=== PATIENT | male | born 1955 | race Caucasian/White ===

== ENCOUNTER 2021-05-10 23:14 | Inpatient (IN) | payer BC ==
--- OUTSIDE RECORDS SUMMARY | 2021-05-10 23:34 | XMS REPORT | Continuity of Care Document ---
:1955 Author Organization [facility] t Address [address] [place] [address] Care Team Providers Name Role Phone DOV Ty DR Primary Care Physician FANY SANTAMARIA Attending Clinician Unavailable Fany Santamaria MD Attending Clinician Petros Peck DO Attending Clinician Danette Bingham Attending Clinician Roger BELLO Attending Clinician Thomas Fajardo MD Attending Clinician Michael BELLO Attending Clinician Yenifer BELLO Attending Clinician Maura BELLO Attending Clinician Sidra Fowler CRNA Attending Clinician Singer SHEPHERD Attending Clinician Doctor Unassigned, Name Attending Clinician Unavailable Herminio BELLO Attending Clinician [facility] Attending Clinician Unavailable Juli Scott MD Attending Clinician Skylar BELLO Attending Clinician Kamaljit SCHERER M Attending Clinician Marco MD, S Attending Clinician Ramiro Lu CRNA Attending Clinician DR DOV Attending Clinician Unavailable LOLY Attending Clinician Unavailable DR DOV Attending Clinician Unavailable MICHAEL Admitting Clinician Unavailable Michael BELLO Admitting Clinician DR DOV Admitting Clinician Unavailable LOLY Admitting Clinician Unavailable Payers Payer Name Policy Type Policy Number Effective Date Expiration Date S shan IZQUIERDO BCBS BLUE [id number] 2020 ADVANTAGE O 00:00:00 Problems Condition Condition Condition Status Onset Resolution Last Treating Co mments Source Name Details Category Date Date Treatment Clinician Date Stroke Stroke Disease Active 2020-04 Univers determined determined 2-15 it y of by by 00:00: [place] clinical clinical 00 Medica l assessment assessment Br anch Right leg Right leg Disease Active 2020-04 Uni vers weakness weakness 2-11 ity of 00:00: [place] 00 Medical Branch E44.0 E44.0 Disease Active 2020-04 Univers Moderate Moderate 2-06 ity of protein protein 00:00: [place] calorie calorie 00 Medical malnutriti malnutriti Br anch on on Coffee Coffee Disease Active 2020-04 Overview: [facility] s ground ground 2-05 Formattin ity of emesis emesis 00:00: g of this [place] 00 note Medical might be Branch different from the original. 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 00:00: [place] advice advice 00 l (LUF/LI V/SA) Allergies, Adverse Reactions, Alerts Allergy Allergy Status Severity Reaction(s) Onset Inactive Treating Comm ents Source Name Type Date Date Clinician NO KNOWN Drug Active Univers ALLERGIE Class ity of S [facility] Family History Family Member Diagnosis Comments Start Date Stop Date Source Natural father Cancer [facility] Natural father High cholesterol Univ ersity [facility] [place] Natural father Hypertension Universi ty of [facility] Natural mother Cancer [facility] Natural mother Stroke [facility] Social History Social Habit Start Date Stop Date Quantity Comments Source History of tobacco Cigarette Smoker University use [facility] Exposure to Unable to assess Univers ity of SARS-CoV-2 (event) [facility] History [facility] o f Alcohol Frequency [facility] History [facility] o f Alcohol Std Drinks [facility] History [facility] o f Alcohol Binge [facility] Alcohol intake 2021-03-31 2021-03-31 Ex-drinker University 00:00:00 00:00:00 (finding) [facility] Education 2021-03-15 2021-03-15 21 University 00:00:00 00:00:00 [facility] Alcohol Comment 2021-03-02 2021-03-02 Socially Universit y of 00:00:00 00:00:00 [facility] Cigarettes smoked 2021-02-09 2021-02-09 Univers ity of current (pack per 00:00:00 00:00:00 [facility] ) - Reported Branch Cigarette 2021-02-09 2021-02-09 University of pack-years 00:00:00 00:00:00 [facility] Tobacco use and 2021-02-09 2021-02-09 Former user Universi ty of exposure 00:00:00 00:00:00 [facility] Sex [birth year] Universit y of 00:00:00 00:00:00 [facility] Smoking Status Start Date Stop Date Source Never smoker [facility] (LUF/SOUTH/SA) Former smoker 2021-02-09 00:00:00 2021-02-09 00:00:00 Universi ty of [place] [facility] Medications Ordered Filled Start Stop Current Ordering Indication Dosage Frequency Signature Comments Components Source Medication Medication Date Date Medication? Clinician (SIG) Name Name ascorbic 2020-04 Yes 500mg Take 500 Univ ers acid, 2-28 mg by ity of vitamin C, 17:17: mouth. [place] 500 mg 40 Medical tablet Branch cholecalcif 2020-04 Yes 5000U Take 5,000 Univers boy, 2-28 Units by ity of vitamin D3, 17:17: [place]. [place] 25 mcg 40 Medical (1,000 Branch unit) tablet ascorbic 2020-04 Yes 500mg Take 500 Univ ers acid, 2-28 mg by ity of vitamin C, 17:17: mouth. [place] 500 mg 40 Medical tablet Branch cholecalcif 2020-04 Yes 5000U Take 5,000 Univers boy, 2-28 Units by ity of vitamin D3, 17:17: mouth. [place] 25 mcg 40 Medical (1,000 Branch unit) tablet ascorbic 2020-04 Yes 500mg Take 500 Univ ers acid, 2-28 mg by ity of vitamin C, 17:17: mouth. [place] 500 mg 40 Medical tablet Branch cholecalcif 2020-04 Yes 5000U Take 5,000 Univers boy, 2-28 Units by ity of vitamin D3, 17:17: mouth. [place] 25 mcg 40 Medical (1,000 Branch unit) tablet ascorbic 2020-04 Yes 500mg Take 500 Univ ers acid, 2-28 mg by ity of vitamin C, 17:17: mouth. [place] 500 mg 40 Medical tablet Branch cholecalcif 2020-04 Yes 5000U Take 5,000 Univers boy, 2-28 Units by ity of vitamin D3, 17:17: mouth. [place] 25 mcg 40 Medical (1,000 Branch unit) tablet pantoprazol 2020-04 Yes [id number] 40mg Take 20 mL Univers e 2 mg/mL 2-28 through ity of oral 00:00: enteral [place] suspension 00 tube 2 Medical (two) Branch times daily. pantoprazol 2020-04 Yes [id number] 40mg Take 20 mL Univers e 2 mg/mL 2-28 through ity of oral 00:00: enteral [place] suspension 00 tube 2 Medical (two) Branch times daily. pantoprazol 2020-04 Yes [id number] 40mg Take 20 mL Univers e 2 mg/mL 2-28 through ity of oral 00:00: enteral [place] suspension 00 tube 2 Medical (two) Branch times daily. amLODIPine 2020-04- Yes [id number] 10mg Take 1 Univers 10 mg 2-28 12-24 tablet ity of tablet 00:00: 05:59 through [place] 00 :00 enteral Medical tube daily Branch for 360 days. polyethylen 2020-04- Yes [id number] 17g Take 1 Univers e glycol 2-28 12-24 Packet ity of 3350 17 00:00: 05:59 through [place] gram powder 00 :00 enteral Medic al tube daily Branch for 360 days. modafiniL 2020-04- Yes [id number] 100mg Take 1 Univers 100 mg 2-28 12-24 tablet ity of tablet 00:00: 05:59 through [place] 00 :00 enteral Medical tube daily Branch for 360 days. FLUoxetine 2020-04- Yes [id number] 10mg Take 2.5 Univers 20 mg/5 mL 2-28 12-24 mL through it y of (4 mg/mL) 00:00: 05:59 enteral [place] solution 00 :00 tube daily Medic al for 360 Branch days. docusate 50 2020-04- Yes [id number] 100mg Take 10 mL Univers mg/5 mL 2-28 12-24 through ity of solution 00:00: 05:59 enteral [place] 00 :00 tube daily Medical for 360 Branch days. amLODIPine 2020-04- Yes [id number] 10mg Take 1 Univers 10 mg 2-28 12-24 tablet ity of tablet 00:00: 05:59 through [place] 00 :00 enteral Medical tube daily Branch for 360 days. polyethylen 2020-04- Yes [id number] 17g Take 1 Univers e glycol 2-28 12-24 Packet ity of 3350 17 00:00: 05:59 through [place] gram powder 00 :00 enteral Medic al tube daily Branch for 360 days. modafiniL 2020-04- Yes [id number] 100mg Take 1 Univers 100 mg 2-28 12-24 tablet ity of tablet 00:00: 05:59 through [place] 00 :00 enteral Medical tube daily Branch for 360 days. FLUoxetine 2020-04- Yes [id number] 10mg Take 2.5 Univers 20 mg/5 mL 2- 12-24 mL through it y of (4 mg/mL) 00:00: 05:59 enteral [place] solution 00 :00 tube daily Medic al for 360 Branch days. docusate 50 2020-04- Yes [id number] 100mg Take 10 mL Univers mg/5 mL - 12-24 through ity of solution 00:00: 05:59 enteral [place] 00 :00 tube daily Medical for 360 Branch days. amLODIPine 2020-04- Yes [id number] 10mg Take 1 Univers 10 mg - 12-24 tablet ity of tablet 00:00: 05:59 through [place] 00 :00 enteral Medical tube daily Branch for 360 days. polyethylen 2020-04- Yes [id number] 17g Take 1 Univers e glycol 06-08-24 Packet ity of 3350 17 00:00: 05:59 through [place] gram powder 00 :00 enteral Medic al tube daily Branch for 360 days. modafiniL 2020-04- Yes [id number] 100mg Take 1 Univers 100 mg - 12-24 tablet ity of tablet 00:00: 05:59 through [place] 00 :00 enteral Medical tube daily Branch for 360 days. FLUoxetine 2020-04- Yes [id number] 10mg Take 2.5 Univers 20 mg/5 mL - 12-24 mL through it y of (4 mg/mL) 00:00: 05:59 enteral [place] solution 00 :00 tube daily Medic al for 360 Branch days. docusate 50 2020-04- Yes [id number] 100mg Take 10 mL Univers mg/5 mL - 12-24 through ity of solution 00:00: 05:59 enteral [place] 00 :00 tube daily Medical for 360 Branch days. pantoprazol 2020-04- No [id number] 40mg Take 20 mL Univers e 2 mg/mL 06-08-28 through ity of oral 00:00: 00:00 enteral [place] suspension 00 :00 tube 2 Medical (two) Branch times daily. amLODIPine 2020-04- No 10mg Take 10 mg Univers 10 mg 06-07-27 by mouth. ity of tablet 13:44: 00:00 [place] 38 :00 Medical Branch chlorthalid 2020-04- No 25mg Take 25 mg Univers one 25 mg 06-07- by mouth. ity of tablet 13:44: 00:00 [place] 38 :00 [facility] Branch metformin 2020-04- No 750mg Take 750 Un dariela ER 750 mg - 12-27 mg by ity of 24 hr 13:44: 00:00 mouth. [place] tablet 38 :00 Medical Branch clopidogreL 2020-04- No 75mg Take 75 mg Univers 75 mg 06-07- by mouth. ity of tablet 13:44: 00:00 [place] 38 :00 [facility] Branch carvediloL 2020-04- No 25mg Take 25 mg Univers (COREG) 25 06-07 by mouth 2 it y of mg tablet 13:44: 00:00 (two) [place] 37 :00 times Medical daily with [place] meals. atorvastati 2020-04- Yes [id number] 40mg Take 1 Univers n 40 mg 06-07 tablet ity of tablet 00:00: 05:59 through [place] 00 :00 enteral Medical tube at [place] bedtime for 360 days. carvedilol 2020-04- Yes [id number] 25mg Take 20 mL Univers 1.25 mg/mL 06-07 through ity o f oral 00:00: 05:59 enteral [place] suspension 00 :00 tube 2 Medical (two) Branch times daily with meals for 360 days. ticagrelor 2020-04- Yes [id number] 90mg Take 1 Univers 90 mg 06-07 tablet ity of tablet 00:00: 05:59 through [place] 00 :00 enteral Medical tube 2 Branch (two) times daily for 360 days. tamsulosin 2020-04- Yes [id number] .4mg Take 1 Univers 0.4 mg 24 06-07- capsule by ity of hr capsule 00:00: 05:59 mouth 2 [place] 00 :00 (two) Medical times Branch daily for 360 days. KCL 20 2020-04- Yes [id number] 20meq Take 15 mL Univers mEq/15 mL 06-07 through ity of solution 00:00: 05:59 enteral [place] 00 :00 tube 2 Medical (two) Branch times daily for 360 days. atorvastati 2020-04- Yes [id number] 40mg Take 1 Univers n 40 mg -06 04-23 tablet ity of tablet 00:00: 05:59 through [place] 00 :00 enteral Medical tube at Branch bedtime for 360 days. carvedilol 2020-04- Yes [id number] 25mg Take 20 mL Univers 1.25 mg/mL 06-07- through ity o f oral 00:00: 05:59 enteral [place] suspension 00 :00 tube 2 Medical (two) Branch times daily with meals for 360 days. ticagrelor 2020-04- Yes [id number] 90mg Take 1 Univers 90 mg - 12- tablet ity of tablet 00:00: 05:59 through [place] 00 :00 enteral Medical tube 2 Branch (two) times daily for 360 days. tamsulosin 2020-04- Yes [id number] .4mg Take 1 Univers 0.4 mg 24 06-07 capsule by ity of hr capsule 00:00: 05:59 mouth 2 [place] 00 :00 (two) Medical times Branch daily for 360 days. KCL 20 2020-04- Yes [id number] 20meq Take 15 mL Univers mEq/15 mL 06-07 through ity of solution 00:00: 05:59 enteral [place] 00 :00 tube 2 Medical (two) Branch times daily for 360 days. atorvastati 2020-04- Yes [id number] 40mg Take 1 Univers n 40 mg -06 04- tablet ity of tablet 00:00: 05:59 through [place] 00 :00 enteral Medical tube at Branch bedtime for 360 days. carvedilol 2020-04- Yes [id number] 25mg Take 20 mL Univers 1.25 mg/mL 06-07-23 through ity o f oral 00:00: 05:59 enteral [place] suspension 00 :00 tube 2 Medical (two) Branch times daily with meals for 360 days. ticagrelor 2020-04- Yes [id number] 90mg Take 1 Univers 90 mg - 12-23 tablet ity of tablet 00:00: 05:59 through [place] 00 :00 enteral Medical tube 2 Branch (two) times daily for 360 days. tamsulosin 2020-04- Yes [id number] .4mg Take 1 Univers 0.4 mg 24 06-07 capsule by ity of hr capsule 00:00: 05:59 mouth 2 [place] 00 :00 (two) Medical times Branch daily for 360 days. KCL 20 2020-04- Yes [id number] 20meq Take 15 mL Univers mEq/15 mL 06-07 through ity of solution 00:00: 05:59 enteral [place] 00 :00 tube 2 Medical (two) Branch times daily for 360 days. pantoprazol 2020-04- No [id number] 40mg Take 20 mL Univers e 2 mg/mL 06-07 through ity of oral 00:00: 00:00 enteral [place] suspension 00 :00 tube 2 Medical (two) Branch times daily for 360 days. pantoprazol 2020-04 Yes 40mg 40 mg, Univ ers e 06-06 Enteral, ity of (PROTONIX) 02:00: BID, First [place] 2 mg/mL 00 dose on Medical oral Sat Branch suspension 04/04/21 40 mg at 2000, Until Discontinu ed, Routine ticagrelor 2020-04 Yes 90mg 90 mg, Unive rs (BRILINTA) 06-04 Oral, BID, ity of tablet 90 02:00: First dose [place] mg 00 on Evi Medical 04/02/21 Branch at 2000, Until Discontinu ed, Routine clopidogreL 2020-04 Yes 75mg 75 mg, Univ ers (PLAVIX) 06-01 Enteral, ity of tablet 75 23:00: DAILY AT [place] mg 00 1700, Medical First dose Branch on Tue03/31/21 at 1700, Until Discontinu ed, Routine clopidogreL 2020-04- No 75mg 75 mg, Uni vers (PLAVIX) 06-01 Enteral, ity of tablet 75 23:00: 21:08 DAILY AT [place] mg 00 :26 1700, Medical First dose Branch on Tue03/31/21 at 1700, Until Discontinu ed, Routine modafiniL 2020-04 Yes 100mg 100 mg, Univ ers (PROVIGIL) 06-01 Enteral, ity o f tablet 100 15:00: DAILY, [place] mg 00 First dose Medical (after Branch last modificati on) on Tue03/31/21 at 0900, Until Discontinu ed, Routine
film crew member approving Non-formul hank medication : JIA SANTAMARIA RA
R dwight for non-formul hank use: SPECIFIC INDICATION FOR NONFORMULA RY PRODUCT modafiniL 2020-04 Yes 100mg 100 mg, Univ ers (PROVIGIL) 2- Enteral, ity o f tablet 100 15:00: DAILY, [place] mg 00 First dose Medical (after Branch last modificati on) on Tue03/31/21 at 0900, Until Discontinu ed, Routine
film crew member approving Non-formul hank medication : JIA SANTAMARIA RA
R dwight for non-formul hank use: SPECIFIC INDICATION FOR NONFORMULA RY PRODUCT magnesium 2020-04 2g 2 g, IV Univ ers sulfate in 05-31 Piggyback, it y of water 2 14:00: 13:35 ONCE, 1 [place] gram/50 mL 00 :00 dose, On Medic al (4 %) Mon Branch infusion 2 03/30/21 g at 0800, Routine carvediloL 2020-04 Yes 25mg Take 25 mg U nivers (COREG) 25 2-20 by mouth 2 ity of mg tablet 13:14: (two) [place] 23 times Medical daily with Branch meals. NaCl 0.9% 2020-04 Yes IV Univers (NS) 1000 - Infusion, ity o f mL + KCL 20 15:45: at 100 [place] mEq 00 mL/hr, Medical CONTINUOUS Branch , Starting on Tue03/29/21 at 0945, Until Discontinu ed, Routine NaCl 0.9% 2020-04 Yes IV Univers (NS) 1000 2- Infusion, ity o f mL + KCL 20 15:45: at 100 [place] mEq 00 mL/hr, Medical CONTINUOUS Branch , Starting on Tue03/29/21 at 0945, Until Discontinu ed, Routine iron 2020-04 No 1000mg 1,000 mg, Unive rs dextran -29 03- IV ity of (INFED) 14:45: 19:30 Infusion, [place] 1,000 mg in 00 :00 ONCE, 1 Medic al NaCl 0.9% dose, On Branch (NS) 500 mL Sun IV infusion 03/29/21 at 0845, Administer over 1.5 Hours, 500 mL pantoprazol 2020-04 Yes 8mg/h 8 mg/hr Un dariela e 18 (50 ity of (PROTONIX) 05:00: mL/hr), IV [place] 80 mg in 00 Infusion, Medica l NaCl 0.9% CONTINUOUS Bran ch (NS) 500 mL , Starting infusion on Tue03/27/21 at 2300 pantoprazol 2020-04- No 8mg/h 8 mg/hr U nivers e 05-29 (50 ity of (PROTONIX) 05:00: 16:19 mL/hr), IV [place] 80 mg in 00 :21 Infusion, Medica l NaCl 0.9% CONTINUOUS Bran ch (NS) 500 mL , Starting infusion on Tue03/27/21 at 2300 NaCl 0.9% 2020-04 No 500mL at 999 Univ ers (NS) bolus 05-29 mL/hr, 500 it y of infusion 04:00: 03:31 mL, IV [place] 500 mL 00 :00 Piggyback, Medical ONCE, 1 Branch dose, On Tue03/27/21 at 2200, STAT pantoprazol 2020-04 No 40mg 40 mg, Uni vers e 05-29 Slow IV ity of (PROTONIX) 03:00: 03:47 Push, [place] injection 00 :01 Q12H, Medical 40 mg First dose Branch on Tue03/27/21 at 2100, Until Discontinu ed iopamidol 2020-04- No [id number] 90mL 90 mL, Univers (ISOVUE 05-28 Intravenou ity o f 300-500 mL) 22:00: 20:07 s, ONCE, 1 [place] injection 00 :00 dose, On Medica l 90 mL Fri Branch 03/27/21 at 1600, Routine famotidine 2020-04- No 40mg 40 mg, IV U nivers (PEPCID) 40 05-27 Piggyback, i ty of mg in NaCl 20:30: 16:03 Q24H, [place] 0.9% (NS) 00 :11 First dose Medi jaspal infusion on [facility] Branch 03/26/21 at 1430, Until Discontinu ed, Administer over 30 Minutes, 100 mL glycerin/mi 2020-04 225mL 225 mL, U nivers neral oil -26 03- Rectal, ity of (AGLO 20:30: 21:32 ONCE, 1 [place] ENEMA) 00 :00 dose, On Medical ([facility]OUNDED [facility] ) Enem 225 03/26/21 mL at 1430, Routine FLUoxetine 2020-04 Yes 10mg 10 mg, Unive rs (PROZAC) 20 2-16 Enteral, ity of mg/5 mL (4 15:00: DAILY, [place] mg/mL) 00 First dose Medical solution 10 (after Branch mg last modificati on) on [facility] 03/26/21 at 0900, Until Discontinu ed, Routine FLUoxetine 2020-04 Yes 10mg 10 mg, Unive rs (PROZAC) 20 2-16 Enteral, ity of mg/5 mL (4 15:00: DAILY, [place] mg/mL) 00 First dose Medical solution 10 (after Branch mg last modificati on) on [facility] 03/26/21 at 0900, Until Discontinu ed, Routine clopidogreL 2020-04 75mg 75 mg, Uni vers (PLAVIX) 2-16 -16 Enteral, ity of tablet 75 15:00: 20:56 DAILY, [place] mg 00 :58 First dose Medical (after Branch last modificati on) on [facility] 03/26/21 at 0900, Until Discontinu ed, Routine tamsulosin 2020-04 Yes .4mg 0.4 mg, Univ ers (FLOMAX) 2-16 Oral, BID, ity o f capsule 0.4 02:00: First dose [place] mg 00 (after Medical last Branch modificati on) on Tue03/25/21 at 2000, Until Discontinu ed, Routine KCL 20 2020-04 Yes 20meq 20 mEq, Univers mEq/15 mL 2-16 Enteral, ity of solution 20 02:00: BID, First [place] mEq 00 dose Medical (after Branch last modificati on) on Tue03/25/21 at 2000, Until Discontinu ed, Routine tamsulosin 2020-04 Yes .4mg 0.4 mg, Univ ers (FLOMAX) 2-16 Oral, BID, ity o f capsule 0.4 02:00: First dose [place] mg 00 (after Medical last Branch modificati on) on Tue03/25/21 at 1999, Until Discontinu ed, Routine KCL 20 2020-04 Yes 20meq 20 mEq, Univers mEq/15 mL 2-16 Enteral, ity of solution 20 02:00: BID, First [place] mEq 00 dose Medical (after Branch last modificati on) on Tue03/25/21 at 1999, Until Discontinu ed, Routine gadoteridol 2020-04- No [id number] .2mL/kg 14.5 mL Univers (PROHANCE-1 2-15 12-15 (0.2 mL/kg i ty of 5 mL) 02:00: 02:00 ?72.5 kg), [place] injection 00 :00 Intravenou Medi jaspal 14.5 mL s, ONCE, 1 Branch dose, On Tue03/24/21 at 1999, Routine docusate 2020-04 Yes 100mg 100 mg, Unive rs (COLACE) 50 2-14 Enteral, ity of mg/5 mL 15:00: DAILY, [place] solution 00 First dose Medic al 100 mg on Tue03/24/21 at 0900, Until Discontinu ed, Routine polyethylen 2020-04 Yes 17g 17 g, Unive rs e glycol 2-14 Enteral, ity of 3350 powder 15:00: DAILY, [place] 17 g 00 First dose Medical (after Branch last modificati on) on Tue03/24/21 at 0900, Until Discontinu ed, Routine aspirin 2020-04 Yes 81mg 81 mg, Univers chewable 2-14 Enteral, ity of tablet 81 15:00: DAILY, [place] mg 00 First dose Medical (after Branch last modificati on) on Tue03/24/21 at 0900, Until Discontinu ed, Routine amLODIPine 2020-04 Yes 10mg 10 mg, Unive rs (NORVASC) 2-14 Enteral, ity of tablet 10 15:00: DAILY, [place] mg 00 First dose Medical (after Branch last modificati on) on Tue03/24/21 at 0900, Until Discontinu ed, Routine docusate 2020-04 Yes 100mg 100 mg, Unive rs (COLACE) 50 2-14 Enteral, ity of mg/5 mL 15:00: DAILY, [place] solution 00 First dose Medic al 100 mg on Tue03/24/21 at 0900, Until Discontinu ed, Routine polyethylen 2020-04 Yes 17g 17 g, Unive rs e glycol 2-14 Enteral, ity of 3350 powder 15:00: DAILY, [place] 17 g 00 First dose Medical (after Branch last modificati on) on Tue03/24/21 at 0900, Until Discontinu ed, Routine amLODIPine 2020-04 Yes 10mg 10 mg, Unive rs (NORVASC) 2-14 Enteral, ity of tablet 10 15:00: DAILY, [place] mg 00 First dose Medical (after Branch last modificati on) on Tue03/24/21 at 0900, Until Discontinu ed, Routine aspirin 2020-04- No 81mg 81 mg, Univers chewable 05-25- Enteral, ity of tablet 81 15:00: 21:08 DAILY, [place] mg 00 :26 First dose Medical (after Branch last modificati on) on Tue03/24/21 at 0900, Until Discontinu ed, Routine atorvastati 2020-04 Yes 40mg 40 mg, Univ ers n (LIPITOR) 2-14 Enteral, ity of tablet 40 03:00: QHS, First [place] mg 00 dose Medical (after Branch last modificati on) on Tue03/23/21 at 2100, Until Discontinu ed, Routine atorvastati 2020-04 Yes 40mg 40 mg, Univ ers n (LIPITOR) 2-14 Enteral, ity of tablet 40 03:00: QHS, First [place] mg 00 dose Medical (after Branch last modificati on) on Tue03/23/21 at 2100, Until Discontinu ed, Routine KCL 20 2020-04- No 20meq 20 mEq, Univer s mEq/15 mL 05-25- Oral, BID, ity of solution 20 02:00: 21:57 First dose [place] mEq 00 :56 on [facility] 03/23/21 Branch at 2000, Until Discontinu ed, Routine carvedilol 2020-04 Yes 25mg 25 mg, Unive rs (COREG) 2-13 Enteral, ity of 1.25 mg/mL 23:00: BID MEALS, [place] oral 00 First dose Medical suspension on [facility] Branch 25 mg 03/23/21 at 1700, Until Discontinu ed, Routine carvedilol 2020-04 Yes 25mg 25 mg, Unive rs (COREG) 2-13 Enteral, ity of 1.25 mg/mL 23:00: BID MEALS, [place] oral 00 First dose Medical suspension on Tue [place] 25 mg 03/23/21 at 1700, Until Discontinu ed, Routine acetaminoph 2020-04 Yes 650mg 650 mg, Un dariela en -13 Enteral, ity of (TYLENOL) 21:10: Q6HPRN, [place] tablet 650 48 Starting Medic al mg on Tue [place] 03/23/21 at 1510, Until Discontinu ed, Routine, Pain (scale 1-3) acetaminoph 2020-04 Yes 650mg 650 mg, Un dariela en 05-24 Enteral, ity of (TYLENOL) 21:10: Q6HPRN, [place] tablet 650 48 Starting Medic al mg on Tue Branch 03/23/21 at 1510, Until Discontinu ed, Routine, Pain (scale 1-3) sulfur 2020-04- No [id number] 5mL 5 mL, Univ ers hexafluorid 05-24 Intravenou i ty of e microsphr 18:00: 16:38 s, ONCE, 1 [place] (LUMASON) 00 :00 dose, On Medica l injection 5 Tue Branch mL 03/23/21 at 1200, Routine
film crew member approving Restricted medication : EARL CORBIN Saline 2020-04- No [id number] 6mL 6 mL, Univ ers Bubble 05-24 Injection, ity of Study 17:57: 22:00 SEE-INSTRU [place] 36 :25 CTIONS, Medical Starting Branch on Tue03/23/21 at 1157, Until Tue03/30/21 at 1600, Routine carvediloL 2020-04 Yes 25mg Take 25 mg U nivers (COREG) 25 2-12 by mouth 2 ity of mg tablet 21:38: (two) [place] 37 times Medical daily with Branch meals. iopamidol 2020-04- No [id number] 80mL 80 mL, Univers (ISOVUE 05-23 [id number] Intravenou ity of 370-500 mL) 17:30: 17:30 s, ONCE, 1 [place] injection 00 :00 dose, On Medica l 80 mL Sun [place] 03/22/21 at 1130, Routine magnesium 2020-04- No 400mg 400 mg, Uni vers oxide 05-20 Oral, BID, ity of (MAG-OX 02:00: 21:11 First dose [place] 400) tablet 00 :05 (after Medica l 400 mg last Branch modificati on) on Tue03/18/21 at 2000, Until Discontinu ed, Routine KCL 2020-04- No 40meq 40 mEq, Univers (KLOR-CON 05-18 Oral, BID, ity of M20) tablet 02:00: 21:11 First dose [place] 40 mEq 00 :05 (after Medical last Branch modificati on) on Tue03/16/21 at 2000, Until Discontinu ed, Routine Sliding 2020-04 Yes [facility] ers Scale 2-06 us, TIDAC, ity of Insulin-Reg 22:30: First dose [place] ular + Fsbg 00 on [facility] Medica l Testing 03/16/21 at Branch 1630, Until Discontinu ed, Routine Sliding 2020-04 Yes [facility] ers Scale 2-06 us, TIDAC, ity of Insulin-Reg 22:30: First dose [place] ular + Fsbg 00 on [facility] Medica l Testing 03/16/21 at Branch 1630, Until Discontinu ed, Routine amLODIPine 2020-04- No 10mg 10 mg, Univ ers (NORVASC) 05-17 Oral, ity of tablet 10 21:30: 21:11 DAILY, [place] mg 00 :06 First dose Medical on [facility] 03/16/21 at 1530, Until Discontinu ed, Routine KCL 2020-04- No 40meq 40 mEq, Univers (KLOR-CON 05-17- Oral, ity of M20) tablet 21:15: 21:41 [place]CE[place] 1 [place] 40 [place]Eq 00 :00 dose, On Medical [facility] 03/16/21 at 1515, Routine polyethylen 2020-04- No 17g 17 g, Univ ers e glycol 05-17 Oral, ity of 3350 powder 18:00: 21:11 DAILY, [place] 17 g 00 :06 First dose Medical on [facility] 03/16/21 at 1200, Until Discontinu ed, Routine glucagon 2020-04 Yes 1mg 1 mg, Univers (GLUCAGEN 05-17 Intramuscu ity of DIAGNOSTIC 17:50: lar, PRN, [place] KIT) 18 Starting Medical injection 1 on [facility] 03/16/21 at 1150, Until Discontinu ed, RODRIGO, Blood Glucose < or = 70 mg/dL and patient is unable to swallow or has mental changes. dextrose 50 2020-04 Yes 25mL 25 mL, Univ ers % in water 05-17 Slow IV ity of (D50W) 17:50: Push, PRN, [place] injection 18 Starting Medica l 25 mL on [facility] 03/16/21 at 1150, Until Discontinu ed, RODRIGO, Blood Glucose < or = 70 mg/dL and patient is unable to swallow or has mental status changes. glucagon 2020-04 Yes 1mg 1 mg, Univers (GLUCAGEN 05-17 Intramuscu ity of DIAGNOSTIC 17:50: [place], PRN, [place] KIT) 18 Starting Medical injection 1 on [facility] 03/16/21 at 1150, Until Discontinu ed, RODRIGO, Blood Glucose < or = 70 mg/dL and patient is unable to swallow or has mental changes. dextrose 50 2020-04 Yes 25mL 25 mL, Univ ers % in water -06 Slow IV ity of (D50W) 17:50: Push, PRN, [place] injection 18 Starting Medica l 25 mL on [facility] 03/16/21 at 1150, Until Discontinu ed, RODRIGO, Blood Glucose < or = 70 mg/dL and patient is unable to swallow or has mental status changes. potassium 2020-04 No 10meq 10 mEq, IV Univers chloride in 05-17 Piggyback, i ty of water 10 16:00: 21:00 Q1H, 4 [place] mEq/100 mL 00 :00 doses, Medical RTU 10 mEq First dose Bra nch on Tue03/16/21 at 1000, Last dose on Tue03/16/21 at 1300, Administer over 60 Minutes, 100 mL ondansetron 2020-04 Yes 4mg 4 mg, Slow Univers (ZOFRAN 2-06 IV Push, ity of (PF)) 15:26: Q6HPRN, [place] injection 4 25 Starting Medi jaspal mg on [facility] 03/16/21 at 0926, Until Discontinu ed, Routine, Nausea and Vomiting (N/V) ondansetron 2020-04 Yes 4mg 4 mg, Slow Univers (ZOFRAN 2-06 IV Push, ity of (PF)) 15:26: Q6HPRN, [place] injection 4 25 Starting Medi jaspal mg on [facility] 03/16/21 at 0926, Until Discontinu ed, Routine, Nausea and Vomiting (N/V) clopidogreL 2020-04 No 75mg 75 mg, Uni vers (PLAVIX) 05-1715 Oral, ity of tablet 75 15:00: 21:57 DAILY, [place] mg 00 :56 First dose Medical on [facility] 03/16/21 at 0900, Until Discontinu ed, Routine aspirin 2020-04 No 81mg 81 mg, Univers chewable 05-1713 Oral, ity of tablet 81 15:00: 21:11 DAILY, [place] mg 00 :06 First dose Medical on [facility] 03/16/21 at 0900, Until Discontinu ed, Routine magnesium 2020-04 No 400mg 400 mg, Uni vers oxide 05-17-08 Oral, ity of (MAG-OX 15:00: 14:45 DAILY, [place] 400) tablet 00 :27 First dose Me dical 400 mg on [facility] 03/16/21 at 0900, Until Discontinu ed, Routine docusate 2020-04 No 100mg 100 mg, Univ ers (COLACE) 05-17-14 Oral, BID, ity of capsule 100 14:00: 04:23 First dose [place] mg 00 :18 on [facility] 03/16/21 at Branch 0800, Until Discontinu ed, Routine polyethylen 2020-04 No 17g 17 g, Univ ers e glycol 05-17 Oral, ity of 3350 powder 10:30: 11:12 ONCE, 1 [place] 17 g 00 :00 dose, On Medical [facility] Branch 03/16/21 at 0445, Routine cefTRIAXone 2020-04- No 1000mg 1,000 mg, Univers (ROCEPHIN) 05-17 IV ity of 1,000 mg in 07:30: 19:34 Piggyback, [place] NaCl 0.9% 00 :09 Q24H ABX, Medic al (NS) 50 mL First dose Bra [facility] MINI-BAG on [facility] 03/16/21 at 0130, Until Discontinu ed, Administer over 30 Minutes, 50 mL
Reas on for Anti-Infec tive: Empiric Therapy for Suspected Infection< br>Empiric Therapy Site: Blood
D uration of therapy: 7 days NaCl 0.9% 2020-04 IV Univers (NS) 1000 05-17 Infusion, ity of mL + KCL 20 06:15: 15:32 [place] 50 [place] mEq 00 :30 mL/hr, [facility] Branch , Starting on [facility] 03/16/21 at 0015, Until [place] 03/29/21 at 0932, Routine iohexol 2020-04- No [id number] 120mL 120 mL, Univers (OMNIPAQUE 05-17 Intravenou it y of 350 04:45: 04:19 s, ONCE, 1 [place] BULK-100 00 :00 dose, On [facility]) [facility] injection 03/15/21 at 120 mL 2245, Routine atorvastati 2020-04- No 40mg 40 mg, Uni vers n (LIPITOR) 05-1713 Oral, QHS, i ty of tablet 40 03:00: 21:11 First dose [place] mg 00 :06 on [facility] 03/15/21 at Branch 2100, Until Discontinu ed, Routine tamsulosin 2020-04- No .4mg 0.4 mg, Uni vers (FLOMAX) 05-17-15 Oral, BID, ity of capsule 0.4 02:45: 21:57 First dose [place] mg 00 :56 on [facility] 03/15/21 at Branch 2045, Until Discontinu ed, Routine enoxaparin 2020-04- No 30mg 30 mg, Univ ers (LOVENOX) 05-16 Subcutaneo ity of injection 23:00: 22:00 us, DAILY, [place] 30 mg 00 :14 First dose Medical on [place] Branch 03/15/21 at 1700, Until Discontinu ed, Routine carvediloL 2020-04 No 25mg 25 mg, Univ ers (COREG) 05-16 Oral, BID ity of tablet 25 23:00: 21:11 MEALS, [place] mg 00 :05 First dose Medical on [place] Branch 03/15/21 at 1700, Until Discontinu ed, Routine NaCl 0.9% 2020-04 No IV Univers (NS) 1000 05-16 Infusion, ity of mL + KCL 20 22:00: 06:13 at 80 [place] mEq 00 :49 mL/hr, Medical CONTINUOUS Branch , Starting on 03/15/21 at 1600, Until 03/16/21 at 0013, Routine Potassium 2020-04 No 40meq 40 mEq, Uni vers Bicarb-Citr 05-16 Oral, ity of ic Acid 20:45: 19:42 ONCE, 1 [place] (EFFER-K) 00 :00 dose, On Medica l effervescen [place] Branch t tablet 40 03/15/21 at mEq 1445, Routine magnesium 2020-04- No 2g 2 g, IV Univ ers sulfate in 05-16 Piggyback, it y of water 2 20:00: 19:13 ONCE, 1 [place] gram/50 mL 00 :00 dose, On Medic al (4 %) [place] Branch infusion 2 03/15/21 at g 1400, Routine amLODIPine 2020-04 Yes 10mg Take 10 mg U nivers 10 mg 2-05 by mouth. ity of tablet 16:26: [place] 38 Medical Branch ascorbic 2020-04 Yes 500mg Take 500 Univ ers acid, 2-05 mg by ity of vitamin C, 16:26: mouth. [place] 500 mg 38 Medical tablet Branch cholecalcif 2020-04 Yes 5000U Take 5,000 Univers boy, 2-05 Units by ity of vitamin D3, 16:26: mouth. [place] 25 mcg 38 Medical (1,000 Branch unit) tablet chlorthalid 2020-04 Yes 25mg Take 25 mg Univers one 25 mg 2-05 by mouth. ity o f tablet 16:26: [address] metformin 2020-04 Yes 750mg Take 750 Uni vers ER 750 mg 2-05 mg by ity of 24 hr 16:26: mouth. [address] Branch clopidogreL 2020-04 Yes 75mg Take 75 mg Univers 75 mg 2-05 by mouth. ity of tablet 16:26: [address] amLODIPine 2020-04 Yes 10mg Take 10 mg U nivers 10 mg 2-05 by mouth. ity of tablet 16:26: [address] ascorbic 2020-04 Yes 500mg Take 500 Univ ers acid, 2-05 mg by ity of vitamin C, 16:26: mouth. [place] [address] [place] [address] Branch cholecalcif 2020-04 Yes 5000U Take 5,000 Univers boy, 2-05 Units by ity of vitamin D3, 16:26: [place]. [place] 25 mcg Medical (1,000 Branch unit) tablet chlorthalid 2020-04 Yes 25mg Take 25 mg Univers one 25 mg 2-05 by mouth. ity o f tablet 16:26: [address] metformin 2020-04 Yes 750mg Take 750 Uni vers ER 750 mg 2-05 mg by ity of 24 hr 16:26: mouth. [address] clopidogreL 2020-04 Yes 75mg Take 75 mg Univers 75 mg 2-05 by mouth. ity of tablet 16:26: [address] aspirin-dip 2020-04- No [id number] 1{capsu Take 1 Univers yridamole 05-02 [id number] le} capsule by i ty of 25-200 mg 00:00: 00:00 mouth 2 [place] per 12 hr 00 :00 (two) Medical capsule times [place] daily for 30 days. aspirin-dip 2020-04- Yes [id number] 1{capsu Take 1 Univers yridamole 05-02 [id number] le} capsule by i ty of 25-200 mg 00:00: 05:59 mouth 2 [place] per 12 hr 00 :00 (two) Medical capsule times [place] daily for 30 days. aspirin-dip 2020-04- Yes [id number] 1{capsu Take 1 Univers yridamole 05-02 [id number] le} capsule by i ty of 25-200 mg 00:00: 05:59 mouth 2 [place] per 12 hr 00 :00 (two) Medical capsule times Branch daily for 30 days. atorvastati 2020-04 Yes [id number] 40mg Take 1 Univers n 40 mg 04-12 tablet by ity of tablet 00:00: mouth at [place] [address] bedtime. Medical Branch atorvastati 2020-04 Yes [id number] 40mg Take 1 Univers n 40 mg 02 tablet by ity of tablet 00:00: mouth at [place] 00 bedtime. Medical Branch atorvastati 2020-04- No [id number] 40mg Take 1 Univers n 40 mg 04-12 tablet by ity of tablet 00:00: 00:00 mouth at [place] 00 :00 bedtime. [facility] Vital Signs Vital Name Observation Time Observation Value Comments Source Systolic blood 2021-04-07 20:55:00 143 mm[Hg] Univer sity of [facility] Diastolic blood 2021-04-07 20:55:00 71 mm[Hg] Unive rsity [facility] Heart rate 2021-04-07 20:55:00 83 /min [facility] Body temperature 2021-04-07 20:55:00 36 Marlee [facility] Respiratory rate 2021-04-07 20:55:00 18 /min [facility] Oxygen saturation in 2021-04-07 20:55:00 98 /[facility] Arterial blood by [facility] [place] [facility] Pulse oximetry [place] Body height 2021-03-30 14:05:00 177.8 cm [facility] Body weight 2021-03-30 14:05:00 72.122 kg [facility] BMI 2021-03-30 14:05:00 22.81 kg/m2 [facility] Systolic blood 2021-03-30 14:05:00 114 mm[Hg] Univer sity of [facility] Diastolic blood 2021-03-30 14:05:00 78 mm[Hg] Unive rsity [facility] Heart rate 2021-03-30 14:05:00 84 /min [facility] Body temperature 2021-03-30 14:05:00 36.22 Marlee Univ ersity of [place] [facility] Respiratory rate 2021-03-30 14:05:00 12 /min Univ ersity of [place] [facility] Body height 2021-03-30 14:05:00 177.8 cm Universi ty of [place] [facility] Body weight 2021-03-30 14:05:00 72.122 kg Universi ty of [place] [facility] [place] BMI 2021-03-30 14:05:00 22.81 kg/m2 Universi ty of [place] [facility] Oxygen saturation in 2021-03-30 14:05:00 100 /min University of Arterial blood by [facility] [place] [facility] Pulse oximetry Branch Height 2021-01-07 12:08:00 177.8 CM Weight 2021-01-07 12:08:00 80.8 KG Systolic blood 2021-03-29 17:57:00 119 mm[Hg] Univer sity of pressure [place] [facility] [place] Diastolic blood 2021-03-29 17:57:00 57 mm[Hg] Unive rsity of pressure [place] [facility] [place] Heart rate 2021-03-29 17:57:00 87 /min Universi ty of [place] [facility] Body temperature 2021-03-29 17:57:00 36.67 Marlee [facility] ersity of [place] [facility] Respiratory rate 2021-03-29 17:57:00 16 /min [facility] ersity of [place] [facility] [place] Oxygen saturation in 2021-03-29 17:57:00 96 /min University of Arterial blood by [facility] [place] [facility] Pulse oximetry Branch Body weight 2021-03-20 09:51:00 72.485 kg Universi ty of [place] [facility] [place] BMI 2021-03-20 09:51:00 22.93 kg/m2 Universi ty [facility] [place] [facility] Body height 2021-03-15 21:31:00 177.8 cm Universi ty of [place] [facility] Pulse Rate 2021-01-07 12:08:00 78 /min [facility] (LUF/[facility]) Respiratory Rate 2021-01-07 12:08:00 18 /min [facility] (LUF/[facility]) O2% BldC Oximetry 2021-01-07 12:08:00 96 % [facility] (LUF/SOUTH/SA) BP Systolic 2021-01-07 12:08:00 151 mm[Hg] [facility] (LUF/SOUTH/SA) BP Diastolic 2021-01-07 12:08:00 84 mm[Hg] [facility] (LUF/SOUTH/SA) Height 2021-01-07 12:08:00 70 [in_i] [facility] (F/SOUTH/SA) Weight 2021-01-07 12:08:00 80.8 kg [facility] (LUF/SOUTH/SA) BMI (Body Mass 2021-01-07 12:08:00 25.7 kg/m2 [facility] (F/SOUTH/SA) Body Temperature 2021-01-07 12:08:00 97.4 [degF] [facility] (F/SOUTH/SA) Procedures Procedure Date / Time Performing Source Performed Clinician POCT GLUCOSE (AUTOMATED) 2021-04-07 Andres Concepcionun Univers ity of 17:17:00 [facility] COVID-19 (ID NOW RAPID TESTING) 2021-04-07 Anisa Caruso [place] of 17:11:00 [facility] LAB ONLY COVID INTERPRETATION 2021-04-07 Anisa Caruso iversity of 17:11:00 [facility] POCT GLUCOSE (AUTOMATED) 2021-04-07 Andres Concepcionun Univers ity of 13:14:00 [facility] POCT GLUCOSE (AUTOMATED) 2021-04-06 Andres Concepcionun Univers ity of 22:47:00 [facility] POCT GLUCOSE (AUTOMATED) 2021-04-06 Michael Marcel Univers ity of 16:55:00 [facility] POCT GLUCOSE (AUTOMATED) 2021-04-06 Andres Concepcionun Univers ity of 14:05:00 [facility] BASIC METABOLIC PANEL (NA, K, CL, 2021-04-06 Rob Bates [facility] of CO2, GLUCOSE, BUN, CREATININE, 10:54:[facility] CBC WITH DIFF 2021-04-06 Edwin Bates [facility]:53[facility] 2021-04-05 Michael, Marcel Univers ity of 21:39:00 [facility] POCT GLUCOSE (AUTOMATED) 2021-04-05 Michael, Marcel Univers ity of 18:09:00 [facility] POCT GLUCOSE (AUTOMATED) 2021-04-05 Michael, Marcel Univers ity of 14:03:00 [facility] POCT GLUCOSE (AUTOMATED) 2021-04-04 Michael, Marcel Univers ity of 21:40:00 [facility] POCT GLUCOSE (AUTOMATED) 2021-04-04 Michael, Marcel Univers ity of 18:07:00 [facility] POCT GLUCOSE (AUTOMATED) 2021-04-04 Michael, Marcel Univers ity of 14:07:00 [facility] POCT GLUCOSE (AUTOMATED) 2021-04-04 Michael, Marcel Univers ity of 01:40:00 [facility] POCT GLUCOSE (AUTOMATED) 2021-04-03 Michael, Marcel Univers ity of 22:51:00 [facility] CBC WITH DIFF 2021-04-03 [facility], [facility] of 21:10:00 [facility] POCT GLUCOSE (AUTOMATED) 2021-04-03 Michael, Marcel Univers ity of 18:46:00 [facility] POCT GLUCOSE (AUTOMATED) 2021-04-03 Michael, Marcel Univers ity of 13:31:00 [facility] POCT GLUCOSE (AUTOMATED) 2021-04-02 Michael, Marcel Univers ity of 23:29:00 [facility] BASIC METABOLIC PANEL (NA, K, CL, 2021-04-02 Beba, Pank [facility] of CO2, GLUCOSE, BUN, CREATININE, 23:10:00 T [facility]) Branch CBC WITH DIFF 2021-04-02 Beba, [facility] of 23:10:00 [facility] POCT GLUCOSE (AUTOMATED) 2021-04-02 Michael, Marcel Univers ity of 19:11:00 [facility] DUPLEX VENOUS LEGS BILATERAL - BY 2021-04-02 Carlos Yoder [facility] of VASCULAR LAB 15:31:56 [facility] POCT GLUCOSE (AUTOMATED) 2021-04-02 Andres Concepcionun Univers ity of 13:39:00 [facility] POCT GLUCOSE (AUTOMATED) 2021-04-01 MichaelAndres rubioun Univers ity of 21:27:00 [facility] POCT GLUCOSE (AUTOMATED) 2021-04-01 Michael, Marcel Univers ity of 17:04:00 [facility] POCT GLUCOSE (AUTOMATED) 2021-04-01 MichaelAndresun Univers ity of 13:35:00 [facility] MAGNESIUM 2021-04-01 [facility] of 10:40:00 [facility] BASIC METABOLIC PANEL (NA, K, CL, 2021-04-01 [facility] of CO2, GLUCOSE, BUN, CREATININE, 10:40:00 T [facility]) Branch CBC WITH DIFF 2021-[facility] 10:40:00 [facility] POCT GLUCOSE (AUTOMATED) 2021-03-31 Michael, Marcel Univers ity of 21:12:00 [facility] POCT GLUCOSE (AUTOMATED) 2021-03-31 MichaelAndresun Univers ity of 17:06:00 [facility] POCT GLUCOSE (AUTOMATED) 2021-03-31 MichaelAndresun Univers ity of 17:06:00 [facility] IR SPINAL LUMBAR PUNCTURE 2021-03-31 Fortino Yoder Uni versity of DIAGNOSTIC 16:50:00 [facility] IR SPINAL LUMBAR PUNCTURE 2021-03-31 Fortino Yoder Uni versity of DIAGNOSTIC 16:50:00 [facility] MISCELLANEOUS SEND OUT TEST 2021-03-31 Fortino Yoder U niversity of 16:38:00 [facility] CYTO SPINAL FLUID 2021-03-31 [facility] of 16:33:00 [facility] CEREBROSPINAL FLUID PROTEIN 2021-03-31 Fortino Yoder U niversity of 16:31:00 [facility] CEREBROSPINAL FLUID GLUCOSE 2021-03-31 Fortino Yoder U niversity of 16:31:00 [facility] LACTIC ACID CSF 2021-03-31 Beba, [facility] of 16:31:00 [facility] LDH CSF 2021-03-31 Beba, [facility] of 16:31:00 [facility] BODY FLUID DIRECT COUNT 2021-03-31 [facility] of 16:31:00 [facility] EXTRA TUBE CSF 2021-03-31 [facility] of 16:31:00 [facility] CSF CULTURE 2021-03-31 [facility] of 16:31:00 [facility] MENINGITIS/ENCEPHALITIS PANEL BY 2021-03-31 Beba, [facility] of PCR 16:31:00 [facility] CEREBROSPINAL FLUID PROTEIN 2021-03-31 Fortino Yoder U niversity of 16:31:00 [facility] CEREBROSPINAL FLUID GLUCOSE 2021-03-31 [facility], [facility] n[facility] of 16:31:00 [facility] LACTIC ACID CSF 2021-03-31 [facility] of 16:31:00 [facility] LDH CSF 2021-03-31 [facility] of 16:31:00 [facility] BODY FLUID DIRECT COUNT 2021-03-31 [facility] rs[facility] of 16:31:00 [facility] AFB CULTURE 2021-03-31 [facility] of 16:31:00 [facility] CSF/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 SHUNT CULTURE 2021-03-31 [facility] of 16:31:00 [facility] MISCELLANEOUS SEND OUT TEST 2021-03-31 Marcel Concepcion [facility] ersity of 16:31:00 [facility] ANGIOTENSIN CONVERT ENZ, CSF 2021-03-31 [facility] of 16:31:00 [facility] WEST NILE VIRUS AB PANEL 2021-03-31 [facility]eba, [facility] of 16:31:00 [facility] B-ULEVEP-V-ASPARTATE RECEPTOR AB, 2021-03-31 [facility] [place] of CSF 16:31:00 [facility] EXTRA TUBE CSF 2021-03-31 [facility] of 16:31:00 [facility] CSF CULTURE 2021-03-31 Beba [facility] of 16:31:00 [facility] MENINGITIS/ENCEPHALITIS PANEL BY 2021-03-31 Sunny Yoder [facility] of PCR 16:31:00 [facility] POCT GLUCOSE (AUTOMATED) 2021-03-31 Michael [facility] ity of 13:29:00 [facility] POCT GLUCOSE (AUTOMATED) 2021-03-31 [facility] ity of 13:29:00 [facility] MAGNESIUM 2021-03-31 Beba, [facility] of 10:00:00 [facility] BASIC METABOLIC PANEL (NA, K, CL, 2021-03-31 [facility], [facility] CO2, GLUCOSE, BUN, CREATININE, 10:00:00 T [facility]) Branch CBC WITH DIFF 2021-03-31 Beba, [facility] of 10:00:00 [facility] MAGNESIUM 2021-03-31 Beba [facility] of 10:00:00 [facility] BASIC METABOLIC PANEL (NA, K, CL, 2021-03-31 [facility] of CO2, GLUCOSE, BUN, CREATININE, 10:00:00 T [facility]) Branch CBC WITH DIFF 2021-03-31 Beba, [facility] of 10:00:00 [facility] MISCELLANEOUS SEND OUT TEST 2021-03-31 Fortino Yoder U niversity of 10:00:00 [facility] POCT GLUCOSE (AUTOMATED) 2021-03-30 Michael [facility] ity of 22:17:00 [facility] POCT GLUCOSE (AUTOMATED) 2021-03-30 [facility] ity of 22:17:00 [facility] EGD (ENDO) 2021-03-30 [facility] of 16:35:27 [facility] EGD (ENDO) 2021-03-30 [facility] of 16:35:27 [facility] ESOPHAGOGASTRODUODENOSCOPY 2021-03-[address] Uni versity of 16:30:00 [facility] PERCUTANEOUS ENDOSCOPIC GASTRIC 2021-03-30 NithyaGifty granadosfl[place] [facility] of TUBE PLACEMENT 16:30:00 [facility] ESOPHAGOGASTRODUODENOSCOPY 2021-03-30 NithyaGifty granadoseram [facility] versity of 16:30:00 [facility] PERCUTANEOUS ENDOSCOPIC GASTRIC 2021-03-30 NithyaMasood granados [facility] of TUBE PLACEMENT 16:30:00 [facility] POCT GLUCOSE (AUTOMATED) 2021-03-30 Michael, Marcel Univers ity of 13:53:00 [facility] POCT GLUCOSE (AUTOMATED) 2021-03-30 Michael, Marcel Univers ity of 13:53:00 [facility] MAGNESIUM 2021-03-30 [facility] of 10:47:00 [facility] BASIC METABOLIC PANEL (NA, K, CL, 2021-03-30 [facility] [facility] of CO2, GLUCOSE, BUN, CREATININE, 10:47:00 T [facility]) Branch CBC WITH DIFF 2021-03-30 [facility] of 10:47:00 [facility] MAGNESIUM 2021-03-30 [facility] of 10:47:00 [facility] BASIC METABOLIC PANEL (NA, K, CL, 2021-03-30 [facility]ly [facility] of CO2, GLUCOSE, BUN, CREATININE, 10:47:00 T [facility]) Branch CBC WITH DIFF 2021-03-30 [facility] of 10:47:00 [facility] POCT GLUCOSE (AUTOMATED) 2021-03-29 MichaelMarcel rubio [facility] ity of 22:19:00 [facility] POCT GLUCOSE (AUTOMATED) 2021-03-29 [facility] ity of 22:19:00 [facility] COVID-19 (ID NOW RAPID TESTING) 2021-03-29 Russ Titus [place] of 22:03:00 [facility] LAB ONLY COVID INTERPRETATION 2021-03-29 Russ Titus iversity of 22:03:00 [facility] COVID-19 (ID NOW RAPID TESTING) 2021-03-29 Russ Titus [place] of 22:03:00 [facility] LAB ONLY COVID INTERPRETATION 2021-03-29 ArielaRuss Un iversity of 22:03:00 [facility] HEPARIN ANTI-XA, LOW MOLECULAR 2021-03-29 [facility] of WEIGHT HEPARIN 19:01:00 [facility] HEPARIN ANTI-XA, LOW MOLECULAR 2021-03-29 [facility] of WEIGHT HEPARIN 19:01:00 [facility] CBC WITHOUT DIFF 2021-03-29 [facility] o f 18:31:00 [facility] CBC WITHOUT DIFF 2021-03-29 [facility] o f 18:31:00 [facility] POCT GLUCOSE (AUTOMATED) 2021-03-29 Andres Concepcionun Univers ity of 18:07:00 [facility] POCT GLUCOSE (AUTOMATED) 2021-03-29 Andres Concepcionun Univers ity of 18:07:00 [facility] TRANSFUSE PACKED [facility] 16:01:00 [facility] TRANSFUSE PACKED RBC 2021-03-29 [facility] ty of 16:01:00 [facility] TRANSFUSE PACKED RBC 2021-03-29 [facility] ty of 16:01:00 [facility] PREPARE PACKED RBC 2021-03-29 [facility] of 15:56:11 [facility] PREPARE PACKED RBC 2021-03-29 [facility] of 15:56:11 [facility] PREPARE PACKED RBC 2021-03-29 [facility] of 15:56:11 [facility] POCT GLUCOSE (AUTOMATED) 2021-03-29 MichaelAndres rubioun Univers ity of 13:23:00 [facility] POCT GLUCOSE (AUTOMATED) 2021-03-29 Andres Concepcionun Univers ity of 13:23:00 [facility] POCT GLUCOSE (AUTOMATED) 2021-03-29 Andres Concepcionun Univers ity of 13:23:00 [facility] MAGNESIUM 2021-03-29 [facility] of 11:50:00 [facility] BASIC METABOLIC PANEL (NA, K, CL, 2021-03-29 [facility] of CO2, GLUCOSE, BUN, CREATININE, 11:50:00 [facility] CBC WITH DIFF 2021-03-29 [facility] of 11:50:00 [facility] MAGNESIUM 2021-03-29 [facility] of 11:50:00 [facility] BASIC METABOLIC PANEL (NA, K, CL, 2021-03-29 [facility] of CO2, GLUCOSE, BUN, CREATININE, 11:50:00 [facility] CBC WITH DIFF 2021-03-29 [facility] of 11:50:00 [facility] CBC WITH DIFF 2021-03-29 [facility] of 11:50:00 [facility] BASIC METABOLIC PANEL (NA, K, CL, 2021-03-29 [facility] of CO2, GLUCOSE, BUN, CREATININE, 11:50:00 T [facility]) Branch MAGNESIUM 2021-03-29 [facility] of 11:50:00 [facility] CBC WITHOUT DIFF 2021-03-28 [facility] o f 23:01:00 [facility] CBC WITHOUT DIFF 2021-03-28 [facility] o f 23:01:00 [facility] MISCELLANEOUS SEND OUT TEST 2021-03-28 Fortino Yoder U niversity of 23:01:00 [facility] CBC WITHOUT DIFF 2021-03-28 [facility] o f 23:01:00 [facility] POCT GLUCOSE (AUTOMATED) 2021-03-28 Marcel Concepcion Univers ity of 22:16:00 [facility] POCT GLUCOSE (AUTOMATED) 2021-03-28 Marcel Concepcion Univers ity of 22:16:00 [facility] POCT GLUCOSE (AUTOMATED) 2021-03-28 Marcel Concepcion Univers ity of 22:16:00 [facility] MISCELLANEOUS SEND OUT TEST 2021-03-28 Davey Yoderkhnida U niversity of 17:51:00 [facility] POCT GLUCOSE (AUTOMATED) 2021-03-28 Michael, Marcel Univers ity of 17:06:00 [facility] POCT GLUCOSE (AUTOMATED) 2021-03-28 Michael, Marcel Univers ity of 17:06:00 [facility] POCT GLUCOSE (AUTOMATED) 2021-03-28 Michael, Marcel Univers ity of 17:06:00 [facility] POCT GLUCOSE (AUTOMATED) 2021-03-28 Michael, Marcel Univers ity of 13:11:00 [facility] POCT GLUCOSE (AUTOMATED) 2021-03-28 Michael, Marcel Univers ity of 13:11:00 [facility] POCT GLUCOSE (AUTOMATED) 2021-03-28 Michael, Marcel Univers ity of 13:11:00 [facility] BASIC METABOLIC PANEL (NA, K, CL, 2021-03-28 [facility]2, GLUCOSE, BUN, CREATININE, 10:56:00 [facility] BASIC METABOLIC PANEL (NA, K, CL, 2021-03-28 [facility] of CO2, GLUCOSE, BUN, CREATININE, 10:56:00 [facility] BASIC METABOLIC PANEL (NA, K, CL, 2021-03-28 [facility] of CO2, GLUCOSE, BUN, CREATININE, 10:56:00 [facility] CBC WITHOUT DIFF 2021-03-28 [facility] of 10:46:00 [facility] PROTHROMBIN TIME / INR 2021-03-28 [facility] of 10:46:00 [facility] ACTIVATED PARTIAL THRMPLAS LASHONDA 2021-03-28 Orlando Mitchell [facility] of 10:46:00 [facility] CBC WITHOUT DIFF 2021-03-28 [facility] of 10:46:00 [facility] PROTHROMBIN TIME / INR 2021-03-28 [facility] of 10:46:00 [facility] ACTIVATED PARTIAL THRMPLAS LASHONDA 2021-03-28 [facility] of 10:46:00 [facility] CBC WITHOUT DIFF 2021-03-28 [facility] of 10:46:00 [facility] PROTHROMBIN TIME / INR 2021-03-28 Mitchell Yana [facility] rsity of 10:46:00 [facility] ACTIVATED PARTIAL THRMPLAS LASHONDA 2021-03-28 [facility] of 10:46:00 [facility] PREPARE PACKED RBC 2021-03-28 Mitchell [facility] y of 04:56:39 [facility] PREPARE PACKED RBC 2021-03-28 [facility] of 04:56:39 [facility] PREPARE PACKED RBC 2021-03-28 [facility] of 04:56:39 [facility] CBC WITHOUT DIFF 2021-03-28 [facility] of 03:36:00 [facility] CBC WITHOUT DIFF 2021-03-28 [facility] of 03:36:00 [facility] CBC WITHOUT DIFF 2021-03-28 [facility] 03:36:00 [facility] XR CHEST 1 VW 2021-03-28 [facility] f 03:25:41 [facility] XR CHEST 1 VW 2021-03-28 [facility] o f 03:25:41 [facility] XR CHEST 1 VW 2021-03-28 [facility] o f 03:25:41 [facility] BLOOD CULTURE SCREEN 2021-03-27 Beba Pankhuri Universi ty of 22:41:00 [facility] BLOOD CULTURE SCREEN 2021-03-27 Beba, Pankhuri Universi ty of 22:41:00 [facility] BLOOD CULTURE SCREEN 2021-03-27 Beba, Pankhuri Universi ty of 22:41:00 [facility] BLOOD CULTURE SCREEN 2021-03-27 Beba Pankhuri Universi ty of 22:29:00 [facility] BLOOD CULTURE SCREEN 2021-03-27 Beba Pankhuri Universi ty of 22:29:00 [facility] BLOOD CULTURE SCREEN 2021-03-27 Beba Pankhuri Universi ty of 22:29:00 [facility] URINALYSIS 2021-03-27 [facility] of 22:11:00 [facility] URINE CULTURE 2021-03-27 [facility] of 22:11:00 [facility] URINALYSIS 2021-03-27 [facility] of 22:11:00 [facility] URINE CULTURE 2021-03-27 [facility] of 22:11:00 [facility] URINALYSIS 2021-03-27 [facility] of 22:11:00 [facility] URINE CULTURE 2021-03-27 [facility] of 22:11:00 [facility] POCT GLUCOSE (AUTOMATED) 2021-03-27 Michael, [facility] ity of 22:10:00 [facility] POCT GLUCOSE (AUTOMATED) 2021-03-27 [facility] ity of 22:10:00 [facility] POCT GLUCOSE (AUTOMATED) 2021-03-27 [facility] ity of 22:10:00 [facility] CBC WITHOUT DIFF 2021-03-27 [facility] 21:20:00 [facility] CBC WITHOUT DIFF 2021-03-27 [facility] 21:20:00 [facility] CBC WITHOUT DIFF 2021-03-[facility] 21:20[facility]00 [facility] INTUBATION 2021-03-27 Martina Fowler [place] of 18:51:00 [facility] ABORH CONFIRMATION (LAB ONLY) 2021-03-27 Kimberly Tidwellhyrob Driver [facility] of 16:15:00 [facility] ABORH CONFIRMATION (LAB ONLY) 2021-03-27 aYw [facility] of 16:15:00 [facility] ABORH CONFIRMATION (LAB ONLY) 2021-03-27 Yaw [facility] of 16:15:00 [facility] HB ABO GROUPING 2021-03-27 [facility] o f 16:00:00 [facility] HB ABO GROUPING 2021-03-27 [facility] o f 16:00:00 [facility] HB ABO GROUPING 2021-03-27 Yaw [facility] o f 16:00:00 [facility] XR CHEST 1 VW 2021-03-27 [facility] of 14:20:00 [facility] XR CHEST 1 VW 2021-03-27 [facility] of 14:20:00 [facility] XR CHEST 1 VW 2021-03-27 Beba, [facility] of 14:20:00 [facility] POCT GLUCOSE (AUTOMATED) 2021-03-27 Michael, Marcel Univers ity of 14:03:00 [facility] POCT GLUCOSE (AUTOMATED) 2021-03-27 Michael, Marcel Univers ity of 14:03:00 [facility] POCT GLUCOSE (AUTOMATED) 2021-03-27 Michael, [facility] ity of 14:03:00 [facility] DIFF CONSULT INTERPRETATION 2021-03-27 Fortino Yoder U niversity of 10:18:00 [facility] CBC WITH DIFF 2021-03-27 Beba, [facility] of 10:18:00 [facility] DIFF CONSULT INTERPRETATION 2021-03-27 Fortino Yoder U niversity of 10:18:00 [facility] CBC WITH DIFF 2021-03-27 [facility] of 10:18:00 [facility] CBC WITH DIFF 2021-03-27 Davey Yodernida [place] of 10:18:00 [facility] DIFF CONSULT INTERPRETATION 2021-03-27 Fortino Yoder U niversity of 10:18:00 [facility] PROTHROMBIN TIME / INR 2021-03-27 Fortino Yoder Univer sity of 09:47:00 [facility] PROTHROMBIN TIME / INR 2021-03-27 Fortino Yoder Univer sity of 09:47:00 [facility] PROTHROMBIN TIME / INR 2021-03-27 Fortino Yoder Univer sity of 09:47:00 [facility] ANTI-SSA(RO) 2021-03-26 [facility] of 23:24:00 [facility] GALV ONLY - SYPHILIS IGG/IGM 2021-03-26 [facility] of 23:24:00 [facility] ANTI-SSA(RO) 2021-03-26 [facility] of 23:24:00 [facility] GALV ONLY - SYPHILIS IGG/IGM 2021-03-26 [facility] of 23:24:00 [facility] GALV ONLY - SYPHILIS IGG/IGM 2021-03-26 [facility] of 23:24:00 [facility] HAPTOGLOBIN, SERUM 2021-03-26 [facility] of 23:23:00 [facility] ANTI-NUCLEAR ANTIBODY SCREEN 2021-03-26 [facility] of 23:23:00 [facility] HAPTOGLOBIN, SERUM 2021-03-26 [facility] of 23:23:00 [facility] ANTI-NUCLEAR ANTIBODY SCREEN 2021-03-26 [facility] of 23:23:00 [facility] ANTI-NUCLEAR ANTIBODY-PATHOLOGIST 2021-03-26 [facility] of INTERPRETATION 23:23:00 [facility] ANTI-NUCLEAR ANTIBODY SCREEN 2021-03-26 [facility] of 23:23:00 [facility] HAPTOGLOBIN, SERUM 2021-03-26 [facility] of 23:23:00 [facility] POCT GLUCOSE (AUTOMATED) 2021-03-26 Andres Concepcionun Univers ity of 22:33:00 [facility] POCT GLUCOSE (AUTOMATED) 2021-03-26 Michael, Marcel Univers ity of 22:33:00 [facility] POCT GLUCOSE (AUTOMATED) 2021-03-26 Michael, Marcel Univers ity of 22:33:00 [facility] FECAL IMMUNOCHEMICAL TEST 2021-03-26 Fortino Yoder Uni versity of 21:47:00 [facility] FECAL IMMUNOCHEMICAL TEST 2021-03-26 Fortino Yoder Uni versity of 21:47:00 [facility] FECAL IMMUNOCHEMICAL TEST 2021-03-26 Fortino Yoder Uni versity of 21:47:00 [facility] LACTATE DEHYDROGENASE 2021-03-26 Beba [facility] Univers ity of 20:00:00 [facility] HEPATIC FUNCTION PANEL (49239) 2021-03-26 [facility] (ALB,T.PRO,BILI 20:00:00 [place] [facility] T,BU/BC,ALT,AST,ALK PHOS) Branch LACTATE DEHYDROGENASE 2021-03-26 [facility] Univers ity of 20:00:00 [facility] HEPATIC FUNCTION PANEL ([id number]) 2021-03-26 [facility] of (ALB,T.PRO,BILI 20:00:00 [place] [facility] T,BU/BC,ALT,AST,ALK PHOS) Branch LACTATE DEHYDROGENASE 2021-03-26 [facility] Univers ity of 20:00:00 [facility] HEPATIC FUNCTION PANEL ([id number]) 2021-03-26 [facility] of (ALB,T.PRO,BILI 20:00:00 [place] [facility] T,BU/BC,ALT,AST,ALK PHOS) Branch POCT GLUCOSE (AUTOMATED) 2021-03-26 Michael, Marcel Univers ity of 18:16:00 [facility] POCT GLUCOSE (AUTOMATED) 2021-03-26 Michael, Marcel Univers ity of 18:16:00 [facility] POCT GLUCOSE (AUTOMATED) 2021-03-26 Michael, Marcel Univers ity of 18:16:00 [facility] POCT GLUCOSE (AUTOMATED) 2021-03-26 Michael, Marcel Univers ity of 14:51:00 [facility] POCT GLUCOSE (AUTOMATED) 2021-03-26 Michael, Marcel Univers ity of 14:51:00 [facility] POCT GLUCOSE (AUTOMATED) 2021-03-26 Michael, Marcel Univers ity of 14:51:00 [facility] METHYLMALONIC ACID, SERUM 2021-03-26 Fortino Yoder Uni versity of 12:02:00 [facility] CBC WITHOUT DIFF 2021-03-26 [facility] o f 12:02:00 [facility] RETICULOCYTES AUTOMATED 2021-03-26 [facility] 12:02:00 [facility] METHYLMALONIC ACID, SERUM 2021-03-26 [facility] vers[facility] of 12:02:00 [facility] CBC WITHOUT DIFF 2021-03-26 [facility] o f 12:02:00 [facility] RETICULOCYTES AUTOMATED 2021-03-26 Beba, [facility] rsity of 12:02:00 [facility] CBC WITHOUT DIFF 2021-03-26 [facility] o f 12:02:00 [facility] RETICULOCYTES AUTOMATED 2021-03-26 Beba [facility] rsity of 12:02:00 [facility] POCT GLUCOSE (AUTOMATED) 2021-03-25 Michael, Marcel Univers ity of 22:48:00 [facility] POCT GLUCOSE (AUTOMATED) 2021-03-25 Michael, Marcel Univers ity of 22:48:00 [facility] POCT GLUCOSE (AUTOMATED) 2021-03-25 Michael, Marcel Univers ity of 22:48:00 [facility] CBC WITH DIFF 2021-03-25 [facility] of 18:24:00 [facility] D-DIMER 2021-03-25 Elnae, [facility] of 18:24:00 [facility] CBC WITH DIFF 2021-03-25 [facility], [facility] of 18:24:00 [facility] D-DIMER 2021-03-25 Elnae, [facility] of 18:24:00 [facility] D-DIMER 2021-03-25 Elnae, [facility] of 18:24:00 [facility] CBC WITH DIFF 2021-03-25 nae, [facility] of 18:24:00 [facility] POCT GLUCOSE (AUTOMATED) 2021-03-25 Michael, Marcel Univers ity of 18:05:00 [facility] POCT GLUCOSE (AUTOMATED) 2021-03-25 Michael, Marcel Univers ity of 18:05:00 [facility] POCT GLUCOSE (AUTOMATED) 2021-03-25 Michael, Marcel Univers ity of 18:05:00 [facility] POCT GLUCOSE (AUTOMATED) 2021-03-25 Maritza Fajardo Univers ity of 14:36:00 [facility] POCT GLUCOSE (AUTOMATED) 2021-03-25 Maritza Fajardo Univers ity of 14:36:00 [facility] POCT GLUCOSE (AUTOMATED) 2021-03-25 Maritza Fajardo Univers ity of 14:36:00 [facility] AMMONIA, PLASMA 2021-03-25 [facility] of 02:55:00 [facility] AMMONIA, PLASMA 2021-03-25 [facility] of 02:55:00 [facility] AMMONIA, PLASMA 2021-03-25 [facility] of 02:55:00 [facility] MR BRAIN W WO CONTRAST 2021-03-25 [facility], [facility] Univer sity of 01:57:57 [facility] MR BRAIN W WO CONTRAST 2021-03-25 Beba, [facility] Univer sity of 01:57:57 [facility] MR BRAIN W WO CONTRAST 2021-03-25 Beba, [facility] Univer sity of 01:57:57 [facility] POCT GLUCOSE (AUTOMATED) 2021-03-24 Maritza Fajardo Univers ity of 21:53:00 [facility] POCT GLUCOSE (AUTOMATED) 2021-03-24 Maritza Fajardo Univers ity of 21:53:00 [facility] POCT GLUCOSE (AUTOMATED) 2021-03-24 Maritza Fajardo Univers ity of 21:53:00 [facility] POCT GLUCOSE (AUTOMATED) 2021-03-24 Maritza Fajardo Univers ity of 17:34:00 [facility] POCT GLUCOSE (AUTOMATED) 2021-03-24 Maritza Fajardo Univers ity of 17:34:00 [facility] POCT GLUCOSE (AUTOMATED) 2021-03-24 Maritza Fajardo Univers ity of 17:34:00 [facility] POCT GLUCOSE (AUTOMATED) 2021-03-24 Maritza Fajardo Univers ity of 13:45:00 [facility] [facility] POCT GLUCOSE (AUTOMATED) 2021-03-24 Maritza Fajardo [facility] ity of 13:45:00 [facility] POCT GLUCOSE (AUTOMATED) 2021-03-24 Maritza Fajardo [facility] ity of 13:45:00 [facility] FERRITIN SERUM 2021-03-24 [facility] of 10:11:00 [facility] C-REACTIVE PROTEIN 2021-03-24 [facility] of 10:11:00 [facility] THYROID STIMULATING HORMONE 2021-03-24 Fortino Yoder [facility] of 10:11:00 [facility] BASIC METABOLIC PANEL (NA, K, CL, 2021-03-24 Jonathan Tom [place] of CO2, GLUCOSE, BUN, CREATININE, 10:11:00 [facility] IRON PANEL 2021-03-24 [facility] of 10:11:00 [facility] SEDIMENTATION RATE 2021-03-24 B[facility] of 10:11:00 [facility] CBC WITH DIFF 2021-03-[address] [facility] of 10:11:00 [facility] HIV 1/2 AG-AB WITH REFLEX 2021-03-24 Fortino Yoder Uni versity of 10:11:00 [facility] FERRITIN SERUM 2021-03-24 [facility] of 10:11:00 [facility] C-REACTIVE PROTEIN 2021-03-24 [facility] of 10:11:00 [facility] THYROID STIMULATING HORMONE 2021-03-24 Fortino Yoder [facility] of 10:11:00 [facility] BASIC METABOLIC PANEL (NA, K, CL, 2021-03-24 Jonathan Tom [place] of CO2, GLUCOSE, BUN, CREATININE, 10:11:00 [facility] IRON PANEL 2021-03-24 [facility] of 10:11:00 [facility] SEDIMENTATION RATE 2021-03-24 Fortino Yoder University of 10:11:00 [facility] CBC WITH DIFF 2021-03-24 [facility] of 10:11:00 [facility] HIV 1/2 AG-AB WITH REFLEX 2021-03-24 Fortino Yoder Uni versity of 10:11:00 [facility] CBC WITH DIFF 2021-03-24 [facility] of 10:11:00 [facility] BASIC METABOLIC PANEL (NA, K, CL, 2021-03-[address] [facility] of CO2, GLUCOSE, BUN, CREATININE, 10:11:00 [facility] [place] SEDIMENTATION RATE 2021-03-24 [facility] of 10:11:00 [facility] C-REACTIVE PROTEIN 2021-03-24 B[facility] of 10:11:00 [facility] THYROID STIMULATING HORMONE 2021-03-24 Fortino Yoder [facility] of 10:11:00 [facility] IRON PANEL 2021-03-24 Beba [facility] of 10:11:00 [facility] FERRITIN SERUM 2021-03-24 Beba, [facility] of 10:11:00 [facility] HIV 1/2 AG-AB WITH REFLEX 2021-03-24 Fortino Yoder Uni versity of 10:11:00 [facility] POCT GLUCOSE (AUTOMATED) 2021-03-24 Maritza Fajardo Univers ity of 02:23:00 [facility] POCT GLUCOSE (AUTOMATED) 2021-03-24 Maritza Fajardo Univers ity of 02:23:00 [facility] POCT GLUCOSE (AUTOMATED) 2021-03-24 Maritza Fajardo Univers ity of 02:23:00 [facility] XR ABDOMEN 1 VW 2021-03-23 Jonathan Tom [place] of 23:05:26 [facility] XR ABDOMEN 1 VW 2021-03-23 Jonathan Tom [place] of 23:05:26 [facility] XR ABDOMEN 1 VW 2021-03-23 Vaishali [facility] of 23:05:26 [facility] POCT GLUCOSE (AUTOMATED) 2021-03-23 Maritza Fajardo Univers ity of 23:00:00 [facility] POCT GLUCOSE (AUTOMATED) 2021-03-23 Janel Fajardod Univers ity of 23:00:00 [facility] POCT GLUCOSE (AUTOMATED) 2021-03-23 Janel Fajardod Univers ity of 23:00:00 [facility] POCT GLUCOSE (AUTOMATED) 2021-03-23 Janel Fajardod Univers ity of 17:38:00 [facility] POCT GLUCOSE (AUTOMATED) 2021-03-23 Janel Fajardod Univers ity of 17:38:00 [facility] POCT GLUCOSE (AUTOMATED) 2021-03-23 Maritza Fajardo Univers ity of 17:38:00 [facility] TRANSTHORACIC ECHO (TTE) COMPLETE 2021-03-[address] [facility] of W/ CONTRAST 16:40:00 [facility] TRANSTHORACIC ECHO (TTE) COMPLETE 2021-03-23 [facility] W/ CONTRAST 16:40:00 [facility] TRANSTHORACIC ECHO (TTE) COMPLETE 2021-03-23 [facility] W/ CONTRAST 16:40:00 [facility] POCT GLUCOSE (AUTOMATED) 2021-03-23 Maritza Fajardo Univers ity of 14:16:00 [facility] POCT GLUCOSE (AUTOMATED) 2021-03-23 Maritza Fajardo Univers ity of 14:16:00 [facility] POCT GLUCOSE (AUTOMATED) 2021-03-23 Maritza Fajardo Univers ity of 14:16:00 [facility] POCT GLUCOSE (AUTOMATED) 2021-03-23 Maritza Fajardo Univers ity of 02:07:00 [facility] POCT GLUCOSE (AUTOMATED) 2021-03-23 Maritza Fajardo Univers ity of 02:07:00 [facility] POCT GLUCOSE (AUTOMATED) 2021-03-23 Maritza Fajardo Univers ity of 02:07:00 [facility] ELECTROENCEPHALOGRAM 2021-03-23 Zuly [facility] of 00:00:00 [facility] ELECTROENCEPHALOGRAM 2021-03-23 ZulyCount Includes [facility] of 00:00:00 [facility] ELECTROENCEPHALOGRAM 2021-03-23 Zuly [facility] of 00:00:00 [facility] POCT GLUCOSE (AUTOMATED) 2021-03-22 Janel Fajardod Univers ity of 22:19:00 [facility] POCT GLUCOSE (AUTOMATED) 2021-03-22 Tana Fajardomad Univers ity of 22:19:00 [facility] POCT GLUCOSE (AUTOMATED) 2021-03-22 Abundio Fajardohammad Univers ity of 22:19:00 [facility] POCT GLUCOSE (AUTOMATED) 2021-03-22 Tana Fajardomad Univers ity of 17:11:00 [facility] POCT GLUCOSE (AUTOMATED) 2021-03-22 Janel Fajardod Univers ity of 17:11:00 [facility] POCT GLUCOSE (AUTOMATED) 2021-03-22 Janel Fajardod Univers ity of 17:11:00 [facility] CT ANGIOGRAM HEAD 2021-03-22 [facility] o f 16:28:00 [facility] CT ANGIOGRAM NECK 2021-03-22 [facility] o f 16:28:00 [facility] CT ANGIOGRAM HEAD 2021-03-22 [facility] o f 16:28:00 [facility] CT ANGIOGRAM NECK 2021-03-22 [facility] o f 16:28:00 [facility] CT ANGIOGRAM HEAD 2021-03-22 [facility] o f 16:28:00 [facility] CT ANGIOGRAM NECK 2021-03-22 [facility] o f 16:28:00 [facility] POCT GLUCOSE (AUTOMATED) 2021-03-22 Maritza Fajardo Univers ity of 13:32:00 [facility] POCT GLUCOSE (AUTOMATED) 2021-03-22 Janel Fajardod Univers ity of 13:32:00 [facility] POCT GLUCOSE (AUTOMATED) 2021-03-22 Maritza Fajardo Univers ity of 13:32:00 [facility] BASIC METABOLIC PANEL (NA, K, CL, 2021-03-22 [facility] of CO2, GLUCOSE, BUN, CREATININE, 09:38:00 [facility] VERIFYNOW ASPIRIN TEST 2021-03-22 [facility] ity of 09:38:00 [facility] BASIC METABOLIC PANEL (NA, K, CL, 2021-03-22 [facility] of CO2, GLUCOSE, BUN, CREATININE, 09:38:00 [facility] VERIFYNOW ASPIRIN TEST 2021-03-22 [facility], [facility] Univers ity of 09:38:00 [facility] VERIFYNOW ASPIRIN TEST 2021-03-22 [facility], [facility] Univers ity of 09:38:00 [facility] BASIC METABOLIC PANEL (NA, K, CL, 2021-03-22 [facility] of CO2, GLUCOSE, BUN, CREATININE, 09:38:00 [facility] POCT GLUCOSE (AUTOMATED) 2021-03-22 Maritza Fajardo Univers ity of 02:17:00 [facility] POCT GLUCOSE (AUTOMATED) 2021-03-22 Maritza Fajardo Univers ity of 02:17:00 [facility] POCT GLUCOSE (AUTOMATED) 2021-03-22 Maritza Fajardo Univers ity of 02:17:00 [facility] POCT GLUCOSE (AUTOMATED) 2021-03-21 Maritza Fajardo Univers ity of 22:40:00 [facility] POCT GLUCOSE (AUTOMATED) 2021-03-21 Maritza Fajardo Univers ity of 22:40:00 [facility] POCT GLUCOSE (AUTOMATED) 2021-03-21 Maritza Fajardo Univers ity of 22:40:00 [facility] POCT GLUCOSE (AUTOMATED) 2021-03-21 Maritza Fajardo Univers ity of 17:26:00 [facility] POCT GLUCOSE (AUTOMATED) 2021-03-21 Abundio Fajardohammad Univers ity of 17:26:00 [facility] POCT GLUCOSE (AUTOMATED) 2021-03-21 TanaTanaSalas Univers ity of 17:26:00 [facility] POCT GLUCOSE (AUTOMATED) 2021-03-21 Tana Salas Univers ity of 13:30:00 [facility] POCT GLUCOSE (AUTOMATED) 2021-03-21 Tana Fajardomad Univers ity of 13:30:00 [facility] POCT GLUCOSE (AUTOMATED) 2021-03-21 Tana Salas Univers ity of 13:30:00 [facility] BASIC METABOLIC PANEL (NA, K, CL, 2021-03-21 [facility] of CO2, GLUCOSE, BUN, CREATININE, 10:41:00 T [facility]) Branch CBC WITH DIFF 2021-03-21 [facility] o f 10:41:00 [facility] BASIC METABOLIC PANEL (NA, K, CL, 2021-03-21 [facility] of CO2, GLUCOSE, BUN, CREATININE, 10:41:00 T [facility]) Branch CBC WITH DIFF 2021-03-21 [facility] o f 10:41:00 [facility] BASIC METABOLIC PANEL (NA, K, CL, 2021-03-21 [facility] of CO2, GLUCOSE, BUN, CREATININE, 10:41:00 [facility]) Branch CBC WITH DIFF 2021-03-21 [facility] o f 10:41:00 [facility] POCT GLUCOSE (AUTOMATED) 2021-03-21 Maritza Fajardo Univers ity of 02:03:00 [facility] POCT GLUCOSE (AUTOMATED) 2021-03-21 Janel Fajardod Univers ity of 02:03:00 [facility] POCT GLUCOSE (AUTOMATED) 2021-03-21 Maritza Fajardo Univers ity of 02:03:00 [facility] BLOOD CULTURE SCREEN 2021-03-21 Yana Mitchell Univers ity of 01:44:00 [facility] Branch BLOOD CULTURE SCREEN 2021-03-21 Yana Mitchell Univers ity of 01:44:00 [facility] BLOOD CULTURE SCREEN 2021-03-21 Yana Mitchell Univers ity of 01:44:00 [facility] BLOOD CULTURE SCREEN 2021-03-21 Yana Mitchell Univers ity of 00:38:00 [facility] BLOOD CULTURE SCREEN 2021-03-21 Katty Mitchella Univers ity of 00:38:00 [facility] BLOOD CULTURE SCREEN 2021-03-21 Katty Mitchella Univers ity of 00:38:00 [facility] XR CHEST 1 VW 2021-03-21 [facility] f 00:17:00 [facility] XR CHEST 1 VW 2021-03-21 Mitchell [facility] o f 00:17:00 [facility] XR CHEST 1 VW 2021-03-21 Mitchell [facility] o f 00:17:00 [facility] URINALYSIS 2021-03-21 Mitchell [facility] o f 00:16:00 [facility] URINALYSIS 2021-03-21 Mitchell [facility] o f 00:16:00 [facility] URINALYSIS 2021-03-21 Mitchell [facility] o f 00:16:00 [facility] POCT GLUCOSE (AUTOMATED) 2021-03-20 Maritza Fajardo Univers ity of 22:04:00 [facility] POCT GLUCOSE (AUTOMATED) 2021-03-20 Maritza Fajardo Univers ity of 22:04:00 [facility] POCT GLUCOSE (AUTOMATED) 2021-03-20 Maritza Fajardo Univers ity of 22:04:00 [facility] POCT GLUCOSE (AUTOMATED) 2021-03-20 Lamine Duran Univers ity of 17:46:00 [facility] POCT GLUCOSE (AUTOMATED) 2021-03-20 Lamine Duran Univers ity of 17:46:00 [facility] POCT GLUCOSE (AUTOMATED) 2021-03-20 Lamine Duran Univers ity of 17:46:00 [facility] POCT GLUCOSE (AUTOMATED) 2021-03-20 Lamine Duran Univers ity of 13:40:00 [facility] POCT GLUCOSE (AUTOMATED) 2021-03-20 Lamine Duran Univers ity of 13:40:00 [facility] POCT GLUCOSE (AUTOMATED) 2021-03-20 Lamine Duran Univers ity of 13:40:00 [facility] BASIC METABOLIC PANEL (NA, K, CL, 2021-03-20 Eduard, [facility] of CO2, GLUCOSE, BUN, CREATININE, 10:52:00 [facility] CBC WITH DIFF 2021-03-20 Eduard, [facility] of 10:52:00 [facility] BASIC METABOLIC PANEL (NA, K, CL, 2021-03-20 Eduard, [facility] CO2, GLUCOSE, BUN, CREATININE, 10:52:00 [facility] CBC WITH DIFF 2021-03-20 Eduard, [facility] of 10:52:00 [facility] CBC WITH DIFF 2021-03-20 Eduard, [facility] of 10:52:00 [facility] BASIC METABOLIC PANEL (NA, K, CL, 2021-03-20 Eduard, [facility] of CO2, GLUCOSE, BUN, CREATININE, 10:52:00 [facility] POCT GLUCOSE (AUTOMATED) 2021-03-19 Lamine Duran Univers ity of 23:19:00 [facility] POCT GLUCOSE (AUTOMATED) 2021-03-19 Lamine Duran Univers ity of 23:19:00 [facility] POCT GLUCOSE (AUTOMATED) 2021-03-19 Lamine Duran Univers ity of 23:19:00 [facility] POCT GLUCOSE (AUTOMATED) 2021-03-19 Lamine Duran Univers ity of 17:30:00 [facility] POCT GLUCOSE (AUTOMATED) 2021-03-19 Lamine Duran Univers ity of 17:30:00 [facility] POCT GLUCOSE (AUTOMATED) 2021-03-19 Lamine Duran Univers ity of 17:30:00 [facility] POCT GLUCOSE (AUTOMATED) 2021-03-19 Lamine Duran Univers ity of 13:46:00 [facility] POCT GLUCOSE (AUTOMATED) 2021-03-19 Lamine Duran Univers ity of 13:46:00 [facility] POCT GLUCOSE (AUTOMATED) 2021-03-19 Lamine Duran Univers ity of 13:46:00 [facility] BASIC METABOLIC PANEL (NA, K, CL, 2021-03-19 Autumn [facility] CO2, GLUCOSE, BUN, CREATININE, 09:16:00 [facility] BASIC METABOLIC PANEL (NA, K, CL, 2021-03-19 [facility]ardAutumn tirado [facility] CO2, GLUCOSE, BUN, CREATININE, 09:16:00 [facility] BASIC METABOLIC PANEL (NA, K, CL, 2021-03-19 Autumn [facility] CO2, GLUCOSE, BUN, CREATININE, 09:16:00 [facility] POCT GLUCOSE (AUTOMATED) 2021-03-18 Lamine Duran Univers ity of 23:19:00 [facility] POCT GLUCOSE (AUTOMATED) 2021-03-18 Lamine Duran Univers ity of 23:19:00 [facility] POCT GLUCOSE (AUTOMATED) 2021-03-18 Lamine Duran Univers ity of 23:19:00 [facility] POCT GLUCOSE (AUTOMATED) 2021-03-18 Lamine Durna Univers ity of 17:40:00 [facility] POCT GLUCOSE (AUTOMATED) 2021-03-18 Lamine Duran Univers ity of 17:40:00 [facility] POCT GLUCOSE (AUTOMATED) 2021-03-18 Lamine Duran Univers ity of 17:40:00 [facility] POCT GLUCOSE (AUTOMATED) 2021-03-18 Lamine Duran Univers ity of 13:50:00 [facility] POCT GLUCOSE (AUTOMATED) 2021-03-18 Lamine Duran Univers ity of 13:50:00 [facility] POCT GLUCOSE (AUTOMATED) 2021-03-18 Lamine Duarn Univers ity of 13:50:00 [facility] MAGNESIUM 2021-03-18 Carline Chapa [place] of 09:50:00 [facility] BASIC METABOLIC PANEL (NA, K, CL, 2021-03-18 Autumn Chapa [place] of CO2, GLUCOSE, BUN, CREATININE, 09:50:00 [facility]) [facility] CBC WITH DIFF 2021-03-18 Carline Chapa [place] of 09:50:00 [facility] MAGNESIUM 2021-03-18 [facility] of 09:50:00 [facility] BASIC METABOLIC PANEL (NA, K, CL, 2021-03-18 Eduard, Autumn pawel [place] of CO2, GLUCOSE, BUN, CREATININE, 09:50:00 [facility] CBC WITH DIFF 2021-03-18 Eduard, Carline [place] of 09:50:00 [facility] CBC WITH DIFF 2021-03-18 Eduard, [facility] of 09:50:00 [facility] BASIC METABOLIC PANEL (NA, K, CL, 2021-03-18 [facility]ardMarcie [facility] of CO2, GLUCOSE, BUN, CREATININE, 09:50:00 [facility] MAGNESIUM 2021-03-18 EduardCarline tirado [place] of 09:50:00 [facility] POCT GLUCOSE (AUTOMATED) 2021-03-17 Lamine Duran Univers ity of 22:42:00 [facility] POCT GLUCOSE (AUTOMATED) 2021-03-17 Lamine Duran Univers ity of 22:42:00 [facility] POCT GLUCOSE (AUTOMATED) 2021-03-17 Lamine Duran Univers ity of 22:42:00 [facility] POCT GLUCOSE (AUTOMATED) 2021-03-17 Lamine Duran Univers ity of 17:52:00 [facility] POCT GLUCOSE (AUTOMATED) 2021-03-17 Lamine Duran Univers ity of 17:52:00 [facility] POCT GLUCOSE (AUTOMATED) 2021-03-17 Lamine Duran Univers ity of 17:52:00 [facility] POCT GLUCOSE (AUTOMATED) 2021-03-17 Lamine Duran Univers ity of 13:41:00 [facility] POCT GLUCOSE (AUTOMATED) 2021-03-17 Lamine Duran Univers ity of 13:41:00 [facility] POCT GLUCOSE (AUTOMATED) 2021-03-17 Lamine Duran [facility] ity of 13:41:00 [facility] PHOSPHORUS 2021-03-17 Lamine Duran [place] of 10:23:00 [facility] MAGNESIUM 2021-03-17 Lamine Duran [place] of 10:23:00 [facility] BASIC METABOLIC PANEL (NA, K, CL, 2021-03-17 Barak Duran [place] of CO2, GLUCOSE, BUN, CREATININE, 10:23:00 [facility] LIPID PANEL ([id number])(TOTAL 2021-03-17 [facility] ersity of CHOLESTEROL, TRIGLYCERIDES, HDL) 10:23:00 [facility] CBC WITH DIFF 2021-03-17 Lamine Duran [place] of 10:23:00 [facility] PHOSPHORUS 2021-03-17 Lamine Duran [place] of 10:23:00 [facility] MAGNESIUM 2021-03-17 Lamine Duran [place] of 10:23:00 [facility] BASIC METABOLIC PANEL (NA, K, CL, 2021-03-17 Barak Duran [place] of CO2, GLUCOSE, BUN, CREATININE, 10:23:00 [facility] LIPID PANEL (64482)(TOTAL 2021-03-17 marMike mixonCritical access hospital ersity of CHOLESTEROL, TRIGLYCERIDES, HDL) 10:23:00 [facility] CBC WITH DIFF 2021-03-17 Lamine Duran [place] of 10:23:00 [facility] LIPID PANEL ([id number])(TOTAL 2021-03-17 [facility] hospital ersity of CHOLESTEROL, TRIGLYCERIDES, HDL) 10:23:00 [facility] BASIC METABOLIC PANEL (NA, K, CL, 2021-03-17 Barak Duran [place] of CO2, GLUCOSE, BUN, CREATININE, 10:23:00 [facility] CBC WITH DIFF 2021-03-17 Lamine Duran [place] of 10:23:00 [facility] MAGNESIUM 2021-03-17 Lamine Duran [place] of 10:23:00 [facility] PHOSPHORUS 2021-03-17 Lamine Duran [facility] of 10:23:00 [facility] POCT GLUCOSE (AUTOMATED) 2021-03-16 Lamine Duran [facility] ity of 22:46:00 [facility] POCT GLUCOSE (AUTOMATED) 2021-03-16 Lamine Duran [facility] ity of 22:46:00 [facility] POCT GLUCOSE (AUTOMATED) 2021-03-16 Lamine Duran Univers ity of 22:46:00 [facility] POCT GLUCOSE (AUTOMATED) 2021-03-16 Lamine Duran Univers ity of 18:05:00 [facility] POCT GLUCOSE (AUTOMATED) 2021-03-16 Lamine Duran Univers ity of 18:05:00 [facility] POCT GLUCOSE (AUTOMATED) 2021-03-16 Lamine Duran ity of 18:05:00 [facility] BLOOD CULTURE SCREEN 2021-03-16 Saqib Hoffman [place] of 17:10:00 [facility] BLOOD CULTURE SCREEN 2021-03-16 Saqib Hoffman [place] of 17:10:00 [facility] BLOOD CULTURE SCREEN 2021-03-16 Saqib Hoffman [place] of 17:10:00 [facility] BLOOD CULTURE SCREEN 2021-03-16 Saqib Hoffman [place] of 17:04:00 [facility] BASIC METABOLIC PANEL (NA, K, CL, 2021-03-16 Barak Duran [facility] of CO2, GLUCOSE, BUN, CREATININE, 17:04:00 [facility] BLOOD CULTURE SCREEN 2021-03-16 Saqib Hoffman [place] of 17:04:00 [facility] BASIC METABOLIC PANEL (NA, K, CL, 2021-03-16 Barak Duran [facility] of CO2, GLUCOSE, BUN, CREATININE, 17:04:00 [facility] BLOOD CULTURE SCREEN 2021-03-16 Saqib Hoffman [place] of 17:04:00 [facility] BASIC METABOLIC PANEL (NA, K, CL, 2021-03-16 Barak Duran University of CO2, GLUCOSE, BUN, CREATININE, 17:04:00 [facility] POCT GLUCOSE (AUTOMATED) 2021-03-16 Lamine Duran ity of 13:40:00 [facility] POCT GLUCOSE (AUTOMATED) 2021-03-16 Lamine Duran [facility] ity of 13:40:00 [facility] POCT GLUCOSE (AUTOMATED) 2021-03-16 Lamine Duran [facility] ity of 13:40:00 [facility] MAGNESIUM 2021-03-16 Saqib Hoffman [place] of 11:11:00 [facility] HEPATIC FUNCTION PANEL ([id number]) 2021-03-16 Lamine Duran U niversity of (ALB,T.PRO,BILI 11:11:00 [place] [facility] T,BU/BC,ALT,AST,ALK PHOS) Branch BASIC METABOLIC PANEL (NA, K, CL, 2021-03-16 Barak Duran [place] of CO2, GLUCOSE, BUN, CREATININE, 11:11:00 [facility] Medical CA) Branch CBC WITH DIFF 2021-03-16 Lamine Duran [place] of 11:11:00 [facility] GLYCOSYLATED HEMOGLOBIN (A1C) 2021-03-16 Lamine Duran Un iversity of 11:11:00 [facility] PROCALCITONIN 2021-03-16 Saqib Hoffman [place] of 11:11:00 [facility] MAGNESIUM 2021-03-16 Saqib Hoffman [place] of 11:11:00 [facility] HEPATIC FUNCTION PANEL (00231) 2021-03-16 Lamine Duran niversity of (ALB,T.PRO,BILI 11:11:00 [place] [facility] T,BU/BC,ALT,AST,ALK PHOS) Branch BASIC METABOLIC PANEL (NA, K, CL, 2021-03-16 Barak Duran [place] of CO2, GLUCOSE, BUN, CREATININE, 11:11:00 [place] [facility] [place]) Branch CBC WITH DIFF 2021-03-16 Lamine Duran [place] of 11:11:00 [facility] GLYCOSYLATED HEMOGLOBIN (A1C) 2021-03-16 Lamine Duran Un iversity of 11:11:00 [facility] PROCALCITONIN 2021-03-16 Saqib Hoffman [place] of 11:11:00 [facility] CBC WITH DIFF 2021-03-16 Lamine Duran [place] of 11:11:00 [facility] BASIC METABOLIC PANEL (NA, K, CL, 2021-03-16 Barak Duran [facility] of CO2, GLUCOSE, BUN, CREATININE, 11:11:00 [facility] CA) Branch HEPATIC FUNCTION PANEL ([id number]) 2021-03-16 Lamine Duran niversity of (ALB,T.PRO,BILI 11:11:00 [facility],BU/BC,ALT,AST,ALK PHOS) [place] PROCALCITONIN 2021-03-16 Yasmin [facility] of 11:11:00 [facility] MAGNESIUM 2021-03-16 [facility] of 11:11:00 [facility] GLYCOSYLATED HEMOGLOBIN (A1C) 2021-03-16 Lamine Duran iversity of 11:11:00 [facility] CT ABDOMEN PELVIS W WO CONTRAST 2021-03-16 [facility] [place] of 04:30:06 [facility] CT THORAX W WO CONTRAST 2021-03-16 [facility] of 04:30:06 [facility] CT ABDOMEN PELVIS W WO CONTRAST 2021-03-16 [facility] Hospital[facility]ou[facility]acar [facility] of 04:30:06 [facility] CT THORAX W WO CONTRAST 2021-03-16 [facility] sity of 04:30:06 [facility] CT THORAX W WO CONTRAST 2021-03-16 [facility] sity of 04:30:06 [facility] CT ABDOMEN PELVIS W WO CONTRAST 2021-03-16 [facility] [place] of 04:30:06 [facility] POCT GLUCOSE (AUTOMATED) 2021-03-15 Lamine Duran [facility] ity of 21:34:00 [facility] POCT GLUCOSE (AUTOMATED) 2021-03-15 Lamine Duran [facility] ity of 21:34:00 [facility] POCT GLUCOSE (AUTOMATED) 2021-03-15 Lamine Duran [facility] ity of 21:34:00 [facility] URINALYSIS 2021-03-15 Cy Larsen [place] of 18:28:00 [facility] URINALYSIS 2021-03-15 Cy Larsen [place] of 18:28:00 [facility] URINALYSIS 2021-03-15 Cy Larsen [place] of 18:28:00 [facility] CT HEAD WO CONTRAST 2021-03-15 Cy Larsen [place] o f 18:15:42 [facility] CT HEAD WO CONTRAST 2021-03-15 Cy Larsen [place] o f 18:15:42 [facility] CT HEAD WO CONTRAST 2021-03-15 Cy Larsen o f 18:15:42 [facility] XR CHEST 1 VW 2021-03-15 Cy Larsen [place] of 18:15:12 [facility] XR CHEST 1 VW 2021-03-15 Cy Larsen [place] of 18:15:12 [facility] XR CHEST 1 VW 2021-03-15 Cy Larsen [place] of 18:15:12 [facility] CONSENT/REFUSAL FOR DIAGNOSIS AND 2021-03-15 Doctor Tenzin cardona [facility] 17:58:44 Albin [facility] CONSENT/REFUSAL FOR DIAGNOSIS AND 2021-03-15 Doctor Tenzin cardona [facility] 17:58:44 Albin [facility] CONSENT/REFUSAL FOR DIAGNOSIS AND 2021-03-15 [facility] 17:58:44 Albin [facility] COVID-19 (ID NOW RAPID TESTING) 2021-03-15 Cy Larsen [place] of 17:58:00 [facility] LAB ONLY COVID INTERPRETATION 2021-03-15 Cy Larsen Un iversity of 17:58:00 [facility] COVID-19 (ID NOW RAPID TESTING) 2021-03-15 Cy Larsen [place] of 17:58:00 [facility] LAB ONLY COVID INTERPRETATION 2021-03-15 Cy Larsen Un iversity of 17:58:00 [facility] COVID-19 (ID NOW RAPID TESTING) 2021-03-15 Cy Larsen [place] of 17:58:00 [facility] LAB ONLY COVID INTERPRETATION 2021-03-15 Cy Larsen Un iversity of 17:58:00 [facility] BLOOD CULTURE SCREEN 2021-03-15 Cy Larsen [place] of 17:57:00 [facility] BLOOD CULTURE WORKUP 2021-03-15 Cy Larsen of 17:57:00 [facility] GRAM POSITIVE BLOOD PATHOGENS DNA 2021-03-15 Cy Larsen [facility] of PROBE-AEROBIC 17:57:00 [facility] BLOOD CULTURE SCREEN 2021-03-15 Cy Larsen of 17:57:00 [facility] BLOOD CULTURE WORKUP 2021-03-15 Cy Larsen of 17:57:00 [facility] GRAM POSITIVE BLOOD PATHOGENS DNA 2021-03-15 Cy Larsen [facility] of PROBE-AEROBIC 17:57:00 [facility] BLOOD CULTURE SCREEN 2021-03-15 Cy Larsen of 17:57:00 [facility] BLOOD CULTURE WORKUP 2021-03-15 Cy Larsen [place] of 17:57:00 [facility] GRAM POSITIVE BLOOD PATHOGENS DNA 2021-03-15 Cy Larsen [facility] of PROBE-AEROBIC 17:57:00 [facility] PHOSPHORUS 2021-03-15 Lamine Duran [place] of 17:56:00 [facility] MAGNESIUM 2021-03-15 Cy Larsen [place] of 17:56:00 [facility] TROPONIN I 2021-03-15 Cy Larsen [place] of 17:56:00 [facility] COMP. METABOLIC PANEL ([id number]) 2021-03-15 Cy Larsen iversity of 17:56:00 [facility] DIFF CONSULT INTERPRETATION 2021-03-15 Saqib Hoffman [facility] ersity of 17:56:00 [facility] CBC WITH DIFF 2021-03-15 Cy Larsen of 17:56:00 [facility] N-TERMINAL PRO-BNP 2021-03-15 Cy Larsen of 17:56:00 [facility] AC PANEL 21 + LACTIC ACID 2021-03-15 [facility] of 17:56:00 [facility] PHOSPHORUS 2021-03-15 Lamine Duran [place] of 17:56:00 [facility] MAGNESIUM 2021-03-15 Cy Larsen [place] of 17:56:00 [facility] TROPONIN I 2021-03-15 Cy Larsen of 17:56:00 [facility] COMP. METABOLIC PANEL ([id number]) 2021-03-15 Cy Larsen Un iversity of 17:56:00 [facility] DIFF CONSULT INTERPRETATION 2021-03-15 Saqib Hoffman [facility] ersity of 17:56:00 [facility] CBC WITH DIFF 2021-03-15 Cy Larsen of 17:56:00 [facility] N-TERMINAL PRO-BNP 2021-03-15 Cy Larsen [place] of 17:56:00 [facility] AC PANEL 21 + LACTIC ACID 2021-03-15 [facility] of 17:56:00 [facility] N-TERMINAL PRO-BNP 2021-03-15 Cy Larsen [place] of 17:56:00 [facility] CBC WITH DIFF 2021-03-15 Cy Larsen [place] of 17:56:00 [facility] COMP. METABOLIC PANEL ([id number]) 2021-03-15 Cy Larsen Un iversity of 17:56:00 [facility] MAGNESIUM 2021-03-15 Cy Larsen [place] of 17:56:00 [facility] TROPONIN I 2021-03-15 Cy Larsen of 17:56:00 [facility] AC PANEL 21 + LACTIC ACID 2021-03-15 Cy Larsen Univer sity of 17:56:00 [facility] PHOSPHORUS 2021-03-15 Lamine Duran [place] of 17:56:00 [facility] DIFF CONSULT INTERPRETATION 2021-03-15 Saqib Hoffman [facility] ersity of 17:56:00 [facility] HB ECG ROUTINE & RHYTHM STRIP 2021-03-15 Cy Larsen Un iversity of 17:50:45 [facility] HB ECG ROUTINE & RHYTHM STRIP 2021-03-15 Cy Larsen Un iversity of 17:50:45 [facility] HB ECG ROUTINE & RHYTHM STRIP 2021-03-15 Cy Larsen Un iversity of 17:50:45 [facility] HOSPITAL ADMISSION 2021-03-15 [facility] 06:[facility]00 Albin [facility] EMERGENCY DEPARTMENT DOCUMENTS 2021-03-15 [facility] 06:01:00 Albin [facility] HOSPITAL ADMISSION 2021-03-15 [facility] 06:01:00 Albin [facility] HOSPITAL ADMISSION 2021-03-15 [facility] 06:01:00 Albin [facility] URINALYSIS 2021-03-12 Keenan, [facility] of 21:28:00 [facility] XR CHEST 1 VW 2021-03-12 Keenan, [facility] of 19:27:04 [facility] CT HEAD WO CONTRAST 2021-03-12 Rio [facility] o f 19:09:59 [facility] CBC WITH DIFF 2021-03-12 Keenan, [facility] of 18:55:00 [facility] COMP. METABOLIC PANEL ([id number]) 2021-03-12 Antonio Keenan iversity of 18:55:00 [facility] N-TERMINAL PRO-BNP 2021-03-12 [facility] of 18:55:00 [facility] TROPONIN I 2021-03-12 Keenan, [facility] of 18:55:00 [facility] COVID-19 (ID NOW RAPID TESTING) 2021-03-12 [facility] of 18:55:00 [facility] LAB ONLY COVID INTERPRETATION 2021-03-12 Antonio Keenan iversity of 18:55:00 [facility] HB ECG ROUTINE & RHYTHM STRIP 2021-03-12 Antonio Keenan iversity of 18:44:43 [facility] NOTICE OF PRIVACY PRACTICES 2021-03-12 Doctor Unassigned, U niversity of 18:40:43 Albin [facility] CONSENT/REFUSAL FOR DIAGNOSIS AND 2021-03-12 Doctor Cadyssgénesis cardona [facility] 18:38:09 Albin [facility] INSURANCE CORRESPONDENCE 2021-03-10 Doctor Unassigned, Univ ersity of 06:01:00 Albin [facility] INSURANCE CORRESPONDENCE 2021-03-09 Doctor Unassigned, Univ ersity of 06:01:00 Albin [facility] HYPERCOAGULABLE EVALUATION-LT 2021-03-03 Jia Santamaria Un iversity of BLUE 16:12:00 Vilaschandra [facility] HYPERCOAGULABLE EVALUATION - SST 2021-03-03 Jia Santamaria [place] of 16:12:00 [facility] HYPERCOAGULABLE EVALUATION-LAV 2021-03-03 Jia Santamaria U niversity of 16:12:00 [facility] BASIC METABOLIC PANEL (NA, K, CL, 2021-03-03 Jia Santamaria [place] of CO2, GLUCOSE, BUN, CREATININE, 16:12:00 [facility] VITAMIN B1 (THIAMINE), WHOLE 2021-03-03 Jia Santamaria Uni versity of BLOOD 16:12:00 [facility] HEMATOCRIT 2021-03-03 [facility]io [facility] 16:12:00 [facility] RPR (QUANTITATIVE) 2021-03-03 Rosalio [facility] 16:12:00 [facility] VITAMIN B12, LEVEL 2021-03-03 Jia Santamaria [place] of 16:12:00 [facility] HYPERCOAGULABLE TESTS AND 2021-03-[address] [facility] sity of EVALUATION 16:12:00 [facility] SEDIMENTATION RATE 2021-03-03 Rosalio Jia [place] of 16:12:00 [facility] C-REACTIVE PROTEIN 2021-03-03 Rosalio Jia [place] of 16:12:00 [facility] FOLATE 2021-03-03 Rosalio Jia [place] of 16:12:00 [facility] WB FOLATE 2021-03-03 Jia Santamaria [place] of 16:12:00 [facility] FACTOR 5 LEIDEN 2021-03-03 Rosalio Jia [place] of 16:12:00 [facility] FACTOR 2 [id number] MUTATION 2021-03-[address] [facility] sity of 16:12:00 [facility] ANTICARDIOLIPIN ANTIBODIES 2021-03-03 [facility] of 16:12:00 [facility] ANTI-B2 GLYCOPROTEIN I AB 2021-03-[address] [facility] sity of 16:12:00 [facility] PROTEIN C ACTIVITY 2021-03-03 Jia Santamaria [place] of 16:12:00 [facility] FREE PROTEIN S 2021-03-03 Jia Santamaria [place] of 16:12:00 [facility] ANTITHROMBIN ACTIVITY 2021-03-03 Jia Santamaria [place] of 16:12:00 [facility] FIBRINOGEN 2021-03-03 Rosalio Jia [place] of 16:12:00 [facility] MISCELLANEOUS SEND OUT TEST 2021-03-03 Jia Santamaria [facility] ersity of 16:12:00 [facility] DIAGNOSTIC MANAGEMENT TEAM; 2021-03-03 Jia [facility] SPECIAL COAGULATION EVALUATION 16:12:00 [facility] CARDIAC DEVICE CHECK - NURSE - 2021-02-26 Syklar [facility] INTERROGATION LOOP RECORDER 17:43:00 [facility] PATIENT FINANCIAL POLICY 2021-02-26 Doctor [facility] 06:01:00 Albin [facility] CONSENT/REFUSAL FOR DIAGNOSIS AND 2021-02-26 Doctor Tenzin [facility] TREATMENT 06:01:00 Albin [facility] NO SHOW OR MISSED APPOINTMENT 2021-02-26 Doctor [facility] POLICY ACKNOWLEDGEMENT 06:01:00 Albin [facility] NOTICE OF BILLING PRACTICES FOR 2021-02-26 Doctor Kathleen barrientos [place] of MEDICARE PATIENTS 06:01:00 Albin [facility] POWER OF OPERATING MANAGER 2021-02-26 Doctor [facility]oma [facility] 06:01:00 Albin [facility] ASSIGNMENT OF BENEFITS 2021-02-[address] [facility] sity of 06:01:00 Albin [facility] POCT GLUCOSE (AUTOMATED) 2021-02-11 Marcel Concepcion ity of 01:22:00 [facility] POCT GLUCOSE (AUTOMATED) 2021-02-10 Marcel Concepcion [facility] ity of 21:24:00 [facility] POCT GLUCOSE (AUTOMATED) 2021-02-10 Marcel Concepcion [facility] ity of 16:57:00 [facility] POCT GLUCOSE (AUTOMATED) 2021-02-10 Michael, Marcel [facility] ity of 12:40:00 [facility] POCT GLUCOSE (AUTOMATED) 2021-02-10 Michael, Marcel [facility] ity of 01:02:00 [facility] POCT GLUCOSE (AUTOMATED) 2021-02-09 Michael, Marcel [facility] ity of 23:01:00 [facility] TRANSESOPHAGEAL ECHO (JESSICA) 2021-02-[address] [facility] rsity of COMPLETE W/ DOPPLER AND COLOR 20:55:00 [facility]) 2021-02-09 Michael, Marcel Univers ity of 16:49:00 [facility] POCT GLUCOSE (AUTOMATED) 2021-02-09 Michael, Macrel Univers ity of 12:33:00 [facility] PROTHROMBIN TIME / INR 2021-02-09 Zuly [facility] y of 08:56:00 [facility] BASIC METABOLIC PANEL (NA, K, CL, 2021-02-09 Zuly [facility] of CO2, GLUCOSE, BUN, CREATININE, 08:56:00 [place] [facility] [place] Branch MAGNESIUM 2021-02-09 Zuly, [facility] of 08:56:00 [facility] DISCLOSURE AND CONSENT, MEDICAL 2021-02-09 Doctor Kathleen barrientos [place] of AND SURGICAL PROCEDURES 05:01:00 Albin [facility] POCT GLUCOSE (AUTOMATED) 2021-02-09 Marcel Concepcion Univers ity of 01:30:00 [facility] POCT GLUCOSE (AUTOMATED) 2021-02-08 Andres Concepcionun Univers ity of 22:08:00 [facility] MR BRAIN W WO CONTRAST 2021-02-08 [facility] 19:08:00 [facility] POCT GLUCOSE (AUTOMATED) 2021-02-08 Michael, Marcel [facility] ity of 16:53:00 [facility] CBC WITH DIFF 2021-02-08 Zuly [facility] of 14:49:00 [facility] BASIC METABOLIC PANEL (NA, K, CL, 2021-02-08 Zuly [facility] of CO2, GLUCOSE, BUN, CREATININE, 14:49:00 [place] [facility] [place]) Branch MAGNESIUM 2021-02-08 Zuly [facility] of 14:49:00 [facility] POCT GLUCOSE (AUTOMATED) 2021-02-08 Michael, [facility] ity of 14:20:00 [facility] POCT GLUCOSE (AUTOMATED) 2021-02-08 Michael, Marcel [facility] ity of 00:50:00 [facility] POCT GLUCOSE (AUTOMATED) 2021-02-07 Michael, Marcel Univers ity of 22:07:00 [facility] POCT GLUCOSE (AUTOMATED) 2021-02-07 Michael, [facility] ity of 17:37:00 [facility] POCT GLUCOSE (AUTOMATED) 2021-02-07 Michael, [facility] ity of 14:30:00 [facility] LIPID PANEL ([id number])(TOTAL 2021-02-[facility] Univer sity of CHOLESTEROL, TRIGLYCERIDES, HDL) 09:04:00 [facility] URIC ACID 2021-02-07 Zuly [facility] of 09:04:00 [facility] THYROID STIMULATING HORMONE 2021-02-07 Zuly [facility] ersity of 09:04:00 [facility] POCT GLUCOSE (AUTOMATED) 2021-02-07 Michael, [facility] ity of 01:12:00 [facility] CT THORAX W CONTRAST 2021-02-06 [facility] 23:35:22 [facility] EXTRA TUBE SST 2021-02-06 [facility] of 23:08:00 [facility] LIPID PANEL ([id number])(TOTAL 2021-02-[facility] Univer sity of CHOLESTEROL, TRIGLYCERIDES, HDL) 23:08:00 [facility] GLYCOSYLATED HEMOGLOBIN (A1C) 2021-02-06, Un iversity of 23:08:00 [facility] VERIFYNOW PRUTEST (P2Y12) 2021-02-[facility], Univer sity of 23:08:00 [facility] OSMOLALITY, SERUM OR PLASMA 2021-02-[facility], Univ ersity of 23:08:00 [facility] XR CHEST 2 VW 2021-02-06 Shine Oliva [place] of 17:09:00 [facility] URINALYSIS 2021-02-06 Shine Oliva [place] of 16:05:00 [facility] URINE DRUG (IMMUNOASSAY) - 2021-02-06 Shine Oliva Un iversity of COMPREHENSIVE DRUG SCREEN W/O 16:05:00 [place] [facility] SODIUM, URINE RANDOM 2021-02-06 [facility] 16:05:00 [facility] OSMOLALITY URINE 2021-02-06 [facility] 16:05:00 [facility] CT HEAD WO CONTRAST 2021-02-06 [facility] 15:48:02 [facility] CT STROKE ANGIOGRAM HEAD 2021-02-06 Shine Oliva [facility] ersity of 15:48:02 [facility] CT STROKE ANGIOGRAM NECK 2021-02-06 Shine Oliva [facility] ersity of 15:48:02 [facility] CBC WITH DIFF 2021-02-06 Shine Oliva [place] of 15:23:00 [facility] COMP. METABOLIC PANEL ([id number]) 2021-02-06 Shine Oliva [place] of 15:23:00 [facility] TROPONIN I 2021-02-06 Shine Oliva [place] of 15:23:00 [facility] N-TERMINAL PRO-BNP 2021-02-06 Shine Oliva [place] of 15:23:00 [facility] COVID-19 (ID NOW RAPID TESTING) 2021-02-06 Todd Oliva [place] of 15:23:00 [facility] LAB ONLY COVID INTERPRETATION 2021-02-06 Shine Oliva [place] of 15:23:00 [facility] GLYCOSYLATED HEMOGLOBIN (A1C) 2021-[facility] iversity of 15:23:00 [facility] VITAMIN B12, LEVEL 2021-02-06 [facility] of 15:23:00 [facility] HB ECG ROUTINE & RHYTHM STRIP 2021-02-06 Shine Oliva [place] of 14:59:04 [facility] CONSENT/REFUSAL FOR DIAGNOSIS AND 2021-02-06 Doctor Tenzin cardona [facility] 14:35:03 Albin [facility] HOSPITAL ADMISSION 2021-02-06 Doctor [facility] 05:01:00 Albin [facility] Encounters Start End Encounter Admission Attending Care Care Encounter Source Date/Time Date/Time Type Type Clinicians Facility Department ID 2021-05-05 2021-05-05 Outpatient R [facility] [id number] Univers 12:00:00 12:00:00 JIA [id number] ity of [facility] 2021-05-05 2021-05-05 [facility] [id number] Univers 12:00:00 12:00[facility]00 [facility] 2021-05-04 2021-05-04 Letter [facility] [id number] Univers 00:00:00 00:00:00 (Out) Jia HEALTH [id number] it y of Vilaschandr CLEAR [id number] [facility] REYES [phone] [address] OFFICE BUILDING 2021-04-16 2021-04-16 Telephone [facility] [id number] Univers 00:00:00 00:00:00 Jia HEALTH [id number] it y of Vilaschandr CLEAR [id number] [place] a REYES [id number] [address] OFFICE BUILDING 2021-03-15 2021-04-07 Inpatient [facility] [id number] Univers 11:49:00 17:17:00 JIA ity of [facility] 2021-03-15 2021-04-07 Hospital Laura Peck [id number] Univers 11:49:00 17:17:00 Encounter Cy Larsen [id number] ity of [facility] [id number] [place] Maritza Fajardo [facility] [id number] Medical Michael, Marcel [address] Jia Santamaria 2021-03-30 2021-03-30 Surgery [facility] [id number] Univers 09:03:00 10:22:00 Clyde ICAL [id number] it y of SCIENCES [id number] [place] as BLDG [id number] [facility] 020 Branch 2021-03-27 2021-03-27 Anesthesia Jim Lorenzo [id number] Univers 12:34:00 15:06:00 Event Martina Fowler [id number] ity of [id number] Medica l .8 Branch 2021-03-20 2021-03-20 Travel [id number] Univers 00:00:00 00:00:00 89236.1.1 350.1.13.10 ity of 3.104.2.7 [place].3.698 [place] .3.593937 084.8 Medica l .8 Branch 2021-03-18 2021-03-18 Patient Santamaria, 1.2.840.6 [id number] [facility] Univers 00:00:00 00:00:00 Secure Msg Jia 00633.1.1 i [facility] [place] .3.977017 Medica l .8 Branch 2021-03-15 2021-03-15 Travel 1.2.840.1 1.2.285.880 3036 [id number] Univers 00:00:00 00:00:00 74573.1.1 350.1.13.10 ity of 3.104.2.7 4.[place]7.3.698 [place] .3.813702 084.8 Medica l .8 Branch 2021-03-12 2021-03-12 Emergency Keenan, 1.2.840.5 [id number] Univers 12:41:00 16:45:00 [place] 15035.1.1 ity of 3.104.2.7 [place] .3.557659 Medica l .8 Branch 2021-03-12 2021-03-12 Travel 1.2.840.1 1.2.097.093 [id number] Univers 00:00:00 00:00:00 38703.1.1 350.1.13.10 ity of 3.104.2.7 4.[place].7.3.698 [place] .3.229105 084.8 Medica l .8 [place] 2021-03-10 2021-03-10 Orders Doctor ARMEN 1.2.840.114 [id number] Univers 00:00:00 00:00:00 Only Unassigned, FREDDY 350.1.13.10 ity of [place] [facility] 4.2.7.2.686 [place] as [id number] [facility] 009 [place] 2021-03-10 2021-03-10 Case Herminio, 1.2.840.1 [id number] Univers 00:00:00 00:00:00 Management Salik 88430.1.1 i ty of 3.104.2.7 [place] .3.107916 Medica l .8 [place] 2021-03-10 2021-03-10 Patient Doctor 1.2.840.0 [id number] Univers 00:00:00 00:00:00 Secure Msg Unassigned, 53772.1.1 ity of [place] 3.104.2.7 [place] .3.671819 Medica l .8 [place] 2021-03-04 2021-03-04 Telephone Rosalio 1.2.840.3 [id number] Univers 00:00:00 00:00:00 Jia 36343.1.1 ity of [place].2.7 [place] .3.917800 Medica l .8 Branch 2021-03-03 2021-03-03 Physical Therapist Assistant Jia Santamariaaschand 1 .2.840.8 [id number] Univers 10:00:00 10:05:36 Visit [facility] 00840.1.1 ity of 3.104.2.7 [place] .3.693453 Medica l .8 Branch 2021-03-03 2021-03-03 Office Adonis [facility] 1.2.840.1 1 [id number] Univers 09:30:00 10:00:00 Visit Herminio Blancacy 81610.1.1 ity of 3.104.2.7 [place] .3.613776 Medica l .8 Branch 2021-03-03 2021-03-03 Telephone Santamaria, 1.2.840.5 [id number] Univers 00:00:00 00:00:00 Jia 46005.1.1 ity of [place].2.7 [place] .3.022360 Medica l .8 Branch 2021-03-02 2021-03-02 Office Santamaria, 1.2.840.0 [id number] Univers 11:00:00 12:00:00 Visit Jia 48399.1.1 ity of [place].2.7 [place] .3.568437 Medica l .8 Branch 2021-02-26 2021-02-26 [facility], 1.2.840.9 [id number] Univers 11:00:00 23:59:00 Encounter Chad 26514.1.1 ity of 3.104.2.7 [place] .3.202880 Medica l .8 Branch 2021-02-26 2021-02-26 Travel 1.2.840.1 1.2.553.063 [id number] [id number] Univers 00:00:00 00:00:00 77881.1.1 350.1.13.10 ity of 3.104.2.7 4[place]7.3.698 [place] .3.986110 084.8 Medica l .8 Branch 2021-02-11 2021-02-11 [facility], 1.2.840.2 [id number] Univers 00:00:00 00:00:00 of Care Shira Rubio 37076.1.1 ity of 3.104.2.7 [place] .3.302470 Medica l .8 Branch 2021-02-06 2021-02-10 Hospital Esther Lara 1.2.840.1 [id number] Univers 09:34:00 21:22:00 Encounter Marcel Concepcion 80667.1.1 ity of 3.104.2.7 [place] .3.750359 Medica l .8 Branch 2021-02-10 2021-02-10 Anesthesia Lay, 1.2.840.2 [id number] Univers 15:59:40 15:59:40 Event Chloe Rubio 75451.1.1 ity of 3.104.2.7 [place] .3.867162 Medica l .8 Branch 2021-02-06 2021-02-06 Travel 1.2.840.1 1.2.102.774 [id number] [id number] Univers 00:00:00 00:00:00 71659.1.1 350.1.13.10 ity of 3.104.2.7 4[place]7.3.698 [place] .3.640436 084.8 Medica l .8 Branch 2021-01-07 2021-01-07 Inpatient 3 LAUR[place]A, [facility] [id number] 10:57:00 23:59:00 NITHYA Spears ukes - N, [address] BYPASS, (LUF/[place] [address] 2021-01-07 2021-01-07 Inpatient E CAROL SALCIDO [facility] [id number] 12:00:00 15:15:00 ANTONIA Spears ukes - N, [address] BYPASS, (LUF/[place] [address] 2021-01-07 2021-01-07 Inpatient [facility] [id number] -[id number] [facility] 00:00:00 00:00:00 ANTONIA NAM [id number], [id number] l BYPASS, (LUF/[place] [address] 2021-01-07 2021-01-07 Inpatient [facility] [id number] -[id number] [facility] 00:00:00 00:00:00 ANTONIA NAM [phone] [facility], [phone] [id number] l BYPASS, (LUF/[place] [address] 2018 2018 ESSENTIAL O LAURORA, [facility] [id number] 10:42:00 23:59:00 PRIMARY NITHYA NAM L ukes - HYPERTENSI N, [address] l BYPASS, (LUF/[place] [address] Results Test Description Test Time Test Comments Results Result Comments Source POCT GLUCOSE (AUTOMATED) 2021-04-07 17:19:06 Test Item Value Reference Range Interpretation Comme nts POCT GLU (test code = 4529302509) 91 mg/dL 70-110 Lab Interpretation (test code = 17912-4) Normal [facility]. Sendout- anca vasculitis [id number] 2021-04-07 14:16:32 Test Item Value Reference Range Interpretation Comments Miscellaneous Test (test See scanned report code = 7737553192) Performing Lab (test code ARUP = 3731191331) [facility] GLUCOSE (AUTOMATED)2021-04-07 13:15:52 Test Item Value Reference Range Interpretation Comments POCT GLU (test code = 4851782411) 99 mg/dL 70-110 Lab Interpretation (test code = Normal 82653-3) [facility] GLUCOSE (AUTOMATED)2021-04-06 22:48:34 Test Item Value Reference Range Interpretation Comments POCT GLU (test code = 8486526256) 118 mg/dL 70-110 H Lab Interpretation (test code = Abnormal 15523-8) [facility] GLUCOSE (AUTOMATED)2021-04-06 16:57:15 Test Item Value Reference Range Interpretation Comments POCT GLU (test code = 5452765605) 140 mg/dL 70-110 H Lab Interpretation (test code = Abnormal 73124-2) [facility] Sendout- [id number] : [id number] 15:11:18 Test Item Value Reference Range Interpretation Comments Miscellaneous Test (test See scanned report code = 1854336053) Performing Lab (test code ARUP = 4531694682) [facility]. Sendout- [id number] : HSV by [id number] 14:58:33 Test Item Value Reference Range Interpretation Comments Miscellaneous Test (test See scanned report code = 9490303124) Performing Lab (test code ARUP = 4762272539) [facility]. Sendout- anca vasculitis [id number] 2021-04-06 14:56:02 Test Item Value Reference Range Interpretation Comments Miscellaneous Test (test See scanned report code = 7595946815) Performing Lab (test code ARUP = 3125290021) [facility] GLUCOSE (AUTOMATED)2021-04-06 14:06:38 Test Item Value Reference Range Interpretation Comments POCT GLU (test code = 4531892154) 132 mg/dL 70-110 H Lab Interpretation (test code = Abnormal 27970-4) [facility] [place] [facility] METABOLIC PANEL (NA, K, CL, CO2, GLUCOSE, BUN, CREATININE, CA)2021-04-06 11:32:12 Test Item Value Reference Range Interpretation Comments NA (test code = 129 mmol/L 135-145 L 5210200037) K (test code = 4.2 mmol/L 3.5-5.0 7921549536) CL (test code = 101 mmol/L 98-108 7896789505) CO2 TOTAL (test code = 24 mmol/L 23-31 2634892386) AGAP (test code = 2-16 8183193459) BUN (test code = 13 mg/dL 7-23 0576489102) GLUCOSE (test code = 132 mg/dL 70-110 H 9289399048) CREATININE (test code = 0.54 mg/dL 0.60-1.25 L 0510619664) CALCIUM (test code = 8.8 mg/dL 8.6-10.6 6928868282) eGFR (test code = mL/min/1.73m2 1675837470) POP (test code = POP) Association of Glomerular Filtration Rate (GFR) and Staging of Kidney Disease* + --+ --+ ------+| GFR (mL/min/1.73 m2) ?| With Kidney Damage ?| ?Without Kidney Damage+ --------+ --------+ +| ?>90 ?| ?Stage one ?| ? Normal ?+ ---+ ---+ -------+| ?60-89 ?| ?Stage two ?| ? Decreased GFR ? + --+ --+ ------+| ?30-59 ?| ?Stage three ?| ? Stage three ? + --+ --+ ------+| ?15-29 ?| ?Stage four ? | ? Stage four ?+ ---+ ---+ -------+| ?<15 (or dialysis) ? ?| ?Stage five ? | ? Stage five ?+ ---+ ---+ -------+ *Each stage assumes the associated GFR level has been in effect for at least three months. ?Stages 1 to 5, with or without kidney disease, indicate chronic kidney disease. Notes: Determination of stages one and two (with eGFR >59mL/min/1.73 m2) requires estimation of kidney damage for at least three months as defined by structural or functional abnormalities of the kidney, manifested by either:Pathological abnormalities or Markers of kidney damage (including abnormalities in the composition of the blood or urine or abnormalities in imaging tests). Lab Interpretation Abnormal (test code = 52743-7) [facility] WITH [id number] 11:05:49 Test Item Value Reference Range Interpretation Comments WBC (test code = See_Comment [Automated 2390-2) message] The sy stem which generated this result transmitted reference range : 4.20 - 10.70 10*3/?L. The reference range was not used to interpret this result as normal/abnormal . RBC (test code = See_Comment L [Automated 849-8) message] The sy stem which generated this result transmitted reference range : 4.26 - 5.52 10*6/?L. The reference range was not used to interpret this result as normal/abnormal . HGB (test code = 9.4 g/dL 12.2-16.4 L 718-7) HCT (test code = 29.1 % 38.4-49.3 L 4544-3) MCV (test code = 96.0 fL 81.7-95.6 H 787-2) MCH (test code = 31.0 pg 26.1-32.7 785-6) MCHC (test code = 32.3 g/dL 31.2-35.0 786-4) RDW-SD (test code = 55.3 fL 38.5-51.6 H 71113-2) RDW-CV (test code = 15.7 % 12.1-15.4 H 788-0) PLT (test code = See_Comment H [Automated 777-3) message] The sy stem which generated this result transmitted reference range : 150 - 328 10*3/ ?L. The reference r jalen was not used to interpret this result as normal/abnormal . MPV (test code = 9.1 fL 9.8-13.0 L 98881-0) NRBC/100 WBC (test See_Comment [Automat ed code = 3695201254) message] The system which generated this result transmitted reference range : 0.0 - 10.0 /100 WBCs. The refer ence range was not u sed to interpret th is result as normal/abnormal . NRBC x10^3 (test code <0.01 See_Comment [Auto mated = 3180315135) message] The s ystem which generated this result transmitted reference range : 10*3/?L. The reference range was not used to interpret this result as normal/abnormal . GRAN MAT (NEUT) % 76.7 % (test code = 770-8) IMM GRAN % (test code 0.40 % = 7357063980) LYMPH % (test code = 13.1 % 736-9) MONO % (test code = 6.8 % 5905-5) EOS % (test code = 2.5 % 713-8) BASO % (test code = 0.5 % 706-2) GRAN MAT x10^3(ANC) 7.87 10*3/uL 1.99-6.95 H (test code = 8340705664) IMM GRAN x10^3 (test 0.04 10*3/uL 0.00-0.06 code = 4669353637) LYMPH x10^3 (test code 1.34 10*3/uL 1.09-3.23 = 731-0) MONO x10^3 (test code 0.70 10*3/uL 0.36-1.02 = 742-7) EOS x10^3 (test code = 0.26 10*3/uL 0.06-0.53 711-2) BASO x10^3 (test code 0.05 10*3/uL 0.01-0.09 = 704-7) Lab Interpretation Abnormal (test code = 19037-4) [facility] [id number] 01:10:10ANA - Pathologist InterpretationANA HEp-2 IIFA Pathologist Interpretation Report Patient Name: Joe Duran ? ?Antinuclear Antibody (JIM) Test (Anti-Cell Antibodies Test) Indirect Immunofluorescence Assay on HEp-2 Cells Screening titer: 1:80 (adults, > 18 years old), 1:40 (pediatrics, <= 18 years old)?Result: The antinuclear antibody (JIM) screen is negative on interpretation. Remarks:This patient has a negative antinuclear antibody (JIM) screening test. This suggests that the patient likely does not have a systemic autoimmune rheumatic disease that is strongly associated with a positive JIM, such as systemic lupus erythematosus (JIM positive in ~95-100%), systemic sclerosis (JIM positive in ~60-80%), or the following disorders in which JIM positivity is part of the diagnostic criteria: drug-induced lupus, autoimmune hepatitis, or mixed connective tissue disease. However, the JIM may be negative in rare cases of systemic lupus erythematosus and systemic sclerosis.The JIM may also be negative in ~20% of patients presenting with autoimmune hepatitis. Additionally,JIM positivity is less sensitive in the diagnosis of Sjogren's syndrome (~40-70%) and dermatomyositis /polymyositis (~30-80%). JIM is not useful for the diagnosis of rheumatoid arthritis, multiple sclerosis, idiopathic thrombocytopenic purpura, thyroid disease, discoid lupus, and fibromyalgia. (https:// pubmed.ncbi.nlm.nih.gov/78736463/, https://pubmed.ncbi.nlm.nih.gov/37605748/) ? ? Therefore, a diagnosis cannot be based exclusively on JIM detection and/or pattern and thus should be made via the integration of patient history, physical exam findings, and other diagnostic tests as clinically indicated. Lillie Goldberg MD ?04/05/2021 ?7:09 [facility]2021-04-05 21:40:00 Test Item Value Reference Range Interpretation Comments POCT GLU (test code = 3524730257) 132 mg/dL 70-110 H Lab Interpretation (test code = Abnormal 90157-6) [facility] GLUCOSE (AUTOMATED)2021-04-05 18:10:53 Test Item Value Reference Range Interpretation Comments POCT GLU (test code = 5069513571) 138 mg/dL 70-110 H Lab Interpretation (test code = Abnormal 77755-3) [facility] GLUCOSE (AUTOMATED)2021-04-05 14:04:11 Test Item Value Reference Range Interpretation Comments POCT GLU (test code = 6488008282) 116 mg/dL 70-110 H Lab Interpretation (test code = Abnormal 92566-9) [facility] GLUCOSE (AUTOMATED)2021-04-04 21:41:22 Test Item Value Reference Range Interpretation Comments POCT GLU (test code = 7435435847) 137 mg/dL 70-110 H Lab Interpretation (test code = Abnormal 02487-9) [facility] GLUCOSE (AUTOMATED)2021-04-04 18:08:49 Test Item Value Reference Range Interpretation Comments POCT GLU (test code = 0128878584) 152 mg/dL 70-110 H Lab Interpretation (test code = Abnormal 99534-7) [facility] GLUCOSE (AUTOMATED)2021-04-04 14:08:44 Test Item Value Reference Range Interpretation Comments POCT GLU (test code = 8339757284) 133 mg/dL 70-110 H Lab Interpretation (test code = Abnormal 57416-9) [facility] GLUCOSE (AUTOMATED)2021-04-04 01:42:09 Test Item Value Reference Range Interpretation Comments POCT GLU (test code = 7589706544) 150 mg/dL 70-110 H Lab Interpretation (test code = Abnormal 69398-0) [facility] GLUCOSE (AUTOMATED)2021-04-03 22:52:45 Test Item Value Reference Range Interpretation Comments POCT GLU (test code = 8941690285) 139 mg/dL 70-110 H Lab Interpretation (test code = Abnormal 12895-3) [facility] WITH [id number] 21:30:06 Test Item Value Reference Range Interpretation Comments WBC (test code = See_Comment H [Automated 6690-2) message] The sy stem which generated this result transmitted reference range : 4.20 - 10.70 10*3/?L. The reference range was not used to interpret this result as normal/abnormal . RBC (test code = See_Comment L [Automated 789-8) message] The sy stem which generated this result transmitted reference range : 4.26 - 5.52 10*6/?L. The reference range was not used to interpret this result as normal/abnormal . HGB (test code = 9.0 g/dL 12.2-16.4 L 718-7) HCT (test code = 27.7 % 38.4-49.3 L 4544-3) MCV (test code = 97.9 fL 81.7-95.6 H 787-2) MCH (test code = 31.8 pg 26.1-32.7 785-6) MCHC (test code = 32.5 g/dL 31.2-35.0 786-4) RDW-SD (test code = 58.4 fL 38.5-51.6 H 64664-3) RDW-CV (test code = 16.6 % 12.1-15.4 H 788-0) PLT (test code = See_Comment H [Automated 777-3) message] The sy stem which generated this result transmitted reference range : 150 - 328 10*3/ ?L. The reference r jalen was not used to interpret this result as normal/abnormal . MPV (test code = 9.2 fL 9.8-13.0 L 34530-4) NRBC/100 WBC (test See_Comment [Automat ed code = 3671175340) message] The system which generated this result transmitted reference range : 0.0 - 10.0 /100 WBCs. The refer ence range was not u sed to interpret th is result as normal/abnormal . NRBC x10^3 (test code <0.01 See_Comment [Auto mated = 1989051329) message] The s ystem which generated this result transmitted reference range : 10*3/?L. The reference range was not used to interpret this result as normal/abnormal . GRAN MAT (NEUT) % 78.6 % (test code = 770-8) IMM GRAN % (test code 0.40 % = 0583506867) LYMPH % (test code = 11.9 % 736-9) MONO % (test code = 6.2 % 5905-5) EOS % (test code = 2.5 % 713-8) BASO % (test code = 0.4 % 706-2) GRAN MAT x10^3(ANC) 8.91 10*3/uL 1.99-6.95 H (test code = 7354522859) IMM GRAN x10^3 (test 0.05 10*3/uL 0.00-0.06 code = 4166840709) LYMPH x10^3 (test code 1.35 10*3/uL 1.09-3.23 = 731-0) MONO x10^3 (test code 0.70 10*3/uL 0.36-1.02 = 742-7) EOS x10^3 (test code = 0.28 10*3/uL 0.06-0.53 711-2) BASO x10^3 (test code 0.04 10*3/uL 0.01-0.09 = 704-7) Lab Interpretation Abnormal (test code = 00261-2) [facility] GLUCOSE (AUTOMATED)2021-04-03 18:48:37 Test Item Value Reference Range Interpretation Comments POCT GLU (test code = 1919085421) 111 mg/dL 70-110 H Lab Interpretation (test code = Abnormal 21866-9) [facility] GLUCOSE (AUTOMATED)2021-04-03 13:33:21 Test Item Value Reference Range Interpretation Comments POCT GLU (test code = 0492892383) 105 mg/dL 70-110 Lab Interpretation (test code = Normal 99310-9) [facility] [place] [facility] METABOLIC PANEL (NA, K, CL, CO2, GLUCOSE, BUN, CREATININE, CA)2021-04-03 00:52:56 Test Item Value Reference Range Interpretation Comments NA (test code = 132 mmol/L 135-145 L 7448097486) K (test code = 4.3 mmol/L 3.5-5.0 7979225847) CL (test code = 103 mmol/L 98-108 0044427738) CO2 TOTAL (test code = 22 mmol/L 23-31 L 4597320575) AGAP (test code = 2-16 7513842345) BUN (test code = 11 mg/dL 7-23 2146958007) GLUCOSE (test code = 157 mg/dL 70-110 H 9936570415) CREATININE (test code = 0.67 mg/dL 0.60-1.25 7818396275) CALCIUM (test code = 8.6 mg/dL 8.6-10.6 7578066521) eGFR (test code = mL/min/1.73m2 3489664477) POP (test code = POP) Association of Glomerular Filtration Rate (GFR) and Staging of Kidney Disease* + --+ --+ ------+| GFR (mL/min/1.73 m2) ?| With Kidney Damage ?| ?Without Kidney Damage+ --------+ --------+ +| ?>90 ?| ?Stage one ?| ? Normal ?+ ---+ ---+ -------+| ?60-89 ?| ?Stage two ?| ? Decreased GFR ? + --+ --+ ------+| ?30-59 ?| ?Stage three ?| ? Stage three ? + --+ --+ ------+| ?15-29 ?| ?Stage four ? | ? Stage four ?+ ---+ ---+ -------+| ?<15 (or dialysis) ? ?| ?Stage five ? | ? Stage five ?+ ---+ ---+ -------+ *Each stage assumes the associated GFR level has been in effect for at least three months. ?Stages 1 to 5, with or without kidney disease, indicate chronic kidney disease. Notes: Determination of stages one and two (with eGFR >59mL/min/1.73 m2) requires estimation of kidney damage for at least three months as defined by structural or functional abnormalities of the kidney, manifested by either:Pathological abnormalities or Markers of kidney damage (including abnormalities in the composition of the blood or urine or abnormalities in imaging tests). Lab Interpretation Abnormal (test code = 23986-9) [facility] GLUCOSE (AUTOMATED)2021-04-02 23:31:51 Test Item Value Reference Range Interpretation Comments POCT GLU (test code = 1922324331) 148 mg/dL 70-110 H Lab Interpretation (test code = Abnormal 89392-8) [facility] WITH [id number] 23:25:07 Test Item Value Reference Range Interpretation Comments WBC (test code = See_Comment [Automated 6690-2) message] The sy stem which generated this result transmitted reference range : 4.20 - 10.70 10*3/?L. The reference range was not used to interpret this result as normal/abnormal . RBC (test code = See_Comment L [Automated 789-8) message] The sy stem which generated this result transmitted reference range : 4.26 - 5.52 10*6/?L. The reference range was not used to interpret this result as normal/abnormal . HGB (test code = 8.6 g/dL 12.2-16.4 L 718-7) HCT (test code = 27.5 % 38.4-49.3 L 4544-3) MCV (test code = 99.3 fL 81.7-95.6 H 787-2) MCH (test code = 31.0 pg 26.1-32.7 785-6) MCHC (test code = 31.3 g/dL 31.2-35.0 786-4) RDW-SD (test code = 61.1 fL 38.5-51.6 H 38705-8) RDW-CV (test code = 17.0 % 12.1-15.4 H 788-0) PLT (test code = See_Comment H [Automated 777-3) message] The sy stem which generated this result transmitted reference range : 150 - 328 10*3/ ?L. The reference r jalen was not used to interpret this result as normal/abnormal . MPV (test code = 9.1 fL 9.8-13.0 L 67981-3) NRBC/100 WBC (test See_Comment [Automat ed code = 7599570763) message] The system which generated this result transmitted reference range : 0.0 - 10.0 /100 WBCs. The refer ence range was not u sed to interpret th is result as normal/abnormal . NRBC x10^3 (test code <0.01 See_Comment [Auto mated = 3040638007) message] The s ystem which generated this result transmitted reference range : 10*3/?L. The reference range was not used to interpret this result as normal/abnormal . GRAN MAT (NEUT) % 79.7 % (test code = 770-8) IMM GRAN % (test code 0.40 % = 2269133560) LYMPH % (test code = 10.7 % 736-9) MONO % (test code = 7.0 % 5905-5) EOS % (test code = 1.8 % 713-8) BASO % (test code = 0.4 % 706-2) GRAN MAT x10^3(ANC) 8.26 10*3/uL 1.99-6.95 H (test code = 9358434280) IMM GRAN x10^3 (test 0.04 10*3/uL 0.00-0.06 code = 2216165523) LYMPH x10^3 (test code 1.11 10*3/uL 1.09-3.23 = 731-0) MONO x10^3 (test code 0.73 10*3/uL 0.36-1.02 = 742-7) EOS x10^3 (test code = 0.19 10*3/uL 0.06-0.53 711-2) BASO x10^3 (test code 0.04 10*3/uL 0.01-0.09 = 704-7) Lab Interpretation Abnormal (test code = 04342-6) [facility] GLUCOSE (AUTOMATED)2021-04-02 19:12:44 Test Item Value Reference Range Interpretation Comments POCT GLU (test code = 7698952913) 137 mg/dL 70-110 H Lab Interpretation (test code = Abnormal 94273-5) [facility] GLUCOSE (AUTOMATED)2021-04-02 13:41:59 Test Item Value Reference Range Interpretation Comments POCT GLU (test code = 1822963354) 146 mg/dL 70-110 H Lab Interpretation (test code = Abnormal 36170-3) [facility] [id number] 01:02:17 Test Item Value Reference Range Interpretation Comments Blood Culture-Aerobic No organisms No growth Previo us (test code = 90259-8) isolated prelim inary verified result was Culture In Progress on 03/27/2021 at 2201 CSTPreviou s preliminary verified result was No growth a t 24 hours on 03/28/2021 at 1901 CSTPreviou s preliminary verified result was No growth a t 48 hours on 03/29/2021 at 1901 CSTPreviou s preliminary verified result was No growth a t 72 hours on 03/30/2021 at 1901 [employer] [employer] Blood No organisms No growth Previous Culture-Anaerobic isolated preliminar y (test code = 23637-7) verifi ed result was Culture In Progress on 03/27/2021 at 2201 CSTPreviou s preliminary verified result was No growth a t 24 hours on 03/28/2021 at 1901 CSTPreviou s preliminary verified result was No growth a t 48 hours on 03/29/2021 at 1901 CSTPreviou s preliminary verified result was No growth a t 72 hours on 03/30/2021 at 1901 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 Normal (test code = 43447-8) [facility] CULTURE [id number] 01:02:17 Test Item Value Reference Range Interpretation Comments Blood Culture-Aerobic No organisms No growth Previo us (test code = 01247-2) isolated prelim inary verified result was Culture In Progress on 03/27/2021 at 2201 CSTPreviou s preliminary verified result was No growth a t 24 hours on 03/28/2021 at 1901 CSTPreviou s preliminary verified result was No growth a t 48 hours on 03/29/2021 at 1901 CSTPreviou s preliminary verified result was No growth a t 72 hours on 03/30/2021 at 1901 [employer] Blood No organisms No growth Previous Culture-Anaerobic isolated preliminar y (test code = 26856-9) verifi ed result was Culture In Progress on 03/27/2021 at 2201 CSTPreviou s preliminary verified result was No growth a t 24 hours on 03/28/2021 at 1901 CSTPreviou s preliminary verified result was No growth a t 48 hours on 03/29/2021 at 1901 CSTPreviou s preliminary verified result was No growth a t 72 hours on 03/30/2021 at 1901 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 Normal (test code = 15491-1) [facility] 21:29:38 Test Item Value Reference Range Interpretation Comments POCT GLU (test code = 2074300126) 136 mg/dL 70-110 H Lab Interpretation (test code = Abnormal 42477-7) [facility] GLUCOSE (AUTOMATED)2021-04-01 17:07:36 Test Item Value Reference Range Interpretation Comments POCT GLU (test code = 6892100697) 132 mg/dL 70-110 H Lab Interpretation (test code = Abnormal 66028-0) [facility] GLUCOSE (AUTOMATED)2021-04-01 13:36:26 Test Item Value Reference Range Interpretation Comments POCT GLU (test code = 8362964127) 116 mg/dL 70-110 H Lab Interpretation (test code = Abnormal 09514-1) [facility] WITH [id number] 11:45:58 Test Item Value Reference Range Interpretation Comments WBC (test code = See_Comment H [Automated 6690-2) message] The sy stem which generated this result transmitted reference range : 4.20 - 10.70 10*3/?L. The reference range was not used to interpret this result as normal/abnormal . RBC (test code = See_Comment L [Automated 789-8) message] The sy stem which generated this result transmitted reference range : 4.26 - 5.52 10*6/?L. The reference range was not used to interpret this result as normal/abnormal . HGB (test code = 8.5 g/dL 12.2-16.4 L 718-7) HCT (test code = 25.7 % 38.4-49.3 L 4544-3) MCV (test code = 96.3 fL 81.7-95.6 H 787-2) MCH (test code = 31.8 pg 26.1-32.7 785-6) MCHC (test code = 33.1 g/dL 31.2-35.0 786-4) RDW-SD (test code = 60.1 fL 38.5-51.6 H 87983-6) RDW-CV (test code = 18.2 % 12.1-15.4 H 788-0) PLT (test code = See_Comment H [Automated 777-3) message] The sy stem which generated this result transmitted reference range : 150 - 328 10*3/ ?L. The reference r jalen was not used to interpret this result as normal/abnormal . MPV (test code = 9.2 fL 9.8-13.0 L 12148-6) NRBC/100 WBC (test See_Comment [Automat ed code = 9889916277) message] The system which generated this result transmitted reference range : 0.0 - 10.0 /100 WBCs. The refer ence range was not u sed to interpret th is result as normal/abnormal . NRBC x10^3 (test code <0.01 See_Comment [Auto mated = 7257642694) message] The s ystem which generated this result transmitted reference range : 10*3/?L. The reference range was not used to interpret this result as normal/abnormal . GRAN MAT (NEUT) % 81.4 % (test code = 770-8) IMM GRAN % (test code 0.50 % = 8145722457) LYMPH % (test code = 11.5 % 736-9) MONO % (test code = 5.4 % 5905-5) EOS % (test code = 1.0 % 713-8) BASO % (test code = 0.2 % 706-2) GRAN MAT x10^3(ANC) 9.56 10*3/uL 1.99-6.95 H (test code = 9892725433) IMM GRAN x10^3 (test 0.06 10*3/uL 0.00-0.06 code = 8680737790) LYMPH x10^3 (test code 1.35 10*3/uL 1.09-3.23 = 731-0) MONO x10^3 (test code 0.64 10*3/uL 0.36-1.02 = 742-7) EOS x10^3 (test code = 0.12 10*3/uL 0.06-0.53 711-2) BASO x10^3 (test code <0.03 0.01-0.09 = 704-7) Lab Interpretation Abnormal (test code = 02993-8) [facility] METABOLIC PANEL (NA, K, CL, CO2, GLUCOSE, BUN, CREATININE, CA)2021-04-01 11:35:36 Test Item Value Reference Range Interpretation Comments NA (test code = 130 mmol/L 135-145 L 8744774722) K (test code = 3.9 mmol/L 3.5-5.0 1509579909) CL (test code = 102 mmol/L 98-108 6030495600) CO2 TOTAL (test code = 22 mmol/L 23-31 L 7043133139) AGAP (test code = 2-16 1129183516) BUN (test code = 11 mg/dL 7-23 6480971429) GLUCOSE (test code = 114 mg/dL 70-110 H 8683258108) CREATININE (test code = 0.78 mg/dL 0.60-1.25 0691858614) CALCIUM (test code = 8.5 mg/dL 8.6-10.6 L 6757789913) eGFR (test code = mL/min/1.73m2 7359739835) POP (test code = POP) Association of Glomerular Filtration Rate (GFR) and Staging of Kidney Disease* + --+ --+ ------+| GFR (mL/min/1.73 m2) ?| With Kidney Damage ?| ?Without Kidney Damage+ --------+ --------+ +| ?>90 ?| ?Stage one ?| ? Normal ?+ ---+ ---+ -------+| ?60-89 ?| ?Stage two ?| ? Decreased GFR ? + --+ --+ ------+| ?30-59 ?| ?Stage three ?| ? Stage three ? + --+ --+ ------+| ?15-29 ?| ?Stage four ? | ? Stage four ?+ ---+ ---+ -------+| ?<15 (or dialysis) ? ?| ?Stage five ? | ? Stage five ?+ ---+ ---+ -------+ *Each stage assumes the associated GFR level has been in effect for at least three months. ?Stages 1 to 5, with or without kidney disease, indicate chronic kidney disease. Notes: Determination of stages one and two (with eGFR >59mL/min/1.73 m2) requires estimation of kidney damage for at least three months as defined by structural or functional abnormalities of the kidney, manifested by either:Pathological abnormalities or Markers of kidney damage (including abnormalities in the composition of the blood or urine or abnormalities in imaging tests). Lab Interpretation Abnormal (test code = 27035-0) [facility] Test Item Value Reference Range Interpretation Comments MAGNESIUM (test code = 1066204609) 1.7 mg/dL 1.7-2.4 Lab Interpretation (test code = Normal 99257-0) [facility] GLUCOSE (AUTOMATED)2021-03-31 21:14:18 Test Item Value Reference Range Interpretation Comments POCT GLU (test code = 7222636766) 97 mg/dL 70-110 Lab Interpretation (test code = Normal 55587-4) [facility] 18:15:23 Test Item Value Reference Range Interpretation Comments ANTI-SSA(RO) (test code = Negative Negative 5139989089) POP (test code = POP) Positive - Antibody detected.Negative - No antibody detected. Lab Interpretation (test Normal code = 68212-5) [facility] 18:15:23 Test Item Value Reference Range Interpretation Comments Anti-SSB(LA) (test code = Negative Negative 4322168078) POP (test code = POP) Positive - Antibody detected.Negative - No antibody detected. Lab Interpretation (test Normal code = 95001-1) [facility] 18:15:23 Test Item Value Reference Range Interpretation Comments ANTI-SSA(RO) (test code = Negative Negative 8371113440) POP (test code = POP) Positive - Antibody detected.Negative - No antibody detected. Lab Interpretation (test Normal code = 27175-6) [facility] 18:15:23 Test Item Value Reference Range Interpretation Comments Anti-SSB(LA) (test code = Negative Negative 2680259906) POP (test code = POP) Positive - Antibody detected.Negative - No antibody detected. Lab Interpretation (test Normal code = 80318-7) [facility] GLUCOSE (AUTOMATED)2021-03-31 17:14:06 Test Item Value Reference Range Interpretation Comments POCT GLU (test code = 7422154530) 111 mg/dL 70-110 H Lab Interpretation (test code = Abnormal 03035-8) [facility] GLUCOSE (AUTOMATED)2021-03-31 17:14:06 Test Item Value Reference Range Interpretation Comments POCT GLU (test code = 2775028739) 111 mg/dL 70-110 H Lab Interpretation (test code = Abnormal 88445-8) [facility] GLUCOSE (AUTOMATED)2021-03-31 13:31:44 Test Item Value Reference Range Interpretation Comments POCT GLU (test code = 7865995409) 90 mg/dL 70-110 Lab Interpretation (test code = Normal 93253-0) [facility] GLUCOSE (AUTOMATED)2021-03-31 13:31:44 Test Item Value Reference Range Interpretation Comments POCT GLU (test code = 8511567980) 90 mg/dL 70-110 Lab Interpretation (test code = Normal 09832-7) [facility] METABOLIC PANEL (NA, K, CL, CO2, GLUCOSE, BUN, CREATININE, CA)2021-03-31 11:14:28 Test Item Value Reference Range Interpretation Comments NA (test code = 130 mmol/L 135-145 L 5347701236) K (test code = 4.2 mmol/L 3.5-5.0 2454540075) CL (test code = 103 mmol/L 98-108 9961904740) CO2 TOTAL (test code = 22 mmol/L 23-31 L 0356504677) AGAP (test code = 2-16 3121937008) BUN (test code = 11 mg/dL 7-23 7761161654) GLUCOSE (test code = 83 mg/dL 70-110 6586569915) CREATININE (test code = 0.71 mg/dL 0.60-1.25 9382653185) CALCIUM (test code = 8.6 mg/dL 8.6-10.6 6493475213) eGFR (test code = mL/min/1.73m2 2218888445) POP (test code = POP) Association of Glomerular Filtration Rate (GFR) and Staging of Kidney Disease* + --+ --+ ------+| GFR (mL/min/1.73 m2) ?| With Kidney Damage ?| ?Without Kidney Damage+ --------+ --------+ +| ?>90 ?| ?Stage one ?| ? Normal ?+ ---+ ---+ -------+| ?60-89 ?| ?Stage two ?| ? Decreased GFR ? + --+ --+ ------+| ?30-59 ?| ?Stage three ?| ? Stage three ? + --+ --+ ------+| ?15-29 ?| ?Stage four ? | ? Stage four ?+ ---+ ---+ -------+| ?<15 (or dialysis) ? ?| ?Stage five ? | ? Stage five ?+ ---+ ---+ -------+ *Each stage assumes the associated GFR level has been in effect for at least three months. ?Stages 1 to 5, with or without kidney disease, indicate chronic kidney disease. Notes: Determination of stages one and two (with eGFR >59mL/min/1.73 m2) requires estimation of kidney damage for at least three months as defined by structural or functional abnormalities of the kidney, manifested by either:Pathological abnormalities or Markers of kidney damage (including abnormalities in the composition of the blood or urine or abnormalities in imaging tests). Lab Interpretation Abnormal (test code = 87788-9) [facility] 11[facility]14:28 Test Item Value Reference Range Interpretation Comments MAGNESIUM (test code = 1073554122) 1.8 mg/dL 1.7-2.4 Lab Interpretation (test code = Normal 50012-9) [facility] (NA, K, CL, CO2, GLUCOSE, BUN, CREATININE, CA)2021-03-31 11:14:28 Test Item Value Reference Range Interpretation Comments NA (test code = 130 mmol/L 135-145 L 2862767633) K (test code = 4.2 mmol/L 3.5-5.0 9797125230) CL (test code = 103 mmol/L 98-108 5058072375) CO2 TOTAL (test code = 22 mmol/L 23-31 L 3009319685) AGAP (test code = 2-16 2012144769) BUN (test code = 11 mg/dL 7-23 8496876940) GLUCOSE (test code = 83 mg/dL 70-110 5262274297) CREATININE (test code = 0.71 mg/dL 0.60-1.25 5801440529) CALCIUM (test code = 8.6 mg/dL 8.6-10.6 0597431760) eGFR (test code = mL/min/1.73m2 4076960987) POP (test code = POP) Association of Glomerular Filtration Rate (GFR) and Staging of Kidney Disease* + --+ --+ ------+| GFR (mL/min/1.73 m2) ?| With Kidney Damage ?| ?Without Kidney Damage+ --------+ --------+ +| ?>90 ?| ?Stage one ?| ? Normal ?+ ---+ ---+ -------+| ?60-89 ?| ?Stage two ?| ? Decreased GFR ? + --+ --+ ------+| ?30-59 ?| ?Stage three ?| ? Stage three ? + --+ --+ ------+| ?15-29 ?| ?Stage four ? | ? Stage four ?+ ---+ ---+ -------+| ?<15 (or dialysis) ? ?| ?Stage five ? | ? Stage five ?+ ---+ ---+ -------+ *Each stage assumes the associated GFR level has been in effect for at least three months. ?Stages 1 to 5, with or without kidney disease, indicate chronic kidney disease. Notes: Determination of stages one and two (with eGFR >59mL/min/1.73 m2) requires estimation of kidney damage for at least three months as defined by structural or functional abnormalities of the kidney, manifested by either:Pathological abnormalities or Markers of kidney damage (including abnormalities in the composition of the blood or urine or abnormalities in imaging tests). Lab Interpretation Abnormal (test code = 62279-8) [facility] 11:14:28 Test Item Value Reference Range Interpretation Comments MAGNESIUM (test code = 9987892000) 1.8 mg/dL 1.7-2.4 Lab Interpretation (test code = Normal 83962-8) [facility] WITH [id number] 10:20:23 Test Item Value Reference Range Interpretation Comments WBC (test code = See_Comment H [Automated 8490-2) message] The system which generated this result transmit qing reference range : 4.20 - 10.70 10*3/?L. The reference range was not used to interpret this result as normal/abnormal . RBC (test code = See_Comment L [Automated 789-8) message] The system which generated this result transmit qing reference range : 4.26 - 5.52 10*6/?L. The reference range was not used to interpret this result as normal/abnormal . HGB (test code = 8.8 g/dL 12.2-16.4 L 718-7) HCT (test code = 27.6 % 38.4-49.3 L 4544-3) MCV (test code = 98.2 fL 81.7-95.6 H 787-2) MCH (test code = 31.3 pg 26.1-32.7 785-6) MCHC (test code = 31.9 g/dL 31.2-35.0 786-4) RDW-SD (test code = 57.5 fL 38.5-51.6 H 90944-2) RDW-CV (test code = 17.6 % 12.1-15.4 H 788-0) PLT (test code = See_Comment H [Automated 777-3) message] The system which generated this result transmit qing reference range : 150 - 328 10*3/ ?L. The reference range was not u sed to interpret th is result as normal/abnormal . MPV (test code = 9.2 fL 9.8-13.0 L 98735-7) NRBC/100 WBC (test See_Comment [Automat ed code = 2873409877) message] The system which generated this result transmit qing reference range : 0.0 - 10.0 /100 WBCs. The reference range was not used to interpret this result as normal/abnormal . NRBC x10^3 (test code <0.01 See_Comment [Auto mated = 6776392360) message] The system which generated this result transmit qing reference range : 10*3/?L. The reference range was not used to interpret this result as normal/abnormal . GRAN MAT (NEUT) % 83.6 % (test code = 770-8) IMM GRAN % (test code 0.60 % = 6578578558) LYMPH % (test code = 9.6 % 736-9) MONO % (test code = 4.8 % 5905-5) EOS % (test code = 1.1 % 713-8) BASO % (test code = 0.3 % 706-2) GRAN MAT x10^3(ANC) 11.90 10*3/uL 1.99-6.95 H (test code = 6565525362) IMM GRAN x10^3 (test 0.09 10*3/uL 0.00-0.06 H code = 0720436008) LYMPH x10^3 (test code 1.37 10*3/uL 1.09-3.23 = 731-0) MONO x10^3 (test code 0.68 10*3/uL 0.36-1.02 = 742-7) EOS x10^3 (test code = 0.15 10*3/uL 0.06-0.53 711-2) BASO x10^3 (test code 0.04 10*3/uL 0.01-0.09 = 704-7) Lab Interpretation Abnormal (test code = 65733-3) [facility] WITH [id number] 10:20:23 Test Item Value Reference Range Interpretation Comments WBC (test code = See_Comment H [Automated 6690-2) message] The system which generated this result transmit qing reference range : 4.20 - 10.70 10*3/?L. The reference range was not used to interpret this result as normal/abnormal . RBC (test code = See_Comment L [Automated 789-8) message] The system which generated this result transmit qing reference range : 4.26 - 5.52 10*6/?L. The reference range was not used to interpret this result as normal/abnormal . HGB (test code = 8.8 g/dL 12.2-16.4 L 718-7) HCT (test code = 27.6 % 38.4-49.3 L 4544-3) MCV (test code = 98.2 fL 81.7-95.6 H 787-2) MCH (test code = 31.3 pg 26.1-32.7 785-6) MCHC (test code = 31.9 g/dL 31.2-35.0 786-4) RDW-SD (test code = 57.5 fL 38.5-51.6 H 57361-6) RDW-CV (test code = 17.6 % 12.1-15.4 H 788-0) PLT (test code = See_Comment H [Automated 777-3) message] The system which generated this result transmit qing reference range : 150 - 328 10*3/ ?L. The reference range was not u sed to interpret th is result as normal/abnormal . MPV (test code = 9.2 fL 9.8-13.0 L 57241-8) NRBC/100 WBC (test See_Comment [Automat ed code = 3180205952) message] The system which generated this result transmit qing reference range : 0.0 - 10.0 /100 WBCs. The reference range was not used to interpret this result as normal/abnormal . NRBC x10^3 (test code <0.01 See_Comment [Auto mated = 0089216585) message] The system which generated this result transmit qing reference range : 10*3/?L. The reference range was not used to interpret this result as normal/abnormal . GRAN MAT (NEUT) % 83.6 % (test code = 770-8) IMM GRAN % (test code 0.60 % = 5536214326) LYMPH % (test code = 9.6 % 736-9) MONO % (test code = 4.8 % 5905-5) EOS % (test code = 1.1 % 713-8) BASO % (test code = 0.3 % 706-2) GRAN MAT x10^3(ANC) 11.90 10*3/uL 1.99-6.95 H (test code = 6949079841) IMM GRAN x10^3 (test 0.09 10*3/uL 0.00-0.06 H code = 1977243549) LYMPH x10^3 (test code 1.37 10*3/uL 1.09-3.23 = 731-0) MONO x10^3 (test code 0.68 10*3/uL 0.36-1.02 = 742-7) EOS x10^3 (test code = 0.15 10*3/uL 0.06-0.53 711-2) BASO x10^3 (test code 0.04 10*3/uL 0.01-0.09 = 704-7) Lab Interpretation Abnormal (test code = 76907-3) [facility] GLUCOSE (AUTOMATED)2021-03-30 22:19:35 Test Item Value Reference Range Interpretation Comments POCT GLU (test code = 6586415338) 96 mg/dL 70-110 Lab Interpretation (test code = Normal 87443-6) [facility] GLUCOSE (AUTOMATED)2021-03-30 22:19:35 Test Item Value Reference Range Interpretation Comments POCT GLU (test code = 3139660289) 96 mg/dL 70-110 Lab Interpretation (test code = Normal 65707-0) [facility] GLUCOSE (AUTOMATED)2021-03-30 14:02:48 Test Item Value Reference Range Interpretation Comments POCT GLU (test code = 5941827987) 105 mg/dL 70-110 Lab Interpretation (test code = Normal 30482-1) [facility] GLUCOSE (AUTOMATED)2021-03-30 14:02:48 Test Item Value Reference Range Interpretation Comments POCT GLU (test code = 1623881968) 105 mg/dL 70-110 Lab Interpretation (test code = Normal 35487-9) [facility] [id number] 13:43:42 Test Item Value Reference Range Interpretation Comments MMA Serum/Plasma, 0.14 umol/L 0.00-0.40 INTERPRETI VE INFORMATION: Vitamin B12 MMA Serum/Plasm a, ? ? ? Status (test code ? = 85358-2) ?Vitamin B12 St atus This test was develo ped and its performance characteristics determined by [facility]. I t has not been cleared or approved by the [place] Food and Drug Administration. This test was performed i n a CLIA certified labor atory and is intended for clinical purposes.Perfor med By: [facility] [address] [place] [address] [id number] aboratory Director: Elena Mansfield MD [facility], [id number] 13:43:42 Test Item Value Reference Range Interpretation Comments MMA Serum/Plasma, 0.14 umol/L 0.00-0.40 INTERPRETI VE INFORMATION: Vitamin B12 MMA Serum/Plasm a, ? ? ? Status (test code ? = 03822-0) ?Vitamin B12 St atus This test was develo ped and its performance characteristics determined by [facility]. I t has not been cleared or approved by the [place] Food and Drug Administration. This test was performed i n a CLIA certified labor atory and is intended for clinical purposes.Perfor med By: [facility] [address] [place], [place] [address]H aboratory Director: Elena Mansfield MD [facility] METABOLIC PANEL (NA, K, CL, CO2, GLUCOSE, BUN, CREATININE, CA)2021-03-30 11:17:07 Test Item Value Reference Range Interpretation Comments NA (test code = 132 mmol/L 135-145 L 8302566066) K (test code = 4.1 mmol/L 3.5-5.0 2695388503) CL (test code = 105 mmol/L 98-108 6227525364) CO2 TOTAL (test code = 24 mmol/L 23-31 8263687242) AGAP (test code = 2-16 9358902988) BUN (test code = 12 mg/dL 7-23 8505543658) GLUCOSE (test code = 95 mg/dL 70-110 3409524663) CREATININE (test code = 0.67 mg/dL 0.60-1.25 5132354483) CALCIUM (test code = 8.4 mg/dL 8.6-10.6 L 2399402664) eGFR (test code = mL/min/1.73m2 4653357943) POP (test code = POP) Association of Glomerular Filtration Rate (GFR) and Staging of Kidney Disease* + --+ --+ ------+| GFR (mL/min/1.73 m2) ?| With Kidney Damage ?| ?Without Kidney Damage+ --------+ --------+ +| ?>90 ?| ?Stage one ?| ? Normal ?+ ---+ ---+ -------+| ?60-89 ?| ?Stage two ?| ? Decreased GFR ? + --+ --+ ------+| ?30-59 ?| ?Stage three ?| ? Stage three ? + --+ --+ ------+| ?15-29 ?| ?Stage four ? | ? Stage four ?+ ---+ ---+ -------+| ?<15 (or dialysis) ? ?| ?Stage five ? | ? Stage five ?+ ---+ ---+ -------+ *Each stage assumes the associated GFR level has been in effect for at least three months. ?Stages 1 to 5, with or without kidney disease, indicate chronic kidney disease. Notes: Determination of stages one and two (with eGFR >59mL/min/1.73 m2) requires estimation of kidney damage for at least three months as defined by structural or functional abnormalities of the kidney, manifested by either:Pathological abnormalities or Markers of kidney damage (including abnormalities in the composition of the blood or urine or abnormalities in imaging tests). Lab Interpretation Abnormal (test code = 38287-8) [facility] 11:17:07 Test Item Value Reference Range Interpretation Comments MAGNESIUM (test code = 5831269264) 1.6 mg/dL 1.7-2.4 L Lab Interpretation (test code = Abnormal 64524-9) [facility] (NA, K, CL, CO2, GLUCOSE, BUN, CREATININE, CA)2021-03-30 11:17:07 Test Item Value Reference Range Interpretation Comments NA (test code = 132 mmol/L 135-145 L 5987052866) K (test code = 4.1 mmol/L 3.5-5.0 2419607927) CL (test code = 105 mmol/L 98-108 2548746983) CO2 TOTAL (test code = 24 mmol/L 23-31 3471418362) AGAP (test code = 2-16 4709174744) BUN (test code = 12 mg/dL 7-23 6157881666) GLUCOSE (test code = 95 mg/dL 70-110 1951796556) CREATININE (test code = 0.67 mg/dL 0.60-1.25 8965298583) CALCIUM (test code = 8.4 mg/dL 8.6-10.6 L 1677831633) eGFR (test code = mL/min/1.73m2 8019544511) POP (test code = POP) Association of Glomerular Filtration Rate (GFR) and Staging of Kidney Disease* + --+ --+ ------+| GFR (mL/min/1.73 m2) ?| With Kidney Damage ?| ?Without Kidney Damage+ --------+ --------+ +| ?>90 ?| ?Stage one ?| ? Normal ?+ ---+ ---+ -------+| ?60-89 ?| ?Stage two ?| ? Decreased GFR ? + --+ --+ ------+| ?30-59 ?| ?Stage three ?| ? Stage three ? + --+ --+ ------+| ?15-29 ?| ?Stage four ? | ? Stage four ?+ ---+ ---+ -------+| ?<15 (or dialysis) ? ?| ?Stage five ? | ? Stage five ?+ ---+ ---+ -------+ *Each stage assumes the associated GFR level has been in effect for at least three months. ?Stages 1 to 5, with or without kidney disease, indicate chronic kidney disease. Notes: Determination of stages one and two (with eGFR >59mL/min/1.73 m2) requires estimation of kidney damage for at least three months as defined by structural or functional abnormalities of the kidney, manifested by either:Pathological abnormalities or Markers of kidney damage (including abnormalities in the composition of the blood or urine or abnormalities in imaging tests). Lab Interpretation Abnormal (test code = 47331-1) [facility] 11:17:07 Test Item Value Reference Range Interpretation Comments MAGNESIUM (test code = 7427986542) 1.6 mg/dL 1.7-2.4 L Lab Interpretation (test code = Abnormal 42264-8) [facility] WITH [id number] 11:03:06 Test Item Value Reference Range Interpretation Comments WBC (test code = See_Comment H [Automated 9312-2) message] The sy stem which generated this result transmitted reference range : 4.20 - 10.70 10*3/?L. The reference range was not used to interpret this result as normal/abnormal . RBC (test code = See_Comment L [Automated 023-8) message] The sy stem which generated this result transmitted reference range : 4.26 - 5.52 10*6/?L. The reference range was not used to interpret this result as normal/abnormal . HGB (test code = 8.8 g/dL 12.2-16.4 L 718-7) HCT (test code = 26.4 % 38.4-49.3 L 4544-3) MCV (test code = 94.3 fL 81.7-95.6 787-2) MCH (test code = 31.4 pg 26.1-32.7 785-6) MCHC (test code = 33.3 g/dL 31.2-35.0 786-4) RDW-SD (test code = 56.0 fL 38.5-51.6 H 52663-5) RDW-CV (test code = 17.9 % 12.1-15.4 H 788-0) PLT (test code = See_Comment H [Automated 777-3) message] The sy stem which generated this result transmitted reference range : 150 - 328 10*3/ ?L. The reference r jalen was not used to interpret this result as normal/abnormal . MPV (test code = 9.2 fL 9.8-13.0 L 51758-7) NRBC/100 WBC (test See_Comment [Automat ed code = 0550936040) message] The system which generated this result transmitted reference range : 0.0 - 10.0 /100 WBCs. The refer ence range was not u sed to interpret th is result as normal/abnormal . NRBC x10^3 (test code See_Comment [Auto mated = 4595681566) message] The s ystem which generated this result transmitted reference range : 10*3/?L. The reference range was not used to interpret this result as normal/abnormal . GRAN MAT (NEUT) % 75.7 % (test code = 770-8) IMM GRAN % (test code 1.00 % = 6220692302) LYMPH % (test code = 15.5 % 736-9) MONO % (test code = 5.3 % 5905-5) EOS % (test code = 2.0 % 713-8) BASO % (test code = 0.5 % 706-2) GRAN MAT x10^3(ANC) 9.81 10*3/uL 1.99-6.95 H (test code = 7931275279) IMM GRAN x10^3 (test 0.13 10*3/uL 0.00-0.06 H code = [id number]) LYMPH x10^3 (test code 2.01 10*3/uL 1.09-3.23 = 731-0) MONO x10^3 (test code 0.69 10*3/uL 0.36-1.02 = 742-7) EOS x10^3 (test code = 0.26 10*3/uL 0.06-0.53 711-2) BASO x10^3 (test code 0.06 10*3/uL 0.01-0.09 = 704-7) Lab Interpretation Abnormal (test code = 03648-1) [facility] WITH [id number] 11:03:06 Test Item Value Reference Range Interpretation Comments WBC (test code = See_Comment H [Automated 6690-2) message] The sy stem which generated this result transmitted reference range : 4.20 - 10.70 10*3/?L. The reference range was not used to interpret this result as normal/abnormal . RBC (test code = See_Comment L [Automated 789-8) message] The sy stem which generated this result transmitted reference range : 4.26 - 5.52 10*6/?L. The reference range was not used to interpret this result as normal/abnormal . HGB (test code = 8.8 g/dL 12.2-16.4 L 718-7) HCT (test code = 26.4 % 38.4-49.3 L 4544-3) MCV (test code = 94.3 fL 81.7-95.6 787-2) MCH (test code = 31.4 pg 26.1-32.7 785-6) MCHC (test code = 33.3 g/dL 31.2-35.0 786-4) RDW-SD (test code = 56.0 fL 38.5-51.6 H 15407-6) RDW-CV (test code = 17.9 % 12.1-15.4 H 788-0) PLT (test code = See_Comment H [Automated 777-3) message] The sy stem which generated this result transmitted reference range : 150 - 328 10*3/ ?L. The reference r jalen was not used to interpret this result as normal/abnormal . MPV (test code = 9.2 fL 9.8-13.0 L 23803-7) NRBC/100 WBC (test See_Comment [Automat ed code = 5131092026) message] The system which generated this result transmitted reference range : 0.0 - 10.0 /100 WBCs. The refer ence range was not u sed to interpret th is result as normal/abnormal . NRBC x10^3 (test code See_Comment [Auto mated = 0931613833) message] The s ystem which generated this result transmitted reference range : 10*3/?L. The reference range was not used to interpret this result as normal/abnormal . GRAN MAT (NEUT) % 75.7 % (test code = 770-8) IMM GRAN % (test code 1.00 % = 3782589485) LYMPH % (test code = 15.5 % 736-9) MONO % (test code = 5.3 % 5905-5) EOS % (test code = 2.0 % 713-8) BASO % (test code = 0.5 % 706-2) GRAN MAT x10^3(ANC) 9.81 10*3/uL 1.99-6.95 H (test code = 9674239994) IMM GRAN x10^3 (test 0.13 10*3/uL 0.00-0.06 H code = 7187484866) LYMPH x10^3 (test code 2.01 10*3/uL 1.09-3.23 = 731-0) MONO x10^3 (test code 0.69 10*3/uL 0.36-1.02 = 742-7) EOS x10^3 (test code = 0.26 10*3/uL 0.06-0.53 711-2) BASO x10^3 (test code 0.06 10*3/uL 0.01-0.09 = 704-7) Lab Interpretation Abnormal (test code = 11366-1) [facility] GLUCOSE (AUTOMATED)2021-03-29 22:21:18 Test Item Value Reference Range Interpretation Comments POCT GLU (test code = 8751710299) 130 mg/dL 70-110 H Lab Interpretation (test code = Abnormal 48379-2) [facility] GLUCOSE (AUTOMATED)2021-03-29 22:21:18 Test Item Value Reference Range Interpretation Comments POCT GLU (test code = 0810057778) 130 mg/dL 70-110 H Lab Interpretation (test code = Abnormal 35735-5) [facility]PARIN 2021-03-29 19:35:25 Test Item Value Reference Range Interpretation Comments Anti-Xa LMWH (test See_Comment L [Automat ed code = 3271-4) message] The system which generated this result transmitted reference range : 0.60 - 1.00 IU/mL. The reference range was not used to interpret this result as normal/abnormal . POP (test code = POP) Therapeutic Range for twice daily administration. Lab Interpretation Abnormal (test code = 82599-0) [facility] LOW MOLECULAR WEIGHT HEPARIN 2021-03-29 19:35:25 Test Item Value Reference Range Interpretation Comments Anti-Xa LMWH (test See_Comment L [Automat ed code = 3271-4) message] The system which generated this result transmitted reference range : 0.60 - 1.00 IU/mL. The reference range was not used to interpret this result as normal/abnormal . POP (test code = POP) Therapeutic Range for twice daily administration. Lab Interpretation Abnormal (test code = 69756-3) [facility] [id number] 18:48:40 Test Item Value Reference Range Interpretation Comments WBC (test code = 6690-2) See_Comment H [A utomated message] The system [employer] generated this result transmit qing reference range : 4.20 - 10.70 10*3/?L. The reference range was not used to interpret this result as normal/abnormal . RBC (test code = 789-8) See_Comment L [Au tomated message] The system [employer] generated this result transmit qing reference range : 4.26 - 5.52 10* 6/?L. The reference r jalen was not used to interpret this result as normal/abnormal . HGB (test code = 718-7) 8.5 g/dL 12.2-16.4 L HCT (test code = 4544-3) 26.0 % 38.4-49.3 L MCH (test code = 785-6) 31.6 pg 26.1-32.7 MCV (test code = 787-2) 96.7 fL 81.7-95.6 H MCHC (test code = 786-4) 32.7 g/dL 31.2-35.0 PLT (test code = 777-3) See_Comment H [Au tomated message] The system [facility] generated this result transmit qing reference range : 150 - 328 10*3/?L. The reference range was not used to interpret this result as normal/abnormal . MPV (test code = 9.4 fL 9.8-13.0 L 94732-4) RDW-CV (test code = 17.2 % 12.1-15.4 H 788-0) RDW-SD (test code = 53.2 fL 38.5-51.6 H 55601-9) NRBC x10^3 (test code = <0.01 See_Comment [Au tomated message] 0930535393) The system [employer] generated this result transmit qing reference range : 10*3/?L. The reference range was not used to interpret this result as normal/abnormal . NRBC/100 WBC (test code See_Comment [Au tomated message] = 4904888815) The system [facility] generated this result transmit qing reference range : 0.0 - 10.0 /100 WBC s. The reference r jalen was not used to interpret this result as normal/abnormal . IPF % (test code = 9492810678) Lab Interpretation (test Abnormal code = 37558-6) [facility] WITHOUT [id number] 18:48:40 Test Item Value Reference Range Interpretation Comments WBC (test code = 6690-2) See_Comment H [A utomated message] The system [facility] generated this result transmit qing reference range : 4.20 - 10.70 10*3/?L. The reference range was not used to interpret this result as normal/abnormal . RBC (test code = 789-8) See_Comment L [Au tomated message] The system [facility] generated this result transmit qing reference range : 4.26 - 5.52 10* 6/?L. The reference r jalen was not used to interpret this result as normal/abnormal . HGB (test code = 718-7) 8.5 g/dL 12.2-16.4 L HCT (test code = 4544-3) 26.0 % 38.4-49.3 L MCH (test code = 785-6) 31.6 pg 26.1-32.7 MCV (test code = 787-2) 96.7 fL 81.7-95.6 H MCHC (test code = 786-4) 32.7 g/dL 31.2-35.0 PLT (test code = 777-3) See_Comment H [Au tomated message] The system [facility] [employer] generated this result transmit qing reference range : 150 - 328 10*3/?L. The reference range was not used to interpret this result as normal/abnormal . MPV (test code = 9.4 fL 9.8-13.0 L 62944-0) RDW-CV (test code = 17.2 % 12.1-15.4 H 788-0) RDW-SD (test code = 53.2 fL 38.5-51.6 H 34016-4) NRBC x10^3 (test code = <0.01 See_Comment [Au tomated message] 8410496315) The system [facility] generated this result transmit qing reference range : 10*3/?L. The reference range was not used to interpret this result as normal/abnormal . NRBC/100 WBC (test code See_Comment [Au tomated message] = 7699659328) The system [facility] generated this result transmit qing reference range : 0.0 - 10.0 /100 WBC s. The reference r jalen was not used to interpret this result as normal/abnormal . IPF % (test code = 4497379165) Lab Interpretation (test Abnormal code = 51239-1) [facility] GLUCOSE (AUTOMATED)2021-03-29 18:08:42 Test Item Value Reference Range Interpretation Comments POCT GLU (test code = 3498975268) 135 mg/dL 70-110 H Lab Interpretation (test code = Abnormal 30898-7) [facility] GLUCOSE (AUTOMATED)2021-03-29 18:08:42 Test Item Value Reference Range Interpretation Comments POCT GLU (test code = 4009774774) 135 mg/dL 70-110 H Lab Interpretation (test code = Abnormal 71848-8) [facility] 1 Units 2021-03-29 15:56:11 Test Item Value Reference Range Interpretation Comments Cross Match Result Compatible (test code = 4409) ISBT Blood Type Code (test code = 752056) Unit Blood Type (test A Pos code = 4410) Unit Number (test [id number] code = 4411) Blood Expiration Date & Time (test code = 969692) Status Information Issued (test code = 4412) Product Red Blood Cells Identification (test code = 4413) Product Code (test C2475I28 Performed at [facility] code = 4414) Laboratory Services [facility] Blood [address] [address]Ztlp Free: [phone] A No. [id number] [facility] Packed RBC (in units), 1 Units 2021-03-29 15:56:11 Test Item Value Reference Range Interpretation Comments Cross Match Result Compatible (test code = 4409) ISBT Blood Type Code (test code = 343517) Unit Blood Type (test A Pos code = 4410) Unit Number (test [id number] code = 4411) Blood Expiration Date & Time (test code = 745568) Status Information Issued (test code = 4412) Product Red Blood Cells Identification (test code = 4413) Product Code (test E1149N76 Performed at [facility] code = 4414) Laboratory Services [address] [address]Zxrp Free: [phone] A No. [id number] [facility] Packed RBC (in units), 1 Units 2021-03-29 15:56:11 Test Item Value Reference Range Interpretation Comments Cross Match Result Compatible (test code = 4409) ISBT Blood Type Code (test code = 819608) Unit Blood Type (test A Pos code = 4410) Unit Number (test [id number] code = 4411) Blood Expiration Date & Time (test code = 285366) Status Information Issued (test code = 4412) Product Red Blood Cells Identification (test code = 4413) Product Code (test F5251K93 Performed at [facility] code = 4414) Laboratory Services [facility] Blood [address] [address]Jkyo Free: [phone] A No. [id number] [facility] GLUCOSE (AUTOMATED)2021-03-29 13:25:05 Test Item Value Reference Range Interpretation Comments POCT GLU (test code = 1795490226) 115 mg/dL 70-110 H Lab Interpretation (test code = Abnormal 91730-4) [facility] GLUCOSE (AUTOMATED)2021-03-29 13:25:05 Test Item Value Reference Range Interpretation Comments POCT GLU (test code = 0055639662) 115 mg/dL 70-110 H Lab Interpretation (test code = Abnormal 89371-4) [facility] GLUCOSE (AUTOMATED)2021-03-29 13:25:05 Test Item Value Reference Range Interpretation Comments POCT GLU (test code = 2732253977) 115 mg/dL 70-110 H Lab Interpretation (test code = Abnormal 16846-9) [facility]09 Test Item Value Reference Range Interpretation Comments MAGNESIUM (test code = 1243237602) 1.7 mg/dL 1.7-2.4 Lab Interpretation (test code = Normal 84180-0) [facility] 13:08:09 Test Item Value Reference Range Interpretation Comments MAGNESIUM (test code = 5428079639) 1.7 mg/dL 1.7-2.4 Lab Interpretation (test code = Normal 06640-1) [facility] 13:08:09 Test Item Value Reference Range Interpretation Comments MAGNESIUM (test code = 3750647855) 1.7 mg/dL 1.7-2.4 Lab Interpretation (test code = Normal 11604-3) [facility] (NA, K, CL, CO2, GLUCOSE, BUN, CREATININE, CA)2021-03-29 12:34:45 Test Item Value Reference Range Interpretation Comments NA (test code = 133 mmol/L 135-145 L 7532865583) K (test code = 4.1 mmol/L 3.5-5.0 7420865540) CL (test code = 106 mmol/L 98-108 1549194891) CO2 TOTAL (test code = 23 mmol/L 23-31 1287505655) AGAP (test code = 2-16 4368495399) BUN (test code = 17 mg/dL 7-23 4205126449) GLUCOSE (test code = 106 mg/dL 70-110 5491941444) CREATININE (test code = 0.73 mg/dL 0.60-1.25 4543743379) CALCIUM (test code = 8.2 mg/dL 8.6-10.6 L 1501874951) eGFR (test code = mL/min/1.73m2 7834538136) POP (test code = POP) Association of Glomerular Filtration Rate (GFR) and Staging of Kidney Disease* + --+ --+ ------+| GFR (mL/min/1.73 m2) ?| With Kidney Damage ?| ?Without Kidney Damage+ --------+ --------+ +| ?>90 ?| ?Stage one ?| ? Normal ?+ ---+ ---+ -------+| ?60-89 ?| ?Stage two ?| ? Decreased GFR ? + --+ --+ ------+| ?30-59 ?| ?Stage three ?| ? Stage three ? + --+ --+ ------+| ?15-29 ?| ?Stage four ? | ? Stage four ?+ ---+ ---+ -------+| ?<15 (or dialysis) ? ?| ?Stage five ? | ? Stage five ?+ ---+ ---+ -------+ *Each stage assumes the associated GFR level has been in effect for at least three months. ?Stages 1 to 5, with or without kidney disease, indicate chronic kidney disease. Notes: Determination of stages one and two (with eGFR >59mL/min/1.73 m2) requires estimation of kidney damage for at least three months as defined by structural or functional abnormalities of the kidney, manifested by either:Pathological abnormalities or Markers of kidney damage (including abnormalities in the composition of the blood or urine or abnormalities in imaging tests). Lab Interpretation Abnormal (test code = 79460-5) [facility] METABOLIC PANEL (NA, K, CL, CO2, GLUCOSE, BUN, CREATININE, CA)2021-03-29 12:34:45 Test Item Value Reference Range Interpretation Comments NA (test code = 133 mmol/L 135-145 L 4538858797) K (test code = 4.1 mmol/L 3.5-5.0 3582591373) CL (test code = 106 mmol/L 98-108 8930949035) CO2 TOTAL (test code = 23 mmol/L 23-31 3148607696) AGAP (test code = 2-16 2626079520) BUN (test code = 17 mg/dL 7-23 9822130511) GLUCOSE (test code = 106 mg/dL 70-110 8691748933) CREATININE (test code = 0.73 mg/dL 0.60-1.25 0114010838) CALCIUM (test code = 8.2 mg/dL 8.6-10.6 L 7730036182) eGFR (test code = mL/min/1.73m2 7344914143) POP (test code = POP) Association of Glomerular Filtration Rate (GFR) and Staging of Kidney Disease* + --+ --+ ------+| GFR (mL/min/1.73 m2) ?| With Kidney Damage ?| ?Without Kidney Damage+ --------+ --------+ +| ?>90 ?| ?Stage one ?| ? Normal ?+ ---+ ---+ -------+| ?60-89 ?| ?Stage two ?| ? Decreased GFR ? + --+ --+ ------+| ?30-59 ?| ?Stage three ?| ? Stage three ? + --+ --+ ------+| ?15-29 ?| ?Stage four ? | ? Stage four ?+ ---+ ---+ -------+| ?<15 (or dialysis) ? ?| ?Stage five ? | ? Stage five ?+ ---+ ---+ -------+ *Each stage assumes the associated GFR level has been in effect for at least three months. ?Stages 1 to 5, with or without kidney disease, indicate chronic kidney disease. Notes: Determination of stages one and two (with eGFR >59mL/min/1.73 m2) requires estimation of kidney damage for at least three months as defined by structural or functional abnormalities of the kidney, manifested by either:Pathological abnormalities or Markers of kidney damage (including abnormalities in the composition of the blood or urine or abnormalities in imaging tests). Lab Interpretation Abnormal (test code = 34127-8) [facility] (NA, K, CL, CO2, GLUCOSE, BUN, CREATININE, CA)2021-03-29 12:34:45 Test Item Value Reference Range Interpretation Comments NA (test code = 133 mmol/L 135-145 L 4090381505) K (test code = 4.1 mmol/L 3.5-5.0 0364940501) CL (test code = 106 mmol/L 98-108 1573614344) CO2 TOTAL (test code = 23 mmol/L 23-31 3050324770) AGAP (test code = 2-16 6875184635) BUN (test code = 17 mg/dL 7-23 7389396531) GLUCOSE (test code = 106 mg/dL 70-110 3662337007) CREATININE (test code = 0.73 mg/dL 0.60-1.25 7696149462) CALCIUM (test code = 8.2 mg/dL 8.6-10.6 L 8700684641) eGFR (test code = mL/min/1.73m2 0845200136) POP (test code = POP) Association of Glomerular Filtration Rate (GFR) and Staging of Kidney Disease* + --+ --+ ------+| GFR (mL/min/1.73 m2) ?| With Kidney Damage ?| ?Without Kidney Damage+ --------+ --------+ +| ?>90 ?| ?Stage one ?| ? Normal ?+ ---+ ---+ -------+| ?60-89 ?| ?Stage two ?| ? Decreased GFR ? + --+ --+ ------+| ?30-59 ?| ?Stage three ?| ? Stage three ? + --+ --+ ------+| ?15-29 ?| ?Stage four ? | ? Stage four ?+ ---+ ---+ -------+| ?<15 (or dialysis) ? ?| ?Stage five ? | ? Stage five ?+ ---+ ---+ -------+ *Each stage assumes the associated GFR level has been in effect for at least three months. ?Stages 1 to 5, with or without kidney disease, indicate chronic kidney disease. Notes: Determination of stages one and two (with eGFR >59mL/min/1.73 m2) requires estimation of kidney damage for at least three months as defined by structural or functional abnormalities of the kidney, manifested by either:Pathological abnormalities or Markers of kidney damage (including abnormalities in the composition of the blood or urine or abnormalities in imaging tests). Lab Interpretation Abnormal (test code = 16721-6) [facility] WITH [id number] 12:03:02 Test Item Value Reference Range Interpretation Comments WBC (test code = See_Comment H [Automated 6690-2) message] The system which generated this result transmit qing reference range : 4.20 - 10.70 10*3/?L. The reference range was not used to interpret this result as normal/abnormal . RBC (test code = See_Comment L [Automated 789-8) message] The system which generated this result transmit qing reference range : 4.26 - 5.52 10*6/?L. The reference range was not used to interpret this result as normal/abnormal . HGB (test code = 7.0 g/dL 12.2-16.4 L 718-7) HCT (test code = 22.1 % 38.4-49.3 L 4544-3) MCV (test code = 100.0 fL 81.7-95.6 H 787-2) MCH (test code = 31.7 pg 26.1-32.7 785-6) MCHC (test code = 31.7 g/dL 31.2-35.0 786-4) RDW-SD (test code = 54.0 fL 38.5-51.6 H 20764-9) RDW-CV (test code = 16.9 % 12.1-15.4 H 788-0) PLT (test code = See_Comment H [Automated 777-3) message] The system which generated this result transmit qing reference range : 150 - 328 10*3/ ?L. The reference range was not u sed to interpret th is result as normal/abnormal . MPV (test code = 9.1 fL 9.8-13.0 L 42562-7) NRBC/100 WBC (test See_Comment [Automat ed code = 2978708622) message] The system which generated this result transmit qing reference range : 0.0 - 10.0 /100 WBCs. The reference range was not used to interpret this result as normal/abnormal . NRBC x10^3 (test code See_Comment [Auto mated = 5744823150) message] The system which generated this result transmit qing reference range : 10*3/?L. The reference range was not used to interpret this result as normal/abnormal . GRAN MAT (NEUT) % 78.0 % (test code = 770-8) IMM GRAN % (test code 0.60 % = 8615381771) LYMPH % (test code = 14.3 % 736-9) MONO % (test code = 5.5 % 5905-5) EOS % (test code = 1.2 % 713-8) BASO % (test code = 0.4 % 706-2) GRAN MAT x10^3(ANC) 11.69 10*3/uL 1.99-6.95 H (test code = 5929897551) IMM GRAN x10^3 (test 0.09 10*3/uL 0.00-0.06 H code = 2214205896) LYMPH x10^3 (test code 2.14 10*3/uL 1.09-3.23 = 731-0) MONO x10^3 (test code 0.82 10*3/uL 0.36-1.02 = 742-7) EOS x10^3 (test code = 0.18 10*3/uL 0.06-0.53 711-2) BASO x10^3 (test code 0.06 10*3/uL 0.01-0.09 = 704-7) Lab Interpretation Abnormal (test code = 28967-2) [facility] WITH [id number] 12:03:02 Test Item Value Reference Range Interpretation Comments WBC (test code = See_Comment H [Automated 4390-2) message] The system which generated this result transmit qing reference range : 4.20 - 10.70 10*3/?L. The reference range was not used to interpret this result as normal/abnormal . RBC (test code = See_Comment L [Automated 039-8) message] The system which generated this result transmit qing reference range : 4.26 - 5.52 10*6/?L. The reference range was not used to interpret this result as normal/abnormal . HGB (test code = 7.0 g/dL 12.2-16.4 L 718-7) HCT (test code = 22.1 % 38.4-49.3 L 4544-3) MCV (test code = 100.0 fL 81.7-95.6 H 787-2) MCH (test code = 31.7 pg 26.1-32.7 785-6) MCHC (test code = 31.7 g/dL 31.2-35.0 786-4) RDW-SD (test code = 54.0 fL 38.5-51.6 H 13459-8) RDW-CV (test code = 16.9 % 12.1-15.4 H 788-0) PLT (test code = See_Comment H [Automated 777-3) message] The system which generated this result transmit qing reference range : 150 - 328 10*3/ ?L. The reference range was not u sed to interpret th is result as normal/abnormal . MPV (test code = 9.1 fL 9.8-13.0 L 25619-6) NRBC/100 WBC (test See_Comment [Automat ed code = 9663713091) message] The system which generated this result transmit qing reference range : 0.0 - 10.0 /100 WBCs. The reference range was not used to interpret this result as normal/abnormal . NRBC x10^3 (test code See_Comment [Auto mated = 4087731316) message] The system which generated this result transmit qing reference range : 10*3/?L. The reference range was not used to interpret this result as normal/abnormal . GRAN MAT (NEUT) % 78.0 % (test code = 770-8) IMM GRAN % (test code 0.60 % = 9800164959) LYMPH % (test code = 14.3 % 736-9) MONO % (test code = 5.5 % 5905-5) EOS % (test code = 1.2 % 713-8) BASO % (test code = 0.4 % 706-2) GRAN MAT x10^3(ANC) 11.69 10*3/uL 1.99-6.95 H (test code = 3257218478) IMM GRAN x10^3 (test 0.09 10*3/uL 0.00-0.06 H code = 4089830509) LYMPH x10^3 (test code 2.14 10*3/uL 1.09-3.23 = 731-0) MONO x10^3 (test code 0.82 10*3/uL 0.36-1.02 = 742-7) EOS x10^3 (test code = 0.18 10*3/uL 0.06-0.53 711-2) BASO x10^3 (test code 0.06 10*3/uL 0.01-0.09 = 704-7) Lab Interpretation Abnormal (test code = 31576-1) [facility] WITH [id number] 12:03:02 Test Item Value Reference Range Interpretation Comments WBC (test code = See_Comment H [Automated 6690-2) message] The system which generated this result transmit qing reference range : 4.20 - 10.70 10*3/?L. The reference range was not used to interpret this result as normal/abnormal . RBC (test code = See_Comment L [Automated 789-8) message] The system which generated this result transmit qing reference range : 4.26 - 5.52 10*6/?L. The reference range was not used to interpret this result as normal/abnormal . HGB (test code = 7.0 g/dL 12.2-16.4 L 718-7) HCT (test code = 22.1 % 38.4-49.3 L 4544-3) MCV (test code = 100.0 fL 81.7-95.6 H 787-2) MCH (test code = 31.7 pg 26.1-32.7 785-6) MCHC (test code = 31.7 g/dL 31.2-35.0 786-4) RDW-SD (test code = 54.0 fL 38.5-51.6 H 54156-7) RDW-CV (test code = 16.9 % 12.1-15.4 H 788-0) PLT (test code = See_Comment H [Automated 777-3) message] The system which generated this result transmit qing reference range : 150 - 328 10*3/ ?L. The reference range was not u sed to interpret th is result as normal/abnormal . MPV (test code = 9.1 fL 9.8-13.0 L 42212-6) NRBC/100 WBC (test See_Comment [Automat ed code = 8893881175) message] The system which generated this result transmit qing reference range : 0.0 - 10.0 /100 WBCs. The reference range was not used to interpret this result as normal/abnormal . NRBC x10^3 (test code See_Comment [Auto mated = 2873831337) message] The system which generated this result transmit qing reference range : 10*3/?L. The reference range was not used to interpret this result as normal/abnormal . GRAN MAT (NEUT) % 78.0 % (test code = 770-8) IMM GRAN % (test code 0.60 % = 8876443466) LYMPH % (test code = 14.3 % 736-9) MONO % (test code = 5.5 % 5905-5) EOS % (test code = 1.2 % 713-8) BASO % (test code = 0.4 % 706-2) GRAN MAT x10^3(ANC) 11.69 10*3/uL 1.99-6.95 H (test code = 8496414547) IMM GRAN x10^3 (test 0.09 10*3/uL 0.00-0.06 H code = 9367655414) LYMPH x10^3 (test code 2.14 10*3/uL 1.09-3.23 = 731-0) MONO x10^3 (test code 0.82 10*3/uL 0.36-1.02 = 742-7) EOS x10^3 (test code = 0.18 10*3/uL 0.06-0.53 711-2) BASO x10^3 (test code 0.06 10*3/uL 0.01-0.09 = 704-7) Lab Interpretation Abnormal (test code = 24510-4) [facility] WITHOUT [id number] 23:07:41 Test Item Value Reference Range Interpretation Comments WBC (test code = 6690-2) See_Comment H [A utomated message] The system [facility] generated this result transmit qing reference range : 4.20 - 10.70 10*3/?L. The reference range was not used to interpret this result as normal/abnormal . RBC (test code = 789-8) See_Comment L [Au tomated message] The system [employer] generated this result transmit qing reference range : 4.26 - 5.52 10* 6/?L. The reference r jalen was not used to interpret this result as normal/abnormal . HGB (test code = 718-7) 7.2 g/dL 12.2-16.4 L HCT (test code = 4544-3) 21.8 % 38.4-49.3 L MCH (test code = 785-6) 32.1 pg 26.1-32.7 MCV (test code = 787-2) 97.3 fL 81.7-95.6 H MCHC (test code = 786-4) 33.0 g/dL 31.2-35.0 PLT (test code = 777-3) See_Comment H [Au tomated message] The system [employer] generated this result transmit qing reference range : 150 - 328 10*3/?L. The reference range was not used to interpret this result as normal/abnormal . MPV (test code = 9.2 fL 9.8-13.0 L 65215-5) RDW-CV (test code = 16.3 % 12.1-15.4 H 788-0) RDW-SD (test code = 50.1 fL 38.5-51.6 50486-4) NRBC x10^3 (test code = <0.01 See_Comment [Au tomated message] [id number]) The system [employer] generated this result transmit qing reference range : 10*3/?L. The reference range was not used to interpret this result as normal/abnormal . NRBC/100 WBC (test code See_Comment [Au tomated message] = 1023804434) The system [facility] generated this result transmit qing reference range : 0.0 - 10.0 /100 WBC s. The reference r jalen was not used to interpret this result as normal/abnormal . IPF % (test code = 3775477344) Lab Interpretation (test Abnormal code = 21688-2) [facility] WITHOUT [id number] 23:07:41 Test Item Value Reference Range Interpretation Comments WBC (test code = 6690-2) See_Comment H [A utomated message] The system [facility] generated this result transmit qing reference range : 4.20 - 10.70 10*3/?L. The reference range was not used to interpret this result as normal/abnormal . RBC (test code = 789-8) See_Comment L [Au tomated message] The system [facility] generated this result transmit qing reference range : 4.26 - 5.52 10* 6/?L. The reference r jalen was not used to interpret this result as normal/abnormal . HGB (test code = 718-7) 7.2 g/dL 12.2-16.4 L HCT (test code = 4544-3) 21.8 % 38.4-49.3 L MCH (test code = 785-6) 32.1 pg 26.1-32.7 MCV (test code = 787-2) 97.3 fL 81.7-95.6 H MCHC (test code = 786-4) 33.0 g/dL 31.2-35.0 PLT (test code = 777-3) See_Comment H [Au tomated message] The system [facility] generated this result transmit qing reference range : 150 - 328 10*3/?L. The reference range was not used to interpret this result as normal/abnormal . MPV (test code = 9.2 fL 9.8-13.0 L 45698-8) RDW-CV (test code = 16.3 % 12.1-15.4 H 788-0) RDW-SD (test code = 50.1 fL 38.5-51.6 86277-7) NRBC x10^3 (test code = <0.01 See_Comment [Au tomated message] [id number]) The system [facility] generated this result transmit qing reference range : 10*3/?L. The reference range was not used to interpret this result as normal/abnormal . NRBC/100 WBC (test code See_Comment [Au tomated message] = 0924890522) The system [facility] generated this result transmit qing reference range : 0.0 - 10.0 /100 WBC s. The reference r jalen was not used to interpret this result as normal/abnormal . IPF % (test code = 3589410442) Lab Interpretation (test Abnormal code = 84506-0) [facility] WITHOUT [id number] 23:07:41 Test Item Value Reference Range Interpretation Comments WBC (test code = 6690-2) See_Comment H [A utomated message] The system [employer] generated this result transmit qing reference range : 4.20 - 10.70 10*3/?L. The reference range was not used to interpret this result as normal/abnormal . RBC (test code = 789-8) See_Comment L [Au tomated message] The system [employer] generated this result transmit qing reference range : 4.26 - 5.52 10* 6/?L. The reference r jalen was not used to interpret this result as normal/abnormal . HGB (test code = 718-7) 7.2 g/dL 12.2-16.4 L HCT (test code = 4544-3) 21.8 % 38.4-49.3 L MCH (test code = 785-6) 32.1 pg 26.1-32.7 MCV (test code = 787-2) 97.3 fL 81.7-95.6 H MCHC (test code = 786-4) 33.0 g/dL 31.2-35.0 PLT (test code = 777-3) See_Comment H [Au tomated message] The system [employer] generated this result transmit qing reference range : 150 - 328 10*3/?L. The reference range was not used to interpret this result as normal/abnormal . MPV (test code = 9.2 fL 9.8-13.0 L 61732-6) RDW-CV (test code = 16.3 % 12.1-15.4 H 788-0) RDW-SD (test code = 50.1 fL 38.5-51.6 51606-5) NRBC x10^3 (test code = <0.01 See_Comment [Au tomated message] [id number]) The system [employer] generated this result transmit qing reference range : 10*3/?L. The reference range was not used to interpret this result as normal/abnormal . NRBC/100 WBC (test code See_Comment [Au tomated message] = 8557616162) The system [facility] generated this result transmit qing reference range : 0.0 - 10.0 /100 WBC s. The reference r jalen was not used to interpret this result as normal/abnormal . IPF % (test code = 4377518852) Lab Interpretation (test Abnormal code = 83046-6) [facility] GLUCOSE (AUTOMATED)2021-03-28 22:17:56 Test Item Value Reference Range Interpretation Comments POCT GLU (test code = 0416620718) 111 mg/dL 70-110 H Lab Interpretation (test code = Abnormal 61514-7) [facility] GLUCOSE (AUTOMATED)2021-03-28 22:17:56 Test Item Value Reference Range Interpretation Comments POCT GLU (test code = 0810802904) 111 mg/dL 70-110 H Lab Interpretation (test code = Abnormal 46976-7) [facility] GLUCOSE (AUTOMATED)2021-03-28 17:09:55 Test Item Value Reference Range Interpretation Comments POCT GLU (test code = 8359725166) 112 mg/dL 70-110 H Lab Interpretation (test code = Abnormal 04104-6) [facility] GLUCOSE (AUTOMATED)2021-03-28 17:09:55 Test Item Value Reference Range Interpretation Comments POCT GLU (test code = 3950873335) 112 mg/dL 70-110 H Lab Interpretation (test code = Abnormal 86265-7) [facility] GLUCOSE (AUTOMATED)2021-03-28 13:13:42 Test Item Value Reference Range Interpretation Comments POCT GLU (test code = 4868626846) 90 mg/dL 70-110 Lab Interpretation (test code = Normal 62385-8) [facility] GLUCOSE (AUTOMATED)2021-03-28 13:13:42 Test Item Value Reference Range Interpretation Comments POCT GLU (test code = 7594959103) 90 mg/dL 70-110 Lab Interpretation (test code = Normal 44105-6) [facility] METABOLIC PANEL (NA, K, CL, CO2, GLUCOSE, BUN, CREATININE, CA)2021-03-28 11:25:09 Test Item Value Reference Range Interpretation Comments NA (test code = 135 mmol/L 135-145 8337260581) K (test code = 4.0 mmol/L 3.5-5.0 4040228346) CL (test code = 107 mmol/L 98-108 1270370525) CO2 TOTAL (test code = 23 mmol/L 23-31 4105107053) AGAP (test code = 2-16 2279832894) BUN (test code = 20 mg/dL 7-23 1397862331) GLUCOSE (test code = 82 mg/dL 70-110 0999261927) CREATININE (test code = 0.76 mg/dL 0.60-1.25 8754015463) CALCIUM (test code = 8.3 mg/dL 8.6-10.6 L 1187106888) eGFR (test code = mL/min/1.73m2 2181646717) POP (test code = POP) Association of Glomerular Filtration Rate (GFR) and Staging of Kidney Disease* + --+ --+ ------+| GFR (mL/min/1.73 m2) ?| With Kidney Damage ?| ?Without Kidney Damage+ --------+ --------+ +| ?>90 ?| ?Stage one ?| ? Normal ?+ ---+ ---+ -------+| ?60-89 ?| ?Stage two ?| ? Decreased GFR ? + --+ --+ ------+| ?30-59 ?| ?Stage three ?| ? Stage three ? + --+ --+ ------+| ?15-29 ?| ?Stage four ? | ? Stage four ?+ ---+ ---+ -------+| ?<15 (or dialysis) ? ?| ?Stage five ? | ? Stage five ?+ ---+ ---+ -------+ *Each stage assumes the associated GFR level has been in effect for at least three months. ?Stages 1 to 5, with or without kidney disease, indicate chronic kidney disease. Notes: Determination of stages one and two (with eGFR >59mL/min/1.73 m2) requires estimation of kidney damage for at least three months as defined by structural or functional abnormalities of the kidney, manifested by either:Pathological abnormalities or Markers of kidney damage (including abnormalities in the composition of the blood or urine or abnormalities in imaging tests). Lab Interpretation Abnormal (test code = 24462-7) [facility] METABOLIC PANEL (NA, K, CL, CO2, GLUCOSE, BUN, CREATININE, CA)2021-03-28 11:25:09 Test Item Value Reference Range Interpretation Comments NA (test code = 135 mmol/L 135-145 3493676879) K (test code = 4.0 mmol/L 3.5-5.0 2354075996) CL (test code = 107 mmol/L 98-108 0464868325) CO2 TOTAL (test code = 23 mmol/L 23-31 6808284560) AGAP (test code = 2-16 2333865753) BUN (test code = 20 mg/dL 7-23 3968966201) GLUCOSE (test code = 82 mg/dL 70-110 3651251203) CREATININE (test code = 0.76 mg/dL 0.60-1.25 7450474325) CALCIUM (test code = 8.3 mg/dL 8.6-10.6 L 9182683193) eGFR (test code = mL/min/1.73m2 0369355838) POP (test code = POP) Association of Glomerular Filtration Rate (GFR) and Staging of Kidney Disease* + --+ --+ ------+| GFR (mL/min/1.73 m2) ?| With Kidney Damage ?| ?Without Kidney Damage+ --------+ --------+ +| ?>90 ?| ?Stage one ?| ? Normal ?+ ---+ ---+ -------+| ?60-89 ?| ?Stage two ?| ? Decreased GFR ? + --+ --+ ------+| ?30-59 ?| ?Stage three ?| ? Stage three ? + --+ --+ ------+| ?15-29 ?| ?Stage four ? | ? Stage four ?+ ---+ ---+ -------+| ?<15 (or dialysis) ? ?| ?Stage five ? | ? Stage five ?+ ---+ ---+ -------+ *Each stage assumes the associated GFR level has been in effect for at least three months. ?Stages 1 to 5, with or without kidney disease, indicate chronic kidney disease. Notes: Determination of stages one and two (with eGFR >59mL/min/1.73 m2) requires estimation of kidney damage for at least three months as defined by structural or functional abnormalities of the kidney, manifested by either:Pathological abnormalities or Markers of kidney damage (including abnormalities in the composition of the blood or urine or abnormalities in imaging tests). Lab Interpretation Abnormal (test code = 68748-6) [facility] [id number] 11:10:29 Test Item Value Reference Range Interpretation Comments APTT Patient (test code = See_Comment [ Automated message] 3173-2) The system [employer] generated this result transmitted ref erence range: 26 - 36 Seconds. The re ference range was not u sed to interpret this result as normal/abnor mal. Lab Interpretation (test Normal code = 28329-9) [facility] [id number] 11:10:29 Test Item Value Reference Range Interpretation Comments APTT Patient (test code = See_Comment [ Automated message] 3173-2) The system [employer] generated this result transmitted ref erence range: 26 - 36 Seconds. The re ference range was not u sed to interpret this result as normal/abnor mal. Lab Interpretation (test Normal code = 70259-1) [facility] [id number] 11:10:29 Test Item Value Reference Range Interpretation Comments APTT Patient (test code = See_Comment [ Automated message] 3173-2) The system [employer] generated this result transmitted ref erence range: 26 - 36 Seconds. The re ference range was not u sed to interpret this result as normal/abnor mal. Lab Interpretation (test Normal code = 26418-2) [facility] / [id number] 11:10:28 Test Item Value Reference Range Interpretation Comments PROTIME PATIENT (test See_Comment H [Auto mated message] code = 5964-2) The system [employer] generated this result transmitted ref erence range: 10.1 - 1 2.6 Seconds. The reference range was not used to int erpret this result as normal/abnormal . INR (test code = 6301-6) Nor mal INR <1.1; Warfarin Therap eutic range 2.0 to 3. 0 or 2.5 to 3.5, dep ending upon the indica tions. Lab Interpretation (test Abnormal code = 07001-0) [facility] [id number] 11:10:28 Test Item Value Reference Range Interpretation Comments PROTIME PATIENT (test See_Comment H [Auto mated message] code = 5964-2) The system [employer] generated this result transmitted ref erence range: 10.1 - 1 2.6 Seconds. The reference range was not used to int erpret this result as normal/abnormal . INR (test code = 6301-6) Nor mal INR <1.1; Warfarin Therap eutic range 2.0 to 3. 0 or 2.5 to 3.5, dep ending upon the indica tions. Lab Interpretation (test Abnormal code = 29585-4) [facility] [id number] 11:10:28 Test Item Value Reference Range Interpretation Comments PROTIME PATIENT (test See_Comment H [Auto mated message] code = 5964-2) The system [employer] generated this result transmitted ref erence range: 10.1 - 1 2.6 Seconds. The reference range was not used to int erpret this result as normal/abnormal . INR (test code = 6301-6) Nor mal INR <1.1; Warfarin Therap eutic range 2.0 to 3. 0 or 2.5 to 3.5, dep ending upon the indica tions. Lab Interpretation (test Abnormal code = 00431-5) [facility] [id number] 11:00:28 Test Item Value Reference Range Interpretation Comments WBC (test code = 6690-2) See_Comment H [A utomated message] The system [employer] generated this result transmit qing reference range : 4.20 - 10.70 10*3/?L. The reference range was not used to interpret this result as normal/abnormal . RBC (test code = 789-8) See_Comment L [Au tomated message] The system [employer] generated this result transmit qing reference range : 4.26 - 5.52 10* 6/?L. The reference r jalen was not used to interpret this result as normal/abnormal . HGB (test code = 718-7) 7.7 g/dL 12.2-16.4 L HCT (test code = 4544-3) 23.7 % 38.4-49.3 L MCH (test code = 785-6) 31.4 pg 26.1-32.7 MCV (test code = 787-2) 96.7 fL 81.7-95.6 H MCHC (test code = 786-4) 32.5 g/dL 31.2-35.0 PLT (test code = 777-3) See_Comment H [Au tomated message] The system [facility] generated this result transmit qing reference range : 150 - 328 10*3/?L. The reference range was not used to interpret this result as normal/abnormal . MPV (test code = 9.1 fL 9.8-13.0 L 16930-5) RDW-CV (test code = 15.4 % 12.1-15.4 788-0) RDW-SD (test code = 49.9 fL 38.5-51.6 04910-7) NRBC x10^3 (test code = See_Comment [Au tomated message] 2049549223) The system [facility] generated this result transmit qing reference range : 10*3/?L. The reference range was not used to interpret this result as normal/abnormal . NRBC/100 WBC (test code See_Comment [Au tomated message] = 7193397796) The system [facility] generated this result transmit qing reference range : 0.0 - 10.0 /100 WBC s. The reference r jalen was not used to interpret this result as normal/abnormal . IPF % (test code = 0143196314) Lab Interpretation (test Abnormal code = 60761-3) [facility] WITHOUT [id number] 11:00:28 Test Item Value Reference Range Interpretation Comments WBC (test code = 6690-2) See_Comment H [A utomated message] The system [facility] generated this result transmit qing reference range : 4.20 - 10.70 10*3/?L. The reference range was not used to interpret this result as normal/abnormal . RBC (test code = 789-8) See_Comment L [Au tomated message] The system [facility] generated this result transmit qing reference range : 4.26 - 5.52 10* 6/?L. The reference r jalen was not used to interpret this result as normal/abnormal . HGB (test code = 718-7) 7.7 g/dL 12.2-16.4 L HCT (test code = 4544-3) 23.7 % 38.4-49.3 L MCH (test code = 785-6) 31.4 pg 26.1-32.7 MCV (test code = 787-2) 96.7 fL 81.7-95.6 H MCHC (test code = 786-4) 32.5 g/dL 31.2-35.0 PLT (test code = 777-3) See_Comment H [Au tomated message] The system [facility] generated this result transmit qing reference range : 150 - 328 10*3/?L. The reference range was not used to interpret this result as normal/abnormal . MPV (test code = 9.1 fL 9.8-13.0 L 58060-5) RDW-CV (test code = 15.4 % 12.1-15.4 788-0) RDW-SD (test code = 49.9 fL 38.5-51.6 27821-3) NRBC x10^3 (test code = See_Comment [Au tomated message] 6280684491) The system [facility] generated this result transmit qing reference range : 10*3/?L. The reference range was not used to interpret this result as normal/abnormal . NRBC/100 WBC (test code See_Comment [Au tomated message] = 4919654646) The system [facility] generated this result transmit qing reference range : 0.0 - 10.0 /100 WBC s. The reference r jalen was not used to interpret this result as normal/abnormal . IPF % (test code = 8693794383) Lab Interpretation (test Abnormal code = 23575-4) [facility] 1 Units 2021-03-28 04:56:39 Test Item Value Reference Range Interpretation Comments Cross Match Result Compatible (test code = 4409) ISBT Blood Type Code (test code = 810444) Unit Blood Type (test A Pos code = 4410) Unit Number (test [id number] code = 4411) Blood Expiration Date & Time (test code = 091446) Status Information Issued (test code = 4412) Product Red Blood Cells Identification (test code = 4413) Product Code (test [id number] Performed at [facility] code = 4414) Laboratory Services - [facility] Blood [address] s [address]Nbtn Free: [phone] A No. [id number] [facility] RBC (in units), 1 Units 2021-03-28 04:56:39 Test Item Value Reference Range Interpretation Comments Cross Match Result Compatible (test code = 4409) ISBT Blood Type Code (test code = 071021) Unit Blood Type (test A Pos code = 4410) Unit Number (test [id number] code = 4411) Blood Expiration Date & Time (test code = 184787) Status Information Issued (test code = 4412) Product Red Blood Cells Identification (test code = 4413) Product Code (test [id number] Performed at [facility] code = 4414) Laboratory Services - [facility] Blood [address] [place] [address]Sluc Free: [phone] A No. [id number] [facility] [id number] 03:47:19 Test Item Value Reference Range Interpretation Comments WBC (test code = 6690-2) See_Comment H [A utomated message] The system [employer] generated this result transmit qing reference range : 4.20 - 10.70 10*3/?L. The reference range was not used to interpret this result as normal/abnormal . RBC (test code = 789-8) See_Comment L [Au tomated message] The system [employer] generated this result transmit qing reference range : 4.26 - 5.52 10* 6/?L. The reference r jalen was not used to interpret this result as normal/abnormal . HGB (test code = 718-7) 7.0 g/dL 12.2-16.4 L HCT (test code = 4544-3) 21.9 % 38.4-49.3 L MCH (test code = 785-6) 31.3 pg 26.1-32.7 MCV (test code = 787-2) 97.8 fL 81.7-95.6 H MCHC (test code = 786-4) 32.0 g/dL 31.2-35.0 PLT (test code = 777-3) See_Comment H [Au tomated message] The system [facility] generated this result transmit qing reference range : 150 - 328 10*3/?L. The reference range was not used to interpret this result as normal/abnormal . MPV (test code = 9.0 fL 9.8-13.0 L 54618-0) RDW-CV (test code = 15.5 % 12.1-15.4 H 788-0) RDW-SD (test code = 51.8 fL 38.5-51.6 H 93203-6) NRBC x10^3 (test code = See_Comment [Au tomated message] 3256433050) The system [facility] generated this result transmit qing reference range : 10*3/?L. The reference range was not used to interpret this result as normal/abnormal . NRBC/100 WBC (test code See_Comment [Au tomated message] = 9721177031) The system [facility] generated this result transmit qing reference range : 0.0 - 10.0 /100 WBC s. The reference r jalen was not used to interpret this result as normal/abnormal . IPF % (test code = 2515540602) Lab Interpretation (test Abnormal code = 52847-4) [facility] WITHOUT [id number] 03:47:19 Test Item Value Reference Range Interpretation Comments WBC (test code = 6690-2) See_Comment H [A utomated message] The system [facility] generated this result transmit qing reference range : 4.20 - 10.70 10*3/?L. The reference range was not used to interpret this result as normal/abnormal . RBC (test code = 789-8) See_Comment L [Au tomated message] The system [facility] generated this result transmit qing reference range : 4.26 - 5.52 10* 6/?L. The reference r jalen was not used to interpret this result as normal/abnormal . HGB (test code = 718-7) 7.0 g/dL 12.2-16.4 L HCT (test code = 4544-3) 21.9 % 38.4-49.3 L MCH (test code = 785-6) 31.3 pg 26.1-32.7 MCV (test code = 787-2) 97.8 fL 81.7-95.6 H MCHC (test code = 786-4) 32.0 g/dL 31.2-35.0 PLT (test code = 777-3) See_Comment H [Au tomated message] The system [employer] generated this result transmit qing reference range : 150 - 328 10*3/?L. The reference range was not used to interpret this result as normal/abnormal . MPV (test code = 9.0 fL 9.8-13.0 L 14857-8) RDW-CV (test code = 15.5 % 12.1-15.4 H 788-0) RDW-SD (test code = 51.8 fL 38.5-51.6 H 28864-0) NRBC x10^3 (test code = See_Comment [Au tomated message] 4665274748) The system [employer] generated this result transmit qing reference range : 10*3/?L. The reference range was not used to interpret this result as normal/abnormal . NRBC/100 WBC (test code See_Comment [Au tomated message] = 2554051119) The system [employer] [facility] generated this result transmit qing reference range : 0.0 - 10.0 /100 WBC s. The reference r jalen was not used to interpret this result as normal/abnormal . IPF % (test code = 9990554950) Lab Interpretation (test Abnormal code = 65325-1) [facility] CONSULT [id number] 00:38:08 LEUKOCYTOSIS WITH ABSOLUTE NEUTROPHILIA. NORMOCYTIC NORMOCHROMIC ANEMIA. THROMBOCYTOSIS.[facility] CONSULT INTERPRETATION 2021-03-28 00:38:08LEUKOCYTOSIS WITH ABSOLUTE NEUTROPHILIA. NORMOCYTIC NORMOCHROMIC ANEMIA. THROMBOCYTOSIS.[facility] CONSULT [id number] 00:38:08LEUKOCYTOSIS WITH ABSOLUTE NEUTROPHILIA. NORMOCYTIC NORMOCHROMIC ANEMIA. THROMBOCYTOSIS.[facility] WITHOUT [id number] 22:31:43 Test Item Value Reference Range Interpretation Comments WBC (test code = 6690-2) See_Comment H [A utomated message] The system [employer] generated this result transmit qing reference range : 4.20 - 10.70 10*3/?L. The reference range was not used to interpret this result as normal/abnormal . RBC (test code = 789-8) See_Comment L [Au tomated message] The system [employer] generated this result transmit qing reference range : 4.26 - 5.52 10* 6/?L. The reference r jalen was not used to interpret this result as normal/abnormal . HGB (test code = 718-7) 7.2 g/dL 12.2-16.4 L HCT (test code = 4544-3) 22.5 % 38.4-49.3 L MCH (test code = 785-6) 31.0 pg 26.1-32.7 MCV (test code = 787-2) 97.0 fL 81.7-95.6 H MCHC (test code = 786-4) 32.0 g/dL 31.2-35.0 PLT (test code = 777-3) See_Comment H [Au tomated message] The system [facility] generated this result transmit qing reference range : 150 - 328 10*3/?L. The reference range was not used to interpret this result as normal/abnormal . MPV (test code = 9.4 fL 9.8-13.0 L 71007-0) RDW-CV (test code = 15.4 % 12.1-15.4 788-0) RDW-SD (test code = 52.7 fL 38.5-51.6 H 32472-3) NRBC x10^3 (test code = See_Comment [Au tomated message] 3558241376) The system [employer] generated this result transmit qing reference range : 10*3/?L. The reference range was not used to interpret this result as normal/abnormal . NRBC/100 WBC (test code See_Comment [Au tomated message] = 8706377738) The system [facility] generated this result transmit qing reference range : 0.0 - 10.0 /100 WBC s. The reference r jalen was not used to interpret this result as normal/abnormal . IPF % (test code = 9188062311) Lab Interpretation (test Abnormal code = 82445-4) [facility] WITHOUT [id number] 22:31:43 Test Item Value Reference Range Interpretation Comments WBC (test code = 6690-2) See_Comment H [A utomated message] The system [employer] generated this result transmit qing reference range : 4.20 - 10.70 10*3/?L. The reference range was not used to interpret this result as normal/abnormal . RBC (test code = 789-8) See_Comment L [Au tomated message] The system [facility] generated this result transmit qing reference range : 4.26 - 5.52 10* 6/?L. The reference r jalen was not used to interpret this result as normal/abnormal . HGB (test code = 718-7) 7.2 g/dL 12.2-16.4 L HCT (test code = 4544-3) 22.5 % 38.4-49.3 L MCH (test code = 785-6) 31.0 pg 26.1-32.7 MCV (test code = 787-2) 97.0 fL 81.7-95.6 H MCHC (test code = 786-4) 32.0 g/dL 31.2-35.0 PLT (test code = 777-3) See_Comment H [Au tomated message] The system [facility] generated this result transmit qing reference range : 150 - 328 10*3/?L. The reference range was not used to interpret this result as normal/abnormal . MPV (test code = 9.4 fL 9.8-13.0 L 12862-5) RDW-CV (test code = 15.4 % 12.1-15.4 788-0) RDW-SD (test code = 52.7 fL 38.5-51.6 H 26382-0) NRBC x10^3 (test code = See_Comment [Au tomated message] 7300978088) The system [employer] generated this result transmit qing reference range : 10*3/?L. The reference range was not used to interpret this result as normal/abnormal . NRBC/100 WBC (test code See_Comment [Au tomated message] = 5225980449) The system [facility] generated this result transmit iqng reference range : 0.0 - 10.0 /100 WBC s. The reference r jalen was not used to interpret this result as normal/abnormal . IPF % (test code = 1503749855) Lab Interpretation (test Abnormal code = 91210-6) [facility] GLUCOSE (AUTOMATED)2021-03-27 22:21:31 Test Item Value Reference Range Interpretation Comments POCT GLU (test code = 2861241846) 133 mg/dL 70-110 H Lab Interpretation (test code = Abnormal 05082-5) [facility] GLUCOSE (AUTOMATED)2021-03-27 22:21:31 Test Item Value Reference Range Interpretation Comments POCT GLU (test code = 1919873652) 133 mg/dL 70-110 H Lab Interpretation (test code = Abnormal 47210-6) [facility] [id number] 21:30:09 Test Item Value Reference Range Interpretation Comments JIM (test code = Negative Negative 0685042041) POP (test code = POP) Negative - No Anti-Nuclear Antibodies detected by IFA.Positive - JIM IFA screen performed with a 1:80 dilution in adults and a 1:40 dilution in pediatrics. Any JIM "Positive" will have titer performed and reported separately.Negative - No Anti-Nuclear Antibodies detected by IFA.Positive - JIM IFA screen performed with a 1:80 dilution in adults and a 1:40 dilution in pediatrics. Any JIM "Positive" will have titer performed and reported separately. Lab Interpretation (test Normal code = 86195-5) [facility] [id number] 21:30:09 Test Item Value Reference Range Interpretation Comments JIM (test code = Negative Negative 3910581787) POP (test code = POP) Negative - No Anti-Nuclear Antibodies detected by IFA.Positive - JIM IFA screen performed with a 1:80 dilution in adults and a 1:40 dilution in pediatrics. Any JIM "Positive" will have titer performed and reported separately.Negative - No Anti-Nuclear Antibodies detected by IFA.Positive - JIM IFA screen performed with a 1:80 dilution in adults and a 1:40 dilution in pediatrics. Any JIM "Positive" will have titer performed and reported separately. Lab Interpretation (test Normal code = 46182-3) [facility] [id number] 21:30:09 Test Item Value Reference Range Interpretation Comments JIM (test code = Negative Negative 3717827758) POP (test code = POP) Negative - No Anti-Nuclear Antibodies detected by IFA.Positive - JIM IFA screen performed with a 1:80 dilution in adults and a 1:40 dilution in pediatrics. Any JIM "Positive" will have titer performed and reported separately.Negative - No Anti-Nuclear Antibodies detected by IFA.Positive - JIM IFA screen performed with a 1:80 dilution in adults and a 1:40 dilution in pediatrics. Any JIM "Positive" will have titer performed and reported separately. Lab Interpretation (test Normal code = 45516-8) [facility] ONLY - SYPHILIS [id number] 18:20:12 Test Item Value Reference Range Interpretation Comments Syphilis IgG/IgM (test Non-reactive Non-reactive code = 19591-1) POP (test code = POP) Non-reactive - No serologic evidence of T. pallidum infection. Cannot exclude incubating or early syphilis. Submit a second specimen in 2-4 weeks if syphilis is clinically suspected. Equivocal - Further testing to follow. Reactive - Further testing to follow. Lab Interpretation (test Normal code = 52961-0) [facility] ONLY - SYPHILIS [id number] 18:20:12 Test Item Value Reference Range Interpretation Comments Syphilis IgG/IgM (test Non-reactive Non-reactive code = 24277-8) POP (test code = POP) Non-reactive - No serologic evidence of T. pallidum infection. Cannot exclude incubating or early syphilis. Submit a second specimen in 2-4 weeks if syphilis is clinically suspected. Equivocal - Further testing to follow. Reactive - Further testing to follow. Lab Interpretation (test Normal code = 29510-7) [facility] ONLY - SYPHILIS [id number] 18:20:12 Test Item Value Reference Range Interpretation Comments Syphilis IgG/IgM (test Non-reactive Non-reactive code = 59356-2) POP (test code = POP) Non-reactive - No serologic evidence of T. pallidum infection. Cannot exclude incubating or early syphilis. Submit a second specimen in 2-4 weeks if syphilis is clinically suspected. Equivocal - Further testing to follow. Reactive - Further testing to follow. Lab Interpretation (test Normal code = 60991-0) [facility] [id number] 16:53:08 Test Item Value Reference Range Interpretation Comments ABO & RH (test code A POSITIVE Performe d at [facility] = 20) Laboratory Serv [facility] Blood [facility] [place] [address] s [id number] Free: [phone] A No. [id number] IAT (test code = Negative Performed a t [facility] 1185) Laboratory [facility] Blood [facility] [address] [place] [address] s [id number] Free: [phone] A No. [id number] [facility] - [facility]CE [id number] 16:53:08 Test Item Value Reference Range Interpretation Comments ABO & RH (test code A POSITIVE Performe d at [facility] = 20) Laboratory [facility] Blood [address] s [id number] Free: [phone] A No. [id number] IAT (test code = Negative Performed a t [facility] 1185) Laboratory [facility] Blood [address] s [address]Yhxf Free: [phone] A No. [id number] [facility] [id number] 16:53:08 Test Item Value Reference Range Interpretation Comments ABO & RH (test code A POSITIVE Performe d at [facility] = 20) Laboratory [facility] Blood [address] s [id number] Free: [phone] A No. [id number] IAT (test code = Negative Performed a t [facility] 1185) Laboratory [facility] Blood [address] s [id number] Free: [phone] A No. [id number] [facility] (Lab Only)2021-03-27 16:31:51 Test Item Value Reference Range Interpretation Comments ABO & RH (test code A Positive Performe d at [facility] = 20) Laboratory [facility] Blood [address] [place] [address] s [address]Mmxp Free: [phone] A No. [id number] [facility] (Lab Only)2021-03-27 16:31:51 Test Item Value Reference Range Interpretation Comments ABO & RH (test code A Positive Performe d at [facility] = 20) Laboratory Serv [facility] Blood [facility]3 [address] [facility] s [address]Igzu Free: [phone] A No. [id number] [facility] Confirmation (Lab Only)2021-03-27 16:31:51 Test Item Value Reference Range Interpretation Comments ABO & RH (test code A Positive Performe d at [facility] = 20) Laboratory [facility] Blood [facility]3 [address] [facility] s [address]Finj Free: [phone] A No. [id number] [facility] [id number] 16:00:28 Test Item Value Reference Range Interpretation Comments HAPTOGLOB (test code = 2254073840) 377 mg/dL 16-200 H Lab Interpretation (test code = Abnormal 91955-9) [facility] [id number] 16:00:28 Test Item Value Reference Range Interpretation Comments HAPTOGLOB (test code = 8687835021) 377 mg/dL 16-200 H Lab Interpretation (test code = Abnormal 32901-9) [facility] [id number] 16:00:28 Test Item Value Reference Range Interpretation Comments HAPTOGLOB (test code = 5127671833) 377 mg/dL 16-200 H Lab Interpretation (test code = Abnormal 92676-3) [facility] GLUCOSE (AUTOMATED)2021-03-27 14:14:57 Test Item Value Reference Range Interpretation Comments POCT GLU (test code = 5328393882) 104 mg/dL 70-110 Lab Interpretation (test code = Normal 97300-9) [facility] GLUCOSE (AUTOMATED)2021-03-27 14:14:57 Test Item Value Reference Range Interpretation Comments POCT GLU (test code = 7839639459) 104 mg/dL 70-110 Lab Interpretation (test code = Normal 31796-0) [facility] WITH [id number] 11:09:24 Test Item Value Reference Range Interpretation Comments WBC (test code = See_Comment H [Automated 6690-2) message] The system which generated this result transmit qing reference range : 4.20 - 10.70 10*3/?L. The reference range was not used to interpret this result as normal/abnormal . RBC (test code = See_Comment L [Automated 789-8) message] The system which generated this result transmit qing reference range : 4.26 - 5.52 10*6/?L. The reference range was not used to interpret this result as normal/abnormal . HGB (test code = 7.2 g/dL 12.2-16.4 L 718-7) HCT (test code = 22.5 % 38.4-49.3 L 4544-3) MCV (test code = 96.2 fL 81.7-95.6 H 787-2) MCH (test code = 30.8 pg 26.1-32.7 785-6) MCHC (test code = 32.0 g/dL 31.2-35.0 786-4) RDW-SD (test code = 51.7 fL 38.5-51.6 H 45297-9) RDW-CV (test code = 15.1 % 12.1-15.4 788-0) PLT (test code = See_Comment H [Automated 777-3) message] The system which generated this result transmit qing reference range : 150 - 328 10*3/ ?L. The reference range was not u sed to interpret th is result as normal/abnormal . MPV (test code = 9.1 fL 9.8-13.0 L 97996-8) NRBC/100 WBC (test See_Comment [Automat ed code = 9354777491) message] The system which generated this result transmit qing reference range : 0.0 - 10.0 /100 WBCs. The reference range was not used to interpret this result as normal/abnormal . NRBC x10^3 (test code See_Comment [Auto mated = 3236492332) message] The system which generated this result transmit qing reference range : 10*3/?L. The reference range was not used to interpret this result as normal/abnormal . GRAN MAT (NEUT) % 77.2 % (test code = 770-8) IMM GRAN % (test code 1.90 % = 4703453422) LYMPH % (test code = 14.7 % 736-9) MONO % (test code = 4.6 % 5905-5) EOS % (test code = 1.3 % 713-8) BASO % (test code = 0.3 % 706-2) GRAN MAT x10^3(ANC) 15.48 10*3/uL 1.99-6.95 H (test code = 7141085994) IMM GRAN x10^3 (test 0.38 10*3/uL 0.00-0.06 H code = 5441930918) LYMPH x10^3 (test code 2.96 10*3/uL 1.09-3.23 = 731-0) MONO x10^3 (test code 0.92 10*3/uL 0.36-1.02 = 742-7) EOS x10^3 (test code = 0.27 10*3/uL 0.06-0.53 711-2) BASO x10^3 (test code 0.06 10*3/uL 0.01-0.09 = 704-7) POLYCHROMASIA (test 2+ See_Comment [Automa qing code = 33956-5) message] The system which generated this result transmit qing reference range : 2+. The referen ce range was not u sed to interpret th is result as normal/abnormal . Lab Interpretation Abnormal (test code = 55149-5) [facility] WITH [id number] 11:09:24 Test Item Value Reference Range Interpretation Comments WBC (test code = See_Comment H [Automated 8190-2) message] The system which generated this result transmit qing reference range : 4.20 - 10.70 10*3/?L. The reference range was not used to interpret this result as normal/abnormal . RBC (test code = See_Comment L [Automated 449-8) message] The system which generated this result transmit qing reference range : 4.26 - 5.52 10*6/?L. The reference range was not used to interpret this result as normal/abnormal . HGB (test code = 7.2 g/dL 12.2-16.4 L 718-7) HCT (test code = 22.5 % 38.4-49.3 L 4544-3) MCV (test code = 96.2 fL 81.7-95.6 H 787-2) MCH (test code = 30.8 pg 26.1-32.7 785-6) MCHC (test code = 32.0 g/dL 31.2-35.0 786-4) RDW-SD (test code = 51.7 fL 38.5-51.6 H 56727-1) RDW-CV (test code = 15.1 % 12.1-15.4 788-0) PLT (test code = See_Comment H [Automated 777-3) message] The system which generated this result transmit qing reference range : 150 - 328 10*3/ ?L. The reference range was not u sed to interpret th is result as normal/abnormal . MPV (test code = 9.1 fL 9.8-13.0 L 11204-2) NRBC/100 WBC (test See_Comment [Automat ed code = 8952219975) message] The system which generated this result transmit qing reference range : 0.0 - 10.0 /100 WBCs. The reference range was not used to interpret this result as normal/abnormal . NRBC x10^3 (test code See_Comment [Auto mated = 5268926404) message] The system which generated this result transmit qing reference range : 10*3/?L. The reference range was not used to interpret this result as normal/abnormal . GRAN MAT (NEUT) % 77.2 % (test code = 770-8) IMM GRAN % (test code 1.90 % = 4241537484) LYMPH % (test code = 14.7 % 736-9) MONO % (test code = 4.6 % 5905-5) EOS % (test code = 1.3 % 713-8) BASO % (test code = 0.3 % 706-2) GRAN MAT x10^3(ANC) 15.48 10*3/uL 1.99-6.95 H (test code = 6523502049) IMM GRAN x10^3 (test 0.38 10*3/uL 0.00-0.06 H code = 7842473931) LYMPH x10^3 (test code 2.96 10*3/uL 1.09-3.23 = 731-0) MONO x10^3 (test code 0.92 10*3/uL 0.36-1.02 = 742-7) EOS x10^3 (test code = 0.27 10*3/uL 0.06-0.53 711-2) BASO x10^3 (test code 0.06 10*3/uL 0.01-0.09 = 704-7) POLYCHROMASIA (test 2+ See_Comment [Automa qing code = 80125-0) message] The system which generated this result transmit qing reference range : 2+. The referen ce range was not u sed to interpret th is result as normal/abnormal . Lab Interpretation Abnormal (test code = 10265-3) [facility] / [id number] 10:05:30 Test Item Value Reference Range Interpretation Comments PROTIME PATIENT (test See_Comment H [Auto mated message] code = 5964-2) The system [employer] generated this result transmitted ref erence range: 10.1 - 1 2.6 Seconds. The reference range was not used to int erpret this result as normal/abnormal . INR (test code = 6301-6) Nor mal INR <1.1; Warfarin Therap eutic range 2.0 to 3. 0 or 2.5 to 3.5, dep ending upon the indica tions. Lab Interpretation (test Abnormal code = 61745-7) [facility] / [id number] 10:05:30 Test Item Value Reference Range Interpretation Comments PROTIME PATIENT (test See_Comment H [Auto mated message] code = 5964-2) The system [employer] generated this result transmitted ref erence range: 10.1 - 1 2.6 Seconds. The reference range was not used to int erpret this result as normal/abnormal . INR (test code = 6301-6) Nor mal INR <1.1; Warfarin Therap eutic range 2.0 to 3. 0 or 2.5 to 3.5, dep ending upon the indica tions. Lab Interpretation (test Abnormal code = 26182-2) [facility] 22:44:42 Test Item Value Reference Range Interpretation Comments POCT GLU (test code = 7028747786) 145 mg/dL 70-110 H Lab Interpretation (test code = Abnormal 18908-0) [facility]21-[facility]-26 22:44:42 Test Item Value Reference Range Interpretation Comments POCT GLU (test code = 6474666117) 145 mg/dL 70-110 H Lab Interpretation (test code = Abnormal 14169-9) [facility] [id number] 20:57:41 Test Item Value Reference Range Interpretation Comments RETIC Count Automated 5.85 % 0.59-2.24 H (test code = 9895298844) RETIC Absolute Count See_Comment H [Autom ated message] (test code = 1424376358) The system which generated this result transmitted ref erence range: 0.0260 - 0.1170 10*6/?L. The reference range was not used to int erpret this result as normal/abnormal . IRF % (test code = 38.60 % 2.00-19.10 H 6092150705) RETIC-HE (test code = 24.8 pg 27.3-36.4 L 8133371337) Lab Interpretation (test Abnormal code = 14197-1) [facility] [id number] 20:57:41 Test Item Value Reference Range Interpretation Comments RETIC Count Automated 5.85 % 0.59-2.24 H (test code = 1626958550) RETIC Absolute Count See_Comment H [Autom ated message] (test code = 1627793752) The system which generated this result transmitted ref erence range: 0.0260 - 0.1170 10*6/?L. The reference range was not used to int erpret this result as normal/abnormal . IRF % (test code = 38.60 % 2.00-19.10 H 5766592176) RETIC-HE (test code = 24.8 pg 27.3-36.4 L 5206575962) Lab Interpretation (test Abnormal code = 21761-2) [facility] [id number] 20:57:41 Test Item Value Reference Range Interpretation Comments RETIC Count Automated 5.85 % 0.59-2.24 H (test code = 8762118880) RETIC Absolute Count See_Comment H [Autom ated message] (test code = 5690499743) The system which generated this result transmitted ref erence range: 0.0260 - 0.1170 10*6/?L. The reference range was not used to int erpret this result as normal/abnormal . IRF % (test code = 38.60 % 2.00-19.10 H 0789392874) RETIC-HE (test code = 24.8 pg 27.3-36.4 L 0733881365) Lab Interpretation (test Abnormal code = 81824-7) [facility] [id number] 20:48:58 Test Item Value Reference Range Interpretation Comments LDH (test code = 5028652708) 411 U/L 300-600 Lab Interpretation (test code = Normal 90360-3) [facility] [id number] 20:48:58 Test Item Value Reference Range Interpretation Comments LDH (test code = 3568907677) 411 U/L 300-600 Lab Interpretation (test code = Normal 52635-6) [facility] [id number] 20:48:58 Test Item Value Reference Range Interpretation Comments LDH (test code = 4864749194) 411 U/L 300-600 Lab Interpretation (test code = Normal 18738-2) [facility] (77381[facility] (ALB,T.PRO,BILI T,BU/BC,ALT,AST,ALK PHOS)2021-03-26 20:36:03 Test Item Value Reference Range Interpretation Comments TOTAL BILI (test code = 3777918432) 0.8 mg/dL 0.1-1.1 BILI UNCON (test code = 4656801105) 0.3 mg/dL 0.1-1.1 BILI CONJ (test code = 7218950341) 0.0 mg/dL 0.0-0.3 T PROTEIN (test code = 9599889212) 6.4 g/dL 6.3-8.2 ALBUMIN (test code = 4130853243) 3.2 g/dL 3.5-5.0 L ALK PHOS (test code = 2639560012) 90 U/L 34-122 ALTv (test code = 1742-6) 40 U/L 5-50 AST(SGOT) (test code = 7360374004) 68 U/L 13-40 H Lab Interpretation (test code = Abnormal 64345-3) [facility] (12497[facility] (ALB,T.PRO,BILI T,BU/BC,ALT,AST,ALK PHOS)2021-03-26 20:36:03 Test Item Value Reference Range Interpretation Comments TOTAL BILI (test code = 6849004465) 0.8 mg/dL 0.1-1.1 BILI UNCON (test code = 8053543976) 0.3 mg/dL 0.1-1.1 BILI CONJ (test code = 3648593210) 0.0 mg/dL 0.0-0.3 T PROTEIN (test code = 0859111854) 6.4 g/dL 6.3-8.2 ALBUMIN (test code = 1201099386) 3.2 g/dL 3.5-5.0 L ALK PHOS (test code = 8749223446) 90 U/L 34-122 ALTv (test code = 1742-6) 40 U/L 5-50 AST(SGOT) (test code = 6916232619) 68 U/L 13-40 H Lab Interpretation (test code = Abnormal 93555-4) [facility] (49130[facility] (ALB,T.PRO,BILI T,BU/BC,ALT,AST,ALK PHOS)2021-03-26 20:36:03 Test Item Value Reference Range Interpretation Comments TOTAL BILI (test code = 4125882494) 0.8 mg/dL 0.1-1.1 BILI UNCON (test code = 8776219248) 0.3 mg/dL 0.1-1.1 BILI CONJ (test code = 8389160750) 0.0 mg/dL 0.0-0.3 T PROTEIN (test code = 4144494528) 6.4 g/dL 6.3-8.2 ALBUMIN (test code = 2768732818) 3.2 g/dL 3.5-5.0 L ALK PHOS (test code = 4525903252) 90 U/L 34-122 ALTv (test code = 1742-6) 40 U/L 5-50 AST(SGOT) (test code = 6815299153) 68 U/L 13-40 H Lab Interpretation (test code = Abnormal 12285-1) General acute hospital 1/2 AG-AB WITH [id number] 19:26:57 Test Item Value Reference Range Interpretation Comments HIV Negative Negative Semi-quantitative (test code = 34652-4) POP (test code = Non-reactive for HIV-1 POP) antigen and HIV-1/HIV-2 antibodies. ?No laboratory evidence of HIV infection. ?Repeat in 2-4 weeks if acute HIV infection is suspected. General acute hospital 1/2 AG-AB WITH [id number] 19:26:57 Test Item Value Reference Range Interpretation Comments HIV Negative Negative Semi-quantitative (test code = 33667-9) POP (test code = Non-reactive for HIV-1 POP) antigen and HIV-1/HIV-2 antibodies. ?No laboratory evidence of HIV infection. ?Repeat in 2-4 weeks if acute HIV infection is suspected. General acute hospital 1/2 AG-AB WITH [id number] 19:26:57 Test Item Value Reference Range Interpretation Comments HIV Negative Negative Semi-quantitative (test code = 90702-9) POP (test code = Non-reactive for HIV-1 POP) antigen and HIV-1/HIV-2 antibodies. ?No laboratory evidence of HIV infection. ?Repeat in 2-4 weeks if acute HIV infection is suspected. [facility] GLUCOSE (AUTOMATED)2021-03-26 18:22:48 Test Item Value Reference Range Interpretation Comments POCT GLU (test code = 1729605044) 127 mg/dL 70-110 H Lab Interpretation (test code = Abnormal 08613-7) [facility] GLUCOSE (AUTOMATED)2021-03-26 18:22:48 Test Item Value Reference Range Interpretation Comments POCT GLU (test code = 1853823596) 127 mg/dL 70-110 H Lab Interpretation (test code = Abnormal 02354-4) [facility] GLUCOSE (AUTOMATED)2021-03-26 14:52:39 Test Item Value Reference Range Interpretation Comments POCT GLU (test code = 1115229090) 144 mg/dL 70-110 H Lab Interpretation (test code = Abnormal 91941-2) [facility] GLUCOSE (AUTOMATED)2021-03-26 14:52:39 Test Item Value Reference Range Interpretation Comments POCT GLU (test code = 7363634880) 144 mg/dL 70-110 H Lab Interpretation (test code = Abnormal 74017-3) [facility] WITHOUT [id number] 12:12:23 Test Item Value Reference Range Interpretation Comments WBC (test code = 6690-2) See_Comment H [A utomated message] The system [employer] generated this result transmit qing reference range : 4.20 - 10.70 10*3/?L. The reference range was not used to interpret this result as normal/abnormal . RBC (test code = 789-8) See_Comment L [Au tomated message] The system [employer] generated this result transmit qing reference range : 4.26 - 5.52 10* 6/?L. The reference r jalen was not used to interpret this result as normal/abnormal . HGB (test code = 718-7) 7.5 g/dL 12.2-16.4 L HCT (test code = 4544-3) 23.2 % 38.4-49.3 L MCH (test code = 785-6) 30.6 pg 26.1-32.7 MCV (test code = 787-2) 94.7 fL 81.7-95.6 MCHC (test code = 786-4) 32.3 g/dL 31.2-35.0 PLT (test code = 777-3) See_Comment H [Au tomated message] The system [employer] generated this result transmit qing reference range : 150 - 328 10*3/?L. The reference range was not used to interpret this result as normal/abnormal . MPV (test code = 9.0 fL 9.8-13.0 L 89080-7) RDW-CV (test code = 14.7 % 12.1-15.4 788-0) RDW-SD (test code = 50.3 fL 38.5-51.6 95529-6) NRBC x10^3 (test code = See_Comment [Au tomated message] 5862863149) The system [employer] generated this result transmit qing reference range : 10*3/?L. The reference range was not used to interpret this result as normal/abnormal . NRBC/100 WBC (test code See_Comment [Au tomated message] = 8216626174) The system [facility] generated this result transmit qing reference range : 0.0 - 10.0 /100 WBC s. The reference r jalen was not used to interpret this result as normal/abnormal . IPF % (test code = 0671649819) Lab Interpretation (test Abnormal code = 60874-4) [facility] WITHOUT [id number] 12:12:23 Test Item Value Reference Range Interpretation Comments WBC (test code = 6690-2) See_Comment H [A utomated message] The system [employer] generated this result transmit qing reference range : 4.20 - 10.70 10*3/?L. The reference range was not used to interpret this result as normal/abnormal . RBC (test code = 789-8) See_Comment L [Au tomated message] The system [employer] generated this result transmit qing reference range : 4.26 - 5.52 10* 6/?L. The reference r jalen was not used to interpret this result as normal/abnormal . HGB (test code = 718-7) 7.5 g/dL 12.2-16.4 L HCT (test code = 4544-3) 23.2 % 38.4-49.3 L MCH (test code = 785-6) 30.6 pg 26.1-32.7 MCV (test code = 787-2) 94.7 fL 81.7-95.6 MCHC (test code = 786-4) 32.3 g/dL 31.2-35.0 PLT (test code = 777-3) See_Comment H [Au tomated message] The system [employer] generated this result transmit qing reference range : 150 - 328 10*3/?L. The reference range was not used to interpret this result as normal/abnormal . MPV (test code = 9.0 fL 9.8-13.0 L 55318-4) RDW-CV (test code = 14.7 % 12.1-15.4 788-0) RDW-SD (test code = 50.3 fL 38.5-51.6 01971-2) NRBC x10^3 (test code = See_Comment [Au tomated message] [id number]) The system [employer] generated this result transmit qing reference range : 10*3/?L. The reference range was not used to interpret this result as normal/abnormal . NRBC/100 WBC (test code See_Comment [Au tomated message] = 8099892296) The system [employer] generated this result transmit qing reference range : 0.0 - 10.0 /100 WBC s. The reference r jalen was not used to interpret this result as normal/abnormal . IPF % (test code = 0731693819) Lab Interpretation (test Abnormal code = 72366-7) [facility] CULTURE [id number] 03:01:28 Test Item Value Reference Range Interpretation Comments Blood Culture-Aerobic No organisms No growth Previo us (test code = 52281-6) isolated prelim inary verified result was Culture In Progress on 03/21/2021 at 0001 CSTPreviou s preliminary verified result was No growth a t 24 hours on 03/21/2021 at 2101 CSTPreviou s preliminary verified result was No growth a t 48 hours on 03/22/2021 at 2101 CSTPreviou s preliminary verified result was No growth a t 72 hours on 03/23/2021 at 2101 [employer] Blood No organisms No growth Previous Culture-Anaerobic isolated preliminar y (test code = 31282-9) verifi ed result was Culture In Progress on 03/21/2021 at 0001 CSTPreviou s preliminary verified result was No growth a t 24 hours on 03/21/2021 at 2101 CSTPreviou s preliminary verified result was No growth a t 48 hours on 03/22/2021 at 2101 CSTPreviou s preliminary verified result was No growth a t 72 hours on 03/23/2021 at 2101 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 Normal (test code = 76792-7) [facility] CULTURE [id number] 03:01:28 Test Item Value Reference Range Interpretation Comments Blood Culture-Aerobic No organisms No growth Previo us (test code = 46619-2) isolated prelim inary verified result was Culture In Progress on 03/21/2021 at 0001 CSTPreviou s preliminary verified result was No growth a t 24 hours on 03/21/2021 at 2101 CSTPreviou s preliminary verified result was No growth a t 48 hours on 03/22/2021 at 2101 CSTPreviou s preliminary verified result was No growth a t 72 hours on 03/23/2021 at 2101 [employer] Blood No organisms No growth Previous Culture-Anaerobic isolated preliminar y (test code = 29929-4) verifi ed result was Culture In Progress on 03/21/2021 at 0001 CSTPreviou s preliminary verified result was No growth a t 24 hours on 03/21/2021 at 2101 CSTPreviou s preliminary verified result was No growth a t 48 hours on 03/22/2021 at 210 CSTPreviou s preliminary verified result was No growth a t 72 hours on 03/23/2021 at 2101 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 Normal (test code = 42867-9) [facility] CULTURE [id number] 03:01:28 Test Item Value Reference Range Interpretation Comments Blood Culture-Aerobic No organisms No growth Previo us (test code = 00592-8) isolated prelim inary verified result was Culture In Progress on 03/21/2021 at 0001 CSTPreviou s preliminary verified result was No growth a t 24 hours on 03/21/2021 at 2101 CSTPreviou s preliminary verified result was No growth a t 48 hours on 03/22/2021 at 210 CSTPreviou s preliminary verified result was No growth a t 72 hours on 03/23/2021 at 2101 [employer] Blood No organisms No growth Previous Culture-Anaerobic isolated preliminar y (test code = 44702-8) verifi ed result was Culture In Progress on 03/21/2021 at 0001 CSTPreviou s preliminary verified result was No growth a t 24 hours on 03/21/2021 at 210 CSTPreviou s preliminary verified result was No growth a t 48 hours on 03/22/2021 at 210 CSTPreviou s preliminary verified result was No growth a t 72 hours on 03/23/2021 at 2101 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 Normal (test code = 83846-3) [facility] CULTURE [id number] 02:01:31 Test Item Value Reference Range Interpretation Comments Blood Culture-Aerobic No organisms No growth Previo us (test code = 81502-3) isolated prelim inary verified result was Culture In Progress on 03/20/2021 at 2302 CSTPreviou s preliminary verified result was No growth a t 24 hours on 03/21/2021 at 2000 CSTPreviou s preliminary verified result was No growth a t 48 hours on 03/22/2021 at 2000 CSTPreviou s preliminary verified result was No growth a t 72 hours on 03/23/2021 at 2000 [employer] Blood No organisms No growth Previous Culture-Anaerobic isolated preliminar y (test code = 58150-3) verifi ed result was Culture In Progress on 03/20/2021 at 2302 CSTPreviou s preliminary verified result was No growth a t 24 hours on 03/21/2021 at 2000 CSTPreviou s preliminary verified result was No growth a t 48 hours on 03/22/2021 at 2000 CSTPreviou s preliminary verified result was No growth a t 72 hours on 03/23/2021 at 2000 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 Normal (test code = 59908-1) [facility] [id number] 02:01:31 Test Item Value Reference Range Interpretation Comments Blood Culture-Aerobic No organisms No growth Previo us (test code = 88815-1) isolated prelim inary verified result was Culture In Progress on 03/20/2021 at 2302 CSTPreviou s preliminary verified result was No growth a t 24 hours on 03/21/2021 at 2000 CSTPreviou s preliminary verified result was No growth a t 48 hours on 03/22/2021 at 2000 CSTPreviou s preliminary verified result was No growth a t 72 hours on 03/23/2021 at 2000 [employer] Blood No organisms No growth Previous Culture-Anaerobic isolated preliminar y (test code = 40291-4) verifi ed result was Culture In Progress on 03/20/2021 at 2302 CSTPreviou s preliminary verified result was No growth a t 24 hours on 03/21/2021 at 2000 CSTPreviou s preliminary verified result was No growth a t 48 hours on 03/22/2021 at 2000 CSTPreviou s preliminary verified result was No growth a t 72 hours on 03/23/2021 at 2000 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 Normal (test code = 30433-4) [facility]:50:12 Test Item Value Reference Range Interpretation Comments POCT GLU (test code = 5996624929) 129 mg/dL 70-110 H Lab Interpretation (test code = Abnormal 52427-6) [facility] 22:50:12 Test Item Value Reference Range Interpretation Comments POCT GLU (test code = 0281287514) 129 mg/dL 70-110 H Lab Interpretation (test code = Abnormal 44647-8) [facility]-[id number] 21:20:20 Test Item Value Reference Interpretation Comments Range D-DIMER (test code = See_Comment H [Autom ated 9962430239) message] The system which generated this result transmitted reference range : <0.50 ?g/mL (FEU). The reference range was not used to interpret this result as normal/abnormal . POP (test code = This test may be POP) used in conjunction with a clinical pretest probability (PTP) assessment model to exclude venous thromboembolism (VTE) in patients suspected of deep venous thrombosis (DVT) and pulmonary embolism (PE) A D-Dimer value less than 0.50 ?g/ml (FEU) has a negative predicative value of 96 to 100% (95% CI)and 97 to 100% (95% CI) as an aid in the diagnosis of deep vein thrombosis (DVT) and pulmonary embolism when there is low or moderate pretest probability of PE or DVT. D-Dimer values are expressed in initial fibrinogen equivalent units (FEU)" The assay results should be used with other information, including the clinical context, in forming a diagnosis. Lab Interpretation Abnormal (test code = 37383-8) [facility]-[id number] 21:20:20 Test Item Value Reference Interpretation Comments Range D-DIMER (test code = See_Comment H [Autom ated 1831758032) message] The system which generated this result transmitted reference range : <0.50 ?g/mL (FEU). The reference range was not used to interpret this result as normal/abnormal . POP (test code = This test may be POP) used in conjunction with a clinical pretest probability (PTP) assessment model to exclude venous thromboembolism (VTE) in patients suspected of deep venous thrombosis (DVT) and pulmonary embolism (PE) A D-Dimer value less than 0.50 ?g/ml (FEU) has a negative predicative value of 96 to 100% (95% CI)and 97 to 100% (95% CI) as an aid in the diagnosis of deep vein thrombosis (DVT) and pulmonary embolism when there is low or moderate pretest probability of PE or DVT. D-Dimer values are expressed in initial fibrinogen equivalent units (FEU)" The assay results should be used with other information, including the clinical context, in forming a diagnosis. Lab Interpretation Abnormal (test code = 09860-3) [id number] 21:20:20 Test Item Value Reference Interpretation Comments Range D-DIMER (test code = See_Comment H [Autom ated 1742129858) message] The system which generated this result transmitted reference range : <0.50 ?g/mL (FEU). The reference range was not used to interpret this result as normal/abnormal . POP (test code = This test may be POP) used in conjunction with a clinical pretest probability (PTP) assessment model to exclude venous thromboembolism (VTE) in patients suspected of deep venous thrombosis (DVT) and pulmonary embolism (PE) A D-Dimer value less than 0.50 ?g/ml (FEU) has a negative predicative value of 96 to 100% (95% CI)and 97 to 100% (95% CI) as an aid in the diagnosis of deep vein thrombosis (DVT) and pulmonary embolism when there is low or moderate pretest probability of PE or DVT. D-Dimer values are expressed in initial fibrinogen equivalent units (FEU)" The assay results should be used with other information, including the clinical context, in forming a diagnosis. Lab Interpretation Abnormal (test code = 60042-8) [facility] WITH [id number] 21:10:21 Test Item Value Reference Range Interpretation Comments WBC (test code = See_Comment H [Automated 8890-2) message] The sy stem which generated this result transmitted reference range : 4.20 - 10.70 10*3/?L. The reference range was not used to interpret this result as normal/abnormal . RBC (test code = See_Comment L [Automated 9898) message] The sy stem which generated this result transmitted reference range : 4.26 - 5.52 10*6/?L. The reference range was not used to interpret this result as normal/abnormal . HGB (test code = 7.3 g/dL 12.2-16.4 L 718-7) HCT (test code = 22.6 % 38.4-49.3 L 4544-3) MCV (test code = 96.6 fL 81.7-95.6 H 787-2) MCH (test code = 31.2 pg 26.1-32.7 785-6) MCHC (test code = 32.3 g/dL 31.2-35.0 786-4) RDW-SD (test code = 51.2 fL 38.5-51.6 19507-9) RDW-CV (test code = 14.7 % 12.1-15.4 788-0) PLT (test code = See_Comment H [Automated 777-3) message] The sy stem which generated this result transmitted reference range : 150 - 328 10*3/ ?L. The reference r jalen was not used to interpret this result as normal/abnormal . MPV (test code = 9.2 fL 9.8-13.0 L 07488-8) NRBC/100 WBC (test See_Comment [Automat ed code = 3515243496) message] The system which generated this result transmitted reference range : 0.0 - 10.0 /100 WBCs. The refer ence range was not u sed to interpret th is result as normal/abnormal . NRBC x10^3 (test code See_Comment [Auto mated = 3469538682) message] The s ystem which generated this result transmitted reference range : 10*3/?L. The reference range was not used to interpret this result as normal/abnormal . GRAN MAT (NEUT) % 77.4 % (test code = 770-8) IMM GRAN % (test code 0.50 % = 1800457382) LYMPH % (test code = 14.1 % 736-9) MONO % (test code = 6.3 % 5905-5) EOS % (test code = 1.2 % 713-8) BASO % (test code = 0.5 % 706-2) GRAN MAT x10^3(ANC) 9.19 10*3/uL 1.99-6.95 H (test code = 1405535832) IMM GRAN x10^3 (test 0.06 10*3/uL 0.00-0.06 code = 9554450156) LYMPH x10^3 (test code 1.67 10*3/uL 1.09-3.23 = 731-0) MONO x10^3 (test code 0.75 10*3/uL 0.36-1.02 = 742-7) EOS x10^3 (test code = 0.14 10*3/uL 0.06-0.53 711-2) BASO x10^3 (test code 0.06 10*3/uL 0.01-0.09 = 704-7) Lab Interpretation Abnormal (test code = 63303-3) [facility] WITH [id number] 21:10:21 Test Item Value Reference Range Interpretation Comments WBC (test code = See_Comment H [Automated 6690-2) message] The sy stem which generated this result transmitted reference range : 4.20 - 10.70 10*3/?L. The reference range was not used to interpret this result as normal/abnormal . RBC (test code = See_Comment L [Automated 789-8) message] The sy stem which generated this result transmitted reference range : 4.26 - 5.52 10*6/?L. The reference range was not used to interpret this result as normal/abnormal . HGB (test code = 7.3 g/dL 12.2-16.4 L 718-7) HCT (test code = 22.6 % 38.4-49.3 L 4544-3) MCV (test code = 96.6 fL 81.7-95.6 H 787-2) MCH (test code = 31.2 pg 26.1-32.7 785-6) MCHC (test code = 32.3 g/dL 31.2-35.0 786-4) RDW-SD (test code = 51.2 fL 38.5-51.6 24261-4) RDW-CV (test code = 14.7 % 12.1-15.4 788-0) PLT (test code = See_Comment H [Automated 777-3) message] The sy stem which generated this result transmitted reference range : 150 - 328 10*3/ ?L. The reference r jalen was not used to interpret this result as normal/abnormal . MPV (test code = 9.2 fL 9.8-13.0 L 50470-2) NRBC/100 WBC (test See_Comment [Automat ed code = 3734291718) message] The system which generated this result transmitted reference range : 0.0 - 10.0 /100 WBCs. The refer ence range was not u sed to interpret th is result as normal/abnormal . NRBC x10^3 (test code See_Comment [Auto mated = 8458169596) message] The s ystem which generated this result transmitted reference range : 10*3/?L. The reference range was not used to interpret this result as normal/abnormal . GRAN MAT (NEUT) % 77.4 % (test code = 770-8) IMM GRAN % (test code 0.50 % = 4300310833) LYMPH % (test code = 14.1 % 736-9) MONO % (test code = 6.3 % 5905-5) EOS % (test code = 1.2 % 713-8) BASO % (test code = 0.5 % 706-2) GRAN MAT x10^3(ANC) 9.19 10*3/uL 1.99-6.95 H (test code = 6661759528) IMM GRAN x10^3 (test 0.06 10*3/uL 0.00-0.06 code = 0027294905) LYMPH x10^3 (test code 1.67 10*3/uL 1.09-3.23 = 731-0) MONO x10^3 (test code 0.75 10*3/uL 0.36-1.02 = 742-7) EOS x10^3 (test code = 0.14 10*3/uL 0.06-0.53 711-2) BASO x10^3 (test code 0.06 10*3/uL 0.01-0.09 = 704-7) Lab Interpretation Abnormal (test code = 60194-3) [facility]-REACTIVE [id number] 18:25:43 Test Item Value Reference Range Interpretation Comments CRP (test code = 3198587332) 1.6 mg/dL <0.8 H Lab Interpretation (test code = Abnormal 34485-2) [facility]-REACTIVE [id number] 18:25:43 Test Item Value Reference Range Interpretation Comments CRP (test code = 7261633630) 1.6 mg/dL <0.8 H Lab Interpretation (test code = Abnormal 43629-6) [facility] [id number] 18:25:43 Test Item Value Reference Range Interpretation Comments CRP (test code = 3366666393) 1.6 mg/dL <0.8 H Lab Interpretation (test code = Abnormal 64337-8) [facility] GLUCOSE (AUTOMATED)2021-03-25 18:08:08 Test Item Value Reference Range Interpretation Comments POCT GLU (test code = 0208814606) 136 mg/dL 70-110 H Lab Interpretation (test code = Abnormal 82629-2) [facility] GLUCOSE (AUTOMATED)2021-03-25 18:08:08 Test Item Value Reference Range Interpretation Comments POCT GLU (test code = 0438280637) 136 mg/dL 70-110 H Lab Interpretation (test code = Abnormal 23031-9) [facility] GLUCOSE (AUTOMATED)2021-03-25 14:38:25 Test Item Value Reference Range Interpretation Comments POCT GLU (test code = 8389259977) 133 mg/dL 70-110 H Lab Interpretation (test code = Abnormal 49109-5) [facility] GLUCOSE (AUTOMATED)2021-03-25 14:38:25 Test Item Value Reference Range Interpretation Comments POCT GLU (test code = 4361525514) 133 mg/dL 70-110 H Lab Interpretation (test code = Abnormal 85753-1) [facility], [id number] 03:28:13 Test Item Value Reference Range Interpretation Comments AMMONIA (test code = 7291087506) <9 9-33 L Lab Interpretation (test code = Abnormal 21741-2) [facility] [id number] 03:28:13 Test Item Value Reference Range Interpretation Comments AMMONIA (test code = 2151554010) <9 9-33 L Lab Interpretation (test code = Abnormal 20664-5) [facility] [id number] 03:28:13 Test Item Value Reference Range Interpretation Comments AMMONIA (test code = 7625930587) <9 9-33 L Lab Interpretation (test code = Abnormal 74059-1) [facility] [id number] 23:35:12 Test Item Value Reference Range Interpretation Comments FERRITIN (test code = 14.1 ng/mL 18.0-464.0 L 0052314688) POP (test code = POP) Biotin has been reported to cause a negative bias, interpret results relative to patient's use of biotin. Lab Interpretation (test Abnormal code = 85745-7) [facility] [id number] 23:35:12 Test Item Value Reference Range Interpretation Comments FERRITIN (test code = 14.1 ng/mL 18.0-464.0 L 6377286653) POP (test code = POP) Biotin has been reported to cause a negative bias, interpret results relative to patient's use of biotin. Lab Interpretation (test Abnormal code = 84196-0) [facility] [id number] 23:35:12 Test Item Value Reference Range Interpretation Comments FERRITIN (test code = 14.1 ng/mL 18.0-464.0 L 3072723391) POP (test code = POP) Biotin has been reported to cause a negative bias, interpret results relative to patient's use of biotin. Lab Interpretation (test Abnormal code = 41116-6) [facility] [id number] 23:31:09 Test Item Value Reference Range Interpretation Comments TSH (test code = See_Comment [Automated message] 5924020775) The system [employer] generated this result transmitted ref erence range: 0.45 - 4 .70 mIU/L. The refe rence range was not u sed to interpret this result as normal/abnor mal. Lab Interpretation (test Normal code = 78204-6) [facility] [id number] 23:31:09 Test Item Value Reference Range Interpretation Comments TSH (test code = See_Comment [Automated message] 2492344100) The system [employer] generated this result transmitted ref erence range: 0.45 - 4 .70 mIU/L. The refe rence range was not u sed to interpret this result as normal/abnor mal. Lab Interpretation (test Normal code = 32577-2) [facility] [id number] 23:31:09 Test Item Value Reference Range Interpretation Comments TSH (test code = See_Comment [Automated message] 6021899538) The system [employer] generated this result transmitted ref erence range: 0.45 - 4 .70 mIU/L. The refe rence range was not u sed to interpret this result as normal/abnor mal. Lab Interpretation (test Normal code = 27164-5) [facility] [id number] 23:17:01 Test Item Value Reference Range Interpretation Comments IRON (test code = 4080850938) 26 ug/dL 50-160 L TIBC (test code = 3496937659) 298 ug/dL 250-410 % FE SAT (test code = 2954204354) 9 % 20-50 L Lab Interpretation (test code = Abnormal 49399-0) [facility] [id number] 23:17:01 Test Item Value Reference Range Interpretation Comments IRON (test code = 9374699712) 26 ug/dL 50-160 L TIBC (test code = 5849030260) 298 ug/dL 250-410 % FE SAT (test code = 6095973883) 9 % 20-50 L Lab Interpretation (test code = Abnormal 84275-3) [facility] [id number] 23:17:01 Test Item Value Reference Range Interpretation Comments IRON (test code = 0699724610) 26 ug/dL 50-160 L TIBC (test code = 4215819138) 298 ug/dL 250-410 % FE SAT (test code = 0783376083) 9 % 20-50 L Lab Interpretation (test code = Abnormal 06869-7) [facility] [id number] 22:59:28 Test Item Value Reference Range Interpretation Comments ESR (test code = See_Comment H [Automated message] 8283512360) The system [employer] generated this result transmitted ref erence range: 0 - 10 m m/HR. The reference r jalen was not used to interpret this result as normal/abnor mal. Lab Interpretation (test Abnormal code = 78522-4) [facility] [id number] 22:59:28 Test Item Value Reference Range Interpretation Comments ESR (test code = See_Comment H [Automated message] 0518503109) The system [employer] generated this result transmitted ref erence range: 0 - 10 m m/HR. The reference r jalen was not used to interpret this result as normal/abnor mal. Lab Interpretation (test Abnormal code = 94901-3) [facility] [id number] 22:59:28 Test Item Value Reference Range Interpretation Comments ESR (test code = See_Comment H [Automated message] 7701805572) The system [employer] generated this result transmitted ref erence range: 0 - 10 m m/HR. The reference r jalen was not used to interpret this result as normal/abnor mal. Lab Interpretation (test Abnormal code = 28241-9) [facility] GLUCOSE (AUTOMATED)2021-03-24 21:54:52 Test Item Value Reference Range Interpretation Comments POCT GLU (test code = 9206771792) 95 mg/dL 70-110 Lab Interpretation (test code = Normal 24662-0) [facility] GLUCOSE (AUTOMATED)2021-03-24 21:54:52 Test Item Value Reference Range Interpretation Comments POCT GLU (test code = 9140100312) 95 mg/dL 70-110 Lab Interpretation (test code = Normal 86235-2) [facility] GLUCOSE (AUTOMATED)2021-03-24 17:37:33 Test Item Value Reference Range Interpretation Comments POCT GLU (test code = 8669357159) 97 mg/dL 70-110 Lab Interpretation (test code = Normal 25317-8) [facility] GLUCOSE (AUTOMATED)2021-03-24 17:37:33 Test Item Value Reference Range Interpretation Comments POCT GLU (test code = 3515368220) 97 mg/dL 70-110 Lab Interpretation (test code = Normal 88349-5) [facility] GLUCOSE (AUTOMATED)2021-03-24 13:48:11 Test Item Value Reference Range Interpretation Comments POCT GLU (test code = 9894886582) 96 mg/dL 70-110 Lab Interpretation (test code = Normal 34276-1) [facility] GLUCOSE (AUTOMATED)2021-03-24 13:48:11 Test Item Value Reference Range Interpretation Comments POCT GLU (test code = 5980569055) 96 mg/dL 70-110 Lab Interpretation (test code = Normal 01447-9) [facility] METABOLIC PANEL (NA, K, CL, CO2, GLUCOSE, BUN, CREATININE, CA)2021-03-24 10:53:08 Test Item Value Reference Range Interpretation Comments NA (test code = 136 mmol/L 135-145 0916156434) K (test code = 3.8 mmol/L 3.5-5.0 0665758045) CL (test code = 106 mmol/L 98-108 4717039936) CO2 TOTAL (test code = 22 mmol/L 23-31 L 9237956611) AGAP (test code = 2-16 2658084708) BUN (test code = 15 mg/dL 7-23 3132898640) GLUCOSE (test code = 71 mg/dL 70-110 0773585343) CREATININE (test code = 0.76 mg/dL 0.60-1.25 0091092618) CALCIUM (test code = 8.2 mg/dL 8.6-10.6 L 5649188649) eGFR (test code = mL/min/1.73m2 4144181346) POP (test code = POP) [employer] Glomerular Filtration Rate (GFR) and Staging of Kidney Disease* + --+ --+ ------+| GFR (mL/min/1.73 m2) ?| With Kidney Damage ?| ?Without Kidney Damage+ --------+ --------+ +| ?>90 ?| ?Stage one ?| ? Normal ?+ ---+ ---+ -------+| ?60-89 ?| ?Stage two ?| ? Decreased GFR ? + --+ --+ ------+| ?30-59 ?| ?Stage three ?| ? Stage three ? + --+ --+ ------+| ?15-29 ?| ?Stage four ? | ? Stage four ?+ ---+ ---+ -------+| ?<15 (or dialysis) ? ?| ?Stage five ? | ? Stage five ?+ ---+ ---+ -------+ *Each stage assumes the associated GFR level has been in effect for at least three months. ?Stages 1 to 5, with or without kidney disease, indicate chronic kidney disease. Notes: Determination of stages one and two (with eGFR >59mL/min/1.73 m2) requires estimation of kidney damage for at least three months as defined by structural or functional abnormalities of the kidney, manifested by either:Pathological abnormalities or Markers of kidney damage (including abnormalities in the composition of the blood or urine or abnormalities in imaging tests). Lab Interpretation Abnormal (test code = 28180-1) [facility] METABOLIC PANEL (NA, K, CL, CO2, GLUCOSE, BUN, CREATININE, CA)2021-03-24 10:53:08 Test Item Value Reference Range Interpretation Comments NA (test code = 136 mmol/L 135-145 0932227016) K (test code = 3.8 mmol/L 3.5-5.0 1209262705) CL (test code = 106 mmol/L 98-108 8473658180) CO2 TOTAL (test code = 22 mmol/L 23-31 L 8930013081) AGAP (test code = 2-16 7016690648) BUN (test code = 15 mg/dL 7-23 9023202398) GLUCOSE (test code = 71 mg/dL 70-110 1287658470) CREATININE (test code = 0.76 mg/dL 0.60-1.25 9574327578) CALCIUM (test code = 8.2 mg/dL 8.6-10.6 L 7562361222) eGFR (test code = mL/min/1.73m2 3987815264) POP (test code = POP) Association of Glomerular Filtration Rate (GFR) and Staging of Kidney Disease* + --+ --+ ------+| GFR (mL/min/1.73 m2) ?| With Kidney Damage ?| ?Without Kidney Damage+ --------+ --------+ +| ?>90 ?| ?Stage one ?| ? Normal ?+ ---+ ---+ -------+| ?60-89 ?| ?Stage two ?| ? Decreased GFR ? + --+ --+ ------+| ?30-59 ?| ?Stage three ?| ? Stage three ? + --+ --+ ------+| ?15-29 ?| ?Stage four ? | ? Stage four ?+ ---+ ---+ -------+| ?<15 (or dialysis) ? ?| ?Stage five ? | ? Stage five ?+ ---+ ---+ -------+ *Each stage assumes the associated GFR level has been in effect for at least three months. ?Stages 1 to 5, with or without kidney disease, indicate chronic kidney disease. Notes: Determination of stages one and two (with eGFR >59mL/min/1.73 m2) requires estimation of kidney damage for at least three months as defined by structural or functional abnormalities of the kidney, manifested by either:Pathological abnormalities or Markers of kidney damage (including abnormalities in the composition of the blood or urine or abnormalities in imaging tests). Lab Interpretation Abnormal (test code = 85078-9) [facility] WITH [id number] 10:27:28 Test Item Value Reference Range Interpretation Comments WBC (test code = See_Comment [Automated 6690-2) message] The sy stem which generated this result transmitted reference range : 4.20 - 10.70 10*3/?L. The reference range was not used to interpret this result as normal/abnormal . RBC (test code = See_Comment L [Automated 789-8) message] The sy stem which generated this result transmitted reference range : 4.26 - 5.52 10*6/?L. The reference range was not used to interpret this result as normal/abnormal . HGB (test code = 7.3 g/dL 12.2-16.4 L 718-7) HCT (test code = 21.4 % 38.4-49.3 L 4544-3) MCV (test code = 92.2 fL 81.7-95.6 787-2) MCH (test code = 31.5 pg 26.1-32.7 785-6) MCHC (test code = 34.1 g/dL 31.2-35.0 786-4) RDW-SD (test code = 46.9 fL 38.5-51.6 68126-1) RDW-CV (test code = 14.5 % 12.1-15.4 788-0) PLT (test code = See_Comment H [Automated 777-3) message] The sy stem which generated this result transmitted reference range : 150 - 328 10*3/ ?L. The reference r jalen was not used to interpret this result as normal/abnormal . MPV (test code = 9.2 fL 9.8-13.0 L 65733-9) NRBC/100 WBC (test See_Comment [Automat ed code = 2763395013) message] The system which generated this result transmitted reference range : 0.0 - 10.0 /100 WBCs. The refer ence range was not u sed to interpret th is result as normal/abnormal . NRBC x10^3 (test code See_Comment [Auto mated = 9082266268) message] The s ystem which generated this result transmitted reference range : 10*3/?L. The reference range was not used to interpret this result as normal/abnormal . GRAN MAT (NEUT) % 72.2 % (test code = 770-8) IMM GRAN % (test code 0.60 % = 4021712867) LYMPH % (test code = 19.2 % 736-9) MONO % (test code = 6.3 % 5905-5) EOS % (test code = 1.3 % 713-8) BASO % (test code = 0.4 % 706-2) GRAN MAT x10^3(ANC) 7.70 10*3/uL 1.99-6.95 H (test code = 9233539953) IMM GRAN x10^3 (test 0.06 10*3/uL 0.00-0.06 code = 4851217244) LYMPH x10^3 (test code 2.04 10*3/uL 1.09-3.23 = 731-0) MONO x10^3 (test code 0.67 10*3/uL 0.36-1.02 = 742-7) EOS x10^3 (test code = 0.14 10*3/uL 0.06-0.53 711-2) BASO x10^3 (test code 0.04 10*3/uL 0.01-0.09 = 704-7) Lab Interpretation Abnormal (test code = 27726-3) [facility] WITH [id number] 10:27:28 Test Item Value Reference Range Interpretation Comments WBC (test code = See_Comment [Automated 9390-2) message] The sy stem which generated this result transmitted reference range : 4.20 - 10.70 10*3/?L. The reference range was not used to interpret this result as normal/abnormal . RBC (test code = See_Comment L [Automated 789-8) message] The sy stem which generated this result transmitted reference range : 4.26 - 5.52 10*6/?L. The reference range was not used to interpret this result as normal/abnormal . HGB (test code = 7.3 g/dL 12.2-16.4 L 718-7) HCT (test code = 21.4 % 38.4-49.3 L 4544-3) MCV (test code = 92.2 fL 81.7-95.6 787-2) MCH (test code = 31.5 pg 26.1-32.7 785-6) MCHC (test code = 34.1 g/dL 31.2-35.0 786-4) RDW-SD (test code = 46.9 fL 38.5-51.6 56580-2) RDW-CV (test code = 14.5 % 12.1-15.4 788-0) PLT (test code = See_Comment H [Automated 777-3) message] The sy stem which generated this result transmitted reference range : 150 - 328 10*3/ ?L. The reference r jalen was not used to interpret this result as normal/abnormal . MPV (test code = 9.2 fL 9.8-13.0 L 37544-0) NRBC/100 WBC (test See_Comment [Automat ed code = 5433368476) message] The system which generated this result transmitted reference range : 0.0 - 10.0 /100 WBCs. The refer ence range was not u sed to interpret th is result as normal/abnormal . NRBC x10^3 (test code See_Comment [Auto mated = 2119133462) message] The s ystem which generated this result transmitted reference range : 10*3/?L. The reference range was not used to interpret this result as normal/abnormal . GRAN MAT (NEUT) % 72.2 % (test code = 770-8) IMM GRAN % (test code 0.60 % = 4029481873) LYMPH % (test code = 19.2 % 736-9) MONO % (test code = 6.3 % 5905-5) EOS % (test code = 1.3 % 713-8) BASO % (test code = 0.4 % 706-2) GRAN MAT x10^3(ANC) 7.70 10*3/uL 1.99-6.95 H (test code = 7757797318) IMM GRAN x10^3 (test 0.06 10*3/uL 0.00-0.06 code = 1929878830) LYMPH x10^3 (test code 2.04 10*3/uL 1.09-3.23 = 731-0) MONO x10^3 (test code 0.67 10*3/uL 0.36-1.02 = 742-7) EOS x10^3 (test code = 0.14 10*3/uL 0.06-0.53 711-2) BASO x10^3 (test code 0.04 10*3/uL 0.01-0.09 = 704-7) Lab Interpretation Abnormal (test code = 70082-5) [facility] GLUCOSE (AUTOMATED)2021-03-24 02:24:46 Test Item Value Reference Range Interpretation Comments POCT GLU (test code = 1145207137) 90 mg/dL 70-110 Lab Interpretation (test code = Normal 97197-6) [facility] GLUCOSE (AUTOMATED)2021-03-24 02:24:46 Test Item Value Reference Range Interpretation Comments POCT GLU (test code = 5074082666) 90 mg/dL 70-110 Lab Interpretation (test code = Normal 36243-5) [facility] GLUCOSE (AUTOMATED)2021-03-23 23:02:24 Test Item Value Reference Range Interpretation Comments POCT GLU (test code = 2771936143) 101 mg/dL 70-110 Lab Interpretation (test code = Normal 36494-9) [facility] GLUCOSE (AUTOMATED)2021-03-23 23:02:24 Test Item Value Reference Range Interpretation Comments POCT GLU (test code = 8628914475) 101 mg/dL 70-110 Lab Interpretation (test code = Normal 12768-9) [facility] GLUCOSE (AUTOMATED)2021-03-23 17:40:20 Test Item Value Reference Range Interpretation Comments POCT GLU (test code = 8041088432) 99 mg/dL 70-110 Lab Interpretation (test code = Normal 28996-0) [facility] GLUCOSE (AUTOMATED)2021-03-23 17:40:20 Test Item Value Reference Range Interpretation Comments POCT GLU (test code = 4465998448) 99 mg/dL 70-110 [facility] Interpret[facility] (test code = [facility] 59096-1[facility] 14:18:19 Test Item Value Reference Range Interpretation Comments POCT GLU (test code = 7129577166) 100 mg/dL 70-110 Lab Interpretation (test code = Normal 63690-5) [facility] GLUCOSE (AUTOMATED)2021-03-23 14:18:19 Test Item Value Reference Range Interpretation Comments POCT GLU (test code = 7430507822) 100 mg/dL 70-110 Lab Interpretation (test code = Normal 62313-2) [facility] GLUCOSE (AUTOMATED)2021-03-23 02:11:27 Test Item Value Reference Range Interpretation Comments POCT GLU (test code = 5220389095) 129 mg/dL 70-110 H Lab Interpretation (test code = Abnormal 42642-5) [facility] GLUCOSE (AUTOMATED)2021-03-23 02:11:27 Test Item Value Reference Range Interpretation Comments POCT GLU (test code = 7511335680) 129 mg/dL 70-110 H Lab Interpretation (test code = Abnormal 53814-0) [facility] GLUCOSE (AUTOMATED)2021-03-22 22:25:04 Test Item Value Reference Range Interpretation Comments POCT GLU (test code = 8201759648) 135 mg/dL 70-110 H Lab Interpretation (test code = Abnormal 93506-3) [facility] GLUCOSE (AUTOMATED)2021-03-22 22:25:04 Test Item Value Reference Range Interpretation Comments POCT GLU (test code = 6886671329) 135 mg/dL 70-110 H Lab Interpretation (test code = Abnormal 57703-4) [facility] GLUCOSE (AUTOMATED)2021-03-22 17:16:14 Test Item Value Reference Range Interpretation Comments POCT GLU (test code = 0161011094) 134 mg/dL 70-110 H Lab Interpretation (test code = Abnormal 69973-5) [facility] GLUCOSE (AUTOMATED)2021-03-22 17:16:14 Test Item Value Reference Range Interpretation Comments POCT GLU (test code = 2439096236) 134 mg/dL 70-110 H Lab Interpretation (test code = Abnormal 04658-9) [facility] GLUCOSE (AUTOMATED)2021-03-22 13:33:42 Test Item Value Reference Range Interpretation Comments POCT GLU (test code = 1858155848) 129 mg/dL 70-110 H Lab Interpretation (test code = Abnormal 21782-2) [facility] GLUCOSE (AUTOMATED)2021-03-22 13:33:42 Test Item Value Reference Range Interpretation Comments POCT GLU (test code = 8965784455) 129 mg/dL 70-110 H Lab Interpretation (test code = Abnormal 46470-5) [facility] ASPIRIN [id number] 10:35:06 Test Item Value Reference Range Interpretation Comments [employer] Aspirin See Comment ARU Test (test code = 1808086904) POP (test code = < 550 ARU - Evidence of POP) platelet dysfunction due to aspirin>= 550 ARU - No evidence of aspirin-induced platelet dysfunction The performance of [employer] Aspirin test on patients with acquired non-drug induced platelet abnormalities is not known. Patients who have been treated with Glycoprotein IIb/IIIa inhibitor drugs should not be tested until platelet function has recovered. The recovery period after drug administration is discontinued is approximately 14 days for abciximab (ReoPro) and up to 48 hours for eptifibatide (Integrilin) and tirofiban (Aggrastat). The time to recovery of platelet functions varies among individuals and is longer for patients with renal dysfunction. Patient with low platelet counts may not give consistent results. Results should be interpreted in conjunction with other laboratory and clinical data available to the clinician. [facility] [id number] 10:35:06 Test Item Value Reference Range Interpretation Comments [employer] Aspirin See Comment ARU Test (test code = 4598127552) PPO (test code = < 550 ARU - Evidence of POP) platelet dysfunction due to aspirin>= 550 ARU - No evidence of aspirin-induced platelet dysfunction The performance of [employer] Aspirin test on patients with acquired non-drug induced platelet abnormalities is not known. Patients who have been treated with Glycoprotein IIb/IIIa inhibitor drugs should not be tested until platelet function has recovered. The recovery period after drug administration is discontinued is approximately 14 days for abciximab (ReoPro) and up to 48 hours for eptifibatide (Integrilin) and tirofiban (Aggrastat). The time to recovery of platelet functions varies among individuals and is longer for patients with renal dysfunction. Patient with low platelet counts may not give consistent results. Results should be interpreted in conjunction with other laboratory and clinical data available to the clinician. [facility] ASPIRIN [id number] 10:35:06 Test Item Value Reference Range Interpretation Comments [employer] Aspirin See Comment ARU Test (test code = 9501848746) POP (test code = < 550 ARU - Evidence of POP) platelet dysfunction due to aspirin>= 550 ARU - No evidence of aspirin-induced platelet dysfunction The performance of [employer] Aspirin test on patients with acquired non-drug induced platelet abnormalities is not known. Patients who have been treated with Glycoprotein IIb/IIIa inhibitor drugs should not be tested until platelet function has recovered. The recovery period after drug administration is discontinued is approximately 14 days for abciximab (ReoPro) and up to 48 hours for eptifibatide (Integrilin) and tirofiban (Aggrastat). The time to recovery of platelet functions varies among individuals and is longer for patients with renal dysfunction. Patient with low platelet counts may not give consistent results. Results should be interpreted in conjunction with other laboratory and clinical data available to the clinician. [facility] PRUTEST (P2Y12)2021-03-22 10:28:35 Test Item Value Reference Range Interpretation Comments [employer] PRUTest See_Comment L [Automate d (P2Y12) (test code message] The = 7030030293) system which generated this result transmitted reference range : 182 - 335 PRU. The reference range was not used to interpret this result as normal/abnormal . POP (test code = Off-drug PRU POP) reference range is 180 - 376. Values less than 180 PRU suggest evidence of a P2Y12 inhibitor effect, which may be explained by P2Y12 receptor medications. ? ? P2Y12 Reaction Units (PRU) indicates the amount of ADP-mediated aggregation specific to the platelet P2Y12 receptor; a LOW PRU indicates a higher response to anti-platelet medication while a HIGH PRU indicates lower platelet inhibitive effect. Patients who have been treated with Glycoprotein IIb/IIIa inhibitor drugs should not be tested with the PRUtest until platelet function has recovered. The recovery period after drug administration is discontinued is approximately 14 days to abciximab (ReoPro) and up to 48 hours for eptifibatide (Integrilin) and tirofiban (Aggrastat). The time to recovery of platelet functions varies among individuals and is not affected by renal dysfunction. Patient with low platelet counts may not give consistent results. Results should be interpreted in conjunction with other laboratory and clinical data available to the clinician. Lab Interpretation Abnormal (test code = 59049-7) [facility] 10:28:35 Test Item Value Reference Range Interpretation Comments [employer] PRUTest See_Comment L [Automate d (P2Y12) (test code message] The = [id number]) system which generated this result transmitted reference range : 182 - 335 PRU. The reference range was not used to interpret this result as normal/abnormal . POP (test code = Off-drug PRU POP) reference range is 180 - 376. Values less than 180 PRU suggest evidence of a P2Y12 inhibitor effect, which may be explained by P2Y12 receptor medications. ? ? P2Y12 Reaction Units (PRU) indicates the amount of ADP-mediated aggregation specific to the platelet P2Y12 receptor; a LOW PRU indicates a higher response to anti-platelet medication while a HIGH PRU indicates lower platelet inhibitive effect. Patients who have been treated with Glycoprotein IIb/IIIa inhibitor drugs should not be tested with the PRUtest until platelet function has recovered. The recovery period after drug administration is discontinued is approximately 14 days to abciximab (ReoPro) and up to 48 hours for eptifibatide (Integrilin) and tirofiban (Aggrastat). The time to recovery of platelet functions varies among individuals and is not affected by renal dysfunction. Patient with low platelet counts may not give consistent results. Results should be interpreted in conjunction with other laboratory and clinical data available to the clinician. Lab Interpretation Abnormal (test code = 72702-1) [facility] 10:28:35 Test Item Value Reference Range Interpretation Comments [facility] PRUTest See_Comment L [Automate d (P2Y12) (test code message] The = [id number]) system which generated this result transmitted reference range : 182 - 335 PRU. The reference range was not used to interpret this result as normal/abnormal . POP (test code = Off-drug PRU POP) reference range is 180 - 376. Values less than 180 PRU suggest evidence of a P2Y12 inhibitor effect, which may be explained by P2Y12 receptor medications. ? ? P2Y12 Reaction Units (PRU) indicates the amount of ADP-mediated aggregation specific to the platelet P2Y12 receptor; a LOW PRU indicates a higher response to anti-platelet medication while a HIGH PRU indicates lower platelet inhibitive effect. Patients who have been treated with Glycoprotein IIb/IIIa inhibitor drugs should not be tested with the PRUtest until platelet function has recovered. The recovery period after drug administration is discontinued is approximately 14 days to abciximab (ReoPro) and up to 48 hours for eptifibatide (Integrilin) and tirofiban (Aggrastat). The time to recovery of platelet functions varies among individuals and is not affected by renal dysfunction. Patient with low platelet counts may not give consistent results. Results should be interpreted in conjunction with other laboratory and clinical data available to the clinician. Lab Interpretation Abnormal (test code = 87795-2) [facility]NA, K, CL, CO2, GLUCOSE, BUN, CREATININE, CA)2021-03-22 10:08:19 Test Item Value Reference Range Interpretation Comments NA (test code = 132 mmol/L 135-145 L 7973005333) K (test code = 4.6 mmol/L 3.5-5.0 2177367585) CL (test code = 104 mmol/L 98-108 4408234758) CO2 TOTAL (test code = 22 mmol/L 23-31 L 9971073001) AGAP (test code = 2-16 0874441495) BUN (test code = 19 mg/dL 7-23 3320393512) GLUCOSE (test code = 107 mg/dL 70-110 4841845613) CREATININE (test code = 0.84 mg/dL 0.60-1.25 6640736431) CALCIUM (test code = 8.9 mg/dL 8.6-10.6 8572715819) eGFR (test code = mL/min/1.73m2 7051404111) POP (test code = POP) Association of Glomerular Filtration Rate (GFR) and Staging of Kidney Disease* + --+ --+ ------+| GFR (mL/min/1.73 m2) ?| With Kidney Damage ?| ?Without Kidney Damage+ --------+ --------+ +| ?>90 ?| ?Stage one ?| ? Normal ?+ ---+ ---+ -------+| ?60-89 ?| ?Stage two ?| ? Decreased GFR ? + --+ --+ ------+| ?30-59 ?| ?Stage three ?| ? Stage three ? + --+ --+ ------+| ?15-29 ?| ?Stage four ? | ? Stage four ?+ ---+ ---+ -------+| ?<15 (or dialysis) ? ?| ?Stage five ? | ? Stage five ?+ ---+ ---+ -------+ *Each stage assumes the associated GFR level has been in effect for at least three months. ?Stages 1 to 5, with or without kidney disease, indicate chronic kidney disease. Notes: Determination of stages one and two (with eGFR >59mL/min/1.73 m2) requires estimation of kidney damage for at least three months as defined by structural or functional abnormalities of the kidney, manifested by either:Pathological abnormalities or Markers of kidney damage (including abnormalities in the composition of the blood or urine or abnormalities in imaging tests). Lab Interpretation Abnormal (test code = 57792-9) [facility] METABOLIC PANEL (NA, K, CL, CO2, GLUCOSE, BUN, CREATININE, CA)2021-03-22 10:08:19 Test Item Value Reference Range Interpretation Comments NA (test code = 132 mmol/L 135-145 L 5542742293) K (test code = 4.6 mmol/L 3.5-5.0 5842492649) CL (test code = 104 mmol/L 98-108 3213529727) CO2 TOTAL (test code = 22 mmol/L 23-31 L 8967199728) AGAP (test code = 2-16 2263753683) BUN (test code = 19 mg/dL 7-23 9746280697) GLUCOSE (test code = 107 mg/dL 70-110 0079556677) CREATININE (test code = 0.84 mg/dL 0.60-1.25 8661178595) CALCIUM (test code = 8.9 mg/dL 8.6-10.6 8234984524) eGFR (test code = mL/min/1.73m2 9591203581) POP (test code = POP) Association of Glomerular Filtration Rate (GFR) and Staging of Kidney Disease* + --+ --+ ------+| GFR (mL/min/1.73 m2) ?| With Kidney Damage ?| ?Without Kidney Damage+ --------+ --------+ +| ?>90 ?| ?Stage one ?| ? Normal ?+ ---+ ---+ -------+| ?60-89 ?| ?Stage two ?| ? Decreased GFR ? + --+ --+ ------+| ?30-59 ?| ?Stage three ?| ? Stage three ? + --+ --+ ------+| ?15-29 ?| ?Stage four ? | ? Stage four ?+ ---+ ---+ -------+| ?<15 (or dialysis) ? ?| ?Stage five ? | ? Stage five ?+ ---+ ---+ -------+ *Each stage assumes the associated GFR level has been in effect for at least three months. ?Stages 1 to 5, with or without kidney disease, indicate chronic kidney disease. Notes: Determination of stages one and two (with eGFR >59mL/min/1.73 m2) requires estimation of kidney damage for at least three months as defined by structural or functional abnormalities of the kidney, manifested by either:Pathological abnormalities or Markers of kidney damage (including abnormalities in the composition of the blood or urine or abnormalities in imaging tests). Lab Interpretation Abnormal (test code = 79713-8) [facility] GLUCOSE (AUTOMATED)2021-03-22 02:18:47 Test Item Value Reference Range Interpretation Comments POCT GLU (test code = 3694115847) 221 mg/dL 70-110 H Lab Interpretation (test code = Abnormal 75450-2) [facility] GLUCOSE (AUTOMATED)2021-03-22 02:18:47 Test Item Value Reference Range Interpretation Comments POCT GLU (test code = 1680134784) 221 mg/dL 70-110 H Lab Interpretation (test code = Abnormal 52660-3) [facility] GLUCOSE (AUTOMATED)2021-03-21 22:41:30 Test Item Value Reference Range Interpretation Comments POCT GLU (test code = 9393165922) 92 mg/dL 70-110 Lab Interpretation (test code = Normal 45212-6) [facility] 22:41:30 Test Item Value Reference Range Interpretation Comments POCT GLU (test code = 2926069064) 92 mg/dL 70-110 Lab Interpretation (test code = Normal 45655-4) [facility] CULTURE [id number] 18:01:28 Test Item Value Reference Range Interpretation Comments Blood Culture-Aerobic No organisms No growth Previo us (test code = 67470-4) isolated prelim inary verified result was Culture In Progress on 03/16/2021 at 15 01 CSTPrevious preliminary verified result was No growth a t 24 hours on 03/17/2021 at 12 01 CSTPrevious preliminary verified result was No growth a t 48 hours on 03/18/2021 at 12 02 CSTPrevious preliminary verified result was No growth a t 72 hours on 03/19/2021 at 12 01 [employer] Blood No organisms No growth Previous Culture-Anaerobic isolated preliminar y (test code = 67075-1) verifi ed result was Culture In Progress on 03/16/2021 at 15 01 CSTPrevious preliminary verified result was No growth a t 24 hours on 03/17/2021 at 12 01 CSTPrevious preliminary verified result was No growth a t 48 hours on 03/18/2021 at 12 02 CSTPrevious preliminary verified result was No growth a t 72 hours on 03/19/2021 at 12 01 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 Normal (test code = 46904-4) [facility] CULTURE [id number] 18:01:28 Test Item Value Reference Range Interpretation Comments Blood Culture-Aerobic No organisms No growth Previo us (test code = 45543-0) isolated prelim inary verified result was Culture In Progress on 03/16/2021 at 15 01 CSTPrevious preliminary verified result was No growth a t 24 hours on 03/17/2021 at 12 01 CSTPrevious preliminary verified result was No growth a t 48 hours on 03/18/2021 at 12 02 CSTPrevious preliminary verified result was No growth a t 72 hours on 03/19/2021 at 12 01 [employer] Blood No organisms No growth Previous Culture-Anaerobic isolated preliminar y (test code = 46400-0) verifi ed result was Culture In Progress on 03/16/2021 at 15 01 CSTPrevious preliminary verified result was No growth a t 24 hours on 03/17/2021 at 12 01 CSTPrevious preliminary verified result was No growth a t 48 hours on 03/18/2021 at 12 02 CSTPrevious preliminary verified result was No growth a t 72 hours on 03/19/2021 at 12 01 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 Normal (test code = 13772-8) [facility] CULTURE [id number] 18:01:28 Test Item Value Reference Range Interpretation Comments Blood Culture-Aerobic No organisms No growth Previo us (test code = 23422-7) isolated prelim inary verified result was Culture In Progress on 03/16/2021 at 15 01 CSTPrevious preliminary verified result was No growth a t 24 hours on 03/17/2021 at 12 01 CSTPrevious preliminary verified result was No growth a t 48 hours on 03/18/2021 at 12 02 CSTPrevious preliminary verified result was No growth a t 72 hours on 03/19/2021 at 12 01 [employer] Blood No organisms No growth Previous Culture-Anaerobic isolated preliminar y (test code = 95291-2) verifi ed result was Culture In Progress on 03/16/2021 at 15 01 CSTPrevious preliminary verified result was No growth a t 24 hours on 03/17/2021 at 12 01 CSTPrevious preliminary verified result was No growth a t 48 hours on 03/18/2021 at 12 02 CSTPrevious preliminary verified result was No growth a t 72 hours on 03/19/2021 at 12 01 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 Normal (test code = 78638-5) [facility] CULTURE [id number] 18:01:28 Test Item Value Reference Range Interpretation Comments Blood Culture-Aerobic No organisms No growth Previo us (test code = 35512-7) isolated prelim inary verified result was Culture In Progress on 03/16/2021 at 15 01 CSTPrevious preliminary verified result was No growth a t 24 hours on 03/17/2021 at 12 01 CSTPrevious preliminary verified result was No growth a t 48 hours on 03/18/2021 at 12 02 CSTPrevious preliminary verified result was No growth a t 72 hours on 03/19/2021 at 12 01 [employer] Blood No organisms No growth Previous Culture-Anaerobic isolated preliminar y (test code = 17642-6) verifi ed result was Culture In Progress on 03/16/2021 at 15 01 CSTPrevious preliminary verified result was No growth a t 24 hours on 03/17/2021 at 12 01 CSTPrevious preliminary verified result was No growth a t 48 hours on 03/18/2021 at 12 02 CSTPrevious preliminary verified result was No growth a t 72 hours on 03/19/2021 at 12 01 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 Normal (test code = 77337-2) [facility] GLUCOSE (AUTOMATED)2021-03-21 17:27:07 Test Item Value Reference Range Interpretation Comments POCT GLU (test code = 6474584995) 280 mg/dL 70-110 H Lab Interpretation (test code = Abnormal 76462-4) [facility] GLUCOSE (AUTOMATED)2021-03-21 17:27:07 Test Item Value Reference Range Interpretation Comments POCT GLU (test code = 0989633822) 280 mg/dL 70-110 H Lab Interpretation (test code = Abnormal 66621-5) [facility] GLUCOSE (AUTOMATED)2021-03-21 13:31:44 Test Item Value Reference Range Interpretation Comments POCT GLU (test code = 1395436324) 135 mg/dL 70-110 H Lab Interpretation (test code = Abnormal 74793-0) [facility] GLUCOSE (AUTOMATED)2021-03-21 13:31:44 Test Item Value Reference Range Interpretation Comments POCT GLU (test code = 7030124054) 135 mg/dL 70-110 H Lab Interpretation (test code = Abnormal 59084-7) [facility] METABOLIC PANEL (NA, K, CL, CO2, GLUCOSE, BUN, CREATININE, CA)2021-03-21 11:24:38 Test Item Value Reference Range Interpretation Comments NA (test code = 133 mmol/L 135-145 L 1766993594) K (test code = 4.7 mmol/L 3.5-5.0 0111414415) CL (test code = 105 mmol/L 98-108 6539122401) CO2 TOTAL (test code = 22 mmol/L 23-31 L 5099740727) AGAP (test code = 2-16 7163360982) BUN (test code = 28 mg/dL 7-23 H 7954554447) GLUCOSE (test code = 137 mg/dL 70-110 H 6421666301) CREATININE (test code = 0.76 mg/dL 0.60-1.25 4707086410) CALCIUM (test code = 8.5 mg/dL 8.6-10.6 L 9121974719) eGFR (test code = mL/min/1.73m2 4706455008) POP (test code = POP) Association of Glomerular Filtration Rate (GFR) and Staging of Kidney Disease* + --+ --+ ------+| GFR (mL/min/1.73 m2) ?| With Kidney Damage ?| ?Without Kidney Damage+ --------+ --------+ +| ?>90 ?| ?Stage one ?| ? Normal ?+ ---+ ---+ -------+| ?60-89 ?| ?Stage two ?| ? Decreased GFR ? + --+ --+ ------+| ?30-59 ?| ?Stage three ?| ? Stage three ? + --+ --+ ------+| ?15-29 ?| ?Stage four ? | ? Stage four ?+ ---+ ---+ -------+| ?<15 (or dialysis) ? ?| ?Stage five ? | ? Stage five ?+ ---+ ---+ -------+ *Each stage assumes the associated GFR level has been in effect for at least three months. ?Stages 1 to 5, with or without kidney disease, indicate chronic kidney disease. Notes: Determination of stages one and two (with eGFR >59mL/min/1.73 m2) requires estimation of kidney damage for at least three months as defined by structural or functional abnormalities of the kidney, manifested by either:Pathological abnormalities or Markers of kidney damage (including abnormalities in the composition of the blood or urine or abnormalities in imaging tests). Lab Interpretation Abnormal (test code = 11336-3) [facility] METABOLIC PANEL (NA, K, CL, CO2, GLUCOSE, BUN, CREATININE, CA)2021-03-21 11:24:38 Test Item Value Reference Range Interpretation Comments NA (test code = 133 mmol/L 135-145 L 8897798032) K (test code = 4.7 mmol/L 3.5-5.0 8883444069) CL (test code = 105 mmol/L 98-108 3736853716) CO2 TOTAL (test code = 22 mmol/L 23-31 L 6973444348) AGAP (test code = 2-16 3688755306) BUN (test code = 28 mg/dL 7-23 H 9980063636) GLUCOSE (test code = 137 mg/dL 70-110 H 4364188878) CREATININE (test code = 0.76 mg/dL 0.60-1.25 6266102034) CALCIUM (test code = 8.5 mg/dL 8.6-10.6 L 1403823584) eGFR (test code = mL/min/1.73m2 1159089366) POP (test code = POP) Association of Glomerular Filtration Rate (GFR) and Staging of Kidney Disease* + --+ --+ ------+| GFR (mL/min/1.73 m2) ?| With Kidney Damage ?| ?Without Kidney Damage+ --------+ --------+ +| ?>90 ?| ?Stage one ?| ? Normal ?+ ---+ ---+ -------+| ?60-89 ?| ?Stage two ?| ? Decreased GFR ? + --+ --+ ------+| ?30-59 ?| ?Stage three ?| ? Stage three ? + --+ --+ ------+| ?15-29 ?| ?Stage four ? | ? Stage four ?+ ---+ ---+ -------+| ?<15 (or dialysis) ? ?| ?Stage five ? | ? Stage five ?+ ---+ ---+ -------+ *Each stage assumes the associated GFR level has been in effect for at least three months. ?Stages 1 to 5, with or without kidney disease, indicate chronic kidney disease. Notes: Determination of stages one and two (with eGFR >59mL/min/1.73 m2) requires estimation of kidney damage for at least three months as defined by structural or functional abnormalities of the kidney, manifested by either:Pathological abnormalities or Markers of kidney damage (including abnormalities in the composition of the blood or urine or abnormalities in imaging tests). Lab Interpretation Abnormal (test code = 14342-9) [facility] WITH [id number] 11:01:33 Test Item Value Reference Range Interpretation Comments WBC (test code = See_Comment H [Automated 6690-2) message] The system which generated this result transmit qing reference range : 4.20 - 10.70 10*3/?L. The reference range was not used to interpret this result as normal/abnormal . RBC (test code = See_Comment L [Automated 789-8) message] The system which generated this result transmit qing reference range : 4.26 - 5.52 10*6/?L. The reference range was not used to interpret this result as normal/abnormal . HGB (test code = 8.4 g/dL 12.2-16.4 L 718-7) HCT (test code = 25.1 % 38.4-49.3 L 4544-3) MCV (test code = 91.9 fL 81.7-95.6 787-2) MCH (test code = 30.8 pg 26.1-32.7 785-6) MCHC (test code = 33.5 g/dL 31.2-35.0 786-4) RDW-SD (test code = 45.6 fL 38.5-51.6 06449-6) RDW-CV (test code = 13.6 % 12.1-15.4 788-0) PLT (test code = See_Comment H [Automated 777-3) message] The system which generated this result transmit qing reference range : 150 - 328 10*3/ ?L. The reference range was not u sed to interpret th is result as normal/abnormal . MPV (test code = 9.0 fL 9.8-13.0 L 36940-9) NRBC/100 WBC (test See_Comment [Automat ed code = 8074528060) message] The system which generated this result transmit qing reference range : 0.0 - 10.0 /100 WBCs. The reference range was not used to interpret this result as normal/abnormal . NRBC x10^3 (test code <0.01 See_Comment [Auto mated = 3108834408) message] The system which generated this result transmit qing reference range : 10*3/?L. The reference range was not used to interpret this result as normal/abnormal . GRAN MAT (NEUT) % 80.4 % (test code = 770-8) IMM GRAN % (test code 0.60 % = 6599071308) LYMPH % (test code = 11.4 % 736-9) MONO % (test code = 6.1 % 5905-5) EOS % (test code = 1.1 % 713-8) BASO % (test code = 0.4 % 706-2) GRAN MAT x10^3(ANC) 13.72 10*3/uL 1.99-6.95 H (test code = 3333287781) IMM GRAN x10^3 (test 0.11 10*3/uL 0.00-0.06 H code = 0925739788) LYMPH x10^3 (test code 1.94 10*3/uL 1.09-3.23 = 731-0) MONO x10^3 (test code 1.04 10*3/uL 0.36-1.02 H = 742-7) EOS x10^3 (test code = 0.19 10*3/uL 0.06-0.53 711-2) BASO x10^3 (test code 0.06 10*3/uL 0.01-0.09 = 704-7) Lab Interpretation Abnormal (test code = 06162-6) [facility] WITH [id number] 11:01:33 Test Item Value Reference Range Interpretation Comments WBC (test code = See_Comment H [Automated 6690-2) message] The system which generated this result transmit qing reference range : 4.20 - 10.70 10*3/?L. The reference range was not used to interpret this result as normal/abnormal . RBC (test code = See_Comment L [Automated 789-8) message] The system which generated this result transmit qing reference range : 4.26 - 5.52 10*6/?L. The reference range was not used to interpret this result as normal/abnormal . HGB (test code = 8.4 g/dL 12.2-16.4 L 718-7) HCT (test code = 25.1 % 38.4-49.3 L 4544-3) MCV (test code = 91.9 fL 81.7-95.6 787-2) MCH (test code = 30.8 pg 26.1-32.7 785-6) MCHC (test code = 33.5 g/dL 31.2-35.0 786-4) RDW-SD (test code = 45.6 fL 38.5-51.6 60547-0) RDW-CV (test code = 13.6 % 12.1-15.4 788-0) PLT (test code = See_Comment H [Automated 777-3) message] The system which generated this result transmit qing reference range : 150 - 328 10*3/ ?L. The reference range was not u sed to interpret th is result as normal/abnormal . MPV (test code = 9.0 fL 9.8-13.0 L 57735-9) NRBC/100 WBC (test See_Comment [Automat ed code = 7233098178) message] The system which generated this result transmit qing reference range : 0.0 - 10.0 /100 WBCs. The reference range was not used to interpret this result as normal/abnormal . NRBC x10^3 (test code <0.01 See_Comment [Auto mated = 1553249637) message] The system which generated this result transmit qing reference range : 10*3/?L. The reference range was not used to interpret this result as normal/abnormal . GRAN MAT (NEUT) % 80.4 % (test code = 770-8) IMM GRAN % (test code 0.60 % = 6127911515) LYMPH % (test code = 11.4 % 736-9) MONO % (test code = 6.1 % 5905-5) EOS % (test code = 1.1 % 713-8) BASO % (test code = 0.4 % 706-2) GRAN MAT x10^3(ANC) 13.72 10*3/uL 1.99-6.95 H (test code = 4433447852) IMM GRAN x10^3 (test 0.11 10*3/uL 0.00-0.06 H code = 8595676356) LYMPH x10^3 (test code 1.94 10*3/uL 1.09-3.23 = 731-0) MONO x10^3 (test code 1.04 10*3/uL 0.36-1.02 H = 742-7) EOS x10^3 (test code = 0.19 10*3/uL 0.06-0.53 711-2) BASO x10^3 (test code 0.06 10*3/uL 0.01-0.09 = 704-7) Lab Interpretation Abnormal (test code = 29101-9) [facility] GLUCOSE (AUTOMATED)2021-03-21 02:05:00 Test Item Value Reference Range Interpretation Comments POCT GLU (test code = 127 mg/dL 70-110 H Notifi ed Provider [id number]) Lab Interpretation (test Abnormal code = 08494-4) [facility] GLUCOSE (AUTOMATED)2021-03-21 02:05:00 Test Item Value Reference Range Interpretation Comments POCT GLU (test code = 127 mg/dL 70-110 H Notifi ed Provider 8348939863) Lab Interpretation (test Abnormal code = 40623-0) [facility] GLUCOSE (AUTOMATED)2021-03-20 22:05:19 Test Item Value Reference Range Interpretation Comments POCT GLU (test code = 6512557728) 130 mg/dL 70-110 H Lab Interpretation (test code = Abnormal 67112-6) [facility] GLUCOSE (AUTOMATED)2021-03-20 22:05:19 Test Item Value Reference Range Interpretation Comments POCT GLU (test code = 2625522981) 130 mg/dL 70-110 H Lab Interpretation (test code = Abnormal 15281-1[id number]:01:22 Test Item Value Reference Range Interpretation Comments Blood Culture-Aerobic No organisms No growth Previo us (test code = 50500-1) isolated prelim inary verified result was Culture In 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/2021 at 16 01 CSTPrevious preliminary verified result was No growth a t 24 hours on 03/16/2021 at 13 01 CSTPrevious preliminary verified result was No growth a t 48 hours on 03/17/2021 at 13 01 CSTPrevious preliminary verified result was No growth a t 72 hours on 03/18/2021 at 13 01 [employer] Blood No organisms No growth Previous Culture-Anaerobic isolated preliminar y (test code = 47109-5) verifi ed result was Culture In 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/2021 at 16 01 CSTPrevious preliminary verified result was No growth a t 24 hours on 03/16/2021 at 13 01 CSTPrevious preliminary verified result was No growth a t 48 hours on 03/17/2021 at 13 01 CSTPrevious preliminary verified result was No growth a t 72 hours on 03/18/2021 at 13 01 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 Normal (test code = 45929-7) [facility] [id number] 19:01:22 Test Item Value Reference Range Interpretation Comments Blood Culture-Aerobic No organisms No growth Previo us (test code = 47381-4) isolated prelim inary verified result was Culture In 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/2021 at 16 01 CSTPrevious preliminary verified result was No growth a t 24 hours on 03/16/2021 at 13 01 CSTPrevious preliminary verified result was No growth a t 48 hours on 03/17/2021 at 13 01 CSTPrevious preliminary verified result was No growth a t 72 hours on 03/18/2021 at 13 01 [employer] Blood No organisms No growth Previous Culture-Anaerobic isolated preliminar y (test code = 26682-1) verifi ed result was Culture In 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/2021 at 16 01 CSTPrevious preliminary verified result was No growth a t 24 hours on 03/16/2021 at 13 01 CSTPrevious preliminary verified result was No growth a t 48 hours on 03/17/2021 at 13 01 CSTPrevious preliminary verified result was No growth a t 72 hours on 03/18/2021 at 13 01 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 Normal (test code = 42316-8) [facility] GLUCOSE (AUTOMATED)2021-03-20 18:18:30 Test Item Value Reference Range Interpretation Comments POCT GLU (test code = 7344149757) 127 mg/dL 70-110 H Lab Interpretation (test code = Abnormal 40325-7) [facility] GLUCOSE (AUTOMATED)2021-03-20 18:18:30 Test Item Value Reference Range Interpretation Comments POCT GLU (test code = 5257654007) 127 mg/dL 70-110 H Lab Interpretation (test code = Abnormal 34406-8) [facility] GLUCOSE (AUTOMATED)2021-03-20 16:31:11 Test Item Value Reference Range Interpretation Comments POCT GLU (test code = 9544207270) 118 mg/dL 70-110 H Lab Interpretation (test code = Abnormal 93095-9) [facility] 16:31:11 Test Item Value Reference Range Interpretation Comments POCT GLU (test code = 2316380690) 118 mg/dL 70-110 H Lab Interpretation (test code = Abnormal 35151-3) [facility] METABOLIC PANEL (NA, K, CL, CO2, GLUCOSE, BUN, CREATININE, CA)2021-03-20 13:08:50 Test Item Value Reference Range Interpretation Comments NA (test code = 129 mmol/L 135-145 L 1024817099) K (test code = 5.1 mmol/L 3.5-5.0 H 9165861830) CL (test code = 100 mmol/L 98-108 6768461815) CO2 TOTAL (test code = 21 mmol/L 23-31 L 9783376277) AGAP (test code = 2-16 9369839068) BUN (test code = 39 mg/dL 7-23 H 0684872350) GLUCOSE (test code = 120 mg/dL 70-110 H 2655590898) CREATININE (test code = 0.70 mg/dL 0.60-1.25 1292086401) CALCIUM (test code = 8.7 mg/dL 8.6-10.6 2837542070) eGFR (test code = mL/min/1.73m2 6490545182) POP (test code = POP) Association of Glomerular Filtration Rate (GFR) and Staging of Kidney Disease* + --+ --+ ------+| GFR (mL/min/1.73 m2) ?| With Kidney Damage ?| ?Without Kidney Damage+ --------+ --------+ +| ?>90 ?| ?Stage one ?| ? Normal ?+ ---+ ---+ -------+| ?60-89 ?| ?Stage two ?| ? Decreased GFR ? + --+ --+ ------+| ?30-59 ?| ?Stage three ?| ? Stage three ? + --+ --+ ------+| ?15-29 ?| ?Stage four ? | ? Stage four ?+ ---+ ---+ -------+| ?<15 (or dialysis) ? ?| ?Stage five ? | ? Stage five ?+ ---+ ---+ -------+ *Each stage assumes the associated GFR level has been in effect for at least three months. ?Stages 1 to 5, with or without kidney disease, indicate chronic kidney disease. Notes: Determination of stages one and two (with eGFR >59mL/min/1.73 m2) requires estimation of kidney damage for at least three months as defined by structural or functional abnormalities of the kidney, manifested by either:Pathological abnormalities or Markers of kidney damage (including abnormalities in the composition of the blood or urine or abnormalities in imaging tests). Lab Interpretation Abnormal (test code = 87625-9) [facility] METABOLIC PANEL (NA, K, CL, CO2, GLUCOSE, BUN, CREATININE, CA)2021-03-20 13:08:50 Test Item Value Reference Range Interpretation Comments NA (test code = 129 mmol/L 135-145 L 9907213320) K (test code = 5.1 mmol/L 3.5-5.0 H 6974998569) CL (test code = 100 mmol/L 98-108 4511868288) CO2 TOTAL (test code = 21 mmol/L 23-31 L 3004054751) AGAP (test code = 2-16 5955745716) BUN (test code = 39 mg/dL 7-23 H 8285669869) GLUCOSE (test code = 120 mg/dL 70-110 H 0584260426) CREATININE (test code = 0.70 mg/dL 0.60-1.25 6211315881) CALCIUM (test code = 8.7 mg/dL 8.6-10.6 0334320712) eGFR (test code = mL/min/1.73m2 1875243992) POP (test code = POP) Association of Glomerular Filtration Rate (GFR) and Staging of Kidney Disease* + --+ --+ ------+| GFR (mL/min/1.73 m2) ?| With Kidney Damage ?| ?Without Kidney Damage+ --------+ --------+ +| ?>90 ?| ?Stage one ?| ? Normal ?+ ---+ ---+ -------+| ?60-89 ?| ?Stage two ?| ? Decreased GFR ? + --+ --+ ------+| ?30-59 ?| ?Stage three ?| ? Stage three ? + --+ --+ ------+| ?15-29 ?| ?Stage four ? | ? Stage four ?+ ---+ ---+ -------+| ?<15 (or dialysis) ? ?| ?Stage five ? | ? Stage five ?+ ---+ ---+ -------+ *Each stage assumes the associated GFR level has been in effect for at least three months. ?Stages 1 to 5, with or without kidney disease, indicate chronic kidney disease. Notes: Determination of stages one and two (with eGFR >59mL/min/1.73 m2) requires estimation of kidney damage for at least three months as defined by structural or functional abnormalities of the kidney, manifested by either:Pathological abnormalities or Markers of kidney damage (including abnormalities in the composition of the blood or urine or abnormalities in imaging tests). Lab Interpretation Abnormal (test code = 20900-1) [facility] WITH [id number] 12:44:04 Test Item Value Reference Range Interpretation Comments WBC (test code = See_Comment H [Automated 6690-2) message] The system which generated this result transmit qing reference range : 4.20 - 10.70 10*3/?L. The reference range was not used to interpret this result as normal/abnormal . RBC (test code = See_Comment L [Automated 789-8) message] The system which generated this result transmit qing reference range : 4.26 - 5.52 10*6/?L. The reference range was not used to interpret this result as normal/abnormal . HGB (test code = 9.8 g/dL 12.2-16.4 L 718-7) HCT (test code = 29.8 % 38.4-49.3 L 4544-3) MCV (test code = 93.1 fL 81.7-95.6 787-2) MCH (test code = 30.6 pg 26.1-32.7 785-6) MCHC (test code = 32.9 g/dL 31.2-35.0 786-4) RDW-SD (test code = 44.3 fL 38.5-51.6 12834-0) RDW-CV (test code = 13.0 % 12.1-15.4 788-0) PLT (test code = See_Comment H [Automated 777-3) message] The system which generated this result transmit qing reference range : 150 - 328 10*3/ ?L. The reference range was not u sed to interpret th is result as normal/abnormal . MPV (test code = 9.5 fL 9.8-13.0 L 51984-4) NRBC/100 WBC (test See_Comment [Automat ed code = 6028902758) message] The system which generated this result transmit qing reference range : 0.0 - 10.0 /100 WBCs. The reference range was not used to interpret this result as normal/abnormal . NRBC x10^3 (test code <0.01 See_Comment [Auto mated = 5611774084) message] The system which generated this result transmit qing reference range : 10*3/?L. The reference range was not used to interpret this result as normal/abnormal . GRAN MAT (NEUT) % 79.5 % (test code = 770-8) IMM GRAN % (test code 0.70 % = 5492932428) LYMPH % (test code = 12.6 % 736-9) MONO % (test code = 5.2 % 5905-5) EOS % (test code = 1.7 % 713-8) BASO % (test code = 0.3 % 706-2) GRAN MAT x10^3(ANC) 11.98 10*3/uL 1.99-6.95 H (test code = 6886485079) IMM GRAN x10^3 (test 0.10 10*3/uL 0.00-0.06 H code = 5225947833) LYMPH x10^3 (test code 1.90 10*3/uL 1.09-3.23 = 731-0) MONO x10^3 (test code 0.79 10*3/uL 0.36-1.02 = 742-7) EOS x10^3 (test code = 0.26 10*3/uL 0.06-0.53 711-2) BASO x10^3 (test code 0.05 10*3/uL 0.01-0.09 = 704-7) Lab Interpretation Abnormal (test code = 62834-2) [facility] WITH [id number] 12:44:04 Test Item Value Reference Range Interpretation Comments WBC (test code = See_Comment H [Automated 6690-2) message] The system which generated this result transmit qing reference range : 4.20 - 10.70 10*3/?L. The reference range was not used to interpret this result as normal/abnormal . RBC (test code = See_Comment L [Automated 789-8) message] The system which generated this result transmit qing reference range : 4.26 - 5.52 10*6/?L. The reference range was not used to interpret this result as normal/abnormal . HGB (test code = 9.8 g/dL 12.2-16.4 L 718-7) HCT (test code = 29.8 % 38.4-49.3 L 4544-3) MCV (test code = 93.1 fL 81.7-95.6 787-2) MCH (test code = 30.6 pg 26.1-32.7 785-6) MCHC (test code = 32.9 g/dL 31.2-35.0 786-4) RDW-SD (test code = 44.3 fL 38.5-51.6 01431-9) RDW-CV (test code = 13.0 % 12.1-15.4 788-0) PLT (test code = See_Comment H [Automated 777-3) message] The system which generated this result transmit qing reference range : 150 - 328 10*3/ ?L. The reference range was not u sed to interpret th is result as normal/abnormal . MPV (test code = 9.5 fL 9.8-13.0 L 53018-6) NRBC/100 WBC (test See_Comment [Automat ed code = 4458472933) message] The system which generated this result transmit qing reference range : 0.0 - 10.0 /100 WBCs. The reference range was not used to interpret this result as normal/abnormal . NRBC x10^3 (test code <0.01 See_Comment [Auto mated = 6370200049) message] The system which generated this result transmit qing reference range : 10*3/?L. The reference range was not used to interpret this result as normal/abnormal . GRAN MAT (NEUT) % 79.5 % (test code = 770-8) IMM GRAN % (test code 0.70 % = 9626236529) LYMPH % (test code = 12.6 % 736-9) MONO % (test code = 5.2 % 5905-5) EOS % (test code = 1.7 % 713-8) BASO % (test code = 0.3 % 706-2) GRAN MAT x10^3(ANC) 11.98 10*3/uL 1.99-6.95 H (test code = 5507523487) IMM GRAN x10^3 (test 0.10 10*3/uL 0.00-0.06 H code = 6156930059) LYMPH x10^3 (test code 1.90 10*3/uL 1.09-3.23 = 731-0) MONO x10^3 (test code 0.79 10*3/uL 0.36-1.02 = 742-7) EOS x10^3 (test code = 0.26 10*3/uL 0.06-0.53 711-2) BASO x10^3 (test code 0.05 10*3/uL 0.01-0.09 = 704-7) Lab Interpretation Abnormal (test code = 89174-6) [facility] GLUCOSE (AUTOMATED)2021-03-19 23:48:28 Test Item Value Reference Range Interpretation Comments POCT GLU (test code = 8845963005) 131 mg/dL 70-110 H Lab Interpretation (test code = Abnormal 06704-5) [facility] GLUCOSE (AUTOMATED)2021-03-19 23:48:28 Test Item Value Reference Range Interpretation Comments POCT GLU (test code = 1772525394) 131 mg/dL 70-110 H Lab Interpretation (test code = Abnormal 14561-2) [facility] GLUCOSE (AUTOMATED)2021-03-19 17:56:46 Test Item Value Reference Range Interpretation Comments POCT GLU (test code = 3738351233) 128 mg/dL 70-110 H Lab Interpretation (test code = Abnormal 66387-1) [facility] GLUCOSE (AUTOMATED)2021-03-19 17:56:46 Test Item Value Reference Range Interpretation Comments POCT GLU (test code = 9315127007) 128 mg/dL 70-110 H Lab Interpretation (test code = Abnormal 67986-4) [facility] GLUCOSE (AUTOMATED)2021-03-19 14:18:18 Test Item Value Reference Range Interpretation Comments POCT GLU (test code = 0008701039) 100 mg/dL 70-110 Lab Interpretation (test code = Normal 24839-2) [facility] GLUCOSE (AUTOMATED)2021-03-19 14:18:18 Test Item Value Reference Range Interpretation Comments POCT GLU (test code = 8909952192) 100 mg/dL 70-110 Lab Interpretation (test code = Normal 19228-7) [facility] METABOLIC PANEL (NA, K, CL, CO2, GLUCOSE, BUN, CREATININE, CA)2021-03-19 11:17:21 Test Item Value Reference Range Interpretation Comments NA (test code = 130 mmol/L 135-145 L 3945675654) K (test code = 5.1 mmol/L 3.5-5.0 H 5597988781) CL (test code = 101 mmol/L 98-108 7598934520) CO2 TOTAL (test code = 22 mmol/L 23-31 L 6204830449) AGAP (test code = 2-16 9623383447) BUN (test code = 19 mg/dL 7-23 3502014853) GLUCOSE (test code = 95 mg/dL 70-110 2194298707) CREATININE (test code = 0.75 mg/dL 0.60-1.25 7033844378) CALCIUM (test code = 9.0 mg/dL 8.6-10.6 7789474114) eGFR (test code = mL/min/1.73m2 3064158189) POP (test code = POP) Association of Glomerular Filtration Rate (GFR) and Staging of Kidney Disease* + --+ --+ ------+| GFR (mL/min/1.73 m2) ?| With Kidney Damage ?| ?Without Kidney Damage+ --------+ --------+ +| ?>90 ?| ?Stage one ?| ? Normal ?+ ---+ ---+ -------+| ?60-89 ?| ?Stage two ?| ? Decreased GFR ? + --+ --+ ------+| ?30-59 ?| ?Stage three ?| ? Stage three ? + --+ --+ ------+| ?15-29 ?| ?Stage four ? | ? Stage four ?+ ---+ ---+ -------+| ?<15 (or dialysis) ? ?| ?Stage five ? | ? Stage five ?+ ---+ ---+ -------+ *Each stage assumes the associated GFR level has been in effect for at least three months. ?Stages 1 to 5, with or without kidney disease, indicate chronic kidney disease. Notes: Determination of stages one and two (with eGFR >59mL/min/1.73 m2) requires estimation of kidney damage for at least three months as defined by structural or functional abnormalities of the kidney, manifested by either:Pathological abnormalities or Markers of kidney damage (including abnormalities in the composition of the blood or urine or abnormalities in imaging tests). Lab Interpretation Abnormal (test code = 90265-9) [facility] METABOLIC PANEL (NA, K, CL, CO2, GLUCOSE, BUN, CREATININE, CA)2021-03-19 11:17:21 Test Item Value Reference Range Interpretation Comments NA (test code = 130 mmol/L 135-145 L 1400683694) K (test code = 5.1 mmol/L 3.5-5.0 H 5734929560) CL (test code = 101 mmol/L 98-108 8270284333) CO2 TOTAL (test code = 22 mmol/L 23-31 L 0959281897) AGAP (test code = 2-16 1462612147) BUN (test code = 19 mg/dL 7-23 2483058262) GLUCOSE (test code = 95 mg/dL 70-110 6575990737) CREATININE (test code = 0.75 mg/dL 0.60-1.25 7067955039) CALCIUM (test code = 9.0 mg/dL 8.6-10.6 1103845731) eGFR (test code = mL/min/1.73m2 4107575454) POP (test code = POP) Association of Glomerular Filtration Rate (GFR) and Staging of Kidney Disease* + --+ --+ ------+| GFR (mL/min/1.73 m2) ?| With Kidney Damage ?| ?Without Kidney Damage+ --------+ --------+ +| ?>90 ?| ?Stage one ?| ? Normal ?+ ---+ ---+ -------+| ?60-89 ?| ?Stage two ?| ? Decreased GFR ? + --+ --+ ------+| ?30-59 ?| ?Stage three ?| ? Stage three ? + --+ --+ ------+| ?15-29 ?| ?Stage four ? | ? Stage four ?+ ---+ ---+ -------+| ?<15 (or dialysis) ? ?| ?Stage five ? | ? Stage five ?+ ---+ ---+ -------+ *Each stage assumes the associated GFR level has been in effect for at least three months. ?Stages 1 to 5, with or without kidney disease, indicate chronic kidney disease. Notes: Determination of stages one and two (with eGFR >59mL/min/1.73 m2) requires estimation of kidney damage for at least three months as defined by structural or functional abnormalities of the kidney, manifested by either:Pathological abnormalities or Markers of kidney damage (including abnormalities in the composition of the blood or urine or abnormalities in imaging tests). Lab Interpretation Abnormal (test code = 33437-1) [facility] GLUCOSE (AUTOMATED)2021-03-18 23:30:38 Test Item Value Reference Range Interpretation Comments POCT GLU (test code = 4338735245) 126 mg/dL 70-110 H Lab Interpretation (test code = Abnormal 04632-3) [facility] GLUCOSE (AUTOMATED)2021-03-18 23:30:38 Test Item Value Reference Range Interpretation Comments POCT GLU (test code = 4079203008) 126 mg/dL 70-110 H Lab Interpretation (test code = Abnormal 05359-4) [facility] GLUCOSE (AUTOMATED)2021-03-18 18:01:48 Test Item Value Reference Range Interpretation Comments POCT GLU (test code = 1309854354) 122 mg/dL 70-110 H Lab Interpretation (test code = Abnormal 03151-4) [facility] GLUCOSE (AUTOMATED)2021-03-18 18:01:48 Test Item Value Reference Range Interpretation Comments POCT GLU (test code = 6079069881) 122 mg/dL 70-110 H Lab Interpretation (test code = Abnormal 49077-5) [facility] CULTURE [id number] 14:30:49 Test Item Value Reference Range Interpretation Comments Blood Culture-Aerobic Culture positive. No growth AA P revious (test code = 65163-1) See Blood prelim inary Culture Workup verified resu lt for additional was Culture I n information. 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 Abnormal (test code = 70003-2) [facility] CULTURE [id number] 14:30:49 Test Item Value Reference Range Interpretation Comments Blood Culture-Aerobic Culture positive. No growth AA P revious (test code = 84087-3) See Blood prelim inary Culture Workup verified resu lt for additional was Culture I n information. 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 Abnormal (test code = 03180-6) [facility] GLUCOSE (AUTOMATED)2021-03-18 14:13:04 Test Item Value Reference Range Interpretation Comments POCT GLU (test code = 0206396163) 85 mg/dL 70-110 Lab Interpretation (test code = Normal 11866-9) [facility] GLUCOSE (AUTOMATED)2021-03-18 14:13:04 Test Item Value Reference Range Interpretation Comments POCT GLU (test code = 3674647301) 85 mg/dL 70-110 Lab Interpretation (test code = Normal 98265-8) [facility] Test Item Value Reference Range Interpretation Comments MAGNESIUM (test code = 0997625032) 1.6 mg/dL 1.7-2.4 L Lab Interpretation (test code = Abnormal 37861-1) [facility]2021-12-08 12:24:26 Test Item Value Reference Range Interpretation Comments MAGNESIUM (test code = 1267774768) 1.6 mg/dL 1.7-2.4 L Lab Interpretation (test code = Abnormal 17303-4) [facility] METABOLIC PANEL (NA, K, CL, CO2, GLUCOSE, BUN, CREATININE, CA)2021-03-18 12:24:06 Test Item Value Reference Range Interpretation Comments NA (test code = 131 mmol/L 135-145 L 8444568643) K (test code = 4.5 mmol/L 3.5-5.0 1449562661) CL (test code = 100 mmol/L 98-108 0638491697) CO2 TOTAL (test code = 25 mmol/L 23-31 2097651790) AGAP (test code = 2-16 1215745805) BUN (test code = 19 mg/dL 7-23 5104754120) GLUCOSE (test code = 87 mg/dL 70-110 5056317725) CREATININE (test code = 0.78 mg/dL 0.60-1.25 4498146862) CALCIUM (test code = 8.8 mg/dL 8.6-10.6 9866381154) eGFR (test code = mL/min/1.73m2 2974176958) POP (test code = POP) Association of Glomerular Filtration Rate (GFR) and Staging of Kidney Disease* + --+ --+ ------+| GFR (mL/min/1.73 m2) ?| With Kidney Damage ?| ?Without Kidney Damage+ --------+ --------+ +| ?>90 ?| ?Stage one ?| ? Normal ?+ ---+ ---+ -------+| ?60-89 ?| ?Stage two ?| ? Decreased GFR ? + --+ --+ ------+| ?30-59 ?| ?Stage three ?| ? Stage three ? + --+ --+ ------+| ?15-29 ?| ?Stage four ? | ? Stage four ?+ ---+ ---+ -------+| ?<15 (or dialysis) ? ?| ?Stage five ? | ? Stage five ?+ ---+ ---+ -------+ *Each stage assumes the associated GFR level has been in effect for at least three months. ?Stages 1 to 5, with or without kidney disease, indicate chronic kidney disease. Notes: Determination of stages one and two (with eGFR >59mL/min/1.73 m2) requires estimation of kidney damage for at least three months as defined by structural or functional abnormalities of the kidney, manifested by either:Pathological abnormalities or Markers of kidney damage (including abnormalities in the composition of the blood or urine or abnormalities in imaging tests). Lab Interpretation Abnormal (test code = 13362-9) [facility] METABOLIC PANEL (NA, K, CL, CO2, GLUCOSE, BUN, CREATININE, CA)2021-03-18 12:24:06 Test Item Value Reference Range Interpretation Comments NA (test code = 131 mmol/L 135-145 L 3226179041) K (test code = 4.5 mmol/L 3.5-5.0 1150376099) CL (test code = 100 mmol/L 98-108 6119069606) CO2 TOTAL (test code = 25 mmol/L 23-31 5605035909) AGAP (test code = 2-16 3620203131) BUN (test code = 19 mg/dL 7-23 5916136404) GLUCOSE (test code = 87 mg/dL 70-110 0961176545) CREATININE (test code = 0.78 mg/dL 0.60-1.25 8075590277) CALCIUM (test code = 8.8 mg/dL 8.6-10.6 5348966614) eGFR (test code = mL/min/1.73m2 9821953446) POP (test code = POP) Association of Glomerular Filtration Rate (GFR) and Staging of Kidney Disease* + --+ --+ ------+| GFR (mL/min/1.73 m2) ?| With Kidney Damage ?| ?Without Kidney Damage+ --------+ --------+ +| ?>90 ?| ?Stage one ?| ? Normal ?+ ---+ ---+ -------+| ?60-89 ?| ?Stage two ?| ? Decreased GFR ? + --+ --+ ------+| ?30-59 ?| ?Stage three ?| ? Stage three ? + --+ --+ ------+| ?15-29 ?| ?Stage four ? | ? Stage four ?+ ---+ ---+ -------+| ?<15 (or dialysis) ? ?| ?Stage five ? | ? Stage five ?+ ---+ ---+ -------+ *Each stage assumes the associated GFR level has been in effect for at least three months. ?Stages 1 to 5, with or without kidney disease, indicate chronic kidney disease. Notes: Determination of stages one and two (with eGFR >59mL/min/1.73 m2) requires estimation of kidney damage for at least three months as defined by structural or functional abnormalities of the kidney, manifested by either:Pathological abnormalities or Markers of kidney damage (including abnormalities in the composition of the blood or urine or abnormalities in imaging tests). Lab Interpretation Abnormal (test code = 76978-2) [facility] WITH [id number] 11:18:58 Test Item Value Reference Range Interpretation Comments WBC (test code = See_Comment H [Automated 6690-2) message] The sy stem which generated this result transmitted reference range : 4.20 - 10.70 10*3/?L. The reference range was not used to interpret this result as normal/abnormal . RBC (test code = See_Comment L [Automated 789-8) message] The sy stem which generated this result transmitted reference range : 4.26 - 5.52 10*6/?L. The reference range was not used to interpret this result as normal/abnormal . HGB (test code = 10.9 g/dL 12.2-16.4 L 718-7) HCT (test code = 33.7 % 38.4-49.3 L 4544-3) MCV (test code = 93.9 fL 81.7-95.6 787-2) MCH (test code = 30.4 pg 26.1-32.7 785-6) MCHC (test code = 32.3 g/dL 31.2-35.0 786-4) RDW-SD (test code = 45.3 fL 38.5-51.6 42681-6) RDW-CV (test code = 13.1 % 12.1-15.4 788-0) PLT (test code = See_Comment H [Automated 777-3) message] The sy stem which generated this result transmitted reference range : 150 - 328 10*3/ ?L. The reference r jalen was not used to interpret this result as normal/abnormal . MPV (test code = 9.3 fL 9.8-13.0 L 52279-1) NRBC/100 WBC (test See_Comment [Automat ed code = 0441744850) message] The system which generated this result transmitted reference range : 0.0 - 10.0 /100 WBCs. The refer ence range was not u sed to interpret th is result as normal/abnormal . NRBC x10^3 (test code <0.01 See_Comment [Auto mated = 0443924825) message] The s ystem which generated this result transmitted reference range : 10*3/?L. The reference range was not used to interpret this result as normal/abnormal . GRAN MAT (NEUT) % 69.4 % (test code = 770-8) IMM GRAN % (test code 0.50 % = 8249049442) LYMPH % (test code = 18.2 % 736-9) MONO % (test code = 7.4 % 5905-5) EOS % (test code = 4.0 % 713-8) BASO % (test code = 0.5 % 706-2) GRAN MAT x10^3(ANC) 7.58 10*3/uL 1.99-6.95 H (test code = 6894636230) IMM GRAN x10^3 (test 0.06 10*3/uL 0.00-0.06 code = 1043782635) LYMPH x10^3 (test code 1.99 10*3/uL 1.09-3.23 = 731-0) MONO x10^3 (test code 0.81 10*3/uL 0.36-1.02 = 742-7) EOS x10^3 (test code = 0.44 10*3/uL 0.06-0.53 711-2) BASO x10^3 (test code 0.06 10*3/uL 0.01-0.09 = 704-7) Lab Interpretation Abnormal (test code = 41848-0) [facility] WITH [id number] 11:18:58 Test Item Value Reference Range Interpretation Comments WBC (test code = See_Comment H [Automated 6690-2) message] The sy stem which generated this result transmitted reference range : 4.20 - 10.70 10*3/?L. The reference range was not used to interpret this result as normal/abnormal . RBC (test code = See_Comment L [Automated 019-8) message] The sy stem which generated this result transmitted reference range : 4.26 - 5.52 10*6/?L. The reference range was not used to interpret this result as normal/abnormal . HGB (test code = 10.9 g/dL 12.2-16.4 L 718-7) HCT (test code = 33.7 % 38.4-49.3 L 4544-3) MCV (test code = 93.9 fL 81.7-95.6 787-2) MCH (test code = 30.4 pg 26.1-32.7 785-6) MCHC (test code = 32.3 g/dL 31.2-35.0 786-4) RDW-SD (test code = 45.3 fL 38.5-51.6 65960-0) RDW-CV (test code = 13.1 % 12.1-15.4 788-0) PLT (test code = See_Comment H [Automated 777-3) message] The sy stem which generated this result transmitted reference range : 150 - 328 10*3/ ?L. The reference r jalen was not used to interpret this result as normal/abnormal . MPV (test code = 9.3 fL 9.8-13.0 L 11769-1) NRBC/100 WBC (test See_Comment [Automat ed code = 8328635509) message] The system which generated this result transmitted reference range : 0.0 - 10.0 /100 WBCs. The refer ence range was not u sed to interpret th is result as normal/abnormal . NRBC x10^3 (test code <0.01 See_Comment [Auto mated = 7290128646) message] The s ystem which generated this result transmitted reference range : 10*3/?L. The reference range was not used to interpret this result as normal/abnormal . GRAN MAT (NEUT) % 69.4 % (test code = 770-8) IMM GRAN % (test code 0.50 % = 6580350144) LYMPH % (test code = 18.2 % 736-9) MONO % (test code = 7.4 % 5905-5) EOS % (test code = 4.0 % 713-8) BASO % (test code = 0.5 % 706-2) GRAN MAT x10^3(ANC) 7.58 10*3/uL 1.99-6.95 H (test code = 3965959074) IMM GRAN x10^3 (test 0.06 10*3/uL 0.00-0.06 code = 1946101252) LYMPH x10^3 (test code 1.99 10*3/uL 1.09-3.23 = 731-0) MONO x10^3 (test code 0.81 10*3/uL 0.36-1.02 = 742-7) EOS x10^3 (test code = 0.44 10*3/uL 0.06-0.53 711-2) BASO x10^3 (test code 0.06 10*3/uL 0.01-0.09 = 704-7) Lab Interpretation Abnormal (test code = 16350-5) [facility] GLUCOSE (AUTOMATED)2021-03-17 22:53:20 Test Item Value Reference Range Interpretation Comments POCT GLU (test code = 1019870919) 121 mg/dL 70-110 H Lab Interpretation (test code = Abnormal 62165-1) [facility] GLUCOSE (AUTOMATED)2021-03-17 22:53:20 Test Item Value Reference Range Interpretation Comments POCT GLU (test code = 9386526915) 121 mg/dL 70-110 H Lab Interpretation (test code = Abnormal 41042-4) [facility] GLUCOSE (AUTOMATED)2021-03-17 18:13:55 Test Item Value Reference Range Interpretation Comments POCT GLU (test code = 8301492243) 115 mg/dL 70-110 H Lab Interpretation (test code = Abnormal 14687-4) [facility] GLUCOSE (AUTOMATED)2021-03-17 18:13:55 Test Item Value Reference Range Interpretation Comments POCT GLU (test code = 9890217869) 115 mg/dL 70-110 H Lab Interpretation (test code = Abnormal 92501-6) [id number] 16:28:08 MILD LEUKOCYTOSIS WITH ABSOLUTE NEUTROPHILIA. NO BLASTS IDENTIFIED. ERYTHROCYTES ARE UNREMARKABLE.THROMBOCYTOSIS.[facility] DIFF CONSULT [id number] 16:28:08MILD LEUKOCYTOSIS WITH ABSOLUTE NEUTROPHILIA. NO BLASTS IDENTIFIED. ERYTHROCYTES ARE UNREMARKABLE. THROMBOCYTOSIS.[facility] GLUCOSE (AUTOMATED) 2021-03-17 13:49:48 Test Item Value Reference Range Interpretation Comments POCT GLU (test code = 1991480731) 96 mg/dL 70-110 Lab Interpretation (test code = Normal 81190-0) [facility] GLUCOSE (AUTOMATED)2021-03-17 13:49:48 Test Item Value Reference Range Interpretation Comments POCT GLU (test code = 2576520953) 96 mg/dL 70-110 Lab Interpretation (test code = Normal 60652-5) [facility] METABOLIC PANEL (NA, K, CL, CO2, GLUCOSE, BUN, CREATININE, CA)2021-03-17 13:21:15 Test Item Value Reference Range Interpretation Comments NA (test code = 131 mmol/L 135-145 L 3937577135) K (test code = 4.3 mmol/L 3.5-5.0 4491212972) CL (test code = 100 mmol/L 98-108 4981022039) CO2 TOTAL (test code = 25 mmol/L 23-31 6752062344) AGAP (test code = 2-16 3374846507) BUN (test code = 16 mg/dL 7-23 9741562137) GLUCOSE (test code = 104 mg/dL 70-110 0435289438) CREATININE (test code = 0.73 mg/dL 0.60-1.25 5827470133) CALCIUM (test code = 8.7 mg/dL 8.6-10.6 1786905577) eGFR (test code = mL/min/1.73m2 9988075131) POP (test code = POP) Association of Glomerular Filtration Rate (GFR) and Staging of Kidney Disease* + --+ --+ ------+| GFR (mL/min/1.73 m2) ?| With Kidney Damage ?| ?Without Kidney Damage+ --------+ --------+ +| ?>90 ?| ?Stage one ?| ? Normal ?+ ---+ ---+ -------+| ?60-89 ?| ?Stage two ?| ? Decreased GFR ? + --+ --+ ------+| ?30-59 ?| ?Stage three ?| ? Stage three ? + --+ --+ ------+| ?15-29 ?| ?Stage four ? | ? Stage four ?+ ---+ ---+ -------+| ?<15 (or dialysis) ? ?| ?Stage five ? | ? Stage five ?+ ---+ ---+ -------+ *Each stage assumes the associated GFR level has been in effect for at least three months. ?Stages 1 to 5, with or without kidney disease, indicate chronic kidney disease. Notes: Determination of stages one and two (with eGFR >59mL/min/1.73 m2) requires estimation of kidney damage for at least three months as defined by structural or functional abnormalities of the kidney, manifested by either:Pathological abnormalities or Markers of kidney damage (including abnormalities in the composition of the blood or urine or abnormalities in imaging tests). Lab Interpretation Abnormal (test code = 60790-6) [facility] METABOLIC PANEL (NA, K, CL, CO2, GLUCOSE, BUN, CREATININE, CA)2021-03-17 13:21:15 Test Item Value Reference Range Interpretation Comments NA (test code = 131 mmol/L 135-145 L 0140691717) K (test code = 4.3 mmol/L 3.5-5.0 2921368553) CL (test code = 100 mmol/L 98-108 1215789030) CO2 TOTAL (test code = 25 mmol/L 23-31 0037984937) AGAP (test code = 2-16 4949134076) BUN (test code = 16 mg/dL 7-23 0983544270) GLUCOSE (test code = 104 mg/dL 70-110 7482773945) CREATININE (test code = 0.73 mg/dL 0.60-1.25 2671474442) CALCIUM (test code = 8.7 mg/dL 8.6-10.6 6564328273) eGFR (test code = mL/min/1.73m2 5782788845) POP (test code = POP) Association of Glomerular Filtration Rate (GFR) and Staging of Kidney Disease* + --+ --+ ------+| GFR (mL/min/1.73 m2) ?| With Kidney Damage ?| ?Without Kidney Damage+ --------+ --------+ +| ?>90 ?| ?Stage one ?| ? Normal ?+ ---+ ---+ -------+| ?60-89 ?| ?Stage two ?| ? Decreased GFR ? + --+ --+ ------+| ?30-59 ?| ?Stage three ?| ? Stage three ? + --+ --+ ------+| ?15-29 ?| ?Stage four ? | ? Stage four ?+ ---+ ---+ -------+| ?<15 (or dialysis) ? ?| ?Stage five ? | ? Stage five ?+ ---+ ---+ -------+ *Each stage assumes the associated GFR level has been in effect for at least three months. ?Stages 1 to 5, with or without kidney disease, indicate chronic kidney disease. Notes: Determination of stages one and two (with eGFR >59mL/min/1.73 m2) requires estimation of kidney damage for at least three months as defined by structural or functional abnormalities of the kidney, manifested by either:Pathological abnormalities or Markers of kidney damage (including abnormalities in the composition of the blood or urine or abnormalities in imaging tests). Lab Interpretation Abnormal (test code = 59644-5) [facility], [facility]lycerides, HDL[facility] - [id number] 12:55:53 Test Item Value Reference Range Interpretation Comments CHOL (test code = 82 mg/dL 120-200 L 2628595177) HDL (test code = 28 mg/dL >40 L 2486009048) HDLC RATIO (test code = See_Comment [Au tomated message] 1165122852) The system [employer] generated this result transmitted ref erence range: <=5.0. T he reference range was not used to int erpret this result as normal/abnormal . TRIG (test code = 88 mg/dL 30-170 2719826593) LDL CHOL (test code = 36 mg/dL See_Comment [Auto mated message] 60739-4) The system [employer] generated this result transmitted ref erence range: <=160. T he reference range was not used to int erpret this result as normal/abnormal . VLDL (test code = 18 mg/dL 5-60 8791051714) Lab Interpretation (test Abnormal code = 03967-0) [facility] Ch[facility], Triglycerides, HDL) - [id number] 12:55:53 Test Item Value Reference Range Interpretation Comments CHOL (test code = 82 mg/dL 120-200 L 4796847308) HDL (test code = 28 mg/dL >40 L 9144733199) HDLC RATIO (test code = See_Comment [Au tomated message] 5377663324) The system [employer] generated this result transmitted ref erence range: <=5.0. T he reference range was not used to int erpret this result as normal/abnormal . TRIG (test code = 88 mg/dL 30-170 7986126872) LDL CHOL (test code = 36 mg/dL See_Comment [Auto mated message] 78373-0) The system [employer] generated this result transmitted ref erence range: <=160. T he reference range was not used to int erpret this result as normal/abnormal . VLDL (test code = 18 mg/dL 5-60 7222217460) Lab Interpretation (test Abnormal code = 35591-1) [facility], [facility]iglycerides, HDL[facility] - [id number] 12:55:53 Test Item Value Reference Range Interpretation Comments CHOL (test code = 82 mg/dL 120-200 L 0437179327) HDL (test code = 28 mg/dL >40 L 4178137714) HDLC RATIO (test code = See_Comment [Au tomated message] 9578056850) The system [employer] generated this result transmitted ref erence range: <=5.0. T he reference range was not used to int erpret this result as normal/abnormal . TRIG (test code = 88 mg/dL 30-170 8871402777) LDL CHOL (test code = 36 mg/dL See_Comment [Auto mated message] 15335-3) The system [employer] generated this result transmitted ref erence range: <=160. T he reference range was not used to int erpret this result as normal/abnormal . VLDL (test code = 18 mg/dL 5-60 8496123695) Lab Interpretation (test Abnormal code = 73195-1) [facility] 12:55:32 Test Item Value Reference Range Interpretation Comments MAGNESIUM (test code = 7622828498) 1.6 mg/dL 1.7-2.4 L Lab Interpretation (test code = Abnormal 08052-6) [facility]32 Test Item Value Reference Range Interpretation Comments MAGNESIUM (test code = 0335071058) 1.6 mg/dL 1.7-2.4 L Lab Interpretation (test code = Abnormal 06428-5) [facility]12 Test Item Value Reference Range Interpretation Comments PHOSPHORUS (test code = 6155751901) 2.5 mg/dL 2.5-5.0 Lab Interpretation (test code = Normal 79554-9) [facility] 12[facility]:12 Test Item Value Reference Range Interpretation Comments PHOSPHORUS (test code = 0451050185) 2.5 mg/dL 2.5-5.0 Lab Interpretation (test code = Normal 77962-1) [facility] 12:[facility]:12 Test Item Value Reference Range Interpretation Comments PHOSPHORUS (test code = 7683261168) 2.5 mg/dL 2.5-5.0 Lab Interpretation (test code = Normal 90644-6) [facility] WITH [id number] 12:17:31 Test Item Value Reference Range Interpretation Comments WBC (test code = See_Comment H [Automated 6690-2) message] The sy stem which generated this result transmitted reference range : 4.20 - 10.70 10*3/?L. The reference range was not used to interpret this result as normal/abnormal . RBC (test code = See_Comment L [Automated 789-8) message] The sy stem which generated this result transmitted reference range : 4.26 - 5.52 10*6/?L. The reference range was not used to interpret this result as normal/abnormal . HGB (test code = 11.6 g/dL 12.2-16.4 L 718-7) HCT (test code = 34.7 % 38.4-49.3 L 4544-3) MCV (test code = 93.0 fL 81.7-95.6 787-2) MCH (test code = 31.1 pg 26.1-32.7 785-6) MCHC (test code = 33.4 g/dL 31.2-35.0 786-4) RDW-SD (test code = 45.4 fL 38.5-51.6 83773-8) RDW-CV (test code = 13.2 % 12.1-15.4 788-0) PLT (test code = See_Comment H [Automated 777-3) message] The sy stem which generated this result transmitted reference range : 150 - 328 10*3/ ?L. The reference r jalen was not used to interpret this result as normal/abnormal . MPV (test code = 9.3 fL 9.8-13.0 L 04862-5) NRBC/100 WBC (test See_Comment [Automat ed code = 0734900662) message] The system which generated this result transmitted reference range : 0.0 - 10.0 /100 WBCs. The refer ence range was not u sed to interpret th is result as normal/abnormal . NRBC x10^3 (test code <0.01 See_Comment [Auto mated = 1612833479) message] The s ystem which generated this result transmitted reference range : 10*3/?L. The reference range was not used to interpret this result as normal/abnormal . GRAN MAT (NEUT) % 80.8 % (test code = 770-8) IMM GRAN % (test code 0.40 % = 2282764644) LYMPH % (test code = 11.0 % 736-9) MONO % (test code = 5.4 % 5905-5) EOS % (test code = 1.9 % 713-8) BASO % (test code = 0.5 % 706-2) GRAN MAT x10^3(ANC) 9.07 10*3/uL 1.99-6.95 H (test code = 0019011920) IMM GRAN x10^3 (test 0.05 10*3/uL 0.00-0.06 code = 1634131546) LYMPH x10^3 (test code 1.24 10*3/uL 1.09-3.23 = 731-0) MONO x10^3 (test code 0.61 10*3/uL 0.36-1.02 = 742-7) EOS x10^3 (test code = 0.21 10*3/uL 0.06-0.53 711-2) BASO x10^3 (test code 0.06 10*3/uL 0.01-0.09 = 704-7) Lab Interpretation Abnormal (test code = 56628-4) [facility] WITH [id number] 12:17:31 Test Item Value Reference Range Interpretation Comments WBC (test code = See_Comment H [Automated 6690-2) message] The sy stem which generated this result transmitted reference range : 4.20 - 10.70 10*3/?L. The reference range was not used to interpret this result as normal/abnormal . RBC (test code = See_Comment L [Automated 789-8) message] The sy stem which generated this result transmitted reference range : 4.26 - 5.52 10*6/?L. The reference range was not used to interpret this result as normal/abnormal . HGB (test code = 11.6 g/dL 12.2-16.4 L 718-7) HCT (test code = 34.7 % 38.4-49.3 L 4544-3) MCV (test code = 93.0 fL 81.7-95.6 787-2) MCH (test code = 31.1 pg 26.1-32.7 785-6) MCHC (test code = 33.4 g/dL 31.2-35.0 786-4) RDW-SD (test code = 45.4 fL 38.5-51.6 11025-2) RDW-CV (test code = 13.2 % 12.1-15.4 788-0) PLT (test code = See_Comment H [Automated 777-3) message] The sy stem which generated this result transmitted reference range : 150 - 328 10*3/ ?L. The reference r jalen was not used to interpret this result as normal/abnormal . MPV (test code = 9.3 fL 9.8-13.0 L 47020-3) NRBC/100 WBC (test See_Comment [Automat ed code = 5465690469) message] The system which generated this result transmitted reference range : 0.0 - 10.0 /100 WBCs. The refer ence range was not u sed to interpret th is result as normal/abnormal . NRBC x10^3 (test code <0.01 See_Comment [Auto mated = 8858411822) message] The s ystem which generated this result transmitted reference range : 10*3/?L. The reference range was not used to interpret this result as normal/abnormal . GRAN MAT (NEUT) % 80.8 % (test code = 770-8) IMM GRAN % (test code 0.40 % = 0072513821) LYMPH % (test code = 11.0 % 736-9) MONO % (test code = 5.4 % 5905-5) EOS % (test code = 1.9 % 713-8) BASO % (test code = 0.5 % 706-2) GRAN MAT x10^3(ANC) 9.07 10*3/uL 1.99-6.95 H (test code = 8376879820) IMM GRAN x10^3 (test 0.05 10*3/uL 0.00-0.06 code = 2237683082) LYMPH x10^3 (test code 1.24 10*3/uL 1.09-3.23 = 731-0) MONO x10^3 (test code 0.61 10*3/uL 0.36-1.02 = 742-7) EOS x10^3 (test code = 0.21 10*3/uL 0.06-0.53 711-2) BASO x10^3 (test code 0.06 10*3/uL 0.01-0.09 = 704-7) Lab Interpretation Abnormal (test code = 92210-8) [facility] 01:47:27 Test Item Value Reference Range Interpretation Comments HGB A1C (test code = 5.9 % 4.0-5.7 H 4548-4) POP (test code = POP) Reference RangesNormal: <5.7%Prediabetes: 5.7 - 6.4%Diabetes: > 6.5% Lab Interpretation (test Abnormal code = 69000-5) [facility] 01:47:27 Test Item Value Reference Range Interpretation Comments HGB A1C (test code = 5.9 % 4.0-5.7 H 4548-4) POP (test code = POP) Reference RangesNormal: <5.7%Prediabetes: 5.7 - 6.4%Diabetes: > 6.5% Lab Interpretation (test Abnormal code = 67854-4) [facility] 01:47:27 Test Item Value Reference Range Interpretation Comments HGB A1C (test code = 5.9 % 4.0-5.7 H 4548-4) POP (test code = POP) Reference RangesNormal: <5.7%Prediabetes: 5.7 - 6.4%Diabetes: > 6.5% Lab Interpretation (test Abnormal code = 11245-5) [facility] GLUCOSE (AUTOMATED)2021-03-16 23:09:50 Test Item Value Reference Range Interpretation Comments POCT GLU (test code = 5615630696) 134 mg/dL 70-110 H Lab Interpretation (test code = Abnormal 95308-8) [facility] GLUCOSE (AUTOMATED)2021-03-16 23:09:50 Test Item Value Reference Range Interpretation Comments POCT GLU (test code = 0939049291) 134 mg/dL 70-110 H Lab Interpretation (test code = Abnormal 47516-0) [facility] POSITIVE BLOOD PATHOGENS DNA [id number] 20:26:17 Test Item Value Reference Range Interpretation Comments Gram Positive Blood No organisms included in Pathogens DNA the Blood DNA Probe test Probe-Aerobic (test panel were detected. code = 40962-1) Further identification workup to be performed by culture testing methods. POP (test code = See blood culture result POP) for additional information. Testing included eleven identification and three resistancemarker targets. [facility] POSITIVE BLOOD PATHOGENS DNA [id number] 20:26:17 Test Item Value Reference Range Interpretation Comments Gram Positive Blood No organisms included in Pathogens DNA the Blood DNA Probe test Probe-Aerobic (test panel were detected. code = 82548-2) Further identification workup to be performed by culture testing methods. POP (test code = See blood culture result POP) for additional information. Testing included eleven identification and three resistancemarker targets. [facility] POSITIVE BLOOD PATHOGENS DNA [id number] 20:26:17 Test Item Value Reference Range Interpretation Comments Gram Positive Blood No organisms included in Pathogens DNA the Blood DNA Probe test Probe-Aerobic (test panel were detected. code = 11419-7) Further identification workup to be performed by culture testing methods. POP (test code = See blood culture result POP) for additional information. Testing included eleven identification and three resistancemarker targets. [facility] GLUCOSE (AUTOMATED)2021-03-16 18:07:59 Test Item Value Reference Range Interpretation Comments POCT GLU (test code = 8367846926) 125 mg/dL 70-110 H Lab Interpretation (test code = Abnormal 58580-8) [facility] GLUCOSE (AUTOMATED)2021-03-16 18:07:59 Test Item Value Reference Range Interpretation Comments POCT GLU (test code = 5225326371) 125 mg/dL 70-110 H Lab Interpretation (test code = Abnormal 49168-9) [facility] METABOLIC PANEL (NA, K, CL, CO2, GLUCOSE, BUN, CREATININE, CA)2021-03-16 17:53:54 Test Item Value Reference Range Interpretation Comments NA (test code = 132 mmol/L 135-145 L 0377991734) K (test code = 3.0 mmol/L 3.5-5.0 L 4144733559) CL (test code = 95 mmol/L 98-108 L 5278583282) CO2 TOTAL (test code = 29 mmol/L 23-31 5494265316) AGAP (test code = 2-16 0030134355) BUN (test code = 14 mg/dL 7-23 6044125617) GLUCOSE (test code = 136 mg/dL 70-110 H 5731506096) CREATININE (test code = 0.79 mg/dL 0.60-1.25 0109352694) CALCIUM (test code = 9.6 mg/dL 8.6-10.6 1208942052) eGFR (test code = mL/min/1.73m2 3512851958) POP (test code = POP) Association of Glomerular Filtration Rate (GFR) and Staging of Kidney Disease* + --+ --+ ------+| GFR (mL/min/1.73 m2) ?| With Kidney Damage ?| ?Without Kidney Damage+ --------+ --------+ +| ?>90 ?| ?Stage one ?| ? Normal ?+ ---+ ---+ -------+| ?60-89 ?| ?Stage two ?| ? Decreased GFR ? + --+ --+ ------+| ?30-59 ?| ?Stage three ?| ? Stage three ? + --+ --+ ------+| ?15-29 ?| ?Stage four ? | ? Stage four ?+ ---+ ---+ -------+| ?<15 (or dialysis) ? ?| ?Stage five ? | ? Stage five ?+ ---+ ---+ -------+ *Each stage assumes the associated GFR level has been in effect for at least three months. ?Stages 1 to 5, with or without kidney disease, indicate chronic kidney disease. Notes: Determination of stages one and two (with eGFR >59mL/min/1.73 m2) requires estimation of kidney damage for at least three months as defined by structural or functional abnormalities of the kidney, manifested by either:Pathological abnormalities or Markers of kidney damage (including abnormalities in the composition of the blood or urine or abnormalities in imaging tests). Lab Interpretation Abnormal (test code = 73107-4) [facility] METABOLIC PANEL (NA, K, CL, CO2, GLUCOSE, BUN, CREATININE, CA)2021-03-16 17:53:54 Test Item Value Reference Range Interpretation Comments NA (test code = 132 mmol/L 135-145 L 5956839238) K (test code = 3.0 mmol/L 3.5-5.0 L 3364386387) CL (test code = 95 mmol/L 98-108 L 9902642044) CO2 TOTAL (test code = 29 mmol/L 23-31 0877681684) AGAP (test code = 2-16 0912672759) BUN (test code = 14 mg/dL 7-23 2029610886) GLUCOSE (test code = 136 mg/dL 70-110 H 3077895270) CREATININE (test code = 0.79 mg/dL 0.60-1.25 8820352377) CALCIUM (test code = 9.6 mg/dL 8.6-10.6 0098232220) eGFR (test code = mL/min/1.73m2 6957313608) POP (test code = POP) Association of Glomerular Filtration Rate (GFR) and Staging of Kidney Disease* + --+ --+ ------+| GFR (mL/min/1.73 m2) ?| With Kidney Damage ?| ?Without Kidney Damage+ --------+ --------+ +| ?>90 ?| ?Stage one ?| ? Normal ?+ ---+ ---+ -------+| ?60-89 ?| ?Stage two ?| ? Decreased GFR ? + --+ --+ ------+| ?30-59 ?| ?Stage three ?| ? Stage three ? + --+ --+ ------+| ?15-29 ?| ?Stage four ? | ? Stage four ?+ ---+ ---+ -------+| ?<15 (or dialysis) ? ?| ?Stage five ? | ? Stage five ?+ ---+ ---+ -------+ *Each stage assumes the associated GFR level has been in effect for at least three months. ?Stages 1 to 5, with or without kidney disease, indicate chronic kidney disease. Notes: Determination of stages one and two (with eGFR >59mL/min/1.73 m2) requires estimation of kidney damage for at least three months as defined by structural or functional abnormalities of the kidney, manifested by either:Pathological abnormalities or Markers of kidney damage (including abnormalities in the composition of the blood or urine or abnormalities in imaging tests). Lab Interpretation Abnormal (test code = 37420-6) [facility]:33:30 Test Item Value Reference Range Interpretation Comments Procalcitonin (test 0.05 ng/mL <0.07 code = 8650116212) POP (test code = POP) INTERPRETATION OF PROCALCITONIN RESULTS IN ADULTS >= 18 YEARS OF AGE Initiation and discontinuation of antibiotics on patients with suspected or confirmed Lower Respiratory Tract Infection in Adults >= 18 years of age. + +-------- --------+ + -----+|Procalcitonin |Interpretation ?|Antibiotic ? ? |Considerations ? |ng/mL ? | ?|recommendation | ? + +-------- --------+ + -----+| <0.1 ? | Bacterial ? ? ?| Strongly ? ? ?| ? | ?| infection very | discouraged ? | Overruling: ? | ?| unlikely ? ? ? | ? | ? Clinically unstable ? ? ? + +-------- --------+ + ? High risk for adverse ? ? | <0.25 ?| Bacterial ? ? ?| Discouraged ? | ? outcome ? | ?| infection ? ? ?| ? | ? SEE IMPORTANT NOTE ?| ?| unlikely ? ? ? | ? | ? + +-------- --------+ + -----+| >=0.25 ? ? ? | Bacterial ? ? ?| Encouraged ? ?| ? | ?| infection ? ? ?| ? | ? | ?| likely ? | ? | Consider treatment failure ?+ +------- ---------+ -+ if levels does not decrease | >0.5 ? | Bacterial ? ? ?| Strongly ? ? ?| appropriately ? | ?| infection very | encouraged ? ?| ? | ?| likely ? | ? | ? + +-------- --------+ + -----+ Discontinuation of antibiotics in high-acuity patients with suspected or confirmed sepsis in Adults >= 18 years of age. + +-------- --------+ + -----+|Procalcitonin |Interpretation ?|Antibiotic ? ? |Considerations ? |ng/mL ? | ?|recommendation | ? + +-------- --------+ + -----+| <0.25 ?| Bacterial ? ? ?| Strongly ? ? ?| ? | ?| infection very | discouraged ? | Overruling: ? | ?| unlikely ? ? ? | ? | ? Clinically unstable ? ? ? + +-------- --------+ + ? High risk for adverse ? ? | <0.5 or drop | Bacterial ? ? ?| Discouraged ? | ? outcome ? | >80% from ? ?| infection ? ? ?| ? | ? SEE IMPORTANT NOTE ?| highest PCT ?| unlikely ? ? ? | ? | ? | level ?| ?| ? | ? + +-------- --------+ + -----+| >=0.5 ?| Bacterial ? ? ?| Encouraged ? ?| ? | ?| infection ? ? ?| ? | ? | ?| likely ? | ? | Consider treatment failure ?+ +------- ---------+ -+ if levels does not decrease | >1.0 ? | Bacterial ? ? ?| Strongly ? ? ?| appropriately ? | ?| infection very | encouraged ? ?| ? | ?| likely ? | ? | ? + +-------- --------+ + -----+ Percentage of drop of Procalcitonin calculation for Discontinuation of antibiotics in high-acuity patients with suspected or confirmed sepsis in Adults >= 18 years of age. ? Procalcitonin highest{}-Procalcitonin current{}Delta Procalcitonin = x100% ? Procalcitonin current {} IMPORTANT NOTE: Procalcitonin may be elevated without bacterial infection by physiologic stress related to trauma, brunson, chronic dialysis, metastatic cancer, surgery in the past seven days, malaria, some fungal infections, and some forms of vasculitis. The interpretation algorithm may not apply to patients with immunosuppression (equivalent of >10 mg of prednisone daily), HIV with CD4 cell count < 350 cells/mm3, active malignancy on systemic chemotherapy, solid organ transplant or hematopoietic stem cell transplantation, or hospital acquired pneumonia. Additionally, some clinical trials of procalcitonin have excluded patients with shock requiring vasopressor use, acute respiratory failure requiring mechanical ventilation, or those with known lung abscess/empyema. For further information please refer to:[email or web address] Lab Interpretation Normal (test code = 99090-2) [facility]:33:30 Test Item Value Reference Range Interpretation Comments Procalcitonin (test 0.05 ng/mL <0.07 code = 6987512577) POP (test code = POP) INTERPRETATION OF PROCALCITONIN RESULTS IN ADULTS >= 18 YEARS OF AGE Initiation and discontinuation of antibiotics on patients with suspected or confirmed Lower Respiratory Tract Infection in Adults >= 18 years of age. + +-------- --------+ + -----+|Procalcitonin |Interpretation ?|Antibiotic ? ? |Considerations ? |ng/mL ? | ?|recommendation | ? + +-------- --------+ + -----+| <0.1 ? | Bacterial ? ? ?| Strongly ? ? ?| ? | ?| infection very | discouraged ? | Overruling: ? | ?| unlikely ? ? ? | ? | ? Clinically unstable ? ? ? + +-------- --------+ + ? High risk for adverse ? ? | <0.25 ?| Bacterial ? ? ?| Discouraged ? | ? outcome ? | ?| infection ? ? ?| ? | ? SEE IMPORTANT NOTE ?| ?| unlikely ? ? ? | ? | ? + +-------- --------+ + -----+| >=0.25 ? ? ? | Bacterial ? ? ?| Encouraged ? ?| ? | ?| infection ? ? ?| ? | ? | ?| likely ? | ? | Consider treatment failure ?+ +------- ---------+ -+ if levels does not decrease | >0.5 ? | Bacterial ? ? ?| Strongly ? ? ?| appropriately ? | ?| infection very | encouraged ? ?| ? | ?| likely ? | ? | ? + +-------- --------+ + -----+ Discontinuation of antibiotics in high-acuity patients with suspected or confirmed sepsis in Adults >= 18 years of age. + +-------- --------+ + -----+|Procalcitonin |Interpretation ?|Antibiotic ? ? |Considerations ? |ng/mL ? | ?|recommendation | ? + +-------- --------+ + -----+| <0.25 ?| Bacterial ? ? ?| Strongly ? ? ?| ? | ?| infection very | discouraged ? | Overruling: ? | ?| unlikely ? ? ? | ? | ? Clinically unstable ? ? ? + +-------- --------+ + ? High risk for adverse ? ? | <0.5 or drop | Bacterial ? ? ?| Discouraged ? | ? outcome ? | >80% from ? ?| infection ? ? ?| ? | ? SEE IMPORTANT NOTE ?| highest PCT ?| unlikely ? ? ? | ? | ? | level ?| ?| ? | ? + +-------- --------+ + -----+| >=0.5 ?| Bacterial ? ? ?| Encouraged ? ?| ? | ?| infection ? ? ?| ? | ? | ?| likely ? | ? | Consider treatment failure ?+ +------- ---------+ -+ if levels does not decrease | >1.0 ? | Bacterial ? ? ?| Strongly ? ? ?| appropriately ? | ?| infection very | encouraged ? ?| ? | ?| likely ? | ? | ? + +-------- --------+ + -----+ Percentage of drop of Procalcitonin calculation for Discontinuation of antibiotics in high-acuity patients with suspected or confirmed sepsis in Adults >= 18 years of age. ? Procalcitonin highest{}-Procalcitonin current{}Delta Procalcitonin = x100% ? Procalcitonin current {} IMPORTANT NOTE: Procalcitonin may be elevated without bacterial infection by physiologic stress related to trauma, brunson, chronic dialysis, metastatic cancer, surgery in the past seven days, malaria, some fungal infections, and some forms of vasculitis. The interpretation algorithm may not apply to patients with immunosuppression (equivalent of >10 mg of prednisone daily), HIV with CD4 cell count < 350 cells/mm3, active malignancy on systemic chemotherapy, solid organ transplant or hematopoietic stem cell transplantation, or hospital acquired pneumonia. Additionally, some clinical trials of procalcitonin have excluded patients with shock requiring vasopressor use, acute respiratory failure requiring mechanical ventilation, or those with known lung abscess/empyema. For further information please refer to:[email or web address] Lab Interpretation Normal (test code = 24170-6) [facility]:33:30 Test Item Value Reference Range Interpretation Comments Procalcitonin (test 0.05 ng/mL <0.07 code = 7148147630) POP (test code = POP) INTERPRETATION OF PROCALCITONIN RESULTS IN ADULTS >= 18 YEARS OF AGE Initiation and discontinuation of antibiotics on patients with suspected or confirmed Lower Respiratory Tract Infection in Adults >= 18 years of age. + +-------- --------+ + -----+|Procalcitonin |Interpretation ?|Antibiotic ? ? |Considerations ? |ng/mL ? | ?|recommendation | ? + +-------- --------+ + -----+| <0.1 ? | Bacterial ? ? ?| Strongly ? ? ?| ? | ?| infection very | discouraged ? | Overruling: ? | ?| unlikely ? ? ? | ? | ? Clinically unstable ? ? ? + +-------- --------+ + ? High risk for adverse ? ? | <0.25 ?| Bacterial ? ? ?| Discouraged ? | ? outcome ? | ?| infection ? ? ?| ? | ? SEE IMPORTANT NOTE ?| ?| unlikely ? ? ? | ? | ? + +-------- --------+ + -----+| >=0.25 ? ? ? | Bacterial ? ? ?| Encouraged ? ?| ? | ?| infection ? ? ?| ? | ? | ?| likely ? | ? | Consider treatment failure ?+ +------- ---------+ -+ if levels does not decrease | >0.5 ? | Bacterial ? ? ?| Strongly ? ? ?| appropriately ? | ?| infection very | encouraged ? ?| ? | ?| likely ? | ? | ? + +-------- --------+ + -----+ Discontinuation of antibiotics in high-acuity patients with suspected or confirmed sepsis in Adults >= 18 years of age. + +-------- --------+ + -----+|Procalcitonin |Interpretation ?|Antibiotic ? ? |Considerations ? |ng/mL ? | ?|recommendation | ? + +-------- --------+ + -----+| <0.25 ?| Bacterial ? ? ?| Strongly ? ? ?| ? | ?| infection very | discouraged ? | Overruling: ? | ?| unlikely ? ? ? | ? | ? Clinically unstable ? ? ? + +-------- --------+ + ? High risk for adverse ? ? | <0.5 or drop | Bacterial ? ? ?| Discouraged ? | ? outcome ? | >80% from ? ?| infection ? ? ?| ? | ? SEE IMPORTANT NOTE ?| highest PCT ?| unlikely ? ? ? | ? | ? | level ?| ?| ? | ? + +-------- --------+ + -----+| >=0.5 ?| Bacterial ? ? ?| Encouraged ? ?| ? | ?| infection ? ? ?| ? | ? | ?| likely ? | ? | Consider treatment failure ?+ +------- ---------+ -+ if levels does not decrease | >1.0 ? | Bacterial ? ? ?| Strongly ? ? ?| appropriately ? | ?| infection very | encouraged ? ?| ? | ?| likely ? | ? | ? + +-------- --------+ + -----+ Percentage of drop of Procalcitonin calculation for Discontinuation of antibiotics in high-acuity patients with suspected or confirmed sepsis in Adults >= 18 years of age. ? Procalcitonin highest{}-Procalcitonin current{}Delta Procalcitonin = x100% ? Procalcitonin current {} IMPORTANT NOTE: Procalcitonin may be elevated without bacterial infection by physiologic stress related to trauma, brunson, chronic dialysis, metastatic cancer, surgery in the past seven days, malaria, some fungal infections, and some forms of vasculitis. The interpretation algorithm may not apply to patients with immunosuppression (equivalent of >10 mg of prednisone daily), HIV with CD4 cell count < 350 cells/mm3, active malignancy on systemic chemotherapy, solid organ transplant or hematopoietic stem cell transplantation, or hospital acquired pneumonia. Additionally, some clinical trials of procalcitonin have excluded patients with shock requiring vasopressor use, acute respiratory failure requiring mechanical ventilation, or those with known lung abscess/empyema. For further information please refer to:[email or web address] Lab Interpretation Normal (test code = 29262-3) [facility]2021-12-06 14:05:27 Test Item Value Reference Range Interpretation Comments MAGNESIUM (test code = 2748605745) 1.7 mg/dL 1.7-2.4 Lab Interpretation (test code = Normal 68627-2) [facility]2021-12-06 14:05:27 Test Item Value Reference Range Interpretation Comments MAGNESIUM (test code = 2749248377) 1.7 mg/dL 1.7-2.4 Lab Interpretation (test code = Normal 11846-8) [facility] GLUCOSE (AUTOMATED)2021-03-16 13:56:02 Test Item Value Reference Range Interpretation Comments POCT GLU (test code = 2358016533) 126 mg/dL 70-110 H Lab Interpretation (test code = Abnormal 59602-0) [facility] GLUCOSE (AUTOMATED)2021-03-16 13:56:02 Test Item Value Reference Range Interpretation Comments POCT GLU (test code = 1227133423) 126 mg/dL 70-110 H Lab Interpretation (test code = Abnormal 32156-5) [facility] with Khamhblkytwz2806-04-25 12:25:24 Test Item Value Reference Range Interpretation Comments WBC (test code = See_Comment H [Automated 6690-2) message] The system which generated this result transmit qing reference range : 4.20 - 10.70 10*3/?L. The reference range was not used to interpret this result as normal/abnormal . RBC (test code = See_Comment L [Automated 789-8) message] The system which generated this result transmit qing reference range : 4.26 - 5.52 10*6/?L. The reference range was not used to interpret this result as normal/abnormal . HGB (test code = 12.8 g/dL 12.2-16.4 718-7) HCT (test code = 38.0 % 38.4-49.3 L 4544-3) MCV (test code = 90.9 fL 81.7-95.6 787-2) MCH (test code = 30.6 pg 26.1-32.7 785-6) MCHC (test code = 33.7 g/dL 31.2-35.0 786-4) RDW-SD (test code = 43.7 fL 38.5-51.6 55891-2) RDW-CV (test code = 13.2 % 12.1-15.4 788-0) PLT (test code = See_Comment H [Automated 777-3) message] The system which generated this result transmit qing reference range : 150 - 328 10*3/ ?L. The reference range was not u sed to interpret th is result as normal/abnormal . MPV (test code = 9.2 fL 9.8-13.0 L 08110-0) NRBC/100 WBC (test See_Comment [Automat ed code = 7970340645) message] The system which generated this result transmit qing reference range : 0.0 - 10.0 /100 WBCs. The reference range was not used to interpret this result as normal/abnormal . NRBC x10^3 (test code <0.01 See_Comment [Auto mated = [id number]) message] The system which generated this result transmit qing reference range : 10*3/?L. The reference range was not used to interpret this result as normal/abnormal . GRAN MAT (NEUT) % 85.4 % (test code = 770-8) IMM GRAN % (test code 0.70 % = 6890049394) LYMPH % (test code = 8.2 % 736-9) MONO % (test code = 4.5 % 5905-5) EOS % (test code = 0.8 % 713-8) BASO % (test code = 0.4 % 706-2) GRAN MAT x10^3(ANC) 13.38 10*3/uL 1.99-6.95 H (test code = 0427792909) IMM GRAN x10^3 (test 0.11 10*3/uL 0.00-0.06 H code = 6410780573) LYMPH x10^3 (test code 1.29 10*3/uL 1.09-3.23 = 731-0) MONO x10^3 (test code 0.70 10*3/uL 0.36-1.02 = 742-7) EOS x10^3 (test code = 0.13 10*3/uL 0.06-0.53 711-2) BASO x10^3 (test code 0.06 10*3/uL 0.01-0.09 = 704-7) Lab Interpretation Abnormal (test code = 34744-9) [facility] with [id number] 12:25:24 Test Item Value Reference Range Interpretation Comments WBC (test code = See_Comment H [Automated 6690-2) message] The system which generated this result transmit qing reference range : 4.20 - 10.70 10*3/?L. The reference range was not used to interpret this result as normal/abnormal . RBC (test code = See_Comment L [Automated 789-8) message] The system which generated this result transmit qing reference range : 4.26 - 5.52 10*6/?L. The reference range was not used to interpret this result as normal/abnormal . HGB (test code = 12.8 g/dL 12.2-16.4 718-7) HCT (test code = 38.0 % 38.4-49.3 L 4544-3) MCV (test code = 90.9 fL 81.7-95.6 787-2) MCH (test code = 30.6 pg 26.1-32.7 785-6) MCHC (test code = 33.7 g/dL 31.2-35.0 786-4) RDW-SD (test code = 43.7 fL 38.5-51.6 43978-2) RDW-CV (test code = 13.2 % 12.1-15.4 788-0) PLT (test code = See_Comment H [Automated 777-3) message] The system which generated this result transmit qing reference range : 150 - 328 10*3/ ?L. The reference range was not u sed to interpret th is result as normal/abnormal . MPV (test code = 9.2 fL 9.8-13.0 L 94233-8) NRBC/100 WBC (test See_Comment [Automat ed code = 4960185676) message] The system which generated this result transmit qing reference range : 0.0 - 10.0 /100 WBCs. The reference range was not used to interpret this result as normal/abnormal . NRBC x10^3 (test code <0.01 See_Comment [Auto mated = 4340563737) message] The system which generated this result transmit qing reference range : 10*3/?L. The reference range was not used to interpret this result as normal/abnormal . GRAN MAT (NEUT) % 85.4 % (test code = 770-8) IMM GRAN % (test code 0.70 % = 4496312025) LYMPH % (test code = 8.2 % 736-9) MONO % (test code = 4.5 % 5905-5) EOS % (test code = 0.8 % 713-8) BASO % (test code = 0.4 % 706-2) GRAN MAT x10^3(ANC) 13.38 10*3/uL 1.99-6.95 H (test code = 2196594793) IMM GRAN x10^3 (test 0.11 10*3/uL 0.00-0.06 H code = 0204126959) LYMPH x10^3 (test code 1.29 10*3/uL 1.09-3.23 = 731-0) MONO x10^3 (test code 0.70 10*3/uL 0.36-1.02 = 742-7) EOS x10^3 (test code = 0.13 10*3/uL 0.06-0.53 711-2) BASO x10^3 (test code 0.06 10*3/uL 0.01-0.09 = 704-7) Lab Interpretation Abnormal (test code = 11932-9) [facility] Metabolic Panel (NA, K, CL, CO2, GLUCOSE, BUN, CREATININE, CA)2021-03-16 12:09:56 Test Item Value Reference Range Interpretation Comments NA (test code = 133 mmol/L 135-145 L 1160950662) K (test code = 2.8 mmol/L 3.5-5.0 LL 8198978380) CL (test code = 96 mmol/L 98-108 L 6220917103) CO2 TOTAL (test code = 28 mmol/L 23-31 9041197041) AGAP (test code = 2-16 3819335115) BUN (test code = 14 mg/dL 7-23 8453861183) GLUCOSE (test code = 137 mg/dL 70-110 H 5532265182) CREATININE (test code = 0.76 mg/dL 0.60-1.25 2129943928) CALCIUM (test code = 9.4 mg/dL 8.6-10.6 5952653574) eGFR (test code = mL/min/1.73m2 9749630275) POP (test code = POP) Association of Glomerular Filtration Rate (GFR) and Staging of Kidney Disease* + --+ --+ ------+| GFR (mL/min/1.73 m2) ?| With Kidney Damage ?| ?Without Kidney Damage+ --------+ --------+ +| ?>90 ?| ?Stage one ?| ? Normal ?+ ---+ ---+ -------+| ?60-89 ?| ?Stage two ?| ? Decreased GFR ? + --+ --+ ------+| ?30-59 ?| ?Stage three ?| ? Stage three ? + --+ --+ ------+| ?15-29 ?| ?Stage four ? | ? Stage four ?+ ---+ ---+ -------+| ?<15 (or dialysis) ? ?| ?Stage five ? | ? Stage five ?+ ---+ ---+ -------+ *Each stage assumes the associated GFR level has been in effect for at least three months. ?Stages 1 to 5, with or without kidney disease, indicate chronic kidney disease. Notes: Determination of stages one and two (with eGFR >59mL/min/1.73 m2) requires estimation of kidney damage for at least three months as defined by structural or functional abnormalities of the kidney, manifested by either:Pathological abnormalities or Markers of kidney damage (including abnormalities in the composition of the blood or urine or abnormalities in imaging tests). Lab Interpretation Abnormal (test code = 76573-4) [facility] Metabolic Panel (NA, K, CL, CO2, GLUCOSE, BUN, CREATININE, CA)2021-03-16 12:09:56 Test Item Value Reference Range Interpretation Comments NA (test code = 133 mmol/L 135-145 L 4558363122) K (test code = 2.8 mmol/L 3.5-5.0 LL 7157832439) CL (test code = 96 mmol/L 98-108 L 7766176497) CO2 TOTAL (test code = 28 mmol/L 23-31 2964359231) AGAP (test code = 2-16 5546522817) BUN (test code = 14 mg/dL 7-23 5380787545) GLUCOSE (test code = 137 mg/dL 70-110 H 3570580984) CREATININE (test code = 0.76 mg/dL 0.60-1.25 1088850226) CALCIUM (test code = 9.4 mg/dL 8.6-10.6 9403165656) eGFR (test code = mL/min/1.73m2 2344836598) POP (test code = POP) Association of Glomerular Filtration Rate (GFR) and Staging of Kidney Disease* + --+ --+ ------+| GFR (mL/min/1.73 m2) ?| With Kidney Damage ?| ?Without Kidney Damage+ --------+ --------+ +| ?>90 ?| ?Stage one ?| ? Normal ?+ ---+ ---+ -------+| ?60-89 ?| ?Stage two ?| ? Decreased GFR ? + --+ --+ ------+| ?30-59 ?| ?Stage three ?| ? Stage three ? + --+ --+ ------+| ?15-29 ?| ?Stage four ? | ? Stage four ?+ ---+ ---+ -------+| ?<15 (or dialysis) ? ?| ?Stage five ? | ? Stage five ?+ ---+ ---+ -------+ *Each stage assumes the associated GFR level has been in effect for at least three months. ?Stages 1 to 5, with or without kidney disease, indicate chronic kidney disease. Notes: Determination of stages one and two (with eGFR >59mL/min/1.73 m2) requires estimation of kidney damage for at least three months as defined by structural or functional abnormalities of the kidney, manifested by either:Pathological abnormalities or Markers of kidney damage (including abnormalities in the composition of the blood or urine or abnormalities in imaging tests). Lab Interpretation Abnormal (test code = 43596-1) [id number]ALB,T.PRO,BILI T,BU/BC,ALT,AST,ALK PHOS)2021-03-16 12:06:58 Test Item Value Reference Range Interpretation Comments TOTAL BILI (test code = 1863963797) 0.7 mg/dL 0.1-1.1 BILI UNCON (test code = 3569215056) 0.4 mg/dL 0.1-1.1 BILI CONJ (test code = 8040698196) 0.0 mg/dL 0.0-0.3 T PROTEIN (test code = 7458987036) 7.6 g/dL 6.3-8.2 ALBUMIN (test code = 7274064754) 4.0 g/dL 3.5-5.0 ALK PHOS (test code = 6560120678) 113 U/L 34-122 ALTv (test code = 1742-6) 23 U/L 5-50 AST(SGOT) (test code = 5774226254) 34 U/L 13-40 Lab Interpretation (test code = Normal 02357-4) [facility] (ALB,T.PRO,BILI T,BU/BC,ALT,AST,ALK PHOS)2021-03-16 12:06:58 Test Item Value Reference Range Interpretation Comments TOTAL BILI (test code = 5087664888) 0.7 mg/dL 0.1-1.1 BILI UNCON (test code = 3189912819) 0.4 mg/dL 0.1-1.1 BILI CONJ (test code = 3476131402) 0.0 mg/dL 0.0-0.3 T PROTEIN (test code = 8891118052) 7.6 g/dL 6.3-8.2 ALBUMIN (test code = 5883779063) 4.0 g/dL 3.5-5.0 ALK PHOS (test code = 0289498017) 113 U/L 34-122 ALTv (test code = 1742-6) 23 U/L 5-50 AST(SGOT) (test code = 1855277812) 34 U/L 13-40 Lab Interpretation (test code = Normal 98739-7) [facility] GLUCOSE (AUTOMATED)2021-03-15 22:30:07 Test Item Value Reference Range Interpretation Comments POCT GLU (test code = 9922662930) 115 mg/dL 70-110 H Lab Interpretation (test code = Abnormal 93787-9) [facility] GLUCOSE (AUTOMATED)2021-03-15 22:30:07 Test Item Value Reference Range Interpretation Comments POCT GLU (test code = 0292755462) 115 mg/dL 70-110 H Lab Interpretation (test code = Abnormal 80965-8) [facility]31 Test Item Value Reference Range Interpretation Comments PHOSPHORUS (test code = 2447367944) 4.0 mg/dL 2.5-5.0 Lab Interpretation (test code = Normal 88353-6) [facility]:08[facility]31 Test Item Value Reference Range Interpretation Comments PHOSPHORUS (test code = 4815904565) 4.0 mg/dL 2.5-5.0 Lab Interpretation (test code = Normal 51012-0) [facility] [id number]06 Test Item Value Reference Interpretation Comments Range TROPONIN I (test 0.011 ng/mL See_Comment [Automated code = 7373294145) message] The system which generated this result transmitted reference range : <=0.034. The reference range was not used to interpret this result as normal/abnormal . POP (test code = Reference (Normal) POP) Range (defined by the 99th percentile reference limit): <= 0.034 ng/mL Note: Cardiac troponin begins to rise 3-4 hours after the onset of ischemia. Repeat in 4-6 hours if the sample was drawn within 3-4 hours of the onset of the symptom and found normal. Diagnosis of myocardial injury is made with acute changes in cTn concentrations with at least one serial sample above the 99th percentile upper reference limit (URL), taken together with the patient's clinical presentation. Biotin has been reported to cause a negative bias, interpret results relative to patient's use of biotin. Lab Interpretation Normal (test code = 71879-0) [facility] [id number] 18:41:06 Test Item Value Reference Interpretation Comments Range TROPONIN I (test 0.011 ng/mL See_Comment [Automated code = 2474696433) message] The system which generated this result transmitted reference range : <=0.034. The reference range was not used to interpret this result as normal/abnormal . POP (test code = Reference (Normal) POP) Range (defined by the 99th percentile reference limit): <= 0.034 ng/mL Note: Cardiac troponin begins to rise 3-4 hours after the onset of ischemia. Repeat in 4-6 hours if the sample was drawn within 3-4 hours of the onset of the symptom and found normal. Diagnosis of myocardial injury is made with acute changes in cTn concentrations with at least one serial sample above the 99th percentile upper reference limit (URL), taken together with the patient's clinical presentation. Biotin has been reported to cause a negative bias, interpret results relative to patient's use of biotin. Lab Interpretation Normal (test code = 99644-8) [facility] [id number] 18:41:06 Test Item Value Reference Interpretation Comments Range TROPONIN I (test 0.011 ng/mL See_Comment [Automated code = 5141105178) message] The system which generated this result transmitted reference range : <=0.034. The reference range was not used to interpret this result as normal/abnormal . POP (test code = Reference (Normal) POP) Range (defined by the 99th percentile reference limit): <= 0.034 ng/mL Note: Cardiac troponin begins to rise 3-4 hours after the onset of ischemia. Repeat in 4-6 hours if the sample was drawn within 3-4 hours of the onset of the symptom and found normal. Diagnosis of myocardial injury is made with acute changes in cTn concentrations with at least one serial sample above the 99th percentile upper reference limit (URL), taken together with the patient's clinical presentation. Biotin has been reported to cause a negative bias, interpret results relative to patient's use of biotin. Lab Interpretation Normal (test code = 88228-8) [id number] 18:38:05 Test Item Value Reference Range Interpretation Comments NT-proBNP (test code 77 pg/mL See_Comment [Autom ated = 0965333778) message] The system which generated this result transmitted reference range : <=125. The reference range was not used to interpret this result as normal/abnormal . POP (test code = POP) Biotin has been reported to cause a negative bias, interpret results relative to patient's use of biotin. Lab Interpretation Normal (test code = 48145-5) [id number] 18:38:05 Test Item Value Reference Range Interpretation Comments NT-proBNP (test code 77 pg/mL See_Comment [Autom ated = 8471128885) message] The system which generated this result transmitted reference range : <=125. The reference range was not used to interpret this result as normal/abnormal . POP (test code = POP) Biotin has been reported to cause a negative bias, interpret results relative to patient's use of biotin. Lab Interpretation Normal (test code = 62679-9) [id number] 18:38:05 Test Item Value Reference Range Interpretation Comments NT-proBNP (test code 77 pg/mL See_Comment [Autom ated = 6441893945) message] The system which generated this result transmitted reference range : <=125. The reference range was not used to interpret this result as normal/abnormal . POP (test code = POP) Biotin has been reported to cause a negative bias, interpret results relative to patient's use of biotin. Lab Interpretation Normal (test code = 67447-0) [facility]2021-12-05 18:29:46 Test Item Value Reference Range Interpretation Comments MAGNESIUM (test code = 2110034785) 1.4 mg/dL 1.7-2.4 L Lab Interpretation (test code = Abnormal 31835-3) [facility] Test Item Value Reference Range Interpretation Comments MAGNESIUM (test code = 0275170645) 1.4 mg/dL 1.7-2.4 L Lab Interpretation (test code = Abnormal 42521-4) [facility] (60555[facility]2021-[facility]-15 18:29:26 Test Item Value Reference Range Interpretation Comments NA (test code = 134 mmol/L 135-145 L 6684141125) K (test code = 3.1 mmol/L 3.5-5.0 L 8576971756) CL (test code = 94 mmol/L 98-108 L 5217372225) CO2 TOTAL (test code = 29 mmol/L 23-31 8102986322) AGAP (test code = 2-16 7426514607) BUN (test code = 13 mg/dL 7-23 0888504696) GLUCOSE (test code = 126 mg/dL 70-110 H 0356109248) CREATININE (test code = 0.79 mg/dL 0.60-1.25 7768408497) TOTAL BILI (test code = 0.7 mg/dL 0.1-1.6 2035722345) CALCIUM (test code = 9.7 mg/dL 8.6-10.6 4167051413) T PROTEIN (test code = 7.5 g/dL 6.3-8.2 6901263210) ALBUMIN (test code = 4.1 g/dL 3.5-5.0 4688525204) ALK PHOS (test code = 110 U/L 34-122 2542863658) ALTv (test code = 22 U/L 5-50 1742-6) AST(SGOT) (test code = 25 U/L 13-40 7904921282) eGFR (test code = mL/min/1.73m2 5224486123) POP (test code = POP) Association of Glomerular Filtration Rate (GFR) and Staging of Kidney Disease* + --+ --+ ------+| GFR (mL/min/1.73 m2) ?| With Kidney Damage ?| ?Without Kidney Damage+ --------+ --------+ +| ?>90 ?| ?Stage one ?| ? Normal ?+ ---+ ---+ -------+| ?60-89 ?| ?Stage two ?| ? Decreased GFR ? + --+ --+ ------+| ?30-59 ?| ?Stage three ?| ? Stage three ? + --+ --+ ------+| ?15-29 ?| ?Stage four ? | ? Stage four ?+ ---+ ---+ -------+| ?<15 (or dialysis) ? ?| ?Stage five ? | ? Stage five ?+ ---+ ---+ -------+ *Each stage assumes the associated GFR level has been in effect for at least three months. ?Stages 1 to 5, with or without kidney disease, indicate chronic kidney disease. Notes: Determination of stages one and two (with eGFR >59mL/min/1.73 m2) requires estimation of kidney damage for at least three months as defined by structural or functional abnormalities of the kidney, manifested by either:Pathological abnormalities or Markers of kidney damage (including abnormalities in the composition of the blood or urine or abnormalities in imaging tests). Lab Interpretation Abnormal (test code = 09869-4) [facility]. METABOLIC PANEL (31860)2021-03-15 18:29:26 Test Item Value Reference Range Interpretation Comments NA (test code = 134 mmol/L 135-145 L 5489699687) K (test code = 3.1 mmol/L 3.5-5.0 L 6051120465) CL (test code = 94 mmol/L 98-108 L 3233966234) CO2 TOTAL (test code = 29 mmol/L 23-31 0379354745) AGAP (test code = 2-16 2061228008) BUN (test code = 13 mg/dL 7-23 4849111537) GLUCOSE (test code = 126 mg/dL 70-110 H 3526012339) CREATININE (test code = 0.79 mg/dL 0.60-1.25 1712151059) TOTAL BILI (test code = 0.7 mg/dL 0.1-1.6 0445789397) CALCIUM (test code = 9.7 mg/dL 8.6-10.6 3060801993) T PROTEIN (test code = 7.5 g/dL 6.3-8.2 1308067372) ALBUMIN (test code = 4.1 g/dL 3.5-5.0 8188835196) ALK PHOS (test code = 110 U/L 34-122 8236120392) ALTv (test code = 22 U/L 5-50 1742-6) AST(SGOT) (test code = 25 U/L 13-40 2122289672) eGFR (test code = mL/min/1.73m2 1673473805) POP (test code = POP) Association of Glomerular Filtration Rate (GFR) and Staging of Kidney Disease* + --+ --+ ------+| GFR (mL/min/1.73 m2) ?| With Kidney Damage ?| ?Without Kidney Damage+ --------+ --------+ +| ?>90 ?| ?Stage one ?| ? Normal ?+ ---+ ---+ -------+| ?60-89 ?| ?Stage two ?| ? Decreased GFR ? + --+ --+ ------+| ?30-59 ?| ?Stage three ?| ? Stage three ? + --+ --+ ------+| ?15-29 ?| ?Stage four ? | ? Stage four ?+ ---+ ---+ -------+| ?<15 (or dialysis) ? ?| ?Stage five ? | ? Stage five ?+ ---+ ---+ -------+ *Each stage assumes the associated GFR level has been in effect for at least three months. ?Stages 1 to 5, with or without kidney disease, indicate chronic kidney disease. Notes: Determination of stages one and two (with eGFR >59mL/min/1.73 m2) requires estimation of kidney damage for at least three months as defined by structural or functional abnormalities of the kidney, manifested by either:Pathological abnormalities or Markers of kidney damage (including abnormalities in the composition of the blood or urine or abnormalities in imaging tests). Lab Interpretation Abnormal (test code = 66789-3) [facility]. METABOLIC PANEL ([id number])2021-03-15 18:29:26 Test Item Value Reference Range Interpretation Comments NA (test code = 134 mmol/L 135-145 L 4863554282) K (test code = 3.1 mmol/L 3.5-5.0 L 0623581254) CL (test code = 94 mmol/L 98-108 L 0674839137) CO2 TOTAL (test code = 29 mmol/L 23-31 1006730295) AGAP (test code = 2-16 2081933290) BUN (test code = 13 mg/dL 7-23 5337846780) GLUCOSE (test code = 126 mg/dL 70-110 H 6081934163) CREATININE (test code = 0.79 mg/dL 0.60-1.25 9763659862) TOTAL BILI (test code = 0.7 mg/dL 0.1-1.6 2445272561) CALCIUM (test code = 9.7 mg/dL 8.6-10.6 3922083915) T PROTEIN (test code = 7.5 g/dL 6.3-8.2 3064143730) ALBUMIN (test code = 4.1 g/dL 3.5-5.0 1624268316) ALK PHOS (test code = 110 U/L 34-122 7249421973) ALTv (test code = 22 U/L 5-50 1742-6) AST(SGOT) (test code = 25 U/L 13-40 5037301085) eGFR (test code = mL/min/1.73m2 6565307680) POP (test code = POP) Association of Glomerular Filtration Rate (GFR) and Staging of Kidney Disease* + --+ --+ ------+| GFR (mL/min/1.73 m2) ?| With Kidney Damage ?| ?Without Kidney Damage+ --------+ --------+ +| ?>90 ?| ?Stage one ?| ? Normal ?+ ---+ ---+ -------+| ?60-89 ?| ?Stage two ?| ? Decreased GFR ? + --+ --+ ------+| ?30-59 ?| ?Stage three ?| ? Stage three ? + --+ --+ ------+| ?15-29 ?| ?Stage four ? | ? Stage four ?+ ---+ ---+ -------+| ?<15 (or dialysis) ? ?| ?Stage five ? | ? Stage five ?+ ---+ ---+ -------+ *Each stage assumes the associated GFR level has been in effect for at least three months. ?Stages 1 to 5, with or without kidney disease, indicate chronic kidney disease. Notes: Determination of stages one and two (with eGFR >59mL/min/1.73 m2) requires estimation of kidney damage for at least three months as defined by structural or functional abnormalities of the kidney, manifested by either:Pathological abnormalities or Markers of kidney damage (including abnormalities in the composition of the blood or urine or abnormalities in imaging tests). Lab Interpretation Abnormal (test code = 42848-1) [facility] WITH [id number] 18:16:23 Test Item Value Reference Range Interpretation Comments WBC (test code = See_Comment H [Automated 5790-2) message] The sy stem which generated this result transmitted reference range : 4.20 - 10.70 10*3/?L. The reference range was not used to interpret this result as normal/abnormal . RBC (test code = See_Comment [Automated 699-8) message] The sy stem which generated this result transmitted reference range : 4.26 - 5.52 10*6/?L. The reference range was not used to interpret this result as normal/abnormal . HGB (test code = 13.1 g/dL 12.2-16.4 718-7) HCT (test code = 39.2 % 38.4-49.3 4544-3) MCV (test code = 91.6 fL 81.7-95.6 787-2) MCH (test code = 30.6 pg 26.1-32.7 785-6) MCHC (test code = 33.4 g/dL 31.2-35.0 786-4) RDW-SD (test code = 44.5 fL 38.5-51.6 31577-6) RDW-CV (test code = 13.2 % 12.1-15.4 788-0) PLT (test code = See_Comment H [Automated 777-3) message] The sy stem which generated this result transmitted reference range : 150 - 328 10*3/ ?L. The reference r jalen was not used to interpret this result as normal/abnormal . MPV (test code = 9.0 fL 9.8-13.0 L 49494-2) NRBC/100 WBC (test See_Comment [Automat ed code = 4073867352) message] The system which generated this result transmitted reference range : 0.0 - 10.0 /100 WBCs. The refer ence range was not u sed to interpret th is result as normal/abnormal . NRBC x10^3 (test code <0.01 See_Comment [Auto mated = 2175605625) message] The s ystem which generated this result transmitted reference range : 10*3/?L. The reference range was not used to interpret this result as normal/abnormal . GRAN MAT (NEUT) % 72.0 % (test code = 770-8) IMM GRAN % (test code 0.60 % = 5375110986) LYMPH % (test code = 19.3 % 736-9) MONO % (test code = 4.8 % 5905-5) EOS % (test code = 2.5 % 713-8) BASO % (test code = 0.8 % 706-2) GRAN MAT x10^3(ANC) 7.83 10*3/uL 1.99-6.95 H (test code = 7601944265) IMM GRAN x10^3 (test 0.07 10*3/uL 0.00-0.06 H code = 2207312110) LYMPH x10^3 (test code 2.10 10*3/uL 1.09-3.23 = 731-0) MONO x10^3 (test code 0.52 10*3/uL 0.36-1.02 = 742-7) EOS x10^3 (test code = 0.27 10*3/uL 0.06-0.53 711-2) BASO x10^3 (test code 0.09 10*3/uL 0.01-0.09 = 704-7) Lab Interpretation Abnormal (test code = 14955-4) [facility] WITH [id number] 18:16:23 Test Item Value Reference Range Interpretation Comments WBC (test code = See_Comment H [Automated 6690-2) message] The sy stem which generated this result transmitted reference range : 4.20 - 10.70 10*3/?L. The reference range was not used to interpret this result as normal/abnormal . RBC (test code = See_Comment [Automated 789-8) message] The sy stem which generated this result transmitted reference range : 4.26 - 5.52 10*6/?L. The reference range was not used to interpret this result as normal/abnormal . HGB (test code = 13.1 g/dL 12.2-16.4 718-7) HCT (test code = 39.2 % 38.4-49.3 4544-3) MCV (test code = 91.6 fL 81.7-95.6 787-2) MCH (test code = 30.6 pg 26.1-32.7 785-6) MCHC (test code = 33.4 g/dL 31.2-35.0 786-4) RDW-SD (test code = 44.5 fL 38.5-51.6 33178-2) RDW-CV (test code = 13.2 % 12.1-15.4 788-0) PLT (test code = See_Comment H [Automated 777-3) message] The sy stem which generated this result transmitted reference range : 150 - 328 10*3/ ?L. The reference r jalen was not used to interpret this result as normal/abnormal . MPV (test code = 9.0 fL 9.8-13.0 L 67329-3) NRBC/100 WBC (test See_Comment [Automat ed code = 2284301274) message] The system which generated this result transmitted reference range : 0.0 - 10.0 /100 WBCs. The refer ence range was not u sed to interpret th is result as normal/abnormal . NRBC x10^3 (test code <0.01 See_Comment [Auto mated = 9098931823) message] The s ystem which generated this result transmitted reference range : 10*3/?L. The reference range was not used to interpret this result as normal/abnormal . GRAN MAT (NEUT) % 72.0 % (test code = 770-8) IMM GRAN % (test code 0.60 % = 2127241050) LYMPH % (test code = 19.3 % 736-9) MONO % (test code = 4.8 % 5905-5) EOS % (test code = 2.5 % 713-8) BASO % (test code = 0.8 % 706-2) GRAN MAT x10^3(ANC) 7.83 10*3/uL 1.99-6.95 H (test code = 8808359606) IMM GRAN x10^3 (test 0.07 10*3/uL 0.00-0.06 H code = 7218691924) LYMPH x10^3 (test code 2.10 10*3/uL 1.09-3.23 = 731-0) MONO x10^3 (test code 0.52 10*3/uL 0.36-1.02 = 742-7) EOS x10^3 (test code = 0.27 10*3/uL 0.06-0.53 711-2) BASO x10^3 (test code 0.09 10*3/uL 0.01-0.09 = 704-7) Lab Interpretation Abnormal (test code = 33935-0) [facility]; SPECIAL COAGULATION [id number] 02:27:27Related Clinical HistoryChesOrtiz is 65YO male with type 2 diabetes, hypertension, and hyperlipidemia presenting for follow-up after stroke on 02/03. Approximately one month prior to stroke, patient went to ER for left sided numbness and plavix 75mg was added to patient's antiplatelet therapy of aspirin 81mg, after which patient left AMA before stroke work-up. 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 ? BMI: 25.31 Medications: Clopidogrel 75mg, aspirin dipyridamole 25-200mg Family History: No known family history of coagulation disorder [facility] LABORATORY SERVICESPertinent Lab Results ? Ref. Range ? 03/03/21 ? 02/09/21 ? ? PT ? 10.1 - 12.6 Sec.? ? ?X ? 12.7 INR ?X ?1.1 ? ? ? aPTT ? 26 - 36 Sec. ?X ? Fibrinogen ? 167 - 453 mg/dL ? ? ?504 ?X ? Antithrombin Activity ? ?83 - 128% ?117 ? Protein C Activity ? ? ? 70 - 140% ?133 ? Free Protein S ? 55 - 146% ? 90 ? ? Lupus Anticoagulant (DRVVT) ? Negative Lupus Anticoagulant (PTT-LA) ?Negative ? Antiphospholipid Antibodies: ? Anti-Beta 2 Glycoprotein 1 ? IgG ?0.0 - 20.0 SGU ? ? ? 2.4 IgM?0.0 - 20.0 SMU ? ? ? 1.5 ? IgA ?0.0 - 20.0 RANI ? ? ?11.4 ?? Anticardiolipin ? IgG ?<10.0 GPL ?3.8 ? IgM ?<10.0 MPL ?0.7 ? IgA ?<15.0 APL ?5.0 ? ? ? Genetic Mutation Testing: ? Factor V Leiden ?Normal Prothrombin ?Normal ? Ref. Range ? 02/06/2021 VerifyNow Aspirin?<550 ? 384 ? VerifyNow P2Y12 ?<194 ? 171 [facility] LABORATORY SERVICESCoag DMT interpretation1) There is no identifiable hypercoagulable state. However, patient's risk factors for thrombosis are significant and include occupation, type 2 diabetes, hyperlipidemia, hypertension, history of tobacco use, and previous thrombotic events. ? 2) Research has identified multiple mechanisms by which aspirin may have decreased efficacy in diabetic patients. Care team may consider alternative antiplatelet therapies. ? EMILIO Law., DARY Leon., MS Ani. et al. Evaluationof low-dose aspirin for primary prevention of ischemic stroke among patients with diabetes: a retrospective cohort study. Diabetol Metab Syndr 7, 8 (2015). https://doi.org/10.1186/[email or web address]-g ? Juan R Case, Kasey A, Juan R P, Janak C, Juan R S, Pepe M, Daniel K, Annabella Y, Russell Morrell. Aspirin for primary prevention of cardiovascular events in patients with diabetes: A meta-analysis. Diabetes Res Clin Pract. 2010 May;87(2):211-8. doi: 10.1016/j.diabres.2009.09.029. Epub 2008Jan 31. PMID: 26252558. ? Meseret Hall., Frank, A.A., Danielle, W.A. et al. Aspirin effect on the incidence of major adverse cardiovascular events in patients with diabetes mellitus: a systematic review and meta-analysis. Cardiovasc Diabetol 10, 25 (20 11). https://doi.org/10.1186/[email or web address] ? Samy SH, Kimberly BRADLEY. Coagulation and fibrinolysis in diabetes. Diab Vasc Dis Res. 2010 Jan;7(4):260- 73. doi: 10.1177/9415743835980844. Epub 2009Dec 25. PMID: 63572597.[facility] LABORATORY SERVICESRecommendations1) No further coagulation testing is recommend ed at this time. ? 2) Independent of the normal test results this patient has an extremely positive history of thrombosis. Therefore, life-long anticoagulant therapy is consistent with guidelines. ?[facility] LABORATORY SERVICESUnBaylor Scott & White [facility] Center – PflugervilleMisc. Sendout- LUPUS ANTICOAGULANT REFLEXIVE PANEL ARUP [id number] 17:38:08 Test Item Value Reference Range Interpretation Comments Miscellaneous Test (test See scanned report code = 0551446071) Performing Lab (test code ARUP = 2974315293) [facility] CenterWB [id number] 21:10:01FOLATE RBCComment: Unable to calculate RBC-Folate due to high Folate concentration.[facility] LAB[facility]ATORY SERVICESUnBaylor Scott & White Medical Center – PflugervilleVITAMIN B1 (THIAMINE), WHOLE BLOOD 2021-03-07 15:44:45 Test Item Value Reference Range Interpretation Comments Vitamin B1, Whole 147 nmol/L 70-180 INTERPRETI VE INFORMATION: Blood (test code = Vitamin B 1, Whole Blood 53582-3) This assay zara ures the concentration o f thiamine diphosphate (TD P), the primary active form of vitamin B1. Dontrell roximately 90 percent of v itamin B1 present in whol e blood is TDP. Thiamine a nd thiamine monoph osphate, which comprise the remaining 10 pe rcent, are not measured. T his test was developed a nd its performance characteristics determined by [facility]. I t has not been cleared or approved by the US Food and Drug Administration. This test was performed i n a CLIA certified labor atory and is intended for clinical purposes.Perfor med By: [facility]i es[address] [place] [id number] aboratory Director: Elena Mansfield MD [facility] CenterANTICARDIOLIPIN [id number] 17:52:49 Test Item Value Reference Interpretation Comments Range Anticardiolipin See_Comment [Automated Antibody IgG (test message] The code = 8708208566) system [facility] generated this result transmitted reference range: 0.0 - 10.0 GPL. The reference range was not used to interpret this result as normal/abnormal . Anticardiolipin See_Comment [Automated Antibody IgM (test message] The code = 6626204540) system [facility] generated this result transmitted reference range: 0.0 - 10.0 MPL. The reference range was not used to interpret this result as normal/abnormal . Anticardiolipin See_Comment [Automated Antibody IgA (test message] The code = 6095404020) system [facility] generated this result transmitted reference range: 0.0 - 15.0 APL. The reference range was not used to interpret this result as normal/abnormal . POP (test code = Interpretation: ? POP) ? IgG ?IgM ?IgANegative Values: ? <10.0 ?<10.0 ? <15.0Indeterminate ("Esteban" zone) Values: ? ?10.0-19.0 ? ?10.0-25.0 ? ? 15.0-27.0Medium Values: ? 20.0-80.0 ? ?26.0-80.0 ? ? 28.0-80.0High Positive Values: ? >80.0 ?>80.0 ? >80.0 Note:Medium-high levels of anticardiolipin antibodies (mainly of the IgG isotype)have been associated with thrombosis, recurrent losses andthrombocytopenia in patients with Antiphospholipid Syndrome and SLE relateddisorders.It is recommended to repeat the test that give values in theIndeterminate "Esteban" zone range at a later date (i.e. 4-6 weeks) to confirmpositivity. ?Fede Weaver et al. ?J Thromb Haemost 2006; 4: 2210-4 Lab Interpretation Normal (test code = 23270-1) [facility] CenterANTI-B2 GLYCOPROTEIN I [id number] 17:52:49 Test Item Value Reference Interpretation Comments Range Anti-B2 See_Comment [Automated Glycoprotein 1 IgG message] The (test code = system which 7795609833) generated this result transmitted reference range : 0.0 - 20.0 SGU. The reference range was not used to interpret this result as normal/abnormal . Anti-B2 See_Comment [Automated Glycoprotein 1 IgM message] The (test code = system which 0692144347) generated this result transmitted reference range : 0.0 - 20.0 SMU. The reference range was not used to interpret this result as normal/abnormal . Anti-B2 See_Comment [Automated Glycoprotein 1 IgA message] The (test code = system which 7769653079) generated this result transmitted reference range : 0.0 - 20.0 RANI. The reference range was not used to interpret this result as normal/abnormal . POP (test code = INTERPRETATION:Values POP) over 20 SGU, SMU, or RANI units are considered positive. NOTE:A positive test for anti-B2 Glycoprotein I antibodies may indicate the presence of Antiphospholipid Syndrome. ?Anti-B2 Glycoprotein I antibodies have been associated with thrombosis, recurrent losses and/or thrombocytopenia. TEST PERFORMED AT:[facility]. [id number] [facility], [address] [facility] [place] [address] Lab Interpretation Normal (test code = 14071-9) [facility] CenterRPR (QUANTITATIVE)2021-03-04 23:01:53 Test Item Value Reference Range Interpretation Comments RPR (Quantitative) (test code = Nonreactive Nonreactive 50419-3) Lab Interpretation (test code = Normal 79533-3) [facility] CenterANTITHROMBIN [id number] 17:54:51 Test Item Value Reference Range Interpretation Comments ANTITHROMBIN ACTIVITY (test code = 117 % 83-128 7575433222) Lab Interpretation (test code = Normal 21173-6) [facility] CenterFREE PROTEIN [id number] 17:54:46 Test Item Value Reference Range Interpretation Comments FREE PROTEIN S (test code 90 % 55-146 = 7651308929) POP (test code = POP) Age and hormonal status may affect the normal range for females (particularly during ). Lab Interpretation (test Normal code = 80559-1) [facility] CenterPROTEIN C [id number] 17:54:36 Test Item Value Reference Range Interpretation Comments PROTEIN C ACTIVITY (test 133 % 70-140 code = 8167302453) POP (test code = POP) Test should not be ordered in patients on Coumadin as it can decrease Protein C and S levels. Protein C activity is low in neonates and infants and increases to adult levels during adolescence. Additional studies should be conducted to determine the source of unexpected abnormal results. 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 Incidence: Between 3 and 8 percent of people with ancestry are heterozygous and about 1 in 5000 individuals are homozygous with two copies of the mutation. The mutation is less common in other population.Inheritance: Autosomal dominant. Penetrance: Lifetime risk of thrombosis is 10 percent for heterozygotes and 80 percent for homozygotes. Mutation Tested: Missense F5 gene mutation R506Q (1691G>A). Note: Standardized nomenclature for the Factor 5 Leiden mutation is c.1601G>A (p.Oip702Uwg). Methodology: Polymerase chain reaction and fluorescence monitoring. Limitations: Rare Factor V mutations (F7300Y, E5831I, and N8026D) and any additional SNPs in the probe binding region may interfere with the target detection and yield an INVALID result. The performance of this assay has not been evaluated with samples from pediatric patients. Counseling and informed consent are recommended for genetic testing. References: OMIM: 118020 https://ghr.nlm.nih.gov/co ndition/ocbfqk-n-nfkjub-th rombophilia [facility] CenterFACTOR 2 Y54922T [id number] 15:51:49 Test Item Value Reference Range Interpretation Comments Factor 2 C82425V Normal Normal Mutation (test code = 7457240640) POP (test code = Phenotype POP) Characteristics: Thrombophilia due to production of too much coagulation factor 2 (F2, also called prothrombin). Incidence: Approximately 2-5 percent of Caucasians and 0.3 percent of Americans are heterozygous; about 1 in 10,000 individuals are homozygous with two copies of the mutation.Inheritance: Autosomal dominant. Penetrance: The risk of thrombosis is increased 2-4 fold for heterozygotes and further increased for homozygotes. Mutation Tested: F2 c.88046D>A (I08038F). Clinical Sensitivity for Venous Thrombosis: Approximately 10%. Methodology: Polymerase chain reaction and fluorescence monitoring Limitations: The performance of this assay has not been evaluated with samples from pediatric patients. Counseling and informed consent are recommended for genetic testing. References: OMIM: 203413 https://ghr.nlm.nih.gov/c ondition/prothrombin-thro mbophilia [facility] CenterVITAMIN B12, [id number] 21:15:03 Test Item Value Reference Range Interpretation Comments VIT B12 (test code = >1000 240-930 H 5163789938) POP (test code = POP) Biotin has been reported to cause a positive bias, interpret results relative to patient's use of biotin. Lab Interpretation (test Abnormal code = 23079-0) [facility] CenterFOLATE2021-11-23 19:23:39 Test Item Value Reference Range Interpretation Comments FOLATE SER (test code = 0811798493) >20.0 3.0-20.0 H Lab Interpretation (test code = Abnormal 17321-5) [facility] CenterHEMATOCRIT2021-11-23 17:33:40 Test Item Value Reference Range Interpretation Comments HCT (test code = 4544-3) 40.1 % 38.4-49.3 Lab Interpretation (test code = Normal 26728-7) [facility] CenterURIC [id number] 14:46:27 Test Item Value Reference Range Interpretation Comments URIC ACID (test code = 1585586130) 5.0 mg/dL 3.6-8.0 Lab Interpretation (test code = Normal 33668-4) [facility] CenterOSMOLALITY, SERUM OR [id number] 01:04:26 Test Item Value Reference Range Interpretation Comments OSMOLALITY (test code = See_Comment L [Au tomated message] 0248415122) The system [employer] generated this result transmitted ref erence range: 278 - 30 5 mOsm/kg. The reference range was not used to int erpret this result as normal/abnormal . Lab Interpretation (test Abnormal code = 30792-5) [facility] CenterBMP2021-09-29 13:37:00 Test Item Value Reference Range Interpretation Comments Glucose (test code 125 mg/dl 75-110 H = GLU) BUN (test code = 19.0 mg/dl 6.0-17.0 H BUN) Creatinine (test 1.3 mg/dl 0.4-1.2 H code = CREA) Sodium (test code = 138 mmol/l 137-145 NA) Potassium (test 3.6 mmol/l 3.5-5.0 code = K) Chloride (test code 99 mmol/l 98-107 = CL) CO2 (test code = 33 mmol/l 22-30 H CO2) Calcium (test code 9.9 mg/dl 8.4-10.2 = CALC) EGFR if >60 Bhutanese (test code mL/min/1.73m\\ = EGFRAA) S\\2 EGFR if Non- 59 Estimate d Glomerular Bhutanese (test code mL/min/1.73m\\ Filtrat ion Rate (eGFR) = EGFRNA) S\\2 Reference Inter vals Decision Points for 18 years and older and average body ma ss: >= 60 Does not exc lude kidney disease. 30 - 59 Suggests modera te chronic kidney disease and indicat es the need for furthe r investigation including asses sment of proteinuria and cardiovascular factors. < 30 Usually in dicates a need for refe rral for assessment and management of c hronic kidney failure. CBC WITH AUTO [id number] 13:36:00 Test Item Value Reference Range Interpretation Comments WBC (test code = 13.21 4.80-10.80 H WBC) 10\\S\\3/ul RBC (test code = 4.48 10\\S\\6/ul 4.70-6.10 L RBC) Hemoglobin (test 14.0 gm/dl 14.0-18.0 code = HGB) Hematocrit (test 41.3 % 42.0-50.0 L code = HCT) MCV (test code = 92.2 fL 80.0-94.0 MCV) MCH (test code = 31.3 pg 27.0-31.0 H MCH) MCHC (test code = 33.9 gm/dl 33.0-37.0 MCHC) RDW (test code = 12.5 % 11.5-14.5 RDWVC) Platelet (test code 330 10\\S\\3/ul 130-400 = PLT) MPV (test code = 9.5 fL 7.4-10.4 A "NOT MEASUR ED" MPV) RESULTS ARE DIS PLAYED WHEN THE INSTRU MENT HAS A SUPPRESSE D OR UNREPORTABLE RE SULT. THIS WILL MOST OFTEN HAPPEN WITH THE MPV WHEN THERE IS A N ABNORMAL PLATEL ET DISTRIBUTION DU E TO A CRITICAL LOW VA LUE OR PLATELET CLUMPI NG. THE RDW MAY BE SUPPRESSED IF T HERE ARE MULTIPLE PE AKS PRESENT ON THE RBC HISTOGRAM. IN THIS CASE, A MANUAL REVIEW OF THE SLIDE WI LL BE PERFORMED, AND RBC MORPHOLOGY WILL BE NOTED ON THE RE PORT. NE% (test code = 70.3 % 42.0-75.0 NE) LY% (test code = 18.8 % 13.0-42.0 LY) MO% (test code = 6.7 % 4.0-14.0 MO) EO% (test code = 3.3 % 1.0-5.0 EO) BA% (test code = 0.5 % 0.0-3.0 BA) IG% (test code = 0.4 % 0.0-0.4 IG%) MRI BRAIN W/O [id number] 12:07:29 [facility])Name: JOE DURAN : 1955 Sex: MMRI of the brain without contrast:History: Left-sided numbness and tinglingMultiplanar whole brain magnetic resonance imaging was performed withoutcontrast.There is restricted diffusion noted involving the left caudate nucleus. Asmaller focus of diffusion restriction is present in the posterolateral rightthalamus as well as a small rounded focus of similar signal in the left centrumsemiovale. The findings are compatible with acute evolving infarcts.There are no findings to indicate intracranial hemorrhage. No midline shift orsignificant mass effect is identified. The ventricular system is normal in sizeand configuration. The basal cisterns are patent.On the FLAIR and T2-weightedimages there are additional scattered smalldiscrete foci of hyperintensity in the subcortical and per iventricular whitematter. They are nonspecific but may well represent changes of chronicmicrovascular disease.The sella and parasellar structures appear within normal limits. There arenormal flow voidsin the visualized major intracranial vasculature. Thecerebellar tonsils are in normal position.Impression:1. 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 No findings to indicate hemorrhage.2. Multiple foci of T2/FLAIR hyperintensity in the whitematter as noted,nonspecific.3. The findings were discussed by telephone with Dr. Kwong at 11:54 Ashely thedate of exam.This final report was electronically signed by Dr Sylvester Lim MD 112:02 PMDictated By: SYLVESTER LIMDate: 01/07/2021 12:02CORONARY [id number] 12:53:00 Test Item Value Reference Range Interpretation Comments Triglycerides (test 139 mg/dl 0-149 Trig. In terpretation code = TRIG) Guide: Nor mal: < 150 mg/dl Borderline High : 150 - 199 mg/dl High: 200 - 499 mg/dl Very High: >= 5 00 mg/dl Cholesterol (test code 155 mg/dl 0-198 = CHOL) HDL (test code = HDL) 40 mg/dl 35-86 dLDL (test code = 93 mg/dl 0-99 Direct LDL DILDL) Intrepretations : Optimal: <100 mg/dl Suspect: 100 - 129 mg/dl Border line: 130 - 159 mg/dl High: 160 - 189 mg/dl Very High: >1 90 mg/dl Risk Factor (test code 3.9 0.0-5.0 Risk Factor = RFACT) Men Women R isk Factor 3.4 3.3 1/ 2 Average 5.0 4.4 Average 9.6 7.1 2X Average 24.0 11.0 3X Average vLDL (test code = 28 mg/dl 20-50 VLDL) GLYCOSALATED [id number] 12:52:00 Test Item Value Reference Range Interpretation Comments Hemoglobin A1C (test 7.3 % 4.2-6.[address] RESULTS FOR code = GLYCO) A1C EXCEED 14. 0, THE LINEAR LIMIT OF THE INSTRUMENT, THE CALCULATED RESU LT FOR THE MEAN GLUCOS E IS NOT RELIABLE. Mean Plasma Glucose 183 mg/dl 90-180 H WHEN MERRITT T RESULTS FOR (test code = MPG) A1C EXCEED 14.0, THE LINEAR LIMIT OF THE INSTRUMENT, THE CALCULATED RESU LT FOR THE MEAN GLUCOS E IS NOT RELIABLE. [id number] 12:43:00 Test Item Value Reference Range Interpretation Comments Glucose (test code 97 mg/dl 75-110 = GLU) BUN (test code = 16.0 mg/dl 6.0-17.0 BUN) Creatinine (test 1.4 mg/dl 0.4-1.2 H code = CREA) Sodium (test code = 141 mmol/l 137-145 NA) Potassium (test 4.8 mmol/l 3.5-5.0 code = K) Chloride (test code 106 mmol/l 98-107 = CL) CO2 (test code = 31 mmol/l 22-30 H CO2) Calcium (test code 9.1 mg/dl 8.4-10.2 = CALC) T Protein (test 7.4 gm/dl 5.1-8.7 code = TP) Albumin (test code 3.4 gm/dl 3.5-4.6 L = ALB) A/G Ratio (test 0.9 % 1.1-2.2 L code = AGRAT) AST (SGOT) (test 56 U/L 11-36 H code = AST) ALT (SGPT) (test 61 U/L 11-40 H code = ALT) Alkaline Phos (test 119 U/L 47-114 H code = ALKP) Total Bilirubin 0.5 mg/dl 0.2-1.2 (test code = TBIL) Globulin (test code 4.0 gm/dl 2.3-3.5 H = GLOBU) Calcium, Corrected 9.6 mg/dl 8.4-10.2 Various f ormulas exist (test code = for corrected s heaven CALCCORR) calcium results , each yielding differ ent values. This corrected resul t was based on the fo rmula: Corrected Calci um = SerumCalcium + [0.8 * ( 4 - SerumAlbu min)] EGFR if >60 Bhutanese (test code mL/min/1.73m\\ = EGFRAA) S\\2 EGFR if Non- 55 Estimate d Glomerular Bhutanese (test code mL/min/1.73m\\ Filtrat ion Rate (eGFR) = EGFRNA) S\\2 Reference Inter vals Decision Points for 18 years and older and average body ma ss: >= 60 Does not exc lude kidney disease. 30 - 59 Suggests modera te chronic kidney disease and indicat es the need for furthe r investigation including asses sment of proteinuria and cardiovascular factors. < 30 Usually in dicates a need for refe rral for assessment and management of c hronic kidney failure. URIC [id number] 12:40:00 Test Item Value Reference Range Interpretation Comments Uric Acid (test code = URICA) 5.0 mg/dl 2.4-7.2 CORONARY [id number] 13:13:00 Test Item Value Reference Range Interpretation Comments Triglycerides (test 107 mg/dl 0-149 Trig. In terpretation code = TRIG) Guide: Nor mal: < 150 mg/dl Borderline High : 150 - 199 mg/dl High: 200 - 499 mg/dl Very High: >= 5 00 mg/dl Cholesterol (test code 143 mg/dl 0-198 = CHOL) HDL (test code = HDL) 38 mg/dl 35-86 dLDL (test code = 91 mg/dl 0-99 Direct LDL DILDL) Intrepretations : Optimal: <100 mg/dl Suspect: 100 - 129 mg/dl Border line: 130 - 159 mg/dl High: 160 - 189 mg/dl Very High: >1 90 mg/dl Risk Factor (test code 3.8 0.0-5.0 Risk Factor = RFACT) Men Women R isk Factor 3.4 3.3 1/ 2 Average 5.0 4.4 Average 9.6 7.1 2X Average 24.0 11.0 3X Average vLDL (test code = 21 mg/dl 20-50 VLDL) [id number] 12:02:00 Test Item Value Reference Range Interpretation Comments Glucose (test code 105 mg/dl 75-110 = GLU) BUN (test code = 22.0 mg/dl 6.0-17.0 H BUN) Creatinine (test 1.3 mg/dl 0.4-1.2 H code = CREA) Sodium (test code = 141 mmol/l 137-145 NA) Potassium (test 4.8 mmol/l 3.5-5.0 code = K) Chloride (test code 108 mmol/l 98-107 H = CL) CO2 (test code = 28 mmol/l 22-30 CO2) Calcium (test code 8.8 mg/dl 8.4-10.2 = CALC) T Protein (test 7.5 gm/dl 5.1-8.7 code = TP) Albumin (test code 3.7 gm/dl 3.5-4.6 = ALB) A/G Ratio (test 1.0 % 1.1-2.2 L code = AGRAT) AST (SGOT) (test 42 U/L 11-36 H code = AST) ALT (SGPT) (test 78 U/L 11-40 H code = ALT) Alkaline Phos (test 119 U/L 47-114 H code = ALKP) Total Bilirubin 0.6 mg/dl 0.2-1.2 (test code = TBIL) Globulin (test code 3.8 gm/dl 2.3-3.5 H = GLOBU) Calcium, Corrected 9.0 mg/dl 8.4-10.2 Various f ormulas exist (test code = for corrected s heaven CALCCORR) calcium results , each yielding differ ent values. This corrected resul t was based on the fo rmula: Corrected Calci um = SerumCalcium + [0.8 * ( 4 - SerumAlbu min)] EGFR if >60 Bhutanese (test code mL/min/1.73m\\ = EGFRAA) S\\2 EGFR if Non- 59 Estimate d Glomerular Bhutanese (test code mL/min/1.73m\\ Filtrat ion Rate (eGFR) = EGFRNA) S\\2 Reference Inter vals Decision Points for 18 years and older and average body ma ss: >= 60 Does not exc lude kidney disease. 30 - 59 Suggests modera te chronic kidney disease and indicat es the need for furthe r investigation including asses sment of proteinuria and cardiovascular factors. < 30 Usually in dicates a need for refe rral for assessment and management of c hronic kidney failure. CBC WITH AUTO [id number] 11:22:00 Test Item Value Reference Range Interpretation Comments WBC (test code = WBC) 8.61 10\\S\\3/ul 4.80-10.80 RBC (test code = RBC) 4.11 10\\S\\6/ul 4.70-6.10 L Hemoglobin (test code = HGB) 13.2 gm/dl 14.0-18.0 L Hematocrit (test code = HCT) 40.9 % 42.0-50.0 L MCV (test code = MCV) 99.5 fL 80.0-94.0 H MCH (test code = MCH) 32.1 pg 27.0-31.0 H MCHC (test code = MCHC) 32.3 gm/dl 33.0-37.0 L RDW (test code = RDWVC) 13.5 % 11.5-14.5 Platelet (test code = PLT) 257 10\\S\\3/ul 130-400 MPV (test code = MPV) 9.2 fL 7.4-10.4 A NE% (test code = NE) 59.9 % 42.0-75.0 LY% (test code = LY) 26.4 % 13.0-42.0 MO% (test code = MO) 7.2 % 4.0-14.0 EO% (test code = EO) 5.5 % 1.0-5.0 H BA% (test code = BA) 0.7 % 0.0-3.0 IG% (test code = IG%) 0.3 % 0.0-0.4
[2021-05-10 23:44] LABS: Arterial Blood Carboxyhemoglob 1.5 % (0-1.5); Blood Gas Oxyhemoglobin 90.8 % (94-97)
[2021-05-10] MEDS ORDERED: ALBUTEROL 2.5 MG/3 ML NEB SOL ONE (23:51)
[2021-05-10] MEDS ORDERED: IPRATROPIUM BROM 0.5MG/2.5ML ONE (23:51)
[2021-05-11] MEDS ORDERED: CEFEPIME 1 GM/VIAL ONE (00:16)
[2021-05-11] MEDS ORDERED: NA CHLORIDE 0.9% 100 ML ONE ×2 (00:16→06:44)
[2021-05-11] MEDS ORDERED: NA CHLORIDE 0.9% 1,000 ML ONE ×4 (00:16→19:43)
[2021-05-11 00:32] LABS: Protime INR 1.4
[2021-05-11 00:34] LABS: Absolute Lymphocytes (CBC) 0.5 K/uL (0.7-4.9); Hematocrit 33.2 % (39.6-49.0); Lymphocytes % 2.5 % (15.3-44.8); MPV 7.4 fL (7.6-11.3); RBC Red Blood Cell Count 3.61 M/uL (4.33-5.43)
[2021-05-11 00:52] LABS: Barbiturates NEGATIVE (NEGATIVE); Benzodiazepines NEGATIVE (NEGATIVE); Cocaine NEGATIVE (NEGATIVE); METHAMPHETAM NEGATIVE (NEGATIVE); Methadone NEGATIVE (NEGATIVE); Opiates NEGATIVE (NEGATIVE); Phencyclidine NEGATIVE (NEGATIVE); THC Cannibis NEGATIVE (NEGATIVE)
[2021-05-11 01:00] LABS: Urine Bacteria <20 /HPF (NONE SEEN); Urine RBC <5 /HPF (NONE SEEN)
[2021-05-11 01:02] LABS: ALT/SGPT 35 U/L (12-78); Albumin 1.4 g/dL (3.4-5.0); Alkaline Phosphatase 160 U/L (45-117); BUN Blood Urea Nitrogen 66 mg/dL (7-18); Bicarbonate 20 mmol/L (21-32); Bilirubin Direct 0.3 mg/dL (0-0.2); Bilirubin Total 0.5 mg/dL (0.2-1.0); Glucose Level 159 mg/dL (74-106); NT PRO-BNP 595 pg/mL (<125); Protein, Total 7.4 g/dL (6.4-8.2); Sodium Level 128 mmol/L (136-145)
[2021-05-11 01:03] LABS: AST/SGOT 32 U/L (15-37); Magnesium 2.8 mg/dL (1.8-2.4); Potassium 6.8 mmol/L (3.5-5.1)
[2021-05-11] MEDS ORDERED: VANCOMYCIN 1 GM/VIAL ONE ×2 (01:19→06:44)
[2021-05-11] MEDS ORDERED: INSULIN -REGULAR HUMAN 50 UNIT/0.5 ML ML ONE (01:20)
[2021-05-11] MEDS ORDERED: SOD POLYSTYREN SUL 15 GM/60 ML UCUP ONE (01:20)
[2021-05-11] MEDS ORDERED: D50W 25 GM/50 ML SYRINGE IV ONE (01:21)
[2021-05-11] MEDS ORDERED: SODIUM BICARB 50 MEQ/50ML VIAL ONE (01:21)
[2021-05-11] MEDS ORDERED: Caclcium Chloride 10% INJ SYR IV ONE (01:21)
[2021-05-11] MEDS ORDERED: NA CHLORIDE 0.9% 250 ML ONE (01:21)
[2021-05-11 01:54] LABS: SARS-COV-2 RT PCR POSITIVE (NEGATIVE)
--- NOTE | 2021-05-11 02:51 | ER ---
Nurse's Notes [facility] Name: Harsh Dalton Age: 65 yrs Sex: Male : 1955 Arrival Date: 05/10/2021 Time: 23:14 Bed 28 Private MD: Diagnosis: Sepsis, unspecified organism;UTI/ Urinary tract infection, site not specified;Hyperkalemia;Coronavirus infection, unspecified;Ileus, unspecified Presentation: 05/10 23:15 Chief complaint: EMS states: called out for unresponsiveness. Coronavirus screen: At as6 this time, unable to obtain information related to travel outside the [place] Ebola Screen: Unable to complete the Ebola screening because: Patient is unresponsive. Initial Sepsis Screen: Does the patient meet any 2 criteria? RR > 20 per min. Altered Mental Status. HR > 90 bpm. Yes Does the patient have a suspected source of infection? Yes: Dysuria/Frequency/Urgency/UTI. Risk Assessment: Do you want to hurt yourself or someone else? Unable to obtain. Onset of symptoms is unknown. 23:15 Method Of Arrival: EMS: [facility] as6 23:15 Acuity: ROHITH 2 as6 Historical: - Home Meds: 05/11 00:59 Unable to obtain [Active]; as6 - PMHx: 00:59 Unable to Obtain; as6 - PSHx: 00:59 Unable to Obtain; as6 - Immunization history:: Adult Immunizations unknown. - Social history:: Smoking status: unknown. Screenin:30 Abuse screen: Denies threats or abuse. Denies injuries from another. Nutritional as6 screening: No deficits noted. Tuberculosis screening: No symptoms or risk factors identified. Fall Risk Secondary diagnosis (15 points) dementia, impaired mobility, CVA, IV access (20 points). Ambulatory Aid- None/Bed Rest/Nurse Assist (0 pts). Total Bee Fall Scale indicates Low Risk Score (25-44 pts). Fall prevention measures have been instituted. Side Rails Up X 2 As available Patient and Family Educated on Fall Prevention Program and strategies. Assessment: 05/10 23:15 General: Appears distressed, Behavior is responsive to painful stimuli . Pain: as6 Complains of pain in chest Noted to be grimacing, guarding. Neuro: Level of Consciousness is responsive to painful stimuli . Oriented to none. Respiratory: Respiratory effort is labored, Breath sounds are clear bilaterally. GI: Abdomen is distended, PEG tube. : Fragoso in place. 05/11 01:08 General:. : Urine is latte colored Penile discharge is green. as6 Vital Signs: 05/10 23:15 BP 113 / 68; Pulse 111; Resp 41 S; Temp 98.7(A); Pulse Ox 96% on 4 lpm NC; Weight 68.04 as6 kg; 05/11 00:31 BP 106 / 66; Pulse 115; Resp 27; Temp 100.6(C); Pulse Ox 97% ; sm5 01:30 BP 97 / 62; Pulse 107; Resp 25; Temp 100; Pulse Ox 97% ; sm5 02:00 BP 117 / 77; Pulse 112; Resp 24 S; Temp 99.8(C); Pulse Ox 98% on R/A; as6 03:00 BP 97 / 60; Pulse 117; Resp 30 S; Temp 99.7(C); Pulse Ox 95% on R/A; as6 04:00 BP 96 / 72; Pulse 113; Resp 28 S; Temp 99.7(C); Pulse Ox 94% on R/A; as6 ED Course: 05/10 23:14 Patient arrived in ED. bb 23:15 Nils Jaquez, GILMER is Primary Nurse. as6 23:15 Fragoso cath inserted, using sterile technique, 16 Fr., by ks, balloon inflated, to as6 gravity drainage, urine specimen collected. Maintain EMS IV. Dressing intact. Site clean \T\ dry. Gauge \T\ site: 18g L wrist 16g R wrist. 23:22 Fco Gaines MD is Attending Physician. 7 23:25 Triage completed. as6 23:40 XRAY Chest (1 view) In Process Unspecified. EDMS 05/11 00:30 CT Head Brain wo Cont In Process Unspecified. EDMS 00:30 CT Abd/Pelvis - Without Contrast In Process Unspecified. EDMS 01:31 Arm band placed on right wrist. as6 01:31 Placed in gown. Bed in low position. Call light in reach. Side rails up X2. Cardiac as6 monitor on. Pulse ox on. NIBP on. 02:33 NGT: inserted 16 Fr. via left nare. Patient tolerated well. as6 02:49 Nasim De Los Santos MD is Hospitalizing Provider. mh7 04:10 NGT: Removed intact. sm5 04:12 NGT: inserted 12 Fr. via right nare. verified placement of air over stomach, Placement sm5 verified by X-ray, Patient tolerated well. 06:26 No provider procedures requiring assistance completed. Patient admitted, IV remains in as6 place. 05/12 02:51 Notified the Hospitalist of a critical lab result(s), Aerobic cultures positive. tw5 Administered Medications: 05/11 00:14 Drug: Albuterol 2.5 mg Route: Inhalation; as6 03:57 Follow up: Response: No adverse reaction as6 00:14 Drug: AtroVENT (ipratropium) Aerosol 0.5 mg Route: Inhalation; as6 03:57 Follow up: Response: No adverse reaction as6 00:20 Drug: Cefepime 1 grams Route: IVPB; Rate: 200 ml/hr; Infused Over: 30 mins; Site: left as6 hand; 03:56 Follow up: Response: No adverse reaction; IV Status: Completed infusion; IV Intake: as6 100ml 06:28 Follow up: Response: No adverse reaction; IV Status: Completed infusion; IV Intake: as6 100ml 00:20 Drug: NS 0.9% 1000 ml Route: IV; Rate: 1000 ml; Site: left hand; as6 03:56 Follow up: Response: No adverse reaction; IV Status: Completed infusion; IV Intake: as6 1000ml 01:47 Drug: Calcium Chloride 1 grams Route: IVP; Site: left hand; as6 03:58 Follow up: Response: No adverse reaction as6 01:51 Drug: Sodium Bicarbonate 1 amp Route: IVP; Site: left hand; as6 03:58 Follow up: Response: No adverse reaction as6 01:52 Drug: D50W 50 ml Route: IVP; Site: left hand; as6 03:58 Follow up: Response: No adverse reaction as6 01:54 Drug: Insulin Regular Human 5 units {Co-Signature: sm5 (May Velazco RN).} Route: IVP; as6 Site: left hand; 03:58 Follow up: Response: No adverse reaction as6 01:59 Drug: vancoMYCIN 1 grams Route: IVPB; Infused Over: 2 hrs; Site: left hand; as6 03:58 Follow up: IV Status: Completed infusion; IV Intake: 250ml as6 02:30 Drug: Kayexalate (polystyrene) 15 grams Route: PO; as6 03:59 Follow up: Response: No adverse reaction as6 Intake: 03:56 IV: 100ml; Total: 100ml. as6 03:56 IV: 1000ml; Total: 1100ml. as6 03:58 IV: 250ml; Total: 1350ml. as6 06:28 IV: 100ml; Total: 1450ml. as6 Output: 02:12 Urine: 1850ml (Fragoso); Total: 1850ml. as6 Outcome: 02:51 Decision to Hospitalize by Provider. 06:26 Admitted to ER Hold. Please see [facility] for further documentation. as6 06:26 Condition: stable 02 00:13 Patient left the ED. sf1 Signatures: Dispatcher [employer] EDMS Fior Suresh RN RN bb Holmes, Maurice, MD MD 7 Liya Mccormick 5 Nils Jaquez RN RN as6 May Velazco RN RN sm5 Yana Thomas RN RN sf1 Mya Velazco RN sm5
--- NOTE | 2021-05-11 02:52 | EDPHYS ---
Physician Documentation [facility] Name: Harsh Dalton Age: 65 yrs Sex: Male : 1955 Arrival Date: 05/10/2021 Time: 23:14 Bed 28 Private MD: ED Physician Fco Gaines HPI: 05/11 00:07 This 65 yrs old Unknown Male presents to ER via EMS with complaints of Unresponsive. mh7 00:00 Patient's baseline: Ambulation: unable to walk, is bedridden, Speech: Aphasia, The mh7 patient has a previous history of CVA. 00:00 According to EMS, they were called to nursing facility due to patient being mh7 unresponsive. They did not receive much information from nursing facility staff. Information form from nursing facility reports that patient has a history of stroke with bilateral hemiplegia, aphasia.. 00:07 The patient presents with decreased responsiveness. Onset: The symptoms/episode mh7 began/occurred at an unknown time. Possible causes: unknown. Associated signs and symptoms: The patient has no apparent associated signs or symptoms. Current symptoms: In the emergency department the patient's symptoms are unchanged from the initial presentation. Unable to obtain HPI due to altered mental status. Historical: - Home Meds: 00:59 Unable to obtain [Active]; as6 - PMHx: 00:59 Unable to Obtain; as6 - PSHx: 00:59 Unable to Obtain; as6 - Immunization history:: Adult Immunizations unknown. - Social history:: Smoking status: unknown. ROS: 00:00 Unable to obtain ROS due to altered mental status. mh7 Exam: 00:00 Head/Face: Normocephalic, atraumatic. Neck: Trachea midline, no thyromegaly or masses mh7 palpated, and no cervical lymphadenopathy. Supple, full range of motion without nuchal rigidity, or vertebral point tenderness. No Meningismus. Chest/axilla: Normal chest wall appearance and motion. Nontender with no deformity. No lesions are appreciated. 00:00 Back: No spinal tenderness. No costovertebral tenderness. Full range of motion. Skin: Warm, dry with normal turgor. Normal color with no rashes, no lesions, and no evidence of cellulitis. 00:00 Constitutional: The patient appears obviously ill, Somnolent 00:00 Cardiovascular: Rate: tachycardic, Rhythm: regular, Pulses: no pulse deficits are appreciated, Heart sounds: normal, normal S1and S2, Edema: is not appreciated, JVD: is not appreciated. 00:00 Respiratory: moderate respiratory distress is noted, Respirations: tachypnea, that is moderate, Breath sounds: rhonchi, that are mild, are scattered, Respiratory rate: 36 00:00 Abdomen/GI: Inspection: distension, that is moderate, Bowel sounds: high pitched, all quadrants. Palpation: moderate abdominal tenderness, in all quadrants, mass, is not appreciated, rebound tenderness, is not appreciated, voluntary guarding, is not appreciated, involuntary guarding, is not appreciated, no appreciated organomegaly, Indicators: McBurney's point is not tender, Wagoner's sign is negative, Rovsing's sign is negative, Obturator sign is negative, Psoas sign is negative, Liver: no appreciated palpable abnormalities, Hernia: not appreciated. 00:00 Neuro: Orientation: unable to test, AMS, Mentation: unable to test, AMS, Memory: unable to test, AMS, Cranial nerves: unable to test, AMS, Cerebellar function: unable to test, AMS, Motor: unable to test, AMS, Sensation: unable to test, AMS, Gait: not tested. seizure activity, is not displayed by the patient, Abnormal movements: there are no abnormal movements. Vital Signs: 05/10 23:15 BP 113 / 68; Pulse 111; Resp 41 S; Temp 98.7(A); Pulse Ox 96% on 4 lpm NC; Weight 68.04 as6 kg; 05/11 00:31 BP 106 / 66; Pulse 115; Resp 27; Temp 100.6(C); Pulse Ox 97% ; sm5 01:30 BP 97 / 62; Pulse 107; Resp 25; Temp 100; Pulse Ox 97% ; sm5 02:00 BP 117 / 77; Pulse 112; Resp 24 S; Temp 99.8(C); Pulse Ox 98% on R/A; as6 03:00 BP 97 / 60; Pulse 117; Resp 30 S; Temp 99.7(C); Pulse Ox 95% on R/A; as6 04:00 BP 96 / 72; Pulse 113; Resp 28 S; Temp 99.7(C); Pulse Ox 94% on R/A; as6 MDM: 02:48 Differential Diagnosis: CVA, electrolyte abnormality, hypoglycemia, intracranial bleed, mh7 pneumonia, sepsis, TIA, UTI, volume depletion. Data reviewed: vital signs, nurses notes, EMS record, lab test result(s), cardiac enzymes, CBC, electrolytes, urinalysis, EKG, radiologic studies, CT scan, plain films. Data interpreted: Pulse oximetry: on 2L(s) per nasal canula, is 98 %. Interpretation: normal. Counseling: I had a detailed discussion with the patient and/or guardian regarding: the historical points, exam findings, and any diagnostic results supporting the discharge/admit diagnosis, lab results, radiology results, the need for further work-up and treatment in the hospital. Response to treatment: the patient's symptoms have mildly improved after treatment. 02:[address] [facility] 05/10 23:27 Order name: Basic Metabolic Panel [facility] 05/10 23:27 Order name: CBC with Diff [facility] 05/10 23:27 Order name: LFT's [facility] 05/10 23:27 Order name: Magnesium [facility] 05/10 23:27 Order name: NT PRO-BNP; Complete Time: 01:04 [facility] 05/10 23:27 Order name: PT-INR; Complete Time: 01:00 [facility] 05/10 23:27 Order name: Troponin HS; Complete Time: 01:04 [facility] 05/10 23:27 Order name: Urine Culture [facility] 05/10 23:27 Order name: Blood Culture Adult (2) [facility] 05/10 23:27 Order name: UDS; Complete Time: 01:00 [facility] 05/10 23:27 Order name: Acetaminophen; Complete Time: 01:04 [facility] 05/10 23:27 Order name: Salicylate; Complete Time: 01:32 [facility] 05/10 23:27 Order name: Arterial Blood Gas; Complete Time: 00:17 [facility] 05/10 23:27 Order name: AMMONIA; Complete Time: 01:00 [facility] 05/10 23:27 Order name: Basic Metabolic Panel; Complete Time: 01:04 [facility] 05/10 23:28 Order name: CBC with Automated Diff [facility] 05/10 23:28 Order name: Liver (Hepatic) Function; Complete Time: 01:04 [facility] 05/10 23:28 Order name: Magnesium; Complete Time: 01:04 EDMS 05/10 23:28 Order name: Lactate; Complete Time: 01:00 [facility] 05/10 23:28 Order name: Procalcitonin; Complete Time: 01:32 [facility] 05/10 23:28 Order name: COVID-19/FLU A+B/RSV (Document "Date of Onset" if Symptomatic); Complete [facility] Time: 02:08 05/11 00:29 Order name: Urine Microscopic Only; Complete Time: 01:04 [facility] 05/11 00:36 Order name: Manual Differential EDMS 05/11 03:33 Order name: Lactate Sepsis 2 HR Follow-up EDMS 05/11 06:13 Order name: Basic Metabolic Panel EDMS 05/11 06:13 Order name: Uric Acid EDMS 05/11 06:13 Order name: Creatine Phosphokinase EDMS 05/11 06:13 Order name: T4 Free EDMS 05/11 06:13 Order name: Thyroid Stimulating Hormone EDMS 05/11 06:53 Order name: Glucose, Ancillary Testing [facility] 05/10 23:27 Order name: XRAY Chest (1 view) [facility] 05/10 23:27 Order name: CT Head Brain wo Cont 7 05/10 23:27 Order name: CT Abd/Pelvis - Without Contrast [facility] 05/11 02:30 Order name: Chest Single View XRAY [facility] 05/11 09:31 Order name: US [facility] 05/11 09:45 Order name: RAD MS 05/11 10:05 Order name: Basic Metabolic Panel [facility] 05/11 10:05 Order name: Lactate EDMS 05/11 14:01 Order name: Glucose, Ancillary Testing EDMS 05/11 14:29 Order name: Basic Metabolic Panel [facility] 05/11 14:30 Order name: RAD EDMS 05/11 20:01 Order name: Glucose, Ancillary Testing EDMS 05/11 20:02 Order name: Glucose, Ancillary Testing EDMS 05/12 01:15 Order name: Glucose, Ancillary Testing EDMS 05/12 03:17 Order name: CBC with Automated Diff EDMS 05/12 03:40 Order name: Comprehensive Metabolic Panel EDMS 05/12 03:40 Order name: Phosphorus EDMS 05/12 03:40 Order name: Lipid Profile EDMS 05/12 04:29 Order name: Manual Differential EDMS 05/12 06:10 Order name: Glucose, Ancillary Testing [facility] 05/12 07:36 Order name: Gram Stain--Aerobic Bottle [facility] 05/12 07:37 Order name: Gram Stain--Aerobic Bottle [facility] 05/12 12:14 Order name: Glucose, Ancillary Testing [facility] 05/12 13:16 Order name: Magnesium [facility] 05/12 18:09 Order name: Glucose, Ancillary Testing [facility] 05/12 18:22 Order name: Glucose, Ancillary Testing [facility] 05/12 20:24 Order name: Basic Metabolic Panel [facility] 05/12 22:37 Order name: Glucose, Ancillary Testing [facility] 05/10 23:27 Order name: EKG; Complete Time: 23:28 05/10 23:27 Order name: Cardiac monitoring; Complete Time: 00:14 05/10 23:27 Order name: EKG - Nurse/Tech; Complete Time: 00:42 05/10 23:27 Order name: IV Saline Lock; Complete Time: 00:14 05/10 23:27 Order name: Labs collected and sent; Complete Time: 00:20 05/10 23:27 Order name: O2 Per Protocol; Complete Time: 00:14 05/10 23:27 Order name: O2 Sat Monitoring; Complete Time: 00:14 05/10 23:27 Order name: Urine Dipstick-Ancillary (obtain specimen); Complete Time: 00:42 05/11 01:32 Order name: NG Tube; Complete Time: 02:30 05/11 03:16 Order name: CONS Physician Consult [facility] Administered Medications: 00:14 Drug: Albuterol 2.5 mg Route: Inhalation; as6 03:57 Follow up: Response: No adverse reaction as6 00:14 Drug: AtroVENT (ipratropium) Aerosol 0.5 mg Route: Inhalation; as6 03:57 Follow up: Response: No adverse reaction as6 00:20 Drug: Cefepime 1 grams Route: IVPB; Rate: 200 ml/hr; Infused Over: 30 mins; Site: left as6 hand; 03:56 Follow up: Response: No adverse reaction; IV Status: Completed infusion; IV Intake: as6 100ml 06:28 Follow up: Response: No adverse reaction; IV Status: Completed infusion; IV Intake: as6 100ml 00:20 Drug: NS 0.9% 1000 ml Route: IV; Rate: 1000 ml; Site: left hand; as6 03:56 Follow up: Response: No adverse reaction; IV Status: Completed infusion; IV Intake: as6 1000ml 01:47 Drug: Calcium Chloride 1 grams Route: IVP; Site: left hand; as6 03:58 Follow up: Response: No adverse reaction as6 01:51 Drug: Sodium Bicarbonate 1 amp Route: IVP; Site: left hand; as6 03:58 Follow up: Response: No adverse reaction as6 01:52 Drug: D50W 50 ml Route: IVP; Site: left hand; as6 03:58 Follow up: Response: No adverse reaction as6 01:54 Drug: Insulin Regular Human 5 units {Co-Signature: sm5 (May Velazco RN).} Route: IVP; as6 Site: left hand; 03:58 Follow up: Response: No adverse reaction as6 01:59 Drug: vancoMYCIN 1 grams Route: IVPB; Infused Over: 2 hrs; Site: left hand; as6 03:58 Follow up: IV Status: Completed infusion; IV Intake: 250ml as6 02:30 Drug: Kayexalate (polystyrene) 15 grams Route: PO; as6 03:59 Follow up: Response: No adverse reaction as6 Disposition Summary: 05/11/21 02:51 Hospitalization Ordered Hospitalization Status: Inpatient Admission mh7 Provider: Nasim De Los Santos Condition: [facility] Problem: [facility] Symptoms: have improved [facility] Bed/Room Type: Standard [facility] Location: Telemetry/MedSurg (Inpatient)(05/12/21 23:12) Room Assignment: [facility](05/12/21 23:12) Diagnosis - Sepsis, unspecified organism mh7 - UTI/ Urinary tract infection, site not specified mh7 - Hyperkalemia mh7 - Coronavirus infection, unspecified 7 - Ileus, unspecified [facility] Forms: - Medication Reconciliation Form mh7 - SBAR form [facility] Signatures: Dispatcher [employer] Pippa Dalton RN RN mw Holmes, Maurice, MD MD mh7 Slawson, Ashby, RN RN as6 May Velazco RN sm5 Corrections: (The following items were deleted from the chart) 03:12 02:51 Telemetry/MedSurg (Inpatient) mh7 03:12 02:51 [facility] 05/12 23:12 05/11 03:12 [facility] 05/12 23:12 05/11 03:12 [facility]
[2021-05-11 03:02] LABS: Blood Morphology Comment NOT SEEN (NOT SEEN); Platelet Estimate ADEQ
--- NOTE | 2021-05-11 04:11 | P.HP ---
Certification for Inpatient Patient admitted to: Inpatient With expected LOS: >2 Midnights Patient will require the following post-hospital care: None Practitioner: I am a practitioner with admitting privileges, knowledge of patient current condition, hospital course, and medical plan of care. Services: Services provided to patient in accordance with Admission requirements found in Title 42 Section 412.3 of the Code of Federal Regulations Patient History Date of Service: 05/11/21 Primary Care Provider: Matthew Reason for admission: UTI, ARF, sepsis History of Present Illness: Mr. Dalton is a 65 yo M with history of CVA with hemiplegia, aphasia, dysphagia s/p G tube, HTN, T2DM, HLD, BPH, and GERD who is brought in from intermediate for unresponsiveness. EMS did not receive much information from [facility]. He had a amato catheter upon arrival. Nurse changed the amato and noticed purulent drainage from penis and dark brown urine and sediment in catheter. He received IV vancomycin and cefepime, IV fluids, and potassium lowering treatment in the ED. G tube was challenged and is patent. NG tube was placed. At bedside, he tracks his eyes around the room does not move. At baseline, patient is bedridden, unable to walk, aphasic. CTAP showed findings suggest a small bowel ileus/developing obstruction, bladder wall thickening with surrounding inflammation suggesting cystitis. WBC 21 Hemoglobin 10.8 NA 128 K 6.8 HCO3 20 BUN 66 Cr 3.75 GFR 16 Glu 159 Lactate 2.4 Dbili 0.3 alk phos 160 - Past Medical/Surgical History Diabetic: Yes -: CVA -: HTN -: T2DM -: HLD -: FTT -: GERD -: BPH -: hemiplegia, dysphagia, weakness, aphasia -: Gastrostomy tube - Social History Smoking Status: Unknown if ever smoked Place of Residence: [place] Review of Systems is unable to be obtained Physical Examination - Physical Exam General: Cachectic, Unresponsive HEENT: Atraumatic, PERRLA, Sclerae nonicteric Neck: 2+ carotid pulse no bruit, No LAD, Without JVD or thyroid abnormality Respiratory: Clear to auscultation bilaterally, Normal air movement Cardiovascular: No edema, Normal pulses, Regular rate/rhythm (tachycardic), Normal S1 S2 Gastrointestinal: Normal bowel sounds, No ascites, No tenderness, No masses, No rebound, No guarding, Distended Musculoskeletal: No tenderness Integumentary: No rashes Neurological: Abnormal affect Lymphatics: No axilla or inguinal lymphadenopathy Urinary: Amato catheter - Studies Laboratory Data (last 24 hrs) 05/11/21 00:00: PT 16.2 H, INR 1.40 05/11/21 00:00: WBC 21.00 H*, Hgb 10.8 L, Hct 33.2 L, Plt Count 425 H 05/11/21 00:00: Sodium 128 L, Potassium 6.8 H*, BUN 66 H, Creatinine 3.75 H, Glucose 159 H, Magnesium 2.8 H, Total Bilirubin 0.5, AST 32, ALT 35, Alkaline Phosphatase 160 H Assessment and Plan - Problems (Diagnosis) (1) CVA (cerebral vascular accident) Current Visit: Yes Status: Chronic Qualifiers: CVA mechanism: unspecified Qualified Code(s): I63.9 - Cerebral infarction, unspecified (2) HTN (hypertension) Current Visit: Yes Status: Chronic Qualifiers: Hypertension type: primary hypertension Qualified Code(s): I10 - Essential (primary) hypertension (3) T2DM (type 2 diabetes mellitus) Current Visit: Yes Status: Chronic Qualifiers: Diabetes mellitus keno terminal operator insulin use: unspecified keno terminal operator insulin use status Diabetes mellitus complication status: without complication Qualified Code(s): E11.9 - Type 2 diabetes mellitus without complications (4) HLD (hyperlipidemia) Current Visit: Yes Status: Chronic Qualifiers: Hyperlipidemia type: unspecified Qualified Code(s): E78.5 - Hyperlipidemia, unspecified (5) BPH (benign prostatic hyperplasia) Current Visit: Yes Status: Chronic Qualifiers: Lower urinary tract symptom presence: unspecified whether lower urinary tract symptoms present Qualified Code(s): N40.0 - Benign prostatic hyperplasia without lower urinary tract symptoms (6) GERD (gastroesophageal reflux disease) Current Visit: Yes Status: Chronic Qualifiers: Esophagitis presence: without esophagitis Qualified Code(s): K21.9 - Gastro-esophageal reflux disease without esophagitis (7) Gastrostomy tube dependent Current Visit: Yes Status: Chronic (8) UTI (urinary tract infection) Current Visit: Yes Status: Acute Qualifiers: Urinary tract infection type: acute cystitis Hematuria presence: without hematuria Qualified Code(s): N30.00 - Acute cystitis without hematuria (9) Acute renal failure Current Visit: Yes Status: Acute Qualifiers: Acute renal failure type: unspecified Qualified Code(s): N17.9 - Acute kidney failure, unspecified (10) Hyperkalemia Current Visit: Yes Status: Acute (11) COVID Current Visit: Yes Status: Acute (12) Ileus Current Visit: Yes Status: Acute (13) Sepsis Current Visit: Yes Status: Acute Qualifiers: Sepsis type: sepsis due to unspecified organism Sepsis acute organ dysfunction status: with acute organ dysfunction Severe sepsis acute organ dysfunction type: acute renal failure Acute renal failure type: unspecified Severe sepsis shock status: without septic shock Qualified Code(s): A41.9 - Sepsis, unspecified organism; R65.20 - Severe sepsis without septic shock; N17.9 - Acute kidney failure, unspecified - Plan continue IV vancomycin and cefepime continue IV fluids nephrology consulted potassium lowering treatment, check BMP 4 hours renal Ultrasound pending surgery consulted NG tube placed dietitian consulted reconcile and continue home medications DVT ppx Discharge Plan: Half-Way Plan to discharge in: Greater than 2 days - Advance Directives Does patient have a Living Will: No Does patient have a Durable POA for Healthcare: No - Code Status/Comfort Care Code Status Assessed: Yes (full code ) Critical Care: Yes Time Spent Managing Pts Care (In Minutes): 70
[2021-05-11] MEDS ORDERED: ONDANSETRON 4 MG/2 ML VIAL IV PRN (05:02)
[2021-05-11] MEDS ORDERED: NA CHLORIDE 0.9% 1,000 ML IV SCH (05:02)
[2021-05-11] MEDS ORDERED: ACETAMINOPHEN 650MG/RECT SUPP PR PRN (05:02)
[2021-05-11] MEDS ORDERED: VANCOMYCIN 250 MG in NA CHLORIDE 0.9% 100 ML IVPB ONE (05:30)
[2021-05-11 05:53] VITALS: BMI 22.1
[2021-05-11] MEDS: INSULIN -REGULAR HUMAN 50 UNIT/0.5 ML ML SQ SCH ×3 (06:00→18:00)
[2021-05-11 06:12] LABS: Potassium 4.6 mmol/L (3.5-5.1); Thyroid Stimulating Hormone 0.993 uIU/mL (0.360-3.740); Uric Acid 6.9 mg/dL (3.5-7.2)
[2021-05-11] MEDS: HEPARIN 5000 UNIT/ML 1 ML VIAL SQ SCH ×2 (09:00→17:00)
--- NOTE | 2021-05-11 09:01 | RAD REPORT ---
EXAM DESCRIPTION: RAD - Chest Single View - 05/10/2021 11:40 pm CLINICAL HISTORY: AMS Chest pain. COMPARISON: No comparisons FINDINGS: Portable technique limits examination quality. The lungs are grossly clear. The heart is normal in size. No displaced fractures. IMPRESSION: No acute intrathoracic process suspected.
[2021-05-11] MEDS ORDERED: HEPARIN 5000 UNIT/ML 1 ML VIAL ONE ×2 (09:14→17:17)
--- NOTE | 2021-05-11 09:31 | RAD REPORT ---
EXAM DESCRIPTION: US - Renal Ultrasound-Complete - 05/11/2021 5:47 am CLINICAL HISTORY: GORGE COMPARISON: Head Brain Wo Cont dated 05/11/2021; Abdomen Pelvis Wo Contrast dated 05/11/2021 FINDINGS: Both kidneys are normal in size, shape and echotexture. The right kidney measures 9.0 x 4.9 x 3.9 cm. No hydronephrosis, focal mass or perinephric fluid. The left kidney measures 8.2 x 5.6 x 4.9 cm. No hydronephrosis, focal mass or perinephric fluid. The urinary bladder is incompletely distended without gross abnormality seen. IMPRESSION: Unremarkable renal sonogram.
--- NOTE | 2021-05-11 09:44 | RAD REPORT ---
EXAM DESCRIPTION: RAD - Abdomen 1 View (KUB) - 05/11/2021 6:13 am CLINICAL HISTORY: serial abd exams Pain COMPARISON: Abdomen Pelvis Wo Contrast dated 05/11/2021 FINDINGS: Diffuse bowel gas distention is present unorganized pattern. Enteric tube tip is in the st omach. No free air is seen. No significant bony findings. No pathologic calcifications. IMPRESSION: Non organized bowel distention predominately of small intestine seen suggesting adynamic ileus. Given that developing obstruction can have a similar appearance, suggest follow-up plain radi ograph 24-48 hours.
[2021-05-11 10:04] LABS: Potassium 4.4 mmol/L (3.5-5.1)
--- NOTE | 2021-05-11 11:28 | CON ---
Date of Consultation: 05/11/2021 Brief History Of Present Illness: The patient is a 65-year-old male with a history of CVA with hemip legia, aphasia, dysphagia, hypertension, diabetes, hyperlipidemia, BPH, GERD, who was brought to the hospital unresponsive with altered mental status. He had an indwelling Fragoso catheter placed prior t o admission as well as a PEG tube placed prior to admission. He was awake, but lethargic during my e xamination, but nonverbal. As such, information was obtained primarily from the chart. Past Medical History: Hypertension, diabetes, hyperlipidemia, GERD, BPH, CVA, hemiplegia, dysphagia, weakness, aphasia. Past Surgical History: Includes gastrostomy tube placement. Social History: Smoking, alcohol, recreational drug use unable to obtain. Review of Systems: A 10-point review of systems unable to obtain. Physical Examination: Vital Signs: At the time of my examination; his BMI is 22.2. His blood pressure 99/53, pulse of 111 , respiratory rate 30, temperature 99.9, O2 sats were 91% on room air. General: He was lethargic, sleeping, but arousable, nonverbal, noncommunicative. He moved purposefu lly to noxious stimuli. HEENT: His head was atraumatic. His eyes were closed. Upon opening, they moved to noxious stimuli. Unable to get a proper eye examination. His oropharynx was clear with dry membranes. He has some possible thrush in the hard palate and soft palate area. Neck: Supple without JVD. Chest: Normal expansion and excursion. Cardiovascular: Regular rhythm, irregular rate with tachycardia. Pulmonary: Clear to auscultation bilaterally. Abdomen: Soft, nontender with minimal distention. No rebound. No guarding. No focal peritonitis. He did not react to deep palpation. As such, I do not find the patient had any tenderness on physic al examination. He does have a PEG tube in place on the left upper side and an indwelling Fragoso cath eter in place. He also had an NG tube in place. Extremities: No clubbing, cyanosis, or edema. Skin: Warm and dry. Laboratory Data: Reveals a white count 21, hemoglobin 10.8, hematocrit 33.2, platelet count was 425. Neutrophils were 90%. His bands were 23%. His PT 16.2, INR 1.4. Lactic acid was 2.8. His electr olytes show sodium 132, potassium 4.6, chloride 99, carbon dioxide 21, BUN 60, creatinine is 2.95, gl ucose is 199. His pH was 7.46, pCO2 29, pO2 was 72, bicarb was 20.5. Methemoglobin 0.9, carboxyhemo globin 1.5. O2 saturation was 93% measured, inspired O2 of 21%. His urinalysis showed too many whit e blood cells to count. COVID, he was positive. Influenza and RSV negative. He had imaging perform ed, which included a CT of the abdomen and pelvis, officially read as findings suggestive small bowel ileus/developing obstruction, bladder wall thickening with surrounding inflammation, findings may be secondary to incomplete distention and cystitis within the differential. He had a head CT as well, officially read as age-related atrophy and chronic white matter ischemic changes with no evidence of an acute intracranial abnormality. Abdominal ultrasound pending and chest x-ray officially read as a n NG tube within the tip just below the diaphragm, consider advancing 10 cm. Heart is not enlarged. Lungs; no consolidation, pneumothorax or pleural effusion. Upper abdomen, no additional findings. Assessment And Plan: This is a 65-year-old male, who comes in with signs and symptoms of acute urina ry tract infection, likely causing his septic reaction and altered mental status. I do not find the patient has signs and symptoms of significant ileus/bowel obstruction. On imaging, there is some romeo dence of a possible early ileus, but likely related to his overall clinical picture. I do not see an obstructive process obviously based on imaging at this time; however, we will continue serial exams and follow along with you. 1.Continue medical management, IV fluids. 2.Remove NG tube and use PEG tube as decompression low intermittent suction recommended. 3.Continue IV fluid hydration. 4.I will follow along with you. Thank you for this interesting consult. JENNIFER/CAROL Voice ID: [id number] Report ID: [id number]
--- NOTE | 2021-05-11 12:30 | RAD REPORT ---
EXAM DESCRIPTION: CT Head Without Intravenous Contrast CLINICAL HISTORY: The patient is 65 years old and is Male; AMS TECHNIQUE: Axial computed tomography images of the head/brain without intravenous contrast. Sagitt al and coronal reformatted images were created and reviewed. This CT exam was performed using one o r more of the following dose reduction techniques: automated exposure control, adjustment of the mA and/or kV according to patient size, and/or use of iterative reconstruction technique. COMPARISON: No relevant prior studies available. FINDINGS: BRAIN: Encephalomalacia within the left frontal lobe is present. There is diffuse cerebr al atrophy present, consistent with this patient's age. There is patchy hypoattenuation of the deep white matter which is non-specific, but most likely owing to chronic small vessel ischemic change in a patient of this age group. No intracranial hemorrhage, mass effect, midline shift is seen. There are no extra-axial fluid collections. VENTRICLES: Unremarkable. No ventriculomegaly. BONES/JOINTS: No acute fracture. SOFT TISSUES: Unremarkable. SINUSES: Unremarkable as visualized. No acute sinusitis. MASTOID AIR CELLS: Unremarkable as visualized. No mastoid effusion. ORBITS: Unremarkable as visualized. IMPRESSION: Age-related atrophy and chronic white matter ischemic changes, with no evidence of an ac [place] intracranial abnormality. Electronically signed by: Yara Art MD 05/11/2021 12:42 AM MANUAL MACHINIST Due to temporary technical issues with the PACS/Fluency reporting system, reports are being signed by the in house radiologists without review as a courtesy to insure prompt reporting. The interpreting radiologist is fully responsible for the content of the report.
--- NOTE | 2021-05-11 12:34 | RAD REPORT ---
EXAM DESCRIPTION: CT Abdomen and Pelvis Without Intravenous Contrast CLINICAL HISTORY: The patient is 65 years old and is Male; ABDOMINAL DISTENTION TECHNIQUE: Axial computed tomography images of the abdomen and pelvis without intravenous contrast. Sagittal and coronal reformatted images were created and reviewed. This CT exam was performed usi ng one or more of the following dose reduction techniques: automated exposure control, adjustment o f the mA and/or kV according to patient size, and/or use of iterative reconstruction technique. COMPARISON: No relevant prior studies available. FINDINGS: LUNG BASES: Unremarkable. No mass. No consolidation. ABDOMEN: LIVER: Homogeneous without focal mass. GALLBLADDER AND BILE DUCTS: Gallbladder is contracted. PANCREAS: Unremarkable. No ductal dilation. SPLEEN: Unremarkable. ADRENALS: Unremarkable. No mass. KIDNEYS AND URETERS: No obstructing stones. No hydronephrosis. No perinephric fluid. STOMACH AND BOWEL: The stomach is distended with fluid and air. The proximal small bowel is fluid -filled and demonstrate several air-fluid levels. The remainder the small bowel is normal in caliber. A moderate amount stool is present throughout colon. Scattered colonic diverticula are noted without surrounding inflammation. PELVIS: APPENDIX: The appendix is normal in caliber without surrounding inflammation. BLADDER: A Fragoso catheter is present within the bladder which is decompressed. Air is present wit hin the bladder which is likely secondary to Fragoso catheter placement. Mild diffuse bladder wall th ickening with surrounding inflammation is noted. No stones. REPRODUCTIVE: Unremarkable as visualized. ABDOMEN and PELVIS: INTRAPERITONEAL SPACE: Unremarkable. No free air. No significant fluid collection. BONES/JOINTS: No acute fracture. SOFT TISSUES: The soft tissues are normal. VASCULATURE: Unremarkable. No abdominal aortic aneurysm. LYMPH NODES: Unremarkable. No enlarged lymph nodes. TUBES, LINES AND DEVICES: A gastrostomy tube is present within the stomach. IMPRESSION: 1. Findings suggest a small bowel ileus/developing obstruction. 2. Bladder wall thickening with surrounding inflammation. While findings may be secondary to incomp lete distention, cystitis is within the differential. Electronically signed by: Yara Art MD 05/11/2021 12:45 AM MANAGER CLIENT Due to temporary technical issues with the PACS/Fluency reporting system, reports are being signed by the in house radiologists without review as a courtesy to insure prompt reporting. The interpreting radiologist is fully responsible for the content of the report.
[2021-05-11] MEDS ORDERED: NA CHLORIDE 0.9% 1,000 ML IV ONE (13:39)
--- NOTE | 2021-05-11 13:39 | P.CNS ---
Date of Consult: 05/11/21 Reason for Consult: elevated creatinine Primary Care Provider: Matthew Chief Complaint: UTI, ARF, sepsis History of Present Illness: 65 yr ol male with HTN/DM/CVA with marked dysphasia, residential resident/peg tube /chronic indwelling amato admitted for decrased responsiveness, noed with GORGE with cr to 2.92 ,Purulent amato discharge , CT showing cystitis with thickened bladder and SBO renal consulted for azotemia and hyperkalemia k 6.8 with low sodium at 128 on IVF , still persistent low BP with systolic in the 80s now Allergies No Known Allergies Allergy (Unverified 05/11/21 09:07) - Past Medical/Surgical History Diabetic: Yes -: CVA -: HTN -: T2DM -: HLD -: FTT -: GERD -: BPH -: hemiplegia, dysphagia, weakness, aphasia -: Gastrostomy tube - Social History Smoking Status: Unknown if ever smoked Counseled patient to stop smoking for: less than [address] of Residence: [facility]irement Review of Systems is unable to be obtained (dysphasia) Physical Examination Temp Pulse Resp BP Pulse Ox 99.4 F 102 H 19 113/67 96 05/11/21 09:54 05/11/21 09:54 05/11/21 09:54 05/11/21 09:54 05/11/21 09:54 General: Alert, Cooperative HEENT: Atraumatic, Mucous membr. moist/pink Neck: Supple, 2+ carotid pulse no bruit Respiratory: Clear to auscultation bilaterally, Normal air movement Cardiovascular: No edema, Regular rate/rhythm, Normal S1 S2 Gastrointestinal: Normal bowel sounds, Soft and benign, Non-distended, No ascites, No tenderness Musculoskeletal: No swelling Neurological: Other (dysphasic, ) Urinary: Bladder distention, Amato catheter Laboratory Data (last 24 hrs) 05/11/21 03:00: Sodium 132 L, Potassium 4.6, BUN 60 H, Creatinine 2.95 H, Glucose 199 H, Uric Acid 6.9 05/11/21 00:00: PT 16.2 H, INR 1.40 05/11/21 00:00: WBC 21.00 H*, Hgb 10.8 L, Hct 33.2 L, Plt Count 425 H 05/11/21 00:00: Sodium 128 L, Potassium 6.8 H*, BUN 66 H, Creatinine 3.75 H, Glucose 159 H, Magnesium 2.8 H, Total Bilirubin 0.5, AST 32, ALT 35, Alkaline Phosphatase 160 H Physician Review Additional Text: General - thin built , awake , on RA , elderly male Heent -elenita,eomi Neck -no JVD, no bruit Resp - clear lung , diminshed bases CV -sis2, rrr GI- full, soft abd , BS + peg - amato + , lev urine , RERE- no pedal edema b/l Neuro - dysphasia, +paraplegia A/P Presumed SBO GORGE Hyperkalemia -resolved Hyponatremia Septic shock UTI Neurogenic bladder Presumed cystitis with possible amato dysfunction Hx of CVA DM PLAN - cr improving to 2.2 -continue IVF -bolus NS 1 L now since still hypotension -k improving , avoid k loading fluids -increase IVF to 100cc/hr -follow bmp daily sdoium improving -c/w abx and strict glycemic control -cystitis likley due to clogged amato since associated thickened bladder -may need suprapubic cath as outpt , no hydro on renal imaging
[2021-05-11] MEDS: NA CHLORIDE 0.9% 1,000 ML IV SCH ×2 (13:42→20:22)
--- NOTE | 2021-05-11 14:27 | RAD REPORT ---
EXAM DESCRIPTION: Chest Single View CLINICAL HISTORY: Post NGT COMPARISON: None. FINDINGS: Single frontal view of the chest. Tubes and lines: NG tube with tip just below the diaphragm. Leads overlie the chest. Cardiomediastinal silhouette: Heart is not enlarged. Lungs: No consolidation, pneumothorax, or pleural effusion. Bones: No acute abnormalities identified. Upper abdomen: No additional findings. IMPRESSION: 1. NG tube with tip just below the diaphragm. Consider advancing 10 cm. Electronically signed by: Ángel Luna 05/11/2021 4:58 AM VISUAL SUPERVISOR Due to temporary technical issues with the PACS/Fluency reporting system, reports are being signed by the in house radiologists without review as a courtesy to insure prompt reporting. The interpreting radiologist is fully responsible for the content of the report.
[2021-05-11 14:28] LABS: Potassium 3.8 mmol/L (3.5-5.1)
[2021-05-12] MEDS: CEFEPIME 1 GM in NA CHLORIDE 0.9% 100 ML IV SCH ×2
[2021-05-12] MEDS ORDERED: CEFEPIME 1 GM/VIAL ONE (00:36)
[2021-05-12] MEDS ORDERED: NA CHLORIDE 0.9% 100 ML ONE (00:37)
[2021-05-12] MEDS ORDERED: HEPARIN 5000 UNIT/ML 1 ML VIAL ONE ×3 (00:37→17:04)
[2021-05-12] MEDS: HEPARIN 5000 UNIT/ML 1 ML VIAL SQ SCH ×3 (00:40→17:00)
[2021-05-12] MEDS ORDERED: TETANUS & DIPHTHERIA TOX,ADULT 0.5 ML VIAL ONE (02:26)
[2021-05-12 03:15] LABS: Absolute Lymphocytes (CBC) 0.9 K/uL (0.7-4.9); Hematocrit 26.6 % (39.6-49.0); Lymphocytes % 4.8 % (15.3-44.8); RBC Red Blood Cell Count 2.88 M/uL (4.33-5.43)
[2021-05-12 03:37] LABS: Albumin 1.3 g/dL (3.4-5.0); Bilirubin Total 0.3 mg/dL (0.2-1.0); Protein, Total 6.6 g/dL (6.4-8.2)
[2021-05-12 03:39] LABS: Potassium 2.9 mmol/L (3.5-5.1)
[2021-05-12] MEDS ORDERED: KCL 20 MEQ/100 mL IVPB 100 ML IV ONE (04:15)
[2021-05-12 04:28] LABS: Blood Morphology Comment NOT SEEN (NOT SEEN); Platelet Estimate ADEQ
[2021-05-12] MEDS: NA CHLORIDE 0.9% 1,000 ML IV SCH (05:00)
[2021-05-12] MEDS ORDERED: NA CHLORIDE 0.9% 1,000 ML ONE (05:28)
[2021-05-12] MEDS: INSULIN -REGULAR HUMAN 50 UNIT/0.5 ML ML SQ SCH ×4 (06:00→18:00)
[2021-05-12] MEDS: D50W 25 GM/50 ML SYRINGE IV PRN ×3 (06:06→22:33)
[2021-05-12] MEDS ORDERED: D50W 25 GM/50 ML SYRINGE IV ONE ×3 (06:07→22:32)
[2021-05-12] MEDS ORDERED: KCL 20 MEQ/100 mL IVPB 20 MEQ/100 ML BAG IV SCH ×2 (07:00→13:00)
[2021-05-12] MEDS ORDERED: POTASSIUM 25 MEQ EFFERV TAB PO ONE (07:17)
[2021-05-12] MEDS: POTASSIUM CL 40 MEQ in NA CHLORIDE 0.9% 500 ML IV SCH ×2 (08:00→12:00)
[2021-05-12] MEDS ORDERED: POTASSIUM 25 MEQ EFFERV TAB ONE (09:43)
[2021-05-12] MEDS ORDERED: VANCOMYCIN 1.25 GM in NA CHLORIDE 0.9% 250 ML IVPB SCH (10:00)
[2021-05-12] MEDS: Ringers Lactate 1,000 ML IV SCH ×2 (12:57→22:39)
[2021-05-12] MEDS ORDERED: Ringers Lactate 1,000 ML IV ONE ×2 (12:58→22:37)
[2021-05-12 12:59] LABS: Magnesium 1.7
--- NOTE | 2021-05-12 13:09 | P.PN ---
Subjective Date of Service: 05/12/21 Primary Care Provider: Matthew Chief Complaint: UTI, ARF, sepsis Subjective: No new changes Physical Examination - Vital Signs Temperature: 96.9 F Blood Pressure: 120/63 Pulse: 103 Respirations: 20 Pulse Ox (%): 94 - Studies Microbiology Data (last 24 hrs): 05/11/21 00:00 Blood - Blood Blood Culture Gram Stain - Final 05/11/21 03:00 Blood - Blood Anaerobic Blood Culture - Final Assessment And Plan - Current Problems (Diagnosis) (1) Acute renal failure Current Visit: Yes Status: Acute Qualifiers: Acute renal failure type: unspecified Qualified Code(s): N17.9 - Acute kidney failure, unspecified (2) Hyperkalemia Current Visit: Yes Status: Acute (3) Ileus Current Visit: Yes Status: Acute (4) Sepsis Current Visit: Yes Status: Acute Qualifiers: Sepsis type: sepsis due to unspecified organism Sepsis acute organ dysfunction status: with acute organ dysfunction Severe sepsis acute organ dysfunction type: acute renal failure Acute renal failure type: unspecified Severe sepsis shock status: without septic shock Qualified Code(s): A41.9 - Sepsis, unspecified organism; R65.20 - Severe sepsis without septic shock; N17.9 - Acute kidney failure, unspecified (5) UTI (urinary tract infection) Current Visit: Yes Status: Acute Qualifiers: Urinary tract infection type: acute cystitis Hematuria presence: without hematuria Qualified Code(s): N30.00 - Acute cystitis without hematuria (6) BPH (benign prostatic hyperplasia) Current Visit: Yes Status: Chronic Qualifiers: Lower urinary tract symptom presence: unspecified whether lower urinary tract symptoms present Qualified Code(s): N40.0 - Benign prostatic hyperplasia without lower urinary tract symptoms (7) CVA (cerebral vascular accident) Current Visit: Yes Status: Chronic Qualifiers: CVA mechanism: unspecified Qualified Code(s): I63.9 - Cerebral infarction, unspecified Physician Review: Patient Assessed, Agree with Above Assessment and Plan Physician Review Additional Text: General - Thin built , awake , on RA , elderly male Heent -elenita,eomi Neck -no JVD, no bruit Resp - clear lung , diminshed bases CV -sis2, rrr GI- full, soft abd , BS + peg tube in situ - amato + , lev urine , RERE- no pedal edema b/l Neuro -relatively aphasic, +paraplegia A/P Presumed SBO-possibly due to ileus GORGE Hyperkalemia -resolved Hyponatremia Septic shock UTI Neurogenic bladder Presumed cystitis with possible amato dysfunction Hx of CVA DM PLAN - cr improving -Markedly low potassium, replete with 100 mEq IV today Switch IVF from normal saline to lactated Ringer's General surgery discussed with, continue PEG tube at low social Follow-up plan for resolution of sepsis before initiating PEG tube feeding Hypotension resolved, continue gentle IV fluid -c/w abx and strict glycemic control -cystitis/UTI likley due to clogged amato since associated thickened bladder -may need suprapubic cath as outpt , no hydro on renal imaging
--- NOTE | 2021-05-12 15:41 | P.PN ---
Subjective Date of Service: 05/12/21 Primary Care Provider: Matthew Chief Complaint: UTI, ARF, sepsis Subjective: No new changes (Unable to obtain ROS.) Physical Examination - Vital Signs Temperature: 96.9 F Blood Pressure: 120/63 Pulse: 103 Respirations: 20 Pulse Ox (%): 94 - Physical Exam General: In no apparent distress, Other (aphasic) HEENT: Atraumatic, Normocephalic Respiratory: Normal air movement, Diminished Cardiovascular: Normal pulses, Regular rate/rhythm, Normal S1 S2 Gastrointestinal: Soft and benign, Non-distended, Other (PEG tube, wall suction) - Studies Microbiology Data (last 24 hrs): 05/11/21 00:00 Blood - Blood Blood Culture Gram Stain - Final 05/11/21 03:00 Blood - Blood Anaerobic Blood Culture - Final Assessment & Plan Physician Review: Patient Assessed, Agree with Above Assessment and Plan Physician Review Additional Text: Assessment Patient is a 65-year-old male with a past medical history of CVA with right-sided hemiplegia, status post PEG for dysphagia. He is currently aphasic. He is brought in from the alf where he was found unresponsive. Is coming from [facility]. On arrival he was found to have a purulent drainage from his Amato catheter which was exchanged in the ER. Was empirically started on antibiotics. His CT abdomen and pelvis was suggestive of small bowel obstruction versus ileus. Is currently getting intermittent wall suctioning via PEG by surgery. Presumed SBO-possibly due to ileus GORGE Hypokalemia Hyponatremia Septic shock UTI Neurogenic bladder Presumed cystitis with possible amato dysfunction Hx of CVA DM PLAN Continue intermittent wall suctioning Serial abdominal x-rays. I appreciate assistance from surgery Continue broad-spectrum antibiotics with vancomycin and cefepime Monitor CBC daily Replaced potassium today. Repeat BMP pending GORGE is nearly resolved. Appreciate assistance from nephrology Provide remaining of supportive care with Amato and bowel regimen
[2021-05-12 20:03] LABS: BUN Blood Urea Nitrogen 24 mg/dL (7-18); Bicarbonate 26 mmol/L (21-32); Glucose Level 89 mg/dL (74-106); Potassium 3.5 mmol/L (3.5-5.1); Sodium Level 142 mmol/L (136-145)
[2021-05-13] MEDS: HEPARIN 5000 UNIT/ML 1 ML VIAL SQ SCH ×3 (01:10→17:28)
[2021-05-13] MEDS: CEFEPIME 1 GM in NA CHLORIDE 0.9% 100 ML IV SCH ×2 (01:10→23:22)
[2021-05-13] MEDS: D50W 25 GM/50 ML SYRINGE IV PRN (01:44)
[2021-05-13] MEDS: D5W 1,000 ML IV SCH ×3 (01:55→23:27)
[2021-05-13] MEDS ORDERED: D5W 1,000 ML IV ONE (01:56)
[2021-05-13] MEDS ORDERED: VANCOMYCIN 1.25 GM in NA CHLORIDE 0.9% 250 ML IVPB SCH (02:00)
[2021-05-13 03:54] LABS: Absolute Lymphocytes (CBC) 1.6 K/uL (0.7-4.9); Hematocrit 25.7 % (39.6-49.0); Lymphocytes % 10.7 % (15.3-44.8); MPV 6.9 fL (7.6-11.3); RBC Red Blood Cell Count 2.83 M/uL (4.33-5.43)
[2021-05-13 04:08] LABS: ALT/SGPT 46 U/L (12-78); AST/SGOT 54 U/L (15-37); Albumin 1.3 g/dL (3.4-5.0); Alkaline Phosphatase 146 U/L (45-117); BUN Blood Urea Nitrogen 19 mg/dL (7-18); Bicarbonate 27 mmol/L (21-32); Bilirubin Total 0.3 mg/dL (0.2-1.0); Glucose Level 119 mg/dL (74-106); Protein, Total 6.6 g/dL (6.4-8.2); Sodium Level 140 mmol/L (136-145)
[2021-05-13 04:09] LABS: Potassium 2.9 mmol/L (3.5-5.1)
[2021-05-13] MEDS ORDERED: KCL 20 MEQ/100 mL IVPB 20 MEQ/100 ML BAG IV SCH ×3 (05:00→09:00)
[2021-05-13] MEDS: INSULIN -REGULAR HUMAN 50 UNIT/0.5 ML ML SQ SCH ×4 (06:00→18:00)
--- NOTE | 2021-05-13 08:57 | RAD REPORT ---
EXAM DESCRIPTION: RAD - Abdomen 1 View (KUB) - 05/13/2021 8:45 am CLINICAL HISTORY: ileus COMPARISON: Abdomen 1 View (KUB) dated 05/11/2021 FINDINGS: Nonobstructive bowel gas pattern. No acute osseous abnormality.Visualized lungs are unrema rkable.No abnormal calcifications. Gastrostomy tube. IMPRESSION: Nonobstructive bowel gas pattern. Small bowel dilatation has resolved.
[2021-05-13 09:08] LABS: BUN Blood Urea Nitrogen 17 mg/dL (7-18); Bicarbonate 27 mmol/L (21-32); Glucose Level 102 mg/dL (74-106); Sodium Level 137 mmol/L (136-145)
[2021-05-13] MEDS: KCL 20 MEQ/100 mL IVPB 20 MEQ/100 ML BAG IV SCH ×2 (11:31→14:34)
--- NOTE | 2021-05-13 12:42 | P.PN ---
Subjective Date of Service: 05/12/21 Primary Care Provider: Matthew Chief Complaint: UTI, ARF, sepsis Subjective: Improving (Patient remains pain free, no bowel function, minimal tenderness, PEG not on suction as instructed.) Physical Examination - Vital Signs Temperature: 98.7 F Blood Pressure: 139/69 Pulse: 94 Respirations: 20 Pulse Ox (%): 94 - Physical Exam General: Alert, In no apparent distress, Cooperative, Confused Gastrointestinal: Soft and benign, Non-distended, No ascites, No tenderness, No masses, No rebound, No guarding, Other (PEG in place) - Studies Microbiology Data (last 24 hrs): 05/11/21 00:08 Catheterized Urine [place] Count - Final >100,000 CFU/ML. 05/11/21 00:08 Catheterized Urine - Final Staph Aureus Pseudomonas Aeruginosa Gram Neg Brian 05/11/21 03:00 Blood - Blood Anaerobic Blood Culture - Final 05/11/21 00:00 Blood - Blood Blood Culture Gram Stain - Final Assessment And Plan - Current Problems (Diagnosis) (1) Ileus Current Visit: Yes Status: Acute Plan: - continue NPO until electrolyte correction improved - will restart PEG feedings soon - serial exams - continue medical management Physician Review: Patient Assessed, Agree with Above Assessment and Plan Physician Review Additional Text: Assessment Patient is a 65-year-old male with a past medical history of CVA with right-sided hemiplegia, status post PEG for dysphagia. He is currently aphasic. He is brought in from the intermediate where he was found unresponsive. Is coming from [facility]. On arrival he was found to have a purulent drainage from his Amato catheter which was exchanged in the ER. Was empirically started on antibiotics. His CT abdomen and pelvis was suggestive of small bowel obstruction versus ileus. Is currently getting intermittent wall suctioning via PEG by surgery. Presumed SBO-possibly due to ileus GORGE Hypokalemia Hyponatremia Septic shock UTI Neurogenic bladder Presumed cystitis with possible amato dysfunction Hx of CVA DM PLAN Continue intermittent wall suctioning Serial abdominal x-rays. I appreciate assistance from surgery Continue broad-spectrum antibiotics with vancomycin and cefepime Monitor CBC daily Replaced potassium today. Repeat BMP pending GORGE is nearly resolved. Appreciate assistance from nephrology Provide remaining of supportive care with Amato and bowel regimen
--- NOTE | 2021-05-13 12:44 | P.PN ---
Subjective Date of Service: 05/13/21 Primary Care Provider: Matthew Chief Complaint: UTI, ARF, sepsis Subjective: No new changes Physical Examination - Vital Signs Temperature: 98.7 F Blood Pressure: 139/69 Pulse: 94 Respirations: 20 Pulse Ox (%): 94 - Physical Exam General: Alert, In no apparent distress, Confused Gastrointestinal: Normal bowel sounds, Soft and benign, No ascites, No masses, No rebound, No guarding, Other (minimal tenderness on deep palpation) - Studies Microbiology Data (last 24 hrs): 05/11/21 00:08 Catheterized Urine [place] Count - Final >100,000 CFU/ML. 05/11/21 00:08 Catheterized Urine - Final Staph Aureus Pseudomonas Aeruginosa Gram Neg Brian 05/11/21 03:00 Blood - Blood Anaerobic Blood Culture - Final 05/11/21 00:00 Blood - Blood Blood Culture Gram Stain - Final Assessment And Plan - Current Problems (Diagnosis) (1) Ileus Current Visit: Yes Status: Acute Plan: - continue NPO until electrolyte correction improved - will restart PEG feedings soon - serial exams - continue medical management - KUB reviewed - improved, will start feeds in AM if continued improvement Physician Review: Patient Assessed, Agree with Above Assessment and Plan Physician Review Additional Text: Assessment Patient is a 65-year-old male with a past medical history of CVA with right-sided hemiplegia, status post PEG for dysphagia. He is currently aphasic. He is brought in from the group home where he was found unresponsive. Is coming from [facility]. On arrival he was found to have a purulent drainage from his Amato catheter which was exchanged in the ER. Was empirically started on antibiotics. His CT abdomen and pelvis was suggestive of small bowel obstruction versus ileus. Is currently getting intermittent wall suctioning via PEG by surgery. Presumed SBO-possibly due to ileus GORGE Hypokalemia Hyponatremia Septic shock UTI Neurogenic bladder Presumed cystitis with possible amato dysfunction Hx of CVA DM PLAN Continue intermittent wall suctioning Serial abdominal x-rays. I appreciate assistance from surgery Continue broad-spectrum antibiotics with vancomycin and cefepime Monitor CBC daily Replaced potassium today. Repeat BMP pending GORGE is nearly resolved. Appreciate assistance from nephrology Provide remaining of supportive care with Amato and bowel regimen
--- NOTE | 2021-05-13 13:48 | P.PN ---
Subjective Date of Service: 05/13/21 Primary Care Provider: Matthew Chief Complaint: UTI, ARF, sepsis Subjective: Improving (Appears more alert and awake) Physical Examination - Vital Signs Temperature: 98.7 F Blood Pressure: 139/69 Pulse: 94 Respirations: 20 Pulse Ox (%): 94 - Physical Exam General: Alert, In no apparent distress, Other (aphasic) HEENT: Atraumatic, Normocephalic Respiratory: Other (unlaboured breathing) Cardiovascular: No edema Gastrointestinal: Soft and benign, Non-distended, Other (PEG tube) Musculoskeletal: No clubbing, No swelling Neurological: Other (aphasic. R sided hemiplegia) - Studies Microbiology Data (last 24 hrs): 05/11/21 00:08 Catheterized Urine [place] Count - Final >100,000 CFU/ML. 05/11/21 00:08 Catheterized Urine - Final Staph Aureus Pseudomonas Aeruginosa Gram Neg Brian 05/11/21 03:00 Blood - Blood Anaerobic Blood Culture - Final 05/11/21 00:00 Blood - Blood Blood Culture Gram Stain - Final Assessment And Plan - Current Problems (Diagnosis) (1) Acute renal failure Current Visit: Yes Status: Acute Qualifiers: Acute renal failure type: unspecified Qualified Code(s): N17.9 - Acute kidney failure, unspecified (2) COVID Current Visit: Yes Status: Acute (3) Hyperkalemia Current Visit: Yes Status: Acute (4) Ileus Current Visit: Yes Status: Acute (5) Sepsis Current Visit: Yes Status: Acute Qualifiers: Sepsis type: sepsis due to unspecified organism Sepsis acute organ dysfunction status: with acute organ dysfunction Severe sepsis acute organ dysfunction type: acute renal failure Acute renal failure type: unspecified Severe sepsis shock status: without septic shock Qualified Code(s): A41.9 - Sepsis, unspecified organism; R65.20 - Severe sepsis without septic shock; N17.9 - Acute kidney failure, unspecified (6) UTI (urinary tract infection) Current Visit: Yes Status: Acute Qualifiers: Urinary tract infection type: acute cystitis Hematuria presence: without hematuria Qualified Code(s): N30.00 - Acute cystitis without hematuria (7) BPH (benign prostatic hyperplasia) Current Visit: Yes Status: Chronic Qualifiers: Lower urinary tract symptom presence: unspecified whether lower urinary tract symptoms present Qualified Code(s): N40.0 - Benign prostatic hyperplasia without lower urinary tract symptoms (8) CVA (cerebral vascular accident) Current Visit: Yes Status: Chronic Qualifiers: CVA mechanism: unspecified Qualified Code(s): I63.9 - Cerebral infarction, unspecified (9) GERD (gastroesophageal reflux disease) Current Visit: Yes Status: Chronic Qualifiers: Esophagitis presence: without esophagitis Qualified Code(s): K21.9 - Gastro-esophageal reflux disease without esophagitis (10) Gastrostomy tube dependent Current Visit: Yes Status: Chronic (11) HLD (hyperlipidemia) Current Visit: Yes Status: Chronic Qualifiers: Hyperlipidemia type: unspecified Qualified Code(s): E78.5 - Hyperlipidemia, unspecified (12) HTN (hypertension) Current Visit: Yes Status: Chronic Qualifiers: Hypertension type: primary hypertension Qualified Code(s): I10 - Essential (primary) hypertension (13) T2DM (type 2 diabetes mellitus) Current Visit: Yes Status: Chronic Qualifiers: Diabetes mellitus computer terminal operator insulin use: unspecified computer terminal operator insulin use status Diabetes mellitus complication status: without complication Qualified Code(s): E11.9 - Type 2 diabetes mellitus without complications Physician Review: Patient Assessed, Agree with Above Assessment and Plan Physician Review Additional Text: Assessment Patient is a 65-year-old male with a past medical history of CVA with right-sided hemiplegia, status post PEG for dysphagia. He is currently aphasic. [facility]. Is coming from [facility]. On arrival he was found to have a purulent drainage from his Amato catheter which was exchanged in the ER. Was empirically started on antibiotics. His CT abdomen and pelvis was suggestive of small bowel obstruction versus ileus. He is currently getting intermittent wall suctioning via PEG by surgery. Presumed SBO-possibly due to ileus GORGE Hypokalemia Hyponatremia Septic shock UTI Neurogenic bladder Presumed cystitis with possible amato dysfunction Hx of CVA DM PLAN NPO Serial abd x rays as per Surgery Resume tube feeds if cleared by Surgery Cultures reviewed. Continue cefepime and DC vancomycin Monitor CBC daily Patient can be discharged after he's resumed on tube feeds Provide remaining of supportive care with Amato and bowel regimen
--- NOTE | 2021-05-13 19:05 | P.PN ---
Subjective Date of Service: 05/13/21 Primary Care Provider: Matthew Chief Complaint: UTI, ARF, sepsis Subjective: No new changes, No C/O voiced Physical Examination - Vital Signs Temperature: 97.7 F Blood Pressure: 154/89 Pulse: 100 Respirations: 20 Pulse Ox (%): 94 - Studies Microbiology Data (last 24 hrs): 05/11/21 00:08 Catheterized Urine [place] Count - Final >100,000 CFU/ML. 05/11/21 00:08 Catheterized Urine - Final Staph Aureus Pseudomonas Aeruginosa Gram Neg Brian 05/11/21 03:00 Blood - Blood Anaerobic Blood Culture - Final 05/11/21 00:00 Blood - Blood Blood Culture Gram Stain - Final Assessment And Plan - Current Problems (Diagnosis) (1) Acute renal failure Current Visit: Yes Status: Acute Qualifiers: Acute renal failure type: unspecified Qualified Code(s): N17.9 - Acute kidney failure, unspecified (2) Hyperkalemia Current Visit: Yes Status: Acute (3) Ileus Current Visit: Yes Status: Acute (4) Sepsis Current Visit: Yes Status: Acute Qualifiers: Sepsis type: sepsis due to unspecified organism Sepsis acute organ dysfunction status: with acute organ dysfunction Severe sepsis acute organ dysfunction type: acute renal failure Acute renal failure type: unspecified Severe sepsis shock status: without septic shock Qualified Code(s): A41.9 - Sepsis, unspecified organism; R65.20 - Severe sepsis without septic shock; N17.9 - Acute kidney failure, unspecified (5) UTI (urinary tract infection) Current Visit: Yes Status: Acute Qualifiers: Urinary tract infection type: acute cystitis Hematuria presence: without hematuria Qualified Code(s): N30.00 - Acute cystitis without hematuria (6) BPH (benign prostatic hyperplasia) Current Visit: Yes Status: Chronic Qualifiers: Lower urinary tract symptom presence: unspecified whether lower urinary tract symptoms present Qualified Code(s): N40.0 - Benign prostatic hyperplasia without lower urinary tract symptoms (7) CVA (cerebral vascular accident) Current Visit: Yes Status: Chronic Qualifiers: CVA mechanism: unspecified Qualified Code(s): I63.9 - Cerebral infarction, unspecified Physician Review: Patient Assessed, Agree with Above Assessment and Plan Physician Review Additional Text: PLAN General - Thin built , awake , on RA , elderly male Heent -elenita,eomi Neck -no JVD, no bruit Resp - clear lung , diminshed bases CV -sis2, rrr GI- full, soft abd , BS + peg tube in situ - amato + , lev urine , RERE- no pedal edema b/l Neuro -relatively aphasic, +paraplegia A/P Presumed SBO-possibly due to ileus GORGE Hyperkalemia -resolved Hyponatremia Septic shock UTI Neurogenic bladder Presumed cystitis with possible amato dysfunction Hx of CVA DM PLAN - cr improving to 1.3 -c/w to replete k -c/w LR -c/w PEG tube feeding Hypotension resolved, continue gentle IV fluid -c/w abx and strict glycemic control -cystitis/UTI likely due to clogged amato since associated thickened bladder -may need suprapubic cath as outpt , no hydro on renal imaging
[2021-05-14] MEDS ORDERED: KCL 20 MEQ/100 mL IVPB 200 ML IV ONE (00:48)
[2021-05-14] MEDS: HEPARIN 5000 UNIT/ML 1 ML VIAL SQ SCH ×3 (00:52→17:19)
[2021-05-14] MEDS: INSULIN -REGULAR HUMAN 50 UNIT/0.5 ML ML SQ SCH ×4 (06:00→17:21)
[2021-05-14 07:55] LABS: Absolute Lymphocytes (CBC) 1.5 K/uL (0.7-4.9); Hematocrit 27.9 % (39.6-49.0); Lymphocytes % 11.6 % (15.3-44.8); MPV 6.4 fL (7.6-11.3); RBC Red Blood Cell Count 3.09 M/uL (4.33-5.43)
[2021-05-14 08:10] LABS: ALT/SGPT 46 U/L (12-78); AST/SGOT 47 U/L (15-37); Albumin 1.4 g/dL (3.4-5.0); Alkaline Phosphatase 139 U/L (45-117); BUN Blood Urea Nitrogen 13 mg/dL (7-18); Bicarbonate 26 mmol/L (21-32); Bilirubin Total 0.3 mg/dL (0.2-1.0); Glucose Level 104 mg/dL (74-106); Potassium 3.8 mmol/L (3.5-5.1); Sodium Level 131 mmol/L (136-145)
[2021-05-14] MEDS: D5W 1,000 ML IV SCH (09:58)
--- NOTE | 2021-05-14 12:09 | P.PN ---
Subjective Date of Service: 05/14/21 Primary Care Provider: Matthew Chief Complaint: UTI, ARF, sepsis Subjective: No new changes (MSSA bacteremia. No significant change in clinical status. He is aphasic) Physical Examination - Vital Signs Temperature: 98.4 F Blood Pressure: 140/77 Pulse: 97 Respirations: 20 Pulse Ox (%): 93 - Physical Exam General: In no apparent distress HEENT: Atraumatic, Normocephalic Respiratory: Other (unlaboured breathing) Gastrointestinal: Soft and benign (PEG tube), Non-distended Musculoskeletal: No clubbing, No swelling, No contractures Neurological: Other (R sided hemiplegia, aphasic) - Studies Microbiology Data (last 24 hrs): 05/11/21 03:00 Blood - Blood Aerobic Blood Culture - Final Staph Aureus 05/11/21 03:00 Blood - Blood Blood Culture Gram Stain - Final 05/11/21 03:00 Blood - Blood Anaerobic Blood Culture - Final 05/11/21 00:00 Blood - Blood Aerobic Blood Culture - Final Staph Aureus 05/11/21 00:00 Blood - Blood Blood Culture Gram Stain - Final 05/11/21 00:08 Catheterized Urine [place] Count - Final >100,000 CFU/ML. 05/11/21 00:08 Catheterized Urine - Final Staph Aureus Pseudomonas Aeruginosa Gram Neg Brian Assessment And Plan - Current Problems (Diagnosis) (1) Acute renal failure Current Visit: Yes Status: Acute Qualifiers: Acute renal failure type: unspecified Qualified Code(s): N17.9 - Acute kidney failure, unspecified (2) COVID Current Visit: Yes Status: Acute (3) Hyperkalemia Current Visit: Yes Status: Acute (4) Ileus Current Visit: Yes Status: Acute (5) Sepsis Current Visit: Yes Status: Acute Qualifiers: Sepsis type: sepsis due to unspecified organism Sepsis acute organ dysfunction status: with acute organ dysfunction Severe sepsis acute organ dysfunction type: acute renal failure Acute renal failure type: unspecified Severe sepsis shock status: without septic shock Qualified Code(s): A41.9 - Sepsis, unspecified organism; R65.20 - Severe sepsis without septic shock; N17.9 - Acute kidney failure, unspecified (6) UTI (urinary tract infection) Current Visit: Yes Status: Acute Qualifiers: Urinary tract infection type: acute cystitis Hematuria presence: without hematuria Qualified Code(s): N30.00 - Acute cystitis without hematuria (7) BPH (benign prostatic hyperplasia) Current Visit: Yes Status: Chronic Qualifiers: Lower urinary tract symptom presence: unspecified whether lower urinary tract symptoms present Qualified Code(s): N40.0 - Benign prostatic hyperplasia without lower urinary tract symptoms (8) CVA (cerebral vascular accident) Current Visit: Yes Status: Chronic Qualifiers: CVA mechanism: unspecified Qualified Code(s): I63.9 - Cerebral infarction, unspecified (9) GERD (gastroesophageal reflux disease) Current Visit: Yes Status: Chronic Qualifiers: Esophagitis presence: without esophagitis Qualified Code(s): K21.9 - Gastro-esophageal reflux disease without esophagitis (10) Gastrostomy tube dependent Current Visit: Yes Status: Chronic (11) HLD (hyperlipidemia) Current Visit: Yes Status: Chronic Qualifiers: Hyperlipidemia type: unspecified Qualified Code(s): E78.5 - Hyperlipidemia, unspecified (12) HTN (hypertension) Current Visit: Yes Status: Chronic Qualifiers: Hypertension type: primary hypertension Qualified Code(s): I10 - Essential (primary) hypertension (13) T2DM (type 2 diabetes mellitus) Current Visit: Yes Status: Chronic Qualifiers: Diabetes mellitus care home insulin use: unspecified exterminator insulin use status Diabetes mellitus complication status: without complication Qualified Code(s): E11.9 - Type 2 diabetes mellitus without complications Physician Review: Patient Assessed, Agree with Above Assessment and Plan Physician Review Additional Text: Assessment Patient is a 65-year-old male with a past medical history of CVA with right-sided hemiplegia, status post PEG for dysphagia. He is currently aphasic. [facility] where [facility]. He is coming from [facility]. On arrival he was found to have a purulent drainage from his Amato catheter which was exchanged in the ER. He was empirically started on antibiotics. His CT abdomen and pelvis was suggestive of small bowel obstruction versus ileus. He is currently getting intermittent wall suctioning via PEG by surgery. Found to have MSSA bacteremia Septic shock UTI MSSA bacteremia Presumed SBO-possibly due to ileus GORGE Hypokalemia Hyponatremia Neurogenic bladder Presumed cystitis with possible amato dysfunction Hx of CVA DM-2 PLAN Continue cefepime Repeat blood cx TTE to assess for infective endocarditis Will consult infectious disease NPO until cleared by surgery. Provide remaining of supportive care with Amato and bowel regimen
--- NOTE | 2021-05-14 14:05 | P.PN ---
Subjective Date of Service: 05/14/21 Primary Care Provider: Matthew Chief Complaint: UTI, ARF, sepsis Subjective: Improving Physical Examination - Vital Signs Temperature: 98.4 F Blood Pressure: 140/77 Pulse: 97 Respirations: 20 Pulse Ox (%): 93 - Physical Exam General: Alert, In no apparent distress, Cooperative Respiratory: Clear to auscultation bilaterally, Normal air movement Gastrointestinal: Soft and benign, Non-distended, No ascites, No tenderness, No masses, No rebound, No guarding, Other (PEG in place, serous fluid only) - Studies Microbiology Data (last 24 hrs): 05/11/21 03:00 Blood - Blood Aerobic Blood Culture - Final Staph Aureus 05/11/21 03:00 Blood - Blood Blood Culture Gram Stain - Final 05/11/21 03:00 Blood - Blood Anaerobic Blood Culture - Final 05/11/21 00:00 Blood - Blood Aerobic Blood Culture - Final Staph Aureus 05/11/21 00:00 Blood - Blood Blood Culture Gram Stain - Final Assessment And Plan - Current Problems (Diagnosis) (1) Ileus Current Visit: Yes Status: Acute Plan: - DC suction from PEG - will restart PEG feedings today - serial exams - continue medical management - KUB reviewed - improved, will start feeds in AM if continued improvement Physician Review: Patient Assessed, Agree with Above Assessment and Plan Physician Review Additional Text: Assessment Patient is a 65-year-old male with a past medical history of CVA with right-sided hemiplegia, status post PEG for dysphagia. He is currently aphasic. [facility] He is coming from [facility]. On arrival he was found to have a purulent drainage from his Amato catheter which was exchanged in the ER. He was empirically started on antibiotics. His CT abdomen and pelvis was suggestive of small bowel obstruction versus ileus. He is currently getting intermittent wall suctioning via PEG by surgery. Found to have MSSA bacteremia Septic shock UTI MSSA bacteremia Presumed SBO-possibly due to ileus GORGE Hypokalemia Hyponatremia Neurogenic bladder Presumed cystitis with possible amato dysfunction Hx of CVA DM-2 PLAN Continue cefepime Repeat blood cx TTE to assess for infective endocarditis Will consult infectious disease NPO until cleared by surgery. Provide remaining of supportive care with Amato and bowel regimen
--- NOTE | 2021-05-14 15:31 | P.PN ---
Subjective Date of Service: 05/14/21 Primary Care Provider: Matthew Chief Complaint: UTI, ARF, sepsis Subjective: No new changes Physical Examination - Vital Signs Temperature: 98.4 F Blood Pressure: 140/77 Pulse: 97 Respirations: 20 Pulse Ox (%): 93 - Studies Microbiology Data (last 24 hrs): 05/11/21 03:00 Blood - Blood Aerobic Blood Culture - Final Staph Aureus 05/11/21 03:00 Blood - Blood Blood Culture Gram Stain - Final 05/11/21 03:00 Blood - Blood Anaerobic Blood Culture - Final 05/11/21 00:00 Blood - Blood Aerobic Blood Culture - Final Staph Aureus 05/11/21 00:00 Blood - Blood Blood Culture Gram Stain - Final Assessment And Plan - Current Problems (Diagnosis) (1) Acute renal failure Current Visit: Yes Status: Acute Qualifiers: Acute renal failure type: unspecified Qualified Code(s): N17.9 - Acute kid kassandra failure, unspecified (2) Hyperkalemia Current Visit: Yes Status: Acute (3) Ileus Current Visit: Yes Status: Acute (4) Sepsis Current Visit: Yes Status: Acute Qualifiers: Sepsis type: sepsis due to unspecified organism Sepsis acute organ dysfunction status: with acute organ dysfunction Severe sepsis acute organ dys function type: acute renal failure Acute renal failure type: unspecified Severe sepsis shock status: without septic shock Qualified Code(s): A41.9 - Sepsis, unspecified organism; R65.20 - Severe sepsis without septic shock; N17.9 - Acute kidney failure, unspecified (5) UTI (urinary tract infection) Current Visit: Yes Status: Acute Qualifiers: Urinary tract infection type: acute cystitis Hematuria presence: without hematuria Qualified Code(s): N30.00 - Acute cystitis without hematuria (6) BPH (benign prostatic hyperplasia) Current Visit: Yes Status: Chronic Qualifiers: Lower urinary tract symptom presence: unspecified whether lower urinary tract symptoms present Qualified Code(s): N40.0 - Benign prostatic hyperplasia without lower urinary tract symptoms (7) CVA (cerebral vascular accident) Current Visit: Yes Status: Chronic Qualifiers: CVA mechanism: unspecified Qualified Code(s): I63.9 - Cerebral infarction, unspecified Physician Review: Patient Assessed, Agree with Above Assessment and Plan Physician Review Additional Text: Physical Exam General - Thin built , awake , on RA , elderly male Heent -elenita,eomi Neck -no JVD, no bruit Resp - clear lung , diminshed bases CV -sis2, rrr GI- full, soft abd , BS + peg tube in situ - amato + , lev urine , RERE- no pedal edema b/l Neuro -relatively aphasic, +paraplegia A/P Presumed SBO-possibly due to ileus GORGE Hyperkalemia -resolved Hyponatremia Septic shock UTI Neurogenic bladder Presumed cystitis with possible amato dysfunction Hx of CVA DM MSSA bacteremia PLAN - cr improving to 0.7 -serum sdoium trending donw -chnage IVF from D5W to D5NS with kcl -follow plan for resume peg tube feeding per Surgery Hypotension -resolved, continue gentle IV fluid Bacteremia -follow Echo for r/o vegetatons c/w abx DM -strict glycemic control cystitis/UTI likely due to clogged amato since associated thickened bladder -may need suprapubic cath as outpt , no hydro on renal imaging
[2021-05-14] MEDS: D5NS KCL 20MEQ 20 MEQ/1,000 ML BAG IV SCH (17:39)
[2021-05-14] MEDS: CEFEPIME 1 GM in NA CHLORIDE 0.9% 100 ML IV SCH (23:03)
[2021-05-14] MEDS: JEVITY 1.5 CAL LIQUID 1,000 ML BOT FT SCH (23:04)
[2021-05-15] MEDS: HEPARIN 5000 UNIT/ML 1 ML VIAL SQ SCH ×4 (01:00→23:58)
[2021-05-15 03:42] LABS: Absolute Lymphocytes (CBC) 1.2 K/uL (0.7-4.9); Hematocrit 28.6 % (39.6-49.0); Lymphocytes % 11.4 % (15.3-44.8); MPV 6.8 fL (7.6-11.3); RBC Red Blood Cell Count 3.18 M/uL (4.33-5.43)
[2021-05-15 04:21] LABS: ALT/SGPT 54 U/L (12-78); AST/SGOT 57 U/L (15-37); Albumin 1.3 g/dL (3.4-5.0); Alkaline Phosphatase 121 U/L (45-117); BUN Blood Urea Nitrogen 12 mg/dL (7-18); Bicarbonate 25 mmol/L (21-32); Bilirubin Total 0.3 mg/dL (0.2-1.0); Glucose Level 147 mg/dL (74-106); Potassium 3.5 mmol/L (3.5-5.1); Protein, Total 6.5 g/dL (6.4-8.2); Sodium Level 128 mmol/L (136-145)
[2021-05-15] MEDS: D5NS KCL 20MEQ 20 MEQ/1,000 ML BAG IV SCH ×2 (05:20→18:40)
[2021-05-15] MEDS ORDERED: POTASSIUM 25 MEQ EFFERV TAB PO ONE (05:56)
[2021-05-15] MEDS: INSULIN -REGULAR HUMAN 50 UNIT/0.5 ML ML SQ SCH ×4 (06:00→18:00)
[2021-05-15] MEDS ORDERED: POTASSIUM CL SA 10 MEQ TAB PO ONE (06:00)
--- NOTE | 2021-05-15 07:04 | ECHO ---
HEIGHT: 5 ft 9 in WEIGHT: 150 lb 0.04 oz DATE OF STUDY: 05/14/[address]: Prince Rob Goldman MD 2-DIMENSIONAL: YES M.MODE: YES DOPPLER: YES COLOR FLOW: YES TDS: NO PORTABLE: NO DEFINITY: NO BUBBLE STUDY: NO DIAGNOSIS: EVALUATE FOR ENDOCARDITIS CARDIAC HISTORY: CATHERIZATION: SURGERY: PROSTHETIC VALVE: PACEMAKER: MEASUREMENTS (cm) DIASTOLIC (NORMALS) SYSTOLIC (NORMALS) IVSd 0.9 (0.6-1.2) LA Diam (1.9-4.0) LVEF 55-60% LVIDd 3.3 (3.5-5.7) LVIDs 2.6 (2.0-3.5) %FS % LVPWd 1.1 (0.6-1.2) Ao Diam 2.8 (2.0-3.7) 2 DIMENSIONAL ASSESSMENT: RIGHT ATRIUM: NORMAL LEFT ATRIUM: NORMAL RIGHT VENTRICLE: NORMAL LEFT VENTRICLE: NORMAL TRICUSPID VALVE: NORMAL MITRAL VALVE: NORMAL PULMONIC VALVE: NORMAL AORTIC VALVE: NORMAL PERICARDIAL EFFUSION: NONE AORTIC ROOT: NORMAL LEFT VENTRICULAR WALL MOTION: NORMAL DOPPLER/COLOR FLOW: MILD TRICUSPID REGURGITATION. COMMENTS: NORMAL LEFT VENTRICULAR EJECTION FRACTION 55-60%. MILD TRICUSPID REGURGITATION. NO CLEAR VEGETATION IS SEEN ON THE EXAM. JESSICA CAN BE MORE HELPFUL FOR THAT. POOR WINDOWS. TECHNOLOGIST: Belia BUCHANAN
--- NOTE | 2021-05-15 08:03 | P.PN ---
Subjective Date of Service: 05/15/21 Primary Care Provider: Matthew Chief Complaint: UTI, ARF, sepsis Subjective: Improving Physical Examination - Vital Signs Temperature: 98.2 F Blood Pressure: 137/73 Pulse: 84 Respirations: 16 Pulse Ox (%): 94 - Physical Exam General: Alert, In no apparent distress, Confused Gastrointestinal: Soft and benign, Non-distended, No ascites, No tenderness, No masses, No rebound, No guarding, Other (PEG in place) - Studies Microbiology Data (last 24 hrs): 05/11/21 03:00 Blood - Blood Aerobic Blood Culture - Final Staph Aureus 05/11/21 03:00 Blood - Blood Blood Culture Gram Stain - Final 05/11/21 03:00 Blood - Blood Anaerobic Blood Culture - Final 05/11/21 00:00 Blood - Blood Aerobic Blood Culture - Final Staph Aureus 05/11/21 00:00 Blood - Blood Blood Culture Gram Stain - Final Assessment And Plan - Current Problems (Diagnosis) (1) Ileus Current Visit: Yes Status: Acute Plan: - continue PEG feedings today - serial exams - continue medical management - will sign off for now Physician Review: Patient Assessed, Agree with Above Assessment and Plan Physician Review Additional Text: Physical Exam General - Thin built , awake , on RA , elderly male Heent -elenita,eomi Neck -no JVD, no bruit Resp - clear lung , diminshed bases CV -sis2, rrr GI- full, soft abd , BS + peg tube in situ - amato + , lev urine , RERE- no pedal edema b/l Neuro -relatively aphasic, +paraplegia A/P Presumed SBO-possibly due to ileus GORGE Hyperkalemia -resolved Hyponatremia Septic shock UTI Neurogenic bladder Presumed cystitis with possible amato dysfunction Hx of CVA DM MSSA bacteremia PLAN - cr improving to 0.7 -serum sdoium trending donw -chnage IVF from D5W to D5NS with kcl -follow plan for resume peg tube feeding per Surgery Hypotension -resolved, continue gentle IV fluid Bacteremia -follow Echo for r/o vegetatons c/w abx DM -strict glycemic control cystitis/UTI likely due to clogged amato since associated thickened bladder -may need suprapubic cath as outpt , no hydro on renal imaging
[2021-05-15] MEDS: MEDIHONEY 44 ML TOPICAL TUBE TOP SCH (08:16)
[2021-05-15] MEDS: JEVITY 1.5 CAL LIQUID 1,000 ML BOT FT SCH ×3 (09:34→21:00)
[2021-05-15] MEDS ORDERED: CEFEPIME 2 GM in NA CHLORIDE 0.9% 100 ML IV SCH ×2 (10:00→17:00)
[2021-05-15] MEDS ORDERED: NA CHLORIDE 0.9% 0 ML ONE (10:40)
[2021-05-15] MEDS: CEFEPIME 2 GM in NA CHLORIDE 0.9% 100 ML IV SCH ×3 (11:16→23:57)
--- NOTE | 2021-05-15 12:51 | P.PN ---
Subjective Date of Service: 05/15/21 Primary Care Provider: Matthew Chief Complaint: UTI, ARF, sepsis Subjective: Improving Physical Examination - Vital Signs Temperature: 98.2 F Blood Pressure: 137/73 Pulse: 84 Respirations: 16 Pulse Ox (%): 94 - Physical Exam General: Alert, In no apparent distress, Other (Aphasic) HEENT: Atraumatic, Normocephalic Gastrointestinal: Soft and benign, Non-distended, Other (PEG tube in place) - Studies Microbiology Data (last 24 hrs): 05/11/21 03:00 Blood - Blood Aerobic Blood Culture - Final Staph Aureus 05/11/21 03:00 Blood - Blood Blood Culture Gram Stain - Final 05/11/21 03:00 Blood - Blood Anaerobic Blood Culture - Final 05/11/21 00:00 Blood - Blood Aerobic Blood Culture - Final Staph Aureus 05/11/21 00:00 Blood - Blood Blood Culture Gram Stain - Final Assessment And Plan - Current Problems (Diagnosis) (1) Acute renal failure Current Visit: Yes Status: Acute Qualifiers: Acute renal failure type: unspecified Qualified Code(s): N17.9 - Acute kidney failure, unspecified (2) COVID Current Visit: Yes Status: Acute (3) Hyperkalemia Current Visit: Yes Status: Acute (4) Ileus Current Visit: Yes Status: Acute (5) Sepsis Current Visit: Yes Status: Acute Qualifiers: Sepsis type: sepsis due to unspecified organism Sepsis acute organ dysfunction status: with acute organ dysfunction Severe sepsis acute organ dysfunction type: acute renal failure Acute renal failure type: unspecified Severe sepsis shock status: without septic shock Qualified Code(s): A41.9 - Sepsis, unspecified organism; R65.20 - Severe sepsis without septic shock; N17.9 - Acute kidney failure, unspecified (6) UTI (urinary tract infection) Current Visit: Yes Status: Acute Qualifiers: Urinary tract infection type: acute cystitis Hematuria presence: without hematuria Qualified Code(s): N30.00 - Acute cystitis without hematuria (7) BPH (benign prostatic hyperplasia) Current Visit: Yes Status: Chronic Qualifiers: Lower urinary tract symptom presence: unspecified whether lower urinary tract symptoms present Qualified Code(s): N40.0 - Benign prostatic hyperplasia without lower urinary tract symptoms (8) CVA (cerebral vascular accident) Current Visit: Yes Status: Chronic Qualifiers: CVA mechanism: unspecified Qualified Code(s): I63.9 - Cerebral infarction, unspecified (9) GERD (gastroesophageal reflux disease) Current Visit: Yes Status: Chronic Qualifiers: Esophagitis presence: without esophagitis Qualified Code(s): K21.9 - Gastro-esophageal reflux disease without esophagitis (10) Gastrostomy tube dependent Current Visit: Yes Status: Chronic (11) HLD (hyperlipidemia) Current Visit: Yes Status: Chronic Qualifiers: Hyperlipidemia type: unspecified Qualified Code(s): E78.5 - Hyperlipidemia, unspecified (12) HTN (hypertension) Current Visit: Yes Status: Chronic Qualifiers: Hypertension type: primary hypertension Qualified Code(s): I10 - Essential (primary) hypertension (13) T2DM (type 2 diabetes mellitus) Current Visit: Yes Status: Chronic Qualifiers: Diabetes mellitus care home insulin use: unspecified longitudinal float operator insulin use status Diabetes mellitus complication status: without complication Qualified Code(s): E11.9 - Type 2 diabetes mellitus without complications Physician Review: Patient Assessed, Agree with Above Assessment and Plan Physician Review Additional Text: Assessment Patient is a 65-year-old male with a past medical history of CVA with right-sided hemiplegia, status post PEG for dysphagia. He is currently aphasic. [facility] He is coming from [facility]. On arrival he was found to have a purulent drainage from his Amato catheter which was exchanged in the ER. He was empirically started on antibiotics. His CT abdomen and pelvis was suggestive of small bowel obstruction versus ileus. Found to have MSSA bacteremia. Septic shock UTI MSSA bacteremia Presumed SBO-possibly due to ileus GORGE Hypokalemia Hyponatremia Neurogenic bladder Presumed cystitis with possible amato dysfunction Hx of CVA DM-2 PLAN Repeat blood cx TTE without signs of infective endocarditis Infectious disease has been consulted. Patient can be discharged if cleared by ID He has been cleared by surgery for tube feeds via PEG Continue providing supportive care
--- NOTE | 2021-05-15 13:26 | P.CNS ---
Primary Care Provider: Matthew Chief Complaint: UTI, ARF, sepsis History of Present Illness: The patient is a 65-year-old male with a past medical history of CVA with hemiplegia, aphasia, dysphagia, status post G-tube, hypertension, type 2 diabetes, hyperlipidemia, BPH, and GERD who [facility]. Patient poor historian/has aphasia as such majority of information obtained via chart review. Per chart review EMS did not receive much information from his [facility]. He had a Fragoso catheter upon arrival which had purulent drainage and dark brown urine and sediment. Fragoso catheter was exchanged in the emergency room. Infectious dis ease has been consulted as the patient was found to have methicillin susceptible Staphylococcus aureus bacteremia. Source of infection likely infected Fragoso catheter/UTI versus infected sacral/right buttocks wound.. Urine culture growing MSSA and Pseudomonas. Patient initially started on IV cefepime on 05/12. Urine culture susceptibilities showed cefepime had an KIMBERLEY of 8 for Pseudomonas, as such dose was increased on 05/15. Patient started receiving therapeutic dose of cefepime on 05/15. Patient currently denies nausea/vomiting/diarrhea. Patient has bilateral heel deep tissue injuries as well as a new unstageable right buttocks/sacral wound. Wound culture of the right buttocks pending, wound care team handling these wounds. Allergies No Known Allergies Allergy (Unverified 05/11/21 09:07) - Past Medical/Surgical History Diabetic: Yes -: CVA -: HTN -: T2DM -: HLD -: FTT -: GERD -: BPH -: hemiplegia, dysphagia, weakness, aphasia -: Gastrostomy tube - Social History Smoking Status: Unknown if ever smoked Place of Residence[facility] Review of Systems is unable to be obtained Physical Examination Temp Pulse Resp BP Pulse Ox 98.2 F 84 16 137/73 94 05/15/21 12:53 05/15/21 12:53 05/15/21 12:53 05/15/21 12:53 05/15/21 12:53 General: Cachectic HEENT: Atraumatic, Normocephalic Neck: Supple, 2+ carotid pulse no bruit Respiratory: Clear to auscultation bilaterally, Normal air movement Capillary refill: <2 Seconds Gastrointestinal: Normal bowel sounds, Soft and benign Integumentary: Other (Right buttock/sacral unstageable decubitus wound. Bilateral heel deep tissue injuries.) Neurological: Other Conclusions/Impression: Antibiotics: Cefepime: 2/4current Assessment/plan Bacteremia Blood cultures obtained on 05/11 growing methicillin susceptible Staph aureus in both aerobic bottles. Repeat cultures pending. Source of infection infected Fragoso catheter/UTI versus infected right buttock/sacral unstageable decubitus pressure wound. Patient will need IV antibiotics for 2 weeks following a negative blood culture report. UTI Urine culture growing MSSA and Pseudomonas. Continue IV cefepime. Bilateral heel deep tissue injury/right buttocks/sacral unstageable decubitus wound Wound culture from right buttocks pending. Continue wound care per wound care team. -Plan of care discussed with Dr. Manuel Thank you for consultation.
--- NOTE | 2021-05-15 14:36 | P.PN ---
Subjective Date of Service: 05/15/21 Primary Care Provider: Matthew Chief Complaint: UTI, ARF, sepsis Subjective: No new changes Physical Examination - Vital Signs Temperature: 98.2 F Blood Pressure: 137/73 Pulse: 84 Respirations: 16 Pulse Ox (%): 94 Assessment And Plan - Current Problems (Diagnosis) (1) Acute renal failure Current Visit: Yes Status: Acute Qualifiers: Acute renal failure type: unspecified Qualified Code(s): N17.9 - Acute kidney failure, unspecified (2) Hyperkalemia Current Visit: Yes Status: Acute (3) Ileus Current Visit: Yes Status: Acute (4) Sepsis Current Visit: Yes Status: Acute Qualifiers: Sepsis type: sepsis due to unspecified organism Sepsis acute organ d ysfunction status: with acute organ dysfunction Severe sepsis acute organ dysfunction type: acute renal failure Acute renal failure type: unspecified Severe sepsis shock status: without septic shock Qualified Code(s): A41.9 - Sepsis, unspecified organism; R65.20 - Severe sepsis without septic shock; N17.9 - Acute kidney failure, unspecified (5) UTI (urinary tract infection) Current Visit: Yes Status: Acute Qualifiers: Urinary tract infection type: acute cystitis Hematuria presence: without hematuria Qualified Code(s): N30.00 - Acute cystitis without hematuria (6) BPH (benign prostatic hyperplasia) Current Visit: Yes Status: Chronic Qualifiers: Lower urinary tract symptom presence: unspecified whether lower urinary tract symptoms present Qualified Code(s): N40.0 - Benign prostatic hyperplasia without lower urinary tract symptoms (7) CVA (cerebral vascular accident) Current Visit: Yes Status: Chronic Qualifiers: CVA mechanism: unspecified Qualified Code(s): I63.9 - Cerebral infarction, unspecified Physician Review: Patient Assessed, Agree with Above Assessment and Plan Physician Review Additional Text: P/ Exam General - Thin built , awake , on RA , elderly male Heent -elenita,eomi Neck -no JVD, no bruit Resp - clear lung , diminshed bases CV -sis2, rrr GI- full, soft abd , BS + peg tube in situ - amato + , lev urine , RERE- no pedal edema b/l Neuro -relatively aphasic, +paraplegia A/P Presumed SBO-possibly due to ileus GORGE Hyperkalemia -resolved Hyponatremia Septic shock UTI Neurogenic bladder Presumed cystitis with possible amato dysfunction Hx of CVA DM MSSA bacteremia PLAN - cr improving -serum sodium again trending down -corrected serum bicarb -c/w isotonic fluid loading with D5NS and kcl -may need add salta tabs to peg tube -follow plan for resume peg tube feeding per Surgery Hypotension -resolved, continue gentle IV fluid Bacteremia -Eco neg for vegetatons c/w abx DM -strict glycemic control cystitis/UTI likely due to clogged amato since associated thickened bladder -may need suprapubic cath as outpt , no hydro on renal imaging
[2021-05-15] MEDS: SODIUM CHLORIDE 1 GM TAB FT SCH (16:32)
[2021-05-15] MEDS ORDERED: NA CHLORIDE 0.9% 100 ML ONE (21:06)
[2021-05-16 05:59] LABS: Absolute Lymphocytes (CBC) 1.6 K/uL (0.7-4.9); Lymphocytes % 15.3 % (15.3-44.8); MPV 6.9 fL (7.6-11.3); RBC Red Blood Cell Count 3.28 M/uL (4.33-5.43)
[2021-05-16 06:16] LABS: ALT/SGPT 87 U/L (12-78); AST/SGOT 68 U/L (15-37); Albumin 1.5 g/dL (3.4-5.0); Alkaline Phosphatase 124 U/L (45-117); BUN Blood Urea Nitrogen 9 mg/dL (7-18); Bicarbonate 23 mmol/L (21-32); Bilirubin Total 0.3 mg/dL (0.2-1.0); Glucose Level 98 mg/dL (74-106); Potassium 3.5 mmol/L (3.5-5.1); Protein, Total 6.9 g/dL (6.4-8.2); Sodium Level 131 mmol/L (136-145)
[2021-05-16] MEDS: D5NS KCL 20MEQ 20 MEQ/1,000 ML BAG IV SCH ×3 (08:00→21:20)
[2021-05-16] MEDS: HEPARIN 5000 UNIT/ML 1 ML VIAL SQ SCH ×2 (08:04→16:17)
[2021-05-16] MEDS: SODIUM CHLORIDE 1 GM TAB FT SCH ×2 (08:07→16:19)
[2021-05-16] MEDS: INSULIN -REGULAR HUMAN 50 UNIT/0.5 ML ML SQ SCH ×4 (08:08→18:00)
[2021-05-16] MEDS: MEDIHONEY 44 ML TOPICAL TUBE TOP SCH (08:09)
[2021-05-16] MEDS: JEVITY 1.5 CAL LIQUID 1,000 ML BOT FT SCH ×3 (08:09→21:00)
[2021-05-16] MEDS ORDERED: POTASSIUM 25 MEQ EFFERV TAB PO ONE (09:00)
[2021-05-16] MEDS: CEFEPIME 2 GM in NA CHLORIDE 0.9% 100 ML IV SCH ×2 (10:17→16:18)
--- NOTE | 2021-05-16 11:08 | P.PN ---
Subjective Date of Service: 05/16/21 Primary Care Provider: Matthew Chief Complaint: UTI, ARF, sepsis Subjective: Improving (Patient appears comfortable) Physical Examination - Vital Signs Temperature: 97.8 F Blood Pressure: 155/76 Pulse: 96 Respirations: 18 Pulse Ox (%): 96 - Physical Exam General: In no apparent distress, Cooperative, Other (aphasic) HEENT: Atraumatic, Normocephalic, EOMI Respiratory: Other (unlaboured breathing) Gastrointestinal: Soft and benign, Non-distended, Other (PEG tube) Musculoskeletal: No clubbing, No swelling, No contractures Neurological: Other (hemiplegia) - Studies Microbiology Data (last 24 hrs): 05/11/21 00:00 Blood - Blood Aerobic Blood Culture - Final Staph Aureus 05/11/21 00:00 Blood - Blood Blood Culture Gram Stain - Final 05/11/21 00:00 Blood - Blood Anaerobic Blood Culture - Final No growth in 5 days. Assessment And Plan - Current Problems (Diagnosis) (1) Acute renal failure Current Visit: Yes Status: Acute Qualifiers: Acute renal failure type: unspecified Qualified Code(s): N17.9 - Acute kidney failure, unspecified (2) COVID Current Visit: Yes Status: Acute (3) Hyperkalemia Current Visit: Yes Status: Acute (4) Ileus Current Visit: Yes Status: Acute (5) Sepsis Current Visit: Yes Status: Acute Qualifiers: Sepsis type: sepsis due to unspecified organism Sepsis acute organ dysfunct ion status: with acute organ dysfunction Severe sepsis acute organ dysfunction type: acute renal failure Acute renal failure type: unspecified Severe sepsis shock status: without septic shock Qualified Code(s): A41.9 - Sepsis, unspecified organism; R65.20 - Severe sepsis without septic shock; N17.9 - Acute kidney failure, unspecified (6) UTI (urinary tract infection) Current Visit: Yes Status: Acute Qualifiers: Urinary tract infection type: acute cystitis Hematuria presence: without hematuria Qualified Code(s): N30.00 - Acute cystitis without hematuria (7) BPH (benign prostatic hyperplasia) Current Visit: Yes Status: Chronic Qualifiers: Lower urinary tract symptom presence: unspecified whether lower urinary tract symptoms present Qualified Code(s): N40.0 - Benign prostatic hyperplasia w ithout lower urinary tract symptoms (8) CVA (cerebral vascular accident) Current Visit: Yes Status: Chronic Qualifiers: CVA mechanism: unspecified Qualified Code(s): I63.9 - Cerebral infarction, unspecified (9) GERD (gastroesophageal reflux disease) Current Visit: Yes Status: Chronic Qualifiers: Esophagitis presence: without esophagitis Qualified Code(s): K21.9 - Gastro-esophageal reflux disease without esophagitis (10) Gastrostomy tube dependent Current Visit: Yes Status: Chronic (11) HLD (hyperlipidemia) Current Visit: Yes Status: Chronic Qualifiers: Hyperlipidemia type: unspecified Qualified Code(s): E78.5 - Hyperlipidemia, unspecified (12) HTN (hypertension) Current Visit: Yes Status: Chronic Qualifiers: Hypertension type: primary hypertension Qualified Code(s): I10 - Essential (primary) hypertension (13) T2DM (type 2 diabetes mellitus) Current Visit: Yes Status: Chronic Qualifiers: 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 He is currently aphasic. He is brought in from the assisted where he was found unresponsive. He is coming from [facility]. On arrival he was found to have a purulent drainage from his Amato catheter which was exchanged in the ER. He was empirically started on antibiotics. His CT abdomen and pelvis was suggestive of small bowel obstruction versus ileus. Found to have MSSA bacteremia. Septic shock UTI MSSA bacteremia Presumed SBO-possibly due to ileus GORGE Hypokalemia Hyponatremia Neurogenic bladder Presumed cystitis with possible amato dysfunction Hx of CVA DM-2 PLAN: Continue cefepime for MSSA bacteremia, and possible infected buttocks wounds Repeat blood cx pending ID has been consulted TTE without signs of infective endocarditis He may need a PICC line for outpatient IV abx He has been cleared by surgery for tube feeds via PEG Continue providing supportive care
--- NOTE | 2021-05-16 15:23 | P.PN ---
Subjective Date of Service: 05/16/21 Primary Care Provider: Matthew Chief Complaint: UTI, ARF, sepsis. Subjective: No new changes, Improving Physical Examination - Vital Signs Temperature: 98.1 F Blood Pressure: 145/80 Pulse: 105 Respirations: 20 Pulse Ox (%): 96 - Physical Exam General: Alert, Oriented x3 HEENT: Atraumatic, Normocephalic Respiratory: Normal air movement Cardiovascular: Regular rate/rhythm, Normal S1 S2 Gastrointestinal: Soft and benign Neurological: Normal speech, Normal strength at 5/5 x4 extr - Studies Microbiology Data (last 24 hrs): 05/11/21 00:00 Blood - Blood Aerobic Blood Culture - Final Staph Aureus 05/11/21 00:00 Blood - Blood Blood Culture Gram Stain - Final 05/11/21 00:00 Blood - Blood Anaerobic Blood Culture - Final No growth in 5 days. Assessment And Plan - Plan eptic shock-resolved. UTI MSSA bacteremia Presumed SBO-possibly due to ileus GORGE Hypokalemia Hyponatremia Neurogenic bladder Presumed cystitis with possible amato dysfunction Hx of CVA DM-2 Plan: His serum sodium is better at 131 today. His Cr is stable at 0.48. His serum potassium is stable. we will his serum electrolyte is stable. we will follow his electrolytes closely. Physician Review: Patient Assessed, Agree with Above Assessment and Plan Physician Review Additional Text: Assessment Patient is a 65-year-old male with a past medical history of CVA with right-sided hemiplegia, status post PEG for dysphagia. He is currently aphasic. He is brought in from the longterm where he was found unresponsive. He is coming from [facility]. On arrival he was found to have a purulent drainage from his Amato catheter which was exchanged in the ER. He was empirically started on antibiotics. His CT abdomen and pelvis was suggestive of small bowel obstruction versus ileus. Found to have MSSA bacteremia. Septic shock UTI MSSA bacteremia Presumed SBO-possibly due to ileus GORGE Hypokalemia Hyponatremia Neurogenic bladder Presumed cystitis with possible amato dysfunction Hx of CVA DM-2 PLAN: Continue cefepime for MSSA bacteremia, and possible infected buttocks wounds Repeat blood cx pending ID has been consulted TTE without signs of infective endocarditis He may need a PICC line for outpatient IV abx He has been cleared by surgery for tube feeds via PEG Continue providing supportive care
[2021-05-17] MEDS: CEFEPIME 2 GM in NA CHLORIDE 0.9% 100 ML IV SCH ×2 (02:14→07:33)
[2021-05-17] MEDS: HEPARIN 5000 UNIT/ML 1 ML VIAL SQ SCH ×3 (02:14→16:14)
[2021-05-17 04:01] LABS: BUN Blood Urea Nitrogen 10 mg/dL (7-18); Bicarbonate 25 mmol/L (21-32); Glucose Level 105 mg/dL (74-106); Sodium Level 131 mmol/L (136-145)
[2021-05-17] MEDS: INSULIN -REGULAR HUMAN 50 UNIT/0.5 ML ML SQ SCH ×4 (06:00→18:00)
[2021-05-17] MEDS: JEVITY 1.5 CAL LIQUID 1,000 ML BOT FT SCH ×3 (07:39→21:00)
[2021-05-17] MEDS: SODIUM CHLORIDE 1 GM TAB FT SCH ×2 (07:39→16:15)
[2021-05-17] MEDS: D5NS KCL 20MEQ 20 MEQ/1,000 ML BAG IV SCH ×2 (07:45→10:40)
[2021-05-17] MEDS: MEDIHONEY 44 ML TOPICAL TUBE TOP SCH (08:05)
[2021-05-17] MEDS ORDERED: CEFEPIME 2 GM in NA CHLORIDE 0.9% 100 ML IV SCH (09:00)
--- NOTE | 2021-05-17 10:53 | P.PN ---
Subjective Date of Service: 05/17/21 Primary Care Provider: Matthew Chief Complaint: UTI, ARF, sepsis. Subjective: Improving Physical Examination - Vital Signs Temperature: 97.5 F Blood Pressure: 164/80 Pulse: 94 Respirations: 16 Pulse Ox (%): 96 - Physical Exam General: In no apparent distress, Other (aphasic) HEENT: Atraumatic, Normocephalic Respiratory: Other (on room air, not dyspneic) Cardiovascular: No edema Gastrointestinal: Soft and benign, Non-distended, Other (PEG tube in place) Musculoskeletal: No clubbing, No swelling, No contractures Neurological: Normal affect, Other (R sided hemiplegia) Assessment And Plan - Current Problems (Diagnosis) (1) Acute renal failure Current Visit: Yes Status: Acute Qualifiers: Acute renal failure type: unspecified Qualified Code(s): N17.9 - Acute kidney failure, unspecified (2) COVID Current Visit: Yes Status: Acute (3) Hyperkalemia Current Visit: Yes Status: Acute (4) Ileus Current Visit: Yes Status: Acute (5) Sepsis Current Visit: Yes Status: Acute Qualifiers: Sepsis type: sepsis due to unspecified organism Sepsis acute organ dysfunction status: with acute organ dysfunction Severe sepsis acute organ dysfunction type: acute renal failure Acute renal failure type: unspecified Severe sepsis shock status: without septic shock Qualified Code(s): A41.9 - Sepsis, unspecified organism; R65.20 - Severe sepsis without septic shock; N17.9 - Acute kidney failure, unspecified (6) UTI (urinary tract infection) Current Visit: Yes Status: Acute Qualifiers: Urinary tract infection type: acute cystitis Hematuria presence: without hematuria Qualified Code(s): N30.00 - Acute cystitis without hematuria (7) BPH (benign prostatic hyperplasia) Current Visit: Yes Status: Chronic Qualifiers: Lower urinary tract symptom presence: unspecified whether lower urinary tract symptoms present Qualified Code(s): N40.0 - Benign prostatic hyperplasia without lower urinary tract symptoms (8) CVA (cerebral vascular accident) Current Visit: Yes Status: Chronic Qualifiers: CVA mechanism: unspecified Qualified Code(s): I63.9 - Cerebral infarction, unspecified (9) GERD (gastroesophageal reflux disease) Current Visit: Yes Status: Chronic Qualifiers: Esophagitis presence: without esophagitis Qualified Code(s): K21.9 - Gastro-esophageal reflux disease without esophagitis (10) Gastrostomy tube dependent Current Visit: Yes Status: Chronic (11) HLD (hyperlipidemia) Current Visit: Yes Status: Chronic Qualifiers: Hyperlipidemia type: unspecified Qualified Code(s): E78.5 - Hyperlipidemia, unspecified (12) HTN (hypertension) Current Visit: Yes Status: Chronic Qualifiers: Hypertension type: primary hypertension Qualified Code(s): I10 - Essential (primary) hypertension (13) T2DM (type 2 diabetes mellitus) Current Visit: Yes Status: Chronic Qualifiers: Diabetes mellitus meterman insulin use: unspecified meterman insulin use status Diabetes mellitus complication status: without complication Qualified Code(s): E11.9 - Type 2 diabetes mellitus without complications Physician Review: Patient Assessed, Agree with Above Assessment and Plan Physician Review Additional Text: Assessment Patient is a 65-year-old male with a past medical history of CVA with right-sided hemiplegia, status post PEG for dysphagia. He is currently aphasic. He is brought in from the skilled nursing where he was found unresponsive. He is coming from [facility]. On arrival he was found to have a purulent drainage from his Amato catheter which was exchanged in the ER. He was empirically started on antibiotics. His CT abdomen and pelvis was suggestive of small bowel obstruction versus ileus. Patient currently has infected wound buttocks, UTI and bacteremia Septic shock UTI MSSA found in the urine and in the blood Multidrug-resistant Pseudomonas found in the urine and in the wound buttocks Presumed SBO-possibly due to ileus -RESOLVED GORGE Hypokalemia Hyponatremia Neurogenic bladder Presumed cystitis with possible amato dysfunction Hx of CVA DM-2 PLAN: I discussed with ID. Antibiotics changed to meropenem and levofloxacin Repeat blood cx pending TTE without signs of infective endocarditis He may need a PICC line for outpatient IV abx He has been cleared by surgery for tube feeds via PEG Continue providing supportive care
[2021-05-17] MEDS: Meropenem 1,000 MG in NA CHLORIDE 0.9% 100 ML IV SCH ×2 (11:16→16:14)
[2021-05-17] MEDS: Levofloxacin 750mg IV 750 MG/150 ML BAG IV SCH (11:48)
--- NOTE | 2021-05-17 15:47 | P.PN ---
Subjective Date of Service: 05/17/21 Primary Care Provider: Matthew Chief Complaint: UTI, ARF, sepsis. Subjective: No new changes Physical Examination - Vital Signs Temperature: 97.9 F Blood Pressure: 163/97 Pulse: 99 Respirations: 18 Pulse Ox (%): 99 - Physical Exam General: Alert, Oriented x3 HEENT: Atraumatic, Normocephalic Neck: Supple Respiratory: Clear to auscultation bilaterally Cardiovascular: Regular rate/rhythm, Normal S1 S2 Gastrointestinal: Soft and benign Musculoskeletal: No swelling Neurological: Normal speech, Normal strength at 5/5 x4 extr, Normal tone Assessment And Plan - Plan eptic shock-resolved. UTI MSSA bacteremia Presumed SBO-possibly due to ileus GORGE Hypokalemia Hyponatremia Neurogenic bladder Presumed cystitis with possible amato dysfunction Hx of CVA DM-2 Plan: His serum sodium is better at 131. His Cr is stable at 0.48. His serum potassium is stable. we will his serum electrolyte is stable. we will follow his electrolytes closely. Physician Review: Patient Assessed, Agree with Above Assessment and Plan Physician Review Additional Text: Assessment Patient is a 65-year-old male with a past medical history of CVA with right-sided hemiplegia, status post PEG for dysphagia. He is currently aphasic. He is brought in from the residential where he was found unresponsive. He is coming from [facility]. On arrival he was found to have a purulent drainage from his Amato catheter which was exchanged in the ER. He was empirically started on antibiotics. His CT abdomen and pelvis was suggestive of small bowel obstruction versus ileus. Patient currently has infected wound buttocks, UTI and bacteremia Septic shock UTI MSSA found in the urine and in the blood Multidrug-resistant Pseudomonas found in the urine and in the wound buttocks Presumed SBO-possibly due to ileus -RESOLVED GORGE Hypokalemia Hyponatremia Neurogenic bladder Presumed cystitis with possible amato dysfunction Hx of CVA DM-2 PLAN: I discussed with ID. Antibiotics changed to meropenem and levofloxacin Repeat blood cx pending TTE without signs of infective endocarditis He may need a PICC line for outpatient IV abx He has been cleared by surgery for tube feeds via PEG Continue providing supportive care
[2021-05-18] MEDS: Meropenem 1,000 MG in NA CHLORIDE 0.9% 100 ML IV SCH ×3 (00:43→18:48)
[2021-05-18] MEDS: HEPARIN 5000 UNIT/ML 1 ML VIAL SQ SCH ×3 (00:43→18:46)
[2021-05-18] MEDS: INSULIN -REGULAR HUMAN 50 UNIT/0.5 ML ML SQ SCH ×4 (06:00→18:00)
--- NOTE | 2021-05-18 06:01 | P.PN ---
Subjective Date of Service: 05/18/21 Primary Care Provider: Matthew Chief Complaint: UTI, ARF, sepsis. Subjective: No new changes, Improving Physical Examination - Vital Signs Temperature: 97.9 F Blood Pressure: 163/87 Pulse: 99 Respirations: 19 Pulse Ox (%): 99 - Physical Exam General: Alert, Oriented x3 Neck: Supple Respiratory: Normal air movement Cardiovascular: Regular rate/rhythm, Normal S1 S2 Gastrointestinal: Soft and benign Neurological: Normal strength at 5/5 x4 extr, Sensation intact, Cranial nerves 3-12 intact Assessment And Plan - Plan Septic shock-resolved. UTI MSSA bacteremia Presumed SBO-possibly due to ileus GORGE Hypokalemia-replete Hyponatremia-improved. Neurogenic bladder Presumed cystitis with possible amato dysfunction Hx of CVA DM-2 Plan: His serum sodium continues to be stable at 131. His Cr is stable at 0.48. His serum potassium is stable. we will follow his electrolytes closely. Physician Review: Patient Assessed, Agree with Above Assessment and Plan Physician Review Additional Text: Assessment Patient is a 65-year-old male with a past medical history of CVA with right-sided hemiplegia, status post PEG for dysphagia. He is currently aphasic. He is brought in from the assisted where he was found unresponsive. He is coming from [facility]. On arrival he was found to have a purulent drainage from his Amato catheter which was exchanged in the ER. He was empirically started on antibiotics. His CT abdomen and pelvis was suggestive of small bowel obstruction versus ileus. Patient currently has infected wound buttocks, UTI and bacteremia Septic shock UTI MSSA found in the urine and in the blood Multidrug-resistant Pseudomonas found in the urine and in the wound buttocks Presumed SBO-possibly due to ileus -RESOLVED GORGE Hypokalemia Hyponatremia Neurogenic bladder Presumed cystitis with possible amato dysfunction Hx of CVA DM-2 PLAN: I discussed with ID. Antibiotics changed to meropenem and levofloxacin Repeat blood cx pending TTE without signs of infective endocarditis He may need a PICC line for outpatient IV abx He has been cleared by surgery for tube feeds via PEG Continue providing supportive care
[2021-05-18] MEDS: SODIUM CHLORIDE 1 GM TAB FT SCH ×2 (08:28→17:00)
[2021-05-18] MEDS: JEVITY 1.5 CAL LIQUID 1,000 ML BOT FT SCH ×3 (08:29→19:20)
[2021-05-18] MEDS: MEDIHONEY 44 ML TOPICAL TUBE TOP SCH (08:30)
[2021-05-18] MEDS: Levofloxacin 750mg IV 750 MG/150 ML BAG IV SCH (10:14)
[2021-05-18] MEDS: D5NS KCL 20MEQ 20 MEQ/1,000 ML BAG IV SCH ×2 (13:20)
--- NOTE | 2021-05-18 16:53 | P.PN ---
Subjective Date of Service: 05/18/21 Primary Care Provider: Matthew Chief Complaint: UTI, ARF, sepsis. Patient seen and examined at bedside, resting comfortably. Review of Systems 10-point ROS is otherwise unremarkable Physical Examination - Vital Signs Temperature: 98.1 F Blood Pressure: 154/78 Pulse: 117 Respirations: 20 Pulse Ox (%): 98 - Studies Laboratory Last Values WBC 21.00 K/uL (4.3-10.9) H* 05/11/21 00:00 RBC 3.61 M/uL (4.33-5.43) L 05/11/21 00:00 Hgb 10.8 g/dL (13.6-17.9) L 05/11/21 00:00 Hct 33.2 % (39.6-49.0) L 05/11/21 00:00 MCV 91.8 fL (80-100) 05/11/21 00:00 MCH 29.9 pg (27.0-35.0) 05/11/21 00:00 MCHC 32.6 g/dL (32.0-36.0) 05/11/21 00:00 RDW 16.3 % (12.1-15.2) H 05/11/21 00:00 Plt Count 425 K/uL (152-406) H 05/11/21 00:00 MPV 7.4 fL (7.6-11.3) L 05/11/21 00:00 Neutrophils % 90.2 % (41.7-73.7) H 05/11/21 00:00 Lymphocytes % 2.5 % (15.3-44.8) L 05/11/21 00:00 Monocytes % 7.0 % (3.3-12.3) 05/11/21 00:00 Eosinophils % 0.0 % (0-4.4) 05/11/21 00:00 Basophils % 0.3 % (0-1.3) 05/11/21 00:00 Absolute Neutrophils 18.9 K/uL (1.8-8.0) H 05/11/21 00:00 Segmented Neutrophils 64 % (40-80) 05/11/21 00:00 Band Neutrophils 23 % (0-1) H* 05/11/21 00:00 Absolute Lymphocytes 0.5 K/uL (0.7-4.9) L 05/11/21 00:00 Lymphocytes 4 % (15-42) L 05/11/21 00:00 Monocytes 8 % (0-10) 05/11/21 00:00 Absolute Monocytes 1.5 K/uL (0.1-1.3) H 05/11/21 00:00 Absolute Eosinophils 0.0 K/uL (0-0.5) 05/11/21 00:00 Absolute Basophils 0.1 K/uL (0-0.5) 05/11/21 00:00 Reactive Lymphocytes 1 % 05/11/21 00:00 Platelet Estimate Adeq 05/11/21 00:00 Morphology Comment Not seen (NOT SEEN) 05/11/21 00:00 PT 16.2 SECONDS (9.5-12.5) H 05/11/21 00:00 INR 1.40 05/11/21 00:00 pH 7.46 (7.35-7.45) H 05/10/21 23: pCO2 29.1 mmHG (35-45) L 05/10/21 23: pO2 72.9 mmHG (75-100) L 05/10/21 23: HCO3 20.5 mmol/L (22-28) L 05/10/21 23: Base Excess -2.8 mmol/L 05/10/21 23: Oxyhemoglobin 90.8 % (94-97) L 05/10/21 23: ABG O2 Sat (Measured) 93.0 % (92-98.5) 05/10/21: ABG Carboxyhemoglobin 1.5 % (0-1.5) 05/10/21: ABG Methemoglobin 0.9 % (0-1.5) 05/10/21 23: Other Total Hgb 10.5 g/dl (12-18) L 05/10/21 23: Inspired O2 21.0 % 05/10/21 23: Sodium 132 mmol/L (136-145) L 05/11/21 03:00 Potassium 4.6 mmol/L (3.5-5.1) 05/11/21 03:00 Chloride 99 mmol/L (98-107) 05/11/21 03:00 Carbon Dioxide 21 mmol/L (21-32) 05/11/21 03:00 BUN 60 mg/dL (7-18) H 05/11/21 03:00 Creatinine 2.95 mg/dL (0.55-1.3) H 05/11/21 03:00 Estimated GFR 22 mL/min (=/>90) L 05/11/21 03:00 Glucose 199 mg/dL (74-106) H 05/11/21 03:00 Lactic Acid 2.8 mmol/L (0.4-2.0) H 05/11/21 03:00 Uric Acid 6.9 mg/dL (3.5-7.2) 05/11/21 03:00 Calcium 10.3 mg/dL (8.5-10.1) H 05/11/21 03:00 Magnesium 2.8 mg/dL (1.8-2.4) H 05/11/21 00:00 Total Bilirubin 0.5 mg/dL (0.2-1.0) 05/11/21 00:00 Direct Bilirubin 0.3 mg/dL (0-0.2) H 05/11/21 00:00 AST 32 U/L (15-37) 05/11/21 00:00 ALT 35 U/L (12-78) 05/11/21 00:00 Alkaline Phosphatase 160 U/L (45-117) H 05/11/21 00:00 Ammonia 18 umol/L (19-54) L 05/11/21 00:00 Creatine Kinase 19 U/L (39-308) L 05/11/21 03:00 Troponin I High Sens 5.40 pg/mL (<58.9) 05/11/21 00:00 NT-Pro-B Natriuret Pep 595 pg/mL (<125) H 05/11/21 00:00 Serum Total Protein 7.4 g/dL (6.4-8.2) 05/11/21 00:00 Albumin 1.4 g/dL (3.4-5.0) L 05/11/21 00:00 Globulin 6.0 g/dL (2.3-3.5) H 05/11/21 00:00 Albumin/Globulin Ratio 0.2 (1.1-1.8) L 05/11/21 00:00 Procalcitonin 2.32 ng/mL (<0.050) H 05/11/21 00:00 TSH 0.993 uIU/mL (0.360-3.740) 05/11/21 03:00 Free T4 1.71 ng/dL (0.76-1.46) H 05/11/21 03:00 Urine RBC <5 /HPF (NONE SEEN) 05/11/21 00:18 Urine WBC Tntc /HPF (<5) H 05/11/21 00:18 Ur Squamous Epith Cells PROJECT MANAGEMENT PROFESSIONAL 05/11/21 00:18 Urine Bacteria <20 /HPF (NONE SEEN) 05/11/21 00:18 Urine Culture Reflexed Not needed 05/11/21 00:18 Salicylates < 1.7 mg/dL (2.8-20) L 05/11/21 00:00 Opiates Screen Negative (NEGATIVE) 05/11/21 00:08 Methadone Screen Negative (NEGATIVE) 05/11/21 00:08 Acetaminophen < 2.0 ug/mL (10.0-30.0) L 05/11/21 00:00 Ur Barbiturates Screen Negative (NEGATIVE) 05/11/21 00:08 Ur Phencyclidine Scrn Negative (NEGATIVE) 05/11/21 00:08 Amphetamines Screen Negative (NEGATIVE) 05/11/21 00:08 Benzodiazepines Screen Negative (NEGATIVE) 05/11/21 00:08 Cocaine Screen Negative (NEGATIVE) 05/11/21 00:08 Ur THC Screen Negative (NEGATIVE) 05/11/21 00:08 Influenza Type A RNA Negative (NEGATIVE) 05/11/21 00:00 RSV RNA (INAAT) Negative (NEGATIVE) 05/11/21 00:00 Influenza Type B RNA Negative (NEGATIVE) 05/11/21 00:00 SARS-CoV-2 RNA (RT-PCR) Positive (NEGATIVE) A 05/11/21 00:00 Assessment And Plan - Plan Physical Exam: General: Cachectic HEENT: Atraumatic, Normocephalic Neck: Supple, 2+ carotid pulse no bruit Respiratory: Clear to auscultation bilaterally, Normal air movement Capillary refill: <2 Seconds Gastrointestinal: Normal bowel sounds, Soft and benign Integumentary: Other (Right buttock/sacral unstageable decubitus wound. Bilateral heel deep tissue injuries.) Neurological: Other Conclusions/Impression: Antibiotics: Cefepime: 2/4current Assessment/plan Bacteremia Blood cultures obtained on 05/11 growing methicillin susceptible Staph aureus in both aerobic bottles. Repeat cultures show no growth @48hr. Source of infection infected Fragoso catheter/UTI versus infected right buttock/sacral unstageable decubitus pressure wound. Patient will need IV antibiotics for 2 weeks following a negative blood culture report~tentative end date of 05/29. After 7 days can de escalate to IV rocephin as treatment for UTI will be complete. UTI Urine culture growing MSSA and Pseudomonas. Continue IV cefepime. Bilateral heel deep tissue injury/right buttocks/sacral unstageable decubitus wound Wound culture from right buttocks pending. Continue wound care per wound care team. -Plan of care discussed with Dr. Manuel Thank you for consultation. Physician Review: Patient Assessed, Agree with Above Assessment and Plan
[2021-05-19] MEDS: HEPARIN 5000 UNIT/ML 1 ML VIAL SQ SCH ×3 (00:20→16:31)
[2021-05-19] MEDS: Meropenem 1,000 MG in NA CHLORIDE 0.9% 100 ML IV SCH ×3 (00:26→16:32)
[2021-05-19] MEDS: D5NS KCL 20MEQ 20 MEQ/1,000 ML BAG IV SCH ×2 (02:40→16:31)
[2021-05-19] MEDS: INSULIN -REGULAR HUMAN 50 UNIT/0.5 ML ML SQ SCH ×5 (05:38→23:54)
[2021-05-19] MEDS: SODIUM CHLORIDE 1 GM TAB FT SCH ×2 (08:00→16:32)
[2021-05-19] MEDS: MEDIHONEY 44 ML TOPICAL TUBE TOP SCH (09:00)
[2021-05-19] MEDS: JEVITY 1.5 CAL LIQUID 1,000 ML BOT FT SCH (09:00)
[2021-05-19] MEDS ORDERED: GLUCERNA 1.2 CAL 1,000 ML BOT RTH SCH (11:00)
[2021-05-19] MEDS: Levofloxacin 750mg IV 750 MG/150 ML BAG IV SCH (11:09)
--- NOTE | 2021-05-19 11:10 | P.PN ---
Subjective Date of Service: 05/18/21 Subjective: No new changes, No C/O voiced, Improving Review of Systems 10-point ROS is otherwise unremarkable Physical Examination - Vital Signs Temperature: 97.7 F Blood Pressure: 157/91 Pulse: 110 Respirations: 18 Pulse Ox (%): 97 - Physical Exam General: Alert, In no apparent distress, Oriented x3 Respiratory: Clear to auscultation bilaterally, Normal air movement Cardiovascular: Regular rate/rhythm, Normal S1 S2, No murmurs Gastrointestinal: Normal bowel sounds, Soft and benign, Non-distended, No tenderness Musculoskeletal: No clubbing, No swelling, No tenderness Neurological: Sensation intact, Cranial nerves 3-12 intact - Studies Medications List Reviewed: Yes Assessment & Plan - Problems (Diagnosis) (1) Acute renal failure Current Visit: Yes Status: Acute Qualifiers: Acute renal failure type: unspecified Qualified Code(s): N17.9 - Acute kidney failure, unspecified (2) COVID Current Visit: Yes Status: Acute (3) CVA (cerebral vascular accident) Current Visit: Yes Status: Chronic Qualifiers: CVA mechanism: unspecified Qualified Code(s): I63.9 - Cerebral infarction, unspecified (4) GERD (gastroesophageal reflux disease) Current Visit: Yes Status: Chronic Qualifiers: Esophagitis presence: without esophagitis Qualified Code(s): K21.9 - Gastro-esophageal reflux disease without esophagitis (5) Gastrostomy tube dependent Current Visit: Yes Status: Chronic (6) HLD (hyperlipidemia) Current Visit: Yes Status: Chronic Qualifiers: Hyperlipidemia type: unspecified Qualified Code(s): E78.5 - Hyperlipidemia, unspecified (7) HTN (hypertension) Current Visit: Yes Status: Chronic Qualifiers: Hypertension type: primary hypertension Qualified Code(s): I10 - Essential (primary) hypertension (8) T2DM (type 2 diabetes mellitus) Current Visit: Yes Status: Chronic Qualifiers: Diabetes mellitus senior living insulin use: unspecified long term care social worker insulin use status Diabetes mellitus complication status: without complication Qualified Code(s): E11.9 - Type 2 diabetes mellitus without complications (9) MRSA bacteremia Current Visit: Yes Status: Acute (10) Pseudomonas urinary tract infection Current Visit: Yes Status: Acute - Plan Plan: 1. Continue with broad-spectrum antibiotic coverage 2. PICC line placement 3. Monitor renal function 4. Gentle hydration 5. Continue with tube feeds per recommendations of dietary 6. Transfer to [facility] once approved 7. GI DVT prophylaxis Discharge Plan: Custodial Plan to discharge in: Greater than 2 days - Advance Directives Does patient have a Living Will: No Does patient have a Durable POA for Healthcare: No - Code Status/Comfort Care Code Status Assessed: Yes Code Status: Full Code Physician Review: Patient Assessed, Agree with Above Assessment and Plan Critical Care: No Time Spent Managing PTS Care (In Minutes): 35
--- NOTE | 2021-05-19 11:11 | P.PN ---
Date of Service: 05/19/21 Subjective Review of Systems 10-point ROS is otherwise unremarkable Physical Examination - Vital Signs Reviewed - Physical Exam General: Altered mentation; dementia Respiratory: Clear to auscultation bilaterally, Normal air movement Cardiovascular: Regular rate/rhythm, Normal S1 S2, No murmurs Gastrointestinal: Normal bowel sounds, Soft and benign, Non-distended, No tenderness Musculoskeletal: No clubbing, No swelling, No tenderness Neurological: Patient is bedbound and does not really interact appropriately - Studies Medications List Reviewed: Yes Assessment & Plan - Problems (Diagnosis) (1) Acute renal failure Current Visit: Yes Status: Acute Qualifiers: Acute renal failure type: unspecified Qualified Code(s): N17.9 - Acute kidney failure, unspecified (2) COVID Current Visit: Yes Status: Acute (3) CVA (cerebral vascular accident) Current Visit: Yes Status: Chronic Qualifiers: CVA mechanism: unspecified Qualified Code(s): I63.9 - Cerebral infarction, unspecified (4) GERD (gastroesophageal reflux disease) Current Visit: Yes Status: Chronic Qualifiers: Esophagitis presence: without esophagitis Qualified Code(s): K21.9 - Gastro-esophageal reflux disease without esophagitis (5) Gastrostomy tube dependent Current Visit: Yes Status: Chronic (6) HLD (hyperlipidemia) Current Visit: Yes Status: Chronic Qualifiers: Hyperlipidemia type: unspecified Qualified Code(s): E78.5 - Hyperlipidemia, unspecified (7) HTN (hypertension) Current Visit: Yes Status: Chronic Qualifiers: Hypertension type: primary hypertension Qualified Code(s): I10 - Essential (primary) hypertension (8) T2DM (type 2 diabetes mellitus) Current Visit: Yes Status: Chronic Qualifiers: Diabetes mellitus group home insulin use: unspecified group home insulin use status Diabetes mellitus complication status: without complication Qualified Code(s): E11.9 - Type 2 diabetes mellitus without complications (9) MRSA bacteremia Current Visit: Yes Status: Acute (10) Pseudomonas urinary tract infection Current Visit: Yes Status: Acute - Plan Continue plan of care as mentioned below: 1. Continue with broad-spectrum antibiotic coverage 2. PICC line placement 3. Monitor renal function 4. Gentle hydration 5. Continue with tube feeds per recommendations of dietary 6. Transfer to [facility] once approved 7. GI DVT prophylaxis Discharge Plan: [facility] Plan to discharge in: Greater than 2 days - Advance Directives Does patient have a Living Will: No Does patient have a Durable POA for Healthcare: No - Code Status/Comfort Care Code Status Assessed: Yes Code Status: Full Code Physician Review: Patient Assessed, Agree with Above Assessment and Plan Critical Care: No Time Spent Managing PTS Care (In Minutes): 35
[2021-05-19 14:31] LABS: Absolute Lymphocytes (CBC) 1.5 K/uL (0.7-4.9); Lymphocytes % 10.9 % (15.3-44.8); MPV 6.9 fL (7.6-11.3); RBC Red Blood Cell Count 3.39 M/uL (4.33-5.43)
[2021-05-19 14:43] LABS: BUN Blood Urea Nitrogen 11 mg/dL (7-18); Bicarbonate 22 mmol/L (21-32); Glucose Level 106 mg/dL (74-106); Potassium 4.3 mmol/L (3.5-5.1); Sodium Level 127 mmol/L (136-145)
--- NOTE | 2021-05-19 16:45 | P.PN ---
Subjective Date of Service: 05/19/21 Primary Care Provider: Matthew Chief Complaint: UTI, ARF, sepsis. Patient seen and examined at bedside, resting comfortably. Review of Systems 10-point ROS is otherwise unremarkable Physical Examination - Vital Signs Temperature: 99.0 F Blood Pressure: 152/82 Pulse: 122 Respirations: 18 Pulse Ox (%): 97 - Studies Laboratory Last Values WBC 21.00 K/uL (4.3-10.9) H* 05/11/21 00:00 RBC 3.61 M/uL (4.33-5.43) L 05/11/21 00:00 Hgb 10.8 g/dL (13.6-17.9) L 05/11/21 00:00 Hct 33.2 % (39.6-49.0) L 05/11/21 00:00 MCV 91.8 fL (80-100) 05/11/21 00:00 MCH 29.9 pg (27.0-35.0) 05/11/21 00:00 MCHC 32.6 g/dL (32.0-36.0) 05/11/21 00:00 RDW 16.3 % (12.1-15.2) H 05/11/21 00:00 Plt Count 425 K/uL (152-406) H 05/11/21 00:00 MPV 7.4 fL (7.6-11.3) L 05/11/21 00:00 Neutrophils % 90.2 % (41.7-73.7) H 05/11/21 00:00 Lymphocytes % 2.5 % (15.3-44.8) L 05/11/21 00:00 Monocytes % 7.0 % (3.3-12.3) 05/11/21 00:00 Eosinophils % 0.0 % (0-4.4) 05/11/21 00:00 Basophils % 0.3 % (0-1.3) 05/11/21 00:00 Absolute Neutrophils 18.9 K/uL (1.8-8.0) H 05/11/21 00:00 Segmented Neutrophils 64 % (40-80) 05/11/21 00:00 Band Neutrophils 23 % (0-1) H* 05/11/21 00:00 Absolute Lymphocytes 0.5 K/uL (0.7-4.9) L 05/11/21 00:00 Lymphocytes 4 % (15-42) L 05/11/21 00:00 Monocytes 8 % (0-10) 05/11/21 00:00 Absolute Monocytes 1.5 K/uL (0.1-1.3) H 05/11/21 00:00 Absolute Eosinophils 0.0 K/uL (0-0.5) 05/11/21 00:00 Absolute Basophils 0.1 K/uL (0-0.5) 05/11/21 00:00 Reactive Lymphocytes 1 % 05/11/21 00:00 Platelet Estimate Adeq 05/11/21 00:00 Morphology Comment Not seen (NOT SEEN) 05/11/21 00:00 PT 16.2 SECONDS (9.5-12.5) H 05/11/21 00:00 INR 1.40 05/11/21 00:00 pH 7.46 (7.35-7.45) H 05/10/21 23: pCO2 29.1 mmHG (35-45) L 05/10/21 23: pO2 72.9 mmHG (75-100) L 05/10/21 23: HCO3 20.5 mmol/L (22-28) L 05/10/21 23: Base Excess -2.8 mmol/L 05/10/21 23: Oxyhemoglobin 90.8 % (94-97) L 05/10/21 23: ABG O2 Sat (Measured) 93.0 % (92-98.5) 05/10/21: ABG Carboxyhemoglobin 1.5 % (0-1.5) 05/10/21: ABG Methemoglobin 0.9 % (0-1.5) 05/10/21 23: Other Total Hgb 10.5 g/dl (12-18) L 05/10/21 23: Inspired O2 21.0 % 05/10/21 23: Sodium 132 mmol/L (136-145) L 05/11/21 03:00 Potassium 4.6 mmol/L (3.5-5.1) 05/11/21 03:00 Chloride 99 mmol/L (98-107) 05/11/21 03:00 Carbon Dioxide 21 mmol/L (21-32) 05/11/21 03:00 BUN 60 mg/dL (7-18) H 05/11/21 03:00 Creatinine 2.95 mg/dL (0.55-1.3) H 05/11/21 03:00 Estimated GFR 22 mL/min (=/>90) L 05/11/21 03:00 Glucose 199 mg/dL (74-106) H 05/11/21 03:00 Lactic Acid 2.8 mmol/L (0.4-2.0) H 05/11/21 03:00 Uric Acid 6.9 mg/dL (3.5-7.2) 05/11/21 03:00 Calcium 10.3 mg/dL (8.5-10.1) H 05/11/21 03:00 Magnesium 2.8 mg/dL (1.8-2.4) H 05/11/21 00:00 Total Bilirubin 0.5 mg/dL (0.2-1.0) 05/11/21 00:00 Direct Bilirubin 0.3 mg/dL (0-0.2) H 05/11/21 00:00 AST 32 U/L (15-37) 05/11/21 00:00 ALT 35 U/L (12-78) 05/11/21 00:00 Alkaline Phosphatase 160 U/L (45-117) H 05/11/21 00:00 Ammonia 18 umol/L (19-54) L 05/11/21 00:00 Creatine Kinase 19 U/L (39-308) L 05/11/21 03:00 Troponin I High Sens 5.40 pg/mL (<58.9) 05/11/21 00:00 NT-Pro-B Natriuret Pep 595 pg/mL (<125) H 05/11/21 00:00 Serum Total Protein 7.4 g/dL (6.4-8.2) 05/11/21 00:00 Albumin 1.4 g/dL (3.4-5.0) L 05/11/21 00:00 Globulin 6.0 g/dL (2.3-3.5) H 05/11/21 00:00 Albumin/Globulin Ratio 0.2 (1.1-1.8) L 05/11/21 00:00 Procalcitonin 2.32 ng/mL (<0.050) H 05/11/21 00:00 TSH 0.993 uIU/mL (0.360-3.740) 05/11/21 03:00 Free T4 1.71 ng/dL (0.76-1.46) H 05/11/21 03:00 Urine RBC <5 /HPF (NONE SEEN) 05/11/21 00:18 Urine WBC Tntc /HPF (<5) H 05/11/21 00:18 Ur Squamous Epith Cells CEMENT SPRAYER HELPER 05/11/21 00:18 Urine Bacteria <20 /HPF (NONE SEEN) 05/11/21 00:18 Urine Culture Reflexed Not needed 05/11/21 00:18 Salicylates < 1.7 mg/dL (2.8-20) L 05/11/21 00:00 Opiates Screen Negative (NEGATIVE) 05/11/21 00:08 Methadone Screen Negative (NEGATIVE) 05/11/21 00:08 Acetaminophen < 2.0 ug/mL (10.0-30.0) L 05/11/21 00:00 Ur Barbiturates Screen Negative (NEGATIVE) 05/11/21 00:08 Ur Phencyclidine Scrn Negative (NEGATIVE) 05/11/21 00:08 Amphetamines Screen Negative (NEGATIVE) 05/11/21 00:08 Benzodiazepines Screen Negative (NEGATIVE) 05/11/21 00:08 Cocaine Screen Negative (NEGATIVE) 05/11/21 00:08 Ur THC Screen Negative (NEGATIVE) 05/11/21 00:08 Influenza Type A RNA Negative (NEGATIVE) 05/11/21 00:00 RSV RNA (INAAT) Negative (NEGATIVE) 05/11/21 00:00 Influenza Type B RNA Negative (NEGATIVE) 05/11/21 00:00 SARS-CoV-2 RNA (RT-PCR) Positive (NEGATIVE) A 05/11/21 00:00 Medications List Reviewed: Yes Assessment And Plan - Plan Physical Exam: General: Cachectic HEENT: Atraumatic, Normocephalic Neck: Supple, 2+ carotid pulse no bruit Respiratory: Clear to auscultation bilaterally, Normal air movement Capillary refill: <2 Seconds Gastrointestinal: Normal bowel sounds, Soft and benign Integumentary: Other (Right buttock/sacral unstageable decubitus wound. Bilateral heel deep tissue injuries.) Neurological: Other Conclusions/Impression: Antibiotics: Cefepime: 2/4current Assessment/plan Bacteremia Blood cultures obtained on 05/11 growing methicillin susceptible Staph aureus in both aerobic bottles. Repeat cultures on 05/15 show no growth @48hr. Source of infection infected Fragoso catheter/UTI versus infected right buttock/sacral unstageable decubitus pressure wound.Fragoso exchanged in ED. Patient will need IV antibiotics for 2 weeks following a negative blood culture report~tentative end date of 05/29. After 7 days can de escalate to IV rocephin as treatment for UTI will be complete. TTE negative for acute vegetation. UTI Urine culture growing MSSA and Pseudomonas. Continue IV cefepime. Bilateral heel deep tissue injury/right buttocks/sacral unstageable decubitus wound Wound culture from right buttocks showed no growth. Continue wound care per wound care team. -Plan of care discussed with Dr. Manuel Thank you for consultation. Physician Review: Patient Assessed, Agree with Above Assessment and Plan
[2021-05-20] MEDS: Meropenem 1,000 MG in NA CHLORIDE 0.9% 100 ML IV SCH ×3 (01:00→17:14)
[2021-05-20] MEDS: HEPARIN 5000 UNIT/ML 1 ML VIAL SQ SCH ×3 (01:46→17:15)
[2021-05-20] MEDS: INSULIN -REGULAR HUMAN 50 UNIT/0.5 ML ML SQ SCH ×3 (06:00→17:15)
[2021-05-20 06:34] LABS: Absolute Lymphocytes (CBC) 1.9 K/uL (0.7-4.9); Hematocrit 32.2 % (39.6-49.0); Lymphocytes % 12.4 % (15.3-44.8); MPV 6.9 fL (7.6-11.3); RBC Red Blood Cell Count 3.57 M/uL (4.33-5.43)
[2021-05-20] MEDS: D5NS KCL 20MEQ 20 MEQ/1,000 ML BAG IV SCH ×2 (06:38→18:15)
[2021-05-20 07:07] LABS: BUN Blood Urea Nitrogen 12 mg/dL (7-18); Bicarbonate 22 mmol/L (21-32); Glucose Level 118 mg/dL (74-106); Potassium 3.9 mmol/L (3.5-5.1); Sodium Level 128 mmol/L (136-145)
[2021-05-20] MEDS: MEDIHONEY 44 ML TOPICAL TUBE TOP SCH (09:00)
[2021-05-20] MEDS: SODIUM CHLORIDE 1 GM TAB FT SCH ×2 (09:18→17:00)
[2021-05-20] MEDS: Levofloxacin 750mg IV 750 MG/150 ML BAG IV SCH (12:47)
--- NOTE | 2021-05-20 15:18 | P.PN ---
Subjective Date of Service: 05/20/21 Primary Care Provider: Matthew Chief Complaint: UTI, ARF, sepsis. Patient seen and examined at bedside, WBC uptrending. Review of Systems 10-point ROS is otherwise unremarkable Physical Examination - Vital Signs Temperature: 98.2 F Blood Pressure: 150/83 Pulse: 115 Respirations: 20 Pulse Ox (%): 97 - Studies Laboratory Last Values WBC 21.00 K/uL (4.3-10.9) H* 05/11/21 00:00 RBC 3.61 M/uL (4.33-5.43) L 05/11/21 00:00 Hgb 10.8 g/dL (13.6-17.9) L 05/11/21 00:00 Hct 33.2 % (39.6-49.0) L 05/11/21 00:00 MCV 91.8 fL (80-100) 05/11/21 00:00 MCH 29.9 pg (27.0-35.0) 05/11/21 00:00 MCHC 32.6 g/dL (32.0-36.0) 05/11/21 00:00 RDW 16.3 % (12.1-15.2) H 05/11/21 00:00 Plt Count 425 K/uL (152-406) H 05/11/21 00:00 MPV 7.4 fL (7.6-11.3) L 05/11/21 00:00 Neutrophils % 90.2 % (41.7-73.7) H 05/11/21 00:00 Lymphocytes % 2.5 % (15.3-44.8) L 05/11/21 00:00 Monocytes % 7.0 % (3.3-12.3) 05/11/21 00:00 Eosinophils % 0.0 % (0-4.4) 05/11/21 00:00 Basophils % 0.3 % (0-1.3) 05/11/21 00:00 Absolute Neutrophils 18.9 K/uL (1.8-8.0) H 05/11/21 00:00 Segmented Neutrophils 64 % (40-80) 05/11/21 00:00 Band Neutrophils 23 % (0-1) H* 05/11/21 00:00 Absolute Lymphocytes 0.5 K/uL (0.7-4.9) L 05/11/21 00:00 Lymphocytes 4 % (15-42) L 05/11/21 00:00 Monocytes 8 % (0-10) 05/11/21 00:00 Absolute Monocytes 1.5 K/uL (0.1-1.3) H 05/11/21 00:00 Absolute Eosinophils 0.0 K/uL (0-0.5) 05/11/21 00:00 Absolute Basophils 0.1 K/uL (0-0.5) 05/11/21 00:00 Reactive Lymphocytes 1 % 05/11/21 00:00 Platelet Estimate Adeq 05/11/21 00:00 Morphology Comment Not seen (NOT SEEN) 05/11/21 00:00 PT 16.2 SECONDS (9.5-12.5) H 05/11/21 00:00 INR 1.40 05/11/21 00:00 pH 7.46 (7.35-7.45) H 05/10/21 23: pCO2 29.1 mmHG (35-45) L 05/10/21 23: pO2 72.9 mmHG (75-100) L 05/10/21 23: HCO3 20.5 mmol/L (22-28) L 05/10/21 23: Base Excess -2.8 mmol/L 05/10/21: Oxyhemoglobin 90.8 % (94-97) L 05/10/21 23: ABG O2 Sat (Measured) 93.0 % (92-98.5) 05/10/21: ABG Carboxyhemoglobin 1.5 % (0-1.5) 05/10/21: ABG Methemoglobin 0.9 % (0-1.5) 05/10/21 23: Other Total Hgb 10.5 g/dl (12-18) L 05/10/21 23: Inspired O2 21.0 % 05/10/21 23: Sodium 132 mmol/L (136-145) L 05/11/21 03:00 Potassium 4.6 mmol/L (3.5-5.1) 05/11/21 03:00 Chloride 99 mmol/L (98-107) 05/11/21 03:00 Carbon Dioxide 21 mmol/L (21-32) 05/11/21 03:00 BUN 60 mg/dL (7-18) H 05/11/21 03:00 Creatinine 2.95 mg/dL (0.55-1.3) H 05/11/21 03:00 Estimated GFR 22 mL/min (=/>90) L 05/11/21 03:00 Glucose 199 mg/dL (74-106) H 05/11/21 03:00 Lactic Acid 2.8 mmol/L (0.4-2.0) H 05/11/21 03:00 Uric Acid 6.9 mg/dL (3.5-7.2) 05/11/21 03:00 Calcium 10.3 mg/dL (8.5-10.1) H 05/11/21 03:00 Magnesium 2.8 mg/dL (1.8-2.4) H 05/11/21 00:00 Total Bilirubin 0.5 mg/dL (0.2-1.0) 05/11/21 00:00 Direct Bilirubin 0.3 mg/dL (0-0.2) H 05/11/21 00:00 AST 32 U/L (15-37) 05/11/21 00:00 ALT 35 U/L (12-78) 05/11/21 00:00 Alkaline Phosphatase 160 U/L (45-117) H 05/11/21 00:00 Ammonia 18 umol/L (19-54) L 05/11/21 00:00 Creatine Kinase 19 U/L (39-308) L 05/11/21 03:00 Troponin I High Sens 5.40 pg/mL (<58.9) 05/11/21 00:00 NT-Pro-B Natriuret Pep 595 pg/mL (<125) H 05/11/21 00:00 Serum Total Protein 7.4 g/dL (6.4-8.2) 05/11/21 00:00 Albumin 1.4 g/dL (3.4-5.0) L 05/11/21 00:00 Globulin 6.0 g/dL (2.3-3.5) H 05/11/21 00:00 Albumin/Globulin Ratio 0.2 (1.1-1.8) L 05/11/21 00:00 Procalcitonin 2.32 ng/mL (<0.050) H 05/11/21 00:00 TSH 0.993 uIU/mL (0.360-3.740) 05/11/21 03:00 Free T4 1.71 ng/dL (0.76-1.46) H 05/11/21 03:00 Urine RBC <5 /HPF (NONE SEEN) 05/11/21 00:18 Urine WBC Tntc /HPF (<5) H 05/11/21 00:18 Ur Squamous Epith Cells THEATRICAL DRESSER 05/11/21 00:18 Urine Bacteria <20 /HPF (NONE SEEN) 05/11/21 00:18 Urine Culture Reflexed Not needed 05/11/21 00:18 Salicylates < 1.7 mg/dL (2.8-20) L 05/11/21 00:00 Opiates Screen Negative (NEGATIVE) 05/11/21 00:08 Methadone Screen Negative (NEGATIVE) 05/11/21 00:08 Acetaminophen < 2.0 ug/mL (10.0-30.0) L 05/11/21 00:00 Ur Barbiturates Screen Negative (NEGATIVE) 05/11/21 00:08 Ur Phencyclidine Scrn Negative (NEGATIVE) 05/11/21 00:08 Amphetamines Screen Negative (NEGATIVE) 05/11/21 00:08 Benzodiazepines Screen Negative (NEGATIVE) 05/11/21 00:08 Cocaine Screen Negative (NEGATIVE) 05/11/21 00:08 Ur THC Screen Negative (NEGATIVE) 05/11/21 00:08 Influenza Type A RNA Negative (NEGATIVE) 05/11/21 00:00 RSV RNA (INAAT) Negative (NEGATIVE) 05/11/21 00:00 Influenza Type B RNA Negative (NEGATIVE) 05/11/21 00:00 SARS-CoV-2 RNA (RT-PCR) Positive (NEGATIVE) A 05/11/21 00:00 Medications List Reviewed: Yes Assessment And Plan - Plan Physical Exam: General: Cachectic HEENT: Atraumatic, Normocephalic Neck: Supple, 2+ carotid pulse no bruit Respiratory: Clear to auscultation bilaterally, Normal air movement Capillary refill: <2 Seconds Gastrointestinal: Normal bowel sounds, Soft and benign Integumentary: Other (Right buttock/sacral unstageable decubitus wound. Bilateral heel deep tissue injuries.) Neurological: Other Conclusions/Impression: Antibiotics: merum: 2/6-current cefazolin: 05/20-current levaquin 05/17-05/20 Cefepime: 05/15-05/17 Assessment/plan Bacteremia Blood cultures obtained on 05/11 growing methicillin susceptible Staph aureus in both aerobic bottles. Repeat cultures on 05/15 show no growth @48hr. Source of infection infected Fragoso catheter/UTI versus infected right buttock/sacral unstageable decubitus pressure wound. Fragoso exchanged in ED. Patient will need IV antibiotics for 2 weeks following a negative blood culture report~tentative end date of 05/29. Patient initially on cefepime, antibiotics switched on 05/17 to merum and levaquin,. Levaquin DC on 05/20 and cefazolin started for better coverage against staph. TTE negative for acute vegetation. UTI Urine culture growing MSSA and Pseudomonas. Continue merum. Bilateral heel deep tissue injury/right buttocks/sacral unstageable decubitus wound Wound culture from right buttocks grew pseudomonas and proteus both sensitive to merum. Continue wound care per wound care team. Bilateral heel DTI wound care team following Float heels and avoid direct pressure. -Plan of care discussed with Dr. Manuel Thank you for consultation. Physician Review: Patient Assessed, Agree with Above Assessment and Plan
[2021-05-20] MEDS: CEFAZOLIN/SWI 2gm 2 GM/20 ML SYR IV SCH (17:15)
[2021-05-20] MEDS ORDERED: POLYETHYL GLY 3350 17 GM/DOSE FT PRN (17:30)
--- NOTE | 2021-05-20 17:30 | P.PN ---
Date of Service: 05/20/21 Subjective PICC line is being placed today. Anticipate discharge to assisted over the next 24 to 48 hours. Review of Systems 10-point ROS is otherwise unremarkable Physical Examination - Vital Signs Reviewed - Physical Exam General: Altered mentation; dementia Respiratory: Clear to auscultation bilaterally, Normal air movement Cardiovascular: Regular rate/rhythm, Normal S1 S2, No murmurs Gastrointestinal: Normal bowel sounds, Soft and benign, Non-distended, No tenderness Musculoskeletal: No clubbing, No swelling, No tenderness Neurological: Patient is bedbound and does not really interact appropriately - Studies Medications List Reviewed: Yes Assessment & Plan - Problems (Diagnosis) (1) Acute renal failure Current Visit: Yes Status: Acute Qualifiers: Acute renal failure type: unspecified Qualified Code(s): N17.9 - Acute kid kassandra failure, unspecified (2) COVID Current Visit: Yes Status: Acute (3) CVA (cerebral vascular accident) Current Visit: Yes Status: Chronic Qualifiers: CVA mechanism: unspecified Qualified Code(s): I63.9 - Cerebral infarction, unspecified (4) GERD (gastroesophageal reflux disease) Current Visit: Yes Status: Chronic Qualifiers: Esophagitis presence: without esophagitis Qualified Code(s): K21.9 - Gastro-esophageal reflux disease without esophagitis (5) Gastrostomy tube dependent Current Visit: Yes Status: Chronic (6) HLD (hyperlipidemia) Current Visit: Yes Status: Chronic Qualifiers: Hyperlipidemia type: unspecified Qualified Code(s): E78.5 - Hyperlipidemia, unspecified (7) HTN (hypertension) Current Visit: Yes Status: Chronic Qualifiers: Hypertension type: primary hypertension Qualified Code(s): I10 - Essential (primary) hypertension (8) T2DM (type 2 diabetes mellitus) Current Visit: Yes Status: Chronic Qualifiers: Diabetes mellitus fci insulin use: unspecified freight 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 Continue with broad-spectrum antibiotic coverage; 2. PICC line placement to be done today 3. Monitor renal function 4. Gentle hydration 5. Continue with tube feeds per recommendations of dietary 6. Transfer to [facility] once approved 7. GI DVT prophylaxis
--- NOTE | 2021-05-20 17:35 | RAD REPORT ---
EXAM DESCRIPTION: RAD - Chest Single View - 05/20/2021 5:14 pm CLINICAL HISTORY: PICC line placement COMPARISON: Abdomen 1 View (KUB) dated 05/13/2021; Abdomen 1 View (KUB) dated 05/11/2021; Chest Single View dated 05/11/2021; Chest Single View dated 05/10/2021 FINDINGS: Lines: Left subclavian approach PICC with tip overlying the SVC. Lungs: No evidence of edema or pneumonia. Pleural: No significant pleural effusions or pneumothorax. Cardiac: The heart size is within normal limits. Bones: No acute fractures. Other: IMPRESSION: No acute cardiopulmonary disease. PICC tip overlies the SVC.
[2021-05-20] MEDS: carvediloL 25 MG TAB FT SCH (20:21)
[2021-05-20] MEDS: Pantoprazole (granules) 40 MG/BLIST PACKET PO SCH (20:22)
[2021-05-20] MEDS: TAMSULOSIN 0.4 MG SR CAP FT SCH (20:25)
[2021-05-20] MEDS: POTASSIUM CHLORIDE 20 MEQ/15 ML FT SCH (20:26)
[2021-05-20] MEDS ORDERED: ATORVASTATIN 40 MG TAB FT SCH (21:00)
[2021-05-21] MEDS: CEFAZOLIN/SWI 2gm 2 GM/20 ML SYR IV SCH ×2 (00:02→09:00)
[2021-05-21] MEDS: Meropenem 1,000 MG in NA CHLORIDE 0.9% 100 ML IV SCH ×2 (00:03→08:53)
[2021-05-21] MEDS: HEPARIN 5000 UNIT/ML 1 ML VIAL SQ SCH ×2 (00:06→08:52)
[2021-05-21 04:16] VITALS: O2SAT 96
[2021-05-21] MEDS: INSULIN -REGULAR HUMAN 50 UNIT/0.5 ML ML SQ SCH ×3 (05:10→12:00)
[2021-05-21 05:54] LABS: Absolute Lymphocytes (CBC) 1.9 K/uL (0.7-4.9); Hematocrit 30.7 % (39.6-49.0); Lymphocytes % 14.4 % (15.3-44.8); MPV 6.8 fL (7.6-11.3)
[2021-05-21 06:20] LABS: ALT/SGPT 85 U/L (12-78); AST/SGOT 40 U/L (15-37); Albumin 1.7 g/dL (3.4-5.0); Alkaline Phosphatase 140 U/L (45-117); BUN Blood Urea Nitrogen 15 mg/dL (7-18); Bicarbonate 25 mmol/L (21-32); Bilirubin Total 0.2 mg/dL (0.2-1.0); Glucose Level 118 mg/dL (74-106); NT PRO-BNP 183 pg/mL (<125); Phosphorus 2.6 mg/dL (2.5-4.9); Protein, Total 6.9 g/dL (6.4-8.2); Sodium Level 129 mmol/L (136-145)
[2021-05-21] MEDS: D5NS KCL 20MEQ 20 MEQ/1,000 ML BAG IV SCH ×2 (06:24→08:00)
[2021-05-21] MEDS: SODIUM CHLORIDE 1 GM TAB FT SCH (08:00)
[2021-05-21] MEDS: carvediloL 25 MG TAB FT SCH (08:49)
[2021-05-21] MEDS: TAMSULOSIN 0.4 MG SR CAP FT SCH (08:49)
[2021-05-21] MEDS: Pantoprazole (granules) 40 MG/BLIST PACKET PO SCH (08:51)
[2021-05-21] MEDS: POTASSIUM CHLORIDE 20 MEQ/15 ML FT SCH (08:52)
[2021-05-21] MEDS: MEDIHONEY 44 ML TOPICAL TUBE TOP SCH (08:53)
[2021-05-21] MEDS ORDERED: VITAMIN D 1000 UNIT TAB FT SCH (09:00)
[2021-05-21] MEDS ORDERED: FLUOXETINE HCL 10 MG FT SCH (09:00)
[2021-05-21] MEDS ORDERED: DOXAZOSIN 1 MG TAB FT SCH (09:00)
[2021-05-21] MEDS ORDERED: ASCORBIC ACID 500 MG TABLET FT SCH (09:00)
[2021-05-21] MEDS ORDERED: modafiniL 100 MG TAB PO SCH (09:00)
[2021-05-21] MEDS ORDERED: DOCUSATE SODIUM 50 MG/5 ML FT SCH (09:00)
[2021-05-21] MEDS ORDERED: AMLODIPINE 10 MG TAB FT SCH (09:00)
[2021-05-21] MEDS ORDERED: DOXAZOSIN 2 MG TAB FT SCH (09:00)
[2021-05-21] MEDS ORDERED: HOME MED 1 EA UNK (Zinc [Zinc] 50 MG Tablet) FT SCH (09:00)
[2021-05-21] MEDS ORDERED: DOXAZOSIN 1 MG TAB PO SCH (09:00)
[2021-05-21] MEDS ORDERED: HOME MED 1 EA UNK (Ascorbate Calcium [Vitamin C] 500 MG Tablet) FT SCH (09:00)
[2021-05-21] MEDS ORDERED: FAMOTIDINE 20 MG TAB FT SCH (09:00)
[2021-05-21] MEDS ORDERED: ZINC SULFATE 220 MG CAP FT SCH (09:00)
--- NOTE | 2021-05-21 11:12 | P.PN ---
Subjective Date of Service: 05/21/21 Primary Care Provider: Matthew Chief Complaint: UTI, ARF, sepsis. Patient seen and examined at bedside, left arm PICC line placed. Review of Systems 10-point ROS is otherwise unremarkable Physical Examination - Vital Signs Temperature: 97.8 F Blood Pressure: 133/65 Pulse: 101 Respirations: 20 Pulse Ox (%): 99 - Studies Laboratory Last Values WBC 21.00 K/uL (4.3-10.9) H* 05/11/21 00:00 RBC 3.61 M/uL (4.33-5.43) L 05/11/21 00:00 Hgb 10.8 g/dL (13.6-17.9) L 05/11/21 00:00 Hct 33.2 % (39.6-49.0) L 05/11/21 00:00 MCV 91.8 fL (80-100) 05/11/21 00:00 MCH 29.9 pg (27.0-35.0) 05/11/21 00:00 MCHC 32.6 g/dL (32.0-36.0) 05/11/21 00:00 RDW 16.3 % (12.1-15.2) H 05/11/21 00:00 Plt Count 425 K/uL (152-406) H 05/11/21 00:00 MPV 7.4 fL (7.6-11.3) L 05/11/21 00:00 Neutrophils % 90.2 % (41.7-73.7) H 05/11/21 00:00 Lymphocytes % 2.5 % (15.3-44.8) L 05/11/21 00:00 Monocytes % 7.0 % (3.3-12.3) 05/11/21 00:00 Eosinophils % 0.0 % (0-4.4) 05/11/21 00:00 Basophils % 0.3 % (0-1.3) 05/11/21 00:00 Absolute Neutrophils 18.9 K/uL (1.8-8.0) H 05/11/21 00:00 Segmented Neutrophils 64 % (40-80) 05/11/21 00:00 Band Neutrophils 23 % (0-1) H* 05/11/21 00:00 Absolute Lymphocytes 0.5 K/uL (0.7-4.9) L 05/11/21 00:00 Lymphocytes 4 % (15-42) L 05/11/21 00:00 Monocytes 8 % (0-10) 05/11/21 00:00 Absolute Monocytes 1.5 K/uL (0.1-1.3) H 05/11/21 00:00 Absolute Eosinophils 0.0 K/uL (0-0.5) 05/11/21 00:00 Absolute Basophils 0.1 K/uL (0-0.5) 05/11/21 00:00 Reactive Lymphocytes 1 % 05/11/21 00:00 Platelet Estimate Adeq 05/11/21 00:00 Morphology Comment Not seen (NOT SEEN) 05/11/21 00:00 PT 16.2 SECONDS (9.5-12.5) H 05/11/21 00:00 INR 1.40 05/11/21 00:00 pH 7.46 (7.35-7.45) H 05/10/21 23: pCO2 29.1 mmHG (35-45) L 05/10/21 23: pO2 72.9 mmHG (75-100) L 05/10/21 23: HCO3 20.5 mmol/L (22-28) L 05/10/21 23: Base Excess -2.8 mmol/L 05/10/21 23: Oxyhemoglobin 90.8 % (94-97) L 05/10/21 23: ABG O2 Sat (Measured) 93.0 % (92-98.5) 05/10/21 23: ABG Carboxyhemoglobin 1.5 % (0-1.5) 05/10/21 23: ABG Methemoglobin 0.9 % (0-1.5) 05/10/21 23: Other Total Hgb 10.5 g/dl (12-18) L 05/10/21 23: Inspired O2 21.0 % 05/10/21 23: Sodium 132 mmol/L (136-145) L 05/11/21 03:00 Potassium 4.6 mmol/L (3.5-5.1) 05/11/21 03:00 Chloride 99 mmol/L (98-107) 05/11/21 03:00 Carbon Dioxide 21 mmol/L (21-32) 05/11/21 03:00 BUN 60 mg/dL (7-18) H 05/11/21 03:00 Creatinine 2.95 mg/dL (0.55-1.3) H 05/11/21 03:00 Estimated GFR 22 mL/min (=/>90) L 05/11/21 03:00 Glucose 199 mg/dL (74-106) H 05/11/21 03:00 Lactic Acid 2.8 mmol/L (0.4-2.0) H 05/11/21 03:00 Uric Acid 6.9 mg/dL (3.5-7.2) 05/11/21 03:00 Calcium 10.3 mg/dL (8.5-10.1) H 05/11/21 03:00 Magnesium 2.8 mg/dL (1.8-2.4) H 05/11/21 00:00 Total Bilirubin 0.5 mg/dL (0.2-1.0) 05/11/21 00:00 Direct Bilirubin 0.3 mg/dL (0-0.2) H 05/11/21 00:00 AST 32 U/L (15-37) 05/11/21 00:00 ALT 35 U/L (12-78) 05/11/21 00:00 Alkaline Phosphatase 160 U/L (45-117) H 05/11/21 00:00 Ammonia 18 umol/L (19-54) L 05/11/21 00:00 Creatine Kinase 19 U/L (39-308) L 05/11/21 03:00 Troponin I High Sens 5.40 pg/mL (<58.9) 05/11/21 00:00 NT-Pro-B Natriuret Pep 595 pg/mL (<125) H 05/11/21 00:00 Serum Total Protein 7.4 g/dL (6.4-8.2) 05/11/21 00:00 Albumin 1.4 g/dL (3.4-5.0) L 05/11/21 00:00 Globulin 6.0 g/dL (2.3-3.5) H 05/11/21 00:00 Albumin/Globulin Ratio 0.2 (1.1-1.8) L 05/11/21 00:00 Procalcitonin 2.32 ng/mL (<0.050) H 05/11/21 00:00 TSH 0.993 uIU/mL (0.360-3.740) 05/11/21 03:00 Free T4 1.71 ng/dL (0.76-1.46) H 05/11/21 03:00 Urine RBC <5 /HPF (NONE SEEN) 05/11/21 00:18 Urine WBC Tntc /HPF (<5) H 05/11/21 00:18 Ur Squamous Epith Cells OPEN 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 05/11/21 00:18 Urine Bacteria <20 /HPF (NONE SEEN) 05/11/21 00:18 Urine Culture Reflexed Not needed 05/11/21 00:18 Salicylates < 1.7 mg/dL (2.8-20) L 05/11/21 00:00 Opiates Screen Negative (NEGATIVE) 05/11/21 00:08 Methadone Screen Negative (NEGATIVE) 05/11/21 00:08 Acetaminophen < 2.0 ug/mL (10.0-30.0) L 05/11/21 00:00 Ur Barbiturates Screen Negative (NEGATIVE) 05/11/21 00:08 Ur Phencyclidine Scrn Negative (NEGATIVE) 05/11/21 00:08 Amphetamines Screen Negative (NEGATIVE) 05/11/21 00:08 Benzodiazepines Screen Negative (NEGATIVE) 05/11/21 00:08 Cocaine Screen Negative (NEGATIVE) 05/11/21 00:08 Ur THC Screen Negative (NEGATIVE) 05/11/21 00:08 Influenza Type A RNA Negative (NEGATIVE) 05/11/21 00:00 RSV RNA (INAAT) Negative (NEGATIVE) 05/11/21 00:00 Influenza Type B RNA Negative (NEGATIVE) 05/11/21 00:00 SARS-CoV-2 RNA (RT-PCR) Positive (NEGATIVE) A 05/11/21 00:00 Medications List Reviewed: Yes Assessment And Plan - Plan Physical Exam: General: Cachectic HEENT: Atraumatic, Normocephalic Neck: Supple, 2+ carotid pulse no bruit Respiratory: Clear to auscultation bilaterally, Normal air movement Capillary refill: <2 Seconds Gastrointestinal: Normal bowel sounds, Soft and benign Integumentary: Other (Right buttock/sacral unstageable decubitus wound. Bilateral heel deep tissue injuries.) Neurological: Other Conclusions/Impression: Antibiotics: merum: 2/6-current cefazolin: 05/20-current levaquin 05/17-05/20 Cefepime: 05/15-05/17 Assessment/plan Bacteremia Blood cultures obtained on 05/11 growing methicillin susceptible Staph aureus in both aerobic bottles. Repeat cultures on 05/15 show no growth @48hr. Source of infection infected Fragoso catheter/UTI versus infected right buttock/sacral unstageable decubitus pressure wound. Fragoso exchanged in ED. Patient will need IV antibiotics for 2 weeks following a negative blood culture report~tentative end date of 05/29 for cefazolin. Tentative end date for meropenem of 05/23 for wound infection and UTI. Patient initially on cefepime, antibiotics switched on 05/17 to merum and levaquin. Levaquin DC on 05/20 and cefazolin started for better coverage against staph. TTE negative for acute vegetation. UTI Urine culture growing MSSA and Pseudomonas. Continue merum. Bilateral heel deep tissue injury/right buttocks/sacral unstageable decubitus wound Wound culture from right buttocks grew pseudomonas and proteus both sensitive to merum. Continue wound care per wound care team. Bilateral heel DTI wound care team following Float heels and avoid direct pressure. -Plan of care discussed with Dr. Manuel Thank you for consultation. Physician Review: Patient Assessed, Agree with Above Assessment and Plan
[2021-05-21 13:03] VITALS: BP 100/55; TEMP 97.4
[2021-05-21 18:46] LABS: Magnesium 1.8
== END 2021-05-21 12:45 | DRG 698 ==
LOC: ER 23:14 → ERHOLD 05-11 03:43 → 4TH 05-12 23:36
PROVIDERS: ADMIT Internal Medicine; ATTEND Hospitalist
PROC: 02HV33Z Insertion of Infusion Device into Superior Vena Cava, Percutaneous Approach (ICD-10-PCS; principal; 2021-05-20)
DX: T83.518A Infection and inflammatory reaction due to other urinary catheter, initial encounter (principal); A41.01 Sepsis due to Methicillin susceptible Staphylococcus aureus; U07.1 COVID-19; R65.21 Severe sepsis with septic shock; N30.00 Acute cystitis without hematuria; I69.354 Hemiplegia and hemiparesis following cerebral infarction affecting left non-dominant side; I69.351 Hemiplegia and hemiparesis following cerebral infarction affecting right dominant side; R64 Cachexia; N17.9 Acute kidney failure, unspecified; E87.1 Hypo-osmolality and hyponatremia; K56.7 Ileus, unspecified; Z16.24 Resistance to multiple antibiotics; E87.5 Hyperkalemia; I10 Essential (primary) hypertension; E87.6 Hypokalemia; Z93.1 Gastrostomy status; B96.5 Pseudomonas (aeruginosa) (mallei) (pseudomallei) as the cause of diseases classified elsewhere; E11.9 Type 2 diabetes mellitus without complications; N31.9 Neuromuscular dysfunction of bladder, unspecified; N40.0 Benign prostatic hyperplasia without lower urinary tract symptoms; K21.9 Gastro-esophageal reflux disease without esophagitis; E78.5 Hyperlipidemia, unspecified; L89.316 Pressure-induced deep tissue damage of right buttock; L89.626 Pressure-induced deep tissue damage of left heel; L89.616 Pressure-induced deep tissue damage of right heel; I69.320 Aphasia following cerebral infarction; R13.10 Dysphagia, unspecified; I69.391 Dysphagia following cerebral infarction; Z74.01 Bed confinement status; Z68.22 Body mass index [BMI] 22.0-22.9, adult; F03.90 Unspecified dementia, unspecified severity, without behavioral disturbance, psychotic disturbance, mood disturbance, and anxiety
CPT/HCPCS: 0241U; 36415; 36569; 51702; 70450; 71045; 74018; 74176; 76770; 80048; 80053; 80061; 80076; 80202; 80307; 80329; 81015; 82140; 82550; 82805; 82947; 83605; 83735; 83880; 84100; 84132; 84145; 84439; 84443; 84484; 84550; 85025; 85610; 86140; 87040; 87070; 87075; 87077; 87086; 87088; 87186; 87205; 90714; 92610; 93005; 93306; 94640; 94760; 96365; 96366; 96375; 99251; 99285; J0690; J0692; J1644; J2185; J3370; J3480; J7030; J7040; J7050; J7120

== ENCOUNTER 2021-05-22 11:49 | Inpatient (IN) | payer BC ==
--- OUTSIDE RECORDS SUMMARY | 2021-05-22 12:08 | XMS REPORT | Continuity of Care Document ---
:1955 Author Organization [facility] t Address [address] [place] [address] Care Team Providers Name Role Phone DOV [...] Attending Clinician Unavailable Herminio BELLO Attending Clinician [facility] Attending Clinician Unavailable Juli Scott MD Attending [...] Expiration Date S shan IZQUIERDO [employer] BLUE [id number] 2020 ADVANTAGE O 00:00:00 Problems Condition Condition Condition Status Onset Resolution Last Treating Co mments Source Name Details Category Date Date Treatment Clinician Date Stroke Stroke Disease Active 2020-04 Univers determined determined 2-15 it y of by by 00:00: [place] clinical clinical 00 Medica l assessment assessment Br anch Right leg Right leg Disease Active 2020-04 Uni vers weakness weakness 2-11 ity of 00:00: [place] 00 Medical Branch E44.0 E44.0 Disease Active 2020-04 Univers Moderate Moderate 2-06 ity of protein protein 00:00: [place] calorie calorie 00 Medical malnutriti malnutriti Br anch on on Coffee Coffee Disease Active 2020-04 Overview: [facility] s ground ground 2-05 Formattin ity of emesis emesis 00:00: g of this [place] 00 note Medical might be Branch different from the original. 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 Confusion Confusion Disease Active 2020-04 Uni vers 0-29 ity of 00:00: [place] 00 Medical Branch Cerebrovas Cerebrovas Diagnosis Active [...] Active Univers ALLERGIE Class ity of S [facility] Family History Family Member Diagnosis Comments Start Date Stop Date Source Natural father Cancer [facility] Natural father High cholesterol Univ ersity [facility] Natural father Hypertension Universi ty of [facility] Natural mother Cancer [facility] Natural mother Stroke [facility] Social History Social Habit Start Date Stop Date Quantity Comments Source History of tobacco Cigarette Smoker University use [facility] Exposure to Unable to assess Univers ity of SARS-CoV-2 (event) [facility] History [facility] o f Alcohol Frequency [facility] History [facility] o f Alcohol Std Drinks [facility] History [facility] o f Alcohol Binge [facility] Alcohol intake 2021-03-31 2021-03-31 Ex-drinker University 00:00:00 00:00:00 (finding) [facility] Education 2021-03-15 2021-03-15 21 University 00:00:00 00:00:00 [facility] Alcohol Comment 2021-03-02 2021-03-02 Socially Universit y of 00:00:00 00:00:00 [facility] Cigarettes smoked 2021-02-09 2021-02-09 Univers ity of current (pack per 00:00:00 00:00:00 [facility] ) - Reported Branch Cigarette 2021-02-09 2021-02-09 University of pack-years 00:00:00 00:00:00 [facility] Tobacco use and 2021-02-09 2021-02-09 Former user Universi ty of exposure 00:00:00 00:00:00 [facility] Sex [birth year] Universit y of 00:00:00 00:00:00 [facility] Smoking Status Start Date Stop Date Source Never smoker [facility] Former smoker 2021-02-09 00:00:00 2021-02-09 00:00:00 Universi ty of [place] [facility] Medications Ordered Filled Start Stop Current Ordering Indication Dosage Frequency Signature Comments Components Source Medication Medication Date Date Medication? Clinician (SIG) Name Name ascorbic 2020-04 Yes 500mg Take 500 Univ ers acid, 2-28 mg by ity of vitamin C, 17:17: mouth. [place] 500 mg 40 Medical tablet Branch cholecalcif 2020-04 Yes 5000U Take 5,000 Univers boy, 2-28 Units by ity of vitamin D3, 17:17: [place]. [place] 25 mcg 40 Medical (1,000 Branch unit) tablet ascorbic 2020-04 Yes 500mg Take 500 Univ ers acid, 2-28 mg by ity of vitamin C, 17:17: mouth. [place] 500 mg 40 Medical tablet Branch cholecalcif 2020-04 Yes 5000U Take 5,000 Univers boy, 2-28 Units by ity of vitamin D3, 17:17: mouth. [place] 25 mcg 40 Medical (1,000 Branch unit) tablet ascorbic 2020-04 Yes 500mg Take 500 Univ ers acid, 2-28 mg by ity of vitamin C, 17:17: mouth. [place] 500 mg 40 Medical tablet Branch cholecalcif 2020-04 Yes 5000U Take 5,000 Univers boy, 2-28 Units by ity of vitamin D3, 17:17: mouth. [place] 25 mcg 40 Medical (1,000 Branch unit) tablet ascorbic 2020-04 Yes 500mg Take 500 Univ ers acid, 2-28 mg by ity of vitamin C, 17:17: mouth. [place] 500 mg 40 Medical tablet Branch cholecalcif 2020-04 Yes 5000U Take 5,000 Univers boy, 2-28 Units by ity of vitamin D3, 17:17: mouth. [place] 25 mcg 40 Medical (1,000 Branch unit) tablet pantoprazol 2020-04 Yes [id number] 40mg Take 20 mL Univers e 2 mg/mL 2-28 through ity of oral 00:00: enteral [place] suspension 00 tube 2 Medical (two) Branch times daily. pantoprazol 2020-04 Yes [id number] 40mg Take 20 mL Univers e 2 mg/mL 2-28 through ity of oral 00:00: enteral [place] suspension 00 tube 2 Medical (two) Branch times daily. pantoprazol 2020-04 Yes [id number] 40mg Take 20 mL Univers e 2 mg/mL 2-28 through ity of oral 00:00: enteral [place] suspension 00 tube 2 Medical (two) Branch times daily. amLODIPine 2020-04- Yes [id number] 10mg Take 1 Univers 10 mg 2-28 12-24 tablet ity of tablet 00:00: 05:59 through [place] 00 :00 enteral Medical tube daily Branch for 360 days. polyethylen 2020-04- Yes [id number] 17g Take 1 Univers e glycol 2-28 12-24 Packet ity of 3350 17 00:00: 05:59 through [place] gram powder 00 :00 enteral Medic al tube daily Branch for 360 days. modafiniL 2020-04- Yes [id number] 100mg Take 1 Univers 100 mg 2-28 12-24 tablet ity of tablet 00:00: 05:59 through [place] 00 :00 enteral Medical tube daily Branch for 360 days. FLUoxetine 2020-04- Yes [id number] 10mg Take 2.5 Univers 20 mg/5 mL 2-28 12-24 mL through it y of (4 mg/mL) 00:00: 05:59 [place]eral [place] solution 00 :00 tube daily Medic al for 360 Branch days. docusate 50 2020-04- Yes [id number] 100mg Take 10 mL Univers mg/5 mL 2-28 12-24 through ity of solution 00:00: 05:59 enteral [place] 00 :00 tube daily Medical for 360 Branch days. amLODIPine 2020-04- Yes [id number] 10mg Take 1 Univers 10 mg 2-28 12-24 tablet ity of tablet 00:00: 05:59 through [place] 00 :00 enteral Medical tube daily Branch for 360 days. polyethylen 2020-04- Yes [id number] 17g Take 1 Univers e glycol 2-28 12-24 Packet ity of 3350 17 00:00: 05:59 through [place] gram powder 00 :00 enteral Medic al tube daily Branch for 360 days. modafiniL 2020-04- Yes [id number] 100mg Take 1 Univers 100 mg 2-28 12-24 tablet ity of tablet 00:00: 05:59 through [place] 00 :00 enteral Medical tube daily Branch for 360 days. FLUoxetine 2020-04- Yes [id number] 10mg Take 2.5 Univers 20 mg/5 mL 2- 12-24 mL through it y of (4 mg/mL) 00:00: 05:59 [place]eral [place] solution 00 :00 tube daily Medic al for 360 Branch days. docusate 50 2020-04- Yes [id number] 100mg Take 10 mL Univers mg/5 mL - 12-24 through ity of solution 00:00: 05:59 enteral [place] 00 :00 tube daily Medical for 360 Branch days. amLODIPine 2020-04- Yes [id number] 10mg Take 1 Univers 10 mg - 12-24 tablet ity of tablet 00:00: 05:59 through [place] 00 :00 enteral Medical tube daily Branch for 360 days. polyethylen 2020-04- Yes [id number] 17g Take 1 Univers e glycol 06-08-24 Packet ity of 3350 17 00:00: 05:59 through [place] gram powder 00 :00 enteral Medic al tube daily Branch for 360 days. modafiniL 2020-04- Yes [id number] 100mg Take 1 Univers 100 mg - 12-24 tablet ity of tablet 00:00: 05:59 through [place] 00 :00 enteral Medical tube daily Branch for 360 days. FLUoxetine 2020-04- Yes [id number] 10mg Take 2.5 Univers 20 mg/5 mL - 12-24 mL through it y of (4 mg/mL) 00:00: 05:59 enteral [place] solution 00 :00 tube daily Medic al for 360 Branch days. docusate 50 2020-04- Yes [id number] 100mg Take 10 mL Univers mg/5 mL - 12-24 through ity of solution 00:00: 05:59 enteral [place] 00 :00 tube daily Medical for 360 Branch days. pantoprazol 2020-04- No [id number] 40mg Take 20 mL Univers e 2 [...] of tablet 13:44: 00:00 [place] 38 :00 [facility] Branch metformin 2020-04- No 750mg Take 750 Un dariela ER 750 mg - 12-27 mg by ity of 24 hr 13:44: 00:00 mouth. [place] tablet 38 :00 Medical Branch clopidogreL 2020-04- No 75mg Take 75 mg Univers 75 mg 06-07- by mouth. ity of tablet 13:44: 00:00 [place] 38 :00 [facility] Branch carvediloL 2020-04- No 25mg Take 25 mg Univers (COREG) 25 06-07 by mouth 2 it y of mg tablet 13:44: 00:00 (two) [place] 37 :00 times Medical daily with [place] meals. atorvastati 2020-04- Yes [id number] 40mg Take 1 Univers n 40 mg 06-07 tablet ity of tablet 00:00: 05:59 through [place] 00 :00 enteral Medical tube at [place] bedtime for 360 days. carvedilol 2020-04- Yes [id number] 25mg Take 20 mL Univers 1.25 mg/mL 06-07 through ity o f oral 00:00: 05:59 enteral [place] suspension 00 :00 tube 2 Medical (two) Branch times daily with meals for 360 days. ticagrelor 2020-04- Yes [id number] 90mg Take 1 Univers 90 mg 06-07 tablet ity of tablet 00:00: 05:59 through [place] 00 :00 enteral Medical tube 2 Branch (two) times daily for 360 days. tamsulosin 2020-04- Yes [id number] .4mg Take 1 Univers 0.4 mg 24 06-07- capsule by ity of hr capsule 00:00: 05:59 mouth 2 [place] 00 :00 (two) Medical times Branch daily for 360 days. KCL 20 2020-04- Yes [id number] 20meq Take 15 mL Univers mEq/15 mL 06-07 through ity of solution 00:00: 05:59 enteral [place] 00 :00 tube 2 Medical (two) Branch times daily for 360 days. atorvastati 2020-04- Yes [id number] 40mg Take 1 Univers n 40 mg -06 04-23 tablet ity of tablet 00:00: 05:59 through [place] 00 :00 enteral Medical tube at Branch bedtime for 360 days. carvedilol 2020-04- Yes [id number] 25mg Take 20 mL Univers 1.25 mg/mL 06-07- through ity o f oral 00:00: 05:59 enteral [place] suspension 00 :00 tube 2 Medical (two) Branch times daily with meals for 360 days. ticagrelor 2020-04- Yes [id number] 90mg Take 1 Univers 90 mg - 12- tablet ity of tablet 00:00: 05:59 through [place] 00 :00 enteral Medical tube 2 Branch (two) times daily for 360 days. tamsulosin 2020-04- Yes [id number] .4mg Take 1 Univers 0.4 mg 24 06-07 capsule by ity of hr capsule 00:00: 05:59 mouth 2 [place] 00 :00 (two) Medical times Branch daily for 360 days. KCL 20 2020-04- Yes [id number] 20meq Take 15 mL Univers mEq/15 mL 06-07 through ity of solution 00:00: 05:59 enteral [place] 00 :00 tube 2 Medical (two) Branch times daily for 360 days. atorvastati 2020-04- Yes [id number] 40mg Take 1 Univers n 40 mg -06 04- tablet ity of tablet 00:00: 05:59 through [place] 00 :00 enteral Medical tube at Branch bedtime for 360 days. carvedilol 2020-04- Yes [id number] 25mg Take 20 mL Univers 1.25 mg/mL 06-07-23 through ity o f oral 00:00: 05:59 enteral [place] suspension 00 :00 tube 2 Medical (two) Branch times daily with meals for 360 days. ticagrelor 2020-04- Yes [id number] 90mg Take 1 Univers 90 mg - 12-23 tablet ity of tablet 00:00: 05:59 through [place] 00 :00 enteral Medical tube 2 Branch (two) times daily for 360 days. tamsulosin 2020-04- Yes [id number] .4mg Take 1 Univers 0.4 mg 24 06-07 capsule by ity of hr capsule 00:00: 05:59 mouth 2 [place] 00 :00 (two) Medical times Branch daily for 360 days. KCL 20 2020-04- Yes [id number] 20meq Take 15 mL Univers mEq/15 mL 06-07 through ity of solution 00:00: 05:59 enteral [place] 00 :00 tube 2 Medical (two) Branch times daily for 360 days. pantoprazol 2020-04- No [id number] 40mg Take 20 mL Univers e 2 [...] Tue03/31/21 at 0900, Until Discontinu ed, Routine
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
R dwight for non-formul hank use: SPECIFIC INDICATION FOR NONFORMULA RY PRODUCT modafiniL 2020-04 Yes 100mg 100 mg, Univ ers (PROVIGIL) 2- Enteral, ity o f tablet 100 15:00: DAILY, [place] mg 00 First dose Medical (after Branch last modificati on) on Tue03/31/21 at 0900, Until Discontinu ed, Routine
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 Non-formul hank medication : JIA SANTAMARIA [...] 2100, Until Discontinu ed iopamidol 2020-04- No [id number] 90mL 90 mL, Univers (ISOVUE 05-28 Intravenou [...] :11 First dose Medi jaspal infusion on [facility] Branch 03/26/21 at 1430, Until Discontinu ed, Administer over 30 Minutes, 100 mL glycerin/mi 2020-04 225mL 225 mL, U nivers neral oil -26 03- Rectal, ity of (AGLO 20:30: 21:32 ONCE, 1 [place] ENEMA) 00 :00 dose, On Medical (COMPOUNDED [facility] ) Enem 225 03/26/21 mL at 1430, Routine FLUoxetine 2020-04 Yes 10mg 10 mg, Unive rs (PROZAC) 20 2-16 Enteral, ity of mg/5 mL (4 15:00: DAILY, [place] mg/mL) 00 First dose Medical solution 10 (after Branch mg last modificati on) on [facility] 03/26/21 at 0900, Until Discontinu ed, Routine FLUoxetine 2020-04 Yes 10mg 10 mg, Unive rs (PROZAC) 20 2-16 Enteral, ity of mg/5 mL (4 15:00: DAILY, [place] mg/mL) 00 First dose Medical solution 10 (after Branch mg last modificati on) on [facility] 03/26/21 at 0900, Until Discontinu ed, Routine clopidogreL 2020-04 75mg 75 mg, Uni vers (PLAVIX) 2-16 -16 Enteral, ity of tablet 75 15:00: 20:56 DAILY, [place] mg 00 :58 First dose Medical (after Branch last modificati on) on [facility] 03/26/21 at 0900, Until Discontinu ed, Routine [...] Until Discontinu ed, Routine gadoteridol 2020-04- No [id number] .2mL/kg 14.5 mL Univers (PROHANCE-1 2-15 12-15 [...] First dose [place] mEq 00 :56 on [facility] 03/23/21 Branch at 2000, Until Discontinu ed, Routine carvedilol 2020-04 Yes 25mg 25 mg, Unive rs (COREG) 2-13 Enteral, ity of 1.25 mg/mL 23:00: BID MEALS, [place] oral 00 First dose Medical suspension on [facility] Branch 25 mg 03/23/21 at 1700, Until Discontinu ed, Routine carvedilol 2020-04 Yes 25mg 25 mg, Unive rs (COREG) 2-13 Enteral, ity of 1.25 mg/mL 23:00: BID MEALS, [place] oral 00 First dose Medical suspension on Tue [place] 25 mg 03/23/21 at 1700, Until Discontinu ed, Routine acetaminoph 2020-04 Yes 650mg 650 mg, Un dariela en -13 Enteral, ity of (TYLENOL) 21:10: Q6HPRN, [place] tablet 650 48 Starting Medic al mg on Tue [place] 03/23/21 at 1510, Until Discontinu ed, Routine, Pain (scale 1-3) acetaminoph 2020-04 Yes 650mg 650 mg, Un dariela en 05-24 Enteral, ity of (TYLENOL) 21:10: Q6HPRN, [place] tablet 650 48 Starting Medic al mg on Tue Branch 03/23/21 at 1510, Until Discontinu ed, Routine, Pain (scale 1-3) sulfur 2020-04- No [id number] 5mL 5 mL, Univ ers hexafluorid 05-24 Intravenou i ty of e microsphr 18:00: 16:38 s, ONCE, 1 [place] (LUMASON) 00 :00 dose, On Medica l injection 5 Tue Branch mL 03/23/21 at 1200, Routine
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 iopamidol 2020-04- No [id number] 80mL 80 mL, Univers (ISOVUE 05-23 004279 Intravenou ity of 370-500 mL) 17:30: 17:30 s, ONCE, 1 [place] injection 00 :00 dose, On Medica l 80 mL Sun [place] 03/22/21 at 1130, Routine magnesium 2020-04- No [...] Discontinu ed, Routine Sliding 2020-04 Yes Subcutaneo [facility] [place] [facility] ers Scale 2-06 us, TIDAC, ity of Insulin-Reg 22:30: First dose [place] ular + Fsbg 00 on [facility] Medica l Testing 03/16/21 at Branch 1630, Until Discontinu ed, Routine Sliding 2020-04 Yes Subcutaneo [facility] [place] [facility] ers Scale 2-06 us, TIDAC, ity of Insulin-Reg 22:30: First dose [place] ular + Fsbg 00 on [facility] Medica l Testing 03/16/21 at Branch 1630, Until Discontinu ed, Routine amLODIPine 2020-04- No 10mg 10 mg, Univ ers (NORVASC) 05-17 Oral, ity of tablet 10 21:30: 21:11 DAILY, [place] mg 00 :06 First dose Medical on [facility] 03/16/21 at 1530, Until Discontinu ed, Routine KCL 2020-04- No 40meq 40 mEq, Univers (KLOR-CON 05-17- Oral, ity of M20) tablet 21:15: 21:41 ONCE, 1 [place] 40 mEq 00 :00 dose, On Medical [facility] 03/16/21 at 1515, Routine polyethylen 2020-04- No 17g 17 g, Univ ers e glycol 05-17 Oral, ity of 3350 powder 18:00: 21:11 DAILY, [place] 17 g 00 :06 First dose Medical on [facility] 03/16/21 at 1200, Until Discontinu ed, Routine glucagon 2020-04 Yes 1mg 1 mg, Univers (GLUCAGEN 05-17 Intramuscu ity of DIAGNOSTIC 17:50: lar, PRN, [place] KIT) 18 Starting Medical injection 1 on [facility] 03/16/21 at 1150, Until Discontinu ed, RODRIGO, Blood Glucose < or = 70 mg/dL and patient is unable to swallow or has mental changes. dextrose 50 2020-04 Yes 25mL 25 mL, Univ ers % in water 05-17 Slow IV ity of (D50W) 17:50: Push, PRN, [place] injection 18 Starting Medica l 25 mL on [facility] 03/16/21 at 1150, Until Discontinu ed, RODRIGO, Blood Glucose < or = 70 mg/dL and patient is unable to swallow or has mental status changes. glucagon 2020-04 Yes 1mg 1 mg, Univers (GLUCAGEN 05-17 Intramuscu ity of DIAGNOSTIC 17:50: lar, PRN, [place] KIT) 18 Starting Medical injection 1 on [facility] 03/16/21 at 1150, Until Discontinu ed, RODRIGO, Blood Glucose < or = 70 mg/dL and patient is unable to swallow or has mental changes. dextrose 50 2020-04 Yes 25mL 25 mL, Univ ers % in water -06 Slow IV ity of (D50W) 17:50: Push, PRN, [place] injection 18 Starting Medica l 25 mL on [facility] 03/16/21 at 1150, Until Discontinu ed, RODRIGO, [...] 4 25 Starting Medi jaspal mg on [facility] 03/16/21 at 0926, Until Discontinu ed, Routine, Nausea and Vomiting (N/V) ondansetron 2020-04 Yes 4mg 4 mg, Slow Univers (ZOFRAN 2-06 IV Push, ity of (PF)) 15:26: Q6HPRN, [place] injection 4 25 Starting Medi jaspal mg on [facility] 03/16/21 at 0926, Until Discontinu ed, Routine, Nausea and Vomiting (N/V) clopidogreL 2020-04 No 75mg 75 mg, Uni vers (PLAVIX) 05-1715 Oral, ity of tablet 75 15:00: 21:57 DAILY, [place] mg 00 :56 First dose Medical on [facility] 03/16/21 at 0900, Until Discontinu ed, Routine aspirin 2020-04 No 81mg 81 mg, Univers chewable 05-1713 Oral, ity of tablet 81 15:00: 21:11 DAILY, [place] mg 00 :06 First dose Medical on [facility] 03/16/21 at 0900, Until Discontinu ed, Routine magnesium 2020-04 No 400mg 400 mg, Uni vers oxide 05-17-08 Oral, ity of (MAG-OX 15:00: 14:45 DAILY, [place] 400) tablet 00 :27 First dose Me dical 400 mg on [facility] 03/16/21 at 0900, Until Discontinu ed, Routine docusate 2020-04 No 100mg 100 mg, Univ ers (COLACE) 05-17-14 Oral, BID, ity of capsule 100 14:00: 04:23 First dose [place] mg 00 :18 on [facility] 03/16/21 at Branch 0800, Until Discontinu ed, Routine polyethylen 2020-04 No 17g 17 g, Univ ers e glycol 05-17 Oral, ity of 3350 powder 10:30: 11:12 ONCE, 1 [place] 17 g 00 :00 dose, On Medical [facility] Branch 03/16/21 at 0445, Routine cefTRIAXone 2020-04- No 1000mg 1,000 mg, Univers (ROCEPHIN) 05-17 IV ity of 1,000 mg in 07:30: 19:34 Piggyback, [place] NaCl 0.9% 00 :09 Q24H ABX, Medic al (NS) 50 mL First dose [place] pending sale to [facility] MINI-BAG on [facility] 03/16/21 at 0130, Until Discontinu ed, Administer over 30 Minutes, 50 mL
Reas on for Anti-Infec tive: Empiric Therapy for Suspected Infection< br>Empiric Therapy Site: Blood
D uration of therapy: 7 days NaCl 0.9% 2020-04 IV Univers (NS) 1000 05-17 Infusion, ity of mL + KCL 20 06:15: 15:32 at 50 [place] mEq 00 :30 mL/hr, [facility] Branch , Starting on [facility] 03/16/21 at 0015, Until [place] 03/29/21 at 0932, Routine iohexol 2020-04- No [id number] 120mL 120 mL, Univers (OMNIPAQUE 05-17 Intravenou it y of 350 04:45: 04:19 s, ONCE, 1 [place] BULK-100 00 :00 dose, On [facility]) [facility] injection 03/15/21 at 120 mL 2245, Routine atorvastati 2020-04- No 40mg 40 mg, Uni vers n (LIPITOR) 05-1713 Oral, QHS, i ty of tablet 40 03:00: 21:11 First dose [place] mg 00 :06 on [facility] 03/15/21 at Branch 2100, Until Discontinu ed, Routine tamsulosin 2020-04- No .4mg 0.4 mg, Uni vers (FLOMAX) 05-17-15 Oral, BID, ity of capsule 0.4 02:45: 21:57 First dose [place] mg 00 :56 on [facility] 03/15/21 at Branch 2045, Until Discontinu ed, Routine enoxaparin 2020-04- No 30mg 30 mg, Univ ers (LOVENOX) 05-16 Subcutaneo ity of injection 23:00: 22:00 us, DAILY, [place] 30 mg 00 :14 First dose Medical on [place] Branch 03/15/21 at 1700, Until Discontinu ed, Routine carvediloL 2020-04 No 25mg 25 mg, Univ ers (COREG) 05-16 Oral, BID ity of tablet 25 23:00: 21:11 MEALS, [place] mg 00 :05 First dose Medical on [place] Branch 03/15/21 at 1700, Until Discontinu ed, [...] 00 :00 dose, On Medica l effervescen [place] Branch t tablet 40 03/15/21 at mEq 1445, Routine magnesium 2020-04- No 2g 2 g, IV Univ ers sulfate in 05-16 Piggyback, it y of water 2 20:00: 19:13 ONCE, 1 [place] gram/50 mL 00 :00 dose, On Medic al (4 %) [place] Branch infusion 2 03/15/21 at g 1400, [...] mouth. ity o f tablet 16:26: [address] metformin 2020-04 Yes 750mg Take 750 Uni vers ER 750 mg 2-05 mg by ity of 24 hr 16:26: mouth. [address] Branch clopidogreL 2020-04 Yes 75mg Take 75 mg Univers 75 mg 2-05 by mouth. ity of tablet 16:26: [address] amLODIPine 2020-04 Yes 10mg Take 10 mg U nivers 10 mg 2-05 by mouth. ity of tablet 16:26: [address] ascorbic 2020-04 Yes 500mg Take 500 Univ ers acid, 2-05 mg by ity of vitamin C, 16:26: mouth. [place] [address] [place] [address] Branch cholecalcif 2020-04 Yes 5000U Take 5,000 Univers boy, 2-05 Units by ity of vitamin D3, 16:26: mouth. [place] 25 mcg Medical (1,000 Branch unit) tablet chlorthalid 2020-04 Yes 25mg Take 25 mg Univers one 25 mg 2-05 by mouth. ity o f tablet 16:26: [address] metformin 2020-04 Yes 750mg Take 750 Uni vers ER 750 mg 2-05 mg by ity of 24 hr 16:26: mouth. [address] clopidogreL 2020-04 Yes 75mg Take 75 mg Univers 75 mg 2-05 by mouth. ity of tablet 16:26: [address] aspirin-dip 2020-04- No [id number] 1{capsu Take 1 Univers yridamole 05-02 [id number] le} capsule by i ty of 25-200 mg 00:00: 00:00 mouth 2 [place] per 12 hr 00 :00 (two) Medical capsule times [place] daily for 30 days. aspirin-dip 2020-04- Yes [id number] 1{capsu Take 1 Univers yridamole 05-02 [id number] le} capsule by i ty of 25-200 mg 00:00: 05:59 mouth 2 [place] per 12 hr 00 :00 (two) Medical capsule times [place] daily for 30 days. aspirin-dip 2020-04- Yes [id number] 1{capsu Take 1 Univers yridamole 05-02 [id number] le} capsule by i ty of 25-200 mg 00:00: 05:59 mouth 2 [place] per 12 hr 00 :00 (two) Medical capsule times Branch daily for 30 days. atorvastati 2020-04 Yes [id number] 40mg Take 1 Univers n 40 mg 04-12 tablet by ity of tablet 00:00: mouth at [place] [id number] bedtime. Medical Branch atorvastati 2020-04 Yes [id number] 40mg Take 1 Univers n 40 mg 02 tablet by ity of tablet 00:00: mouth at [place] 00 bedtime. Medical Branch atorvastati 2020-04- No [id number] 40mg Take 1 Univers n 40 mg 04-12 tablet by ity of tablet 00:00: 00:00 mouth at [place] 00 :00 bedtime. [facility] Vital Signs Vital Name Observation Time Observation Value Comments Source Systolic blood 2021-04-07 20:55:00 143 mm[Hg] [facility] Diastolic blood 2021-04-07 20:55:00 71 mm[Hg] Unive rsity [facility] Heart rate 2021-04-07 20:55:00 83 /min [facility] Body temperature 2021-04-07 20:55:00 36 Marlee [facility] Respiratory rate 2021-04-07 20:55:00 18 /min [facility] Oxygen saturation in 2021-04-07 20:55:00 98 /min [facility] Arterial blood by [facility] Pulse oximetry [place] Body height 2021-03-30 14:05:00 177.8 cm [facility] Body weight 2021-03-30 14:05:00 72.122 kg [facility] BMI 2021-03-30 14:05:00 22.81 kg/m2 [facility] Systolic blood 2021-03-30 14:05:00 114 mm[Hg] [facility] Diastolic blood 2021-03-30 14:05:00 78 mm[Hg] Unive rsity [facility] Heart rate 2021-03-30 14:05:00 84 /min [facility] Body temperature 2021-03-30 14:05:00 36.22 Marlee [facility] Respiratory rate 2021-03-30 14:05:00 12 /min [facility] Body height 2021-03-30 14:05:00 177.8 cm [facility] Body weight 2021-03-30 14:05:00 72.122 kg [facility] BMI 2021-03-30 14:05:00 22.81 kg/m2 [facility] Oxygen saturation in 2021-03-30 14:05:00 100 /min University of Arterial blood by [facility] Pulse oximetry Branch Height 2021-01-07 12:08:00 177.8 CM Weight 2021-01-07 12:08:00 80.8 KG Systolic blood 2021-03-29 17:57:00 119 mm[Hg] Univer sity of pressure [facility] Diastolic blood 2021-03-29 17:57:00 57 mm[Hg] Unive rsity of pressure [facility] Heart rate 2021-03-29 17:57:00 87 /min [facility] Body temperature 2021-03-29 17:57:00 36.67 Marlee [facility] Respiratory rate 2021-03-29 17:57:00 16 /min [facility] [place] Oxygen saturation in 2021-03-29 17:57:00 96 /min University of Arterial blood by [facility] Pulse oximetry Branch Body weight 2021-03-20 09:51:00 72.485 kg [facility] BMI 2021-03-20 09:51:00 22.93 kg/m2 [facility] Body height 2021-03-15 21:31:00 177.8 cm [facility] Pulse Rate 2021-01-07 12:08:00 78 /min [facility] (LUF/SOUTH/SA) Respiratory Rate 2021-01-07 12:08:00 18 /min [facility] ([facility]) O2% BldC Oximetry 2021-01-07 12:08:00 96 % [facility] (LUF/SOUTH/SA) BP Systolic 2021-01-07 12:08:00 151 mm[Hg] [facility] (LUF/SOUTH/SA) BP Diastolic 2021-01-07 12:08:00 84 mm[Hg] [facility] (LUF/SOUTH/SA) Height 2021-01-07 12:08:00 70 [in_i] [facility] (F/SOUTH/SA) Weight 2021-01-07 12:08:[address] [facility] (LUF/SOUTH/SA) BMI (Body Mass 2021-01-07 12:08:00 25.7 kg/m2 [facility] (F/SOUTH/SA) Body Temperature 2021-01-07 12:08:00 97.4 [degF] [facility] (F/SOUTH/SA) Procedures Procedure Date / Time Performing Source Performed Clinician POCT GLUCOSE (AUTOMATED) 2021-04-07 Andres Concepcionun Univers ity of 17:17:00 [facility] COVID-19 (ID NOW RAPID TESTING) 2021-04-07 Anisa Caruso [place] of 17:11:00 [facility] LAB ONLY COVID INTERPRETATION 2021-04-07 Anisa Caruso iversity of 17:11:00 [facility] POCT GLUCOSE (AUTOMATED) 2021-04-07 Andres Concepcionun Univers ity of 13:14:00 [facility] POCT GLUCOSE (AUTOMATED) 2021-04-06 Andres Concepcionun Univers ity of 22:47:00 [facility] POCT GLUCOSE (AUTOMATED) 2021-04-06 Michael Marcel Univers ity of 16:55:00 [facility] POCT GLUCOSE (AUTOMATED) 2021-04-06 Andres Concepcionun Univers ity of 14:05:00 [facility] BASIC METABOLIC PANEL (NA, K, CL, 2021-04-06 Rob Bates [facility] of CO2, GLUCOSE, BUN, CREATININE, 10:54:00 [facility] CBC WITH DIFF 2021-04-06 Edwin Bates [facility]ATED) 2021-04-05 Michael, Marcel Univers ity of 21:39:00 [facility] POCT GLUCOSE (AUTOMATED) 2021-04-05 Michael, Marcel Univers ity of 18:09:00 [facility] POCT GLUCOSE (AUTOMATED) 2021-04-05 Michael, Marcel Univers ity of 14:03:00 [facility] POCT GLUCOSE (AUTOMATED) 2021-04-04 Michael, Marcel Univers ity of 21:40:00 [facility] POCT GLUCOSE (AUTOMATED) 2021-04-04 Michael, Marcel Univers ity of 18:07:00 [facility] POCT GLUCOSE (AUTOMATED) 2021-04-04 Michael, Marcel Univers ity of 14:07:00 [facility] POCT GLUCOSE (AUTOMATED) 2021-04-04 Michael, Marcel Univers ity of 01:40:00 [facility] POCT GLUCOSE (AUTOMATED) 2021-04-03 Michael, Marcel Univers ity of 22:51:00 [facility] CBC WITH DIFF 2021-04-03 [facility] 21:10:00 [facility] POCT GLUCOSE (AUTOMATED) 2021-04-03 Michael, Marcel Univers ity of 18:46:00 [facility] POCT GLUCOSE (AUTOMATED) 2021-04-03 Michael, Marcel Univers ity of 13:31:00 [facility] POCT GLUCOSE (AUTOMATED) 2021-04-02 Michael, Marcel Univers ity of 23:29:00 [facility] BASIC METABOLIC PANEL (NA, K, CL, 2021-04-02 Beba, [facility] of CO2, GLUCOSE, BUN, CREATININE, 23:10:00 [facility]) Branch CBC WITH DIFF 2021-04-02 Beba, [facility] of 23:10:00 [facility] POCT GLUCOSE (AUTOMATED) 2021-04-02 Michael, Marcel Univers ity of 19:11:00 [facility] DUPLEX VENOUS LEGS BILATERAL - BY 2021-04-02 Carlos Yoder [facility] of VASCULAR LAB 15:31:56 [facility] POCT GLUCOSE (AUTOMATED) 2021-04-02 Andres Concepcionun Univers ity of 13:39:00 [facility] POCT GLUCOSE (AUTOMATED) 2021-04-01 MichaelAndres rubioun Univers ity of 21:27:00 [facility] POCT GLUCOSE (AUTOMATED) 2021-04-01 Michael, Marcel Univers ity of 17:04:00 [facility] POCT GLUCOSE (AUTOMATED) 2021-04-01 MichaelAndresun Univers ity of 13:35:00 [facility] MAGNESIUM 2021-04-01 [facility] of 10:40:00 [facility] BASIC METABOLIC PANEL (NA, K, CL, 2021-04-01 [facility] of CO2, GLUCOSE, BUN, CREATININE, 10:40:00 [facility]) Branch CBC WITH DIFF 2021-04-01 [facility] 10:40:00 [facility] POCT GLUCOSE (AUTOMATED) 2021-03-31 Michael, Marcel Univers ity of 21:12:00 [facility] POCT GLUCOSE (AUTOMATED) 2021-03-31 MichaelAndresun Univers ity of 17:06:00 [facility] POCT GLUCOSE (AUTOMATED) 2021-03-31 MichaelAndresun Univers ity of 17:06:00 [facility] IR SPINAL LUMBAR PUNCTURE 2021-03-31 Fortino Yoder Uni versity of DIAGNOSTIC 16:50:00 [facility] IR SPINAL LUMBAR PUNCTURE 2021-03-31 Fortino Yoder Uni versity of DIAGNOSTIC 16:50:00 [facility] MISCELLANEOUS SEND OUT TEST 2021-03-31 Fortino Yoder U niversity of 16:38:00 [facility] CYTO SPINAL FLUID 2021-03-31 [facility] 16:33:00 [facility] CEREBROSPINAL FLUID PROTEIN 2021-03-31 Fortino Yoder U niversity of 16:31:00 [facility] CEREBROSPINAL FLUID GLUCOSE 2021-03-31 Fortino Yoder U niversity of 16:31:00 [facility] LACTIC ACID CSF 2021-03-31 Beba, [facility] of 16:31:00 [facility] LDH CSF 2021-03-31 Beba, [facility] of 16:31:00 [facility] BODY FLUID DIRECT COUNT 2021-03-31 [facility] of 16:31:00 [facility] EXTRA TUBE CSF 2021-03-31 [facility] of 16:31:00 [facility] CSF CULTURE 2021-03-31 [facility] of 16:31:00 [facility] MENINGITIS/ENCEPHALITIS PANEL BY 2021-03-31 Beba, [facility] of PCR 16:31:00 [facility] CEREBROSPINAL FLUID PROTEIN 2021-03-31 Fortino Yoder U niversity of 16:31:00 [facility] CEREBROSPINAL FLUID GLUCOSE 2021-03-31 [facility] 16:31:00 [facility] LACTIC ACID CSF 2021-03-31 [facility] of 16:31:00 [facility] LDH CSF 2021-03-31 [facility] of 16:31:00 [facility] BODY FLUID DIRECT COUNT 2021-03-31 [facility] of 16:31:00 [facility] AFB CULTURE 2021-03-31 [facility] of 16:31:00 [facility] CSF/RESERVOIR CARETAKER SHUNT CULTURE 2021-03-31 [facility] of 16:31:00 [facility] MISCELLANEOUS SEND OUT TEST 2021-03-31 Marcel Concepcion [facility] ersity of 16:31:00 [facility] ANGIOTENSIN CONVERT ENZ, CSF 2021-03-31 [facility] of 16:31:00 [facility] WEST NILE VIRUS AB PANEL 2021-03-31 [facility]eba, [facility] of 16:31:00 [facility] O-OPLWPL-V-ASPARTATE RECEPTOR AB, 2021-03-31 [facility] [place] of CSF 16:31:00 [facility] EXTRA TUBE CSF 2021-03-31 [facility] of 16:31:00 [facility] CSF CULTURE 2021-03-31 Beba [facility] of 16:31:00 [facility] MENINGITIS/ENCEPHALITIS PANEL BY 2021-03-31 [facility] of PCR 16:31:00 [facility] POCT GLUCOSE (AUTOMATED) 2021-03-[address] [facility] ity of 13:29:00 [facility] POCT GLUCOSE (AUTOMATED) 2021-03-31 [facility] ity of 13:29:00 [facility] MAGNESIUM 2021-03-31 Beba, [facility] of 10:00:00 [facility] BASIC METABOLIC PANEL (NA, K, CL, 2021-03-31 [facility], [facility] CO2, GLUCOSE, BUN, CREATININE, 10:00:00 [facility]) Branch CBC WITH DIFF 2021-03-31 [facility], [facility] 10:00:00 [facility] MAGNESIUM 2021-03-31 Beba [facility] of 10:00:00 [facility] BASIC METABOLIC PANEL (NA, K, CL, 2021-03-31 [facility] of CO2, GLUCOSE, BUN, CREATININE, 10:00:00 [facility]) Branch CBC WITH DIFF 2021-03-31 Beba, [facility] of 10:00:00 [facility] MISCELLANEOUS SEND OUT TEST 2021-03-31 Fortino Yoder U niversity of 10:00:00 [facility] POCT GLUCOSE (AUTOMATED) 2021-03-[address] [facility] ity of 22:17:00 [facility] POCT GLUCOSE (AUTOMATED) 2021-03-30 [facility] ity of 22:17:00 [facility] EGD (ENDO) 2021-03-30 [facility] of 16:35:27 [facility] EGD (ENDO) 2021-03-30 [facility] of 16:35:27 [facility] ESOPHAGOGASTRODUODENOSCOPY 2021-03-[address] Uni versity of 16:30:00 [facility] PERCUTANEOUS ENDOSCOPIC GASTRIC 2021-03-30 NithyaGifty granadosflor[place] [facility] of TUBE PLACEMENT 16:30:00 [facility] ESOPHAGOGASTRODUODENOSCOPY 2021-03-30 NithyaGifty granadoseram [facility] versity of 16:30:00 [facility] PERCUTANEOUS ENDOSCOPIC GASTRIC 2021-03-30 NithyaMasood granados [facility] of TUBE PLACEMENT 16:30:00 [facility] POCT GLUCOSE (AUTOMATED) 2021-03-30 Michael, Marcel Univers ity of 13:53:00 [facility] POCT GLUCOSE (AUTOMATED) 2021-03-30 Michael, Marcel Univers ity of 13:53:00 [facility] MAGNESIUM 2021-03-30 [facility] of 10:47:00 [facility] BASIC METABOLIC PANEL (NA, K, CL, 2021-03-30 [facility] of CO2, GLUCOSE, BUN, CREATININE, 10:47:00 [facility]) Branch CBC WITH DIFF 2021-03-30 [facility] of 10:47:00 [facility] MAGNESIUM 2021-03-30 [facility] of 10:47:00 [facility] BASIC METABOLIC PANEL (NA, K, CL, 2021-03-30 [facility] of CO2, GLUCOSE, BUN, CREATININE, 10:47:00 [facility]) Branch CBC WITH DIFF 2021-03-30 [facility] of 10:47:00 [facility] POCT GLUCOSE (AUTOMATED) 2021-03-29 MichaelMarcel rubio [facility] ity of 22:19:00 [facility] POCT GLUCOSE (AUTOMATED) 2021-03-29 [facility] ity of 22:19:00 [facility] COVID-19 (ID NOW RAPID TESTING) 2021-03-29 Russ Titus [place] of 22:03:00 [facility] LAB ONLY COVID INTERPRETATION 2021-03-29 Russ Titus iversity of 22:03:00 [facility] COVID-19 (ID NOW RAPID TESTING) 2021-03-29 Russ Titus [place] of 22:03:00 [facility] LAB ONLY COVID INTERPRETATION 2021-03-29 ArielaRuss Un iversity of 22:03:00 [facility] HEPARIN ANTI-XA, LOW MOLECULAR 2021-03-29 [facility] University of WEIGHT HEPARIN 19:01:00 [facility] HEPARIN ANTI-XA, LOW MOLECULAR 2021-03-29 [facility] University of WEIGHT HEPARIN 19:01:00 [facility] CBC WITHOUT DIFF 2021-03-29 [facility] f 18:31:00 [facility] CBC WITHOUT DIFF 2021-03-29 [facility] f 18:31:00 [facility] POCT GLUCOSE (AUTOMATED) 2021-03-29 Andres Concepcionun Univers ity of 18:07:00 [facility] POCT GLUCOSE (AUTOMATED) 2021-03-29 Andres Concepcionun Univers ity of 18:07:00 [facility] TRANSFUSE PACKED RBC 2021-03-29 [facility] 16:01:00 [facility] TRANSFUSE PACKED RBC 2021-03-29 [facility] ty of 16:01:00 [facility] TRANSFUSE PACKED RBC 2021-03-29 [facility] ty of 16:01:00 [facility] PREPARE PACKED RBC 2021-03-29 [facility] of 15:56:11 [facility] PREPARE PACKED RBC 2021-03-29 [facility] of 15:56:11 [facility] PREPARE PACKED RBC 2021-03-29 [facility] of 15:56:11 [facility] POCT GLUCOSE (AUTOMATED) 2021-03-29 MichaelAndres rubioun Univers ity of 13:23:00 [facility] POCT GLUCOSE (AUTOMATED) 2021-03-29 Andres Concepcionun Univers ity of 13:23:00 [facility] POCT GLUCOSE (AUTOMATED) 2021-03-29 Andres Concepcionun Univers ity of 13:23:00 [facility] MAGNESIUM 2021-03-29 [facility] of 11:50:00 [facility] BASIC METABOLIC PANEL (NA, K, CL, 2021-03-29 [facility] of CO2, GLUCOSE, BUN, CREATININE, 11:50:00 [facility]) Branch CBC WITH DIFF 2021-03-29 [facility] 11:50:00 [facility] MAGNESIUM 2021-03-29 [facility] of 11:50:00 [facility] BASIC METABOLIC PANEL (NA, K, CL, 2021-03-29 [facility] of CO2, GLUCOSE, BUN, CREATININE, 11:50:00 T [facility]) Branch CBC WITH DIFF 2021-03-29 [facility] of 11:50:00 [facility] CBC WITH DIFF 2021-03-29 [facility] of 11:50:00 [facility] BASIC METABOLIC PANEL (NA, K, CL, 2021-03-29 [facility] of CO2, GLUCOSE, BUN, CREATININE, 11:50:00 [facility]) Branch MAGNESIUM 2021-03-29 [facility] of 11:50:00 [facility] CBC WITHOUT DIFF 2021-03-28 [facility] f 23:01:00 [facility] CBC WITHOUT DIFF 2021-03-28 [facility] f 23:01:00 [facility] MISCELLANEOUS SEND OUT TEST 2021-03-28 Fortino Yoder U niversity of 23:01:00 [facility] CBC WITHOUT DIFF 2021-03-28 [facility] f 23:01:00 [facility] POCT GLUCOSE (AUTOMATED) 2021-03-28 Marcel Concepcion Univers ity of 22:16:00 [facility] POCT GLUCOSE (AUTOMATED) 2021-03-28 Marcel Concepcion Univers ity of 22:16:00 [facility] POCT GLUCOSE (AUTOMATED) 2021-03-28 Marcel Concepcion Univers ity of 22:16:00 [facility] MISCELLANEOUS SEND OUT TEST 2021-03-28 Davey Yoderkhnida U niversity of 17:51:00 [facility] POCT GLUCOSE (AUTOMATED) 2021-03-28 Michael, Marcel Univers ity of 17:06:00 [facility] POCT GLUCOSE (AUTOMATED) 2021-03-28 Michael, Marcel Univers ity of 17:06:00 [facility] POCT GLUCOSE (AUTOMATED) 2021-03-28 Michael, Marcel Univers ity of 17:06:00 [facility] POCT GLUCOSE (AUTOMATED) 2021-03-28 Michael, Marcel Univers ity of 13:11:00 [facility] POCT GLUCOSE (AUTOMATED) 2021-03-28 Michael, Marcel Univers ity of 13:11:00 [facility] POCT GLUCOSE (AUTOMATED) 2021-03-28 Michael, Marcel Univers ity of 13:11:00 [facility] BASIC METABOLIC PANEL (NA, K, CL, 2021-03-28 [facility], GLUCOSE, BUN, CREATININE, 10:56:00 [facility] [place]) Branch BASIC METABOLIC PANEL (NA, K, CL, 2021-03-28 [facility] CO2, GLUCOSE, BUN, CREATININE, 10:56:00 [facility] [place]) Branch BASIC METABOLIC PANEL (NA, K, CL, 2021-03-28 [facility] CO2, GLUCOSE, BUN, CREATININE, 10:56:00 [facility] [place]) Branch CBC WITHOUT DIFF 2021-03-28 [facility] of 10:46:00 [facility] PROTHROMBIN TIME / INR 2021-03-28 Mitchell [facility]ana [facility] of 10:46:00 [facility] ACTIVATED PARTIAL THRMPLAS LASHONDA 2021-03-28 Orlando Mitchell [facility] of 10:46:00 [facility] CBC WITHOUT DIFF 2021-03-28 [facility] of 10:46:00 [facility] PROTHROMBIN TIME / INR 2021-03-28 Mitchell [facility]ana [facility] of 10:46:00 [facility] ACTIVATED PARTIAL THRMPLAS LASHONDA 2021-03-28 [facility] of 10:46:00 [facility] CBC WITHOUT DIFF 2021-03-28 [facility] of 10:46:00 [facility] PROTHROMBIN TIME / INR 2021-03-28 Mitchell Yana [facility] rsity of 10:46:00 [facility] ACTIVATED PARTIAL THRMPLAS LASHONDA 2021-03-28 [facility] 10:46:00 [facility] PREPARE PACKED RBC 2021-03-28 Mitchell [facility] y of 04:56:39 [facility] PREPARE PACKED RBC 2021-03-28 var[facility] of 04:56:39 [facility] PREPARE PACKED RBC 2021-03-28 [facility] of 04:56:39 [facility] CBC WITHOUT DIFF 2021-03-28 [facility] 03:36:00 [facility] CBC WITHOUT DIFF 2021-03-28 [facility] of 03:36:00 [facility] CBC WITHOUT DIFF 2021-03-28 [facility] 03:36:00 [facility] XR CHEST 1 VW 2021-03-28 [facility] o f 03:25:41 [facility] XR CHEST 1 VW 2021-03-28 [facility] o f 03:25:41 [facility] XR CHEST 1 VW 2021-03-28 [facility] o f 03:25:41 [facility] BLOOD CULTURE SCREEN 2021-03-27 Beba Pankhuri Universi ty of 22:41:00 [facility] BLOOD CULTURE SCREEN 2021-03-27 Beba, Pankhuri Universi ty of 22:41:00 [facility] BLOOD CULTURE SCREEN 2021-03-27 Beba, Pankhuri Universi ty of 22:41:00 [facility] BLOOD CULTURE SCREEN 2021-03-27 Beba Pankhuri Universi ty of 22:29:00 [facility] BLOOD CULTURE SCREEN 2021-03-27 Beba Pankhuri Universi ty of 22:29:00 [facility] BLOOD CULTURE SCREEN 2021-03-27 Beba Pankhuri Universi ty of 22:29:00 [facility] URINALYSIS 2021-03-27 [facility] of 22:11:00 [facility] URINE CULTURE 2021-03-27 [facility] of 22:11:00 [facility] URINALYSIS 2021-03-27 [facility] of 22:11:00 [facility] URINE CULTURE 2021-03-27 [facility] of 22:11:00 [facility] URINALYSIS 2021-03-27 [facility] of 22:11:00 [facility] URINE CULTURE 2021-03-27 [facility] of 22:11:00 [facility] POCT GLUCOSE (AUTOMATED) 2021-03-27 Michael, [place] [facility] ity of 22:10:00 [facility] POCT GLUCOSE (AUTOMATED) 2021-03-[address] [facility] ity of 22:10:00 [facility] POCT GLUCOSE (AUTOMATED) 2021-03-[address] [facility] ity of 22:10:00 [facility] CBC WITHOUT DIFF 2021-03-27 [facility], [facility] 21:20:00 [facility] CBC WITHOUT DIFF 2021-03-27 [facility], [facility] 21:20:00 [facility] CBC WITHOUT DIFF 2021-03-[facility] 21:20:00 [facility] INTUBATION 2021-03-27 Martina Fowler [place] of 18:51:00 [facility] ABORH CONFIRMATION (LAB ONLY) 2021-03-27 Kimberly Tidwellhyrob Driver [facility] of 16:15:00 [facility] ABORH CONFIRMATION (LAB ONLY) 2021-03-27 Yaw [facility] of 16:15:00 [facility] ABORH CONFIRMATION (LAB ONLY) 2021-03-27 Yaw [facility] of 16:15:00 [facility] HB ABO GROUPING 2021-03-27 [facility] o f 16:00:00 [facility] HB ABO GROUPING 2021-03-27 [facility] o f 16:00:00 [facility] HB ABO GROUPING 2021-03-27 Yaw [facility] o f 16:00:00 [facility] XR CHEST 1 VW 2021-03-27 [facility] of 14:20:00 [facility] XR CHEST 1 VW 2021-03-27 [facility] of 14:20:00 [facility] XR CHEST 1 VW 2021-03-27 [facility] 14:20[facility]00 [facility] POCT GLUCOSE (AUTOMATED) 2021-03-27 Michael, Marcel [facility] of 14:03:00 [facility] POCT GLUCOSE (AUTOMATED) 2021-03-27 Michael, Marcel [facility] of 14:03:00 [facility] POCT GLUCOSE (AUTOMATED) 2021-03-27 Michael, [place] [facility] ity of 14:03:00 [facility] DIFF CONSULT INTERPRETATION 2021-03-27 Fortino Yoder [facility] of 10:18:00 [facility] CBC WITH DIFF 2021-03-27 [facility]eba[facility] 10:18:00 [facility] DIFF CONSULT INTERPRETATION 2021-03-27 Fortino Yoder [facility] of 10:18:00 [facility] CBC WITH DIFF 2021-03-27 [facility] 10:18:00 [facility] CBC WITH DIFF 2021-03-27 Davey Yodernida [place] of 10:18:00 [facility] DIFF CONSULT INTERPRETATION 2021-03-27 Fortino Yoder U [facility]iversity of 10:18:00 [facility] PROTHROMBIN TIME / INR 2021-03-27 Fortino Yoder Univer sity of 09:47:00 [facility] PROTHROMBIN TIME / INR 2021-03-27 Fortino Yoder Univer sity of 09:47:00 [facility] PROTHROMBIN TIME / INR 2021-03-27 Fortino Yoder Univer sity of 09:47:00 [facility] ANTI-SSA(RO) 2021-03-26 [facility] 23:24:00 [facility] GALV ONLY - SYPHILIS IGG/IGM 2021-03-26 [facility] 23:24:00 [facility] ANTI-SSA(RO) 2021-03-26 [facility] of 23:24:00 [facility] GALV ONLY - SYPHILIS IGG/IGM 2021-03-26 [facility] of 23:24:00 [facility] GALV ONLY - SYPHILIS IGG/IGM 2021-03-26 [facility] of 23:24:00 [facility] HAPTOGLOBIN, SERUM 2021-03-26 [facility] of 23:23:00 [facility] ANTI-NUCLEAR ANTIBODY SCREEN 2021-03-26 [facility] of 23:23:00 [facility] HAPTOGLOBIN, SERUM 2021-03-26 [facility] of 23:23:00 [facility] ANTI-NUCLEAR ANTIBODY SCREEN 2021-03-26 [facility] of 23:23:00 [facility] ANTI-NUCLEAR ANTIBODY-PATHOLOGIST 2021-03-26 [facility] of INTERPRETATION 23:23:00 [facility] ANTI-NUCLEAR ANTIBODY SCREEN 2021-03-26 [facility] of 23:23:00 [facility] HAPTOGLOBIN, SERUM 2021-03-26 [facility] of 23:23:00 [facility] POCT GLUCOSE (AUTOMATED) 2021-03-26 Andres Concepcionun Univers ity of 22:33:00 [facility] POCT GLUCOSE (AUTOMATED) 2021-03-26 Michael, Marcel [facility] ity of 22:33:00 [facility] POCT GLUCOSE (AUTOMATED) 2021-03-26 Michael, Marcel [facility] ity of 22:33:00 [facility] FECAL IMMUNOCHEMICAL TEST 2021-03-26 Fortino Yoder Uni versity of 21:47:00 [facility] FECAL IMMUNOCHEMICAL TEST 2021-03-26 Fortino Yoder Uni versity of 21:47:00 [facility] FECAL IMMUNOCHEMICAL TEST 2021-03-26 Fortino Yoder Uni versity of 21:47:00 [facility] LACTATE DEHYDROGENASE 2021-03-26 Beba [facility] Univers ity of 20:00:00 [facility] HEPATIC FUNCTION PANEL (86444) 2021-03-26 [facility] (ALB,T.PRO,BILI 20:00:00 [facility] T,BU/BC,ALT,AST,ALK PHOS) Branch LACTATE DEHYDROGENASE 2021-03-26 [facility] Univers ity of 20:00:00 [facility] HEPATIC FUNCTION PANEL ([id number]) 2021-03-26 [facility] of (ALB,T.PRO,BILI 20:00:00 [facility] T,BU/BC,ALT,AST,ALK PHOS) Branch LACTATE DEHYDROGENASE 2021-03-26 [facility] Univers ity of 20:00:00 [facility] HEPATIC FUNCTION PANEL ([id number]) 2021-03-26 [facility] of (ALB,T.PRO,BILI 20:00:00 [facility] T,BU/BC,ALT,AST,ALK PHOS) Branch POCT GLUCOSE (AUTOMATED) 2021-03-26 Michael, Marcel [facility] ity of 18:16:00 [facility] POCT GLUCOSE (AUTOMATED) 2021-03-26 Michael, Marcel [facility] ity of 18:16:00 [facility] POCT GLUCOSE (AUTOMATED) 2021-03-26 Michael, Marcel Univers ity of 18:16:00 [facility] POCT GLUCOSE (AUTOMATED) 2021-03-26 Michael, Marcel [facility] ity of 14:51:00 [facility] POCT GLUCOSE (AUTOMATED) 2021-03-26 Michael, Marcel [facility] ity of 14:51:00 [facility] POCT GLUCOSE (AUTOMATED) 2021-03-26 Michael, Marcel Univers ity of 14:51:00 [facility] METHYLMALONIC ACID, SERUM 2021-03-26 Fortino Yoder Uni versity of 12:02:00 [facility] CBC WITHOUT DIFF 2021-03-26 [facility] f 12:02:00 [facility] RETICULOCYTES AUTOMATED 2021-03-26 [facility] 12:02:00 [facility] METHYLMALONIC ACID, SERUM 2021-03-26 [facility] 12:02:00 [facility] CBC WITHOUT DIFF 2021-03-26 [facility] f 12:02:00 [facility] RETICULOCYTES AUTOMATED 2021-03-26 Beba, [facility] rsity of 12:02:00 [facility] CBC WITHOUT DIFF 2021-03-26 [facility] f 12:02:00 [facility] RETICULOCYTES AUTOMATED 2021-03-26 Beba [facility] rsity of 12:02:00 [facility] POCT GLUCOSE (AUTOMATED) 2021-03-25 Michael, Marcel [facility] ity of 22:48:00 [facility] POCT GLUCOSE (AUTOMATED) 2021-03-25 Michael, Marcel [facility] ity of 22:48:00 [facility] POCT GLUCOSE (AUTOMATED) 2021-03-25 Michael, Marcel [facility] ity of 22:48:00 [facility] CBC WITH DIFF 2021-03-25 [facility] of 18:24:00 [facility] D-DIMER 2021-03-25 Elnae, [facility] of 18:24:00 [facility] CBC WITH DIFF 2021-03-25 [facility], [facility] of 18:24:00 [facility] D-DIMER 2021-03-25 Elnae, [facility] of 18:24:00 [facility] D-DIMER 2021-03-25 Elnae, [facility] of 18:24:00 [facility] CBC WITH DIFF 2021-03-25 nae, [facility] of 18:24:00 [facility] POCT GLUCOSE (AUTOMATED) 2021-03-25 Michael, Marcel Univers ity of 18:05:00 [facility] POCT GLUCOSE (AUTOMATED) 2021-03-25 Michael, Marcel Univers ity of 18:05:[address] [facility] Branch POCT GLUCOSE (AUTOMATED) 2021-03-25 Michael, Marcel Univers ity of 18:05:00 [facility] POCT GLUCOSE (AUTOMATED) 2021-03-25 Maritza Fajardo Univers ity of 14:36:00 [facility] POCT GLUCOSE (AUTOMATED) 2021-03-25 Maritza Fajardo Univers ity of 14:36:00 [facility] POCT GLUCOSE (AUTOMATED) 2021-03-25 Maritza Fajardo Univers ity of 14:36:00 [facility] AMMONIA, PLASMA 2021-03-25 [facility] 02:55:00 [facility] AMMONIA, PLASMA 2021-03-25 [facility] of 02:55:00 [facility] AMMONIA, PLASMA 2021-03-25 [facility] of 02:55:00 [facility] MR BRAIN W WO CONTRAST 2021-03-25 [facility] Univer sity of 01:57:57 [facility] MR BRAIN W WO CONTRAST 2021-03-25 Beba, [facility] Univer sity of 01:57:57 [facility] MR BRAIN W WO CONTRAST 2021-03-25 Beba, [facility] Univer sity of 01:57:57 [facility] POCT GLUCOSE (AUTOMATED) 2021-03-24 Maritza Fajardo Univers ity of 21:53:00 [facility] POCT GLUCOSE (AUTOMATED) 2021-03-24 Maritza Fajardo Univers ity of 21:53:00 [facility] POCT GLUCOSE (AUTOMATED) 2021-03-24 Maritza Fajardo Univers ity of 21:53:00 [facility] POCT GLUCOSE (AUTOMATED) 2021-03-24 Maritza Fajardo Univers ity of 17:34:00 [facility] POCT GLUCOSE (AUTOMATED) 2021-03-24 Maritza Fajardo Univers ity of 17:34:00 [facility] POCT GLUCOSE (AUTOMATED) 2021-03-24 Maritza Fajardo Univers ity of 17:34:00 [facility] POCT GLUCOSE (AUTOMATED) 2021-03-24 Maritza Fajardo Univers ity of 13:45:00 [facility] POCT GLUCOSE (AUTOMATED) 2021-03-24 Maritza Fajardo [facility] ity of 13:45:00 [facility] POCT GLUCOSE (AUTOMATED) 2021-03-24 Maritza Fajardo [facility] ity of 13:45:00 [facility] FERRITIN SERUM 2021-03-24 [facility] 10:11:00 [facility] C-REACTIVE PROTEIN 2021-03-24 [facility] 10:11:00 [facility] THYROID STIMULATING HORMONE 2021-03-24 Fortino Yoder [facility] of 10:11:00 [facility] BASIC METABOLIC PANEL (NA, K, CL, 2021-03-24 Jonathan Tom [place] of CO2, GLUCOSE, BUN, CREATININE, 10:11:00 [facility] Branch IRON PANEL 2021-03-24 [facility] 10:11:00 [facility] SEDIMENTATION RATE 2021-03-24 Beba [facility] of 10:11:00 [facility] CBC WITH DIFF 2021-03-24 [facility] 10:11:00 [facility] HIV 1/2 AG-AB WITH REFLEX 2021-03-24 Fortino Yoder Uni versity of 10:11:00 [facility] FERRITIN SERUM 2021-03-24 [facility] 10:11:00 [facility] C-REACTIVE PROTEIN 2021-03-24 [facility] 10:11:00 [facility] THYROID STIMULATING HORMONE 2021-03-24 Fortino Yoder [facility]iversity of 10:11:00 [facility] BASIC METABOLIC PANEL (NA, K, CL, 2021-03-24 Jonathan oTm [place] of CO2, GLUCOSE, BUN, CREATININE, 10:11:00 [facility] IRON PANEL 2021-03-24 [facility] 10:11:00 [facility] SEDIMENTATION RATE 2021-03-24 Fortino Yoder University of 10:11:00 [facility] CBC WITH DIFF 2021-03-24 [facility] 10:11:00 [facility] HIV 1/2 AG-AB WITH REFLEX 2021-03-24 Fortino Yoder Uni versity of 10:11:00 [facility] CBC WITH DIFF 2021-03-24 [facility] 10:11:00 [facility] BASIC METABOLIC PANEL (NA, K, CL, 2021-03-24 [facility] of CO2, GLUCOSE, BUN, CREATININE, 10:11:00 [facility] [place] SEDIMENTATION RATE 2021-03-24 Beba [facility] of 10:11:00 [facility] C-REACTIVE PROTEIN 2021-03-24 Beba [facility] of 10:11:00 [facility] THYROID STIMULATING HORMONE 2021-03-24 Fortino Yoder [facility] niversity of 10:11:00 [facility] IRON PANEL 2021-03-24 Beba [facility] of 10:11:00 [facility] FERRITIN SERUM 2021-03-24 Beba, [facility] of 10:11:00 [facility] HIV 1/2 AG-AB WITH REFLEX 2021-03-24 Fortino Yoder Uni versity of 10:11:00 [facility] POCT GLUCOSE (AUTOMATED) 2021-03-24 Maritza Fajardo Univers ity of 02:23:00 [facility] POCT GLUCOSE (AUTOMATED) 2021-03-24 Maritza Fajardo Univers ity of 02:23:00 [facility] POCT GLUCOSE (AUTOMATED) 2021-03-24 Maritza Fajardo Univers ity of 02:23:00 [facility] XR ABDOMEN 1 VW 2021-03-23 Jonathan Tom [place] of 23:05:26 [facility] XR ABDOMEN 1 VW 2021-03-23 Jonathan Tom [place] of 23:05:26 [facility] XR ABDOMEN 1 VW 2021-03-23 [facility] of 23:05:26 [facility] POCT GLUCOSE (AUTOMATED) 2021-03-23 Maritza Fajardo Univers ity of 23:00:00 [facility] POCT GLUCOSE (AUTOMATED) 2021-03-23 Janel Fajardod Univers ity of 23:00:00 [facility] POCT GLUCOSE (AUTOMATED) 2021-03-23 Janel Fajardod Univers ity of 23:00:00 [facility] POCT GLUCOSE (AUTOMATED) 2021-03-23 Janel Fajardod Univers ity of 17:38:00 [facility] POCT GLUCOSE (AUTOMATED) 2021-03-23 Janel Fajardod Univers ity of 17:38:00 [facility] POCT GLUCOSE (AUTOMATED) 2021-03-23 Maritza Fajardo Univers ity of 17:38:00 [facility] TRANSTHORACIC ECHO (TTE) COMPLETE 2021-03-23 varsha [facility] of W/ CONTRAST 16:40:00 [facility] TRANSTHORACIC ECHO (TTE) COMPLETE 2021-03-23 [facility] W/ CONTRAST 16:40:00 [facility] TRANSTHORACIC ECHO (TTE) COMPLETE 2021-03-23 [facility] of W/ CONTRAST 16:40:00 [facility] POCT GLUCOSE (AUTOMATED) 2021-03-23 Maritza Fajardo Univers ity of 14:16:00 [facility] POCT GLUCOSE (AUTOMATED) 2021-03-23 Maritza Fajardo Univers ity of 14:16:00 [facility] POCT GLUCOSE (AUTOMATED) 2021-03-23 Maritza Fajardo Univers ity of 14:16:00 [facility] POCT GLUCOSE (AUTOMATED) 2021-03-23 Maritza Fajardo Univers ity of 02:07:00 [facility] POCT GLUCOSE (AUTOMATED) 2021-03-23 Maritza Fajardo Univers ity of 02:07:00 [facility] POCT GLUCOSE (AUTOMATED) 2021-03-23 Maritza Fajardo Univers ity of 02:07:00 [facility] ELECTROENCEPHALOGRAM 2021-03-23 Zuly [facility] of 00:00:00 [facility] ELECTROENCEPHALOGRAM 2021-03-23 [facility] 00:[facility]00 [facility] ELECTROENCEPHALOGRAM 2021-03-23 Zuly [facility] of 00:00:00 [facility] POCT GLUCOSE (AUTOMATED) 2021-03-22 Janel Fajardod Univers ity of 22:19:00 [facility] POCT GLUCOSE (AUTOMATED) 2021-03-22 Tana Fajardomad Univers ity of 22:19:00 [facility] POCT GLUCOSE (AUTOMATED) 2021-03-22 Abundio Fajardohammad Univers ity of 22:19:00 [facility] POCT GLUCOSE (AUTOMATED) 2021-03-22 Tana Fajardomad Univers ity of 17:11:00 [facility] POCT GLUCOSE (AUTOMATED) 2021-03-22 Janel Fajardod Univers ity of 17:11:00 [facility] POCT GLUCOSE (AUTOMATED) 2021-03-22 Janel Fajardod Univers ity of 17:11:00 [facility] CT ANGIOGRAM HEAD 2021-03-22 Replaced By [facility] o f 16:28:00 [facility] CT ANGIOGRAM NECK 2021-03-22 Replaced By [facility] o f 16:28:00 [facility] CT ANGIOGRAM HEAD 2021-03-22 Replaced By [facility] o f 16:28:00 [facility] CT ANGIOGRAM NECK 2021-03-22 Replaced By [facility] o f 16:28:00 [facility] CT ANGIOGRAM HEAD 2021-03-22 Replaced By [facility] o f 16:28:00 [facility] CT ANGIOGRAM NECK 2021-03-22 Replaced By [facility] o f 16:28:00 [facility] POCT GLUCOSE (AUTOMATED) 2021-03-22 Maritza Fajardo Univers ity of 13:32:00 [facility] POCT GLUCOSE (AUTOMATED) 2021-03-22 Janel Fajardod Univers ity of 13:32:00 [facility] POCT GLUCOSE (AUTOMATED) 2021-03-22 Maritza Fajardo Univers ity of 13:32:00 [facility] BASIC METABOLIC PANEL (NA, K, CL, 2021-03-22 [facility] of CO2, GLUCOSE, BUN, CREATININE, 09:38:00 [facility] VERIFYNOW ASPIRIN TEST 2021-03-22 [facility] ity of 09:38:00 [facility] BASIC METABOLIC PANEL (NA, K, CL, 2021-03-22 [facility] of CO2, GLUCOSE, BUN, CREATININE, 09:38:00 [facility] VERIFYNOW ASPIRIN TEST 2021-03-22 [facility], [facility] Univers ity of 09:38:00 [facility] VERIFYNOW ASPIRIN TEST 2021-03-22 [facility], [facility], [facility] Univers ity of 09:38:00 [facility] BASIC METABOLIC PANEL (NA, K, CL, 2021-03-22 [facility] of CO2, GLUCOSE, BUN, CREATININE, 09:38:00 [facility] POCT GLUCOSE (AUTOMATED) 2021-03-22 Maritza Fajardo Univers ity of 02:17:00 [facility] POCT GLUCOSE (AUTOMATED) 2021-03-22 Maritza Fajardo Univers ity of 02:17:00 [facility] POCT GLUCOSE (AUTOMATED) 2021-03-22 Maritza Fajardo Univers ity of 02:17:00 [facility] POCT GLUCOSE (AUTOMATED) 2021-03-21 Maritza Fajardo Univers ity of 22:40:00 [facility] POCT GLUCOSE (AUTOMATED) 2021-03-21 Maritza Fajardo Univers ity of 22:40:00 [facility] POCT GLUCOSE (AUTOMATED) 2021-03-21 Maritza Fajardo Univers ity of 22:40:00 [facility] POCT GLUCOSE (AUTOMATED) 2021-03-21 Maritza Fajardo Univers ity of 17:26:00 [facility] POCT GLUCOSE (AUTOMATED) 2021-03-21 Abundio Fajardohammad Univers ity of 17:26:00 [facility] POCT GLUCOSE (AUTOMATED) 2021-03-21 TanaTanaSalas Univers ity of 17:26:00 [facility] POCT GLUCOSE (AUTOMATED) 2021-03-21 Tana Saals Univers ity of 13:30:00 [facility] POCT GLUCOSE (AUTOMATED) 2021-03-21 Tana Fajardomad Univers ity of 13:30:00 [facility] POCT GLUCOSE (AUTOMATED) 2021-03-21 Tana Salas Univers ity of 13:30:00 [facility] BASIC METABOLIC PANEL (NA, K, CL, 2021-03-21 [facility] of CO2, GLUCOSE, BUN, CREATININE, 10:41:00 [facility]) Branch CBC WITH DIFF 2021-03-21 [facility] o f 10:41:00 [facility] BASIC METABOLIC PANEL (NA, K, CL, 2021-03-21 [facility] of CO2, GLUCOSE, BUN, CREATININE, 10:41:00 [facility]) Branch CBC WITH DIFF 2021-03-21 [facility] o f 10:41:00 [facility] BASIC METABOLIC PANEL (NA, K, CL, 2021-03-21 [facility] of CO2, GLUCOSE, BUN, CREATININE, 10:41:00 [facility]) Branch CBC WITH DIFF 2021-03-21 [facility] o f 10:41:00 [facility] POCT GLUCOSE (AUTOMATED) 2021-03-21 Maritza Fajardo Univers ity of 02:03:00 [facility] POCT GLUCOSE (AUTOMATED) 2021-03-21 Janel Fajardod Univers ity of 02:03:00 [facility] POCT GLUCOSE (AUTOMATED) 2021-03-21 Maritza Fajardo Univers ity of 02:03:00 [facility] BLOOD CULTURE SCREEN 2021-03-21 Yana Mitchell Univers ity of 01:44:00 [facility] BLOOD CULTURE SCREEN 2021-03-21 Yana Mitchell Univers ity of 01:44:00 [facility] BLOOD CULTURE SCREEN 2021-03-21 Yana Mitchell Univers ity of 01:44:00 [facility] BLOOD CULTURE SCREEN 2021-03-21 Yana Mitchell Univers ity of 00:38:00 [facility] BLOOD CULTURE SCREEN 2021-03-21 Katty Mitchella Univers ity of 00:38:00 [facility] BLOOD CULTURE SCREEN 2021-03-21 Katty Mitchella Univers ity of 00:38:00 [facility] XR CHEST 1 VW 2021-03-21 [facility] 00:17:00 [facility] XR CHEST 1 VW 2021-03-21 [facility] o f 00:17:00 [facility] XR CHEST 1 VW 2021-03-21 [facility] o f 00:17:00 [facility] URINALYSIS 2021-03-21 [facility] o f 00:16:00 [facility] URINALYSIS 2021-03-21 [facility] o f 00:16:00 [facility] URINALYSIS 2021-03-21 [facility] o f 00:16:00 [facility] POCT GLUCOSE (AUTOMATED) 2021-03-20 Maritza Fajardo Univers ity of 22:04:00 [facility] POCT GLUCOSE (AUTOMATED) 2021-03-20 Maritza Fajardo Univers ity of 22:04:00 [facility] POCT GLUCOSE (AUTOMATED) 2021-03-20 Maritza Fajardo Univers ity of 22:04:00 [facility] POCT GLUCOSE (AUTOMATED) 2021-03-20 Lamine Duran Univers ity of 17:46:00 [facility] POCT GLUCOSE (AUTOMATED) 2021-03-20 Lamine Duran Univers ity of 17:46:00 [facility] POCT GLUCOSE (AUTOMATED) 2021-03-20 Lamine Duran Univers ity of 17:46:00 [facility] POCT GLUCOSE (AUTOMATED) 2021-03-20 Lamine Duran Univers ity of 13:40:00 [facility] POCT GLUCOSE (AUTOMATED) 2021-03-20 Lamine Duran Univers ity of 13:40:00 [facility] POCT GLUCOSE (AUTOMATED) 2021-03-20 Lamine Duran Univers ity of 13:40:00 [facility] BASIC METABOLIC PANEL (NA, K, CL, 2021-03-20 Eduard, [facility] CO2, GLUCOSE, BUN, CREATININE, 10:52:00 [facility] CBC WITH DIFF 2021-03-20 Eduard, Pending [facility] To [facility] of 10:52:00 [facility] BASIC METABOLIC PANEL (NA, K, CL, 2021-03-20 Eduard, [facility] CO2, GLUCOSE, BUN, CREATININE, 10:52:00 [facility] CBC WITH DIFF 2021-03-20 Eduard, Pending [facility] of 10:52:00 [facility] CBC WITH DIFF 2021-03-20 Eduard, Pending [facility] of 10:52:00 [facility] BASIC METABOLIC PANEL (NA, K, CL, 2021-03-20 Eduard, [facility] of CO2, GLUCOSE, BUN, CREATININE, 10:52:00 [facility] POCT GLUCOSE (AUTOMATED) 2021-03-19 Lamine Duran Univers ity of 23:19:00 [facility] POCT GLUCOSE (AUTOMATED) 2021-03-19 Lamine Duran Univers ity of 23:19:00 [facility] POCT GLUCOSE (AUTOMATED) 2021-03-19 Lamine Duran Univers ity of 23:19:00 [facility] POCT GLUCOSE (AUTOMATED) 2021-03-19 Lamine Duran Univers ity of 17:30:00 [facility] POCT GLUCOSE (AUTOMATED) 2021-03-19 Lamine Duran Univers ity of 17:30:00 [facility] POCT GLUCOSE (AUTOMATED) 2021-03-19 Lamine Duran Univers ity of 17:30:00 [facility] POCT GLUCOSE (AUTOMATED) 2021-03-19 Lamine Duran Univers ity of 13:46:00 [facility] POCT GLUCOSE (AUTOMATED) 2021-03-19 Lamine Duran Univers ity of 13:46:00 [facility] POCT GLUCOSE (AUTOMATED) 2021-03-19 Lamine Duran Univers ity of 13:46:00 [facility] BASIC METABOLIC PANEL (NA, K, CL, 2021-03-19 Autumn Chapa [facility] CO2, GLUCOSE, BUN, CREATININE, 09:16:00 [facility] Branch BASIC METABOLIC PANEL (NA, K, CL, 2021-03-19 EduardAutumn tirado [facility] CO2, GLUCOSE, BUN, CREATININE, 09:16:00 [facility] Branch BASIC METABOLIC PANEL (NA, K, CL, 2021-03-19 Autumn Chapa [facility] CO2, GLUCOSE, BUN, CREATININE, 09:16:00 [facility] Branch POCT GLUCOSE (AUTOMATED) 2021-03-18 Lamine Duran Univers ity of 23:19:00 [facility] POCT GLUCOSE (AUTOMATED) 2021-03-18 Lamine Duran Univers ity of 23:19:00 [facility] POCT GLUCOSE (AUTOMATED) 2021-03-18 Lamine Duran Univers ity of 23:19:00 [facility] POCT GLUCOSE (AUTOMATED) 2021-03-18 Lamine Duran Univers ity of 17:40:00 [facility] POCT GLUCOSE (AUTOMATED) 2021-03-18 Lamine Duran Univers ity of 17:40:00 [facility] POCT GLUCOSE (AUTOMATED) 2021-03-18 Lamine Duran Univers ity of 17:40:00 [facility] POCT GLUCOSE (AUTOMATED) 2021-03-18 Lamine Duran [facility] ity of 13:50:00 [facility] POCT GLUCOSE (AUTOMATED) 2021-03-18 Lamine Duran Univers ity of 13:50:00 [facility] POCT GLUCOSE (AUTOMATED) 2021-03-18 Lamine Duran Univers ity of 13:50:00 [facility] MAGNESIUM 2021-03-18 Carline Chapa [place] 09:50:00 [facility] BASIC METABOLIC PANEL (NA, K, CL, 2021-03-18 Autumn Chapa [place] CO2, GLUCOSE, BUN, CREATININE, 09:50:00 [facility] CBC WITH DIFF 2021-03-18 Carline Chapa [place] of 09:50:00 [facility] MAGNESIUM 2021-03-18 [facility] 09:50:00 [facility] BASIC METABOLIC PANEL (NA, K, CL, 2021-03-18 Eduard, Autumn pawel [place] CO2, GLUCOSE, BUN, CREATININE, 09:50:00 [facility] CBC WITH DIFF 2021-03-18 Eduard, Carline [place] of 09:50:00 [facility] CBC WITH DIFF 2021-03-18 Eduard, [facility] of 09:50:00 [facility] BASIC METABOLIC PANEL (NA, K, CL, 2021-03-18 [facility]Marcie [facility] of CO2, GLUCOSE, BUN, CREATININE, 09:50:00 [facility] MAGNESIUM 2021-03-18 EduardCarline tirado [place] of 09:50:00 [facility] POCT GLUCOSE (AUTOMATED) 2021-03-17 Lamine Duran Univers ity of 22:42:00 [facility] POCT GLUCOSE (AUTOMATED) 2021-03-17 Lamine Duran Univers ity of 22:42:00 [facility] POCT GLUCOSE (AUTOMATED) 2021-03-17 Lamine Duran [facility] ity of 22:42:00 [facility] POCT GLUCOSE (AUTOMATED) 2021-03-17 Lamine Duran Univers ity of 17:52:00 [facility] POCT GLUCOSE (AUTOMATED) 2021-03-17 Lamine Duran Univers ity of 17:52:00 [facility] POCT GLUCOSE (AUTOMATED) 2021-03-17 Lamine Duran [facility] ity of 17:52:00 [facility] POCT GLUCOSE (AUTOMATED) 2021-03-17 Lamine Duran Univers ity of 13:41:00 [facility] POCT GLUCOSE (AUTOMATED) 2021-03-17 Lamine Duran [facility] ity of 13:41:00 [facility] POCT GLUCOSE (AUTOMATED) 2021-03-17 Lamine Duran [facility] ity of 13:41:00 [facility] PHOSPHORUS 2021-03-17 Lamine Duran [place] 10:23:00 [facility] MAGNESIUM 2021-03-17 Lamine Duran [place] 10:23:00 [facility] BASIC METABOLIC PANEL (NA, K, CL, 2021-03-17 Barak Duran [place] CO2, GLUCOSE, BUN, CREATININE, 10:23:00 [facility] LIPID PANEL (87688)(TOTAL 2021-03-17 [facility] ersity of CHOLESTEROL, TRIGLYCERIDES, HDL) 10:23:00 [facility] CBC WITH DIFF 2021-03-17 Lamine Duran [place] 10:23:00 [facility] PHOSPHORUS 2021-03-17 Lamine Duran [place] 10:23:00 [facility] MAGNESIUM 2021-03-17 Lamine Duran [place] 10:23:00 [facility] BASIC METABOLIC PANEL (NA, K, CL, 2021-03-17 Barak Duran [place] CO2, GLUCOSE, BUN, CREATININE, 10:23:00 [facility] LIPID PANEL (81080)(TOTAL 2021-03-17 marMike [facility]Nov[facility] ersity of CHOLESTEROL, TRIGLYCERIDES, HDL) 10:23:00 [facility] CBC WITH DIFF 2021-03-17 Lamine Duran [place] 10:23:00 [facility] LIPID PANEL ([id number])(TOTAL 2021-03-17 [facility] ersity of CHOLESTEROL, TRIGLYCERIDES, HDL) 10:23:00 [facility] BASIC METABOLIC PANEL (NA, K, CL, 2021-03-17 Barak Duran [place] CO2, GLUCOSE, BUN, CREATININE, 10:23:00 [facility] CBC WITH DIFF 2021-03-17 Lamine Duran [place] of 10:23:00 [facility] MAGNESIUM 2021-03-17 Lamine Duran [place] of 10:23:00 [facility] PHOSPHORUS 2021-03-17 Lamine Duran University of 10:23:00 [facility] POCT GLUCOSE (AUTOMATED) 2021-03-16 Lamine Duran Univers ity of 22:46:00 [facility] POCT GLUCOSE (AUTOMATED) 2021-03-16 Lamine Duran Univers ity of 22:46:00 [facility] POCT GLUCOSE (AUTOMATED) 2021-03-16 Lamine Duran Univers ity of 22:46:00 [facility] POCT GLUCOSE (AUTOMATED) 2021-03-16 Lamine Duran Univers ity of 18:05:00 [facility] POCT GLUCOSE (AUTOMATED) 2021-03-16 Lamine Duran Univers ity of 18:05:00 [facility] POCT GLUCOSE (AUTOMATED) 2021-03-16 Lamine Duran ity of 18:05:00 [facility] BLOOD CULTURE SCREEN 2021-03-16 Saqib Hoffman [place] 17:10:00 [facility] BLOOD CULTURE SCREEN 2021-03-16 Saqib Hoffman [place] of 17:10:00 [facility] BLOOD CULTURE SCREEN 2021-03-16 Saqib Hoffman [place] of 17:10:00 [facility] BLOOD CULTURE SCREEN 2021-03-16 Saqib Hoffman [place] 17:04:00 [facility] BASIC METABOLIC PANEL (NA, K, CL, 2021-03-16 Barak Duran University of CO2, GLUCOSE, BUN, CREATININE, 17:04:00 [facility] BLOOD CULTURE SCREEN 2021-03-16 Saqib Hoffman [place] of 17:04:00 [facility] BASIC METABOLIC PANEL (NA, K, CL, 2021-03-16 Barak Duran University of CO2, GLUCOSE, BUN, CREATININE, 17:04:00 [facility] BLOOD CULTURE SCREEN 2021-03-16 Saqib Hoffman [place] of 17:04:00 [facility] BASIC METABOLIC PANEL (NA, K, CL, 2021-03-16 Barak Duran University of CO2, GLUCOSE, BUN, CREATININE, 17:04:00 [facility] POCT GLUCOSE (AUTOMATED) 2021-03-16 Lamine Duran ity of 13:40:00 [facility] POCT GLUCOSE (AUTOMATED) 2021-03-16 Lamine Duran [facility] ity of 13:40:00 [facility] POCT GLUCOSE (AUTOMATED) 2021-03-16 Lamine Duran [facility] ity of 13:40:00 [facility] MAGNESIUM 2021-03-16 Saqib Hoffman [place] 11:11:00 [facility] HEPATIC FUNCTION PANEL ([id number]) 2021-03-16 Lamine Duran U niversity of (ALB,T.PRO,BILI 11:11:00 [place] [facility] T,BU/BC,ALT,AST,ALK PHOS) Branch BASIC METABOLIC PANEL (NA, K, CL, 2021-03-16 Barak Duran [place] CO2, GLUCOSE, BUN, CREATININE, 11:11:00 [facility] CBC WITH DIFF 2021-03-16 Lamine Duran [place] 11:11:00 [facility] GLYCOSYLATED HEMOGLOBIN (A1C) 2021-03-16 Lamine Duran Un iversity of 11:11:00 [facility] PROCALCITONIN 2021-03-16 Saqib Hoffman [place] 11:11:00 [facility] MAGNESIUM 2021-03-16 Saqib Hoffman [place] 11:11:00 [facility] HEPATIC FUNCTION PANEL ([id number]) 2021-03-16 Lamine Duran niversity of (ALB,T.PRO,BILI 11:11:00 [facility] T,BU/BC,ALT,AST,ALK PHOS) Branch BASIC METABOLIC PANEL (NA, K, CL, 2021-03-16 Barak Duran [place] CO2, GLUCOSE, BUN, CREATININE, 11:11:00 [facility] CBC WITH DIFF 2021-03-16 Lamine Duran [place] 11:11:00 [facility] GLYCOSYLATED HEMOGLOBIN (A1C) 2021-03-16 Lamine Duran Un iversity of 11:11:00 [facility] PROCALCITONIN 2021-03-16 Saqib Hoffman [place] 11:11:00 [facility] CBC WITH DIFF 2021-03-16 Lamine Duran [place] 11:11:00 [facility] BASIC METABOLIC PANEL (NA, K, CL, 2021-03-16 Barak Duran University of CO2, GLUCOSE, BUN, CREATININE, 11:11:00 [facility] HEPATIC FUNCTION PANEL ([id number]) 2021-03-16 Lamine Duran niversity of (ALB,T.PRO,BILI 11:11:00 [facility],BU/BC,ALT,AST,ALK PHOS) [place] PROCALCITONIN 2021-03-16 [facility] of 11:11:00 [facility] MAGNESIUM 2021-03-16 [facility] of 11:11:00 [facility] GLYCOSYLATED HEMOGLOBIN (A1C) 2021-03-16 Lamine Duran iversity of 11:11:[address] [facility] [address] ABDOMEN PELVIS W WO CONTRAST 2021-03-16 [facility] [place] of 04:30:06 [facility] CT THORAX W WO CONTRAST 2021-03-16 [facility] of 04:30:06 [facility] CT ABDOMEN PELVIS W WO CONTRAST 2021-03-16 [facility] of 04:30:06 [facility] CT THORAX W WO CONTRAST 2021-03-16 [facility] sity of 04:30:06 [facility] CT THORAX W WO CONTRAST 2021-03-16 [facility] sity of 04:30:06 [facility] CT ABDOMEN PELVIS W WO CONTRAST 2021-03-16 [facility] mixon [place] of 04:30:06 [facility] POCT GLUCOSE (AUTOMATED) 2021-03-15 Lamine Duran [facility] ity of 21:34:00 [facility] POCT GLUCOSE (AUTOMATED) 2021-03-15 Lamine Duran [facility] ity of 21:34:00 [facility] POCT GLUCOSE (AUTOMATED) 2021-03-15 Lamine Duran [facility] ity of 21:34:00 [facility] URINALYSIS 2021-03-15 Cy Larsen [place] of 18:28:00 [facility] URINALYSIS 2021-03-15 Cy Larsen [place] of 18:28:00 [facility] URINALYSIS 2021-03-15 Cy Larsen [place] 18:28:[address] [facility] [address] HEAD WO CONTRAST 2021-03-15 Cy Larsen [place] f 18:15:42 [facility] CT HEAD WO CONTRAST 2021-03-15 Cy Larsen [place] f 18:15:[address] [facility] [address] HEAD WO CONTRAST 2021-03-15 Cy Larsen o f 18:15:42 [facility] XR CHEST 1 VW 2021-03-15 Cy Larsen [place] 18:15:12 [facility] XR CHEST 1 VW 2021-03-15 Cy Larsen [place] of 18:15:12 [facility] XR CHEST 1 VW 2021-03-15 Cy Larsen [place] of 18:15:12 [facility] CONSENT/REFUSAL FOR DIAGNOSIS AND 2021-03-15 Doctor Tenzin cardona [facility] 17:58:44 [place] [facility] CONSENT/REFUSAL FOR DIAGNOSIS AND 2021-03-15 Doctor Tenzin cardona [facility] 17:58:44 [place] [facility] CONSENT/REFUSAL FOR DIAGNOSIS AND 2021-03-15 [facility] 17:58:44 [place] [facility] COVID-19 (ID NOW RAPID TESTING) 2021-03-15 Cy Larsen [place] of 17:58:00 [facility] LAB ONLY COVID INTERPRETATION 2021-03-15 Cy Larsen Un iversity of 17:58:00 [facility] COVID-19 (ID NOW RAPID TESTING) 2021-03-15 Cy Larsen [place] 17:58:00 [facility] LAB ONLY COVID INTERPRETATION 2021-03-15 Cy Larsen Un iversity of 17:58:00 [facility] COVID-19 (ID NOW RAPID TESTING) 2021-03-15 Cy Larsen [place] 17:58:00 [facility] LAB ONLY COVID INTERPRETATION 2021-03-15 Cy Larsen Un iversity of 17:58:00 [facility] BLOOD CULTURE SCREEN 2021-03-15 Cy Larsen [place] of 17:57:00 [facility] BLOOD CULTURE WORKUP 2021-03-15 Cy Larsen of 17:57:00 [facility] GRAM POSITIVE BLOOD PATHOGENS DNA 2021-03-15 Cy Larsen University of PROBE-AEROBIC 17:57:00 [facility] BLOOD CULTURE SCREEN 2021-03-15 Cy Larsen of 17:57:00 [facility] BLOOD CULTURE WORKUP 2021-03-15 Cy Larsen of 17:57:00 [facility] GRAM POSITIVE BLOOD PATHOGENS DNA 2021-03-15 Cy Larsen University of PROBE-AEROBIC 17:57:00 [facility] BLOOD CULTURE SCREEN 2021-03-15 Cy Larsen of 17:57:00 [facility] BLOOD CULTURE WORKUP 2021-03-15 Cy Larsen [place] of 17:57:00 [facility] GRAM POSITIVE BLOOD PATHOGENS DNA 2021-03-15 Cy Larsen University of PROBE-AEROBIC 17:57:00 [facility] PHOSPHORUS 2021-03-15 Lamine Duran [place] 17:56:00 [facility] MAGNESIUM 2021-03-15 Cy Larsen [place] of 17:56:00 [facility] TROPONIN I 2021-03-15 Cy Larsen [place] of 17:56:00 [facility] COMP. METABOLIC PANEL ([id number]) 2021-03-15 Cy Larsen iversity of 17:56:00 [facility] DIFF CONSULT INTERPRETATION 2021-03-15 Saqib Hoffman [facility] ersity of 17:56:00 [facility] CBC WITH DIFF 2021-03-15 Cy Larsen of 17:56:00 [facility] N-TERMINAL PRO-BNP 2021-03-15 Cy Larsen of 17:56:00 [facility] AC PANEL 21 + LACTIC ACID 2021-03-15 [facility] 17:56:00 [facility] PHOSPHORUS 2021-03-15 Lamine Duran [place] 17:56:00 [facility] MAGNESIUM 2021-03-15 Cy Larsen [place] of 17:56:00 [facility] TROPONIN I 2021-03-15 Cy Larsen of 17:56:00 [facility] COMP. METABOLIC PANEL ([id number]) 2021-03-15 Cy Larsen Un iversity of 17:56:00 [facility] DIFF CONSULT INTERPRETATION 2021-03-15 Saqib Hoffman [facility] ersity of 17:56:00 [facility] CBC WITH DIFF 2021-03-15 Cy Larsen of 17:56:00 [facility] N-TERMINAL PRO-BNP 2021-03-15 Cy Larsen [place] of 17:56:00 [facility] AC PANEL 21 + LACTIC ACID 2021-03-15 [facility] 17:56:00 [facility] N-TERMINAL PRO-BNP 2021-03-15 Cy Larsen [place] of 17:56:00 [facility] CBC WITH DIFF 2021-03-15 Cy Larsen [place] 17:56:00 [facility] COMP. METABOLIC PANEL ([id number]) 2021-03-15 Cy Larsen Un iversity of 17:56:00 [facility] MAGNESIUM 2021-03-15 Cy Larsen [place] of 17:56:00 [facility] TROPONIN I 2021-03-15 Cy Larsen of 17:56:00 [facility] AC PANEL 21 + LACTIC ACID 2021-03-15 Cy Larsen Univer sity of 17:56:00 [facility] PHOSPHORUS 2021-03-15 Lamine Duran [place] 17:56:00 [facility] DIFF CONSULT INTERPRETATION 2021-03-15 Saqib Hoffman [facility] ersity of 17:56:00 [facility] HB ECG ROUTINE & RHYTHM STRIP 2021-03-15 Cy Larsen Un iversity of 17:50:45 [facility] HB ECG ROUTINE & RHYTHM STRIP 2021-03-15 Cy Larsen Un iversity of 17:50:45 [facility] HB ECG ROUTINE & RHYTHM STRIP 2021-03-15 Cy Larsen Un iversity of 17:50:45 [facility] HOSPITAL ADMISSION 2021-03-15 Doctor Unassigned, [facility] 06:01:00 [place] [facility] EMERGENCY DEPARTMENT DOCUMENTS 2021-03-15 Doctor Unassigned , [facility] 06:01:00 [place] [facility] HOSPITAL ADMISSION 2021-03-15 Doctor Unassigned, [facility] 06:01:00 [place] [facility] HOSPITAL ADMISSION 2021-03-15 Doctor Unassigned, [facility] 06:01:00 [place] [facility] URINALYSIS 2021-03-12 Keenan, [facility] of 21:28:00 [facility] XR CHEST 1 VW 2021-03-12 Keenan, [facility] of 19:27:[address] [facility] [address] HEAD WO CONTRAST 2021-03-12 Nora [facility] o f 19:09:59 [facility] CBC WITH DIFF 2021-03-12 Keenan, [facility] of 18:55:00 [facility] COMP. METABOLIC PANEL ([id number]) 2021-03-12 Antonio Keenan iversity of 18:55:00 [facility] N-TERMINAL PRO-BNP 2021-03-12 Nora [facility] of 18:55:00 [facility] TROPONIN I 2021-03-12 Keenan, [facility] of 18:55:00 [facility] COVID-19 (ID NOW RAPID TESTING) 2021-03-12 Nora [facility] of 18:55:00 [facility] LAB ONLY COVID INTERPRETATION 2021-03-12 Antonio Keenan iversity of 18:55:00 [facility] HB ECG ROUTINE & RHYTHM STRIP 2021-03-12 Antonio Keenan iversity of 18:44:43 [facility] NOTICE OF PRIVACY PRACTICES 2021-03-12 Doctor Unassigned, U niversity of 18:40:43 [place] [facility] CONSENT/REFUSAL FOR DIAGNOSIS AND 2021-03-12 Doctor Cadyssgénesis cardona [facility] 18:38:09 [place] [facility] INSURANCE CORRESPONDENCE 2021-03-10 Doctor Unassigned, Univ ersity of 06:01:00 [place] [facility] INSURANCE CORRESPONDENCE 2021-03-09 Doctor Unassigned, Univ ersity of 06:01:00 [place] [facility] HYPERCOAGULABLE EVALUATION-LT 2021-03-03 Jia Santamaria Un iversity of BLUE 16:12:00 Vilaschandra [facility] HYPERCOAGULABLE EVALUATION - SST 2021-03-03 Jia Santamaria [place] of 16:12:00 [facility] HYPERCOAGULABLE EVALUATION-LAV 2021-03-03 Jia Santamaria U niversity of 16:12:00 [facility] BASIC METABOLIC PANEL (NA, K, CL, 2021-03-03 Jia Santamaria [place] CO2, GLUCOSE, BUN, CREATININE, 16:12:00 [facility] VITAMIN B1 (THIAMINE), WHOLE 2021-03-03 Jia Santamaria Uni versity of BLOOD 16:12:00 [facility] HEMATOCRIT 2021-03-03 Rosalio Jia [facility] 16:12:00 [facility] RPR (QUANTITATIVE) 2021-03-03 Rosalio Jia [facility] 16:12:00 [facility] VITAMIN B12, LEVEL 2021-03-03 Jia Santamaria [place] 16:12:00 [facility] HYPERCOAGULABLE TESTS AND 2021-03-03 Jia Santamraia [facility] sity of EVALUATION 16:12:00 [facility] SEDIMENTATION RATE 2021-03-03 Rosalio Jia [place] 16:12:00 [facility] C-REACTIVE PROTEIN 2021-03-03 Rosalio Jia [place] 16:12:00 [facility] FOLATE 2021-03-03 Rosalio Jia [place] of 16:12:00 [facility] WB FOLATE 2021-03-03 Jia Santamaria [place] of 16:12:00 [facility] FACTOR 5 LEIDEN 2021-03-03 Rosalio Jia [place] of 16:12:00 [facility] FACTOR 2 [id number] MUTATION 2021-03-03 Jia Santamaria [facility] sity of 16:12:00 [facility] ANTICARDIOLIPIN ANTIBODIES 2021-03-03 [facility] of 16:12:00 [facility] ANTI-B2 GLYCOPROTEIN I AB 2021-03-03 Jia Santamaria [facility] sity of 16:12:00 [facility] PROTEIN C ACTIVITY 2021-03-03 Jia Santamaria [place] of 16:12:00 [facility] FREE PROTEIN S 2021-03-03 Jia Santamaria [place] of 16:12:00 [facility] ANTITHROMBIN ACTIVITY 2021-03-03 Jia Santamaria [place] of 16:12:00 [facility] FIBRINOGEN 2021-03-03 Rosalio Jia [place] of 16:12:00 [facility] MISCELLANEOUS SEND OUT TEST 2021-03-03 Jia Santamaria [facility] ersity of 16:12:00 [facility] DIAGNOSTIC MANAGEMENT TEAM; 2021-03-03 Jia Santamaria [facility] SPECIAL COAGULATION EVALUATION 16:12:00 [facility] CARDIAC DEVICE CHECK - NURSE - 2021-02-26 [facility] INTERROGATION LOOP RECORDER 17:43:00 [facility] PATIENT FINANCIAL POLICY 2021-02-26 Doctor Franci [facility] 06:01:00 [place] [facility] CONSENT/REFUSAL FOR DIAGNOSIS AND 2021-02-26 Doctor Tenzin cardona [facility] TREATMENT 06:01:00 [place] [facility] NO SHOW OR MISSED APPOINTMENT 2021-02-26 Doctor Franci [facility] POLICY ACKNOWLEDGEMENT 06:01:[address] [place] [facility] NOTICE OF BILLING PRACTICES FOR 2021-02-26 Doctor Kathleen barrientos [place] MEDICARE PATIENTS 06:01:00 [place] [facility] POWER OF SURGICAL NURSE 2021-02-26 Doctor Koroma [facility] 06:01:00 [place] [facility] ASSIGNMENT OF BENEFITS 2021-02-26 Doctor Franci [facility] sity of 06:01:00 [place] [facility] POCT GLUCOSE (AUTOMATED) 2021-02-11 Marcel Concepcion ity of 01:22:00 [facility] POCT GLUCOSE (AUTOMATED) 2021-02-10 Marcel Concepcion Univers ity of 21:24:00 [facility] POCT GLUCOSE (AUTOMATED) 2021-02-10 Marcel Concepcion Univers ity of 16:57:00 [facility] POCT GLUCOSE (AUTOMATED) 2021-02-10 Michael, Marcel [facility] ity of 12:40:00 [facility] POCT GLUCOSE (AUTOMATED) 2021-02-10 Michael, Marcel Univers ity of 01:02:00 [facility] POCT GLUCOSE (AUTOMATED) 2021-02-09 Michael, Marcel Univers ity of 23:01:00 [facility] TRANSESOPHAGEAL ECHO (JESSICA) 2021-02-[address] [facility] rsity of COMPLETE W/ DOPPLER AND COLOR 20:55:[facility]) 2021-02-09 Michael, Marcel Univers ity of 16:49:00 [facility] POCT GLUCOSE (AUTOMATED) 2021-02-09 Michael, Marcel Univers ity of 12:33:00 [facility] PROTHROMBIN TIME / INR 2021-02-09 Zuly [facility] y of 08:56:00 [facility] BASIC METABOLIC PANEL (NA, K, CL, 2021-02-09 Zuly [facility] of CO2, GLUCOSE, BUN, CREATININE, 08:56:00 [facility] MAGNESIUM 2021-02-09 Zuly, [facility] of 08:56:00 [facility] DISCLOSURE AND CONSENT, MEDICAL 2021-02-09 Doctor Kathleen barrientos [place] AND SURGICAL PROCEDURES 05:01:00 [place] [facility] POCT GLUCOSE (AUTOMATED) 2021-02-09 Marcel Concepcion Univers ity of 01:30:00 [facility] POCT GLUCOSE (AUTOMATED) 2021-02-08 Andres Concepcionun Univers ity of 22:08:00 [facility] MR BRAIN W WO CONTRAST 2021-02-08 [facility] 19:08:00 [facility] POCT GLUCOSE (AUTOMATED) 2021-02-08 Michael, Marcel Univers ity of 16:53:00 [facility] CBC WITH DIFF 2021-02-08 Zuly [facility] of 14:49:00 [facility] BASIC METABOLIC PANEL (NA, K, CL, 2021-02-08 Zuly [facility] of CO2, GLUCOSE, BUN, CREATININE, 14:49:00 [facility] MAGNESIUM 2021-02-08 Zuly [facility] of 14:49:00 [facility] POCT GLUCOSE (AUTOMATED) 2021-02-08 Michael, [place] [facility] ity of 14:20:00 [facility] POCT GLUCOSE (AUTOMATED) 2021-02-08 Michael, Marcel [facility] ity of 00:50:00 [facility] POCT GLUCOSE (AUTOMATED) 2021-02-07 Michael, Marcel Univers ity of 22:07:00 [facility] POCT GLUCOSE (AUTOMATED) 2021-02-07 Michael, [place] [facility] ity of 17:37:00 [facility] POCT GLUCOSE (AUTOMATED) 2021-02-07 Michael, [place] [facility] ity of 14:30:00 [facility] LIPID PANEL ([id number])(TOTAL [facility] Univer sity of CHOLESTEROL, TRIGLYCERIDES, HDL) 09:04:00 [facility] URIC ACID 2021-02-07 Zuly [facility] of 09:04:00 [facility] THYROID STIMULATING HORMONE 2021-02-07 Zuly [facility] ersity of 09:04:00 [facility] POCT GLUCOSE (AUTOMATED) 2021-02-07 Michael, [place] [facility] ity of 01:12:00 [facility] CT THORAX W CONTRAST 2021-02-06 [facility] [place] 23:35:22 [facility] EXTRA TUBE SST 2021-02-06 [facility] of 23:08:00 [facility] [facility] LIPID PANEL (05358)(T[facility] s[facility] of CHOLESTEROL, TRIGLYCERIDES, HDL) 23:08:00 [facility] GLYCOSYLATED HEMOGLOBIN (A1C) 2021-02-06, Un iversity of 23:08:00 [facility] VERIFYNOW PRUTEST (P2Y12) 2021-02-06[facility], Univer sity of 23:08:00 [facility] OSMOLALITY, SERUM OR PLASMA 2021-02-[facility] Univ ersity of 23:08:00 [facility] XR CHEST 2 VW 2021-02-06 Shine Oliva [place] of 17:09:00 [facility] URINALYSIS 2021-02-06 Shine Oliva [place] of 16:05:00 [facility] URINE DRUG (IMMUNOASSAY) - 2021-02-06 Shine Oliva Un iversity of COMPREHENSIVE DRUG SCREEN W/O [place] [facility] SODIUM, URINE RANDOM 2021-02-06 [facility] [place] 16:05:00 [facility] OSMOLALITY URINE 2021-02-06 [facility] [place] 16:05:[address] [facility] [address] HEAD WO CONTRAST 2021-02-06 [facility]02 [facility] [address] STROKE ANGIOGRAM HEAD 2021-02-06 Shine Oliva [facility] ersity of 15:48:[address] [facility] [address] STROKE ANGIOGRAM NECK 2021-02-06 Shine Oliva [facility] ersity of 15:48:02 [facility] CBC WITH DIFF 2021-02-06 Shine Oliva [place] of 15:23:00 [facility] COMP. METABOLIC PANEL (36891) 2021-02-06 Shine Oliva [place] of 15:23:00 [facility] TROPONIN I 2021-02-06 Shine Oliva [place] of 15:23:00 [facility] N-TERMINAL PRO-BNP 2021-02-06 Shine Oliva [place] of 15:23:00 [facility] COVID-19 (ID NOW RAPID TESTING) 2021-02-06 Todd Oliva [place] of 15:23:00 [facility] LAB ONLY COVID INTERPRETATION 2021-02-06 Shine Oliva [place] of 15:23:00 [facility] GLYCOSYLATED HEMOGLOBIN (A1C) [facility]-02-[facility] iversity of 15:23:00 [facility] VITAMIN B12, LEVEL 2021-02-06 [facility] of 15:23:00 [facility] HB ECG ROUTINE & RHYTHM STRIP 2021-02-06 Shine Oliva [place] of 14:59:04 [facility] CONSENT/REFUSAL FOR DIAGNOSIS AND 2021-02-06 Doctor Tenzin cardona [facility] 14:35:03 [place] [facility] HOSPITAL ADMISSION 2021-02-06 Doctor Franci [facility] 05:01:00 [place] [facility] Encounters Start End Encounter Admission Attending Care Care Encounter Source Date/Time Date/Time Type Type Clinicians Facility Department ID 2021-05-05 2021-05-05 Outpatient R [facility]ANTAMARIA [facility] [id number] -[id number] Univers 12:00:00 12:00:00 JIA [id number] ity of [facility] 2021-05-05 2021-05-05 [facility] [id number] Univers 12:00:00 12:00[facility]00 [facility] [place] 2021-05-04 2021-05-04 Letter [facility] 1.2.840.114 [id number] Univers 00:00:00 00:00:00 (Out) Jia HEALTH 350.1.13.10 it y of [place]AR 4.2.7.2.686 [facility] REYES [phone] [address] OFFICE BUILDING 2021-04-16 2021-04-16 Telephone [facility] 1.2.628.812 [id number] Univers 00:00:00 00:00:00 Jia HEALTH 350.1.13.10 it y of [place] 4.2.7.2.686 [place] a REYES [id number] [address] OFFICE BUILDING 2021-03-15 2021-04-07 Inpatient U [facility] [id number] Univers 11:49:00 17:17:00 JIA ity of [facility] 2021-03-15 2021-04-07 Hospital Laura Peck 1.2.84 0.114 [id number] Univers 11:49:00 17:17:00 Encounter Cy Larsen 350.1.13.10 ity of [facility] 4.2.7.2.686 [place] Maritza Fajardo [facility] [id number] Medical Michael, Marcel 098 Br anch Jia Santamaria 2021-03-30 2021-03-30 [facility] 1.2.840.114 [id number] Univers 09:03:00 10:22:00 Clyde ICAL 350.1.13.10 it y of SCIENCES 4.2.7.2.686 [place] as BLDG [id number] [facility] 020 Branch 2021-03-27 2021-03-27 Anesthesia Jim Lorenzo 1.2.840 .1 [id number] Univers 12:34:00 15:06:00 Event Martina Fowler 85718.1.1 ity of 3.104.2.7 [place] .3.732783 Medica l .8 Branch 2021-03-20 2021-03-20 Travel 1.2.840.1 1.2.210.741 [id number] Univers 00:00:00 00:00:00 81536.1.1 350.1.13.10 ity of 3.104.2.7 4.[place]7.3.698 [place] .3.954263 084.8 Medica l .8 Branch 2021-03-18 2021-03-18 Patient Santamaria, 1.2.840.5 [id number] [facility] Univers 00:00:00 00:00:00 Secure Msg Jia 04941.1.1 [facility] [place] .3.597724 Medica l .8 Branch 2021-03-15 2021-03-15 Travel 1.2.840.1 1.2.713.811 [id number] Univers 00:00:00 00:00:00 77861.1.1 350.1.13.10 ity of 3.104.2.7 4.2.7.3.698 [place] .3.500167 084.8 Medica l .8 Branch 2021-03-12 2021-03-12 Emergency Keenan, 1.2.840.2 [id number] Univers 12:41:00 16:45:00 [place] 28640.1.1 ity of 3.104.2.7 [place] .3.814731 Medica l .8 Branch 2021-03-12 2021-03-12 Travel 1.2.840.1 1.2.401.695 [id number] Univers 00:00:00 00:00:00 37149.1.1 350.1.13.10 ity of 3.104.2.7 4.[place].7.3.698 [place] .3.545481 084.8 Medica l .8 [place] 2021-03-10 2021-03-10 Orders Doctor ARMEN 1.2.840.114 [id number] Univers 00:00:00 00:00:00 Only Unassigned, FREDDY 350.1.13.10 ity of [place] [facility]PITAL 4.2.7.2.686 [place] as [phone] [facility] 009 [place] 2021-03-10 2021-03-10 Case Herminio, 1.2.840.6 [id number] Univers 00:00:00 00:00:00 Management Salik 39434.1.1 i ty of 3.104.2.7 [place] .3.567827 Medica l .8 [place] 2021-03-10 2021-03-10 Patient Doctor 1.2.840.2 [id number] Univers 00:00:00 00:00:00 Secure Msg Unassigned, 79407.1.1 ity of [place] 3.104.2.7 [place] .3.827093 Medica l .8 [place] 2021-03-04 2021-03-04 Telephone Rosalio 1.2.840.8 [id number] Univers 00:00:00 00:00:00 Jia 22947.1.1 ity of [place].2.7 [place] .3.458853 Medica l .8 Branch 2021-03-03 2021-03-03 Ice Sculptor Jia Santamariaaschand 1 .2.840.9 [id number] Univers 10:00:00 10:05:36 Visit [facility] 32254.1.1 ity of 3.104.2.7 [place] .3.062358 Medica l .8 Branch 2021-03-03 2021-03-03 Office Adonis Scott [facility] 1.2.840.1 1 [id number] Univers 09:30:00 10:00:00 Visit Herminio Blancacy 24874.1.1 ity of 3.104.2.7 [place] .3.659888 Medica l .8 Branch 2021-03-03 2021-03-03 Telephone Santamaria, 1.2.840.4 [id number] Univers 00:00:00 00:00:00 Jia 68109.1.1 ity of [place].2.[place] .3.186479 Medica l .8 Branch 2021-03-02 2021-03-02 Office Santamaria, 1.2.840.4 [id number] Univers 11:00:00 12:00:00 Visit Jia 57986.1.1 ity of [place].2.7 [place] .3.339430 Medica l .8 Branch 2021-02-26 2021-02-26 [facility], 1.2.840.0 [id number] Univers 11:00:00 23:59:00 Encounter Chad 87612.1.1 ity of 3.104.2.7 [place] .3.599456 Medica l .8 Branch 2021-02-26 2021-02-26 Travel 1.2.840.1 1.2.890.761 [id number] Univers 00:00:00 00:00:00 59274.1.1 350.1.13.10 ity of 3.104.2.7 4.[place].7.3.698 [place] .3.331614 084.8 Medica l .8 Branch 2021-02-11 2021-02-11 [facility], 1.2.840.0 [id number] Univers 00:00:00 00:00:00 of Care Shira Rubio 11752.1.1 ity of 3.104.2.7 [place] .3.317171 Medica l .8 Branch 2021-02-06 2021-02-10 Hospital Esther Lara 1.2.840.1 [id number] Univers 09:34:00 21:22:00 Encounter Marcel Concepcion 66871.1.1 ity of 3.104.2.7 [place] .3.217996 Medica l .8 Branch 2021-02-10 2021-02-10 Anesthesia Aly, 1.2.840.5 [id number] Univers 15:59:40 15:59:40 Event Chloe Rubio 28395.1.1 ity of 3.104.2.7 [place] .3.387698 Medica l .8 Branch 2021-02-06 2021-02-06 Travel 1.2.840.1 1.2.630.295 [id number] Univers 00:00:00 00:00:00 24951.1.1 350.1.13.10 ity of 3.104.2.7 4[place]7.3.698 [place] .3.527194 084.8 Medica l .8 Branch 2021-01-07 2021-01-07 Inpatient 3 LAUR[place]A, [facility] [id number] 10:57:00 23:59:00 NITHYA Spears ukes - N, [address] BYPASS, (LUF[place] [address] 2021-01-07 2021-01-07 Inpatient E CAROL SALCIDO [facility] [id number] 12:00:00 15:15:00 ANTONIA Spears ukes - N, [address] l BYPASS, (LUF/[place] [address] 2021-01-07 2021-01-07 Inpatient [facility] [id number] [facility] 00:00:00 00:00:00 ANTONIA NAM [id number], [phone] l BYPASS, (LUF/[place] [address] 2021-01-07 2021-01-07 Inpatient [facility] [id number] 00:00:00 00:00:00 ANTONIA NAM [id number] [facility], [phone] 75k851 l BYPASS, (LUF/[place] [address] 2018 2018 ESSENTIAL O LAURORA, [facility] [id number] 10:42:00 23:59:00 PRIMARY NITHYA NAM L ukes - HYPERTENSI N, [address] BYPASS, (LUF/[place] [address] Results Test Description Test Time Test Comments Results Result Comments Source POCT GLUCOSE (AUTOMATED) 2021-04-07 17:19:06 Test Item Value Reference Range Interpretation Comme nts POCT GLU (test code = 2158971748) 91 mg/dL 70-110 Lab Interpretation (test code = 07230-0) Normal [facility]. Sendout- anca vasculitis [id number] 2021-04-07 14:16:32 Test Item Value Reference Range Interpretation Comments Miscellaneous Test (test See scanned report code = 3744832098) Performing Lab (test code ARUP = 9887190593) [facility] GLUCOSE (AUTOMATED)2021-04-07 13:15:52 Test Item Value Reference Range Interpretation Comments POCT GLU (test code = 1223443160) 99 mg/dL 70-110 Lab Interpretation (test code = Normal 26933-1) [facility] GLUCOSE (AUTOMATED)2021-04-06 22:48:34 Test Item Value Reference Range Interpretation Comments POCT GLU (test code = 2968795490) 118 mg/dL 70-110 H Lab Interpretation (test code = Abnormal 58104-6) [facility] GLUCOSE (AUTOMATED)2021-04-06 16:57:15 Test Item Value Reference Range Interpretation Comments POCT GLU (test code = 4174525682) 140 mg/dL 70-110 H Lab Interpretation (test code = Abnormal 05217-2) [facility] Sendout- [id number] : [id number] 15:11:18 Test Item Value Reference Range Interpretation Comments Miscellaneous Test (test See scanned report code = 7560611819) Performing Lab (test code ARUP = 1622364484) [facility]. Sendout- [id number] : HSV by [id number] 14:58:33 Test Item Value Reference Range Interpretation Comments Miscellaneous Test (test See scanned report code = 4196270673) Performing Lab (test code ARUP = 6001442618) [facility]. Sendout- anca vasculitis [id number] 2021-04-06 14:56:02 Test Item Value Reference Range Interpretation Comments Miscellaneous Test (test See scanned report code = 0837507153) Performing Lab (test code ARUP = 6499632313) [facility] GLUCOSE (AUTOMATED)2021-04-06 14:06:38 Test Item Value Reference Range Interpretation Comments POCT GLU (test code = 9097276984) 132 mg/dL 70-110 H Lab Interpretation (test code = Abnormal 74902-3) [facility] METABOLIC PANEL (NA, K, CL, CO2, GLUCOSE, BUN, CREATININE, CA)2021-04-06 11:32:12 Test Item Value Reference Range Interpretation Comments NA (test code = 129 mmol/L 135-145 L 4560030340) K (test code = 4.2 mmol/L 3.5-5.0 2285131953) CL (test code = 101 mmol/L 98-108 2797591278) CO2 TOTAL (test code = 24 mmol/L 23-31 7329526429) AGAP (test code = 2-16 5154316030) BUN (test code = 13 mg/dL 7-23 8693283279) GLUCOSE (test code = 132 mg/dL 70-110 H 7030547824) CREATININE (test code = 0.54 mg/dL 0.60-1.25 L 9581205343) CALCIUM (test code = 8.8 mg/dL 8.6-10.6 8240539458) eGFR (test code = mL/min/1.73m2 2088777798) POP (test code = POP) Association of [...] tests). Lab Interpretation Abnormal (test code = 69290-6) [facility] WITH [id number] 11:05:49 Test Item Value Reference Range Interpretation Comments WBC (test code = See_Comment [Automated 3990-2) message] The sy stem which generated this result transmitted reference range : 4.20 - 10.70 10*3/?L. The reference range was not used to interpret this result as normal/abnormal . RBC (test code = See_Comment L [Automated 269-8) message] The sy stem which generated this [...] (test code = 55.3 fL 38.5-51.6 H 35184-8) RDW-CV (test code = 15.7 % 12.1-15.4 H 788-0) PLT (test code = See_Comment H [Automated 777-3) message] The sy stem which generated this result transmitted reference range : 150 - 328 10*3/ ?L. The reference r jalen was not used to interpret this result as normal/abnormal . MPV (test code = 9.1 fL 9.8-13.0 L 29496-5) NRBC/100 WBC (test See_Comment [Automat ed code = 9562667605) message] The system which generated this result transmitted reference range : 0.0 - 10.0 /100 WBCs. The refer ence range was not u sed to interpret th is result as normal/abnormal . NRBC x10^3 (test code <0.01 See_Comment [Auto mated = 3034367889) message] The s ystem which generated this result transmitted reference range : 10*3/?L. The reference range was not used to interpret this result as normal/abnormal . GRAN MAT (NEUT) % 76.7 % (test code = 770-8) IMM GRAN % (test code 0.40 % = 6706708724) LYMPH % (test code = 13.1 % 736-9) MONO % (test code = 6.8 % 5905-5) EOS % (test code = 2.5 % 713-8) BASO % (test code = 0.5 % 706-2) GRAN MAT x10^3(ANC) 7.87 10*3/uL 1.99-6.95 H (test code = 5692368305) IMM GRAN x10^3 (test 0.04 10*3/uL 0.00-0.06 code = 9497715178) LYMPH x10^3 (test code 1.34 10*3/uL 1.09-3.23 = 731-0) MONO x10^3 (test code 0.70 10*3/uL 0.36-1.02 = 742-7) EOS x10^3 (test code = 0.26 10*3/uL 0.06-0.53 711-2) BASO x10^3 (test code 0.05 10*3/uL 0.01-0.09 = 704-7) Lab Interpretation Abnormal (test code = 17166-8) [facility]PATHOLOG[facility] [id number] 01:10:10ANA - Pathologist InterpretationANA HEp-2 IIFA Pathologist [...] thyroid disease, discoid lupus, and fibromyalgia. (https:// pubmed.ncbi.nlm.nih.gov/52217875/, https://pubmed.ncbi.nlm.nih.gov/03394725/) ? ? Therefore, a diagnosis cannot be based exclusively on JIM detection and/or pattern and thus should be made via the integration of patient history, physical exam findings, and other diagnostic tests as clinically indicated. Lillie Goldberg MD ?04/05/2021 ?7:09 [facility])2021-04-05 21:40:00 Test Item Value Reference Range Interpretation Comments POCT GLU (test code = 5752217551) 132 mg/dL 70-110 H Lab Interpretation (test code = Abnormal 68986-5) [facility] GLUCOSE (AUTOMATED)2021-04-05 18:10:53 Test Item Value Reference Range Interpretation Comments POCT GLU (test code = 0956882066) 138 mg/dL 70-110 H Lab Interpretation (test code = Abnormal 70317-2) [facility] GLUCOSE (AUTOMATED)2021-04-05 14:04:11 Test Item Value Reference Range Interpretation Comments POCT GLU (test code = 0101423564) 116 mg/dL 70-110 H Lab Interpretation (test code = Abnormal 63341-8) [facility] GLUCOSE (AUTOMATED)2021-04-04 21:41:22 Test Item Value Reference Range Interpretation Comments POCT GLU (test code = 7625763293) 137 mg/dL 70-110 H Lab Interpretation (test code = Abnormal 16242-4) [facility] GLUCOSE (AUTOMATED)2021-04-04 18:08:49 Test Item Value Reference Range Interpretation Comments POCT GLU (test code = 4192955463) 152 mg/dL 70-110 H Lab Interpretation (test code = Abnormal 65927-1) [facility] GLUCOSE (AUTOMATED)2021-04-04 14:08:44 Test Item Value Reference Range Interpretation Comments POCT GLU (test code = 3993929515) 133 mg/dL 70-110 H Lab Interpretation (test code = Abnormal 15057-8) [facility] GLUCOSE (AUTOMATED)2021-04-04 01:42:09 Test Item Value Reference Range Interpretation Comments POCT GLU (test code = 9432269071) 150 mg/dL 70-110 H Lab Interpretation (test code = Abnormal 74030-3) [facility] GLUCOSE (AUTOMATED)2021-04-03 22:52:45 Test Item Value Reference Range Interpretation Comments POCT GLU (test code = 3744023112) 139 mg/dL 70-110 H Lab Interpretation (test code = Abnormal 60708-7) [facility] WITH [id number] 21:30:06 Test Item Value Reference Range Interpretation [...] (test code = 58.4 fL 38.5-51.6 H 72997-6) RDW-CV (test code = 16.6 % 12.1-15.4 H 788-0) PLT (test code = See_Comment H [Automated 777-3) message] The sy stem which generated this result transmitted reference range : 150 - 328 10*3/ ?L. The reference r jalen was not used to interpret this result as normal/abnormal . MPV (test code = 9.2 fL 9.8-13.0 L 02550-7) NRBC/100 WBC (test See_Comment [Automat ed code = 1568163960) message] The system which generated this result transmitted reference range : 0.0 - 10.0 /100 WBCs. The refer ence range was not u sed to interpret th is result as normal/abnormal . NRBC x10^3 (test code <0.01 See_Comment [Auto mated = 2038565145) message] The s ystem which generated this result transmitted reference range : 10*3/?L. The reference range was not used to interpret this result as normal/abnormal . GRAN MAT (NEUT) % 78.6 % (test code = 770-8) IMM GRAN % (test code 0.40 % = 1277991540) LYMPH % (test code = 11.9 % 736-9) MONO % (test code = 6.2 % 5905-5) EOS % (test code = 2.5 % 713-8) BASO % (test code = 0.4 % 706-2) GRAN MAT x10^3(ANC) 8.91 10*3/uL 1.99-6.95 H (test code = 9736145584) IMM GRAN x10^3 (test 0.05 10*3/uL 0.00-0.06 code = 5354925309) LYMPH x10^3 (test code 1.35 10*3/uL 1.09-3.23 = 731-0) MONO x10^3 (test code 0.70 10*3/uL 0.36-1.02 = 742-7) EOS x10^3 (test code = 0.28 10*3/uL 0.06-0.53 711-2) BASO x10^3 (test code 0.04 10*3/uL 0.01-0.09 = 704-7) Lab Interpretation Abnormal (test code = 88435-8) [facility] GLUCOSE (AUTOMATED)2021-04-03 18:48:37 Test Item Value Reference Range Interpretation Comments POCT GLU (test code = 1862285636) 111 mg/dL 70-110 H Lab Interpretation (test code = Abnormal 63106-0) [facility] GLUCOSE (AUTOMATED)2021-04-03 13:33:21 Test Item Value Reference Range Interpretation Comments POCT GLU (test code = 1514762123) 105 mg/dL 70-110 Lab Interpretation (test code = Normal 92740-4) [facility] METABOLIC PANEL (NA, K, CL, CO2, GLUCOSE, BUN, CREATININE, CA)2021-04-03 00:52:56 Test Item Value Reference Range Interpretation Comments NA (test code = 132 mmol/L 135-145 L 6641608700) K (test code = 4.3 mmol/L 3.5-5.0 1716544372) CL (test code = 103 mmol/L 98-108 8195637092) CO2 TOTAL (test code = 22 mmol/L 23-31 L 2853174802) AGAP (test code = 2-16 3888637976) BUN (test code = 11 mg/dL 7-23 9388811357) GLUCOSE (test code = 157 mg/dL 70-110 H 7685689640) CREATININE (test code = 0.67 mg/dL 0.60-1.25 5604205932) CALCIUM (test code = 8.6 mg/dL 8.6-10.6 7174622961) eGFR (test code = mL/min/1.73m2 6277631501) POP (test code = POP) Association of [...] tests). Lab Interpretation Abnormal (test code = 76615-6) [facility] GLUCOSE (AUTOMATED)2021-04-02 23:31:51 Test Item Value Reference Range Interpretation Comments POCT GLU (test code = 2058046705) 148 mg/dL 70-110 H Lab Interpretation (test code = Abnormal 15559-5) [facility] WITH [id number] 23:25:07 Test Item Value Reference Range Interpretation [...] (test code = 61.1 fL 38.5-51.6 H 56372-1) RDW-CV (test code = 17.0 % 12.1-15.4 H 788-0) PLT (test code = See_Comment H [Automated 777-3) message] The sy stem which generated this result transmitted reference range : 150 - 328 10*3/ ?L. The reference r jalen was not used to interpret this result as normal/abnormal . MPV (test code = 9.1 fL 9.8-13.0 L 81696-1) NRBC/100 WBC (test See_Comment [Automat ed code = 5906353723) message] The system which generated this result transmitted reference range : 0.0 - 10.0 /100 WBCs. The refer ence range was not u sed to interpret th is result as normal/abnormal . NRBC x10^3 (test code <0.01 See_Comment [Auto mated = 1131663930) message] The s ystem which generated this result transmitted reference range : 10*3/?L. The reference range was not used to interpret this result as normal/abnormal . GRAN MAT (NEUT) % 79.7 % (test code = 770-8) IMM GRAN % (test code 0.40 % = 9068819298) LYMPH % (test code = 10.7 % 736-9) MONO % (test code = 7.0 % 5905-5) EOS % (test code = 1.8 % 713-8) BASO % (test code = 0.4 % 706-2) GRAN MAT x10^3(ANC) 8.26 10*3/uL 1.99-6.95 H (test code = 2285885861) IMM GRAN x10^3 (test 0.04 10*3/uL 0.00-0.06 code = 0492941065) LYMPH x10^3 (test code 1.11 10*3/uL 1.09-3.23 = 731-0) MONO x10^3 (test code 0.73 10*3/uL 0.36-1.02 = 742-7) EOS x10^3 (test code = 0.19 10*3/uL 0.06-0.53 711-2) BASO x10^3 (test code 0.04 10*3/uL 0.01-0.09 = 704-7) Lab Interpretation Abnormal (test code = 95152-7) [facility] GLUCOSE (AUTOMATED)2021-04-02 19:12:44 Test Item Value Reference Range Interpretation Comments POCT GLU (test code = 2317906882) 137 mg/dL 70-110 H Lab Interpretation (test code = Abnormal 09121-5) [facility] GLUCOSE (AUTOMATED)2021-04-02 13:41:59 Test Item Value Reference Range Interpretation Comments POCT GLU (test code = 8510885342) 146 mg/dL 70-110 H Lab Interpretation (test code = Abnormal 80867-3) [facility] [id number] 01:02:17 Test Item Value Reference Range Interpretation Comments Blood Culture-Aerobic No organisms No growth Previo us (test code = 27922-3) isolated prelim inary verified result was Culture In Progress on 03/27/2021 at 2201 CSTPreviou s preliminary verified result was No growth a t 24 hours on 03/28/2021 at 1901 CSTPreviou s preliminary verified result was No growth a t 48 hours on 03/29/2021 at 1901 CSTPreviou s preliminary verified result was No growth a t 72 hours on 03/30/2021 at 1901 [employer] Blood No organisms No growth Previous Culture-Anaerobic isolated preliminar y (test code = 93996-3) verifi ed result was Culture In Progress on 03/27/2021 at 2201 CSTPreviou s preliminary verified result was No growth a t 24 hours on 03/28/2021 at 1901 CSTPreviou s preliminary verified result was No growth a t 48 hours on 03/29/2021 at 1901 CSTPreviou s preliminary verified result was No growth a t 72 hours on 03/30/2021 at 1901 [employer] Lab Interpretation Normal (test code = 55768-1) [facility] CULTURE [id number] 01:02:17 Test Item Value Reference Range Interpretation Comments Blood Culture-Aerobic No organisms No growth Previo us (test code = 82777-0) isolated prelim inary verified result was Culture In Progress on 03/27/2021 at 2201 CSTPreviou s preliminary verified result was No growth a t 24 hours on 03/28/2021 at 1901 CSTPreviou s preliminary verified result was No growth a t 48 hours on 03/29/2021 at 1901 CSTPreviou s preliminary verified result was No growth a t 72 hours on 03/30/2021 at 1901 [employer] Blood No organisms No growth Previous Culture-Anaerobic isolated preliminar y (test code = 45997-8) verifi ed result was Culture In Progress on 03/27/2021 at 2201 CSTPreviou s preliminary verified result was No growth a t 24 hours on 03/28/2021 at 1901 CSTPreviou s preliminary verified result was No growth a t 48 hours on 03/29/2021 at 1901 CSTPreviou s preliminary verified result was No growth a t 72 hours on 03/30/2021 at 1901 [employer] Lab Interpretation Normal (test code = 45347-7) [facility] 21:29:38 Test Item Value Reference Range Interpretation Comments POCT GLU (test code = 7228959432) 136 mg/dL 70-110 H Lab Interpretation (test code = Abnormal 42383-4) [facility] GLUCOSE (AUTOMATED)2021-04-01 17:07:36 Test Item Value Reference Range Interpretation Comments POCT GLU (test code = 6875901945) 132 mg/dL 70-110 H Lab Interpretation (test code = Abnormal 34286-8) [facility] GLUCOSE (AUTOMATED)2021-04-01 13:36:26 Test Item Value Reference Range Interpretation Comments POCT GLU (test code = 7212953352) 116 mg/dL 70-110 H Lab Interpretation (test code = Abnormal 41047-0) [facility] WITH [id number] 11:45:58 Test Item Value Reference Range Interpretation [...] (test code = 60.1 fL 38.5-51.6 H 14522-1) RDW-CV (test code = 18.2 % 12.1-15.4 H 788-0) PLT (test code = See_Comment H [Automated 777-3) message] The sy stem which generated this result transmitted reference range : 150 - 328 10*3/ ?L. The reference r jalen was not used to interpret this result as normal/abnormal . MPV (test code = 9.2 fL 9.8-13.0 L 82498-3) NRBC/100 WBC (test See_Comment [Automat ed code = 3850712901) message] The system which generated this result transmitted reference range : 0.0 - 10.0 /100 WBCs. The refer ence range was not u sed to interpret th is result as normal/abnormal . NRBC x10^3 (test code <0.01 See_Comment [Auto mated = 5363682950) message] The s ystem which generated this result transmitted reference range : 10*3/?L. The reference range was not used to interpret this result as normal/abnormal . GRAN MAT (NEUT) % 81.4 % (test code = 770-8) IMM GRAN % (test code 0.50 % = 9093093286) LYMPH % (test code = 11.5 % 736-9) MONO % (test code = 5.4 % 5905-5) EOS % (test code = 1.0 % 713-8) BASO % (test code = 0.2 % 706-2) GRAN MAT x10^3(ANC) 9.56 10*3/uL 1.99-6.95 H (test code = 2388781694) IMM GRAN x10^3 (test 0.06 10*3/uL 0.00-0.06 code = 7184962661) LYMPH x10^3 (test code 1.35 10*3/uL 1.09-3.23 = 731-0) MONO x10^3 (test code 0.64 10*3/uL 0.36-1.02 = 742-7) EOS x10^3 (test code = 0.12 10*3/uL 0.06-0.53 711-2) BASO x10^3 (test code <0.03 0.01-0.09 = 704-7) Lab Interpretation Abnormal (test code = 87123-6) [facility] METABOLIC PANEL (NA, K, CL, CO2, GLUCOSE, BUN, CREATININE, CA)2021-04-01 11:35:36 Test Item Value Reference Range Interpretation Comments NA (test code = 130 mmol/L 135-145 L 9570300046) K (test code = 3.9 mmol/L 3.5-5.0 5055264201) CL (test code = 102 mmol/L 98-108 1721938055) CO2 TOTAL (test code = 22 mmol/L 23-31 L 2438936109) AGAP (test code = 2-16 4777686686) BUN (test code = 11 mg/dL 7-23 4079539858) GLUCOSE (test code = 114 mg/dL 70-110 H 7386661338) CREATININE (test code = 0.78 mg/dL 0.60-1.25 8390154985) CALCIUM (test code = 8.5 mg/dL 8.6-10.6 L 6764113879) eGFR (test code = mL/min/1.73m2 1937334844) POP (test code = POP) Association of [...] tests). Lab Interpretation Abnormal (test code = 29622-9) [facility]:36 Test Item Value Reference Range Interpretation Comments MAGNESIUM (test code = 2027367953) 1.7 mg/dL 1.7-2.4 Lab Interpretation (test code = Normal 18765-8) [facility] GLUCOSE (AUTOMATED)2021-03-31 21:14:18 Test Item Value Reference Range Interpretation Comments POCT GLU (test code = 9434057332) 97 mg/dL 70-110 Lab Interpretation (test code = Normal 80458-0) [facility]21-[facility] 18:15:23 Test Item Value Reference Range Interpretation Comments ANTI-SSA(RO) (test code = Negative Negative 2508897796) POP (test code = POP) Positive - Antibody detected.Negative - No antibody detected. Lab Interpretation (test Normal code = 36479-9) [facility]2021-[facility]-31 18:15:23 Test Item Value Reference Range Interpretation Comments Anti-SSB(LA) (test code = Negative Negative 7776426063) POP (test code = POP) Positive - Antibody detected.Negative - No antibody detected. Lab Interpretation (test Normal code = 81092-4) [facility]21-[facility] 18:15:23 Test Item Value Reference Range Interpretation Comments ANTI-SSA(RO) (test code = Negative Negative 4182740061) POP (test code = POP) Positive - Antibody detected.Negative - No antibody detected. Lab Interpretation (test Normal code = 73727-4) [facility]21-[facility] 18:15:23 Test Item Value Reference Range Interpretation Comments Anti-SSB(LA) (test code = Negative Negative 1369234545) POP (test code = POP) Positive - Antibody detected.Negative - No antibody detected. Lab Interpretation (test Normal code = 31204-5) [facility] GLUCOSE (AUTOMATED)2021-03-31 17:14:06 Test Item Value Reference Range Interpretation Comments POCT GLU (test code = 0258836462) 111 mg/dL 70-110 H Lab Interpretation (test code = Abnormal 45898-1) [facility] GLUCOSE (AUTOMATED)2021-03-31 17:14:06 Test Item Value Reference Range Interpretation Comments POCT GLU (test code = 9769993780) 111 mg/dL 70-110 H Lab Interpretation (test code = Abnormal 79201-7) [facility] GLUCOSE (AUTOMATED)2021-03-31 13:31:44 Test Item Value Reference Range Interpretation Comments POCT GLU (test code = 9132888198) 90 mg/dL 70-110 Lab Interpretation (test code = Normal 53705-1) [facility] GLUCOSE (AUTOMATED)2021-03-31 13:31:44 Test Item Value Reference Range Interpretation Comments POCT GLU (test code = 1247354620) 90 mg/dL 70-110 Lab Interpretation (test code = Normal 12303-7) [facility] METABOLIC PANEL (NA, K, CL, CO2, GLUCOSE, BUN, CREATININE, CA)2021-03-31 11:14:28 Test Item Value Reference Range Interpretation Comments NA (test code = 130 mmol/L 135-145 L 0247449485) K (test code = 4.2 mmol/L 3.5-5.0 8372398711) CL (test code = 103 mmol/L 98-108 6093418086) CO2 TOTAL (test code = 22 mmol/L 23-31 L 7950728097) AGAP (test code = 2-16 9068202370) BUN (test code = 11 mg/dL 7-23 8802539549) GLUCOSE (test code = 83 mg/dL 70-110 4658047811) CREATININE (test code = 0.71 mg/dL 0.60-1.25 3097338616) CALCIUM (test code = 8.6 mg/dL 8.6-10.6 5881972245) eGFR (test code = mL/min/1.73m2 4442757971) POP (test code = POP) Association of [...] tests). Lab Interpretation Abnormal (test code = 17519-8) [facility] 11:14:28 Test Item Value Reference Range Interpretation Comments MAGNESIUM (test code = 9305137267) 1.8 mg/dL 1.7-2.4 Lab Interpretation (test code = Normal 46645-8) [facility] (NA, K, CL, CO2, GLUCOSE, BUN, CREATININE, CA)2021-03-31 11:14:28 Test Item Value Reference Range Interpretation Comments NA (test code = 130 mmol/L 135-145 L 2568295592) K (test code = 4.2 mmol/L 3.5-5.0 3639524541) CL (test code = 103 mmol/L 98-108 3281867113) CO2 TOTAL (test code = 22 mmol/L 23-31 L 9728385381) AGAP (test code = 2-16 6313997275) BUN (test code = 11 mg/dL 7-23 4609657652) GLUCOSE (test code = 83 mg/dL 70-110 0852535182) CREATININE (test code = 0.71 mg/dL 0.60-1.25 8687452792) CALCIUM (test code = 8.6 mg/dL 8.6-10.6 4531212329) eGFR (test code = mL/min/1.73m2 4609742622) POP (test code = POP) Association of [...] tests). Lab Interpretation Abnormal (test code = 35853-1) [facility] 11:14:28 Test Item Value Reference Range Interpretation Comments MAGNESIUM (test code = 7268094351) 1.8 mg/dL 1.7-2.4 Lab Interpretation (test code = Normal 75231-4) [facility] WITH [id number] 10:20:23 Test Item Value Reference Range Interpretation Comments WBC (test code = See_Comment H [Automated 3990-2) message] The system which generated this result [...] (test code = 57.5 fL 38.5-51.6 H 93147-5) RDW-CV (test code = 17.6 % 12.1-15.4 H 788-0) PLT (test code = See_Comment H [Automated 777-3) message] The system which generated this result transmit qing reference range : 150 - 328 10*3/ ?L. The reference range was not u sed to interpret th is result as normal/abnormal . MPV (test code = 9.2 fL 9.8-13.0 L 31692-0) NRBC/100 WBC (test See_Comment [Automat ed code = 6951906706) message] The system which generated this result transmit qing reference range : 0.0 - 10.0 /100 WBCs. The reference range was not used to interpret this result as normal/abnormal . NRBC x10^3 (test code <0.01 See_Comment [Auto mated = 4257885555) message] The system which generated this result transmit qing reference range : 10*3/?L. The reference range was not used to interpret this result as normal/abnormal . GRAN MAT (NEUT) % 83.6 % (test code = 770-8) IMM GRAN % (test code 0.60 % = 1273456205) LYMPH % (test code = 9.6 % 736-9) MONO % (test code = 4.8 % 5905-5) EOS % (test code = 1.1 % 713-8) BASO % (test code = 0.3 % 706-2) GRAN MAT x10^3(ANC) 11.90 10*3/uL 1.99-6.95 H (test code = 0706518352) IMM GRAN x10^3 (test 0.09 10*3/uL 0.00-0.06 H code = 4986647859) LYMPH x10^3 (test code 1.37 10*3/uL 1.09-3.23 = 731-0) MONO x10^3 (test code 0.68 10*3/uL 0.36-1.02 = 742-7) EOS x10^3 (test code = 0.15 10*3/uL 0.06-0.53 711-2) BASO x10^3 (test code 0.04 10*3/uL 0.01-0.09 = 704-7) Lab Interpretation Abnormal (test code = 23146-0) [facility] WITH [id number] 10:20:23 Test Item Value Reference Range Interpretation [...] (test code = 57.5 fL 38.5-51.6 H 89090-0) RDW-CV (test code = 17.6 % 12.1-15.4 H 788-0) PLT (test code = See_Comment H [Automated 777-3) message] The system which generated this result transmit qing reference range : 150 - 328 10*3/ ?L. The reference range was not u sed to interpret th is result as normal/abnormal . MPV (test code = 9.2 fL 9.8-13.0 L 38013-8) NRBC/100 WBC (test See_Comment [Automat ed code = 3350892212) message] The system which generated this result transmit qing reference range : 0.0 - 10.0 /100 WBCs. The reference range was not used to interpret this result as normal/abnormal . NRBC x10^3 (test code <0.01 See_Comment [Auto mated = 9449983695) message] The system which generated this result transmit qing reference range : 10*3/?L. The reference range was not used to interpret this result as normal/abnormal . GRAN MAT (NEUT) % 83.6 % (test code = 770-8) IMM GRAN % (test code 0.60 % = 8786983219) LYMPH % (test code = 9.6 % 736-9) MONO % (test code = 4.8 % 5905-5) EOS % (test code = 1.1 % 713-8) BASO % (test code = 0.3 % 706-2) GRAN MAT x10^3(ANC) 11.90 10*3/uL 1.99-6.95 H (test code = 2417947969) IMM GRAN x10^3 (test 0.09 10*3/uL 0.00-0.06 H code = 2438777061) LYMPH x10^3 (test code 1.37 10*3/uL 1.09-3.23 = 731-0) MONO x10^3 (test code 0.68 10*3/uL 0.36-1.02 = 742-7) EOS x10^3 (test code = 0.15 10*3/uL 0.06-0.53 711-2) BASO x10^3 (test code 0.04 10*3/uL 0.01-0.09 = 704-7) Lab Interpretation Abnormal (test code = 60943-4) [facility] GLUCOSE (AUTOMATED)2021-03-30 22:19:35 Test Item Value Reference Range Interpretation Comments POCT GLU (test code = 0734301463) 96 mg/dL 70-110 Lab Interpretation (test code = Normal 22862-1) [facility] GLUCOSE (AUTOMATED)2021-03-30 22:19:35 Test Item Value Reference Range Interpretation Comments POCT GLU (test code = 1785556064) 96 mg/dL 70-110 Lab Interpretation (test code = Normal 13833-4) [facility] GLUCOSE (AUTOMATED)2021-03-30 14:02:48 Test Item Value Reference Range Interpretation Comments POCT GLU (test code = 6413134506) 105 mg/dL 70-110 Lab Interpretation (test code = Normal 86091-5) [facility] GLUCOSE (AUTOMATED)2021-03-30 14:02:48 Test Item Value Reference Range Interpretation Comments POCT GLU (test code = 7981205250) 105 mg/dL 70-110 Lab Interpretation (test code = Normal 96626-0) [facility], [id number] 13:43:42 Test Item Value Reference Range Interpretation Comments MMA Serum/Plasma, 0.14 umol/L 0.00-0.40 INTERPRETI VE INFORMATION: Vitamin B12 MMA Serum/Plasm a, ? ? ? Status (test code ? = 03681-2) ?Vitamin B12 St atus This test was develo ped and its performance characteristics determined by [facility]. I t has not been cleared or approved by the [place] Food and Drug Administration. This test was performed i n a CLIA certified labor atory and is intended for clinical purposes.Perfor med By: [facility] [address] [place] [address] [id number] aboratory Director: Elena Mansfield MD [facility]ETH[facility]ALON[facility] AC[facility], [id number] 13:43:42 Test Item Value Reference Range Interpretation Comments MMA Serum/Plasma, 0.14 umol/L 0.00-0.40 INTERPRETI VE INFORMATION: Vitamin B12 MMA Serum/Plasm a, ? ? ? Status (test code ? = 52598-8) ?Vitamin B12 St atus This test was develo ped and its performance characteristics determined by [facility]. I t has not been cleared or approved by the [place] Food and Drug Administration. This test was performed i n a CLIA certified labor atory and is intended for clinical purposes.Perfor med By: TIFF [address] [place], [place] [address]P aboratory Director: Elena Mansfield MD [facility] METABOLIC PANEL (NA, K, CL, CO2, GLUCOSE, BUN, CREATININE, CA)2021-03-30 11:17:07 Test Item Value Reference Range Interpretation Comments NA (test code = 132 mmol/L 135-145 L 6665916591) K (test code = 4.1 mmol/L 3.5-5.0 8571117208) CL (test code = 105 mmol/L 98-108 9475182259) CO2 TOTAL (test code = 24 mmol/L 23-31 5644795339) AGAP (test code = 2-16 9497629241) BUN (test code = 12 mg/dL 7-23 1803195229) GLUCOSE (test code = 95 mg/dL 70-110 9323388785) CREATININE (test code = 0.67 mg/dL 0.60-1.25 3368997797) CALCIUM (test code = 8.4 mg/dL 8.6-10.6 L 6096847091) eGFR (test code = mL/min/1.73m2 2890241388) POP (test code = POP) Association of [...] tests). Lab Interpretation Abnormal (test code = 26451-0) [facility] 11:17:07 Test Item Value Reference Range Interpretation Comments MAGNESIUM (test code = 2753771557) 1.6 mg/dL 1.7-2.4 L Lab Interpretation (test code = Abnormal 10034-0) [facility] (NA, K, CL, CO2, GLUCOSE, BUN, CREATININE, CA)2021-03-30 11:17:07 Test Item Value Reference Range Interpretation Comments NA (test code = 132 mmol/L 135-145 L 9485828687) K (test code = 4.1 mmol/L 3.5-5.0 8550171215) CL (test code = 105 mmol/L 98-108 3295788611) CO2 TOTAL (test code = 24 mmol/L 23-31 9898125279) AGAP (test code = 2-16 8096778478) BUN (test code = 12 mg/dL 7-23 8826241976) GLUCOSE (test code = 95 mg/dL 70-110 9065521817) CREATININE (test code = 0.67 mg/dL 0.60-1.25 4277456110) CALCIUM (test code = 8.4 mg/dL 8.6-10.6 L 7270253695) eGFR (test code = mL/min/1.73m2 3000626504) POP (test code = POP) Association of [...] tests). Lab Interpretation Abnormal (test code = 91455-9) [facility] 11:17:07 Test Item Value Reference Range Interpretation Comments MAGNESIUM (test code = 4219549349) 1.6 mg/dL 1.7-2.4 L Lab Interpretation (test code = Abnormal 28277-0) [facility] WITH [id number] 11:03:06 Test Item Value Reference Range Interpretation Comments WBC (test code = See_Comment H [Automated 8089-2) message] The sy stem which generated this result transmitted reference range : 4.20 - 10.70 10*3/?L. The reference range was not used to interpret this result as normal/abnormal . RBC (test code = See_Comment L [Automated 548-8) message] The sy stem which generated this [...] (test code = 56.0 fL 38.5-51.6 H 09741-0) RDW-CV (test code = 17.9 % 12.1-15.4 H 788-0) PLT (test code = See_Comment H [Automated 777-3) message] The sy stem which generated this result transmitted reference range : 150 - 328 10*3/ ?L. The reference r jalen was not used to interpret this result as normal/abnormal . MPV (test code = 9.2 fL 9.8-13.0 L 04087-0) NRBC/100 WBC (test See_Comment [Automat ed code = 0714935598) message] The system which generated this result transmitted reference range : 0.0 - 10.0 /100 WBCs. The refer ence range was not u sed to interpret th is result as normal/abnormal . NRBC x10^3 (test code See_Comment [Auto mated = 7982813482) message] The s ystem which generated this result transmitted reference range : 10*3/?L. The reference range was not used to interpret this result as normal/abnormal . GRAN MAT (NEUT) % 75.7 % (test code = 770-8) IMM GRAN % (test code 1.00 % = 7617501496) LYMPH % (test code = 15.5 % 736-9) MONO % (test code = 5.3 % 5905-5) EOS % (test code = 2.0 % 713-8) BASO % (test code = 0.5 % 706-2) GRAN MAT x10^3(ANC) 9.81 10*3/uL 1.99-6.95 H (test code = 6924402485) IMM GRAN x10^3 (test 0.13 10*3/uL 0.00-0.06 H code = 9870748668) LYMPH x10^3 (test code 2.01 10*3/uL 1.09-3.23 = 731-0) MONO x10^3 (test code 0.69 10*3/uL 0.36-1.02 = 742-7) EOS x10^3 (test code = 0.26 10*3/uL 0.06-0.53 711-2) BASO x10^3 (test code 0.06 10*3/uL 0.01-0.09 = 704-7) Lab Interpretation Abnormal (test code = 88179-7) [facility] WITH [id number] 11:03:06 Test Item Value Reference Range Interpretation [...] (test code = 56.0 fL 38.5-51.6 H 75446-1) RDW-CV (test code = 17.9 % 12.1-15.4 H 788-0) PLT (test code = See_Comment H [Automated 777-3) message] The sy stem which generated this result transmitted reference range : 150 - 328 10*3/ ?L. The reference r jalen was not used to interpret this result as normal/abnormal . MPV (test code = 9.2 fL 9.8-13.0 L 86349-7) NRBC/100 WBC (test See_Comment [Automat ed code = 3499038507) message] The system which generated this result transmitted reference range : 0.0 - 10.0 /100 WBCs. The refer ence range was not u sed to interpret th is result as normal/abnormal . NRBC x10^3 (test code See_Comment [Auto mated = 0326735427) message] The s ystem which generated this result transmitted reference range : 10*3/?L. The reference range was not used to interpret this result as normal/abnormal . GRAN MAT (NEUT) % 75.7 % (test code = 770-8) IMM GRAN % (test code 1.00 % = 2959158223) LYMPH % (test code = 15.5 % 736-9) MONO % (test code = 5.3 % 5905-5) EOS % (test code = 2.0 % 713-8) BASO % (test code = 0.5 % 706-2) GRAN MAT x10^3(ANC) 9.81 10*3/uL 1.99-6.95 H (test code = 9424126084) IMM GRAN x10^3 (test 0.13 10*3/uL 0.00-0.06 H code = 2968063805) LYMPH x10^3 (test code 2.01 10*3/uL 1.09-3.23 = 731-0) MONO x10^3 (test code 0.69 10*3/uL 0.36-1.02 = 742-7) EOS x10^3 (test code = 0.26 10*3/uL 0.06-0.53 711-2) BASO x10^3 (test code 0.06 10*3/uL 0.01-0.09 = 704-7) Lab Interpretation Abnormal (test code = 84687-7) [facility] GLUCOSE (AUTOMATED)2021-03-29 22:21:18 Test Item Value Reference Range Interpretation Comments POCT GLU (test code = 6192301421) 130 mg/dL 70-110 H Lab Interpretation (test code = Abnormal 34583-1) [facility] GLUCOSE (AUTOMATED)2021-03-29 22:21:18 Test Item Value Reference Range Interpretation Comments POCT GLU (test code = 9100913325) 130 mg/dL 70-110 H Lab Interpretation (test code = Abnormal 41888-2) [facility] ANTI-XA, LOW MOLECULAR WEIGHT HEPARIN 2021-03-29 19:35:25 [...] administration. Lab Interpretation Abnormal (test code = 30807-5) [facility] ANTI-XA, LOW MOLECULAR WEIGHT HEPARIN 2021-03-29 19:35:25 [...] administration. Lab Interpretation Abnormal (test code = 76634-4) [facility] WITHOUT [id number] 18:48:40 Test Item Value Reference Range Interpretation Comments WBC (test code = 6690-2) See_Comment H [A utomated message] The system [employer] generated this result transmit qing reference range : 4.20 - 10.70 10*3/?L. The reference range was not used to interpret this result as normal/abnormal . RBC (test code = 789-8) See_Comment L [Au tomated message] The system [employer] generated this result transmit qing reference range [...] See_Comment H [Au tomated message] The system [facility] generated this result transmit qing reference range : 150 - 328 10*3/?L. The reference range was not used to interpret this result as normal/abnormal . MPV (test code = 9.4 fL 9.8-13.0 L 56107-5) RDW-CV (test code = 17.2 % 12.1-15.4 H 788-0) RDW-SD (test code = 53.2 fL 38.5-51.6 H 42708-1) NRBC x10^3 (test code = <0.01 See_Comment [Au tomated message] 6344764158) The system [employer] generated this result transmit qing reference range : 10*3/?L. The reference range was not used to interpret this result as normal/abnormal . NRBC/100 WBC (test code See_Comment [Au tomated message] = 7339517214) The system [facility] generated this result transmit qing reference range : 0.0 - 10.0 /100 WBC s. The reference r jalen was not used to interpret this result as normal/abnormal . IPF % (test code = 7178139110) Lab Interpretation (test Abnormal code = 68732-1) [facility] WITHOUT [id number] 18:48:40 Test Item Value Reference Range Interpretation Comments WBC (test code = 6690-2) See_Comment H [A utomated message] The system [facility] generated this result transmit qing reference range : 4.20 - 10.70 10*3/?L. The reference range was not used to interpret this result as normal/abnormal . RBC (test code = 789-8) See_Comment L [Au tomated message] The system [facility] generated this result transmit qing reference [...] See_Comment H [Au tomated message] The system [facility] [employer] generated this result transmit qing reference range : 150 - 328 10*3/?L. The reference range was not used to interpret this result as normal/abnormal . MPV (test code = 9.4 fL 9.8-13.0 L 53467-8) RDW-CV (test code = 17.2 % 12.1-15.4 H 788-0) RDW-SD (test code = 53.2 fL 38.5-51.6 H 79710-8) NRBC x10^3 (test code = <0.01 See_Comment [Au tomated message] 3270869731) The system [facility] generated this result transmit qing reference range : 10*3/?L. The reference range was not used to interpret this result as normal/abnormal . NRBC/100 WBC (test code See_Comment [Au tomated message] = 7474429267) The system [facility] generated this result transmit qing reference range : 0.0 - 10.0 /100 WBC s. The reference r jalen was not used to interpret this result as normal/abnormal . IPF % (test code = 9915205768) Lab Interpretation (test Abnormal code = 19659-8) [facility] GLUCOSE (AUTOMATED)2021-03-29 18:08:42 Test Item Value Reference Range Interpretation Comments POCT GLU (test code = 8962016573) 135 mg/dL 70-110 H Lab Interpretation (test code = Abnormal 85183-6) [facility] GLUCOSE (AUTOMATED)2021-03-29 18:08:42 Test Item Value Reference Range Interpretation Comments POCT GLU (test code = 0717872184) 135 mg/dL 70-110 H Lab Interpretation (test code = Abnormal 79565-9) [facility] Packed RBC (in units), 1 Units 2021-03-29 15:56:11 Test Item Value Reference Range Interpretation Comments Cross Match Result Compatible (test code = 4409) ISBT Blood Type Code (test code = 192566) Unit Blood Type (test A Pos code = 4410) Unit Number (test [id number] code = 4411) Blood Expiration Date & Time (test code = 244599) Status Information Issued (test code = 4412) Product Red Blood Cells Identification (test code = 4413) Product Code (test U6580R86 Performed at [facility] code = 4414) Laboratory Services [facility] Blood [address] [address]Rzrk Free: [phone] A No. [id number] [facility] Packed RBC (in units), 1 Units 2021-03-29 15:56:11 Test Item Value Reference Range Interpretation Comments Cross Match Result Compatible (test code = 4409) ISBT Blood Type Code (test code = 638581) Unit Blood Type (test A Pos code = 4410) Unit Number (test [id number] code = 4411) Blood Expiration Date & Time (test code = 913089) Status Information Issued (test code = 4412) Product Red Blood Cells Identification (test code = 4413) Product Code (test N3174I04 Performed at [facility] code = 4414) Laboratory Services [address] [address]Ckmt Free: [phone] A No. [id number] [facility] Packed RBC (in units), 1 Units 2021-03-29 15:56:11 Test Item Value Reference Range Interpretation Comments Cross Match Result Compatible (test code = 4409) ISBT Blood Type Code (test code = 259324) Unit Blood Type (test A Pos code = 4410) Unit Number (test [id number] code = 4411) Blood Expiration Date & Time (test code = 423522) Status Information Issued (test code = 4412) Product Red Blood Cells Identification (test code = 4413) Product Code (test [id number] Performed at [facility] code = 4414) Laboratory Services [facility] Blood [address] [address]Uplx Free: [phone] A No. [id number] [facility] GLUCOSE (AUTOMATED)2021-03-29 13:25:05 Test Item Value Reference Range Interpretation Comments POCT GLU (test code = 4600546218) 115 mg/dL 70-110 H Lab Interpretation (test code = Abnormal 05050-6) [facility] GLUCOSE (AUTOMATED)2021-03-29 13:25:05 Test Item Value Reference Range Interpretation Comments POCT GLU (test code = 4097034826) 115 mg/dL 70-110 H Lab Interpretation (test code = Abnormal 82801-8) [facility] GLUCOSE (AUTOMATED)2021-03-29 13:25:05 Test Item Value Reference Range Interpretation Comments POCT GLU (test code = 2935886632) 115 mg/dL 70-110 H Lab Interpretation (test code = Abnormal 89927-4) [facility] Test Item Value Reference Range Interpretation Comments MAGNESIUM (test code = 4075971054) 1.7 mg/dL 1.7-2.4 Lab Interpretation (test code = Normal 83124-8) [facility] 13:08:09 Test Item Value Reference Range Interpretation Comments MAGNESIUM (test code = 3626716077) 1.7 mg/dL 1.7-2.4 Lab Interpretation (test code = Normal 80524-1) [facility] Test Item Value Reference Range Interpretation Comments MAGNESIUM (test code = 0357830207) 1.7 mg/dL 1.7-2.4 Lab Interpretation (test code = Normal 85663-9) [facility] (NA, K, CL, CO2, GLUCOSE, BUN, CREATININE, CA)2021-03-29 12:34:45 Test Item Value Reference Range Interpretation Comments NA (test code = 133 mmol/L 135-145 L 9803950650) K (test code = 4.1 mmol/L 3.5-5.0 5491492190) CL (test code = 106 mmol/L 98-108 2356971700) CO2 TOTAL (test code = 23 mmol/L 23-31 4416041088) AGAP (test code = 2-16 8318295105) BUN (test code = 17 mg/dL 7-23 1525204247) GLUCOSE (test code = 106 mg/dL 70-110 7534977636) CREATININE (test code = 0.73 mg/dL 0.60-1.25 3080150048) CALCIUM (test code = 8.2 mg/dL 8.6-10.6 L 5775782589) eGFR (test code = mL/min/1.73m2 0511825765) POP (test code = POP) Association of [...] tests). Lab Interpretation Abnormal (test code = 77495-0) [facility] METABOLIC PANEL (NA, K, CL, CO2, GLUCOSE, BUN, CREATININE, CA)2021-03-29 12:34:45 Test Item Value Reference Range Interpretation Comments NA (test code = 133 mmol/L 135-145 L 2327233999) K (test code = 4.1 mmol/L 3.5-5.0 6187149545) CL (test code = 106 mmol/L 98-108 2344020056) CO2 TOTAL (test code = 23 mmol/L 23-31 9791113089) AGAP (test code = 2-16 7547337179) BUN (test code = 17 mg/dL 7-23 5595258817) GLUCOSE (test code = 106 mg/dL 70-110 0613005922) CREATININE (test code = 0.73 mg/dL 0.60-1.25 6891635899) CALCIUM (test code = 8.2 mg/dL 8.6-10.6 L 2023907611) eGFR (test code = mL/min/1.73m2 5486991962) POP (test code = POP) Association of [...] tests). Lab Interpretation Abnormal (test code = 83807-0) [facility] (NA, K, CL, CO2, GLUCOSE, BUN, CREATININE, CA)2021-03-29 12:34:45 Test Item Value Reference Range Interpretation Comments NA (test code = 133 mmol/L 135-145 L 7337395953) K (test code = 4.1 mmol/L 3.5-5.0 6121298672) CL (test code = 106 mmol/L 98-108 0960490799) CO2 TOTAL (test code = 23 mmol/L 23-31 0863894859) AGAP (test code = 2-16 2113326062) BUN (test code = 17 mg/dL 7-23 4768139879) GLUCOSE (test code = 106 mg/dL 70-110 1677276141) CREATININE (test code = 0.73 mg/dL 0.60-1.25 1052593382) CALCIUM (test code = 8.2 mg/dL 8.6-10.6 L 4773102715) eGFR (test code = mL/min/1.73m2 4753906398) POP (test code = POP) Association of [...] tests). Lab Interpretation Abnormal (test code = 94164-2) [facility] WITH [id number] 12:03:02 Test Item Value Reference Range Interpretation [...] (test code = 54.0 fL 38.5-51.6 H 31863-3) RDW-CV (test code = 16.9 % 12.1-15.4 H 788-0) PLT (test code = See_Comment H [Automated 777-3) message] The system which generated this result transmit qing reference range : 150 - 328 10*3/ ?L. The reference range was not u sed to interpret th is result as normal/abnormal . MPV (test code = 9.1 fL 9.8-13.0 L 37387-4) NRBC/100 WBC (test See_Comment [Automat ed code = 8732255786) message] The system which generated this result transmit qing reference range : 0.0 - 10.0 /100 WBCs. The reference range was not used to interpret this result as normal/abnormal . NRBC x10^3 (test code See_Comment [Auto mated = 0966235244) message] The system which generated this result transmit qing reference range : 10*3/?L. The reference range was not used to interpret this result as normal/abnormal . GRAN MAT (NEUT) % 78.0 % (test code = 770-8) IMM GRAN % (test code 0.60 % = 7480843651) LYMPH % (test code = 14.3 % 736-9) MONO % (test code = 5.5 % 5905-5) EOS % (test code = 1.2 % 713-8) BASO % (test code = 0.4 % 706-2) GRAN MAT x10^3(ANC) 11.69 10*3/uL 1.99-6.95 H (test code = 3110649725) IMM GRAN x10^3 (test 0.09 10*3/uL 0.00-0.06 H code = 8507996567) LYMPH x10^3 (test code 2.14 10*3/uL 1.09-3.23 = 731-0) MONO x10^3 (test code 0.82 10*3/uL 0.36-1.02 = 742-7) EOS x10^3 (test code = 0.18 10*3/uL 0.06-0.53 711-2) BASO x10^3 (test code 0.06 10*3/uL 0.01-0.09 = 704-7) Lab Interpretation Abnormal (test code = 78885-0) [facility] WITH [id number] 12:03:02 Test Item Value Reference Range Interpretation Comments WBC (test code = See_Comment H [Automated 8190-2) message] The system which generated this result transmit qing reference range : 4.20 - 10.70 10*3/?L. The reference range was not used to interpret this result as normal/abnormal . RBC (test code = See_Comment L [Automated 979-8) message] The system which generated this result [...] (test code = 54.0 fL 38.5-51.6 H 83104-5) RDW-CV (test code = 16.9 % 12.1-15.4 H 788-0) PLT (test code = See_Comment H [Automated 777-3) message] The system which generated this result transmit qing reference range : 150 - 328 10*3/ ?L. The reference range was not u sed to interpret th is result as normal/abnormal . MPV (test code = 9.1 fL 9.8-13.0 L 07225-0) NRBC/100 WBC (test See_Comment [Automat ed code = 7061124455) message] The system which generated this result transmit qing reference range : 0.0 - 10.0 /100 WBCs. The reference range was not used to interpret this result as normal/abnormal . NRBC x10^3 (test code See_Comment [Auto mated = 6574014097) message] The system which generated this result transmit qing reference range : 10*3/?L. The reference range was not used to interpret this result as normal/abnormal . GRAN MAT (NEUT) % 78.0 % (test code = 770-8) IMM GRAN % (test code 0.60 % = 3184429919) LYMPH % (test code = 14.3 % 736-9) MONO % (test code = 5.5 % 5905-5) EOS % (test code = 1.2 % 713-8) BASO % (test code = 0.4 % 706-2) GRAN MAT x10^3(ANC) 11.69 10*3/uL 1.99-6.95 H (test code = 9183543988) IMM GRAN x10^3 (test 0.09 10*3/uL 0.00-0.06 H code = 6062019039) LYMPH x10^3 (test code 2.14 10*3/uL 1.09-3.23 = 731-0) MONO x10^3 (test code 0.82 10*3/uL 0.36-1.02 = 742-7) EOS x10^3 (test code = 0.18 10*3/uL 0.06-0.53 711-2) BASO x10^3 (test code 0.06 10*3/uL 0.01-0.09 = 704-7) Lab Interpretation Abnormal (test code = 77270-2) [facility] WITH [id number] 12:03:02 Test Item Value Reference Range Interpretation [...] (test code = 54.0 fL 38.5-51.6 H 20084-3) RDW-CV (test code = 16.9 % 12.1-15.4 H 788-0) PLT (test code = See_Comment H [Automated 777-3) message] The system which generated this result transmit qing reference range : 150 - 328 10*3/ ?L. The reference range was not u sed to interpret th is result as normal/abnormal . MPV (test code = 9.1 fL 9.8-13.0 L 45083-1) NRBC/100 WBC (test See_Comment [Automat ed code = 3888696071) message] The system which generated this result transmit qnig reference range : 0.0 - 10.0 /100 WBCs. The reference range was not used to interpret this result as normal/abnormal . NRBC x10^3 (test code See_Comment [Auto mated = 9444255021) message] The system which generated this result transmit qing reference range : 10*3/?L. The reference range was not used to interpret this result as normal/abnormal . GRAN MAT (NEUT) % 78.0 % (test code = 770-8) IMM GRAN % (test code 0.60 % = 6810077504) LYMPH % (test code = 14.3 % 736-9) MONO % (test code = 5.5 % 5905-5) EOS % (test code = 1.2 % 713-8) BASO % (test code = 0.4 % 706-2) GRAN MAT x10^3(ANC) 11.69 10*3/uL 1.99-6.95 H (test code = 7907974416) IMM GRAN x10^3 (test 0.09 10*3/uL 0.00-0.06 H code = 5223670733) LYMPH x10^3 (test code 2.14 10*3/uL 1.09-3.23 = 731-0) MONO x10^3 (test code 0.82 10*3/uL 0.36-1.02 = 742-7) EOS x10^3 (test code = 0.18 10*3/uL 0.06-0.53 711-2) BASO x10^3 (test code 0.06 10*3/uL 0.01-0.09 = 704-7) Lab Interpretation Abnormal (test code = 47515-9) [facility] WITHOUT [id number] 23:07:41 Test Item Value Reference Range Interpretation Comments WBC (test code = 6690-2) See_Comment H [A utomated message] The [facility] generated this result transmit qing reference range : 4.20 - 10.70 10*3/?L. The reference range was not used to interpret this result as normal/abnormal . RBC (test code = 789-8) See_Comment L [Au tomated message] The system [employer] generated this result transmit qing reference range [...] See_Comment H [Au tomated message] The system [employer] generated this result transmit qing reference range : 150 - 328 10*3/?L. The reference range was not used to interpret this result as normal/abnormal . MPV (test code = 9.2 fL 9.8-13.0 L 54267-2) RDW-CV (test code = 16.3 % 12.1-15.4 H 788-0) RDW-SD (test code = 50.1 fL 38.5-51.6 38911-4) NRBC x10^3 (test code = <0.01 See_Comment [Au tomated message] 8953575626) The system [employer] generated this result transmit qing reference range : 10*3/?L. The reference range was not used to interpret this result as normal/abnormal . NRBC/100 WBC (test code See_Comment [Au tomated message] = 1560674207) The system [facility] generated this result transmit qing reference range : 0.0 - 10.0 /100 WBC s. The reference r jalen was not used to interpret this result as normal/abnormal . IPF % (test code = 2214649065) Lab Interpretation (test Abnormal code = 85347-9) [facility] WITHOUT [id number] 23:07:41 Test Item Value Reference Range Interpretation Comments WBC (test code = 6690-2) See_Comment H [A utomated message] The system [facility] generated this result transmit qing reference range : 4.20 - 10.70 10*3/?L. The reference range was not used to interpret this result as normal/abnormal . RBC (test code = 789-8) See_Comment L [Au tomated message] The system [facility] generated this result transmit qing reference [...] See_Comment H [Au tomated message] The system [facility] generated this result transmit qing reference range : 150 - 328 10*3/?L. The reference range was not used to interpret this result as normal/abnormal . MPV (test code = 9.2 fL 9.8-13.0 L 18423-9) RDW-CV (test code = 16.3 % 12.1-15.4 H 788-0) RDW-SD (test code = 50.1 fL 38.5-51.6 83645-6) NRBC x10^3 (test code = <0.01 See_Comment [Au tomated message] 3635159893) The system [facility] generated this result transmit qing reference range : 10*3/?L. The reference range was not used to interpret this result as normal/abnormal . NRBC/100 WBC (test code See_Comment [Au tomated message] = 1705951542) The system [facility] generated this result transmit qing reference range : 0.0 - 10.0 /100 WBC s. The reference r jalen was not used to interpret this result as normal/abnormal . IPF % (test code = 0991325001) Lab Interpretation (test Abnormal code = 26289-4) [facility] WITHOUT [id number] 23:07:41 Test Item Value Reference Range Interpretation Comments WBC (test code = 6690-2) See_Comment H [A utomated message] The system [employer] generated this result transmit qing reference range : 4.20 - 10.70 10*3/?L. The reference range was not used to interpret this result as normal/abnormal . RBC (test code = 789-8) See_Comment L [Au tomated message] The system [employer] generated this result transmit qing reference range [...] See_Comment H [Au tomated message] The system [employer] generated this result transmit qing reference range : 150 - 328 10*3/?L. The reference range was not used to interpret this result as normal/abnormal . MPV (test code = 9.2 fL 9.8-13.0 L 01080-4) RDW-CV (test code = 16.3 % 12.1-15.4 H 788-0) RDW-SD (test code = 50.1 fL 38.5-51.6 42603-8) NRBC x10^3 (test code = <0.01 See_Comment [Au tomated message] 7071888992) The system [employer] generated this result transmit qing reference range : 10*3/?L. The reference range was not used to interpret this result as normal/abnormal . NRBC/100 WBC (test code See_Comment [Au tomated message] = 5225704205) The system [facility] generated this result transmit qing reference range : 0.0 - 10.0 /100 WBC s. The reference r jalen was not used to interpret this result as normal/abnormal . IPF % (test code = 8932850145) Lab Interpretation (test Abnormal code = 88701-9) [facility] GLUCOSE (AUTOMATED)2021-03-28 22:17:56 Test Item Value Reference Range Interpretation Comments POCT GLU (test code = 8974869943) 111 mg/dL 70-110 H Lab Interpretation (test code = Abnormal 01486-0) [facility] GLUCOSE (AUTOMATED)2021-03-28 22:17:56 Test Item Value Reference Range Interpretation Comments POCT GLU (test code = 0017508201) 111 mg/dL 70-110 H Lab Interpretation (test code = Abnormal 78917-9) [facility] GLUCOSE (AUTOMATED)2021-03-28 17:09:55 Test Item Value Reference Range Interpretation Comments POCT GLU (test code = 9518429332) 112 mg/dL 70-110 H Lab Interpretation (test code = Abnormal 45099-2) [facility] GLUCOSE (AUTOMATED)2021-03-28 17:09:55 Test Item Value Reference Range Interpretation Comments POCT GLU (test code = 4961547155) 112 mg/dL 70-110 H Lab Interpretation (test code = Abnormal 73632-2) [facility] GLUCOSE (AUTOMATED)2021-03-28 13:13:42 Test Item Value Reference Range Interpretation Comments POCT GLU (test code = 2554124396) 90 mg/dL 70-110 Lab Interpretation (test code = Normal 23503-9) [facility] GLUCOSE (AUTOMATED)2021-03-28 13:13:42 Test Item Value Reference Range Interpretation Comments POCT GLU (test code = 3936804486) 90 mg/dL 70-110 Lab Interpretation (test code = Normal 41920-1) [facility] METABOLIC PANEL (NA, K, CL, CO2, GLUCOSE, BUN, CREATININE, CA)2021-03-28 11:25:09 Test Item Value Reference Range Interpretation Comments NA (test code = 135 mmol/L 135-145 4307658640) K (test code = 4.0 mmol/L 3.5-5.0 2041062334) CL (test code = 107 mmol/L 98-108 7368532929) CO2 TOTAL (test code = 23 mmol/L 23-31 2054456982) AGAP (test code = 2-16 2350265263) BUN (test code = 20 mg/dL 7-23 4213942640) GLUCOSE (test code = 82 mg/dL 70-110 8741422992) CREATININE (test code = 0.76 mg/dL 0.60-1.25 7477450489) CALCIUM (test code = 8.3 mg/dL 8.6-10.6 L 7501794233) eGFR (test code = mL/min/1.73m2 0073526540) POP (test code = POP) Association of [...] tests). Lab Interpretation Abnormal (test code = 33894-7) [facility] METABOLIC PANEL (NA, K, CL, CO2, GLUCOSE, BUN, CREATININE, CA)2021-03-28 11:25:09 Test Item Value Reference Range Interpretation Comments NA (test code = 135 mmol/L 135-145 0489608627) K (test code = 4.0 mmol/L 3.5-5.0 7348767202) CL (test code = 107 mmol/L 98-108 8078584148) CO2 TOTAL (test code = 23 mmol/L 23-31 4438254792) AGAP (test code = 2-16 0394824598) BUN (test code = 20 mg/dL 7-23 1393550280) GLUCOSE (test code = 82 mg/dL 70-110 4189916456) CREATININE (test code = 0.76 mg/dL 0.60-1.25 8536548180) CALCIUM (test code = 8.3 mg/dL 8.6-10.6 L 1432938795) eGFR (test code = mL/min/1.73m2 3247846819) POP (test code = POP) Association of [...] tests). Lab Interpretation Abnormal (test code = 29193-8) [facility] [id number] 11:10:29 Test Item Value Reference Range Interpretation Comments APTT Patient (test code = See_Comment [ Automated message] 3173-2) The system [employer] generated this result transmitted ref erence range: 26 - 36 Seconds. The re ference range was not u sed to interpret this result as normal/abnor mal. Lab Interpretation (test Normal code = 25558-0) [facility] [id number] 11:10:29 Test Item Value Reference Range Interpretation Comments APTT Patient (test code = See_Comment [ Automated message] 3173-2) The system [employer] generated this result transmitted ref erence range: 26 - 36 Seconds. The re ference range was not u sed to interpret this result as normal/abnor mal. Lab Interpretation (test Normal code = 48809-9) [facility] [id number] 11:10:29 Test Item Value Reference Range Interpretation Comments APTT Patient (test code = See_Comment [ Automated message] 3173-2) The system [employer] generated this result transmitted ref erence range: 26 - 36 Seconds. The re ference range was not u sed to interpret this result as normal/abnor mal. Lab Interpretation (test Normal code = 79842-7) [facility] / [id number] 11:10:28 Test Item Value Reference Range Interpretation Comments PROTIME PATIENT (test See_Comment H [Auto mated message] code = 5964-2) The system [employer] generated this result transmitted ref erence range: 10.1 - 1 2.6 Seconds. The reference range was not used to int erpret this result as normal/abnormal . INR (test code = 6301-6) Nor mal INR <1.1; Warfarin Therap eutic range 2.0 to 3. 0 or 2.5 to 3.5, dep ending upon the indica tions. Lab Interpretation (test Abnormal code = 17431-4) [facility] / [id number] 11:10:28 Test Item Value Reference Range Interpretation Comments PROTIME PATIENT (test See_Comment H [Auto mated message] code = 5964-2) The system [employer] generated this result transmitted ref erence range: 10.1 - 1 2.6 Seconds. The reference range was not used to int erpret this result as normal/abnormal . INR (test code = 6301-6) Nor mal INR <1.1; Warfarin Therap eutic range 2.0 to 3. 0 or 2.5 to 3.5, dep ending upon the indica tions. Lab Interpretation (test Abnormal code = 45429-5) [facility] / [id number] 11:10:28 Test Item Value Reference Range Interpretation Comments PROTIME PATIENT (test See_Comment H [Auto mated message] code = 5964-2) The system [employer] generated this result transmitted ref erence range: 10.1 - 1 2.6 Seconds. The reference range was not used to int erpret this result as normal/abnormal . INR (test code = 6301-6) Nor mal INR <1.1; Warfarin Therap eutic range 2.0 to 3. 0 or 2.5 to 3.5, dep ending upon the indica tions. Lab Interpretation (test Abnormal code = 78574-8) [facility] HospitalCBC WITHOUT [id number] 11:00:28 Test Item Value Reference Range Interpretation Comments WBC (test code = 6690-2) See_Comment H [A utomated message] The system [employer] generated this result transmit qing reference range : 4.20 - 10.70 10*3/?L. The reference range was not used to interpret this result as normal/abnormal . RBC (test code = 789-8) See_Comment L [Au tomated message] The system [employer] generated this result transmit qing reference range [...] See_Comment H [Au tomated message] The system [facility] generated this result transmit qing reference range : 150 - 328 10*3/?L. The reference range was not used to interpret this result as normal/abnormal . MPV (test code = 9.1 fL 9.8-13.0 L 46462-1) RDW-CV (test code = 15.4 % 12.1-15.4 788-0) RDW-SD (test code = 49.9 fL 38.5-51.6 36183-4) NRBC x10^3 (test code = See_Comment [Au tomated message] 4491962650) The system [facility] generated this result transmit qing reference range : 10*3/?L. The reference range was not used to interpret this result as normal/abnormal . NRBC/100 WBC (test code See_Comment [Au tomated message] = 2090923426) The system [facility] generated this result transmit qing reference range : 0.0 - 10.0 /100 WBC s. The reference r jalen was not used to interpret this result as normal/abnormal . IPF % (test code = 7269238060) Lab Interpretation (test Abnormal code = 33575-7) [facility] WITHOUT [id number] 11:00:28 Test Item Value Reference Range Interpretation Comments WBC (test code = 6690-2) See_Comment H [A utomated message] The system [facility] generated this result transmit qing reference range : 4.20 - 10.70 10*3/?L. The reference range was not used to interpret this result as normal/abnormal . RBC (test code = 789-8) See_Comment L [Au tomated message] The system [facility] generated this result transmit qing reference [...] See_Comment H [Au tomated message] The system [facility] generated this result transmit qing reference range : 150 - 328 10*3/?L. The reference range was not used to interpret this result as normal/abnormal . MPV (test code = 9.1 fL 9.8-13.0 L 41520-8) RDW-CV (test code = 15.4 % 12.1-15.4 788-0) RDW-SD (test code = 49.9 fL 38.5-51.6 21893-1) NRBC x10^3 (test code = See_Comment [Au tomated message] 7653537719) The system [facility] generated this result transmit qing reference range : 10*3/?L. The reference range was not used to interpret this result as normal/abnormal . NRBC/100 WBC (test code See_Comment [Au tomated message] = 8253796055) The system [facility] generated this result transmit qing reference range : 0.0 - 10.0 /100 WBC s. The reference r jalen was not used to interpret this result as normal/abnormal . IPF % (test code = 1129055566) Lab Interpretation (test Abnormal code = 58392-8) [facility] Packed RBC (in units), 1 Units 2021-03-28 04:56:39 Test Item Value Reference Range Interpretation Comments Cross Match Result Compatible (test code = 4409) ISBT Blood Type Code (test code = 968407) Unit Blood Type (test A Pos code = 4410) Unit Number (test [id number] code = 4411) Blood Expiration Date & Time (test code = 933706) Status Information Issued (test code = 4412) Product Red Blood Cells Identification (test code = 4413) Product Code (test J9589I08 Performed at [facility] code = 4414) Laboratory Services - [facility] Blood [address] [place] [address]Ofpc Free: [phone] A No. [id number] [facility] HospitalPrep[facility] Packed RBC (in units), 1 Units 2021-03-28 04:56:39 Test Item Value Reference Range Interpretation Comments Cross Match Result Compatible (test code = 4409) ISBT Blood Type Code (test code = 315751) Unit Blood Type (test A Pos code = 4410) Unit Number (test [id number] code = 4411) Blood Expiration Date & Time (test code = 411820) Status Information Issued (test code = 4412) Product Red Blood Cells Identification (test code = 4413) Product Code (test [id number] Performed at [facility] code = 4414) Laboratory Services - [facility] Blood [address] [place] [address]Woxq Free: [phone] A No. [id number] [facility] HospitalCB WITHOUT [id number] 03:47:19 Test Item Value Reference Range Interpretation Comments WBC (test code = 6690-2) See_Comment H [A utomated message] The system [employer] generated this result transmit qing reference range : 4.20 - 10.70 10*3/?L. The reference range was not used to interpret this result as normal/abnormal . RBC (test code = 789-8) See_Comment L [Au tomated message] The system [employer] generated this result transmit qing reference range [...] See_Comment H [Au tomated message] The system [facility] generated this result transmit qing reference range : 150 - 328 10*3/?L. The reference range was not used to interpret this result as normal/abnormal . MPV (test code = 9.0 fL 9.8-13.0 L 96602-2) RDW-CV (test code = 15.5 % 12.1-15.4 H 788-0) RDW-SD (test code = 51.8 fL 38.5-51.6 H 88101-8) NRBC x10^3 (test code = See_Comment [Au tomated message] [id number]) The system [facility] generated this result transmit qing reference range : 10*3/?L. The reference range was not used to interpret this result as normal/abnormal . NRBC/100 WBC (test code See_Comment [Au tomated message] = 8919467363) The system [facility] generated this result transmit qing reference range : 0.0 - 10.0 /100 WBC s. The reference r jalen was not used to interpret this result as normal/abnormal . IPF % (test code = 8037538190) Lab Interpretation (test Abnormal code = 99825-7) [facility] WITHOUT [id number] 03:47:19 Test Item Value Reference Range Interpretation Comments WBC (test code = 6690-2) See_Comment H [A utomated message] The system [facility] generated this result transmit qing reference range : 4.20 - 10.70 10*3/?L. The reference range was not used to interpret this result as normal/abnormal . RBC (test code = 789-8) See_Comment L [Au tomated message] The system [facility] generated this result transmit qing reference [...] See_Comment H [Au tomated message] The system [employer] generated this result transmit qing reference range : 150 - 328 10*3/?L. The reference range was not used to interpret this result as normal/abnormal . MPV (test code = 9.0 fL 9.8-13.0 L 54911-2) RDW-CV (test code = 15.5 % 12.1-15.4 H 788-0) RDW-SD (test code = 51.8 fL 38.5-51.6 H 59072-3) NRBC x10^3 (test code = See_Comment [Au tomated message] 3857118574) The system [employer] generated this result transmit qing reference range : 10*3/?L. The reference range was not used to interpret this result as normal/abnormal . NRBC/100 WBC (test code See_Comment [Au tomated message] = 9533244670) [facility] generated this result transmit qing reference range : 0.0 - 10.0 /100 WBC s. The reference r jalen was not used to interpret this result as normal/abnormal . IPF % (test code = 6266446448) Lab Interpretation (test Abnormal code = 29626-0) [facility] CONSULT [id number] 00:38:08 LEUKOCYTOSIS WITH ABSOLUTE NEUTROPHILIA. NORMOCYTIC NORMOCHROMIC ANEMIA. THROMBOCYTOSIS.[facility] CONSULT INTERPRETATION 2021-03-28 00:38:08LEUKOCYTOSIS WITH ABSOLUTE NEUTROPHILIA. NORMOCYTIC NORMOCHROMIC ANEMIA. THROMBOCYTOSIS.[facility] CONSULT [id number] 00:38:08LEUKOCYTOSIS WITH ABSOLUTE NEUTROPHILIA. NORMOCYTIC NORMOCHROMIC ANEMIA. THROMBOCYTOSIS.[facility] WITHOUT [id number] 22:31:43 Test Item Value Reference Range Interpretation Comments WBC (test code = 6690-2) See_Comment H [A utomated message] The system [employer] generated this result transmit qing reference range : 4.20 - 10.70 10*3/?L. The reference range was not used to interpret this result as normal/abnormal . RBC (test code = 789-8) See_Comment L [Au tomated message] The system [employer] generated this result transmit qing reference range [...] See_Comment H [Au tomated message] The system [facility] generated this result transmit qing reference range : 150 - 328 10*3/?L. The reference range was not used to interpret this result as normal/abnormal . MPV (test code = 9.4 fL 9.8-13.0 L 64649-7) RDW-CV (test code = 15.4 % 12.1-15.4 788-0) RDW-SD (test code = 52.7 fL 38.5-51.6 H 00064-0) NRBC x10^3 (test code = See_Comment [Au tomated message] 7832618407) The system [employer] generated this result transmit qing reference range : 10*3/?L. The reference range was not used to interpret this result as normal/abnormal . NRBC/100 WBC (test code See_Comment [Au tomated message] = 1749106833) The system [facility] generated this result transmit qing reference range : 0.0 - 10.0 /100 WBC s. The reference r jalen was not used to interpret this result as normal/abnormal . IPF % (test code = 5195364806) Lab Interpretation (test Abnormal code = 53199-6) [facility] WITHOUT [id number] 22:31:43 Test Item Value Reference Range Interpretation Comments WBC (test code = 6690-2) See_Comment H [A utomated message] The system [employer] generated this result transmit qing reference range : 4.20 - 10.70 10*3/?L. The reference range was not used to interpret this result as normal/abnormal . RBC (test code = 789-8) See_Comment L [Au tomated message] The system [facility] generated this result transmit qing reference [...] See_Comment H [Au tomated message] The system [facility] generated this result transmit qing reference range : 150 - 328 10*3/?L. The reference range was not used to interpret this result as normal/abnormal . MPV (test code = 9.4 fL 9.8-13.0 L 94864-1) RDW-CV (test code = 15.4 % 12.1-15.4 788-0) RDW-SD (test code = 52.7 fL 38.5-51.6 H 14532-3) NRBC x10^3 (test code = See_Comment [Au tomated message] 5119971734) The system [employer] generated this result transmit qing reference range : 10*3/?L. The reference range was not used to interpret this result as normal/abnormal . NRBC/100 WBC (test code See_Comment [Au tomated message] = 6258045271) The system [facility] generated this result transmit qing reference range : 0.0 - 10.0 /100 WBC s. The reference r jalen was not used to interpret this result as normal/abnormal . IPF % (test code = 4452592026) Lab Interpretation (test Abnormal code = 41341-0) [facility] GLUCOSE (AUTOMATED)2021-03-27 22:21:31 Test Item Value Reference Range Interpretation Comments POCT GLU (test code = 8225339722) 133 mg/dL 70-110 H Lab Interpretation (test code = Abnormal 91469-2) [facility] GLUCOSE (AUTOMATED)2021-03-27 22:21:31 Test Item Value Reference Range Interpretation Comments POCT GLU (test code = 3532540611) 133 mg/dL 70-110 H Lab Interpretation (test code = Abnormal 32191-8) [facility] [id number] 21:30:09 Test Item Value Reference Range Interpretation Comments JIM (test code = Negative Negative 8563600563) POP (test code = POP) Negative - [...] separately. Lab Interpretation (test Normal code = 83343-1) [facility] [id number] 21:30:09 Test Item Value Reference Range Interpretation Comments JIM (test code = Negative Negative 6557805109) POP (test code = POP) Negative - No Anti-Nuclear Antibodies detected by IFA.Positive - JIM IFA screen performed with a 1:80 dilution in adults and a 1:40 dilution in pediatrics. Any JIM "Positive" will have titer performed and reported separately.Negative - No Anti-Nuclear Antibodies detected by IFA.Positive - IJM IFA screen performed with a 1:80 dilution in adults and a 1:40 dilution in pediatrics. Any JIM "Positive" will have titer performed and reported separately. Lab Interpretation (test Normal code = 59797-5) [facility]ODY [id number] 21:30:09 Test Item Value Reference Range Interpretation Comments JIM (test code = Negative Negative 0496789830) POP (test code = POP) Negative - [...] separately. Lab Interpretation (test Normal code = 38476-2) [facility] ONLY - SYPHILIS [id number] 18:20:12 Test Item Value Reference Range Interpretation Comments Syphilis IgG/IgM (test Non-reactive Non-reactive code = 31147-7) POP (test code = POP) Non-reactive - No serologic evidence of T. pallidum infection. Cannot exclude incubating or early syphilis. Submit a second specimen in 2-4 weeks if syphilis is clinically suspected. Equivocal - Further testing to follow. Reactive - Further testing to follow. Lab Interpretation (test Normal code = 22765-5) [facility] ONLY - SYPHILIS [id number] 18:20:12 Test Item Value Reference Range Interpretation Comments Syphilis IgG/IgM (test Non-reactive Non-reactive code = 79986-4) POP (test code = POP) Non-reactive - No serologic evidence of T. pallidum infection. Cannot exclude incubating or early syphilis. Submit a second specimen in 2-4 weeks if syphilis is clinically suspected. Equivocal - Further testing to follow. Reactive - Further testing to follow. Lab Interpretation (test Normal code = 84449-4) [facility] ONLY - SYPHILIS [id number] 18:20:12 Test Item Value Reference Range Interpretation Comments Syphilis IgG/IgM (test Non-reactive Non-reactive code = 22359-5) POP (test code = POP) Non-reactive - No serologic evidence of T. pallidum infection. Cannot exclude incubating or early syphilis. Submit a second specimen in 2-4 weeks if syphilis is clinically suspected. Equivocal - Further testing to follow. Reactive - Further testing to follow. Lab Interpretation (test Normal code = 92105-1) [facility] - ONCE [id number] 16:53:08 Test Item Value Reference Range Interpretation Comments ABO & RH (test code A POSITIVE Performe d at [facility] = 20) Laboratory Serv [facility] Blood [facility] [place] [address] s [address]Luea Free: [phone] A No. [id number] IAT (test code = Negative Performed a t [facility] 1185) Laboratory [facility] Blood [facility] [address] [place] [address] s [address]Oght Free: [phone] A No. [id number] [facility] - ONCE [id number] 16:53:08 Test Item Value Reference Range Interpretation Comments ABO & RH (test code A POSITIVE Performe d at [facility] = 20) Laboratory [facility] Blood [address] s [address]Otfy Free: [phone] A No. [id number] IAT (test code = Negative Performed a t [facility] 1185) Laboratory [facility] Blood [address] s [address]Nayx Free: [phone] A No. [id number] [facility] - ONCE [id number] 16:53:08 Test Item Value Reference Range Interpretation Comments ABO & RH (test code A POSITIVE Performe d at [facility] = 20) Laboratory [facility] Blood [address] s [address]Telh Free: [phone] A No. [id number] IAT (test code = Negative Performed a t [facility] 1185) Laboratory [facility] Blood [address] s [address]Xjmy Free: [phone] A No. [id number] [facility]AB[facility]H Confirmation (Lab Only)2021-03-27 16:31:51 Test Item Value Reference Range Interpretation Comments ABO & RH (test code A Positive Performe d at [facility] = 20) Laboratory [facility] Blood [address] [place] [address] s [address]Grlp Free: [phone] A No. [id number] [facility] HospitalAB[facility]H Confirmation (Lab Only)2021-03-27 16:31:51 Test Item Value Reference Range Interpretation Comments ABO & RH (test code A Positive Performe d at [facility] = 20) Laboratory Serv [facility] Blood [facility]3 [address] [facility] s [address]Tlfe Free: [phone] A No. [id number] [facility] Confirmation (Lab Only)2021-03-27 16:31:51 Test Item Value Reference Range Interpretation Comments ABO & RH (test code A Positive Performe d at [facility] = 20) Laboratory [facility] Blood [facility]3 [address] [facility] s [address]Axxz Free: [phone] A No. [id number] [facility] [id number] 16:00:28 Test Item Value Reference Range Interpretation Comments HAPTOGLOB (test code = 7135335020) 377 mg/dL 16-200 H Lab Interpretation (test code = Abnormal 67270-8) [facility] [id number] 16:00:28 Test Item Value Reference Range Interpretation Comments HAPTOGLOB (test code = 9502318734) 377 mg/dL 16-200 H Lab Interpretation (test code = Abnormal 16865-8) [facility] [id number] 16:00:28 Test Item Value Reference Range Interpretation Comments HAPTOGLOB (test code = 7565982646) 377 mg/dL 16-200 H Lab Interpretation (test code = Abnormal 86231-8) [facility] GLUCOSE (AUTOMATED)2021-03-27 14:14:57 Test Item Value Reference Range Interpretation Comments POCT GLU (test code = 9032829661) 104 mg/dL 70-110 Lab Interpretation (test code = Normal 14859-3) [facility] GLUCOSE (AUTOMATED)2021-03-27 14:14:57 Test Item Value Reference Range Interpretation Comments POCT GLU (test code = 2481442439) 104 mg/dL 70-110 Lab Interpretation (test code = Normal 95029-6) [facility] WITH [id number] 11:09:24 Test Item Value Reference Range Interpretation [...] (test code = 51.7 fL 38.5-51.6 H 97864-8) RDW-CV (test code = 15.1 % 12.1-15.4 788-0) PLT (test code = See_Comment H [Automated 777-3) message] The system which generated this result transmit qing reference range : 150 - 328 10*3/ ?L. The reference range was not u sed to interpret th is result as normal/abnormal . MPV (test code = 9.1 fL 9.8-13.0 L 81542-9) NRBC/100 WBC (test See_Comment [Automat ed code = 6193642314) message] The system which generated this result transmit qing reference range : 0.0 - 10.0 /100 WBCs. The reference range was not used to interpret this result as normal/abnormal . NRBC x10^3 (test code See_Comment [Auto mated = 5797108659) message] The system which generated this result transmit qing reference range : 10*3/?L. The reference range was not used to interpret this result as normal/abnormal . GRAN MAT (NEUT) % 77.2 % (test code = 770-8) IMM GRAN % (test code 1.90 % = 1285875864) LYMPH % (test code = 14.7 % 736-9) MONO % (test code = 4.6 % 5905-5) EOS % (test code = 1.3 % 713-8) BASO % (test code = 0.3 % 706-2) GRAN MAT x10^3(ANC) 15.48 10*3/uL 1.99-6.95 H (test code = 9407088986) IMM GRAN x10^3 (test 0.38 10*3/uL 0.00-0.06 H code = 6938843655) LYMPH x10^3 (test code 2.96 10*3/uL 1.09-3.23 = 731-0) MONO x10^3 (test code 0.92 10*3/uL 0.36-1.02 = 742-7) EOS x10^3 (test code = 0.27 10*3/uL 0.06-0.53 711-2) BASO x10^3 (test code 0.06 10*3/uL 0.01-0.09 = 704-7) POLYCHROMASIA (test 2+ See_Comment [Automa qing code = 67647-6) message] The system which generated this result transmit qing reference range : 2+. The referen ce range was not u sed to interpret th is result as normal/abnormal . Lab Interpretation Abnormal (test code = 52337-8) [facility] WITH [id number] 11:09:24 Test Item Value Reference Range Interpretation Comments WBC (test code = See_Comment H [Automated 2690-2) message] The system which generated this result transmit qing reference range : 4.20 - 10.70 10*3/?L. The reference range was not used to interpret this result as normal/abnormal . RBC (test code = See_Comment L [Automated 119-8) message] The system which generated this result [...] (test code = 51.7 fL 38.5-51.6 H 61057-3) RDW-CV (test code = 15.1 % 12.1-15.4 788-0) PLT (test code = See_Comment H [Automated 777-3) message] The system which generated this result transmit qing reference range : 150 - 328 10*3/ ?L. The reference range was not u sed to interpret th is result as normal/abnormal . MPV (test code = 9.1 fL 9.8-13.0 L 69590-3) NRBC/100 WBC (test See_Comment [Automat ed code = 0881507098) message] The system which generated this result transmit qing reference range : 0.0 - 10.0 /100 WBCs. The reference range was not used to interpret this result as normal/abnormal . NRBC x10^3 (test code See_Comment [Auto mated = 2592537276) message] The system which generated this result transmit qing reference range : 10*3/?L. The reference range was not used to interpret this result as normal/abnormal . GRAN MAT (NEUT) % 77.2 % (test code = 770-8) IMM GRAN % (test code 1.90 % = 8791323360) LYMPH % (test code = 14.7 % 736-9) MONO % (test code = 4.6 % 5905-5) EOS % (test code = 1.3 % 713-8) BASO % (test code = 0.3 % 706-2) GRAN MAT x10^3(ANC) 15.48 10*3/uL 1.99-6.95 H (test code = 9270550094) IMM GRAN x10^3 (test 0.38 10*3/uL 0.00-0.06 H code = 0286223741) LYMPH x10^3 (test code 2.96 10*3/uL 1.09-3.23 = 731-0) MONO x10^3 (test code 0.92 10*3/uL 0.36-1.02 = 742-7) EOS x10^3 (test code = 0.27 10*3/uL 0.06-0.53 711-2) BASO x10^3 (test code 0.06 10*3/uL 0.01-0.09 = 704-7) POLYCHROMASIA (test 2+ See_Comment [Automa qing code = 99639-9) message] The system which generated this result transmit qing reference range : 2+. The referen ce range was not u sed to interpret th is result as normal/abnormal . Lab Interpretation Abnormal (test code = 41459-5) [facility] HospitalPROTHROMBIN TIME / [id number] 10:05:30 Test Item Value Reference Range Interpretation Comments PROTIME PATIENT (test See_Comment H [Auto mated message] code = 5964-2) The system [employer] generated this result transmitted ref erence range: 10.1 - 1 2.6 Seconds. The reference range was not used to int erpret this result as normal/abnormal . INR (test code = 6301-6) Nor mal INR <1.1; Warfarin Therap eutic range 2.0 to 3. 0 or 2.5 to 3.5, dep ending upon the indica tions. Lab Interpretation (test Abnormal code = 91688-7) [facility] HospitalPROTHROMBIN TIME / [id number] 10:05:30 Test Item Value Reference Range Interpretation Comments PROTIME PATIENT (test See_Comment H [Auto mated message] code = 5964-2) The system [employer] generated this result transmitted ref erence range: 10.1 - 1 2.6 Seconds. The reference range was not used to int erpret this result as normal/abnormal . INR (test code = 6301-6) Nor mal INR <1.1; Warfarin Therap eutic range 2.0 to 3. 0 or 2.5 to 3.5, dep ending upon the indica tions. Lab Interpretation (test Abnormal code = 31354-2) [facility] (AUT[facility]ATED)2021-03-26 22:44:42 Test Item Value Reference Range Interpretation Comments POCT GLU (test code = 9162289817) 145 mg/dL 70-110 H Lab Interpretation (test code = Abnormal 94778-6) [facility] ([facility])2021-03-26 22:44:42 Test Item Value Reference Range Interpretation Comments POCT GLU (test code = 1382483851) 145 mg/dL 70-110 H Lab Interpretation (test code = Abnormal 38703-0) [facility] [id number] 20:57:41 Test Item Value Reference Range Interpretation Comments RETIC Count Automated 5.85 % 0.59-2.24 H (test code = 0886601387) RETIC Absolute Count See_Comment H [Autom ated message] (test code = 6826335802) The system which generated this result transmitted ref erence range: 0.0260 - 0.1170 10*6/?L. The reference range was not used to int erpret this result as normal/abnormal . IRF % (test code = 38.60 % 2.00-19.10 H 0859318643) RETIC-HE (test code = 24.8 pg 27.3-36.4 L 1478270698) Lab Interpretation (test Abnormal code = 73102-7) [facility] [id number] 20:57:41 Test Item Value Reference Range Interpretation Comments RETIC Count Automated 5.85 % 0.59-2.24 H (test code = 2009600385) RETIC Absolute Count See_Comment H [Autom ated message] (test code = 6513953438) The system which generated this result transmitted ref erence range: 0.0260 - 0.1170 10*6/?L. The reference range was not used to int erpret this result as normal/abnormal . IRF % (test code = 38.60 % 2.00-19.10 H 5240875833) RETIC-HE (test code = 24.8 pg 27.3-36.4 L 3790877447) Lab Interpretation (test Abnormal code = 00721-2) [facility] [id number] 20:57:41 Test Item Value Reference Range Interpretation Comments RETIC Count Automated 5.85 % 0.59-2.24 H (test code = 2414781878) RETIC Absolute Count See_Comment H [Autom ated message] (test code = 0763202605) The system which generated this result transmitted ref erence range: 0.0260 - 0.1170 10*6/?L. The reference range was not used to int erpret this result as normal/abnormal . IRF % (test code = 38.60 % 2.00-19.10 H 0676972873) RETIC-HE (test code = 24.8 pg 27.3-36.4 L 6367762977) Lab Interpretation (test Abnormal code = 67634-0) [facility] HospitalLACTATE [id number] 20:48:58 Test Item Value Reference Range Interpretation Comments LDH (test code = 2403956731) 411 U/L 300-600 Lab Interpretation (test code = Normal 57347-1) [facility] [id number] 20:48:58 Test Item Value Reference Range Interpretation Comments LDH (test code = 5312848667) 411 U/L 300-600 Lab Interpretation (test code = Normal 77750-3) [facility] [id number] 20:48:58 Test Item Value Reference Range Interpretation Comments LDH (test code = 0295509947) 411 U/L 300-600 Lab Interpretation (test code = Normal 28466-1) [facility] HospitalHEPATIC FUNCTION PANEL (80379) (ALB,T.PRO,BILI T,BU/BC,ALT,AST,ALK PHOS)2021-03-26 20:36:03 Test Item Value Reference Range Interpretation Comments TOTAL BILI (test code = 2387913811) 0.8 mg/dL 0.1-1.1 BILI UNCON (test code = 2411527441) 0.3 mg/dL 0.1-1.1 BILI CONJ (test code = 4750312687) 0.0 mg/dL 0.0-0.3 T PROTEIN (test code = 6808720922) 6.4 g/dL 6.3-8.2 ALBUMIN (test code = 2011272518) 3.2 g/dL 3.5-5.0 L ALK PHOS (test code = 3226182625) 90 U/L 34-122 ALTv (test code = 1742-6) 40 U/L 5-50 AST(SGOT) (test code = 6713011561) 68 U/L 13-40 H Lab Interpretation (test code = Abnormal 91127-1) [facility] HospitalHEPAT[facility] FUNCTION PAN[facility] (03308) (ALB,T.PRO,BILI T,BU/BC,ALT,AST,ALK PHOS)2021-03-26 20:36:03 Test Item Value Reference Range Interpretation Comments TOTAL BILI (test code = 3470412486) 0.8 mg/dL 0.1-1.1 BILI UNCON (test code = 5693958780) 0.3 mg/dL 0.1-1.1 BILI CONJ (test code = 4190705418) 0.0 mg/dL 0.0-0.3 T PROTEIN (test code = 8323091311) 6.4 g/dL 6.3-8.2 ALBUMIN (test code = 2341262547) 3.2 g/dL 3.5-5.0 L ALK PHOS (test code = 1108842655) 90 U/L 34-122 ALTv (test code = 1742-6) 40 U/L 5-50 AST(SGOT) (test code = 8659631884) 68 U/L 13-40 H Lab Interpretation (test code = Abnormal 47400-5) [facility]HEP[facility] FUNCTION PAN[facility] (13054) (ALB,T.PRO,BILI T,BU/BC,ALT,AST,ALK PHOS)2021-03-26 20:36:03 Test Item Value Reference Range Interpretation Comments TOTAL BILI (test code = 1818211596) 0.8 mg/dL 0.1-1.1 BILI UNCON (test code = 4202828251) 0.3 mg/dL 0.1-1.1 BILI CONJ (test code = 6784677532) 0.0 mg/dL 0.0-0.3 T PROTEIN (test code = 7932027206) 6.4 g/dL 6.3-8.2 ALBUMIN (test code = 6441840739) 3.2 g/dL 3.5-5.0 L ALK PHOS (test code = 8172284450) 90 U/L 34-122 ALTv (test code = 1742-6) 40 U/L 5-50 AST(SGOT) (test code = 7024517424) 68 U/L 13-40 H Lab Interpretation (test code = Abnormal 29317-5) [facility] 1/2 AG-AB WITH [id number] 19:26:57 Test Item Value Reference Range Interpretation Comments HIV Negative Negative Semi-quantitative (test code = 20769-7) POP (test code = Non-reactive for HIV-1 POP) antigen and HIV-1/HIV-2 antibodies. ?No laboratory evidence of HIV infection. ?Repeat in 2-4 weeks if acute HIV infection is suspected. [facility] 1/2 AG-AB WITH [id number] 19:26:57 Test Item Value Reference Range Interpretation Comments HIV Negative Negative Semi-quantitative (test code = 60338-0) POP (test code = Non-reactive for HIV-1 POP) antigen and HIV-1/HIV-2 antibodies. ?No laboratory evidence of HIV infection. ?Repeat in 2-4 weeks if acute HIV infection is suspected. [facility] 1/2 AG-AB WITH [id number] 19:26:57 Test Item Value Reference Range Interpretation Comments HIV Negative Negative Semi-quantitative (test code = 90517-8) POP (test code = Non-reactive for HIV-1 POP) antigen and HIV-1/HIV-2 antibodies. ?No laboratory evidence of HIV infection. ?Repeat in 2-4 weeks if acute HIV infection is suspected. [facility] GLUCOSE (AUTOMATED)2021-03-26 18:22:48 Test Item Value Reference Range Interpretation Comments POCT GLU (test code = 2378401553) 127 mg/dL 70-110 H Lab Interpretation (test code = Abnormal 35705-3) [facility] GLUCOSE (AUTOMATED)2021-03-26 18:22:48 Test Item Value Reference Range Interpretation Comments POCT GLU (test code = 0938488804) 127 mg/dL 70-110 H Lab Interpretation (test code = Abnormal 58214-4) [facility] GLUCOSE (AUTOMATED)2021-03-26 14:52:39 Test Item Value Reference Range Interpretation Comments POCT GLU (test code = 1875845794) 144 mg/dL 70-110 H Lab Interpretation (test code = Abnormal 50737-8) [facility] GLUCOSE (AUTOMATED)2021-03-26 14:52:39 Test Item Value Reference Range Interpretation Comments POCT GLU (test code = 1144520729) 144 mg/dL 70-110 H Lab Interpretation (test code = Abnormal 97297-5) [facility] WITHOUT [id number] 12:12:23 Test Item Value Reference Range Interpretation Comments WBC (test code = 6690-2) See_Comment H [A utomated message] The system [employer] generated this result transmit qing reference range : 4.20 - 10.70 10*3/?L. The reference range was not used to interpret this result as normal/abnormal . RBC (test code = 789-8) See_Comment L [Au tomated message] The system [employer] generated this result transmit qing reference range [...] See_Comment H [Au tomated message] The system [employer] generated this result transmit qing reference range : 150 - 328 10*3/?L. The reference range was not used to interpret this result as normal/abnormal . MPV (test code = 9.0 fL 9.8-13.0 L 94434-8) RDW-CV (test code = 14.7 % 12.1-15.4 788-0) RDW-SD (test code = 50.3 fL 38.5-51.6 83435-9) NRBC x10^3 (test code = See_Comment [Au tomated message] 4450414335) The system [employer] generated this result transmit qing reference range : 10*3/?L. The reference range was not used to interpret this result as normal/abnormal . NRBC/100 WBC (test code See_Comment [Au tomated message] = 3268014954) The system [facility] generated this result transmit qing reference range : 0.0 - 10.0 /100 WBC s. The reference r jalen was not used to interpret this result as normal/abnormal . IPF % (test code = 1544161636) Lab Interpretation (test Abnormal code = 00435-2) [facility] WITHOUT [id number] 12:12:23 Test Item Value Reference Range Interpretation Comments WBC (test code = 6690-2) See_Comment H [A utomated message] The system [employer] generated this result transmit qing reference range : 4.20 - 10.70 10*3/?L. The reference range was not used to interpret this result as normal/abnormal . RBC (test code = 789-8) See_Comment L [Au tomated message] The system [employer] generated this result transmit qing reference range [...] See_Comment H [Au tomated message] The system [employer] generated this result transmit qing reference range : 150 - 328 10*3/?L. The reference range was not used to interpret this result as normal/abnormal . MPV (test code = 9.0 fL 9.8-13.0 L 81763-4) RDW-CV (test code = 14.7 % 12.1-15.4 788-0) RDW-SD (test code = 50.3 fL 38.5-51.6 52269-6) NRBC x10^3 (test code = See_Comment [Au tomated message] 7722092938) The system [employer] generated this result transmit qing reference range : 10*3/?L. The reference range was not used to interpret this result as normal/abnormal . NRBC/100 WBC (test code See_Comment [Au tomated message] = 0091153348) The system [employer] generated this result transmit qing reference range : 0.0 - 10.0 /100 WBC s. The reference r jalen was not used to interpret this result as normal/abnormal . IPF % (test code = 8224880632) Lab Interpretation (test Abnormal code = 85981-7) [facility] CULTURE [id number] 03:01:28 Test Item Value Reference Range Interpretation Comments Blood Culture-Aerobic No organisms No growth Previo us (test code = 11349-8) isolated prelim inary verified result was Culture In Progress on 03/21/2021 at 0001 CSTPreviou s preliminary verified result was No growth a t 24 hours on 03/21/2021 at 2101 CSTPreviou s preliminary verified result was No growth a t 48 hours on 03/22/2021 at 2101 CSTPreviou s preliminary verified result was No growth a t 72 hours on 03/23/2021 at 2101 [employer] Blood No organisms No growth Previous Culture-Anaerobic isolated preliminar y (test code = 98592-2) verifi ed result was Culture In Progress on 03/21/2021 at 0001 CSTPreviou s preliminary verified result was No growth a t 24 hours on 03/21/2021 at 2101 CSTPreviou s preliminary verified result was No growth a t 48 hours on 03/22/2021 at 2101 CSTPreviou s preliminary verified result was No growth a t 72 hours on 03/23/2021 at 2101 [employer] Lab Interpretation Normal (test code = 60984-1) [facility] CULTURE [id number] 03:01:28 Test Item Value Reference Range Interpretation Comments Blood Culture-Aerobic No organisms No growth Previo us (test code = 89771-6) isolated prelim inary verified result was Culture In Progress on 03/21/2021 at 0001 CSTPreviou s preliminary verified result was No growth a t 24 hours on 03/21/2021 at 2101 CSTPreviou s preliminary verified result was No growth a t 48 hours on 03/22/2021 at 2101 CSTPreviou s preliminary verified result was No growth a t 72 hours on 03/23/2021 at 2101 [employer] Blood No organisms No growth Previous Culture-Anaerobic isolated preliminar y (test code = 25749-7) verifi ed result was Culture In Progress on 03/21/2021 at 0001 CSTPreviou s preliminary verified result was No growth a t 24 hours on 03/21/2021 at 2101 CSTPreviou s preliminary verified result was No growth a t 48 hours on 03/22/2021 at 210 CSTPreviou s preliminary verified result was No growth a t 72 hours on 03/23/2021 at 2101 [employer] Lab Interpretation Normal (test code = 43179-2) [facility] CULTURE [id number] 03:01:28 Test Item Value Reference Range Interpretation Comments Blood Culture-Aerobic No organisms No growth Previo us (test code = 72777-8) isolated prelim inary verified result was Culture In Progress on 03/21/2021 at 0001 CSTPreviou s preliminary verified result was No growth a t 24 hours on 03/21/2021 at 2101 CSTPreviou s preliminary verified result was No growth a t 48 hours on 03/22/2021 at 210 CSTPreviou s preliminary verified result was No growth a t 72 hours on 03/23/2021 at 2101 [employer] Blood No organisms No growth Previous Culture-Anaerobic isolated preliminar y (test code = 23516-5) verifi ed result was Culture In Progress on 03/21/2021 at 0001 CSTPreviou s preliminary verified result was No growth a t 24 hours on 03/21/2021 at 210 CSTPreviou s preliminary verified result was No growth a t 48 hours on 03/22/2021 at 210 CSTPreviou s preliminary verified result was No growth a t 72 hours on 03/23/2021 at 2101 [employer] Lab Interpretation Normal (test code = 57942-3) [facility] CULTURE [id number] 02:01:31 Test Item Value Reference Range Interpretation Comments Blood Culture-Aerobic No organisms No growth Previo us (test code = 61044-0) isolated prelim inary verified result was Culture In Progress on 03/20/2021 at 2302 CSTPreviou s preliminary verified result was No growth a t 24 hours on 03/21/2021 at 2000 CSTPreviou s preliminary verified result was No growth a t 48 hours on 03/22/2021 at 2000 CSTPreviou s preliminary verified result was No growth a t 72 hours on 03/23/2021 at 2000 [employer] Blood No organisms No growth Previous Culture-Anaerobic isolated preliminar y (test code = 49971-7) verifi ed result was Culture In Progress on 03/20/2021 at 2302 CSTPreviou s preliminary verified result was No growth a t 24 hours on 03/21/2021 at 2000 CSTPreviou s preliminary verified result was No growth a t 48 hours on 03/22/2021 at 2000 CSTPreviou s preliminary verified result was No growth a t 72 hours on 03/23/2021 at 2000 [employer] Lab Interpretation Normal (test code = 34055-9) [id number] 02:01:31 Test Item Value Reference Range Interpretation Comments Blood Culture-Aerobic No organisms No growth Previo us (test code = 29364-8) isolated prelim inary verified result was Culture In Progress on 03/20/2021 at 2302 CSTPreviou s preliminary verified result was No growth a t 24 hours on 03/21/2021 at 2000 CSTPreviou s preliminary verified result was No growth a t 48 hours on 03/22/2021 at 2000 CSTPreviou s preliminary verified result was No growth a t 72 hours on 03/23/2021 at 2000 [employer] Blood No organisms No growth Previous Culture-Anaerobic isolated preliminar y (test code = 74012-7) verifi ed result was Culture In Progress on 03/20/2021 at 2302 CSTPreviou s preliminary verified result was No growth a t 24 hours on 03/21/2021 at 2000 CSTPreviou s preliminary verified result was No growth a t 48 hours on 03/22/2021 at 2000 CSTPreviou s preliminary verified result was No growth a t 72 hours on 03/23/2021 at 2000 [employer] Lab Interpretation Normal (test code = 22985-3) [facility] 22:50:12 Test Item Value Reference Range Interpretation Comments POCT GLU (test code = 6005996165) 129 mg/dL 70-110 H Lab Interpretation (test code = Abnormal 06691-4) [facility]25 22:50:12 Test Item Value Reference Range Interpretation Comments POCT GLU (test code = 6208620214) 129 mg/dL 70-110 H Lab Interpretation (test code = Abnormal 31436-2) [facility]-[id number] 21:20:20 Test Item Value Reference Interpretation Comments Range D-DIMER (test code = See_Comment H [Autom ated 4742909180) message] The system which generated this result [...] diagnosis. Lab Interpretation Abnormal (test code = 69169-1) [facility]-[id number] 21:20:20 Test Item Value Reference Interpretation Comments Range D-DIMER (test code = See_Comment H [Autom ated 4679460065) message] The system which generated this result [...] diagnosis. Lab Interpretation Abnormal (test code = 86906-4) [facility][id number] 21:20:20 Test Item Value Reference Interpretation Comments Range D-DIMER (test code = See_Comment H [Autom ated 7478104719) message] The system which generated this result [...] diagnosis. Lab Interpretation Abnormal (test code = 35493-2) [facility] WITH [id number] 21:10:21 Test Item Value Reference Range Interpretation Comments WBC (test code = See_Comment H [Automated 2790-2) message] The sy stem which generated this result transmitted reference range : 4.20 - 10.70 10*3/?L. The reference range was not used to interpret this result as normal/abnormal . RBC (test code = See_Comment L [Automated 3098) message] The sy stem which generated this [...] RDW-SD (test code = 51.2 fL 38.5-51.6 62723-6) RDW-CV (test code = 14.7 % 12.1-15.4 788-0) PLT (test code = See_Comment H [Automated 777-3) message] The sy stem which generated this result transmitted reference range : 150 - 328 10*3/ ?L. The reference r jalen was not used to interpret this result as normal/abnormal . MPV (test code = 9.2 fL 9.8-13.0 L 49740-4) NRBC/100 WBC (test See_Comment [Automat ed code = 2169033857) message] The system which generated this result transmitted reference range : 0.0 - 10.0 /100 WBCs. The refer ence range was not u sed to interpret th is result as normal/abnormal . NRBC x10^3 (test code See_Comment [Auto mated = 7486358516) message] The s ystem which generated this result transmitted reference range : 10*3/?L. The reference range was not used to interpret this result as normal/abnormal . GRAN MAT (NEUT) % 77.4 % (test code = 770-8) IMM GRAN % (test code 0.50 % = 3177700092) LYMPH % (test code = 14.1 % 736-9) MONO % (test code = 6.3 % 5905-5) EOS % (test code = 1.2 % 713-8) BASO % (test code = 0.5 % 706-2) GRAN MAT x10^3(ANC) 9.19 10*3/uL 1.99-6.95 H (test code = 5414463730) IMM GRAN x10^3 (test 0.06 10*3/uL 0.00-0.06 code = 5379879509) LYMPH x10^3 (test code 1.67 10*3/uL 1.09-3.23 = 731-0) MONO x10^3 (test code 0.75 10*3/uL 0.36-1.02 = 742-7) EOS x10^3 (test code = 0.14 10*3/uL 0.06-0.53 711-2) BASO x10^3 (test code 0.06 10*3/uL 0.01-0.09 = 704-7) Lab Interpretation Abnormal (test code = 09812-3) [facility] WITH [id number] 21:10:21 Test Item Value Reference Range Interpretation [...] RDW-SD (test code = 51.2 fL 38.5-51.6 54344-7) RDW-CV (test code = 14.7 % 12.1-15.4 788-0) PLT (test code = See_Comment H [Automated 777-3) message] The sy stem which generated this result transmitted reference range : 150 - 328 10*3/ ?L. The reference r jalen was not used to interpret this result as normal/abnormal . MPV (test code = 9.2 fL 9.8-13.0 L 79296-2) NRBC/100 WBC (test See_Comment [Automat ed code = 9295130663) message] The system which generated this result transmitted reference range : 0.0 - 10.0 /100 WBCs. The refer ence range was not u sed to interpret th is result as normal/abnormal . NRBC x10^3 (test code See_Comment [Auto mated = 9696158418) message] The s ystem which generated this result transmitted reference range : 10*3/?L. The reference range was not used to interpret this result as normal/abnormal . GRAN MAT (NEUT) % 77.4 % (test code = 770-8) IMM GRAN % (test code 0.50 % = 6488577771) LYMPH % (test code = 14.1 % 736-9) MONO % (test code = 6.3 % 5905-5) EOS % (test code = 1.2 % 713-8) BASO % (test code = 0.5 % 706-2) GRAN MAT x10^3(ANC) 9.19 10*3/uL 1.99-6.95 H (test code = 1360986772) IMM GRAN x10^3 (test 0.06 10*3/uL 0.00-0.06 code = 9358470300) LYMPH x10^3 (test code 1.67 10*3/uL 1.09-3.23 = 731-0) MONO x10^3 (test code 0.75 10*3/uL 0.36-1.02 = 742-7) EOS x10^3 (test code = 0.14 10*3/uL 0.06-0.53 711-2) BASO x10^3 (test code 0.06 10*3/uL 0.01-0.09 = 704-7) Lab Interpretation Abnormal (test code = 20845-9) [facility]-REACTIVE [id number] 18:25:43 Test Item Value Reference Range Interpretation Comments CRP (test code = 5673344140) 1.6 mg/dL <0.8 H Lab Interpretation (test code = Abnormal 79705-9) [facility]-REACTIVE [id number] 18:25:43 Test Item Value Reference Range Interpretation Comments CRP (test code = 7066437918) 1.6 mg/dL <0.8 H Lab Interpretation (test code = Abnormal 22866-6) [facility] [id number] 18:25:43 Test Item Value Reference Range Interpretation Comments CRP (test code = 0240907508) 1.6 mg/dL <0.8 H Lab Interpretation (test code = Abnormal 75376-2) [facility] GLUCOSE (AUTOMATED)2021-03-25 18:08:08 Test Item Value Reference Range Interpretation Comments POCT GLU (test code = 4230933954) 136 mg/dL 70-110 H Lab Interpretation (test code = Abnormal 54666-1) [facility] GLUCOSE (AUTOMATED)2021-03-25 18:08:08 Test Item Value Reference Range Interpretation Comments POCT GLU (test code = 5582358473) 136 mg/dL 70-110 H Lab Interpretation (test code = Abnormal 22343-9) [facility] GLUCOSE (AUTOMATED)2021-03-25 14:38:25 Test Item Value Reference Range Interpretation Comments POCT GLU (test code = 1564538053) 133 mg/dL 70-110 H Lab Interpretation (test code = Abnormal 36088-5) [facility] GLUCOSE (AUTOMATED)2021-03-25 14:38:25 Test Item Value Reference Range Interpretation Comments POCT GLU (test code = 1504534896) 133 mg/dL 70-110 H Lab Interpretation (test code = Abnormal 47044-9) [facility], [id number] 03:28:13 Test Item Value Reference Range Interpretation Comments AMMONIA (test code = 9601419235) <9 9-33 L Lab Interpretation (test code = Abnormal 95595-2) [facility] [id number] 03:28:13 Test Item Value Reference Range Interpretation Comments AMMONIA (test code = 2332242215) <9 9-33 L Lab Interpretation (test code = Abnormal 93142-9) [facility] [id number] 03:28:13 Test Item Value Reference Range Interpretation Comments AMMONIA (test code = 3842221819) <9 9-33 L Lab Interpretation (test code = Abnormal 30512-0) [facility] [id number] 23:35:12 Test Item Value Reference Range Interpretation Comments FERRITIN (test code = 14.1 ng/mL 18.0-464.0 L 7504929838) POP (test code = POP) Biotin has been reported to cause a negative bias, interpret results relative to patient's use of biotin. Lab Interpretation (test Abnormal code = 16041-7) [facility] [id number] 23:35:12 Test Item Value Reference Range Interpretation Comments FERRITIN (test code = 14.1 ng/mL 18.0-464.0 L 3722827829) POP (test code = POP) Biotin has been reported to cause a negative bias, interpret results relative to patient's use of biotin. Lab Interpretation (test Abnormal code = 00029-9) [facility] [id number] 23:35:12 Test Item Value Reference Range Interpretation Comments FERRITIN (test code = 14.1 ng/mL 18.0-464.0 L 3723072081) POP (test code = POP) Biotin has been reported to cause a negative bias, interpret results relative to patient's use of biotin. Lab Interpretation (test Abnormal code = 86544-1) [facility] [id number] 23:31:09 Test Item Value Reference Range Interpretation Comments TSH (test code = See_Comment [Automated message] 5069208269) The system [employer] generated this result transmitted ref erence range: 0.45 - 4 .70 mIU/L. The refe rence range was not u sed to interpret this result as normal/abnor mal. Lab Interpretation (test Normal code = 05984-0) [facility] [id number] 23:31:09 Test Item Value Reference Range Interpretation Comments TSH (test code = See_Comment [Automated message] 7769319382) The system [employer] generated this result transmitted ref erence range: 0.45 - 4 .70 mIU/L. The refe rence range was not u sed to interpret this result as normal/abnor mal. Lab Interpretation (test Normal code = 53993-4) [facility] [id number] 23:31:09 Test Item Value Reference Range Interpretation Comments TSH (test code = See_Comment [Automated message] 4224630904) The system [employer] generated this result transmitted ref erence range: 0.45 - 4 .70 mIU/L. The refe rence range was not u sed to interpret this result as normal/abnor mal. Lab Interpretation (test Normal code = 55174-7) [facility] [id number] 23:17:01 Test Item Value Reference Range Interpretation Comments IRON (test code = 0150807744) 26 ug/dL 50-160 L TIBC (test code = 8754979021) 298 ug/dL 250-410 % FE SAT (test code = 4714023677) 9 % 20-50 L Lab Interpretation (test code = Abnormal 74003-5) [facility] [id number] 23:17:01 Test Item Value Reference Range Interpretation Comments IRON (test code = 9794886444) 26 ug/dL 50-160 L TIBC (test code = 9776633628) 298 ug/dL 250-410 % FE SAT (test code = 1594793644) 9 % 20-50 L Lab Interpretation (test code = Abnormal 01371-3) [facility] [id number] 23:17:01 Test Item Value Reference Range Interpretation Comments IRON (test code = 9578285902) 26 ug/dL 50-160 L TIBC (test code = 1961485825) 298 ug/dL 250-410 % FE SAT (test code = 9469857339) 9 % 20-50 L Lab Interpretation (test code = Abnormal 60092-6) [facility] [id number] 22:59:28 Test Item Value Reference Range Interpretation Comments ESR (test code = See_Comment H [Automated message] 6142458278) The system [employer] generated this result transmitted ref erence range: 0 - 10 m m/HR. The reference r jalen was not used to interpret this result as normal/abnor mal. Lab Interpretation (test Abnormal code = 48802-3) [facility] [id number] 22:59:28 Test Item Value Reference Range Interpretation Comments ESR (test code = See_Comment H [Automated message] 4303232335) The system [employer] generated this result transmitted ref erence range: 0 - 10 m m/HR. The reference r jalen was not used to interpret this result as normal/abnor mal. Lab Interpretation (test Abnormal code = 99146-2) [facility]ED[facility] [id number] 22:59:28 Test Item Value Reference Range Interpretation Comments ESR (test code = See_Comment H [Automated message] 9297513618) The system [employer] generated this result transmitted ref erence range: 0 - 10 m m/HR. The reference r jalen was not used to interpret this result as normal/abnor mal. Lab Interpretation (test Abnormal code = 12864-0) [facility] GLUCOSE (AUTOMATED)2021-03-24 21:54:52 Test Item Value Reference Range Interpretation Comments POCT GLU (test code = 8123393391) 95 mg/dL 70-110 Lab Interpretation (test code = Normal 39157-0) [facility] GLUCOSE (AUTOMATED)2021-03-24 21:54:52 Test Item Value Reference Range Interpretation Comments POCT GLU (test code = 6738522543) 95 mg/dL 70-110 Lab Interpretation (test code = Normal 42835-7) [facility] GLUCOSE (AUTOMATED)2021-03-24 17:37:33 Test Item Value Reference Range Interpretation Comments POCT GLU (test code = 0446603954) 97 mg/dL 70-110 Lab Interpretation (test code = Normal 39414-1) [facility] GLUCOSE (AUTOMATED)2021-03-24 17:37:33 Test Item Value Reference Range Interpretation Comments POCT GLU (test code = 3279434625) 97 mg/dL 70-110 Lab Interpretation (test code = Normal 99981-9) [facility] GLUCOSE (AUTOMATED)2021-03-24 13:48:11 Test Item Value Reference Range Interpretation Comments POCT GLU (test code = 2752607833) 96 mg/dL 70-110 Lab Interpretation (test code = Normal 85860-1) [facility] GLUCOSE (AUTOMATED)2021-03-24 13:48:11 Test Item Value Reference Range Interpretation Comments POCT GLU (test code = 9283904138) 96 mg/dL 70-110 Lab Interpretation (test code = Normal 17194-3) [facility] METABOLIC PANEL (NA, K, CL, CO2, GLUCOSE, BUN, CREATININE, CA)2021-03-24 10:53:08 Test Item Value Reference Range Interpretation Comments NA (test code = 136 mmol/L 135-145 3157619728) K (test code = 3.8 mmol/L 3.5-5.0 3478981536) CL (test code = 106 mmol/L 98-108 2073063888) CO2 TOTAL (test code = 22 mmol/L 23-31 L 2995244811) AGAP (test code = 2-16 1250165545) BUN (test code = 15 mg/dL 7-23 1073420679) GLUCOSE (test code = 71 mg/dL 70-110 7030303106) CREATININE (test code = 0.76 mg/dL 0.60-1.25 4979766557) CALCIUM (test code = 8.2 mg/dL 8.6-10.6 L 7730739494) eGFR (test code = mL/min/1.73m2 8333936046) POP (test code = POP) Association of [...] tests). Lab Interpretation Abnormal (test code = 42842-0) [facility] METABOLIC PANEL (NA, K, CL, CO2, GLUCOSE, BUN, CREATININE, CA)2021-03-24 10:53:08 Test Item Value Reference Range Interpretation Comments NA (test code = 136 mmol/L 135-145 2657087911) K (test code = 3.8 mmol/L 3.5-5.0 5050598795) CL (test code = 106 mmol/L 98-108 6108497765) CO2 TOTAL (test code = 22 mmol/L 23-31 L 7793230164) AGAP (test code = 2-16 4797219412) BUN (test code = 15 mg/dL 7-23 3813223824) GLUCOSE (test code = 71 mg/dL 70-110 9741436762) CREATININE (test code = 0.76 mg/dL 0.60-1.25 5951425036) CALCIUM (test code = 8.2 mg/dL 8.6-10.6 L 2799945637) eGFR (test code = mL/min/1.73m2 2251740877) POP (test code = POP) Association of [...] tests). Lab Interpretation Abnormal (test code = 54138-4) [facility] WITH [id number] 10:27:28 Test Item Value Reference Range Interpretation [...] RDW-SD (test code = 46.9 fL 38.5-51.6 78557-1) RDW-CV (test code = 14.5 % 12.1-15.4 788-0) PLT (test code = See_Comment H [Automated 777-3) message] The sy stem which generated this result transmitted reference range : 150 - 328 10*3/ ?L. The reference r jalen was not used to interpret this result as normal/abnormal . MPV (test code = 9.2 fL 9.8-13.0 L 92269-5) NRBC/100 WBC (test See_Comment [Automat ed code = 3886546752) message] The system which generated this result transmitted reference range : 0.0 - 10.0 /100 WBCs. The refer ence range was not u sed to interpret th is result as normal/abnormal . NRBC x10^3 (test code See_Comment [Auto mated = 7363245186) message] The s ystem which generated this result transmitted reference range : 10*3/?L. The reference range was not used to interpret this result as normal/abnormal . GRAN MAT (NEUT) % 72.2 % (test code = 770-8) IMM GRAN % (test code 0.60 % = 4740096313) LYMPH % (test code = 19.2 % 736-9) MONO % (test code = 6.3 % 5905-5) EOS % (test code = 1.3 % 713-8) BASO % (test code = 0.4 % 706-2) GRAN MAT x10^3(ANC) 7.70 10*3/uL 1.99-6.95 H (test code = 7024524564) IMM GRAN x10^3 (test 0.06 10*3/uL 0.00-0.06 code = 5855880240) LYMPH x10^3 (test code 2.04 10*3/uL 1.09-3.23 = 731-0) MONO x10^3 (test code 0.67 10*3/uL 0.36-1.02 = 742-7) EOS x10^3 (test code = 0.14 10*3/uL 0.06-0.53 711-2) BASO x10^3 (test code 0.04 10*3/uL 0.01-0.09 = 704-7) Lab Interpretation Abnormal (test code = 02410-3) [facility] WITH [id number] 10:27:28 Test Item Value Reference Range Interpretation Comments WBC (test code = See_Comment [Automated 8890-2) message] The sy stem which [...] RDW-SD (test code = 46.9 fL 38.5-51.6 81658-8) RDW-CV (test code = 14.5 % 12.1-15.4 788-0) PLT (test code = See_Comment H [Automated 777-3) message] The sy stem which generated this result transmitted reference range : 150 - 328 10*3/ ?L. The reference r jalen was not used to interpret this result as normal/abnormal . MPV (test code = 9.2 fL 9.8-13.0 L 17926-6) NRBC/100 WBC (test See_Comment [Automat ed code = 1234518517) message] The system which generated this result transmitted reference range : 0.0 - 10.0 /100 WBCs. The refer ence range was not u sed to interpret th is result as normal/abnormal . NRBC x10^3 (test code See_Comment [Auto mated = 9441804194) message] The s ystem which generated this result transmitted reference range : 10*3/?L. The reference range was not used to interpret this result as normal/abnormal . GRAN MAT (NEUT) % 72.2 % (test code = 770-8) IMM GRAN % (test code 0.60 % = 8463695316) LYMPH % (test code = 19.2 % 736-9) MONO % (test code = 6.3 % 5905-5) EOS % (test code = 1.3 % 713-8) BASO % (test code = 0.4 % 706-2) GRAN MAT x10^3(ANC) 7.70 10*3/uL 1.99-6.95 H (test code = 9662554144) IMM GRAN x10^3 (test 0.06 10*3/uL 0.00-0.06 code = 3493188107) LYMPH x10^3 (test code 2.04 10*3/uL 1.09-3.23 = 731-0) MONO x10^3 (test code 0.67 10*3/uL 0.36-1.02 = 742-7) EOS x10^3 (test code = 0.14 10*3/uL 0.06-0.53 711-2) BASO x10^3 (test code 0.04 10*3/uL 0.01-0.09 = 704-7) Lab Interpretation Abnormal (test code = 83581-9) [facility] GLUCOSE (AUTOMATED)2021-03-24 02:24:46 Test Item Value Reference Range Interpretation Comments POCT GLU (test code = 4688926934) 90 mg/dL 70-110 Lab Interpretation (test code = Normal 35998-5) [facility] GLUCOSE (AUTOMATED)2021-03-24 02:24:46 Test Item Value Reference Range Interpretation Comments POCT GLU (test code = 3818204839) 90 mg/dL 70-110 Lab Interpretation (test code = Normal 02728-6) [facility] GLUCOSE (AUTOMATED)2021-03-23 23:02:24 Test Item Value Reference Range Interpretation Comments POCT GLU (test code = 1144071857) 101 mg/dL 70-110 Lab Interpretation (test code = Normal 76612-1) [facility] GLUCOSE (AUTOMATED)2021-03-23 23:02:24 Test Item Value Reference Range Interpretation Comments POCT GLU (test code = 3588456867) 101 mg/dL 70-110 Lab Interpretation (test code = Normal 64006-5) [facility] GLUCOSE (AUTOMATED)2021-03-23 17:40:20 Test Item Value Reference Range Interpretation Comments POCT GLU (test code = 2732049164) 99 mg/dL 70-110 Lab Interpretation (test code = Normal 02462-9) [facility] GLUCOSE (AUTOMATED)2021-03-23 17:40:20 Test Item Value Reference Range Interpretation Comments POCT GLU (test code = 7092056158) 99 mg/dL 70-110 Lab Interpretation (test code = Normal 89002-6[facility] 14:18:19 Test Item Value Reference Range Interpretation Comments POCT GLU (test code = 6567316578) 100 mg/dL 70-110 Lab Interpretation (test code = Normal 27953-9) [facility] GLUCOSE (AUTOMATED)2021-03-23 14:18:19 Test Item Value Reference Range Interpretation Comments POCT GLU (test code = 3214738457) 100 mg/dL 70-110 Lab Interpretation (test code = Normal 42968-8) [facility] GLUCOSE (AUTOMATED)2021-03-23 02:11:27 Test Item Value Reference Range Interpretation Comments POCT GLU (test code = 3563339186) 129 mg/dL 70-110 H Lab Interpretation (test code = Abnormal 09605-5) [facility] GLUCOSE (AUTOMATED)2021-03-23 02:11:27 Test Item Value Reference Range Interpretation Comments POCT GLU (test code = 9608135495) 129 mg/dL 70-110 H Lab Interpretation (test code = Abnormal 80685-5) [facility] GLUCOSE (AUTOMATED)2021-03-22 22:25:04 Test Item Value Reference Range Interpretation Comments POCT GLU (test code = 9660420775) 135 mg/dL 70-110 H Lab Interpretation (test code = Abnormal 22452-9) [facility] GLUCOSE (AUTOMATED)2021-03-22 22:25:04 Test Item Value Reference Range Interpretation Comments POCT GLU (test code = 3021825297) 135 mg/dL 70-110 H Lab Interpretation (test code = Abnormal 87970-2) [facility] GLUCOSE (AUTOMATED)2021-03-22 17:16:14 Test Item Value Reference Range Interpretation Comments POCT GLU (test code = 2394922173) 134 mg/dL 70-110 H Lab Interpretation (test code = Abnormal 19573-3) [facility] GLUCOSE (AUTOMATED)2021-03-22 17:16:14 Test Item Value Reference Range Interpretation Comments POCT GLU (test code = 1759084184) 134 mg/dL 70-110 H Lab Interpretation (test code = Abnormal 23380-6) [facility] GLUCOSE (AUTOMATED)2021-03-22 13:33:42 Test Item Value Reference Range Interpretation Comments POCT GLU (test code = 6385555107) 129 mg/dL 70-110 H Lab Interpretation (test code = Abnormal 18273-9) [facility] GLUCOSE (AUTOMATED)2021-03-22 13:33:42 Test Item Value Reference Range Interpretation Comments POCT GLU (test code = 9242914866) 129 mg/dL 70-110 H Lab Interpretation (test code = Abnormal 82252-5) [facility] ASPIRIN [id number] 10:35:06 Test Item Value Reference Range Interpretation Comments [employer] Aspirin See Comment ARU Test (test code = 0110384919) POP (test code = < 550 ARU [...] and clinical data available to the clinician. [facility] [id number] 10:35:06 Test Item Value Reference Range Interpretation Comments [employer] Aspirin See Comment ARU Test (test code = 7775173111) POP (test code = < 550 ARU [...] and clinical data available to the clinician. [facility] ASPIRIN [id number] 10:35:06 Test Item Value Reference Range Interpretation Comments [employer] Aspirin See Comment ARU Test (test code = 5073508521) POP (test code = < 550 ARU [...] and clinical data available to the clinician. [facility] PRUTEST (P2Y12)2021-03-22 10:28:35 Test Item Value Reference Range Interpretation Comments [employer] PRUTest See_Comment L [Automate d (P2Y12) (test code message] The = 7140460711) system which generated this result transmitted reference [...] clinician. Lab Interpretation Abnormal (test code = 38091-4) [facility] 10:28:35 Test Item Value Reference Range Interpretation Comments [employer] PRUTest See_Comment L [Automate d (P2Y12) (test code message] The = 6405637296) system which generated this result transmitted reference [...] clinician. Lab Interpretation Abnormal (test code = 15100-3) [facility] 10:28:35 Test Item Value Reference Range Interpretation Comments [employer] PRUTest See_Comment L [Automate d (P2Y12) (test code message] The = 3433126981) system which generated this result transmitted reference [...] clinician. Lab Interpretation Abnormal (test code = 03103-5) [facility] (NA, K, CL, CO2, GLUCOSE, BUN, CREATININE, CA)2021-03-22 10:08:19 Test Item Value Reference Range Interpretation Comments NA (test code = 132 mmol/L 135-145 L 5545027117) K (test code = 4.6 mmol/L 3.5-5.0 4283118852) CL (test code = 104 mmol/L 98-108 4622753030) CO2 TOTAL (test code = 22 mmol/L 23-31 L 1755650751) AGAP (test code = 2-16 3123494193) BUN (test code = 19 mg/dL 7-23 9825172106) GLUCOSE (test code = 107 mg/dL 70-110 8438050356) CREATININE (test code = 0.84 mg/dL 0.60-1.25 1791181257) CALCIUM (test code = 8.9 mg/dL 8.6-10.6 2741750332) eGFR (test code = mL/min/1.73m2 8026369526) POP (test code = POP) Association of [...] tests). Lab Interpretation Abnormal (test code = 84424-9) [facility] METABOLIC PANEL (NA, K, CL, CO2, GLUCOSE, BUN, CREATININE, CA)2021-03-22 10:08:19 Test Item Value Reference Range Interpretation Comments NA (test code = 132 mmol/L 135-145 L 3308948929) K (test code = 4.6 mmol/L 3.5-5.0 9140258810) CL (test code = 104 mmol/L 98-108 7787734643) CO2 TOTAL (test code = 22 mmol/L 23-31 L 6869516942) AGAP (test code = 2-16 3141593739) BUN (test code = 19 mg/dL 7-23 8208046896) GLUCOSE (test code = 107 mg/dL 70-110 0991510922) CREATININE (test code = 0.84 mg/dL 0.60-1.25 8664587588) CALCIUM (test code = 8.9 mg/dL 8.6-10.6 1909923431) eGFR (test code = mL/min/1.73m2 0777672912) POP (test code = POP) Association of [...] tests). Lab Interpretation Abnormal (test code = 98077-8) [facility] GLUCOSE (AUTOMATED)2021-03-22 02:18:47 Test Item Value Reference Range Interpretation Comments POCT GLU (test code = 8619738245) 221 mg/dL 70-110 H Lab Interpretation (test code = Abnormal 56026-3) [facility] GLUCOSE (AUTOMATED)2021-03-22 02:18:47 Test Item Value Reference Range Interpretation Comments POCT GLU (test code = 0366905360) 221 mg/dL 70-110 H Lab Interpretation (test code = Abnormal 56328-0) [facility] GLUCOSE (AUTOMATED)2021-03-21 22:41:30 Test Item Value Reference Range Interpretation Comments POCT GLU (test code = 3952181661) 92 mg/dL 70-110 Lab Interpretation (test code = Normal 21697-2) [facility] 22:41:30 Test Item Value Reference Range Interpretation Comments POCT GLU (test code = 6782293027) 92 mg/dL 70-110 Lab Interpretation (test code = Normal 25727-3) [facility] CULTURE [id number] 18:01:28 Test Item Value Reference Range Interpretation Comments Blood Culture-Aerobic No organisms No growth Previo us (test code = 86994-0) isolated prelim inary verified result was Culture In Progress on 03/16/2021 at 15 01 CSTPrevious preliminary verified result was No growth a t 24 hours on 03/17/2021 at 12 01 CSTPrevious preliminary verified result was No growth a t 48 hours on 03/18/2021 at 12 02 CSTPrevious preliminary verified result was No growth a t 72 hours on 03/19/2021 at 12 01 [employer] Blood No organisms No growth Previous Culture-Anaerobic isolated preliminar y (test code = 48937-7) verifi ed result was Culture In Progress on 03/16/2021 at 15 01 CSTPrevious preliminary verified result was No growth a t 24 hours on 03/17/2021 at 12 01 CSTPrevious preliminary verified result was No growth a t 48 hours on 03/18/2021 at 12 02 CSTPrevious preliminary verified result was No growth a t 72 hours on 03/19/2021 at 12 01 [employer] Lab Interpretation Normal (test code = 45075-2) [facility] CULTURE [id number] 18:01:28 Test Item Value Reference Range Interpretation Comments Blood Culture-Aerobic No organisms No growth Previo us (test code = 36443-2) isolated prelim inary verified result was Culture In Progress on 03/16/2021 at 15 01 CSTPrevious preliminary verified result was No growth a t 24 hours on 03/17/2021 at 12 01 CSTPrevious preliminary verified result was No growth a t 48 hours on 03/18/2021 at 12 02 CSTPrevious preliminary verified result was No growth a t 72 hours on 03/19/2021 at 12 01 [employer] Blood No organisms No growth Previous Culture-Anaerobic isolated preliminar y (test code = 72199-7) verifi ed result was Culture In Progress on 03/16/2021 at 15 01 CSTPrevious preliminary verified result was No growth a t 24 hours on 03/17/2021 at 12 01 CSTPrevious preliminary verified result was No growth a t 48 hours on 03/18/2021 at 12 02 CSTPrevious preliminary verified result was No growth a t 72 hours on 03/19/2021 at 12 01 [employer] Lab Interpretation Normal (test code = 45431-5) [facility] CULTURE [id number] 18:01:28 Test Item Value Reference Range Interpretation Comments Blood Culture-Aerobic No organisms No growth Previo us (test code = 07393-7) isolated prelim inary verified result was Culture In Progress on 03/16/2021 at 15 01 CSTPrevious preliminary verified result was No growth a t 24 hours on 03/17/2021 at 12 01 CSTPrevious preliminary verified result was No growth a t 48 hours on 03/18/2021 at 12 02 CSTPrevious preliminary verified result was No growth a t 72 hours on 03/19/2021 at 12 01 [employer] Blood No organisms No growth Previous Culture-Anaerobic isolated preliminar y (test code = 88623-3) verifi ed result was Culture In Progress on 03/16/2021 at 15 01 CSTPrevious preliminary verified result was No growth a t 24 hours on 03/17/2021 at 12 01 CSTPrevious preliminary verified result was No growth a t 48 hours on 03/18/2021 at 12 02 CSTPrevious preliminary verified result was No growth a t 72 hours on 03/19/2021 at 12 01 [employer] Lab Interpretation Normal (test code = 06319-8) [facility] CULTURE [id number] 18:01:28 Test Item Value Reference Range Interpretation Comments Blood Culture-Aerobic No organisms No growth Previo us (test code = 77432-2) isolated prelim inary verified result was Culture In Progress on 03/16/2021 at 15 01 CSTPrevious preliminary verified result was No growth a t 24 hours on 03/17/2021 at 12 01 CSTPrevious preliminary verified result was No growth a t 48 hours on 03/18/2021 at 12 02 CSTPrevious preliminary verified result was No growth a t 72 hours on 03/19/2021 at 12 01 [employer] Blood No organisms No growth Previous Culture-Anaerobic isolated preliminar y (test code = 14103-0) verifi ed result was Culture In Progress on 03/16/2021 at 15 01 CSTPrevious preliminary verified result was No growth a t 24 hours on 03/17/2021 at 12 01 CSTPrevious preliminary verified result was No growth a t 48 hours on 03/18/2021 at 12 02 CSTPrevious preliminary verified result was No growth a t 72 hours on 03/19/2021 at 12 01 [employer] Lab Interpretation Normal (test code = 89415-9) [facility] GLUCOSE (AUTOMATED)2021-03-21 17:27:07 Test Item Value Reference Range Interpretation Comments POCT GLU (test code = 3047900100) 280 mg/dL 70-110 H Lab Interpretation (test code = Abnormal 03804-5) [facility] GLUCOSE (AUTOMATED)2021-03-21 17:27:07 Test Item Value Reference Range Interpretation Comments POCT GLU (test code = 6044390862) 280 mg/dL 70-110 H Lab Interpretation (test code = Abnormal 57911-5) [facility] GLUCOSE (AUTOMATED)2021-03-21 13:31:44 Test Item Value Reference Range Interpretation Comments POCT GLU (test code = 8174326556) 135 mg/dL 70-110 H Lab Interpretation (test code = Abnormal 25920-6) [facility] GLUCOSE (AUTOMATED)2021-03-21 13:31:44 Test Item Value Reference Range Interpretation Comments POCT GLU (test code = 5244057465) 135 mg/dL 70-110 H Lab Interpretation (test code = Abnormal 31997-3) [facility] METABOLIC PANEL (NA, K, CL, CO2, GLUCOSE, BUN, CREATININE, CA)2021-03-21 11:24:38 Test Item Value Reference Range Interpretation Comments NA (test code = 133 mmol/L 135-145 L 9544348325) K (test code = 4.7 mmol/L 3.5-5.0 0282835424) CL (test code = 105 mmol/L 98-108 6450587202) CO2 TOTAL (test code = 22 mmol/L 23-31 L 5208911865) AGAP (test code = 2-16 4091269138) BUN (test code = 28 mg/dL 7-23 H 4317706798) GLUCOSE (test code = 137 mg/dL 70-110 H 9108636244) CREATININE (test code = 0.76 mg/dL 0.60-1.25 2317573206) CALCIUM (test code = 8.5 mg/dL 8.6-10.6 L 2871614323) eGFR (test code = mL/min/1.73m2 6304628947) POP (test code = POP) Association of [...] tests). Lab Interpretation Abnormal (test code = 35474-2) [facility] METABOLIC PANEL (NA, K, CL, CO2, GLUCOSE, BUN, CREATININE, CA)2021-03-21 11:24:38 Test Item Value Reference Range Interpretation Comments NA (test code = 133 mmol/L 135-145 L 2762013821) K (test code = 4.7 mmol/L 3.5-5.0 0734444913) CL (test code = 105 mmol/L 98-108 7585177457) CO2 TOTAL (test code = 22 mmol/L 23-31 L 6009454521) AGAP (test code = 2-16 2558114721) BUN (test code = 28 mg/dL 7-23 H 4864264459) GLUCOSE (test code = 137 mg/dL 70-110 H 5382395726) CREATININE (test code = 0.76 mg/dL 0.60-1.25 4172331423) CALCIUM (test code = 8.5 mg/dL 8.6-10.6 L 5666378771) eGFR (test code = mL/min/1.73m2 9315589448) POP (test code = POP) Association of [...] tests). Lab Interpretation Abnormal (test code = 59474-6) [facility] WITH [id number] 11:01:33 Test Item Value Reference Range Interpretation [...] RDW-SD (test code = 45.6 fL 38.5-51.6 45967-1) RDW-CV (test code = 13.6 % 12.1-15.4 788-0) PLT (test code = See_Comment H [Automated 777-3) message] The system which generated this result transmit qing reference range : 150 - 328 10*3/ ?L. The reference range was not u sed to interpret th is result as normal/abnormal . MPV (test code = 9.0 fL 9.8-13.0 L 35597-2) NRBC/100 WBC (test See_Comment [Automat ed code = 2825106350) message] The system which generated this result transmit qing reference range : 0.0 - 10.0 /100 WBCs. The reference range was not used to interpret this result as normal/abnormal . NRBC x10^3 (test code <0.01 See_Comment [Auto mated = 2786477549) message] The system which generated this result transmit qing reference range : 10*3/?L. The reference range was not used to interpret this result as normal/abnormal . GRAN MAT (NEUT) % 80.4 % (test code = 770-8) IMM GRAN % (test code 0.60 % = 3118456182) LYMPH % (test code = 11.4 % 736-9) MONO % (test code = 6.1 % 5905-5) EOS % (test code = 1.1 % 713-8) BASO % (test code = 0.4 % 706-2) GRAN MAT x10^3(ANC) 13.72 10*3/uL 1.99-6.95 H (test code = 3222094881) IMM GRAN x10^3 (test 0.11 10*3/uL 0.00-0.06 H code = 6440026062) LYMPH x10^3 (test code 1.94 10*3/uL 1.09-3.23 = 731-0) MONO x10^3 (test code 1.04 10*3/uL 0.36-1.02 H = 742-7) EOS x10^3 (test code = 0.19 10*3/uL 0.06-0.53 711-2) BASO x10^3 (test code 0.06 10*3/uL 0.01-0.09 = 704-7) Lab Interpretation Abnormal (test code = 64478-8) [facility] WITH [id number] 11:01:33 Test Item Value Reference Range Interpretation [...] RDW-SD (test code = 45.6 fL 38.5-51.6 58521-9) RDW-CV (test code = 13.6 % 12.1-15.4 788-0) PLT (test code = See_Comment H [Automated 777-3) message] The system which generated this result transmit qing reference range : 150 - 328 10*3/ ?L. The reference range was not u sed to interpret th is result as normal/abnormal . MPV (test code = 9.0 fL 9.8-13.0 L 27847-1) NRBC/100 WBC (test See_Comment [Automat ed code = 4299838197) message] The system which generated this result transmit qing reference range : 0.0 - 10.0 /100 WBCs. The reference range was not used to interpret this result as normal/abnormal . NRBC x10^3 (test code <0.01 See_Comment [Auto mated = 3830327439) message] The system which generated this result transmit qing reference range : 10*3/?L. The reference range was not used to interpret this result as normal/abnormal . GRAN MAT (NEUT) % 80.4 % (test code = 770-8) IMM GRAN % (test code 0.60 % = 4764887962) LYMPH % (test code = 11.4 % 736-9) MONO % (test code = 6.1 % 5905-5) EOS % (test code = 1.1 % 713-8) BASO % (test code = 0.4 % 706-2) GRAN MAT x10^3(ANC) 13.72 10*3/uL 1.99-6.95 H (test code = 4205432383) IMM GRAN x10^3 (test 0.11 10*3/uL 0.00-0.06 H code = 4938521996) LYMPH x10^3 (test code 1.94 10*3/uL 1.09-3.23 = 731-0) MONO x10^3 (test code 1.04 10*3/uL 0.36-1.02 H = 742-7) EOS x10^3 (test code = 0.19 10*3/uL 0.06-0.53 711-2) BASO x10^3 (test code 0.06 10*3/uL 0.01-0.09 = 704-7) Lab Interpretation Abnormal (test code = 40822-6) [facility] GLUCOSE (AUTOMATED)2021-03-21 02:05:00 Test Item Value Reference Range Interpretation Comments POCT GLU (test code = 127 mg/dL 70-110 H Notifi ed Provider [id number]) Lab Interpretation (test Abnormal code = 46742-4) [facility] GLUCOSE (AUTOMATED)2021-03-21 02:05:00 Test Item Value Reference Range Interpretation Comments POCT GLU (test code = 127 mg/dL 70-110 H Notifi ed Provider 4732329006) Lab Interpretation (test Abnormal code = 07009-9) [facility] GLUCOSE (AUTOMATED)2021-03-20 22:05:19 Test Item Value Reference Range Interpretation Comments POCT GLU (test code = 7783752520) 130 mg/dL 70-110 H Lab Interpretation (test code = Abnormal 79655-2) [facility] GLUCOSE (AUTOMATED)2021-03-20 22:05:19 Test Item Value Reference Range Interpretation Comments POCT GLU (test code = 9218832604) 130 mg/dL 70-110 H Lab Interpretation (test code = Abnormal 27864-1) [facility] [id number] 19:01:22 Test Item Value Reference Range Interpretation Comments Blood Culture-Aerobic No organisms No growth Previo us (test code = 92191-3) isolated prelim inary verified result was Culture In 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/2021 at 16 01 CSTPrevious preliminary verified result was No growth a t 24 hours on 03/16/2021 at 13 01 CSTPrevious preliminary verified result was No growth a t 48 hours on 03/17/2021 at 13 01 CSTPrevious preliminary verified result was No growth a t 72 hours on 03/18/2021 at 13 01 [employer] Blood No organisms No growth Previous Culture-Anaerobic isolated preliminar y (test code = 91230-1) verifi ed result was Culture In 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/2021 at 16 01 CSTPrevious preliminary verified result was No growth a t 24 hours on 03/16/2021 at 13 01 CSTPrevious preliminary verified result was No growth a t 48 hours on 03/17/2021 at 13 01 CSTPrevious preliminary verified result was No growth a t 72 hours on 03/18/2021 at 13 01 [employer] Lab Interpretation Normal (test code = 06506-9) [facility] [id number] 19:01:22 Test Item Value Reference Range Interpretation Comments Blood Culture-Aerobic No organisms No growth Previo us (test code = 29294-4) isolated prelim inary verified result was Culture In 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/2021 at 16 01 CSTPrevious preliminary verified result was No growth a t 24 hours on 03/16/2021 at 13 01 CSTPrevious preliminary verified result was No growth a t 48 hours on 03/17/2021 at 13 01 CSTPrevious preliminary verified result was No growth a t 72 hours on 03/18/2021 at 13 01 [employer] Blood No organisms No growth Previous Culture-Anaerobic isolated preliminar y (test code = 35449-1) verifi ed result was Culture In 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/2021 at 16 01 CSTPrevious preliminary verified result was No growth a t 24 hours on 03/16/2021 at 13 01 CSTPrevious preliminary verified result was No growth a t 48 hours on 03/17/2021 at 13 01 CSTPrevious preliminary verified result was No growth a t 72 hours on 03/18/2021 at 13 01 [employer] Lab Interpretation Normal (test code = 89781-8) [facility] GLUCOSE (AUTOMATED)2021-03-20 18:18:30 Test Item Value Reference Range Interpretation Comments POCT GLU (test code = 6800128520) 127 mg/dL 70-110 H Lab Interpretation (test code = Abnormal 55496-1) [facility] GLUCOSE (AUTOMATED)2021-03-20 18:18:30 Test Item Value Reference Range Interpretation Comments POCT GLU (test code = 5962715050) 127 mg/dL 70-110 H Lab Interpretation (test code = Abnormal 68461-6) [facility] GLUCOSE (AUTOMATED)2021-03-20 16:31:11 Test Item Value Reference Range Interpretation Comments POCT GLU (test code = 7631601125) 118 mg/dL 70-110 H Lab Interpretation (test code = Abnormal 29669-1) [facility] 16:31:11 Test Item Value Reference Range Interpretation Comments POCT GLU (test code = 4937774259) 118 mg/dL 70-110 H Lab Interpretation (test code = Abnormal 09842-9) [facility] METABOLIC PANEL (NA, K, CL, CO2, GLUCOSE, BUN, CREATININE, CA)2021-03-20 13:08:50 Test Item Value Reference Range Interpretation Comments NA (test code = 129 mmol/L 135-145 L 4561005559) K (test code = 5.1 mmol/L 3.5-5.0 H 4762132084) CL (test code = 100 mmol/L 98-108 2299583002) CO2 TOTAL (test code = 21 mmol/L 23-31 L 1994582086) AGAP (test code = 2-16 7833263894) BUN (test code = 39 mg/dL 7-23 H 2260819795) GLUCOSE (test code = 120 mg/dL 70-110 H 3374976216) CREATININE (test code = 0.70 mg/dL 0.60-1.25 3631255696) CALCIUM (test code = 8.7 mg/dL 8.6-10.6 1387327175) eGFR (test code = mL/min/1.73m2 0196816776) POP (test code = POP) Association of [...] tests). Lab Interpretation Abnormal (test code = 87555-5) [facility] METABOLIC PANEL (NA, K, CL, CO2, GLUCOSE, BUN, CREATININE, CA)2021-03-20 13:08:50 Test Item Value Reference Range Interpretation Comments NA (test code = 129 mmol/L 135-145 L 0338905957) K (test code = 5.1 mmol/L 3.5-5.0 H 9166359457) CL (test code = 100 mmol/L 98-108 3036801526) CO2 TOTAL (test code = 21 mmol/L 23-31 L 1993513742) AGAP (test code = 2-16 0279171918) BUN (test code = 39 mg/dL 7-23 H 3304384159) GLUCOSE (test code = 120 mg/dL 70-110 H 7210562105) CREATININE (test code = 0.70 mg/dL 0.60-1.25 0656103013) CALCIUM (test code = 8.7 mg/dL 8.6-10.6 3148384978) eGFR (test code = mL/min/1.73m2 1073481379) POP (test code = POP) Association of [...] tests). Lab Interpretation Abnormal (test code = 32649-3) [facility] WITH [id number] 12:44:04 Test Item Value Reference Range Interpretation [...] RDW-SD (test code = 44.3 fL 38.5-51.6 68166-2) RDW-CV (test code = 13.0 % 12.1-15.4 788-0) PLT (test code = See_Comment H [Automated 777-3) message] The system which generated this result transmit qing reference range : 150 - 328 10*3/ ?L. The reference range was not u sed to interpret th is result as normal/abnormal . MPV (test code = 9.5 fL 9.8-13.0 L 35161-4) NRBC/100 WBC (test See_Comment [Automat ed code = 8605282659) message] The system which generated this result transmit qing reference range : 0.0 - 10.0 /100 WBCs. The reference range was not used to interpret this result as normal/abnormal . NRBC x10^3 (test code <0.01 See_Comment [Auto mated = 6715469633) message] The system which generated this result transmit qing reference range : 10*3/?L. The reference range was not used to interpret this result as normal/abnormal . GRAN MAT (NEUT) % 79.5 % (test code = 770-8) IMM GRAN % (test code 0.70 % = 2244059729) LYMPH % (test code = 12.6 % 736-9) MONO % (test code = 5.2 % 5905-5) EOS % (test code = 1.7 % 713-8) BASO % (test code = 0.3 % 706-2) GRAN MAT x10^3(ANC) 11.98 10*3/uL 1.99-6.95 H (test code = 1676073284) IMM GRAN x10^3 (test 0.10 10*3/uL 0.00-0.06 H code = 6668763592) LYMPH x10^3 (test code 1.90 10*3/uL 1.09-3.23 = 731-0) MONO x10^3 (test code 0.79 10*3/uL 0.36-1.02 = 742-7) EOS x10^3 (test code = 0.26 10*3/uL 0.06-0.53 711-2) BASO x10^3 (test code 0.05 10*3/uL 0.01-0.09 = 704-7) Lab Interpretation Abnormal (test code = 80941-1) [facility] WITH [id number] 12:44:04 Test Item Value Reference Range Interpretation [...] RDW-SD (test code = 44.3 fL 38.5-51.6 75082-7) RDW-CV (test code = 13.0 % 12.1-15.4 788-0) PLT (test code = See_Comment H [Automated 777-3) message] The system which generated this result transmit qing reference range : 150 - 328 10*3/ ?L. The reference range was not u sed to interpret th is result as normal/abnormal . MPV (test code = 9.5 fL 9.8-13.0 L 81534-0) NRBC/100 WBC (test See_Comment [Automat ed code = 8108310489) message] The system which generated this result transmit qing reference range : 0.0 - 10.0 /100 WBCs. The reference range was not used to interpret this result as normal/abnormal . NRBC x10^3 (test code <0.01 See_Comment [Auto mated = 2625826448) message] The system which generated this result transmit qing reference range : 10*3/?L. The reference range was not used to interpret this result as normal/abnormal . GRAN MAT (NEUT) % 79.5 % (test code = 770-8) IMM GRAN % (test code 0.70 % = 9707520705) LYMPH % (test code = 12.6 % 736-9) MONO % (test code = 5.2 % 5905-5) EOS % (test code = 1.7 % 713-8) BASO % (test code = 0.3 % 706-2) GRAN MAT x10^3(ANC) 11.98 10*3/uL 1.99-6.95 H (test code = 7268641873) IMM GRAN x10^3 (test 0.10 10*3/uL 0.00-0.06 H code = 2612307237) LYMPH x10^3 (test code 1.90 10*3/uL 1.09-3.23 = 731-0) MONO x10^3 (test code 0.79 10*3/uL 0.36-1.02 = 742-7) EOS x10^3 (test code = 0.26 10*3/uL 0.06-0.53 711-2) BASO x10^3 (test code 0.05 10*3/uL 0.01-0.09 = 704-7) Lab Interpretation Abnormal (test code = 05738-7) [facility] GLUCOSE (AUTOMATED)2021-03-19 23:48:28 Test Item Value Reference Range Interpretation Comments POCT GLU (test code = 8879095604) 131 mg/dL 70-110 H Lab Interpretation (test code = Abnormal 68520-1) [facility] GLUCOSE (AUTOMATED)2021-03-19 23:48:28 Test Item Value Reference Range Interpretation Comments POCT GLU (test code = 8229106470) 131 mg/dL 70-110 H Lab Interpretation (test code = Abnormal 89161-5) [facility] GLUCOSE (AUTOMATED)2021-03-19 17:56:46 Test Item Value Reference Range Interpretation Comments POCT GLU (test code = 8088119006) 128 mg/dL 70-110 H Lab Interpretation (test code = Abnormal 35582-6) [facility] GLUCOSE (AUTOMATED)2021-03-19 17:56:46 Test Item Value Reference Range Interpretation Comments POCT GLU (test code = 0555856887) 128 mg/dL 70-110 H Lab Interpretation (test code = Abnormal 79248-7) [facility] GLUCOSE (AUTOMATED)2021-03-19 14:18:18 Test Item Value Reference Range Interpretation Comments POCT GLU (test code = 0137797899) 100 mg/dL 70-110 Lab Interpretation (test code = Normal 63509-3) [facility] GLUCOSE (AUTOMATED)2021-03-19 14:18:18 Test Item Value Reference Range Interpretation Comments POCT GLU (test code = 0730470254) 100 mg/dL 70-110 Lab Interpretation (test code = Normal 35909-5) [facility] METABOLIC PANEL (NA, K, CL, CO2, GLUCOSE, BUN, CREATININE, CA)2021-03-19 11:17:21 Test Item Value Reference Range Interpretation Comments NA (test code = 130 mmol/L 135-145 L 6072964236) K (test code = 5.1 mmol/L 3.5-5.0 H 4359360875) CL (test code = 101 mmol/L 98-108 3466650200) CO2 TOTAL (test code = 22 mmol/L 23-31 L 0018340322) AGAP (test code = 2-16 8395206577) BUN (test code = 19 mg/dL 7-23 9118601683) GLUCOSE (test code = 95 mg/dL 70-110 9338826866) CREATININE (test code = 0.75 mg/dL 0.60-1.25 2409103121) CALCIUM (test code = 9.0 mg/dL 8.6-10.6 2817173204) eGFR (test code = mL/min/1.73m2 0738468246) POP (test code = POP) Association of [...] tests). Lab Interpretation Abnormal (test code = 71705-8) [facility] METABOLIC PANEL (NA, K, CL, CO2, GLUCOSE, BUN, CREATININE, CA)2021-03-19 11:17:21 Test Item Value Reference Range Interpretation Comments NA (test code = 130 mmol/L 135-145 L 2312398783) K (test code = 5.1 mmol/L 3.5-5.0 H 3986616684) CL (test code = 101 mmol/L 98-108 8291791218) CO2 TOTAL (test code = 22 mmol/L 23-31 L 4105648853) AGAP (test code = 2-16 7452818676) BUN (test code = 19 mg/dL 7-23 1537606302) GLUCOSE (test code = 95 mg/dL 70-110 1646067027) CREATININE (test code = 0.75 mg/dL 0.60-1.25 6735119059) CALCIUM (test code = 9.0 mg/dL 8.6-10.6 0634023621) eGFR (test code = mL/min/1.73m2 4704861053) POP (test code = POP) Association of [...] tests). Lab Interpretation Abnormal (test code = 53287-1) [facility] GLUCOSE (AUTOMATED)2021-03-18 23:30:38 Test Item Value Reference Range Interpretation Comments POCT GLU (test code = 5044203117) 126 mg/dL 70-110 H Lab Interpretation (test code = Abnormal 43818-6) [facility] GLUCOSE (AUTOMATED)2021-03-18 23:30:38 Test Item Value Reference Range Interpretation Comments POCT GLU (test code = 9857318729) 126 mg/dL 70-110 H Lab Interpretation (test code = Abnormal 72483-3) [facility] GLUCOSE (AUTOMATED)2021-03-18 18:01:48 Test Item Value Reference Range Interpretation Comments POCT GLU (test code = 8309139674) 122 mg/dL 70-110 H Lab Interpretation (test code = Abnormal 18406-7) [facility] GLUCOSE (AUTOMATED)2021-03-18 18:01:48 Test Item Value Reference Range Interpretation Comments POCT GLU (test code = 4311916434) 122 mg/dL 70-110 H Lab Interpretation (test code = Abnormal 80272-2) [facility] CULTURE [id number] 14:30:49 Test Item Value Reference Range Interpretation Comments Blood Culture-Aerobic Culture positive. No growth AA P revious (test code = 28569-4) See Blood prelim inary Culture Workup verified resu lt for additional was Culture I n information. 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/2021 at 16 01 [employer] Lab Interpretation Abnormal (test code = 25847-2) [facility] CULTURE [id number] 14:30:49 Test Item Value Reference Range Interpretation Comments Blood Culture-Aerobic Culture positive. No growth AA P revious (test code = 20785-8) See Blood prelim inary Culture Workup verified resu lt for additional was Culture I n information. 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/2021 at 16 01 [employer] Lab Interpretation Abnormal (test code = 65617-5) [facility] GLUCOSE (AUTOMATED)2021-03-18 14:13:04 Test Item Value Reference Range Interpretation Comments POCT GLU (test code = 9203228348) 85 mg/dL 70-110 Lab Interpretation (test code = Normal 60138-0) [facility] GLUCOSE (AUTOMATED)2021-03-18 14:13:04 Test Item Value Reference Range Interpretation Comments POCT GLU (test code = 4472956006) 85 mg/dL 70-110 Lab Interpretation (test code = Normal 01692-4) [facility] Test Item Value Reference Range Interpretation Comments MAGNESIUM (test code = 7167018962) 1.6 mg/dL 1.7-2.4 L Lab Interpretation (test code = Abnormal 16601-9) [facility]2021-12-08 12:24:26 Test Item Value Reference Range Interpretation Comments MAGNESIUM (test code = 1245445086) 1.6 mg/dL 1.7-2.4 L Lab Interpretation (test code = Abnormal 13992-0) [facility] METABOLIC PANEL (NA, K, CL, CO2, GLUCOSE, BUN, CREATININE, CA)2021-03-18 12:24:06 Test Item Value Reference Range Interpretation Comments NA (test code = 131 mmol/L 135-145 L 4551159434) K (test code = 4.5 mmol/L 3.5-5.0 9996514390) CL (test code = 100 mmol/L 98-108 3772936528) CO2 TOTAL (test code = 25 mmol/L 23-31 5531069671) AGAP (test code = 2-16 3299814771) BUN (test code = 19 mg/dL 7-23 8815331994) GLUCOSE (test code = 87 mg/dL 70-110 1250473127) CREATININE (test code = 0.78 mg/dL 0.60-1.25 9775861147) CALCIUM (test code = 8.8 mg/dL 8.6-10.6 1612581159) eGFR (test code = mL/min/1.73m2 5762902162) POP (test code = POP) Association of [...] tests). Lab Interpretation Abnormal (test code = 65018-2) [facility] METABOLIC PANEL (NA, K, CL, CO2, GLUCOSE, BUN, CREATININE, CA)2021-03-18 12:24:06 Test Item Value Reference Range Interpretation Comments NA (test code = 131 mmol/L 135-145 L 5819226048) K (test code = 4.5 mmol/L 3.5-5.0 7692944379) CL (test code = 100 mmol/L 98-108 1871917086) CO2 TOTAL (test code = 25 mmol/L 23-31 9552597463) AGAP (test code = 2-16 5677797767) BUN (test code = 19 mg/dL 7-23 2862298790) GLUCOSE (test code = 87 mg/dL 70-110 6326927700) CREATININE (test code = 0.78 mg/dL 0.60-1.25 0342833384) CALCIUM (test code = 8.8 mg/dL 8.6-10.6 7850567419) eGFR (test code = mL/min/1.73m2 5933358952) POP (test code = POP) Association of [...] tests). Lab Interpretation Abnormal (test code = 95175-9) [facility] WITH [id number] 11:18:58 Test Item Value Reference Range Interpretation [...] RDW-SD (test code = 45.3 fL 38.5-51.6 33491-7) RDW-CV (test code = 13.1 % 12.1-15.4 788-0) PLT (test code = See_Comment H [Automated 777-3) message] The sy stem which generated this result transmitted reference range : 150 - 328 10*3/ ?L. The reference r jalen was not used to interpret this result as normal/abnormal . MPV (test code = 9.3 fL 9.8-13.0 L 71529-9) NRBC/100 WBC (test See_Comment [Automat ed code = 2155800729) message] The system which generated this result transmitted reference range : 0.0 - 10.0 /100 WBCs. The refer ence range was not u sed to interpret th is result as normal/abnormal . NRBC x10^3 (test code <0.01 See_Comment [Auto mated = 5274221998) message] The s ystem which generated this result transmitted reference range : 10*3/?L. The reference range was not used to interpret this result as normal/abnormal . GRAN MAT (NEUT) % 69.4 % (test code = 770-8) IMM GRAN % (test code 0.50 % = 5061139735) LYMPH % (test code = 18.2 % 736-9) MONO % (test code = 7.4 % 5905-5) EOS % (test code = 4.0 % 713-8) BASO % (test code = 0.5 % 706-2) GRAN MAT x10^3(ANC) 7.58 10*3/uL 1.99-6.95 H (test code = 3595231582) IMM GRAN x10^3 (test 0.06 10*3/uL 0.00-0.06 code = 7691331962) LYMPH x10^3 (test code 1.99 10*3/uL 1.09-3.23 = 731-0) MONO x10^3 (test code 0.81 10*3/uL 0.36-1.02 = 742-7) EOS x10^3 (test code = 0.44 10*3/uL 0.06-0.53 711-2) BASO x10^3 (test code 0.06 10*3/uL 0.01-0.09 = 704-7) Lab Interpretation Abnormal (test code = 56952-3) [facility] WITH [id number] 11:18:58 Test Item Value Reference Range Interpretation Comments WBC (test code = See_Comment H [Automated 6690-2) message] The sy stem which generated this result transmitted reference range : 4.20 - 10.70 10*3/?L. The reference range was not used to interpret this result as normal/abnormal . RBC (test code = See_Comment L [Automated 439-8) message] The sy stem which generated this [...] RDW-SD (test code = 45.3 fL 38.5-51.6 54256-9) RDW-CV (test code = 13.1 % 12.1-15.4 788-0) PLT (test code = See_Comment H [Automated 777-3) message] The sy stem which generated this result transmitted reference range : 150 - 328 10*3/ ?L. The reference r jalen was not used to interpret this result as normal/abnormal . MPV (test code = 9.3 fL 9.8-13.0 L 42046-9) NRBC/100 WBC (test See_Comment [Automat ed code = 0200671081) message] The system which generated this result transmitted reference range : 0.0 - 10.0 /100 WBCs. The refer ence range was not u sed to interpret th is result as normal/abnormal . NRBC x10^3 (test code <0.01 See_Comment [Auto mated = 2138772411) message] The s ystem which generated this result transmitted reference range : 10*3/?L. The reference range was not used to interpret this result as normal/abnormal . GRAN MAT (NEUT) % 69.4 % (test code = 770-8) IMM GRAN % (test code 0.50 % = 5569166919) LYMPH % (test code = 18.2 % 736-9) MONO % (test code = 7.4 % 5905-5) EOS % (test code = 4.0 % 713-8) BASO % (test code = 0.5 % 706-2) GRAN MAT x10^3(ANC) 7.58 10*3/uL 1.99-6.95 H (test code = 8035978947) IMM GRAN x10^3 (test 0.06 10*3/uL 0.00-0.06 code = 1902828218) LYMPH x10^3 (test code 1.99 10*3/uL 1.09-3.23 = 731-0) MONO x10^3 (test code 0.81 10*3/uL 0.36-1.02 = 742-7) EOS x10^3 (test code = 0.44 10*3/uL 0.06-0.53 711-2) BASO x10^3 (test code 0.06 10*3/uL 0.01-0.09 = 704-7) Lab Interpretation Abnormal (test code = 87621-8) [facility] GLUCOSE (AUTOMATED)2021-03-17 22:53:20 Test Item Value Reference Range Interpretation Comments POCT GLU (test code = 5122229036) 121 mg/dL 70-110 H Lab Interpretation (test code = Abnormal 15837-3) [facility] GLUCOSE (AUTOMATED)2021-03-17 22:53:20 Test Item Value Reference Range Interpretation Comments POCT GLU (test code = 3010666301) 121 mg/dL 70-110 H Lab Interpretation (test code = Abnormal 26980-2) [facility] GLUCOSE (AUTOMATED)2021-03-17 18:13:55 Test Item Value Reference Range Interpretation Comments POCT GLU (test code = 3010202596) 115 mg/dL 70-110 H Lab Interpretation (test code = Abnormal 99614-5) [facility] GLUCOSE (AUTOMATED)2021-03-17 18:13:55 Test Item Value Reference Range Interpretation Comments POCT GLU (test code = 1142481484) 115 mg/dL 70-110 H Lab Interpretation (test code = Abnormal 11184-9) [facility] [id number] 16:28:08 MILD LEUKOCYTOSIS WITH ABSOLUTE NEUTROPHILIA. NO BLASTS IDENTIFIED. ERYTHROCYTES ARE UNREMARKABLE.THROMBOCYTOSIS.[facility] DIFF CONSULT [id number] 16:28:08MILD LEUKOCYTOSIS WITH ABSOLUTE NEUTROPHILIA. NO BLASTS IDENTIFIED. ERYTHROCYTES ARE UNREMARKABLE. THROMBOCYTOSIS.[facility] GLUCOSE (AUTOMATED) 2021-03-17 13:49:48 Test Item Value Reference Range Interpretation Comments POCT GLU (test code = 7701792182) 96 mg/dL 70-110 Lab Interpretation (test code = Normal 16627-9) [facility] GLUCOSE (AUTOMATED)2021-03-17 13:49:48 Test Item Value Reference Range Interpretation Comments POCT GLU (test code = 5425025228) 96 mg/dL 70-110 Lab Interpretation (test code = Normal 43903-5) [facility] METABOLIC PANEL (NA, K, CL, CO2, GLUCOSE, BUN, CREATININE, CA)2021-03-17 13:21:15 Test Item Value Reference Range Interpretation Comments NA (test code = 131 mmol/L 135-145 L 2525912422) K (test code = 4.3 mmol/L 3.5-5.0 7190276006) CL (test code = 100 mmol/L 98-108 9360626505) CO2 TOTAL (test code = 25 mmol/L 23-31 8254630521) AGAP (test code = 2-16 9345032371) BUN (test code = 16 mg/dL 7-23 8704889360) GLUCOSE (test code = 104 mg/dL 70-110 8525826511) CREATININE (test code = 0.73 mg/dL 0.60-1.25 7887041193) CALCIUM (test code = 8.7 mg/dL 8.6-10.6 2593211984) eGFR (test code = mL/min/1.73m2 8689096103) POP (test code = POP) Association of [...] tests). Lab Interpretation Abnormal (test code = 09672-9) [facility] METABOLIC PANEL (NA, K, CL, CO2, GLUCOSE, BUN, CREATININE, CA)2021-03-17 13:21:15 Test Item Value Reference Range Interpretation Comments NA (test code = 131 mmol/L 135-145 L 8287182076) K (test code = 4.3 mmol/L 3.5-5.0 5739008517) CL (test code = 100 mmol/L 98-108 6816680755) CO2 TOTAL (test code = 25 mmol/L 23-31 2506931732) AGAP (test code = 2-16 2055737579) BUN (test code = 16 mg/dL 7-23 2174087082) GLUCOSE (test code = 104 mg/dL 70-110 7155023193) CREATININE (test code = 0.73 mg/dL 0.60-1.25 2151526600) CALCIUM (test code = 8.7 mg/dL 8.6-10.6 3800284657) eGFR (test code = mL/min/1.73m2 1915447913) POP (test code = POP) Association of [...] tests). Lab Interpretation Abnormal (test code = 74359-5) [facility] (Total Cholesterol, Triglycerides, HDL) - [id number] 12:55:53 Test Item Value Reference Range Interpretation Comments CHOL (test code = 82 mg/dL 120-200 L 2329785591) HDL (test code = 28 mg/dL >40 L 5923224988) HDLC RATIO (test code = See_Comment [Au tomated message] 6821506952) The system [employer] generated this result transmitted ref erence range: <=5.0. T he reference range was not used to int erpret this result as normal/abnormal . TRIG (test code = 88 mg/dL 30-170 9593140210) LDL CHOL (test code = 36 mg/dL See_Comment [Auto mated message] 33108-9) The system [employer] generated this result transmitted ref erence range: <=160. T he reference range was not used to int erpret this result as normal/abnormal . VLDL (test code = 18 mg/dL 5-60 4495171238) Lab Interpretation (test Abnormal code = 78375-7) [facility], [facility]lycerides, HDL[facility] - [id number] 12:55:53 Test Item Value Reference Range Interpretation Comments CHOL (test code = 82 mg/dL 120-200 L 5302820875) HDL (test code = 28 mg/dL >40 L 3265593139) HDLC RATIO (test code = See_Comment [Au tomated message] 4501515374) The system [employer] generated this result transmitted ref erence range: <=5.0. T he reference range was not used to int erpret this result as normal/abnormal . TRIG (test code = 88 mg/dL 30-170 0070123150) LDL CHOL (test code = 36 mg/dL See_Comment [Auto mated message] 37856-2) The system [employer] generated this result transmitted ref erence range: <=160. T he reference range was not used to int erpret this result as normal/abnormal . VLDL (test code = 18 mg/dL 5-60 6714994940) Lab Interpretation (test Abnormal code = 02840-0) [facility] (Total Cholesterol, Triglycerides, HDL) - [id number] 12:55:53 Test Item Value Reference Range Interpretation Comments CHOL (test code = 82 mg/dL 120-200 L 3613217268) HDL (test code = 28 mg/dL >40 L 8984509667) HDLC RATIO (test code = See_Comment [Au tomated message] 9200922895) The system [employer] generated this result transmitted ref erence range: <=5.0. T he reference range was not used to int erpret this result as normal/abnormal . TRIG (test code = 88 mg/dL 30-170 0962526875) LDL CHOL (test code = 36 mg/dL See_Comment [Auto mated message] 66397-5) The system [employer] generated this result transmitted ref erence range: <=160. T he reference range was not used to int erpret this result as normal/abnormal . VLDL (test code = 18 mg/dL 5-60 2234385531) Lab Interpretation (test Abnormal code = 92905-2) [facility] Test Item Value Reference Range Interpretation Comments MAGNESIUM (test code = 0487972312) 1.6 mg/dL 1.7-2.4 L Lab Interpretation (test code = Abnormal 61061-6) [facility] 12:[facility]32 Test Item Value Reference Range Interpretation Comments MAGNESIUM (test code = 6849825096) 1.6 mg/dL 1.7-2.4 L Lab Interpretation (test code = Abnormal 50576-4) [facility] 12:55:12 Test Item Value Reference Range Interpretation Comments PHOSPHORUS (test code = 6481691863) 2.5 mg/dL 2.5-5.0 Lab Interpretation (test code = Normal 24237-8) [facility] 12:55:12 Test Item Value Reference Range Interpretation Comments PHOSPHORUS (test code = 4345346677) 2.5 mg/dL 2.5-5.0 Lab Interpretation (test code = Normal 84482-5) [facility] 12:55:12 Test Item Value Reference Range Interpretation Comments PHOSPHORUS (test code = 4190648462) 2.5 mg/dL 2.5-5.0 Lab Interpretation (test code = Normal 69753-9) [facility] WITH [id number] 12:17:31 Test Item Value Reference Range Interpretation [...] RDW-SD (test code = 45.4 fL 38.5-51.6 48768-1) RDW-CV (test code = 13.2 % 12.1-15.4 788-0) PLT (test code = See_Comment H [Automated 777-3) message] The sy stem which generated this result transmitted reference range : 150 - 328 10*3/ ?L. The reference r jalen was not used to interpret this result as normal/abnormal . MPV (test code = 9.3 fL 9.8-13.0 L 62746-4) NRBC/100 WBC (test See_Comment [Automat ed code = 9882497780) message] The system which generated this result transmitted reference range : 0.0 - 10.0 /100 WBCs. The refer ence range was not u sed to interpret th is result as normal/abnormal . NRBC x10^3 (test code <0.01 See_Comment [Auto mated = 2072918143) message] The s ystem which generated this result transmitted reference range : 10*3/?L. The reference range was not used to interpret this result as normal/abnormal . GRAN MAT (NEUT) % 80.8 % (test code = 770-8) IMM GRAN % (test code 0.40 % = [id number]) LYMPH % (test code = 11.0 % 736-9) MONO % (test code = 5.4 % 5905-5) EOS % (test code = 1.9 % 713-8) BASO % (test code = 0.5 % 706-2) GRAN MAT x10^3(ANC) 9.07 10*3/uL 1.99-6.95 H (test code = [id number]) IMM GRAN x10^3 (test 0.05 10*3/uL 0.00-0.06 code = [id number]) LYMPH x10^3 (test code 1.24 10*3/uL 1.09-3.23 = 731-0) MONO x10^3 (test code 0.61 10*3/uL 0.36-1.02 = 742-7) EOS x10^3 (test code = 0.21 10*3/uL 0.06-0.53 711-2) BASO x10^3 (test code 0.06 10*3/uL 0.01-0.09 = 704-7) Lab Interpretation Abnormal (test code = 05284-6) [facility] WITH [id number] 12:17:31 Test Item Value Reference Range Interpretation [...] RDW-SD (test code = 45.4 fL 38.5-51.6 38444-2) RDW-CV (test code = 13.2 % 12.1-15.4 788-0) PLT (test code = See_Comment H [Automated 777-3) message] The sy stem which generated this result transmitted reference range : 150 - 328 10*3/ ?L. The reference r jalen was not used to interpret this result as normal/abnormal . MPV (test code = 9.3 fL 9.8-13.0 L 36652-3) NRBC/100 WBC (test See_Comment [Automat ed code = 1004519843) message] The system which generated this result transmitted reference range : 0.0 - 10.0 /100 WBCs. The refer ence range was not u sed to interpret th is result as normal/abnormal . NRBC x10^3 (test code <0.01 See_Comment [Auto mated = 1284334157) message] The s ystem which generated this result transmitted reference range : 10*3/?L. The reference range was not used to interpret this result as normal/abnormal . GRAN MAT (NEUT) % 80.8 % (test code = 770-8) IMM GRAN % (test code 0.40 % = 6131766581) LYMPH % (test code = 11.0 % 736-9) MONO % (test code = 5.4 % 5905-5) EOS % (test code = 1.9 % 713-8) BASO % (test code = 0.5 % 706-2) GRAN MAT x10^3(ANC) 9.07 10*3/uL 1.99-6.95 H (test code = 7108593251) IMM GRAN x10^3 (test 0.05 10*3/uL 0.00-0.06 code = 6861999283) LYMPH x10^3 (test code 1.24 10*3/uL 1.09-3.23 = 731-0) MONO x10^3 (test code 0.61 10*3/uL 0.36-1.02 = 742-7) EOS x10^3 (test code = 0.21 10*3/uL 0.06-0.53 711-2) BASO x10^3 (test code 0.06 10*3/uL 0.01-0.09 = 704-7) Lab Interpretation Abnormal (test code = 18086-4) [facility] 01:47:27 Test Item Value Reference Range Interpretation Comments HGB A1C (test code = 5.9 % 4.0-5.7 H 4548-4) POP (test code = POP) Reference RangesNormal: <5.7%Prediabetes: 5.7 - 6.4%Diabetes: > 6.5% Lab Interpretation (test Abnormal code = 81162-5) [facility]2021-03-17 01:47:27 Test Item Value Reference Range Interpretation Comments HGB A1C (test code = 5.9 % 4.0-5.7 H 4548-4) POP (test code = POP) Reference RangesNormal: <5.7%Prediabetes: 5.7 - 6.4%Diabetes: > 6.5% Lab Interpretation (test Abnormal code = 92478-5) [facility]2021-03-17 01:47:27 Test Item Value Reference Range Interpretation Comments HGB A1C (test code = 5.9 % 4.0-5.7 H 4548-4) POP (test code = POP) Reference RangesNormal: <5.7%Prediabetes: 5.7 - 6.4%Diabetes: > 6.5% Lab Interpretation (test Abnormal code = 18554-9) [facility] GLUCOSE (AUTOMATED)2021-03-16 23:09:50 Test Item Value Reference Range Interpretation Comments POCT GLU (test code = 6164046500) 134 mg/dL 70-110 H Lab Interpretation (test code = Abnormal 99845-0) [facility] GLUCOSE (AUTOMATED)2021-03-16 23:09:50 Test Item Value Reference Range Interpretation Comments POCT GLU (test code = 7125960657) 134 mg/dL 70-110 H Lab Interpretation (test code = Abnormal 04711-1) [facility] POSITIVE BLOOD PATHOGENS DNA [id number] 20:26:17 Test Item Value Reference Range Interpretation Comments Gram Positive Blood No organisms included in Pathogens DNA the Blood DNA Probe test Probe-Aerobic (test panel were detected. code = 71821-3) Further identification workup to be performed by culture testing methods. POP (test code = See blood culture result POP) for additional information. Testing included eleven identification and three resistancemarker targets. [facility] POSITIVE BLOOD PATHOGENS DNA [id number] 20:26:17 Test Item Value Reference Range Interpretation Comments Gram Positive Blood No organisms included in Pathogens DNA the Blood DNA Probe test Probe-Aerobic (test panel were detected. code = 81361-6) Further identification workup to be performed by culture testing methods. POP (test code = See blood culture result POP) for additional information. Testing included eleven identification and three resistancemarker targets. [facility] POSITIVE BLOOD PATHOGENS DNA [id number] 20:26:17 Test Item Value Reference Range Interpretation Comments Gram Positive Blood No organisms included in Pathogens DNA the Blood DNA Probe test Probe-Aerobic (test panel were detected. code = 31986-5) Further identification workup to be performed by culture testing methods. POP (test code = See blood culture result POP) for additional information. Testing included eleven identification and three resistancemarker targets. [facility] GLUCOSE (AUTOMATED)2021-03-16 18:07:59 Test Item Value Reference Range Interpretation Comments POCT GLU (test code = 0320289943) 125 mg/dL 70-110 H Lab Interpretation (test code = Abnormal 09607-8) [facility] GLUCOSE (AUTOMATED)2021-03-16 18:07:59 Test Item Value Reference Range Interpretation Comments POCT GLU (test code = 8610752184) 125 mg/dL 70-110 H Lab Interpretation (test code = Abnormal 48723-1) [facility] METABOLIC PANEL (NA, K, CL, CO2, GLUCOSE, BUN, CREATININE, CA)2021-03-16 17:53:54 Test Item Value Reference Range Interpretation Comments NA (test code = 132 mmol/L 135-145 L 5917304681) K (test code = 3.0 mmol/L 3.5-5.0 L 1672728894) CL (test code = 95 mmol/L 98-108 L 6890318661) CO2 TOTAL (test code = 29 mmol/L 23-31 4655577174) AGAP (test code = 2-16 4109426367) BUN (test code = 14 mg/dL 7-23 5075621695) GLUCOSE (test code = 136 mg/dL 70-110 H 8687703134) CREATININE (test code = 0.79 mg/dL 0.60-1.25 7026907126) CALCIUM (test code = 9.6 mg/dL 8.6-10.6 3695925535) eGFR (test code = mL/min/1.73m2 1880404813) POP (test code = POP) Association of [...] tests). Lab Interpretation Abnormal (test code = 18522-4) [facility] METABOLIC PANEL (NA, K, CL, CO2, GLUCOSE, BUN, CREATININE, CA)2021-03-16 17:53:54 Test Item Value Reference Range Interpretation Comments NA (test code = 132 mmol/L 135-145 L 9284959918) K (test code = 3.0 mmol/L 3.5-5.0 L 6178181819) CL (test code = 95 mmol/L 98-108 L 3975759948) CO2 TOTAL (test code = 29 mmol/L 23-31 3998223738) AGAP (test code = 2-16 2905014240) BUN (test code = 14 mg/dL 7-23 0165547686) GLUCOSE (test code = 136 mg/dL 70-110 H 3552902211) CREATININE (test code = 0.79 mg/dL 0.60-1.25 5138017205) CALCIUM (test code = 9.6 mg/dL 8.6-10.6 4016347241) eGFR (test code = mL/min/1.73m2 8902472871) POP (test code = POP) Association of [...] tests). Lab Interpretation Abnormal (test code = 69631-2) [facility] 16:33:30 Test Item Value Reference Range Interpretation Comments Procalcitonin (test 0.05 ng/mL <0.07 code = 1220446918) POP (test code = POP) INTERPRETATION OF [...] lung abscess/empyema. For further information please refer to:[email or web address] Lab Interpretation Normal (test code = 55039-0) [facility]21[facility] 16:33:30 Test Item Value Reference Range Interpretation Comments Procalcitonin (test 0.05 ng/mL <0.07 code = 7493295109) POP (test code = POP) INTERPRETATION OF [...] lung abscess/empyema. For further information please refer to:[email or web address] Lab Interpretation Normal (test code = 19798-0) [facility]21-[facility]-06 16:33:30 Test Item Value Reference Range Interpretation Comments Procalcitonin (test 0.05 ng/mL <0.07 code = 0424604034) POP (test code = POP) INTERPRETATION OF [...] lung abscess/empyema. For further information please refer to:[email or web address] Lab Interpretation Normal (test code = 36259-4) [facility]2021-12-06 14:05:27 Test Item Value Reference Range Interpretation Comments MAGNESIUM (test code = 4738819092) 1.7 mg/dL 1.7-2.4 Lab Interpretation (test code = Normal 79246-0) [facility]2021-12-06 14:05:27 Test Item Value Reference Range Interpretation Comments MAGNESIUM (test code = 8662324207) 1.7 mg/dL 1.7-2.4 Lab Interpretation (test code = Normal 99273-2) [facility] GLUCOSE (AUTOMATED)2021-03-16 13:56:02 Test Item Value Reference Range Interpretation Comments POCT GLU (test code = 5516314489) 126 mg/dL 70-110 H Lab Interpretation (test code = Abnormal 49281-5) [facility] GLUCOSE (AUTOMATED)2021-03-16 13:56:02 Test Item Value Reference Range Interpretation Comments POCT GLU (test code = 1878344940) 126 mg/dL 70-110 H Lab Interpretation (test code = Abnormal 33800-7) [facility] with [id number] 12:25:24 Test Item Value Reference Range Interpretation [...] RDW-SD (test code = 43.7 fL 38.5-51.6 37383-7) RDW-CV (test code = 13.2 % 12.1-15.4 788-0) PLT (test code = See_Comment H [Automated 777-3) message] The system which generated this result transmit qing reference range : 150 - 328 10*3/ ?L. The reference range was not u sed to interpret th is result as normal/abnormal . MPV (test code = 9.2 fL 9.8-13.0 L 64046-2) NRBC/100 WBC (test See_Comment [Automat ed code = 8455927270) message] The system which generated this result transmit qing reference range : 0.0 - 10.0 /100 WBCs. The reference range was not used to interpret this result as normal/abnormal . NRBC x10^3 (test code <0.01 See_Comment [Auto mated = 6814229085) message] The system which generated this result transmit qing reference range : 10*3/?L. The reference range was not used to interpret this result as normal/abnormal . GRAN MAT (NEUT) % 85.4 % (test code = 770-8) IMM GRAN % (test code 0.70 % = 9270177283) LYMPH % (test code = 8.2 % 736-9) MONO % (test code = 4.5 % 5905-5) EOS % (test code = 0.8 % 713-8) BASO % (test code = 0.4 % 706-2) GRAN MAT x10^3(ANC) 13.38 10*3/uL 1.99-6.95 H (test code = 1689364848) IMM GRAN x10^3 (test 0.11 10*3/uL 0.00-0.06 H code = 7280057323) LYMPH x10^3 (test code 1.29 10*3/uL 1.09-3.23 = 731-0) MONO x10^3 (test code 0.70 10*3/uL 0.36-1.02 = 742-7) EOS x10^3 (test code = 0.13 10*3/uL 0.06-0.53 711-2) BASO x10^3 (test code 0.06 10*3/uL 0.01-0.09 = 704-7) Lab Interpretation Abnormal (test code = 79919-9) [facility] with [id number] 12:25:24 Test Item Value Reference Range Interpretation [...] RDW-SD (test code = 43.7 fL 38.5-51.6 23944-7) RDW-CV (test code = 13.2 % 12.1-15.4 788-0) PLT (test code = See_Comment H [Automated 777-3) message] The system which generated this result transmit qing reference range : 150 - 328 10*3/ ?L. The reference range was not u sed to interpret th is result as normal/abnormal . MPV (test code = 9.2 fL 9.8-13.0 L 35520-2) NRBC/100 WBC (test See_Comment [Automat ed code = 4322074964) message] The system which generated this result transmit qing reference range : 0.0 - 10.0 /100 WBCs. The reference range was not used to interpret this result as normal/abnormal . NRBC x10^3 (test code <0.01 See_Comment [Auto mated = 3959625154) message] The system which generated this result transmit qing reference range : 10*3/?L. The reference range was not used to interpret this result as normal/abnormal . GRAN MAT (NEUT) % 85.4 % (test code = 770-8) IMM GRAN % (test code 0.70 % = 2627458250) LYMPH % (test code = 8.2 % 736-9) MONO % (test code = 4.5 % 5905-5) EOS % (test code = 0.8 % 713-8) BASO % (test code = 0.4 % 706-2) GRAN MAT x10^3(ANC) 13.38 10*3/uL 1.99-6.95 H (test code = 7849733431) IMM GRAN x10^3 (test 0.11 10*3/uL 0.00-0.06 H code = 6247043085) LYMPH x10^3 (test code 1.29 10*3/uL 1.09-3.23 = 731-0) MONO x10^3 (test code 0.70 10*3/uL 0.36-1.02 = 742-7) EOS x10^3 (test code = 0.13 10*3/uL 0.06-0.53 711-2) BASO x10^3 (test code 0.06 10*3/uL 0.01-0.09 = 704-7) Lab Interpretation Abnormal (test code = 88279-5) [facility] Metabolic Panel (NA, K, CL, CO2, GLUCOSE, BUN, CREATININE, CA)2021-03-16 12:09:56 Test Item Value Reference Range Interpretation Comments NA (test code = 133 mmol/L 135-145 L 7068573590) K (test code = 2.8 mmol/L 3.5-5.0 LL 2438472023) CL (test code = 96 mmol/L 98-108 L 2766278888) CO2 TOTAL (test code = 28 mmol/L 23-31 5014037313) AGAP (test code = 2-16 4877725484) BUN (test code = 14 mg/dL 7-23 2913618250) GLUCOSE (test code = 137 mg/dL 70-110 H 1213393399) CREATININE (test code = 0.76 mg/dL 0.60-1.25 7685908357) CALCIUM (test code = 9.4 mg/dL 8.6-10.6 4255487995) eGFR (test code = mL/min/1.73m2 6110706393) POP (test code = POP) Association of [...] tests). Lab Interpretation Abnormal (test code = 27224-4) [facility] Metabolic Panel (NA, K, CL, CO2, GLUCOSE, BUN, CREATININE, CA)2021-03-16 12:09:56 Test Item Value Reference Range Interpretation Comments NA (test code = 133 mmol/L 135-145 L 9807524353) K (test code = 2.8 mmol/L 3.5-5.0 LL 3819678869) CL (test code = 96 mmol/L 98-108 L 5384329747) CO2 TOTAL (test code = 28 mmol/L 23-31 0640702657) AGAP (test code = 2-16 4448122162) BUN (test code = 14 mg/dL 7-23 2434141357) GLUCOSE (test code = 137 mg/dL 70-110 H 9324285891) CREATININE (test code = 0.76 mg/dL 0.60-1.25 1164999732) CALCIUM (test code = 9.4 mg/dL 8.6-10.6 9818325959) eGFR (test code = mL/min/1.73m2 5911477614) POP (test code = POP) Association of [...] tests). Lab Interpretation Abnormal (test code = 91755-3) [facility]44180[facility] (ALB,T.PRO,BILI T,BU/BC,ALT,AST,ALK PHOS)2021-03-16 12:06:58 Test Item Value Reference Range Interpretation Comments TOTAL BILI (test code = 7029169257) 0.7 mg/dL 0.1-1.1 BILI UNCON (test code = 8354703148) 0.4 mg/dL 0.1-1.1 BILI CONJ (test code = 1535782198) 0.0 mg/dL 0.0-0.3 T PROTEIN (test code = 2733247238) 7.6 g/dL 6.3-8.2 ALBUMIN (test code = 7727104847) 4.0 g/dL 3.5-5.0 ALK PHOS (test code = 7263290613) 113 U/L 34-122 ALTv (test code = 1742-6) 23 U/L 5-50 AST(SGOT) (test code = 2838820818) 34 U/L 13-40 Lab Interpretation (test code = Normal 59985-5) [facility] (95521[facility] (ALB,T.PRO,BILI T,BU/BC,ALT,AST,ALK PHOS)2021-03-16 12:06:58 Test Item Value Reference Range Interpretation Comments TOTAL BILI (test code = 9646946647) 0.7 mg/dL 0.1-1.1 BILI UNCON (test code = 9046571864) 0.4 mg/dL 0.1-1.1 BILI CONJ (test code = 2818537645) 0.0 mg/dL 0.0-0.3 T PROTEIN (test code = 3574154072) 7.6 g/dL 6.3-8.2 ALBUMIN (test code = 0477565771) 4.0 g/dL 3.5-5.0 ALK PHOS (test code = 3843366011) 113 U/L 34-122 ALTv (test code = 1742-6) 23 U/L 5-50 AST(SGOT) (test code = 7697201335) 34 U/L 13-40 Lab Interpretation (test code = Normal 00693-6) [facility] GLUCOSE (AUTOMATED)2021-03-15 22:30:07 Test Item Value Reference Range Interpretation Comments POCT GLU (test code = 9441287866) 115 mg/dL 70-110 H Lab Interpretation (test code = Abnormal 77754-6) [facility] GLUCOSE (AUTOMATED)2021-03-15 22:30:07 Test Item Value Reference Range Interpretation Comments POCT GLU (test code = 5105121804) 115 mg/dL 70-110 H Lab Interpretation (test code = Abnormal 81457-2) [facility] 21:08:31 Test Item Value Reference Range Interpretation Comments PHOSPHORUS (test code = 5899533541) 4.0 mg/dL 2.5-5.0 Lab Interpretation (test code = Normal 63621-1) [facility] 21:08:31 Test Item Value Reference Range Interpretation Comments PHOSPHORUS (test code = 2042758089) 4.0 mg/dL 2.5-5.0 Lab Interpretation (test code = Normal 63057-5) [facility] [id number] 18:41:06 Test Item Value Reference Interpretation Comments Range TROPONIN I (test 0.011 ng/mL See_Comment [Automated code = 0899114090) message] The system which generated this result [...] biotin. Lab Interpretation Normal (test code = 59793-0) [facility] [id number] 18:41:06 Test Item Value Reference Interpretation Comments Range TROPONIN I (test 0.011 ng/mL See_Comment [Automated code = 1827446811) message] The system which generated this result [...] biotin. Lab Interpretation Normal (test code = 76635-9) [facility] [id number] 18:41:06 Test Item Value Reference Interpretation Comments Range TROPONIN I (test 0.011 ng/mL See_Comment [Automated code = 2229811554) message] The system which generated this result [...] biotin. Lab Interpretation Normal (test code = 94079-4) [facility] [id number] 18:38:05 Test Item Value Reference Range Interpretation Comments NT-proBNP (test code 77 pg/mL See_Comment [Autom ated = 6712375734) message] The system which generated this result transmitted reference range : <=125. The reference range was not used to interpret this result as normal/abnormal . POP (test code = POP) Biotin has been reported to cause a negative bias, interpret results relative to patient's use of biotin. Lab Interpretation Normal (test code = 94283-6) [facility] [id number] 18:38:05 Test Item Value Reference Range Interpretation Comments NT-proBNP (test code 77 pg/mL See_Comment [Autom ated = 1836614374) message] The system which generated this result transmitted reference range : <=125. The reference range was not used to interpret this result as normal/abnormal . POP (test code = POP) Biotin has been reported to cause a negative bias, interpret results relative to patient's use of biotin. Lab Interpretation Normal (test code = 23923-8) [facility] [id number] 18:38:05 Test Item Value Reference Range Interpretation Comments NT-proBNP (test code 77 pg/mL See_Comment [Autom ated = 5266676998) message] The system which generated this result transmitted reference range : <=125. The reference range was not used to interpret this result as normal/abnormal . POP (test code = POP) Biotin has been reported to cause a negative bias, interpret results relative to patient's use of biotin. Lab Interpretation Normal (test code = 77399-6) [facility]2021-12-05 18:29:46 Test Item Value Reference Range Interpretation Comments MAGNESIUM (test code = 1993690783) 1.4 mg/dL 1.7-2.4 L Lab Interpretation (test code = Abnormal 11777-0) [facility] Test Item Value Reference Range Interpretation Comments MAGNESIUM (test code = 5015892505) 1.4 mg/dL 1.7-2.4 L Lab Interpretation (test code = Abnormal 83529-2) [facility] MET[facility]OLIC PAN[facility] (83824)2021-03-15 18:29:26 Test Item Value Reference Range Interpretation Comments NA (test code = 134 mmol/L 135-145 L 2115248691) K (test code = 3.1 mmol/L 3.5-5.0 L 9414686308) CL (test code = 94 mmol/L 98-108 L 9304731318) CO2 TOTAL (test code = 29 mmol/L 23-31 6216433354) AGAP (test code = 2-16 1296732165) BUN (test code = 13 mg/dL 7-23 7847105987) GLUCOSE (test code = 126 mg/dL 70-110 H 9065888543) CREATININE (test code = 0.79 mg/dL 0.60-1.25 7056159660) TOTAL BILI (test code = 0.7 mg/dL 0.1-1.4 6672491117) CALCIUM (test code = 9.7 mg/dL 8.6-10.6 2280629896) T PROTEIN (test code = 7.5 g/dL 6.3-8.2 6661375232) ALBUMIN (test code = 4.1 g/dL 3.5-5.0 1421941789) ALK PHOS (test code = 110 U/L 34-122 5298478424) ALTv (test code = 22 U/L 5-50 1742-6) AST(SGOT) (test code = 25 U/L 13-40 6894431604) eGFR (test code = mL/min/1.73m2 8652620922) POP (test code = POP) Association of [...] tests). Lab Interpretation Abnormal (test code = 35988-0) [facility]. METABOLIC PANEL (79849)2021-03-15 18:29:26 Test Item Value Reference Range Interpretation Comments NA (test code = 134 mmol/L 135-145 L 7851107059) K (test code = 3.1 mmol/L 3.5-5.0 L 0903741078) CL (test code = 94 mmol/L 98-108 L 1992558662) CO2 TOTAL (test code = 29 mmol/L 23-31 0774148884) AGAP (test code = 2-16 8795631110) BUN (test code = 13 mg/dL 7-23 7835628053) GLUCOSE (test code = 126 mg/dL 70-110 H 5002278752) CREATININE (test code = 0.79 mg/dL 0.60-1.25 8052455625) TOTAL BILI (test code = 0.7 mg/dL 0.1-1.8 9457429305) CALCIUM (test code = 9.7 mg/dL 8.6-10.6 9171173365) T PROTEIN (test code = 7.5 g/dL 6.3-8.2 5182757118) ALBUMIN (test code = 4.1 g/dL 3.5-5.0 8516471258) ALK PHOS (test code = 110 U/L 34-122 3414245563) ALTv (test code = 22 U/L 5-50 1742-6) AST(SGOT) (test code = 25 U/L 13-40 8500120008) eGFR (test code = mL/min/1.73m2 6162605247) POP (test code = POP) Association of [...] tests). Lab Interpretation Abnormal (test code = 12086-1) [facility]. METABOLIC PANEL (66486)2021-03-15 18:29:26 Test Item Value Reference Range Interpretation Comments NA (test code = 134 mmol/L 135-145 L 3490930611) K (test code = 3.1 mmol/L 3.5-5.0 L 0736045968) CL (test code = 94 mmol/L 98-108 L 7099287512) CO2 TOTAL (test code = 29 mmol/L 23-31 4994783191) AGAP (test code = 2-16 0270072079) BUN (test code = 13 mg/dL 7-23 3830738162) GLUCOSE (test code = 126 mg/dL 70-110 H 6601833048) CREATININE (test code = 0.79 mg/dL 0.60-1.25 2090947649) TOTAL BILI (test code = 0.7 mg/dL 0.1-1.3 2613481181) CALCIUM (test code = 9.7 mg/dL 8.6-10.6 6211563514) T PROTEIN (test code = 7.5 g/dL 6.3-8.2 0212175734) ALBUMIN (test code = 4.1 g/dL 3.5-5.0 1045891840) ALK PHOS (test code = 110 U/L 34-122 5883868763) ALTv (test code = 22 U/L 5-50 1742-6) AST(SGOT) (test code = 25 U/L 13-40 0856417021) eGFR (test code = mL/min/1.73m2 1767493019) POP (test code = POP) Association of [...] tests). Lab Interpretation Abnormal (test code = 07879-3) [facility] WITH [id number] 18:16:23 Test Item Value Reference Range Interpretation Comments WBC (test code = See_Comment H [Automated 7590-2) message] The sy stem which generated this result transmitted reference range : 4.20 - 10.70 10*3/?L. The reference range was not used to interpret this result as normal/abnormal . RBC (test code = See_Comment [Automated 409-8) message] The sy stem which generated this [...] RDW-SD (test code = 44.5 fL 38.5-51.6 89945-2) RDW-CV (test code = 13.2 % 12.1-15.4 788-0) PLT (test code = See_Comment H [Automated 777-3) message] The sy stem which generated this result transmitted reference range : 150 - 328 10*3/ ?L. The reference r jalen was not used to interpret this result as normal/abnormal . MPV (test code = 9.0 fL 9.8-13.0 L 45697-1) NRBC/100 WBC (test See_Comment [Automat ed code = 1988005065) message] The system which generated this result transmitted reference range : 0.0 - 10.0 /100 WBCs. The refer ence range was not u sed to interpret th is result as normal/abnormal . NRBC x10^3 (test code <0.01 See_Comment [Auto mated = 1756929643) message] The s ystem which generated this result transmitted reference range : 10*3/?L. The reference range was not used to interpret this result as normal/abnormal . GRAN MAT (NEUT) % 72.0 % (test code = 770-8) IMM GRAN % (test code 0.60 % = 5963965661) LYMPH % (test code = 19.3 % 736-9) MONO % (test code = 4.8 % 5905-5) EOS % (test code = 2.5 % 713-8) BASO % (test code = 0.8 % 706-2) GRAN MAT x10^3(ANC) 7.83 10*3/uL 1.99-6.95 H (test code = 3889309331) IMM GRAN x10^3 (test 0.07 10*3/uL 0.00-0.06 H code = 1054765283) LYMPH x10^3 (test code 2.10 10*3/uL 1.09-3.23 = 731-0) MONO x10^3 (test code 0.52 10*3/uL 0.36-1.02 = 742-7) EOS x10^3 (test code = 0.27 10*3/uL 0.06-0.53 711-2) BASO x10^3 (test code 0.09 10*3/uL 0.01-0.09 = 704-7) Lab Interpretation Abnormal (test code = 06550-2) [facility] WITH [id number] 18:16:23 Test Item Value Reference Range Interpretation [...] RDW-SD (test code = 44.5 fL 38.5-51.6 51208-7) RDW-CV (test code = 13.2 % 12.1-15.4 788-0) PLT (test code = See_Comment H [Automated 777-3) message] The sy stem which generated this result transmitted reference range : 150 - 328 10*3/ ?L. The reference r jalen was not used to interpret this result as normal/abnormal . MPV (test code = 9.0 fL 9.8-13.0 L 60779-6) NRBC/100 WBC (test See_Comment [Automat ed code = [id number]) message] The system which generated this result transmitted reference range : 0.0 - 10.0 /100 WBCs. The refer ence range was not u sed to interpret th is result as normal/abnormal . NRBC x10^3 (test code <0.01 See_Comment [Auto mated = [id number]) message] The s ystem which generated this result transmitted reference range : 10*3/?L. The reference range was not used to interpret this result as normal/abnormal . GRAN MAT (NEUT) % 72.0 % (test code = 770-8) IMM GRAN % (test code 0.60 % = 3399526854) LYMPH % (test code = 19.3 % 736-9) MONO % (test code = 4.8 % 5905-5) EOS % (test code = 2.5 % 713-8) BASO % (test code = 0.8 % 706-2) GRAN MAT x10^3(ANC) 7.83 10*3/uL 1.99-6.95 H (test code = 4869268253) IMM GRAN x10^3 (test 0.07 10*3/uL 0.00-0.06 H code = 7438909066) LYMPH x10^3 (test code 2.10 10*3/uL 1.09-3.23 = 731-0) MONO x10^3 (test code 0.52 10*3/uL 0.36-1.02 = 742-7) EOS x10^3 (test code = 0.27 10*3/uL 0.06-0.53 711-2) BASO x10^3 (test code 0.09 10*3/uL 0.01-0.09 = 704-7) Lab Interpretation Abnormal (test code = 44671-9) [facility] HospitalDIAGNOSTIC MANAGEMENT TEAM; SPECIAL COAGULATION [id number] 02:27:27Related Clinical HistoryChesOrtiz is 65YO male with type 2 diabetes, hypertension, and hyperlipidemia presenting for follow-up after stroke on 02/03. Approximately one month prior to stroke, patient went to ER for left sided numbness and plavix 75mg was added to patient's antiplatelet therapy of aspirin 81mg, after which patient left AMA before stroke work-up. 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 ? BMI: 25.31 Medications: Clopidogrel 75mg, aspirin dipyridamole 25-200mg Family History: No known family history of coagulation disorder [facility] LABORATORY SERVICESPertinent Lab Results ? Ref. Range [...] 384 ? VerifyNow P2Y12 ?<194 ? 171 [facility] LABORATORY SERVICESCoag DMT interpretation1) There is no [...] study. Diabetol Metab Syndr 7, 8 (2015). [email or web address]://doi.org/10.1186/[email or web address]-e ? Juan R Case, Kasey A, Juan R P, Janak C, Juan R S, Pepe M, Daniel K, Annabella Y, Russell Morrell. Aspirin for primary prevention of cardiovascular events in patients with diabetes: A meta-analysis. Diabetes Res Clin Pract. 2010 May;87(2):211-8. doi: 10.1016/j.diabres.2009.09.029. Epub 2008Jan 31. PMID: 20068229. ? Meseret Hall., Frank, A.A., Danielle, W.A. et al. Aspirin effect on the incidence of major adverse cardiovascular events in patients with diabetes mellitus: a systematic review and meta-analysis. Cardiovasc Diabetol 10, 25 (20 11). https://doi.org/10.1186/[email or web address] ? Samy SH, Kimberly BRADLEY. Coagulation and fibrinolysis in diabetes. Diab Vasc Dis Res. 2010 Jan;7(4):260- 73. doi: 10.1177/8070966691728086. Epub 2009Dec 25. PMID: 26633297.[facility] LABORATORY SERVICESRecommendations1) No further coagulation testing is recommend ed at this time. ? 2) Independent of the normal test results this patient has an extremely positive history of thrombosis. Therefore, life-long anticoagulant therapy is consistent with guidelines. ?[facility] LABORATORY SERVICESUnCHI St[facility] HospitalMisc. Sendout- LUPUS ANTICOAGULANT REFLEXIVE PANEL [facility] [id number] 17:38:08 Test Item Value Reference Range Interpretation Comments Miscellaneous Test (test See scanned report code = 3157511265) Performing Lab (test code [facility] = 8632780335) [facility] HospitalWB [id number] 21:10:01FOLATE RBCComment: Unable to calculate RBC-Folate due to high Folate concentration.[facility] LABORATORY SERVICESUnCHI St[facility] Health – Lakeside HospitalVITAMIN B1 (THIAMINE), WHOLE BLOOD 2021-03-07 15:44:45 Test Item Value Reference Range Interpretation Comments Vitamin B1, Whole 147 nmol/L 70-180 INTERPRETI VE INFORMATION: Blood (test code = Vitamin B 1, Whole Blood 56700-0) This assay zara ures the concentration o f thiamine diphosphate (TD P), the primary active form of vitamin B1. Dontrell roximately 90 percent of v itamin B1 present in whol e blood is TDP. Thiamine a nd thiamine monoph osphate, which comprise the remaining 10 pe rcent, are not measured. T his test was developed a nd its performance characteristics determined by [facility]. I t has not been cleared or approved by the [place] Food and Drug Administration. This test was performed i n a CLIA certified labor atory and is intended for clinical purposes.Perfor med By: [facility] es[address] [place] [address] [id number] aboratory Director: Elena Mansfield MD [facility] HospitalANTICARDIOLIPIN [id number] 17:52:49 Test Item Value Reference Interpretation Comments Range Anticardiolipin See_Comment [Automated Antibody IgG (test message] The code = 4944420210) system [facility] generated this result transmitted reference range: 0.0 - 10.0 GPL. The reference range was not used to interpret this result as normal/abnormal . Anticardiolipin See_Comment [Automated Antibody IgM (test message] The code = 9614355462) system [facility] generated this result transmitted reference range: 0.0 - 10.0 MPL. The reference range was not used to interpret this result as normal/abnormal . Anticardiolipin See_Comment [Automated Antibody IgA (test message] The code = 6080567409) system [facility] generated this result transmitted reference range: 0.0 [...] 2210-4 Lab Interpretation Normal (test code = 26387-7) [facility] HospitalANTI-B2 GLYCOPROTEIN I [id number] 17:52:49 Test Item Value Reference Interpretation Comments Range Anti-B2 See_Comment [Automated Glycoprotein 1 IgG message] The (test code = system which 9830760762) generated this result transmitted reference range : 0.0 - 20.0 SGU. The reference range was not used to interpret this result as normal/abnormal . Anti-B2 See_Comment [Automated Glycoprotein 1 IgM message] The (test code = system which 4442560334) generated this result transmitted reference range : 0.0 - 20.0 SMU. The reference range was not used to interpret this result as normal/abnormal . Anti-B2 See_Comment [Automated Glycoprotein 1 IgA message] The (test code = system which 8585882806) generated this result transmitted reference range : [...] losses and/or thrombocytopenia. TEST PERFORMED AT:[facility] [id number] [facility], [address] [facility] [place] [address] Lab Interpretation Normal (test code = 47629-3) [facility] HospitalRPR (QUANTITATIVE)2021-03-04 23:01:53 Test Item Value Reference Range Interpretation Comments RPR (Quantitative) (test code = Nonreactive Nonreactive 55681-2) Lab Interpretation (test code = Normal 22988-5) [facility] HospitalANTITHROMBIN [id number] 17:54:51 Test Item Value Reference Range Interpretation Comments ANTITHROMBIN ACTIVITY (test code = 117 % 83-128 8551308720) Lab Interpretation (test code = Normal 07257-8) [facility] HospitalFREE PROTEIN [id number] 17:54:46 Test Item Value Reference Range Interpretation Comments FREE PROTEIN S (test code 90 % 55-146 = 6801312343) POP (test code = POP) Age and hormonal status may affect the normal range for females (particularly during ). Lab Interpretation (test Normal code = 83156-7) [facility] HospitalPROTEIN C [id number] 17:54:36 Test Item Value Reference Range Interpretation Comments PROTEIN C ACTIVITY (test 133 % 70-140 code = 0444654831) POP (test code = POP) Test should not be ordered in patients on Coumadin as it can decrease Protein C and S levels. Protein C activity is low in neonates and infants and increases to adult levels during adolescence. Additional studies should be conducted to determine the source of unexpected abnormal results. Lab Interpretation (test Normal code = 35206-6) [facility] HospitalFIBRINOGEN2021-11-24 17:51:45 Test Item Value Reference Range Interpretation Comments Fibrinogen (test code = 3196978837) 504 mg/dL 167-453 H Lab Interpretation (test code = Abnormal 31083-8) [facility] HospitalFACTOR 5 [id number] 15:51:49 Test Item Value Reference Range Interpretation Comments FACTOR 5 LEIDEN Normal Normal (test code = 3958523242) POP (test code = Phenotype Characteristics: POP) [...] the Factor 5 Leiden mutation is c.1601G>A (p.Njq131Zbe). Methodology: Polymerase chain reaction and fluorescence monitoring. Limitations: Rare Factor V mutations (N5616Z, Q0532O, and Y6382P) and any additional SNPs in the probe binding region may interfere with the target detection and yield an INVALID result. The performance of this assay has not been evaluated with samples from pediatric patients. Counseling and informed consent are recommended for genetic testing. 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 Clinical Sensitivity for Venous Thrombosis: Approximately 10%. Methodology: Polymerase chain reaction and fluorescence monitoring Limitations: The performance of this assay has not been evaluated with samples from pediatric patients. Counseling and informed consent are recommended for genetic testing. References: OMIM: 338905 https://ghr.nlm.nih.gov/c ondition/prothrombin-thro mbophilia [facility] HospitalVITAMIN B12, [id number] 21:15:03 Test Item Value Reference Range Interpretation Comments VIT B12 (test code = >1000 240-930 H 1609147159) POP (test code = POP) Biotin has been reported to cause a positive bias, interpret results relative to patient's use of biotin. Lab Interpretation (test Abnormal code = 87294-6) [facility] HospitalFOLATE2021-11-23 19:23:39 Test Item Value Reference Range Interpretation Comments FOLATE SER (test code = 4041587179) >20.0 3.0-20.0 H Lab Interpretation (test code = Abnormal 18786-6) [facility] HospitalHEMATOCRIT2021-11-23 17:33:40 Test Item Value Reference Range Interpretation Comments HCT (test code = 4544-3) 40.1 % 38.4-49.3 Lab Interpretation (test code = Normal 46461-4) [facility] HospitalURIC [id number] 14:46:27 Test Item Value Reference Range Interpretation Comments URIC ACID (test code = 5422721531) 5.0 mg/dL 3.6-8.0 Lab Interpretation (test code = Normal 46624-4) [facility] HospitalOSMOLALITY, SERUM OR [id number] 01:04:26 Test Item Value Reference Range Interpretation Comments OSMOLALITY (test code = See_Comment L [Au tomated message] 0545225178) The system [employer] generated this result transmitted ref erence range: 278 - 30 5 mOsm/kg. The reference range was not used to int erpret this result as normal/abnormal . Lab Interpretation (test Abnormal code = 40471-7) [facility] HospitalBMP2021-09-29 13:37:00 Test Item Value Reference Range Interpretation [...] mg/dl 8.4-10.2 = CALC) EGFR if >60 Salvadorean (test code mL/min/1.73m\\ = EGFRAA) S\\2 EGFR if Non- 59 Estimate d Glomerular Salvadorean (test code mL/min/1.73m\\ Filtrat ion Rate (eGFR) [...] c hronic kidney failure. CBC WITH AUTO [id number] 13:36:00 Test Item Value Reference Range Interpretation [...] 0.4 % 0.0-0.4 IG%) MRI BRAIN W/O [id number] 12:07:29 [facility])Name: JOE DURAN : 1955 Sex: [...] 112:02 PMDictated By: SYLVESTER LIMDate: 01/07/2021 12:02CORONARY [id number] 12:53:00 Test Item Value Reference Range Interpretation [...] code = 28 mg/dl 20-50 VLDL) GLYCOSALATED [id number] 12:52:00 Test Item Value Reference Range Interpretation [...] THE MEAN GLUCOS E IS NOT RELIABLE. [id number] 12:43:00 Test Item Value Reference Range Interpretation [...] 4 - SerumAlbu min)] EGFR if >60 Salvadorean (test code mL/min/1.73m\\ = EGFRAA) S\\2 EGFR if Non- 55 Estimate d Glomerular Salvadorean (test code mL/min/1.73m\\ Filtrat ion Rate (eGFR) [...] management of c hronic kidney failure. URIC [id number] 12:40:00 Test Item Value Reference Range Interpretation Comments Uric Acid (test code = URICA) 5.0 mg/dl 2.4-7.2 CORONARY [id number] 13:13:00 Test Item Value Reference Range Interpretation [...] (test code = 21 mg/dl 20-50 VLDL) [id number] 12:02:00 Test Item Value Reference Range Interpretation [...] 4 - SerumAlbu min)] EGFR if >60 Salvadorean (test code mL/min/1.73m\\ = EGFRAA) S\\2 EGFR if Non- 59 Estimate d Glomerular Salvadorean (test code mL/min/1.73m\\ Filtrat ion Rate (eGFR) [...] c hronic kidney failure. CBC WITH AUTO [id number] 11:22:00 Test Item Value Reference Range Interpretation [...]
[2021-05-22] MEDS ORDERED: NA CHLORIDE 0.9% 1,000 ML ONE ×3 (13:52→21:19)
[2021-05-22 14:00] LABS: Hematocrit 32.2 % (39.6-49.0); Lymphocytes % 7.9 % (15.3-44.8); RBC Red Blood Cell Count 3.56 M/uL (4.33-5.43)
--- NOTE | 2021-05-22 14:01 | RAD REPORT ---
EXAM DESCRIPTION: RAD - Chest Single View - 05/22/2021 1:51 pm CLINICAL HISTORY: COUGH COMPARISON: May 20 TECHNIQUE: AP portable chest image was obtained 05/22/2021 1:51 pm . FINDINGS: No acute lung parenchymal process seen. Interstitial pattern is stable. Loop recorder over lies the lower left chest. Cardiac leads are in place. Heart and vasculature are normal. No measurabl e pleural effusion and no pneumothorax. No acute bony abnormality seen. No acute aortic findings susp ected. IMPRESSION: No acute cardiopulmonary process. No significant change from comparison study.
[2021-05-22 14:05] LABS: Protime INR 1.21
[2021-05-22 14:34] LABS: ALT/SGPT 57 U/L (12-78); AST/SGOT 31 U/L (15-37); Alkaline Phosphatase 157 U/L (45-117); BUN Blood Urea Nitrogen 18 mg/dL (7-18); Bicarbonate 24 mmol/L (21-32); Bilirubin Direct 0.2 mg/dL (0-0.2); Bilirubin Total 0.5 mg/dL (0.2-1.0); Glucose Level 127 mg/dL (74-106); Lipase 126 U/L (73-393); Magnesium 2.2 mg/dL (1.8-2.4); NT PRO-BNP 112 pg/mL (<125); Potassium 4.3 mmol/L (3.5-5.1); Protein, Total 7.6 g/dL (6.4-8.2); Sodium Level 128 mmol/L (136-145)
--- NOTE | 2021-05-22 16:01 | ER ---
Nurse's Notes [facility] Name: Harsh Dalton Age: 65 yrs Sex: Male : 1955 Arrival Date: 05/22/2021 Time: 11:55 Bed 6 Private MD: Diagnosis: Pressure ulcer of buttock-Sacral Stage 2;Pressure ulcer of left heel, unspecified stage;Pressure ulcer of right heel, stage 2;Tachycardia, unspecified;Elevated white blood cell count Presentation: 05/22 12:15 Chief complaint: EMS states: ems brought pt to hospital due to elevated hr. ems states [facility] that they were called to transfer pt to another [place] for [place] new admit and noted that he had an elevated hr. pt has hx of stroke and was recently treated for decubitus ulcer. 12:15 Coronavirus screen: Client denies travel out of the [place] in the last 14 days. Ebola [facility] Screen: Patient denies travel to an Ebola-affected area in the 21 days before illness onset. Initial Sepsis Screen: Does the patient meet any 2 criteria? RR > 20 per min. Initial Sepsis Screen: Does the patient meet any 2 criteria? HR > 90 bpm. Does the patient have a suspected source of infection? Yes: Skin breakdown/wound. Risk Assessment: Do you want to hurt yourself or someone else? Patient reports no desire to harm self or others. 12:15 Method Of Arrival: EMS: [facility] 12:15 Acuity: ROHITH 3 [facility] 12:50 Onset of symptoms was May 22, 2021. [facility] Triage Assessment: 12:46 General: Appears in no apparent distress. slender, Behavior is drowsy, pt responds to [facility] tactile stimuli. skin w/d. Pain: Denies pain. Historical: - Allergies: 23:41 No Known Allergies; st1 - PMHx: 23:39 Cerebrovascular accident; st1 - Immunization history:: Adult Immunizations up to date, Client reports receiving the 2nd dose of the Covid vaccine. - Social history:: Smoking status: Patient denies any tobacco usage or history of. - Family history:: not pertinent. Screenin:50 Abuse screen: Denies threats or abuse. Nutritional screening: No deficits noted. [facility] Tuberculosis screening: No symptoms or risk factors identified. Fall Risk Secondary diagnosis (15 points) CVA, IV access (20 points). Assessment: 12:47 General: Appears in no apparent distress. Behavior is calm, sleeping but arouses with jh6 tactile stemuli. Neuro: Level of Consciousness is confused. Cardiovascular: No deficits noted. Rhythm is sinus tachycardia. 14:00 Reassessment: No changes from previously documented assessment. Patient and/or family jh6 updated on plan of care and expected duration. Pain level reassessed. Patient is alert, oriented x 3, equal unlabored respirations, skin warm/dry/pink. Patient denies pain at this time. 16:00 Reassessment: No changes from previously documented assessment. Patient denies pain at jh6 this time. 17:00 Reassessment: Patient and/or family updated on plan of care and expected duration. Pain jh6 level reassessed. pts position being changed from side to side q2hrs. 19:15 Reassessment: The patient presents with a stage 3 sacral ulcer, amato catheter and PICC st1 line left arm from the halfway. Vital Signs: 12:15 BP 130 / 88; Pulse 118; Resp 20; Temp 97.6(A); Pulse Ox 97% on R/A; Weight 92.99 kg; jh6 Height 5 ft. 11 in. (180.34 cm); Pain 0/10; 12:49 BP 122 / 90; Pulse 120; Resp 20; Pulse Ox 97% ; jh6 12:15 Body Mass Index 28.59 (92.99 kg, 180.34 cm) jh6 ED Course: 11:55 Patient arrived in ED. eb 12:12 Smiley Lara, RN is Primary Nurse. jh6 12:46 Triage completed. jh6 12:47 Arm band placed on right wrist. Patient placed in an exam room, on a stretcher, on jh6 hall monitor, on pulse oximetry. 12:49 Placed in gown. Bed in low position. Call light in reach. Side rails up X2. jh6 12:50 Maintain EMS IV. Dressing intact. Good blood return noted. Site clean \\T\\ dry. 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 no redness or swelling noted. . 12:51 Edwardo Haines MD is Attending Physician. [facility] 13:51 XRAY Chest (1 view) In Process Unspecified. EDMS 15:53 Basic Metabolic Panel Sent. [facility] 15:54 Nasim De Los Santos MD is Hospitalizing Provider. [facility] 19:08 Primary Nurse role handed off by Smiley Lara, GILMER cs9 21:28 COVID-19/FLU A+B/RSV (Document "Date of Onset" if Symptomatic) Sent. alize 22:40 Olinda Carlisle, RN is Primary Nurse. st1 23:08 No provider procedures requiring assistance completed. st1 23:09 Patient admitted, IV remains in place. st1 Administered Medications: 14:00 Drug: NS 0.9% 1000 ml Route: IV; Rate: 1 bolus; Site: left upper arm; [facility] 16:11 Drug: Zosyn (piperacillin-tazobactam) 3.375 grams Route: IVPB; Infused Over: 60 mins; [facility] Site: left upper arm; Outcome: 16:01 Decision to Hospitalize by Provider. [facility] 23:08 Admitted to Med/surg accompanied by tech, via stretcher, room 431. st1 23:08 Condition: stable 23:53 Patient left the ED. st1 Signatures: Dispatcher [employer] EDMS Edwardo Haines MD MD cha Ballard, Brenda, RN RN Debbi Ladd Christine cs9 Smiley Lara, RN RN [facility] Olinad Carlisle, GILMER RN st1
--- NOTE | 2021-05-22 16:01 | EDPHYS ---
Physician Documentation [facility] Name: Harsh Dalton Age: 65 yrs Sex: Male : 1955 Arrival Date: 05/22/2021 Time: 11:55 Bed 6 Private MD: ED Physician Edwardo Haines HPI: 05/22 13:08 This 65 yrs old Male presents to ER via EMS with complaints of heel, sacrum bryan wound and tachycardia. 13:08 Patient presents to ED for recheck of: heel left greater than right and stage 2 decub bryan on sacrum. The affected area is on the buttocks, right foot and left foot. Progress: The patient reports decreased pain, redness, swelling. aphasic, weak , peg and amato. The patient presents with pain, that is acute. The complaints affect the right foot and left foot. Context: The problem was sustained at home. Historical: - Allergies: 23:41 No Known Allergies; st1 - PMHx: 23:39 Cerebrovascular accident; st1 - Immunization history:: Adult Immunizations up to date, Client reports receiving the 2nd dose of the Covid vaccine. - Social history:: Smoking status: Patient denies any tobacco usage or history of. - Family history:: not pertinent. ROS: 13:08 MS/extremity: Positive for decreased range of motion, ecchymosis, erythema, pain, of bryan the right foot and left foot. 13:08 ENT: Negative for injury, pain, and discharge, Neck: Negative for injury, pain, and swelling, Respiratory: Negative for shortness of breath, cough, wheezing, and pleuritic chest pain, Abdomen/GI: Negative for abdominal pain, nausea, vomiting, diarrhea, and constipation, Back: Negative for injury and pain, : Negative for injury, bleeding, discharge, and swelling, MS/Extremity: Negative for injury and deformity, Skin: Negative for injury, rash, and discoloration, Neuro: Negative for headache, weakness, numbness, tingling, and seizure. 13:08 Cardiovascular: Positive for palpitations. 13:08 MS/extremity: Positive for ecchymosis, erythema, pain, of the right foot and left foot. 13:08 Skin: Positive for erythema, swelling, ulceration, of the coccyx. Exam: 13:08 Constitutional: This is a well developed, well nourished patient who is awake, alert, bryan and in no acute distress. Head/Face: Normocephalic, atraumatic. Eyes: Pupils equal round and reactive to light, extra-ocular motions intact. Lids and lashes normal. Conjunctiva and sclera are non-icteric and not injected. Cornea within normal limits. Periorbital areas with no swelling, redness, or edema. ENT: Nares patent. No nasal discharge, no septal abnormalities noted. Tympanic membranes are normal and external auditory canals are clear. Oropharynx with no redness, swelling, or masses, exudates, or evidence of obstruction, uvula midline. Mucous membranes moist. Neck: Trachea midline, no thyromegaly or masses palpated, and no cervical lymphadenopathy. Supple, full range of motion without nuchal rigidity, or vertebral point tenderness. No Meningismus. Chest/axilla: Normal chest wall appearance and motion. Nontender with no deformity. No lesions are appreciated. Respiratory: Lungs have equal breath sounds bilaterally, clear to auscultation and percussion. No rales, rhonchi or wheezes noted. No increased work of breathing, no retractions or nasal flaring. Abdomen/GI: Soft, non-tender, with normal bowel sounds. No distension or tympany. No guarding or rebound. No evidence of tenderness throughout. Back: No spinal tenderness. No costovertebral tenderness. Full range of motion. Male : Normal genitalia with no discharge or lesions. Neuro: Awake and alert, GCS 15, oriented to person, place, time, and situation. Cranial nerves II-XII grossly intact. Motor strength 5/5 in all extremities. Sensory grossly intact. Cerebellar exam normal. Normal gait. Psych: Awake, alert, with orientation to person, place and time. Behavior, mood, and affect are within normal limits. 13:08 Cardiovascular: Rate: tachycardic, Rhythm: regular, Pulses: Pulses are 4+ in bilateral radial, brachial, femoral, popliteal, posterior tibial and and dorsalis pedis arteries.. Edema: is not appreciated, JVD: is not appreciated. 16:04 ECG was reviewed by the Attending Physician. [facility] Vital Signs: 12:15 BP 130 / 88; Pulse 118; Resp 20; Temp 97.6(A); Pulse Ox 97% on R/A; Weight 92.99 kg; jh6 Height 5 ft. 11 in. (180.34 cm); Pain 0/10; 12:49 BP 122 / 90; Pulse 120; Resp 20; Pulse Ox 97% ; [facility] 12:15 Body Mass Index 28.59 (92.99 kg, 180.34 cm) [facility] MDM: 12:51 Patient medically screened. [facility] 13:14 Differential diagnosis: cellulitis, cellulitis. Differential Diagnosis altered mental bryan status, sepsis. Data reviewed: vital signs, nurses notes, EMS record, lab test result(s), EKG, radiologic studies, plain films. Data interpreted: stock puller: rate is 120 beats/min, rhythm is regular, Pulse oximetry: on room air is 97 %. Test interpretation: by ED physician or midlevel provider: ECG, plain radiologic studies. Counseling: I had a detailed discussion with the patient and/or guardian regarding: the historical points, exam findings, and any diagnostic results supporting the discharge/admit diagnosis, lab results, radiology results. 05/22 13:07 Order name: Basic Metabolic Panel [facility] 05/22 13:07 Order name: CBC with Diff; Complete Time: 15:50 [facility] 05/22 13:07 Order name: LFT's; Complete Time: 15:50 [facility] 05/22 13:07 Order name: Magnesium; Complete Time: 15:50 [facility] 05/22 13:07 Order name: NT PRO-BNP; Complete Time: 15:50 [facility] 05/22 13:07 Order name: PT-INR; Complete Time: 15:50 [facility] 05/22 13:07 Order name: Troponin HS; Complete Time: 15:50 [facility] 05/22 13:07 Order name: Lipase; Complete Time: 15:50 [facility] 05/22 13:08 Order name: Basic Metabolic Panel; Complete Time: 15:50 [facility] 05/22 15:51 Order name: Lactate [facility] 05/22 15:51 Order name: Procalcitonin [facility] 05/22 19:50 Order name: Basic Metabolic Panel [facility] 05/22 19:50 Order name: Basic Metabolic Panel [facility] 05/22 19:50 Order name: CBC with Automated Diff [facility] 05/22 13:07 Order name: XRAY Chest (1 view); Complete Time: 15:50 [facility] 05/22 13:07 Order name: EKG; Complete Time: 13:08 [facility] 05/22 13:07 Order name: Cardiac monitoring; Complete Time: 15:53 [facility] 05/22 19:50 Order name: 60g Consistent Carbohydrate (ADA 1800/2000) ED[facility] 05/22 19:50 Order name: CBC with Automated Diff [facility] 05/22 19:55 Order name: Comprehensive Metabolic Panel [facility] 05/22 19:55 Order name: Magnesium [facility] 05/22 19:55 Order name: CBC with Automated Diff [facility] 05/22 19:55 Order name: NT PRO-BNP [facility] 05/22 19:55 Order name: Procalcitonin [facility] 05/22 19:55 Order name: T4 Free [facility] 05/22 19:55 Order name: Thyroid Stimulating Hormone [facility] 05/22 20:29 Order name: COVID-19/FLU A+B/RSV (Document "Date of Onset" if Symptomatic) cs9 05/22 22:33 Order name: COVID-19/FLU A+B/RSV [facility] 05/22 13:07 Order name: EKG - Nurse/Tech [facility] 05/22 13:07 Order name: IV Saline Lock; Complete Time: 15:53 [facility] 05/22 13:07 Order name: Labs collected and sent; Complete Time: 15:53 [facility] 05/22 13:07 Order name: O2 Per Protocol; Complete Time: 15:53 [facility] 05/22 13:07 Order name: O2 Sat Monitoring; Complete Time: 15:53 [facility] 05/22 13:07 Order name: Wound Care; Complete Time: 18:46 [facility] 05/22 13:07 Order name: Urine Dipstick-Ancillary (obtain specimen); Complete Time: 18:46 [facility] EC:04 Rate is 108 beats/min. Rhythm is regular. QRS [place] is Normal. GA interval is normal. [facility] QRS interval is normal. QT interval is normal. T waves are Normal. No ST changes noted. Clinical impression: Sinus tachycardia. Interpreted by me. Reviewed by me. Administered Medications: 14:00 Drug: NS 0.9% 1000 ml Route: IV; Rate: 1 bolus; Site: left upper arm; [facility] 16:11 Drug: Zosyn (piperacillin-tazobactam) 3.375 grams Route: IVPB; Infused Over: 60 mins; [facility] Site: left upper arm; Disposition Summary: 05/22/21 16:01 Hospitalization Ordered Hospitalization Status: Inpatient Admission [facility] Provider: Nasim De Los Santos cha Location: Telemetry/MedSurg (Inpatient) bryan Condition: Fair bryan Problem: new bryan Symptoms: have improved bryan Bed/Room Type: Standard [facility] Room Assignment: 431(05/22/21 22:45) mw Diagnosis - Pressure ulcer of buttock - Sacral Stage 2 bryan - Pressure ulcer of left heel, unspecified stage bryan - Pressure ulcer of right heel, stage 2 bryan - Tachycardia, unspecified bryan - Elevated white blood cell count bryan Forms: - Medication Reconciliation Form bryan - SBAR form bryan Signatures: Dispatcher [employer] EDPippa Flores RN RN Edwardo Dickson MD MD cha Hastedt, Jennifer, RN RN jh6 Olinda Carlisle RN RN st1 Corrections: (The following items were deleted from the chart) 22:45 16:01 bryan pal
[2021-05-22] MEDS ORDERED: PIPERACIL/TAZO 3.375 GM VIAL IV ONE (16:12)
[2021-05-22] MEDS ORDERED: NA CHLORIDE 0.9% 100 ML IV ONE (16:12)
[2021-05-22] MEDS ORDERED: ACETAMINOPHEN 500 MG TAB PO PRN (19:47)
[2021-05-22] MEDS ORDERED: MORPHINE 4 MG/ML SYR IV PRN (19:47)
[2021-05-22] MEDS: NA CHLORIDE 0.9% 1,000 ML IV SCH (20:00)
[2021-05-22] MEDS ORDERED: VANCOMYCIN 1 GM in NA CHLORIDE 0.9% 250 ML IVPB SCH (20:00)
[2021-05-22] MEDS ORDERED: Levofloxacin 750mg IV 750 MG/150 ML BAG IV SCH (20:00)
[2021-05-22] MEDS ORDERED: NA CHLORIDE 0.9% 500 ML IV ONE (22:00)
[2021-05-22 22:32] LABS: SARS-COV-2 RT PCR POSITIVE (NEGATIVE)
[2021-05-22 22:48] VITALS: BMI 28.5
[2021-05-23] MEDS: PROPRANOLOL HCL 10 MG TAB PO SCH ×3 (00:23→21:14)
[2021-05-23] MEDS: Meropenem 1,000 MG in NA CHLORIDE 0.9% 100 ML IV SCH ×3 (00:28→17:21)
[2021-05-23] MEDS: HYDROCORTISONE SUC 100 MG INJ IV SCH ×3 (01:00→17:21)
[2021-05-23] MEDS ORDERED: CEFAZOLIN 2 GM in NA CHLORIDE 0.9% 100 ML IVPB SCH (01:00)
[2021-05-23 06:42] LABS: Absolute Lymphocytes (CBC) 0.6 K/uL (0.7-4.9); Hematocrit 30.2 % (39.6-49.0); Lymphocytes % 4.5 % (15.3-44.8); MPV 6.6 fL (7.6-11.3); RBC Red Blood Cell Count 3.34 M/uL (4.33-5.43)
[2021-05-23 07:16] LABS: ALT/SGPT 43 U/L (12-78); AST/SGOT 22 U/L (15-37); Albumin 1.9 g/dL (3.4-5.0); Alkaline Phosphatase 137 U/L (45-117); BUN Blood Urea Nitrogen 17 mg/dL (7-18); Bicarbonate 22 mmol/L (21-32); Bilirubin Total 0.3 mg/dL (0.2-1.0); Glucose Level 104 mg/dL (74-106); Magnesium 2.1 mg/dL (1.8-2.4); NT PRO-BNP 147 pg/mL (<125); Potassium 3.5 mmol/L (3.5-5.1); Protein, Total 7.2 g/dL (6.4-8.2); Sodium Level 134 mmol/L (136-145)
[2021-05-23 08:33] LABS: Blood Morphology Comment NOT SEEN (NOT SEEN); Platelet Estimate ADEQ
[2021-05-23] MEDS: CEFAZOLIN/SWI 2gm 2 GM/20 ML SYR IVP SCH ×2 (09:02→17:21)
[2021-05-23] MEDS: NA CHLORIDE 0.9% 1,000 ML IV SCH ×2 (09:02→23:40)
--- NOTE | 2021-05-23 12:55 | P.HP ---
Certification for Inpatient Patient admitted to: Inpatient With expected LOS: >2 Midnights Patient will require the following post-hospital care: None Practitioner: I am a practitioner with admitting privileges, knowledge of patient current condition, hospital course, and medical plan of care. Services: Services provided to patient in accordance with Admission requirements found in Title 42 Section 412.3 of the Code of Federal Regulations Patient History Date of Service: 05/23/21 Reason for admission: Tachyarrhythmia History of Present Illness: 65-year-old gentleman came to the hospital after having a stroke from the [facility]. Patient had multiple unstageable decubitus pressure ulcers on the buttocks and the heels. Patient also had urinary tract infection that grew out MSSA and Pseudomonas. Blood culture were positive for staph aureus. Patient was discharged on meropenem and cefazolin along with wound care to the sacrum and heels. Patient was to continue the antibiotics for bacteremia and wounds. Patient also had PEG tube placed and tube feedings were started. Patient was discharged. Patient was sent to [facility]. The family switched him over to a different facility. When he got there his heart rate was elevated and the family wanted him brought in. The family was upset that the wounds were not healed completely. They are also upset that patient is in the Covid unit. Patient tested positive. Per our policy that is what we need to keep in. At this time, patient will be admitted for further evaluation. Allergies No Known Allergies Allergy (Unverified 05/11/21 09:07) Home Medications: Amlodipine [Norvasc*] 1 tab FT DAILY 05/17/21 Ascorbate Calcium [Vitamin C] 1 tab FT DAILY 05/17/21 Atorvastatin Calcium [Lipitor] 1 tab FT BEDTIME 05/17/21 Carvedilol [Coreg] 1 tab FT BID 05/17/21 Cholecalciferol (Vitamin D3) [Vitamin D3] 1 cap FT DAILY 05/17/21 Docusate Sodium [Colace] 10 ml FT DAILY 05/17/21 Doxazosin Mesylate [Cardura] 1 tab FT DAILY 05/17/21 Famotidine [Pepcid] 1 tab FT DAILY 05/17/21 Fluoxetine HCl 1 tab FT DAILY 05/17/21 Pantoprazole Granules [Protonix Granules*] 1 packet FT BID 05/17/21 Polyethylene Glycol 3350 [Miralax] 1 packet FT DAILY PRN 05/17/21 Potassium Chloride 15 ml FT BID 05/17/21 Tamsulosin HCl [Flomax] 1 cap FT BID 05/17/21 Zinc 1 tab FT DAILY 05/17/21 modafiniL [Provigil*] 1 tab FT DAILY 05/17/21 Cefazolin Sodium in 0.9 % NaCl [Cefazolin 2 G/100 ml-0.9% NaCl] 2 gm IV Q8H #21 plast..bag 05/21/21 Glucerna 1.2 Mendel 1 bot RTH CONT #30 bot 05/21/21 Medihoney [Medihoney Woundcare Gel*] 1 appl TOP DAILY #1 tube 05/21/21 Meropenem [Merrem 1 GM/100 ML NS IVPB] 1 gm IV Q8H #21 bag 05/21/21 Sodium Chloride Tab [Sodium Chloride*] 2 gm FT BIDWM #60 tab 05/21/21 - Past Medical/Surgical History Diabetic: Yes -: CVA -: HTN -: T2DM -: HLD -: FTT -: GERD -: BPH -: hemiplegia, dysphagia, weakness, aphasia -: Gastrostomy tube - Social History Smoking Status: Former smoker Review of Systems is unable to be obtained Physical Examination - Vital Signs Temperature: 97.4 F Blood Pressure: 136/71 Pulse: 98 Respirations: 20 Pulse Ox (%): 99 - Physical Exam General: Alert, In no apparent distress, Other (Patient with stroke) HEENT: Atraumatic, PERRLA, Mucous membr. moist/pink, EOMI, Sclerae nonicteric Neck: Supple, 2+ carotid pulse no bruit, No LAD, Without JVD or thyroid abnormality Respiratory: Clear to auscultation bilaterally, Normal air movement Cardiovascular: Regular rate/rhythm, Normal S1 S2, Systolic murmur Gastrointestinal: Normal bowel sounds, Soft and benign, Non-distended, Other (PEG tube in place) Musculoskeletal: No tenderness Integumentary: No rashes, Skin breakdown, Pressure ulcer (Sacrum, bilateral heels) Neurological: Sensation intact, Other (Aphasic from his stroke but understands and comprehends; strength is significantly diminished) Lymphatics: No axilla or inguinal lymphadenopathy - Studies Laboratory Data (last 24 hrs) 05/22/21 13:39: PT 14.0 H, INR 1.21 05/22/21 13:39: WBC 12.90 H, Hgb 10.6 L, Hct 32.2 L, Plt Count 521 H D 05/22/21 13:39: Sodium 128 L, Potassium 4.3, BUN 18, Creatinine 0.57, Glucose 127 H, Magnesium 2.2 D, Total Bilirubin 0.5, AST 31, ALT 57, Alkaline Phosphatase 157 H, Lipase 126 Assessment & Plan - Problems (Diagnosis) (1) MRSA bacteremia Current Visit: No Status: Acute (2) Pseudomonas urinary tract infection Current Visit: No Status: Acute (3) Sepsis Current Visit: No Status: Acute Qualifiers: (4) CVA (cerebral vascular accident) Current Visit: No Status: Chronic Qualifiers: (5) GERD (gastroesophageal reflux disease) Current Visit: No Status: Chronic Qualifiers: (6) Gastrostomy tube dependent Current Visit: No Status: Chronic (7) HLD (hyperlipidemia) Current Visit: No Status: Chronic Qualifiers: (8) HTN (hypertension) Current Visit: No Status: Chronic Qualifiers: - Plan Plan: 1. Low-dose beta-adriel therapy 2. IV steroids 3. Continue IV antibiotics 4. Continue wound care 5. PEG tube feedings 6. Continue supportive care 7. GI DVT prophylaxis Discharge Plan: Skilled Nursing Plan to discharge in: Greater than 2 days - Advance Directives Does patient have a Living Will: No Does patient have a Durable POA for Healthcare: No - Code Status/Comfort Care Code Status Assessed: Yes Code Status: Full Code Critical Care: No Time Spent Managing PTS Care (In Minutes): 45
[2021-05-23] MEDS ORDERED: MEDIHONEY 44 ML TOPICAL TUBE TOP SCH (15:00)
[2021-05-23] MEDS: SODIUM HYPOCHLORITE 0.25% 473 ML TOP SCH (17:20)
[2021-05-23] MEDS: COLLAGENASE 30 GM OINTMENT TOP SCH (17:20)
--- NOTE | 2021-05-23 20:55 | CON ---
Date of Consultation: 05/23/2021 Brief History Of Present Illness: The patient is a 65-year-old male known to me from previous admiss ion in the recent past, where he was admitted with partial bowel obstruction/ileus and a significant urinary tract infection. He recovered from that without any surgical intervention on that occasion w ith nonoperative management and was ultimately restarted on his tube feed and did well with that post management. He ultimately is back at the hospital with significant decubitus ulcers as well as pres sure wounds to his heels bilaterally, which were positive for Staph aureus. I am consulted to see berny pedraza for the above-stated issue at this point. He remains confused at this point and nonverbal. Past Medical History: Significant for CVA, hypertension, diabetes, hyperlipidemia, GERD, BPH, hemipl egia, dysphagia, weakness, aphasia. Past Surgical History: He has a gastrostomy tube. Social History: He is a former smoker. Allergies: NO KNOWN DRUG ALLERGIES. INTERVIEW, THE PATIENT IS ESSENTIALLY NONVERBAL, SUCH MOST OF THE INFORMATION IS OBTAINED FROM THE CHART. Home Medications: Include Norvasc, vitamin C, Lipitor, Coreg, vitamin D3, Colace, Cardura, Pepcid, f luoxetine, Protonix, MiraLax, KCl, Flomax, zinc, Provigil, Glucerna, cefazolin. He was getting MediH oney, Merrem, and sodium chloride. Review of Systems: 10-point review of systems other than HPI, unable to obtain. Physical Examination: Vital Signs: At the time of my examination, his blood pressure 136/71, SpO2 98% on room air, heart r ate was 98, respiratory rate 20, temperature 97.4. General: He is awake and alert, but nonverbal. HEENT: Normocephalic. Sclerae are icteric. Mucous membranes moist. Oropharynx clear. Neck: Supple without JVD. Chest: Normal expansion and excursion. Cardiovascular: Regular rate and rhythm. Pulmonary: Clear to auscultation bilaterally. Abdomen: Soft. PEG tube in place. Functional at this point nontender, nondistended. No rebound. No guarding. No focal peritonitis. Skin: Focused examination of the skin shows bilateral heel ulcers, left worse than the right, down t o subcutaneous tissues with cellulitic changes bilaterally on heels, he has a stage II decubitus ulce r also on the sacrum. This also has surrounding cellulitis. These were cultured and found positive for Staph aureus. Laboratory Data: Reveals a white blood count of , hematocrit is 30.2, hemoglobin is 10.1, platelet count was 488, neutrophils 92.5. PT 14.0, INR 1.21. His sodium 134, potassium 3.5, chlorid e 103, carbon dioxide 22, BUN is 17, creatinine 0.5, glucose was 104. He had a chest x-ray performed on 05/22, which is officially read as no acute cardiopulmonary process. No significant change from comparison study. No acute lung parenchymal process seen. was stable. Assessment And Plan: This is a 65-year-old male, who comes in with healed bilateral heel wounds and pressure ulcer, all likely pressure related. 1.Continue medical management. 2.Antibiotic coverage. 3.Wound care. We will initiate Santyl/collagenase with Dakin solution, pressure reduction strategie s by rolling the patient every 2 hours and pressure reduction strategy with Aircast in bilateral lowe r extremities. We will reassess to see if the patient will require surgical intervention if he respo nds to medical management. Thank you for this interesting consult. JENNIFER/CAROL Voice ID: [id number] Report ID: [id number]
--- NOTE | 2021-05-23 23:32 | P.PN ---
Subjective Date of Service: 05/23/21 Subjective: No new changes, No C/O voiced, Improving Patient's family wanted patient transferred to medical floor as patient has been tested positive for the last few weeks. Supervised will move to 2nd floor in a negative pressure room. Review of Systems is unable to be obtained Physical Examination - Vital Signs Temperature: 98.5 F Blood Pressure: 131/69 Pulse: 105 Respirations: 18 Pulse Ox (%): 99 - Physical Exam General: Alert, In no apparent distress, Other (Patient continues to be aphasic) HEENT: Atraumatic, PERRLA, EOMI Neck: Supple, JVD not distended Respiratory: Clear to auscultation bilaterally, Normal air movement Cardiovascular: Regular rate/rhythm, Normal S1 S2, No murmurs Gastrointestinal: Normal bowel sounds, Soft and benign, Non-distended, No tenderness Musculoskeletal: No tenderness Integumentary: Skin breakdown, Skin lesion Neurological: Sensation intact, Cranial nerves 3-12 intact, Abnormal gait, Abnormal strength Lymphatics: No axilla or inguinal lymphadenopathy - Studies Medications List Reviewed: Yes Assessment & Plan - Problems (Diagnosis) (1) MRSA bacteremia Current Visit: No Status: Acute (2) Pseudomonas urinary tract infection Current Visit: No Status: Acute (3) Sepsis Current Visit: No Status: Acute Qualifiers: (4) CVA (cerebral vascular accident) Current Visit: No Status: Chronic Qualifiers: (5) GERD (gastroesophageal reflux disease) Current Visit: No Status: Chronic Qualifiers: (6) Gastrostomy tube dependent Current Visit: No Status: Chronic (7) HLD (hyperlipidemia) Current Visit: No Status: Chronic Qualifiers: (8) HTN (hypertension) Current Visit: No Status: Chronic Qualifiers: (9) Aphasia Current Visit: Yes Status: Acute (10) Chronic heel ulcer with fat layer exposed Current Visit: Yes Status: Acute (11) Sacral decubitus ulcer, stage III Current Visit: Yes Status: Acute - Plan 1. Continue with IV antibiotic 2. Continue with local wound care 3. Wound care consultation/surgical consultation 4. Continue tube feeds 5. Monitor CBC 6. Strict blood sugar monitoring 7. Pain control 8. Supportive care 9. GI and DVT prophylaxis Discharge Plan: Home Plan to discharge in: Greater than 2 days - Advance Directives Does patient have a Living Will: No Does patient have a Durable POA for Healthcare: No - Code Status/Comfort Care Code Status: Full Code Critical Care: No Time Spent Managing PTS Care (In Minutes): 35
[2021-05-24] MEDS ORDERED: NA CHLORIDE 0.9% 100 ML ONE (00:30)
[2021-05-24] MEDS ORDERED: Meropenem 1000 MG/VIAL IV ONE (00:31)
[2021-05-24] MEDS: CEFAZOLIN/SWI 2gm 2 GM/20 ML SYR IVP SCH ×2 (00:37→10:03)
[2021-05-24] MEDS: Meropenem 1,000 MG in NA CHLORIDE 0.9% 100 ML IV SCH ×3 (00:37→18:07)
[2021-05-24] MEDS: HYDROCORTISONE SUC 100 MG INJ IV SCH ×3 (00:38→17:00)
[2021-05-24] MEDS ORDERED: PROPRANOLOL HCL 10 MG TAB PO SCH (01:00)
[2021-05-24] MEDS: PROPRANOLOL HCL 10 MG TAB PO SCH ×3 (05:24→21:44)
[2021-05-24] MEDS: GLUCERNA 1.2 CAL 1,000 ML BOT RTH SCH (10:01)
[2021-05-24] MEDS: NA CHLORIDE 0.9% 1,000 ML IV SCH ×2 (10:02→12:00)
[2021-05-24] MEDS: SODIUM HYPOCHLORITE 0.25% 473 ML TOP SCH (10:03)
[2021-05-24] MEDS: COLLAGENASE 30 GM OINTMENT TOP SCH (10:03)
--- NOTE | 2021-05-24 13:08 | P.PN ---
Subjective Date of Service: 05/24/21 Chief Complaint: Tachyarrhythmia Subjective: No new changes (Patient has no new complaints) Physical Examination - Vital Signs Temperature: 97.0 F Blood Pressure: 163/70 Pulse: 91 Respirations: 18 Pulse Ox (%): 91 - Physical Exam General: Alert, In no apparent distress, Cooperative Gastrointestinal: Soft and benign, Non-distended, No tenderness, No masses, No rebound, No guarding Integumentary: Other (sacral stage II/III decubitus pressure ulcer, stage II/III LEFT heel ulcer) - Studies Medications List Reviewed: Yes Assessment And Plan - Current Problems (Diagnosis) (1) Sacral decubitus ulcer, stage III Current Visit: Yes Status: Acute Plan: - I have explained the risks, benefits and alternatives of surgical debridement of Sacral ulcer, left heel ulcer with family - will proceed in AM - NPO after midnight (2) Chronic heel ulcer with fat layer exposed Current Visit: Yes Status: Acute - Plan -
[2021-05-24] MEDS ORDERED: VANCOMYCIN 1 GM in NA CHLORIDE 0.9% 250 ML IVPB SCH ×2 (16:06→19:00)
[2021-05-24] MEDS ORDERED: VANCOMYCIN 1.5 GM in NA CHLORIDE 0.9% 500 ML IVPB ONE (17:00)
--- NOTE | 2021-05-24 21:01 | CON ---
History Of Present Illness: The patient is a 65-year-old male. We were consulted for sacral unstage able decubitus and left heel unstageable decubitus and right heel DTI. The patient has significant p ast medical history of stroke, type 2 diabetes mellitus, hyperlipidemia, hypertension, dysphagia, hem iplegia, and gastrostomy tube. The patient is nonverbal. Most of the history was obtained through edical records and staff. Past Medical History: As per HPI. Social History: Tobacco positive. Alcohol negative. Family History: Noncontributory. Medications: Cefazolin, meropenem, and collagenase to the wounds. See MAR for other medications. Allergies: NO KNOWN DRUG ALLERGIES. Review of Systems: Unable to perform. Physical Examination: General: This is a 65-year-old male lying in bed, not in any acute cardiopulmonary distress. Vital Signs: Temperature 97, pulse 91, respirations 18, and blood pressure 153/70. HEENT: Unremarkable. Neck: Supple. Lungs: Basal crackles. Heart: S1 and S2. Regular. Abdomen: Soft and nontender. Bowel sounds present. Extremity: No edema. Skin: Sacral and bilateral heel wound noted. Laboratory Data: Shows WBC 13, hemoglobin 10.1, and platelets are 488. Chemistry shows sodium 134, potassium 3.5, chloride 103, bicarb 22, BUN 17, creatinine 0.5, and glucose 104. Albumin level is 1. 9. Assessment And Plan: 65-year-old male with sacrococcyx unstageable decubitus ulcer. I agree with de jacqueline. We will recommend to continue vancomycin and meropenem pending culture results. Disconti nue cefazolin. Left heel unstageable wound needs debridement. Right heel deep tissue injury, Betadi ne and foam dressing. Recommend to have a low air loss mattress and offloading and floating of the h eels and using wedge pillow to offload the sacrococcyx area. Recommend long-term acute care. We allyssa l follow the patient closely. Thank you Dr. De Los Santos for consult. NF/COMFORTL Voice ID: [id number] Report ID: [id number]
[2021-05-25] MEDS: Meropenem 1,000 MG in NA CHLORIDE 0.9% 100 ML IV SCH ×3 (01:14→17:31)
[2021-05-25] MEDS: HYDROCORTISONE SUC 100 MG INJ IV SCH ×3 (01:14→17:31)
[2021-05-25] MEDS: NA CHLORIDE 0.9% 1,000 ML IV SCH ×3 (01:15→21:36)
--- NOTE | 2021-05-25 03:28 | P.PN ---
Date of Service: 05/24/21 Subjective Spoke with General surgery and they are going to debride the sacral wound and heel wound. Then patient can be transfer back to [facility]. Family had transfer patient to assisted living from [facility] Review of Systems is unable to be obtained Physical Examination - Vital Signs Reviewed - Physical Exam General: Alert, In no apparent distress, Other (Patient continues to be aphasic) Respiratory: Clear to auscultation bilaterally, Normal air movement Cardiovascular: Regular rate/rhythm, Normal S1 S2, No murmurs Gastrointestinal: Normal bowel sounds, Soft and benign, Non-distended, No tenderness Musculoskeletal: No tenderness Integumentary: Skin breakdown, Skin lesion Neurological: Sensation intact, Cranial nerves 3-12 intact, Abnormal gait, Abnormal strength Assessment & Plan - Problems (Diagnosis) (1) MRSA bacteremia Current Visit: No Status: Acute (2) Pseudomonas urinary tract infection Current Visit: No Status: Acute (3) Sepsis Current Visit: No Status: Acute (4) CVA (cerebral vascular accident) Current Visit: No Status: Chronic (5) GERD (gastroesophageal reflux disease) Current Visit: No Status: Chronic (6) Gastrostomy tube dependent Current Visit: No Status: Chronic (7) HLD (hyperlipidemia) Current Visit: No Status: Chronic (8) HTN (hypertension) Current Visit: No Status: Chronic (9) Aphasia Current Visit: Yes Status: Acute (10) Chronic heel ulcer with fat layer exposed Current Visit: Yes Status: Acute (11) Sacral decubitus ulcer, stage III Current Visit: Yes Status: Acute - Plan Continue plan of care as mentioned below: 1. Continue with IV antibiotic 2. Continue with local wound care 3. Wound care consultation/surgical consultation 4. Continue tube feeds 5. Monitor CBC 6. Strict blood sugar monitoring 7. Pain control 8. Supportive care 9. GI and DVT prophylaxis Discharge Plan: Home Plan to discharge in: Greater than 2 days - Advance Directives Does patient have a Living Will: No Does patient have a Durable POA for Healthcare: No - Code Status/Comfort Care Code Status: Full Code Critical Care: No Time Spent Managing PTS Care (In Minutes): 35
[2021-05-25] MEDS: PROPRANOLOL HCL 10 MG TAB PO SCH ×3 (05:00→21:35)
--- NOTE | 2021-05-25 06:30 | P.PN ---
Date of Service: 05/25/21 Subjective: No acute events overnight per nursing staff Scheduled for I&D this morning ROS: 10 point ROS as noted above, otherwise negative Physical exam GEN: Alert, aphasic HEENT: Normal conjunctiva, sclera anicteric CV: Regular rate and rhythm, no edema Pulm: Nonlabored respirations on room air ABD: Soft, nontender, nondistended Integumentary: Sacral decubitus ulcer, heel ulcer Problem List MRSA bacteremia Pseudomonas UTI Sepsis secondary to the above CVA with aphasia GERD Gastrostomy tube dependent HTN HLD Chronic heel ulcer with fat layer exposed Sacral decubitus ulcer, stage III Continue IV antibiotics Continue local wound care General surgery consulted, plan for I&D this morning Has been tolerating tube feeds Monitor CBC/BMP Strict glucose control Pain control as needed Infectious disease following Patient may benefit from LTAC Code: full Dispo: possibly benefit from LTAC with antibiotics, wound care, tube feeds Time Spent Managing Pts Care (In Minutes): 35
[2021-05-25 07:48] LABS: Hematocrit 28.5 % (39.6-49.0); MPV 6.8 fL (7.6-11.3); RBC Red Blood Cell Count 3.15 M/uL (4.33-5.43)
[2021-05-25 08:10] LABS: BUN Blood Urea Nitrogen 15 mg/dL (7-18); Bicarbonate 31 mmol/L (21-32); Glucose Level 102 mg/dL (74-106); Magnesium 1.8 mg/dL (1.8-2.4); Sodium Level 137 mmol/L (136-145)
[2021-05-25 08:17] LABS: Potassium 2.4 mmol/L (3.5-5.1)
[2021-05-25] MEDS ORDERED: propofoL 200 MG/20 ML VIAL IV ONE (08:23)
[2021-05-25] MEDS ORDERED: FENTANYL CITR 100 MCG/2 ML ONE (08:23)
[2021-05-25] MEDS ORDERED: LIDOCAINE 1% MPF 5 ML VIAL ONE (08:24)
[2021-05-25] MEDS ORDERED: VANCOMYCIN 1.75 GM in NA CHLORIDE 0.9% 500 ML IVPB SCH ×4 (09:00)
[2021-05-25 09:02] LABS: ALT/SGPT 28 U/L (12-78); AST/SGOT 24 U/L (15-37); Albumin 1.8 g/dL (3.4-5.0); Alkaline Phosphatase 113 U/L (45-117); BUN Blood Urea Nitrogen 14 mg/dL (7-18); Bicarbonate 30 mmol/L (21-32); Bilirubin Total 0.3 mg/dL (0.2-1.0); Glucose Level 109 mg/dL (74-106); Potassium 2.6 mmol/L (3.5-5.1); Protein, Total 6.5 g/dL (6.4-8.2); Sodium Level 138 mmol/L (136-145)
[2021-05-25] MEDS ORDERED: Meropenem 1000 MG/VIAL IV ONE (10:00)
[2021-05-25] MEDS ORDERED: KCL 20 MEQ/100 mL IVPB 20 MEQ/100 ML BAG IV SCH (10:00)
[2021-05-25] MEDS ORDERED: NA CHLORIDE 0.9% 100 ML ONE (10:02)
[2021-05-25] MEDS: SODIUM HYPOCHLORITE 0.25% 473 ML TOP SCH (10:15)
[2021-05-25] MEDS: COLLAGENASE 30 GM OINTMENT TOP SCH (10:15)
[2021-05-25] MEDS ORDERED: POTASSIUM CL 40 MEQ in NA CHLORIDE 0.9% 500 ML IV SCH (12:00)
--- NOTE | 2021-05-25 12:11 | P.PN ---
Subjective Date of Service: 05/25/21 Chief Complaint: Tachyarrhythmia Patient seen and examined at bedside, resting comfortably. Review of Systems 10-point ROS is otherwise unremarkable Physical Examination - Vital Signs Temperature: 97.5 F Blood Pressure: 152/67 Pulse: 93 Respirations: 18 Pulse Ox (%): 97 - Physical Exam General: Cachectic, Other (AMS) HEENT: Atraumatic, Normocephalic Neck: Supple, 2+ carotid pulse no bruit Respiratory: Clear to auscultation bilaterally, Normal air movement Cardiovascular: Regular rate/rhythm, Normal S1 S2 Gastrointestinal: Normal bowel sounds, Other (PEG tube) Integumentary: Other (right buttock/sacral unstageable wound. Left heel unstageable wound, right heel DTI) Urinary: Fragoso catheter - Studies Medications List Reviewed: Yes Assessment And Plan - Plan Antibiotics Cefazolin: urrent Meropenem 05/23current Vancomycin: Assessment/plan Right buttocks/sacrococcygeal unstable decubitus wound -Plan for surgical debridement to be performed tomorrow -Wound cultures from previous visit obtained on 05/14 grew Pseudomonas and Proteus both sensitive to meropenem. Patient was discharged on 05/21 on IV meropenem and IV cefazolin, meropenem restarted on this admission. -Blood cultures from previous visit obtained on 05/11 grew MSSA with a vancomycin KIMBERLEY greater than 2. Patient was discharged on IV cefazolin with a tentative completion date of 05/29. Vancomycin was started on this admission however due to high KIMBERLEY vancomycin has been discontinued and patient has been restarted on cefazolin. Unfortunately no blood cultures obtained on this admission. -Recommend placing low air loss mattress. Reposition patient in bed every 2 hours during waking hours, avoid direct pressure and offload with wedge pillows. Left heel unstageable pressure ulcer -Recommend surgical debridement. Right heel deep tissue injury -Recommend keeping area covered with Mepilex. Continue to offload/float heels. Protein caloric malnutrition: Moderate Low albumin, 1.8 g/dl. Patient with PEG tube feedings, recommend nutrition consultation. Adequate nutrition needed for proper wound healing. Anemia Continue to monitor H&H, recommend transfusion if hemoglobin drops low 7.0. -Medical management per primary team Continue to monitor CBC and BMP Plan of care discussed with Dr. Manuel Thank you for consultation.
[2021-05-25] MEDS: CEFAZOLIN/SWI 2gm 2 GM/20 ML SYR IVP SCH ×2 (13:11→17:31)
[2021-05-25] MEDS: GLUCERNA 1.2 CAL 1,000 ML BOT RTH SCH (13:18)
[2021-05-26] MEDS: KCL 20 MEQ/100 mL IVPB 20 MEQ/100 ML BAG IV SCH ×6 (00:02→22:36)
[2021-05-26] MEDS: Meropenem 1,000 MG in NA CHLORIDE 0.9% 100 ML IV SCH ×3 (00:02→17:51)
[2021-05-26] MEDS: CEFAZOLIN/SWI 2gm 2 GM/20 ML SYR IVP SCH ×3 (00:03→17:50)
[2021-05-26] MEDS: HYDROCORTISONE SUC 100 MG INJ IV SCH ×3 (00:04→17:52)
[2021-05-26] MEDS: PROPRANOLOL HCL 10 MG TAB PO SCH ×3 (05:47→22:08)
--- NOTE | 2021-05-26 06:33 | P.PN ---
Date of Service: 05/26/21 Subjective: No acute events overnight No new complaints Scheduled for I&D today ROS: 10 point ROS as noted above, otherwise negative Physical exam GEN: Alert, aphasic, nods yes/no, weak voice HEENT: Normal conjunctiva, sclera anicteric CV: Regular rate and rhythm, no edema Pulm: Nonlabored respirations on room air ABD: Soft, nontender, nondistended Integumentary: Sacral decubitus ulcer, heel ulcer Problem List MRSA bacteremia Pseudomonas UTI Sepsis secondary to the above CVA with aphasia GERD Gastrostomy tube dependent HTN HLD Chronic heel ulcer with fat layer exposed Sacral decubitus ulcer, stage III Continue IV antibiotics Continue local wound care General surgery consulted, plan for I&D today Has been tolerating tube feeds Monitor CBC/BMP Strict glucose control Pain control as needed Infectious disease following Code: full Dispo: Discussed with family, daughter is agreeable to LTAC Social service consulted Time Spent Managing Pts Care (In Minutes): 35
[2021-05-26] MEDS: SODIUM HYPOCHLORITE 0.25% 473 ML TOP SCH (09:00)
[2021-05-26] MEDS: COLLAGENASE 30 GM OINTMENT TOP SCH (09:00)
[2021-05-26 09:27] LABS: BUN Blood Urea Nitrogen 13 mg/dL (7-18); Bicarbonate 32 mmol/L (21-32); Glucose Level 88 mg/dL (74-106); Magnesium 1.9 mg/dL (1.8-2.4); Sodium Level 138 mmol/L (136-145)
[2021-05-26 09:34] LABS: Potassium 2.9 mmol/L (3.5-5.1)
[2021-05-26 09:36] LABS: Absolute Lymphocytes (CBC) 2.3 K/uL (0.7-4.9); Hematocrit 29.5 % (39.6-49.0); MPV 6.7 fL (7.6-11.3); RBC Red Blood Cell Count 3.26 M/uL (4.33-5.43)
--- NOTE | 2021-05-26 11:31 | P.PN ---
Subjective Date of Service: 05/26/21 Chief Complaint: Tachyarrhythmia Patient seen and examined at bedside, no acute events. Review of Systems 10-point ROS is otherwise unremarkable Physical Examination - Vital Signs Temperature: 97.0 F Blood Pressure: 170/94 Pulse: 78 Respirations: 18 Pulse Ox (%): 98 - Studies Laboratory Last Values WBC 12.90 K/uL (4.3-10.9) H 05/22/21 13:39 RBC 3.56 M/uL (4.33-5.43) L 05/22/21 13:39 Hgb 10.6 g/dL (13.6-17.9) L 05/22/21 13:39 Hct 32.2 % (39.6-49.0) L 05/22/21 13:39 MCV 90.5 fL (80-100) 05/22/21 13:39 MCH 29.9 pg (27.0-35.0) 05/22/21 13:39 MCHC 33.0 g/dL (32.0-36.0) 05/22/21 13:39 RDW 16.8 % (12.1-15.2) H 05/22/21 13:39 Plt Count 521 K/uL (152-406) H D 05/22/21 13:39 MPV 7.0 fL (7.6-11.3) L 05/22/21 13:39 Neutrophils % 84.6 % (41.7-73.7) H 05/22/21 13:39 Lymphocytes % 7.9 % (15.3-44.8) L 05/22/21 13:39 Monocytes % 6.4 % (3.3-12.3) 05/22/21 13:39 Eosinophils % 0.6 % (0-4.4) 05/22/21 13:39 Basophils % 0.5 % (0-1.3) 05/22/21 13:39 Absolute Neutrophils 10.9 K/uL (1.8-8.0) H 05/22/21 13:39 Absolute Lymphocytes 1.0 K/uL (0.7-4.9) 05/22/21 13:39 Absolute Monocytes 0.8 K/uL (0.1-1.3) 05/22/21 13:39 Absolute Eosinophils 0.1 K/uL (0-0.5) 05/22/21 13:39 Absolute Basophils 0.1 K/uL (0-0.5) 05/22/21 13:39 PT 14.0 SECONDS (9.5-12.5) H 05/22/21 13:39 INR 1.21 05/22/21 13:39 Sodium 128 mmol/L (136-145) L 05/22/21 13:39 Potassium 4.3 mmol/L (3.5-5.1) 05/22/21 13:39 Chloride 97 mmol/L (98-107) L 05/22/21 13:39 Carbon Dioxide 24 mmol/L (21-32) 05/22/21 13:39 BUN 18 mg/dL (7-18) 05/22/21 13:39 Creatinine 0.57 mg/dL (0.55-1.3) 05/22/21 13:39 Estimated GFR > 90 mL/min (=/>90) 05/22/21 13:39 Glucose 127 mg/dL (74-106) H 05/22/21 13:39 Lactic Acid 1.0 mmol/L (0.4-2.0) 05/22/21 17:03 Calcium 9.7 mg/dL (8.5-10.1) D 05/22/21 13:39 Magnesium 2.2 mg/dL (1.8-2.4) D 05/22/21 13:39 Total Bilirubin 0.5 mg/dL (0.2-1.0) 05/22/21 13:39 Direct Bilirubin 0.2 mg/dL (0-0.2) 05/22/21 13:39 AST 31 U/L (15-37) 05/22/21 13:39 ALT 57 U/L (12-78) 05/22/21 13:39 Alkaline Phosphatase 157 U/L (45-117) H 05/22/21 13:39 Troponin I High Sens 7.50 pg/mL (<58.9) 05/22/21 13:39 NT-Pro-B Natriuret Pep 112 pg/mL (<125) 05/22/21 13:39 Serum Total Protein 7.6 g/dL (6.4-8.2) 05/22/21 13:39 Albumin 2.0 g/dL (3.4-5.0) L 05/22/21 13:39 Globulin 5.6 g/dL (2.3-3.5) H 05/22/21 13:39 Albumin/Globulin Ratio 0.4 (1.1-1.8) L 05/22/21 13:39 Lipase 126 U/L (73-393) 05/22/21 13:39 Procalcitonin < 0.05 ng/mL (<0.050) 05/22/21 17:03 Medications List Reviewed: Yes Assessment And Plan - Plan Antibiotics Cefazolin: urrent Meropenem 05/23current Vancomycin: Assessment/plan Right buttocks/sacrococcygeal unstable decubitus wound -Plan for surgical debridement to be performed once patient's potassium has stabilized -Wound cultures from previous visit obtained on 05/14 grew Pseudomonas and Proteus both sensitive to meropenem. Patient was discharged on 05/21 on IV meropenem and IV cefazolin, meropenem restarted on this admission. -Blood cultures from previous visit obtained on 05/11 grew MSSA with a vancomycin KIMBERLEY greater than 2. Patient was discharged on IV cefazolin with a tentative completion date of 05/29. Vancomycin was started on this admission however due to high KIMBERLEY vancomycin has been discontinued and patient has been restarted on cefazolin. Unfortunately no blood cultures obtained on this admission. -Low air loss mattress placed. Reposition patient in bed every 2 hours during waking hours, avoid direct pressure and offload with wedge pillows. Left heel unstageable pressure ulcer -Recommend surgical debridement. Wound care per surgical team, currently utilizing Santyl. Continue to offload/float heels. Right heel deep tissue injury -Wound care per surgical team, currently utilizing Santyl. Continue to offload/float heels. Protein caloric malnutrition: Moderate Low albumin, 1.8 g/dl. Patient with PEG tube feedings, recommend nutrition consultation. Adequate nutrition needed for proper wound healing. Anemia Continue to monitor H&H, recommend transfusion if hemoglobin drops low 7.0. -Medical management per primary team Continue to monitor CBC and BMP Plan of care discussed with Dr. Manuel Thank you for consultation.
[2021-05-26] MEDS: NA CHLORIDE 0.9% 1,000 ML IV SCH (17:49)
[2021-05-27] MEDS: KCL 20 MEQ/100 mL IVPB 20 MEQ/100 ML BAG IV SCH ×2 (00:28→02:35)
[2021-05-27] MEDS: CEFAZOLIN/SWI 2gm 2 GM/20 ML SYR IVP SCH ×4 (00:39→17:00)
[2021-05-27] MEDS: Meropenem 1,000 MG in NA CHLORIDE 0.9% 100 ML IV SCH ×3 (00:40→18:45)
[2021-05-27] MEDS: HYDROCORTISONE SUC 100 MG INJ IV SCH ×3 (00:43→18:45)
[2021-05-27] MEDS: PROPRANOLOL HCL 10 MG TAB PO SCH ×3 (04:46→21:00)
[2021-05-27] MEDS: NA CHLORIDE 0.9% 1,000 ML IV SCH ×4 (06:30→18:34)
--- NOTE | 2021-05-27 06:32 | P.PN ---
Date of Service: 05/27/21 Subjective: no acute events overnight scheduled for I&D today, delayed due to hypokalemia no new complaints ROS: 10 point ROS as noted above, otherwise negative Physical exam GEN: Alert, aphasic, nods yes/no, weak voice HEENT: Normal conjunctiva, sclera anicteric CV: Regular rate and rhythm, no edema Pulm: Nonlabored respirations on room air ABD: Soft, nontender, nondistended Integumentary: Sacral decubitus ulcer, heel ulcer Problem List MRSA bacteremia Pseudomonas UTI Sepsis secondary to the above CVA with aphasia GERD Gastrostomy tube dependent HTN HLD Chronic heel ulcer with fat layer exposed Sacral decubitus ulcer, stage III Continue IV antibiotics, ID team following Continue local wound care General surgery consulted, plan for I&D today Has been tolerating tube feeds Strict glucose control Pain control as needed overall seems to be improving will need retirement antibiotics, wound care Code: full Dispo: Discussed with family, daughter is agreeable to LTAC Social service consulted Time Spent Managing Pts Care (In Minutes): 35
[2021-05-27 07:08] LABS: Absolute Lymphocytes (CBC) 1.8 K/uL (0.7-4.9); Hematocrit 32.3 % (39.6-49.0); Lymphocytes % 18.7 % (15.3-44.8); MPV 6.7 fL (7.6-11.3); RBC Red Blood Cell Count 3.55 M/uL (4.33-5.43)
[2021-05-27 07:18] LABS: BUN Blood Urea Nitrogen 14 mg/dL (7-18); Bicarbonate 30 mmol/L (21-32); Glucose Level 96 mg/dL (74-106); Magnesium 1.8 mg/dL (1.8-2.4); Potassium 3.5 mmol/L (3.5-5.1); Sodium Level 137 mmol/L (136-145)
[2021-05-27] MEDS ORDERED: MAGNESIUM SULFATE 1 gm IVPB 1 GM/100 ML BAG IV ONE (08:00)
[2021-05-27] MEDS ORDERED: KCL 20 MEQ/100 mL IVPB 20 MEQ/100 ML BAG IV SCH (09:00)
[2021-05-27] MEDS: COLLAGENASE 30 GM OINTMENT TOP SCH (09:00)
[2021-05-27] MEDS: SODIUM HYPOCHLORITE 0.25% 473 ML TOP SCH (09:00)
[2021-05-27] MEDS ORDERED: BUPIVACAINE 0.25% PF 10 ML VIAL ONE (09:30)
[2021-05-27] MEDS ORDERED: SODIUM HYPOCHLORITE 0.25% 473 ML ONE (09:31)
[2021-05-27] MEDS ORDERED: dexAMETHasone 4 MG/ML VIAL ONE (09:34)
[2021-05-27] MEDS ORDERED: FENTANYL CITR 100 MCG/2 ML ONE (09:34)
[2021-05-27] MEDS ORDERED: propofoL 200 MG/20 ML VIAL IV ONE (09:34)
[2021-05-27] MEDS ORDERED: KETOROLAC 30 MG/ML INJ ONE (09:34)
[2021-05-27] MEDS ORDERED: LIDOCAINE 2% MPF 5 ML VIAL ONE (09:34)
[2021-05-27] MEDS ORDERED: ONDANSETRON 4 MG/2 ML VIAL ONE (09:34)
--- NOTE | 2021-05-27 10:27 | P.OP ---
Preoperative diagnosis: LEFT heel pressure ulcer, Stage IV Sacral Ulcer Postoperative diagnosis: LEFT heel pressure ulcer, Stage IV Sacral Ulcer Primary procedure: Debridement of Stage IV Sacral Ulcer Secondary procedure: Debridement of LEFT heel pressure ulcer Anesthesia: MAC + Local Estimated blood loss: <5cc Specimen: debridement tissue Findings: necrotic tissue to sacrum RIGHT buttock, LEFT heel necrosis Complications: None Transferred to: Recovery Room Condition: Good
[2021-05-27] MEDS ORDERED: NA CHLORIDE 0.9% 1,000 ML ONE (18:34)
--- NOTE | 2021-05-27 22:16 | OP ---
Date of Procedure: 05/27/2021 Surgeon: Santiago Cooper MD, Preoperative Diagnoses: 1.Left heel pressure ulcer stage #1. 2.Stage IV sacral decubitus pressure ulcer. Postoperative Diagnoses: 1.Left heel pressure ulcer stage #1. 2.Stage IV sacral decubitus pressure ulcer. Procedure Performed: 1.Debridement of stage IV sacral decubitus ulcer. 2.Debridement of left heel pressure ulcer. Anesthesia: MAC plus local with 0.25% Marcaine without epinephrine. Estimated Blood Loss: Less 5 cc. Specimen: Debridement tissue. Findings: 1.Sacral ulcer it was stage IV extending to the bone. Necrotic tissue evident in the area. I debri ded the area circumferentially. There were 2 areas involved, 1 directly over the sacrum, 1 partially to the right buttock area. Both of these were debrided sharply. 2.Left heel necrosis from pressure effect circumferentially around into subcutaneous tissues. Complications: None. Disposition: The patient transferred to recovery room in good condition. Procedure In Detail: After informed consent was obtained, the patient was brought to the operating r oom, prepped and draped in the usual sterile fashion after adequate anesthesia was achieved. I sharp ly dissected the area of the sacrum down through subcutaneous tissues where necrotic tissue was encou ntered. I debrided all the way down to the fascia abutting the bone. All necrotic tissue was debrid ed at this point. I then turned my attention to an area of additional pressure on the right buttock just to the right of midline. This area was approximately 3.5 cm x 2 cm down into subcutaneous fat. I debrided this area as well at the same time using sharp dissection and electrocautery. After this was completely debrided, I then used electrocautery to achieve hemostasis of the area. The area was copiously irrigated and cleansed out multiple times and scrubbed out and then packed with Dakin soak ed Kerlix and sterile dressing placed over top. I then turned my attention to the left heel. There was necrosis circumferentially around. This was sharply dissected free and I used a curette to take a ll necrotic tissue off the anterior surface of the heel. I then cleansed this area once again, and a fter the area was completely cleaned and necrotic tissue was removed, I then wrapped it with Dakin so aked Kerlix and sterile dressing placed over top and pressure reduction strategies were engaged at th is point. The patient tolerated the procedure well without evidence of complication and transferred to PACU in good condition. All counts were correct at the end of the case. JENNIFER/CAROL Voice ID: [id number] Report ID: [id number]
[2021-05-28] MEDS: Meropenem 1,000 MG in NA CHLORIDE 0.9% 100 ML IV SCH ×3 (01:21→17:11)
[2021-05-28] MEDS: CEFAZOLIN/SWI 2gm 2 GM/20 ML SYR IVP SCH ×3 (01:22→17:10)
[2021-05-28] MEDS: HYDROCORTISONE SUC 100 MG INJ IV SCH ×3 (01:22→17:11)
[2021-05-28] MEDS ORDERED: NA CHLORIDE 0.9% 100 ML ONE (01:36)
[2021-05-28] MEDS: PROPRANOLOL HCL 10 MG TAB PO SCH ×3 (05:00→21:00)
--- NOTE | 2021-05-28 06:23 | P.PN ---
Date of Service: 05/28/21 Subjective: no acute events overnight no new complaints tolerating tube feeds s/p I&D yesterday ROS: 10 point ROS as noted above, otherwise negative Physical exam GEN: Alert, aphasic, nods yes/no, weak voice HEENT: Normal conjunctiva, sclera anicteric CV: Regular rate and rhythm, no edema Pulm: Non-labored respirations on room air ABD: Soft, nontender, nondistended Integumentary: Sacral decubitus ulcer, heel ulcer Problem List MRSA bacteremia Pseudomonas UTI Sepsis secondary to the above CVA with aphasia GERD Gastrostomy tube dependent HTN HLD Chronic heel ulcer with fat layer exposed Sacral decubitus ulcer, stage III Continue IV antibiotics, ID team following Continue local wound care General surgery consulted, s/p for I&D Has been tolerating tube feeds Strict glucose control Pain control as needed overall seems to be improving will need skilled nursing antibiotics, wound care Code: full Dispo: Discussed with family, daughter is agreeable to LTAC Social service consulted Time Spent Managing Pts Care (In Minutes): 35
[2021-05-28 06:52] LABS: BUN Blood Urea Nitrogen 17 mg/dL (7-18); Bicarbonate 31 mmol/L (21-32); Glucose Level 133 mg/dL (74-106); Magnesium 2.1 mg/dL (1.8-2.4); Sodium Level 136 mmol/L (136-145)
[2021-05-28] MEDS ORDERED: POTASSIUM 25 MEQ EFFERV TAB PO ONE (09:53)
[2021-05-28] MEDS: COLLAGENASE 30 GM OINTMENT TOP SCH (10:15)
[2021-05-28] MEDS: SODIUM HYPOCHLORITE 0.25% 473 ML TOP SCH (10:15)
--- NOTE | 2021-05-28 11:24 | P.PN ---
Subjective Date of Service: 05/28/21 Chief Complaint: Tachyarrhythmia Patient seen and examined at bedside, status post surgical debridement of the right buttocks/sacral wound and left heel. Plan to transfer to [facility]. Review of Systems 10-point ROS is otherwise unremarkable Physical Examination - Vital Signs Temperature: 98.5 F Blood Pressure: 153/84 Pulse: 80 Respirations: 18 Pulse Ox (%): 98 - Studies Laboratory Last Values WBC 12.90 K/uL (4.3-10.9) H 05/22/21 13:39 RBC 3.56 M/uL (4.33-5.43) L 05/22/21 13:39 Hgb 10.6 g/dL (13.6-17.9) L 05/22/21 13:39 Hct 32.2 % (39.6-49.0) L 05/22/21 13:39 MCV 90.5 fL (80-100) 05/22/21 13:39 MCH 29.9 pg (27.0-35.0) 05/22/21 13:39 MCHC 33.0 g/dL (32.0-36.0) 05/22/21 13:39 RDW 16.8 % (12.1-15.2) H 05/22/21 13:39 Plt Count 521 K/uL (152-406) H D 05/22/21 13:39 MPV 7.0 fL (7.6-11.3) L 05/22/21 13:39 Neutrophils % 84.6 % (41.7-73.7) H 05/22/21 13:39 Lymphocytes % 7.9 % (15.3-44.8) L 05/22/21 13:39 Monocytes % 6.4 % (3.3-12.3) 05/22/21 13:39 Eosinophils % 0.6 % (0-4.4) 05/22/21 13:39 Basophils % 0.5 % (0-1.3) 05/22/21 13:39 Absolute Neutrophils 10.9 K/uL (1.8-8.0) H 05/22/21 13:39 Absolute Lymphocytes 1.0 K/uL (0.7-4.9) 05/22/21 13:39 Absolute Monocytes 0.8 K/uL (0.1-1.3) 05/22/21 13:39 Absolute Eosinophils 0.1 K/uL (0-0.5) 05/22/21 13:39 Absolute Basophils 0.1 K/uL (0-0.5) 05/22/21 13:39 PT 14.0 SECONDS (9.5-12.5) H 05/22/21 13:39 INR 1.21 05/22/21 13:39 Sodium 128 mmol/L (136-145) L 05/22/21 13:39 Potassium 4.3 mmol/L (3.5-5.1) 05/22/21 13:39 Chloride 97 mmol/L (98-107) L 05/22/21 13:39 Carbon Dioxide 24 mmol/L (21-32) 05/22/21 13:39 BUN 18 mg/dL (7-18) 05/22/21 13:39 Creatinine 0.57 mg/dL (0.55-1.3) 05/22/21 13:39 Estimated GFR > 90 mL/min (=/>90) 05/22/21 13:39 Glucose 127 mg/dL (74-106) H 05/22/21 13:39 Lactic Acid 1.0 mmol/L (0.4-2.0) 05/22/21 17:03 Calcium 9.7 mg/dL (8.5-10.1) D 05/22/21 13:39 Magnesium 2.2 mg/dL (1.8-2.4) D 05/22/21 13:39 Total Bilirubin 0.5 mg/dL (0.2-1.0) 05/22/21 13:39 Direct Bilirubin 0.2 mg/dL (0-0.2) 05/22/21 13:39 AST 31 U/L (15-37) 05/22/21 13:39 ALT 57 U/L (12-78) 05/22/21 13:39 Alkaline Phosphatase 157 U/L (45-117) H 05/22/21 13:39 Troponin I High Sens 7.50 pg/mL (<58.9) 05/22/21 13:39 NT-Pro-B Natriuret Pep 112 pg/mL (<125) 05/22/21 13:39 Serum Total Protein 7.6 g/dL (6.4-8.2) 05/22/21 13:39 Albumin 2.0 g/dL (3.4-5.0) L 05/22/21 13:39 Globulin 5.6 g/dL (2.3-3.5) H 05/22/21 13:39 Albumin/Globulin Ratio 0.4 (1.1-1.8) L 05/22/21 13:39 Lipase 126 U/L (73-393) 05/22/21 13:39 Procalcitonin < 0.05 ng/mL (<0.050) 05/22/21 17:03 Medications List Reviewed: Yes Assessment And Plan - Plan Physical Exam: General: Cachectic, Other (AMS) HEENT: Atraumatic, Normocephalic Neck: Supple, 2+ carotid pulse no bruit Respiratory: Clear to auscultation bilaterally, Normal air movement Cardiovascular: Regular rate/rhythm, Normal S1 S2 Gastrointestinal: Normal bowel sounds, Other (PEG tube) Integumentary: Other (right buttock/sacral unstageable wound. Left heel unstageable wound, right heel DTI) Urinary: Fragoso catheter Antibiotics Cefazolin: urrent Meropenem 05/23current Vancomycin: / Assessment/plan Right buttocks/sacrococcygeal unstable decubitus wound -Status post debridement performed on 05/27. Continue wound care per surgical team. -Wound cultures from previous visit obtained on 05/14 grew Pseudomonas and Proteus both sensitive to meropenem. Patient was discharged on 05/21 on IV meropenem and IV cefazolin, meropenem restarted on this admission. -Blood cultures from previous visit obtained on 05/11 grew MSSA with a vancomycin KIMBERLEY greater than 2. Patient was discharged on IV cefazolin with a tentative completion date of 05/29. Vancomycin was started on this admission however due to high KIMBERLEY vancomycin has been discontinued and patient has been restarted on cefazolin. Unfortunately no blood cultures obtained on this admission. -Low air loss mattress placed. Reposition patient in bed every 2 hours during waking hours, avoid direct pressure and offload with wedge pillows. Left heel unstageable pressure ulcer -Status post surgical debridement performed on 05/27. Wound care per surgical team, Continue to offload/float heels. Right heel deep tissue injury -Wound care per surgical team, currently utilizing Santyl. Continue to offload/float heels. Protein caloric malnutrition: Moderate Low albumin, 1.8 g/dl. Patient with PEG tube feedings, recommend nutrition con sultation. Adequate nutrition needed for proper wound healing. Anemia Continue to monitor H&H, recommend transfusion if hemoglobin drops low 7.0. -Medical management per primary team Continue to monitor CBC and BMP Plan of care discussed with Dr. Manuel Thank you for consultation.
--- NOTE | 2021-05-28 15:57 | P.PN ---
Subjective Date of Service: 05/28/21 Chief Complaint: Tachyarrhythmia Subjective: No new changes (dressings clean and dry, patient resting well) Physical Examination - Vital Signs Temperature: 97.5 F Blood Pressure: 159/81 Pulse: 93 Respirations: 18 Pulse Ox (%): 98 - Physical Exam General: Alert, In no apparent distress, Cooperative Integumentary: Other (dressings on heel and sacrum clean and dry) - Studies Medications List Reviewed: Yes Assessment And Plan - Current Problems (Diagnosis) (1) Sacral decubitus ulcer, stage III Current Visit: Yes Status: Acute Plan: - wound care to continue per orders daily - pressure reduction - air cast preferred to prevent heel pressure - continue medical management per primary team (2) Chronic heel ulcer with fat layer exposed Current Visit: Yes Status: Acute - Plan -
[2021-05-29] MEDS: Meropenem 1,000 MG in NA CHLORIDE 0.9% 100 ML IV SCH ×3 (02:06→17:23)
[2021-05-29] MEDS: CEFAZOLIN/SWI 2gm 2 GM/20 ML SYR IVP SCH ×3 (02:06→17:23)
[2021-05-29] MEDS: HYDROCORTISONE SUC 100 MG INJ IV SCH (02:21)
[2021-05-29] MEDS ORDERED: HYDROCORTISONE SUC 100 MG INJ ONE (02:21)
[2021-05-29 05:10] LABS: Hematocrit 33.4 % (39.6-49.0); Lymphocytes % 10.1 % (15.3-44.8); MPV 6.7 fL (7.6-11.3)
[2021-05-29 05:25] LABS: BUN Blood Urea Nitrogen 19 mg/dL (7-18); Bicarbonate 34 mmol/L (21-32); Glucose Level 123 mg/dL (74-106); Magnesium 2.1 mg/dL (1.8-2.4); Potassium 3.1 mmol/L (3.5-5.1); Sodium Level 137 mmol/L (136-145)
[2021-05-29] MEDS: PROPRANOLOL HCL 10 MG TAB PO SCH ×3 (05:37→21:28)
[2021-05-29] MEDS ORDERED: POTASSIUM 25 MEQ EFFERV TAB PO ONE (05:47)
[2021-05-29] MEDS ORDERED: POTASSIUM 25 MEQ EFFERV TAB ONE (05:53)
[2021-05-29] MEDS ORDERED: KCL 20 MEQ/100 mL IVPB 100 ML IV ONE (05:59)
[2021-05-29] MEDS: KCL 20 MEQ/100 mL IVPB 20 MEQ/100 ML BAG IV SCH ×4 (06:00→21:27)
--- NOTE | 2021-05-29 06:24 | P.PN ---
Date of Service: 05/29/21 Subjective: no acute events stable ROS: 10 point ROS as noted above, otherwise negative Physical exam GEN: Alert, aphasic, nods yes/no, weak voice HEENT: Normal conjunctiva, sclera anicteric CV: Regular rate and rhythm, no edema Pulm: Non-labored respirations on room air ABD: Soft, nontender, nondistended Integumentary: Sacral decubitus ulcer, heel ulcer, dressings in place Problem List MRSA bacteremia Pseudomonas UTI Sepsis secondary to the above CVA with aphasia GERD Gastrostomy tube dependent HTN HLD Chronic heel ulcer with fat layer exposed Sacral decubitus ulcer, stage III Continue IV antibiotics, ID team following Continue local wound care General surgery consulted, s/p I&D Has been tolerating tube feeds Strict glucose control Pain control as needed improving restart home meds, modafinil, anti-hypertensives will need snf antibiotics, wound care Code: full Dispo: awaiting LTAC approval / insurance Social service consulted Time Spent Managing Pts Care (In Minutes): 35
[2021-05-29] MEDS: COLLAGENASE 30 GM OINTMENT TOP SCH (08:35)
[2021-05-29] MEDS: SODIUM HYPOCHLORITE 0.25% 473 ML TOP SCH (08:35)
--- NOTE | 2021-05-29 09:37 | P.PN ---
Subjective Date of Service: 05/29/21 Chief Complaint: Tachyarrhythmia Subjective: Improving Physical Examination - Vital Signs Temperature: 97.0 F Blood Pressure: 177/86 Pulse: 85 Respirations: 20 Pulse Ox (%): 93 - Physical Exam General: Alert, In no apparent distress, Cooperative Integumentary: Other (sacral and foot wound are clean with no infection) - Studies Medications List Reviewed: Yes Assessment And Plan - Current Problems (Diagnosis) (1) Sacral decubitus ulcer, stage III Current Visit: Yes Status: Acute Plan: - wound care to continue per orders daily - pressure reduction - air cast preferred to prevent heel pressure - continue medical management per primary team (2) Chronic heel ulcer with fat layer exposed Current Visit: Yes Status: Acute - Plan -
[2021-05-29 20:28] VITALS: O2SAT 98
[2021-05-29] MEDS ORDERED: TAMSULOSIN 0.4 MG SR CAP PO SCH (21:00)
[2021-05-29] MEDS: ATORVASTATIN 40 MG TAB FT SCH (21:28)
[2021-05-29] MEDS: carvediloL 25 MG TAB FT SCH (21:28)
[2021-05-30] MEDS: Meropenem 1,000 MG in NA CHLORIDE 0.9% 100 ML IV SCH ×3 (00:29→18:41)
[2021-05-30] MEDS: PROPRANOLOL HCL 10 MG TAB PO SCH ×3 (05:00→21:21)
--- NOTE | 2021-05-30 06:26 | P.PN ---
Date of Service: 05/30/21 Subjective: no acute events. awake/alert this morning no complaints tolerating tube feeds ROS: 10 point ROS as noted above, otherwise negative Physical exam GEN: Alert, aphasic, nods yes/no HEENT: Normal conjunctiva, sclera anicteric CV: Regular rate and rhythm, no edema Pulm: Non-labored respirations on room air ABD: Soft, nontender, nondistended Integumentary: Sacral decubitus ulcer, heel ulcer, dressings in place Problem List MRSA bacteremia Pseudomonas UTI Sepsis secondary to the above CVA with aphasia GERD Gastrostomy tube dependent HTN HLD Chronic heel ulcer with fat layer exposed Sacral decubitus ulcer, stage III Continue IV antibiotics, per ID recommendations Continue local wound care General surgery consulted, s/p I&D Has been tolerating tube feeds Strict glucose control Pain control as needed improving restarted home meds, modafinil, anti-hypertensives on 05/29 will need detention antibiotics, wound care Code: full Dispo: awaiting LTAC approval / insurance Social service consulted Time Spent Managing Pts Care (In Minutes): 35
[2021-05-30 08:12] LABS: BUN Blood Urea Nitrogen 23 mg/dL (7-18); Bicarbonate 33 mmol/L (21-32); Glucose Level 117 mg/dL (74-106); Magnesium 2.2 mg/dL (1.8-2.4); Potassium 3.9 mmol/L (3.5-5.1); Sodium Level 138 mmol/L (136-145)
[2021-05-30] MEDS: carvediloL 25 MG TAB FT SCH ×2 (09:03→21:21)
[2021-05-30] MEDS: modafiniL 100 MG TAB PO SCH (09:04)
[2021-05-30] MEDS: AMLODIPINE 10 MG TAB FT SCH (09:04)
[2021-05-30] MEDS: SODIUM HYPOCHLORITE 0.25% 473 ML TOP SCH (09:04)
[2021-05-30] MEDS: COLLAGENASE 30 GM OINTMENT TOP SCH (09:05)
[2021-05-30] MEDS ORDERED: POTASSIUM PHOS 20 MM in NA CHLORIDE 0.9% 500 ML IV ONE (13:00)
[2021-05-30] MEDS: GLUCERNA 1.2 CAL 1,000 ML BOT RTH SCH (18:40)
[2021-05-30] MEDS: ATORVASTATIN 40 MG TAB FT SCH (21:20)
[2021-05-31] MEDS: Meropenem 1,000 MG in NA CHLORIDE 0.9% 100 ML IV SCH ×4 (01:00→17:55)
[2021-05-31 04:55] LABS: BUN Blood Urea Nitrogen 21 mg/dL (7-18); Bicarbonate 31 mmol/L (21-32); Glucose Level 129 mg/dL (74-106); Magnesium 2.1 mg/dL (1.8-2.4); Potassium 3.8 mmol/L (3.5-5.1); Sodium Level 135 mmol/L (136-145)
--- NOTE | 2021-05-31 06:18 | P.PN ---
Date of Service: 05/31/21 Subjective: No acute events overnight denies any new symptoms/concerns ROS: 10 point ROS as noted above, otherwise negative Physical exam GEN: Alert, aphasic, nods yes/no CV: Regular rate and rhythm, no edema Pulm: Non-labored respirations on room air ABD: Soft, nontender, nondistended Integumentary: Sacral decubitus ulcer, heel ulcer, dressings in place Problem List MRSA bacteremia Pseudomonas UTI Sepsis secondary to the above CVA with aphasia GERD Gastrostomy tube dependent HTN HLD Chronic heel ulcer with fat layer exposed Sacral decubitus ulcer, stage III Continue IV antibiotics, per ID recommendations Continue local wound care. s/p I&D by general surgery continue tube feeds Strict glucose control restarted home meds, modafinil, anti-hypertensives on 05/29 improving will need senior living antibiotics, wound care Code: full Dispo: awaiting LTAC approval / insurance Social service consulted Time Spent Managing Pts Care (In Minutes): 35
[2021-05-31] MEDS: PROPRANOLOL HCL 10 MG TAB PO SCH ×3 (06:24→23:27)
[2021-05-31] MEDS ORDERED: KCL 20 MEQ/100 mL IVPB 20 MEQ/100 ML BAG IV SCH (07:00)
[2021-05-31] MEDS: carvediloL 25 MG TAB FT SCH ×2 (10:40→23:28)
[2021-05-31] MEDS: modafiniL 100 MG TAB PO SCH (10:41)
[2021-05-31] MEDS: AMLODIPINE 10 MG TAB FT SCH (10:41)
[2021-05-31] MEDS: SODIUM HYPOCHLORITE 0.25% 473 ML TOP SCH (10:41)
[2021-05-31] MEDS: COLLAGENASE 30 GM OINTMENT TOP SCH (10:41)
[2021-05-31] MEDS: GLUCERNA 1.2 CAL 1,000 ML BOT RTH SCH (13:07)
[2021-05-31] MEDS: ATORVASTATIN 40 MG TAB FT SCH (23:28)
[2021-06-01] MEDS: Meropenem 1,000 MG in NA CHLORIDE 0.9% 100 ML IV SCH ×3 (01:43→16:29)
--- NOTE | 2021-06-01 06:19 | P.PN ---
Date of Service: 06/01/21 Subjective: ROS: 10 point ROS as noted above, otherwise negative Physical exam GEN: Alert, aphasic, nods yes/no CV: Regular rate and rhythm, no edema Pulm: Non-labored respirations on room air ABD: Soft, nontender, nondistended Integumentary: Sacral decubitus ulcer, heel ulcer, dressings in place Problem List MRSA bacteremia Pseudomonas UTI Sepsis secondary to the above CVA with aphasia GERD Gastrostomy tube dependent HTN HLD Chronic heel ulcer with fat layer exposed Sacral decubitus ulcer, stage III Continue IV antibiotics, per ID recommendations Continue local wound care. s/p I&D by general surgery continue tube feeds Strict glucose control restarted home meds, modafinil, anti-hypertensives on 05/29 improving will need jail antibiotics, wound care Code: full Dispo: awaiting LTAC approval / insurance Social service consulted Time Spent Managing Pts Care (In Minutes): 35
[2021-06-01] MEDS: PROPRANOLOL HCL 10 MG TAB PO SCH ×2 (06:30→12:57)
[2021-06-01 06:42] LABS: Hematocrit 33.2 % (39.6-49.0); MPV 7.7 fL (7.6-11.3); RBC Red Blood Cell Count 3.62 M/uL (4.33-5.43)
[2021-06-01 07:01] LABS: BUN Blood Urea Nitrogen 23 mg/dL (7-18); Bicarbonate 29 mmol/L (21-32); Glucose Level 111 mg/dL (74-106); Potassium 3.9 mmol/L (3.5-5.1); Sodium Level 133 mmol/L (136-145)
[2021-06-01] MEDS ORDERED: KCL 20 MEQ/100 mL IVPB 20 MEQ/100 ML BAG IV ONE (09:00)
[2021-06-01] MEDS: modafiniL 100 MG TAB PO SCH ×2 (09:02→09:03)
[2021-06-01] MEDS: AMLODIPINE 10 MG TAB FT SCH (09:02)
[2021-06-01] MEDS: carvediloL 25 MG TAB FT SCH (09:03)
[2021-06-01] MEDS: COLLAGENASE 30 GM OINTMENT TOP SCH (09:04)
[2021-06-01] MEDS: SODIUM HYPOCHLORITE 0.25% 473 ML TOP SCH (09:04)
[2021-06-01] MEDS ORDERED: POTASSIUM CL SA 10 MEQ TAB PO ONE (09:09)
[2021-06-01] MEDS: CEFAZOLIN/SWI 2gm 2 GM/20 ML SYR IV SCH ×2 (09:19→16:29)
--- NOTE | 2021-06-01 11:59 | P.PN ---
Subjective Date of Service: 06/01/21 Chief Complaint: Tachyarrhythmia Patient seen and examined at bedside, no acute events. Physical Examination - Vital Signs Temperature: 97.5 F Blood Pressure: 132/75 Pulse: 81 Respirations: 16 Pulse Ox (%): 98 - Studies Laboratory Last Values WBC 12.90 K/uL (4.3-10.9) H 05/22/21 13:39 RBC 3.56 M/uL (4.33-5.43) L 05/22/21 13:39 Hgb 10.6 g/dL (13.6-17.9) L 05/22/21 13:39 Hct 32.2 % (39.6-49.0) L 05/22/21 13:39 MCV 90.5 fL (80-100) 05/22/21 13:39 MCH 29.9 pg (27.0-35.0) 05/22/21 13:39 MCHC 33.0 g/dL (32.0-36.0) 05/22/21 13:39 RDW 16.8 % (12.1-15.2) H 05/22/21 13:39 Plt Count 521 K/uL (152-406) H D 05/22/21 13:39 MPV 7.0 fL (7.6-11.3) L 05/22/21 13:39 Neutrophils % 84.6 % (41.7-73.7) H 05/22/21 13:39 Lymphocytes % 7.9 % (15.3-44.8) L 05/22/21 13:39 Monocytes % 6.4 % (3.3-12.3) 05/22/21 13:39 Eosinophils % 0.6 % (0-4.4) 05/22/21 13:39 Basophils % 0.5 % (0-1.3) 05/22/21 13:39 Absolute Neutrophils 10.9 K/uL (1.8-8.0) H 05/22/21 13:39 Absolute Lymphocytes 1.0 K/uL (0.7-4.9) 05/22/21 13:39 Absolute Monocytes 0.8 K/uL (0.1-1.3) 05/22/21 13:39 Absolute Eosinophils 0.1 K/uL (0-0.5) 05/22/21 13:39 Absolute Basophils 0.1 K/uL (0-0.5) 05/22/21 13:39 PT 14.0 SECONDS (9.5-12.5) H 05/22/21 13:39 INR 1.21 05/22/21 13:39 Sodium 128 mmol/L (136-145) L 05/22/21 13:39 Potassium 4.3 mmol/L (3.5-5.1) 05/22/21 13:39 Chloride 97 mmol/L (98-107) L 05/22/21 13:39 Carbon Dioxide 24 mmol/L (21-32) 05/22/21 13:39 BUN 18 mg/dL (7-18) 05/22/21 13:39 Creatinine 0.57 mg/dL (0.55-1.3) 05/22/21 13:39 Estimated GFR > 90 mL/min (=/>90) 05/22/21 13:39 Glucose 127 mg/dL (74-106) H 05/22/21 13:39 Lactic Acid 1.0 mmol/L (0.4-2.0) 05/22/21 17:03 Calcium 9.7 mg/dL (8.5-10.1) D 05/22/21 13:39 Magnesium 2.2 mg/dL (1.8-2.4) D 05/22/21 13:39 Total Bilirubin 0.5 mg/dL (0.2-1.0) 05/22/21 13:39 Direct Bilirubin 0.2 mg/dL (0-0.2) 05/22/21 13:39 AST 31 U/L (15-37) 05/22/21 13:39 ALT 57 U/L (12-78) 05/22/21 13:39 Alkaline Phosphatase 157 U/L (45-117) H 05/22/21 13:39 Troponin I High Sens 7.50 pg/mL (<58.9) 05/22/21 13:39 NT-Pro-B Natriuret Pep 112 pg/mL (<125) 05/22/21 13:39 Serum Total Protein 7.6 g/dL (6.4-8.2) 05/22/21 13:39 Albumin 2.0 g/dL (3.4-5.0) L 05/22/21 13:39 Globulin 5.6 g/dL (2.3-3.5) H 05/22/21 13:39 Albumin/Globulin Ratio 0.4 (1.1-1.8) L 05/22/21 13:39 Lipase 126 U/L (73-393) 05/22/21 13:39 Procalcitonin < 0.05 ng/mL (<0.050) 05/22/21 17:03 Medications List Reviewed: Yes Assessment And Plan - Plan Physical Exam: General: Cachectic, Other (AMS) HEENT: Atraumatic, Normocephalic Neck: Supple, 2+ carotid pulse no bruit Respiratory: Clear to auscultation bilaterally, Normal air movement Cardiovascular: Regular rate/rhythm, Normal S1 S2 Gastrointestinal: Normal bowel sounds, Other (PEG tube) Integumentary: Other (right buttock/sacral unstageable wound. Left heel unstageable wound, right heel DTI) Urinary: Fragoso catheter Antibiotics Cefazolin: . restated on 06/01-current Meropenem 05/23current Vancomycin: Assessment/plan Right buttocks/sacrococcygeal unstable decubitus wound -Status post debridement performed on 05/27. Continue wound care per surgical team. -Wound cultures from previous visit obtained on 05/14 grew Pseudomonas and Proteus both sensitive to meropenem. Patient was discharged on 05/21 on IV meropenem and IV cefazolin, meropenem restarted on this admission. -Blood cultures from previous visit obtained on 05/11 grew MSSA with a vancomycin KIMBERLEY greater than 2. Patient was discharged on IV cefazolin with a tentative completion date of 05/29. Vancomycin was started on this admission however due to high KIMBERLEY vancomycin has been discontinued and patient has been restarted on cefazolin. Unfortunately no blood cultures obtained on this admission. Cefazolin restarted due to increasing WBC. -Low air loss mattress placed. Reposition patient in bed every 2 hours during waking hours, avoid direct pressure and offload with wedge pillows. Left heel unstageable pressure ulcer -Status post surgical debridement performed on 05/27. Wound care per surgical team, Continue to offload/float heels. Right heel deep tissue injury -Wound care per surgical team, currently utilizing Santyl. Continue to offload/float heels. Protein caloric malnutrition: Moderate Low albumin, 1.8 g/dl. Patient with PEG tube feedings, recommend nutrition consultation. Adequate nutrition needed for proper wound healing. Anemia Continue to monitor H&H, recommend transfusion if hemoglobin drops low 7.0. -Patient accepted to [facility] in [place], awaiting bed. -Medical management per primary team Continue to monitor CBC and BMP Plan of care discussed with Dr. Manuel Thank you for consultation.
[2021-06-01 16:44] VITALS: BP 121/64; TEMP 97.3
--- NOTE | 2021-06-01 17:56 | P.DS ---
Admission Date: 05/22/21 Discharge Date: 06/01/21 Disposition: [facility] Discharge Condition: GOOD Reason for Admission: Tachyarrhythmia Consultations: Infectious disease General surgery Procedures: Problem List recent hospitalization with MRSA bacteremia, Pseudomonas UTI CVA with aphasia GERD Gastrostomy tube dependent HTN HLD Right buttock/sacrococcygeal unstable decubitus wound Left heel unstageable pressure ulcer Right heel deep tissue injury Protein calorie malnutrition, moderate Anemia Brief History of Present Illness: 65-year-old gentleman came to the hospital after having a [facility]. Patient had multiple unstageable decubitus pressure ulcers on the buttocks and the heels. Patient also had urinary tract infection that grew out MSSA and Pseudomonas. Blood culture were positive for staph aureus. Patient was discharged on meropenem and cefazolin along with wound care to the sacrum and heels. Patient was to continue the antibiotics for bacteremia and wounds. Patient also had PEG tube placed and tube feedings were started. Patient was discharged. Patient was sent to [facility]. The family switched him over to a different facility. When he got there his heart rate was elevated and the family wanted him brought in. The family was upset that the wounds were not healed completely. They are also upset that patient is in the Covid unit. Patient tested positive. At this time, patient will be admitted for further evaluation. Hospital Course: Patient was placed on empiric antibiotics. Infectious disease was reconsulted. General surgery was consulted as well, patient underwent debridement of his ulcers. He had gradual improvement throughout the rest of his hospitalization. Given all of the concurrent issues with the patient, he was transferred to LTAC for continued antibiotics and wound care. Patient has hypokalemia, which delayed surgery. Hospitalization was further prolonged while waiting for LTAC approval/holiday weekend. Vital Signs/Physical Exam: Temp Pulse Resp BP Pulse Ox 97.3 F 89 16 121/64 98 06/01/21 16:00 06/01/21 16:00 06/01/21 16:00 06/01/21 16:00 06/01/21 16:00 Physical exam GEN: Alert, aphasic, nods yes/no appropriately CV: Regular rate and rhythm, no edema Pulm: Non-labored respirations on room air ABD: Soft, nontender, nondistended Integumentary: Sacral decubitus ulcer, heel ulcer, dressings in place Laboratory Data at Discharge: WBC 11.10 K/uL (4.3-10.9) H 06/01/21 05:43 Hgb 11.0 g/dL (13.6-17.9) L 06/01/21 05:43 Hct 33.2 % (39.6-49.0) L 06/01/21 05:43 Plt Count 420 K/uL (152-406) H 06/01/21 05:43 PT 14.0 SECONDS (9.5-12.5) H 05/22/21 13:39 INR 1.21 05/22/21 13:39 Sodium 133 mmol/L (136-145) L 06/01/21 05:43 Potassium 3.9 mmol/L (3.5-5.1) 06/01/21 05:43 BUN 23 mg/dL (7-18) H 06/01/21 05:43 Creatinine 0.54 mg/dL (0.55-1.3) L 06/01/21 05:43 Glucose 111 mg/dL (74-106) H 06/01/21 05:43 Phosphorus 2.0 mg/dL (2.5-4.9) L 05/28/21 06:23 Magnesium 2.1 mg/dL (1.8-2.4) 05/31/21 03:40 Total Bilirubin 0.3 mg/dL (0.2-1.0) 05/25/21 08:35 AST 24 U/L (15-37) 05/25/21 08:35 ALT 28 U/L (12-78) 05/25/21 08:35 Alkaline Phosphatase 113 U/L (45-117) 05/25/21 08:35 Lipase 126 U/L (73-393) 05/22/21 13:39 Home Medications: Amlodipine [Norvasc*] 1 tab FT DAILY 05/17/21 Ascorbate Calcium [Vitamin C] 1 tab FT DAILY 05/17/21 Atorvastatin Calcium [Lipitor] 1 tab FT BEDTIME 05/17/21 Carvedilol [Coreg] 1 tab FT BID 05/17/21 Cholecalciferol (Vitamin D3) [Vitamin D3] 1 cap FT DAILY 05/17/21 Docusate Sodium [Colace] 10 ml FT DAILY 05/17/21 Doxazosin Mesylate [Cardura] 1 tab FT DAILY 05/17/21 Famotidine [Pepcid] 1 tab FT DAILY 05/17/21 Fluoxetine HCl 1 tab FT DAILY 05/17/21 Pantoprazole Granules [Protonix Granules*] 1 packet FT BID 05/17/21 Polyethylene Glycol 3350 [Miralax] 1 packet FT DAILY PRN 05/17/21 Potassium Chloride 15 ml FT BID 05/17/21 Tamsulosin HCl [Flomax] 1 cap FT BID 05/17/21 Zinc 1 tab FT DAILY 05/17/21 modafiniL [Provigil*] 1 tab FT DAILY 05/17/21 Cefazolin Sodium in 0.9 % NaCl [Cefazolin 2 G/100 ml-0.9% NaCl] 2 gm IV Q8H #21 plast..bag 05/21/21 Glucerna 1.2 Mendel 1 bot RTH CONT #30 bot 05/21/21 Medihoney [Medihoney Woundcare Gel*] 1 appl TOP DAILY #1 tube 05/21/21 Meropenem [Merrem 1 GM/100 ML NS IVPB] 1 gm IV Q8H #21 bag 05/21/21 Sodium Chloride Tab [Sodium Chloride*] 2 gm FT BIDWM #60 tab 05/21/21 Physician Discharge Instructions: PROBLEM: Osteomyelitis GOAL: Clear understanding of disease process INSTRUCTIONS: Pt is being discharged to [facility]. Diet: Activity: no pressure to surgical wounds DME DME: Date Ordered: Name of Company: [facility] Services Needed: LTAC Name of Company: [facility] Date or Referral: IMMUNIZATION Influenza Vaccine Indicated: No Influenza Vaccine Given: Date Given: Pneumonia Vaccine Indicated: No Pneumonia Vaccine Given: Date Given: Activity: no pressure to surgical wounds Followup: Santiago Cooper MD [ACTIVE - CAN ADMIT] - NONE,NONE [Primary Care Provider] - Time spent managing pt's care (in minutes): 45
== END 2021-06-01 20:00 | DRG 853 ==
LOC: ER 11:49 → ERHOLD 20:24 → 4TH 23:00 → 2ND 05-23 16:18
PROVIDERS: ADMIT Hospitalist; ATTEND Hospitalist
PROC: 0JDR0ZZ Extraction of Left Foot Subcutaneous Tissue and Fascia, Open Approach (ICD-10-PCS; 2021-05-27)
PROC: 0JD70ZZ Extraction of Back Subcutaneous Tissue and Fascia, Open Approach (ICD-10-PCS; principal; 2021-05-27 09:00)
DX: A41.02 Sepsis due to Methicillin resistant Staphylococcus aureus (principal); L89.153 Pressure ulcer of sacral region, stage 3; U07.1 COVID-19; N39.0 Urinary tract infection, site not specified; E44.0 Moderate protein-calorie malnutrition; R64 Cachexia; I69.359 Hemiplegia and hemiparesis following cerebral infarction affecting unspecified side; B96.5 Pseudomonas (aeruginosa) (mallei) (pseudomallei) as the cause of diseases classified elsewhere; I69.320 Aphasia following cerebral infarction; K21.9 Gastro-esophageal reflux disease without esophagitis; I10 Essential (primary) hypertension; E78.5 Hyperlipidemia, unspecified; Z68.28 Body mass index [BMI] 28.0-28.9, adult; D64.9 Anemia, unspecified; E87.6 Hypokalemia; L89.616 Pressure-induced deep tissue damage of right heel; R01.1 Cardiac murmur, unspecified; I69.391 Dysphagia following cerebral infarction; L89.620 Pressure ulcer of left heel, unstageable; R13.10 Dysphagia, unspecified; Z93.1 Gastrostomy status; Z87.891 Personal history of nicotine dependence
CPT/HCPCS: 0241U; 36415; 71045; 80048; 80053; 80069; 80076; 82947; 83605; 83690; 83735; 83880; 84132; 84145; 84439; 84443; 84484; 85025; 85027; 85610; 88304; 93005; 96374; 99285; J0690; J1100; J1720; J2185; J2405; J2543; J2704; J3010; J3370; J3475; J3480; J3590; J7030; J7040; J7050

== ENCOUNTER 2021-06-25 08:54 | Inpatient (IN) | payer BC ==
--- OUTSIDE RECORDS SUMMARY | 2021-06-25 09:15 | XMS REPORT | Continuity of Care Document ---
:1955 Author Organization [facility] t Address [address] [place] [address] Care Team Providers Name Role Phone DR DOV Primary Care Physician Unavailable FANY SANTAMARIA Attending Clinician Unavailable Fany Santamaria MD Attending Clinician Petros Peck DO Attending Clinician Danette Bingham Attending Clinician Roger BELLO Attending Clinician Thomas Fajardo MD Attending Clinician Michael BELLO Attending Clinician Yenifer BELLO Attending Clinician Maura BELLO Attending Clinician Sidra Fowler CRNA Attending Clinician Singer SHEPHERD Attending Clinician Doctor Unassigned, Name Attending Clinician Unavailable Herminio BELLO Attending Clinician [facility] Attending Clinician Unavailable Juli Scott MD Attending Clinician Skylar BELLO Attending Clinician Kamaljit SCHERER, M Attending Clinician Meseret Lara MD Attending Clinician Ramiro Lu CRNA Attending Clinician DR DOV Attending Clinician Unavailable LOLY Attending Clinician Unavailable DR DOV Attending Clinician Unavailable MICHAEL Admitting Clinician Unavailable Michael BELLO Admitting Clinician DR DOV Admitting Clinician Unavailable LOLY Admitting Clinician Unavailable Payers Payer Name Policy Type Policy Number Effective Date Expiration Date S ource HIM BCBS BLUE [id number] 2020 ADVANTAGE HMO 00:00:00 [id number] 1959 00:00:00 Problems Condition Condition Condition Status Onset Resolution Last Treating Co mments Source Name Details Category Date Date Treatment Clinician Date Stroke Stroke Disease Active 2020-04 Univers determined determined 2-15 it y of by by 00:00: [place] clinical clinical 00 Medica l assessment assessment Br anch Right leg Right leg Disease Active 2020-04 Uni vers weakness weakness 2-11 ity of 00:00: [place] 00 Medical Branch E44.0 E44.0 Disease Active 2020-04 Univers Moderate Moderate 2-06 ity of protein protein 00:00: [place] calorie calorie 00 Medical malnutriti malnutriti Br anch on on Coffee Coffee Disease Active 2020-04 Overview: [facility] ground ground 2-05 Formattin ity of emesis emesis 00:00: g of this 00 note Medical might be Branch different from the original. 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 Family History Family Member Diagnosis Comments Start Date Stop Date Source Natural father Cancer [facility] Natural father High cholesterol Univ ersity [facility] Natural father Hypertension Universi ty of [facility] Natural mother Cancer [facility] Natural mother Stroke [facility] Social History Social Habit Start Date Stop Date Quantity Comments Source History of tobacco Cigarette Smoker [facility] Exposure to Unable to assess Univers ity of SARS-CoV-2 (event) [facility] History [facility] o f Alcohol Frequency [facility] Branch History [facility] o f Alcohol Std Drinks [facility] History [facility] o f Alcohol Binge [facility] Alcohol intake 2021-03-31 2021-03-31 Ex-drinker [facility] 00:00:00 00:00:00 (finding) [facility] Education 2021-03-15 2021-03-15 21 [place] of 00:00:00 00:00:00 [facility] Alcohol Comment 2021-03-02 2021-03-02 Socially Universit y of 00:00:00 00:00:00 [facility] Cigarettes smoked 2021-02-09 2021-02-09 Univers ity of current (pack per 00:00:00 00:00:00 [facility] ) - Reported Branch Cigarette 2021-02-09 2021-02-09 University of pack-years 00:00:00 00:00:00 [facility] Tobacco use and 2021-02-09 2021-02-09 Former user Universi ty of exposure 00:00:00 00:00:00 [facility] Sex [birth year] Universit y of 00:00:00 00:00:00 [facility] Smoking Status Start Date Stop Date Source Never smoker [facility] (LUF/SOUTH/SA) Former smoker 2021-02-09 00:00:00 2021-02-09 00:00:00 Universi ty of [place] [facility] Medications Ordered Filled Start Stop Current Ordering Indication Dosage Frequency Signature Comments Components Source Medication Medication Date Date Medication? Clinician (SIG) Name Name ascorbic 2020-04 Yes 500mg Take 500 Univ ers acid, 2-28 mg by ity of vitamin C, 17:17: mouth. [place] 500 mg 40 Medical tablet Branch cholecalcif 2020-04 Yes 5000U Take 5,000 Univers boy, 2-28 Units by ity of vitamin D3, 17:17: [place]. [place] 25 mcg 40 Medical (1,000 Branch unit) tablet ascorbic 2020-04 Yes 500mg Take 500 Univ ers acid, 2-28 mg by ity of vitamin C, 17:17: mouth. [place] 500 mg 40 Medical tablet Branch cholecalcif 2020-04 Yes 5000U Take 5,000 Univers boy, 2-28 Units by ity of vitamin D3, 17:17: [place]. [place] 25 mcg 40 Medical (1,000 Branch unit) tablet ascorbic 2020-04 Yes 500mg Take 500 Univ ers acid, 2-28 mg by ity of vitamin C, 17:17: mouth. [place] 500 mg 40 Medical tablet Branch cholecalcif 2020-04 Yes 5000U Take 5,000 Univers boy, 2-28 Units by ity of vitamin D3, 17:17: mouth. [place] 25 mcg 40 Medical (1,000 Branch unit) tablet ascorbic 2020-04 Yes 500mg Take 500 Univ ers acid, 2-28 mg by ity of vitamin C, 17:17: mouth. [place] 500 mg 40 Medical tablet Branch cholecalcif 2020-04 Yes 5000U Take 5,000 Univers boy, 2-28 Units by ity of vitamin D3, 17:17: [place]. [place] 25 mcg 40 Medical (1,000 Branch unit) tablet pantoprazol 2020-04 Yes [id number] 40mg Take 20 mL Univers e 2 mg/mL 2-28 through ity of oral 00:00: enteral [place] suspension 00 tube 2 Medical (two) Branch times daily. pantoprazol 2020-04 Yes [id number] 40mg Take 20 mL Univers e 2 mg/mL 2-28 through ity of oral 00:00: enteral [place] suspension 00 tube 2 Medical (two) Branch times daily. pantoprazol 2020-04 Yes [id number] 40mg Take 20 mL Univers e 2 mg/mL 2-28 through ity of oral 00:00: enteral [place] suspension 00 tube 2 Medical (two) Branch times daily. amLODIPine 2020-04- Yes [id number] 10mg Take 1 Univers 10 mg 2-28 12-24 tablet ity of tablet 00:00: 05:59 through [place] 00 :00 enteral Medical tube daily Branch for 360 days. polyethylen 2020-04- Yes [id number] 17g Take 1 Univers e glycol 2-28 12-24 Packet ity of 3350 17 00:00: 05:59 through [place] gram powder 00 :00 enteral Medic al tube daily Branch for 360 days. modafiniL 2020-04- Yes [id number] 100mg Take 1 Univers 100 mg 2-28 12-24 tablet ity of tablet 00:00: 05:59 through [place] 00 :00 enteral Medical tube daily Branch for 360 days. FLUoxetine 2020-04- Yes [id number] 10mg Take 2.5 Univers 20 mg/5 mL 2-28 12-24 mL through it y of (4 mg/mL) 00:00: 05:59 [place]eral [place] solution 00 :00 tube daily Medic al for 360 Branch days. docusate 50 2020-04- Yes [id number] 100mg Take 10 mL Univers mg/5 mL 2-28 12-24 through ity of solution 00:00: 05:59 enteral [place] 00 :00 tube daily Medical for 360 Branch days. amLODIPine 2020-04- Yes [id number] 10mg Take 1 Univers 10 mg 2-28 12-24 tablet ity of tablet 00:00: 05:59 through [place] 00 :00 enteral Medical tube daily Branch for 360 days. polyethylen 2020-04- Yes [id number] 17g Take 1 Univers e glycol 2-28 12-24 Packet ity of 3350 17 00:00: 05:59 through [place] gram powder 00 :00 enteral Medic al tube daily Branch for 360 days. modafiniL 2020-04- Yes [id number] 100mg Take 1 Univers 100 mg 2-28 12-24 tablet ity of tablet 00:00: 05:59 through [place] 00 :00 enteral Medical tube daily Branch for 360 days. FLUoxetine 2020-04- Yes [id number] 10mg Take 2.5 Univers 20 mg/5 mL 2-28 12-24 mL through it y of (4 mg/mL) 00:00: 05:59 [place]eral [place] solution 00 :00 tube daily Medic al for 360 Branch days. docusate 50 2020-04- Yes [id number] 100mg Take 10 mL Univers mg/5 mL 2- 12-24 through ity of solution 00:00: 05:59 enteral [place] 00 :00 tube daily Medical for 360 Branch days. amLODIPine 2020-04- Yes [id number] 10mg Take 1 Univers 10 mg 2-28 12-24 tablet ity of tablet 00:00: 05:59 through [place] 00 :00 enteral Medical tube daily Branch for 360 days. polyethylen 2020-04- Yes [id number] 17g Take 1 Univers e glycol - 12-24 Packet ity of 3350 17 00:00: 05:59 through [place] gram powder 00 :00 enteral Medic al tube daily Branch for 360 days. modafiniL 2020-04- Yes [id number] 100mg Take 1 Univers 100 mg 2- 12-24 tablet ity of tablet 00:00: 05:59 through [place] 00 :00 enteral Medical tube daily Branch for 360 days. FLUoxetine 2020-04- Yes [id number] 10mg Take 2.5 Univers 20 mg/5 mL 2-28 12-24 mL through it y of (4 mg/mL) 00:00: 05:59 [place]eral [place] solution 00 :00 tube daily Medic al for 360 Branch days. docusate 50 2020-04- Yes [id number] 100mg Take 10 mL Univers mg/5 mL 2-28 12-24 through ity of solution 00:00: 05:59 enteral [place] 00 :00 tube daily Medical for 360 Branch days. pantoprazol 2020-04- No [id number] 40mg Take 20 mL Univers e 2 mg/mL 2-28 12-28 through ity of oral 00:00: 00:00 enteral [place] suspension 00 :00 tube 2 Medical (two) Branch times daily. amLODIPine 2020-04- No 10mg Take 10 mg Univers 10 mg - 12- by mouth. ity of tablet 13:44: 00:00 [place] 38 :00 Medical Branch chlorthalid 2020-04- No 25mg Take 25 mg Univers one 25 mg - 12- by mouth. ity of tablet 13:44: 00:00 [place] 38 :00 Medical Branch metformin 2020-04- No 750mg Take 750 Un dariela ER 750 mg 2-27 12-27 mg by ity of 24 hr 13:44: 00:00 mouth. [place] tablet 38 :00 Medical Branch clopidogreL 2020-04- No 75mg Take 75 mg Univers 75 mg -06 04- by mouth. ity of tablet 13:44: 00:00 [place] 38 :00 [facility] Branch carvediloL 2020-04- No 25mg Take 25 mg Univers (COREG) 25 06-07- by mouth 2 it y of mg tablet 13:44: 00:00 (two) [place] 37 :00 times Medical daily with Branch meals. atorvastati 2020-04- Yes [id number] 40mg Take 1 Univers n 40 mg 06-07- tablet ity of tablet 00:00: 05:59 through [place] 00 :00 enteral Medical tube at [place] bedtime for 360 days. carvedilol 2020-04- Yes [id number] 25mg Take 20 mL Univers 1.25 mg/mL 06-07 through ity o f oral 00:00: 05:59 enteral [place] suspension 00 :00 tube 2 Medical (two) Branch times daily with meals for 360 days. ticagrelor 2020-04- Yes [id number] 90mg Take 1 Univers 90 mg 06-07- tablet ity of tablet 00:00: 05:59 through [place] 00 :00 enteral Medical tube 2 Branch (two) times daily for 360 days. tamsulosin 2020-04- Yes [id number] .4mg Take 1 Univers 0.4 mg 24 06-07- capsule by ity of hr capsule 00:00: 05:59 mouth 2 [place] 00 :00 (two) Medical times Branch daily for 360 days. KCL 20 2020-04- Yes [id number] 20meq Take 15 mL Univers mEq/15 mL - 12-23 through ity of solution 00:00: 05:59 enteral [place] 00 :00 tube 2 Medical (two) Branch times daily for 360 days. atorvastati 2020-04- Yes [id number] 40mg Take 1 Univers n 40 mg 2-27 12-23 tablet ity of tablet 00:00: 05:59 through [place] 00 :00 enteral Medical tube at Branch bedtime for 360 days. carvedilol 2020-04- Yes [id number] 25mg Take 20 mL Univers 1.25 mg/mL 2- 12-23 through ity o f oral 00:00: 05:59 enteral [place] suspension 00 :00 tube 2 Medical (two) Branch times daily with meals for 360 days. ticagrelor 2020-04- Yes [id number] 90mg Take 1 Univers 90 mg 2- 12-23 tablet ity of tablet 00:00: 05:59 through [place] 00 :00 enteral Medical tube 2 Branch (two) times daily for 360 days. tamsulosin 2020-04- Yes [id number] .4mg Take 1 Univers 0.4 mg 24 -04-02 capsule by ity of hr capsule 00:00: 05:59 mouth 2 [place] 00 :00 (two) Medical times Branch daily for 360 days. KCL 20 2020-04- Yes [id number] 20meq Take 15 mL Univers mEq/15 mL 2- 12- through ity of solution 00:00: 05:59 enteral [place] 00 :00 tube 2 Medical (two) Branch times daily for 360 days. atorvastati 2020-04- Yes [id number] 40mg Take 1 Univers n 40 mg 2- 12-23 tablet ity of tablet 00:00: 05:59 through [place] 00 :00 enteral Medical tube at Branch bedtime for 360 days. carvedilol 2020-04- Yes [id number] 25mg Take 20 mL Univers 1.25 mg/mL 2- 12-23 through ity o f oral 00:00: 05:59 enteral [place] suspension 00 :00 tube 2 Medical (two) Branch times daily with meals for 360 days. ticagrelor 2020-04- Yes [id number] 90mg Take 1 Univers 90 mg 2-27 12-23 tablet ity of tablet 00:00: 05:59 through [place] 00 :00 enteral Medical tube 2 Branch (two) times daily for 360 days. tamsulosin 2020-04- Yes [id number] .4mg Take 1 Univers 0.4 mg 24 06-07 capsule by ity of hr capsule 00:00: 05:59 mouth 2 [place] 00 :00 (two) Medical times Branch daily for 360 days. KCL 20 2020-04- Yes [id number] 20meq Take 15 mL Univers mEq/15 mL 06-07 through ity of solution 00:00: 05:59 enteral [place] 00 :00 tube 2 Medical (two) Branch times daily for 360 days. pantoprazol 2020-04- No [id number] 40mg Take 20 mL Univers e 2 [...] First dose [place] mg 00 on [facility] Medical 04/02/21 Branch at 2000, Until Discontinu [...] Tue03/31/21 at 0900, Until Discontinu ed, Routine
hotel staff member approving Non-formul hank medication : JIA SANTAMARIA RA
R dwight for non-formul hank use: SPECIFIC INDICATION FOR NONFORMULA RY PRODUCT modafiniL 2020-04 Yes 100mg 100 mg, Univ ers (PROVIGIL) 2- Enteral, ity o f tablet 100 15:00: DAILY, [place] mg 00 First dose Medical (after Branch last modificati on) on Tue03/31/21 at 0900, Until Discontinu ed, Routine
hotel staff member approving Non-formul hank medication : JIA SANTAMARIA RA
R dwight for non-formul hank use: SPECIFIC INDICATION FOR NONFORMULA RY PRODUCT magnesium 2020-04 No 2g 2 g, IV Univ ers sulfate in 05-31 Piggyback, it y of water 2 14:00: 13:35 ONCE, 1 [place] gram/50 mL 00 :00 dose, On Medic al (4 %) Mon Branch infusion 2 03/30/21 g at 0800, Routine carvediloL 2020-04 Yes 25mg Take 25 mg U nivers (COREG) 25 2-20 by mouth 2 ity of mg tablet 13:14: (two) [place] 23 times Medical daily with Branch meals. NaCl 0.9% 2020-04 Yes IV Univers (NS) 1000 2-19 Infusion, ity o f mL + KCL 20 15:45: at 100 [place] mEq 00 mL/hr, Medical CONTINUOUS Branch , Starting on Tue03/29/21 at 0945, Until Discontinu ed, Routine NaCl 0.9% 2020-04 Yes IV Univers (NS) 1000 2-19 Infusion, ity o f mL + KCL 20 15:45: at 100 [place] mEq 00 mL/hr, Medical CONTINUOUS Branch , Starting on Tue03/29/21 at 0945, Until Discontinu ed, Routine iron 2020-04 No 1000mg 1,000 mg, Unive rs dextran 2-19 12-19 IV ity of (INFED) 14:45: 19:30 Infusion, [place] 1,000 mg in 00 :00 ONCE, 1 Medic al NaCl 0.9% dose, On Branch (NS) 500 mL Sun IV infusion 03/29/21 at 0845, Administer over 1.5 Hours, 500 mL pantoprazol 2020-04 Yes 8mg/h 8 mg/hr Un dariela e 05-29 (50 ity of (PROTONIX) 05:00: mL/hr), IV [...] infusion on Tue03/27/21 at 2300 NaCl 0.9% 2020-04- No 500mL at 999 Univ ers (NS) [...] 2100, Until Discontinu ed iopamidol 2020-04- No [id number] 90mL 90 mL, Univers (ISOVUE 05-28 Intravenou ity o f 300-500 mL) 22:00: 20:07 s, ONCE, 1 [place] injection 00 :00 dose, On Medica l 90 mL Fri Branch 03/27/21 at 1600, Routine famotidine 2020-04 No 40mg 40 mg, IV U nivers (PEPCID) 40 05-27 Piggyback, i ty of mg in NaCl 20:30: 16:03 Q24H, [place] 0.9% (NS) 00 :11 First dose Medi jaspal infusion on [facility] Branch 03/26/21 at 1430, Until Discontinu ed, Administer over 30 Minutes, 100 mL glycerin/mi 2020-04 No 225mL 225 mL, U nivers neral oil 05-27- Rectal, ity of (AGLO 20:30: 21:32 ONCE, 1 [place] ENEMA) 00 :00 dose, On Medical (COMPOUNDED [facility] ) Enem 225 03/26/21 mL at 1430, Routine FLUoxetine 2020-04 Yes 10mg 10 mg, Unive rs (PROZAC) 20 2-16 Enteral, ity of mg/5 mL (4 15:00: DAILY, [place] mg/mL) 00 First dose Medical solution 10 (after Branch mg last modificati on) on Evi 03/26/21 at 0900, Until Discontinu ed, Routine FLUoxetine 2020-04 Yes 10mg 10 mg, Unive rs (PROZAC) 20 -16 Enteral, ity of mg/5 mL (4 15:00: DAILY, [place] mg/mL) 00 First dose Medical solution 10 (after Branch mg last modificati on) on Tue03/26/21 at 0900, Until Discontinu ed, Routine clopidogreL 2020-04 No 75mg 75 mg, Uni vers (PLAVIX) 05-27-16 Enteral, ity of tablet 75 15:00: 20:56 DAILY, [place] mg 00 :58 First dose Medical (after Branch last modificati on) on Evi 03/26/21 at 0900, Until Discontinu ed, Routine tamsulosin 2020-04 Yes .4mg 0.4 mg, Univ ers (FLOMAX) 216 Oral, BID, ity o f capsule 0.4 [...] Tue03/25/21 at 1999, Until Discontinu ed, Routine tamsulosin 2020-04 Yes [...] at 1999, Until Discontinu ed, Routine gadoteridol 2020-04 No [id number] .2mL/kg 14.5 mL Univers (PROHANCE-1 2-15 12-15 [...] 2020-04- No 81mg 81 mg, Univers chewable 05-25-23 Enteral, ity of tablet 81 15:00: 21:08 [...] 20meq 20 mEq, Univer s mEq/15 mL 05-25 12-15 Oral, BID, ity of solution 20 02:00: 21:57 First dose [place] mEq 00 :56 on Tue13/21 Branch at 2000, Until Discontinu ed, Routine carvedilol 2020-04 Yes 25mg 25 mg, Unive rs (COREG) 2-13 Enteral, ity of 1.25 mg/mL 23:00: BID MEALS, [place] oral 00 First dose Medical suspension on [facility] Branch 25 mg 03/23/21 at 1700, Until Discontinu ed, Routine carvedilol 2020-04 Yes 25mg 25 mg, Unive rs (COREG) 2-13 Enteral, ity of 1.25 mg/mL 23:00: BID MEALS, [place] oral 00 First dose Medical suspension on [facility] Branch 25 mg 03/23/21 at 1700, Until Discontinu ed, Routine acetaminoph 2020-04 Yes 650mg 650 mg, Un dariela en 2-13 Enteral, ity of (TYLENOL) 21:10: Q6HPRN, [place] tablet 650 48 Starting Medic al mg on [facility] Branch 03/23/21 at 1510, Until Discontinu ed, Routine, Pain (scale 1-3) acetaminoph 2020-04 Yes 650mg 650 mg, Un dariela en - Enteral, ity of (TYLENOL) 21:10: Q6HPRN, [place] tablet 650 48 Starting Medic al mg on [facility] Branch 03/23/21 at 1510, Until Discontinu ed, Routine, Pain (scale 1-3) sulfur 2020-04- No [id number] 5mL 5 mL, Univ ers hexafluorid 05-24 Intravenou i ty of e microsphr 18:00: 16:38 s, ONCE, 1 [place] (LUMASON) 00 :00 dose, On Medica l injection 5 [facility] Branch mL 03/23/21 at 1200, Routine
hotel staff member approving Restricted medication : EARL CORBIN Saline 2020-04- No [id number] 6mL 6 mL, Univ ers Bubble 05-24- Injection, ity of Study 17:57: 22:00 SEE-INSTRU [place] 36 :25 CTIONS, Medical Starting Branch on Tue03/23/21 at 1157, Until Tue03/30/21 at 1600, Routine carvediloL 2020-04 Yes 25mg Take 25 mg U nivers (COREG) 25 2-12 by mouth 2 ity of mg tablet 21:38: (two) [place] 37 times Medical daily with Branch meals. iopamidol 2020-04- No [id number] 80mL 80 mL, Univers (ISOVUE 05-23 [id number] Intravenou ity of 370-500 mL) 17:30: 17:30 s, ONCE, 1 [place] injection 00 :00 dose, On Medica l 80 mL Sun Branch 03/22/21 at 1130, Routine magnesium 2020-04- No [...] (after Medical last Branch modificati on) on 03/16/21 at 2000, Until Discontinu ed, Routine Sliding 2020-04 Yes Subcutaneo [facility] ers Scale 2-06 us, TIDAC, ity of Insulin-Reg 22:30: First dose [place] ular + Fsbg 00 on Mon Medica l Testing 03/16/21 at Branch 1630, Until Discontinu ed, Routine Sliding 2020-04 Yes Subcutaneo [facility] ers Scale 2-06 us, TIDAC, ity of Insulin-Reg 22:30: First dose [place] ular + Fsbg 00 on Mon Medica l Testing 03/16/21 at Branch 1630, Until Discontinu ed, Routine amLODIPine 2020-04- No 10mg 10 mg, Univ ers (NORVASC) 05-17 Oral, ity of tablet 10 21:30: 21:11 DAILY, [place] mg 00 :06 First dose Medical on Mon Branch 03/16/21 at 1530, Until Discontinu ed, Routine KCL 2020-04- No 40meq 40 mEq, Univers (KLOR-CON 05-17 Oral, ity of M20) tablet 21:15: 21:41 ONCE, 1 [place] 40 mEq 00 :00 dose, On Medical [facility] 03/16/21 at 1515, Routine polyethylen 2020-04 17g 17 g, Univ ers e glycol 05-17 Oral, ity of 3350 powder 18:00: 21:11 DAILY, [place] 17 g 00 :06 First dose Medical on [facility] 03/16/21 at 1200, Until Discontinu ed, Routine glucagon 2020-04 Yes 1mg 1 mg, Univers (GLUCAGEN 05-17 Intramuscu ity of DIAGNOSTIC 17:50: lar, PRN, [place] KIT) 18 Starting Medical injection 1 on [facility] 03/16/21 at 1150, Until Discontinu ed, RODRIGO, Blood Glucose < or = 70 mg/dL and patient is unable to swallow or has mental changes. dextrose 50 2020-04 Yes 25mL 25 mL, Univ ers % in water 05-17 Slow IV ity of (D50W) 17:50: Push, PRN, [place] injection 18 Starting Medica l 25 mL on [facility] 03/16/21 at 1150, Until Discontinu ed, RODRIGO, Blood Glucose < or = 70 mg/dL and patient is unable to swallow or has mental status changes. glucagon 2020-04 Yes 1mg 1 mg, Univers (GLUCAGEN 05-17 Intramuscu ity of DIAGNOSTIC 17:50: lar, PRN, [place] KIT) 18 Starting Medical injection 1 on [facility] 03/16/21 at 1150, Until Discontinu ed, RODRIGO, Blood Glucose < or = 70 mg/dL and patient is unable to swallow or has mental changes. dextrose 50 2020-04 Yes 25mL 25 mL, Univ ers % in water - Slow IV ity of (D50W) 17:50: Push, PRN, [place] injection 18 Starting Medica l 25 mL on [facility] 03/16/21 at 1150, Until Discontinu ed, [...] IV Push, ity of (PF)) 15:26: Q6HPRN, [place] injection 4 25 Starting Medi jaspal mg on [facility] 03/16/21 at 0926, Until Discontinu ed, Routine, Nausea and Vomiting (N/V) ondansetron 2020-04 Yes 4mg 4 mg, Slow Univers (ZOFRAN 2-06 IV Push, ity of (PF)) 15:26: Q6HPRN, [place] injection 4 25 Starting Medi jaspal mg on [facility] 03/16/21 at 0926, Until Discontinu ed, Routine, Nausea and Vomiting (N/V) clopidogreL 2020-04 No 75mg 75 mg, Uni vers (PLAVIX) 05-17-15 Oral, ity of tablet 75 15:00: 21:57 DAILY, [place] mg 00 :56 First dose Medical on [facility] 03/16/21 at 0900, Until Discontinu ed, Routine aspirin 2020-04 No 81mg 81 mg, Univers chewable 05-17-13 Oral, ity of tablet 81 15:00: 21:11 DAILY, [place] mg 00 :06 First dose Medical on [facility] 03/16/21 at 0900, Until Discontinu ed, Routine magnesium 2020-04 No 400mg 400 mg, Uni vers oxide 05-17-08 Oral, ity of (MAG-OX 15:00: 14:45 DAILY, [place] 400) tablet 00 :27 First dose Me dical 400 mg on [facility] 03/16/21 at 0900, Until Discontinu ed, Routine docusate 2020-04 No 100mg 100 mg, Univ ers (COLACE) 05-17 12-14 Oral, BID, ity of capsule 100 14:00: 04:23 First dose [place] mg 00 :18 on [facility] 03/16/21 at Branch 0800, Until Discontinu ed, Routine polyethylen 2020-04 No 17g 17 g, Univ ers e glycol 05-17 Oral, ity of 3350 powder 10:30: 11:12 ONCE, 1 [place] 17 g 00 :00 dose, On Medical Mon Branch 03/16/21 at 0445, Routine cefTRIAXone 2020-04- No 1000mg 1,000 mg, Univers (ROCEPHIN) 05-17-09 IV ity of 1,000 mg in 07:30: 19:34 Piggyback, [place] NaCl 0.9% 00 :09 Q24H ABX, Medic al (NS) 50 mL First dose [place] [facility] MINI-BAG on [facility] 03/16/21 at 0130, Until Discontinu ed, Administer over 30 Minutes, 50 mL
Reas on for Anti-Infec tive: Empiric Therapy for Suspected Infection< br>Empiric Therapy Site: Blood
D uration of therapy: 7 days NaCl 0.9% 2020-04- No IV Univers (NS) 1000 05-17 Infusion, ity of mL + KCL 20 06:15: 15[place]32 [place] m[place] 00 :30 mL/hr, Medical [facility] Branch , Starting on [facility] 03/16/21 at 0015, Until [place] 03/29/21 at 0932, Routine iohexol 2020-04- No [id number] 120mL 120 mL, Univers (OMNIPAQUE 05-17 Intravenou it y of 350 04:45: 04:19 s, ONCE, 1 [place] BULK-100 00 :00 dose, On [facility]) [facility] injection 03/15/21 at 120 mL 2245, Routine atorvastati 2020-04- No 40mg 40 mg, Uni vers n (LIPITOR) 05-17 12-13 Oral, QHS, i ty of tablet 40 03:00: 21:11 [place] dose [place] mg 00 :06 on [facility] 03/15/21 at [place] 2100, Until Discontinu ed, Routine tamsulosin 2020-04- No .4mg 0.4 mg, Uni vers (FLOMAX) 05-17 12-15 Oral, BID, ity of capsule 0.4 02:45: 21:57 First dose [place] mg 00 :56 on [facility] 03/15/21 at Branch 204, Until Discontinu ed, Routine enoxaparin 2020-04- No 30mg 30 mg, Univ ers (LOVENOX) 05-16 Subcutaneo ity of injection 23:00: 22:00 us, DAILY, [place] 30 mg 00 :14 First dose Medical on [facility] 03/15/21 at 1700, Until Discontinu ed, Routine carvediloL 2020-04- No 25mg 25 mg, Univ ers (COREG) 05-16 Oral, BID ity of tablet 25 23:00: 21:11 MEALS, [place] mg 00 :05 First dose Medical on [facility] 03/15/21 at 1700, Until Discontinu ed, Routine NaCl 0.9% 2020-04 No IV Univers (NS) 1000 05-16- Infusion, ity of mL + KCL 20 22:00: 06:13 [place] 80 [place] mEq 00 :49 mL/hr, Medical [facility] , Starting on 03/15/21 at 1600, Until 03/16/21 at 0013, Routine Potassium 2020-04 No 40meq 40 mEq, Uni vers Bicarb-Citr 05-16 Oral, ity of ic Acid 20:45: 19:42 ONCE, 1 [place] (EFFER-K) 00 :00 dose, On Medica l effervescen [facility] t tablet 40 03/15/21 at mEq 1445, Routine magnesium 2020-04- No 2g 2 g, IV Univ ers sulfate in 05-16- Piggyback, it y of water 2 20:00: 19:13 ONCE, 1 [place] gram/50 mL 00 :00 dose, On Medic al (4 %) [facility] infusion 2 03/15/21 at g 1400, Routine amLODIPine 2020-04 Yes 10mg Take 10 mg U nivers 10 mg 2-05 by mouth. ity of tablet 16:26: [place] 38 [facility] ascorbic 2020-04 Yes 500mg Take 500 Univ ers acid, 2-05 mg by ity of vitamin C, 16:26: mouth. [place] 500 mg 38 [facility] Branch cholecalcif 2020-04 Yes 5000U Take 5,000 Univers boy, 2-05 Units by ity of vitamin D3, 16:26: [place]. [place] 25 mcg 38 Medical (1,000 Branch unit) tablet chlorthalid 2020-04 Yes 25mg Take 25 mg Univers one 25 mg 2-05 by mouth. ity o f tablet 16:26: [address] metformin 2020-04 Yes 750mg Take 750 Uni vers ER 750 mg 2-05 mg by ity of 24 hr 16:26: mouth. [address] clopidogreL 2020-04 Yes 75mg Take 75 mg Univers 75 mg 2-05 by mouth. ity of tablet 16:26: [address] amLODIPine 2020-04 Yes 10mg Take 10 mg U nivers 10 mg 2-05 by mouth. ity of tablet 16:26: [address] ascorbic 2020-04 Yes 500mg Take 500 Univ ers acid, 2-05 mg by ity of vitamin C, 16:26: mouth. [place] [address] tablet Branch cholecalcif 2020-04 Yes 5000U Take 5,000 Univers boy, 2-05 Units by ity of vitamin D3, 16:26: [place]. [place] 25 mcg Medical (1,000 Branch unit) tablet chlorthalid 2020-04 Yes 25mg Take 25 mg Univers one 25 mg 2-05 by mouth. ity o f tablet 16:26: [address] metformin 2020-04 Yes 750mg Take 750 Uni vers ER 750 mg 2-05 mg by ity of 24 hr 16:26: mouth. [address] clopidogreL 2020-04 Yes 75mg Take 75 mg Univers 75 mg 2-05 by mouth. ity of tablet 16:26: [address] aspirin-dip 2020-04- No [id number] 1{capsu Take 1 Univers yridamole 05-02 [id number] le} capsule by i ty of 25-200 mg 00:00: 00:00 [place] 2 [place] per 12 hr 00 :00 (two) Medical capsule times Branch daily for 30 days. aspirin-dip 2020-04- No [id number] 1{capsu Take 1 Univers yridamole 05-02 [id number] le} capsule by i ty of 25-200 mg 00:00: 05:59 [place] per 12 hr 00 :00 (two) Medical capsule times Branch daily for 30 days. aspirin-dip 2020-04- No [id number] 1{capsu Take 1 Univers yridamole 05-02 [id number] le} capsule by i ty of 25-200 mg 00:00: 05:59 mouth [place] per 12 hr 00 :00 (two) Medical capsule times Branch daily for 30 days. atorvastati 2020-04 Yes [id number] 40mg Take 1 Univers n 40 mg 04-12 tablet by ity of tablet 00:00: mouth at [place] [address] bedtime. Medical Branch atorvastati 2020-04 Yes [id number] 40mg Take 1 Univers n 40 mg 04-12 tablet by ity of tablet 00:00: mouth at [place] 00 bedtime. Medical Branch atorvastati 2020-04- No [id number] 40mg Take 1 Univers n 40 mg 04-12 tablet by ity of tablet 00:00: 00:00 mouth at [place] 00 :00 bedtime. [facility] Vital Signs Vital Name Observation Time Observation Value Comments Source Systolic blood 2021-04-07 20:55:00 143 mm[Hg] Univer sity of [facility] Diastolic blood 2021-04-07 20:55:00 71 mm[facility]Hg] [facility] 2021-04-07 20:55:00 83 /min [facility] Body temperature 2021-04-07 20:55:00 36 Marlee [facility] Respiratory rate 2021-04-07 20:55:00 18 /min [facility] Oxygen saturation in 2021-04-07 20:55:00 98 /min [facility] Arterial blood by [facility] [place] Pulse oximetry Branch Body height 2021-03-30 14:05:00 177.8 cm [facility] Body weight 2021-03-30 14:05:00 72.122 kg [facility] BMI 2021-03-30 14:05:00 22.81 kg/m2 [facility] Systolic blood 2021-03-30 14:05:00 114 mm[Hg] Univer sity of [facility] Diastolic blood 2021-03-30 14:05:00 78 mm[Hg] [facility] rate 2021-03-30 14:05:00 84 /min Universi ty [facility] [place] [facility] Body temperature 2021-03-30 14:05:00 36.22 Marlee Univ ersity [facility] [place] [facility] Respiratory rate 2021-03-30 14:05:00 12 /min Univ ersity [facility] [place] [facility] Body height 2021-03-30 14:05:00 177.8 cm Universi ty [facility] [place] [facility] Body weight 2021-03-30 14:05:00 72.122 kg Universi ty [facility] [place] [facility] BMI 2021-03-30 14:05:00 22.81 kg/m2 Universi ty [facility] [place] [facility] Oxygen saturation in 2021-03-30 14:05:00 100 /min University of Arterial blood by [place] [email or web address] Pulse oximetry Branch Height 2021-01-07 12:08:00 177.8 CM Weight 2021-01-07 12:08:00 80.8 KG Systolic blood 2021-03-29 17:57:00 119 mm[Hg] Univer sity of pressure [place] [facility] Diastolic blood 2021-03-29 17:57:00 57 mm[Hg] Unive rsity of pressure [place] [facility] Heart rate 2021-03-29 17:57:00 87 /min Universi ty [facility] [place] [facility] Body temperature 2021-03-29 17:57:00 36.67 Marlee Univ ersity [facility] [place] [facility] Respiratory rate 2021-03-29 17:57:00 16 /min Univ ersity [facility] [place] [facility] Oxygen saturation in 2021-03-29 17:57:00 96 /min University of Arterial blood by [place] [employer] Pulse oximetry Branch Body weight 2021-03-20 09:51:00 72.485 kg [facility]i ty [facility] [place] [facility] BMI 2021-03-20 09:51:00 22.93 kg/m2 [facility] [place] [facility] Body height 2021-03-15 21:31:00 177.8 cm Universi ty [facility] [place] [facility] Pulse Rate 2021-01-07 12:08:00 78 /min [facility] (LUF/SOUTH/SA) Respiratory Rate 2021-01-07 12:08:00 18 /min [facility] (LUF/SOUTH/SA) O2% BldC Oximetry 2021-01-07 12:08:00 96 % [facility] (LUF/SOUTH/SA) BP Systolic 2021-01-07 12:08:00 151 mm[Hg] [facility] (LUF/SOUTH/SA) BP Diastolic 2021-01-07 12:08:00 84 mm[Hg] [facility] (LUF/SOUTH/SA) Height 2021-01-07 12:08:00 70 [in_i] [facility] (LUF/SOUTH/SA) Weight 2021-01-07 12:08:00 80.8 kg [facility] (LUF/SOUTH/SA) BMI (Body Mass 2021-01-07 12:08:00 25.7 kg/m2 [facility] (F/SOUTH/SA) Body Temperature 2021-01-07 12:08:00 97.4 [degF] [facility] (F/SOUTH/SA) Procedures Procedure Date / Time Performing Source Performed Clinician POCT GLUCOSE (AUTOMATED) 2021-04-07 Andres Concepcionun Univers ity of 17:17:00 [facility] COVID-19 (ID NOW RAPID TESTING) 2021-04-07 Anisa Caruso [place] of 17:11:00 [facility] LAB ONLY COVID INTERPRETATION 2021-04-07 Anisa Caruso iversity of 17:11:00 [facility] POCT GLUCOSE (AUTOMATED) 2021-04-07 MichaelAndres rubioun Univers ity of 13:14:00 [facility] POCT GLUCOSE (AUTOMATED) 2021-04-06 Michael, Marcel Univers ity of 22:47:00 [facility] POCT GLUCOSE (AUTOMATED) 2021-04-06 Michael, Marcel Univers ity of 16:55:00 [facility] POCT GLUCOSE (AUTOMATED) 2021-04-06 Michael, Marcel Univers ity of 14:05:00 [facility] BASIC METABOLIC PANEL (NA, K, CL, 2021-04-06 [facility] University of CO2, GLUCOSE, BUN, CREATININE, 10:54:00 [facility] CBC WITH DIFF 2021-04-06 [facility] f 10:53:[address] [facility] POCT GLUCOSE (AUTOMATED) 2021-04-05 Michael, Marcel Univers ity of 21:39:00 [facility] POCT GLUCOSE (AUTOMATED) 2021-04-05 Michael, Marcel Univers ity of 18:09:00 [facility] POCT GLUCOSE (AUTOMATED) 2021-04-05 Michael, Marcel Univers ity of 14:03:00 [facility] POCT GLUCOSE (AUTOMATED) 2021-04-04 Michael, Marcel Univers ity of 21:40:00 [facility] POCT GLUCOSE (AUTOMATED) 2021-04-04 Michael, Marcel Univers ity of 18:07:00 [facility] POCT GLUCOSE (AUTOMATED) 2021-04-04 Michael, Marcel Univers ity of 14:07:00 [facility] POCT GLUCOSE (AUTOMATED) 2021-04-04 Michael, Marcel Univers ity of 01:40:00 [facility] POCT GLUCOSE (AUTOMATED) 2021-04-03 Michael, Marcel Univers ity of 22:51:00 [facility] CBC WITH DIFF 2021-04-03 Fortino Yoder [place] of 21:10:00 [facility] POCT GLUCOSE (AUTOMATED) 2021-04-03 Michael, Marcel Univers ity of 18:46:00 [facility] POCT GLUCOSE (AUTOMATED) 2021-04-03 Michael, Marcel Univers ity of 13:31:00 [facility] POCT GLUCOSE (AUTOMATED) 2021-04-02 Michael, Marcel Univers ity of 23:29:00 [facility] BASIC METABOLIC PANEL (NA, K, CL, 2021-04-02 Carlos Yoder [facility] of CO2, GLUCOSE, BUN, CREATININE, 23:10:00 [facility]) Branch CBC WITH DIFF 2021-04-02 Fortino Yoder [place] of 23:10:00 [facility] POCT GLUCOSE (AUTOMATED) 2021-04-02 Michael, Marcel Univers ity of 19:11:00 [facility] DUPLEX VENOUS LEGS BILATERAL - BY 2021-04-02 Beba, [facility] of VASCULAR LAB 15:31:56 [facility] POCT GLUCOSE (AUTOMATED) 2021-04-02 [facility], Marcel Univers ity of 13:39:00 [facility] POCT GLUCOSE (AUTOMATED) 2021-04-01 [facility], Marcel [facility] ity of 21:27:00 [facility] POCT GLUCOSE (AUTOMATED) 2021-04-01 [facility], Marcel Univers ity of 17:04:00 [facility] POCT GLUCOSE (AUTOMATED) 2021-04-01 [facility] ity of 13:35:00 [facility] MAGNESIUM 2021-04-01 [facility] of 10:40:00 [facility] BASIC METABOLIC PANEL (NA, K, CL, 2021-04-01 [facility] of CO2, GLUCOSE, BUN, CREATININE, 10:40:00 T [facility]) Branch CBC WITH DIFF 2021-04-01 Beba [facility] of 10:40:00 [facility] POCT GLUCOSE (AUTOMATED) 2021-03-31 [facility] Univers ity of 21:12:00 [facility] POCT GLUCOSE (AUTOMATED) 2021-03-31 [facility] ity of 17:06:00 [facility] POCT GLUCOSE (AUTOMATED) 2021-03-31 [facility] ity of 17:06:00 [facility] IR SPINAL LUMBAR PUNCTURE 2021-03-31 Fortino Yoder Uni versity of DIAGNOSTIC 16:50:00 [facility] IR SPINAL LUMBAR PUNCTURE 2021-03-31 Fortino Yoder Uni versity of DIAGNOSTIC 16:50:00 [facility] MISCELLANEOUS SEND OUT TEST 2021-03-31 Fortino Yoder U niversity of 16:38:00 [facility] CYTO SPINAL FLUID 2021-03-31 Davey Yodernida [place] of 16:33:00 [facility] CEREBROSPINAL FLUID PROTEIN 2021-03-31 Fortino Yoder U niversity of 16:31:00 [facility] CEREBROSPINAL FLUID GLUCOSE 2021-03-31 Fortino Yoder U niversity of 16:31:00 [facility] LACTIC ACID CSF 2021-03-31 [facility] of 16:31[facility]00 [facility] LDH CSF 2021-03-31 [facility] of 16:31:00 [facility] BODY FLUID DIRECT COUNT 2021-03-31 Fortino Yoder [facility] rsity of 16:31:00 [facility] EXTRA TUBE CSF 2021-03-31 [facility]y [facility]George [facility] of 16:31:00 [facility] CSF CULTURE 2021-03-31 Beba, [facility] of 16:31:00 [facility] MENINGITIS/ENCEPHALITIS PANEL BY 2021-03-31 [facility] PCR 16:31:00 [facility] CEREBROSPINAL FLUID PROTEIN 2021-03-31 Fortino Yoder niversity of 16:31:00 [facility] CEREBROSPINAL FLUID GLUCOSE 2021-03-31 Fortino Yoder niversity of 16:31:00 [facility] LACTIC ACID CSF 2021-03-31 Beba, [facility] of 16:31:00 [facility] LDH CSF 2021-03-31 Beba, [facility] of 16:31:00 [facility] BODY FLUID DIRECT COUNT 2021-03-31 Fortino Yoder [facility] rsity of 16:31:00 [facility] AFB CULTURE 2021-03-31 [facility]y [facility] of 16:31:00 [facility] CSF/SERVER ASSISTANT SHUNT CULTURE 2021-03-31 Fortino Yoder [facility] ty of 16:31:00 [facility] MISCELLANEOUS SEND OUT TEST 2021-03-31 Marcel Concepcion [facility] ersity of 16:31:00 [facility] ANGIOTENSIN CONVERT ENZ, CSF 2021-03-31 Davey [facility] of 16:31:00 [facility] WEST [place] VIRUS AB PANEL 2021-03-31 Davey Yodernida [facility] ersity of 16:31:00 [facility] V-EWUYNX-B-ASPARTATE RECEPTOR AB, 2021-03-31 Carlos Yoder [place] of CSF 16:31:00 [facility] EXTRA TUBE CSF 2021-03-31 Beba, [facility] of 16:31:00 [facility] CSF CULTURE 2021-03-31 Beba, [facility] of 16:31:00 [facility] MENINGITIS/ENCEPHALITIS PANEL BY 2021-03-31 Sunny Yoder [facility] of PCR 16:31:00 [facility] POCT GLUCOSE (AUTOMATED) 2021-03-31 [facility] of 13:29:00 [facility] POCT GLUCOSE (AUTOMATED) 2021-03-31 Michael [facility] ity of 13:29:00 [facility] MAGNESIUM 2021-03-31 Davey [facility] of 10:00:00 [facility] BASIC METABOLIC PANEL (NA, K, CL, 2021-03-31 Carlos Yoder [facility] of CO2, GLUCOSE, BUN, CREATININE, 10:00:00 [facility]) Branch CBC WITH DIFF 2021-03-31 Beba, [facility] of 10:00:00 [facility] MAGNESIUM 2021-03-31 [facility] of 10:00:00 [facility] BASIC METABOLIC PANEL (NA, K, CL, 2021-03-31 [facility] of CO2, GLUCOSE, BUN, CREATININE, 10:00:00 T [facility]) Branch CBC WITH DIFF 2021-03-31 Beba, [facility] of 10:00:00 [facility] MISCELLANEOUS SEND OUT TEST 2021-03-31 Fortino Yoder U niversity of 10:00:00 [facility] POCT GLUCOSE (AUTOMATED) 2021-03-30 Marcel Concepcion [facility] ity of 22:17:00 [facility] POCT GLUCOSE (AUTOMATED) 2021-03-30 Marcel Concepcion [facility] ity of 22:17:00 [facility] EGD (ENDO) 2021-03-30 Michael [facility] of 16:35:27 [facility] EGD (ENDO) 2021-03-30 Michael [facility] of 16:35:27 [facility] ESOPHAGOGASTRODUODENOSCOPY 2021-03-[address] Uni versity of 16:30:00 [facility] PERCUTANEOUS ENDOSCOPIC GASTRIC 2021-03-[address] University of TUBE PLACEMENT 16:30:00 [facility] ESOPHAGOGASTRODUODENOSCOPY 2021-03-[address] Uni versity of 16:30:00 [facility] PERCUTANEOUS ENDOSCOPIC GASTRIC 2021-03-[address] University of TUBE PLACEMENT 16:30:00 [facility] POCT GLUCOSE (AUTOMATED) 2021-03-30 [facility] ity of 13:53:00 [facility] POCT GLUCOSE (AUTOMATED) 2021-03-30 [facility] ity of 13:53:00 [facility] MAGNESIUM 2021-03-30 [facility] of 10:47:00 [facility] BASIC METABOLIC PANEL (NA, K, CL, 2021-03-30 [facility] of CO2, GLUCOSE, BUN, CREATININE, 10:47:00 [facility] Branch CBC WITH DIFF 2021-03-30 [facility] of 10:47:00 [facility] MAGNESIUM 2021-03-30 [facility] of 10:47:00 [facility] BASIC METABOLIC PANEL (NA, K, CL, 2021-03-30 [facility] of CO2, GLUCOSE, BUN, CREATININE, 10:47:00 [facility] Branch CBC WITH DIFF 2021-03-30 [facility] of 10:47:00 [facility] POCT GLUCOSE (AUTOMATED) 2021-03-29 [facility] ity of 22:19:00 [facility] POCT GLUCOSE (AUTOMATED) 2021-03-29 [facility] ity of 22:19:00 [facility] COVID-19 (ID NOW RAPID TESTING) 2021-03-29 Russ Titus [place] of 22:03:00 [facility] LAB ONLY COVID INTERPRETATION 2021-03-29 uRss Titus iversity of 22:03:00 [facility] COVID-19 (ID NOW RAPID TESTING) 2021-03-29 Russ Titus University of 22:03:00 [facility] LAB ONLY COVID INTERPRETATION 2021-03-29 Russ Titus iversity of 22:03:00 [facility] HEPARIN ANTI-XA, LOW MOLECULAR 2021-03-29 Beba, [facility] University of WEIGHT HEPARIN 19:01:00 [facility] HEPARIN ANTI-XA, LOW MOLECULAR 2021-03-29 [facility] University of WEIGHT HEPARIN 19:01:00 [facility] CBC WITHOUT DIFF 2021-03-29 [facility] o f 18:31:00 [facility] CBC WITHOUT DIFF 2021-03-29 [facility] o f 18:31:00 [facility] POCT GLUCOSE (AUTOMATED) 2021-03-29 Andres Concepcionun Univers ity of 18:07:00 [facility] POCT GLUCOSE (AUTOMATED) 2021-03-29 Andres Concepcionun Univers ity of 18:07:00 [facility] TRANSFUSE PACKED RBC 2021-03-[address] [facility] of 16:01:00 [facility] TRANSFUSE PACKED RBC 2021-03-29 [facility] ty of 16:01:00 [facility] TRANSFUSE PACKED RBC 2021-03-29 [facility] ty of 16:01:00 [facility] PREPARE PACKED RBC 2021-03-29 [facility] of 15:56:11 [facility] PREPARE PACKED RBC 2021-03-29 [facility] of 15:56:11 [facility] PREPARE PACKED RBC 2021-03-29 [facility] of 15:56:11 [facility] POCT GLUCOSE (AUTOMATED) 2021-03-29 Michael Marcel Univers ity of 13:23:00 [facility] POCT GLUCOSE (AUTOMATED) 2021-03-29 Michael, Marcel Univers ity of 13:23:00 [facility] POCT GLUCOSE (AUTOMATED) 2021-03-29 Michael Marcel Univers ity of 13:23:00 [facility] MAGNESIUM 2021-03-29 Beba, [facility] of 11:50:00 [facility] BASIC METABOLIC PANEL (NA, K, CL, 2021-03-29 Beba, [facility] of CO2, GLUCOSE, BUN, CREATININE, 11:50:00 [facility] CBC WITH DIFF 2021-03-29 [facility] of 11:50:00 [facility] MAGNESIUM 2021-03-29 Beba, [facility] of 11:50:00 [facility] BASIC METABOLIC PANEL (NA, K, CL, 2021-03-29 [facility] of CO2, GLUCOSE, BUN, CREATININE, 11:50:00 [facility] [place] Branch CBC WITH DIFF 2021-03-29 Beba, [facility] of 11:50:00 [facility] [facility] CBC WITH DIFF 2021-03-29 [facility] of 11:50:00 [facility] BASIC METABOLIC PANEL (NA, K, CL, 2021-03-29 [facility] of CO2, GLUCOSE, BUN, CREATININE, 11:50:00 [facility] [place] MAGNESIUM 2021-03-29 Beba, [facility] of 11:50:00 [facility] CBC WITHOUT DIFF 2021-03-28 Beba, [facility] o f 23:01:00 [facility] CBC WITHOUT DIFF 2021-03-28 Beba, [facility] o f 23:01:00 [facility] MISCELLANEOUS SEND OUT TEST 2021-03-28 Fortino Yoder [facility] niversity of 23:01:00 [facility] CBC WITHOUT DIFF 2021-03-28 Beba, [facility] o f 23:01:00 [facility] POCT GLUCOSE (AUTOMATED) 2021-03-28 Marcel Concepcion [facility] ity of 22:16:00 [facility] POCT GLUCOSE (AUTOMATED) 2021-03-28 Michael Marcel Univers ity of 22:16:00 [facility] POCT GLUCOSE (AUTOMATED) 2021-03-28 Michael, Marcel Univers ity of 22:16:00 [facility] MISCELLANEOUS SEND OUT TEST 2021-03-28 Fortino Yoder U niversity of 17:51:00 [facility] POCT GLUCOSE (AUTOMATED) 2021-03-28 Michael, Marcel Univers ity of 17:06:00 [facility] POCT GLUCOSE (AUTOMATED) 2021-03-28 Michael, Marcel Univers ity of 17:06:00 [facility] POCT GLUCOSE (AUTOMATED) 2021-03-28 Michael, Marcel Univers ity of 17:06:00 [facility] POCT GLUCOSE (AUTOMATED) 2021-03-28 Michael, Marcel Univers ity of 13:11:00 [facility] POCT GLUCOSE (AUTOMATED) 2021-03-28 Michael, Marcel Univers ity of 13:11:00 [facility] POCT GLUCOSE (AUTOMATED) 2021-03-28 Michael, Marcel Univers ity of 13:11:00 [facility] BASIC METABOLIC PANEL (NA, K, CL, 2021-03-28 [facility] CO2, GLUCOSE, BUN, CREATININE, 10:56:00 [facility] [place] BASIC METABOLIC PANEL (NA, K, CL, 2021-03-28 [facility] CO2, GLUCOSE, BUN, CREATININE, 10:56:00 [facility] [place] BASIC METABOLIC PANEL (NA, K, CL, 2021-03-28 [facility] CO2, GLUCOSE, BUN, CREATININE, 10:56:00 [facility] [place] CBC WITHOUT DIFF 2021-03-28 [facility] of 10:46:00 [facility] PROTHROMBIN TIME / INR 2021-03-28 [facility] of 10:46:00 [facility] ACTIVATED PARTIAL THRMPLAS LASHONDA 2021-03-28 Mitchell [facility] of 10:46:00 [facility] CBC WITHOUT DIFF 2021-03-28 [facility] of 10:46:00 [facility] PROTHROMBIN TIME / INR 2021-03-28 Mitchell Yana Unive rsity of 10:46:00 [facility] ACTIVATED PARTIAL THRMPLAS LASHONDA 2021-03-[address] [facility] of 10:46:00 [facility] CBC WITHOUT DIFF 2021-03-28 Damaris Dominique [place] of 10:46:00 [facility] PROTHROMBIN TIME / INR 2021-03-28 Mitchell Yana [facility] rsity of 10:46:00 [facility] ACTIVATED PARTIAL THRMPLAS LASHONDA 2021-03-[address] [facility] of 10:46:00 [facility] PREPARE PACKED RBC 2021-03-28 Mitchell [facility] y of 04:56:39 [facility] PREPARE PACKED RBC 2021-03-28 [facility] of 04:56:39 [facility] PREPARE PACKED RBC 2021-03-28 [facility] of 04:56:39 [facility] CBC WITHOUT DIFF 2021-03-28 [facility] 03[facility]36[facility]00 [facility] CBC WITHOUT DIFF 2021-03-28 [facility] of 03:36:00 [facility] CBC WITHOUT DIFF 2021-03-28 [facility] of 03:36[facility]00 [facility] XR CHEST 1 VW 2021-03-28 [facility] f 03:25:41 [facility] XR CHEST 1 VW 2021-03-28 [facility] f 03:25:41 [facility] XR CHEST 1 VW 2021-03-28 [facility] f 03:25:41 [facility] BLOOD CULTURE SCREEN 2021-03-27 Beba Pankhuri [facility] ty of 22:41:00 [facility] Branch BLOOD CULTURE SCREEN 2021-03-27 Beba Pankhuri [facility] ty of 22:41:00 [facility] Branch BLOOD CULTURE SCREEN 2021-03-27 Beba Pankhuri [facility] of 22:41:00 [facility] [place] [facility] BLOOD CULTURE SCREEN 2021-03-27 Beba, Pankhuri [facility]i ty of 22:29:00 [facility] BLOOD CULTURE SCREEN 2021-03-27 Beba Pankhuri [facility] of 22:29:00 [place] [facility] BLOOD CULTURE SCREEN 2021-03-27 [facility] ty of 22:29:00 [facility] URINALYSIS 2021-03-27 [facility] of 22:11:00 [facility] URINE CULTURE 2021-03-27 [facility] of 22:11:00 [facility] URINALYSIS 2021-03-27 [facility] of 22:11:00 [facility] URINE CULTURE 2021-03-27 [facility] of 22:11:00 [facility] URINALYSIS 2021-03-27 [facility] of 22[facility]11:00 [facility] URINE CULTURE 2021-03-27 [facility] of 22:11:00 [facility] POCT GLUCOSE (AUTOMATED) 2021-03-27 Michael, Marcel Univers ity of 22:10:00 [facility] POCT GLUCOSE (AUTOMATED) 2021-03-27 Michael, Marcel Univers ity of 22:10:00 [facility] POCT GLUCOSE (AUTOMATED) 2021-03-27 Michael, Marcel Univers ity of 22:10:00 [facility] CBC WITHOUT DIFF 2021-03-27 [facility] 21:20:00 [facility] CBC WITHOUT DIFF 2021-03-27 [facility] 21:20:00 [facility] CBC WITHOUT DIFF 2021-03-27 [facility] 21:20:00 [facility] INTUBATION 2021-03-27 Martina Fowler [place] [facility] 18:51:00 [facility] ABORH CONFIRMATION (LAB ONLY) 2021-03-27 Nela Tidwell i [place] [facility] 16:15:00 [facility] ABORH CONFIRMATION (LAB ONLY) 2021-03-27 Kimberly Tidwellhyrob Driver [facility] 16:15:00 [facility] ABORH CONFIRMATION (LAB ONLY) 2021-03-27 Nela Tidwell i [place] of 16:15:00 [facility] HB ABO GROUPING 2021-03-27 Nela Tidwell [place] o f 16:00:00 [facility] HB ABO GROUPING 2021-03-27 [facility] o f 16[facility]00:00 [facility] HB ABO GROUPING 2021-03-27 [facility] o f 16:00:00 [facility] XR CHEST 1 VW 2021-03-27 [facility], [facility] 14:20:00 [facility] XR CHEST 1 VW 2021-03-27 Beba, [facility] of 14:20:00 [facility] XR CHEST 1 VW 2021-03-27 Beba [facility] of 14:20:00 [facility] POCT GLUCOSE (AUTOMATED) 2021-03-27 [facility] of 14:03:00 [facility] POCT GLUCOSE (AUTOMATED) 2021-03-27 Michael, [facility] ity of 14:03:00 [facility] POCT GLUCOSE (AUTOMATED) 2021-03-27 [facility] ity of 14:03:00 [facility] DIFF CONSULT INTERPRETATION 2021-03-27 Fortino Yoder U niversity of 10:18:00 [facility] CBC WITH DIFF 2021-03-27 Beba, Pannida [place] of 10:18:00 [facility] DIFF CONSULT INTERPRETATION 2021-03-27 Fortino Yoder U niversity of 10:18:00 [facility] CBC WITH DIFF 2021-03-27 Davey Yodernida [place] of 10:18:00 [facility] CBC WITH DIFF 2021-03-27 Davey Yodernida [place] of 10:18:00 [facility] DIFF CONSULT INTERPRETATION 2021-03-27 Fortino Yoder U niversity of 10:18:00 [facility] PROTHROMBIN TIME / INR 2021-03-27 Fortino Yoder Univer sity of 09:47:00 [facility] PROTHROMBIN TIME / INR 2021-03-27 Fortino Yoder Univer sity of 09:47:00 [facility] PROTHROMBIN TIME / INR 2021-03-27 Fortino Yoder Univer sity of 09:47:00 [facility] ANTI-SSA(RO) 2021-03-26 [facility] of 23:24:00 [facility] GALV ONLY - SYPHILIS IGG/IGM 2021-03-26 [facility] of 23:24:00 [facility] ANTI-SSA(RO) 2021-03-26 [facility] of 23:24:00 [facility] GALV ONLY - SYPHILIS IGG/IGM 2021-03-26 [facility] of 23:24:00 [facility] GALV ONLY - SYPHILIS IGG/IGM 2021-03-26 [facility] of 23:24:00 [facility] HAPTOGLOBIN, SERUM 2021-03-26 [facility] of 23:23:00 [facility] ANTI-NUCLEAR ANTIBODY SCREEN 2021-03-26 [facility] of 23:23:00 [facility] HAPTOGLOBIN, SERUM 2021-03-26 [facility] of 23:23:00 [facility] ANTI-NUCLEAR ANTIBODY SCREEN 2021-03-26 [facility] of 23:23:00 [facility] ANTI-NUCLEAR ANTIBODY-PATHOLOGIST 2021-03-26 [facility] of INTERPRETATION 23:23:00 [facility] ANTI-NUCLEAR ANTIBODY SCREEN 2021-03-26 [facility] of 23:23:00 [facility] HAPTOGLOBIN, SERUM 2021-03-26 [facility] of 23:23:00 [facility] POCT GLUCOSE (AUTOMATED) 2021-03-26 [facility] Marcel [facility] ity of 22:33:00 [facility] POCT GLUCOSE (AUTOMATED) 2021-03-26 Michael, [facility] ity of 22:33:00 [facility] POCT GLUCOSE (AUTOMATED) 2021-03-26 [facility] ity of 22:33:00 [facility] FECAL IMMUNOCHEMICAL TEST 2021-03-26 Fortino Yoder Uni versity of 21:47:00 [facility] FECAL IMMUNOCHEMICAL TEST 2021-03-26 Davey Yodernida Uni versity of 21:47:00 [facility] FECAL IMMUNOCHEMICAL TEST 2021-03-26 Beba, Fortino Uni versity of 21:47:00 [facility] LACTATE DEHYDROGENASE 2021-03-26 Fortino Yoder Univers ity of 20:00:00 [facility] HEPATIC FUNCTION PANEL ([id number]) 2021-03-26 [facility] (ALB,T.PRO,BILI 20:00:00 [place] [facility] T,BU/BC,ALT,AST,ALK PHOS) Branch LACTATE DEHYDROGENASE 2021-03-26 Beba, Pannida Univers ity of 20:00:00 [facility] HEPATIC FUNCTION PANEL ([id number]) 2021-03-26 [facility] (ALB,T.PRO,BILI 20:00:00 [place] [facility] T,BU/BC,ALT,AST,ALK PHOS) Branch LACTATE DEHYDROGENASE 2021-03-26 BebaFortino armas Univers ity of 20:00:00 [facility] HEPATIC FUNCTION PANEL ([id number]) 2021-03-26 [facility] of (ALB,T.PRO,BILI 20:00:00 [place] [facility] T,BU/BC,ALT,AST,ALK PHOS) Branch POCT GLUCOSE (AUTOMATED) 2021-03-26 Michael, Marcel Univers ity of 18:16:00 [facility] POCT GLUCOSE (AUTOMATED) 2021-03-26 Michael, Marcel Univers ity of 18:16:00 [facility] POCT GLUCOSE (AUTOMATED) 2021-03-26 Michael, Marcel Univers ity of 18:16:00 [facility] POCT GLUCOSE (AUTOMATED) 2021-03-26 Michael, Marcel Univers ity of 14:51:00 [facility] POCT GLUCOSE (AUTOMATED) 2021-03-26 Michael, Marcel Univers ity of 14:51:00 [facility] POCT GLUCOSE (AUTOMATED) 2021-03-26 Michael, Marcel Univers ity of 14:51:00 [facility] METHYLMALONIC ACID, SERUM 2021-03-26 Beba Fortino Uni versity of 12:02:00 [facility] CBC WITHOUT DIFF 2021-03-26 [facility] o f 12:02:00 [facility] RETICULOCYTES AUTOMATED 2021-03-26 [facility] rsity of 12:02:00 [facility] METHYLMALONIC ACID, SERUM 2021-03-26 [facility] 12:02[facility]00 [facility] CBC WITHOUT DIFF 2021-03-26 [facility] o f 12:02:00 [facility] RETICULOCYTES AUTOMATED 2021-03-26 [facility] rsity of 12:02:00 [facility] CBC WITHOUT DIFF 2021-03-26 [facility] o f 12:02:00 [facility] RETICULOCYTES AUTOMATED 2021-03-26 [facility] rsity of 12:02:00 [facility] POCT GLUCOSE (AUTOMATED) 2021-03-25 Michael, Marcel Univers ity of 22:48:00 [facility] POCT GLUCOSE (AUTOMATED) 2021-03-25 Michael, Marcel Univers ity of 22:48:00 [facility] POCT GLUCOSE (AUTOMATED) 2021-03-25 Michael, Marcel Univers ity of 22:48:00 [facility] CBC WITH DIFF 2021-03-25 Linden [facility] of 18:24:00 [facility] D-DIMER 2021-03-25 Elnae, [facility] of 18:24:00 [facility] CBC WITH DIFF 2021-03-25 Elnae, [facility] of 18:24:00 [facility] D-DIMER 2021-03-25 Elnaeem, [facility] of 18:24:00 [facility] D-DIMER 2021-03-25 Elnae, [facility] of 18:24:00 [facility] CBC WITH DIFF 2021-03-25 Elnae, [facility] of 18:24:00 [facility] POCT GLUCOSE (AUTOMATED) 2021-03-25 Michael, Marcel Univers ity of 18:05:00 [facility] POCT GLUCOSE (AUTOMATED) 2021-03-25 Michael Marcel Univers ity of 18:05:00 [facility] POCT GLUCOSE (AUTOMATED) 2021-03-25 Marcel Concepcion Univers ity of 18:05:00 [facility] POCT GLUCOSE (AUTOMATED) 2021-03-25 Maritza Fajardo Univers ity of 14:36:00 [facility] POCT GLUCOSE (AUTOMATED) 2021-03-25 Maritza Fajardo Univers ity of 14:36:00 [facility] POCT GLUCOSE (AUTOMATED) 2021-03-25 Maritza Fajardo Univers ity of 14:36:00 [facility] AMMONIA, PLASMA 2021-03-25 [facility] of 02:55:00 [facility] AMMONIA, PLASMA 2021-03-25 [facility] of 02:55:00 [facility] AMMONIA, PLASMA 2021-03-25 [facility] of 02:55:00 [facility] MR BRAIN W WO CONTRAST 2021-03-25 [facility] Univer sity of 01:57:57 [facility] MR BRAIN W WO CONTRAST 2021-03-25 Beba, [facility] Univer sity of 01:57:57 [facility] MR BRAIN W WO CONTRAST 2021-03-25 Beba, [facility] Univer sity of 01:57:57 [facility] POCT GLUCOSE (AUTOMATED) 2021-03-24 Maritza Fajardo Univers ity of 21:53:00 [facility] POCT GLUCOSE (AUTOMATED) 2021-03-24 Maritza Fajardo Univers ity of 21:53:00 [facility] POCT GLUCOSE (AUTOMATED) 2021-03-24 Maritza Fajardo Univers ity of 21:53:00 [facility] POCT GLUCOSE (AUTOMATED) 2021-03-24 Maritza Fajardo Univers ity of 17:34:00 [facility] POCT GLUCOSE (AUTOMATED) 2021-03-24 Maritza Fajardo Univers ity of 17:34:00 [facility] POCT GLUCOSE (AUTOMATED) 2021-03-24 Maritza Fajardo ity of 17:34:00 [facility] POCT GLUCOSE (AUTOMATED) 2021-03-24 Maritza Fajardo Univers ity of 13:45:00 [facility] POCT GLUCOSE (AUTOMATED) 2021-03-24 Maritza Fajardo Univers ity of 13:45:00 [facility] POCT GLUCOSE (AUTOMATED) 2021-03-24 Maritza Fajardo Univers ity of 13:45:00 [facility] FERRITIN SERUM 2021-03-24 [facility] of 10:11:00 [facility] C-REACTIVE PROTEIN 2021-03-24 [facility] of 10:11:00 [facility] THYROID STIMULATING HORMONE 2021-03-24 [facility] niversity of 10:11:00 [facility] BASIC METABOLIC PANEL (NA, K, CL, 2021-03-24 [facility] CO2, GLUCOSE, BUN, CREATININE, 10:11:00 [facility] [place] IRON PANEL 2021-03-24 Beba, [facility] 10:11:00 [facility] SEDIMENTATION RATE 2021-03-24 Beba [facility] of 10:11:00 [facility] CBC WITH DIFF 2021-03-24 Vaishali [facility] of 10:11:00 [facility] HIV 1/2 AG-AB WITH REFLEX 2021-03-24 Fortino Yoder Uni versity of 10:11:00 [facility] FERRITIN SERUM 2021-03-24 Beba [facility] of 10:11:00 [facility] C-REACTIVE PROTEIN 2021-03-24 Beba, [facility] of 10:11:00 [facility] THYROID STIMULATING HORMONE 2021-03-24 Fortino Yoder U niversity of 10:11:00 [facility] BASIC METABOLIC PANEL (NA, K, CL, 2021-03-24 [facility] CO2, GLUCOSE, BUN, CREATININE, 10:11:00 [facility] [place]) Branch IRON PANEL 2021-03-24 [facility]y [facility] of 10:11:00 [facility] SEDIMENTATION RATE 2021-03-24 Davey [facility]George [facility] of 10:11:00 [facility] CBC WITH DIFF 2021-03-24 [facility] of 10:11:00 [facility] HIV 1/2 AG-AB WITH REFLEX 2021-03-24 [facility] Uni versity of 10:11:00 [facility] CBC WITH DIFF 2021-03-24 Vaishali [facility] of 10:11:00 [facility] BASIC METABOLIC PANEL (NA, K, CL, 2021-03-24 [facility] of CO2, GLUCOSE, BUN, CREATININE, 10:11:00 T [facility] [place]) Branch SEDIMENTATION RATE 2021-03-24 Davey [facility]George [facility] of 10:11:00 [facility] C-REACTIVE PROTEIN 2021-03-24 Beba [facility] of 10:11:00 [facility] THYROID STIMULATING HORMONE 2021-03-24 Fortino Yoder U niversity of 10:11:00 [facility] IRON PANEL 2021-03-24 Beba [facility] of 10:11:00 [facility] FERRITIN SERUM 2021-03-24 Beba [facility] of 10:11:00 [facility] HIV 1/2 AG-AB WITH REFLEX 2021-03-24 Fortino Yoder Uni versity of 10:11:00 [facility] POCT GLUCOSE (AUTOMATED) 2021-03-24 Maritza Fajardo Univers ity of 02:23:00 [facility] POCT GLUCOSE (AUTOMATED) 2021-03-24 Maritza Fajardo Univers ity of 02:23:00 [facility] POCT GLUCOSE (AUTOMATED) 2021-03-24 Maritza Fajardo Univers ity of 02:23:00 [facility] XR ABDOMEN 1 VW 2021-03-23 [facility] of 23[facility]05:26 [facility] XR ABDOMEN 1 VW 2021-03-23 [facility] of 23:05:26 [facility] XR ABDOMEN 1 VW 2021-03-23 Amrani, [facility] of 23:05:26 [facility] POCT GLUCOSE (AUTOMATED) 2021-03-23 Janel Fajardod Univers ity of 23:00:00 [facility] POCT GLUCOSE (AUTOMATED) 2021-03-23 Tana Fajardomad Univers ity of 23:00:00 [facility] POCT GLUCOSE (AUTOMATED) 2021-03-23 Tana Fajardomad Univers ity of 23:00:00 [facility] POCT GLUCOSE (AUTOMATED) 2021-03-23 Tana Fajardomad Univers ity of 17:38:00 [facility] POCT GLUCOSE (AUTOMATED) 2021-03-23 Tana Fajardomad Univers ity of 17:38:00 [facility] POCT GLUCOSE (AUTOMATED) 2021-03-23 Janel Fajardod Univers ity of 17:38:00 [facility] TRANSTHORACIC ECHO (TTE) COMPLETE 2021-03-23 varsha [facility] of W/ CONTRAST 16:40:00 [facility] TRANSTHORACIC ECHO (TTE) COMPLETE 2021-03-23 varsha [facility] of W/ CONTRAST 16:40:00 [facility] TRANSTHORACIC ECHO (TTE) COMPLETE 2021-03-23 varsha [facility] of W/ CONTRAST 16:40:00 [facility] POCT GLUCOSE (AUTOMATED) 2021-03-23 Maritza Fajardo [facility] of 14:16:00 [facility] POCT GLUCOSE (AUTOMATED) 2021-03-23 Janel Fajardod [facility] of 14:16:00 [facility] POCT GLUCOSE (AUTOMATED) 2021-03-23 Janel Fajardod [facility] of 14:16:00 [facility] POCT GLUCOSE (AUTOMATED) 2021-03-23 Janel Fajardod [facility] 02:07:00 [facility] PO[facility]SE (AUTOMATED) 2021-03-23 Janel Fajardod [facility] 02:07:00 [facility] POCT GLUCOSE (AUTOMATED) 2021-03-23 Maritza Fajardo [facility] of 02:07:00 [facility] ELECTROENCEPHALOGRAM 2021-03-[address] [facility] of 00:00:00 [facility] ELECTROENCEPHALOGRAM 2021-03-[address] [facility] of 00:00:00 [facility] ELECTROENCEPHALOGRAM 2021-03-[address] [facility] of 00:00:00 [facility] POCT GLUCOSE (AUTOMATED) 2021-03-22 Janel Fajardod [facility] of 22:19:00 [facility] POCT GLUCOSE (AUTOMATED) 2021-03-22 Tana Fajardomad [facility] of 22:19:00 [facility] POCT GLUCOSE (AUTOMATED) 2021-03-22 Maritza Fajardo [facility] of 22:19:00 [facility] POCT GLUCOSE (AUTOMATED) 2021-03-22 Janel Fajardod [facility] of 17:11:00 [facility] POCT GLUCOSE (AUTOMATED) 2021-03-22 Janel Fajardod [facility] of 17:11:00 [facility] POCT GLUCOSE (AUTOMATED) 2021-03-22 Maritza Fajardo [facility] of 17:11:00 [facility] CT ANGIOGRAM HEAD 2021-03-22 [facility] o f 16:28:00 [facility] CT ANGIOGRAM NECK 2021-03-22 [facility] o f 16:28:00 [facility] CT ANGIOGRAM HEAD 2021-03-22 [facility] o f 16:28:00 [facility] CT ANGIOGRAM NECK 2021-03-22 [facility] o f 16:28:00 [facility] CT ANGIOGRAM HEAD 2021-03-22 [facility] o f 16:28:00 [facility] CT ANGIOGRAM NECK 2021-03-22 [facility] o f 16:28:00 [facility] POCT GLUCOSE (AUTOMATED) 2021-03-22 Maritza Fajardo [facility] of 13:32:00 [facility] POCT GLUCOSE (AUTOMATED) 2021-03-22 Maritza Fajardo [facility] of 13:32:00 [facility] POCT GLUCOSE (AUTOMATED) 2021-03-22 Maritza Fajardo [facility] of 13:32:00 [facility] BASIC METABOLIC PANEL (NA, K, CL, 2021-03-22 [facility] of CO2, GLUCOSE, BUN, CREATININE, 09:38:00 [facility] VERIFYNOW ASPIRIN TEST 2021-03-22 [facility] of 09:38:00 [facility] BASIC METABOLIC PANEL (NA, K, CL, 2021-03-22 [facility] of CO2, GLUCOSE, BUN, CREATININE, 09:38:00 [facility]) Branch VERIFYNOW ASPIRIN TEST 2021-03-22 Esechie, [facility] Univers ity of 09:38:00 [facility] VERIFYNOW ASPIRIN TEST 2021-03-22 [facility], [facility] Univers ity of 09:38:00 [facility] BASIC METABOLIC PANEL (NA, K, CL, 2021-03-22 [facility] of CO2, GLUCOSE, BUN, CREATININE, 09:38:00 [facility]) Branch POCT GLUCOSE (AUTOMATED) 2021-03-22 Maritza Fajardo [facility] of 02:17:00 [facility] POCT GLUCOSE (AUTOMATED) 2021-03-22 Maritza Fajardo [facility] of 02:17:00 [facility] POCT GLUCOSE (AUTOMATED) 2021-03-22 Maritza Fajardo [facility] of 02:17:00 [facility] POCT GLUCOSE (AUTOMATED) 2021-03-21 Maritza Fajardo [facility] of 22:40:00 [facility] POCT GLUCOSE (AUTOMATED) 2021-03-21 Maritza Fajardo [facility] of 22:40:00 [facility] POCT GLUCOSE (AUTOMATED) 2021-03-21 Maritza Fajardo [facility] of 22:40:00 [facility] POCT GLUCOSE (AUTOMATED) 2021-03-21 Janel Fajardod [facility] of 17:26:00 [facility] POCT GLUCOSE (AUTOMATED) 2021-03-21 Tana Fajardomad [facility] ity of 17:26:00 [facility] POCT GLUCOSE (AUTOMATED) 2021-03-21 Abundio Fajardohammad Univers ity of 17:26:00 [facility] POCT GLUCOSE (AUTOMATED) 2021-03-21 Tana Fajardomad [facility] of 13:30:00 [facility] POCT GLUCOSE (AUTOMATED) 2021-03-21 Tana, Salas [facility] ity of 13:30:00 [facility] POCT GLUCOSE (AUTOMATED) 2021-03-21 Tnaa Fajardomad [facility] of 13:30:00 [facility] BASIC METABOLIC PANEL (NA, K, CL, 2021-03-21 [facility] of CO2, GLUCOSE, BUN, CREATININE, 10:41:00 [facility]) Branch CBC WITH DIFF 2021-03-21 [facility] o f 10:41:00 [facility] BASIC METABOLIC PANEL (NA, K, CL, 2021-03-21 [facility] of CO2, GLUCOSE, BUN, CREATININE, 10:41:00 T [facility]) Branch CBC WITH DIFF 2021-03-21 [facility] o f 10:41:00 [facility] BASIC METABOLIC PANEL (NA, K, CL, 2021-03-21 [facility] of CO2, GLUCOSE, BUN, CREATININE, 10:41:00 [facility]) Branch CBC WITH DIFF 2021-03-21 [facility] o f 10:41:00 [facility] POCT GLUCOSE (AUTOMATED) 2021-03-21 Tana Salas [facility] of 02:03:00 [facility] POCT GLUCOSE (AUTOMATED) 2021-03-21 Tana Fajardomad [facility] of 02:03:00 [facility] POCT GLUCOSE (AUTOMATED) 2021-03-21 Maritza Fajardo [facility] of 02:03:00 [facility] BLOOD CULTURE SCREEN 2021-03-21 Mitchell Yana [facility] ity of 01:44:00 [facility] Branch BLOOD CULTURE SCREEN 2021-03-21 Katty Mitchella [facility] of 01:44:00 [facility] Branch BLOOD CULTURE SCREEN 2021-03-21 Katty Mitchella [facility] it[facility] of 01:44:00 [facility] Branch BLOOD CULTURE SCREEN 2021-03-21 Ferrisfahad Yana [facility] ity of 00:38:00 [facility] Branch BLOOD CULTURE SCREEN 2021-03-21 Katty Mitchella [facility] it[facility] of 00:38:00 [facility] Branch BLOOD CULTURE SCREEN 2021-03-21 varsha Danyel Acunaantha Univers ity of 00:38:00 [facility] XR CHEST 1 2021-03-21 Mitchell [facility] o f 00:17:00 [facility] XR CHEST 1 2021-03-21 Mitchlel [facility] o f 00:17:00 [facility] Branch XR CHEST 1 2021-03-21 Mitchell [facility] o f 00:17:00 [facility] URINALYSIS 2021-03-21 Mitchell [facility] o f 00:16:00 [facility] URINALYSIS 2021-03-21 Mitchell [facility] o f 00:16:00 [facility] URINALYSIS 2021-03-21 Mitchell [facility] o f 00:16:00 [facility] POCT GLUCOSE (AUTOMATED) 2021-03-20 Maritza Fajardo [facility] of 22:04:00 [facility] POCT GLUCOSE (AUTOMATED) 2021-03-20 Maritza Fajardo [facility] of 22:04:00 [facility] POCT GLUCOSE (AUTOMATED) 2021-03-20 Maritza Fajardo [facility] of 22:04:00 [facility] POCT GLUCOSE (AUTOMATED) 2021-03-20 Lamine Duran [facility] ity of 17:46:00 [facility] POCT GLUCOSE (AUTOMATED) 2021-03-20 Lamine Duran [facility] it[facility] of 17:46:00 [facility] POCT GLUCOSE (AUTOMATED) 2021-03-20 Lamine Duran [facility] of 17:46:00 [facility] POCT GLUCOSE (AUTOMATED) 2021-03-20 Lamine Duran [facility] of 13:40:00 [facility] POCT GLUCOSE (AUTOMATED) 2021-03-20 Lamine Duran [facility] of 13:40:00 [facility] POCT GLUCOSE (AUTOMATED) 2021-03-20 Lamine Duran [facility] it[facility] of 13:40:00 [facility] BASIC METABOLIC PANEL (NA, K, CL, 2021-03-20 Eduard[facility] of CO2, GLUCOSE, BUN, CREATININE, 10:52:00 [facility] CBC WITH DIFF 2021-03-20 Eduard, [employer] of 10:52:00 [facility] BASIC METABOLIC PANEL (NA, K, CL, 2021-03-20 Eduard, [facility] of CO2, GLUCOSE, BUN, CREATININE, 10:52:00 [facility]) Branch CBC WITH DIFF 2021-03-20 Eduard, [facility] of 10:52:00 [facility] CBC WITH DIFF 2021-03-20 Eduard, [facility] of 10:52:00 [facility] BASIC METABOLIC PANEL (NA, K, CL, 2021-03-20 Eduard, [facility] of CO2, GLUCOSE, BUN, CREATININE, 10:52:00 [facility] Branch POCT GLUCOSE (AUTOMATED) 2021-03-19 Lamine Duran [facility] of 23:19:00 [facility] POCT GLUCOSE (AUTOMATED) 2021-03-19 Lamine Duran [facility] of 23:19:00 [facility] POCT GLUCOSE (AUTOMATED) 2021-03-19 Lamine Duran [facility] of 23:19:00 [facility] POCT GLUCOSE (AUTOMATED) 2021-03-19 Lamine Duran [facility] of 17:30:00 [facility] POCT GLUCOSE (AUTOMATED) 2021-03-19 Lamine Duran [facility] of 17:30:00 [facility] POCT GLUCOSE (AUTOMATED) 2021-03-19 Lamine Duran [facility] of 17:30:00 [facility] POCT GLUCOSE (AUTOMATED) 2021-03-19 Lamine Duran [facility] of 13:46:00 [facility] POCT GLUCOSE (AUTOMATED) 2021-03-19 Lamine Duran [facility] of 13:46:00 [facility] POCT GLUCOSE (AUTOMATED) 2021-03-19 Lamine Duran [facility] of 13:46:00 [facility] BASIC METABOLIC PANEL (NA, K, CL, 2021-03-19 [facility] CO2, GLUCOSE, BUN, CREATININE, 09:16:00 T [facility]) Branch BASIC METABOLIC PANEL (NA, K, CL, 2021-03-19 Eduard, [facility] CO2, GLUCOSE, BUN, CREATININE, 09:16:00 [facility] BASIC METABOLIC PANEL (NA, K, CL, 2021-03-19 Eduard, [facility] CO2, GLUCOSE, BUN, CREATININE, 09:16:00 [facility]) Branch POCT GLUCOSE (AUTOMATED) 2021-03-18 Lamine Duran [facility] of 23:19:00 [facility] POCT GLUCOSE (AUTOMATED) 2021-03-18 Lamine Duran [facility] of 23:19:00 [facility] POCT GLUCOSE (AUTOMATED) 2021-03-18 Lamine Duran [facility] of 23:19:00 [facility] POCT GLUCOSE (AUTOMATED) 2021-03-18 Lamine Duran [facility] of 17:40:00 [facility] POCT GLUCOSE (AUTOMATED) 2021-03-18 Lamine Duran [facility] of 17:40:00 [facility] POCT GLUCOSE (AUTOMATED) 2021-03-18 Lamine Duran [facility] of 17:40:00 [facility] POCT GLUCOSE (AUTOMATED) 2021-03-18 Lamine Duran [facility] of 13:50:00 [facility] POCT GLUCOSE (AUTOMATED) 2021-03-18 Lamine Duran [facility] of 13:50:00 [facility] POCT GLUCOSE (AUTOMATED) 2021-03-18 Lamine Duran [facility] of 13:50:00 [facility] MAGNESIUM 2021-03-18 Carline Chapa University of 09:50:00 [facility] BASIC METABOLIC PANEL (NA, K, CL, 2021-03-18 Eduard, Autumn armas [place] of CO2, GLUCOSE, BUN, CREATININE, 09:50:00 [facility]) [facility] CBC WITH DIFF 2021-03-18 Carline Chapa of 09:50:00 [facility] MAGNESIUM 2021-03-18 Carline Chapa [place] of 09:50:00 [facility] BASIC METABOLIC PANEL (NA, K, CL, 2021-03-18 Eduard, [facility] pawel [place] of CO2, GLUCOSE, BUN, CREATININE, 09:50:00 [facility] [facility] CBC WITH DIFF 2021-03-18 Carline Chapa [place] of 09:50:00 [facility] CBC WITH DIFF 2021-03-18 Eduard, Carline [place] of 09:50:00 [facility] BASIC METABOLIC PANEL (NA, K, CL, 2021-03-18 Autumn Chapa [place] of CO2, GLUCOSE, BUN, CREATININE, 09:50:00 [facility]) Branch MAGNESIUM 2021-03-18 Carline Chapa [place] of 09:50:00 [facility] POCT GLUCOSE (AUTOMATED) 2021-03-17 Lamine Duran [facility] it[facility] of 22:42:00 [facility] POCT GLUCOSE (AUTOMATED) 2021-03-17 Lamine Duran [facility] it[facility] of 22:42:00 [facility] POCT GLUCOSE (AUTOMATED) 2021-03-17 Lamine Duran [facility] of 22:42:00 [facility] POCT GLUCOSE (AUTOMATED) 2021-03-17 Lamine Duran [facility] it[facility] of 17:52:00 [facility] POCT GLUCOSE (AUTOMATED) 2021-03-17 Lamine Duran [facility] it[facility] of 17:52:00 [facility] POCT GLUCOSE (AUTOMATED) 2021-03-17 Lamine Duran [facility] of 17:52:00 [facility] POCT GLUCOSE (AUTOMATED) 2021-03-17 Lamine Duran [facility] it[facility] of 13:41:00 [facility] POCT GLUCOSE (AUTOMATED) 2021-03-17 Lamine Duran [facility] ity of 13:41:00 [facility] POCT GLUCOSE (AUTOMATED) 2021-03-17 Lamine Duran [facility] ity of 13:41:00 [facility] PHOSPHORUS 2021-03-17 Lamine Duran [place] of 10:23:00 [facility] MAGNESIUM 2021-03-17 [facility] 10:23:00 [facility] BASIC METABOLIC PANEL (NA, K, CL, 2021-03-17 Barak Duran [place] of CO2, GLUCOSE, BUN, CREATININE, 10:23:00 [facility] Branch LIPID PANEL (37930)(TOTAL 2021-03-17 Silas [facility] ersity of CHOLESTEROL, TRIGLYCERIDES, HDL) 10:23:00 [facility] CBC WITH DIFF 2021-03-17 Lamine Duran [place] of 10:23:00 [facility] PHOSPHORUS 2021-03-17 Lamine Duran [place] of 10:23:00 [facility] MAGNESIUM 2021-03-17 Lamine Duran [place] of 10:23:00 [facility] BASIC METABOLIC PANEL (NA, K, CL, 2021-03-17 Barak Duran [place] of CO2, GLUCOSE, BUN, CREATININE, 10:23:00 [facility] Branch LIPID PANEL (98030)(TOTAL 2021-03-17 Silas [facility] ersity of CHOLESTEROL, TRIGLYCERIDES, HDL) 10:23:00 [facility] CBC WITH DIFF 2021-03-17 Lamine Duran [place] of 10:23:00 [facility] LIPID PANEL ([id number])(TOTAL 2021-03-17 Silas [facility] ersity of CHOLESTEROL, TRIGLYCERIDES, HDL) 10:23:00 [facility] BASIC METABOLIC PANEL (NA, K, CL, 2021-03-17 Barak Duran [place] of CO2, GLUCOSE, BUN, CREATININE, 10:23:00 [facility]) [facility] CBC WITH DIFF 2021-03-17 Lamine Duran [place] of 10:23:00 [facility] MAGNESIUM 2021-03-17 AbdullahLamine of 10:23:00 [facility] PHOSPHORUS 2021-03-17 Lamine Duran University of 10:23:00 [facility] POCT GLUCOSE (AUTOMATED) 2021-03-16 Lamine Duran [facility] ity of 22:46:00 [facility] POCT GLUCOSE (AUTOMATED) 2021-03-16 Lamine Duran [facility] ity of 22:46:00 [facility] POCT GLUCOSE (AUTOMATED) 2021-03-16 Lamine Duran [facility] it[facility] of 22:46:00 [facility] POCT GLUCOSE (AUTOMATED) 2021-03-16 Lamine Duran [facility] ity of 18:05:00 [facility] POCT GLUCOSE (AUTOMATED) 2021-03-16 Lamine Duran [facility] ity of 18:05:00 [facility] POCT GLUCOSE (AUTOMATED) 2021-03-16 Lamine Duran ity of 18:05:00 [facility] BLOOD CULTURE SCREEN 2021-03-16 Saqib Hoffman [place] of 17:10:00 [facility] BLOOD CULTURE SCREEN 2021-03-16 Saqib Hoffman [place] of 17:10:00 [facility] BLOOD CULTURE SCREEN 2021-03-16 Saqib Hoffman [place] of 17:10:00 [facility] BLOOD CULTURE SCREEN 2021-03-16 Saqib Hoffman [place] of 17:04:00 [facility] BASIC METABOLIC PANEL (NA, K, CL, 2021-03-16 Barak Duran [facility] of CO2, GLUCOSE, BUN, CREATININE, 17:04:00 T ex [facility]) Branch BLOOD CULTURE SCREEN 2021-03-16 Saqib Hoffman [place] of 17:04:00 [facility] BASIC METABOLIC PANEL (NA, K, CL, 2021-03-16 Barak Duran [facility] of CO2, GLUCOSE, BUN, CREATININE, 17:04:00 [facility]) Branch BLOOD CULTURE SCREEN 2021-03-16 Saqib Hoffman [place] of 17:04:00 [facility] BASIC METABOLIC PANEL (NA, K, CL, 2021-03-16 Barak Duran [facility] of CO2, GLUCOSE, BUN, CREATININE, 17:04:00 [facility]) Branch POCT GLUCOSE (AUTOMATED) 2021-03-16 Lamine Duran [facility] ity of 13:40:00 [facility] POCT GLUCOSE (AUTOMATED) 2021-03-16 Lamine Duran [facility] ity of 13:40:00 [facility] POCT GLUCOSE (AUTOMATED) 2021-03-16 Lamine Duran Univers ity of 13:40:00 [facility] MAGNESIUM 2021-03-16 Saqib Hoffman [place] of 11:11:00 [facility] HEPATIC FUNCTION PANEL ([id number]) 2021-03-16 Lamine Duran [facility]iversity of (ALB,T.PRO,BILI 11:11:00 [place] [facility] T,BU/BC,ALT,AST,ALK PHOS) Branch BASIC METABOLIC PANEL (NA, K, CL, 2021-03-16 Barak Duran University of CO2, GLUCOSE, BUN, CREATININE, 11:11:00 [facility]) [facility] CBC WITH DIFF 2021-03-16 Lamine Duran of 11:11:00 [facility] GLYCOSYLATED HEMOGLOBIN (A1C) 2021-03-16 Lamine Duran Un iversity of 11:11:00 [facility] PROCALCITONIN 2021-03-16 Saqib Hoffman [place] of 11:11:00 [facility] MAGNESIUM 2021-03-16 Saqib Hoffman [place] of 11:11:00 [facility] HEPATIC FUNCTION PANEL (71204) 2021-03-16 Lamine Duran U niversity of (ALB,T.PRO,BILI 11:11:00 [place] [facility] T,BU/BC,ALT,AST,ALK PHOS) Branch BASIC METABOLIC PANEL (NA, K, CL, 2021-03-16 Barak Duran University of CO2, GLUCOSE, BUN, CREATININE, 11:11:00 [facility]) [facility] CBC WITH DIFF 2021-03-16 Lamine Duran of 11:11:00 [facility] GLYCOSYLATED HEMOGLOBIN (A1C) 2021-03-16 Laimne Duran Un iversity of 11:11:00 [facility] PROCALCITONIN 2021-03-16 Saqib Hoffman [place] of 11:11:00 [facility] CBC WITH DIFF 2021-03-16 Lamine Duran [place] of 11:11:00 [facility] BASIC METABOLIC PANEL (NA, K, CL, 2021-03-16 Barak Duran University of CO2, GLUCOSE, BUN, CREATININE, 11:11:00 T ex [facility] [place]) [place] HEPATIC FUNCTION PANEL ([id number]) 2021-03-16 Lamine Duran niversity of (ALB,T.PRO,BILI 11:11:00 [facility],BU/BC,ALT,AST,ALK PHOS) Branch PROCALCITONIN 2021-03-16 Yasmin [facility] of 11:11:00 [facility] MAGNESIUM 2021-03-16 [facility] of 11:11:00 [facility] GLYCOSYLATED HEMOGLOBIN (A1C) 2021-03-16 Lamine Duran iversity of 11:11:00 [facility] CT ABDOMEN PELVIS W WO CONTRAST 2021-03-16 Boubacar carranza [place] of 04:30:06 [facility] CT THORAX W WO CONTRAST 2021-03-16 [facility] sity of 04:30:06 [facility] CT ABDOMEN PELVIS W WO CONTRAST 2021-03-16 [facility] [place] of 04:30:06 [facility] CT THORAX W WO CONTRAST 2021-03-16 [facility] sity of 04:30:06 [facility] CT THORAX W WO CONTRAST 2021-03-16 [facility] of 04:30:06 [facility] CT ABDOMEN PELVIS W WO CONTRAST 2021-03-16 [facility] [place] of 04:30:06 [facility] POCT GLUCOSE (AUTOMATED) 2021-03-15 Lamine Duran [facility] ity of 21:34:00 [facility] POCT GLUCOSE (AUTOMATED) 2021-03-15 Lamine Duran [facility] ity of 21:34:00 [facility] POCT GLUCOSE (AUTOMATED) 2021-03-15 Lamine Duran [facility] ity of 21:34:00 [facility] URINALYSIS 2021-03-15 Cy Larsen [place] of 18:28:00 [facility] URINALYSIS 2021-03-15 Cy Larsen of 18:28:00 [facility] URINALYSIS 2021-03-15 Cy Larsen of 18:28:00 [facility] CT HEAD WO CONTRAST 2021-03-15 Cy Larsen o f 18:15:42 [facility] CT HEAD WO CONTRAST 2021-03-15 Cy Larsen o f 18:15:[address] [place] [facility] [address] HEAD WO CONTRAST 2021-03-15 Cy Larsen o f 18:15:42 [facility] XR CHEST 1 VW 2021-03-15 Cy Larsen of 18:15:12 [facility] XR CHEST 1 VW 2021-03-15 Cy Larsen of 18:15:12 [facility] XR CHEST 1 VW 2021-03-15 Cy Larsen of 18:15:12 [facility] CONSENT/REFUSAL FOR DIAGNOSIS AND 2021-03-15 [facility] 17:58:[address] [facility] CONSENT/REFUSAL FOR DIAGNOSIS AND 2021-03-15 [facility]in [facility] [facility] 17:58:[address] [facility] CONSENT/REFUSAL FOR DIAGNOSIS AND 2021-03-15 Doctor [facility]in [facility] 17:58:[address] [facility] COVID-19 (ID NOW RAPID TESTING) 2021-03-15 Cy Larsen [place] of 17:58:00 [facility] LAB ONLY COVID INTERPRETATION 2021-03-15 Cy Larsen Un iversity of 17:58:00 [facility] COVID-19 (ID NOW RAPID TESTING) 2021-03-15 Cy Larsen [place] of 17:58:00 [facility] LAB ONLY COVID INTERPRETATION 2021-03-15 Cy Larsen Un iversity of 17:58:00 [facility] COVID-19 (ID NOW RAPID TESTING) 2021-03-15 Cy Larsen [place] of 17:58:00 [facility] LAB ONLY COVID INTERPRETATION 2021-03-15 Cy Larsen Un iversity of 17:58:00 [facility] BLOOD CULTURE SCREEN 2021-03-15 Cy Larsen of 17:57:00 [facility] BLOOD CULTURE WORKUP 2021-03-15 Cy Larsen of 17:57:00 [facility] GRAM POSITIVE BLOOD PATHOGENS DNA 2021-03-15 Cy Larsen [facility] of [facility]BE-AEROBIC 17:57:00 [facility] BLOOD CULTURE SCREEN 2021-03-15 Cy Larsen [place] of 17:57:00 [facility] BLOOD CULTURE WORKUP 2021-03-15 Cy Larsen [place] of 17:57:00 [facility] GRAM POSITIVE BLOOD PATHOGENS DNA 2021-03-15 Cy Larsen [facility] of PROBE-AEROBIC 17:57:00 [facility] BLOOD CULTURE SCREEN 2021-03-15 Cy Larsen [place] of 17:57:00 [facility] BLOOD CULTURE WORKUP 2021-03-15 Cy Larsen of 17:57:00 [facility] GRAM POSITIVE BLOOD PATHOGENS DNA 2021-03-15 Cy Larsen [facility] of PROBE-AEROBIC 17:57:00 [facility] PHOSPHORUS 2021-03-15 Lamine Duran [place] of 17:56:00 [facility] MAGNESIUM 2021-03-15 Cy Larsen [place] of 17:56:00 [facility] TROPONIN I 2021-03-15 Cy Larsen [place] of 17:56:00 [facility] COMP. METABOLIC PANEL (97158) 2021-03-15 Cy Larsen Un iversity of 17:56:00 [facility] DIFF CONSULT INTERPRETATION 2021-03-15 Saqib Hoffman Univ ersity of 17:56:00 [facility] CBC WITH DIFF 2021-03-15 Cy Larsen [place] of 17:56:00 [facility] N-TERMINAL PRO-BNP 2021-03-15 Cy Larsen [place] of 17:56:00 [facility] AC PANEL 21 + LACTIC ACID 2021-03-15 Cy Larsen Univer sity of 17:56:00 [facility] PHOSPHORUS 2021-03-15 Lamine Duran [place] of 17:56:00 [facility] MAGNESIUM 2021-03-15 Cy Larsen of 17:56:00 [facility] TROPONIN I 2021-03-15 Cy Larsen of 17:56:00 [facility] COMP. METABOLIC PANEL (10367) 2021-03-15 Cy Larsen Un iversity of 17:56:00 [facility] DIFF CONSULT INTERPRETATION 2021-03-15 Saqib Hoffman [facility] ersity of 17:56:00 [facility] CBC WITH DIFF 2021-03-15 Cy Larsen of 17:56:00 [facility] N-TERMINAL PRO-BNP 2021-03-15 Cy Larsen of 17:56:00 [facility] AC PANEL 21 + LACTIC ACID 2021-03-15 Cy Larsen Univer sity of 17:56:00 [facility] N-TERMINAL PRO-BNP 2021-03-15 Cy Larsen of 17:56:00 [facility] CBC WITH DIFF 2021-03-15 Cy Larsen of 17:56:00 [facility] COMP. METABOLIC PANEL (12265) 2021-03-15 Cy Larsen Un iversity of 17:56:00 [facility] MAGNESIUM 2021-03-15 Cy Larsen of 17:56:00 [facility] TROPONIN I 2021-03-15 Cy Larsen of 17:56:00 [facility] AC PANEL 21 + LACTIC ACID 2021-03-15 Cy Larsen Univer sity of 17:56:00 [facility] PHOSPHORUS 2021-03-15 Lamine Duran [place] of 17:56:00 [facility] DIFF CONSULT INTERPRETATION 2021-03-15 Saqib Hoffman [facility] ersity of 17:56:00 [facility] HB ECG ROUTINE & RHYTHM STRIP 2021-03-15 Cy Larsen Un iversity of 17:50:45 [facility] HB ECG ROUTINE & RHYTHM STRIP 2021-03-15 Cy Larsen Un iversity of 17:50:45 [facility] HB ECG ROUTINE & RHYTHM STRIP 2021-03-15 Cy Larsen Un iversity of 17:50:45 [facility] HOSPITAL ADMISSION 2021-03-15 Doctor Unasscelestina, [place] 06:01:[address] [facility] EMERGENCY DEPARTMENT DOCUMENTS 2021-03-15 Doctor Unasscelestina , [facility] 06:01:[address] [facility] HOSPITAL ADMISSION 2021-03-15 Doctor Unasscelestina, [facility] 06:01:[address] [facility] HOSPITAL ADMISSION 2021-03-15 Doctor Unasscelestina, [facility] 06:01:[address] [facility] URINALYSIS 2021-03-12 Keenan, [facility] of 21:28:00 [facility] XR CHEST 1 VW 2021-03-12 Keenan, [facility] of 19:27:04 [facility] CT HEAD WO CONTRAST 2021-03-12 Singer [facility] o f 19:09:59 [facility] CBC WITH DIFF 2021-03-12 Keenan, [facility] of 18:55:00 [facility] COMP. METABOLIC PANEL ([id number]) 2021-03-12 Antonio Keenan iversity of 18:55:00 [facility] N-TERMINAL PRO-BNP 2021-03-12 [facility] of 18:55:00 [facility] TROPONIN I 2021-03-12 Keenan, [facility] of 18:55:00 [facility] COVID-19 (ID NOW RAPID TESTING) 2021-03-12 Singer [facility] of 18:55:00 [facility] LAB ONLY COVID INTERPRETATION 2021-03-12 Antonio Keenan iversity of 18:55:00 [facility] HB ECG ROUTINE & RHYTHM STRIP 2021-03-12 Antonio Keenan iversity of 18:44:43 [facility] NOTICE OF PRIVACY PRACTICES 2021-03-12 Doctor Unasscelestina, U niversity of 18:40:[address] [facility] CONSENT/REFUSAL FOR DIAGNOSIS AND 2021-03-12 Doctor Cadyssgénesis cardona [facility] 18:38:[address] [facility] INSURANCE CORRESPONDENCE 2021-03-10 Doctor Unassigned, Univ ersity of 06:01:[address] [facility] INSURANCE CORRESPONDENCE 2021-03-09 Doctor Unassigned, Univ ersity of 06:01:[address] [facility] HYPERCOAGULABLE EVALUATION-LT 2021-03-03 Jia Santamaria Un iversity of BLUE 16:12:00 [facility] HYPERCOAGULABLE EVALUATION - SST 2021-03-03 Jia Santamaria [place] 16:12:00 [facility] HYPERCOAGULABLE EVALUATION-LAV 2021-03-03 Jia Santamaria U niversity of 16:12:00 [facility] BASIC METABOLIC PANEL (NA, K, CL, 2021-03-03 Jia Santamaria [place] of CO2, GLUCOSE, BUN, CREATININE, 16:12:00 [facility] VITAMIN B1 (THIAMINE), WHOLE 2021-03-03 Jia Santamaria Uni versity of BLOOD 16:12:00 [facility] HEMATOCRIT 2021-03-03 Jia Santamaria [facility] 16:12:00 [facility] RPR (QUANTITATIVE) 2021-03-03 Jia Santamaria [place] 16:12:00 [facility] VITAMIN B12, LEVEL 2021-03-03 Jia Santamaria [place] 16:12:00 [facility] HYPERCOAGULABLE TESTS AND 2021-03-03 Jia Santamaria [facility] of EVALUATION 16:12:00 [facility] SEDIMENTATION RATE 2021-03-03 Jia Santamaria [place] 16:12:00 [facility] C-REACTIVE PROTEIN 2021-03-03 Jia Santamaria [place] 16:12:00 [facility] FOLATE 2021-03-03 Jia Santamaria [place] 16:12:00 [facility] WB FOLATE 2021-03-03 Jia Santamaria [place] 16:12:00 [facility] FACTOR 5 LEIDEN 2021-03-03 Jia Santamaria [place] 16:12:00 [facility] FACTOR 2 [id number] MUTATION 2021-03-03 Jia Santamaria [facility] sity of 16:12:00 [facility] ANTICARDIOLIPIN ANTIBODIES 2021-03-03 [facility] 16:12:00 [facility] ANTI-B2 GLYCOPROTEIN I AB 2021-03-03 Jia Santamaria [facility] sity of 16:12:00 [facility] PROTEIN C ACTIVITY 2021-03-03 Jia Santamaria [place] 16:12:00 [facility] FREE PROTEIN S 2021-03-03 Jia Santamaria [place] 16:12:00 [facility] ANTITHROMBIN ACTIVITY 2021-03-03 Jia Santamaria [place] 16:12:00 [facility] FIBRINOGEN 2021-03-03 Rosalio Jia [facility] 16:12:00 [facility] MISCELLANEOUS SEND OUT TEST 2021-03-03 Jia Santamaria [facility] ersity of 16:12:00 [facility] DIAGNOSTIC MANAGEMENT TEAM; 2021-03-03 Jia Santamaria [facility] ersity of SPECIAL COAGULATION EVALUATION 16:12:00 [facility] CARDIAC DEVICE CHECK - NURSE - 2021-02-26 Chad Cheng [facility] INTERROGATION LOOP RECORDER 17:43:00 [facility] PATIENT FINANCIAL POLICY 2021-02-26 Doctor Koroma [facility] 06:01:[address] [facility] CONSENT/REFUSAL FOR DIAGNOSIS AND 2021-02-26 Doctor Tenzin cardona, [place] of TREATMENT 06:01:[address] [facility] NO SHOW OR MISSED APPOINTMENT 2021-02-26 Doctor Franci, [facility] POLICY ACKNOWLEDGEMENT 06:01:00 Mabie [facility] NOTICE OF BILLING PRACTICES FOR 2021-02-26 Doctor Kathleen barrientos [place] of MEDICARE PATIENTS 06:01:[address] [facility] POWER OF SENIOR QUALITY ASSURANCE ANALYST 2021-02-26 Doctor Koroma [facility] 06:01:[address] [facility] ASSIGNMENT OF BENEFITS 2021-02-26 Doctor Franci [facility] of 06:01:[address] [facility] POCT GLUCOSE (AUTOMATED) 2021-02-11 Marcel Concepcion [facility] ity of 01:22:00 [facility] POCT GLUCOSE (AUTOMATED) 2021-02-10 Marcel Concepcion [facility] ity of 21:24:00 [facility] POCT GLUCOSE (AUTOMATED) 2021-02-10 Michael, Marcel [facility] ity of 16:57:00 [facility] POCT GLUCOSE (AUTOMATED) 2021-02-10 Michael, Marcel [facility] ity of 12:40:00 [facility] POCT GLUCOSE (AUTOMATED) 2021-02-10 Michael, Marcel [facility] ity of 01:02:00 [facility] POCT GLUCOSE (AUTOMATED) 2021-02-09 Michael, Marcel [facility] ity of 23:01:00 [facility] TRANSESOPHAGEAL ECHO (JESSICA) 2021-02-09 She [facility] rsity of COMPLETE W/ DOPPLER AND COLOR 20:55:00 [facility] ([facility]OMATED) 2021-02-09 Michael, Marcel Univers ity of 16:49:00 [facility] POCT GLUCOSE (AUTOMATED) 2021-02-09 Michael, Marcel [facility] ity of 12:33:00 [facility] PROTHROMBIN TIME / INR 2021-02-09 Zuly [facility] y of 08:56:00 [facility] BASIC METABOLIC PANEL (NA, K, CL, 2021-02-[address] [facility] of CO2, GLUCOSE, BUN, CREATININE, 08:56:00 T [facility] [place]) Branch MAGNESIUM 2021-02-[address] [facility] of 08:56:00 [facility] DISCLOSURE AND CONSENT, MEDICAL 2021-02-09 Doctor Kathleen barrientos, [place] of AND SURGICAL PROCEDURES 05:01:00 Mabie [facility] POCT GLUCOSE (AUTOMATED) 2021-02-09 Michael, Marcel Univers ity of 01:30:00 [facility] POCT GLUCOSE (AUTOMATED) 2021-02-08 Michael, Marcel Univers ity of 22:08:00 [facility] MR BRAIN W WO CONTRAST 2021-02-08 [facility] y of 19:08:00 [facility] POCT GLUCOSE (AUTOMATED) 2021-02-08 Michael, Marcel Univers ity of 16:53:00 [facility] CBC WITH DIFF 2021-02-[address] [facility] of 14:49:00 [facility] BASIC METABOLIC PANEL (NA, K, CL, 2021-02-08 [facility] CO2, GLUCOSE, BUN, CREATININE, 14:49:00 T [facility]) Branch MAGNESIUM 2021-02-08 Zuly, [facility] of 14:49:00 [facility] POCT GLUCOSE (AUTOMATED) 2021-02-08 Michael, [facility] ity of 14:20:00 [facility] POCT GLUCOSE (AUTOMATED) 2021-02-08 [facility], [facility] ity of 00:50:00 [facility] POCT GLUCOSE (AUTOMATED) 2021-02-07 [facility], [facility] ity of 22:07:00 [facility] POCT GLUCOSE (AUTOMATED) 2021-02-07 [facility], [facility] ity of 17:37:00 [facility] POCT GLUCOSE (AUTOMATED) 2021-02-07 [facility], [facility] ity of 14:30:00 [facility] LIPID PANEL (37371)(TOTAL 2021-02-[facility] Univer sity of CHOLESTEROL, TRIGLYCERIDES, HDL) 09:04:00 [facility] URIC ACID 2021-02-07 [facility] of 09:04:00 [facility] THYROID STIMULATING HORMONE 2021-02-07 [facility] ersity of 09:04:00 [facility] POCT GLUCOSE (AUTOMATED) 2021-02-07 [facility] ity of 01:12:00 [facility] CT THORAX W CONTRAST 2021-02-06 [facility] 23:35:22 [facility] EXTRA TUBE SST 2021-02-06 [facility] of 23:08:00 [facility] LIPID PANEL (11696)(TOTAL 2021-02-06 [facility] Univer sity of CHOLESTEROL, TRIGLYCERIDES, HDL) 23:08:00 [facility] GLYCOSYLATED HEMOGLOBIN (A1C) 2021-02-06, Un iversity of 23:08:00 [facility] VERIFYNOW PRUTEST (P2Y12) 2021-02-[facility] Univer sity of 23:08:00 [facility] OSMOLALITY, SERUM OR PLASMA 2021-02-06, Univ ersity of 23:08:00 [facility] XR CHEST 2 VW 2021-02-06 Shine Oliav [place] of 17:09:00 [facility] URINALYSIS 2021-02-06 Shine Oliva [place] of 16:05:00 [facility] URINE DRUG (IMMUNOASSAY) - 2021-02-06 Shine Oliva Un iversity of COMPREHENSIVE DRUG SCREEN W/O 16:05:00 [facility], URINE RANDOM 2021-02-06 [facility], [facility] 16:05:00 [facility] OSMOLALITY URINE 2021-02-06 [facility], [facility] 16:05:00 [facility] CT HEAD WO CONTRAST 2021-02-06 [facility]ine [facility]iva [facility] of 15:48[facility]02 [facility] CT STROKE ANGIOGRAM HEAD 2021-02-06 Shine Oliva [facility] ersity of 15:48:02 [facility] CT STROKE ANGIOGRAM NECK 2021-02-06 Shine Oliva [facility] ersity of 15:48:02 [facility] CBC WITH DIFF 2021-02-06 Shine Oliva [place] of 15:23:00 [facility] COMP. METABOLIC PANEL (90104) 2021-02-06 Shine Oliva [place] of 15:23:00 [facility] TROPONIN I 2021-02-06 Shine Oliva [place] of 15:23:00 [facility] N-TERMINAL PRO-BNP 2021-02-06 Shine Oliva [place] of 15:23:00 [facility] COVID-19 (ID NOW RAPID TESTING) 2021-02-06 Todd Oliva [place] of 15:23:00 [facility] LAB ONLY COVID INTERPRETATION 2021-02-06 Shine Oliva [place] of 15:23:00 [facility] GLYCOSYLATED HEMOGLOBIN (A1C) 2021-02-06 [facility], iversity of 15:23:00 [facility] VITAMIN B12, LEVEL 2021-02-06 [facility] of 15:23:00 [facility] HB ECG ROUTINE & RHYTHM STRIP 2021-02-06 Shine Oliva [facility] 14:59:04 [facility] CONSENT/REFUSAL FOR DIAGNOSIS AND 2021-02-06 Doctor Tenzin cardona, [facility] 14:35:[address] [facility] HOSPITAL ADMISSION 2021-02-06 Doctor Franci [facility] 05:01:[address] [facility] Encounters Start End Encounter Admission Attending Care Care Encounter Source Date/Time Date/Time Type Type Clinicians Facility Department ID 2021-05-05 2021-05-05 [facility] [id number] Univers 12:00:00 12:00:[id number] [facility] 2021-05-05 2021-05-05 [facility] [id number] Univers 12:00:00 12:00:00 JIA [facility] 2021-05-04 2021-05-04 Letter [facility] [id number] Univers 00:00:00 00:00:00 (Out) [facility] HEALTH [id number] it y of [place]AR 4.2.7.2.686 [place] a REYES [id number] [address] OFFICE BUILDING 2021-04-16 2021-04-16 Telephone [facility] [id number] Univers 00:00:00 00:00:00 [facility] HEALTH [id number] it y of [place]AR 4.2.7.2.686 [place] a REYES [id number] [address] OFFICE BUILDING 2021-03-15 2021-04-07 Inpatient U SANTAMARIARUST TAYLOR [id number] Univers 11:49:00 17:17:00 JIA ity [facility] 2021-03-15 2021-04-07 Hospital Laura Peck 1.2.84 [id number] Univers 11:49:00 17:17:00 Encounter Cy Larsen [id number] ity of [facility] 4.2.7.2.686 [place] Maritza Fajardo [facility] [id number] Medical [facility], Marcel 098 Br anch Jia Santamaria 2021-03-30 2021-03-30 Surgery Parelly, [facility] 1.2.840.114 [id number] Univers 09:03:00 10:22:00 Clyde GOODMANL [id number] it y of SCIENCES 4.2.7.2.686 [place] as BLDG [id number] Medi jaspal 020 Branch 2021-03-27 2021-03-27 Anesthesia Jim Lorenzo 1.2.840 .8 [id number] Univers 12:34:00 15:06:00 Event Martina Fowler 11311.1.1 ity of 3.104.2.7 [place] .3.672138 Medica l .8 Branch 2021-03-20 2021-03-20 Travel 1.2.840.1 [id number] Univers 00:00:00 00:00:00 [id number] 350.1.13.10 ity of 3.104.2.7 4[place]7.3.698 [place] .3.453209 084.8 Medica l .8 Branch 2021-03-18 2021-03-18 Patient Rosalio, 1.2.840.1 [id number] Univers 00:00:00 00:00:00 Secure Msg Jia 75632.1.1 i ty of [facility] 3.104.2.7 [place] .3.341745 Medica l .8 Branch 2021-03-15 2021-03-15 Travel 1.2.840.1 [id number] Univers 00:00:00 00:00:00 51312.1.1 350.1.13.10 ity of 3.104.2.7 4.2.7.3.698 [place] .3.176902 084.8 Medica l .8 Branch 2021-03-12 2021-03-12 Emergency Keenan, 1.2.840.8 [id number] Univers 12:41:00 16:45:00 Antonio 25945.1.1 ity of 3.104.2.7 [place] .3.088738 Medica l .8 Branch 2021-03-12 2021-03-12 Travel 1.2.840.1 [id number] [id number] Univers 00:00:00 00:00:00 [id number] 350.1.13.10 ity of 3.104.2.7 4.2.7.3.698 [place] .3.778220 084.8 Medica l .8 [place] 2021-03-10 2021-03-10 Orders Doctor ARMEN 1.2.840.114 [id number] Univers 00:00:00 00:00:00 Only Unassigned, FREDDY [id number] ity of [place] [facility] 4.2.7.2.686 [place] as [id number] [facility] 009 [place] 2021-03-10 2021-03-10 Case Herminio, 1.2.840.5 [id number] Univers 00:00:00 00:00:00 Management Salik 10392.1.1 i ty of 3.104.2.7 [place] .3.426524 Medica l .8 [place] 2021-03-10 2021-03-10 Patient Doctor 1.2.840.6 [id number] Univers 00:00:00 00:00:00 Secure Msg Unassigned, 22573.1.1 ity of [place] 3.104.2.7 [place] .3.654262 Medica l .8 [place] 2021-03-04 2021-03-04 Telephone Santamaria, 1.2.840.0 [id number] Univers 00:00:00 00:00:00 Jia 83256.1.1 ity of [place] 3.[place].2.7 [place] .3.672533 Medica l .8 [place] 2021-03-03 2021-03-03 Workers Compensation Coordinator Jia Santamaria 1 .2.840.6 [id number] Univers 10:00:00 10:05:36 Visit [facility] 09113.1.1 ity of 3.104.2.7 [place] .3.847964 Medica l .8 Branch 2021-03-03 2021-03-03 Office Adonis Scott 1.2.840.1 [id number] Univers 09:30:00 10:00:00 Visit Mare [place] 22664.1.1 ity of 3.104.2.7 [place] .3.425390 Medica l .8 Branch 2021-03-03 2021-03-03 Telephone Santamaria, 1.2.840.8 [id number] Univers 00:00:00 00:00:00 Jia 57074.1.1 ity of [place] 3.[place].2.7 [place] .3.160962 Medica l .8 Branch 2021-03-02 2021-03-02 Office Santamaria, 1.2.840.6 [id number] [facility] 11:00:00 12:00:00 Visit Jia 44087.1.1 ity of [place] 3.[place].2.7 [place] .3.320151 Medica l .8 Branch 2021-02-26 2021-02-26 [facility], 1.2.840.4 [id number] Univers 11:00:00 23:59:00 Encounter Chad 86074.1.1 ity of 3.104.2.7 [place] .3.919583 Medica l .8 Branch 2021-02-26 2021-02-26 Travel 1.2.840.1 [id number] [id number] Univers 00:00:00 00:00:00 71205.1.1 350.1.13.10 ity of 3.104.2.7 4.2.7.3.698 [place] .3.304752 084.8 Medica l .8 Branch 2021-02-11 2021-02-11 [facility], 1.2.840.0 [id number] Univers 00:00:00 00:00:00 of Fatuma Rubio 46205.1.1 ity of 3.104.2.7 [place] .3.415611 Medica l .8 Branch 2021-02-06 2021-02-10 Hospital Esther Lara 1.2.840.1 [id number] Univers 09:34:00 21:22:00 Encounter Marcel Concepcion 06761.1.1 ity of 3.104.2.7 [place] .3.940411 Medica l .8 Branch 2021-02-10 2021-02-10 Anesthesia Aly, 1.2.840.5 [id number] Univers 15:59:40 15:59:40 Event Chloe Rubio 75255.1.1 ity of 3.104.2.7 [place] .3.180718 Medica l .8 Branch 2021-02-06 2021-02-06 Travel 1.2.840.1 1.2.553.652 9900 [id number] Univers 00:00:00 00:00:00 21393.1.1 350.1.13.10 ity of 3.104.2.7 4.[place].3.698 [place] .3.136466 084.8 Medica l .8 Branch 2021-01-07 2021-01-07 Inpatient 3 DOV, [facility] [id number] 10:57:00 23:59:00 NITHYA NAM L ukes - N, [address] BYPASS, [place]LUF[place] [address] 2021-01-07 2021-01-07 [id number] 12:00:00 15:15:00 [facility]/SA[facility] 2021-01-07 2021-01-07 Inpatient [facility] [id number] [facility] 00:00:00 00:00:00 ANTONIA NAM [id number] [facility], [id number] [id number] l BYPASS, (LUF/[place] [address] 2021-01-07 2021-01-07 Inpatient [facility] [id number] -[id number] [facility] 00:00:00 00:00:00 ANTONIA NAM [phone] [phone] [facility], [phone] 40[address]166 l BYPASS, (LUF/[place] [address] 2018 2018 ESSENTIAL O [place], [facility] [id number] 10:42:00 23:59:00 PRIMARY NITHYA Spears ukes - HYPERTENSI N, [address] l BYPASS, (LUF/[place] [address] Results Test Description Test Time Test Comments Results Result Comments Source POCT GLUCOSE (AUTOMATED) 2021-04-07 17:19:06 Test Item Value Reference Range Interpretation Comme nts POCT GLU (test code = 5510174382) 91 mg/dL 70-110 Lab Interpretation (test code = 72657-1) Normal [facility]. Sendout- anca vasculitis [id number] 2021-04-07 14:16:32 Test Item Value Reference Range Interpretation Comments Miscellaneous Test (test See scanned report code = 1404633157) Performing Lab (test code ARUP = 1587642263) [facility] GLUCOSE (AUTOMATED)2021-04-07 13:15:52 Test Item Value Reference Range Interpretation Comments POCT GLU (test code = 2512094636) 99 mg/dL 70-110 Lab Interpretation (test code = Normal 36978-8) [facility] GLUCOSE (AUTOMATED)2021-04-06 22:48:34 Test Item Value Reference Range Interpretation Comments POCT GLU (test code = 0756761452) 118 mg/dL 70-110 H Lab Interpretation (test code = Abnormal 61481-7) [facility] GLUCOSE (AUTOMATED)2021-04-06 16:57:15 Test Item Value Reference Range Interpretation Comments POCT GLU (test code = 6718207135) 140 mg/dL 70-110 H Lab Interpretation (test code = Abnormal 56132-3) [facility]. Sendout- [id number] : [id number] 15:11:18 Test Item Value Reference Range Interpretation Comments Miscellaneous Test (test See scanned report code = 1406663627) Performing Lab (test code ARUP = 4417938965) [facility]. Sendout- [id number] : HSV by [id number] 14:58:33 Test Item Value Reference Range Interpretation Comments Miscellaneous Test (test See scanned report code = 2732462134) Performing Lab (test code ARUP = 7905152398) [facility]. Sendout- anca vasculitis [id number] 2021-04-06 14:56:02 Test Item Value Reference Range Interpretation Comments Miscellaneous Test (test See scanned report code = 6985585214) Performing Lab (test code ARUP = 2962047993) [facility] GLUCOSE (AUTOMATED)2021-04-06 14:06:38 Test Item Value Reference Range Interpretation Comments POCT GLU (test code = 3150752540) 132 mg/dL 70-110 H Lab Interpretation (test code = Abnormal 62091-3) [facility] METABOLIC PANEL (NA, K, CL, CO2, GLUCOSE, BUN, CREATININE, CA)2021-04-06 11:32:12 Test Item Value Reference Range Interpretation Comments NA (test code = 129 mmol/L 135-145 L 8756104887) K (test code = 4.2 mmol/L 3.5-5.0 5305913221) CL (test code = 101 mmol/L 98-108 1375356063) CO2 TOTAL (test code = 24 mmol/L 23-31 7325438627) AGAP (test code = 2-16 0475848883) BUN (test code = 13 mg/dL 7-23 6028980870) GLUCOSE (test code = 132 mg/dL 70-110 H 7848788590) CREATININE (test code = 0.54 mg/dL 0.60-1.25 L 7275206620) CALCIUM (test code = 8.8 mg/dL 8.6-10.6 5690524403) eGFR (test code = mL/min/1.73m2 5672537199) POP (test code = POP) Association of [...] tests). Lab Interpretation Abnormal (test code = 39421-6) [facility] WITH [id number] 11:05:49 Test Item Value Reference Range Interpretation Comments WBC (test code = See_Comment [Automated 3490-2) message] The sy stem which generated this result transmitted reference range : 4.20 - 10.70 10*3/?L. The reference range was not used to interpret this result as normal/abnormal . RBC (test code = See_Comment L [Automated 709-8) message] The sy stem which generated this [...] (test code = 55.3 fL 38.5-51.6 H 26453-5) RDW-CV (test code = 15.7 % 12.1-15.4 H 788-0) PLT (test code = See_Comment H [Automated 777-3) message] The sy stem which generated this result transmitted reference range : 150 - 328 10*3/ ?L. The reference r jalen was not used to interpret this result as normal/abnormal . MPV (test code = 9.1 fL 9.8-13.0 L 23976-2) NRBC/100 WBC (test See_Comment [Automat ed code = 7565678964) message] The system which generated this result transmitted reference range : 0.0 - 10.0 /100 WBCs. The refer ence range was not u sed to interpret th is result as normal/abnormal . NRBC x10^3 (test code <0.01 See_Comment [Auto mated = 6604752450) message] The s ystem which generated this result transmitted reference range : 10*3/?L. The reference range was not used to interpret this result as normal/abnormal . GRAN MAT (NEUT) % 76.7 % (test code = 770-8) IMM GRAN % (test code 0.40 % = 1917786465) LYMPH % (test code = 13.1 % 736-9) MONO % (test code = 6.8 % 5905-5) EOS % (test code = 2.5 % 713-8) BASO % (test code = 0.5 % 706-2) GRAN MAT x10^3(ANC) 7.87 10*3/uL 1.99-6.95 H (test code = 5685093030) IMM GRAN x10^3 (test 0.04 10*3/uL 0.00-0.06 code = 0366852324) LYMPH x10^3 (test code 1.34 10*3/uL 1.09-3.23 = 731-0) MONO x10^3 (test code 0.70 10*3/uL 0.36-1.02 = 742-7) EOS x10^3 (test code = 0.26 10*3/uL 0.06-0.53 711-2) BASO x10^3 (test code 0.05 10*3/uL 0.01-0.09 = 704-7) Lab Interpretation Abnormal (test code = 98986-2) [facility] [id number] 01:10:10ANA - Pathologist InterpretationANA HEp-2 IIFA Pathologist [...] thyroid disease, discoid lupus, and fibromyalgia. (https:// pubmed.ncbi.nlm.nih.gov/08934925/, https://pubmed.ncbi.nlm.nih.gov/43299462/) ? ? Therefore, a diagnosis cannot be based exclusively on JIM detection and/or pattern and thus should be made via the integration of patient history, physical exam findings, and other diagnostic tests as clinically indicated. Lillie Goldberg MD ?04/05/2021 ?7:09 [facility]2021-04-05 21:40:00 Test Item Value Reference Range Interpretation Comments POCT GLU (test code = 2531691097) 132 mg/dL 70-110 H Lab Interpretation (test code = Abnormal 83336-0) [facility] GLUCOSE (AUTOMATED)2021-04-05 18:10:53 Test Item Value Reference Range Interpretation Comments POCT GLU (test code = 9567888399) 138 mg/dL 70-110 H Lab Interpretation (test code = Abnormal 82538-1) [facility] GLUCOSE (AUTOMATED)2021-04-05 14:04:11 Test Item Value Reference Range Interpretation Comments POCT GLU (test code = 7878234909) 116 mg/dL 70-110 H Lab Interpretation (test code = Abnormal 94806-9) [facility] GLUCOSE (AUTOMATED)2021-04-04 21:41:22 Test Item Value Reference Range Interpretation Comments POCT GLU (test code = 9961118142) 137 mg/dL 70-110 H Lab Interpretation (test code = Abnormal 17142-1) [facility] GLUCOSE (AUTOMATED)2021-04-04 18:08:49 Test Item Value Reference Range Interpretation Comments POCT GLU (test code = 2591125899) 152 mg/dL 70-110 H Lab Interpretation (test code = Abnormal 20518-0) [facility] GLUCOSE (AUTOMATED)2021-04-04 14:08:44 Test Item Value Reference Range Interpretation Comments POCT GLU (test code = 2312084441) 133 mg/dL 70-110 H Lab Interpretation (test code = Abnormal 67804-1) [facility] GLUCOSE (AUTOMATED)2021-04-04 01:42:09 Test Item Value Reference Range Interpretation Comments POCT GLU (test code = 7245928751) 150 mg/dL 70-110 H Lab Interpretation (test code = Abnormal 29317-8) [facility] GLUCOSE (AUTOMATED)2021-04-03 22:52:45 Test Item Value Reference Range Interpretation Comments POCT GLU (test code = 6175802624) 139 mg/dL 70-110 H Lab Interpretation (test code = Abnormal 85815-0) [facility] WITH [id number] 21:30:06 Test Item Value Reference Range Interpretation [...] (test code = 58.4 fL 38.5-51.6 H 50134-2) RDW-CV (test code = 16.6 % 12.1-15.4 H 788-0) PLT (test code = See_Comment H [Automated 777-3) message] The sy stem which generated this result transmitted reference range : 150 - 328 10*3/ ?L. The reference r jalen was not used to interpret this result as normal/abnormal . MPV (test code = 9.2 fL 9.8-13.0 L 98255-1) NRBC/100 WBC (test See_Comment [Automat ed code = 9370434763) message] The system which generated this result transmitted reference range : 0.0 - 10.0 /100 WBCs. The refer ence range was not u sed to interpret th is result as normal/abnormal . NRBC x10^3 (test code <0.01 See_Comment [Auto mated = 8176192086) message] The s ystem which generated this result transmitted reference range : 10*3/?L. The reference range was not used to interpret this result as normal/abnormal . GRAN MAT (NEUT) % 78.6 % (test code = 770-8) IMM GRAN % (test code 0.40 % = 8541880427) LYMPH % (test code = 11.9 % 736-9) MONO % (test code = 6.2 % 5905-5) EOS % (test code = 2.5 % 713-8) BASO % (test code = 0.4 % 706-2) GRAN MAT x10^3(ANC) 8.91 10*3/uL 1.99-6.95 H (test code = 3232868166) IMM GRAN x10^3 (test 0.05 10*3/uL 0.00-0.06 code = 3334111563) LYMPH x10^3 (test code 1.35 10*3/uL 1.09-3.23 = 731-0) MONO x10^3 (test code 0.70 10*3/uL 0.36-1.02 = 742-7) EOS x10^3 (test code = 0.28 10*3/uL 0.06-0.53 711-2) BASO x10^3 (test code 0.04 10*3/uL 0.01-0.09 = 704-7) Lab Interpretation Abnormal (test code = 77114-8) [facility] GLUCOSE (AUTOMATED)2021-04-03 18:48:37 Test Item Value Reference Range Interpretation Comments POCT GLU (test code = 4468747967) 111 mg/dL 70-110 H Lab Interpretation (test code = Abnormal 38606-0) [facility] GLUCOSE (AUTOMATED)2021-04-03 13:33:21 Test Item Value Reference Range Interpretation Comments POCT GLU (test code = 0863767293) 105 mg/dL 70-110 Lab Interpretation (test code = Normal 77440-2) [facility] METABOLIC PANEL (NA, K, CL, CO2, GLUCOSE, BUN, CREATININE, CA)2021-04-03 00:52:56 Test Item Value Reference Range Interpretation Comments NA (test code = 132 mmol/L 135-145 L 6490773289) K (test code = 4.3 mmol/L 3.5-5.0 5554780358) CL (test code = 103 mmol/L 98-108 1865737485) CO2 TOTAL (test code = 22 mmol/L 23-31 L 4683751344) AGAP (test code = 2-16 3668785346) BUN (test code = 11 mg/dL 7-23 9136954765) GLUCOSE (test code = 157 mg/dL 70-110 H 6478337427) CREATININE (test code = 0.67 mg/dL 0.60-1.25 3744937156) CALCIUM (test code = 8.6 mg/dL 8.6-10.6 7919858388) eGFR (test code = mL/min/1.73m2 5010600267) POP (test code = POP) Association of [...] tests). Lab Interpretation Abnormal (test code = 48970-4) [facility] GLUCOSE (AUTOMATED)2021-04-02 23:31:51 Test Item Value Reference Range Interpretation Comments POCT GLU (test code = 1393911318) 148 mg/dL 70-110 H Lab Interpretation (test code = Abnormal 55860-6) [facility] WITH [id number] 23:25:07 Test Item Value Reference Range Interpretation [...] (test code = 61.1 fL 38.5-51.6 H 59723-5) RDW-CV (test code = 17.0 % 12.1-15.4 H 788-0) PLT (test code = See_Comment H [Automated 777-3) message] The sy stem which generated this result transmitted reference range : 150 - 328 10*3/ ?L. The reference r jalen was not used to interpret this result as normal/abnormal . MPV (test code = 9.1 fL 9.8-13.0 L 26244-2) NRBC/100 WBC (test See_Comment [Automat ed code = 5859463544) message] The system which generated this result transmitted reference range : 0.0 - 10.0 /100 WBCs. The refer ence range was not u sed to interpret th is result as normal/abnormal . NRBC x10^3 (test code <0.01 See_Comment [Auto mated = 0752665785) message] The s ystem which generated this result transmitted reference range : 10*3/?L. The reference range was not used to interpret this result as normal/abnormal . GRAN MAT (NEUT) % 79.7 % (test code = 770-8) IMM GRAN % (test code 0.40 % = 7026942596) LYMPH % (test code = 10.7 % 736-9) MONO % (test code = 7.0 % 5905-5) EOS % (test code = 1.8 % 713-8) BASO % (test code = 0.4 % 706-2) GRAN MAT x10^3(ANC) 8.26 10*3/uL 1.99-6.95 H (test code = 1455756871) IMM GRAN x10^3 (test 0.04 10*3/uL 0.00-0.06 code = 4090982284) LYMPH x10^3 (test code 1.11 10*3/uL 1.09-3.23 = 731-0) MONO x10^3 (test code 0.73 10*3/uL 0.36-1.02 = 742-7) EOS x10^3 (test code = 0.19 10*3/uL 0.06-0.53 711-2) BASO x10^3 (test code 0.04 10*3/uL 0.01-0.09 = 704-7) Lab Interpretation Abnormal (test code = 47203-7) [facility] GLUCOSE (AUTOMATED)2021-04-02 19:12:44 Test Item Value Reference Range Interpretation Comments POCT GLU (test code = 7540973779) 137 mg/dL 70-110 H Lab Interpretation (test code = Abnormal 59346-6) [facility] GLUCOSE (AUTOMATED)2021-04-02 13:41:59 Test Item Value Reference Range Interpretation Comments POCT GLU (test code = 3272591847) 146 mg/dL 70-110 H Lab Interpretation (test code = Abnormal 06350-8) [facility] [id number] 01:02:17 Test Item Value Reference Range Interpretation Comments Blood Culture-Aerobic No organisms No growth Previo us (test code = 36951-1) isolated prelim inary verified result was Culture In Progress on 03/27/2021 at 2201 CSTPreviou s preliminary verified result was No growth a t 24 hours on 03/28/2021 at 1901 CSTPreviou s preliminary verified result was No growth a t 48 hours on 03/29/2021 at 1901 CSTPreviou s preliminary verified result was No growth a t 72 hours on 03/30/2021 at 1901 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 Blood No organisms No growth Previous Culture-Anaerobic isolated preliminar y (test code = 77893-1) verifi ed result was Culture In Progress on 03/27/2021 at 2201 CSTPreviou s preliminary verified result was No growth a t 24 hours on 03/28/2021 at 1901 CSTPreviou s preliminary verified result was No growth a t 48 hours on 03/29/2021 at 1901 CSTPreviou s preliminary verified result was No growth a t 72 hours on 03/30/2021 at 1901 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 Lab Interpretation Normal (test code = 93239-6) [facility] CULTURE [id number] 01:02:17 Test Item Value Reference Range Interpretation Comments Blood Culture-Aerobic No organisms No growth Previo us (test code = 90565-5) isolated prelim inary verified result was Culture In Progress on 03/27/2021 at 2201 CSTPreviou s preliminary verified result was No growth a t 24 hours on 03/28/2021 at 1901 CSTPreviou s preliminary verified result was No growth a t 48 hours on 03/29/2021 at 1901 CSTPreviou s preliminary verified result was No growth a t 72 hours on 03/30/2021 at 1901 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 Blood No organisms No growth Previous Culture-Anaerobic isolated preliminar y (test code = 21917-4) verifi ed result was Culture In Progress on 03/27/2021 at 2201 CSTPreviou s preliminary verified result was No growth a t 24 hours on 03/28/2021 at 1901 CSTPreviou s preliminary verified result was No growth a t 48 hours on 03/29/2021 at 1901 CSTPreviou s preliminary verified result was No growth a t 72 hours on 03/30/2021 at 1901 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 Lab Interpretation Normal (test code = 36678-6) [facility]21-[facility] 21:29:38 Test Item Value Reference Range Interpretation Comments POCT GLU (test code = 0894110117) 136 mg/dL 70-110 H Lab Interpretation (test code = Abnormal 41089-5) [facility] GLUCOSE (AUTOMATED)2021-04-01 17:07:36 Test Item Value Reference Range Interpretation Comments POCT GLU (test code = 6629954133) 132 mg/dL 70-110 H Lab Interpretation (test code = Abnormal 19285-7) [facility] GLUCOSE (AUTOMATED)2021-04-01 13:36:26 Test Item Value Reference Range Interpretation Comments POCT GLU (test code = 1911497252) 116 mg/dL 70-110 H Lab Interpretation (test code = Abnormal 80855-6) [facility] WITH [id number] 11:45:58 Test Item Value Reference Range Interpretation [...] (test code = 60.1 fL 38.5-51.6 H 75038-3) RDW-CV (test code = 18.2 % 12.1-15.4 H 788-0) PLT (test code = See_Comment H [Automated 777-3) message] The sy stem which generated this result transmitted reference range : 150 - 328 10*3/ ?L. The reference r jalen was not used to interpret this result as normal/abnormal . MPV (test code = 9.2 fL 9.8-13.0 L 08812-1) NRBC/100 WBC (test See_Comment [Automat ed code = 3815902489) message] The system which generated this result transmitted reference range : 0.0 - 10.0 /100 WBCs. The refer ence range was not u sed to interpret th is result as normal/abnormal . NRBC x10^3 (test code <0.01 See_Comment [Auto mated = 1540076979) message] The s ystem which generated this result transmitted reference range : 10*3/?L. The reference range was not used to interpret this result as normal/abnormal . GRAN MAT (NEUT) % 81.4 % (test code = 770-8) IMM GRAN % (test code 0.50 % = 6095800236) LYMPH % (test code = 11.5 % 736-9) MONO % (test code = 5.4 % 5905-5) EOS % (test code = 1.0 % 713-8) BASO % (test code = 0.2 % 706-2) GRAN MAT x10^3(ANC) 9.56 10*3/uL 1.99-6.95 H (test code = 1055593256) IMM GRAN x10^3 (test 0.06 10*3/uL 0.00-0.06 code = 5658768813) LYMPH x10^3 (test code 1.35 10*3/uL 1.09-3.23 = 731-0) MONO x10^3 (test code 0.64 10*3/uL 0.36-1.02 = 742-7) EOS x10^3 (test code = 0.12 10*3/uL 0.06-0.53 711-2) BASO x10^3 (test code <0.03 0.01-0.09 = 704-7) Lab Interpretation Abnormal (test code = 45401-8) [facility] METABOLIC PANEL (NA, K, CL, CO2, GLUCOSE, BUN, CREATININE, CA)2021-04-01 11:35:36 Test Item Value Reference Range Interpretation Comments NA (test code = 130 mmol/L 135-145 L 0970020840) K (test code = 3.9 mmol/L 3.5-5.0 7230022604) CL (test code = 102 mmol/L 98-108 7552578157) CO2 TOTAL (test code = 22 mmol/L 23-31 L 7963436524) AGAP (test code = 2-16 1529570804) BUN (test code = 11 mg/dL 7-23 1050123578) GLUCOSE (test code = 114 mg/dL 70-110 H 8632547798) CREATININE (test code = 0.78 mg/dL 0.60-1.25 3928147853) CALCIUM (test code = 8.5 mg/dL 8.6-10.6 L 0144733553) eGFR (test code = mL/min/1.73m2 1950005981) POP (test code = POP) Association of [...] tests). Lab Interpretation Abnormal (test code = 99112-7) [facility] 11:35:36 Test Item Value Reference Range Interpretation Comments MAGNESIUM (test code = 6390463284) 1.7 mg/dL 1.7-2.4 Lab Interpretation (test code = Normal 06689-5) [facility] GLUCOSE (AUTOMATED)2021-03-31 21:14:18 Test Item Value Reference Range Interpretation Comments POCT GLU (test code = 7913307966) 97 mg/dL 70-110 Lab Interpretation (test code = Normal 44642-7) [facility]2021-03-31 18:15:23 Test Item Value Reference Range Interpretation Comments ANTI-SSA(RO) (test code = Negative Negative 3128111278) POP (test code = POP) Positive - Antibody detected.Negative - No antibody detected. Lab Interpretation (test Normal code = 54145-3) [facility]2021-03-31 18:15:23 Test Item Value Reference Range Interpretation Comments Anti-SSB(LA) (test code = Negative Negative 6608113445) POP (test code = POP) Positive - Antibody detected.Negative - No antibody detected. Lab Interpretation (test Normal code = 43516-7) [facility]2021-03-31 18:15:23 Test Item Value Reference Range Interpretation Comments ANTI-SSA(RO) (test code = Negative Negative 9740109051) POP (test code = POP) Positive - Antibody detected.Negative - No antibody detected. Lab Interpretation (test Normal code = 02913-5) [facility]2021-03-31 18:15:23 Test Item Value Reference Range Interpretation Comments Anti-SSB(LA) (test code = Negative Negative 5998699405) POP (test code = POP) Positive - Antibody detected.Negative - No antibody detected. Lab Interpretation (test Normal code = 76950-3) [facility] GLUCOSE (AUTOMATED)2021-03-31 17:14:06 Test Item Value Reference Range Interpretation Comments POCT GLU (test code = 5997012935) 111 mg/dL 70-110 H Lab Interpretation (test code = Abnormal 16711-6) [facility] GLUCOSE (AUTOMATED)2021-03-31 17:14:06 Test Item Value Reference Range Interpretation Comments POCT GLU (test code = 6943486151) 111 mg/dL 70-110 H Lab Interpretation (test code = Abnormal 06273-2) [facility] GLUCOSE (AUTOMATED)2021-03-31 13:31:44 Test Item Value Reference Range Interpretation Comments POCT GLU (test code = 3300139032) 90 mg/dL 70-110 Lab Interpretation (test code = Normal 18135-6) [facility] GLUCOSE (AUTOMATED)2021-03-31 13:31:44 Test Item Value Reference Range Interpretation Comments POCT GLU (test code = 2915486657) 90 mg/dL 70-110 Lab Interpretation (test code = Normal 88826-7) [facility] (NA, K, CL, CO2, GLUCOSE, BUN, CREATININE, CA)2021-03-31 11:14:28 Test Item Value Reference Range Interpretation Comments NA (test code = 130 mmol/L 135-145 L 1239666353) K (test code = 4.2 mmol/L 3.5-5.0 8703332711) CL (test code = 103 mmol/L 98-108 1024153082) CO2 TOTAL (test code = 22 mmol/L 23-31 L 6961397977) AGAP (test code = 2-16 9157840943) BUN (test code = 11 mg/dL 7-23 9911064607) GLUCOSE (test code = 83 mg/dL 70-110 1076330512) CREATININE (test code = 0.71 mg/dL 0.60-1.25 4884037134) CALCIUM (test code = 8.6 mg/dL 8.6-10.6 2872778988) eGFR (test code = mL/min/1.73m2 9671806276) POP (test code = POP) Association of [...] tests). Lab Interpretation Abnormal (test code = 67066-6) [facility]21-[facility]-21 11:14:28 Test Item Value Reference Range Interpretation Comments MAGNESIUM (test code = 3517806423) 1.8 mg/dL 1.7-2.4 Lab Interpretation (test code = Normal 49955-5) [facility] (NA, K, CL, CO2, GLUCOSE, BUN, CREATININE, CA)2021-03-31 11:14:28 Test Item Value Reference Range Interpretation Comments NA (test code = 130 mmol/L 135-145 L 1489560830) K (test code = 4.2 mmol/L 3.5-5.0 9552646960) CL (test code = 103 mmol/L 98-108 0831197254) CO2 TOTAL (test code = 22 mmol/L 23-31 L 4630474228) AGAP (test code = 2-16 4591217646) BUN (test code = 11 mg/dL 7-23 0517640200) GLUCOSE (test code = 83 mg/dL 70-110 7085761617) CREATININE (test code = 0.71 mg/dL 0.60-1.25 0070225184) CALCIUM (test code = 8.6 mg/dL 8.6-10.6 0634125676) eGFR (test code = mL/min/1.73m2 3092776070) POP (test code = POP) Association of [...] tests). Lab Interpretation Abnormal (test code = 48085-8) [facility] 11:14:28 Test Item Value Reference Range Interpretation Comments MAGNESIUM (test code = 5583602514) 1.8 mg/dL 1.7-2.4 Lab Interpretation (test code = Normal 28940-5) [facility] WITH [id number] 10:20:23 Test Item Value Reference Range Interpretation [...] (test code = 57.5 fL 38.5-51.6 H 80054-6) RDW-CV (test code = 17.6 % 12.1-15.4 H 788-0) PLT (test code = See_Comment H [Automated 777-3) message] The system which generated this result transmit qing reference range : 150 - 328 10*3/ ?L. The reference range was not u sed to interpret th is result as normal/abnormal . MPV (test code = 9.2 fL 9.8-13.0 L 65001-0) NRBC/100 WBC (test See_Comment [Automat ed code = 4286273003) message] The system which generated this result transmit qing reference range : 0.0 - 10.0 /100 WBCs. The reference range was not used to interpret this result as normal/abnormal . NRBC x10^3 (test code <0.01 See_Comment [Auto mated = [id number]) message] The system which generated this result transmit qing reference range : 10*3/?L. The reference range was not used to interpret this result as normal/abnormal . GRAN MAT (NEUT) % 83.6 % (test code = 770-8) IMM GRAN % (test code 0.60 % = 5951010586) LYMPH % (test code = 9.6 % 736-9) MONO % (test code = 4.8 % 5905-5) EOS % (test code = 1.1 % 713-8) BASO % (test code = 0.3 % 706-2) GRAN MAT x10^3(ANC) 11.90 10*3/uL 1.99-6.95 H (test code = 1439512044) IMM GRAN x10^3 (test 0.09 10*3/uL 0.00-0.06 H code = 1221443309) LYMPH x10^3 (test code 1.37 10*3/uL 1.09-3.23 = 731-0) MONO x10^3 (test code 0.68 10*3/uL 0.36-1.02 = 742-7) EOS x10^3 (test code = 0.15 10*3/uL 0.06-0.53 711-2) BASO x10^3 (test code 0.04 10*3/uL 0.01-0.09 = 704-7) Lab Interpretation Abnormal (test code = 72233-6) [facility] WITH [id number] 10:20:23 Test Item Value Reference Range Interpretation [...] (test code = 57.5 fL 38.5-51.6 H 47286-3) RDW-CV (test code = 17.6 % 12.1-15.4 H 788-0) PLT (test code = See_Comment H [Automated 777-3) message] The system which generated this result transmit qing reference range : 150 - 328 10*3/ ?L. The reference range was not u sed to interpret th is result as normal/abnormal . MPV (test code = 9.2 fL 9.8-13.0 L 71836-2) NRBC/100 WBC (test See_Comment [Automat ed code = 5027809448) message] The system which generated this result transmit qing reference range : 0.0 - 10.0 /100 WBCs. The reference range was not used to interpret this result as normal/abnormal . NRBC x10^3 (test code <0.01 See_Comment [Auto mated = 3028122282) message] The system which generated this result transmit qing reference range : 10*3/?L. The reference range was not used to interpret this result as normal/abnormal . GRAN MAT (NEUT) % 83.6 % (test code = 770-8) IMM GRAN % (test code 0.60 % = 5254329252) LYMPH % (test code = 9.6 % 736-9) MONO % (test code = 4.8 % 5905-5) EOS % (test code = 1.1 % 713-8) BASO % (test code = 0.3 % 706-2) GRAN MAT x10^3(ANC) 11.90 10*3/uL 1.99-6.95 H (test code = 9639950109) IMM GRAN x10^3 (test 0.09 10*3/uL 0.00-0.06 H code = 2568541900) LYMPH x10^3 (test code 1.37 10*3/uL 1.09-3.23 = 731-0) MONO x10^3 (test code 0.68 10*3/uL 0.36-1.02 = 742-7) EOS x10^3 (test code = 0.15 10*3/uL 0.06-0.53 711-2) BASO x10^3 (test code 0.04 10*3/uL 0.01-0.09 = 704-7) Lab Interpretation Abnormal (test code = 86851-4) [facility] GLUCOSE (AUTOMATED)2021-03-30 22:19:35 Test Item Value Reference Range Interpretation Comments POCT GLU (test code = 8419877694) 96 mg/dL 70-110 Lab Interpretation (test code = Normal 58474-7) [facility] GLUCOSE (AUTOMATED)2021-03-30 22:19:35 Test Item Value Reference Range Interpretation Comments POCT GLU (test code = 6042738286) 96 mg/dL 70-110 Lab Interpretation (test code = Normal 74852-3) [facility] GLUCOSE (AUTOMATED)2021-03-30 14:02:48 Test Item Value Reference Range Interpretation Comments POCT GLU (test code = 7040469131) 105 mg/dL 70-110 Lab Interpretation (test code = Normal 37343-5) [facility] GLUCOSE (AUTOMATED)2021-03-30 14:02:48 Test Item Value Reference Range Interpretation Comments POCT GLU (test code = 0651701317) 105 mg/dL 70-110 Lab Interpretation (test code = Normal 76006-6) [facility] [id number] 13:43:42 Test Item Value Reference Range Interpretation Comments MMA Serum/Plasma, 0.14 umol/L 0.00-0.40 INTERPRETI VE INFORMATION: Vitamin B12 MMA Serum/Plasm a, ? ? ? Status (test code ? = 52617-0) ?Vitamin B12 St atus This test was develo ped and its performance characteristics determined by [facility]. I t has not been cleared or approved by the [place] Food and Drug Administration. This test was performed i n a CLIA certified labor atory and is intended for clinical purposes.Perfor med By: [facility] [address] [place] [id number] aboratory Director: Elena Mansfield MD [facility], [id number] 13:43:42 Test Item Value Reference Range Interpretation Comments MMA Serum/Plasma, 0.14 umol/L 0.00-0.40 INTERPRETI VE INFORMATION: Vitamin B12 MMA Serum/Plasm a, ? ? ? Status (test code ? = 25250-4) ?Vitamin B12 St atus This test was develo ped and its performance characteristics determined by [facility]. I t has not been cleared or approved by the [place] Food and Drug Administration. This test was performed i n a CLIA certified labor atory and is intended for clinical purposes.Perfor med By: TIFF Gary [address] [place], [place] [address]T aboratory Director: Elena Mansfield MD [facility] METABOLIC PANEL (NA, K, CL, CO2, GLUCOSE, BUN, CREATININE, CA)2021-03-30 11:17:07 Test Item Value Reference Range Interpretation Comments NA (test code = 132 mmol/L 135-145 L 9820744080) K (test code = 4.1 mmol/L 3.5-5.0 3115214466) CL (test code = 105 mmol/L 98-108 0336523277) CO2 TOTAL (test code = 24 mmol/L 23-31 2158046329) AGAP (test code = 2-16 4079637408) BUN (test code = 12 mg/dL 7-23 8450406590) GLUCOSE (test code = 95 mg/dL 70-110 3375433347) CREATININE (test code = 0.67 mg/dL 0.60-1.25 7477516386) CALCIUM (test code = 8.4 mg/dL 8.6-10.6 L 8150224334) eGFR (test code = mL/min/1.73m2 2384810532) POP (test code = POP) Association of [...] tests). Lab Interpretation Abnormal (test code = 48641-8) [facility] 11:17:07 Test Item Value Reference Range Interpretation Comments MAGNESIUM (test code = 4797132748) 1.6 mg/dL 1.7-2.4 L Lab Interpretation (test code = Abnormal 73589-3) [facility] (NA, K, CL, CO2, GLUCOSE, BUN, CREATININE, CA)2021-03-30 11:17:07 Test Item Value Reference Range Interpretation Comments NA (test code = 132 mmol/L 135-145 L 7270090353) K (test code = 4.1 mmol/L 3.5-5.0 8159582578) CL (test code = 105 mmol/L 98-108 1211285423) CO2 TOTAL (test code = 24 mmol/L 23-31 7709675822) AGAP (test code = 2-16 0478321210) BUN (test code = 12 mg/dL 7-23 7744259302) GLUCOSE (test code = 95 mg/dL 70-110 6253197398) CREATININE (test code = 0.67 mg/dL 0.60-1.25 2316614864) CALCIUM (test code = 8.4 mg/dL 8.6-10.6 L 0092038798) eGFR (test code = mL/min/1.73m2 0558687400) POP (test code = POP) Association of [...] tests). Lab Interpretation Abnormal (test code = 84304-6) [facility] 11:17:07 Test Item Value Reference Range Interpretation Comments MAGNESIUM (test code = 1980717318) 1.6 mg/dL 1.7-2.4 L Lab Interpretation (test code = Abnormal 16332-5) [facility] WITH [id number] 11:03:06 Test Item Value Reference Range Interpretation Comments WBC (test code = See_Comment H [Automated 8190-2) message] The sy stem which generated this result transmitted reference range : 4.20 - 10.70 10*3/?L. The reference range was not used to interpret this result as normal/abnormal . RBC (test code = See_Comment L [Automated 959-8) message] The sy stem which generated this [...] (test code = 56.0 fL 38.5-51.6 H 93883-0) RDW-CV (test code = 17.9 % 12.1-15.4 H 788-0) PLT (test code = See_Comment H [Automated 777-3) message] The sy stem which generated this result transmitted reference range : 150 - 328 10*3/ ?L. The reference r jalen was not used to interpret this result as normal/abnormal . MPV (test code = 9.2 fL 9.8-13.0 L 41251-6) NRBC/100 WBC (test See_Comment [Automat ed code = 8321610968) message] The system which generated this result transmitted reference range : 0.0 - 10.0 /100 WBCs. The refer ence range was not u sed to interpret th is result as normal/abnormal . NRBC x10^3 (test code See_Comment [Auto mated = 9325473379) message] The s ystem which generated this result transmitted reference range : 10*3/?L. The reference range was not used to interpret this result as normal/abnormal . GRAN MAT (NEUT) % 75.7 % (test code = 770-8) IMM GRAN % (test code 1.00 % = 2706332729) LYMPH % (test code = 15.5 % 736-9) MONO % (test code = 5.3 % 5905-5) EOS % (test code = 2.0 % 713-8) BASO % (test code = 0.5 % 706-2) GRAN MAT x10^3(ANC) 9.81 10*3/uL 1.99-6.95 H (test code = 2019573086) IMM GRAN x10^3 (test 0.13 10*3/uL 0.00-0.06 H code = 2227496313) LYMPH x10^3 (test code 2.01 10*3/uL 1.09-3.23 = 731-0) MONO x10^3 (test code 0.69 10*3/uL 0.36-1.02 = 742-7) EOS x10^3 (test code = 0.26 10*3/uL 0.06-0.53 711-2) BASO x10^3 (test code 0.06 10*3/uL 0.01-0.09 = 704-7) Lab Interpretation Abnormal (test code = 16475-3) [facility] WITH [id number] 11:03:06 Test Item Value Reference Range Interpretation [...] (test code = 56.0 fL 38.5-51.6 H 69402-8) RDW-CV (test code = 17.9 % 12.1-15.4 H 788-0) PLT (test code = See_Comment H [Automated 777-3) message] The sy stem which generated this result transmitted reference range : 150 - 328 10*3/ ?L. The reference r jalen was not used to interpret this result as normal/abnormal . MPV (test code = 9.2 fL 9.8-13.0 L 91574-7) NRBC/100 WBC (test See_Comment [Automat ed code = 9974514707) message] The system which generated this result transmitted reference range : 0.0 - 10.0 /100 WBCs. The refer ence range was not u sed to interpret th is result as normal/abnormal . NRBC x10^3 (test code See_Comment [Auto mated = 8078634921) message] The s ystem which generated this result transmitted reference range : 10*3/?L. The reference range was not used to interpret this result as normal/abnormal . GRAN MAT (NEUT) % 75.7 % (test code = 770-8) IMM GRAN % (test code 1.00 % = 2288090419) LYMPH % (test code = 15.5 % 736-9) MONO % (test code = 5.3 % 5905-5) EOS % (test code = 2.0 % 713-8) BASO % (test code = 0.5 % 706-2) GRAN MAT x10^3(ANC) 9.81 10*3/uL 1.99-6.95 H (test code = 3630074187) IMM GRAN x10^3 (test 0.13 10*3/uL 0.00-0.06 H code = 9539465698) LYMPH x10^3 (test code 2.01 10*3/uL 1.09-3.23 = 731-0) MONO x10^3 (test code 0.69 10*3/uL 0.36-1.02 = 742-7) EOS x10^3 (test code = 0.26 10*3/uL 0.06-0.53 711-2) BASO x10^3 (test code 0.06 10*3/uL 0.01-0.09 = 704-7) Lab Interpretation Abnormal (test code = 67889-0) [facility] GLUCOSE (AUTOMATED)2021-03-29 22:21:18 Test Item Value Reference Range Interpretation Comments POCT GLU (test code = 3647638141) 130 mg/dL 70-110 H Lab Interpretation (test code = Abnormal 07676-2) [facility] GLUCOSE (AUTOMATED)2021-03-29 22:21:18 Test Item Value Reference Range Interpretation Comments POCT GLU (test code = 4010100468) 130 mg/dL 70-110 H Lab Interpretation (test code = Abnormal 78426-2) [facility], LOW MOLECULAR WEIGHT HEPARIN [...] administration. Lab Interpretation Abnormal (test code = 34777-9) [facility], LOW MOLECULAR WEIGHT HEPARIN [...] administration. Lab Interpretation Abnormal (test code = 92900-1) [facility] WITHOUT [id number] 18:48:40 Test Item Value Reference Range Interpretation Comments WBC (test code = 6690-2) See_Comment H [A utomated message] The system [employer] generated this result transmit qing reference range : 4.20 - 10.70 10*3/?L. The reference range was not used to interpret this result as normal/abnormal . RBC (test code = 789-8) See_Comment L [Au tomated message] The system [employer] generated this result transmit qing reference range [...] See_Comment H [Au tomated message] The system [facility] generated this result transmit qing reference range : 150 - 328 10*3/?L. The reference range was not used to interpret this result as normal/abnormal . MPV (test code = 9.4 fL 9.8-13.0 L 11524-4) RDW-CV (test code = 17.2 % 12.1-15.4 H 788-0) RDW-SD (test code = 53.2 fL 38.5-51.6 H 20979-4) NRBC x10^3 (test code = <0.01 See_Comment [Au tomated message] 9876026230) The system [email or web address] generated this result transmit qing reference range : 10*3/?L. The reference range was not used to interpret this result as normal/abnormal . NRBC/100 WBC (test code See_Comment [Au tomated message] = 0481413431) The system [facility] generated this result transmit qing reference range : 0.0 - 10.0 /100 WBC s. The reference r jalen was not used to interpret this result as normal/abnormal . IPF % (test code = 3195589747) Lab Interpretation (test Abnormal code = 25093-1) [facility] WITHOUT [id number] 18:48:40 Test Item Value Reference Range Interpretation Comments WBC (test code = 6690-2) See_Comment H [A utomated message] The system [facility] generated this result transmit qing reference range : 4.20 - 10.70 10*3/?L. The reference range was not used to interpret this result as normal/abnormal . RBC (test code = 789-8) See_Comment L [Au tomated message] The system [facility] generated this result transmit qing reference [...] See_Comment H [Au tomated message] The system [facility] [employer] generated this result transmit qing reference range : 150 - 328 10*3/?L. The reference range was not used to interpret this result as normal/abnormal . MPV (test code = 9.4 fL 9.8-13.0 L 16368-5) RDW-CV (test code = 17.2 % 12.1-15.4 H 788-0) RDW-SD (test code = 53.2 fL 38.5-51.6 H 29846-4) NRBC x10^3 (test code = <0.01 See_Comment [Au tomated message] 2747367025) The system [facility] [employer] generated this result transmit qing reference range : 10*3/?L. The reference range was not used to interpret this result as normal/abnormal . NRBC/100 WBC (test code See_Comment [Au tomated message] = 2186996968) The system [facility] generated this result transmit qing reference range : 0.0 - 10.0 /100 WBC s. The reference r jalen was not used to interpret this result as normal/abnormal . IPF % (test code = 2679226701) Lab Interpretation (test Abnormal code = 34101-4) [facility] GLUCOSE (AUTOMATED)2021-03-29 18:08:42 Test Item Value Reference Range Interpretation Comments POCT GLU (test code = 7775765590) 135 mg/dL 70-110 H Lab Interpretation (test code = Abnormal 21201-9) [facility] GLUCOSE (AUTOMATED)2021-03-29 18:08:42 Test Item Value Reference Range Interpretation Comments POCT GLU (test code = 0775567406) 135 mg/dL 70-110 H Lab Interpretation (test code = Abnormal 91151-6) [facility] RBC (in units), 1 Units 2021-03-29 15:56:11 Test Item Value Reference Range Interpretation Comments Cross Match Result Compatible (test code = 4409) ISBT Blood Type Code (test code = 767632) Unit Blood Type (test A Pos code = 4410) Unit Number (test [id number] code = 4411) Blood Expiration Date & Time (test code = 546636) Status Information Issued (test code = 4412) Product Red Blood Cells Identification (test code = 4413) Product Code (test [id number] Performed at [facility] code = 4414) Laboratory Services [facility] Blood [address] [address]Jeic Free: [phone] A No. [id number] [facility] Packed RBC (in units), 1 Units 2021-03-29 15:56:11 Test Item Value Reference Range Interpretation Comments Cross Match Result Compatible (test code = 4409) ISBT Blood Type Code (test code = 279797) Unit Blood Type (test A Pos code = 4410) Unit Number (test [id number] code = 4411) Blood Expiration Date & Time (test code = 044450) Status Information Issued (test code = 4412) Product Red Blood Cells Identification (test code = 4413) Product Code (test [id number] Performed at [facility] code = 4414) Laboratory Services [address] [address]C[place]k Free: [phone] A No. [id number] [facility] Packed RBC (in units), 1 Units 2021-03-29 15:56:11 Test Item Value Reference Range Interpretation Comments Cross Match Result Compatible (test code = 4409) ISBT Blood Type Code (test code = 050812) Unit Blood Type (test A Pos code = 4410) Unit Number (test [id number] code = 4411) Blood Expiration Date & Time (test code = 708464) Status Information Issued (test code = 4412) Product Red Blood Cells Identification (test code = 4413) Product Code (test [id number] Performed at [facility] code = 4414) Laboratory Services [facility] Blood [address] [address]Pknf Free: [phone] A No. [id number] [facility] GLUCOSE (AUTOMATED)2021-03-29 13:25:05 Test Item Value Reference Range Interpretation Comments POCT GLU (test code = 9187504200) 115 mg/dL 70-110 H Lab Interpretation (test code = Abnormal 35886-1) [facility] GLUCOSE (AUTOMATED)2021-03-29 13:25:05 Test Item Value Reference Range Interpretation Comments POCT GLU (test code = 8230367663) 115 mg/dL 70-110 H Lab Interpretation (test code = Abnormal 90100-7) [facility] GLUCOSE (AUTOMATED)2021-03-29 13:25:05 Test Item Value Reference Range Interpretation Comments POCT GLU (test code = 7735947272) 115 mg/dL 70-110 H Lab Interpretation (test code = Abnormal 17927-2) [facility] 13:08:09 Test Item Value Reference Range Interpretation Comments MAGNESIUM (test code = 2002053651) 1.7 mg/dL 1.7-2.4 Lab Interpretation (test code = Normal 28861-0) [facility]09 Test Item Value Reference Range Interpretation Comments MAGNESIUM (test code = 8965042434) 1.7 mg/dL 1.7-2.4 Lab Interpretation (test code = Normal 31565-9) [facility] 13:08:09 Test Item Value Reference Range Interpretation Comments MAGNESIUM (test code = 8070186827) 1.7 mg/dL 1.7-2.4 Lab Interpretation (test code = Normal 69100-4) [facility] (NA, K, CL, CO2, GLUCOSE, BUN, CREATININE, CA)2021-03-29 12:34:45 Test Item Value Reference Range Interpretation Comments NA (test code = 133 mmol/L 135-145 L 7948835063) K (test code = 4.1 mmol/L 3.5-5.0 2051686946) CL (test code = 106 mmol/L 98-108 3632171201) CO2 TOTAL (test code = 23 mmol/L 23-31 1556058905) AGAP (test code = 2-16 2191414142) BUN (test code = 17 mg/dL 7-23 8069641193) GLUCOSE (test code = 106 mg/dL 70-110 0427062953) CREATININE (test code = 0.73 mg/dL 0.60-1.25 8404481940) CALCIUM (test code = 8.2 mg/dL 8.6-10.6 L 5108944560) eGFR (test code = mL/min/1.73m2 7521466958) POP (test code = POP) Association of [...] tests). Lab Interpretation Abnormal (test code = 46179-9) [facility] METABOLIC PANEL (NA, K, CL, CO2, GLUCOSE, BUN, CREATININE, CA)2021-03-29 12:34:45 Test Item Value Reference Range Interpretation Comments NA (test code = 133 mmol/L 135-145 L 6867831984) K (test code = 4.1 mmol/L 3.5-5.0 6848482891) CL (test code = 106 mmol/L 98-108 4195645321) CO2 TOTAL (test code = 23 mmol/L 23-31 7431684368) AGAP (test code = 2-16 8825056085) BUN (test code = 17 mg/dL 7-23 6595557864) GLUCOSE (test code = 106 mg/dL 70-110 6271930775) CREATININE (test code = 0.73 mg/dL 0.60-1.25 9875774542) CALCIUM (test code = 8.2 mg/dL 8.6-10.6 L 9878113083) eGFR (test code = mL/min/1.73m2 0330590856) POP (test code = POP) Association of [...] tests). Lab Interpretation Abnormal (test code = 22787-1) [facility] (NA, K, CL, CO2, GLUCOSE, BUN, CREATININE, CA)2021-03-29 12:34:45 Test Item Value Reference Range Interpretation Comments NA (test code = 133 mmol/L 135-145 L 1832650482) K (test code = 4.1 mmol/L 3.5-5.0 2936742803) CL (test code = 106 mmol/L 98-108 5291223833) CO2 TOTAL (test code = 23 mmol/L 23-31 9013136684) AGAP (test code = 2-16 3530292482) BUN (test code = 17 mg/dL 7-23 8812979812) GLUCOSE (test code = 106 mg/dL 70-110 2881167655) CREATININE (test code = 0.73 mg/dL 0.60-1.25 0018352789) CALCIUM (test code = 8.2 mg/dL 8.6-10.6 L 2963682424) eGFR (test code = mL/min/1.73m2 4272165286) POP (test code = POP) Association of [...] tests). Lab Interpretation Abnormal (test code = 40767-3) [facility] WITH [id number] 12:03:02 Test Item Value Reference Range Interpretation [...] (test code = 54.0 fL 38.5-51.6 H 74827-6) RDW-CV (test code = 16.9 % 12.1-15.4 H 788-0) PLT (test code = See_Comment H [Automated 777-3) message] The system which generated this result transmit qing reference range : 150 - 328 10*3/ ?L. The reference range was not u sed to interpret th is result as normal/abnormal . MPV (test code = 9.1 fL 9.8-13.0 L 54751-4) NRBC/100 WBC (test See_Comment [Automat ed code = 4629369626) message] The system which generated this result transmit qing reference range : 0.0 - 10.0 /100 WBCs. The reference range was not used to interpret this result as normal/abnormal . NRBC x10^3 (test code See_Comment [Auto mated = 6685041133) message] The system which generated this result transmit qing reference range : 10*3/?L. The reference range was not used to interpret this result as normal/abnormal . GRAN MAT (NEUT) % 78.0 % (test code = 770-8) IMM GRAN % (test code 0.60 % = 8461522981) LYMPH % (test code = 14.3 % 736-9) MONO % (test code = 5.5 % 5905-5) EOS % (test code = 1.2 % 713-8) BASO % (test code = 0.4 % 706-2) GRAN MAT x10^3(ANC) 11.69 10*3/uL 1.99-6.95 H (test code = 8012252020) IMM GRAN x10^3 (test 0.09 10*3/uL 0.00-0.06 H code = 2655459328) LYMPH x10^3 (test code 2.14 10*3/uL 1.09-3.23 = 731-0) MONO x10^3 (test code 0.82 10*3/uL 0.36-1.02 = 742-7) EOS x10^3 (test code = 0.18 10*3/uL 0.06-0.53 711-2) BASO x10^3 (test code 0.06 10*3/uL 0.01-0.09 = 704-7) Lab Interpretation Abnormal (test code = 10764-1) [facility] WITH [id number] 12:03:02 Test Item Value Reference Range Interpretation Comments WBC (test code = See_Comment H [Automated 7090-2) message] The system which generated this result transmit qing reference range : 4.20 - 10.70 10*3/?L. The reference range was not used to interpret this result as normal/abnormal . RBC (test code = See_Comment L [Automated 729-8) message] The system which generated this result [...] (test code = 54.0 fL 38.5-51.6 H 75570-6) RDW-CV (test code = 16.9 % 12.1-15.4 H 788-0) PLT (test code = See_Comment H [Automated 777-3) message] The system which generated this result transmit qing reference range : 150 - 328 10*3/ ?L. The reference range was not u sed to interpret th is result as normal/abnormal . MPV (test code = 9.1 fL 9.8-13.0 L 45563-3) NRBC/100 WBC (test See_Comment [Automat ed code = 3633270528) message] The system which generated this result transmit qing reference range : 0.0 - 10.0 /100 WBCs. The reference range was not used to interpret this result as normal/abnormal . NRBC x10^3 (test code See_Comment [Auto mated = 3558778180) message] The system which generated this result transmit qing reference range : 10*3/?L. The reference range was not used to interpret this result as normal/abnormal . GRAN MAT (NEUT) % 78.0 % (test code = 770-8) IMM GRAN % (test code 0.60 % = 3449368172) LYMPH % (test code = 14.3 % 736-9) MONO % (test code = 5.5 % 5905-5) EOS % (test code = 1.2 % 713-8) BASO % (test code = 0.4 % 706-2) GRAN MAT x10^3(ANC) 11.69 10*3/uL 1.99-6.95 H (test code = 5048711752) IMM GRAN x10^3 (test 0.09 10*3/uL 0.00-0.06 H code = 8411468850) LYMPH x10^3 (test code 2.14 10*3/uL 1.09-3.23 = 731-0) MONO x10^3 (test code 0.82 10*3/uL 0.36-1.02 = 742-7) EOS x10^3 (test code = 0.18 10*3/uL 0.06-0.53 711-2) BASO x10^3 (test code 0.06 10*3/uL 0.01-0.09 = 704-7) Lab Interpretation Abnormal (test code = 92135-8) [facility] WITH [id number] 12:03:02 Test Item Value Reference Range Interpretation [...] (test code = 54.0 fL 38.5-51.6 H 25145-7) RDW-CV (test code = 16.9 % 12.1-15.4 H 788-0) PLT (test code = See_Comment H [Automated 777-3) message] The system which generated this result transmit qing reference range : 150 - 328 10*3/ ?L. The reference range was not u sed to interpret th is result as normal/abnormal . MPV (test code = 9.1 fL 9.8-13.0 L 67770-1) NRBC/100 WBC (test See_Comment [Automat ed code = 7675652451) message] The system which generated this result transmit qing reference range : 0.0 - 10.0 /100 WBCs. The reference range was not used to interpret this result as normal/abnormal . NRBC x10^3 (test code See_Comment [Auto mated = [id number]) message] The system which generated this result transmit qing reference range : 10*3/?L. The reference range was not used to interpret this result as normal/abnormal . GRAN MAT (NEUT) % 78.0 % (test code = 770-8) IMM GRAN % (test code 0.60 % = 7773610460) LYMPH % (test code = 14.3 % 736-9) MONO % (test code = 5.5 % 5905-5) EOS % (test code = 1.2 % 713-8) BASO % (test code = 0.4 % 706-2) GRAN MAT x10^3(ANC) 11.69 10*3/uL 1.99-6.95 H (test code = 1239195988) IMM GRAN x10^3 (test 0.09 10*3/uL 0.00-0.06 H code = 4429750666) LYMPH x10^3 (test code 2.14 10*3/uL 1.09-3.23 = 731-0) MONO x10^3 (test code 0.82 10*3/uL 0.36-1.02 = 742-7) EOS x10^3 (test code = 0.18 10*3/uL 0.06-0.53 711-2) BASO x10^3 (test code 0.06 10*3/uL 0.01-0.09 = 704-7) Lab Interpretation Abnormal (test code = 77804-5) [facility] WITHOUT [id number] 23:07:41 Test Item Value Reference Range Interpretation Comments WBC (test code = 6690-2) See_Comment H [A utomated message] The system [facility] h generated this result transmit qing reference range : 4.20 - 10.70 10*3/?L. The reference range was not used to interpret this result as normal/abnormal . RBC (test code = 789-8) See_Comment L [Au tomated message] The system [employer] generated this result transmit qing reference range [...] See_Comment H [Au tomated message] The system [employer] generated this result transmit qing reference range : 150 - 328 10*3/?L. The reference range was not used to interpret this result as normal/abnormal . MPV (test code = 9.2 fL 9.8-13.0 L 72765-2) RDW-CV (test code = 16.3 % 12.1-15.4 H 788-0) RDW-SD (test code = 50.1 fL 38.5-51.6 30398-8) NRBC x10^3 (test code = <0.01 See_Comment [Au tomated message] 2943129746) The system [email or web address] generated this result transmit qing reference range : 10*3/?L. The reference range was not used to interpret this result as normal/abnormal . NRBC/100 WBC (test code See_Comment [Au tomated message] = 8728103637) The system [facility] generated this result transmit qing reference range : 0.0 - 10.0 /100 WBC s. The reference r jalen was not used to interpret this result as normal/abnormal . IPF % (test code = 0713926886) Lab Interpretation (test Abnormal code = 79028-7) [facility] WITHOUT [id number] 23:07:41 Test Item Value Reference Range Interpretation Comments WBC (test code = 6690-2) See_Comment H [A utomated message] The system [employer] generated this result transmit qing reference range : 4.20 - 10.70 10*3/?L. The reference range was not used to interpret this result as normal/abnormal . RBC (test code = 789-8) See_Comment L [Au tomated message] The system [employer] generated this result transmit qing reference range [...] See_Comment H [Au tomated message] The system [facility] generated this result transmit qing reference range : 150 - 328 10*3/?L. The reference range was not used to interpret this result as normal/abnormal . MPV (test code = 9.2 fL 9.8-13.0 L 81556-3) RDW-CV (test code = 16.3 % 12.1-15.4 H 788-0) RDW-SD (test code = 50.1 fL 38.5-51.6 52765-9) NRBC x10^3 (test code = <0.01 See_Comment [Au tomated message] 7937666384) The system [facility] generated this result transmit qing reference range : 10*3/?L. The reference range was not used to interpret this result as normal/abnormal . NRBC/100 WBC (test code See_Comment [Au tomated message] = 5856561573) The system [facility] generated this result transmit qing reference range : 0.0 - 10.0 /100 WBC s. The reference r jalen was not used to interpret this result as normal/abnormal . IPF % (test code = 4120289440) Lab Interpretation (test Abnormal code = 73515-5) [facility] WITHOUT [id number] 23:07:41 Test Item Value Reference Range Interpretation Comments WBC (test code = 6690-2) See_Comment H [A utomated message] The system [employer] generated this result transmit qing reference range : 4.20 - 10.70 10*3/?L. The reference range was not used to interpret this result as normal/abnormal . RBC (test code = 789-8) See_Comment L [Au tomated message] The system [employer] generated this result transmit qing reference range [...] See_Comment H [Au tomated message] The system [employer] generated this result transmit qing reference range : 150 - 328 10*3/?L. The reference range was not used to interpret this result as normal/abnormal . MPV (test code = 9.2 fL 9.8-13.0 L 19436-2) RDW-CV (test code = 16.3 % 12.1-15.4 H 788-0) RDW-SD (test code = 50.1 fL 38.5-51.6 03301-3) NRBC x10^3 (test code = <0.01 See_Comment [Au tomated message] 1068071006) The system [employer] generated this result transmit qing reference range : 10*3/?L. The reference range was not used to interpret this result as normal/abnormal . NRBC/100 WBC (test code See_Comment [Au tomated message] = 8076103124) The system [facility] generated this result transmit qing reference range : 0.0 - 10.0 /100 WBC s. The reference r jalen was not used to interpret this result as normal/abnormal . IPF % (test code = 9258482235) Lab Interpretation (test Abnormal code = 14245-1) [facility] GLUCOSE (AUTOMATED)2021-03-28 22:17:56 Test Item Value Reference Range Interpretation Comments POCT GLU (test code = 8258262194) 111 mg/dL 70-110 H Lab Interpretation (test code = Abnormal 76230-3) [facility] GLUCOSE (AUTOMATED)2021-03-28 22:17:56 Test Item Value Reference Range Interpretation Comments POCT GLU (test code = 3489428920) 111 mg/dL 70-110 H Lab Interpretation (test code = Abnormal 56342-3) [facility] GLUCOSE (AUTOMATED)2021-03-28 17:09:55 Test Item Value Reference Range Interpretation Comments POCT GLU (test code = 9002586540) 112 mg/dL 70-110 H Lab Interpretation (test code = Abnormal 61570-7) [facility] GLUCOSE (AUTOMATED)2021-03-28 17:09:55 Test Item Value Reference Range Interpretation Comments POCT GLU (test code = 8229146913) 112 mg/dL 70-110 H Lab Interpretation (test code = Abnormal 41156-9) [facility] GLUCOSE (AUTOMATED)2021-03-28 13:13:42 Test Item Value Reference Range Interpretation Comments POCT GLU (test code = 4821326250) 90 mg/dL 70-110 Lab Interpretation (test code = Normal 86097-4) [facility] GLUCOSE (AUTOMATED)2021-03-28 13:13:42 Test Item Value Reference Range Interpretation Comments POCT GLU (test code = 3175080051) 90 mg/dL 70-110 Lab Interpretation (test code = Normal 78482-3) [facility] METABOLIC PANEL (NA, K, CL, CO2, GLUCOSE, BUN, CREATININE, CA)2021-03-28 11:25:09 Test Item Value Reference Range Interpretation Comments NA (test code = 135 mmol/L 135-145 7827943636) K (test code = 4.0 mmol/L 3.5-5.0 6294927021) CL (test code = 107 mmol/L 98-108 4407266683) CO2 TOTAL (test code = 23 mmol/L 23-31 9833396810) AGAP (test code = 2-16 9301703785) BUN (test code = 20 mg/dL 7-23 0965593850) GLUCOSE (test code = 82 mg/dL 70-110 2637799796) CREATININE (test code = 0.76 mg/dL 0.60-1.25 4197340234) CALCIUM (test code = 8.3 mg/dL 8.6-10.6 L 4626465500) eGFR (test code = mL/min/1.73m2 3857427217) POP (test code = POP) Association of [...] tests). Lab Interpretation Abnormal (test code = 04667-5) [facility] METABOLIC PANEL (NA, K, CL, CO2, GLUCOSE, BUN, CREATININE, CA)2021-03-28 11:25:09 Test Item Value Reference Range Interpretation Comments NA (test code = 135 mmol/L 135-145 6719127177) K (test code = 4.0 mmol/L 3.5-5.0 0216099428) CL (test code = 107 mmol/L 98-108 1525950828) CO2 TOTAL (test code = 23 mmol/L 23-31 6416471793) AGAP (test code = 2-16 0726135937) BUN (test code = 20 mg/dL 7-23 2832185098) GLUCOSE (test code = 82 mg/dL 70-110 2313359909) CREATININE (test code = 0.76 mg/dL 0.60-1.25 8295647111) CALCIUM (test code = 8.3 mg/dL 8.6-10.6 L 0444430381) eGFR (test code = mL/min/1.73m2 0069405270) POP (test code = POP) Association of [...] tests). Lab Interpretation Abnormal (test code = 91441-4) [facility] [id number] 11:10:29 Test Item Value Reference Range Interpretation Comments APTT Patient (test code = See_Comment [ Automated message] 3173-2) The system [employer] generated this result transmitted ref erence range: 26 - 36 Seconds. The re ference range was not u sed to interpret this result as normal/abnor mal. Lab Interpretation (test Normal code = 83527-3) [facility] PARTIAL THRMPLAS [id number] 11:10:29 Test Item Value Reference Range Interpretation Comments APTT Patient (test code = See_Comment [ Automated message] 3173-2) The system [employer] generated this result transmitted ref erence range: 26 - 36 Seconds. The re ference range was not u sed to interpret this result as normal/abnor mal. Lab Interpretation (test Normal code = 34447-9) [facility] [id number] 11:10:29 Test Item Value Reference Range Interpretation Comments APTT Patient (test code = See_Comment [ Automated message] 3173-2) The system [employer] generated this result transmitted ref erence range: 26 - 36 Seconds. The re ference range was not u sed to interpret this result as normal/abnor mal. Lab Interpretation (test Normal code = 26316-4) [facility] / [id number] 11:10:28 Test Item Value Reference Range Interpretation Comments PROTIME PATIENT (test See_Comment H [Auto mated message] code = 5964-2) The system [employer] generated this result transmitted ref erence range: 10.1 - 1 2.6 Seconds. The reference range was not used to int erpret this result as normal/abnormal . INR (test code = 6301-6) Nor mal INR <1.1; Warfarin Therap eutic range 2.0 to 3. 0 or 2.5 to 3.5, dep ending upon the indica tions. Lab Interpretation (test Abnormal code = 64330-3) [facility] / [id number] 11:10:28 Test Item Value Reference Range Interpretation Comments PROTIME PATIENT (test See_Comment H [Auto mated message] code = 5964-2) The system [employer] generated this result transmitted ref erence range: 10.1 - 1 2.6 Seconds. The reference range was not used to int erpret this result as normal/abnormal . INR (test code = 6301-6) Nor mal INR <1.1; Warfarin Therap eutic range 2.0 to 3. 0 or 2.5 to 3.5, dep ending upon the indica tions. Lab Interpretation (test Abnormal code = 29965-9) [facility] / [id number] 11:10:28 Test Item Value Reference Range Interpretation Comments PROTIME PATIENT (test See_Comment H [Auto mated message] code = 5964-2) The system [employer] generated this result transmitted ref erence range: 10.1 - 1 2.6 Seconds. The reference range was not used to int erpret this result as normal/abnormal . INR (test code = 6301-6) Nor mal INR <1.1; Warfarin Therap eutic range 2.0 to 3. 0 or 2.5 to 3.5, dep ending upon the indica tions. Lab Interpretation (test Abnormal code = 60355-3) [facility] [id number] 11:00:28 Test Item Value Reference Range Interpretation Comments WBC (test code = 6690-2) See_Comment H [A utomated message] The system [employer] generated this result transmit qing reference range : 4.20 - 10.70 10*3/?L. The reference range was not used to interpret this result as normal/abnormal . RBC (test code = 789-8) See_Comment L [Au tomated message] The system [employer] generated this result transmit qing reference range [...] See_Comment H [Au tomated message] The system [facility] generated this result transmit qing reference range : 150 - 328 10*3/?L. The reference range was not used to interpret this result as normal/abnormal . MPV (test code = 9.1 fL 9.8-13.0 L 92300-6) RDW-CV (test code = 15.4 % 12.1-15.4 788-0) RDW-SD (test code = 49.9 fL 38.5-51.6 02857-4) NRBC x10^3 (test code = See_Comment [Au tomated message] 4905782449) The system [facility] generated this result transmit qing reference range : 10*3/?L. The reference range was not used to interpret this result as normal/abnormal . NRBC/100 WBC (test code See_Comment [Au tomated message] = 0996616292) The system [facility] generated this result transmit qing reference range : 0.0 - 10.0 /100 WBC s. The reference r jalen was not used to interpret this result as normal/abnormal . IPF % (test code = 2197916074) Lab Interpretation (test Abnormal code = 51295-7) [facility] WITHOUT [id number] 11:00:28 Test Item Value Reference Range Interpretation Comments WBC (test code = 6690-2) See_Comment H [A utomated message] The system [facility] generated this result transmit qing reference range : 4.20 - 10.70 10*3/?L. The reference range was not used to interpret this result as normal/abnormal . RBC (test code = 789-8) See_Comment L [Au tomated message] The system [facility] generated this result transmit qing reference [...] See_Comment H [Au tomated message] The system [facility] [employer] generated this result transmit qing reference range : 150 - 328 10*3/?L. The reference range was not used to interpret this result as normal/abnormal . MPV (test code = 9.1 fL 9.8-13.0 L 01076-4) RDW-CV (test code = 15.4 % 12.1-15.4 788-0) RDW-SD (test code = 49.9 fL 38.5-51.6 19272-5) NRBC x10^3 (test code = See_Comment [Au tomated message] 9285049124) The system [facility] [employer] generated this result transmit qing reference range : 10*3/?L. The reference range was not used to interpret this result as normal/abnormal . NRBC/100 WBC (test code See_Comment [Au tomated message] = 0113677802) The system [facility] generated this result transmit qing reference range : 0.0 - 10.0 /100 WBC s. The reference r jalen was not used to interpret this result as normal/abnormal . IPF % (test code = 2014223539) Lab Interpretation (test Abnormal code = 58554-1) [facility] RBC (in units), 1 Units 2021-03-28 04:56:39 Test Item Value Reference Range Interpretation Comments Cross Match Result Compatible (test code = 4409) ISBT Blood Type Code (test code = 320788) Unit Blood Type (test A Pos code = 4410) Unit Number (test [id number] code = 4411) Blood Expiration Date & Time (test code = 495549) Status Information Issued (test code = 4412) Product Red Blood Cells Identification (test code = 4413) Product Code (test [id number] Performed at [facility] code = 4414) Laboratory Services - [facility] Blood [address] [place] [address]Vusp Free: [phone] A No. [id number] [facility] Packed RBC (in units), 1 Units 2021-03-28 04:56:39 Test Item Value Reference Range Interpretation Comments Cross Match Result Compatible (test code = 4409) ISBT Blood Type Code (test code = 943130) Unit Blood Type (test A Pos code = 4410) Unit Number (test [id number] code = 4411) Blood Expiration Date & Time (test code = 046363) Status Information Issued (test code = 4412) Product Red Blood Cells Identification (test code = 4413) Product Code (test V8570I40 Performed at [facility] code = 4414) Laboratory Services - [facility] Blood [address] s [address]Xrzs Free: [phone] A No. [id number] [facility] [id number] 03:47:19 Test Item Value Reference Range Interpretation Comments WBC (test code = 6690-2) See_Comment H [A utomated message] The system [employer] generated this result transmit qing reference range : 4.20 - 10.70 10*3/?L. The reference range was not used to interpret this result as normal/abnormal . RBC (test code = 789-8) See_Comment L [Au tomated message] The system [employer] generated this result transmit qing reference range [...] See_Comment H [Au tomated message] The system [facility] generated this result transmit qing reference range : 150 - 328 10*3/?L. The reference range was not used to interpret this result as normal/abnormal . MPV (test code = 9.0 fL 9.8-13.0 L 25579-4) RDW-CV (test code = 15.5 % 12.1-15.4 H 788-0) RDW-SD (test code = 51.8 fL 38.5-51.6 H 45455-8) NRBC x10^3 (test code = See_Comment [Au tomated message] 0151679334) The system [facility] generated this result transmit qing reference range : 10*3/?L. The reference range was not used to interpret this result as normal/abnormal . NRBC/100 WBC (test code See_Comment [Au tomated message] = 6889894992) The system [facility] generated this result transmit qing reference range : 0.0 - 10.0 /100 WBC s. The reference r jalen was not used to interpret this result as normal/abnormal . IPF % (test code = 1132680646) Lab Interpretation (test Abnormal code = 76138-3) [facility] WITHOUT [id number] 03:47:19 Test Item Value Reference Range Interpretation Comments WBC (test code = 6690-2) See_Comment H [A utomated message] The system [facility] generated this result transmit qing reference range : 4.20 - 10.70 10*3/?L. The reference range was not used to interpret this result as normal/abnormal . RBC (test code = 789-8) See_Comment L [Au tomated message] The system [facility] generated this result transmit qing reference [...] See_Comment H [Au tomated message] The system [employer] generated this result transmit qing reference range : 150 - 328 10*3/?L. The reference range was not used to interpret this result as normal/abnormal . MPV (test code = 9.0 fL 9.8-13.0 L 40524-2) RDW-CV (test code = 15.5 % 12.1-15.4 H 788-0) RDW-SD (test code = 51.8 fL 38.5-51.6 H 67277-0) NRBC x10^3 (test code = See_Comment [Au tomated message] 8946166042) The system [employer] generated this result transmit qing reference range : 10*3/?L. The reference range was not used to interpret this result as normal/abnormal . NRBC/100 WBC (test code See_Comment [Au tomated message] = 7372730891) The system [facility] generated this result transmit qing reference range : 0.0 - 10.0 /100 WBC s. The reference r jalen was not used to interpret this result as normal/abnormal . IPF % (test code = 4055973828) Lab Interpretation (test Abnormal code = 82517-2) [facility] CONSULT [id number] 00:38:08 LEUKOCYTOSIS WITH ABSOLUTE NEUTROPHILIA. NORMOCYTIC NORMOCHROMIC ANEMIA. THROMBOCYTOSIS.[facility] CONSULT INTERPRETATION 2021-03-28 00:38:08LEUKOCYTOSIS WITH ABSOLUTE NEUTROPHILIA. NORMOCYTIC NORMOCHROMIC ANEMIA. THROMBOCYTOSIS.[facility] CONSULT [id number] 00:38:08LEUKOCYTOSIS WITH ABSOLUTE NEUTROPHILIA. NORMOCYTIC NORMOCHROMIC ANEMIA. THROMBOCYTOSIS.[facility] WITHOUT [id number] 22:31:43 Test Item Value Reference Range Interpretation Comments WBC (test code = 6690-2) See_Comment H [A utomated message] The system [employer] generated this result transmit qing reference range : 4.20 - 10.70 10*3/?L. The reference range was not used to interpret this result as normal/abnormal . RBC (test code = 789-8) See_Comment L [Au tomated message] The system [employer] generated this result transmit qing reference range [...] See_Comment H [Au tomated message] The system [facility] generated this result transmit qing reference range : 150 - 328 10*3/?L. The reference range was not used to interpret this result as normal/abnormal . MPV (test code = 9.4 fL 9.8-13.0 L 93459-0) RDW-CV (test code = 15.4 % 12.1-15.4 788-0) RDW-SD (test code = 52.7 fL 38.5-51.6 H 54618-7) NRBC x10^3 (test code = See_Comment [Au tomated message] 9884890453) The system [employer] generated this result transmit qing reference range : 10*3/?L. The reference range was not used to interpret this result as normal/abnormal . NRBC/100 WBC (test code See_Comment [Au tomated message] = 0867098177) The system [facility] generated this result transmit qing reference range : 0.0 - 10.0 /100 WBC s. The reference r jalen was not used to interpret this result as normal/abnormal . IPF % (test code = 2985029073) Lab Interpretation (test Abnormal code = 84865-5) [facility] WITHOUT [id number] 22:31:43 Test Item Value Reference Range Interpretation Comments WBC (test code = 6690-2) See_Comment H [A utomated message] The system [facility] generated this result transmit qing reference range : 4.20 - 10.70 10*3/?L. The reference range was not used to interpret this result as normal/abnormal . RBC (test code = 789-8) See_Comment L [Au tomated message] The system [facility] generated this result transmit qing reference [...] See_Comment H [Au tomated message] The system [facility] generated this result transmit qing reference range : 150 - 328 10*3/?L. The reference range was not used to interpret this result as normal/abnormal . MPV (test code = 9.4 fL 9.8-13.0 L 17238-8) RDW-CV (test code = 15.4 % 12.1-15.4 788-0) RDW-SD (test code = 52.7 fL 38.5-51.6 H 84712-4) NRBC x10^3 (test code = See_Comment [Au tomated message] 8957555196) The system [facility] generated this result transmit qing reference range : 10*3/?L. The reference range was not used to interpret this result as normal/abnormal . NRBC/100 WBC (test code See_Comment [Au tomated message] = 0258664038) The system [facility] generated this result transmit qing reference range : 0.0 - 10.0 /100 WBC s. The reference r jlaen was not used to interpret this result as normal/abnormal . IPF % (test code = 3203891960) Lab Interpretation (test Abnormal code = 17495-3) [facility] GLUCOSE (AUTOMATED)2021-03-27 22:21:31 Test Item Value Reference Range Interpretation Comments POCT GLU (test code = 3855064002) 133 mg/dL 70-110 H Lab Interpretation (test code = Abnormal 54627-3) [facility] GLUCOSE (AUTOMATED)2021-03-27 22:21:31 Test Item Value Reference Range Interpretation Comments POCT GLU (test code = 6984020836) 133 mg/dL 70-110 H Lab Interpretation (test code = Abnormal 37628-8) [facility] [id number] 21:30:09 Test Item Value Reference Range Interpretation Comments JIM (test code = Negative Negative 3111488830) POP (test code = POP) Negative - No Anti-Nuclear Antibodies detected by IFA.Positive - JIM IFA screen performed with a 1:80 dilution in adults and a 1:40 dilution in pediatrics. Any JIM "Positive" will have titer performed and reported separately.Negative - No Anti-Nuclear Antibodies detected by IFA.Positive - JMI IFA screen performed with a 1:80 dilution in adults and a 1:40 dilution in pediatrics. Any JIM "Positive" will have titer performed and reported separately. Lab Interpretation (test Normal code = 28934-6) [facility] [id number] 21:30:09 Test Item Value Reference Range Interpretation Comments JIM (test code = Negative Negative 3540181649) POP (test code = POP) Negative - [...] separately. Lab Interpretation (test Normal code = 00864-3) [facility] [id number] 21:30:09 Test Item Value Reference Range Interpretation Comments JIM (test code = Negative Negative 7451334361) POP (test code = POP) Negative - [...] separately. Lab Interpretation (test Normal code = 08196-6) [facility] ONLY - SYPHILIS [id number] 18:20:12 Test Item Value Reference Range Interpretation Comments Syphilis IgG/IgM (test Non-reactive Non-reactive code = 30219-8) POP (test code = POP) Non-reactive - No serologic evidence of T. pallidum infection. Cannot exclude incubating or early syphilis. Submit a second specimen in 2-4 weeks if syphilis is clinically suspected. Equivocal - Further testing to follow. Reactive - Further testing to follow. Lab Interpretation (test Normal code = 87179-7) [facility] ONLY - SYPHILIS [id number] 18:20:12 Test Item Value Reference Range Interpretation Comments Syphilis IgG/IgM (test Non-reactive Non-reactive code = 83780-0) POP (test code = POP) Non-reactive - No serologic evidence of T. pallidum infection. Cannot exclude incubating or early syphilis. Submit a second specimen in 2-4 weeks if syphilis is clinically suspected. Equivocal - Further testing to follow. Reactive - Further testing to follow. Lab Interpretation (test Normal code = 64933-8) [facility] ONLY - SYPHILIS [id number] 18:20:12 Test Item Value Reference Range Interpretation Comments Syphilis IgG/IgM (test Non-reactive Non-reactive code = 16736-4) POP (test code = POP) Non-reactive - No serologic evidence of T. pallidum infection. Cannot exclude incubating or early syphilis. Submit a second specimen in 2-4 weeks if syphilis is clinically suspected. Equivocal - Further testing to follow. Reactive - Further testing to follow. Lab Interpretation (test Normal code = 74823-8) [facility] [id number] 16:53:08 Test Item Value Reference Range Interpretation Comments ABO & RH (test code A POSITIVE Performe d at [facility] = 20) Laboratory Serv ices - GAL Blood [facility] [place] [address] s [id number] Free: [phone] A No. [id number] IAT (test code = Negative Performed a t [facility] 1185) Laboratory [facility] Blood [address] s [address]Syzx Free: [phone] A No. [id number] [facility] [id number] 16:53:08 Test Item Value Reference Range Interpretation Comments ABO & RH (test code A POSITIVE Performe d at [facility] = 20) Laboratory [facility] Blood [address] s [address]Jvni Free: [phone] A No. [id number] IAT (test code = Negative Performed a t [facility] 1185) Laboratory [facility] Blood [address] s [id number] Free: [phone] A No. [id number] [facility] [id number] 16:53:08 Test Item Value Reference Range Interpretation Comments ABO & RH (test code A POSITIVE Performe d at [facility] = 20) Laboratory [facility] Blood [address] s [id number] Free: [phone] A No. [id number] IAT (test code = Negative Performed a t [facility] 1185) Laboratory [facility] Blood [address] s [id number] Free: [phone] A No. [id number] [facility] Only)2021-03-27 16:31:51 Test Item Value Reference Range Interpretation Comments ABO & RH (test code A Positive Performe d at [facility] = 20) Laboratory [facility] Blood [address] s [address]Niut Free: [phone] A No. [id number] [facility] Confirmation (Lab Only)2021-03-27 16:31:51 Test Item Value Reference Range Interpretation Comments ABO & RH (test code A Positive Performe d at [facility] = 20) Laboratory Serv [facility] Blood [facility]3 [address] [facility] s [id number] Free: [phone] A No. [id number] [facility] Confirmation (Lab Only)2021-03-27 16:31:51 Test Item Value Reference Range Interpretation Comments ABO & RH (test code A Positive Performe d at [facility] = 20) Laboratory Serv [facility] Blood [facility]3 [address] [facility] s [address]Tsmh Free: [phone] A No. [id number] [facility] [id number] 16:00:28 Test Item Value Reference Range Interpretation Comments HAPTOGLOB (test code = 2793538874) 377 mg/dL 16-200 H Lab Interpretation (test code = Abnormal 23758-7) [facility] [id number] 16:00:28 Test Item Value Reference Range Interpretation Comments HAPTOGLOB (test code = 2334462594) 377 mg/dL 16-200 H Lab Interpretation (test code = Abnormal 01782-7) [facility] [id number] 16:00:28 Test Item Value Reference Range Interpretation Comments HAPTOGLOB (test code = 4816868713) 377 mg/dL 16-200 H Lab Interpretation (test code = Abnormal 60074-6) [facility] GLUCOSE (AUTOMATED)2021-03-27 14:14:57 Test Item Value Reference Range Interpretation Comments POCT GLU (test code = 4939179008) 104 mg/dL 70-110 Lab Interpretation (test code = Normal 35635-4) [facility] GLUCOSE (AUTOMATED)2021-03-27 14:14:57 Test Item Value Reference Range Interpretation Comments POCT GLU (test code = 1145770134) 104 mg/dL 70-110 Lab Interpretation (test code = Normal 27635-5) [facility] WITH [id number] 11:09:24 Test Item Value Reference Range Interpretation [...] (test code = 51.7 fL 38.5-51.6 H 96691-5) RDW-CV (test code = 15.1 % 12.1-15.4 788-0) PLT (test code = See_Comment H [Automated 777-3) message] The system which generated this result transmit qing reference range : 150 - 328 10*3/ ?L. The reference range was not u sed to interpret th is result as normal/abnormal . MPV (test code = 9.1 fL 9.8-13.0 L 88324-0) NRBC/100 WBC (test See_Comment [Automat ed code = 4884013388) message] The system which generated this result transmit qing reference range : 0.0 - 10.0 /100 WBCs. The reference range was not used to interpret this result as normal/abnormal . NRBC x10^3 (test code See_Comment [Auto mated = 0482577050) message] The system which generated this result transmit qing reference range : 10*3/?L. The reference range was not used to interpret this result as normal/abnormal . GRAN MAT (NEUT) % 77.2 % (test code = 770-8) IMM GRAN % (test code 1.90 % = 9934303882) LYMPH % (test code = 14.7 % 736-9) MONO % (test code = 4.6 % 5905-5) EOS % (test code = 1.3 % 713-8) BASO % (test code = 0.3 % 706-2) GRAN MAT x10^3(ANC) 15.48 10*3/uL 1.99-6.95 H (test code = 3063022275) IMM GRAN x10^3 (test 0.38 10*3/uL 0.00-0.06 H code = 5408304147) LYMPH x10^3 (test code 2.96 10*3/uL 1.09-3.23 = 731-0) MONO x10^3 (test code 0.92 10*3/uL 0.36-1.02 = 742-7) EOS x10^3 (test code = 0.27 10*3/uL 0.06-0.53 711-2) BASO x10^3 (test code 0.06 10*3/uL 0.01-0.09 = 704-7) POLYCHROMASIA (test 2+ See_Comment [Automa qing code = 95927-1) message] The system which generated this result transmit qing reference range : 2+. The referen ce range was not u sed to interpret th is result as normal/abnormal . Lab Interpretation Abnormal (test code = 18453-0) [facility] WITH [id number] 11:09:24 Test Item Value Reference Range Interpretation Comments WBC (test code = See_Comment H [Automated 7990-2) message] The system which generated this result transmit qing reference range : 4.20 - 10.70 10*3/?L. The reference range was not used to interpret this result as normal/abnormal . RBC (test code = See_Comment L [Automated 279-8) message] The system which generated this result [...] (test code = 51.7 fL 38.5-51.6 H 79310-0) RDW-CV (test code = 15.1 % 12.1-15.4 788-0) PLT (test code = See_Comment H [Automated 777-3) message] The system which generated this result transmit qing reference range : 150 - 328 10*3/ ?L. The reference range was not u sed to interpret th is result as normal/abnormal . MPV (test code = 9.1 fL 9.8-13.0 L 58005-5) NRBC/100 WBC (test See_Comment [Automat ed code = 3896326488) message] The system which generated this result transmit qing reference range : 0.0 - 10.0 /100 WBCs. The reference range was not used to interpret this result as normal/abnormal . NRBC x10^3 (test code See_Comment [Auto mated = 7002548416) message] The system which generated this result transmit qing reference range : 10*3/?L. The reference range was not used to interpret this result as normal/abnormal . GRAN MAT (NEUT) % 77.2 % (test code = 770-8) IMM GRAN % (test code 1.90 % = 4541875805) LYMPH % (test code = 14.7 % 736-9) MONO % (test code = 4.6 % 5905-5) EOS % (test code = 1.3 % 713-8) BASO % (test code = 0.3 % 706-2) GRAN MAT x10^3(ANC) 15.48 10*3/uL 1.99-6.95 H (test code = 3359938382) IMM GRAN x10^3 (test 0.38 10*3/uL 0.00-0.06 H code = 1940762088) LYMPH x10^3 (test code 2.96 10*3/uL 1.09-3.23 = 731-0) MONO x10^3 (test code 0.92 10*3/uL 0.36-1.02 = 742-7) EOS x10^3 (test code = 0.27 10*3/uL 0.06-0.53 711-2) BASO x10^3 (test code 0.06 10*3/uL 0.01-0.09 = 704-7) POLYCHROMASIA (test 2+ See_Comment [Automa qing code = 72061-2) message] The system which generated this result transmit qing reference range : 2+. The referen ce range was not u sed to interpret th is result as normal/abnormal . Lab Interpretation Abnormal (test code = 49775-4) [facility] CenterPROT[facility] / [id number] 10:05:30 Test Item Value Reference Range Interpretation Comments PROTIME PATIENT (test See_Comment H [Auto mated message] code = 5964-2) The system [employer] generated this result transmitted ref erence range: 10.1 - 1 2.6 Seconds. The reference range was not used to int erpret this result as normal/abnormal . INR (test code = 6301-6) Nor mal INR <1.1; Warfarin Therap eutic range 2.0 to 3. 0 or 2.5 to 3.5, dep ending upon the indica tions. Lab Interpretation (test Abnormal code = 22959-0) [facility] CenterPROTHR[facility] / [id number] 10:05:30 Test Item Value Reference Range Interpretation Comments PROTIME PATIENT (test See_Comment H [Auto mated message] code = 5964-2) The system [employer] generated this result transmitted ref erence range: 10.1 - 1 2.6 Seconds. The reference range was not used to int erpret this result as normal/abnormal . INR (test code = 6301-6) Nor mal INR <1.1; Warfarin Therap eutic range 2.0 to 3. 0 or 2.5 to 3.5, dep ending upon the indica tions. Lab Interpretation (test Abnormal code = 63787-8) [facility]2021-03-26 22:44:42 Test Item Value Reference Range Interpretation Comments POCT GLU (test code = 6734736029) 145 mg/dL 70-110 H Lab Interpretation (test code = Abnormal 89407-7) [facility])2021-03-26 22:44:42 Test Item Value Reference Range Interpretation Comments POCT GLU (test code = 1303111170) 145 mg/dL 70-110 H Lab Interpretation (test code = Abnormal 29304-7) [facility] [id number] 20:57:41 Test Item Value Reference Range Interpretation Comments RETIC Count Automated 5.85 % 0.59-2.24 H (test code = 6348709025) RETIC Absolute Count See_Comment H [Autom ated message] (test code = 4979784978) The system which generated this result transmitted ref erence range: 0.0260 - 0.1170 10*6/?L. The reference range was not used to int erpret this result as normal/abnormal . IRF % (test code = 38.60 % 2.00-19.10 H 2355060919) RETIC-HE (test code = 24.8 pg 27.3-36.4 L 0781073358) Lab Interpretation (test Abnormal code = 25701-8) [facility] [id number] 20:57:41 Test Item Value Reference Range Interpretation Comments RETIC Count Automated 5.85 % 0.59-2.24 H (test code = 5515861555) RETIC Absolute Count See_Comment H [Autom ated message] (test code = 7999197091) The system which generated this result transmitted ref erence range: 0.0260 - 0.1170 10*6/?L. The reference range was not used to int erpret this result as normal/abnormal . IRF % (test code = 38.60 % 2.00-19.10 H 2100093846) RETIC-HE (test code = 24.8 pg 27.3-36.4 L 9204585482) Lab Interpretation (test Abnormal code = 20134-8) [facility] [id number] 20:57:41 Test Item Value Reference Range Interpretation Comments RETIC Count Automated 5.85 % 0.59-2.24 H (test code = 2423486811) RETIC Absolute Count See_Comment H [Autom ated message] (test code = 0057639920) The system which generated this result transmitted ref erence range: 0.0260 - 0.1170 10*6/?L. The reference range was not used to int erpret this result as normal/abnormal . IRF % (test code = 38.60 % 2.00-19.10 H 5446424739) RETIC-HE (test code = 24.8 pg 27.3-36.4 L 7088511683) Lab Interpretation (test Abnormal code = 31141-4) [facility] CenterLACTATE [id number] 20:48:58 Test Item Value Reference Range Interpretation Comments LDH (test code = 8587849049) 411 U/L 300-600 Lab Interpretation (test code = Normal 25164-4) [facility] [id number] 20:48:58 Test Item Value Reference Range Interpretation Comments LDH (test code = 9370007331) 411 U/L 300-600 Lab Interpretation (test code = Normal 33745-5) [facility] [id number] 20:48:58 Test Item Value Reference Range Interpretation Comments LDH (test code = 5031659807) 411 U/L 300-600 Lab Interpretation (test code = Normal 20717-3) [facility] CenterHEPAT[facility] FUNCTION PANEL (78105) (ALB,T.PRO,BILI T,BU/BC,ALT,AST,ALK PHOS)2021-03-26 20:36:03 Test Item Value Reference Range Interpretation Comments TOTAL BILI (test code = 0336373113) 0.8 mg/dL 0.1-1.1 BILI UNCON (test code = 6550113259) 0.3 mg/dL 0.1-1.1 BILI CONJ (test code = 4616104478) 0.0 mg/dL 0.0-0.3 T PROTEIN (test code = 2468104556) 6.4 g/dL 6.3-8.2 ALBUMIN (test code = 2201602396) 3.2 g/dL 3.5-5.0 L ALK PHOS (test code = 0694080144) 90 U/L 34-122 ALTv (test code = 1742-6) 40 U/L 5-50 AST(SGOT) (test code = 9181579207) 68 U/L 13-40 H Lab Interpretation (test code = Abnormal 03911-7) [facility] (98708) (ALB,T.PRO,BILI T,BU/BC,ALT,AST,ALK PHOS)2021-03-26 20:36:03 Test Item Value Reference Range Interpretation Comments TOTAL BILI (test code = 5398237873) 0.8 mg/dL 0.1-1.1 BILI UNCON (test code = 3745048460) 0.3 mg/dL 0.1-1.1 BILI CONJ (test code = 0818657995) 0.0 mg/dL 0.0-0.3 T PROTEIN (test code = 2469290604) 6.4 g/dL 6.3-8.2 ALBUMIN (test code = 5889971285) 3.2 g/dL 3.5-5.0 L ALK PHOS (test code = 3183006801) 90 U/L 34-122 ALTv (test code = 1742-6) 40 U/L 5-50 AST(SGOT) (test code = 0761436557) 68 U/L 13-40 H Lab Interpretation (test code = Abnormal 41632-0) [facility] CenterHEP[facility] (22665) (ALB,T.PRO,BILI T,BU/BC,ALT,AST,ALK PHOS)2021-03-26 20:36:03 Test Item Value Reference Range Interpretation Comments TOTAL BILI (test code = 4133603564) 0.8 mg/dL 0.1-1.1 BILI UNCON (test code = 3883474196) 0.3 mg/dL 0.1-1.1 BILI CONJ (test code = 9213582988) 0.0 mg/dL 0.0-0.3 T PROTEIN (test code = 9217258286) 6.4 g/dL 6.3-8.2 ALBUMIN (test code = 1807488503) 3.2 g/dL 3.5-5.0 L ALK PHOS (test code = 4071629417) 90 U/L 34-122 ALTv (test code = 1742-6) 40 U/L 5-50 AST(SGOT) (test code = 7855475487) 68 U/L 13-40 H Lab Interpretation (test code = Abnormal 49172-4) [facility] WITH [id number] 19:26:57 Test Item Value Reference Range Interpretation Comments HIV Negative Negative Semi-quantitative (test code = 59349-6) POP (test code = Non-reactive for HIV-1 POP) antigen and HIV-1/HIV-2 antibodies. ?No laboratory evidence of HIV infection. ?Repeat in 2-4 weeks if acute HIV infection is suspected. [facility] WITH [id number] 19:26:57 Test Item Value Reference Range Interpretation Comments HIV Negative Negative Semi-quantitative (test code = 81398-5) POP (test code = Non-reactive for HIV-1 POP) antigen and HIV-1/HIV-2 antibodies. ?No laboratory evidence of HIV infection. ?Repeat in 2-4 weeks if acute HIV infection is suspected. [facility] 1/2 AG-AB WITH [id number] 19:26:57 Test Item Value Reference Range Interpretation Comments HIV Negative Negative Semi-quantitative (test code = 61280-0) POP (test code = Non-reactive for HIV-1 POP) antigen and HIV-1/HIV-2 antibodies. ?No laboratory evidence of HIV infection. ?Repeat in 2-4 weeks if acute HIV infection is suspected. [facility] GLUCOSE (AUTOMATED)2021-03-26 18:22:48 Test Item Value Reference Range Interpretation Comments POCT GLU (test code = 3207000645) 127 mg/dL 70-110 H Lab Interpretation (test code = Abnormal 74182-4) [facility] GLUCOSE (AUTOMATED)2021-03-26 18:22:48 Test Item Value Reference Range Interpretation Comments POCT GLU (test code = 3508655262) 127 mg/dL 70-110 H Lab Interpretation (test code = Abnormal 09093-9) [facility] GLUCOSE (AUTOMATED)2021-03-26 14:52:39 Test Item Value Reference Range Interpretation Comments POCT GLU (test code = 6185004198) 144 mg/dL 70-110 H Lab Interpretation (test code = Abnormal 78284-2) [facility] GLUCOSE (AUTOMATED)2021-03-26 14:52:39 Test Item Value Reference Range Interpretation Comments POCT GLU (test code = 2071715958) 144 mg/dL 70-110 H Lab Interpretation (test code = Abnormal 15761-7) [facility] WITHOUT [id number] 12:12:23 Test Item Value Reference Range Interpretation Comments WBC (test code = 6690-2) See_Comment H [A utomated message] The system [employer] generated this result transmit qing reference range : 4.20 - 10.70 10*3/?L. The reference range was not used to interpret this result as normal/abnormal . RBC (test code = 789-8) See_Comment L [Au tomated message] The system [employer] generated this result transmit qing reference range [...] See_Comment H [Au tomated message] The system [employer] generated this result transmit qing reference range : 150 - 328 10*3/?L. The reference range was not used to interpret this result as normal/abnormal . MPV (test code = 9.0 fL 9.8-13.0 L 58331-0) RDW-CV (test code = 14.7 % 12.1-15.4 788-0) RDW-SD (test code = 50.3 fL 38.5-51.6 55924-1) NRBC x10^3 (test code = See_Comment [Au tomated message] 4265438655) The system [employer] generated this result transmit qing reference range : 10*3/?L. The reference range was not used to interpret this result as normal/abnormal . NRBC/100 WBC (test code See_Comment [Au tomated message] = 3871983801) The [facility] this result transmit qing reference range : 0.0 - 10.0 /100 WBC s. The reference r jalen was not used to interpret this result as normal/abnormal . IPF % (test code = 3018693217) Lab Interpretation (test Abnormal code = 65851-3) [facility] WITHOUT [id number] 12:12:23 Test Item Value Reference Range Interpretation Comments WBC (test code = 6690-2) See_Comment H [A utomated message] The system [employer] generated this result transmit qing reference range : 4.20 - 10.70 10*3/?L. The reference range was not used to interpret this result as normal/abnormal . RBC (test code = 789-8) See_Comment L [Au tomated message] The system [employer] generated this result transmit qing reference range [...] See_Comment H [Au tomated message] The system [employer] generated this result transmit qing reference range : 150 - 328 10*3/?L. The reference range was not used to interpret this result as normal/abnormal . MPV (test code = 9.0 fL 9.8-13.0 L 73120-8) RDW-CV (test code = 14.7 % 12.1-15.4 788-0) RDW-SD (test code = 50.3 fL 38.5-51.6 80918-8) NRBC x10^3 (test code = See_Comment [Au tomated message] 5945717410) The system [employer] generated this result transmit qing reference range : 10*3/?L. The reference range was not used to interpret this result as normal/abnormal . NRBC/100 WBC (test code See_Comment [Au tomated message] = 2851209753) The system [employer] generated this result transmit qing reference range : 0.0 - 10.0 /100 WBC s. The reference r jalen was not used to interpret this result as normal/abnormal . IPF % (test code = 9399093056) Lab Interpretation (test Abnormal code = 99436-2) [facility] CULTURE [id number] 03:01:28 Test Item Value Reference Range Interpretation Comments Blood Culture-Aerobic No organisms No growth Previo us (test code = 04138-0) isolated prelim inary verified result was Culture In Progress on 03/21/2021 at 0001 CSTPreviou s preliminary verified result was No growth a t 24 hours on 03/21/2021 at 2101 CSTPreviou s preliminary verified result was No growth a t 48 hours on 03/22/2021 at 2101 CSTPreviou s preliminary verified result was No growth a t 72 hours on 03/23/2021 at 2101 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 Blood No organisms No growth Previous Culture-Anaerobic isolated preliminar y (test code = 39469-7) verifi ed result was Culture In Progress on 03/21/2021 at 0001 CSTPreviou s preliminary verified result was No growth a t 24 hours on 03/21/2021 at 2101 CSTPreviou s preliminary verified result was No growth a t 48 hours on 03/22/2021 at 2101 CSTPreviou s preliminary verified result was No growth a t 72 hours on 03/23/2021 at 2101 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 Lab Interpretation Normal (test code = 12983-9) [facility] CULTURE [id number] 03:01:28 Test Item Value Reference Range Interpretation Comments Blood Culture-Aerobic No organisms No growth Previo us (test code = 94349-2) isolated prelim inary verified result was Culture In Progress on 03/21/2021 at 0001 CSTPreviou s preliminary verified result was No growth a t 24 hours on 03/21/2021 at 2101 CSTPreviou s preliminary verified result was No growth a t 48 hours on 03/22/2021 at 2101 CSTPreviou s preliminary verified result was No growth a t 72 hours on 03/23/2021 at 2101 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 Blood No organisms No growth Previous Culture-Anaerobic isolated preliminar y (test code = 80050-3) verifi ed result was Culture In Progress on 03/21/2021 at 0001 CSTPreviou s preliminary verified result was No growth a t 24 hours on 03/21/2021 at 210 CSTPreviou s preliminary verified result was No growth a t 48 hours on 03/22/2021 at 210 CSTPreviou s preliminary verified result was No growth a t 72 hours on 03/23/2021 at 210 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 Lab Interpretation Normal (test code = 33994-6) [facility] CULTURE [id number] 03:01:28 Test Item Value Reference Range Interpretation Comments Blood Culture-Aerobic No organisms No growth Previo us (test code = 38480-7) isolated prelim inary verified result was Culture In Progress on 03/21/2021 at 0001 CSTPreviou s preliminary verified result was No growth a t 24 hours on 03/21/2021 at 210 CSTPreviou s preliminary verified result was No growth a t 48 hours on 03/22/2021 at 210 CSTPreviou s preliminary verified result was No growth a t 72 hours on 03/23/2021 at 210 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 Blood No organisms No growth Previous Culture-Anaerobic isolated preliminar y (test code = 70752-2) verifi ed result was Culture In Progress on 03/21/2021 at 0001 CSTPreviou s preliminary verified result was No growth a t 24 hours on 03/21/2021 at 210 CSTPreviou s preliminary verified result was No growth a t 48 hours on 03/22/2021 at 210 CSTPreviou s preliminary verified result was No growth a t 72 hours on 03/23/2021 at 210 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 Lab Interpretation Normal (test code = 48812-9) [facility] CULTURE [id number] 02:01:31 Test Item Value Reference Range Interpretation Comments Blood Culture-Aerobic No organisms No growth Previo us (test code = 18978-0) isolated prelim inary verified result was Culture In Progress on 03/20/2021 at 2302 CSTPreviou s preliminary verified result was No growth a t 24 hours on 03/21/2021 at 2000 CSTPreviou s preliminary verified result was No growth a t 48 hours on 03/22/2021 at 2000 CSTPreviou s preliminary verified result was No growth a t 72 hours on 03/23/2021 at 2000 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 Blood No organisms No growth Previous Culture-Anaerobic isolated preliminar y (test code = 73652-6) verifi ed result was Culture In Progress on 03/20/2021 at 2302 CSTPreviou s preliminary verified result was No growth a t 24 hours on 03/21/2021 at 2000 CSTPreviou s preliminary verified result was No growth a t 48 hours on 03/22/2021 at 2000 CSTPreviou s preliminary verified result was No growth a t 72 hours on 03/23/2021 at 2000 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 Lab Interpretation Normal (test code = 28722-3) [facility] C[facility]URE [id number] 02:01:31 Test Item Value Reference Range Interpretation Comments Blood Culture-Aerobic No organisms No growth Previo us (test code = 42214-2) isolated prelim inary verified result was Culture In Progress on 03/20/2021 at 2302 CSTPreviou s preliminary verified result was No growth a t 24 hours on 03/21/2021 at 2000 CSTPreviou s preliminary verified result was No growth a t 48 hours on 03/22/2021 at 2000 CSTPreviou s preliminary verified result was No growth a t 72 hours on 03/23/2021 at 2000 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 Blood No organisms No growth Previous Culture-Anaerobic isolated preliminar y (test code = 09052-0) verifi ed result was Culture In Progress on 03/20/2021 at 2302 CSTPreviou s preliminary verified result was No growth a t 24 hours on 03/21/2021 at 2000 CSTPreviou s preliminary verified result was No growth a t 48 hours on 03/22/2021 at 2000 CSTPreviou s preliminary verified result was No growth a t 72 hours on 03/23/2021 at 2000 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 Lab Interpretation Normal (test code = 87320-1) [facility] 22:50:12 Test Item Value Reference Range Interpretation Comments POCT GLU (test code = 6315388394) 129 mg/dL 70-110 H Lab Interpretation (test code = Abnormal 76286-0) [facility] 22:50:12 Test Item Value Reference Range Interpretation Comments POCT GLU (test code = 9609856460) 129 mg/dL 70-110 H Lab Interpretation (test code = Abnormal 72246-1) [facility]-[id number] 21:20:20 Test Item Value Reference Interpretation Comments Range D-DIMER (test code = See_Comment H [Autom ated 7294056593) message] The system which generated this result [...] diagnosis. Lab Interpretation Abnormal (test code = 16257-9) [facility]-[id number] 21:20:20 Test Item Value Reference Interpretation Comments Range D-DIMER (test code = See_Comment H [Autom ated 2901780049) message] The system which generated this result [...] diagnosis. Lab Interpretation Abnormal (test code = 85565-9) [id number] 21:20:20 Test Item Value Reference Interpretation Comments Range D-DIMER (test code = See_Comment H [Autom ated 6331961019) message] The system which generated this result [...] diagnosis. Lab Interpretation Abnormal (test code = 86361-7) [facility] WITH [id number] 21:10:21 Test Item Value Reference Range Interpretation Comments WBC (test code = See_Comment H [Automated 5390-2) message] The sy stem which generated this result transmitted reference range : 4.20 - 10.70 10*3/?L. The reference range was not used to interpret this result as normal/abnormal . RBC (test code = See_Comment L [Automated 5998) message] The sy stem which generated this [...] RDW-SD (test code = 51.2 fL 38.5-51.6 48116-6) RDW-CV (test code = 14.7 % 12.1-15.4 788-0) PLT (test code = See_Comment H [Automated 777-3) message] The sy stem which generated this result transmitted reference range : 150 - 328 10*3/ ?L. The reference r jalen was not used to interpret this result as normal/abnormal . MPV (test code = 9.2 fL 9.8-13.0 L 73898-9) NRBC/100 WBC (test See_Comment [Automat ed code = 1446351235) message] The system which generated this result transmitted reference range : 0.0 - 10.0 /100 WBCs. The refer ence range was not u sed to interpret th is result as normal/abnormal . NRBC x10^3 (test code See_Comment [Auto mated = 9332296373) message] The s ystem which generated this result transmitted reference range : 10*3/?L. The reference range was not used to interpret this result as normal/abnormal . GRAN MAT (NEUT) % 77.4 % (test code = 770-8) IMM GRAN % (test code 0.50 % = 1790196927) LYMPH % (test code = 14.1 % 736-9) MONO % (test code = 6.3 % 5905-5) EOS % (test code = 1.2 % 713-8) BASO % (test code = 0.5 % 706-2) GRAN MAT x10^3(ANC) 9.19 10*3/uL 1.99-6.95 H (test code = 4234461670) IMM GRAN x10^3 (test 0.06 10*3/uL 0.00-0.06 code = 7770932782) LYMPH x10^3 (test code 1.67 10*3/uL 1.09-3.23 = 731-0) MONO x10^3 (test code 0.75 10*3/uL 0.36-1.02 = 742-7) EOS x10^3 (test code = 0.14 10*3/uL 0.06-0.53 711-2) BASO x10^3 (test code 0.06 10*3/uL 0.01-0.09 = 704-7) Lab Interpretation Abnormal (test code = 60472-2) [facility] WITH [id number] 21:10:21 Test Item Value Reference Range Interpretation [...] RDW-SD (test code = 51.2 fL 38.5-51.6 50643-8) RDW-CV (test code = 14.7 % 12.1-15.4 788-0) PLT (test code = See_Comment H [Automated 777-3) message] The sy stem which generated this result transmitted reference range : 150 - 328 10*3/ ?L. The reference r jalen was not used to interpret this result as normal/abnormal . MPV (test code = 9.2 fL 9.8-13.0 L 57434-5) NRBC/100 WBC (test See_Comment [Automat ed code = 6384760532) message] The system which generated this result transmitted reference range : 0.0 - 10.0 /100 WBCs. The refer ence range was not u sed to interpret th is result as normal/abnormal . NRBC x10^3 (test code See_Comment [Auto mated = 4713661994) message] The s ystem which generated this result transmitted reference range : 10*3/?L. The reference range was not used to interpret this result as normal/abnormal . GRAN MAT (NEUT) % 77.4 % (test code = 770-8) IMM GRAN % (test code 0.50 % = 5693193796) LYMPH % (test code = 14.1 % 736-9) MONO % (test code = 6.3 % 5905-5) EOS % (test code = 1.2 % 713-8) BASO % (test code = 0.5 % 706-2) GRAN MAT x10^3(ANC) 9.19 10*3/uL 1.99-6.95 H (test code = 7608314939) IMM GRAN x10^3 (test 0.06 10*3/uL 0.00-0.06 code = 5346730394) LYMPH x10^3 (test code 1.67 10*3/uL 1.09-3.23 = 731-0) MONO x10^3 (test code 0.75 10*3/uL 0.36-1.02 = 742-7) EOS x10^3 (test code = 0.14 10*3/uL 0.06-0.53 711-2) BASO x10^3 (test code 0.06 10*3/uL 0.01-0.09 = 704-7) Lab Interpretation Abnormal (test code = 98506-3) [facility]-REACTIVE [id number] 18:25:43 Test Item Value Reference Range Interpretation Comments CRP (test code = 0036932292) 1.6 mg/dL <0.8 H Lab Interpretation (test code = Abnormal 25576-4) [facility]-REACTIVE [id number] 18:25:43 Test Item Value Reference Range Interpretation Comments CRP (test code = 3040096527) 1.6 mg/dL <0.8 H Lab Interpretation (test code = Abnormal 60217-4) [facility] [id number] 18:25:43 Test Item Value Reference Range Interpretation Comments CRP (test code = 7836183426) 1.6 mg/dL <0.8 H Lab Interpretation (test code = Abnormal 58116-1) [facility] GLUCOSE (AUTOMATED)2021-03-25 18:08:08 Test Item Value Reference Range Interpretation Comments POCT GLU (test code = 5105016739) 136 mg/dL 70-110 H Lab Interpretation (test code = Abnormal 17850-9) [facility] GLUCOSE (AUTOMATED)2021-03-25 18:08:08 Test Item Value Reference Range Interpretation Comments POCT GLU (test code = 1204263208) 136 mg/dL 70-110 H Lab Interpretation (test code = Abnormal 45500-1) [facility] GLUCOSE (AUTOMATED)2021-03-25 14:38:25 Test Item Value Reference Range Interpretation Comments POCT GLU (test code = 8809784971) 133 mg/dL 70-110 H Lab Interpretation (test code = Abnormal 13401-0) [facility] GLUCOSE (AUTOMATED)2021-03-25 14:38:25 Test Item Value Reference Range Interpretation Comments POCT GLU (test code = 2090186415) 133 mg/dL 70-110 H Lab Interpretation (test code = Abnormal 04931-9) [facility], [id number] 03:28:13 Test Item Value Reference Range Interpretation Comments AMMONIA (test code = 7871356119) <9 9-33 L Lab Interpretation (test code = Abnormal 02477-7) [facility] [id number] 03:28:13 Test Item Value Reference Range Interpretation Comments AMMONIA (test code = 2600513376) <9 9-33 L Lab Interpretation (test code = Abnormal 69500-7) [facility] [id number] 03:28:13 Test Item Value Reference Range Interpretation Comments AMMONIA (test code = 7993461631) <9 9-33 L Lab Interpretation (test code = Abnormal 19841-3) [facility] [id number] 23:35:12 Test Item Value Reference Range Interpretation Comments FERRITIN (test code = 14.1 ng/mL 18.0-464.0 L 0504957182) POP (test code = POP) Biotin has been reported to cause a negative bias, interpret results relative to patient's use of biotin. Lab Interpretation (test Abnormal code = 97104-7) [facility] [id number] 23:35:12 Test Item Value Reference Range Interpretation Comments FERRITIN (test code = 14.1 ng/mL 18.0-464.0 L 8476056655) POP (test code = POP) Biotin has been reported to cause a negative bias, interpret results relative to patient's use of biotin. Lab Interpretation (test Abnormal code = 90773-0) [facility] [id number] 23:35:12 Test Item Value Reference Range Interpretation Comments FERRITIN (test code = 14.1 ng/mL 18.0-464.0 L 0345374829) POP (test code = POP) Biotin has been reported to cause a negative bias, interpret results relative to patient's use of biotin. Lab Interpretation (test Abnormal code = 93287-2) [facility] [id number] 23:31:09 Test Item Value Reference Range Interpretation Comments TSH (test code = See_Comment [Automated message] 6175881673) The system [employer] generated this result transmitted ref erence range: 0.45 - 4 .70 mIU/L. The refe rence range was not u sed to interpret this result as normal/abnor mal. Lab Interpretation (test Normal code = 17299-1) [facility] [id number] 23:31:09 Test Item Value Reference Range Interpretation Comments TSH (test code = See_Comment [Automated message] 7007031045) The system [employer] generated this result transmitted ref erence range: 0.45 - 4 .70 mIU/L. The refe rence range was not u sed to interpret this result as normal/abnor mal. Lab Interpretation (test Normal code = 79591-9) [facility] [id number] 23:31:09 Test Item Value Reference Range Interpretation Comments TSH (test code = See_Comment [Automated message] 8915835673) The system [employer] generated this result transmitted ref erence range: 0.45 - 4 .70 mIU/L. The refe rence range was not u sed to interpret this result as normal/abnor mal. Lab Interpretation (test Normal code = 49213-1) [facility]2021-12-14 23:17:01 Test Item Value Reference Range Interpretation Comments IRON (test code = 6759923801) 26 ug/dL 50-160 L TIBC (test code = 8342993429) 298 ug/dL 250-410 % FE SAT (test code = 3872818746) 9 % 20-50 L Lab Interpretation (test code = Abnormal 64281-7) [facility] [id number] 23:17:01 Test Item Value Reference Range Interpretation Comments IRON (test code = 6650222020) 26 ug/dL 50-160 L TIBC (test code = 9430297821) 298 ug/dL 250-410 % FE SAT (test code = 4378040929) 9 % 20-50 L Lab Interpretation (test code = Abnormal 08529-6) [facility] [id number] 23:17:01 Test Item Value Reference Range Interpretation Comments IRON (test code = 9087009365) 26 ug/dL 50-160 L TIBC (test code = 1032393155) 298 ug/dL 250-410 % FE SAT (test code = 0729783228) 9 % 20-50 L Lab Interpretation (test code = Abnormal 72906-2) [facility] [id number] 22:59:28 Test Item Value Reference Range Interpretation Comments ESR (test code = See_Comment H [Automated message] 9244554568) The system [employer] generated this result transmitted ref erence range: 0 - 10 m m/HR. The reference r jalen was not used to interpret this result as normal/abnor mal. Lab Interpretation (test Abnormal code = 89060-7) [facility] [id number] 22:59:28 Test Item Value Reference Range Interpretation Comments ESR (test code = See_Comment H [Automated message] 7460024140) The system [employer] generated this result transmitted ref erence range: 0 - 10 m m/HR. The reference r jalen was not used to interpret this result as normal/abnor mal. Lab Interpretation (test Abnormal code = 00333-0) [facility] CenterSED[facility] [id number] 22:59:28 Test Item Value Reference Range Interpretation Comments ESR (test code = See_Comment H [Automated message] 9977185401) The system [employer] generated this result transmitted ref erence range: 0 - 10 m m/HR. The reference r jalen was not used to interpret this result as normal/abnor mal. Lab Interpretation (test Abnormal code = 20511-7) [facility] GLUCOSE (AUTOMATED)2021-03-24 21:54:52 Test Item Value Reference Range Interpretation Comments POCT GLU (test code = 2152839723) 95 mg/dL 70-110 Lab Interpretation (test code = Normal 17775-6) [facility] GLUCOSE (AUTOMATED)2021-03-24 21:54:52 Test Item Value Reference Range Interpretation Comments POCT GLU (test code = 9696190248) 95 mg/dL 70-110 Lab Interpretation (test code = Normal 93814-3) [facility] GLUCOSE (AUTOMATED)2021-03-24 17:37:33 Test Item Value Reference Range Interpretation Comments POCT GLU (test code = 8903264971) 97 mg/dL 70-110 Lab Interpretation (test code = Normal 41010-5) [facility] GLUCOSE (AUTOMATED)2021-03-24 17:37:33 Test Item Value Reference Range Interpretation Comments POCT GLU (test code = 7432230031) 97 mg/dL 70-110 Lab Interpretation (test code = Normal 10700-0) [facility] GLUCOSE (AUTOMATED)2021-03-24 13:48:11 Test Item Value Reference Range Interpretation Comments POCT GLU (test code = 0456482783) 96 mg/dL 70-110 Lab Interpretation (test code = Normal 87502-6) [facility] GLUCOSE (AUTOMATED)2021-03-24 13:48:11 Test Item Value Reference Range Interpretation Comments POCT GLU (test code = 9314892030) 96 mg/dL 70-110 Lab Interpretation (test code = Normal 07571-1) [facility] METABOLIC PANEL (NA, K, CL, CO2, GLUCOSE, BUN, CREATININE, CA)2021-03-24 10:53:08 Test Item Value Reference Range Interpretation Comments NA (test code = 136 mmol/L 135-145 8538471089) K (test code = 3.8 mmol/L 3.5-5.0 7076311444) CL (test code = 106 mmol/L 98-108 7990263397) CO2 TOTAL (test code = 22 mmol/L 23-31 L 1261447198) AGAP (test code = 2-16 7029161975) BUN (test code = 15 mg/dL 7-23 6979231746) GLUCOSE (test code = 71 mg/dL 70-110 2210991234) CREATININE (test code = 0.76 mg/dL 0.60-1.25 9922267772) CALCIUM (test code = 8.2 mg/dL 8.6-10.6 L 0848995414) eGFR (test code = mL/min/1.73m2 5071373892) POP (test code = POP) Association of [...] tests). Lab Interpretation Abnormal (test code = 74867-4) [facility] METABOLIC PANEL (NA, K, CL, CO2, GLUCOSE, BUN, CREATININE, CA)2021-03-24 10:53:08 Test Item Value Reference Range Interpretation Comments NA (test code = 136 mmol/L 135-145 1917381350) K (test code = 3.8 mmol/L 3.5-5.0 4205036349) CL (test code = 106 mmol/L 98-108 7113005626) CO2 TOTAL (test code = 22 mmol/L 23-31 L 3363122579) AGAP (test code = 2-16 0552688429) BUN (test code = 15 mg/dL 7-23 5894842573) GLUCOSE (test code = 71 mg/dL 70-110 7390925438) CREATININE (test code = 0.76 mg/dL 0.60-1.25 6141915261) CALCIUM (test code = 8.2 mg/dL 8.6-10.6 L 0319620336) eGFR (test code = mL/min/1.73m2 6479896664) POP (test code = POP) Association of [...] tests). Lab Interpretation Abnormal (test code = 20560-3) [facility] WITH [id number] 10:27:28 Test Item Value Reference Range Interpretation [...] RDW-SD (test code = 46.9 fL 38.5-51.6 31500-1) RDW-CV (test code = 14.5 % 12.1-15.4 788-0) PLT (test code = See_Comment H [Automated 777-3) message] The sy stem which generated this result transmitted reference range : 150 - 328 10*3/ ?L. The reference r jalen was not used to interpret this result as normal/abnormal . MPV (test code = 9.2 fL 9.8-13.0 L 44173-5) NRBC/100 WBC (test See_Comment [Automat ed code = 1252813838) message] The system which generated this result transmitted reference range : 0.0 - 10.0 /100 WBCs. The refer ence range was not u sed to interpret th is result as normal/abnormal . NRBC x10^3 (test code See_Comment [Auto mated = 6914797630) message] The s ystem which generated this result transmitted reference range : 10*3/?L. The reference range was not used to interpret this result as normal/abnormal . GRAN MAT (NEUT) % 72.2 % (test code = 770-8) IMM GRAN % (test code 0.60 % = 8770469755) LYMPH % (test code = 19.2 % 736-9) MONO % (test code = 6.3 % 5905-5) EOS % (test code = 1.3 % 713-8) BASO % (test code = 0.4 % 706-2) GRAN MAT x10^3(ANC) 7.70 10*3/uL 1.99-6.95 H (test code = 9310480440) IMM GRAN x10^3 (test 0.06 10*3/uL 0.00-0.06 code = 1703928524) LYMPH x10^3 (test code 2.04 10*3/uL 1.09-3.23 = 731-0) MONO x10^3 (test code 0.67 10*3/uL 0.36-1.02 = 742-7) EOS x10^3 (test code = 0.14 10*3/uL 0.06-0.53 711-2) BASO x10^3 (test code 0.04 10*3/uL 0.01-0.09 = 704-7) Lab Interpretation Abnormal (test code = 60272-8) [facility] WITH [id number] 10:27:28 Test Item Value Reference Range Interpretation Comments WBC (test code = See_Comment [Automated 9890-2) message] The sy stem which generated this [...] RDW-SD (test code = 46.9 fL 38.5-51.6 41167-9) RDW-CV (test code = 14.5 % 12.1-15.4 788-0) PLT (test code = See_Comment H [Automated 777-3) message] The sy stem which generated this result transmitted reference range : 150 - 328 10*3/ ?L. The reference r jalen was not used to interpret this result as normal/abnormal . MPV (test code = 9.2 fL 9.8-13.0 L 06090-7) NRBC/100 WBC (test See_Comment [Automat ed code = 0412145264) message] The system which generated this result transmitted reference range : 0.0 - 10.0 /100 WBCs. The refer ence range was not u sed to interpret th is result as normal/abnormal . NRBC x10^3 (test code See_Comment [Auto mated = 9055979073) message] The s ystem which generated this result transmitted reference range : 10*3/?L. The reference range was not used to interpret this result as normal/abnormal . GRAN MAT (NEUT) % 72.2 % (test code = 770-8) IMM GRAN % (test code 0.60 % = 1617545467) LYMPH % (test code = 19.2 % 736-9) MONO % (test code = 6.3 % 5905-5) EOS % (test code = 1.3 % 713-8) BASO % (test code = 0.4 % 706-2) GRAN MAT x10^3(ANC) 7.70 10*3/uL 1.99-6.95 H (test code = 6299426796) IMM GRAN x10^3 (test 0.06 10*3/uL 0.00-0.06 code = 8276384653) LYMPH x10^3 (test code 2.04 10*3/uL 1.09-3.23 = 731-0) MONO x10^3 (test code 0.67 10*3/uL 0.36-1.02 = 742-7) EOS x10^3 (test code = 0.14 10*3/uL 0.06-0.53 711-2) BASO x10^3 (test code 0.04 10*3/uL 0.01-0.09 = 704-7) Lab Interpretation Abnormal (test code = 21194-7) [facility] GLUCOSE (AUTOMATED)2021-03-24 02:24:46 Test Item Value Reference Range Interpretation Comments POCT GLU (test code = 1055717279) 90 mg/dL 70-110 Lab Interpretation (test code = Normal 17905-8) [facility] GLUCOSE (AUTOMATED)2021-03-24 02:24:46 Test Item Value Reference Range Interpretation Comments POCT GLU (test code = 8220838216) 90 mg/dL 70-110 Lab Interpretation (test code = Normal 69818-8) [facility] GLUCOSE (AUTOMATED)2021-03-23 23:02:24 Test Item Value Reference Range Interpretation Comments POCT GLU (test code = 0074477912) 101 mg/dL 70-110 Lab Interpretation (test code = Normal 53263-5) [facility] GLUCOSE (AUTOMATED)2021-03-23 23:02:24 Test Item Value Reference Range Interpretation Comments POCT GLU (test code = 7317699645) 101 mg/dL 70-110 Lab Interpretation (test code = Normal 61332-6) [facility] GLUCOSE (AUTOMATED)2021-03-23 17:40:20 Test Item Value Reference Range Interpretation Comments POCT GLU (test code = 6238202574) 99 mg/dL 70-110 Lab Interpretation (test code = Normal 48899-2) [facility] GLUCOSE (AUTOMATED)2021-03-23 17:40:20 Test Item Value Reference Range Interpretation Comments POCT GLU (test code = 7865917272) 99 mg/dL 70-110 Lab Interpretation (test code = Normal 44265-1) [facility] GLUCOSE (AUTOMATED)2021-03-23 14:18:19 Test Item Value Reference Range Interpretation Comments POCT GLU (test code = 4556711204) 100 mg/dL 70-110 Lab Interpretation (test code = Normal 99682-1) [facility] GLUCOSE (AUTOMATED)2021-03-23 14:18:19 Test Item Value Reference Range Interpretation Comments POCT GLU (test code = 6872218747) 100 mg/dL 70-110 Lab Interpretation (test code = Normal 58565-4) [facility] GLUCOSE (AUTOMATED)2021-03-23 02:11:27 Test Item Value Reference Range Interpretation Comments POCT GLU (test code = 8696945164) 129 mg/dL 70-110 H Lab Interpretation (test code = Abnormal 30144-2) [facility] GLUCOSE (AUTOMATED)2021-03-23 02:11:27 Test Item Value Reference Range Interpretation Comments POCT GLU (test code = 9909639418) 129 mg/dL 70-110 H Lab Interpretation (test code = Abnormal 01448-4) [facility] GLUCOSE (AUTOMATED)2021-03-22 22:25:04 Test Item Value Reference Range Interpretation Comments POCT GLU (test code = 2325805128) 135 mg/dL 70-110 H Lab Interpretation (test code = Abnormal 28376-7) [facility] GLUCOSE (AUTOMATED)2021-03-22 22:25:04 Test Item Value Reference Range Interpretation Comments POCT GLU (test code = 6384726391) 135 mg/dL 70-110 H Lab Interpretation (test code = Abnormal 03719-2) [facility] GLUCOSE (AUTOMATED)2021-03-22 17:16:14 Test Item Value Reference Range Interpretation Comments POCT GLU (test code = 8912633034) 134 mg/dL 70-110 H Lab Interpretation (test code = Abnormal 53883-6) [facility] GLUCOSE (AUTOMATED)2021-03-22 17:16:14 Test Item Value Reference Range Interpretation Comments POCT GLU (test code = 9052506038) 134 mg/dL 70-110 H Lab Interpretation (test code = Abnormal 00593-9) [facility] GLUCOSE (AUTOMATED)2021-03-22 13:33:42 Test Item Value Reference Range Interpretation Comments POCT GLU (test code = 8750162820) 129 mg/dL 70-110 H Lab Interpretation (test code = Abnormal 16262-5) [facility] GLUCOSE (AUTOMATED)2021-03-22 13:33:42 Test Item Value Reference Range Interpretation Comments POCT GLU (test code = 6969234079) 129 mg/dL 70-110 H Lab Interpretation (test code = Abnormal 78629-1) [facility] [id number] 10:35:06 Test Item Value Reference Range Interpretation Comments [employer] Aspirin See Comment ARU Test (test code = 7170221386) POP (test code = < 550 ARU [...] and clinical data available to the clinician. [facility] [id number] 10:35:06 Test Item Value Reference Range Interpretation Comments [employer] Aspirin See Comment ARU Test (test code = 1105443172) POP (test code = < 550 ARU [...] and clinical data available to the clinician. [facility] ASPIRIN [id number] 10:35:06 Test Item Value Reference Range Interpretation Comments [employer] Aspirin See Comment ARU Test (test code = 5849566081) POP (test code = < 550 ARU [...] and clinical data available to the clinician. [facility] PRUTEST (P2Y12)2021-03-22 10:28:35 Test Item Value Reference Range Interpretation Comments [employer] PRUTest See_Comment L [Automate d (P2Y12) (test code message] The = 9608924442) system which generated this result transmitted reference [...] clinician. Lab Interpretation Abnormal (test code = 01490-3) [facility] (P2[facility]12[facility]2021-03-22 10:28:35 Test Item Value Reference Range Interpretation Comments [employer] PRUTest See_Comment L [Automate d (P2Y12) (test code message] The = 3088589457) system which generated this result transmitted reference [...] clinician. Lab Interpretation Abnormal (test code = 27048-5) [facility] ([facility]12[facility]2021-03-22 10:28:35 Test Item Value Reference Range Interpretation Comments [employer] PRUTest See_Comment L [Automate d (P2Y12) (test code message] The = 7416848449) system which generated this result transmitted reference [...] clinician. Lab Interpretation Abnormal (test code = 67378-7) [facility] (NA, K, CL, CO2, GLUCOSE, BUN, CREATININE, CA)2021-03-22 10:08:19 Test Item Value Reference Range Interpretation Comments NA (test code = 132 mmol/L 135-145 L 5767578928) K (test code = 4.6 mmol/L 3.5-5.0 3968921989) CL (test code = 104 mmol/L 98-108 5253876649) CO2 TOTAL (test code = 22 mmol/L 23-31 L 1878164748) AGAP (test code = 2-16 1471274536) BUN (test code = 19 mg/dL 7-23 5373159224) GLUCOSE (test code = 107 mg/dL 70-110 1714646494) CREATININE (test code = 0.84 mg/dL 0.60-1.25 6564132104) CALCIUM (test code = 8.9 mg/dL 8.6-10.6 6094665145) eGFR (test code = mL/min/1.73m2 1838064501) POP (test code = POP) Association of [...] tests). Lab Interpretation Abnormal (test code = 43291-7) [facility] [facility] (NA, K, CL, CO2, GLUCOSE, BUN, CREATININE, CA)2021-03-22 10:08:19 Test Item Value Reference Range Interpretation Comments NA (test code = 132 mmol/L 135-145 L 4325246131) K (test code = 4.6 mmol/L 3.5-5.0 6956226613) CL (test code = 104 mmol/L 98-108 3482822905) CO2 TOTAL (test code = 22 mmol/L 23-31 L 4372471897) AGAP (test code = 2-16 4487942647) BUN (test code = 19 mg/dL 7-23 1732209073) GLUCOSE (test code = 107 mg/dL 70-110 3603917460) CREATININE (test code = 0.84 mg/dL 0.60-1.25 6217247138) CALCIUM (test code = 8.9 mg/dL 8.6-10.6 7914421298) eGFR (test code = mL/min/1.73m2 2943285761) POP (test code = POP) Association of [...] tests). Lab Interpretation Abnormal (test code = 88261-4) [facility] GLUCOSE (AUTOMATED)2021-03-22 02:18:47 Test Item Value Reference Range Interpretation Comments POCT GLU (test code = 4985529989) 221 mg/dL 70-110 H Lab Interpretation (test code = Abnormal 70051-6) [facility] GLUCOSE (AUTOMATED)2021-03-22 02:18:47 Test Item Value Reference Range Interpretation Comments POCT GLU (test code = 4976965235) 221 mg/dL 70-110 H Lab Interpretation (test code = Abnormal 44090-5) [facility] GLUCOSE (AUTOMATED)2021-03-21 22:41:30 Test Item Value Reference Range Interpretation Comments POCT GLU (test code = 5145264690) 92 mg/dL 70-110 Lab Interpretation (test code = Normal 15996-1) [facility] 22:41:30 Test Item Value Reference Range Interpretation Comments POCT GLU (test code = 3602088941) 92 mg/dL 70-110 Lab Interpretation (test code = Normal 17801-0) [facility] CULTURE [id number] 18:01:28 Test Item Value Reference Range Interpretation Comments Blood Culture-Aerobic No organisms No growth Previo us (test code = 55847-2) isolated prelim inary verified result was Culture In Progress on 03/16/2021 at 15 01 CSTPrevious preliminary verified result was No growth a t 24 hours on 03/17/2021 at 12 01 CSTPrevious preliminary verified result was No growth a t 48 hours on 03/18/2021 at 12 02 CSTPrevious preliminary verified result was No growth a t 72 hours on 03/19/2021 at 12 01 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 Blood No organisms No growth Previous Culture-Anaerobic isolated preliminar y (test code = 15364-9) verifi ed result was Culture In Progress on 03/16/2021 at 15 01 CSTPrevious preliminary verified result was No growth a t 24 hours on 03/17/2021 at 12 01 CSTPrevious preliminary verified result was No growth a t 48 hours on 03/18/2021 at 12 02 CSTPrevious preliminary verified result was No growth a t 72 hours on 03/19/2021 at 12 01 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 Lab Interpretation Normal (test code = 98694-8) [facility] CULTURE [id number] 18:01:28 Test Item Value Reference Range Interpretation Comments Blood Culture-Aerobic No organisms No growth Previo us (test code = 83346-1) isolated prelim inary verified result was Culture In Progress on 03/16/2021 at 15 01 CSTPrevious preliminary verified result was No growth a t 24 hours on 03/17/2021 at 12 01 CSTPrevious preliminary verified result was No growth a t 48 hours on 03/18/2021 at 12 02 CSTPrevious preliminary verified result was No growth a t 72 hours on 03/19/2021 at 12 01 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 Blood No organisms No growth Previous Culture-Anaerobic isolated preliminar y (test code = 31656-9) verifi ed result was Culture In Progress on 03/16/2021 at 15 01 CSTPrevious preliminary verified result was No growth a t 24 hours on 03/17/2021 at 12 01 CSTPrevious preliminary verified result was No growth a t 48 hours on 03/18/2021 at 12 02 CSTPrevious preliminary verified result was No growth a t 72 hours on 03/19/2021 at 12 01 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 Lab Interpretation Normal (test code = 06751-4) [facility] CULTURE [id number] 18:01:28 Test Item Value Reference Range Interpretation Comments Blood Culture-Aerobic No organisms No growth Previo us (test code = 22364-4) isolated prelim inary verified result was Culture In Progress on 03/16/2021 at 15 01 CSTPrevious preliminary verified result was No growth a t 24 hours on 03/17/2021 at 12 01 CSTPrevious preliminary verified result was No growth a t 48 hours on 03/18/2021 at 12 02 CSTPrevious preliminary verified result was No growth a t 72 hours on 03/19/2021 at 12 01 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 Blood No organisms No growth Previous Culture-Anaerobic isolated preliminar y (test code = 70941-7) verifi ed result was Culture In Progress on 03/16/2021 at 15 01 CSTPrevious preliminary verified result was No growth a t 24 hours on 03/17/2021 at 12 01 CSTPrevious preliminary verified result was No growth a t 48 hours on 03/18/2021 at 12 02 CSTPrevious preliminary verified result was No growth a t 72 hours on 03/19/2021 at 12 01 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 Lab Interpretation Normal (test code = 20426-7) [facility] CULTURE [id number] 18:01:28 Test Item Value Reference Range Interpretation Comments Blood Culture-Aerobic No organisms No growth Previo us (test code = 09764-2) isolated prelim inary verified result was Culture In Progress on 03/16/2021 at 15 01 CSTPrevious preliminary verified result was No growth a t 24 hours on 03/17/2021 at 12 01 CSTPrevious preliminary verified result was No growth a t 48 hours on 03/18/2021 at 12 02 CSTPrevious preliminary verified result was No growth a t 72 hours on 03/19/2021 at 12 01 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 Blood No organisms No growth Previous Culture-Anaerobic isolated preliminar y (test code = 11407-9) verifi ed result was Culture In Progress on 03/16/2021 at 15 01 CSTPrevious preliminary verified result was No growth a t 24 hours on 03/17/2021 at 12 01 CSTPrevious preliminary verified result was No growth a t 48 hours on 03/18/2021 at 12 02 CSTPrevious preliminary verified result was No growth a t 72 hours on 03/19/2021 at 12 01 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 Lab Interpretation Normal (test code = 66851-0) [facility] GLUCOSE (AUTOMATED)2021-03-21 17:27:07 Test Item Value Reference Range Interpretation Comments POCT GLU (test code = 5970167669) 280 mg/dL 70-110 H Lab Interpretation (test code = Abnormal 02876-7) [facility] GLUCOSE (AUTOMATED)2021-03-21 17:27:07 Test Item Value Reference Range Interpretation Comments POCT GLU (test code = 9279207192) 280 mg/dL 70-110 H Lab Interpretation (test code = Abnormal 37161-2) [facility] GLUCOSE (AUTOMATED)2021-03-21 13:31:44 Test Item Value Reference Range Interpretation Comments POCT GLU (test code = 9534266941) 135 mg/dL 70-110 H Lab Interpretation (test code = Abnormal 26722-8) [facility] GLUCOSE (AUTOMATED)2021-03-21 13:31:44 Test Item Value Reference Range Interpretation Comments POCT GLU (test code = 6737144954) 135 mg/dL 70-110 H Lab Interpretation (test code = Abnormal 03280-8) [facility] METABOLIC PANEL (NA, K, CL, CO2, GLUCOSE, BUN, CREATININE, CA)2021-03-21 11:24:38 Test Item Value Reference Range Interpretation Comments NA (test code = 133 mmol/L 135-145 L 5887481164) K (test code = 4.7 mmol/L 3.5-5.0 0832502296) CL (test code = 105 mmol/L 98-108 4630574961) CO2 TOTAL (test code = 22 mmol/L 23-31 L 3468838758) AGAP (test code = 2-16 7095923021) BUN (test code = 28 mg/dL 7-23 H 2208442693) GLUCOSE (test code = 137 mg/dL 70-110 H 2779070667) CREATININE (test code = 0.76 mg/dL 0.60-1.25 2380966341) CALCIUM (test code = 8.5 mg/dL 8.6-10.6 L 7842834174) eGFR (test code = mL/min/1.73m2 3576796680) POP (test code = POP) Association of [...] tests). Lab Interpretation Abnormal (test code = 28565-3) [facility] METABOLIC PANEL (NA, K, CL, CO2, GLUCOSE, BUN, CREATININE, CA)2021-03-21 11:24:38 Test Item Value Reference Range Interpretation Comments NA (test code = 133 mmol/L 135-145 L 8107372510) K (test code = 4.7 mmol/L 3.5-5.0 7163738378) CL (test code = 105 mmol/L 98-108 9335464573) CO2 TOTAL (test code = 22 mmol/L 23-31 L 7012269128) AGAP (test code = 2-16 4231588352) BUN (test code = 28 mg/dL 7-23 H 1753529132) GLUCOSE (test code = 137 mg/dL 70-110 H 1251998184) CREATININE (test code = 0.76 mg/dL 0.60-1.25 8530823083) CALCIUM (test code = 8.5 mg/dL 8.6-10.6 L 8734620156) eGFR (test code = mL/min/1.73m2 5349964991) POP (test code = POP) Association of [...] tests). Lab Interpretation Abnormal (test code = 78188-7) [facility] WITH [id number] 11:01:33 Test Item Value Reference Range Interpretation [...] RDW-SD (test code = 45.6 fL 38.5-51.6 26868-2) RDW-CV (test code = 13.6 % 12.1-15.4 788-0) PLT (test code = See_Comment H [Automated 777-3) message] The system which generated this result transmit qing reference range : 150 - 328 10*3/ ?L. The reference range was not u sed to interpret th is result as normal/abnormal . MPV (test code = 9.0 fL 9.8-13.0 L 36402-0) NRBC/100 WBC (test See_Comment [Automat ed code = 4177055801) message] The system which generated this result transmit qing reference range : 0.0 - 10.0 /100 WBCs. The reference range was not used to interpret this result as normal/abnormal . NRBC x10^3 (test code <0.01 See_Comment [Auto mated = 3688975656) message] The system which generated this result transmit qing reference range : 10*3/?L. The reference range was not used to interpret this result as normal/abnormal . GRAN MAT (NEUT) % 80.4 % (test code = 770-8) IMM GRAN % (test code 0.60 % = 3289095185) LYMPH % (test code = 11.4 % 736-9) MONO % (test code = 6.1 % 5905-5) EOS % (test code = 1.1 % 713-8) BASO % (test code = 0.4 % 706-2) GRAN MAT x10^3(ANC) 13.72 10*3/uL 1.99-6.95 H (test code = 0153472135) IMM GRAN x10^3 (test 0.11 10*3/uL 0.00-0.06 H code = 8607049083) LYMPH x10^3 (test code 1.94 10*3/uL 1.09-3.23 = 731-0) MONO x10^3 (test code 1.04 10*3/uL 0.36-1.02 H = 742-7) EOS x10^3 (test code = 0.19 10*3/uL 0.06-0.53 711-2) BASO x10^3 (test code 0.06 10*3/uL 0.01-0.09 = 704-7) Lab Interpretation Abnormal (test code = 79939-2) [facility] WITH [id number] 11:01:33 Test Item Value Reference Range Interpretation [...] RDW-SD (test code = 45.6 fL 38.5-51.6 10218-6) RDW-CV (test code = 13.6 % 12.1-15.4 788-0) PLT (test code = See_Comment H [Automated 777-3) message] The system which generated this result transmit qing reference range : 150 - 328 10*3/ ?L. The reference range was not u sed to interpret th is result as normal/abnormal . MPV (test code = 9.0 fL 9.8-13.0 L 46536-9) NRBC/100 WBC (test See_Comment [Automat ed code = 1091287649) message] The system which generated this result transmit qing reference range : 0.0 - 10.0 /100 WBCs. The reference range was not used to interpret this result as normal/abnormal . NRBC x10^3 (test code <0.01 See_Comment [Auto mated = 2603171106) message] The system which generated this result transmit qing reference range : 10*3/?L. The reference range was not used to interpret this result as normal/abnormal . GRAN MAT (NEUT) % 80.4 % (test code = 770-8) IMM GRAN % (test code 0.60 % = 8989595851) LYMPH % (test code = 11.4 % 736-9) MONO % (test code = 6.1 % 5905-5) EOS % (test code = 1.1 % 713-8) BASO % (test code = 0.4 % 706-2) GRAN MAT x10^3(ANC) 13.72 10*3/uL 1.99-6.95 H (test code = 1995485425) IMM GRAN x10^3 (test 0.11 10*3/uL 0.00-0.06 H code = 2557579212) LYMPH x10^3 (test code 1.94 10*3/uL 1.09-3.23 = 731-0) MONO x10^3 (test code 1.04 10*3/uL 0.36-1.02 H = 742-7) EOS x10^3 (test code = 0.19 10*3/uL 0.06-0.53 711-2) BASO x10^3 (test code 0.06 10*3/uL 0.01-0.09 = 704-7) Lab Interpretation Abnormal (test code = 26417-3) [facility] GLUCOSE (AUTOMATED)2021-03-21 02:05:00 Test Item Value Reference Range Interpretation Comments POCT GLU (test code = 127 mg/dL 70-110 H Notifi ed Provider [id number]) Lab Interpretation (test Abnormal code = 71452-4) [facility] GLUCOSE (AUTOMATED)2021-03-21 02:05:00 Test Item Value Reference Range Interpretation Comments POCT GLU (test code = 127 mg/dL 70-110 H Notifi ed Provider [id number]) Lab Interpretation (test Abnormal code = 15387-6) [facility] GLUCOSE (AUTOMATED)2021-03-20 22:05:19 Test Item Value Reference Range Interpretation Comments POCT GLU (test code = 8285826232) 130 mg/dL 70-110 H Lab Interpretation (test code = Abnormal 94182-9) [facility] GLUCOSE (AUTOMATED)2021-03-20 22:05:19 Test Item Value Reference Range Interpretation Comments POCT GLU (test code = 5226761502) 130 mg/dL 70-110 H Lab Interpretation (test code = Abnormal 40360-8) [facility] [id number] 19:01:22 Test Item Value Reference Range Interpretation Comments Blood Culture-Aerobic No organisms No growth Previo us (test code = 01292-8) isolated prelim inary verified result was Culture In 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/2021 at 16 01 CSTPrevious preliminary verified result was No growth a t 24 hours on 03/16/2021 at 13 01 CSTPrevious preliminary verified result was No growth a t 48 hours on 03/17/2021 at 13 01 CSTPrevious preliminary verified result was No growth a t 72 hours on 03/18/2021 at 13 01 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 Blood No organisms No growth Previous Culture-Anaerobic isolated preliminar y (test code = 88509-8) verifi ed result was Culture In 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/2021 at 16 01 CSTPrevious preliminary verified result was No growth a t 24 hours on 03/16/2021 at 13 01 CSTPrevious preliminary verified result was No growth a t 48 hours on 03/17/2021 at 13 01 CSTPrevious preliminary verified result was No growth a t 72 hours on 03/18/2021 at 13 01 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 Lab Interpretation Normal (test code = 24297-5) [facility] [id number] 19:01:22 Test Item Value Reference Range Interpretation Comments Blood Culture-Aerobic No organisms No growth Previo us (test code = 76381-3) isolated prelim inary verified result was Culture In 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/2021 at 16 01 CSTPrevious preliminary verified result was No growth a t 24 hours on 03/16/2021 at 13 01 CSTPrevious preliminary verified result was No growth a t 48 hours on 03/17/2021 at 13 01 CSTPrevious preliminary verified result was No growth a t 72 hours on 03/18/2021 at 13 01 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 Blood No organisms No growth Previous Culture-Anaerobic isolated preliminar y (test code = 56695-5) verifi ed result was Culture In 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/2021 at 16 01 CSTPrevious preliminary verified result was No growth a t 24 hours on 03/16/2021 at 13 01 CSTPrevious preliminary verified result was No growth a t 48 hours on 03/17/2021 at 13 01 CSTPrevious preliminary verified result was No growth a t 72 hours on 03/18/2021 at 13 01 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 Lab Interpretation Normal (test code = 99557-5) [facility] GLUCOSE (AUTOMATED)2021-03-20 18:18:30 Test Item Value Reference Range Interpretation Comments POCT GLU (test code = 2678388682) 127 mg/dL 70-110 H Lab Interpretation (test code = Abnormal 70909-9) [facility] GLUCOSE (AUTOMATED)2021-03-20 18:18:30 Test Item Value Reference Range Interpretation Comments POCT GLU (test code = 2207721387) 127 mg/dL 70-110 H Lab Interpretation (test code = Abnormal 17501-6) [facility] GLUCOSE (AUTOMATED)2021-03-20 16:31:11 Test Item Value Reference Range Interpretation Comments POCT GLU (test code = 0795189628) 118 mg/dL 70-110 H Lab Interpretation (test code = Abnormal 96375-2) [facility] 16:31:11 Test Item Value Reference Range Interpretation Comments POCT GLU (test code = 2156196424) 118 mg/dL 70-110 H Lab Interpretation (test code = Abnormal 52237-1) [facility] METABOLIC PANEL (NA, K, CL, CO2, GLUCOSE, BUN, CREATININE, CA)2021-03-20 13:08:50 Test Item Value Reference Range Interpretation Comments NA (test code = 129 mmol/L 135-145 L 7436988095) K (test code = 5.1 mmol/L 3.5-5.0 H 2126942079) CL (test code = 100 mmol/L 98-108 8643454872) CO2 TOTAL (test code = 21 mmol/L 23-31 L 9337191220) AGAP (test code = 2-16 7303369929) BUN (test code = 39 mg/dL 7-23 H 3157938283) GLUCOSE (test code = 120 mg/dL 70-110 H 4799975244) CREATININE (test code = 0.70 mg/dL 0.60-1.25 0540528304) CALCIUM (test code = 8.7 mg/dL 8.6-10.6 0138388487) eGFR (test code = mL/min/1.73m2 7984718334) POP (test code = POP) Association of [...] tests). Lab Interpretation Abnormal (test code = 14450-0) [facility] METABOLIC PANEL (NA, K, CL, CO2, GLUCOSE, BUN, CREATININE, CA)2021-03-20 13:08:50 Test Item Value Reference Range Interpretation Comments NA (test code = 129 mmol/L 135-145 L 8596414664) K (test code = 5.1 mmol/L 3.5-5.0 H 5944691104) CL (test code = 100 mmol/L 98-108 0429328513) CO2 TOTAL (test code = 21 mmol/L 23-31 L 5747946432) AGAP (test code = 2-16 6799272230) BUN (test code = 39 mg/dL 7-23 H 7947490031) GLUCOSE (test code = 120 mg/dL 70-110 H 4930510635) CREATININE (test code = 0.70 mg/dL 0.60-1.25 5540559783) CALCIUM (test code = 8.7 mg/dL 8.6-10.6 7560648548) eGFR (test code = mL/min/1.73m2 6149710488) POP (test code = POP) Association of [...] tests). Lab Interpretation Abnormal (test code = 72758-9) [facility] WITH [id number] 12:44:04 Test Item Value Reference Range Interpretation [...] RDW-SD (test code = 44.3 fL 38.5-51.6 29312-1) RDW-CV (test code = 13.0 % 12.1-15.4 788-0) PLT (test code = See_Comment H [Automated 777-3) message] The system which generated this result transmit qing reference range : 150 - 328 10*3/ ?L. The reference range was not u sed to interpret th is result as normal/abnormal . MPV (test code = 9.5 fL 9.8-13.0 L 38858-8) NRBC/100 WBC (test See_Comment [Automat ed code = 5619563946) message] The system which generated this result transmit qing reference range : 0.0 - 10.0 /100 WBCs. The reference range was not used to interpret this result as normal/abnormal . NRBC x10^3 (test code <0.01 See_Comment [Auto mated = 2713344174) message] The system which generated this result transmit qing reference range : 10*3/?L. The reference range was not used to interpret this result as normal/abnormal . GRAN MAT (NEUT) % 79.5 % (test code = 770-8) IMM GRAN % (test code 0.70 % = 3820223505) LYMPH % (test code = 12.6 % 736-9) MONO % (test code = 5.2 % 5905-5) EOS % (test code = 1.7 % 713-8) BASO % (test code = 0.3 % 706-2) GRAN MAT x10^3(ANC) 11.98 10*3/uL 1.99-6.95 H (test code = 3568841053) IMM GRAN x10^3 (test 0.10 10*3/uL 0.00-0.06 H code = 0735265342) LYMPH x10^3 (test code 1.90 10*3/uL 1.09-3.23 = 731-0) MONO x10^3 (test code 0.79 10*3/uL 0.36-1.02 = 742-7) EOS x10^3 (test code = 0.26 10*3/uL 0.06-0.53 711-2) BASO x10^3 (test code 0.05 10*3/uL 0.01-0.09 = 704-7) Lab Interpretation Abnormal (test code = 94433-6) [facility] WITH [id number] 12:44:04 Test Item Value Reference Range Interpretation [...] RDW-SD (test code = 44.3 fL 38.5-51.6 70380-2) RDW-CV (test code = 13.0 % 12.1-15.4 788-0) PLT (test code = See_Comment H [Automated 777-3) message] The system which generated this result transmit qing reference range : 150 - 328 10*3/ ?L. The reference range was not u sed to interpret th is result as normal/abnormal . MPV (test code = 9.5 fL 9.8-13.0 L 08724-2) NRBC/100 WBC (test See_Comment [Automat ed code = 5876876682) message] The system which generated this result transmit qing reference range : 0.0 - 10.0 /100 WBCs. The reference range was not used to interpret this result as normal/abnormal . NRBC x10^3 (test code <0.01 See_Comment [Auto mated = 5804191466) message] The system which generated this result transmit qing reference range : 10*3/?L. The reference range was not used to interpret this result as normal/abnormal . GRAN MAT (NEUT) % 79.5 % (test code = 770-8) IMM GRAN % (test code 0.70 % = 0337703190) LYMPH % (test code = 12.6 % 736-9) MONO % (test code = 5.2 % 5905-5) EOS % (test code = 1.7 % 713-8) BASO % (test code = 0.3 % 706-2) GRAN MAT x10^3(ANC) 11.98 10*3/uL 1.99-6.95 H (test code = 8506281472) IMM GRAN x10^3 (test 0.10 10*3/uL 0.00-0.06 H code = 5458807020) LYMPH x10^3 (test code 1.90 10*3/uL 1.09-3.23 = 731-0) MONO x10^3 (test code 0.79 10*3/uL 0.36-1.02 = 742-7) EOS x10^3 (test code = 0.26 10*3/uL 0.06-0.53 711-2) BASO x10^3 (test code 0.05 10*3/uL 0.01-0.09 = 704-7) Lab Interpretation Abnormal (test code = 94228-1) [facility] GLUCOSE (AUTOMATED)2021-03-19 23:48:28 Test Item Value Reference Range Interpretation Comments POCT GLU (test code = 4360574704) 131 mg/dL 70-110 H Lab Interpretation (test code = Abnormal 70490-5) [facility] GLUCOSE (AUTOMATED)2021-03-19 23:48:28 Test Item Value Reference Range Interpretation Comments POCT GLU (test code = 1217671092) 131 mg/dL 70-110 H Lab Interpretation (test code = Abnormal 90329-6) [facility] GLUCOSE (AUTOMATED)2021-03-19 17:56:46 Test Item Value Reference Range Interpretation Comments POCT GLU (test code = 4660059672) 128 mg/dL 70-110 H Lab Interpretation (test code = Abnormal 26669-3) [facility] GLUCOSE (AUTOMATED)2021-03-19 17:56:46 Test Item Value Reference Range Interpretation Comments POCT GLU (test code = 6599548012) 128 mg/dL 70-110 H Lab Interpretation (test code = Abnormal 90107-6) [facility] GLUCOSE (AUTOMATED)2021-03-19 14:18:18 Test Item Value Reference Range Interpretation Comments POCT GLU (test code = 5278749482) 100 mg/dL 70-110 Lab Interpretation (test code = Normal 66136-7) [facility] GLUCOSE (AUTOMATED)2021-03-19 14:18:18 Test Item Value Reference Range Interpretation Comments POCT GLU (test code = 4074803889) 100 mg/dL 70-110 Lab Interpretation (test code = Normal 93532-3) [facility] METABOLIC PANEL (NA, K, CL, CO2, GLUCOSE, BUN, CREATININE, CA)2021-03-19 11:17:21 Test Item Value Reference Range Interpretation Comments NA (test code = 130 mmol/L 135-145 L 1724575249) K (test code = 5.1 mmol/L 3.5-5.0 H 3666516812) CL (test code = 101 mmol/L 98-108 7830577136) CO2 TOTAL (test code = 22 mmol/L 23-31 L 3936206269) AGAP (test code = 2-16 8436310876) BUN (test code = 19 mg/dL 7-23 3684436459) GLUCOSE (test code = 95 mg/dL 70-110 7753343794) CREATININE (test code = 0.75 mg/dL 0.60-1.25 1804194775) CALCIUM (test code = 9.0 mg/dL 8.6-10.6 1077535598) eGFR (test code = mL/min/1.73m2 3052339205) POP (test code = POP) Association of [...] tests). Lab Interpretation Abnormal (test code = 82838-1) [facility] METABOLIC PANEL (NA, K, CL, CO2, GLUCOSE, BUN, CREATININE, CA)2021-03-19 11:17:21 Test Item Value Reference Range Interpretation Comments NA (test code = 130 mmol/L 135-145 L 1460491014) K (test code = 5.1 mmol/L 3.5-5.0 H 9070723222) CL (test code = 101 mmol/L 98-108 3933103293) CO2 TOTAL (test code = 22 mmol/L 23-31 L 0551847412) AGAP (test code = 2-16 7964674417) BUN (test code = 19 mg/dL 7-23 8511228013) GLUCOSE (test code = 95 mg/dL 70-110 5559923055) CREATININE (test code = 0.75 mg/dL 0.60-1.25 3325581228) CALCIUM (test code = 9.0 mg/dL 8.6-10.6 4810894069) eGFR (test code = mL/min/1.73m2 4735939148) POP (test code = POP) Association of [...] tests). Lab Interpretation Abnormal (test code = 39207-6) [facility] GLUCOSE (AUTOMATED)2021-03-18 23:30:38 Test Item Value Reference Range Interpretation Comments POCT GLU (test code = 4663796596) 126 mg/dL 70-110 H Lab Interpretation (test code = Abnormal 39050-2) [facility] GLUCOSE (AUTOMATED)2021-03-18 23:30:38 Test Item Value Reference Range Interpretation Comments POCT GLU (test code = 3492898140) 126 mg/dL 70-110 H Lab Interpretation (test code = Abnormal 69946-0) [facility] GLUCOSE (AUTOMATED)2021-03-18 18:01:48 Test Item Value Reference Range Interpretation Comments POCT GLU (test code = 4681890909) 122 mg/dL 70-110 H Lab Interpretation (test code = Abnormal 12873-9) [facility] GLUCOSE (AUTOMATED)2021-03-18 18:01:48 Test Item Value Reference Range Interpretation Comments POCT GLU (test code = 1060558901) 122 mg/dL 70-110 H Lab Interpretation (test code = Abnormal 28178-5) [facility] CULTURE [id number] 14:30:49 Test Item Value Reference Range Interpretation Comments Blood Culture-Aerobic Culture positive. No growth AA P revious (test code = 51002-1) See Blood prelim inary Culture Workup verified resu lt for additional was Culture I n information. 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 No growth AA P revious (test code = 49563-0) See Blood prelim inary Culture Workup verified resu lt for additional was Culture I n information. 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 Abnormal (test code = 50892-0) [facility] GLUCOSE (AUTOMATED)2021-03-18 14:13:04 Test Item Value Reference Range Interpretation Comments POCT GLU (test code = 5096095262) 85 mg/dL 70-110 Lab Interpretation (test code = Normal 42507-8) [facility] GLUCOSE (AUTOMATED)2021-03-18 14:13:04 Test Item Value Reference Range Interpretation Comments POCT GLU (test code = 3895768791) 85 mg/dL 70-110 Lab Interpretation (test code = Normal 80608-1) [facility]2021-12-08 12:24:26 Test Item Value Reference Range Interpretation Comments MAGNESIUM (test code = 8584592174) 1.6 mg/dL 1.7-2.4 L Lab Interpretation (test code = Abnormal 01379-6) [facility]2021-12-08 12:24:26 Test Item Value Reference Range Interpretation Comments MAGNESIUM (test code = 3484116622) 1.6 mg/dL 1.7-2.4 L Lab Interpretation (test code = Abnormal 66094-3) [facility] METABOLIC PANEL (NA, K, CL, CO2, GLUCOSE, BUN, CREATININE, CA)2021-03-18 12:24:06 Test Item Value Reference Range Interpretation Comments NA (test code = 131 mmol/L 135-145 L 8630962639) K (test code = 4.5 mmol/L 3.5-5.0 0666812469) CL (test code = 100 mmol/L 98-108 5191158922) CO2 TOTAL (test code = 25 mmol/L 23-31 4369346227) AGAP (test code = 2-16 3134835662) BUN (test code = 19 mg/dL 7-23 9928954743) GLUCOSE (test code = 87 mg/dL 70-110 2674621954) CREATININE (test code = 0.78 mg/dL 0.60-1.25 4513123931) CALCIUM (test code = 8.8 mg/dL 8.6-10.6 3056251328) eGFR (test code = mL/min/1.73m2 5327973559) POP (test code = POP) Association of [...] tests). Lab Interpretation Abnormal (test code = 55547-8) [facility] METABOLIC PANEL (NA, K, CL, CO2, GLUCOSE, BUN, CREATININE, CA)2021-03-18 12:24:06 Test Item Value Reference Range Interpretation Comments NA (test code = 131 mmol/L 135-145 L 8012206115) K (test code = 4.5 mmol/L 3.5-5.0 8443773343) CL (test code = 100 mmol/L 98-108 5683138052) CO2 TOTAL (test code = 25 mmol/L 23-31 5702394579) AGAP (test code = 2-16 6152311451) BUN (test code = 19 mg/dL 7-23 6891025537) GLUCOSE (test code = 87 mg/dL 70-110 4320975010) CREATININE (test code = 0.78 mg/dL 0.60-1.25 6806291858) CALCIUM (test code = 8.8 mg/dL 8.6-10.6 0327400371) eGFR (test code = mL/min/1.73m2 0392193400) POP (test code = POP) Association of [...] tests). Lab Interpretation Abnormal (test code = 67649-0) [facility] WITH [id number] 11:18:58 Test Item Value Reference Range Interpretation [...] RDW-SD (test code = 45.3 fL 38.5-51.6 80040-6) RDW-CV (test code = 13.1 % 12.1-15.4 788-0) PLT (test code = See_Comment H [Automated 777-3) message] The sy stem which generated this result transmitted reference range : 150 - 328 10*3/ ?L. The reference r jalen was not used to interpret this result as normal/abnormal . MPV (test code = 9.3 fL 9.8-13.0 L 36057-8) NRBC/100 WBC (test See_Comment [Automat ed code = 9918496746) message] The system which generated this result transmitted reference range : 0.0 - 10.0 /100 WBCs. The refer ence range was not u sed to interpret th is result as normal/abnormal . NRBC x10^3 (test code <0.01 See_Comment [Auto mated = 2557750175) message] The s ystem which generated this result transmitted reference range : 10*3/?L. The reference range was not used to interpret this result as normal/abnormal . GRAN MAT (NEUT) % 69.4 % (test code = 770-8) IMM GRAN % (test code 0.50 % = 2772733446) LYMPH % (test code = 18.2 % 736-9) MONO % (test code = 7.4 % 5905-5) EOS % (test code = 4.0 % 713-8) BASO % (test code = 0.5 % 706-2) GRAN MAT x10^3(ANC) 7.58 10*3/uL 1.99-6.95 H (test code = 1846084803) IMM GRAN x10^3 (test 0.06 10*3/uL 0.00-0.06 code = 4137105895) LYMPH x10^3 (test code 1.99 10*3/uL 1.09-3.23 = 731-0) MONO x10^3 (test code 0.81 10*3/uL 0.36-1.02 = 742-7) EOS x10^3 (test code = 0.44 10*3/uL 0.06-0.53 711-2) BASO x10^3 (test code 0.06 10*3/uL 0.01-0.09 = 704-7) Lab Interpretation Abnormal (test code = 48739-9) [facility] WITH [id number] 11:18:58 Test Item Value Reference Range Interpretation Comments WBC (test code = See_Comment H [Automated 1190-2) message] The sy stem which generated this result transmitted reference range : 4.20 - 10.70 10*3/?L. The reference range was not used to interpret this result as normal/abnormal . RBC (test code = See_Comment L [Automated 629-8) message] The sy stem which generated this [...] RDW-SD (test code = 45.3 fL 38.5-51.6 30602-4) RDW-CV (test code = 13.1 % 12.1-15.4 788-0) PLT (test code = See_Comment H [Automated 777-3) message] The sy stem which generated this result transmitted reference range : 150 - 328 10*3/ ?L. The reference r jalen was not used to interpret this result as normal/abnormal . MPV (test code = 9.3 fL 9.8-13.0 L 18574-0) NRBC/100 WBC (test See_Comment [Automat ed code = 4846910391) message] The system which generated this result transmitted reference range : 0.0 - 10.0 /100 WBCs. The refer ence range was not u sed to interpret th is result as normal/abnormal . NRBC x10^3 (test code <0.01 See_Comment [Auto mated = 6249497017) message] The s ystem which generated this result transmitted reference range : 10*3/?L. The reference range was not used to interpret this result as normal/abnormal . GRAN MAT (NEUT) % 69.4 % (test code = 770-8) IMM GRAN % (test code 0.50 % = 9399562364) LYMPH % (test code = 18.2 % 736-9) MONO % (test code = 7.4 % 5905-5) EOS % (test code = 4.0 % 713-8) BASO % (test code = 0.5 % 706-2) GRAN MAT x10^3(ANC) 7.58 10*3/uL 1.99-6.95 H (test code = 6335802576) IMM GRAN x10^3 (test 0.06 10*3/uL 0.00-0.06 code = 5252207252) LYMPH x10^3 (test code 1.99 10*3/uL 1.09-3.23 = 731-0) MONO x10^3 (test code 0.81 10*3/uL 0.36-1.02 = 742-7) EOS x10^3 (test code = 0.44 10*3/uL 0.06-0.53 711-2) BASO x10^3 (test code 0.06 10*3/uL 0.01-0.09 = 704-7) Lab Interpretation Abnormal (test code = 00428-8) [facility] GLUCOSE (AUTOMATED)2021-03-17 22:53:20 Test Item Value Reference Range Interpretation Comments POCT GLU (test code = 7196377907) 121 mg/dL 70-110 H Lab Interpretation (test code = Abnormal 22223-1) [facility] GLUCOSE (AUTOMATED)2021-03-17 22:53:20 Test Item Value Reference Range Interpretation Comments POCT GLU (test code = 1624225002) 121 mg/dL 70-110 H Lab Interpretation (test code = Abnormal 76443-4) [facility] GLUCOSE (AUTOMATED)2021-03-17 18:13:55 Test Item Value Reference Range Interpretation Comments POCT GLU (test code = 2783321623) 115 mg/dL 70-110 H Lab Interpretation (test code = Abnormal 10332-3) [facility] GLUCOSE (AUTOMATED)2021-03-17 18:13:55 Test Item Value Reference Range Interpretation Comments POCT GLU (test code = 2015827094) 115 mg/dL 70-110 H Lab Interpretation (test code = Abnormal 84942-3) [facility] [id number] 16:28:08 MILD LEUKOCYTOSIS WITH ABSOLUTE NEUTROPHILIA. NO BLASTS IDENTIFIED. ERYTHROCYTES ARE UNREMARKABLE.THROMBOCYTOSIS.[facility] DIFF CONSULT [id number] 16:28:08MILD LEUKOCYTOSIS WITH ABSOLUTE NEUTROPHILIA. NO BLASTS IDENTIFIED. ERYTHROCYTES ARE UNREMARKABLE. THROMBOCYTOSIS.[facility] GLUCOSE (AUTOMATED) 2021-03-17 13:49:48 Test Item Value Reference Range Interpretation Comments POCT GLU (test code = 7868529070) 96 mg/dL 70-110 Lab Interpretation (test code = Normal 39326-0) [facility] 13:49:48 Test Item Value Reference Range Interpretation Comments POCT GLU (test code = 2969059736) 96 mg/dL 70-110 Lab Interpretation (test code = Normal 43695-7) [facility] METABOLIC PANEL (NA, K, CL, CO2, GLUCOSE, BUN, CREATININE, CA)2021-03-17 13:21:15 Test Item Value Reference Range Interpretation Comments NA (test code = 131 mmol/L 135-145 L 0295969338) K (test code = 4.3 mmol/L 3.5-5.0 0662057153) CL (test code = 100 mmol/L 98-108 9307025739) CO2 TOTAL (test code = 25 mmol/L 23-31 1583248609) AGAP (test code = 2-16 5099203741) BUN (test code = 16 mg/dL 7-23 3983246259) GLUCOSE (test code = 104 mg/dL 70-110 9204216819) CREATININE (test code = 0.73 mg/dL 0.60-1.25 8973718533) CALCIUM (test code = 8.7 mg/dL 8.6-10.6 9492234836) eGFR (test code = mL/min/1.73m2 2348731538) POP (test code = POP) Association of [...] tests). Lab Interpretation Abnormal (test code = 35593-1) [facility] METABOLIC PANEL (NA, K, CL, CO2, GLUCOSE, BUN, CREATININE, CA)2021-03-17 13:21:15 Test Item Value Reference Range Interpretation Comments NA (test code = 131 mmol/L 135-145 L 6291077483) K (test code = 4.3 mmol/L 3.5-5.0 8281001167) CL (test code = 100 mmol/L 98-108 0412321575) CO2 TOTAL (test code = 25 mmol/L 23-31 7999482437) AGAP (test code = 2-16 7649431822) BUN (test code = 16 mg/dL 7-23 9636837944) GLUCOSE (test code = 104 mg/dL 70-110 0722474071) CREATININE (test code = 0.73 mg/dL 0.60-1.25 7188718428) CALCIUM (test code = 8.7 mg/dL 8.6-10.6 6332887868) eGFR (test code = mL/min/1.73m2 9117983175) POP (test code = POP) Association of [...] tests). Lab Interpretation Abnormal (test code = 14403-6) [facility] (Total Cholesterol, Triglycerides, HDL) - [id number] 12:55:53 Test Item Value Reference Range Interpretation Comments CHOL (test code = 82 mg/dL 120-200 L 1642327036) HDL (test code = 28 mg/dL >40 L 9839202245) HDLC RATIO (test code = See_Comment [Au tomated message] 7271081361) The system [employer] generated this result transmitted ref erence range: <=5.0. T he reference range was not used to int erpret this result as normal/abnormal . TRIG (test code = 88 mg/dL 30-170 5015074399) LDL CHOL (test code = 36 mg/dL See_Comment [Auto mated message] 83707-6) The system [employer] generated this result transmitted ref erence range: <=160. T he reference range was not used to int erpret this result as normal/abnormal . VLDL (test code = 18 mg/dL 5-60 1462205001) Lab Interpretation (test Abnormal code = 19991-1) [facility] (Total Cholesterol, Triglycerides, HDL) - [id number] 12:55:53 Test Item Value Reference Range Interpretation Comments CHOL (test code = 82 mg/dL 120-200 L 5088049443) HDL (test code = 28 mg/dL >40 L 3156350928) HDLC RATIO (test code = See_Comment [Au tomated message] 5098001419) The system [employer] generated this result transmitted ref erence range: <=5.0. T he reference range was not used to int erpret this result as normal/abnormal . TRIG (test code = 88 mg/dL 30-170 7395095156) LDL CHOL (test code = 36 mg/dL See_Comment [Auto mated message] 15169-4) The system [employer] generated this result transmitted ref erence range: <=160. T he reference range was not used to int erpret this result as normal/abnormal . VLDL (test code = 18 mg/dL 5-60 4432715301) Lab Interpretation (test Abnormal code = 29910-0) [facility] (Total Cholesterol, Triglycerides, HDL) - [id number] 12:55:53 Test Item Value Reference Range Interpretation Comments CHOL (test code = 82 mg/dL 120-200 L 4450790894) HDL (test code = 28 mg/dL >40 L 2313122766) HDLC RATIO (test code = See_Comment [Au tomated message] 5696552224) The system [employer] generated this result transmitted ref erence range: <=5.0. T he reference range was not used to int erpret this result as normal/abnormal . TRIG (test code = 88 mg/dL 30-170 5154085854) LDL CHOL (test code = 36 mg/dL See_Comment [Auto mated message] 49799-2) The system [employer] generated this result transmitted ref erence range: <=160. T he reference range was not used to int erpret this result as normal/abnormal . VLDL (test code = 18 mg/dL 5-60 1335574861) Lab Interpretation (test Abnormal code = 60518-1) [facility] Test Item Value Reference Range Interpretation Comments MAGNESIUM (test code = 5712340535) 1.6 mg/dL 1.7-2.4 L Lab Interpretation (test code = Abnormal 80419-7) [facility]32 Test Item Value Reference Range Interpretation Comments MAGNESIUM (test code = 0281588740) 1.6 mg/dL 1.7-2.4 L Lab Interpretation (test code = Abnormal 92113-4) [facility] 12:55:12 Test Item Value Reference Range Interpretation Comments PHOSPHORUS (test code = 1011852625) 2.5 mg/dL 2.5-5.0 Lab Interpretation (test code = Normal 90915-1) [facility] 12:55:12 Test Item Value Reference Range Interpretation Comments PHOSPHORUS (test code = 8310150466) 2.5 mg/dL 2.5-5.0 Lab Interpretation (test code = Normal 47088-4) [facility] 12:55:12 Test Item Value Reference Range Interpretation Comments PHOSPHORUS (test code = 6231396499) 2.5 mg/dL 2.5-5.0 Lab Interpretation (test code = Normal 97598-5) [facility] WITH [id number] 12:17:31 Test Item Value Reference Range Interpretation [...] RDW-SD (test code = 45.4 fL 38.5-51.6 44654-1) RDW-CV (test code = 13.2 % 12.1-15.4 788-0) PLT (test code = See_Comment H [Automated 777-3) message] The sy stem which generated this result transmitted reference range : 150 - 328 10*3/ ?L. The reference r jalen was not used to interpret this result as normal/abnormal . MPV (test code = 9.3 fL 9.8-13.0 L 51709-2) NRBC/100 WBC (test See_Comment [Automat ed code = 4041940327) message] The system which generated this result transmitted reference range : 0.0 - 10.0 /100 WBCs. The refer ence range was not u sed to interpret th is result as normal/abnormal . NRBC x10^3 (test code <0.01 See_Comment [Auto mated = 8348715417) message] The s ystem which generated this result transmitted reference range : 10*3/?L. The reference range was not used to interpret this result as normal/abnormal . GRAN MAT (NEUT) % 80.8 % (test code = 770-8) IMM GRAN % (test code 0.40 % = 3092830414) LYMPH % (test code = 11.0 % 736-9) MONO % (test code = 5.4 % 5905-5) EOS % (test code = 1.9 % 713-8) BASO % (test code = 0.5 % 706-2) GRAN MAT x10^3(ANC) 9.07 10*3/uL 1.99-6.95 H (test code = 4812962339) IMM GRAN x10^3 (test 0.05 10*3/uL 0.00-0.06 code = 0449119700) LYMPH x10^3 (test code 1.24 10*3/uL 1.09-3.23 = 731-0) MONO x10^3 (test code 0.61 10*3/uL 0.36-1.02 = 742-7) EOS x10^3 (test code = 0.21 10*3/uL 0.06-0.53 711-2) BASO x10^3 (test code 0.06 10*3/uL 0.01-0.09 = 704-7) Lab Interpretation Abnormal (test code = 87152-2) [facility] WITH [id number] 12:17:31 Test Item Value Reference Range Interpretation [...] RDW-SD (test code = 45.4 fL 38.5-51.6 08871-3) RDW-CV (test code = 13.2 % 12.1-15.4 788-0) PLT (test code = See_Comment H [Automated 777-3) message] The sy stem which generated this result transmitted reference range : 150 - 328 10*3/ ?L. The reference r jalen was not used to interpret this result as normal/abnormal . MPV (test code = 9.3 fL 9.8-13.0 L 68683-8) NRBC/100 WBC (test See_Comment [Automat ed code = 9417211979) message] The system which generated this result transmitted reference range : 0.0 - 10.0 /100 WBCs. The refer ence range was not u sed to interpret th is result as normal/abnormal . NRBC x10^3 (test code <0.01 See_Comment [Auto mated = 6916900932) message] The s ystem which generated this result transmitted reference range : 10*3/?L. The reference range was not used to interpret this result as normal/abnormal . GRAN MAT (NEUT) % 80.8 % (test code = 770-8) IMM GRAN % (test code 0.40 % = 0415320103) LYMPH % (test code = 11.0 % 736-9) MONO % (test code = 5.4 % 5905-5) EOS % (test code = 1.9 % 713-8) BASO % (test code = 0.5 % 706-2) GRAN MAT x10^3(ANC) 9.07 10*3/uL 1.99-6.95 H (test code = 7028807878) IMM GRAN x10^3 (test 0.05 10*3/uL 0.00-0.06 code = 8740080415) LYMPH x10^3 (test code 1.24 10*3/uL 1.09-3.23 = 731-0) MONO x10^3 (test code 0.61 10*3/uL 0.36-1.02 = 742-7) EOS x10^3 (test code = 0.21 10*3/uL 0.06-0.53 711-2) BASO x10^3 (test code 0.06 10*3/uL 0.01-0.09 = 704-7) Lab Interpretation Abnormal (test code = 65174-9) [facility] 01:47:27 Test Item Value Reference Range Interpretation Comments HGB A1C (test code = 5.9 % 4.0-5.7 H 4548-4) POP (test code = POP) Reference RangesNormal: <5.7%Prediabetes: 5.7 - 6.4%Diabetes: > 6.5% Lab Interpretation (test Abnormal code = 57482-6) [facility]2021-03-17 01:47:27 Test Item Value Reference Range Interpretation Comments HGB A1C (test code = 5.9 % 4.0-5.7 H 4548-4) POP (test code = POP) Reference RangesNormal: <5.7%Prediabetes: 5.7 - 6.4%Diabetes: > 6.5% Lab Interpretation (test Abnormal code = 58277-6) [facility]2021-03-17 01:47:27 Test Item Value Reference Range Interpretation Comments HGB A1C (test code = 5.9 % 4.0-5.7 H 4548-4) POP (test code = OPP) Reference RangesNormal: <5.7%Prediabetes: 5.7 - 6.4%Diabetes: > 6.5% Lab Interpretation (test Abnormal code = 93605-0) [facility] GLUCOSE (AUTOMATED)2021-03-16 23:09:50 Test Item Value Reference Range Interpretation Comments POCT GLU (test code = 3006813368) 134 mg/dL 70-110 H Lab Interpretation (test code = Abnormal 26116-2) [facility] GLUCOSE (AUTOMATED)2021-03-16 23:09:50 Test Item Value Reference Range Interpretation Comments POCT GLU (test code = 6998796063) 134 mg/dL 70-110 H Lab Interpretation (test code = Abnormal 99960-7) [facility] POSITIVE BLOOD PATHOGENS DNA [id number] 20:26:17 Test Item Value Reference Range Interpretation Comments Gram Positive Blood No organisms included in Pathogens DNA the Blood DNA Probe test Probe-Aerobic (test panel were detected. code = 40778-7) Further identification workup to be performed by culture testing methods. POP (test code = See blood culture result POP) for additional information. Testing included eleven identification and three resistancemarker targets. [facility] POSITIVE BLOOD PATHOGENS DNA [id number] 20:26:17 Test Item Value Reference Range Interpretation Comments Gram Positive Blood No organisms included in Pathogens DNA the Blood DNA Probe test Probe-Aerobic (test panel were detected. code = 09926-5) Further identification workup to be performed by culture testing methods. POP (test code = See blood culture result POP) for additional information. Testing included eleven identification and three resistancemarker targets. [facility] POSITIVE BLOOD PATHOGENS DNA [id number] 20:26:17 Test Item Value Reference Range Interpretation Comments Gram Positive Blood No organisms included in Pathogens DNA the Blood DNA Probe test Probe-Aerobic (test panel were detected. code = 03273-2) Further identification workup to be performed by culture testing methods. POP (test code = See blood culture result POP) for additional information. Testing included eleven identification and three resistancemarker targets. [facility] GLUCOSE (AUTOMATED)2021-03-16 18:07:59 Test Item Value Reference Range Interpretation Comments POCT GLU (test code = 3620639054) 125 mg/dL 70-110 H Lab Interpretation (test code = Abnormal 99817-5) [facility] GLUCOSE (AUTOMATED)2021-03-16 18:07:59 Test Item Value Reference Range Interpretation Comments POCT GLU (test code = 6872772770) 125 mg/dL 70-110 H Lab Interpretation (test code = Abnormal 94413-7) [facility] METABOLIC PANEL (NA, K, CL, CO2, GLUCOSE, BUN, CREATININE, CA)2021-03-16 17:53:54 Test Item Value Reference Range Interpretation Comments NA (test code = 132 mmol/L 135-145 L 8654431779) K (test code = 3.0 mmol/L 3.5-5.0 L 8960256531) CL (test code = 95 mmol/L 98-108 L 4656632396) CO2 TOTAL (test code = 29 mmol/L 23-31 3022408628) AGAP (test code = 2-16 9445594936) BUN (test code = 14 mg/dL 7-23 5257735615) GLUCOSE (test code = 136 mg/dL 70-110 H 7953569959) CREATININE (test code = 0.79 mg/dL 0.60-1.25 1519851115) CALCIUM (test code = 9.6 mg/dL 8.6-10.6 8156679443) eGFR (test code = mL/min/1.73m2 5877048486) POP (test code = POP) Association of [...] tests). Lab Interpretation Abnormal (test code = 89507-2) [facility] METABOLIC PANEL (NA, K, CL, CO2, GLUCOSE, BUN, CREATININE, CA)2021-03-16 17:53:54 Test Item Value Reference Range Interpretation Comments NA (test code = 132 mmol/L 135-145 L 4436029231) K (test code = 3.0 mmol/L 3.5-5.0 L 4701214314) CL (test code = 95 mmol/L 98-108 L 5125646678) CO2 TOTAL (test code = 29 mmol/L 23-31 3545409313) AGAP (test code = 2-16 3082613903) BUN (test code = 14 mg/dL 7-23 1592328001) GLUCOSE (test code = 136 mg/dL 70-110 H 1700957596) CREATININE (test code = 0.79 mg/dL 0.60-1.25 0569658573) CALCIUM (test code = 9.6 mg/dL 8.6-10.6 6481831265) eGFR (test code = mL/min/1.73m2 8447873016) POP (test code = POP) Association of [...] tests). Lab Interpretation Abnormal (test code = 34408-7) [facility] 16:33:30 Test Item Value Reference Range Interpretation Comments Procalcitonin (test 0.05 ng/mL <0.07 code = 8445193508) POP (test code = POP) INTERPRETATION OF [...] lung abscess/empyema. For further information please refer to:[email or web address] Lab Interpretation Normal (test code = 94334-1) [facility] 16:33:30 Test Item Value Reference Range Interpretation Comments Procalcitonin (test 0.05 ng/mL <0.07 code = 7573757676) POP (test code = POP) INTERPRETATION OF [...] lung abscess/empyema. For further information please refer to:[email or web address] Lab Interpretation Normal (test code = 45228-0) [facility] 16:33:30 Test Item Value Reference Range Interpretation Comments Procalcitonin (test 0.05 ng/mL <0.07 code = 3575204669) POP (test code = POP) INTERPRETATION OF [...] lung abscess/empyema. For further information please refer to:[email or web address] Lab Interpretation Normal (test code = 10114-8) [facility]2021-12-06 14:05:27 Test Item Value Reference Range Interpretation Comments MAGNESIUM (test code = 8766221957) 1.7 mg/dL 1.7-2.4 Lab Interpretation (test code = Normal 34159-4) [facility]2021-12-06 14:05:27 Test Item Value Reference Range Interpretation Comments MAGNESIUM (test code = 6692809421) 1.7 mg/dL 1.7-2.4 Lab Interpretation (test code = Normal 71339-5) [facility] GLUCOSE (AUTOMATED)2021-03-16 13:56:02 Test Item Value Reference Range Interpretation Comments POCT GLU (test code = 4725276738) 126 mg/dL 70-110 H Lab Interpretation (test code = Abnormal 17835-2) [facility] GLUCOSE (AUTOMATED)2021-03-16 13:56:02 Test Item Value Reference Range Interpretation Comments POCT GLU (test code = 1449673331) 126 mg/dL 70-110 H Lab Interpretation (test code = Abnormal 53196-2) [facility] with [id number] 12:25:24 Test Item Value Reference Range Interpretation [...] RDW-SD (test code = 43.7 fL 38.5-51.6 39048-8) RDW-CV (test code = 13.2 % 12.1-15.4 788-0) PLT (test code = See_Comment H [Automated 777-3) message] The system which generated this result transmit qing reference range : 150 - 328 10*3/ ?L. The reference range was not u sed to interpret th is result as normal/abnormal . MPV (test code = 9.2 fL 9.8-13.0 L 57388-3) NRBC/100 WBC (test See_Comment [Automat ed code = 4114416938) message] The system which generated this result transmit qing reference range : 0.0 - 10.0 /100 WBCs. The reference range was not used to interpret this result as normal/abnormal . NRBC x10^3 (test code <0.01 See_Comment [Auto mated = 7176430283) message] The system which generated this result transmit qing reference range : 10*3/?L. The reference range was not used to interpret this result as normal/abnormal . GRAN MAT (NEUT) % 85.4 % (test code = 770-8) IMM GRAN % (test code 0.70 % = 1235728605) LYMPH % (test code = 8.2 % 736-9) MONO % (test code = 4.5 % 5905-5) EOS % (test code = 0.8 % 713-8) BASO % (test code = 0.4 % 706-2) GRAN MAT x10^3(ANC) 13.38 10*3/uL 1.99-6.95 H (test code = 7850801333) IMM GRAN x10^3 (test 0.11 10*3/uL 0.00-0.06 H code = 2589230042) LYMPH x10^3 (test code 1.29 10*3/uL 1.09-3.23 = 731-0) MONO x10^3 (test code 0.70 10*3/uL 0.36-1.02 = 742-7) EOS x10^3 (test code = 0.13 10*3/uL 0.06-0.53 711-2) BASO x10^3 (test code 0.06 10*3/uL 0.01-0.09 = 704-7) Lab Interpretation Abnormal (test code = 40660-2) [facility] with Jakcbyvjugpw6447-34-14 12:25:24 Test Item Value Reference Range Interpretation [...] RDW-SD (test code = 43.7 fL 38.5-51.6 22046-2) RDW-CV (test code = 13.2 % 12.1-15.4 788-0) PLT (test code = See_Comment H [Automated 777-3) message] The system which generated this result transmit qing reference range : 150 - 328 10*3/ ?L. The reference range was not u sed to interpret th is result as normal/abnormal . MPV (test code = 9.2 fL 9.8-13.0 L 81316-8) NRBC/100 WBC (test See_Comment [Automat ed code = 3866170103) message] The system which generated this result transmit qing reference range : 0.0 - 10.0 /100 WBCs. The reference range was not used to interpret this result as normal/abnormal . NRBC x10^3 (test code <0.01 See_Comment [Auto mated = 7258216001) message] The system which generated this result transmit qing reference range : 10*3/?L. The reference range was not used to interpret this result as normal/abnormal . GRAN MAT (NEUT) % 85.4 % (test code = 770-8) IMM GRAN % (test code 0.70 % = 0162105813) LYMPH % (test code = 8.2 % 736-9) MONO % (test code = 4.5 % 5905-5) EOS % (test code = 0.8 % 713-8) BASO % (test code = 0.4 % 706-2) GRAN MAT x10^3(ANC) 13.38 10*3/uL 1.99-6.95 H (test code = 6987105124) IMM GRAN x10^3 (test 0.11 10*3/uL 0.00-0.06 H code = 4838901643) LYMPH x10^3 (test code 1.29 10*3/uL 1.09-3.23 = 731-0) MONO x10^3 (test code 0.70 10*3/uL 0.36-1.02 = 742-7) EOS x10^3 (test code = 0.13 10*3/uL 0.06-0.53 711-2) BASO x10^3 (test code 0.06 10*3/uL 0.01-0.09 = 704-7) Lab Interpretation Abnormal (test code = 28985-9) [facility] Metabolic Panel (NA, K, CL, CO2, GLUCOSE, BUN, CREATININE, CA)2021-03-16 12:09:56 Test Item Value Reference Range Interpretation Comments NA (test code = 133 mmol/L 135-145 L 4141513427) K (test code = 2.8 mmol/L 3.5-5.0 LL 7520456776) CL (test code = 96 mmol/L 98-108 L 1852822663) CO2 TOTAL (test code = 28 mmol/L 23-31 1215629319) AGAP (test code = 2-16 8892462346) BUN (test code = 14 mg/dL 7-23 9049446345) GLUCOSE (test code = 137 mg/dL 70-110 H 2375953008) CREATININE (test code = 0.76 mg/dL 0.60-1.25 4965938514) CALCIUM (test code = 9.4 mg/dL 8.6-10.6 1308275278) eGFR (test code = mL/min/1.73m2 4896892567) POP (test code = POP) Association of [...] tests). Lab Interpretation Abnormal (test code = 43314-2) [facility] Metabolic Panel (NA, K, CL, CO2, GLUCOSE, BUN, CREATININE, CA)2021-03-16 12:09:56 Test Item Value Reference Range Interpretation Comments NA (test code = 133 mmol/L 135-145 L 0614934539) K (test code = 2.8 mmol/L 3.5-5.0 LL 9736737091) CL (test code = 96 mmol/L 98-108 L 6537536694) CO2 TOTAL (test code = 28 mmol/L 23-31 8295732415) AGAP (test code = 2-16 7765974089) BUN (test code = 14 mg/dL 7-23 5462327312) GLUCOSE (test code = 137 mg/dL 70-110 H 9493914976) CREATININE (test code = 0.76 mg/dL 0.60-1.25 2183208197) CALCIUM (test code = 9.4 mg/dL 8.6-10.6 1526498850) eGFR (test code = mL/min/1.73m2 6524892335) POP (test code = POP) Association of [...] tests). Lab Interpretation Abnormal (test code = 82118-3) [facility] (ALB,T.PRO,BILI T,BU/BC,ALT,AST,ALK PHOS)2021-03-16 12:06:58 Test Item Value Reference Range Interpretation Comments TOTAL BILI (test code = 5284074189) 0.7 mg/dL 0.1-1.1 BILI UNCON (test code = 9661691694) 0.4 mg/dL 0.1-1.1 BILI CONJ (test code = 7698486759) 0.0 mg/dL 0.0-0.3 T PROTEIN (test code = 9796505896) 7.6 g/dL 6.3-8.2 ALBUMIN (test code = 8301095109) 4.0 g/dL 3.5-5.0 ALK PHOS (test code = 2095681979) 113 U/L 34-122 ALTv (test code = 1742-6) 23 U/L 5-50 AST(SGOT) (test code = 7754861257) 34 U/L 13-40 Lab Interpretation (test code = Normal 10205-3) [facility]20073[facility] (ALB,T.PRO,BILI T,BU/BC,ALT,AST,ALK PHOS)2021-03-16 12:06:58 Test Item Value Reference Range Interpretation Comments TOTAL BILI (test code = 2504862395) 0.7 mg/dL 0.1-1.1 BILI UNCON (test code = 5195884147) 0.4 mg/dL 0.1-1.1 BILI CONJ (test code = 9275528248) 0.0 mg/dL 0.0-0.3 T PROTEIN (test code = 3995022045) 7.6 g/dL 6.3-8.2 ALBUMIN (test code = 6712144720) 4.0 g/dL 3.5-5.0 ALK PHOS (test code = 8233947129) 113 U/L 34-122 ALTv (test code = 1742-6) 23 U/L 5-50 AST(SGOT) (test code = 3419224006) 34 U/L 13-40 Lab Interpretation (test code = Normal 67610-1) [facility] GLUCOSE (AUTOMATED)2021-03-15 22:30:07 Test Item Value Reference Range Interpretation Comments POCT GLU (test code = 8309890167) 115 mg/dL 70-110 H Lab Interpretation (test code = Abnormal 10740-6) [facility] GLUCOSE (AUTOMATED)2021-03-15 22:30:07 Test Item Value Reference Range Interpretation Comments POCT GLU (test code = 5888511855) 115 mg/dL 70-110 H Lab Interpretation (test code = Abnormal 12416-1) [facility] 21:08:31 Test Item Value Reference Range Interpretation Comments PHOSPHORUS (test code = 6629010469) 4.0 mg/dL 2.5-5.0 Lab Interpretation (test code = Normal 82900-1) [facility] 21:08:31 Test Item Value Reference Range Interpretation Comments PHOSPHORUS (test code = 4837233040) 4.0 mg/dL 2.5-5.0 Lab Interpretation (test code = Normal 87636-5) [facility]TR[facility] [id number] 18:41:06 Test Item Value Reference Interpretation Comments Range TROPONIN I (test 0.011 ng/mL See_Comment [Automated code = 0504752239) message] The system which generated this result [...] biotin. Lab Interpretation Normal (test code = 75494-8) [facility] [id number] 18:41:06 Test Item Value Reference Interpretation Comments Range TROPONIN I (test 0.011 ng/mL See_Comment [Automated code = 3938161582) message] The system which generated this result [...] biotin. Lab Interpretation Normal (test code = 14931-0) [facility] [id number] 18:41:06 Test Item Value Reference Interpretation Comments Range TROPONIN I (test 0.011 ng/mL See_Comment [Automated code = 2589824918) message] The system which generated this result [...] biotin. Lab Interpretation Normal (test code = 95884-9) [facility] [id number] 18:38:05 Test Item Value Reference Range Interpretation Comments NT-proBNP (test code 77 pg/mL See_Comment [Autom ated = 2584799293) message] The system which generated this result transmitted reference range : <=125. The reference range was not used to interpret this result as normal/abnormal . POP (test code = POP) Biotin has been reported to cause a negative bias, interpret results relative to patient's use of biotin. Lab Interpretation Normal (test code = 50117-0) [facility] [id number] 18:38:05 Test Item Value Reference Range Interpretation Comments NT-proBNP (test code 77 pg/mL See_Comment [Autom ated = 0253668570) message] The system which generated this result transmitted reference range : <=125. The reference range was not used to interpret this result as normal/abnormal . POP (test code = POP) Biotin has been reported to cause a negative bias, interpret results relative to patient's use of biotin. Lab Interpretation Normal (test code = 30746-1) [facility] [id number] 18:38:05 Test Item Value Reference Range Interpretation Comments NT-proBNP (test code 77 pg/mL See_Comment [Autom ated = 6980909387) message] The system which generated this result transmitted reference range : <=125. The reference range was not used to interpret this result as normal/abnormal . POP (test code = POP) Biotin has been reported to cause a negative bias, interpret results relative to patient's use of biotin. Lab Interpretation Normal (test code = 99338-5) [facility] Test Item Value Reference Range Interpretation Comments MAGNESIUM (test code = 6119650030) 1.4 mg/dL 1.7-2.4 L Lab Interpretation (test code = Abnormal 31966-9) [facility] Test Item Value Reference Range Interpretation Comments MAGNESIUM (test code = 2227592899) 1.4 mg/dL 1.7-2.4 L Lab Interpretation (test code = Abnormal 70404-8) [facility]. METABOLIC PANEL (48010)2021-03-15 18:29:26 Test Item Value Reference Range Interpretation Comments NA (test code = 134 mmol/L 135-145 L 8430848897) K (test code = 3.1 mmol/L 3.5-5.0 L 0390779442) CL (test code = 94 mmol/L 98-108 L 2468226951) CO2 TOTAL (test code = 29 mmol/L 23-31 4136308757) AGAP (test code = 2-16 2815989205) BUN (test code = 13 mg/dL 7-23 4925242703) GLUCOSE (test code = 126 mg/dL 70-110 H 9874475333) CREATININE (test code = 0.79 mg/dL 0.60-1.25 6527703680) TOTAL BILI (test code = 0.7 mg/dL 0.1-1.0 0151589563) CALCIUM (test code = 9.7 mg/dL 8.6-10.6 8499275285) T PROTEIN (test code = 7.5 g/dL 6.3-8.2 0090121273) ALBUMIN (test code = 4.1 g/dL 3.5-5.0 4716695184) ALK PHOS (test code = 110 U/L 34-122 5127167675) ALTv (test code = 22 U/L 5-50 1742-6) AST(SGOT) (test code = 25 U/L 13-40 3498731633) eGFR (test code = mL/min/1.73m2 6948137282) POP (test code = POP) Association of [...] tests). Lab Interpretation Abnormal (test code = 32734-8) [facility]. METABOLIC PANEL (67369)2021-03-15 18:29:26 Test Item Value Reference Range Interpretation Comments NA (test code = 134 mmol/L 135-145 L 1471476769) K (test code = 3.1 mmol/L 3.5-5.0 L 1420017547) CL (test code = 94 mmol/L 98-108 L 2353559274) CO2 TOTAL (test code = 29 mmol/L 23-31 5388047197) AGAP (test code = 2-16 4776612192) BUN (test code = 13 mg/dL 7-23 4324545718) GLUCOSE (test code = 126 mg/dL 70-110 H 8675394780) CREATININE (test code = 0.79 mg/dL 0.60-1.25 1350960707) TOTAL BILI (test code = 0.7 mg/dL 0.1-1.0 7214839784) CALCIUM (test code = 9.7 mg/dL 8.6-10.6 4176847302) T PROTEIN (test code = 7.5 g/dL 6.3-8.2 5509977212) ALBUMIN (test code = 4.1 g/dL 3.5-5.0 7149381263) ALK PHOS (test code = 110 U/L 34-122 4595773907) ALTv (test code = 22 U/L 5-50 1742-6) AST(SGOT) (test code = 25 U/L 13-40 3195145361) eGFR (test code = mL/min/1.73m2 9173922234) POP (test code = POP) Association of [...] tests). Lab Interpretation Abnormal (test code = 75895-1) [facility] METABOLIC PANEL (84995)2021-03-15 18:29:26 Test Item Value Reference Range Interpretation Comments NA (test code = 134 mmol/L 135-145 L 4470253724) K (test code = 3.1 mmol/L 3.5-5.0 L 3562868765) CL (test code = 94 mmol/L 98-108 L 1948554970) CO2 TOTAL (test code = 29 mmol/L 23-31 0793326322) AGAP (test code = 2-16 7405792634) BUN (test code = 13 mg/dL 7-23 5311804569) GLUCOSE (test code = 126 mg/dL 70-110 H 3658773997) CREATININE (test code = 0.79 mg/dL 0.60-1.25 8140973063) TOTAL BILI (test code = 0.7 mg/dL 0.1-1.2 5053774344) CALCIUM (test code = 9.7 mg/dL 8.6-10.6 3773881578) T PROTEIN (test code = 7.5 g/dL 6.3-8.2 6460124505) ALBUMIN (test code = 4.1 g/dL 3.5-5.0 5049929012) ALK PHOS (test code = 110 U/L 34-122 3998518218) ALTv (test code = 22 U/L 5-50 2-6) AST(SGOT) (test code = 25 U/L 13-40 4926364837) eGFR (test code = mL/min/1.73m2 9339523303) POP (test code = POP) Association of [...] tests). Lab Interpretation Abnormal (test code = 97106-6) [facility] WITH [id number] 18:16:23 Test Item Value Reference Range Interpretation Comments WBC (test code = See_Comment H [Automated 2890-2) message] The sy stem which generated this result transmitted reference range : 4.20 - 10.70 10*3/?L. The reference range was not used to interpret this result as normal/abnormal . RBC (test code = See_Comment [Automated 829-8) message] The sy stem which generated this [...] RDW-SD (test code = 44.5 fL 38.5-51.6 02708-6) RDW-CV (test code = 13.2 % 12.1-15.4 788-0) PLT (test code = See_Comment H [Automated 777-3) message] The sy stem which generated this result transmitted reference range : 150 - 328 10*3/ ?L. The reference r jalen was not used to interpret this result as normal/abnormal . MPV (test code = 9.0 fL 9.8-13.0 L 61817-9) NRBC/100 WBC (test See_Comment [Automat ed code = 1613543016) message] The system which generated this result transmitted reference range : 0.0 - 10.0 /100 WBCs. The refer ence range was not u sed to interpret th is result as normal/abnormal . NRBC x10^3 (test code <0.01 See_Comment [Auto mated = 4321926283) message] The s ystem which generated this result transmitted reference range : 10*3/?L. The reference range was not used to interpret this result as normal/abnormal . GRAN MAT (NEUT) % 72.0 % (test code = 770-8) IMM GRAN % (test code 0.60 % = 5974792968) LYMPH % (test code = 19.3 % 736-9) MONO % (test code = 4.8 % 5905-5) EOS % (test code = 2.5 % 713-8) BASO % (test code = 0.8 % 706-2) GRAN MAT x10^3(ANC) 7.83 10*3/uL 1.99-6.95 H (test code = 3944618880) IMM GRAN x10^3 (test 0.07 10*3/uL 0.00-0.06 H code = 6113261485) LYMPH x10^3 (test code 2.10 10*3/uL 1.09-3.23 = 731-0) MONO x10^3 (test code 0.52 10*3/uL 0.36-1.02 = 742-7) EOS x10^3 (test code = 0.27 10*3/uL 0.06-0.53 711-2) BASO x10^3 (test code 0.09 10*3/uL 0.01-0.09 = 704-7) Lab Interpretation Abnormal (test code = 29242-3) [facility] WITH [id number] 18:16:23 Test Item Value Reference Range Interpretation [...] RDW-SD (test code = 44.5 fL 38.5-51.6 05962-0) RDW-CV (test code = 13.2 % 12.1-15.4 788-0) PLT (test code = See_Comment H [Automated 777-3) message] The sy stem which generated this result transmitted reference range : 150 - 328 10*3/ ?L. The reference r jalen was not used to interpret this result as normal/abnormal . MPV (test code = 9.0 fL 9.8-13.0 L 89077-6) NRBC/100 WBC (test See_Comment [Automat ed code = 1190331967) message] The system which generated this result transmitted reference range : 0.0 - 10.0 /100 WBCs. The refer ence range was not u sed to interpret th is result as normal/abnormal . NRBC x10^3 (test code <0.01 See_Comment [Auto mated = 0500582798) message] The s ystem which generated this result transmitted reference range : 10*3/?L. The reference range was not used to interpret this result as normal/abnormal . GRAN MAT (NEUT) % 72.0 % (test code = 770-8) IMM GRAN % (test code 0.60 % = 6042891235) LYMPH % (test code = 19.3 % 736-9) MONO % (test code = 4.8 % 5905-5) EOS % (test code = 2.5 % 713-8) BASO % (test code = 0.8 % 706-2) GRAN MAT x10^3(ANC) 7.83 10*3/uL 1.99-6.95 H (test code = 5062069267) IMM GRAN x10^3 (test 0.07 10*3/uL 0.00-0.06 H code = 6482855907) LYMPH x10^3 (test code 2.10 10*3/uL 1.09-3.23 = 731-0) MONO x10^3 (test code 0.52 10*3/uL 0.36-1.02 = 742-7) EOS x10^3 (test code = 0.27 10*3/uL 0.06-0.53 711-2) BASO x10^3 (test code 0.09 10*3/uL 0.01-0.09 = 704-7) Lab Interpretation Abnormal (test code = 36492-2) [facility]; SPECIAL COAGULATION [id number] 02:27:27Related Clinical HistoryChester Clint Duran is 65YO male with type 2 diabetes, [...] No known family history of coagulation disorder [facility] LABORATORY SERVICESPertinent Lab Results ? Ref. Range [...] Testing: ? Factor V Leiden ?Normal Prothrombin 89558 ?Normal ? Ref. Range ? 02/06/2021 VerifyNow Aspirin?<550 ? 384 ? VerifyNow P2Y12 ?<194 ? 171 [facility] LABORATORY SERVICESCoag DMT interpretation1) There is no [...] study. Diabetol Metab Syndr 7, 8 (2015). [email or web address] ? Juan R Case, Kasey A, Juan R P, Janak C, Juan R S, Pepe M, Daniel K, Annabella Y, Russell Morrell. Aspirin for primary prevention of cardiovascular events in patients with diabetes: A meta-analysis. Diabetes Res Clin Pract. 2010 May;87(2):211-8. doi: 10.1016/j.diabres.2009.09.029. Epub 2008Jan 31. PMID: 21067814. ? Meseret Hall., Frank, AMelonyA., Danielle WMelonyA. et al. Aspirin effect on the incidence of major adverse cardiovascular events in patients with diabetes mellitus: a systematic review and meta-analysis. Cardiovasc Diabetol 10, 25 (20 11). [email or web address] ? Samy SH, Kimberly BRADLEY. Coagulation and fibrinolysis in diabetes. Diab Vasc Dis Res. 2010 Jan;7(4):260- 73. doi: 10.1177/4046337095137675. Epub 2009Dec 25. PMID: 86625815.[facility] LABORATORY SERVICESRecommendations1) No further coagulation testing is recommend ed at this time. ? 2) Independent of the normal test results this patient has an extremely positive history of thrombosis. Therefore, life-long anticoagulant therapy is consistent with guidelines. ?[facility] LABORATORY SERVICESUnTexas Children's Hospital The WoodlandsMisc. Sendout- LUPUS ANTICOAGULANT REFLEXIVE PANEL ARUP [id number] 17:38:08 Test Item Value Reference Range Interpretation Comments Miscellaneous Test (test See scanned report code = 2200246794) Performing Lab (test code ARUP = 2865682607) [facility] CenterWB [id number] 21:10:01FOLATE RBCComment: Unable to calculate RBC-Folate due to high Folate concentration.[facility] LABORATORY SERVICESUnTexas Children's Hospital The WoodlandsVITAMIN B1 (THIAMINE), WHOLE BLOOD 2021-03-07 15:44:45 Test Item Value Reference Range Interpretation Comments Vitamin B1, Whole 147 nmol/L 70-180 INTERPRETI VE INFORMATION: Blood (test code = Vitamin B 1, Whole Blood 30591-3) This assay zara ures the concentration o f thiamine diphosphate (TD P), the primary active form of vitamin B1. Dontrell roximately 90 percent of v itamin B1 present in whol e blood is TDP. Thiamine a nd thiamine monoph osphate, which comprise the remaining 10 pe rcent, are not measured. T his test was developed a nd its performance characteristics determined by [facility]. I t has not been cleared or approved by the [place] Food and Drug Administration. This test was performed i n a CLIA certified labor atory and is intended for clinical purposes.Perfor med By: [facility] Laboratori es[address] [place] [id number] aboratory Director: Elena Mansfield MD [facility] CenterANTICARDIOLIPIN [id number] 17:52:49 Test Item Value Reference Interpretation Comments Range Anticardiolipin See_Comment [Automated Antibody IgG (test message] The code = 4102496113) system [facility] generated this result transmitted reference range: 0.0 - 10.0 GPL. The reference range was not used to interpret this result as normal/abnormal . Anticardiolipin See_Comment [Automated Antibody IgM (test message] The code = 1378028715) system [facility] generated this result transmitted reference range: 0.0 - 10.0 MPL. The reference range was not used to interpret this result as normal/abnormal . Anticardiolipin See_Comment [Automated Antibody IgA (test message] The code = 3001408025) system [facility] generated this result transmitted reference [...] date (i.e. 4-6 weeks) to confirmpositivity. ?Fede R et al. ?J Thromb Haemost 2006; 4: 2210-4 Lab Interpretation Normal (test code = 21513-1) [facility] CenterANTI-B2 GLYCOPROTEIN I [id number] 17:52:49 Test Item Value Reference Interpretation Comments Range Anti-B2 See_Comment [Automated Glycoprotein 1 IgG message] The (test code = system which 4811534130) generated this result transmitted reference range : 0.0 - 20.0 SGU. The reference range was not used to interpret this result as normal/abnormal . Anti-B2 See_Comment [Automated Glycoprotein 1 IgM message] The (test code = system which 3730696917) generated this result transmitted reference range : 0.0 - 20.0 SMU. The reference range was not used to interpret this result as normal/abnormal . Anti-B2 See_Comment [Automated Glycoprotein 1 IgA message] The (test code = system which 4175202018) generated this result transmitted reference range : [...] losses and/or thrombocytopenia. TEST PERFORMED AT:[facility]. [address] [facility], [address] [facility] [place] [address] Lab Interpretation Normal (test code = 13418-5) [facility] CenterRPR (QUANTITATIVE)2021-03-04 23:01:53 Test Item Value Reference Range Interpretation Comments RPR (Quantitative) (test code = Nonreactive Nonreactive 67737-3) Lab Interpretation (test code = Normal 15041-3) [facility] CenterANTITHROMBIN [id number] 17:54:51 Test Item Value Reference Range Interpretation Comments ANTITHROMBIN ACTIVITY (test code = 117 % 83-128 6125963481) Lab Interpretation (test code = Normal 15046-3) [facility] CenterFREE PROTEIN [id number] 17:54:46 Test Item Value Reference Range Interpretation Comments FREE PROTEIN S (test code 90 % 55-146 = 2253593604) POP (test code = POP) Age and hormonal status may affect the normal range for females (particularly during ). Lab Interpretation (test Normal code = 24286-2) [facility] CenterPROTEIN C [id number] 17:54:36 Test Item Value Reference Range Interpretation Comments PROTEIN C ACTIVITY (test 133 % 70-140 code = 2983927314) POP (test code = POP) Test should not be ordered in patients on Coumadin as it can decrease Protein C and S levels. Protein C activity is low in neonates and infants and increases to adult levels during adolescence. Additional studies should be conducted to determine the source of unexpected abnormal results. Lab Interpretation (test Normal code = 30660-9) [facility] CenterFIBRINOGEN2021-11-24 17:51:45 Test Item Value Reference Range Interpretation Comments Fibrinogen (test code = 2386976770) 504 mg/dL 167-453 H Lab Interpretation (test code = Abnormal 71998-1) [facility] CenterFACTOR 5 [id number] 15:51:49 Test Item Value Reference Range Interpretation Comments FACTOR 5 LEIDEN Normal Normal (test code = 1497404911) POP (test code = Phenotype Characteristics: POP) [...] the Factor 5 Leiden mutation is c.1601G>A (p.Tps879Oxq). Methodology: Polymerase chain reaction and fluorescence monitoring. Limitations: Rare Factor V mutations (S9207L, H0150C, and D0788U) and any additional SNPs in the probe binding region may interfere with the target detection and yield an INVALID result. The performance of this assay has not been evaluated with samples from pediatric patients. Counseling and informed consent are recommended for genetic testing. References: OMIM: 086974 [email or web address]://ghr.nlm.nih.gov/co ndition/ilueld-v-qpqszj-th rombophilia [facility] CenterFACTOR 2 G73174X [id number] 15:51:49 Test Item Value Reference Range Interpretation Comments Factor 2 Z31137D Normal Normal Mutation (test code = 8880256375) POP (test code = Phenotype POP) Characteristics: [...] further increased for homozygotes. 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 Clinical Sensitivity for Venous Thrombosis: Approximately 10%. Methodology: Polymerase chain reaction and fluorescence monitoring Limitations: The performance of this assay has not been evaluated with samples from pediatric patients. Counseling and informed consent are recommended for genetic testing. References: OMIM: [id number] https://ghr.nlm.nih.gov/c ondition/prothrombin-thro mbophilia [facility], [id number] 21:15:03 Test Item Value Reference Range Interpretation Comments VIT B12 (test code = >1000 240-930 H [id number]) POP (test code = POP) Biotin has been reported to cause a positive bias, interpret results relative to patient's use of biotin. Lab Interpretation (test Abnormal code = 46861-5) [facility] 19:23:39 Test Item Value Reference Range Interpretation Comments FOLATE SER (test code = 3345171636) >20.0 3.0-20.0 H Lab Interpretation (test code = Abnormal 46141-8) [facility]21[facility] 17:33:40 Test Item Value Reference Range Interpretation Comments HCT (test code = 4544-3) 40.1 % 38.4-49.3 Lab Interpretation (test code = Normal 69497-5) [facility] [id number] 14:46:27 Test Item Value Reference Range Interpretation Comments URIC ACID (test code = 2424427897) 5.0 mg/dL 3.6-8.0 Lab Interpretation (test code = Normal 53085-4) [facility]MOL[facility]ITY, SERUM OR [id number] 01:04:26 Test Item Value Reference Range Interpretation Comments OSMOLALITY (test code = See_Comment L [Au tomated message] [id number]) The system [employer] generated this result transmitted ref erence range: 278 - 30 5 mOsm/kg. The reference range was not used to int erpret this result as normal/abnormal . Lab Interpretation (test Abnormal code = 91774-9) [facility]MP[facility]21-[facility] 13:37:00 Test Item Value Reference [...] mg/dl 8.4-10.2 = CALC) EGFR if >60 Brune[place] (test code mL/min/1.73m\\ = EGFRAA) S\\2 EGFR if Non- 59 Estimate d Glomerular Bruneian (test code mL/min/1.73m\\ Filtrat ion Rate (eGFR) [...] c hronic kidney failure. CBC WITH AUTO [id number] 13:36:00 Test Item Value Reference Range Interpretation [...] 0.4 % 0.0-0.4 IG%) MRI BRAIN W/O [id number] 12:07:29 [facility])Name: JOE DURAN : 1955 Sex: MMRI of [...] 112:02 PMDictated By: SYLVESTER LIMDate: 01/07/2021 12:02CORONARY [id number] 12:53:00 Test Item Value Reference Range Interpretation [...] code = 28 mg/dl 20-50 VLDL) GLYCOSALATED [id number] 12:52:00 Test Item Value Reference Range Interpretation [...] THE MEAN GLUCOS E IS NOT RELIABLE. [id number] 12:43:00 Test Item Value Reference Range Interpretation [...] 4 - SerumAlbu min)] EGFR if >60 Brune[place] (test code mL/min/1.73m\\ = EGFRAA) S\\2 EGFR if Non- 55 Estimate d Glomerular Bruneian (test code mL/min/1.73m\\ Filtrat ion Rate (eGFR) [...] management of c hronic kidney failure. URIC [id number] 12:40:00 Test Item Value Reference Range Interpretation Comments Uric Acid (test code = URICA) 5.0 mg/dl 2.4-7.2 CORONARY [id number] 13:13:00 Test Item Value Reference Range Interpretation [...] (test code = 21 mg/dl 20-50 VLDL) [id number] 12:02:00 Test Item Value Reference Range Interpretation [...] 4 - SerumAlbu min)] EGFR if >60 [place]une[place] (test code mL/min/1.73m\\ = EGFRAA) S\\2 EGFR if Non- 59 Estimate d Glomerular Bruneian (test code mL/min/1.73m\\ Filtrat ion Rate (eGFR) [...] c hronic kidney failure. CBC WITH AUTO [id number] 11:22:00 Test Item Value Reference Range Interpretation [...]
[2021-06-25] MEDS ORDERED: CEFTRIAXONE 1000 MG/VIAL ONE (09:19)
[2021-06-25] MEDS ORDERED: ACETAMINOPHEN 325 MG/SUPP PR ONE (09:20)
[2021-06-25] MEDS ORDERED: NA CHLORIDE 0.9% 1,000 ML ONE (09:20)
[2021-06-25] MEDS ORDERED: NA CHLORIDE 0.9% 100 ML IV ONE (09:20)
[2021-06-25 09:24] LABS: Urine Blood Trace-intact (Negative); Urine Glucose Negative (Negative); Urine Protein Negative (Negative); Urine Specific Gravity 1.025 (1.005-1.030); Urine pH 5.5 (5.0-7.0)
[2021-06-25 09:39] LABS: Absolute Lymphocytes (CBC) 1.6 K/uL (0.7-4.9); Hematocrit 26.8 % (39.6-49.0); Lymphocytes % 9.2 % (15.3-44.8); MPV 8.6 fL (7.6-11.3)
[2021-06-25 09:44] LABS: Protime INR 1.33
[2021-06-25 09:50] LABS: Albumin 1.7 g/dL (3.4-5.0); Bilirubin Total 0.2 mg/dL (0.2-1.0); Potassium 3.3 mmol/L (3.5-5.1); Protein, Total 6.3 g/dL (6.4-8.2)
--- NOTE | 2021-06-25 09:57 | ER ---
Nurse's Notes [facility] Name: Harsh Dalton Age: 65 yrs Sex: Male : 1955 Arrival Date: 06/25/2021 Time: 08:55 Bed 7 Private MD: Diagnosis: Sepsis without end organ dysfunction;Sacral Decubitus ulcer;Hypernatremia;Hypokalemia Presentation: 06/25 09:00 Chief complaint: EMS states: Pt from [facility], EMS called w/ c/o fever, ph limited pt hx given by staff, axillary temp 102.7, HR 117, systolic BP 88, wounds to sacral area that are draining, pt non-verbal w/ PEG tube in place. Coronavirus screen:. Ebola Screen: No symptoms or risks identified at this time. Initial Sepsis Screen: Does the patient meet any 2 criteria? RR > 20 per min. Temp <36.0*C (96.8*F)) or > 38.3*C (100.9*F). HR > 90 bpm. Yes Does the patient have a suspected source of infection? Yes: Skin breakdown/wound. Risk Assessment: Do you want to hurt yourself or someone else? Patient reports no desire to harm self or others. Onset of symptoms was June 25, 2021. 09:00 Method Of Arrival: EMS: [facility] 09:00 Acuity: ROHITH 2 ph Triage Assessment: 09:07 General: Appears in no apparent distress. Behavior is drowsy, flat, quiet, Reports ph fever for. Pain: Unable to use pain scale. Patient is disoriented. Neuro: Level of Consciousness is awake, Oriented to unable to assess, pt aphasic. Cardiovascular: Capillary refill < 3 seconds in bilateral fingers Patient's skin is warm and dry. Respiratory: Airway is patent Respiratory effort is even, Respiratory pattern is tachypnea. GI: PEG tube in place. : Fragoso in place to gravity drainage. Derm: Skin is fragile, is thin, Skin is pale, Wound noted coccyx Wound is stage 4 sacral wound w/ tunneling and exudate noted. Derm: Wound noted stage 2 pressure ulcer to L heel. Musculoskeletal: arms and legs contracted, hx of CVA. Historical: - Allergies: : No Known Allergies; ph - PMHx: 09:07 Cerebrovascular accident; ph - Immunization history:: Adult Immunizations unknown. - Social history:: Smoking status: unknown. Screenin:04 Abuse screen: Denies threats or abuse. Denies injuries from another. Nutritional ph screening: No deficits noted. Tuberculosis screening: No symptoms or risk factors identified. Fall Risk No fall in past 12 months (0 pts). Secondary diagnosis (15 points) impaired mobility, IV access (20 points). Ambulatory Aid- None/Bed Rest/Nurse Assist (0 pts). Gait- Impaired (20 pts.). Mental Status- Overestimates/Forgets Limitations (15 pts.). Total Bee Fall Scale indicates High Risk Score (45 or more points). Fall prevention measures have been instituted. Side Rails Up X 2 Placed Close to Nursing Station Frequent Obs/Assessments Occuring As available patient and family educated on Fall Prevention Program and Strategies. Assessment: 09:39 General: Appears in no apparent distress. Behavior is calm. Pain: Unable to use pain miles scale. Does not appear to understand pain scale. Derm: Decubitus approximately 2.6 cm to 7.5 cm is unstageable. is draining small amount. 09:41 Derm: Decubitus located on left sacrum hip(s). miles 13:23 Reassessment: Patient appears in no apparent distress at this time. No changes from previously documented assessment. Patient and/or family updated on plan of care and expected duration. Pain level reassessed. Vital Signs: 09:00 BP 140 / 63; Pulse 110; Resp 28; Temp 102.7; Pulse Ox 94% on R/A; ph 09:14 Weight 72.57 kg; ph 09:41 BP 94 / 60; Pulse 104; Resp 24; Pulse Ox 97% on 2 lpm NC; miles 10:34 BP 109 / 72; Pulse 100; Resp 22; Pulse Ox 96% on 2 lpm NC; miles 12:23 BP 101 / 67; Pulse 93; Resp 19; Temp 99.4(R); Pulse Ox 96% on 2 lpm NC; miles 13:24 BP 98 / 53; Pulse 93; Resp 18; Pulse Ox 96% on 2 lpm NC; ph ED Course: 08:55 Patient arrived in ED. ds1 09:01 Soraida Hsu FNP-C is PHCP. kb 09:01 Ari Blackburn DO is Attending Physician. kb 09:03 Triage completed. ph 09:03 Arm band placed on right wrist. ph 09:06 Patient has correct armband on for positive identification. Placed in gown. Bed in low ph position. Call light in reach. Side rails up X2. security monitor on. Pulse ox on. NIBP on. Door closed. Noise minimized. 09:18 Maintain EMS IV. Dressing intact. Good blood return noted. Site clean \\T\\ dry. Gauge \\T\\ ph site: 20 LAC. IV is patent, is intact, with fluids infusing freely, with good blood return. 09:38 COVID-19/FLU A+B (Document "Date of Onset" if Symptomatic) Sent. miles 09:38 Blood Culture Adult (2) Sent. miles 09:38 CBC with Diff Sent. miles 09:38 CMP Sent. miles 09:38 Lactate Sent. miles 09:38 Protime (+inr) Sent. miles 09:38 Ptt, Activated Sent. miles 09:38 Urine Microscopic Only Sent. miles 09:41 No provider procedures requiring assistance completed. miles 09:55 Prince Goldman MD is Hospitalizing Provider. ms3 09:58 Chest Single View XRAY In Process Unspecified. EDMS 15:18 Patient admitted, IV remains in place. miles Administered Medications: 09:38 Drug: Acetaminophen Suppository 650 mg Route: SC; miles 09:39 Follow up: Response: No adverse reaction miles 09:38 Drug: Rocephin (cefTRIAXone) 1 grams Route: IV; Rate: calculated rate; Site: left miles antecubital; 12:22 Follow up: Response: No adverse reaction; IV Status: Completed infusion miles 09:39 Drug: NS 0.9% (30 ml/kg) 30 ml/kg Route: IV; Rate: bolus; Site: left antecubital; miles 09:50 Drug: NS 0.9% (30 ml/kg) 30 ml/kg Route: IV; Rate: bolus; Site: left antecubital; miles 12:22 Follow up: IV Status: Completed infusion miles Outcome: 09:57 Decision to Hospitalize by Provider. ms3 15:17 Admitted to Med/surg accompanied by tech. miles 15:17 Condition: good 15:17 Instructed on the need for admit. 15:19 Patient left the ED. miles Signatures: Dispatcher [employer] EDMS Soraida Hsu FNP-C ADULT EDUCATION TEACHER-Ckb Carmela Miranda ds1 Yuly Clay, RN RN ph Ari Blackburn, DO SHEPHERD ms3 Sowmya Hayward, RN RN miles
--- NOTE | 2021-06-25 09:58 | EDPHYS ---
Physician Documentation [facility] Name: Harsh Dalton Age: 65 yrs Sex: Male : 1955 Arrival Date: 06/25/2021 Time: 08:55 Bed 7 Private MD: ED Physician Ari Blackburn HPI: 06/25 10:09 This 65 yrs old Male presents to ER via EMS with complaints of Fever. kb 10:09 The patient reports fever, that was measured at 102 degrees Fahrenheit, with an kb emergency department temperature of 102.7 degrees Fahrenheit. Onset: The symptoms/episode began/occurred this morning. Modifying factors: there are no obvious modifying factors. Severity of symptoms: At their worst the symptoms were moderate in the emergency department the symptoms are unchanged. The patient has not experienced similar symptoms in the past. The patient has been recently been admitted at [facility], was discharged last month. EMS called to custodial for fever of 102. . Historical: - Allergies: 09:07 No Known Allergies; ph - PMHx: 09:07 Cerebrovascular accident; ph - Immunization history:: Adult Immunizations unknown. - Social history:: Smoking status: unknown. ROS: 10:06 Unable to obtain ROS due to altered mental status. kb 16:24 Abdomen/GI: Negative for abdominal pain, nausea, vomiting, diarrhea, and constipation. kb Exam: 10:06 ENT: Moist Mucous membranes Cardiovascular: Regular rate and rhythm with a normal S1 kb and S2. No gallops, murmurs, or rubs. No pulse deficits. Respiratory: Respirations even and unlabored. No increased work of breathing. Abdomen/GI: Soft, non-tender. No distention MS/ Extremity: Pulses equal, no cyanosis. Neurovascular intact. Full, normal range of motion. 10:06 Constitutional: The patient appears awake. 10:06 ECG was reviewed by the Attending Physician. 10:06 Skin: lesion(s), noted, and can be described as ulcerated, DECUBITUS ULCERS NOTED TO HEELS AND SACRUM. 10:08 Neuro: Exam negative for acute changes. kb Vital Signs: 09:00 BP 140 / 63; Pulse 110; Resp 28; Temp 102.7; Pulse Ox 94% on R/A; ph 09:14 Weight 72.57 kg; ph 09:41 BP 94 / 60; Pulse 104; Resp 24; Pulse Ox 97% on 2 lpm NC; miles 10:34 BP 109 / 72; Pulse 100; Resp 22; Pulse Ox 96% on 2 lpm NC; miles 12:23 BP 101 / 67; Pulse 93; Resp 19; Temp 99.4(R); Pulse Ox 96% on 2 lpm NC; miles 13:24 BP 98 / 53; Pulse 93; Resp 18; Pulse Ox 96% on 2 lpm NC; ph MDM: 09:01 Patient medically screened. kb 09:49 Data reviewed: vital signs, nurses notes. Data interpreted: Pulse oximetry: on room air kb is 97 %. Interpretation: normal. 10:06 Counseling: I had a detailed discussion with the patient and/or guardian regarding: the kb historical points, exam findings, and any diagnostic results supporting the discharge/admit diagnosis, lab results, radiology results, the need for further work-up and treatment in the hospital. Physician consultation: Prince Jones BELLO was contacted at 10:06, regarding admission, to the telemetry unit. consult, and will see patient in ED. 06/25 09:02 Order name: Blood Culture Adult (2) kb 06/25 09:02 Order name: CBC with Diff; Complete Time: 09:45 kb 06/25 09:02 Order name: CMP; Complete Time: 09:50 kb 06/25 09:02 Order name: Lactate; Complete Time: 09:46 kb 06/25 09:02 Order name: Protime (+inr); Complete Time: 09:45 kb 06/25 09:02 Order name: Ptt, Activated; Complete Time: 09:45 kb 06/25 09:02 Order name: Urine Microscopic Only; Complete Time: 10:10 kb 06/25 09:02 Order name: Chest Single View XRAY; Complete Time: 10:27 kb 06/25 09:02 Order name: COVID-19/FLU A+B (Document "Date of Onset" if Symptomatic); Complete Time: kb 10:27 06/25 09:23 Order name: Urine Dipstick-Ancillary; Complete Time: 09:34 EDMS 06/25 10:08 Order name: Urine Culture EDMS 06/25 09:02 Order name: Accucheck; Complete Time: 10:32 kb 06/25 09:02 Order name: Cardiac monitoring; Complete Time: 09:18 kb 06/25 09:02 Order name: EKG - Nurse/Tech; Complete Time: 09:54 kb 06/25 09:02 Order name: IV Saline Lock - Large Bore; Complete Time: 09:18 kb 06/25 09:02 Order name: Labs collected and sent; Complete Time: 09:18 kb 06/25 09:02 Order name: O2 Per Protocol; Complete Time: 09:18 kb 06/25 09:02 Order name: O2 Sat Monitoring; Complete Time: 09:18 kb 06/25 09:02 Order name: Urine Dipstick-Ancillary (obtain specimen); Complete Time: 09:18 kb EC:06 Rate is 104 beats/min. Rhythm is regular. Left axis deviation noted. AK interval is kb normal at 136 msec. QRS interval is normal at 74 msec. QT interval is normal at 344 msec. Administered Medications: 09:38 Drug: Acetaminophen Suppository 650 mg Route: AK; miles 09:39 Follow up: Response: No adverse reaction miles 09:38 Drug: Rocephin (cefTRIAXone) 1 grams Route: IV; Rate: calculated rate; Site: left miles antecubital; 12:22 Follow up: Response: No adverse reaction; IV Status: Completed infusion miles 09:39 Drug: NS 0.9% (30 ml/kg) 30 ml/kg Route: IV; Rate: bolus; Site: left antecubital; miles 09:50 Drug: NS 0.9% (30 ml/kg) 30 ml/kg Route: IV; Rate: bolus; Site: left antecubital; miles 12:22 Follow up: IV Status: Completed infusion Disposition: 09:51 65-year-old male with unknown past medical history presents via [facility] from [address] for fever, hypotension that was noted prior to arrival. Evaluation patient is alert, in no apparent distress, sickly appearing. Heart rate is tachycardic and rhythm is regular. Lungs clear to auscultation bilaterally with tachypnea. Abdominal exam nontender palpation, bowel sounds present, G-tube in place without drainage. Skin exam significant for sacral decubitus ulceration. Case discussed with Soraida Hsu, nurse petitioner, and agree with plan.. 10:11 Chart complete. kb Disposition Summary: 06/25/21 09:57 Hospitalization Ordered Hospitalization Status: Inpatient Admission [facility] [place] Provider: Prince Jones ms3 Location: Telemetry/MedSurg (Inpatient) ms3 Condition: Stable ms3 Problem: new ms3 Symptoms: are unchanged ms3 Bed/Room Type: Standard ms3 Room Assignment: 215(06/25/21 14:17) bd Diagnosis - Sepsis without end organ dysfunction ms3 - Sacral Decubitus ulcer ms3 - Hypernatremia ms3 - Hyponatremia ms3 - Hypokalemia kb Forms: - Medication Reconciliation Form ms3 - SBAR form ms3 Signatures: Dispatcher [employer] EDMS Soraida Hsu, OUTSIDE PHYSICAL DAMAGE APPRAISER-C OUTSIDE PHYSICAL DAMAGE APPRAISER-Ckb Myrna Boswell Patricia, RN RN ph Ari Blackburn, DO ms3 Au-StagerSowmya RN RN miles Corrections: (The following items were deleted from the chart) 10:08 10:06 ENT: Moist Mucous membranes Cardiovascular: Regular rate and rhythm with a normal kb S1 and S2. No gallops, murmurs, or rubs. No pulse deficits. Respiratory: Respirations even and unlabored. No increased work of breathing. Talking in full sentences Abdomen/GI: Soft, non-tender. No distention MS/ Extremity: Pulses equal, no cyanosis. Neurovascular intact. Full, normal range of motion. kb 14:17 09:57 ms3 bd
[2021-06-25 10:07] LABS: Calcium Oxalate Crystals- Ur PRESENT (NONE SEEN); Urine Bacteria >50 /HPF (NONE SEEN); Urine RBC <5 /HPF (NONE SEEN); Urine Yeast MANY (NONE SEEN); Urine Yeast with Hyphae PRESENT
[2021-06-25 10:25] LABS: SARS-COV-2 RT PCR NEGATIVE (NEGATIVE)
--- NOTE | 2021-06-25 10:26 | RAD REPORT ---
EXAM DESCRIPTION: Alek Single View06/25/2021 9:59 am CLINICAL HISTORY: Fever COMPARISON: May 2021 FINDINGS: The lungs appear clear of acute infiltrate. The heart is normal size. Battery pack overlies the left chest IMPRESSION: No acute abnormalities displayed
--- NOTE | 2021-06-25 11:50 | P.HP ---
Certification for Inpatient Patient admitted to: Inpatient With expected LOS: >2 Midnights Practitioner: I am a practitioner with admitting privileges, knowledge of patient current condition, hospital course, and medical plan of care. 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 He returns to the hospital after a recent hospitalization for sepsis in mid May. He was found to have MSSA and Pseudomonas. His blood cutlures grew MSSA at the time. He also underwent debridement of his decubitus ulcer during that hospitalization. He was transferred to [facility] where he has been there for 3-7 days. He is brought in today after he spiked a fever of 102 degrees. Patient's aphasia is making it difficult to obtain history. He was hypotensive with SBP in the 60's. He required IVF, which returned his SBP to the 90's. He has a WBC of 17. Lactic acid of 2.0. Blood and urine cultures were sent. Allergies No Known Allergies Allergy (Unverified 05/11/21 09:07) Home Medications: Amlodipine [Norvasc*] 1 tab FT DAILY 05/17/21 Ascorbate Calcium [Vitamin C] 1 tab FT DAILY 05/17/21 Atorvastatin Calcium [Lipitor] 1 tab FT BEDTIME 05/17/21 Carvedilol [Coreg] 1 tab FT BID 05/17/21 Cholecalciferol (Vitamin D3) [Vitamin D3] 1 cap FT DAILY 05/17/21 Docusate Sodium [Colace] 10 ml FT DAILY 05/17/21 Doxazosin Mesylate [Cardura] 1 tab FT DAILY 05/17/21 Famotidine [Pepcid] 1 tab FT DAILY 05/17/21 Fluoxetine HCl 1 tab FT DAILY 05/17/21 Pantoprazole Granules [Protonix Granules*] 1 packet FT BID 05/17/21 Polyethylene Glycol 3350 [Miralax] 1 packet FT DAILY PRN 05/17/21 Potassium Chloride 15 ml FT BID 05/17/21 Tamsulosin HCl [Flomax] 1 cap FT BID 05/17/21 Zinc 1 tab FT DAILY 05/17/21 modafiniL [Provigil*] 1 tab FT DAILY 05/17/21 Cefazolin Sodium in 0.9 % NaCl [Cefazolin 2 G/100 ml-0.9% NaCl] 2 gm IV Q8H #21 plast..bag 05/21/21 Glucerna 1.2 Mendel 1 bot RTH CONT #30 bot 05/21/21 Medihoney [Medihoney Woundcare Gel*] 1 appl TOP DAILY #1 tube 05/21/21 Meropenem [Merrem 1 GM/100 ML NS IVPB] 1 gm IV Q8H #21 bag 05/21/21 Sodium Chloride Tab [Sodium Chloride*] 2 gm FT BIDWM #60 tab 05/21/21 - Past Medical/Surgical History Diabetic: Yes -: CVA -: HTN -: T2DM -: HLD -: FTT -: GERD -: BPH -: hemiplegia, dysphagia, weakness, aphasia -: Gastrostomy tube Physical Examination - Physical Exam General: Other (Diaphoretic) HEENT: Atraumatic, Normocephalic Respiratory: Normal air movement Cardiovascular: Regular rate/rhythm, Normal S1 S2 Gastrointestinal: Soft and benign, Non-distended Musculoskeletal: Other (contracted) Neurological: Other (aphasic) - Studies Laboratory Data (last 24 hrs) 06/25/21 09:15: PT 14.7 H, INR 1.33, APTT 30.7 06/25/21 09:15: Sodium 147 H, Potassium 3.3 L, BUN 69 H, Creatinine 0.91, Glucose 258 H, Total Bilirubin 0.2, AST 45 H, ALT 38, Alkaline Phosphatase 100 06/25/21 09:15: WBC 17.00 H, Hgb 8.6 L, Hct 26.8 L, Plt Count 402 Assessment and Plan - Problems (Diagnosis) (1) Sepsis Current Visit: Yes Status: Acute (2) Aphasia Current Visit: No Status: Acute (3) Sacral decubitus ulcer, stage III Current Visit: No Status: Acute (4) BPH (benign prostatic hyperplasia) Current Visit: No Status: Chronic Qualifiers: (5) CVA (cerebral vascular accident) Current Visit: No Status: Chronic Qualifiers: (6) GERD (gastroesophageal reflux disease) Current Visit: No Status: Chronic Qualifiers: (7) Gastrostomy tube dependent Current Visit: No Status: Chronic (8) HLD (hyperlipidemia) Current Visit: No Status: Chronic Qualifiers: (9) HTN (hypertension) Current Visit: No Status: Chronic Qualifiers: (10) T2DM (type 2 diabetes mellitus) Current Visit: No Status: Chronic Qualifiers: - Advance Directives Does patient have a Living Will: No Does patient have a Durable POA for Healthcare: No Physician Review Additional Text: Assessment Patient is a 65 year old male with a PMH of CVA with residual aphasia and hemiparesis. He returns to the hospital after spiking a fever of 102 degrees. Sepsis Leukocytosis Decubitus ulcer CVA with residual aphasia PEG status PLAN: Will admit inpatient with telemetry Hemodynamic monitoring. Will start broad spectrum antibiotics and IVF Follow up blood cx CT A/P Resume tube feeds Famotidine for DVT ppx
[2021-06-25] MEDS ORDERED: POLYETHYL GLY 3350 17 GM/DOSE FT PRN (11:52)
[2021-06-25] MEDS ORDERED: MEROPENEM IV SCH (12:00)
[2021-06-25] MEDS ORDERED: NA CHLORIDE 0.9% 1,000 ML IV SCH (15:03)
[2021-06-25 15:28] VITALS: BMI 23.6
--- NOTE | 2021-06-25 15:49 | RAD REPORT ---
EXAM DESCRIPTION: CT - Abdomen Pelvis W Contrast - 06/25/2021 3:29 pm CLINICAL HISTORY: Abdominal pain/sepsis/hip pain COMPARISON: none. TECHNIQUE: Computed axial tomography of the abdomen pelvis was obtained. 100 cc Isovue-300 was admin istered intravenously. Oral contrast was not requested which limits evaluation of bowel. All CT scans are performed using dose optimization technique as appropriate and may include automated exposure control or mA/KV adjustment according to patient size. FINDINGS: The liver, spleen, pancreas, adrenal and kidneys appear unremarkable. There is no evidence of diverticulitis. The rectum is distended with stool. Moderate amount of stool within the colon. Percutaneous tube within gastric body. Fragoso catheter within the bladder Diffuse edema within the subcutaneous tissues. Edema within the right gluteus muscle. No discrete abs cess seen. No significant hip joint effusion. No right hip cortical destruction or lucencies to suggest osteomyelitis. IMPRESSION: Diffuse edema within the subcutaneous tissues adjacent to the right hip consistent with a cellulitis Edema within the right gluteus muscle may indicate a myositis No radiographic evidence of osteomyelitis. If the patient can tolerate an MRI this would be recommend ed as it is more sensitive in detecting early osteomyelitis. Moderate stool throughout colon
[2021-06-25] MEDS ORDERED: Meropenem 1,000 MG in NA CHLORIDE 0.9% 100 ML IV SCH (17:00)
[2021-06-25] MEDS ORDERED: SODIUM CHLORIDE 1 GM TAB FT SCH (17:00)
[2021-06-25] MEDS: Ringers Lactate 1,000 ML IV SCH (17:57)
[2021-06-25] MEDS: Meropenem 1,000 MG in NA CHLORIDE 0.9% 100 ML IV SCH (17:57)
[2021-06-25] MEDS: ATORVASTATIN 40 MG TAB FT SCH (20:10)
[2021-06-25] MEDS: FAMOTIDINE 20 MG/2 ML VIAL IV SCH (20:10)
[2021-06-25] MEDS: TAMSULOSIN 0.4 MG SR CAP FT SCH (20:44)
[2021-06-26] MEDS: Meropenem 1,000 MG in NA CHLORIDE 0.9% 100 ML IV SCH ×3 (00:19→17:50)
[2021-06-26] MEDS: Ringers Lactate 1,000 ML IV SCH ×3 (05:23→23:03)
[2021-06-26] MEDS: JEVITY 1.2 CAL LIQUID 1,000 ML BOT FT SCH ×2 (05:26→09:47)
[2021-06-26 06:16] LABS: Absolute Lymphocytes (CBC) 1.6 K/uL (0.7-4.9); Lymphocytes % 10.5 % (15.3-44.8); MPV 8.3 fL (7.6-11.3); RBC Red Blood Cell Count 2.78 M/uL (4.33-5.43)
[2021-06-26 06:38] LABS: BUN Blood Urea Nitrogen 39 mg/dL (7-18); Bicarbonate 24 mmol/L (21-32); Glucose Level 108 mg/dL (74-106); Sodium Level 152 mmol/L (136-145)
[2021-06-26 06:40] LABS: Potassium 2.9 mmol/L (3.5-5.1)
[2021-06-26] MEDS ORDERED: POTASSIUM CL SA 10 MEQ TAB PO ONE (06:43)
[2021-06-26] MEDS ORDERED: DOCUSATE SODIUM 50 MG/5 ML FT SCH (09:00)
[2021-06-26] MEDS: MEDIHONEY 44 ML TOPICAL TUBE TOP SCH (09:00)
[2021-06-26] MEDS: DOXAZOSIN 2 MG TAB FT SCH (09:00)
[2021-06-26] MEDS: KCL 20 MEQ/100 mL IVPB 20 MEQ/100 ML BAG IV SCH ×2 (09:33→12:31)
[2021-06-26] MEDS: FAMOTIDINE 20 MG/2 ML VIAL IV SCH ×2 (09:33→22:22)
[2021-06-26] MEDS: ZINC SULFATE 220 MG CAP FT SCH (09:33)
[2021-06-26] MEDS: TAMSULOSIN 0.4 MG SR CAP FT SCH ×2 (09:33→22:21)
[2021-06-26] MEDS: FLUOXETINE 10 MG CAP FT SCH (09:39)
[2021-06-26] MEDS: ASCORBIC ACID 500 MG TABLET FT SCH (09:52)
[2021-06-26] MEDS: DOCUSATE NA 50 MG/5 ML UCUP FT SCH (09:55)
--- NOTE | 2021-06-26 10:22 | P.PN ---
Subjective Date of Service: 06/26/21 Chief Complaint: fever Subjective: Improving (Still mildly hypotensive) Physical Examination - Vital Signs Temperature: 96.9 F Blood Pressure: 93/55 Pulse: 96 Respirations: 14 Pulse Ox (%): 100 - Physical Exam General: In no apparent distress, Cooperative, Cachectic HEENT: Atraumatic, Normocephalic Neck: Supple Respiratory: Clear to auscultation bilaterally, Normal air movement Cardiovascular: Regular rate/rhythm, Normal S1 S2 Gastrointestinal: Soft and benign, Non-distended, Other (PEG tube) Musculoskeletal: Other (contracted) Neurological: Other (aphasic) - Studies Microbiology Data (last 24 hrs): 06/25/21 09:15 Blood - Blood Blood Culture Gram Stain - Final 06/25/21 09:00 Blood - Blood Blood Culture Gram Stain - Final 06/25/21 09:00 Blood - Blood Gram Stain - Final Assessment And Plan - Current Problems (Diagnosis) (1) Sepsis Current Visit: Yes Status: Acute (2) Aphasia Current Visit: No Status: Acute (3) Sacral decubitus ulcer, stage III Current Visit: No Status: Acute (4) BPH (benign prostatic hyperplasia) Current Visit: No Status: Chronic Qualifiers: (5) CVA (cerebral vascular accident) Current Visit: No Status: Chronic Qualifiers: (6) GERD (gastroesophageal reflux disease) Current Visit: No Status: Chronic Qualifiers: (7) Gastrostomy tube dependent Current Visit: No Status: Chronic (8) HLD (hyperlipidemia) Current Visit: No Status: Chronic Qualifiers: (9) HTN (hypertension) Current Visit: No Status: Chronic Qualifiers: (10) T2DM (type 2 diabetes mellitus) Current Visit: No Status: Chronic Qualifiers: Physician Review Additional Text: Assessment Patient is a 65 year old male with a PMH of CVA with residual aphasia and hemiparesis. He returns to the hospital after spiking a fever of 102 degrees. He was just recently hospitalized here for sepsis secondary to MSSA and pseudomonas UTI, and MSSA bacteremia. He was supposed to be discharged on cefazolin. [facility] the [facility] after he spiked a fever of 102 degrees. He also had another episode of high grade fever since his admission. UA+, CT A/P with possible cellulitis/myositis Sepsis Bacteremia Decubitus ulcer CVA with residual aphasia PEG status Hypernatremia PLAN: Source: UTI cannot rule out osteomyelitis of decubitus ulcers as he can't tolerate MRI due to contractures. Blood cx positive for gram positive cocci in pairs/clusters Repeat blood cx sent today Continue broad spectrum abx Resume tube feeds Free water replacement at 400 q 4 hours and D5 infusion Replace potassium Famotidine for DVT ppx Overall, he is improving 06/26/21 10:24 06/26/21 10:26
[2021-06-26] MEDS ORDERED: D5 0.45 NS 1,000 ML IV SCH (11:00)
[2021-06-26] MEDS: GLUCERNA 1.5 CAL 1,000 ML BOT FT SCH ×4 (11:43→21:00)
[2021-06-26] MEDS: ATORVASTATIN 40 MG TAB FT SCH (22:21)
[2021-06-26] MEDS ORDERED: ALBUTEROL 2.5 MG/3 ML NEB SOL NEB ONE (22:54)
[2021-06-27] MEDS: Meropenem 1,000 MG in NA CHLORIDE 0.9% 100 ML IV SCH ×2 (01:00→13:43)
[2021-06-27] MEDS: [UNRECOGNIZED DRUG - REMARK] PO SCH ×5 (07:00→23:00)
[2021-06-27] MEDS: Ringers Lactate 1,000 ML IV SCH ×3 (07:03→17:15)
[2021-06-27 07:21] LABS: Absolute Lymphocytes (CBC) 1.8 K/uL (0.7-4.9); Hematocrit 26.5 % (39.6-49.0); MPV 8.4 fL (7.6-11.3)
[2021-06-27 07:38] LABS: BUN Blood Urea Nitrogen 32 mg/dL (7-18); Bicarbonate 23 mmol/L (21-32); Glucose Level 122 mg/dL (74-106); Potassium 3.7 mmol/L (3.5-5.1); Sodium Level 147 mmol/L (136-145)
[2021-06-27 08:30] LABS: Anisocytosis 1+; Blood Morphology Comment NOTED (NOT SEEN); Platelet Estimate ADEQ; Polychromasia SLIGHT; White Blood Cell Scan OK (OK)
--- NOTE | 2021-06-27 08:41 | P.PN ---
Subjective Date of Service: 06/27/21 Chief Complaint: fever Subjective: No new changes (Patient is aphasic at baseline but can follow commands) Physical Examination - Vital Signs Temperature: 97.5 F Blood Pressure: 111/68 Pulse: 106 Respirations: 26 Pulse Ox (%): 97 - Physical Exam General: Cachectic, Other (lethargic) HEENT: Atraumatic, Normocephalic Respiratory: Normal air movement Cardiovascular: Regular rate/rhythm, Normal S1 S2 Gastrointestinal: Soft and benign, Non-distended, Other (PEG tube, Fragoso catheter) Musculoskeletal: Other (contracted, sarcopenia) Neurological: Normal affect, Abnormal speech - Studies Microbiology Data (last 24 hrs): 06/25/21 09:15 Blood - Blood Blood Culture Gram Stain - Final 06/25/21 09:15 Blood - Blood Gram Stain - Final 06/25/21 09:00 Blood - Blood Blood Culture Gram Stain - Final 06/25/21 09:00 Blood - Blood Gram Stain - Final Assessment And Plan - Current Problems (Diagnosis) (1) Sepsis Current Visit: Yes Status: Acute (2) Aphasia Current Visit: No Status: Acute (3) Sacral decubitus ulcer, stage III Current Visit: No Status: Acute (4) BPH (benign prostatic hyperplasia) Current Visit: No Status: Chronic Qualifiers: (5) CVA (cerebral vascular accident) Current Visit: No Status: Chronic Qualifiers: (6) GERD (gastroesophageal reflux disease) Current Visit: No Status: Chronic Qualifiers: (7) Gastrostomy tube dependent Current Visit: No Status: Chronic (8) HLD (hyperlipidemia) Current Visit: No Status: Chronic Qualifiers: (9) HTN (hypertension) Current Visit: No Status: Chronic Qualifiers: (10) T2DM (type 2 diabetes mellitus) Current Visit: No Status: Chronic Qualifiers: Physician Review Additional Text: Assessment Patient is a 65 year old male with a PMH of CVA with residual aphasia and hemiparesis. He returns to the hospital after spiking a fever of 102 degrees. He was just recently hospitalized here for sepsis secondary to MSSA and pseudomonas UTI, and MSSA bacteremia. He was supposed to be discharged on cefazolin. He now returns from the [facility] after he spiked a fever of 102 degrees. He also had another episode of high grade fever since his admission. UA+, CT A/P with possible cellulitis/myositis Sepsis Bacteremia Decubitus ulcer CVA with residual aphasia PEG status Hypernatremia PLAN: Source: Pseudomonas UTI isolated again WBC still elevated Currently on meropenem. I will add vancomycin given positive blood cx. He's also a high risk for MRSA coming from a NH He was seen by ID during his last visit. ID re-consulted today Cannot rule out osteomyelitis of decubitus ulcers as he can't tolerate MRI due to contracture. Follow up repeat blood cx Continue Free water replacement I will discontinue D5 1/2NS since resumed on tube feeds Famotidine for GI ppx, Lovenox for DVT ppx
[2021-06-27] MEDS: MEDIHONEY 44 ML TOPICAL TUBE TOP SCH (09:00)
[2021-06-27] MEDS: FAMOTIDINE 20 MG/2 ML VIAL IV SCH ×2 (09:57→21:48)
[2021-06-27] MEDS: DOXAZOSIN 2 MG TAB FT SCH (09:57)
[2021-06-27] MEDS: ASCORBIC ACID 500 MG TABLET FT SCH (09:58)
[2021-06-27] MEDS: TAMSULOSIN 0.4 MG SR CAP FT SCH ×2 (09:58→21:47)
[2021-06-27] MEDS: ZINC SULFATE 220 MG CAP FT SCH (09:58)
[2021-06-27] MEDS ORDERED: VANCOMYCIN 1.75 GM in NA CHLORIDE 0.9% 500 ML IVPB SCH (10:00)
[2021-06-27] MEDS: DOCUSATE NA 50 MG/5 ML UCUP FT SCH (10:29)
[2021-06-27] MEDS: FLUOXETINE 10 MG CAP FT SCH (10:29)
[2021-06-27] MEDS: GLUCERNA 1.5 CAL 1,000 ML BOT FT SCH ×5 (10:29→21:00)
[2021-06-27] MEDS: ATORVASTATIN 40 MG TAB FT SCH (21:47)
[2021-06-27] MEDS: VANCOMYCIN 1.25 GM in NA CHLORIDE 0.9% 250 ML IVPB SCH (21:48)
[2021-06-28] MEDS: Meropenem 1,000 MG in NA CHLORIDE 0.9% 100 ML IV SCH ×3 (00:16→16:34)
[2021-06-28] MEDS: [UNRECOGNIZED DRUG - REMARK] PO SCH ×6 (03:00→21:14)
[2021-06-28] MEDS: Ringers Lactate 1,000 ML IV SCH ×3 (05:00→15:03)
[2021-06-28 05:55] LABS: Absolute Lymphocytes (CBC) 2.1 K/uL (0.7-4.9); Hematocrit 21.2 % (39.6-49.0); Lymphocytes % 15.6 % (15.3-44.8); MPV 8.6 fL (7.6-11.3); RBC Red Blood Cell Count 2.29 M/uL (4.33-5.43)
[2021-06-28 06:16] LABS: BUN Blood Urea Nitrogen 21 mg/dL (7-18); Bicarbonate 25 mmol/L (21-32); Glucose Level 87 mg/dL (74-106); Potassium 3.6 mmol/L (3.5-5.1); Sodium Level 146 mmol/L (136-145)
[2021-06-28] MEDS ORDERED: Meropenem 1000 MG/VIAL IV ONE (08:34)
[2021-06-28] MEDS: MEDIHONEY 44 ML TOPICAL TUBE TOP SCH (09:00)
--- NOTE | 2021-06-28 09:41 | P.PN ---
Subjective Date of Service: 06/28/21 Chief Complaint: fever Subjective: Worsening (Bright red blood per rectum. Hb dropped to 6.8. He is getting a unit of pRBC) Physical Examination - Vital Signs Temperature: 97.0 F Blood Pressure: 115/56 Pulse: 101 Respirations: 22 Pulse Ox (%): 99 - Physical Exam General: In no apparent distress, Cooperative, Other (sleeping) HEENT: Atraumatic, Normocephalic Respiratory: Normal air movement Cardiovascular: Regular rate/rhythm, Normal S1 S2 Gastrointestinal: Other (PEG) Neurological: Normal affect, Other (aphasic) - Studies Microbiology Data (last 24 hrs): 06/25/21 09:15 Blood - Blood Aerobic Blood Culture - Final Staphylococcus Schleiferi 06/25/21 09:15 Blood - Blood Blood Culture Gram Stain - Final 06/25/21 09:15 Blood - Blood Anaerobic Blood Culture - Final Staphylococcus Schleiferi 06/25/21 09:15 Blood - Blood Gram Stain - Final 06/25/21 09:00 Blood - Blood Aerobic Blood Culture - Final Staphylococcus Schleiferi 06/25/21 09:00 Blood - Blood Blood Culture Gram Stain - Final 06/25/21 09:00 Blood - Blood Anaerobic Blood Culture - Final Staphylococcus Schleiferi 06/25/21 09:00 Blood - Blood Gram Stain - Final 06/25/21 09:15 Clean Catch Urine [place] Count - Final >100,000 CFU/ML. 06/25/21 09:15 Clean Catch Urine - Final Pseudomonas Aeruginosa Assessment And Plan - Current Problems (Diagnosis) (1) Sepsis Current Visit: Yes Status: Acute (2) Aphasia Current Visit: No Status: Acute (3) Sacral decubitus ulcer, stage III Current Visit: No Status: Acute (4) BPH (benign prostatic hyperplasia) Current Visit: No Status: Chronic Qualifiers: (5) CVA (cerebral vascular accident) Current Visit: No Status: Chronic Qualifiers: (6) GERD (gastroesophageal reflux disease) Current Visit: No Status: Chronic Qualifiers: (7) Gastrostomy tube dependent Current Visit: No Status: Chronic (8) HLD (hyperlipidemia) Current Visit: No Status: Chronic Qualifiers: (9) HTN (hypertension) Current Visit: No Status: Chronic Qualifiers: (10) T2DM (type 2 diabetes mellitus) Current Visit: No Status: Chronic Qualifiers: Physician Review Additional Text: Assessment Patient is a 65 year old male with a PMH of CVA with residual aphasia and hemiparesis. He returns to the hospital after spiking a fever of 102 degrees. He was just recently hospitalized here for sepsis secondary to MSSA and pseudomonas UTI, and MSSA bacteremia. He was supposed to be discharged on cefazolin. [facility] after he spiked a fever of 102 degrees. He also had another episode of high grade fever since his admission. UA+, CT A/P with possible cellulitis/myositis Sepsis UTI - Pseudomonas aeroginosa Bacteremia - Staphyloccous schleiferi Decubitus ulcer CVA with residual aphasia PEG status Hypernatremia PLAN: Source: Pseudomonas UTI isolated again during this stay, and bacteremia with Staphyloccous schleiferi Bacteremic on 2 consecutive days, 06/25 & 06/26 Repeat blood cx sent today Will need evaluation of infective endocarditis WBC trending down with vancomycin, day 2 today Continue meropenem for Pseudomonas UTI He was seen by ID during his last visit. ID re-consulted Cannot rule out osteomyelitis of decubitus ulcers as he can't tolerate MRI due to contracture. Continue Free water replacement Famotidine for GI ppx, Lovenox for DVT ppx
[2021-06-28] MEDS ORDERED: SODIUM CHLORIDE 0.9% 10ML INJ IV PRN (10:19)
[2021-06-28] MEDS ORDERED: NA CHLORIDE 0.9% 100 ML ONE (10:27)
[2021-06-28] MEDS: VANCOMYCIN 1.25 GM in NA CHLORIDE 0.9% 250 ML IVPB SCH ×2 (11:02→21:18)
[2021-06-28] MEDS: DOCUSATE NA 50 MG/5 ML UCUP FT SCH ×2 (11:02→14:38)
[2021-06-28] MEDS: FLUOXETINE 10 MG CAP FT SCH (11:02)
[2021-06-28] MEDS: GLUCERNA 1.5 CAL 1,000 ML BOT FT SCH ×5 (11:02→21:00)
[2021-06-28] MEDS: ASCORBIC ACID 500 MG TABLET FT SCH (11:03)
[2021-06-28] MEDS: DOXAZOSIN 2 MG TAB FT SCH (11:03)
[2021-06-28] MEDS: TAMSULOSIN 0.4 MG SR CAP FT SCH ×2 (11:03→21:13)
[2021-06-28] MEDS: ZINC SULFATE 220 MG CAP FT SCH (11:03)
[2021-06-28] MEDS: PANTOPRAZOLE 40 MG INJ IVP SCH ×2 (11:42→21:13)
--- NOTE | 2021-06-28 13:01 | P.PN ---
Subjective Date of Service: 06/28/21 Chief Complaint: fever Subjective: Improving Physical Examination - Vital Signs Temperature: 97.0 F Blood Pressure: 115/56 Pulse: 101 Respirations: 22 Pulse Ox (%): 99 - Physical Exam General: Alert, In no apparent distress, Cooperative Integumentary: Other (stable from yesterday, no changes) - Studies Microbiology Data (last 24 hrs): 06/25/21 09:00 Blood - Blood Aerobic Blood Culture - Final Staphylococcus Schleiferi 06/25/21 09:00 Blood - Blood Blood Culture Gram Stain - Final 06/25/21 09:00 Blood - Blood Anaerobic Blood Culture - Final Staphylococcus Schleiferi 06/25/21 09:00 Blood - Blood Gram Stain - Final 06/25/21 09:15 Blood - Blood Aerobic Blood Culture - Final Staphylococcus Schleiferi 06/25/21 09:15 Blood - Blood Blood Culture Gram Stain - Final 06/25/21 09:15 Blood - Blood Anaerobic Blood Culture - Final Staphylococcus Schleiferi 06/25/21 09:15 Blood - Blood Gram Stain - Final 06/25/21 09:15 Clean Catch Urine [place] Count - Final >100,000 CFU/ML. 06/25/21 09:15 Clean Catch Urine - Final Pseudomonas Aeruginosa Assessment And Plan - Current Problems (Diagnosis) (1) Cellulitis and abscess of buttock Current Visit: Yes Status: Acute - Plan - santyl dakins damp to dry to sacrum daily - duoderm to LEFT hip - silvadine to RIGHT hip area with dry gauze - continue antibiotics - continue medical management
--- NOTE | 2021-06-28 13:31 | CON ---
Date of Consultation: 06/27/2021 Brief History Of Present Illness: The patient is a 65-year-old male, known to me from previous multi ple admissions, who had presented before with gastrointestinal issues as well as a sacral decubitus u lcer as he has had a history of a stroke with right-sided hemiparesis and aphasia. He has returned w ith MSSA and Pseudomonas. His blood cultures had positivity. He was transferred to an LT[facility] where he was there for less than a week and ultimately brought back due to excessive fever of 102 degrees. A s such, he was worked up and found to have multiple issues including some cellulitis of his left hip and I was consulted to examine his sacrum to see if indeed additional debridement was required as he has been getting ongoing wound care. Past Medical History: Hyperlipidemia, hypertension, CVA, right-sided hemiparesis, diabetes, GERD, BP H, hemiplegia, dysphagia, weakness, aphasia. Past Surgical History: Includes a gastrostomy tube placement as well as debridement of a sacral decu bitus ulcer. Allergies: NO KNOWN DRUG ALLERGIES. Home Medications: Include Norvasc, vitamin C, Lipitor, Coreg, vitamin D3, Colace, Cardura, Pepcid, f luoxetine, Protonix, MiraLax, KCl, Flomax, zinc, Provigil, Glucerna, Medihoney, meropenem, sodium chl oride. Review of Systems: A 10-point review of systems unable to obtain. Social History: Unable to obtain as the patient is aphasic. Clinical Examination: Vital Signs: At the time of my examination; his temperature 97.0, his heart r ate was 101, respiratory rate 20, blood pressure 111/54, SpO2 99% on room air. General: He is awake, alert, but nonverbal. Psychiatric: He does not answer questions, but smiles and he does not appear to be in any distress. HEENT: Otherwise normocephalic. Sclerae anicteric. Mucous membranous are moist. Oropharynx clear. Neck: Supple without JVD. Chest: Normal to expansion and excursion. Cardiovascular: Regular rhythm. Irregular rate with mild tachycardia. Abdomen: Soft with PEG tube in place, functional. No evidence of infection. Skin: Focused examination of skin and back side; his sacral decubitus ulcer is clean with no obvious necrosis or infection. There is minimal fibrinous buildup of the sacrum. Focused examination of th e left pelvis/hip area shows some superficial skin necrosis, very minimal at the superficial layers w ith surrounding cellulitis. No drainable collections. His right hip had mild cellulitic changes. Laboratory Data: He had a laboratory exam, which revealed a white blood cell count of 18.3, hemoglob in is 8.3, hematocrit at 26.5, platelet count is 411, neutrophils 84%. Sodium 147, potassium 3.7, ch loride 118 and repeated, carbon dioxide 23, BUN 32, creatinine 0.5, glucose is 122. He had CT of the abdomen and pelvis on 06/25/2021, officially read as diffuse edema in the subcutaneous tissues adjac ent the right hip consistent with a cellulitis, edema within the right gluteus muscle may indicate my ositis. No radiographic evidence of osteomyelitis. With the patient's consent, MRI was recommended. Moderate stool in the colon. He had a chest x-ray performed as well, which officially read as no a cute abnormalities displayed. Assessment And Plan: This is a 65-year-old male, who comes in with cellulitis and a healing wound of the sacrum with multiple medical issues as described above. 1.Continue IV fluid hydration. 2.Antibiotic coverage. 3.Continue medical management. 4.Continue daily dressing changes of the sacrum with Santyl, apply daily with Dakin 0.25% strength d amp to dry on the sacral wound, pressure reduction strategies to remove pressure on this area of the sacrum as well as on both hips with q.2-hour rotation and air mattress requested. 5.Continue triple antibiotic with DuoDerm on the left hip. 6.Silvadene on the right hip, apply with a gauze and a wrap daily, to be changed. I have explained risks, benefits, and alternatives of the above stated plan. The patien t agrees to proceed as indicated. JENNIFER/COMFORTL Voice ID: [id number] Report ID: [id number]
[2021-06-28] MEDS ORDERED: NA CHLORIDE 0.9% 250 ML ONE (14:29)
[2021-06-28 20:47] LABS: Hematocrit 26.3 % (39.6-49.0)
[2021-06-28] MEDS: SILVER SULFADIAZINE 1% 25 GM TOP SCH (21:00)
[2021-06-28] MEDS: ATORVASTATIN 40 MG TAB FT SCH (21:13)
[2021-06-29] MEDS: [UNRECOGNIZED DRUG - REMARK] PO SCH ×4 (03:00→14:21)
[2021-06-29] MEDS: Meropenem 1,000 MG in NA CHLORIDE 0.9% 100 ML IV SCH ×3 (05:10→22:13)
[2021-06-29] MEDS: Ringers Lactate 1,000 ML IV SCH ×4 (05:11→22:15)
[2021-06-29 07:00] LABS: Hematocrit 25.2 % (39.6-49.0)
[2021-06-29] MEDS: GLUCERNA 1.5 CAL 1,000 ML BOT FT SCH ×5 (08:00→21:00)
--- NOTE | 2021-06-29 08:31 | EKG ---
Test Date: 2021-06-25 Test Time: 08:47:53 Marketing Operations Intern: LIZ MEASUREMENT RESULTS: Intervals: Rate: 104 CO: 136 QRSD: 74 QT: 344 QTc: 452 [place]: P: 96 CO: 136 QRS: -35 T: 62 INTERPRETIVE STATEMENTS: Sinus tachycardia Left axis deviation Anterior infarct, age undetermined Abnormal ECG Compared to ECG 05/22/2021 15:59:37 Myocardial infarct finding now present Electronically Signed On 06-29-21 08:23:46 CDT by Ru Brewer
[2021-06-29] MEDS: FLUOXETINE 10 MG CAP FT SCH (09:24)
[2021-06-29] MEDS: SILVER SULFADIAZINE 1% 25 GM TOP SCH ×2 (09:25→21:00)
[2021-06-29] MEDS: ZINC SULFATE 220 MG CAP FT SCH (09:26)
[2021-06-29] MEDS: DOXAZOSIN 2 MG TAB FT SCH (09:26)
[2021-06-29] MEDS: TAMSULOSIN 0.4 MG SR CAP FT SCH ×2 (09:28→22:14)
[2021-06-29] MEDS: MEDIHONEY 44 ML TOPICAL TUBE TOP SCH (09:28)
[2021-06-29] MEDS: ASCORBIC ACID 500 MG TABLET FT SCH (09:29)
[2021-06-29] MEDS: PANTOPRAZOLE 40 MG INJ IVP SCH ×2 (09:29→22:13)
--- NOTE | 2021-06-29 16:49 | P.CNS ---
Date of Consult: 06/29/21 Chief Complaint: fever History of Present Illness: The patient is a 65-year-old male with a past medical history of CVA with hemiplegia, aphasia, dysphagia, status post G-tube, hypertension, diabetes type 2, hyperlipidemia, BPH, and GERD who was brought into the ED from his nursing h ome secondary to sepsis. Patient nonverbal at bedside, as such all history obtained via chart review. This is patient's third hospitalization this year. Hospital stays have been complicated by decubitus wound infections, bacteremia, and UTIs. Patient's first hospital stay at this facility was from 05/11 through 05/21 where he was diagnosed with MSSA bacteremia and treated with IV cefazolin. He was also noted to have a UTI growing MSSA and Pseudomonas and was treated with meropenem. His second hospital stay was from 05/22 through 06/01 where he had a debridement of his right buttocks/sacrococcygeal on unstageable decubitus wound on 05/27. Blood cultures on this admission are growing staph scheleiferi. Blood cultures still positive after 72 hours despite being on broad-spectrum IV antibiotics. Patient has a several decubitus wounds including: Sacral unstageable wound, left hip unstageable wound, right hip wound, left heel stage II wound, and right heel stage I wound. Allergies No Known Allergies Allergy (Unverified 05/11/21 09:07) Home Medications: RX: Amlodipine [Norvasc*] 1 tab FT DAILY 05/17/21 RX: Atorvastatin Calcium [Lipitor] 1 tab FT BEDTIME 05/17/21 RX: Carvedilol [Coreg] 1 tab FT BID 05/17/21 RX: Polyethylene Glycol 3350 [Miralax] 1 packet FT DAILY PRN 05/17/21 RX: Potassium Chloride 15 ml FT BID 05/17/21 RX: Tamsulosin HCl [Flomax] 1 cap FT BID 05/17/21 RX: modafiniL [Provigil*] 1 tab FT DAILY 05/17/21 Lactose-Free Food [Jevity] 237 ml PO Q4H 06/25/21 Metformin ER [Glucophage ER] 500 mg PO DAILY 06/25/21 - Past Medical/Surgical History Diabetic: Yes -: CVA -: HTN -: T2DM -: HLD -: FTT -: GERD -: BPH -: hemiplegia, dysphagia, weakness, aphasia -: Gastrostomy tube - Social History Smoking Status: Unknown if ever smoked Review of Systems 10-point ROS is otherwise unremarkable Physical Examination Temp Pulse Resp BP Pulse Ox 96.9 F 95 H 23 H 106/62 98 06/29/21 12:00 06/29/21 12:00 06/29/21 12:00 06/29/21 12:00 06/29/21 12:00 General: Cachectic, Confused HEENT: Atraumatic, Normocephalic Neck: Supple, 2+ carotid pulse no bruit Respiratory: Clear to auscultation bilaterally, Normal air movement Cardiovascular: Normal pulses, Regular rate/rhythm Gastrointestinal: Other (PEG tube) Musculoskeletal: Other (Multiple decubitus wounds) Conclusions/Impression: Antibiotics Vancomycin: 06/27current Meropenem: 06/28current Assessment/plan Bacteremia -Blood cultures obtained on 06/25 grew staph schleiferi. Source of infection unclear. Repeat blood cultures obtained on 06/26 and 06/28 still positive despite being on broad-spectrum IV antibiotics -Patient will need transesophageal echocardiogram. Recommend transfer to [facility] -Recommend continuing broad-spectrum IV antibiotics UTI Urine culture growing Pseudomonas -CT abdomen pelvis negative for any obstructive uropathy/stone formation Recommend continuing IV meropenem Patient has chronic Fragoso catheter, recommend urology consultation. Patient may benefit from suprapubic catheter Decubitus wound to: sacrum, left hip, and right hip Wound care per surgical team Patient had a sacral wound debridement performed on 05/27. Patient cleared by surgery, no surgical intervention at this time -reposition patient in bed every two hours during waking hours. Low air loss mattress placed. Left heel stage II wound -Recommend applying pleurogel and covering with foam -Offload heels with heel booties Right heel stage I ulcer Offload with heel booties Plan of care discussed with Dr. Manuel Thank you for consultation
[2021-06-29] MEDS ORDERED: VANCOMYCIN 1.25 GM in NA CHLORIDE 0.9% 250 ML IVPB SCH (21:00)
[2021-06-29] MEDS: ATORVASTATIN 40 MG TAB FT SCH (22:14)
[2021-06-29] MEDS ORDERED: Ringers Lactate 1,000 ML IV ONE (22:15)
[2021-06-30] MEDS: Meropenem 1,000 MG in NA CHLORIDE 0.9% 100 ML IV SCH ×3 (06:00→21:59)
[2021-06-30] MEDS: COLLAGENASE 30 GM OINTMENT TOP SCH (06:22)
[2021-06-30] MEDS: MEDIHONEY 44 ML TOPICAL TUBE TOP SCH (06:23)
[2021-06-30 08:50] LABS: Absolute Lymphocytes (CBC) 1.2 K/uL (0.7-4.9); Hematocrit 27.1 % (39.6-49.0); Lymphocytes % 9.2 % (15.3-44.8); RBC Red Blood Cell Count 3.03 M/uL (4.33-5.43)
[2021-06-30] MEDS ORDERED: VANCOMYCIN 1.25 GM in NA CHLORIDE 0.9% 250 ML IVPB SCH ×2 (09:00→21:00)
[2021-06-30] MEDS: ASCORBIC ACID 500 MG TABLET FT SCH (09:00)
[2021-06-30 09:04] LABS: ALT/SGPT 56 U/L (12-78); AST/SGOT 40 U/L (15-37); Albumin 1.5 g/dL (3.4-5.0); Alkaline Phosphatase 122 U/L (45-117); BUN Blood Urea Nitrogen 13 mg/dL (7-18); Bicarbonate 27 mmol/L (21-32); Bilirubin Total 0.5 mg/dL (0.2-1.0); Glucose Level 101 mg/dL (74-106); Magnesium 1.8 mg/dL (1.8-2.4); NT PRO-BNP 614 pg/mL (<125); Potassium 3.4 mmol/L (3.5-5.1); Protein, Total 6.1 g/dL (6.4-8.2); Sodium Level 138 mmol/L (136-145)
[2021-06-30] MEDS: Ringers Lactate 1,000 ML IV SCH ×2 (09:58→16:20)
[2021-06-30] MEDS: DOCUSATE NA 50 MG/5 ML UCUP FT SCH (10:21)
[2021-06-30] MEDS: SILVER SULFADIAZINE 1% 25 GM TOP SCH ×2 (10:21→22:00)
[2021-06-30] MEDS: PANTOPRAZOLE 40 MG INJ IVP SCH ×2 (10:22→22:01)
[2021-06-30] MEDS: DOXAZOSIN 2 MG TAB FT SCH (10:22)
[2021-06-30] MEDS: FLUOXETINE 10 MG CAP FT SCH (10:22)
[2021-06-30] MEDS: GLUCERNA 1.5 CAL 1,000 ML BOT FT SCH ×5 (10:23→21:59)
[2021-06-30] MEDS: ZINC SULFATE 220 MG CAP FT SCH (10:23)
[2021-06-30] MEDS: TAMSULOSIN 0.4 MG SR CAP FT SCH ×2 (10:23→21:58)
--- NOTE | 2021-06-30 11:36 | P.PN ---
Subjective Date of Service: 06/30/21 Chief Complaint: fever Patient seen and examined at bedside, additional repeat blood cultures pending. Review of Systems 10-point ROS is otherwise unremarkable Physical Examination - Vital Signs Temperature: 97.6 F Blood Pressure: 114/68 Pulse: 108 Respirations: 16 Pulse Ox (%): 96 - Studies Microbiology 06/25/21 09:00 Blood - Blood Aerobic Blood Culture - Final Staphylococcus Schleiferi 06/25/21 09:00 Blood - Blood Blood Culture Gram Stain - Final 06/25/21 09:00 Blood - Blood Anaerobic Blood Culture - Final Staphylococcus Schleiferi 06/25/21 09:00 Blood - Blood Gram Stain - Final 06/25/21 09:15 Blood - Blood Aerobic Blood Culture - Final Staphylococcus Schleiferi 06/25/21 09:15 Blood - Blood Blood Culture Gram Stain - Final 06/25/21 09:15 Blood - Blood Anaerobic Blood Culture - Final Staphylococcus Schleiferi 06/25/21 09:15 Blood - Blood Gram Stain - Final 06/25/21 09:15 Clean Catch Urine [place] Count - Final >100,000 CFU/ML. 06/25/21 09:15 Clean Catch Urine - Final Pseudomonas Aeruginosa Assessment And Plan - Plan Physical Exam: General: Cachectic, Confused. HEENT: Atraumatic, Normocephalic Neck: Supple, 2+ carotid pulse no bruit Respiratory: Clear to auscultation bilaterally, Normal air movement Cardiovascular: Normal pulses, Regular rate/rhythm Gastrointestinal: Other (PEG tube) Musculoskeletal: Other (Multiple decubitus wounds) Conclusions/Impression: Antibiotics Vancomycin: 06/27current Meropenem: 06/28current Assessment/plan Bacteremia -Blood cultures obtained on 06/25 grew staph schleiferi. Source of infection unclear. Repeat blood cultures obtained on 06/26 and 06/28 still positive despite being on broad-spectrum IV antibiotics. Additional repeat on 06/30 pending -Patient will need transesophageal echocardiogram. Recommend transfer to [facility] -Recommend continuing broad-spectrum IV antibiotics UTI Urine culture growing Pseudomonas -CT abdomen pelvis negative for any obstructive uropathy/stone formation Recommend continuing IV meropenem Patient has chronic Fragoso catheter, recommend urology consultation. Patient may benefit from suprapubic catheter Decubitus wound to: sacrum, left hip, and right hip Wound care per surgical team Patient had a sacral wound debridement performed on 05/27. -Recommend repeat sacral wound debridement -reposition patient in bed every two hours during waking hours. Low air loss mattress placed. -Patient placed on zinc and vitamin C Left heel stage II wound -Recommend applying pleurogel and covering with foam -Offload heels with heel booties Right heel stage I ulcer Offload with heel booties Plan of care discussed with Dr. Manuel Thank you for consultation
--- NOTE | 2021-06-30 19:54 | P.PN ---
Subjective Date of Service: 06/29/21 Chief Complaint: fever Subjective: Improving (patient remains confused, no acute events) Physical Examination - Vital Signs Temperature: 97.1 F Blood Pressure: 125/72 Pulse: 113 Respirations: 14 Pulse Ox (%): 98 - Physical Exam General: Alert, In no apparent distress, Cooperative, Confused Integumentary: Other (hip and sacral wounds are improving, packed, LEFT hip was not dressed as patient had pulled off dressings) Assessment And Plan - Current Problems (Diagnosis) (1) Cellulitis and abscess of buttock Current Visit: Yes Status: Acute - Plan - santyl dakins damp to dry to sacrum daily - duoderm to LEFT hip - silvadine to RIGHT hip area with dry gauze - continue antibiotics - continue medical management
--- NOTE | 2021-06-30 19:55 | P.PN ---
Subjective Date of Service: 06/30/21 Chief Complaint: fever Subjective: Improving Physical Examination - Vital Signs Temperature: 97.1 F Blood Pressure: 125/72 Pulse: 113 Respirations: 14 Pulse Ox (%): 98 - Physical Exam General: Alert, In no apparent distress, Cooperative, Confused Integumentary: Other (hip and sacral wounds are improving, packed, LEFT hip was not dressed as patient had pulled off dressings) Assessment And Plan - Current Problems (Diagnosis) (1) Cellulitis and abscess of buttock Current Visit: Yes Status: Acute - Plan - santyl dakins damp to dry to sacrum daily - duoderm to LEFT hip - silvadine to RIGHT hip area with dry gauze - continue antibiotics - continue medical management - pressure reduction, air mattress
[2021-06-30] MEDS: ATORVASTATIN 40 MG TAB FT SCH (21:59)
[2021-07-01] MEDS: Ringers Lactate 1,000 ML IV SCH ×2 (00:16→09:35)
[2021-07-01 02:14] LABS: Absolute Lymphocytes (CBC) 1.5 K/uL (0.7-4.9); Hematocrit 24.5 % (39.6-49.0); Lymphocytes % 14.2 % (15.3-44.8); MPV 7.8 fL (7.6-11.3); RBC Red Blood Cell Count 2.73 M/uL (4.33-5.43)
[2021-07-01 02:26] LABS: ALT/SGPT 46 U/L (12-78); AST/SGOT 29 U/L (15-37); Albumin 1.4 g/dL (3.4-5.0); Alkaline Phosphatase 106 U/L (45-117); BUN Blood Urea Nitrogen 17 mg/dL (7-18); Bicarbonate 26 mmol/L (21-32); Bilirubin Total 0.3 mg/dL (0.2-1.0); Glucose Level 109 mg/dL (74-106); Potassium 3.7 mmol/L (3.5-5.1); Protein, Total 5.4 g/dL (6.4-8.2); Sodium Level 138 mmol/L (136-145)
[2021-07-01] MEDS: Meropenem 1,000 MG in NA CHLORIDE 0.9% 100 ML IV SCH (05:55)
[2021-07-01] MEDS: DOXAZOSIN 2 MG TAB FT SCH (09:00)
[2021-07-01] MEDS ORDERED: ALBUMIN HUMAN 25% 100 ML IV ONE (09:00)
--- NOTE | 2021-07-01 09:17 | P.PN ---
Date of Service: 06/29/21 Subjective Poor prognosis; MDR UTI; AMS Physical Examination - Vital Signs reviewed - Physical Exam General: In no apparent distress, Cooperative, Other (sleeping); dementia HEENT: Atraumatic, Normocephalic Respiratory: Normal air movement Cardiovascular: Regular rate/rhythm, Normal S1 S2 Gastrointestinal: Other (PEG) Neurological: Normal affect, Other (aphasic) Assessment And Plan - Current Problems (Diagnosis) (1) Sepsis Current Visit: Yes Status: Acute (2) Aphasia Current Visit: No Status: Acute (3) Sacral decubitus ulcer, stage III Current Visit: No Status: Acute (4) BPH (benign prostatic hyperplasia) Current Visit: No Status: Chronic Qualifiers: (5) CVA (cerebral vascular accident) Current Visit: No Status: Chronic Qualifiers: (6) GERD (gastroesophageal reflux disease) Current Visit: No Status: Chronic Qualifiers: (7) Gastrostomy tube dependent Current Visit: No Status: Chronic (8) HLD (hyperlipidemia) Current Visit: No Status: Chronic Qualifiers: (9) HTN (hypertension) Current Visit: No Status: Chronic Qualifiers: (10) T2DM (type 2 diabetes mellitus) Current Visit: No Status: Chronic Qualifiers: Physician Review Additional Text: Assessment: 1. Sepsis 2. UTI - Pseudomonas aeroginosa 3. Bacteremia - Staphyloccous schleiferi 4. Decubitus ulcer 5. CVA with residual aphasia 6. PEG status 7. Hypernatremia PLAN: -Source: Pseudomonas UTI isolated again during this stay, and bacteremia with Staphyloccous schleiferi; sensitivities pending -Bacteremic on 2 consecutive days, 06/25 & 06/26 -Repeat blood cx sent today -Will need evaluation of infective endocarditis; echo pending -WBC trending down with vancomycin, day 2 today -Continue meropenem for Pseudomonas UTI; awaiting sensitivities -He was seen by ID during his last visit. ID re-consulted -Cannot rule out osteomyelitis of decubitus ulcers as he can't tolerate MRI due to contracture. -Continue Free water replacement -Famotidine for GI ppx, Lovenox for DVT ppx
[2021-07-01] MEDS: COLLAGENASE 30 GM OINTMENT TOP SCH (09:18)
[2021-07-01] MEDS: MEDIHONEY 44 ML TOPICAL TUBE TOP SCH (09:18)
[2021-07-01] MEDS: PANTOPRAZOLE 40 MG INJ IVP SCH ×2 (09:19→21:07)
[2021-07-01] MEDS: SILVER SULFADIAZINE 1% 25 GM TOP SCH ×2 (09:19→21:08)
[2021-07-01] MEDS: ASCORBIC ACID 500 MG TABLET FT SCH (09:19)
[2021-07-01] MEDS: DOCUSATE NA 50 MG/5 ML UCUP FT SCH (09:20)
--- NOTE | 2021-07-01 09:20 | P.PN ---
Date of Service: 07/01/21 Subjective Patient is doing better. Scheduled for debridement of wound to the hip. Afterwards, patient should be stable for discharge on oral antibiotics Physical Examination - Vital Signs reviewed - Physical Exam General: In no apparent distress, Cooperative, Other (sleeping); dementia HEENT: Atraumatic, Normocephalic Respiratory: Normal air movement Cardiovascular: Regular rate/rhythm, Normal S1 S2 Gastrointestinal: Other (PEG) Neurological: Normal affect, Other (aphasic) Assessment And Plan - Current Problems (Diagnosis) (1) Sepsis Current Visit: Yes Status: Acute (2) Aphasia Current Visit: No Status: Acute (3) Sacral decubitus ulcer, stage III Current Visit: No Status: Acute (4) BPH (benign prostatic hyperplasia) Current Visit: No Status: Chronic Qualifiers: (5) CVA (cerebral vascular accident) Current Visit: No Status: Chronic Qualifiers: (6) GERD (gastroesophageal reflux disease) Current Visit: No Status: Chronic Qualifiers: (7) Gastrostomy tube dependent Current Visit: No Status: Chronic (8) HLD (hyperlipidemia) Current Visit: No Status: Chronic Qualifiers: (9) HTN (hypertension) Current Visit: No Status: Chronic Qualifiers: (10) T2DM (type 2 diabetes mellitus) Current Visit: No Status: Chronic Qualifiers: Physician Review Additional Text: Assessment: 1. Sepsis 2. UTI - Pseudomonas aeroginosa 3. Bacteremia - Staphyloccous schleiferi 4. Decubitus ulcer 5. CVA with residual aphasia 6. PEG status 7. Hypernatremia PLAN: -Source: Pseudomonas UTI isolated again during this stay, and bacteremia with Staphyloccous schleiferi; sensitivities pending -Repeat blood cx sent today; no growth; sed rate -Will need evaluation of infective endocarditis; echo pending -monitoring WBC -Continue meropenem for Pseudomonas UTI at this time; awaiting sensitivities -ID consulted -Continue with wound care -Continue Free water replacement; monior sodium -Famotidine for GI ppx, Lovenox for DVT ppx
--- NOTE | 2021-07-01 09:20 | P.PN ---
Date of Service: 06/30/21 Subjective Patient continues to do poorly; tube feeds continuing; can review sensitivities and address antibiotics; Physical Examination - Vital Signs reviewed - Physical Exam General: In no apparent distress, Cooperative, Other (sleeping); dementia HEENT: Atraumatic, Normocephalic Respiratory: Normal air movement Cardiovascular: Regular rate/rhythm, Normal S1 S2 Gastrointestinal: Other (PEG) Neurological: Normal affect, Other (aphasic) Assessment And Plan - Current Problems (Diagnosis) (1) Sepsis Current Visit: Yes Status: Acute (2) Aphasia Current Visit: No Status: Acute (3) Sacral decubitus ulcer, stage III Current Visit: No Status: Acute (4) BPH (benign prostatic hyperplasia) Current Visit: No Status: Chronic Qualifiers: (5) CVA (cerebral vascular accident) Current Visit: No Status: Chronic Qualifiers: (6) GERD (gastroesophageal reflux disease) Current Visit: No Status: Chronic Qualifiers: (7) Gastrostomy tube dependent Current Visit: No Status: Chronic (8) HLD (hyperlipidemia) Current Visit: No Status: Chronic Qualifiers: (9) HTN (hypertension) Current Visit: No Status: Chronic Qualifiers: (10) T2DM (type 2 diabetes mellitus) Current Visit: No Status: Chronic Qualifiers: Physician Review Additional Text: Assessment: 1. Sepsis 2. UTI - Pseudomonas aeroginosa 3. Bacteremia - Staphyloccous schleiferi 4. Decubitus ulcer 5. CVA with residual aphasia 6. PEG status 7. Hypernatremia PLAN: -Source: Pseudomonas UTI isolated again during this stay, and bacteremia with Staphyloccous schleiferi; sensitivities pending -Repeat blood cx sent today; no growth; sed rate -Will need evaluation of infective endocarditis; echo pending -monitoring WBC -Continue meropenem for Pseudomonas UTI at this time; awaiting sensitivities -ID consulted -Continue with wound care -Continue Free water replacement; monior sodium -Famotidine for GI ppx, Lovenox for DVT ppx
[2021-07-01] MEDS: GLUCERNA 1.5 CAL 1,000 ML BOT FT SCH ×5 (09:21→21:08)
[2021-07-01] MEDS: TAMSULOSIN 0.4 MG SR CAP FT SCH ×2 (09:21→21:08)
[2021-07-01] MEDS: ZINC SULFATE 220 MG CAP FT SCH (09:22)
[2021-07-01] MEDS: FLUOXETINE 10 MG CAP FT SCH (09:24)
[2021-07-01] MEDS: SODIUM HYPOCHLORITE 0.25% 473 ML TOP SCH (09:29)
--- NOTE | 2021-07-01 11:39 | P.PN ---
Subjective Date of Service: 07/01/21 Chief Complaint: fever Patient seen and examined at bedside, more alert at bedside today. Review of Systems 10-point ROS is otherwise unremarkable Physical Examination - Vital Signs Temperature: 97.2 F Blood Pressure: 114/71 Pulse: 116 Respirations: 16 Pulse Ox (%): 96 - Studies Laboratory Last Values WBC 17.00 K/uL (4.3-10.9) H 06/25/21 09:15 RBC 2.90 M/uL (4.33-5.43) L 06/25/21 09:15 Hgb 8.6 g/dL (13.6-17.9) L 06/25/21 09:15 Hct 26.8 % (39.6-49.0) L 06/25/21 09:15 MCV 92.4 fL (80-100) 06/25/21 09:15 MCH 29.8 pg (27.0-35.0) 06/25/21 09:15 MCHC 32.2 g/dL (32.0-36.0) 06/25/21 09:15 RDW 17.7 % (12.1-15.2) H 06/25/21 09:15 Plt Count 402 K/uL (152-406) 06/25/21 09:15 MPV 8.6 fL (7.6-11.3) 06/25/21 09:15 Neutrophils % 82.6 % (41.7-73.7) H 06/25/21 09:15 Lymphocytes % 9.2 % (15.3-44.8) L 06/25/21 09:15 Monocytes % 7.5 % (3.3-12.3) 06/25/21 09:15 Eosinophils % 0.3 % (0-4.4) 06/25/21 09:15 Basophils % 0.4 % (0-1.3) 06/25/21 09:15 Absolute Neutrophils 14.0 K/uL (1.8-8.0) H 06/25/21 09:15 Absolute Lymphocytes 1.6 K/uL (0.7-4.9) 06/25/21 09:15 Absolute Monocytes 1.3 K/uL (0.1-1.3) 06/25/21 09:15 Absolute Eosinophils 0.1 K/uL (0-0.5) 06/25/21 09:15 Absolute Basophils 0.1 K/uL (0-0.5) 06/25/21 09:15 PT 14.7 SECONDS (9.5-12.5) H 06/25/21 09:15 INR 1.33 06/25/21 09:15 APTT 30.7 SECONDS (24.3-36.9) 06/25/21 09:15 Sodium 147 mmol/L (136-145) H 06/25/21 09:15 Potassium 3.3 mmol/L (3.5-5.1) L 06/25/21 09:15 Chloride 115 mmol/L (98-107) H 06/25/21 09:15 Carbon Dioxide 24 mmol/L (21-32) 06/25/21 09:15 BUN 69 mg/dL (7-18) H 06/25/21 09:15 Creatinine 0.91 mg/dL (0.55-1.3) 06/25/21 09:15 Estimated GFR 84 mL/min (=/>90) L 06/25/21 09:15 Glucose 258 mg/dL (74-106) H 06/25/21 09:15 Lactic Acid 2.0 mmol/L (0.4-2.0) 06/25/21 09:15 Calcium 9.3 mg/dL (8.5-10.1) 06/25/21 09:15 Total Bilirubin 0.2 mg/dL (0.2-1.0) 06/25/21 09:15 AST 45 U/L (15-37) H 06/25/21 09:15 ALT 38 U/L (12-78) 06/25/21 09:15 Alkaline Phosphatase 100 U/L (45-117) 06/25/21 09:15 Serum Total Protein 6.3 g/dL (6.4-8.2) L 06/25/21 09:15 Albumin 1.7 g/dL (3.4-5.0) L 06/25/21 09:15 Globulin 4.6 g/dL (2.3-3.5) H 06/25/21 09:15 Albumin/Globulin Ratio 0.4 (1.1-1.8) L 06/25/21 09:15 Urine pH 5.5 (5.0-7.0) 06/25/21 09:20 Ur Specific [place] 1.025 (1.005-1.030) 06/25/21 09:20 Glucose (UA)(Auto) Negative (Negative) 06/25/21 09:20 Urine Ketones Negative (Negative) 06/25/21 09:20 Urine Blood Trace-intact (Negative) H 06/25/21 09:20 Urine Nitrite Negative (Negative) 06/25/21 09:20 Ur Leukocyte Esterase 2+ (Negative) H 06/25/21 09:20 Urine RBC <5 /HPF (NONE SEEN) 06/25/21 09:15 Urine WBC >50 /HPF (<5) H 06/25/21 09:15 Ur Squamous Epith Cells <5 /HPF (NONE SEEN) 06/25/21 09:15 Calcium Oxalate Crystal Present (NONE SEEN) 06/25/21 09:15 Urine Bacteria >50 /HPF (NONE SEEN) H 06/25/21 09:15 Urine Yeast Many (NONE SEEN) 06/25/21 09:15 Ur Yeast w Hyphae Present 06/25/21 09:15 Urine Yeast (Budding) Present (NONE SEEN) H 06/25/21 09:15 Urine Culture Reflexed Reflexed 06/25/21 09:15 Urine Total Protein Negative (Negative) 06/25/21 09:20 Influenza Type A RNA Negative (NEGATIVE) 06/25/21 09:15 Influenza Type B RNA Negative (NEGATIVE) 06/25/21 09:15 SARS-CoV-2 RNA (RT-PCR) Negative (NEGATIVE) 06/25/21 09:15 Assessment And Plan - Plan Physical Exam: General: Cachectic, Confused. HEENT: Atraumatic, Normocephalic Neck: Supple, 2+ carotid pulse no bruit Respiratory: Clear to auscultation bilaterally, Normal air movement Cardiovascular: Normal pulses, Regular rate/rhythm Gastrointestinal: Other (PEG tube) Musculoskeletal: Other (Multiple decubitus wounds) Conclusions/Impression: Antibiotics Vancomycin: 06/27current Meropenem: 06/28current Assessment/plan Bacteremia -Blood cultures obtained on 06/25 and 06/26 grew staph schleiferi. Source of infection unclear. Additional blood cultures obtained on 06/28 grew staph epidermidis. Repeat blood cultures obtained on 06/30 are pending. -Patient will need transesophageal echocardiogram. Recommend transfer to [facility] -Recommend continuing broad-spectrum IV antibiotics UTI Urine culture growing Pseudomonas -CT abdomen pelvis negative for any obstructive uropathy/stone formation Recommend continuing IV meropenem Patient has chronic Fragoso catheter, recommend urology consultation. Patient may benefit from suprapubic catheter Decubitus wound to: sacrum, left hip, and right hip Wound care per surgical team Patient had a sacral wound debridement performed on 05/27. -Recommend repeat sacral wound debridement -reposition patient in bed every two hours during waking hours. Low air loss mattress placed. -Patient placed on zinc and vitamin C Left heel stage II wound -Recommend applying pleurogel and covering with foam -Offload heels with heel booties Right heel stage I ulcer Offload with heel booties Plan of care discussed with Dr. Manuel Thank you for consultation
[2021-07-01] MEDS: CIPROFLOXACIN 400mg IV 400 MG/200 ML BAG IV SCH (21:07)
[2021-07-01] MEDS: ATORVASTATIN 40 MG TAB FT SCH (21:08)
[2021-07-02] MEDS: Ringers Lactate 1,000 ML IV SCH ×5 (02:27→13:30)
[2021-07-02] MEDS: GLUCERNA 1.5 CAL 1,000 ML BOT FT SCH ×5 (08:00→21:00)
[2021-07-02] MEDS: TAMSULOSIN 0.4 MG SR CAP FT SCH ×2 (09:00→21:55)
[2021-07-02] MEDS: ASCORBIC ACID 500 MG TABLET FT SCH (09:00)
[2021-07-02] MEDS: FLUOXETINE 10 MG CAP FT SCH (09:00)
[2021-07-02] MEDS: ZINC SULFATE 220 MG CAP FT SCH (09:00)
[2021-07-02] MEDS: DOCUSATE NA 50 MG/5 ML UCUP FT SCH (09:00)
[2021-07-02] MEDS: CIPROFLOXACIN 400mg IV 400 MG/200 ML BAG IV SCH ×2 (09:56→21:56)
[2021-07-02] MEDS: SODIUM HYPOCHLORITE 0.25% 473 ML TOP SCH ×2 (09:57→14:15)
[2021-07-02] MEDS: PANTOPRAZOLE 40 MG INJ IVP SCH ×2 (09:57→21:55)
[2021-07-02] MEDS: COLLAGENASE 30 GM OINTMENT TOP SCH (09:57)
[2021-07-02] MEDS: DOXAZOSIN 2 MG TAB FT SCH (09:57)
[2021-07-02] MEDS: SILVER SULFADIAZINE 1% 25 GM TOP SCH ×2 (09:58→21:00)
[2021-07-02] MEDS ORDERED: NS 0.9% VIAL 20 ML ONE (12:13)
[2021-07-02] MEDS ORDERED: MIDAZOLAM HCL 2 MG/2 ML INJ ONE ×2 (12:13→14:54)
[2021-07-02] MEDS ORDERED: LIDOCAINE 2% MPF 5 ML VIAL ONE (12:13)
[2021-07-02] MEDS ORDERED: Phenylephrine HCl 10 MG/ML 1 ML VIAL ONE (12:13)
[2021-07-02] MEDS ORDERED: FENTANYL CITR 100 MCG/2 ML ONE (12:13)
[2021-07-02] MEDS ORDERED: propofoL 200 MG/20 ML VIAL IV ONE (12:13)
[2021-07-02] MEDS ORDERED: ONDANSETRON 4 MG/2 ML VIAL ONE (12:13)
[2021-07-02] MEDS: BUPIVACAINE 0.25% PF 10 ML VIAL ONE ×2 (12:40→14:07)
[2021-07-02] MEDS ORDERED: Ringers Lactate 1,000 ML IV ONE (14:06)
[2021-07-02] MEDS ORDERED: SODIUM HYPOCHLORITE 0.25% 473 ML ONE (14:12)
--- NOTE | 2021-07-02 14:23 | P.OP ---
Preoperative diagnosis: LEFT hip pressure ulcer Postoperative diagnosis: LEFT hip pressure ulcer Primary procedure: Debridement of LEFT hip pressure ulcer Anesthesia: GETA + Local Estimated blood loss: <5cc Specimen: skin Findings: 8.5cm x 9cm elipse of affected skin Complications: None Transferred to: Recovery Room Condition: Good
[2021-07-02] MEDS: ATORVASTATIN 40 MG TAB FT SCH (21:55)
--- NOTE | 2021-07-02 23:47 | OP ---
Date of Procedure: 07/02/2021 Surgeon: Santiago Cooper MD, History Of Present Illness: The patient is a 65-year-old male known to me from previous debridement of a sacral ulcer. He had a pressure ulcer at that point. He presented to the hospital with a left hip pressure ulcer and right hip pressure ulcer. His right hip ulcer improved throughout his convale scence to the hospital; however, his left foot continues to show signs of necrosis and skin breakdown . As such, there was concern for infection at this area that did not seem amenable to nonoperative m anagement. As such, I deemed him appropriate for operative intervention to debride this pressure ulc er of the left hip area Preoperative Diagnosis: Left hip pressure ulcer. Postoperative Diagnosis: Left hip pressure ulcer. Procedure Performed: Debridement of left hip pressure ulcer. Anesthesia: General endotracheal plus local with 0.25% Marcaine. Estimated Blood Loss: Less than 5 mL. Specimen: Skin. Findings: 8.5 cm x 9 cm ellipse of affected skin. Complications: None. Disposition: The patient was transferred to the recovery room in good condition. Procedure In Detail: After informed was obtained, the patient was brought to the operating room, pre pped and draped in the usual sterile fashion. After adequate anesthesia was achieved, I made an kaykay ptical incision around the area as described above with a 15 blade down to subcutaneous tissues. I osman jenkins used electrocautery to dissect down to the dermal plane and the subcutaneous fat. Some of the shankar bcutaneous fat appeared ischemic as well and this was debrided using electrocautery as well as the el lipse of skin as described above. This was sent off for pathologic examination. There was no obviou s abscess or infected material here. This seemed to be predominantly pressure affect of the tissues. It abutted up to the muscle, fascia of the left hip, but did not seem to involve the muscle directl y, although pressure effect was noted throughout the tissues. There was no ischemic changes requirin g surgery on the deeper planes. As such, the area was copiously irrigated and suctioned out until dr y. A sterile dressing was then placed over top with Dakin solution and a sterile dressing applied. The patient tolerated the procedure well without evidence of complications and transferred to PACU in good condition. All counts were correct at the end of the case. TK/MODL Voice ID: [id number] Report ID: [id number]
[2021-07-03] MEDS: Ringers Lactate 1,000 ML IV SCH ×3 (02:42→17:10)
[2021-07-03] MEDS ORDERED: NA CHLORIDE 0.9% 500 ML IV SCH (03:00)
[2021-07-03] MEDS: DOXAZOSIN 2 MG TAB FT SCH (09:52)
[2021-07-03] MEDS: ASCORBIC ACID 500 MG TABLET FT SCH (09:52)
[2021-07-03] MEDS: ZINC SULFATE 220 MG CAP FT SCH (09:52)
[2021-07-03] MEDS: TAMSULOSIN 0.4 MG SR CAP FT SCH ×2 (09:53→22:11)
[2021-07-03] MEDS: PANTOPRAZOLE 40 MG INJ IVP SCH ×2 (09:56→22:11)
[2021-07-03] MEDS: CIPROFLOXACIN 400mg IV 400 MG/200 ML BAG IV SCH ×2 (09:56→22:11)
[2021-07-03] MEDS: GLUCERNA 1.5 CAL 1,000 ML BOT FT SCH ×5 (09:57→21:00)
[2021-07-03] MEDS: FLUOXETINE 10 MG CAP FT SCH (12:07)
[2021-07-03] MEDS: DOCUSATE NA 50 MG/5 ML UCUP FT SCH (12:08)
[2021-07-03] MEDS: COLLAGENASE 30 GM OINTMENT TOP SCH (12:08)
[2021-07-03] MEDS: SILVER SULFADIAZINE 1% 25 GM TOP SCH ×2 (12:09→22:12)
--- NOTE | 2021-07-03 14:42 | P.PN ---
Subjective Date of Service: 07/03/21 Chief Complaint: fever Patient seen and examined at bedside, was taken to the OR yesterday for debridement of his left hip pressure ulcer. Tolerated surgery well. No new labs since 07/01. Labs ordered today. Review of Systems 10-point ROS is otherwise unremarkable Physical Examination - Vital Signs Temperature: 97.0 F Blood Pressure: 105/58 Pulse: 120 Respirations: 16 Pulse Ox (%): 96 Assessment And Plan - Plan Physical Exam: General: Cachectic, Confused. HEENT: Atraumatic, Normocephalic Neck: Supple, 2+ carotid pulse no bruit Respiratory: Clear to auscultation bilaterally, Normal air movement Cardiovascular: Normal pulses, Regular rate/rhythm Gastrointestinal: Other (PEG tube) Musculoskeletal: Other (Multiple decubitus wounds) Conclusions/Impression: Antibiotics Ciprofloxacin: 07/01current Vancomycin: Meropenem: Assessment/plan Bacteremia -Blood cultures obtained on 06/25 and 06/26 grew staph schleiferi. Source of infection unclear. Additional blood cultures obtained on 06/28 grew staph epidermidis. Repeat blood cultures obtained on 06/30 showed no growth -Patient will need transesophageal echocardiogram. Recommend transfer to [facility] -Antibiotics with recurrent positive blood culture reports. UTI Urine culture growing Pseudomonas -CT abdomen pelvis negative for any obstructive uropathy/stone formation -IV meropenem escalated to ciprofloxacin. Patient has chronic Fragoso catheter, recommend urology consultation. Patient may benefit from suprapubic catheter Decubitus wound to: sacrum, left hip, and right hip Wound care per surgical team Patient had a sacral wound debridement performed on 05/27. -Underwent left hip debridement on 07/02. Tolerated surgery well. -Recommend repeat sacral wound debridement -reposition patient in bed every two hours during waking hours. Low air loss mattress placed. -Patient placed on zinc and vitamin C Left heel stage II wound -Recommend applying pleurogel and covering with foam -Offload heels with heel booties Right heel stage I ulcer Offload with heel booties Plan of care discussed with Dr. Manuel Thank you for consultation
[2021-07-03 15:45] LABS: BUN Blood Urea Nitrogen 14 mg/dL (7-18); Bicarbonate 26 mmol/L (21-32); Glucose Level 114 mg/dL (74-106); Sodium Level 137 mmol/L (136-145)
[2021-07-03 16:10] LABS: Absolute Lymphocytes (CBC) 1.4 K/uL (0.7-4.9); Hematocrit 27.1 % (39.6-49.0); Lymphocytes % 15.7 % (15.3-44.8); MPV 7.2 fL (7.6-11.3); RBC Red Blood Cell Count 2.98 M/uL (4.33-5.43)
[2021-07-03] MEDS: ATORVASTATIN 40 MG TAB FT SCH (22:11)
[2021-07-04] MEDS ORDERED: carvediloL 25 MG TAB FT ONE (01:09)
[2021-07-04] MEDS ORDERED: Ringers Lactate 500 ML IV ONE (01:10)
[2021-07-04] MEDS: Ringers Lactate 1,000 ML IV SCH (01:29)
[2021-07-04 06:37] VITALS: O2SAT 98
[2021-07-04] MEDS: PANTOPRAZOLE 40 MG INJ IVP SCH ×2 (08:54→21:32)
[2021-07-04] MEDS: ZINC SULFATE 220 MG CAP FT SCH (08:54)
[2021-07-04] MEDS: ASCORBIC ACID 500 MG TABLET FT SCH (08:54)
[2021-07-04] MEDS: TAMSULOSIN 0.4 MG SR CAP FT SCH ×2 (08:54→21:32)
[2021-07-04] MEDS: COLLAGENASE 30 GM OINTMENT TOP SCH (08:55)
[2021-07-04] MEDS: GLUCERNA 1.5 CAL 1,000 ML BOT FT SCH ×5 (08:55→21:00)
[2021-07-04] MEDS: SILVER SULFADIAZINE 1% 25 GM TOP SCH ×2 (08:55→21:32)
[2021-07-04] MEDS: SODIUM HYPOCHLORITE 0.25% 473 ML TOP SCH (08:56)
[2021-07-04] MEDS: CIPROFLOXACIN 400mg IV 400 MG/200 ML BAG IV SCH ×2 (08:57→21:32)
[2021-07-04] MEDS: DOXAZOSIN 2 MG TAB FT SCH (08:58)
[2021-07-04] MEDS: FLUOXETINE 10 MG CAP FT SCH (09:00)
[2021-07-04] MEDS: DOCUSATE NA 50 MG/5 ML UCUP FT SCH (09:00)
[2021-07-04] MEDS: ATORVASTATIN 40 MG TAB FT SCH (21:32)
[2021-07-05] MEDS: Ringers Lactate 1,000 ML IV SCH ×2 (04:59→18:30)
[2021-07-05] MEDS: GLUCERNA 1.5 CAL 1,000 ML BOT FT SCH ×5 (08:54→20:33)
[2021-07-05] MEDS: CIPROFLOXACIN 400mg IV 400 MG/200 ML BAG IV SCH ×2 (08:54→20:29)
[2021-07-05] MEDS: DOXAZOSIN 2 MG TAB FT SCH (08:55)
[2021-07-05] MEDS: ZINC SULFATE 220 MG CAP FT SCH (08:56)
[2021-07-05] MEDS: TAMSULOSIN 0.4 MG SR CAP FT SCH ×2 (08:56→20:28)
[2021-07-05] MEDS: FLUOXETINE 10 MG CAP FT SCH (08:56)
[2021-07-05] MEDS: ASCORBIC ACID 500 MG TABLET FT SCH (08:56)
[2021-07-05] MEDS: COLLAGENASE 30 GM OINTMENT TOP SCH (08:57)
[2021-07-05] MEDS: PANTOPRAZOLE 40 MG INJ IVP SCH ×2 (08:57→20:29)
[2021-07-05] MEDS: SODIUM HYPOCHLORITE 0.25% 473 ML TOP SCH (08:57)
[2021-07-05] MEDS: SILVER SULFADIAZINE 1% 25 GM TOP SCH ×2 (08:57→21:00)
[2021-07-05] MEDS: DOCUSATE NA 50 MG/5 ML UCUP FT SCH (09:00)
--- NOTE | 2021-07-05 12:10 | P.PN ---
Subjective Date of Service: 07/04/21 Chief Complaint: fever Subjective: Improving Physical Examination - Vital Signs Temperature: 97.3 F Blood Pressure: 118/65 Pulse: 103 Respirations: 12 Pulse Ox (%): 90 - Physical Exam General: Alert, In no apparent distress, Confused Integumentary: Other (LEFT hip wound dressed well, sacral wound packed well, RIGHT hip wound is dressed well) Assessment And Plan - Current Problems (Diagnosis) (1) Cellulitis and abscess of buttock Current Visit: Yes Status: Acute - Plan - santyl dakins damp to dry to sacrum daily - order WVAC to LEFT hip, continue dakins damp to dry until WVAC applied - medhoney to RIGHT hip area with dry gauze - continue antibiotics - continue medical management - pressure reduction, air mattress
--- NOTE | 2021-07-05 12:10 | P.PN ---
Subjective Date of Service: 07/03/21 Chief Complaint: fever Subjective: Improving (no acute events) Physical Examination - Vital Signs Temperature: 97.3 F Blood Pressure: 118/65 Pulse: 103 Respirations: 12 Pulse Ox (%): 90 - Physical Exam General: Alert, In no apparent distress, Confused Integumentary: Other (LEFT hip wound dressed well, sacral wound packed well, RIGHT hip wound is dressed well) Assessment And Plan - Current Problems (Diagnosis) (1) Cellulitis and abscess of buttock Current Visit: Yes Status: Acute - Plan - santyl dakins damp to dry to sacrum daily - order WVAC to LEFT hip, continue dakins damp to dry until WVAC applied - medhoney to RIGHT hip area with dry gauze - continue antibiotics - continue medical management - pressure reduction, air mattress
[2021-07-05] MEDS: ATORVASTATIN 40 MG TAB FT SCH (20:29)
--- NOTE | 2021-07-06 02:44 | P.PN ---
Date of Service: 07/05/21 Subjective Patient had wound debrided on Tuesday. Attempting to place wound VAC on the wounds. This will be ordered and unlikely to get here to the weekend. Plan to discharge home once wound VAC is placed. Physical Examination - Vital Signs reviewed - Physical Exam General: In no apparent distress, Cooperative, Other (sleeping); dementia HEENT: Atraumatic, Normocephalic Respiratory: Normal air movement Cardiovascular: Regular rate/rhythm, Normal S1 S2 Gastrointestinal: Other (PEG) Neurological: Normal affect, Other (aphasic) Assessment And Plan - Current Problems (Diagnosis) (1) Sepsis Current Visit: Yes Status: Acute (2) Aphasia Current Visit: No Status: Acute (3) Sacral decubitus ulcer, stage III Current Visit: No Status: Acute (4) BPH (benign prostatic hyperplasia) Current Visit: No Status: Chronic Qualifiers: (5) CVA (cerebral vascular accident) Current Visit: No Status: Chronic Qualifiers: (6) GERD (gastroesophageal reflux disease) Current Visit: No Status: Chronic Qualifiers: (7) Gastrostomy tube dependent Current Visit: No Status: Chronic (8) HLD (hyperlipidemia) Current Visit: No Status: Chronic Qualifiers: (9) HTN (hypertension) Current Visit: No Status: Chronic Qualifiers: (10) T2DM (type 2 diabetes mellitus) Current Visit: No Status: Chronic Qualifiers: Physician Review Additional Text: Assessment: 1. Sepsis 2. UTI - Pseudomonas aeroginosa 3. Bacteremia - Staphyloccous schleiferi 4. Decubitus ulcer 5. CVA with residual aphasia 6. PEG status 7. Hypernatremia PLAN: -Source: Pseudomonas UTI isolated again during this stay, and bacteremia with Staphyloccous schleiferi; sensitivities pending -Repeat blood cultures negative -Echo reviewed -monitoring WBC -Continue meropenem for Pseudomonas UTI -ID consulted -Continue with wound care -Continue free water replacement; monior sodium -Famotidine for GI ppx, Lovenox for DVT ppx
--- NOTE | 2021-07-06 02:46 | P.PN ---
Date of Service: 07/04/21 Subjective Patient continues to improve. Patient clinical symptoms are stable. Physical Examination - Vital Signs reviewed - Physical Exam General: In no apparent distress, Cooperative, Other (sleeping); dementia HEENT: Atraumatic, Normocephalic Respiratory: Normal air movement Cardiovascular: Regular rate/rhythm, Normal S1 S2 Gastrointestinal: Other (PEG) Neurological: Normal affect, Other (aphasic) Assessment And Plan - Current Problems (Diagnosis) (1) Sepsis Current Visit: Yes Status: Acute (2) Aphasia Current Visit: No Status: Acute (3) Sacral decubitus ulcer, stage III Current Visit: No Status: Acute (4) BPH (benign prostatic hyperplasia) Current Visit: No Status: Chronic Qualifiers: (5) CVA (cerebral vascular accident) Current Visit: No Status: Chronic Qualifiers: (6) GERD (gastroesophageal reflux disease) Current Visit: No Status: Chronic Qualifiers: (7) Gastrostomy tube dependent Current Visit: No Status: Chronic (8) HLD (hyperlipidemia) Current Visit: No Status: Chronic Qualifiers: (9) HTN (hypertension) Current Visit: No Status: Chronic Qualifiers: (10) T2DM (type 2 diabetes mellitus) Current Visit: No Status: Chronic Qualifiers: Physician Review Additional Text: Assessment: 1. Sepsis 2. UTI - Pseudomonas aeroginosa 3. Bacteremia - Staphyloccous schleiferi 4. Decubitus ulcer 5. CVA with residual aphasia 6. PEG status 7. Hypernatremia PLAN: -Source: Pseudomonas UTI isolated again during this stay, and bacteremia with Staphyloccous schleiferi; sensitivities reviewed -Repeat blood cultures negative -Echo reviewed -monitoring labs closely -Continue meropenem for Pseudomonas UTI -ID consultation appreciated -Continue with wound care -Continue free water replacement; monior sodium -Famotidine for GI ppx, Lovenox for DVT ppx
--- NOTE | 2021-07-06 02:48 | P.PN ---
Date of Service: 07/03/21 Subjective Patient clinical symptoms are improving. Patient denies any new complaints. Wound vacuum has been placed Physical Examination - Vital Signs reviewed - Physical Exam General: In no apparent distress, Cooperative, Other (sleeping); dementia HEENT: WNL Respiratory: Normal air movement Cardiovascular: Regular rate/rhythm, Normal S1 S2 Gastrointestinal: Other (PEG) Neurological: Normal affect, Other (aphasic) Assessment And Plan - Current Problems (Diagnosis) (1) Sepsis Current Visit: Yes Status: Acute (2) Aphasia Current Visit: No Status: Acute (3) Sacral decubitus ulcer, stage III Current Visit: No Status: Acute (4) BPH (benign prostatic hyperplasia) Current Visit: No Status: Chronic Qualifiers: (5) CVA (cerebral vascular accident) Current Visit: No Status: Chronic Qualifiers: (6) GERD (gastroesophageal reflux disease) Current Visit: No Status: Chronic Qualifiers: (7) Gastrostomy tube dependent Current Visit: No Status: Chronic (8) HLD (hyperlipidemia) Current Visit: No Status: Chronic Qualifiers: (9) HTN (hypertension) Current Visit: No Status: Chronic Qualifiers: (10) T2DM (type 2 diabetes mellitus) Current Visit: No Status: Chronic Qualifiers: Physician Review Additional Text: Assessment: 1. Sepsis 2. UTI - Pseudomonas aeroginosa 3. Bacteremia - Staphyloccous schleiferi 4. Decubitus ulcer 5. CVA with residual aphasia 6. PEG status 7. Hypernatremia PLAN: -Source: Pseudomonas UTI isolated again during this stay, and bacteremia with Staphyloccous schleiferi; sensitivities reviewed -Repeat blood cultures negative -Echo reviewed -monitoring labs closely -Continue meropenem for Pseudomonas UTI -ID consultation appreciated -Continue with wound care -Continue free water replacement; monior sodium -Famotidine for GI ppx, Lovenox for DVT ppx
--- NOTE | 2021-07-06 02:50 | P.PN ---
Date of Service: 07/02/21 Subjective Patient is doing better. Scheduled for debridement of wound to the hip today. Patient will need to get wound vacuum placed. Family wanting to go to a rehab. Afterwards, patient should be stable for discharge on oral antibiotics Physical Examination - Vital Signs reviewed - Physical Exam General: In no apparent distress, Cooperative, Other (sleeping); patient wakes up and answers questions with a nod HEENT: Atraumatic, Normocephalic Respiratory: Normal air movement Cardiovascular: Regular rate/rhythm, Normal S1 S2 Gastrointestinal: Other (PEG) Neurological: Normal affect, Other (aphasic) Assessment And Plan - Current Problems (Diagnosis) (1) Sepsis Current Visit: Yes Status: Acute (2) Aphasia Current Visit: No Status: Acute (3) Sacral decubitus ulcer, stage III Current Visit: No Status: Acute (4) BPH (benign prostatic hyperplasia) Current Visit: No Status: Chronic Qualifiers: (5) CVA (cerebral vascular accident) Current Visit: No Status: Chronic Qualifiers: (6) GERD (gastroesophageal reflux disease) Current Visit: No Status: Chronic Qualifiers: (7) Gastrostomy tube dependent Current Visit: No Status: Chronic (8) HLD (hyperlipidemia) Current Visit: No Status: Chronic Qualifiers: (9) HTN (hypertension) Current Visit: No Status: Chronic Qualifiers: (10) T2DM (type 2 diabetes mellitus) Current Visit: No Status: Chronic Qualifiers: Physician Review Additional Text: Assessment: 1. Sepsis 2. UTI - Pseudomonas aeroginosa 3. Bacteremia - Staphyloccous schleiferi 4. Decubitus ulcer 5. CVA with residual aphasia 6. PEG status 7. Hypernatremia PLAN: -Source: Pseudomonas UTI isolated again during this stay, and bacteremia with Staphyloccous schleiferi; sensitivities pending -Repeat blood cx sent today; no growth; sed rate -Will need evaluation of infective endocarditis; echo reviewed -Continue meropenem for Pseudomonas UTI at this time; awaiting sensitivities -ID consulted -Continue with wound care -Continue Free water replacement; monior sodium -Famotidine for GI ppx, Lovenox for DVT ppx
[2021-07-06 04:10] LABS: Absolute Lymphocytes (CBC) 1.7 K/uL (0.7-4.9); Hematocrit 25.1 % (39.6-49.0); Lymphocytes % 13.2 % (15.3-44.8); MPV 6.9 fL (7.6-11.3)
[2021-07-06 04:21] LABS: ALT/SGPT 23 U/L (12-78); AST/SGOT 19 U/L (15-37); Albumin 1.7 g/dL (3.4-5.0); Alkaline Phosphatase 106 U/L (45-117); BUN Blood Urea Nitrogen 14 mg/dL (7-18); Bicarbonate 26 mmol/L (21-32); Bilirubin Total 0.3 mg/dL (0.2-1.0); Glucose Level 102 mg/dL (74-106); Potassium 3.8 mmol/L (3.5-5.1); Protein, Total 5.9 g/dL (6.4-8.2); Sodium Level 138 mmol/L (136-145)
[2021-07-06] MEDS: METOPROLOL TAR 25 MG TAB PO SCH ×2 (05:35→18:36)
[2021-07-06] MEDS: DOXAZOSIN 2 MG TAB FT SCH (09:25)
[2021-07-06] MEDS: FLUOXETINE 10 MG CAP FT SCH (09:25)
[2021-07-06] MEDS: ASCORBIC ACID 500 MG TABLET FT SCH (09:26)
[2021-07-06] MEDS: ZINC SULFATE 220 MG CAP FT SCH (09:26)
[2021-07-06] MEDS: TAMSULOSIN 0.4 MG SR CAP FT SCH (09:26)
[2021-07-06] MEDS: CIPROFLOXACIN 400mg IV 400 MG/200 ML BAG IV SCH (09:27)
[2021-07-06] MEDS: PANTOPRAZOLE 40 MG INJ IVP SCH (09:27)
[2021-07-06] MEDS: DOCUSATE NA 50 MG/5 ML UCUP FT SCH (09:28)
[2021-07-06] MEDS: COLLAGENASE 30 GM OINTMENT TOP SCH (09:28)
[2021-07-06] MEDS: SILVER SULFADIAZINE 1% 25 GM TOP SCH (09:29)
[2021-07-06] MEDS: GLUCERNA 1.5 CAL 1,000 ML BOT FT SCH ×4 (09:29→18:36)
[2021-07-06] MEDS: SODIUM HYPOCHLORITE 0.25% 473 ML TOP SCH (09:29)
--- NOTE | 2021-07-06 12:20 | P.DS ---
Admission Date: 06/25/21 Discharge Date: 07/06/21 Disposition: ROUTINE DISCHARGE Discharge Condition: FAIR Reason for Admission: fever Consultations: General surgery Wound care Procedures: Wound debridements. Brief History of Present Illness: Six 5-year-old male patient with medical history significant for CVA with residual neurologic deficit, history of decubitus ulcers, was evaluated for episode of fever and found to be septic with wound infection. He has sacral decubitus ulcers which got infected so he was admitted for inpatient care and empiric antibiotic therapy. He had previously had MSSA and Pseudomonas infection diagnosed in the past for which she had appropriate therapy. He was admitted for inpatient care. Hospital Course: Over the course of his hospital stay he had empiric antibiotic administered had cultures taken and he had wound care and surgeon consultation placed. Surgery evaluated patient and debrided patient's wound and it was deemed to be septic secondary to infected sacral decubitus wound. He was stabilized on appropriate therapy and after surgeon gave approval for discharge home he is discharged today for placement of wound VAC on outpatient basis. He will follow up with surgeon to call cover such for proper wound care post hospital discharge and he also will complete antibiotic therapy for his septic wound. On examination: General condition fair HEENT: Normocephalic, atraumatic. Cardiovascular: Regular rate and rhythm, S1, S2. Chest: Good air entry noted bilaterally. Musculoskeletal: Sacral decubitus ulcer noted sacral area. Vital Signs/Physical Exam: Temp Pulse Resp BP Pulse Ox 98 F 99 H 18 111/56 L 94 07/06/21 08:00 07/06/21 08:00 07/06/21 08:00 07/06/21 08:00 07/06/21 08:00 Laboratory Data at Discharge: WBC 13.2 K/uL (4.3-10.9) H D 07/06/21 03:30 Hgb 8.3 g/dL (13.6-17.9) L 07/06/21 03:30 Hct 25.1 % (39.6-49.0) L 07/06/21 03:30 Plt Count 449 K/uL (152-406) H 07/06/21 03:30 PT 14.7 SECONDS (9.5-12.5) H 06/25/21 09:15 INR 1.33 06/25/21 09:15 APTT 30.7 SECONDS (24.3-36.9) 06/25/21 09:15 Sodium 138 mmol/L (136-145) 07/06/21 03:36 Potassium 3.8 mmol/L (3.5-5.1) 07/06/21 03:36 BUN 14 mg/dL (7-18) 07/06/21 03:36 Creatinine 0.46 mg/dL (0.55-1.3) L 07/06/21 03:36 Glucose 102 mg/dL (74-106) 07/06/21 03:36 Magnesium 1.8 mg/dL (1.8-2.4) 06/30/21 08:30 Total Bilirubin 0.3 mg/dL (0.2-1.0) 07/06/21 03:36 AST 19 U/L (15-37) 07/06/21 03:36 ALT 23 U/L (12-78) 07/06/21 03:36 Alkaline Phosphatase 106 U/L (45-117) 07/06/21 03:36 Home Medications: Amlodipine [Norvasc*] 1 tab FT DAILY 05/17/21 Atorvastatin Calcium [Lipitor] 1 tab FT BEDTIME 05/17/21 Carvedilol [Coreg] 1 tab FT BID 05/17/21 Polyethylene Glycol 3350 [Miralax] 1 packet FT DAILY PRN 05/17/21 Potassium Chloride 15 ml FT BID 05/17/21 Tamsulosin HCl [Flomax] 1 cap FT BID 05/17/21 modafiniL [Provigil*] 1 tab FT DAILY 05/17/21 Lactose-Free Food [Jevity] 237 ml PO Q4H 06/25/21 Metformin ER [Glucophage ER] 500 mg PO DAILY 06/25/21 Followup: OOT,OOT [Primary Care Provider] -
--- NOTE | 2021-07-06 12:22 | P.PN ---
Subjective Date of Service: 07/06/21 Chief Complaint: fever Patient seen and examined at bedside, 06/28 growing staph epi resistant to ciprofloxacin. Emend discontinuing ciprofloxacin and restarting IV vancomycin. Review of Systems 10-point ROS is otherwise unremarkable Physical Examination - Vital Signs Temperature: 98 F Blood Pressure: 111/56 Pulse: 99 Respirations: 18 Pulse Ox (%): 94 - Studies Laboratory Last Values WBC 17.00 K/uL (4.3-10.9) H 06/25/21 09:15 RBC 2.90 M/uL (4.33-5.43) L 06/25/21 09:15 Hgb 8.6 g/dL (13.6-17.9) L 06/25/21 09:15 Hct 26.8 % (39.6-49.0) L 06/25/21 09:15 MCV 92.4 fL (80-100) 06/25/21 09:15 MCH 29.8 pg (27.0-35.0) 06/25/21 09:15 MCHC 32.2 g/dL (32.0-36.0) 06/25/21 09:15 RDW 17.7 % (12.1-15.2) H 06/25/21 09:15 Plt Count 402 K/uL (152-406) 06/25/21 09:15 MPV 8.6 fL (7.6-11.3) 06/25/21 09:15 Neutrophils % 82.6 % (41.7-73.7) H 06/25/21 09:15 Lymphocytes % 9.2 % (15.3-44.8) L 06/25/21 09:15 Monocytes % 7.5 % (3.3-12.3) 06/25/21 09:15 Eosinophils % 0.3 % (0-4.4) 06/25/21 09:15 Basophils % 0.4 % (0-1.3) 06/25/21 09:15 Absolute Neutrophils 14.0 K/uL (1.8-8.0) H 06/25/21 09:15 Absolute Lymphocytes 1.6 K/uL (0.7-4.9) 06/25/21 09:15 Absolute Monocytes 1.3 K/uL (0.1-1.3) 06/25/21 09:15 Absolute Eosinophils 0.1 K/uL (0-0.5) 06/25/21 09:15 Absolute Basophils 0.1 K/uL (0-0.5) 06/25/21 09:15 PT 14.7 SECONDS (9.5-12.5) H 06/25/21 09:15 INR 1.33 06/25/21 09:15 APTT 30.7 SECONDS (24.3-36.9) 06/25/21 09:15 Sodium 147 mmol/L (136-145) H 06/25/21 09:15 Potassium 3.3 mmol/L (3.5-5.1) L 06/25/21 09:15 Chloride 115 mmol/L (98-107) H 06/25/21 09:15 Carbon Dioxide 24 mmol/L (21-32) 06/25/21 09:15 BUN 69 mg/dL (7-18) H 06/25/21 09:15 Creatinine 0.91 mg/dL (0.55-1.3) 06/25/21 09:15 Estimated GFR 84 mL/min (=/>90) L 06/25/21 09:15 Glucose 258 mg/dL (74-106) H 06/25/21 09:15 Lactic Acid 2.0 mmol/L (0.4-2.0) 06/25/21 09:15 Calcium 9.3 mg/dL (8.5-10.1) 06/25/21 09:15 Total Bilirubin 0.2 mg/dL (0.2-1.0) 06/25/21 09:15 AST 45 U/L (15-37) H 06/25/21 09:15 ALT 38 U/L (12-78) 06/25/21 09:15 Alkaline Phosphatase 100 U/L (45-117) 06/25/21 09:15 Serum Total Protein 6.3 g/dL (6.4-8.2) L 06/25/21 09:15 Albumin 1.7 g/dL (3.4-5.0) L 06/25/21 09:15 Globulin 4.6 g/dL (2.3-3.5) H 06/25/21 09:15 Albumin/Globulin Ratio 0.4 (1.1-1.8) L 06/25/21 09:15 Urine pH 5.5 (5.0-7.0) 06/25/21 09:20 Ur Specific Luana 1.025 (1.005-1.030) 06/25/21 09:20 Glucose (UA)(Auto) Negative (Negative) 06/25/21 09:20 Urine Ketones Negative (Negative) 06/25/21 09:20 Urine Blood Trace-intact (Negative) H 06/25/21 09:20 Urine Nitrite Negative (Negative) 06/25/21 09:20 Ur Leukocyte Esterase 2+ (Negative) H 06/25/21 09:20 Urine RBC <5 /HPF (NONE SEEN) 06/25/21 09:15 Urine WBC >50 /HPF (<5) H 06/25/21 09:15 Ur Squamous Epith Cells <5 /HPF (NONE SEEN) 06/25/21 09:15 Calcium Oxalate Crystal Present (NONE SEEN) 06/25/21 09:15 Urine Bacteria >50 /HPF (NONE SEEN) H 06/25/21 09:15 Urine Yeast Many (NONE SEEN) 06/25/21 09:15 Ur Yeast w Hyphae Present 06/25/21 09:15 Urine Yeast (Budding) Present (NONE SEEN) H 06/25/21 09:15 Urine Culture Reflexed Reflexed 06/25/21 09:15 Urine Total Protein Negative (Negative) 06/25/21 09:20 Influenza Type A RNA Negative (NEGATIVE) 06/25/21 09:15 Influenza Type B RNA Negative (NEGATIVE) 06/25/21 09:15 SARS-CoV-2 RNA (RT-PCR) Negative (NEGATIVE) 06/25/21 09:15 Assessment And Plan - Plan Physical Exam: General: Cachectic, Confused. HEENT: Atraumatic, Normocephalic Neck: Supple, 2+ carotid pulse no bruit Respiratory: Clear to auscultation bilaterally, Normal air movement Cardiovascular: Normal pulses, Regular rate/rhythm Gastrointestinal: Other (PEG tube) Musculoskeletal: Other (Multiple decubitus wounds) Conclusions/Impression: Antibiotics Ciprofloxacin: 07/01current Vancomycin: Meropenem: Assessment/plan Bacteremia -Blood cultures obtained on 06/25 and 06/26 grew staph schleiferi. Source of infection unclear. Additional blood cultures obtained on 3/20 grew staph epidermidis, resistant to ciprofloxacin recommend discontinuing ciprofloxacin and restarting IV vancomycin. Repeat blood cultures obtained on 06/30 showed no growth. Recommend treating with IV vancomycin for 2 weeks from 06/30. -Patient will need transesophageal echocardiogram. Recommend transfer to [facility] UTI Urine culture growing Pseudomonas -CT abdomen pelvis negative for any obstructive uropathy/stone formation -IV meropenem deescalated to ciprofloxacin. Today is day 8 for treatment of UTI. Patient has chronic Fragoso catheter, recommend urology consultation. Patient may benefit from suprapubic catheter Decubitus wound to: sacrum, left hip, and right hip Wound care per surgical team Patient had a sacral wound debridement performed on 05/27. -Underwent left hip debridement on 07/02. Tolerated surgery well. -Recommend repeat sacral wound debridement -reposition patient in bed every two hours during waking hours. Low air loss mattress placed. -Patient placed on zinc and vitamin C Left heel stage II wound -Recommend applying pleurogel and covering with foam -Offload heels with heel booties Right heel stage I ulcer Offload with heel booties Plan of care discussed with Dr. Manuel Thank you for consultation
[2021-07-06 16:44] VITALS: BP 125/67; TEMP 98.2
--- NOTE | 2021-07-06 19:22 | P.PN ---
Subjective Date of Service: 07/06/21 Chief Complaint: fever Subjective: Improving (no complaints) Physical Examination - Vital Signs Temperature: 98.2 F Blood Pressure: 125/67 Pulse: 111 Respirations: 17 Pulse Ox (%): 97 - Physical Exam General: Alert, In no apparent distress Integumentary: Other (wounds unchanged) Assessment And Plan - Current Problems (Diagnosis) (1) Cellulitis and abscess of buttock Status: Acute - Plan - santyl dakins damp to dry to sacrum daily - order WVAC to LEFT hip, continue dakins damp to dry until WVAC applied - medhoney to RIGHT hip area with dry gauze - continue antibiotics - continue medical management - pressure reduction, air mattress
== END 2021-07-06 18:45 | disposition home health service (06) | DRG 853 ==
LOC: ER 08:54 → ERHOLD 11:10 → 2ND 14:38
PROVIDERS: ADMIT Internal Medicine; ATTEND Internal Medicine
PROC: 0JDM0ZZ Extraction of Left Upper Leg Subcutaneous Tissue and Fascia, Open Approach (ICD-10-PCS; principal; 2021-07-02 13:45)
DX: A41.1 Sepsis due to other specified staphylococcus (principal); L89.153 Pressure ulcer of sacral region, stage 3; L89.223 Pressure ulcer of left hip, stage 3; G92.9 Unspecified toxic encephalopathy; T83.511A Infection and inflammatory reaction due to indwelling urethral catheter, initial encounter; I69.351 Hemiplegia and hemiparesis following cerebral infarction affecting right dominant side; E87.0 Hyperosmolality and hypernatremia; L89.622 Pressure ulcer of left heel, stage 2; L89.611 Pressure ulcer of right heel, stage 1; I69.320 Aphasia following cerebral infarction; I10 Essential (primary) hypertension; E78.5 Hyperlipidemia, unspecified; E11.9 Type 2 diabetes mellitus without complications; K21.9 Gastro-esophageal reflux disease without esophagitis; N40.0 Benign prostatic hyperplasia without lower urinary tract symptoms; Z93.1 Gastrostomy status; M62.84 Sarcopenia; N30.90 Cystitis, unspecified without hematuria; B96.5 Pseudomonas (aeruginosa) (mallei) (pseudomallei) as the cause of diseases classified elsewhere; L89.219 Pressure ulcer of right hip, unspecified stage; Z20.822 Contact with and (suspected) exposure to COVID-19
CPT/HCPCS: 0240U; 36415; 36430; 71045; 74177; 80048; 80053; 80202; 81003; 81015; 82274; 82550; 82947; 83605; 83735; 83880; 84145; 85014; 85018; 85025; 85610; 85730; 86850; 86900; 86901; 87040; 87077; 87086; 87088; 87186; 87205; 88304; 88312; 93005; 94640; 96365; 96366; 99285; C9113; J0744; J2185; J2250; J2370; J2405; J2704; J3010; J3370; J3480; J3590; J7030; J7040; J7050; J7120; J7799; P9016; P9047; Q9967

== ENCOUNTER 2021-07-13 10:34 | Inpatient (IN) | payer BC ==
--- OUTSIDE RECORDS SUMMARY | 2021-07-13 10:52 | XMS REPORT | Continuity of Care Document ---
:1955 Author Organization [facility] t Address [address] [place] [address] Care Team Providers Name Role Phone DR [...] Attending Clinician Unavailable Herminio BELLO Attending Clinician [facility] Attending Clinician Unavailable Juli Scott MD Attending Clinician Skylar BELLO Attending Clinician Kamaljit SCHERER M Attending Clinician Meseret Lara MD Attending Clinician Ramiro Lu CRNA Attending Clinician DR DOV Attending Clinician Unavailable LOLY Attending Clinician Unavailable DR DOV Attending Clinician Unavailable MICHAEL Admitting Clinician Unavailable Michael BELLO Admitting Clinician DR DOV Admitting Clinician Unavailable LOLY Admitting Clinician Unavailable Payers Payer Name Policy Type Policy Number Effective Date Expiration Date S shan HIM BCBS BLUE [id number] 2020 ADVANTAGE HMO 00:00:00 [id number] 1958 00:00:00 Problems Condition Condition Condition Status Onset Resolution Last Treating Co mments Source Name Details Category Date Date Treatment Clinician Date Stroke Stroke Disease Active 2020-04 Univers determined determined 2-15 it y of by by 00:00: [place] clinical clinical 00 Medica l assessment assessment Br anch Right leg Right leg Disease Active 2020-04 Uni vers weakness weakness 2-11 ity of 00:00: [place] 00 Medical Branch E44.0 E44.0 Disease Active 2020-04 Univers Moderate Moderate 2-06 ity of protein protein 00:00: [place] calorie calorie 00 Medical malnutriti malnutriti Br anch on on Coffee Coffee Disease Active 2020-04 Overview: [facility] [place] [facility] ground ground 2-05 Formattin ity of emesis emesis 00:00: g of this [place] 00 note Medical might be Branch different from the original. 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 Confusion Confusion Disease Active 2020-04 Uni vers 0-29 ity of 00:00: [place] 00 Medical Branch Cerebrovas Cerebrovas Diagnosis Active [facility] accident 00:00: [facility] a 00 l (LUF/LI V/SA) Left Left Diagnosis Active [facility] against against 01-07 [facility] medical medical 00:00: Memoria advice advice 00 l (LUF/LI V/SA) Allergies, Adverse Reactions, Alerts Allergy Allergy Status Severity Reaction(s) Onset Inactive Treating Comm ents Source Name Type Date Date Clinician NO KNOWN Drug Active Univers ALLERGIE Class ity of S [facility] Family History Family Member Diagnosis Comments Start Date Stop Date Source Natural father Cancer [facility] Natural father High cholesterol Univ ersity [facility] Natural father Hypertension Universi ty of [facility] Natural mother Cancer [facility] Natural mother Stroke [facility] Social History Social Habit Start Date Stop Date Quantity Comments Source History of tobacco Cigarette Smoker University of use [facility] Exposure to Unable to assess Univers ity of SARS-CoV-2 (event) [facility] History [facility] o f Alcohol Frequency [facility] Branch History [facility] o f Alcohol Std Drinks [facility] History [facility] o f Alcohol Binge [facility] [place] Alcohol intake 2021-03-31 2021-03-31 Ex-drinker [facility] 00:00:00 00:00:00 (finding) [facility] Education 2021-03-15 2021-03-15 21 [place] of 00:00:00 00:00:00 [facility] Alcohol Comment 2021-03-02 2021-03-02 Socially Universit y of 00:00:00 00:00:00 [facility] Cigarettes smoked 2021-02-09 2021-02-09 Univers ity of current (pack per 00:00:00 00:00:00 [facility] ) - Reported Branch Cigarette 2021-02-09 2021-02-09 University of pack-years 00:00:00 00:00:00 [facility] Tobacco use and 2021-02-09 2021-02-09 Former user Universi ty of exposure 00:00:00 00:00:00 [facility] Sex [birth year] Universit y of 00:00:00 00:00:00 [facility] Smoking Status Start Date Stop Date Source Never smoker [facility] (LUF/SOUTH/SA) Former smoker 2021-02-09 00:00:00 2021-02-09 00:00:00 Universi ty of [place] [facility] Medications Ordered Filled Start Stop [...] (1,000 Branch unit) tablet pantoprazol 2020-04 Yes [id number] 40mg Take 20 mL Univers e 2 mg/mL 2-28 through ity of oral 00:00: enteral [place] suspension 00 tube 2 Medical (two) Branch times daily. pantoprazol 2020-04 Yes [id number] 40mg Take 20 mL Univers e 2 mg/mL 2-28 through ity of oral 00:00: enteral [place] suspension 00 tube 2 Medical (two) Branch times daily. pantoprazol 2020-04 Yes [id number] 40mg Take 20 mL Univers e 2 mg/mL 2-28 through ity of oral 00:00: enteral [place] suspension 00 tube 2 Medical (two) Branch times daily. amLODIPine 2020-04- No [id number] 10mg Take 1 Univers 10 mg 2-28 12-24 tablet ity of tablet 00:00: 05:59 through [place] 00 :00 enteral Medical tube daily Branch for 360 days. polyethylen 2020-04- No [id number] 17g Take 1 Univers e glycol 2-28 12-24 Packet ity of 3350 17 00:00: 05:59 through [place] gram powder 00 :00 enteral Medic al tube daily Branch for 360 days. modafiniL 2020-04- No [id number] 100mg Take 1 Univers 100 mg 2-28 12-24 tablet ity of tablet 00:00: 05:59 through [place] 00 :00 enteral Medical tube daily Branch for 360 days. FLUoxetine 2020-04- No [id number] 10mg Take 2.5 Univers 20 mg/5 mL 2-28 12-24 mL through it y of (4 mg/mL) 00:00: 05:59 [place]eral [place] solution 00 :00 tube daily Medic al for 360 Branch days. docusate 50 2020-04- No [id number] 100mg Take 10 mL Univers mg/5 mL 2-28 12-24 through ity of solution 00:00: 05:59 enteral [place] 00 :00 tube daily Medical for 360 Branch days. amLODIPine 2020-04- No [id number] 10mg Take 1 Univers 10 mg 2-28 12-24 tablet ity of tablet 00:00: 05:59 through [place] 00 :00 enteral Medical tube daily Branch for 360 days. polyethylen 2020-04- No [id number] 17g Take 1 Univers e glycol 2-28 12-24 Packet ity of 3350 17 00:00: 05:59 through [place] gram powder 00 :00 enteral Medic al tube daily Branch for 360 days. modafiniL 2020-04- No [id number] 100mg Take 1 Univers 100 mg 2-28 12-24 tablet ity of tablet 00:00: 05:59 through [place] 00 :00 enteral Medical tube daily Branch for 360 days. FLUoxetine 2020-04- No [id number] 10mg Take 2.5 Univers 20 mg/5 mL 2-28 12-24 mL through it y of (4 mg/mL) 00:00: 05:59 [place]eral [place] solution 00 :00 tube daily Medic al for 360 Branch days. docusate 50 2020-04- No [id number] 100mg Take 10 mL Univers mg/5 mL 2-28 12-24 through ity of solution 00:00: 05:59 enteral [place] 00 :00 tube daily Medical for 360 Branch days. amLODIPine 2020-04- No [id number] 10mg Take 1 Univers 10 mg 2-28 12-24 tablet ity of tablet 00:00: 05:59 through [place] 00 :00 enteral Medical tube daily Branch for 360 days. polyethylen 2020-04- No [id number] 17g Take 1 Univers e glycol - 12-24 Packet ity of 3350 17 00:00: 05:59 through [place] gram powder 00 :00 enteral Medic al tube daily Branch for 360 days. modafiniL 2020-04- No [id number] 100mg Take 1 Univers 100 mg 2- 12-24 tablet ity of tablet 00:00: 05:59 through [place] 00 :00 enteral Medical tube daily Branch for 360 days. FLUoxetine 2020-04- No [id number] 10mg Take 2.5 Univers 20 mg/5 mL 2-28 12-24 mL through it y of (4 mg/mL) 00:00: 05:59 [place]eral [place] solution 00 :00 tube daily Medic al for 360 Branch days. docusate 50 2020-04- No [id number] 100mg Take 10 mL Univers mg/5 mL 2- 12-24 through ity of solution 00:00: 05:59 enteral [place] 00 :00 tube daily Medical for 360 Branch days. pantoprazol 2020-04- No [id number] 40mg Take 20 mL Univers e 2 mg/mL 2-28 12-28 through ity of oral 00:00: 00:00 enteral [place] suspension 00 :00 tube 2 Medical (two) Branch times daily. amLODIPine 2020-04- No 10mg Take 10 mg Univers 10 mg -06 04- by mouth. ity of tablet 13:44: 00:00 [place] 38 :00 Medical Branch chlorthalid 2020-04- No 25mg Take 25 mg Univers one 25 mg - 12- by mouth. ity of tablet 13:44: 00:00 [place] 38 :00 Medical Branch metformin 2020-04- No 750mg Take 750 Un dariela ER 750 mg - 12-27 mg by ity of 24 hr 13:44: 00:00 mouth. [place] tablet 38 :00 Medical Branch clopidogreL 2020-04- No 75mg Take 75 mg Univers 75 mg 06-07- by mouth. ity of tablet 13:44: 00:00 [place] 38 :00 [facility] Branch carvediloL 2020-04- No 25mg Take 25 mg Univers (COREG) 25 06-07- by mouth 2 it y of mg tablet 13:44: 00:00 (two) [place] 37 :00 times Medical daily with [place] meals. atorvastati 2020-04- No [id number] 40mg Take 1 Univers n 40 mg 06-07- tablet ity of tablet 00:00: 05:59 through [place] 00 :00 enteral Medical tube at [place] bedtime for 360 days. carvedilol 2020-04- No [id number] 25mg Take 20 mL Univers 1.25 mg/mL 06-07- through ity o f oral 00:00: 05:59 enteral [place] suspension 00 :00 tube 2 Medical (two) Branch times daily with meals for 360 days. ticagrelor 2020-04- No [id number] 90mg Take 1 Univers 90 mg 06-07- tablet ity of tablet 00:00: 05:59 through [place] 00 :00 enteral Medical tube 2 Branch (two) times daily for 360 days. tamsulosin 2020-04- No [id number] .4mg Take 1 Univers 0.4 mg 24 06-07- capsule by ity of hr capsule 00:00: 05:59 mouth 2 [place] 00 :00 (two) Medical times [place] daily for 360 days. KCL 20 2020-04- No [id number] 20meq Take 15 mL Univers mEq/15 mL 2- 12-23 through ity of solution 00:00: 05:59 enteral [place] 00 :00 tube 2 Medical (two) Branch times daily for 360 days. atorvastati 2020-04- No [id number] 40mg Take 1 Univers n 40 mg 2- 12-23 tablet ity of tablet 00:00: 05:59 through [place] 00 :00 enteral Medical tube at Branch bedtime for 360 days. carvedilol 2020-04- No [id number] 25mg Take 20 mL Univers 1.25 mg/mL 2- 12-23 through ity o f oral 00:00: 05:59 enteral [place] suspension 00 :00 tube 2 Medical (two) Branch times daily with meals for 360 days. ticagrelor 2020-04- No [id number] 90mg Take 1 Univers 90 mg - 12- tablet ity of tablet 00:00: 05:59 through [place] 00 :00 enteral Medical tube 2 Branch (two) times daily for 360 days. tamsulosin 2020-04- No [id number] .4mg Take 1 Univers 0.4 mg 24 06-07 capsule by ity of hr capsule 00:00: 05:59 mouth 2 [place] 00 :00 (two) Medical times Branch daily for 360 days. KCL 20 2020-04- No [id number] 20meq Take 15 mL Univers mEq/15 mL 06-07-23 through ity of solution 00:00: 05:59 enteral [place] 00 :00 tube 2 Medical (two) Branch times daily for 360 days. atorvastati 2020-04- No [id number] 40mg Take 1 Univers n 40 mg 2- 12-23 tablet ity of tablet 00:00: 05:59 through [place] 00 :00 enteral Medical tube at Branch bedtime for 360 days. carvedilol 2020-04- No [id number] 25mg Take 20 mL Univers 1.25 mg/mL 2 12-23 through ity o f oral 00:00: 05:59 enteral [place] suspension 00 :00 tube 2 Medical (two) Branch times daily with meals for 360 days. ticagrelor 2020-04- No [id number] 90mg Take 1 Univers 90 mg 2-27 12-23 tablet ity of tablet 00:00: 05:59 through [place] 00 :00 enteral Medical tube 2 Branch (two) times daily for 360 days. tamsulosin 2020-04- No [id number] .4mg Take 1 Univers 0.4 mg 24 06-07 capsule by ity of hr capsule 00:00: 05:59 mouth 2 [place] 00 :00 (two) Medical times Branch daily for 360 days. KCL 20 2020-04- No [id number] 20meq Take 15 mL Univers mEq/15 mL 06-07 through ity of solution 00:00: 05:59 enteral [place] 00 :00 tube 2 Medical (two) Branch times daily for 360 days. pantoprazol 2020-04- No [id number] 40mg Take 20 mL Univers e 2 mg/mL 06-07 through ity of oral 00:00: 00:00 enteral [place] suspension 00 :00 tube 2 Medical (two) Branch times daily for 360 days. pantoprazol 2020-04 Yes 40mg 40 mg, Univ ers e 06-06 Enteral, ity of (PROTONIX) 02:00: BID, First [place] 2 mg/mL 00 dose on Medical oral Sat Branch suspension 04/04/21 40 mg at 1999, Until Discontinu ed, Routine ticagrelor 2020-04 Yes [...] Tue03/31/21 at 0900, Until Discontinu ed, Routine
community board member approving Non-formul hank medication : JIA SANTAMARIA RA
R dwight for non-formul hank use: SPECIFIC INDICATION FOR NONFORMULA RY PRODUCT modafiniL 2020-04 Yes 100mg 100 mg, Univ ers (PROVIGIL) 2- Enteral, ity o f tablet 100 15:00: DAILY, [place] mg 00 First dose Medical (after Branch last modificati on) on Tue03/31/21 at 0900, Until Discontinu ed, Routine
community board member approving Non-formul hank medication : JIA SANTAMARIA RA
R dwight for non-formul hank use: SPECIFIC INDICATION FOR NONFORMULA RY PRODUCT magnesium 2020-04 2g 2 g, IV Univ ers sulfate in -30 03- Piggyback, it y of water 2 14:00: [...] No 1000mg 1,000 mg, Unive rs dextran 05-30 IV ity of (INFED) 14:45: 19:30 Infusion, [...] Starting infusion on Tue03/27/21 at 2300 pantoprazol 2020-04 No 8mg/h 8 mg/hr U nivers e [...] 2100, Until Discontinu ed iopamidol 2020-04- No [id number] 90mL 90 mL, Univers (ISOVUE 05-28 Intravenou [...] :11 First dose Medi jaspal infusion on [facility] Branch 03/26/21 at 1430, Until Discontinu ed, Administer over 30 Minutes, 100 mL glycerin/mi 2020-04 No 225mL 225 mL, U nivers neral oil 05-27- Rectal, ity of (AGLO 20:30: 21:32 ONCE, 1 [place] ENEMA) 00 :00 dose, On Medical ([facility] ) Enem 225 03/26/21 mL at 1430, Routine FLUoxetine 2020-04 Yes 10mg 10 mg, Unive rs (PROZAC) 20 2-16 Enteral, ity of mg/5 mL (4 15:00: DAILY, [place] mg/mL) 00 First dose Medical solution 10 (after Branch mg last modificati on) on [facility] 03/26/21 at 0900, Until Discontinu ed, Routine FLUoxetine 2020-04 Yes 10mg 10 mg, Unive rs (PROZAC) 20 -16 Enteral, ity of mg/5 mL (4 15:00: DAILY, [place] mg/mL) 00 First dose Medical solution 10 (after Branch mg last modificati on) on Evi 03/26/21 at 0900, Until Discontinu ed, Routine clopidogreL 2020-04 No 75mg 75 mg, Uni vers (PLAVIX) 05-27- Enteral, ity of tablet 75 15:00: 20:56 DAILY, [place] mg 00 :58 First dose Medical (after Branch last modificati on) on [facility] 03/26/21 at 0900, Until Discontinu ed, Routine [...] Until Discontinu ed, Routine gadoteridol 2020-04 No [id number] .2mL/kg 14.5 mL Univers (PROHANCE-1 2-15 12-15 [...] 2020-04 No 81mg 81 mg, Univers chewable 05-25-23 [...] First dose [place] mEq 00 :56 on [facility] Medical 03/23/21 Branch at 2000, Until Discontinu ed, Routine carvedilol 2020-04 Yes 25mg 25 mg, Unive rs (COREG) 2-13 Enteral, ity of 1.25 mg/mL 23:00: BID MEALS, [place] oral 00 First dose Medical suspension on [facility] Branch 25 mg 03/23/21 at 1700, Until Discontinu ed, Routine carvedilol 2020-04 Yes 25mg 25 mg, Unive rs (COREG) 2-13 Enteral, ity of 1.25 mg/mL 23:00: BID MEALS, [place] oral 00 First dose Medical suspension on [facility] Branch 25 mg 03/23/21 at 1700, Until Discontinu ed, Routine acetaminoph 2020-04 Yes 650mg 650 mg, Un dariela en 2- Enteral, ity of (TYLENOL) 21:10: Q6HPRN, [place] tablet 650 48 Starting Medic al mg on [facility] Branch 03/23/21 at 1510, Until Discontinu ed, Routine, Pain (scale 1-3) acetaminoph 2020-04 Yes 650mg 650 mg, Un dariela en 05-24 Enteral, ity of (TYLENOL) 21:10: Q6HPRN, [place] tablet 650 48 Starting Medic al mg on [facility] Branch 03/23/21 at 1510, Until Discontinu ed, Routine, Pain (scale 1-3) sulfur 2020-04- No [id number] 5mL 5 mL, Univ ers hexafluorid 05-24 Intravenou i ty of e microsphr 18:00: 16:38 s, ONCE, 1 [place] (LUMASON) 00 :00 dose, On Medica l injection 5 [facility] Branch mL 03/23/21 at 1200, Routine
community board member approving Restricted medication : EARL CORBIN Saline 2020-04- No [id number] 6mL 6 mL, Univ ers Bubble 05-24 Injection, ity of Study 17:57: 22:00 SEE-INSTRU [place] 36 :25 CTIONS, Medical Starting Branch on Tue03/23/21 at 1157, Until Tue03/30/21 at 1600, Routine carvediloL 2020-04 Yes 25mg Take 25 mg U nivers (COREG) 25 2-12 by mouth 2 ity of mg tablet 21:38: (two) [place] 37 times Medical daily with Branch meals. iopamidol 2020-04 No [id number] 80mL 80 mL, Univers (ISOVUE 05-23 [id number] Intravenou ity of 370-500 mL) 17:30: 17:30 [...] at 2000, Until Discontinu ed, Routine KCL 2020-04 No 40meq 40 mEq, Univers (KLOR-CON 05-18 Oral, BID, ity of M20) tablet 02:00: 21:11 First dose [place] 40 mEq 00 :05 (after Medical last Branch modificati on) on 03/16/21 at 2000, Until Discontinu ed, Routine Sliding 2020-[address] [facility] ers Scale 2-06 , TIDAC, ity of Insulin-Reg 22:30: First dose [place] ular + Fsbg 00 on Mon Medica l Testing 03/16/21 at Branch 1630, Until Discontinu ed, Routine Sliding 2020-[address] [facility] ers Scale 2-06 us, TIDAC, ity [...] 40 mEq 00 :00 dose, On Medical [facility] 03/16/21 at 1515, Routine polyethylen 2020-04 17g 17 g, Univ ers e glycol 05-17 Oral, ity of 3350 powder 18:00: 21:11 DAILY, [place] 17 g 00 :06 First dose Medical on [facility] 03/16/21 at 1200, Until Discontinu ed, Routine glucagon 2020-04 Yes 1mg 1 mg, Univers (GLUCAGEN 05-17 Intramuscu ity of DIAGNOSTIC 17:50: lar, PRN, [place] KIT) 18 Starting Medical injection [address] [facility] 03/16/21 at 1150, Until Discontinu ed, RODRIGO, Blood Glucose < or = 70 mg/dL and patient is unable to swallow or has mental changes. dextrose 50 2020-04 Yes 25mL 25 mL, Univ ers % in water 05-17 Slow IV ity of (D50W) 17:50: Push, PRN, [place] injection 18 Starting Medica l [address] [facility] 03/16/21 at 1150, Until Discontinu ed, RODRIGO, Blood Glucose < or = 70 mg/dL and patient is unable to swallow or has mental status changes. glucagon 2020-04 Yes 1mg 1 mg, Univers (GLUCAGEN 05-17 Intramuscu ity of DIAGNOSTIC 17:50: lar, PRN, [place] KIT) 18 Starting Medical injection [address] [facility] 03/16/21 at 1150, Until Discontinu ed, RODRIGO, Blood Glucose < or = 70 mg/dL and patient is unable to swallow or has mental changes. dextrose 50 2020-04 Yes 25mL 25 mL, Univ ers % in water 05-17 Slow IV ity of (D50W) 17:50: Push, PRN, [place] injection 18 Starting Medica l [address] [facility] 03/16/21 at 1150, Until Discontinu [...] IV Push, ity of (PF)) 15:26: Q6HPRN, [place] injection 4 25 Starting Medi jaspal mg on [facility] 03/16/21 at 0926, Until Discontinu ed, Routine, Nausea and Vomiting (N/V) ondansetron 2020-04 Yes 4mg 4 mg, Slow Univers (ZOFRAN 2-06 IV Push, ity of (PF)) 15:26: Q6HPRN, [place] injection 4 25 Starting Medi jaspal mg on [facility] 03/16/21 at 0926, Until Discontinu ed, Routine, Nausea and Vomiting (N/V) clopidogreL 2020-04 No 75mg 75 mg, Uni vers (PLAVIX) 05-17 1215 Oral, ity of tablet 75 15:00: 21:57 DAILY, [place] mg 00 :56 First dose Medical on [facility] 03/16/21 at 0900, Until Discontinu ed, Routine aspirin 2020-04 No 81mg 81 mg, Univers chewable 05-1713 Oral, ity of tablet 81 15:00: 21:11 DAILY, [place] mg 00 :06 First dose Medical on [facility] 03/16/21 at 0900, Until Discontinu ed, Routine magnesium 2020-04 No 400mg 400 mg, Uni vers oxide 05-17 12-08 Oral, ity of (MAG-OX 15:00: 14:45 DAILY, [place] 400) tablet 00 :27 First dose Me dical [address] [facility] 03/16/21 at 0900, Until Discontinu ed, Routine docusate 2020-04 No 100mg 100 mg, Univ ers (COLACE) 05-17 12-14 Oral, BID, ity of capsule 100 14:00: 04:23 First dose [place] mg 00 :18 on [facility] 03/16/21 at Branch 0800, Until Discontinu ed, Routine polyethylen 2020-04 No 17g 17 g, Univ ers e glycol 05-17 Oral, ity of 3350 powder 10:30: 11:12 ONCE, 1 [place] 17 g 00 :00 dose, On Medical Mon Branch 03/16/21 at 0445, Routine cefTRIAXone 2020-04- No 1000mg 1,000 mg, Univers (ROCEPHIN) 05-17- IV ity of 1,000 mg in 07:30: 19:34 Piggyback, [place] NaCl 0.9% 00 :09 Q24H ABX, Medic al (NS) 50 mL First dose [facility] MINI-BAG on [facility] 03/16/21 at 0130, Until Discontinu ed, Administer over 30 Minutes, 50 mL
Reas on for Anti-Infec tive: Empiric Therapy for Suspected Infection< br>Empiric Therapy Site: Blood
D uration of therapy: 7 days NaCl 0.9% 2020-04- IV Univers (NS) 1000 05-17 Infusion, ity of mL + KCL 20 06:15: 15:32 at 50 [place] mEq 00 :30 mL/hr, [facility] Branch , Starting on [facility] 03/16/21 at 0015, Until [place] 03/29/21 at 0932, Routine iohexol 2020-04- No [id number] 120mL 120 mL, Univers (OMNIPAQUE 05-17 Intravenou it y of 350 04:45: 04:19 s, ONCE, 1 [place] BULK-100 00 :00 dose, On Medical mL) [facility] injection 03/15/21 at 120 mL 2245, Routine atorvastati 2020-04- No 40mg 40 mg, Uni vers n (LIPITOR) 05-17-13 Oral, QHS, i ty of tablet 40 03:00: 21:11 First dose [place] mg 00 :06 on [facility] 03/15/21 at Branch 2100, Until Discontinu ed, Routine tamsulosin 2020-04- No .4mg 0.4 mg, Uni vers (FLOMAX) 05-17-15 Oral, BID, ity of capsule 0.4 02:45: 21:57 First dose [place] mg 00 :56 on [facility] 03/15/21 at Branch 2045, Until Discontinu ed, Routine enoxaparin 2020-04- No 30mg 30 mg, Univ ers (LOVENOX) 05-16 Subcutaneo ity of injection 23:00: 22:00 us, DAILY, [place] 30 mg 00 :14 First dose Medical on [facility] 03/15/21 at 1700, Until Discontinu ed, Routine carvediloL 2020-04- No 25mg 25 mg, Univ ers (COREG) 05-16- Oral, BID ity of tablet 25 23:00: 21:11 MEALS, [place] mg 00 :05 First dose Medical on [facility] 03/15/21 at 1700, Until Discontinu ed, Routine NaCl 0.9% 2020-04- No IV Univers (NS) 1000 05-16 Infusion, ity of mL + KCL 20 22:00: 06:13 at 80 [place] mEq 00 :49 mL/hr, Medical [facility] , Starting on 03/15/21 at 1600, Until 03/16/21 at 0013, Routine Potassium 2020-04- No 40meq 40 mEq, Uni vers Bicarb-Citr 05-16 Oral, ity of ic Acid 20:45: 19:42 ONCE, 1 [place] (EFFER-K) 00 :00 dose, On Medica l effervescen [facility] t tablet 40 03/15/21 at mEq 1445, Routine magnesium 2020-04- No 2g 2 g, IV Univ ers sulfate in 05-16 Piggyback, it y of water 2 20:00: 19:13 ONCE, 1 [place] gram/50 mL 00 :00 dose, On Medic al (4 %) [facility] infusion 2 03/15/21 at g 1400, Routine amLODIPine 2020-04 Yes 10mg Take 10 mg U nivers 10 mg 2-05 by mouth. ity of tablet 16:26: [place] 38 [facility] Branch ascorbic 2020-04 Yes 500mg Take 500 [...] by mouth. ity o f tablet 16:26: [address] metformin 2020-04 Yes 750mg Take 750 Uni vers ER 750 mg 2-05 mg by ity of 24 hr 16:26: mouth. [address] clopidogreL 2020-04 Yes 75mg Take 75 mg Univers 75 mg 2-05 by mouth. ity of tablet 16:26: [address] amLODIPine 2020-04 Yes 10mg Take 10 mg U nivers 10 mg 2-05 by mouth. ity of tablet 16:26: [address] ascorbic 2020-04 Yes 500mg Take 500 Univ ers acid, 2-05 mg by ity of vitamin C, 16:26: mouth. [place] [address] tablet Branch cholecalcif 2020-04 Yes 5000U Take 5,000 Univers boy, 2-05 Units by ity of vitamin D3, 16:26: mouth. [place] 25 mcg Medical (1,000 Branch unit) tablet chlorthalid 2020-04 Yes 25mg Take 25 mg Univers one 25 mg 2-05 by mouth. ity o f tablet 16:26: [address] metformin 2020-04 Yes 750mg Take 750 Uni vers ER 750 mg 2-05 mg by ity of 24 hr 16:26: mouth. [address] clopidogreL 2020-04 Yes 75mg Take 75 mg Univers 75 mg 2-05 by mouth. ity of tablet 16:26: [address] aspirin-dip 2020-04- No [id number] 1{capsu Take 1 Univers yridamole 05-02 [id number] le} capsule by i ty of 25-200 mg 00:00: 00:00 mouth 2 [place] per 12 hr 00 :00 (two) Medical capsule times Branch daily for 30 days. aspirin-dip 2020-04- No [id number] 1{capsu Take 1 Univers yridamole 05-02 [id number] le} capsule by i ty of 25-200 mg 00:00: 05:59 [place] 12 [place] 00 :00 (two) Medical capsule times Branch daily for 30 days. aspirin-dip 2020-04- No [id number] 1{capsu Take 1 Univers yridamole 05-02 [id number] le} capsule by i ty of 25-200 mg 00:00: 05:59 [place] per 12 hr 00 :00 (two) Medical capsule times [place] daily for 30 days. atorvastati 2020-04 Yes [id number] 40mg Take 1 Univers n 40 mg 04-12 tablet by ity of tablet 00:00: mouth at [place] [address] bedtime. Medical Branch atorvastati 2020-04 Yes [id number] 40mg Take 1 Univers n 40 mg 04-12 tablet by ity of tablet 00:00: mouth at [place] 00 bedtime. Medical Branch atorvastati 2020-04- No [id number] 40mg Take 1 Univers n 40 mg 04-12 tablet by ity of tablet 00:00: 00:00 mouth at [place] 00 :00 bedtime. [facility] Vital Signs Vital Name Observation Time Observation Value Comments Source Systolic blood 2021-04-07 20:55:00 143 mm[Hg] [facility]iver [facility]ity [facility] Diastolic blood 2021-04-07 20:55:00 71 mm[Hg] [facility] Heart rate 2021-04-07 20:55:00 83 /min [facility] Body temperature 2021-04-07 20:55:00 36 Marlee [facility] Respiratory rate 2021-04-07 20:55:00 18 /min [facility] Oxygen saturation in 2021-04-07 20:55:00 98 /min [facility] Arterial blood by [facility] Pulse oximetry Branch Body height 2021-03-30 14:05:00 177.8 cm [facility] Body weight 2021-03-30 14:05:00 72.122 kg [facility] BMI 2021-03-30 14:05:00 22.81 kg/m2 [facility] Systolic blood 2021-03-30 14:05:00 114 mm[Hg] Univer sity of [facility] Diastolic blood 2021-03-30 14:05:00 78 mm[Hg] Unive rsity of pressure [place] [facility] Heart rate 2021-03-30 14:05:00 84 /min [facility]i [facility] [place] [facility] Body temperature 2021-03-30 14:05:00 36.22 Marlee Univ ers[facility] [place] [facility] Respiratory rate 2021-03-30 14:05:00 12 /min Univ [facility] [place] [facility] Body height 2021-03-30 14:05:00 177.8 cm [facility]i [facility] [place] [facility] Body weight 2021-03-30 14:05:00 72.122 kg [facility]i [facility] [place] [facility] BMI 2021-03-30 14:05:00 22.81 kg/m2 Universi ty of [facility] Branch Oxygen saturation in 2021-03-30 14:05:00 100 /min University of Arterial blood by [facility] Pulse oximetry Branch Height 2021-01-07 12:08:00 177.8 CM Weight 2021-01-07 12:08:00 80.8 KG Systolic blood 2021-03-29 17:57:00 119 mm[Hg] Univer sity of pressure [place] [facility] Diastolic blood 2021-03-29 17:57:00 57 mm[Hg] Unive rsity of pressure [place] [facility] Heart rate 2021-03-29 17:57:00 87 /min Universi ty [facility] [place] [facility] Body temperature 2021-03-29 17:57:00 36.67 Marlee Univ [facility] [place] [facility] Respiratory rate 2021-03-29 17:57:00 16 /min Univ ersity of [facility] Oxygen saturation in 2021-03-29 17:57:00 96 /min University of Arterial blood by [facility] jaspal Pulse oximetry [place] Body weight 2021-03-20 09:51:00 72.485 kg [facility]i [facility] [place] [facility] BMI 2021-03-20 09:51:00 22.93 kg/m2 [facility] [place] [facility] Body height 2021-03-15 21:31:00 177.8 cm [facility]i [facility] [place] [facility] Pulse Rate 2021-01-07 12:08:00 78 /min [facility] (LUF/SOUTH/SA) Respiratory Rate 2021-01-07 12:08:00 18 /min [facility] (LUF/SOUTH/SA) O2% BldC Oximetry 2021-01-07 12:08:00 96 % [facility] (LUF/SOUTH/SA) BP Systolic 2021-01-07 12:08:00 151 mm[Hg] [facility] (LUF/SOUTH/SA) BP Diastolic 2021-01-07 12:08:00 84 mm[Hg] [facility] (LUF/SOUTH/SA) Height 2021-01-07 12:08:00 70 [in_i] [facility] (LUF/SOUTH/SA) Weight 2021-01-07 12:08:00 80.8 kg [facility] (F/SOUTH/SA) BMI (Body Mass 2021-01-07 12:08:00 25.7 kg/m2 [facility]) [facility] (LUF/SOUTH/SA) Body Temperature 2021-01-07 12:08:00 97.4 [degF] [facility] (F/SOUTH/SA) Procedures Procedure Date / Time Performing Source Performed Clinician POCT GLUCOSE (AUTOMATED) 2021-04-07 Michael, Marcel Univers ity of 17:17:00 [facility] COVID-19 (ID NOW RAPID TESTING) 2021-04-07 Anisa Caruso [place] of 17:11:00 [facility] LAB ONLY COVID INTERPRETATION 2021-04-07 Anisa Caruso iversity of 17:11:00 [facility] POCT GLUCOSE (AUTOMATED) 2021-04-07 MichaelAndres rubioun Univers ity of 13:14:00 [facility] POCT GLUCOSE (AUTOMATED) 2021-04-06 Michael, Marcel Univers ity of 22:47:00 [facility] POCT GLUCOSE (AUTOMATED) 2021-04-06 Michael, Marcel Univers ity of 16:55:00 [facility] POCT GLUCOSE (AUTOMATED) 2021-04-06 Michael, Marcel Univers ity of 14:05:00 [facility] BASIC METABOLIC PANEL (NA, K, CL, 2021-04-06 Rob Bates [facility] University of CO2, GLUCOSE, BUN, CREATININE, 10:54:[facility] CBC WITH DIFF 2021-04-06 [facility] 10:53:00 Verdugo [facility] POCT GLUCOSE (AUTOMATED) 2021-04-05 Michael, Marcel Univers ity of 21:39:00 [facility] POCT GLUCOSE (AUTOMATED) 2021-04-05 Michael, Marcel Univers ity of 18:09:00 [facility] POCT GLUCOSE (AUTOMATED) 2021-04-05 Michael, Marcel Univers ity of 14:03:00 [facility] POCT GLUCOSE (AUTOMATED) 2021-04-04 Michael, Marcel Univers ity of 21:40:00 [facility] POCT GLUCOSE (AUTOMATED) 2021-04-04 Michael, Marcel Univers ity of 18:07:00 [facility] POCT GLUCOSE (AUTOMATED) 2021-04-04 Michael, Marcel Univers ity of 14:07:00 [facility] POCT GLUCOSE (AUTOMATED) 2021-04-04 Michael, Marcel Univers ity of 01:40:00 [facility] POCT GLUCOSE (AUTOMATED) 2021-04-03 Michael, Marcel Univers ity of 22:51:00 [facility] CBC WITH DIFF 2021-04-03 Fortino Yoder [place] of 21:10:00 [facility] POCT GLUCOSE (AUTOMATED) 2021-04-03 Michael, Marcel Univers ity of 18:46:00 [facility] POCT GLUCOSE (AUTOMATED) 2021-04-03 Michael, Marcel Univers ity of 13:31:00 [facility] POCT GLUCOSE (AUTOMATED) 2021-04-02 Michael, Marcel Univers ity of 23:29:00 [facility] BASIC METABOLIC PANEL (NA, K, CL, 2021-04-02 BebaCarlos dhillon [facility] of CO2, GLUCOSE, BUN, CREATININE, 23:10:00 T [facility] Branch CBC WITH DIFF 2021-04-02 [facility] 23:10:00 [facility] POCT GLUCOSE (AUTOMATED) 2021-04-02 Michael, Marcel Univers ity of 19:11:00 [facility] DUPLEX VENOUS LEGS BILATERAL - BY 2021-04-02 Carlos Yoder [facility] of VASCULAR LAB 15:31:56 [facility] POCT GLUCOSE (AUTOMATED) 2021-04-02 Michael, Marcel Univers ity of 13:39:00 [facility] POCT GLUCOSE (AUTOMATED) 2021-04-01 Michael, Marcel Univers ity of 21:27:00 [facility] POCT GLUCOSE (AUTOMATED) 2021-04-01 Michael, Marcel Univers ity of 17:04:00 [facility] POCT GLUCOSE (AUTOMATED) 2021-04-01 [facility], Marcel Univers ity of 13:35:00 [facility] MAGNESIUM 2021-04-01 [facility] of 10:40:00 [facility] BASIC METABOLIC PANEL (NA, K, CL, 2021-04-01 Beba, Pank [facility] of CO2, GLUCOSE, BUN, CREATININE, 10:40:00 T [facility] CBC WITH DIFF 2021-04-01 [facility] of 10:40:00 [facility] POCT GLUCOSE (AUTOMATED) 2021-03-31 [facility], Marcel Univers ity of 21:12:00 [facility] POCT GLUCOSE (AUTOMATED) 2021-03-31 [facility], Marcel Univers ity of 17:06:00 [facility] POCT GLUCOSE (AUTOMATED) 2021-03-31 [facility], Marcel Univers ity of 17:06:00 [facility] IR SPINAL LUMBAR PUNCTURE 2021-03-31 Fortino Yoder Uni versity of DIAGNOSTIC 16:50:00 [facility] IR SPINAL LUMBAR PUNCTURE 2021-03-31 Fortino Yoder Uni versity of DIAGNOSTIC 16:50:00 [facility] MISCELLANEOUS SEND OUT TEST 2021-03-31 Fortino Yoder U niversity of 16:38:00 [facility] CYTO SPINAL FLUID 2021-03-31 Davey Yodernida [place] of 16:33:00 [facility] CEREBROSPINAL FLUID PROTEIN 2021-03-31 Fortino Yoder U niversity of 16:31:00 [facility] CEREBROSPINAL FLUID GLUCOSE 2021-03-31 Fortino Yoder U niversity of 16:31:00 [facility] LACTIC ACID CSF 2021-03-31 [facility] 16:31:00 [facility] LDH CSF 2021-03-31 [facility] 16:31:00 [facility] BODY FLUID DIRECT COUNT 2021-03-31 Fortino Yoder [facility] rsity of 16:31:00 [facility] EXTRA TUBE CSF 2021-03-31 [facility] 16:31:00 [facility] CSF CULTURE 2021-03-31 Beba, [facility] 16:31:00 [facility] MENINGITIS/ENCEPHALITIS PANEL BY 2021-03-31 Sunny Yoder [facility] of PCR 16:31:00 [facility] CEREBROSPINAL FLUID PROTEIN 2021-03-31 Fortino Yoder niversity of 16:31:00 [facility] CEREBROSPINAL FLUID GLUCOSE 2021-03-31 Fortino Yoder niversity of 16:31:00 [facility] LACTIC ACID CSF 2021-03-31 Beba, [facility] 16:31:00 [facility] LDH CSF 2021-03-31 Beba, [facility] 16:31:00 [facility] BODY FLUID DIRECT COUNT 2021-03-31 Fortino Yoder [facility] rsity of 16:31:00 [facility] AFB CULTURE 2021-03-31 [facility] of 16:31:00 [facility] CSF/CUSTODY OFFICER SHUNT CULTURE 2021-03-31 [facility] 16:31:00 [facility] MISCELLANEOUS SEND OUT TEST 2021-03-31 Marcel Concepcion [facility] ersity of 16:31:00 [facility] ANGIOTENSIN CONVERT ENZ, CSF 2021-03-31 [facility] of 16:31:00 [facility] WEST NILE VIRUS AB PANEL 2021-03-31 Davey Yodernida [facility] ersity of 16:31:00 [facility] T-BAWMPO-M-ASPARTATE RECEPTOR AB, 2021-03-31 Carlos Yoder [place] of CSF 16:31:00 [facility] EXTRA TUBE CSF 2021-03-31 Beba, [facility] of 16:31:00 [facility] CSF CULTURE 2021-03-31 Beba [facility] of 16:31:00 [facility] MENINGITIS/ENCEPHALITIS PANEL BY 2021-03-31 [facility] PCR 16:31:00 [facility] POCT GLUCOSE (AUTOMATED) 2021-03-31 Michael [facility] ity of 13:29:00 [facility] POCT GLUCOSE (AUTOMATED) 2021-03-31 Michael, [facility] ity of 13:29:00 [facility] MAGNESIUM 2021-03-31 Beba, [facility] 10:00:00 [facility] BASIC METABOLIC PANEL (NA, K, CL, 2021-03-31 [facility] CO2, GLUCOSE, BUN, CREATININE, 10:00:00 T [facility]) Branch CBC WITH DIFF 2021-03-31 [facility] of 10:00:00 [facility] MAGNESIUM 2021-03-31 [facility] of 10:00:00 [facility] BASIC METABOLIC PANEL (NA, K, CL, 2021-03-[address] of CO2, GLUCOSE, BUN, CREATININE, 10:00:00 T [facility]) Branch CBC WITH DIFF 2021-03-31 Beba, [facility] 10:00:00 [facility] MISCELLANEOUS SEND OUT TEST 2021-03-31 Fortino Yoder U niversity of 10:00:00 [facility] POCT GLUCOSE (AUTOMATED) 2021-03-30 Marcel Concepcion [facility] ity of 22:17:00 [facility] POCT GLUCOSE (AUTOMATED) 2021-03-30 Michael [facility] ity of 22:17:00 [facility] EGD (ENDO) 2021-03-30 [facility] of 16:35:27 [facility] EGD (ENDO) 2021-03-[facility] 16:35[facility]27 [facility] ESOPHAGOGASTRODUODENOSCOPY 2021-03-[address] Uni versity of 16:30:00 [facility] PERCUTANEOUS ENDOSCOPIC GASTRIC 2021-03-[address] University of TUBE PLACEMENT 16:30:00 [facility] ESOPHAGOGASTRODUODENOSCOPY 2021-03-[address] Uni versity of 16:30:00 [facility] PERCUTANEOUS ENDOSCOPIC GASTRIC 2021-03-[address] University of TUBE PLACEMENT 16:30:00 [facility] POCT GLUCOSE (AUTOMATED) 2021-03-30 [facility] Marcel Univers ity of 13:53:00 [facility] POCT GLUCOSE (AUTOMATED) 2021-03-30 [facility], [facility] ity of 13:53:00 [facility] MAGNESIUM 2021-03-30 [facility] of 10:47:00 [facility] BASIC METABOLIC PANEL (NA, K, CL, 2021-03-30 [facility] of CO2, GLUCOSE, BUN, CREATININE, 10:47:00 T [facility]) Branch CBC WITH DIFF 2021-03-30 [facility] of 10:47:00 [facility] MAGNESIUM 2021-03-30 [facility] of 10:47:00 [facility] BASIC METABOLIC PANEL (NA, K, CL, 2021-03-30 [facility] of CO2, GLUCOSE, BUN, CREATININE, 10:47:00 T [facility]) Branch CBC WITH DIFF 2021-03-30 [facility] of 10:47:00 [facility] POCT GLUCOSE (AUTOMATED) 2021-03-29 [facility] ity of 22:19:00 [facility] POCT GLUCOSE (AUTOMATED) 2021-03-29 [facility] ity of 22:19:00 [facility] COVID-19 (ID NOW RAPID TESTING) 2021-03-29 Russ Titus University of 22:03:00 [facility] LAB ONLY COVID INTERPRETATION 2021-03-29 Russ Titus iversity of 22:03:00 [facility] COVID-19 (ID NOW RAPID TESTING) 2021-03-29 Russ Titus University of 22:03:00 [facility] LAB ONLY COVID INTERPRETATION 2021-03-29 Russ Titus iversity of 22:03:00 [facility] HEPARIN ANTI-XA, LOW MOLECULAR 2021-03-[address] [facility] University of WEIGHT HEPARIN 19:01:00 [facility] HEPARIN ANTI-XA, LOW MOLECULAR 2021-03-[address], [facility] University of WEIGHT HEPARIN 19:01:00 [facility] CBC WITHOUT DIFF 2021-03-29 [facility] o f 18:31:00 [facility] CBC WITHOUT DIFF 2021-03-29 [facility] o f 18:31:00 [facility] POCT GLUCOSE (AUTOMATED) 2021-03-29 Michael, Marcel Univers ity of 18:07:00 [facility] POCT GLUCOSE (AUTOMATED) 2021-03-29 Andres Concepcionun Univers ity of 18:07:00 [facility] TRANSFUSE PACKED RBC 2021-03-29 [facility] ty of 16:01:00 [facility] TRANSFUSE PACKED RBC 2021-03-29 [facility] ty of 16:01:00 [facility] TRANSFUSE PACKED RBC 2021-03-29 [facility] ty of 16:01:00 [facility] PREPARE PACKED RBC 2021-03-29 [facility] of 15:56:11 [facility] PREPARE PACKED RBC 2021-03-29 [facility] of 15:56:11 [facility] PREPARE PACKED RBC 2021-03-29 [facility] of 15:56:11 [facility] POCT GLUCOSE (AUTOMATED) 2021-03-29 Michael Marcel Univers ity of 13:23:00 [facility] POCT GLUCOSE (AUTOMATED) 2021-03-29 Michael Marcel Univers ity of 13:23:00 [facility] POCT GLUCOSE (AUTOMATED) 2021-03-29 Michael, Marcel Univers ity of 13:23:00 [facility] MAGNESIUM 2021-03-29 Beba, [facility] of 11:50:00 [facility] BASIC METABOLIC PANEL (NA, K, CL, 2021-03-29 Beba, [facility] of CO2, GLUCOSE, BUN, CREATININE, 11:50:00 [facility] CBC WITH DIFF 2021-03-29 [facility] of 11:50:00 [facility] MAGNESIUM 2021-03-29 Beba, [facility] of 11:50:00 [facility] BASIC METABOLIC PANEL (NA, K, CL, 2021-03-29 [facility] of CO2, GLUCOSE, BUN, CREATININE, 11:50:00 [facility] CBC WITH DIFF 2021-03-29 Beba, [facility] of 11:50:00 [facility] CBC WITH DIFF 2021-03-[address] [facility] of 11:50:00 [facility] BASIC METABOLIC PANEL (NA, K, CL, 2021-03-29 [facility] of CO2, GLUCOSE, BUN, CREATININE, 11:50:00 [facility] MAGNESIUM 2021-03-29 Beba, [facility] 11:50:00 [facility] CBC WITHOUT DIFF 2021-03-28 Beba, [facility] o f 23:01:00 [facility] CBC WITHOUT DIFF 2021-03-28 [facility] 23:01:00 [facility] MISCELLANEOUS SEND OUT TEST 2021-03-28 Fortino Yoder U niversity of 23:01:00 [facility] CBC WITHOUT DIFF 2021-03-28 Beba, [facility] o f 23:01:00 [facility] POCT GLUCOSE (AUTOMATED) 2021-03-28 [facility] 22:16:00 [facility] POCT GLUCOSE (AUTOMATED) 2021-03-28 Michael [facility] ity of 22:16:00 [facility] POCT GLUCOSE (AUTOMATED) 2021-03-28 Michael, Marcel Univers ity of 22:16:00 [facility] MISCELLANEOUS SEND OUT TEST 2021-03-28 Fortino Yoder U niversity of 17:51:00 [facility] POCT GLUCOSE (AUTOMATED) 2021-03-28 Michael, Marcel Univers ity of 17:06:00 [facility] POCT GLUCOSE (AUTOMATED) 2021-03-28 Michael, Marcel Univers ity of 17:06:00 [facility] POCT GLUCOSE (AUTOMATED) 2021-03-28 Michael, Marcel Univers ity of 17:06:00 [facility] POCT GLUCOSE (AUTOMATED) 2021-03-28 Imchael, Marcel Univers ity of 13:11:00 [facility] POCT GLUCOSE (AUTOMATED) 2021-03-28 Michael, Marcel Univers ity of 13:11:00 [facility] POCT GLUCOSE (AUTOMATED) 2021-03-28 Michael, Marcel Univers ity of 13:11:00 [facility] BASIC METABOLIC PANEL (NA, K, CL, 2021-03-28 [facility] CO2, GLUCOSE, BUN, CREATININE, 10:56:00 T [facility] [place]) Branch BASIC METABOLIC PANEL (NA, K, CL, 2021-03-28 [facility] of CO2, GLUCOSE, BUN, CREATININE, 10:56:00 [place] [facility] [place] Branch BASIC METABOLIC PANEL (NA, K, CL, 2021-03-28 [facility] of CO2, GLUCOSE, BUN, CREATININE, 10:56:00 T [facility] [place]) Branch CBC WITHOUT DIFF 2021-03-28 [facility] of 10:46:00 [facility] PROTHROMBIN TIME / INR 2021-03-28 Yana Mitchell rsity of 10:46:00 [facility] ACTIVATED PARTIAL THRMPLAS LASHONDA 2021-03-[address] [facility] of 10:46:00 [facility] CBC WITHOUT DIFF 2021-03-28 [facility] of 10:46:00 [facility] PROTHROMBIN TIME / INR 2021-03-28 Yana Mitchell rsity of 10:46:00 [facility] ACTIVATED PARTIAL THRMPLAS LASHONDA 2021-03-28 [facility] of 10:46:00 [facility] CBC WITHOUT DIFF 2021-03-28 [facility] of 10:46:00 [facility] PROTHROMBIN TIME / INR 2021-03-28 Mitchell Yana [facility] rsity of 10:46:00 [facility] ACTIVATED PARTIAL THRMPLAS LASHONDA 2021-03-[address] [facility] of 10:46:00 [facility] PREPARE PACKED RBC 2021-03-[facility] 04[facility]56:39 [facility] PREPARE PACKED RBC 2021-03-28 [facility] 04:56:39 [facility] PREPARE PACKED RBC 2021-03-28 [facility] 04:56:39 [facility] CBC WITHOUT DIFF 2021-03-28 [facility] 03:36:00 [facility] CBC WITHOUT DIFF 2021-03-28 [facility] 03:36:00 [facility] CBC WITHOUT DIFF 2021-03-28 [facility] 03:36:00 [facility] XR CHEST 1 VW 2021-03-28 [facility] f 03:25:41 [facility] XR CHEST 1 VW 2021-03-28 [facility] f 03:25:41 [facility] XR CHEST 1 VW 2021-03-28 [facility] o f 03:25:41 [facility] BLOOD CULTURE SCREEN 2021-03-27 Beba Pankhuri Universi ty of 22:41:00 [facility] BLOOD CULTURE SCREEN 2021-03-27 Beba Pankhuri Universi ty of 22:41:00 [facility] Branch BLOOD CULTURE SCREEN 2021-03-27 Beba Pankhuri Universi ty of 22:41:00 [facility] BLOOD CULTURE SCREEN 2021-03-27 Ebba Pankhuri Universi ty of 22:29:00 [facility] BLOOD CULTURE SCREEN 2021-03-27 Beba Pankhuri Universi ty of 22:29:00 [facility] BLOOD CULTURE SCREEN 2021-03-[address] [facility] of 22:29:00 [facility] URINALYSIS 2021-03-27 Beba, [facility] of 22:11:00 [facility] URINE CULTURE 2021-03-[address] [facility] of 22:11:00 [facility] URINALYSIS 2021-03-27 Beba [facility] of 22:11:00 [facility] URINE CULTURE 2021-03-27 [facility] of 22:11:00 [facility] URINALYSIS 2021-03-27 [facility] of 22:11:00 [facility] URINE CULTURE 2021-03-[address] [facility] of 22:11:00 [facility] POCT GLUCOSE (AUTOMATED) 2021-03-27 Michael, Marcel Univers ity of 22:10:00 [facility] POCT GLUCOSE (AUTOMATED) 2021-03-27 Michael, Marcel Univers ity of 22:10:00 [facility] POCT GLUCOSE (AUTOMATED) 2021-03-27 Michael, Marcel Univers ity of 22:10:00 [facility] CBC WITHOUT DIFF 2021-03-27 [facility] 21:20:00 [facility] CBC WITHOUT DIFF 2021-03-27 [facility] 21:20:00 [facility] CBC WITHOUT DIFF 2021-03-27 [facility] 21:20:00 [facility] INTUBATION 2021-03-27 Martina Fowler [facility] of 18:51:00 [facility] ABORH CONFIRMATION (LAB ONLY) 2021-03-27 Nela Tidwell [facility] of 16:15:00 [facility] ABORH CONFIRMATION (LAB ONLY) 2021-03-27 [facility]aw [facility] 16:15:00 [facility] ABORH CONFIRMATION (LAB ONLY) 2021-03-27 Yaw Nela Ran [facility] of 16:15:00 [facility] HB ABO GROUPING 2021-03-27 [facility] 16:00:00 [facility] HB ABO GROUPING 2021-03-27 [facility] o f 16:00:00 [facility] HB ABO GROUPING 2021-03-27 [facility] o f 16:00:00 [facility] XR CHEST 1 VW 2021-03-27 Beba, [facility] of 14:20:00 [facility] XR CHEST 1 VW 2021-03-27 Beba, [facility] of 14:20:00 [facility] XR CHEST 1 VW 2021-03-27 Beba, [facility] of 14:20:00 [facility] POCT GLUCOSE (AUTOMATED) 2021-03-27 MichaelAndres rubioun [facility] of 14:03:00 [facility] POCT GLUCOSE (AUTOMATED) 2021-03-27 MichaelAndresun [facility] of 14:03:00 [facility] POCT GLUCOSE (AUTOMATED) 2021-03-27 MichaelAndres rubioun [facility] of 14:03:00 [facility] DIFF CONSULT INTERPRETATION 2021-03-27 Fortino Yoder [facility] of 10:18:00 [facility] CBC WITH DIFF 2021-03-27 Davey Yodernida [place] of 10:18:00 [facility] DIFF CONSULT INTERPRETATION 2021-03-27 Fortino Yoder [facility] of 10:18:00 [facility] CBC WITH DIFF 2021-03-27 Davey Yodernida [place] of 10:18:00 [facility] CBC WITH DIFF 2021-03-27 Davey Yodernida [place] of 10:18:00 [facility] DIFF CONSULT INTERPRETATION 2021-03-27 Fortino Yoder [facility] of 10:18:00 [facility] PROTHROMBIN TIME / INR 2021-03-27 Fortino Yoder [facility] of 09:47:00 [facility] PROTHROMBIN TIME / INR 2021-03-27 Fortino Yoder [facility] of 09:47:00 [facility] PROTHROMBIN TIME / INR 2021-03-27 Fortino Yoder [facility] of 09:47:00 [facility] ANTI-SSA(RO) 2021-03-26 [facility] of 23:24:00 [facility] GALV ONLY - SYPHILIS IGG/IGM 2021-03-26 [facility] of 23:24:00 [facility] ANTI-SSA(RO) 2021-03-26 [facility] of 23:24:00 [facility] GALV ONLY - SYPHILIS IGG/IGM 2021-03-26 [facility] of 23:24:00 [facility] GALV ONLY - SYPHILIS IGG/IGM 2021-03-26 [facility] of 23:24:00 [facility] HAPTOGLOBIN, SERUM 2021-03-26 [facility] of 23:23:00 [facility] ANTI-NUCLEAR ANTIBODY SCREEN 2021-03-26 [facility] of 23:23:00 [facility] HAPTOGLOBIN, SERUM 2021-03-26 [facility] of 23:23:00 [facility] ANTI-NUCLEAR ANTIBODY SCREEN 2021-03-26 [facility] of 23:23:00 [facility] ANTI-NUCLEAR ANTIBODY-PATHOLOGIST 2021-03-26 [facility] of INTERPRETATION 23:23:00 [facility] ANTI-NUCLEAR ANTIBODY SCREEN 2021-03-26 [facility] of 23:23:00 [facility] HAPTOGLOBIN, SERUM 2021-03-26 [facility] of 23:23:00 [facility] POCT GLUCOSE (AUTOMATED) 2021-03-26 [facility] Marcel [facility] of 22:33:00 [facility] POCT GLUCOSE (AUTOMATED) 2021-03-26 [facility], Marcel [facility] of 22:33:00 [facility] POCT GLUCOSE (AUTOMATED) 2021-03-26 [facility], [facility] ity of 22:33:00 [facility] FECAL IMMUNOCHEMICAL TEST 2021-03-26 Fortino Yoder [facility] versity of 21:47:00 [facility] FECAL IMMUNOCHEMICAL TEST 2021-03-26 Fortino Yoder Uni versity of 21:47:00 [facility] FECAL IMMUNOCHEMICAL TEST 2021-03-26 Fortino Yoder Uni versity of 21:47:00 [facility] LACTATE DEHYDROGENASE 2021-03-26 Fortino Yoder [facility] of 20:00:00 [facility] HEPATIC FUNCTION PANEL (04013) 2021-03-26 [facility] (ALB,T.PRO,BILI 20:00:00 [facility] T,BU/BC,ALT,AST,ALK PHOS) Branch LACTATE DEHYDROGENASE 2021-03-[address] [facility] Univers ity of 20:00:00 [facility] HEPATIC FUNCTION PANEL (80816) 2021-03-26 [facility] (ALB,T.PRO,BILI 20:00:00 [facility] T,BU/BC,ALT,AST,ALK PHOS) Branch LACTATE DEHYDROGENASE 2021-03-26 [facility] of 20:00:00 [facility] HEPATIC FUNCTION PANEL ([id number]) 2021-03-26 [facility] of (ALB,T.PRO,BILI 20:00:00 [facility] T,BU/BC,ALT,AST,ALK PHOS) Branch POCT GLUCOSE (AUTOMATED) 2021-03-26 Michael, Marcel [facility] of 18:16:00 [facility] POCT GLUCOSE (AUTOMATED) 2021-03-26 Michael, Marcel [facility] of 18:16:00 [facility] POCT GLUCOSE (AUTOMATED) 2021-03-26 Michael, Marcel [facility] of 18:16:00 [facility] POCT GLUCOSE (AUTOMATED) 2021-03-26 Michael, Marcel [facility] of 14:51:00 [facility] POCT GLUCOSE (AUTOMATED) 2021-03-26 Michael, Marcel [facility] of 14:51:00 [facility] POCT GLUCOSE (AUTOMATED) 2021-03-26 Michael, Marcel [facility] of 14:51:00 [facility] METHYLMALONIC ACID, SERUM 2021-03-26 Beba, Fortino Uni versity of 12:02:00 [facility] CBC WITHOUT DIFF 2021-03-26 [facility] o f 12:02:00 [facility] RETICULOCYTES AUTOMATED 2021-03-26 [facility] rsity of 12:02:00 [facility] METHYLMALONIC ACID, SERUM 2021-03-[address] [facility] Uni versity of 12:02:00 [facility] CBC WITHOUT DIFF 2021-03-26 [facility] o f 12:02:00 [facility] RETICULOCYTES AUTOMATED 2021-03-26 [facility] rsity of 12:02:00 [facility] CBC WITHOUT DIFF 2021-03-26 [facility] o f 12:02:00 [facility] RETICULOCYTES AUTOMATED 2021-03-26 [facility] rsity of 12:02:00 [facility] POCT GLUCOSE (AUTOMATED) 2021-03-25 Michael, Marcel [facility] of 22:48:00 [facility] POCT GLUCOSE (AUTOMATED) 2021-03-25 Michael, Marcel [facility] of 22:48:00 [facility] POCT GLUCOSE (AUTOMATED) 2021-03-25 Andres Concepcionun [facility] of 22:48:00 [facility] CBC WITH DIFF 2021-03-25 Leonela [facility] of 18:24:00 [facility] D-DIMER 2021-03-25 Elnae, [facility] of 18:24:00 [facility] CBC WITH DIFF 2021-03-25 Elnaeem, [facility] of 18:24:00 [facility] D-DIMER 2021-03-25 Elnaeem, [facility] of 18:24:00 [facility] D-DIMER 2021-03-25 Elnaeem, [facility] of 18:24:00 [facility] CBC WITH DIFF 2021-03-25 Elnaeem, [facility] of 18:24:00 [facility] POCT GLUCOSE (AUTOMATED) 2021-03-25 Michael, Marcel [facility] of 18:05:00 [facility] POCT GLUCOSE (AUTOMATED) 2021-03-25 Michael Marcel [facility] of 18:05:00 [facility] POCT GLUCOSE (AUTOMATED) 2021-03-25 Michael Marcel [facility] of 18:05:00 [facility] POCT GLUCOSE (AUTOMATED) 2021-03-25 Maritza Fajardo [facility] of 14:36:00 [facility] POCT GLUCOSE (AUTOMATED) 2021-03-25 Maritza Fajardo [facility] of 14:36:00 [facility] POCT GLUCOSE (AUTOMATED) 2021-03-25 Maritza Fajardo [facility] of 14:36:00 [facility] AMMONIA, PLASMA 2021-03-25 [facility] of 02:55:00 [facility] AMMONIA, PLASMA 2021-03-25 [facility] of 02:55:00 [facility] AMMONIA, PLASMA 2021-03-25 [facility] of 02:55:00 [facility] MR BRAIN W WO CONTRAST 2021-03-25 [facility] Univer sity of 01:57:57 [facility] MR BRAIN W WO CONTRAST 2021-03-25 Beba, [facility] Univer sity of 01:57:57 [facility] MR BRAIN W WO CONTRAST 2021-03-25 Beba, [facility] Univer sity of 01:57:57 [facility] POCT GLUCOSE (AUTOMATED) 2021-03-24 Maritza Fajardo [facility] of 21:53:00 [facility] POCT GLUCOSE (AUTOMATED) 2021-03-24 Maritza Fajardo [facility] of 21:53:00 [facility] POCT GLUCOSE (AUTOMATED) 2021-03-24 Maritza Fajardo [facility] of 21:53:00 [facility] POCT GLUCOSE (AUTOMATED) 2021-03-24 Maritza Fajardo [facility] of 17:34:00 [facility] POCT GLUCOSE (AUTOMATED) 2021-03-24 Maritza Fajardo [facility] of 17:34:00 [facility] POCT GLUCOSE (AUTOMATED) 2021-03-24 Maritza Fajardo ity of 17:34:00 [facility] POCT GLUCOSE (AUTOMATED) 2021-03-24 Maritza Fajardo [facility] of 13:45:00 [facility] POCT GLUCOSE (AUTOMATED) 2021-03-24 Maritza Fajardo [facility] of 13:45:00 [facility] POCT GLUCOSE (AUTOMATED) 2021-03-24 Maritza Fajardo [facility] of 13:45:00 [facility] FERRITIN SERUM 2021-03-24 [facility] 10:11[facility]00 [facility] C-REACTIVE PROTEIN 2021-03-24 [facility] 10:11:00 [facility] THYROID STIMULATING HORMONE 2021-03-24 Davey Yodernida niversity of 10:11:00 [facility] BASIC METABOLIC PANEL (NA, K, CL, 2021-03-24 Jonathan Tom [place] of CO2, GLUCOSE, BUN, CREATININE, 10:11:00 [facility] [place] IRON PANEL 2021-03-24 [facility] 10:11:00 [facility] SEDIMENTATION RATE 2021-03-24 Beba [facility] of 10:11:00 [facility] CBC WITH DIFF 2021-03-24 Vaishali [facility] of 10:11:00 [facility] HIV 1/2 AG-AB WITH REFLEX 2021-03-24 Fortino Yoder Uni vers[facility] of 10:11:00 [facility] FERRITIN SERUM 2021-03-24 Beba, [facility] of 10:11:00 [facility] C-REACTIVE PROTEIN 2021-03-24 Beba, [facility] of 10:11:00 [facility] THYROID STIMULATING HORMONE 2021-03-24 BebaFortino armas U niversity of 10:11:00 [facility] BASIC METABOLIC PANEL (NA, K, CL, 2021-03-24 [facility] CO2, GLUCOSE, BUN, CREATININE, 10:11:00 [facility] [place] IRON PANEL 2021-03-24 Davey Yodernida [place] of 10:11:00 [facility] SEDIMENTATION RATE 2021-03-24 Davey Yodernida [place] of 10:11:00 [facility] CBC WITH DIFF 2021-03-24 [facility] 10:11:00 [facility] HIV 1/2 AG-AB WITH REFLEX 2021-03-24 [facility] of 10:11:00 [facility] CBC WITH DIFF 2021-03-24 Vaishali [facility] of 10:11:00 [facility] BASIC METABOLIC PANEL (NA, K, CL, 2021-03-24 [facility] CO2, GLUCOSE, BUN, CREATININE, 10:11:00 T [facility] [place]) Branch SEDIMENTATION RATE 2021-03-24 Davey Yodernida [place] of 10:11:00 [facility] C-REACTIVE PROTEIN 2021-03-24 [facility] 10:11:00 [facility] THYROID STIMULATING HORMONE 2021-03-24 Fortino Yoder [facility] of 10:11:00 [facility] IRON PANEL 2021-03-24 [facility] 10:11:00 [facility] FERRITIN SERUM 2021-03-24 [facility] 10:11:00 [facility] HIV 1/2 AG-AB WITH REFLEX 2021-03-24 Fortino Yoder Uni versity of 10:11:00 [facility] POCT GLUCOSE (AUTOMATED) 2021-03-24 Maritza Fajardo [facility] of 02:23:00 [facility] POCT GLUCOSE (AUTOMATED) 2021-03-24 Maritza Fajardo [facility] of 02:23:00 [facility] POCT GLUCOSE (AUTOMATED) 2021-03-24 Maritza Fajardo [facility] of 02:23:00 [facility] XR ABDOMEN 1 VW 2021-03-23 Jonathan Tom [place] of 23:05:26 [facility] XR ABDOMEN 1 VW 2021-03-23 Jonathan Tom [place] of 23:05:26 [facility] XR ABDOMEN 1 VW 2021-03-23 [facility] 23:05:26 [facility] POCT GLUCOSE (AUTOMATED) 2021-03-23 Janel Fajardod [facility] of 23:00:00 [facility] POCT GLUCOSE (AUTOMATED) 2021-03-23 Abundio Fajardohammad Univers ity of 23:00:00 [facility] POCT GLUCOSE (AUTOMATED) 2021-03-23 Tana Fajardomad Univers ity of 23:00:00 [facility] POCT GLUCOSE (AUTOMATED) 2021-03-23 Tana Fajardomad [facility] it[facility] of 17:38:00 [facility] POCT GLUCOSE (AUTOMATED) 2021-03-23 Tana Fajardomad [facility] ity of 17:38:00 [facility] POCT GLUCOSE (AUTOMATED) 2021-03-23 Janel Fajardod [facility] it[facility] of 17:38:00 [facility] TRANSTHORACIC ECHO (TTE) COMPLETE 2021-03-[facility] W/ CONTRAST 16:40:00 [facility] TRANSTHORACIC ECHO (TTE) COMPLETE 2021-03-23 varsha [facility] of W/ CONTRAST 16:40:00 [facility] TRANSTHORACIC ECHO (TTE) COMPLETE 2021-03-23 [facility] W/ CONTRAST 16:40:00 [facility] POCT GLUCOSE (AUTOMATED) 2021-03-23 Janel Fajardod [facility] of 14:16:00 [facility] POCT GLUCOSE (AUTOMATED) 2021-03-23 Tana Fajardomad [facility] it[facility] of 14:16:00 [facility] POCT GLUCOSE (AUTOMATED) 2021-03-23 Janel Fajardod [facility] of 14:16:00 [facility] POCT GLUCOSE (AUTOMATED) 2021-03-23 Tana Fajardomad [facility] of 02:07:00 [facility] POCT GLUCOSE (AUTOMATED) 2021-03-23 Janel Fajardod [facility] 02:07:00 [facility] 2021-03-23 Maritza Fajardo [facility] ity of 02:07:00 [facility] ELECTROENCEPHALOGRAM 2021-03-23 Zuly [facility] of 00:00:00 [facility] ELECTROENCEPHALOGRAM 2021-03-23 Zuly [facility] of 00:00:00 [facility] ELECTROENCEPHALOGRAM 2021-03-23 Zuly [facility] of 00:00:00 [facility] POCT GLUCOSE (AUTOMATED) 2021-03-22 Janel Fajardod [facility] it[facility] of 22:19:00 [facility] POCT GLUCOSE (AUTOMATED) 2021-03-22 Tana Fajardomad [facility] ity of 22:19:00 [facility] POCT GLUCOSE (AUTOMATED) 2021-03-22 Janel Fajardod [facility] it[facility] of 22:19:00 [facility] POCT GLUCOSE (AUTOMATED) 2021-03-22 Janel Fajardod [facility] it[facility] of 17:11:00 [facility] POCT GLUCOSE (AUTOMATED) 2021-03-22 Tana Fajardomad [facility] ity of 17:11:00 [facility] POCT GLUCOSE (AUTOMATED) 2021-03-22 Janel Fajardod [facility] ity of 17:11:00 [facility] CT ANGIOGRAM HEAD 2021-03-22 [facility] o f 16:28:00 [facility] CT ANGIOGRAM NECK 2021-03-22 [facility] o f 16:28:00 [facility] CT ANGIOGRAM HEAD 2021-03-22 [facility] o f 16:28:00 [facility] CT ANGIOGRAM NECK 2021-03-22 [facility] o f 16:28:00 [facility] CT ANGIOGRAM HEAD 2021-03-22 [facility] o f 16:28:00 [facility] CT ANGIOGRAM NECK 2021-03-22 [facility] o f 16:28:00 [facility] POCT GLUCOSE (AUTOMATED) 2021-03-22 Maritza Fajardo [facility] it[facility] of 13:32:00 [facility] POCT GLUCOSE (AUTOMATED) 2021-03-22 Maritza Fajardo [facility] ity of 13:32:00 [facility] POCT GLUCOSE (AUTOMATED) 2021-03-22 Maritza Fajardo [facility] of 13:32:00 [facility] BASIC METABOLIC PANEL (NA, K, CL, 2021-03-22 [facility] of CO2, GLUCOSE, BUN, CREATININE, 09:38:00 [facility] [place] VERIFYNOW ASPIRIN TEST 2021-03-22 [facility] 09:38:00 [facility] BASIC METABOLIC PANEL (NA, K, CL, 2021-03-22 [facility] of CO2, GLUCOSE, BUN, CREATININE, 09:38:00 [facility] VERIFYNOW ASPIRIN TEST 2021-03-22 E[facility], [facility] of 09:38:00 [facility] VERIFYNOW ASPIRIN TEST 2021-03-22 [facility] 09:38:00 [facility] BASIC METABOLIC PANEL (NA, K, CL, 2021-03-22 [facility] of CO2, GLUCOSE, BUN, CREATININE, 09:38:00 [facility] [place] POCT GLUCOSE (AUTOMATED) 2021-03-22 Maritza Fajardo [facility] of 02:17:00 [facility] POCT GLUCOSE (AUTOMATED) 2021-03-22 Maritza Fajardo [facility] of 02:17:00 [facility] POCT GLUCOSE (AUTOMATED) 2021-03-22 Janel Fajardod [facility] of 02:17:00 [facility] POCT GLUCOSE (AUTOMATED) 2021-03-21 Mairtza Fajardo [facility] ity of 22:40:00 [facility] POCT GLUCOSE (AUTOMATED) 2021-03-21 Maritza Fajardo [facility] of 22:40:00 [facility] POCT GLUCOSE (AUTOMATED) 2021-03-21 Janel Fajardod [facility] of 22:40:00 [facility] POCT GLUCOSE (AUTOMATED) 2021-03-21 Janel Fajardod [facility] it[facility] of 17:26:00 [facility] POCT GLUCOSE (AUTOMATED) 2021-03-21 Abundio Fajardohammad Univers ity of 17:26:00 [facility] POCT GLUCOSE (AUTOMATED) 2021-03-21 Tana Salas [facility] ity of 17:26:00 [facility] POCT GLUCOSE (AUTOMATED) 2021-03-21 Tana Fajardomad Univers ity of 13:30:00 [facility] POCT GLUCOSE (AUTOMATED) 2021-03-21 Tana, Salas [facility] ity of 13:30:00 [facility] POCT GLUCOSE (AUTOMATED) 2021-03-21 Tana Salas [facility] ity of 13:30:00 [facility] BASIC METABOLIC PANEL (NA, K, CL, 2021-03-21 [facility] of CO2, GLUCOSE, BUN, CREATININE, 10:41:00 [facility] [place] [facility] CBC WITH DIFF 2021-03-21 [facility] o f 10:41:00 [facility] BASIC METABOLIC PANEL (NA, K, CL, 2021-03-21 [facility] of CO2, GLUCOSE, BUN, CREATININE, 10:41:00 [facility] [place]) Branch CBC WITH DIFF 2021-03-21 [facility] o f 10:41:00 [facility] BASIC METABOLIC PANEL (NA, K, CL, 2021-03-21 [facility] of CO2, GLUCOSE, BUN, CREATININE, 10:41:00 [facility] [place] CBC WITH DIFF 2021-03-21 [facility] o f 10:41:00 [facility] POCT GLUCOSE (AUTOMATED) 2021-03-21 Janel Fajardod [facility] of 02:03:00 [facility] POCT GLUCOSE (AUTOMATED) 2021-03-21 Janel Fajardod [facility] of 02:03:00 [facility] POCT GLUCOSE (AUTOMATED) 2021-03-21 Maritza Fajardo [facility] ity of 02:03:00 [facility] BLOOD CULTURE SCREEN 2021-03-21 Mitchell Yana [facility] ity of 01:44:00 [facility] BLOOD CULTURE SCREEN 2021-03-21 Yana Mitchell [facility] ity of 01:44:00 [facility] BLOOD CULTURE SCREEN 2021-03-21 Yana Mitchell [facility] ity of 01:44:00 [facility] BLOOD CULTURE SCREEN 2021-03-21 Yana Mitchell [facility] ity of 00:38:00 [facility] BLOOD CULTURE SCREEN 2021-03-21 Katty Mitchella [facility] ity of 00:38:00 [facility] BLOOD CULTURE SCREEN 2021-03-21 varsha Yana Acuna Univers ity of 00:38:00 [facility] XR CHEST 1 VW 2021-03-21 Mitchell [facility] o f 00:17:00 [facility] XR CHEST 1 VW 2021-03-21 Mitchell [facility] o f 00:17:00 [facility] XR CHEST 1 VW 2021-03-21 Mitchell [facility] o f 00:17:00 [facility] URINALYSIS 2021-03-21 Mitchell [facility] o f 00:16:00 [facility] URINALYSIS 2021-03-21 Mitchell [facility] o f 00:16:00 [facility] URINALYSIS 2021-03-21 Mitchell [facility] o f 00:16:00 [facility] POCT GLUCOSE (AUTOMATED) 2021-03-20 Maritza Fajardo [facility] ity of 22:04:00 [facility] POCT GLUCOSE (AUTOMATED) 2021-03-20 Maritza Fajardo [facility] of 22:04:00 [facility] POCT GLUCOSE (AUTOMATED) 2021-03-20 Maritza Fajardo [facility] ity of 22:04:00 [facility] POCT GLUCOSE (AUTOMATED) 2021-03-20 Lamine Duran [facility] ity of 17:46:00 [facility] POCT GLUCOSE (AUTOMATED) 2021-03-20 Lamine Duran [facility] ity of 17:46:00 [facility] POCT GLUCOSE (AUTOMATED) 2021-03-20 Lamine Duran [facility] of 17:46:00 [facility] POCT GLUCOSE (AUTOMATED) 2021-03-20 Lamine Duran [facility] of 13:40:00 [facility] POCT GLUCOSE (AUTOMATED) 2021-03-20 Lamine Duran [facility] of 13:40:00 [facility] POCT GLUCOSE (AUTOMATED) 2021-03-20 Lamine Duran [facility] it[facility] of 13:40:00 [facility] BASIC METABOLIC PANEL (NA, K, CL, 2021-03-20 [facility], [facility] CO2, GLUCOSE, BUN, CREATININE, 10:52:00 T [facility]) Branch CBC WITH DIFF 2021-03-20 Eduard, [facility] of 10:52:00 [facility] BASIC METABOLIC PANEL (NA, K, CL, 2021-03-20 Eduard, [facility] of CO2, GLUCOSE, BUN, CREATININE, 10:52:00 [facility] CBC WITH DIFF 2021-03-20 Eduard, [facility] of 10:52:00 [facility] CBC WITH DIFF 2021-03-20 Eduard, [facility] of 10:52:00 [facility] BASIC METABOLIC PANEL (NA, K, CL, 2021-03-20 [facility], [facility] CO2, GLUCOSE, BUN, CREATININE, 10:52:00 T [facility]) Branch POCT GLUCOSE (AUTOMATED) 2021-03-19 Lamine Duran [facility] of 23:19:00 [facility] POCT GLUCOSE (AUTOMATED) 2021-03-19 Lamine Duran [facility] of 23:19:00 [facility] POCT GLUCOSE (AUTOMATED) 2021-03-19 Lamine Duran [facility] of 23:19:00 [facility] [facility] POCT GLUCOSE (AUTOMATED) 2021-03-19 Lamine Duran [employer] [facility] of 17:30:00 [facility] POCT GLUCOSE (AUTOMATED) 2021-03-19 Lamine Duran [facility] of 17:30:00 [facility] POCT GLUCOSE (AUTOMATED) 2021-03-19 Lamine Duran [facility] of 17:30:00 [facility] POCT GLUCOSE (AUTOMATED) 2021-03-19 Lamine Duran [facility] of 13:46:00 [facility] POCT GLUCOSE (AUTOMATED) 2021-03-19 Lamine Duran [facility] of 13:46:00 [facility] POCT GLUCOSE (AUTOMATED) 2021-03-19 Lamine Duran [facility] of 13:46:00 [facility] BASIC METABOLIC PANEL (NA, K, CL, 2021-03-19 Eduard, [facility] CO2, GLUCOSE, BUN, CREATININE, 09:16:00 [facility] BASIC METABOLIC PANEL (NA, K, CL, 2021-03-19 Eduard, [facility] CO2, GLUCOSE, BUN, CREATININE, 09:16:00 [facility] BASIC METABOLIC PANEL (NA, K, CL, 2021-03-19 Eduard, [facility] CO2, GLUCOSE, BUN, CREATININE, 09:16:00 [facility] POCT GLUCOSE (AUTOMATED) 2021-03-18 Lamine Duran [facility] of 23:19:00 [facility] POCT GLUCOSE (AUTOMATED) 2021-03-18 Lamine Duran [facility] of 23:19:00 [facility] POCT GLUCOSE (AUTOMATED) 2021-03-18 Lamine Duran [facility] of 23:19:00 [facility] POCT GLUCOSE (AUTOMATED) 2021-03-18 Lamine Duran [facility] of 17:40:00 [facility] Branch POCT GLUCOSE (AUTOMATED) 2021-03-18 Lamine Duran [facility] of 17:40:00 [facility] Branch POCT GLUCOSE (AUTOMATED) 2021-03-18 Lamine Duran [facility] of 17:40:00 [facility] POCT GLUCOSE (AUTOMATED) 2021-03-18 Lamine Duran [facility] of 13:50:00 [facility] POCT GLUCOSE (AUTOMATED) 2021-03-18 Lamine Duran [facility] of 13:50:00 [facility] POCT GLUCOSE (AUTOMATED) 2021-03-18 Lamine Duran [facility] of 13:50:00 [facility] MAGNESIUM 2021-03-18 Carline Chapa of 09:50:00 [facility] BASIC METABOLIC PANEL (NA, K, CL, 2021-03-18 Eduard, Autumn armas [place] of CO2, GLUCOSE, BUN, CREATININE, 09:50:00 [facility] CBC WITH DIFF 2021-03-18 Carline Chapa of 09:50:00 [facility] MAGNESIUM 2021-03-18 Carline Chapa [place] of 09:50:00 [facility] BASIC METABOLIC PANEL (NA, K, CL, 2021-03-18 Eduard, Autumn armas [place] of CO2, GLUCOSE, BUN, CREATININE, 09:50:00 [facility] CBC WITH DIFF 2021-03-18 Carline Chapa [place] of 09:50:00 [facility] CBC WITH DIFF 2021-03-18 Eduard, Carline [place] of 09:50:00 [facility] BASIC METABOLIC PANEL (NA, K, CL, 2021-03-18 Autumn Chapa [place] of CO2, GLUCOSE, BUN, CREATININE, 09:50:00 [facility] [place] MAGNESIUM 2021-03-18 Carline Chapa [place] of 09:50:00 [facility] POCT GLUCOSE (AUTOMATED) 2021-03-17 Lamine Duran [facility] of 22:42:00 [facility] POCT GLUCOSE (AUTOMATED) 2021-03-17 Lamine Duran [facility] of 22:42:00 [facility] POCT GLUCOSE (AUTOMATED) 2021-03-17 Lamine Duran [facility] of 22:42:00 [facility] POCT GLUCOSE (AUTOMATED) 2021-03-17 Lamine Duran [facility] of 17:52:00 [facility] POCT GLUCOSE (AUTOMATED) 2021-03-17 Lamine Duran [facility] of 17:52:00 [facility] POCT GLUCOSE (AUTOMATED) 2021-03-17 Lamine Duran [facility] of 17:52:00 [facility] POCT GLUCOSE (AUTOMATED) 2021-03-17 Lamine Duran [facility] of 13:41:00 [facility] POCT GLUCOSE (AUTOMATED) 2021-03-17 Lamine Duran [facility] ity of 13:41:00 [facility] POCT GLUCOSE (AUTOMATED) 2021-03-17 Lamine Duran [facility] ity of 13:41:00 [facility] PHOSPHORUS 2021-03-17 Lamine Duran [place] of 10:23:00 [facility] MAGNESIUM 2021-03-17 Roger [facility] of 10:23:00 [facility] BASIC METABOLIC PANEL (NA, K, CL, 2021-03-17 Barak Duran [facility] of CO2, GLUCOSE, BUN, CREATININE, 10:23:00 [facility] [place] LIPID PANEL (59392)(TOTAL 2021-03-17 Silas Perkins [facility] ersity of CHOLESTEROL, TRIGLYCERIDES, HDL) 10:23:00 [facility] CBC WITH DIFF 2021-03-17 Lamine Duran [place] of 10:23:00 [facility] PHOSPHORUS 2021-03-17 Lamine Duran [place] of 10:23:00 [facility] MAGNESIUM 2021-03-17 [facility] 10:23[facility]00 [facility] BASIC METABOLIC PANEL (NA, K, CL, 2021-03-17 Barak Duran [place] of CO2, GLUCOSE, BUN, CREATININE, 10:23:00 [facility] [place] [facility] LIPID PANEL (80389)(TOTAL 2021-03-17 [facility] of CHOLESTEROL, TRIGLYCERIDES, HDL) 10:23:00 [facility] CBC WITH DIFF 2021-03-17 Lamine Duran [place] of 10:23:00 [facility] LIPID PANEL ([id number])(TOTAL 2021-03-17 [facility] of CHOLESTEROL, TRIGLYCERIDES, HDL) 10:23:00 [facility] BASIC METABOLIC PANEL (NA, K, CL, 2021-03-17 Barak Duran [facility] of CO2, GLUCOSE, BUN, CREATININE, 10:23:00 [facility] [place] CBC WITH DIFF 2021-03-17 Lamine Duran [place] of 10:23:00 [facility] MAGNESIUM 2021-03-17 Lamine Duran of 10:23:00 [facility] PHOSPHORUS 2021-03-17 Lamine Duran of 10:23:00 [facility] POCT GLUCOSE (AUTOMATED) 2021-03-16 Lamine Duran [facility] of 22:46:00 [facility] POCT GLUCOSE (AUTOMATED) 2021-03-16 Lamine Duran [facility] of 22:46:00 [facility] POCT GLUCOSE (AUTOMATED) 2021-03-16 Lamine Duran [facility] of 22:46:00 [facility] POCT GLUCOSE (AUTOMATED) 2021-03-16 Lamine Duran [facility] of 18:05:00 [facility] POCT GLUCOSE (AUTOMATED) 2021-03-16 Lamine Duran [facility] ity of 18:05:00 [facility] POCT GLUCOSE (AUTOMATED) 2021-03-16 Lamine Duran [facility] ity of 18:05:00 [facility] BLOOD CULTURE SCREEN 2021-03-16 Saqib Hoffman [place] of 17:10:00 [facility] BLOOD CULTURE SCREEN 2021-03-16 Saqib Hoffman [place] of 17:10:00 [facility] BLOOD CULTURE SCREEN 2021-03-16 Saqib Hoffman [place] of 17:10:00 [facility] BLOOD CULTURE SCREEN 2021-03-16 Saqib Hoffman [place] of 17:04:00 [facility] BASIC METABOLIC PANEL (NA, K, CL, 2021-03-16 Barak Duran [place] of CO2, GLUCOSE, BUN, CREATININE, 17:04:00 [facility] [place] BLOOD CULTURE SCREEN 2021-03-16 Saqib Hoffman [place] of 17:04:00 [facility] BASIC METABOLIC PANEL (NA, K, CL, 2021-03-16 Barak Duran [facility] of CO2, GLUCOSE, BUN, CREATININE, 17:04:00 [facility] [place] [facility] BLOOD CULTURE SCREEN 2021-03-16 Saqib Hoffman [place] of 17:04:00 [facility] BASIC METABOLIC PANEL (NA, K, CL, 2021-03-16 Barak Duran [facility] of CO2, GLUCOSE, BUN, CREATININE, 17:04:00 [facility] [place] POCT GLUCOSE (AUTOMATED) 2021-03-16 Lamine Duran [facility] of 13:40:00 [facility] POCT GLUCOSE (AUTOMATED) 2021-03-16 Lamine Duran [facility] of 13:40:00 [facility] POCT GLUCOSE (AUTOMATED) 2021-03-16 Lamine Duran [facility] of 13:40:00 [facility] MAGNESIUM 2021-03-16 Saqib Hoffman [place] of 11:11:00 [facility] HEPATIC FUNCTION PANEL (69426) 2021-03-16 Lamine Duran [facility] of (ALB,T.PRO,BILI 11:11:00 [place] [facility] T,BU/BC,ALT,AST,ALK PHOS) Branch BASIC METABOLIC PANEL (NA, K, CL, 2021-03-16 Barak Duran [facility] of CO2, GLUCOSE, BUN, CREATININE, 11:11:00 [facility]) Branch CBC WITH DIFF 2021-03-16 Lamine Duran of 11:11:00 [facility] GLYCOSYLATED HEMOGLOBIN (A1C) 2021-03-16 Lamine Duran Un iversity of 11:11:00 [facility] PROCALCITONIN 2021-03-16 Saqib Hoffman [place] of 11:11:00 [facility] MAGNESIUM 2021-03-16 Saqib Hoffman [place] of 11:11:00 [facility] HEPATIC FUNCTION PANEL ([id number]) 2021-03-16 Lamine Duran niversity of (ALB,T.PRO,BILI 11:11:00 [facility] T,BU/BC,ALT,AST,ALK PHOS) Branch BASIC METABOLIC PANEL (NA, K, CL, 2021-03-16 Barak Duran [facility] of CO2, GLUCOSE, BUN, CREATININE, 11:11:00 [facility]) Branch CBC WITH DIFF 2021-03-16 Lamine Duran of 11:11:00 [facility] GLYCOSYLATED HEMOGLOBIN (A1C) 2021-03-16 Lamine Duran Un iversity of 11:11:00 [facility] PROCALCITONIN 2021-03-16 Saqib Hoffman [place] of 11:11:00 [facility] CBC WITH DIFF 2021-03-16 Lamine Duran [place] of 11:11:00 [facility] BASIC METABOLIC PANEL (NA, K, CL, 2021-03-16 Barak Duran [facility] of CO2, GLUCOSE, BUN, CREATININE, 11:11:00 [facility] [place] HEPATIC FUNCTION PANEL ([id number]) 2021-03-16 Lamine Duran niversity of (ALB,T.PRO,BILI 11:11:00 [facility],BU/BC,ALT,AST,ALK PHOS) [place] PROCALCITONIN 2021-03-16 Yasmin [facility] of 11:11:00 [facility] MAGNESIUM 2021-03-16 [facility] of 11:11:00 [facility] GLYCOSYLATED HEMOGLOBIN (A1C) 2021-03-16 Lamine Duran iversity of 11:11:00 [facility] CT ABDOMEN PELVIS W WO CONTRAST 2021-03-16 Boubacar carranza [place] of 04:30:06 [facility] CT THORAX W WO CONTRAST 2021-03-16 [facility] 04:30:06 [facility] CT ABDOMEN PELVIS W WO CONTRAST 2021-03-16 [facility] [place] of 04:30:06 [facility] CT THORAX W WO CONTRAST 2021-03-16 [facility] of 04:30:06 [facility] CT THORAX W WO CONTRAST 2021-03-[address] [facility] sity of 04:30:06 [facility] CT ABDOMEN PELVIS W WO CONTRAST 2021-03-16 [facility] [place] of 04:30:06 [facility] POCT GLUCOSE (AUTOMATED) 2021-03-15 Lamine Duran [facility] ity of 21:34:00 [facility] POCT GLUCOSE (AUTOMATED) 2021-03-15 Lamine Duran [facility] of 21:34:00 [facility] POCT GLUCOSE (AUTOMATED) 2021-03-15 Lamine Duran [facility] ity of 21:34:00 [facility] URINALYSIS 2021-03-15 Cy Larsen [place] of 18:28:00 [facility] URINALYSIS 2021-03-15 Cy Larsen of 18:28:00 [facility] URINALYSIS 2021-03-15 Cy Larsen of 18:28:00 [facility] Branch CT HEAD WO CONTRAST 2021-03-15 Cy Larsen o f 18:15:42 [facility] [address] HEAD WO CONTRAST 2021-03-15 Chava, Cy Abraham o f 18:15:[address] [facility] [address] HEAD WO CONTRAST 2021-03-15 Chava, Cy Samaniego [place] o f 18:15:42 [facility] XR CHEST 1 VW 2021-03-15 Cy Larsen of 18:15:12 [facility] XR CHEST 1 VW 2021-03-15 Cy Larsen of 18:15:12 [facility] XR CHEST 1 VW 2021-03-15 Cy Larsen [place] of 18:15:12 [facility] CONSENT/REFUSAL FOR DIAGNOSIS AND 2021-03-15 Doctor Tenzin cardona [facility] 17:58:44 [place] [facility] CONSENT/REFUSAL FOR DIAGNOSIS AND 2021-03-15 Doctor Tenzin cardona [facility] 17:58:44 [place] [facility] CONSENT/REFUSAL FOR DIAGNOSIS AND 2021-03-15 [facility] 17:58[facility]44 [place] [facility] COVID-19 (ID NOW RAPID TESTING) 2021-03-15 Cy Larsen [place] of 17:58:00 [facility] LAB ONLY COVID INTERPRETATION 2021-03-15 Cy Larsen Un iversity of 17:58:00 [facility] COVID-19 (ID NOW RAPID TESTING) 2021-03-15 Cy Larsen [place] of 17:58:00 [facility] LAB ONLY COVID INTERPRETATION 2021-03-15 Cy Larsen Un iversity of 17:58:00 [facility] COVID-19 (ID NOW RAPID TESTING) 2021-03-15 Cy Larsen [place] of 17:58:00 [facility] LAB ONLY COVID INTERPRETATION 2021-03-15 Cy Larsen Un iversity of 17:58:00 [facility] BLOOD CULTURE SCREEN 2021-03-15 Cy Larsen [place] of 17:57:00 [facility] BLOOD CULTURE WORKUP 2021-03-15 Cy Larsen of 17:57:00 [facility] GRAM POSITIVE BLOOD PATHOGENS DNA 2021-03-15 Cy Larsen University of PROBE-AEROBIC 17:57:00 [facility] BLOOD CULTURE SCREEN 2021-03-15 Cy Larsen [place] of 17:57:00 [facility] BLOOD CULTURE WORKUP 2021-03-15 Cy Larsen [place] of 17:57:00 [facility] GRAM POSITIVE BLOOD PATHOGENS DNA 2021-03-15 Cy Larsen University of PROBE-AEROBIC 17:57:00 [facility] BLOOD CULTURE SCREEN 2021-03-15 Cy Larsen [place] of 17:57:00 [facility] BLOOD CULTURE WORKUP 2021-03-15 Cy Larsen of 17:57:00 [facility] GRAM POSITIVE BLOOD PATHOGENS DNA 2021-03-15 Cy Larsen University of PROBE-AEROBIC 17:57:00 [facility] PHOSPHORUS 2021-03-15 Lamine Duran [place] of 17:56:00 [facility] MAGNESIUM 2021-03-15 Cy Larsen [place] of 17:56:00 [facility] TROPONIN I 2021-03-15 Cy Larsen [place] of 17:56:00 [facility] COMP. METABOLIC PANEL ([id number]) 2021-03-15 Cy Larsen Un iversity of 17:56:00 [facility] DIFF CONSULT INTERPRETATION 2021-03-15 Saqib Hoffman Univ ersity of 17:56:00 [facility] CBC WITH DIFF 2021-03-15 Cy Larsen [place] of 17:56:00 [facility] N-TERMINAL PRO-BNP 2021-03-15 Cy Larsen [place] of 17:56:00 [facility] AC PANEL 21 + LACTIC ACID 2021-03-15 Cy Larsen Univer sity of 17:56:00 [facility] PHOSPHORUS 2021-03-15 Lamine Duran [place] of 17:56:00 [facility] MAGNESIUM 2021-03-15 Cy Larsen [place] of 17:56:00 [facility] TROPONIN I 2021-03-15 Cy Larsen [place] of 17:56:00 [facility] COMP. METABOLIC PANEL ([id number]) 2021-03-15 Cy Larsen Un iversity of 17:56:00 [facility] DIFF CONSULT INTERPRETATION 2021-03-15 Saqib Hoffman [facility] ersity of 17:56:00 [facility] CBC WITH DIFF 2021-03-15 Cy Larsen of 17:56:00 [facility] N-TERMINAL PRO-BNP 2021-03-15 Cy Larsen of 17:56:00 [facility] AC PANEL 21 + LACTIC ACID 2021-03-15 Cy Larsen Univer sity of 17:56:00 [facility] N-TERMINAL PRO-BNP 2021-03-15 Cy Larsen of 17:56:00 [facility] CBC WITH DIFF 2021-03-15 Cy Larsen [place] of 17:56:00 [facility] COMP. METABOLIC PANEL ([id number]) 2021-03-15 Cy Larsen Un iversity of 17:56:00 [facility] MAGNESIUM 2021-03-15 Cy Larsen [place] of 17:56:00 [facility] TROPONIN I 2021-03-15 Cy Larsen [place] of 17:56:00 [facility] AC PANEL 21 + LACTIC ACID 2021-03-15 Cy Larsen Univer sity of 17:56:00 [facility] PHOSPHORUS 2021-03-15 Lamine Duran [place] of 17:56:00 [facility] DIFF CONSULT INTERPRETATION 2021-03-15 Saqib Hoffman [facility] ersity of 17:56:00 [facility] HB ECG ROUTINE & RHYTHM STRIP 2021-03-15 Cy Larsen Un iversity of 17:50:45 [facility] HB ECG ROUTINE & RHYTHM STRIP 2021-03-15 Cy Larsen Un iversity of 17:50:45 [facility] HB ECG ROUTINE & RHYTHM STRIP 2021-03-15 Cy Larsen Un iversity of 17:50:45 [facility] HOSPITAL ADMISSION 2021-03-15 Doctor Unasscelestina, [facility] 06:01:00 [place] [facility] EMERGENCY DEPARTMENT DOCUMENTS 2021-03-15 Doctor Unasscelestina , [facility] 06:01:00 [place] [facility] HOSPITAL ADMISSION 2021-03-15 Doctor Unassigned, [facility] 06:01:00 [place] [facility] HOSPITAL ADMISSION 2021-03-15 Doctor Unassigned, [facility] 06:01:00 [place] [facility] URINALYSIS 2021-03-12 Call [facility] of 21:28:00 [facility] XR CHEST 1 VW 2021-03-12 Keenan, [facility] of 19:27:[address] [facility] [address] HEAD WO CONTRAST 2021-03-12 Keenan, [facility] o f 19:09:59 [facility] CBC WITH DIFF 2021-03-12 Call [facility] of 18:55:00 [facility] COMP. METABOLIC PANEL ([id number]) 2021-03-12 Antonio Keenan iversity of 18:55:00 [facility] N-TERMINAL PRO-BNP 2021-03-12 [facility] of 18:55:00 [facility] TROPONIN I 2021-03-12 Keenan, [facility] of 18:55:00 [facility] COVID-19 (ID NOW RAPID TESTING) 2021-03-12 Keenan, [facility] of 18:55:00 [facility] LAB ONLY COVID INTERPRETATION 2021-03-12 Antonio Keenan iversity of 18:55:00 [facility] HB ECG ROUTINE & RHYTHM STRIP 2021-03-12 Antonio Keenan iversity of 18:44:43 [facility] NOTICE OF PRIVACY PRACTICES 2021-03-12 Doctor Unasscelestina, U niversity of 18:40:43 [place] [facility] CONSENT/REFUSAL FOR DIAGNOSIS AND 2021-03-12 Doctor Cadyssgénesis cardona, [facility] TREATMENT 18:38:09 [place] [facility] INSURANCE CORRESPONDENCE 2021-03-10 Doctor Unassigned, Univ ersity of 06:01:00 [place] [facility] INSURANCE CORRESPONDENCE 2021-03-09 Doctor Unassigned, Univ ersity of 06:01:00 [place] [facility] HYPERCOAGULABLE EVALUATION-LT 2021-03-03 Jia Santamaria Un iversity of BLUE 16:12:00 [facility] HYPERCOAGULABLE EVALUATION - SST 2021-03-03 Jia Santamaria [facility] 16:12:00 [facility] HYPERCOAGULABLE EVALUATION-LAV 2021-03-03 Jia Santamaria U niversity of 16:12:00 [facility] BASIC METABOLIC PANEL (NA, K, CL, 2021-03-03 Jia Santamaria [place] of CO2, GLUCOSE, BUN, CREATININE, 16:12:00 [facility] VITAMIN B1 (THIAMINE), WHOLE 2021-03-03 Jia Santamaria Uni versity of BLOOD 16:12:00 [facility] HEMATOCRIT 2021-03-03 Jia Santamaria [facility] 16:12:00 [facility] RPR (QUANTITATIVE) 2021-03-03 Jia Santamaria [facility] 16:12:00 [facility] VITAMIN B12, LEVEL 2021-03-03 Radha Jia [facility] 16:12:00 [facility] HYPERCOAGULABLE TESTS AND 2021-03-[address] [facility] sity of EVALUATION 16:12:00 [facility] SEDIMENTATION RATE 2021-03-03 Jia Santamaria [place] of 16:12:00 [facility] C-REACTIVE PROTEIN 2021-03-03 Jia Santamaria [place] of 16:12:00 [facility] FOLATE 2021-03-03 Jia Santamaria [place] of 16:12:00 [facility] WB FOLATE 2021-03-03 Jia Santamaria [place] of 16:12:00 [facility] FACTOR 5 LEIDEN 2021-03-03 Jia Santamaria [place] of 16:12:00 [facility] FACTOR 2 [id number] MUTATION 2021-03-03 [facility] 16:12:00 [facility] ANTICARDIOLIPIN ANTIBODIES 2021-03-03 Jia [facility] rs[facility] of 16:12:00 [facility] ANTI-B2 GLYCOPROTEIN I AB 2021-03-03 J[facility] of 16:12:00 [facility] PROTEIN C ACTIVITY 2021-03-03 Jia Santamaria [place] of 16:12:00 [facility] FREE PROTEIN S 2021-03-03 Radha Jia [place] of 16:12:00 [facility] ANTITHROMBIN ACTIVITY 2021-03-03 Radha Jia [place] of 16:12:00 [facility] FIBRINOGEN 2021-03-03 Radha Jia [place] of 16:12:00 [facility] MISCELLANEOUS SEND OUT TEST 2021-03-03 Jia Santamaria [facility] ersity of 16:12:00 [facility] DIAGNOSTIC MANAGEMENT TEAM; 2021-03-03 Jia Santamaria [facility] SPECIAL COAGULATION EVALUATION 16:12:00 [facility] CARDIAC DEVICE CHECK - NURSE - 2021-02-26 Chad Cheng [facility] INTERROGATION LOOP RECORDER 17:43:00 [facility] PATIENT FINANCIAL POLICY 2021-02-26 Doctor Koroma, [facility] 06:01:00 [place] [facility] CONSENT/REFUSAL FOR DIAGNOSIS AND 2021-02-26 Doctor Tenzin cardona, [place] of TREATMENT 06:01:00 [place] [facility] NO SHOW OR MISSED APPOINTMENT 2021-02-26 Doctor Koroma, [facility] POLICY ACKNOWLEDGEMENT 06:01:00 [place] [facility] NOTICE OF BILLING PRACTICES FOR 2021-02-26 Doctor Kathleen barrientos [place] of MEDICARE PATIENTS 06:01:00 [place] [facility] POWER OF CLINICAL DOCUMENTATION NURSE 2021-02-26 Doctor Koroma [facility] 06:01:00 [place] [facility] ASSIGNMENT OF BENEFITS 2021-02-26 Doctor Franci [facility] of 06:01:00 [place] [facility] POCT GLUCOSE (AUTOMATED) 2021-02-11 Marcel Concepcion [facility] ity of 01:22:00 [facility] POCT GLUCOSE (AUTOMATED) 2021-02-10 Marcel Concepcion [facility] ity of 21:24:00 [facility] POCT GLUCOSE (AUTOMATED) 2021-02-10 Michael, Marcel [facility] ity of 16:57:00 [facility] POCT GLUCOSE (AUTOMATED) 2021-02-10 Michael, Marcel [facility] ity of 12:40:00 [facility] POCT GLUCOSE (AUTOMATED) 2021-02-10 Michael, Marcel [facility] ity of 01:02:00 [facility] POCT GLUCOSE (AUTOMATED) 2021-02-09 Michael, Marcel [facility] ity of 23:01:00 [facility] TRANSESOPHAGEAL ECHO (JESSICA) 2021-02-09 She [facility] rsity of COMPLETE W/ DOPPLER AND COLOR 20:55:00 [facility] (AUTOMATED) 2021-02-09 Michael, Marcel Univers ity of 16:49:00 [facility] POCT GLUCOSE (AUTOMATED) 2021-02-09 Michael, Marcel [facility] ity of 12:33:00 [facility] PROTHROMBIN TIME / INR 2021-02-09 Zuly [facility] y of 08:56:00 [facility] BASIC METABOLIC PANEL (NA, K, CL, 2021-02-09 Zuly [facility] of CO2, GLUCOSE, BUN, CREATININE, 08:56:00 T [facility] [place]) Branch MAGNESIUM 2021-02-09 Zuly [facility] of 08:56:00 [facility] DISCLOSURE AND CONSENT, MEDICAL 2021-02-09 Doctor Kathleen barrientos, [facility] AND SURGICAL PROCEDURES 05:01:00 [place] [facility] POCT GLUCOSE (AUTOMATED) 2021-02-09 Michael, Marcel [facility] ity of 01:30:00 [facility] POCT GLUCOSE (AUTOMATED) 2021-02-08 Michael, Marcel [facility] ity of 22:08:00 [facility] MR BRAIN W WO CONTRAST 2021-02-08 [facility] y of 19:08:00 [facility] POCT GLUCOSE (AUTOMATED) 2021-02-08 Michael, Marcel Univers ity of 16:53:00 [facility] CBC WITH DIFF 2021-02-08 Zuly [facility] of 14:49:00 [facility] BASIC METABOLIC PANEL (NA, K, CL, 2021-02-08 Zuly, [facility] of CO2, GLUCOSE, BUN, CREATININE, 14:49:00 [place] [facility] MAGNESIUM 2021-02-08 Zuly, [facility] of 14:49:00 [facility] POCT GLUCOSE (AUTOMATED) 2021-02-08 Michael, [facility] ity of 14:20:00 [facility] POCT GLUCOSE (AUTOMATED) 2021-02-08 Michael, [facility] ity of 00:50:00 [facility] POCT GLUCOSE (AUTOMATED) 2021-02-07 Michael, [facility] ity of 22:07:00 [facility] POCT GLUCOSE (AUTOMATED) 2021-02-07 [facility], [facility] ity of 17:37:00 [facility] POCT GLUCOSE (AUTOMATED) 2021-02-07 [facility], [facility] ity of 14:30:00 [facility] LIPID PANEL (31179)(TOTAL 2021-02-07 [facility] of CHOLESTEROL, TRIGLYCERIDES, HDL) 09:04:00 [facility] URIC ACID 2021-02-07 [facility] of 09:04:00 [facility] THYROID STIMULATING HORMONE 2021-02-07 [facility] of 09:04:00 [facility] POCT GLUCOSE (AUTOMATED) 2021-02-07 [facility] ity of 01:12:00 [facility] CT THORAX W CONTRAST 2021-02-06 [facility] 23:35:22 [facility] EXTRA TUBE SST 2021-02-06 [facility] of 23:08:00 [facility] LIPID PANEL (67214)(TOTAL 2021-02-06 [facility], Univer sity of CHOLESTEROL, TRIGLYCERIDES, HDL) 23:08:00 [facility] GLYCOSYLATED HEMOGLOBIN (A1C) 2021-02-06 [facility], Un iversity of 23:08:00 [facility] VERIFYNOW PRUTEST (P2Y12) 2021-02-06[facility], Univer sity of 23:08:00 [facility] OSMOLALITY, SERUM OR PLASMA 2021-02-06 [facility] ersity of 23:08:00 [facility] XR CHEST 2 VW 2021-02-06 [facility] [place] of 17:09:00 [facility] URINALYSIS 2021-02-06 [facility] [place] of 16:05:00 [facility] URINE DRUG (IMMUNOASSAY) - 2021-02-06 Shine [facility] Un iversity of COMPREHENSIVE DRUG SCREEN W/O 16:05:00 [place] [facility] SODIUM, URINE RANDOM 2021-02-06 [facility], [facility] 16:05:00 [facility] OSMOLALITY URINE 2021-02-06 [facility], [facility] 16:05:00 [facility] [address] HEAD WO CONTRAST 2021-02-06 Shine Oliva [facility] y of 15:48:02 [facility] CT STROKE ANGIOGRAM HEAD 2021-02-06 Shine Oliva [facility] ersity of 15:48:02 [facility] [address] STROKE ANGIOGRAM NECK 2021-02-06 Shine Oliva [facility] ersity of 15:48:02 [facility] CBC WITH DIFF 2021-02-06 [facility] [place] of 15:23:00 [facility] COMP. METABOLIC PANEL (09686) 2021-02-06 [facility] [place] of 15:23:00 [facility] TROPONIN I 2021-02-06 [facility] [place] of 15:23:00 [facility] N-TERMINAL PRO-BNP 2021-02-06 [facility] [place] of 15:23:00 [facility] COVID-19 (ID NOW RAPID TESTING) 2021-02-06 Todd [facility] [place] of 15:23:00 [facility] LAB ONLY COVID INTERPRETATION 2021-02-06 Sh[facility] [place] of 15:23:00 [facility] GLYCOSYLATED HEMOGLOBIN (A1C) 2021-02-06[facility], iversity of 15:23:00 [facility] VITAMIN B12, LEVEL 2021-02-06 [facility], [place] of 15:23:00 [facility] HB ECG ROUTINE & RHYTHM STRIP 2021-02-06 Shine Oliva [facility] 14:59:04 [facility] CONSENT/REFUSAL FOR DIAGNOSIS AND 2021-02-06 Doctor Tenzin cardona [facility] 14:35:03 [place] [facility] HOSPITAL ADMISSION 2021-02-06 Doctor Franci [facility] 05:01:00 [place] [facility] Encounters Start End Encounter Admission Attending Care Care Encounter Source Date/Time Date/Time Type Type Clinicians Facility Department ID 2021-05-05 2021-05-05 Outpatient R [facility] [id number] Univers 12:00:00 12:00:00 JIA [id number] ity of [facility] 2021-05-05 2021-05-05 [facility] [id number] Univers 12:00[facility]00 [facility]00[facility] 2021-05-04 2021-05-04 Letter [facility] 1.2.840.114 [id number] Univers 00:00:00 00:00:00 (Out) Jia HEALTH 350.1.13.10 it y of [place] 4.2.7.2.686 [facility] REYES [phone] [address] OFFICE BUILDING 2021-04-16 2021-04-16 Telephone [facility] 1.2.733.149 [id number] Univers 00:00:00 00:00:00 Jia HEALTH 350.1.13.10 it y of [place] 4.2.7.2.686 [place] a REYES [phone] [place] [address] [address] OFFICE BUILDING 2021-03-15 2021-04-07 Inpatient U [facility] [id number] Univers 11:49:00 17:17:00 JIA ity [facility] 2021-03-15 2021-04-07 Hospital Laura Peck 1.2.84 0.114 [id number] Univers 11:49:00 17:17:00 Encounter Cy Larsen 350.1.13.10 ity of [facility] 4.2.7.2.686 [place] TanaMaritza [facility] [phone] [place] [address], Marcel 098 Br anch Jia Santamaria 2021-03-30 2021-03-30 Surgery Yenifer, [facility] 1.2.840.114 [id number] Univers 09:03:00 10:22:00 Clyde ICAL 350.1.13.10 it y of SCIENCES 4.2.7.2.686 [place] as BLDG [phone] [facility] 020 [place] 2021-03-27 2021-03-27 Anesthesia Jim Lorenzo 1.2.840 .3 [id number] Univers 12:34:00 15:06:00 Event Martina Fowler 06892.1.1 ity of 3.104.2.7 [place] .3.766617 Medica l .8 Branch 2021-03-20 2021-03-20 Travel 1.2.840.1 1.2.519.563 [id number] Univers 00:00:00 00:00:00 49517.1.1 350.1.13.10 ity of 3.104.2.7 4.[place]7.3.698 [place] .3.001453 084.8 Medica l .8 Branch 2021-03-18 2021-03-18 Patient Radha, 1.2.840.8 [id number] Univers 00:00:00 00:00:00 Secure Msg Jia 73214.1.1 i ty of [facility] 3.104.2.7 [place] .3.595861 Medica l .8 Branch 2021-03-15 2021-03-15 Travel 1.2.840.1 1.2.103.379 [id number] Univers 00:00:00 00:00:00 98472.1.1 350.1.13.10 ity of 3.104.2.7 4.[place].7.3.698 [place] .3.360901 084.8 Medica l .8 Branch 2021-03-12 2021-03-12 Emergency Keenan, 1.2.840.1 [id number] Univers 12:41:00 16:45:00 [place] 21160.1.1 ity of 3.104.2.7 [place] .3.308272 Medica l .8 Branch 2021-03-12 2021-03-12 Travel 1.2.840.1 1.2.857.332 [id number] Univers 00:00:00 00:00:00 57580.1.1 350.1.13.10 ity of 3.104.2.7 4.2.7.3.698 [place] .3.324025 084.8 Medica l .8 Branch 2021-03-10 2021-03-10 Orders Doctor ARMEN 1.2.840.114 [id number] Univers 00:00:00 00:00:00 Only Unassigned, FREDDY 350.1.13.10 ity of [place] [facility] 4.2.7.2.686 [place] as [phone] [facility] jaspal 009 [place] 2021-03-10 2021-03-10 Case Herminio, 1.2.840.1 [id number] Univers 00:00:00 00:00:00 Management Salik 67557.1.1 i ty of 3.104.2.7 [place] .3.210420 Medica l .8 [place] 2021-03-10 2021-03-10 Patient Doctor 1.2.840.5 [id number] Univers 00:00:00 00:00:00 Secure Msg Unassigned, 46162.1.1 ity of [place] 3.104.2.7 [place] .3.816606 Medica l .8 [place] 2021-03-04 2021-03-04 Telephone Radha, 1.2.840.7 [id number] Univers 00:00:00 00:00:00 Jia 00562.1.1 ity of [place].2.7 [place] .3.979796 Medica l .8 [place] 2021-03-03 2021-03-03 [employer] Operator Jia Santamariaaschand 1 .2.840.0 [id number] Univers 10:00:00 10:05:36 Visit [facility] 00123.1.1 ity of 3.104.2.7 [place] .3.652063 Medica l .8 Branch 2021-03-03 2021-03-03 Office Adonis Scott 1.2.840.1 1 [id number] Univers 09:30:00 10:00:00 Visit Mare [place] 42635.1.1 ity of 3.104.2.7 [place] .3.059018 Medica l .8 Branch 2021-03-03 2021-03-03 Telephone Santamaria, 1.2.840.9 [id number] Univers 00:00:00 00:00:00 Jia 77610.1.1 ity of [place].2.7 [place] .3.972222 Medica l .8 Branch 2021-03-02 2021-03-02 Office Santamaria, 1.2.840.7 [id number] Univers 11:00:00 12:00:00 Visit Jia 08987.1.1 ity of [place].2.[place] .3.836119 Medica l .8 Branch 2021-02-26 2021-02-26 [facility], 1.2.840.4 [id number] Univers 11:00:00 23:59:00 Encounter Chad 62003.1.1 ity of 3.104.2.7 [place] .3.658161 Medica l .8 Branch 2021-02-26 2021-02-26 Travel 1.2.840.1 1.2.262.529 [id number] Univers 00:00:00 00:00:00 28154.1.1 350.1.13.10 ity of 3.104.2.7 4.2.7.3.698 [place] .3.242305 084.8 Medica l .8 Branch 2021-02-11 2021-02-11 [facility], 1.2.840.2 [id number] Univers 00:00:00 00:00:00 of Fatuma Rubio 93411.1.1 ity of 3.104.2.7 [place] .3.838465 Medica l .8 Branch 2021-02-06 2021-02-10 Hospital Esther Lara 1.2.840.1 [id number] Univers 09:34:00 21:22:00 Encounter Marcel Concepcion 88706.1.1 ity of 3.104.2.7 [place] .3.244534 Medica l .8 Branch 2021-02-10 2021-02-10 Anesthesia Aly, 1.2.840.8 [id number] Univers 15:59:40 15:59:40 Event Chloe Rubio 84757.1.1 ity of 3.104.2.7 [place] .3.463520 Medica l .8 Branch 2021-02-06 2021-02-06 Travel 1.2.840.1 1.2.452.707 [id number] Univers 00:00:00 00:00:00 42040.1.1 350.1.13.10 ity of 3.104.2.7 4[place].7.3.698 [place] .3.739275 084.8 Medica l .8 Branch 2021-01-07 2021-01-07 Inpatient 3 DOV, [facility] [id number] 10:57:00 23:59:00 NITHYABrionna SANDRASTON L ukes - N, [address] BYPASS, (LUF/[place] [address] 2021-01-07 2021-01-07 [facility] [id number] 12:00:00 15:15:00 [facility]/SA) 2021-01-07 2021-01-07 Inpatient [facility] [id number] [facility] 00:00:00 00:00:00 ANTONIA NAM [id number] [facility], [phone] [id number] l BYPASS, (LUF/[place] [address] 2021-01-07 2021-01-07 Inpatient [facility] [id number] 00:00:00 00:00:00 ANTONIA NAM [id number] [facility], [phone] [id number] l BYPASS, (LUF/[place] [address] 2018 2018 ESSENTIAL O LAURORA, [facility] [id number] 10:42:00 23:59:00 PRIMARY NITHYA NAM L ukes - HYPERTENSI N, [address] [place]PASS, (LUF/[place] [address] Results Test Description Test Time Test Comments Results Result Comments Source POCT GLUCOSE (AUTOMATED) 2021-04-07 17:19:06 Test Item Value Reference Range Interpretation Comme nts POCT GLU (test code = 2741703822) 91 mg/dL 70-110 Lab Interpretation (test code = 79108-6) Normal [facility]. Sendout- anca vasculitis [id number] 2021-04-07 14:16:32 Test Item Value Reference Range Interpretation Comments Miscellaneous Test (test See scanned report code = 1599977429) Performing Lab (test code ARUP = 2418050415) [facility] GLUCOSE (AUTOMATED)2021-04-07 13:15:52 Test Item Value Reference Range Interpretation Comments POCT GLU (test code = 2154891860) 99 mg/dL 70-110 Lab Interpretation (test code = Normal 82565-5) [facility] GLUCOSE (AUTOMATED)2021-04-06 22:48:34 Test Item Value Reference Range Interpretation Comments POCT GLU (test code = 9125362209) 118 mg/dL 70-110 H Lab Interpretation (test code = Abnormal 56013-3) [facility] GLUCOSE (AUTOMATED)2021-04-06 16:57:15 Test Item Value Reference Range Interpretation Comments POCT GLU (test code = 7031830796) 140 mg/dL 70-110 H Lab Interpretation (test code = Abnormal 12205-3) [facility]. Sendout- [id number] : [id number] 15:11:18 Test Item Value Reference Range Interpretation Comments Miscellaneous Test (test See scanned report code = 3599828766) Performing Lab (test code ARUP = 3484747235) [facility]. Sendout- [id number] : HSV by [id number] 14:58:33 Test Item Value Reference Range Interpretation Comments Miscellaneous Test (test See scanned report code = 0415324999) Performing Lab (test code ARUP = 3057568291) [facility]. Sendout- anca vasculitis [id number] 2021-04-06 14:56:02 Test Item Value Reference Range Interpretation Comments Miscellaneous Test (test See scanned report code = 3303835789) Performing Lab (test code ARUP = 3516569100) [facility] GLUCOSE (AUTOMATED)2021-04-06 14:06:38 Test Item Value Reference Range Interpretation Comments POCT GLU (test code = 8353418445) 132 mg/dL 70-110 H Lab Interpretation (test code = Abnormal 45275-8) [facility] METABOLIC PANEL (NA, K, CL, CO2, GLUCOSE, BUN, CREATININE, CA)2021-04-06 11:32:12 Test Item Value Reference Range Interpretation Comments NA (test code = 129 mmol/L 135-145 L 3766653829) K (test code = 4.2 mmol/L 3.5-5.0 5446307015) CL (test code = 101 mmol/L 98-108 9291784628) CO2 TOTAL (test code = 24 mmol/L 23-31 5232022067) AGAP (test code = 2-16 9552423308) BUN (test code = 13 mg/dL 7-23 6195096367) GLUCOSE (test code = 132 mg/dL 70-110 H 4158037854) CREATININE (test code = 0.54 mg/dL 0.60-1.25 L 0019259961) CALCIUM (test code = 8.8 mg/dL 8.6-10.6 0228774880) eGFR (test code = mL/min/1.73m2 5253501121) POP (test code = POP) Association of [...] tests). Lab Interpretation Abnormal (test code = 26566-5) [facility] WITH [id number] 11:05:49 Test Item Value Reference Range Interpretation Comments WBC (test code = See_Comment [Automated 6490-2) message] The sy stem which generated this result transmitted reference range : 4.20 - 10.70 10*3/?L. The reference range was not used to interpret this result as normal/abnormal . RBC (test code = See_Comment L [Automated 309-8) message] The sy stem which generated this [...] (test code = 55.3 fL 38.5-51.6 H 56060-6) RDW-CV (test code = 15.7 % 12.1-15.4 H 788-0) PLT (test code = See_Comment H [Automated 777-3) message] The sy stem which generated this result transmitted reference range : 150 - 328 10*3/ ?L. The reference r jalen was not used to interpret this result as normal/abnormal . MPV (test code = 9.1 fL 9.8-13.0 L 93513-4) NRBC/100 WBC (test See_Comment [Automat ed code = 9443593369) message] The system which generated this result transmitted reference range : 0.0 - 10.0 /100 WBCs. The refer ence range was not u sed to interpret th is result as normal/abnormal . NRBC x10^3 (test code <0.01 See_Comment [Auto mated = 9692744728) message] The s ystem which generated this result transmitted reference range : 10*3/?L. The reference range was not used to interpret this result as normal/abnormal . GRAN MAT (NEUT) % 76.7 % (test code = 770-8) IMM GRAN % (test code 0.40 % = 7182517062) LYMPH % (test code = 13.1 % 736-9) MONO % (test code = 6.8 % 5905-5) EOS % (test code = 2.5 % 713-8) BASO % (test code = 0.5 % 706-2) GRAN MAT x10^3(ANC) 7.87 10*3/uL 1.99-6.95 H (test code = 7985553233) IMM GRAN x10^3 (test 0.04 10*3/uL 0.00-0.06 code = 7928556064) LYMPH x10^3 (test code 1.34 10*3/uL 1.09-3.23 = 731-0) MONO x10^3 (test code 0.70 10*3/uL 0.36-1.02 = 742-7) EOS x10^3 (test code = 0.26 10*3/uL 0.06-0.53 711-2) BASO x10^3 (test code 0.05 10*3/uL 0.01-0.09 = 704-7) Lab Interpretation Abnormal (test code = 94906-7) [facility] [id number] 01:10:10ANA - Pathologist InterpretationANA HEp-2 IIFA Pathologist [...] that is strongly associated with a positive JMI, such as systemic lupus erythematosus (JIM positive [...] thyroid disease, discoid lupus, and fibromyalgia. (https:// pubmed.ncbi.nlm.nih.gov/05644027/, https://pubmed.ncbi.nlm.nih.gov/02993210/) ? ? Therefore, a diagnosis cannot be based exclusively on JIM detection and/or pattern and thus should be made via the integration of patient history, physical exam findings, and other diagnostic tests as clinically indicated. Lillie Goldberg MD ?04/05/2021 ?7:09 [facility] ([facility])2021-04-05 21:40:00 Test Item Value Reference Range Interpretation Comments POCT GLU (test code = 8142228687) 132 mg/dL 70-110 H Lab Interpretation (test code = Abnormal 35065-1) [facility] GLUCOSE (AUTOMATED)2021-04-05 18:10:53 Test Item Value Reference Range Interpretation Comments POCT GLU (test code = 8034913655) 138 mg/dL 70-110 H Lab Interpretation (test code = Abnormal 01368-8) [facility] GLUCOSE (AUTOMATED)2021-04-05 14:04:11 Test Item Value Reference Range Interpretation Comments POCT GLU (test code = 7530313979) 116 mg/dL 70-110 H Lab Interpretation (test code = Abnormal 43001-9) [facility] GLUCOSE (AUTOMATED)2021-04-04 21:41:22 Test Item Value Reference Range Interpretation Comments POCT GLU (test code = 8134647128) 137 mg/dL 70-110 H Lab Interpretation (test code = Abnormal 27421-3) [facility] GLUCOSE (AUTOMATED)2021-04-04 18:08:49 Test Item Value Reference Range Interpretation Comments POCT GLU (test code = 4062750607) 152 mg/dL 70-110 H Lab Interpretation (test code = Abnormal 50703-0) [facility] GLUCOSE (AUTOMATED)2021-04-04 14:08:44 Test Item Value Reference Range Interpretation Comments POCT GLU (test code = 5390424986) 133 mg/dL 70-110 H Lab Interpretation (test code = Abnormal 78250-3) [facility] GLUCOSE (AUTOMATED)2021-04-04 01:42:09 Test Item Value Reference Range Interpretation Comments POCT GLU (test code = 8269805200) 150 mg/dL 70-110 H Lab Interpretation (test code = Abnormal 98411-9) [facility] GLUCOSE (AUTOMATED)2021-04-03 22:52:45 Test Item Value Reference Range Interpretation Comments POCT GLU (test code = 5919879225) 139 mg/dL 70-110 H Lab Interpretation (test code = Abnormal 68350-0) [facility] WITH [id number] 21:30:06 Test Item Value Reference Range Interpretation [...] (test code = 58.4 fL 38.5-51.6 H 97195-7) RDW-CV (test code = 16.6 % 12.1-15.4 H 788-0) PLT (test code = See_Comment H [Automated 777-3) message] The sy stem which generated this result transmitted reference range : 150 - 328 10*3/ ?L. The reference r jalen was not used to interpret this result as normal/abnormal . MPV (test code = 9.2 fL 9.8-13.0 L 52215-8) NRBC/100 WBC (test See_Comment [Automat ed code = 2425771536) message] The system which generated this result transmitted reference range : 0.0 - 10.0 /100 WBCs. The refer ence range was not u sed to interpret th is result as normal/abnormal . NRBC x10^3 (test code <0.01 See_Comment [Auto mated = 1230000163) message] The s ystem which generated this result transmitted reference range : 10*3/?L. The reference range was not used to interpret this result as normal/abnormal . GRAN MAT (NEUT) % 78.6 % (test code = 770-8) IMM GRAN % (test code 0.40 % = 7107611570) LYMPH % (test code = 11.9 % 736-9) MONO % (test code = 6.2 % 5905-5) EOS % (test code = 2.5 % 713-8) BASO % (test code = 0.4 % 706-2) GRAN MAT x10^3(ANC) 8.91 10*3/uL 1.99-6.95 H (test code = 1683782456) IMM GRAN x10^3 (test 0.05 10*3/uL 0.00-0.06 code = 4100087912) LYMPH x10^3 (test code 1.35 10*3/uL 1.09-3.23 = 731-0) MONO x10^3 (test code 0.70 10*3/uL 0.36-1.02 = 742-7) EOS x10^3 (test code = 0.28 10*3/uL 0.06-0.53 711-2) BASO x10^3 (test code 0.04 10*3/uL 0.01-0.09 = 704-7) Lab Interpretation Abnormal (test code = 62618-4) [facility] GLUCOSE (AUTOMATED)2021-04-03 18:48:37 Test Item Value Reference Range Interpretation Comments POCT GLU (test code = 9119563386) 111 mg/dL 70-110 H Lab Interpretation (test code = Abnormal 60867-2) [facility] GLUCOSE (AUTOMATED)2021-04-03 13:33:21 Test Item Value Reference Range Interpretation Comments POCT GLU (test code = 2987179559) 105 mg/dL 70-110 Lab Interpretation (test code = Normal 63353-3) [facility] METABOLIC PANEL (NA, K, CL, CO2, GLUCOSE, BUN, CREATININE, CA)2021-04-03 00:52:56 Test Item Value Reference Range Interpretation Comments NA (test code = 132 mmol/L 135-145 L 5998937249) K (test code = 4.3 mmol/L 3.5-5.0 4720172802) CL (test code = 103 mmol/L 98-108 1833387863) CO2 TOTAL (test code = 22 mmol/L 23-31 L 2355901278) AGAP (test code = 2-16 0638430669) BUN (test code = 11 mg/dL 7-23 2902270477) GLUCOSE (test code = 157 mg/dL 70-110 H 9024972106) CREATININE (test code = 0.67 mg/dL 0.60-1.25 1174553334) CALCIUM (test code = 8.6 mg/dL 8.6-10.6 5368273911) eGFR (test code = mL/min/1.73m2 8970834538) POP (test code = POP) Association of [...] tests). Lab Interpretation Abnormal (test code = 37082-4) [facility] GLUCOSE (AUTOMATED)2021-04-02 23:31:51 Test Item Value Reference Range Interpretation Comments POCT GLU (test code = 6756985146) 148 mg/dL 70-110 H Lab Interpretation (test code = Abnormal 55875-2) [facility] WITH [id number] 23:25:07 Test Item Value Reference Range Interpretation [...] (test code = 61.1 fL 38.5-51.6 H 66478-9) RDW-CV (test code = 17.0 % 12.1-15.4 H 788-0) PLT (test code = See_Comment H [Automated 777-3) message] The sy stem which generated this result transmitted reference range : 150 - 328 10*3/ ?L. The reference r jalen was not used to interpret this result as normal/abnormal . MPV (test code = 9.1 fL 9.8-13.0 L 26822-5) NRBC/100 WBC (test See_Comment [Automat ed code = 9005519314) message] The system which generated this result transmitted reference range : 0.0 - 10.0 /100 WBCs. The refer ence range was not u sed to interpret th is result as normal/abnormal . NRBC x10^3 (test code <0.01 See_Comment [Auto mated = 9199473413) message] The s Ahorro Libretem which generated this result transmitted reference range : 10*3/?L. The reference range was not used to interpret this result as normal/abnormal . GRAN MAT (NEUT) % 79.7 % (test code = 770-8) IMM GRAN % (test code 0.40 % = 0904316366) LYMPH % (test code = 10.7 % 736-9) MONO % (test code = 7.0 % 5905-5) EOS % (test code = 1.8 % 713-8) BASO % (test code = 0.4 % 706-2) GRAN MAT x10^3(ANC) 8.26 10*3/uL 1.99-6.95 H (test code = [id number]) IMM GRAN x10^3 (test 0.04 10*3/uL 0.00-0.06 code = [id number]) LYMPH x10^3 (test code 1.11 10*3/uL 1.09-3.23 = 731-0) MONO x10^3 (test code 0.73 10*3/uL 0.36-1.02 = 742-7) EOS x10^3 (test code = 0.19 10*3/uL 0.06-0.53 711-2) BASO x10^3 (test code 0.04 10*3/uL 0.01-0.09 = 704-7) Lab Interpretation Abnormal (test code = 70135-4) [facility] GLUCOSE (AUTOMATED)2021-04-02 19:12:44 Test Item Value Reference Range Interpretation Comments POCT GLU (test code = [id number]) 137 mg/dL 70-110 H Lab Interpretation (test code = Abnormal 99188-1) [facility] GLUCOSE (AUTOMATED)2021-04-02 13:41:59 Test Item Value Reference Range Interpretation Comments POCT GLU (test code = 2645928642) 146 mg/dL 70-110 H Lab Interpretation (test code = Abnormal 44199-6) [facility] [id number] 01:02:17 Test Item Value Reference Range Interpretation Comments Blood Culture-Aerobic No organisms No growth Previo us (test code = 29051-7) isolated prelim inary verified result was Culture In Progress on 03/27/2021 at 2201 CSTPreviou s preliminary verified result was No growth a t 24 hours on 03/28/2021 at 1901 CSTPreviou s preliminary verified result was No growth a t 48 hours on 03/29/2021 at 1901 CSTPreviou s preliminary verified result was No growth a t 72 hours on 03/30/2021 at 1901 [employer] Blood No organisms No growth Previous Culture-Anaerobic isolated preliminar y (test code = 97210-6) verifi ed result was Culture In Progress on 03/27/2021 at 2201 CSTPreviou s preliminary verified result was No growth a t 24 hours on 03/28/2021 at 1901 CSTPreviou s preliminary verified result was No growth a t 48 hours on 03/29/2021 at 1901 CSTPreviou s preliminary verified result was No growth a t 72 hours on 03/30/2021 at 1901 [employer] ME[employer] Lab Interpretation Normal (test code = 00906-5) [facility] CULTURE [id number] 01:02:17 Test Item Value Reference Range Interpretation Comments Blood Culture-Aerobic No organisms No growth Previo us (test code = 94797-0) isolated prelim inary verified result was Culture In Progress on 03/27/2021 at 2201 CSTPreviou s preliminary verified result was No growth a t 24 hours on 03/28/2021 at 1901 CSTPreviou s preliminary verified result was No growth a t 48 hours on 03/29/2021 at 1901 CSTPreviou s preliminary verified result was No growth a t 72 hours on 03/30/2021 at 1901 [employer] ME[employer] Blood No organisms No growth Previous Culture-Anaerobic isolated preliminar y (test code = 55481-0) verifi ed result was Culture In Progress on 03/27/2021 at 2201 CSTPreviou s preliminary verified result was No growth a t 24 hours on 03/28/2021 at 1901 CSTPreviou s preliminary verified result was No growth a t 48 hours on 03/29/2021 at 1901 CSTPreviou s preliminary verified result was No growth a t 72 hours on 03/30/2021 at 1901 [employer] ME[employer] Lab Interpretation Normal (test code = 77299-1) [facility] GLUCOSE (AUTOMATED)2021-04-01 21:29:38 Test Item Value Reference Range Interpretation Comments POCT GLU (test code = 8124748198) 136 mg/dL 70-110 H Lab Interpretation (test code = Abnormal 01631-4) [facility] GLUCOSE (AUTOMATED)2021-04-01 17:07:36 Test Item Value Reference Range Interpretation Comments POCT GLU (test code = 6087578062) 132 mg/dL 70-110 H Lab Interpretation (test code = Abnormal 38528-0) [facility] GLUCOSE (AUTOMATED)2021-04-01 13:36:26 Test Item Value Reference Range Interpretation Comments POCT GLU (test code = 4467648968) 116 mg/dL 70-110 H Lab Interpretation (test code = Abnormal 19382-4) [facility] WITH [id number] 11:45:58 Test Item Value Reference Range Interpretation [...] (test code = 60.1 fL 38.5-51.6 H 23175-9) RDW-CV (test code = 18.2 % 12.1-15.4 H 788-0) PLT (test code = See_Comment H [Automated 777-3) message] The sy stem which generated this result transmitted reference range : 150 - 328 10*3/ ?L. The reference r jalen was not used to interpret this result as normal/abnormal . MPV (test code = 9.2 fL 9.8-13.0 L 15436-1) NRBC/100 WBC (test See_Comment [Automat ed code = 0870126588) message] The system which generated this result transmitted reference range : 0.0 - 10.0 /100 WBCs. The refer ence range was not u sed to interpret th is result as normal/abnormal . NRBC x10^3 (test code <0.01 See_Comment [Auto mated = 8255522072) message] The s ystem which generated this result transmitted reference range : 10*3/?L. The reference range was not used to interpret this result as normal/abnormal . GRAN MAT (NEUT) % 81.4 % (test code = 770-8) IMM GRAN % (test code 0.50 % = 4804134338) LYMPH % (test code = 11.5 % 736-9) MONO % (test code = 5.4 % 5905-5) EOS % (test code = 1.0 % 713-8) BASO % (test code = 0.2 % 706-2) GRAN MAT x10^3(ANC) 9.56 10*3/uL 1.99-6.95 H (test code = 3440721454) IMM GRAN x10^3 (test 0.06 10*3/uL 0.00-0.06 code = 3533616801) LYMPH x10^3 (test code 1.35 10*3/uL 1.09-3.23 = 731-0) MONO x10^3 (test code 0.64 10*3/uL 0.36-1.02 = 742-7) EOS x10^3 (test code = 0.12 10*3/uL 0.06-0.53 711-2) BASO x10^3 (test code <0.03 0.01-0.09 = 704-7) Lab Interpretation Abnormal (test code = 16716-9) [facility] METABOLIC PANEL (NA, K, CL, CO2, GLUCOSE, BUN, CREATININE, CA)2021-04-01 11:35:36 Test Item Value Reference Range Interpretation Comments NA (test code = 130 mmol/L 135-145 L 9784276701) K (test code = 3.9 mmol/L 3.5-5.0 1661070671) CL (test code = 102 mmol/L 98-108 8406052749) CO2 TOTAL (test code = 22 mmol/L 23-31 L 7521954426) AGAP (test code = 2-16 6353691402) BUN (test code = 11 mg/dL 7-23 2355582221) GLUCOSE (test code = 114 mg/dL 70-110 H 0134013009) CREATININE (test code = 0.78 mg/dL 0.60-1.25 7530593900) CALCIUM (test code = 8.5 mg/dL 8.6-10.6 L 0931518428) eGFR (test code = mL/min/1.73m2 7102794962) POP (test code = POP) Association of [...] tests). Lab Interpretation Abnormal (test code = 73002-0) [facility] 11:35:36 Test Item Value Reference Range Interpretation Comments MAGNESIUM (test code = 1879573807) 1.7 mg/dL 1.7-2.4 Lab Interpretation (test code = Normal 82198-5) [facility] GLUCOSE (AUTOMATED)2021-03-31 21:14:18 Test Item Value Reference Range Interpretation Comments POCT GLU (test code = 4933638030) 97 mg/dL 70-110 Lab Interpretation (test code = Normal 74714-3) [facility]21-[facility] 18:15:23 Test Item Value Reference Range Interpretation Comments ANTI-SSA(RO) (test code = Negative Negative 7327689551) POP (test code = POP) Positive - Antibody detected.Negative - No antibody detected. Lab Interpretation (test Normal code = 83040-0) [facility]2021-03-31 18:15:23 Test Item Value Reference Range Interpretation Comments Anti-SSB(LA) (test code = Negative Negative 4173761313) POP (test code = POP) Positive - Antibody detected.Negative - No antibody detected. Lab Interpretation (test Normal code = 24745-3) [facility]21-[facility] 18:15:23 Test Item Value Reference Range Interpretation Comments ANTI-SSA(RO) (test code = Negative Negative 5443998993) POP (test code = POP) Positive - Antibody detected.Negative - No antibody detected. Lab Interpretation (test Normal code = 64350-7) [facility]21-[facility] 18:15:23 Test Item Value Reference Range Interpretation Comments Anti-SSB(LA) (test code = Negative Negative 7696391822) POP (test code = POP) Positive - Antibody detected.Negative - No antibody detected. Lab Interpretation (test Normal code = 91232-3) [facility] GLUCOSE (AUTOMATED)2021-03-31 17:14:06 Test Item Value Reference Range Interpretation Comments POCT GLU (test code = 1618147646) 111 mg/dL 70-110 H Lab Interpretation (test code = Abnormal 46059-2) [facility] GLUCOSE (AUTOMATED)2021-03-31 17:14:06 Test Item Value Reference Range Interpretation Comments POCT GLU (test code = 6212783591) 111 mg/dL 70-110 H Lab Interpretation (test code = Abnormal 91972-4) [facility] GLUCOSE (AUTOMATED)2021-03-31 13:31:44 Test Item Value Reference Range Interpretation Comments POCT GLU (test code = 9245666186) 90 mg/dL 70-110 Lab Interpretation (test code = Normal 70713-0) [facility] GLUCOSE (AUTOMATED)2021-03-31 13:31:44 Test Item Value Reference Range Interpretation Comments POCT GLU (test code = 9550024712) 90 mg/dL 70-110 Lab Interpretation (test code = Normal 03463-3) [facility] METABOLIC PANEL (NA, K, CL, CO2, GLUCOSE, BUN, CREATININE, CA)2021-03-31 11:14:28 Test Item Value Reference Range Interpretation Comments NA (test code = 130 mmol/L 135-145 L 9552792426) K (test code = 4.2 mmol/L 3.5-5.0 3618489326) CL (test code = 103 mmol/L 98-108 5625619561) CO2 TOTAL (test code = 22 mmol/L 23-31 L 1752963909) AGAP (test code = 2-16 8863783399) BUN (test code = 11 mg/dL 7-23 0023779861) GLUCOSE (test code = 83 mg/dL 70-110 7214469541) CREATININE (test code = 0.71 mg/dL 0.60-1.25 3284508947) CALCIUM (test code = 8.6 mg/dL 8.6-10.6 9787291859) eGFR (test code = mL/min/1.73m2 1313101971) POP (test code = POP) Association of [...] tests). Lab Interpretation Abnormal (test code = 80686-5) [facility] 11:14:28 Test Item Value Reference Range Interpretation Comments MAGNESIUM (test code = 2632325781) 1.8 mg/dL 1.7-2.4 Lab Interpretation (test code = Normal 56660-1) [facility] (NA, K, CL, CO2, GLUCOSE, BUN, CREATININE, CA)2021-03-31 11:14:28 Test Item Value Reference Range Interpretation Comments NA (test code = 130 mmol/L 135-145 L 8676921150) K (test code = 4.2 mmol/L 3.5-5.0 5333251234) CL (test code = 103 mmol/L 98-108 0031780269) CO2 TOTAL (test code = 22 mmol/L 23-31 L 3927147394) AGAP (test code = 2-16 3819429164) BUN (test code = 11 mg/dL 7-23 7105674774) GLUCOSE (test code = 83 mg/dL 70-110 0244129598) CREATININE (test code = 0.71 mg/dL 0.60-1.25 2072895744) CALCIUM (test code = 8.6 mg/dL 8.6-10.6 8565640456) eGFR (test code = mL/min/1.73m2 8917899165) POP (test code = POP) Association of [...] tests). Lab Interpretation Abnormal (test code = 79178-9) [facility] 11:14:28 Test Item Value Reference Range Interpretation Comments MAGNESIUM (test code = 1173181710) 1.8 mg/dL 1.7-2.4 Lab Interpretation (test code = Normal 73539-2) [facility] WITH [id number] 10:20:23 Test Item Value Reference Range Interpretation [...] (test code = 57.5 fL 38.5-51.6 H 03838-5) RDW-CV (test code = 17.6 % 12.1-15.4 H 788-0) PLT (test code = See_Comment H [Automated 777-3) message] The system which generated this result transmit qing reference range : 150 - 328 10*3/ ?L. The reference range was not u sed to interpret th is result as normal/abnormal . MPV (test code = 9.2 fL 9.8-13.0 L 67519-2) NRBC/100 WBC (test See_Comment [Automat ed code = 4916937187) message] The system which generated this result transmit qing reference range : 0.0 - 10.0 /100 WBCs. The reference range was not used to interpret this result as normal/abnormal . NRBC x10^3 (test code <0.01 See_Comment [Auto mated = 9529757225) message] The system which generated this result transmit qing reference range : 10*3/?L. The reference range was not used to interpret this result as normal/abnormal . GRAN MAT (NEUT) % 83.6 % (test code = 770-8) IMM GRAN % (test code 0.60 % = 7086138327) LYMPH % (test code = 9.6 % 736-9) MONO % (test code = 4.8 % 5905-5) EOS % (test code = 1.1 % 713-8) BASO % (test code = 0.3 % 706-2) GRAN MAT x10^3(ANC) 11.90 10*3/uL 1.99-6.95 H (test code = 9047578889) IMM GRAN x10^3 (test 0.09 10*3/uL 0.00-0.06 H code = 1040911771) LYMPH x10^3 (test code 1.37 10*3/uL 1.09-3.23 = 731-0) MONO x10^3 (test code 0.68 10*3/uL 0.36-1.02 = 742-7) EOS x10^3 (test code = 0.15 10*3/uL 0.06-0.53 711-2) BASO x10^3 (test code 0.04 10*3/uL 0.01-0.09 = 704-7) Lab Interpretation Abnormal (test code = 07826-8) [facility] WITH [id number] 10:20:23 Test Item Value Reference Range Interpretation [...] (test code = 57.5 fL 38.5-51.6 H 82777-4) RDW-CV (test code = 17.6 % 12.1-15.4 H 788-0) PLT (test code = See_Comment H [Automated 777-3) message] The system which generated this result transmit qing reference range : 150 - 328 10*3/ ?L. The reference range was not u sed to interpret th is result as normal/abnormal . MPV (test code = 9.2 fL 9.8-13.0 L 32793-2) NRBC/100 WBC (test See_Comment [Automat ed code = 2584427398) message] The system which generated this result transmit qing reference range : 0.0 - 10.0 /100 WBCs. The reference range was not used to interpret this result as normal/abnormal . NRBC x10^3 (test code <0.01 See_Comment [Auto mated = 2927029727) message] The system which generated this result transmit qing reference range : 10*3/?L. The reference range was not used to interpret this result as normal/abnormal . GRAN MAT (NEUT) % 83.6 % (test code = 770-8) IMM GRAN % (test code 0.60 % = 5383015403) LYMPH % (test code = 9.6 % 736-9) MONO % (test code = 4.8 % 5905-5) EOS % (test code = 1.1 % 713-8) BASO % (test code = 0.3 % 706-2) GRAN MAT x10^3(ANC) 11.90 10*3/uL 1.99-6.95 H (test code = 7421056446) IMM GRAN x10^3 (test 0.09 10*3/uL 0.00-0.06 H code = 0887741004) LYMPH x10^3 (test code 1.37 10*3/uL 1.09-3.23 = 731-0) MONO x10^3 (test code 0.68 10*3/uL 0.36-1.02 = 742-7) EOS x10^3 (test code = 0.15 10*3/uL 0.06-0.53 711-2) BASO x10^3 (test code 0.04 10*3/uL 0.01-0.09 = 704-7) Lab Interpretation Abnormal (test code = 87552-8) [facility] GLUCOSE (AUTOMATED)2021-03-30 22:19:35 Test Item Value Reference Range Interpretation Comments POCT GLU (test code = 8430593840) 96 mg/dL 70-110 Lab Interpretation (test code = Normal 01331-9) [facility] GLUCOSE (AUTOMATED)2021-03-30 22:19:35 Test Item Value Reference Range Interpretation Comments POCT GLU (test code = 0989207904) 96 mg/dL 70-110 Lab Interpretation (test code = Normal 71340-7) [facility] GLUCOSE (AUTOMATED)2021-03-30 14:02:48 Test Item Value Reference Range Interpretation Comments POCT GLU (test code = 7610924652) 105 mg/dL 70-110 Lab Interpretation (test code = Normal 71908-4) [facility] GLUCOSE (AUTOMATED)2021-03-30 14:02:48 Test Item Value Reference Range Interpretation Comments POCT GLU (test code = 9832981823) 105 mg/dL 70-110 Lab Interpretation (test code = Normal 07885-3) [facility], [id number] 13:43:42 Test Item Value Reference Range Interpretation Comments MMA Serum/Plasma, 0.14 umol/L 0.00-0.40 INTERPRETI VE INFORMATION: Vitamin B12 MMA Serum/Plasm a, ? ? ? Status (test code ? = 14992-1) ?Vitamin B12 St atus This test was develo ped and its performance characteristics determined by [facility]. I t has not been cleared or approved by the [place] Food and Drug Administration. This test was performed i n a CLIA certified labor atory and is intended for clinical purposes.Perfor med By: [facility] [address] [place] [id number] aboratory Director: Elena Mansfield MD [facility], [id number] 13:43:42 Test Item Value Reference Range Interpretation Comments MMA Serum/Plasma, 0.14 umol/L 0.00-0.40 INTERPRETI VE INFORMATION: Vitamin B12 MMA Serum/Plasm a, ? ? ? Status (test code ? = 74113-7) ?Vitamin B12 St atus This test was develo ped and its performance characteristics determined by [facility]. I t has not been cleared or approved by the [place] Food and Drug Administration. This test was performed i n a CLIA certified labor atory and is intended for clinical purposes.Perfor med By: [facility] [address] [place], [place] [address]E aboratory Director: Elena Mansfield MD [facility] METABOLIC PANEL (NA, K, CL, CO2, GLUCOSE, BUN, CREATININE, CA)2021-03-30 11:17:07 Test Item Value Reference Range Interpretation Comments NA (test code = 132 mmol/L 135-145 L 3124608953) K (test code = 4.1 mmol/L 3.5-5.0 8775403419) CL (test code = 105 mmol/L 98-108 7140899399) CO2 TOTAL (test code = 24 mmol/L 23-31 2467842914) AGAP (test code = 2-16 1235316224) BUN (test code = 12 mg/dL 7-23 3588174600) GLUCOSE (test code = 95 mg/dL 70-110 0809969114) CREATININE (test code = 0.67 mg/dL 0.60-1.25 2397765028) CALCIUM (test code = 8.4 mg/dL 8.6-10.6 L 3512077390) eGFR (test code = mL/min/1.73m2 0345648418) POP (test code = POP) Association of [...] tests). Lab Interpretation Abnormal (test code = 51098-0) [facility] 11:17:07 Test Item Value Reference Range Interpretation Comments MAGNESIUM (test code = 5397507052) 1.6 mg/dL 1.7-2.4 L Lab Interpretation (test code = Abnormal 92543-1) [facility] (NA, K, CL, CO2, GLUCOSE, BUN, CREATININE, CA)2021-03-30 11:17:07 Test Item Value Reference Range Interpretation Comments NA (test code = 132 mmol/L 135-145 L 9566669202) K (test code = 4.1 mmol/L 3.5-5.0 1249777083) CL (test code = 105 mmol/L 98-108 1115079902) CO2 TOTAL (test code = 24 mmol/L 23-31 0171246805) AGAP (test code = 2-16 4235268636) BUN (test code = 12 mg/dL 7-23 4012234901) GLUCOSE (test code = 95 mg/dL 70-110 3473364759) CREATININE (test code = 0.67 mg/dL 0.60-1.25 2828592797) CALCIUM (test code = 8.4 mg/dL 8.6-10.6 L 6956901655) eGFR (test code = mL/min/1.73m2 6465007637) POP (test code = POP) Association of [...] tests). Lab Interpretation Abnormal (test code = 80515-7) [facility] 11:17:07 Test Item Value Reference Range Interpretation Comments MAGNESIUM (test code = 3122138750) 1.6 mg/dL 1.7-2.4 L Lab Interpretation (test code = Abnormal 56126-4) [facility] WITH [id number] 11:03:06 Test Item Value Reference Range Interpretation Comments WBC (test code = See_Comment H [Automated 4290-2) message] The sy stem which generated this result transmitted reference range : 4.20 - 10.70 10*3/?L. The reference range was not used to interpret this result as normal/abnormal . RBC (test code = See_Comment L [Automated 7598) message] The sy stem which generated this [...] (test code = 56.0 fL 38.5-51.6 H 72336-2) RDW-CV (test code = 17.9 % 12.1-15.4 H 788-0) PLT (test code = See_Comment H [Automated 777-3) message] The sy stem which generated this result transmitted reference range : 150 - 328 10*3/ ?L. The reference r jalen was not used to interpret this result as normal/abnormal . MPV (test code = 9.2 fL 9.8-13.0 L 13980-9) NRBC/100 WBC (test See_Comment [Automat ed code = 6702028342) message] The system which generated this result transmitted reference range : 0.0 - 10.0 /100 WBCs. The refer ence range was not u sed to interpret th is result as normal/abnormal . NRBC x10^3 (test code See_Comment [Auto mated = 7864317859) message] The s ystem which generated this result transmitted reference range : 10*3/?L. The reference range was not used to interpret this result as normal/abnormal . GRAN MAT (NEUT) % 75.7 % (test code = 770-8) IMM GRAN % (test code 1.00 % = 8485448474) LYMPH % (test code = 15.5 % 736-9) MONO % (test code = 5.3 % 5905-5) EOS % (test code = 2.0 % 713-8) BASO % (test code = 0.5 % 706-2) GRAN MAT x10^3(ANC) 9.81 10*3/uL 1.99-6.95 H (test code = 1521253008) IMM GRAN x10^3 (test 0.13 10*3/uL 0.00-0.06 H code = 3554492604) LYMPH x10^3 (test code 2.01 10*3/uL 1.09-3.23 = 731-0) MONO x10^3 (test code 0.69 10*3/uL 0.36-1.02 = 742-7) EOS x10^3 (test code = 0.26 10*3/uL 0.06-0.53 711-2) BASO x10^3 (test code 0.06 10*3/uL 0.01-0.09 = 704-7) Lab Interpretation Abnormal (test code = 08631-5) [facility] WITH [id number] 11:03:06 Test Item Value Reference Range Interpretation [...] (test code = 56.0 fL 38.5-51.6 H 61518-8) RDW-CV (test code = 17.9 % 12.1-15.4 H 788-0) PLT (test code = See_Comment H [Automated 777-3) message] The sy stem which generated this result transmitted reference range : 150 - 328 10*3/ ?L. The reference r jalen was not used to interpret this result as normal/abnormal . MPV (test code = 9.2 fL 9.8-13.0 L 40173-7) NRBC/100 WBC (test See_Comment [Automat ed code = 3619593195) message] The system which generated this result transmitted reference range : 0.0 - 10.0 /100 WBCs. The refer ence range was not u sed to interpret th is result as normal/abnormal . NRBC x10^3 (test code See_Comment [Auto mated = 2632075263) message] The s ystem which generated this result transmitted reference range : 10*3/?L. The reference range was not used to interpret this result as normal/abnormal . GRAN MAT (NEUT) % 75.7 % (test code = 770-8) IMM GRAN % (test code 1.00 % = 2676675422) LYMPH % (test code = 15.5 % 736-9) MONO % (test code = 5.3 % 5905-5) EOS % (test code = 2.0 % 713-8) BASO % (test code = 0.5 % 706-2) GRAN MAT x10^3(ANC) 9.81 10*3/uL 1.99-6.95 H (test code = 9759150187) IMM GRAN x10^3 (test 0.13 10*3/uL 0.00-0.06 H code = 0742915505) LYMPH x10^3 (test code 2.01 10*3/uL 1.09-3.23 = 731-0) MONO x10^3 (test code 0.69 10*3/uL 0.36-1.02 = 742-7) EOS x10^3 (test code = 0.26 10*3/uL 0.06-0.53 711-2) BASO x10^3 (test code 0.06 10*3/uL 0.01-0.09 = 704-7) Lab Interpretation Abnormal (test code = 90509-0) [facility] GLUCOSE (AUTOMATED)2021-03-29 22:21:18 Test Item Value Reference Range Interpretation Comments POCT GLU (test code = 4133190186) 130 mg/dL 70-110 H Lab Interpretation (test code = Abnormal 22188-2) [facility] GLUCOSE (AUTOMATED)2021-03-29 22:21:18 Test Item Value Reference Range Interpretation Comments POCT GLU (test code = 7846966698) 130 mg/dL 70-110 H Lab Interpretation (test code = Abnormal 84669-9) [facility] LOW MOLECULAR WEIGHT HEPARIN 2021-03-29 [...] administration. Lab Interpretation Abnormal (test code = 99031-4) [facility] AN[facility]-XA, LOW MOLECULAR WEIGHT HEPARIN 2021-03-29 [...] administration. Lab Interpretation Abnormal (test code = 83331-4) [facility] WITHOUT [id number] 18:48:40 Test Item Value Reference Range Interpretation Comments WBC (test code = 6690-2) See_Comment H [A utomated message] The system [employer] generated this result transmit qing reference range : 4.20 - 10.70 10*3/?L. The reference range was not used to interpret this result as normal/abnormal . RBC (test code = 789-8) See_Comment L [Au tomated message] The system [employer] generated this result transmit qing reference range [...] See_Comment H [Au tomated message] The [facility] generated this result transmit qing reference range : 150 - 328 10*3/?L. The reference range was not used to interpret this result as normal/abnormal . MPV (test code = 9.4 fL 9.8-13.0 L 84794-7) RDW-CV (test code = 17.2 % 12.1-15.4 H 788-0) RDW-SD (test code = 53.2 fL 38.5-51.6 H 91907-5) NRBC x10^3 (test code = <0.01 See_Comment [Au tomated message] 0262368898) The system [facility] generated this result transmit qing reference range : 10*3/?L. The reference range was not used to interpret this result as normal/abnormal . NRBC/100 WBC (test code See_Comment [Au tomated message] = 7367232426) The system [facility] generated this result transmit qing reference range : 0.0 - 10.0 /100 WBC s. The reference r jalen was not used to interpret this result as normal/abnormal . IPF % (test code = 1873037819) Lab Interpretation (test Abnormal code = 25942-7) [facility] WITHOUT [id number] 18:48:40 Test Item Value Reference Range Interpretation Comments WBC (test code = 6690-2) See_Comment H [A utomated message] The system [facility] generated this result transmit qing reference range : 4.20 - 10.70 10*3/?L. The reference range was not used to interpret this result as normal/abnormal . RBC (test code = 789-8) See_Comment L [Au tomated message] The system [facility] generated this result transmit qing reference [...] See_Comment H [Au tomated message] The system [facility] generated this result transmit qing reference range : 150 - 328 10*3/?L. The reference range was not used to interpret this result as normal/abnormal . MPV (test code = 9.4 fL 9.8-13.0 L 60135-8) RDW-CV (test code = 17.2 % 12.1-15.4 H 788-0) RDW-SD (test code = 53.2 fL 38.5-51.6 H 74455-3) NRBC x10^3 (test code = <0.01 See_Comment [Au tomated message] 9496242600) [facility] generated this result transmit qing reference range : 10*3/?L. The reference range was not used to interpret this result as normal/abnormal . NRBC/100 WBC (test code See_Comment [Au tomated message] = 9181633092) The system [facility] generated this result transmit qing reference range : 0.0 - 10.0 /100 WBC s. The reference r jalen was not used to interpret this result as normal/abnormal . IPF % (test code = 8999795686) Lab Interpretation (test Abnormal code = 58503-4) [facility] GLUCOSE (AUTOMATED)2021-03-29 18:08:42 Test Item Value Reference Range Interpretation Comments POCT GLU (test code = 0426525374) 135 mg/dL 70-110 H Lab Interpretation (test code = Abnormal 23820-7) [facility] GLUCOSE (AUTOMATED)2021-03-29 18:08:42 Test Item Value Reference Range Interpretation Comments POCT GLU (test code = 1630888103) 135 mg/dL 70-110 H Lab Interpretation (test code = Abnormal 64119-4) [facility] 1 Units 2021-03-29 15:56:11 Test Item Value Reference Range Interpretation Comments Cross Match Result Compatible (test code = 4409) ISBT Blood Type Code (test code = 454831) Unit Blood Type (test A Pos code = 4410) Unit Number (test [id number] code = 4411) Blood Expiration Date & Time (test code = 253807) Status Information Issued (test code = 4412) Product Red Blood Cells Identification (test code = 4413) Product Code (test G7368X31 Performed at [facility] code = 4414) Laboratory Services [address] [address]Wplz Free: [phone] A No. [id number] [facility] Packed RBC (in units), 1 Units 2021-03-29 15:56:11 Test Item Value Reference Range Interpretation Comments Cross Match Result Compatible (test code = 4409) ISBT Blood Type Code (test code = 445759) Unit Blood Type (test A Pos code = 4410) Unit Number (test [id number] code = 4411) Blood Expiration Date & Time (test code = 835956) Status Information Issued (test code = 4412) Product Red Blood Cells Identification (test code = 4413) Product Code (test C9398N07 Performed at [facility] code = 4414) [facility] Services [address] [place] [address]Tzme Free: [phone] A No. [id number] [facility] Packed RBC (in units), 1 Units 2021-03-29 15:56:11 Test Item Value Reference Range Interpretation Comments Cross Match Result Compatible (test code = 4409) ISBT Blood Type Code (test code = 263292) Unit Blood Type (test A Pos code = 4410) Unit Number (test [id number] code = 4411) Blood Expiration Date & Time (test code = 595927) Status Information Issued (test code = 4412) Product Red Blood Cells Identification (test code = 4413) Product Code (test Y5822I82 Performed at [facility] code = 4414) Laboratory Services - [address], [place] [address]Ydsa Free: [phone] A No. [id number] [facility] GLUCOSE (AUTOMATED)2021-03-29 13:25:05 Test Item Value Reference Range Interpretation Comments POCT GLU (test code = 8823524036) 115 mg/dL 70-110 H Lab Interpretation (test code = Abnormal 30442-7) [facility] GLUCOSE (AUTOMATED)2021-03-29 13:25:05 Test Item Value Reference Range Interpretation Comments POCT GLU (test code = 5577752030) 115 mg/dL 70-110 H Lab Interpretation (test code = Abnormal 23643-9) [facility] GLUCOSE (AUTOMATED)2021-03-29 13:25:05 Test Item Value Reference Range Interpretation Comments POCT GLU (test code = 8259658449) 115 mg/dL 70-110 H Lab Interpretation (test code = Abnormal 55568-1) [facility] Test Item Value Reference Range Interpretation Comments MAGNESIUM (test code = 3968383790) 1.7 mg/dL 1.7-2.4 Lab Interpretation (test code = Normal 95523-6) [facility]:08:09 Test Item Value Reference Range Interpretation Comments MAGNESIUM (test code = 5616950480) 1.7 mg/dL 1.7-2.4 Lab Interpretation (test code = Normal 41075-0) [facility]08[facility]09 Test Item Value Reference Range Interpretation Comments MAGNESIUM (test code = 0392233267) 1.7 mg/dL 1.7-2.4 Lab Interpretation (test code = Normal 15502-9) [facility] METABOLIC PANEL (NA, K, CL, CO2, GLUCOSE, BUN, CREATININE, CA)2021-03-29 12:34:45 Test Item Value Reference Range Interpretation Comments NA (test code = 133 mmol/L 135-145 L 8348835394) K (test code = 4.1 mmol/L 3.5-5.0 1374786412) CL (test code = 106 mmol/L 98-108 1257919823) CO2 TOTAL (test code = 23 mmol/L 23-31 0105375538) AGAP (test code = 2-16 8332718501) BUN (test code = 17 mg/dL 7-23 7558634865) GLUCOSE (test code = 106 mg/dL 70-110 2211803016) CREATININE (test code = 0.73 mg/dL 0.60-1.25 6024495046) CALCIUM (test code = 8.2 mg/dL 8.6-10.6 L 4369550124) eGFR (test code = mL/min/1.73m2 1232871042) POP (test code = POP) Association of [...] tests). Lab Interpretation Abnormal (test code = 94891-8) [facility] METABOLIC PANEL (NA, K, CL, CO2, GLUCOSE, BUN, CREATININE, CA)2021-03-29 12:34:45 Test Item Value Reference Range Interpretation Comments NA (test code = 133 mmol/L 135-145 L 2581039410) K (test code = 4.1 mmol/L 3.5-5.0 8281706956) CL (test code = 106 mmol/L 98-108 0805594084) CO2 TOTAL (test code = 23 mmol/L 23-31 4073474129) AGAP (test code = 2-16 0114440045) BUN (test code = 17 mg/dL 7-23 1542774818) GLUCOSE (test code = 106 mg/dL 70-110 8643591503) CREATININE (test code = 0.73 mg/dL 0.60-1.25 5696502573) CALCIUM (test code = 8.2 mg/dL 8.6-10.6 L 0719671676) eGFR (test code = mL/min/1.73m2 7833079410) POP (test code = POP) Association of [...] tests). Lab Interpretation Abnormal (test code = 32031-8) [facility] METABOLIC PANEL (NA, K, CL, CO2, GLUCOSE, BUN, CREATININE, CA)2021-03-29 12:34:45 Test Item Value Reference Range Interpretation Comments NA (test code = 133 mmol/L 135-145 L 4542418127) K (test code = 4.1 mmol/L 3.5-5.0 6545882613) CL (test code = 106 mmol/L 98-108 1461008745) CO2 TOTAL (test code = 23 mmol/L 23-31 6207462722) AGAP (test code = 2-16 3234004094) BUN (test code = 17 mg/dL 7-23 2136749761) GLUCOSE (test code = 106 mg/dL 70-110 3119117866) CREATININE (test code = 0.73 mg/dL 0.60-1.25 2361496759) CALCIUM (test code = 8.2 mg/dL 8.6-10.6 L 2113903492) eGFR (test code = mL/min/1.73m2 3671355851) POP (test code = POP) Association of [...] tests). Lab Interpretation Abnormal (test code = 57300-4) [facility] WITH [id number] 12:03:02 Test Item Value Reference Range Interpretation [...] (test code = 54.0 fL 38.5-51.6 H 54407-0) RDW-CV (test code = 16.9 % 12.1-15.4 H 788-0) PLT (test code = See_Comment H [Automated 777-3) message] The system which generated this result transmit qing reference range : 150 - 328 10*3/ ?L. The reference range was not u sed to interpret th is result as normal/abnormal . MPV (test code = 9.1 fL 9.8-13.0 L 34537-8) NRBC/100 WBC (test See_Comment [Automat ed code = 6358573750) message] The system which generated this result transmit qing reference range : 0.0 - 10.0 /100 WBCs. The reference range was not used to interpret this result as normal/abnormal . NRBC x10^3 (test code See_Comment [Auto mated = 8448099213) message] The system which generated this result transmit qing reference range : 10*3/?L. The reference range was not used to interpret this result as normal/abnormal . GRAN MAT (NEUT) % 78.0 % (test code = 770-8) IMM GRAN % (test code 0.60 % = 9365859957) LYMPH % (test code = 14.3 % 736-9) MONO % (test code = 5.5 % 5905-5) EOS % (test code = 1.2 % 713-8) BASO % (test code = 0.4 % 706-2) GRAN MAT x10^3(ANC) 11.69 10*3/uL 1.99-6.95 H (test code = 7630910339) IMM GRAN x10^3 (test 0.09 10*3/uL 0.00-0.06 H code = 7933341733) LYMPH x10^3 (test code 2.14 10*3/uL 1.09-3.23 = 731-0) MONO x10^3 (test code 0.82 10*3/uL 0.36-1.02 = 742-7) EOS x10^3 (test code = 0.18 10*3/uL 0.06-0.53 711-2) BASO x10^3 (test code 0.06 10*3/uL 0.01-0.09 = 704-7) Lab Interpretation Abnormal (test code = 87608-6) [facility] WITH [id number] 12:03:02 Test Item Value Reference Range Interpretation [...] (test code = 54.0 fL 38.5-51.6 H 55586-0) RDW-CV (test code = 16.9 % 12.1-15.4 H 788-0) PLT (test code = See_Comment H [Automated 777-3) message] The system which generated this result transmit qing reference range : 150 - 328 10*3/ ?L. The reference range was not u sed to interpret th is result as normal/abnormal . MPV (test code = 9.1 fL 9.8-13.0 L 89598-1) NRBC/100 WBC (test See_Comment [Automat ed code = 3011544846) message] The system which generated this result transmit qing reference range : 0.0 - 10.0 /100 WBCs. The reference range was not used to interpret this result as normal/abnormal . NRBC x10^3 (test code See_Comment [Auto mated = 0298576364) message] The system which generated this result transmit qing reference range : 10*3/?L. The reference range was not used to interpret this result as normal/abnormal . GRAN MAT (NEUT) % 78.0 % (test code = 770-8) IMM GRAN % (test code 0.60 % = 1931851680) LYMPH % (test code = 14.3 % 736-9) MONO % (test code = 5.5 % 5905-5) EOS % (test code = 1.2 % 713-8) BASO % (test code = 0.4 % 706-2) GRAN MAT x10^3(ANC) 11.69 10*3/uL 1.99-6.95 H (test code = 9880194353) IMM GRAN x10^3 (test 0.09 10*3/uL 0.00-0.06 H code = 4831921544) LYMPH x10^3 (test code 2.14 10*3/uL 1.09-3.23 = 731-0) MONO x10^3 (test code 0.82 10*3/uL 0.36-1.02 = 742-7) EOS x10^3 (test code = 0.18 10*3/uL 0.06-0.53 711-2) BASO x10^3 (test code 0.06 10*3/uL 0.01-0.09 = 704-7) Lab Interpretation Abnormal (test code = 02073-5) [facility] WITH [id number] 12:03:02 Test Item Value Reference Range Interpretation [...] (test code = 54.0 fL 38.5-51.6 H 05528-1) RDW-CV (test code = 16.9 % 12.1-15.4 H 788-0) PLT (test code = See_Comment H [Automated 777-3) message] The system which generated this result transmit qing reference range : 150 - 328 10*3/ ?L. The reference range was not u sed to interpret th is result as normal/abnormal . MPV (test code = 9.1 fL 9.8-13.0 L 49953-7) NRBC/100 WBC (test See_Comment [Automat ed code = 3786864666) message] The system which generated this result transmit qing reference range : 0.0 - 10.0 /100 WBCs. The reference range was not used to interpret this result as normal/abnormal . NRBC x10^3 (test code See_Comment [Auto mated = 5133914492) message] The system which generated this result transmit qing reference range : 10*3/?L. The reference range was not used to interpret this result as normal/abnormal . GRAN MAT (NEUT) % 78.0 % (test code = 770-8) IMM GRAN % (test code 0.60 % = 2352285377) LYMPH % (test code = 14.3 % 736-9) MONO % (test code = 5.5 % 5905-5) EOS % (test code = 1.2 % 713-8) BASO % (test code = 0.4 % 706-2) GRAN MAT x10^3(ANC) 11.69 10*3/uL 1.99-6.95 H (test code = 9235772539) IMM GRAN x10^3 (test 0.09 10*3/uL 0.00-0.06 H code = 9757307638) LYMPH x10^3 (test code 2.14 10*3/uL 1.09-3.23 = 731-0) MONO x10^3 (test code 0.82 10*3/uL 0.36-1.02 = 742-7) EOS x10^3 (test code = 0.18 10*3/uL 0.06-0.53 711-2) BASO x10^3 (test code 0.06 10*3/uL 0.01-0.09 = 704-7) Lab Interpretation Abnormal (test code = 25470-7) [facility] WITHOUT [id number] 23:07:41 Test Item Value Reference Range Interpretation Comments WBC (test code = 6690-2) See_Comment H [A utomated message] The system [facility] generated this result transmit qing reference range : 4.20 - 10.70 10*3/?L. The reference range was not used to interpret this result as normal/abnormal . RBC (test code = 789-8) See_Comment L [Au tomated message] The system [employer] generated this result transmit qing reference range [...] See_Comment H [Au tomated message] [facility] generated this result transmit qing reference range : 150 - 328 10*3/?L. The reference range was not used to interpret this result as normal/abnormal . MPV (test code = 9.2 fL 9.8-13.0 L 34751-3) RDW-CV (test code = 16.3 % 12.1-15.4 H 788-0) RDW-SD (test code = 50.1 fL 38.5-51.6 79280-5) NRBC x10^3 (test code = <0.01 See_Comment [Au tomated message] 9807963260) The system [employer] generated this result transmit qing reference range : 10*3/?L. The reference range was not used to interpret this result as normal/abnormal . NRBC/100 WBC (test code See_Comment [Au tomated message] = 4590674324) The system [facility] generated this result transmit qing reference range : 0.0 - 10.0 /100 WBC s. The reference r jalen was not used to interpret this result as normal/abnormal . IPF % (test code = 3228320262) Lab Interpretation (test Abnormal code = 31903-1) [facility] WITHOUT [id number] 23:07:41 Test Item Value Reference Range Interpretation Comments WBC (test code = 6690-2) See_Comment H [A utomated message] The system [employer] generated this result transmit qing reference range : 4.20 - 10.70 10*3/?L. The reference range was not used to interpret this result as normal/abnormal . RBC (test code = 789-8) See_Comment L [Au tomated message] The system [employer] generated this result transmit qing reference range [...] See_Comment H [Au tomated message] The [facility] generated this result transmit qing reference range : 150 - 328 10*3/?L. The reference range was not used to interpret this result as normal/abnormal . MPV (test code = 9.2 fL 9.8-13.0 L 06602-6) RDW-CV (test code = 16.3 % 12.1-15.4 H 788-0) RDW-SD (test code = 50.1 fL 38.5-51.6 00260-7) NRBC x10^3 (test code = <0.01 See_Comment [Au tomated message] 9406799335) The system [employer] generated this result transmit qing reference range : 10*3/?L. The reference range was not used to interpret this result as normal/abnormal . NRBC/100 WBC (test code See_Comment [Au tomated message] = 5541854537) The system [facility] generated this result transmit qing reference range : 0.0 - 10.0 /100 WBC s. The reference r jalen was not used to interpret this result as normal/abnormal . IPF % (test code = 4358974896) Lab Interpretation (test Abnormal code = 93975-1) [facility] WITHOUT [id number] 23:07:41 Test Item Value Reference Range Interpretation Comments WBC (test code = 6690-2) See_Comment H [A utomated message] The system [employer] generated this result transmit qing reference range : 4.20 - 10.70 10*3/?L. The reference range was not used to interpret this result as normal/abnormal . RBC (test code = 789-8) See_Comment L [Au tomated message] The system [employer] generated this result transmit qing reference range [...] See_Comment H [Au tomated message] The system [employer] generated this result transmit qing reference range : 150 - 328 10*3/?L. The reference range was not used to interpret this result as normal/abnormal . MPV (test code = 9.2 fL 9.8-13.0 L 59642-5) RDW-CV (test code = 16.3 % 12.1-15.4 H 788-0) RDW-SD (test code = 50.1 fL 38.5-51.6 82073-5) NRBC x10^3 (test code = <0.01 See_Comment [Au tomated message] 4163620742) The system [employer] generated this result transmit qing reference range : 10*3/?L. The reference range was not used to interpret this result as normal/abnormal . NRBC/100 WBC (test code See_Comment [Au tomated message] = 1367118679) The system [employer] generated this result transmit qing reference range : 0.0 - 10.0 /100 WBC s. The reference r jalen was not used to interpret this result as normal/abnormal . IPF % (test code = 5327780039) Lab Interpretation (test Abnormal code = 61984-2) [facility] GLUCOSE (AUTOMATED)2021-03-28 22:17:56 Test Item Value Reference Range Interpretation Comments POCT GLU (test code = 4073874590) 111 mg/dL 70-110 H Lab Interpretation (test code = Abnormal 76948-3) [facility] GLUCOSE (AUTOMATED)2021-03-28 22:17:56 Test Item Value Reference Range Interpretation Comments POCT GLU (test code = 8825869852) 111 mg/dL 70-110 H Lab Interpretation (test code = Abnormal 35631-2) [facility] GLUCOSE (AUTOMATED)2021-03-28 17:09:55 Test Item Value Reference Range Interpretation Comments POCT GLU (test code = 4784303960) 112 mg/dL 70-110 H Lab Interpretation (test code = Abnormal 76907-2) [facility] GLUCOSE (AUTOMATED)2021-03-28 17:09:55 Test Item Value Reference Range Interpretation Comments POCT GLU (test code = 4831736112) 112 mg/dL 70-110 H Lab Interpretation (test code = Abnormal 56667-2) [facility] GLUCOSE (AUTOMATED)2021-03-28 13:13:42 Test Item Value Reference Range Interpretation Comments POCT GLU (test code = 8785962634) 90 mg/dL 70-110 Lab Interpretation (test code = Normal 71255-2) [facility] GLUCOSE (AUTOMATED)2021-03-28 13:13:42 Test Item Value Reference Range Interpretation Comments POCT GLU (test code = 9659769292) 90 mg/dL 70-110 Lab Interpretation (test code = Normal 89202-2) [facility] METABOLIC PANEL (NA, K, CL, CO2, GLUCOSE, BUN, CREATININE, CA)2021-03-28 11:25:09 Test Item Value Reference Range Interpretation Comments NA (test code = 135 mmol/L 135-145 3933292759) K (test code = 4.0 mmol/L 3.5-5.0 9704464319) CL (test code = 107 mmol/L 98-108 9003171523) CO2 TOTAL (test code = 23 mmol/L 23-31 0042052938) AGAP (test code = 2-16 8560016400) BUN (test code = 20 mg/dL 7-23 9550442232) GLUCOSE (test code = 82 mg/dL 70-110 4951557579) CREATININE (test code = 0.76 mg/dL 0.60-1.25 1547000422) CALCIUM (test code = 8.3 mg/dL 8.6-10.6 L 3087767061) eGFR (test code = mL/min/1.73m2 9112153585) POP (test code = POP) Association of [...] tests). Lab Interpretation Abnormal (test code = 44826-5) [facility] METABOLIC PANEL (NA, K, CL, CO2, GLUCOSE, BUN, CREATININE, CA)2021-03-28 11:25:09 Test Item Value Reference Range Interpretation Comments NA (test code = 135 mmol/L 135-145 0916591081) K (test code = 4.0 mmol/L 3.5-5.0 1917560676) CL (test code = 107 mmol/L 98-108 4154005913) CO2 TOTAL (test code = 23 mmol/L 23-31 2828155529) AGAP (test code = 2-16 5489575858) BUN (test code = 20 mg/dL 7-23 8129815975) GLUCOSE (test code = 82 mg/dL 70-110 3862768771) CREATININE (test code = 0.76 mg/dL 0.60-1.25 5097007659) CALCIUM (test code = 8.3 mg/dL 8.6-10.6 L 0745055735) eGFR (test code = mL/min/1.73m2 8188294017) POP (test code = POP) Association of [...] tests). Lab Interpretation Abnormal (test code = 19939-3) [facility] [id number] 11:10:29 Test Item Value Reference Range Interpretation Comments APTT Patient (test code = See_Comment [ Automated message] 3173-2) The system [employer] generated this result transmitted ref erence range: 26 - 36 Seconds. The re ference range was not u sed to interpret this result as normal/abnor mal. Lab Interpretation (test Normal code = 61288-0) [facility] [id number] 11:10:29 Test Item Value Reference Range Interpretation Comments APTT Patient (test code = See_Comment [ Automated message] 3173-2) The system [employer] generated this result transmitted ref erence range: 26 - 36 Seconds. The re ference range was not u sed to interpret this result as normal/abnor mal. Lab Interpretation (test Normal code = 33942-7) [facility] [id number] 11:10:29 Test Item Value Reference Range Interpretation Comments APTT Patient (test code = See_Comment [ Automated message] 3173-2) The system [employer] generated this result transmitted ref erence range: 26 - 36 Seconds. The re ference range was not u sed to interpret this result as normal/abnor mal. Lab Interpretation (test Normal code = 97735-2) [facility] / [id number] 11:10:28 Test Item Value Reference Range Interpretation Comments PROTIME PATIENT (test See_Comment H [Auto mated message] code = 5964-2) The system [employer] generated this result transmitted ref erence range: 10.1 - 1 2.6 Seconds. The reference range was not used to int erpret this result as normal/abnormal . INR (test code = 6301-6) Nor mal INR <1.1; Warfarin Therap eutic range 2.0 to 3. 0 or 2.5 to 3.5, dep ending upon the indica tions. Lab Interpretation (test Abnormal code = 26644-6) [facility] / [id number] 11:10:28 Test Item Value Reference Range Interpretation Comments PROTIME PATIENT (test See_Comment H [Auto mated message] code = 5964-2) The system [employer] generated this result transmitted ref erence range: 10.1 - 1 2.6 Seconds. The reference range was not used to int erpret this result as normal/abnormal . INR (test code = 6301-6) Nor mal INR <1.1; Warfarin Therap eutic range 2.0 to 3. 0 or 2.5 to 3.5, dep ending upon the indica tions. Lab Interpretation (test Abnormal code = 82201-4) [facility] / [id number] 11:10:28 Test Item Value Reference Range Interpretation Comments PROTIME PATIENT (test See_Comment H [Auto mated message] code = 5964-2) The system [employer] generated this result transmitted ref erence range: 10.1 - 1 2.6 Seconds. The reference range was not used to int erpret this result as normal/abnormal . INR (test code = 6301-6) Nor mal INR <1.1; Warfarin Therap eutic range 2.0 to 3. 0 or 2.5 to 3.5, dep ending upon the indica tions. Lab Interpretation (test Abnormal code = 08979-0) [facility] [id number] 11:00:28 Test Item Value Reference Range Interpretation Comments WBC (test code = 6690-2) See_Comment H [A utomated message] The system [employer] generated this result transmit qing reference range : 4.20 - 10.70 10*3/?L. The reference range was not used to interpret this result as normal/abnormal . RBC (test code = 789-8) See_Comment L [Au tomated message] The system [employer] generated this result transmit qing reference range [...] See_Comment H [Au tomated message] The system [facility] generated this result transmit qing reference range : 150 - 328 10*3/?L. The reference range was not used to interpret this result as normal/abnormal . MPV (test code = 9.1 fL 9.8-13.0 L 10653-6) RDW-CV (test code = 15.4 % 12.1-15.4 788-0) RDW-SD (test code = 49.9 fL 38.5-51.6 09359-6) NRBC x10^3 (test code = See_Comment [Au tomated message] 9981205099) The system [facility] generated this result transmit qing reference range : 10*3/?L. The reference range was not used to interpret this result as normal/abnormal . NRBC/100 WBC (test code See_Comment [Au tomated message] = 0134598663) The system [facility] generated this result transmit qing reference range : 0.0 - 10.0 /100 WBC s. The reference r jalen was not used to interpret this result as normal/abnormal . IPF % (test code = 0300652584) Lab Interpretation (test Abnormal code = 88305-4) [facility] WITHOUT [id number] 11:00:28 Test Item Value Reference Range Interpretation Comments WBC (test code = 6690-2) See_Comment H [A utomated message] The system [facility] generated this result transmit qing reference range : 4.20 - 10.70 10*3/?L. The reference range was not used to interpret this result as normal/abnormal . RBC (test code = 789-8) See_Comment L [Au tomated message] The system [facility] generated this result transmit qing reference [...] See_Comment H [Au tomated message] The system [facility] generated this result transmit qing reference range : 150 - 328 10*3/?L. The reference range was not used to interpret this result as normal/abnormal . MPV (test code = 9.1 fL 9.8-13.0 L 24497-3) RDW-CV (test code = 15.4 % 12.1-15.4 788-0) RDW-SD (test code = 49.9 fL 38.5-51.6 75486-9) NRBC x10^3 (test code = See_Comment [Au tomated message] 3691322780) The system [facility] generated this result transmit qing reference range : 10*3/?L. The reference range was not used to interpret this result as normal/abnormal . NRBC/100 WBC (test code See_Comment [Au tomated message] = 8203613503) The system [facility] generated this result transmit qing reference range : 0.0 - 10.0 /100 WBC s. The reference r jalen was not used to interpret this result as normal/abnormal . IPF % (test code = 8205124056) Lab Interpretation (test Abnormal code = 14257-2) [facility] (in units), 1 Units 2021-03-28 04:56:39 Test Item Value Reference Range Interpretation Comments Cross Match Result Compatible (test code = 4409) ISBT Blood Type Code (test code = 799663) Unit Blood Type (test A Pos code = 4410) Unit Number (test [id number] code = 4411) Blood Expiration Date & Time (test code = 654884) Status Information Issued (test code = 4412) Product Red Blood Cells Identification (test code = 4413) Product Code (test [id number] Performed at [facility] code = 4414) Laboratory Services - [facility] Blood [address] s [address]Ixwo Free: [phone] A No. [id number] [facility] RBC (in units), 1 Units 2021-03-28 04:56:39 Test Item Value Reference Range Interpretation Comments Cross Match Result Compatible (test code = 4409) ISBT Blood Type Code (test code = 034418) Unit Blood Type (test A Pos code = 4410) Unit Number (test [id number] code = 4411) Blood Expiration Date & Time (test code = 437954) Status Information Issued (test code = 4412) Product Red Blood Cells Identification (test code = 4413) Product Code (test [id number] Performed at [facility] code = 4414) Laboratory Services - [facility] Blood [address] [address]Gpsf Free: [phone] A No. [id number] [facility] [id number] 03:47:19 Test Item Value Reference Range Interpretation Comments WBC (test code = 6690-2) See_Comment H [A utomated message] The system [employer] generated this result transmit qing reference range : 4.20 - 10.70 10*3/?L. The reference range was not used to interpret this result as normal/abnormal . RBC (test code = 789-8) See_Comment L [Au tomated message] The system [employer] generated this result transmit qing reference range [...] See_Comment H [Au tomated message] The system [facility] generated this result transmit qing reference range : 150 - 328 10*3/?L. The reference range was not used to interpret this result as normal/abnormal . MPV (test code = 9.0 fL 9.8-13.0 L 13060-6) RDW-CV (test code = 15.5 % 12.1-15.4 H 788-0) RDW-SD (test code = 51.8 fL 38.5-51.6 H 61718-1) NRBC x10^3 (test code = See_Comment [Au tomated message] 3826769081) The system [facility] generated this result transmit qing reference range : 10*3/?L. The reference range was not used to interpret this result as normal/abnormal . NRBC/100 WBC (test code See_Comment [Au tomated message] = 9682299256) The system [facility] generated this result transmit qing reference range : 0.0 - 10.0 /100 WBC s. The reference r jalen was not used to interpret this result as normal/abnormal . IPF % (test code = 0505380594) Lab Interpretation (test Abnormal code = 06549-1) [facility] WITHOUT [id number] 03:47:19 Test Item Value Reference Range Interpretation Comments WBC (test code = 6690-2) See_Comment H [A utomated message] The system [facility] generated this result transmit qing reference range : 4.20 - 10.70 10*3/?L. The reference range was not used to interpret this result as normal/abnormal . RBC (test code = 789-8) See_Comment L [Au tomated message] The system [facility] generated this result transmit qing reference [...] See_Comment H [Au tomated message] The system [employer] generated this result transmit qing reference range : 150 - 328 10*3/?L. The reference range was not used to interpret this result as normal/abnormal . MPV (test code = 9.0 fL 9.8-13.0 L 51055-8) RDW-CV (test code = 15.5 % 12.1-15.4 H 788-0) RDW-SD (test code = 51.8 fL 38.5-51.6 H 89482-3) NRBC x10^3 (test code = See_Comment [Au tomated message] 0521207776) The system [employer] generated this result transmit qing reference range : 10*3/?L. The reference range was not used to interpret this result as normal/abnormal . NRBC/100 WBC (test code See_Comment [Au tomated message] = 9045925575) The system [facility] generated this result transmit qing reference range : 0.0 - 10.0 /100 WBC s. The reference r jalen was not used to interpret this result as normal/abnormal . IPF % (test code = 6192453654) Lab Interpretation (test Abnormal code = 30275-7) [facility] CONSULT [id number] 00:38:08 LEUKOCYTOSIS WITH ABSOLUTE NEUTROPHILIA. NORMOCYTIC NORMOCHROMIC ANEMIA. THROMBOCYTOSIS.[facility] CONSULT INTERPRETATION 2021-03-28 00:38:08LEUKOCYTOSIS WITH ABSOLUTE NEUTROPHILIA. NORMOCYTIC NORMOCHROMIC ANEMIA. THROMBOCYTOSIS.[facility] CONSULT [id number] 00:38:08LEUKOCYTOSIS WITH ABSOLUTE NEUTROPHILIA. NORMOCYTIC NORMOCHROMIC ANEMIA. THROMBOCYTOSIS.[facility] WITHOUT [id number] 22:31:43 Test Item Value Reference Range Interpretation Comments WBC (test code = 6690-2) See_Comment H [A utomated message] The system [facility] [employer] generated this result transmit qing reference range : 4.20 - 10.70 10*3/?L. The reference range was not used to interpret this result as normal/abnormal . RBC (test code = 789-8) See_Comment L [Au tomated message] The system [facility] generated this result transmit qing reference [...] See_Comment H [Au tomated message] The system [facility] generated this result transmit qing reference range : 150 - 328 10*3/?L. The reference range was not used to interpret this result as normal/abnormal . MPV (test code = 9.4 fL 9.8-13.0 L 26261-7) RDW-CV (test code = 15.4 % 12.1-15.4 788-0) RDW-SD (test code = 52.7 fL 38.5-51.6 H 77506-7) NRBC x10^3 (test code = See_Comment [Au tomated message] 9545675986) The system [facility] generated this result transmit qing reference range : 10*3/?L. The reference range was not used to interpret this result as normal/abnormal . NRBC/100 WBC (test code See_Comment [Au tomated message] = 9145733478) The system [facility] generated this result transmit qing reference range : 0.0 - 10.0 /100 WBC s. The reference r jalen was not used to interpret this result as normal/abnormal . IPF % (test code = 9652271344) Lab Interpretation (test Abnormal code = 59527-0) [facility] WITHOUT [id number] 22:31:43 Test Item Value Reference Range Interpretation Comments WBC (test code = 6690-2) See_Comment H [A utomated message] The system [employer] generated this result transmit qing reference range : 4.20 - 10.70 10*3/?L. The reference range was not used to interpret this result as normal/abnormal . RBC (test code = 789-8) See_Comment L [Au tomated message] The system [employer] generated this result transmit qing reference range [...] See_Comment H [Au tomated message] The system [employer] generated this result transmit qing reference range : 150 - 328 10*3/?L. The reference range was not used to interpret this result as normal/abnormal . MPV (test code = 9.4 fL 9.8-13.0 L 21116-5) RDW-CV (test code = 15.4 % 12.1-15.4 788-0) RDW-SD (test code = 52.7 fL 38.5-51.6 H 00621-0) NRBC x10^3 (test code = See_Comment [Au tomated message] 8103828107) The system [employer] generated this result transmit qing reference range : 10*3/?L. The reference range was not used to interpret this result as normal/abnormal . NRBC/100 WBC (test code See_Comment [Au tomated message] = 8595247570) The system [facility] generated this result transmit qing reference range : 0.0 - 10.0 /100 WBC s. The reference r jalen was not used to interpret this result as normal/abnormal . IPF % (test code = 3223659027) Lab Interpretation (test Abnormal code = 79067-3) [facility] GLUCOSE (AUTOMATED)2021-03-27 22:21:31 Test Item Value Reference Range Interpretation Comments POCT GLU (test code = 5108037003) 133 mg/dL 70-110 H Lab Interpretation (test code = Abnormal 68246-8) [facility] GLUCOSE (AUTOMATED)2021-03-27 22:21:31 Test Item Value Reference Range Interpretation Comments POCT GLU (test code = 9971713332) 133 mg/dL 70-110 H Lab Interpretation (test code = Abnormal 38244-2) [facility] [id number] 21:30:09 Test Item Value Reference Range Interpretation Comments JIM (test code = Negative Negative 4770147517) POP (test code = POP) Negative - [...] separately. Lab Interpretation (test Normal code = 65565-4) [facility] [id number] 21:30:09 Test Item Value Reference Range Interpretation Comments JIM (test code = Negative Negative 1445169785) POP (test code = POP) Negative - [...] separately. Lab Interpretation (test Normal code = 63267-4) [facility] [id number] 21:30:09 Test Item Value Reference Range Interpretation Comments JIM (test code = Negative Negative 7041466042) POP (test code = POP) Negative - [...] separately. Lab Interpretation (test Normal code = 46429-1) [facility] ONLY - SYPHILIS [id number] 18:20:12 Test Item Value Reference Range Interpretation Comments Syphilis IgG/IgM (test Non-reactive Non-reactive code = 67797-7) POP (test code = POP) Non-reactive - No serologic evidence of T. pallidum infection. Cannot exclude incubating or early syphilis. Submit a second specimen in 2-4 weeks if syphilis is clinically suspected. Equivocal - Further testing to follow. Reactive - Further testing to follow. Lab Interpretation (test Normal code = 53821-6) [facility] ONLY - SYPHILIS [id number] 18:20:12 Test Item Value Reference Range Interpretation Comments Syphilis IgG/IgM (test Non-reactive Non-reactive code = 08599-8) POP (test code = POP) Non-reactive - No serologic evidence of T. pallidum infection. Cannot exclude incubating or early syphilis. Submit a second specimen in 2-4 weeks if syphilis is clinically suspected. Equivocal - Further testing to follow. Reactive - Further testing to follow. Lab Interpretation (test Normal code = 04556-7) [facility] ONLY - SYPHILIS [id number] 18:20:12 Test Item Value Reference Range Interpretation Comments Syphilis IgG/IgM (test Non-reactive Non-reactive code = 20187-2) POP (test code = POP) Non-reactive - No serologic evidence of T. pallidum infection. Cannot exclude incubating or early syphilis. Submit a second specimen in 2-4 weeks if syphilis is clinically suspected. Equivocal - Further testing to follow. Reactive - Further testing to follow. Lab Interpretation (test Normal code = 08667-5) [facility] - ONCE [id number] 16:53:08 Test Item Value Reference Range Interpretation Comments ABO & RH (test code A POSITIVE Performe d at [facility] = 20) Laboratory [facility] Blood Bank[address] [place] [address] s [address]Sshc Free: [phone] A No. [id number] IAT (test code = Negative Performed a t [facility] 1185) Laboratory [facility] Blood [address] s [address]Oohj Free: [phone] A No. [id number] [facility] - ONCE [id number] 16:53:08 Test Item Value Reference Range Interpretation Comments ABO & RH (test code A POSITIVE Performe d at [facility] = 20) Laboratory [facility] Blood [address] [place] [address]Fdaw Free: [phone] A No. [id number] IAT (test code = Negative Performed a t [facility] 1185) Laboratory [facility] Blood [address] [place] [address]Ogqu Free: [phone] A No. [id number] [facility] - ONCE [id number] 16:53:08 Test Item Value Reference Range Interpretation Comments ABO & RH (test code A POSITIVE Performe d at [facility] = 20) Laboratory [facility] Blood [address] [place] [address]Nxys Free: [phone] A No. [id number] IAT (test code = Negative Performed a t [facility] 1185) Laboratory [facility] Blood [address] [place] [address]Clqt Free: [phone] A No. [id number] [facility] Confirmation (Lab Only)2021-03-27 16:31:51 Test Item Value Reference Range Interpretation Comments ABO & RH (test code A Positive Performe d at [facility] = 20) Laboratory [facility] [address] [place] [address] s [address]Uujf Free: [phone] A No. [id number] [facility] Confirmation (Lab Only)2021-03-27 16:31:51 Test Item Value Reference Range Interpretation Comments ABO & RH (test code A Positive Performe d at [facility] = 20) [facility] Blood [facility]3 [address] [facility] [place] [address]Kiib Free: [phone] A No. [id number] [facility] Confirmation (Lab Only)2021-03-27 16:31:51 Test Item Value Reference Range Interpretation Comments ABO & RH (test code A Positive Performe d at [facility] = 20) [facility] Blood [facility] [address] [facility] [place] [address]Vuvj Free: [phone] A No. [id number] [facility] [id number] 16:00:28 Test Item Value Reference Range Interpretation Comments HAPTOGLOB (test code = 9950849671) 377 mg/dL 16-200 H Lab Interpretation (test code = Abnormal 27184-1) [facility] [id number] 16:00:28 Test Item Value Reference Range Interpretation Comments HAPTOGLOB (test code = 4090513519) 377 mg/dL 16-200 H Lab Interpretation (test code = Abnormal 87229-2) [facility], [id number] 16:00:28 Test Item Value Reference Range Interpretation Comments HAPTOGLOB (test code = 4953366551) 377 mg/dL 16-200 H Lab Interpretation (test code = Abnormal 08954-0) [facility] GLUCOSE (AUTOMATED)2021-03-27 14:14:57 Test Item Value Reference Range Interpretation Comments POCT GLU (test code = 0424661817) 104 mg/dL 70-110 Lab Interpretation (test code = Normal 08542-7) [facility] GLUCOSE (AUTOMATED)2021-03-27 14:14:57 Test Item Value Reference Range Interpretation Comments POCT GLU (test code = 0424119724) 104 mg/dL 70-110 Lab Interpretation (test code = Normal 52732-2) [facility] WITH [id number] 11:09:24 Test Item Value Reference Range Interpretation [...] (test code = 51.7 fL 38.5-51.6 H 37407-3) RDW-CV (test code = 15.1 % 12.1-15.4 788-0) PLT (test code = See_Comment H [Automated 777-3) message] The system which generated this result transmit qing reference range : 150 - 328 10*3/ ?L. The reference range was not u sed to interpret th is result as normal/abnormal . MPV (test code = 9.1 fL 9.8-13.0 L 59865-3) NRBC/100 WBC (test See_Comment [Automat ed code = 2683267585) message] The system which generated this result transmit qing reference range : 0.0 - 10.0 /100 WBCs. The reference range was not used to interpret this result as normal/abnormal . NRBC x10^3 (test code See_Comment [Auto mated = 4822170757) message] The system which generated this result transmit qing reference range : 10*3/?L. The reference range was not used to interpret this result as normal/abnormal . GRAN MAT (NEUT) % 77.2 % (test code = 770-8) IMM GRAN % (test code 1.90 % = 2498495428) LYMPH % (test code = 14.7 % 736-9) MONO % (test code = 4.6 % 5905-5) EOS % (test code = 1.3 % 713-8) BASO % (test code = 0.3 % 706-2) GRAN MAT x10^3(ANC) 15.48 10*3/uL 1.99-6.95 H (test code = 7090051794) IMM GRAN x10^3 (test 0.38 10*3/uL 0.00-0.06 H code = 3331144183) LYMPH x10^3 (test code 2.96 10*3/uL 1.09-3.23 = 731-0) MONO x10^3 (test code 0.92 10*3/uL 0.36-1.02 = 742-7) EOS x10^3 (test code = 0.27 10*3/uL 0.06-0.53 711-2) BASO x10^3 (test code 0.06 10*3/uL 0.01-0.09 = 704-7) POLYCHROMASIA (test 2+ See_Comment [Automa qing code = 34737-4) message] The system which generated this result transmit qign reference range : 2+. The referen ce range was not u sed to interpret th is result as normal/abnormal . Lab Interpretation Abnormal (test code = 59759-0) [facility] WITH [id number] 11:09:24 Test Item Value Reference Range Interpretation Comments WBC (test code = See_Comment H [Automated 8690-2) message] The system which generated this result transmit qing reference range : 4.20 - 10.70 10*3/?L. The reference range was not used to interpret this result as normal/abnormal . RBC (test code = See_Comment L [Automated 659-8) message] The system which generated this result [...] (test code = 51.7 fL 38.5-51.6 H 98014-1) RDW-CV (test code = 15.1 % 12.1-15.4 788-0) PLT (test code = See_Comment H [Automated 777-3) message] The system which generated this result transmit qing reference range : 150 - 328 10*3/ ?L. The reference range was not u sed to interpret th is result as normal/abnormal . MPV (test code = 9.1 fL 9.8-13.0 L 24207-3) NRBC/100 WBC (test See_Comment [Automat ed code = 1464540802) message] The system which generated this result transmit qing reference range : 0.0 - 10.0 /100 WBCs. The reference range was not used to interpret this result as normal/abnormal . NRBC x10^3 (test code See_Comment [Auto mated = 2032052911) message] The system which generated this result transmit qing reference range : 10*3/?L. The reference range was not used to interpret this result as normal/abnormal . GRAN MAT (NEUT) % 77.2 % (test code = 770-8) IMM GRAN % (test code 1.90 % = 6904654195) LYMPH % (test code = 14.7 % 736-9) MONO % (test code = 4.6 % 5905-5) EOS % (test code = 1.3 % 713-8) BASO % (test code = 0.3 % 706-2) GRAN MAT x10^3(ANC) 15.48 10*3/uL 1.99-6.95 H (test code = 9606906630) IMM GRAN x10^3 (test 0.38 10*3/uL 0.00-0.06 H code = 9247771199) LYMPH x10^3 (test code 2.96 10*3/uL 1.09-3.23 = 731-0) MONO x10^3 (test code 0.92 10*3/uL 0.36-1.02 = 742-7) EOS x10^3 (test code = 0.27 10*3/uL 0.06-0.53 711-2) BASO x10^3 (test code 0.06 10*3/uL 0.01-0.09 = 704-7) POLYCHROMASIA (test 2+ See_Comment [Automa qing code = 19520-3) message] The system which generated this result transmit qing reference range : 2+. The referen ce range was not u sed to interpret th is result as normal/abnormal . Lab Interpretation Abnormal (test code = 02630-4) [facility] / [id number] 10:05:30 Test Item Value Reference Range Interpretation Comments PROTIME PATIENT (test See_Comment H [Auto mated message] code = 5964-2) The system [employer] generated this result transmitted ref erence range: 10.1 - 1 2.6 Seconds. The reference range was not used to int erpret this result as normal/abnormal . INR (test code = 6301-6) Nor mal INR <1.1; Warfarin Therap eutic range 2.0 to 3. 0 or 2.5 to 3.5, dep ending upon the indica tions. Lab Interpretation (test Abnormal code = 31833-6) [facility] HospitalPROTHROMBIN [facility] / [id number] 10:05:30 Test Item Value Reference Range Interpretation Comments PROTIME PATIENT (test See_Comment H [Auto mated message] code = 5964-2) The system [employer] generated this result transmitted ref erence range: 10.1 - 1 2.6 Seconds. The reference range was not used to int erpret this result as normal/abnormal . INR (test code = 6301-6) Nor mal INR <1.1; Warfarin Therap eutic range 2.0 to 3. 0 or 2.5 to 3.5, dep ending upon the indica tions. Lab Interpretation (test Abnormal code = 42920-6) [facility])2021-03-26 22:44:42 Test Item Value Reference Range Interpretation Comments POCT GLU (test code = 2663968236) 145 mg/dL 70-110 H Lab Interpretation (test code = Abnormal 28130-5) [facility] GLU[facility]SE (AUTOMATED)2021-03-26 22:44:42 Test Item Value Reference Range Interpretation Comments POCT GLU (test code = 3037902257) 145 mg/dL 70-110 H Lab Interpretation (test code = Abnormal 02490-6) [facility] [id number] 20:57:41 Test Item Value Reference Range Interpretation Comments RETIC Count Automated 5.85 % 0.59-2.24 H (test code = 7149311676) RETIC Absolute Count See_Comment H [Autom ated message] (test code = 2770820234) The system which generated this result transmitted ref erence range: 0.0260 - 0.1170 10*6/?L. The reference range was not used to int erpret this result as normal/abnormal . IRF % (test code = 38.60 % 2.00-19.10 H 5753413516) RETIC-HE (test code = 24.8 pg 27.3-36.4 L 8003180460) Lab Interpretation (test Abnormal code = 18100-5) [facility] [id number] 20:57:41 Test Item Value Reference Range Interpretation Comments RETIC Count Automated 5.85 % 0.59-2.24 H (test code = 8892302785) RETIC Absolute Count See_Comment H [Autom ated message] (test code = 3257179339) The system which generated this result transmitted ref erence range: 0.0260 - 0.1170 10*6/?L. The reference range was not used to int erpret this result as normal/abnormal . IRF % (test code = 38.60 % 2.00-19.10 H 1139376227) RETIC-HE (test code = 24.8 pg 27.3-36.4 L 9597287603) Lab Interpretation (test Abnormal code = 91639-0) [facility] [id number] 20:57:41 Test Item Value Reference Range Interpretation Comments RETIC Count Automated 5.85 % 0.59-2.24 H (test code = 0597596749) RETIC Absolute Count See_Comment H [Autom ated message] (test code = 4623098628) The system which generated this result transmitted ref erence range: 0.0260 - 0.1170 10*6/?L. The reference range was not used to int erpret this result as normal/abnormal . IRF % (test code = 38.60 % 2.00-19.10 H 9913510960) RETIC-HE (test code = 24.8 pg 27.3-36.4 L 5462134280) Lab Interpretation (test Abnormal code = 84748-4) [facility] HospitalLAPAATE [id number] 20:48:58 Test Item Value Reference Range Interpretation Comments LDH (test code = 7393348649) 411 U/L 300-600 Lab Interpretation (test code = Normal 26776-4) [facility] [id number] 20:48:58 Test Item Value Reference Range Interpretation Comments LDH (test code = 3292316257) 411 U/L 300-600 Lab Interpretation (test code = Normal 70647-5) [facility] [id number] 20:48:58 Test Item Value Reference Range Interpretation Comments LDH (test code = 5308401070) 411 U/L 300-600 Lab Interpretation (test code = Normal 03075-4) [facility] HospitalHEPATIC FUNCTION PANEL (24112) (ALB,T.PRO,BILI T,BU/BC,ALT,AST,ALK PHOS)2021-03-26 20:36:03 Test Item Value Reference Range Interpretation Comments TOTAL BILI (test code = 5469830227) 0.8 mg/dL 0.1-1.1 BILI UNCON (test code = 3702578508) 0.3 mg/dL 0.1-1.1 BILI CONJ (test code = 8293436386) 0.0 mg/dL 0.0-0.3 T PROTEIN (test code = 8640811363) 6.4 g/dL 6.3-8.2 ALBUMIN (test code = 9239684793) 3.2 g/dL 3.5-5.0 L ALK PHOS (test code = 3531900581) 90 U/L 34-122 ALTv (test code = 1742-6) 40 U/L 5-50 AST(SGOT) (test code = 4080172396) 68 U/L 13-40 H Lab Interpretation (test code = Abnormal 33073-5) [facility] (01331) (ALB,T.PRO,BILI T,BU/BC,ALT,AST,ALK PHOS)2021-03-26 20:36:03 Test Item Value Reference Range Interpretation Comments TOTAL BILI (test code = 3039462103) 0.8 mg/dL 0.1-1.1 BILI UNCON (test code = 3326594927) 0.3 mg/dL 0.1-1.1 BILI CONJ (test code = 9672509618) 0.0 mg/dL 0.0-0.3 T PROTEIN (test code = 1181105566) 6.4 g/dL 6.3-8.2 ALBUMIN (test code = 2632536587) 3.2 g/dL 3.5-5.0 L ALK PHOS (test code = 3805715592) 90 U/L 34-122 ALTv (test code = 1742-6) 40 U/L 5-50 AST(SGOT) (test code = 3001541847) 68 U/L 13-40 H Lab Interpretation (test code = Abnormal 47073-9) [facility] (ALB,T.PRO,BILI T,BU/BC,ALT,AST,ALK PHOS)2021-03-26 20:36:03 Test Item Value Reference Range Interpretation Comments TOTAL BILI (test code = 1660800351) 0.8 mg/dL 0.1-1.1 BILI UNCON (test code = 6035043863) 0.3 mg/dL 0.1-1.1 BILI CONJ (test code = 8789101842) 0.0 mg/dL 0.0-0.3 T PROTEIN (test code = 3946120048) 6.4 g/dL 6.3-8.2 ALBUMIN (test code = 8828011893) 3.2 g/dL 3.5-5.0 L ALK PHOS (test code = 4343328798) 90 U/L 34-122 ALTv (test code = 1742-6) 40 U/L 5-50 AST(SGOT) (test code = 8862062560) 68 U/L 13-40 H Lab Interpretation (test code = Abnormal 88915-2[facility] [id number] 19:26:57 Test Item Value Reference Range Interpretation Comments HIV Negative Negative Semi-quantitative (test code = 02920-8) POP (test code = Non-reactive for HIV-1 POP) antigen and HIV-1/HIV-2 antibodies. ?No laboratory evidence of HIV infection. ?Repeat in 2-4 weeks if acute HIV infection is suspected. [facility] 1/2 AG-AB WITH [id number] 19:26:57 Test Item Value Reference Range Interpretation Comments HIV Negative Negative Semi-quantitative (test code = 76255-8) POP (test code = Non-reactive for HIV-1 POP) antigen and HIV-1/HIV-2 antibodies. ?No laboratory evidence of HIV infection. ?Repeat in 2-4 weeks if acute HIV infection is suspected. [facility] 1/2 AG-AB WITH [id number] 19:26:57 Test Item Value Reference Range Interpretation Comments HIV Negative Negative Semi-quantitative (test code = 46064-6) POP (test code = Non-reactive for HIV-1 POP) antigen and HIV-1/HIV-2 antibodies. ?No laboratory evidence of HIV infection. ?Repeat in 2-4 weeks if acute HIV infection is suspected. [facility] GLUCOSE (AUTOMATED)2021-03-26 18:22:48 Test Item Value Reference Range Interpretation Comments POCT GLU (test code = 8187067136) 127 mg/dL 70-110 H Lab Interpretation (test code = Abnormal 42902-8) [facility] GLUCOSE (AUTOMATED)2021-03-26 18:22:48 Test Item Value Reference Range Interpretation Comments POCT GLU (test code = 5351301947) 127 mg/dL 70-110 H Lab Interpretation (test code = Abnormal 63244-2) [facility] GLUCOSE (AUTOMATED)2021-03-26 14:52:39 Test Item Value Reference Range Interpretation Comments POCT GLU (test code = 4106208934) 144 mg/dL 70-110 H Lab Interpretation (test code = Abnormal 24156-2) [facility] GLUCOSE (AUTOMATED)2021-03-26 14:52:39 Test Item Value Reference Range Interpretation Comments POCT GLU (test code = 2561436655) 144 mg/dL 70-110 H Lab Interpretation (test code = Abnormal 70508-3) [facility] WITHOUT [id number] 12:12:23 Test Item Value Reference Range Interpretation Comments WBC (test code = 6690-2) See_Comment H [A utomated message] The system [employer] generated this result transmit qing reference range : 4.20 - 10.70 10*3/?L. The reference range was not used to interpret this result as normal/abnormal . RBC (test code = 789-8) See_Comment L [Au tomated message] The system [employer] generated this result transmit qing reference range [...] See_Comment H [Au tomated message] The system [employer] generated this result transmit qing reference range : 150 - 328 10*3/?L. The reference range was not used to interpret this result as normal/abnormal . MPV (test code = 9.0 fL 9.8-13.0 L 01078-9) RDW-CV (test code = 14.7 % 12.1-15.4 788-0) RDW-SD (test code = 50.3 fL 38.5-51.6 12661-0) NRBC x10^3 (test code = See_Comment [Au tomated message] 3325325430) The system [employer] generated this result transmit qing reference range : 10*3/?L. The reference range was not used to interpret this result as normal/abnormal . NRBC/100 WBC (test code See_Comment [Au tomated message] = 3342210267) The system [employer] generated this result transmit qing reference range : 0.0 - 10.0 /100 WBC s. The reference r jalen was not used to interpret this result as normal/abnormal . IPF % (test code = 2694650420) Lab Interpretation (test Abnormal code = 52931-6) [facility] WITHOUT [id number] 12:12:23 Test Item Value Reference Range Interpretation Comments WBC (test code = 6690-2) See_Comment H [A utomated message] The system [employer] generated this result transmit qing reference range : 4.20 - 10.70 10*3/?L. The reference range was not used to interpret this result as normal/abnormal . RBC (test code = 789-8) See_Comment L [Au tomated message] The system [employer] generated this result transmit qing reference range [...] See_Comment H [Au tomated message] The system [employer] generated this result transmit qing reference range : 150 - 328 10*3/?L. The reference range was not used to interpret this result as normal/abnormal . MPV (test code = 9.0 fL 9.8-13.0 L 81183-8) RDW-CV (test code = 14.7 % 12.1-15.4 788-0) RDW-SD (test code = 50.3 fL 38.5-51.6 04477-9) NRBC x10^3 (test code = See_Comment [Au tomated message] 2945959667) The system whic h generated this result transmit qing reference range : 10*3/?L. The reference range was not used to interpret this result as normal/abnormal . NRBC/100 WBC (test code See_Comment [Au tomated message] = 0678696781) The system [employer] generated this result transmit qing reference range : 0.0 - 10.0 /100 WBC s. The reference r jalen was not used to interpret this result as normal/abnormal . IPF % (test code = 1646477070) Lab Interpretation (test Abnormal code = 17714-6) [facility] CULTURE [id number] 03:01:28 Test Item Value Reference Range Interpretation Comments Blood Culture-Aerobic No organisms No growth Previo us (test code = 25394-5) isolated prelim inary verified result was Culture In Progress on 03/21/2021 at 0001 CSTPreviou s preliminary verified result was No growth a t 24 hours on 03/21/2021 at 2101 CSTPreviou s preliminary verified result was No growth a t 48 hours on 03/22/2021 at 2101 CSTPreviou s preliminary verified result was No growth a t 72 hours on 03/23/2021 at 2101 [employer] Blood No organisms No growth Previous Culture-Anaerobic isolated preliminar y (test code = 04382-4) verifi ed result was Culture In Progress on 03/21/2021 at 0001 CSTPreviou s preliminary verified result was No growth a t 24 hours on 03/21/2021 at 2101 CSTPreviou s preliminary verified result was No growth a t 48 hours on 03/22/2021 at 2101 CSTPreviou s preliminary verified result was No growth a t 72 hours on 03/23/2021 at 2101 [employer] Lab Interpretation Normal (test code = 68237-6) [facility] CULTURE [id number] 03:01:28 Test Item Value Reference Range Interpretation Comments Blood Culture-Aerobic No organisms No growth Previo us (test code = 71100-5) isolated prelim inary verified result was Culture In Progress on 03/21/2021 at 0001 CSTPreviou s preliminary verified result was No growth a t 24 hours on 03/21/2021 at 2101 CSTPreviou s preliminary verified result was No growth a t 48 hours on 03/22/2021 at 2101 CSTPreviou s preliminary verified result was No growth a t 72 hours on 03/23/2021 at 210 [employer] Blood No organisms No growth Previous Culture-Anaerobic isolated preliminar y (test code = 82868-7) verifi ed result was Culture In Progress on 03/21/2021 at 0001 CSTPreviou s preliminary verified result was No growth a t 24 hours on 03/21/2021 at 210 CSTPreviou s preliminary verified result was No growth a t 48 hours on 03/22/2021 at 210 CSTPreviou s preliminary verified result was No growth a t 72 hours on 03/23/2021 at 210 [employer] Lab Interpretation Normal (test code = 76200-5) [facility] CULTURE [id number] 03:01:28 Test Item Value Reference Range Interpretation Comments Blood Culture-Aerobic No organisms No growth Previo us (test code = 32250-7) isolated prelim inary verified result was Culture In Progress on 03/21/2021 at 0001 CSTPreviou s preliminary verified result was No growth a t 24 hours on 03/21/2021 at 210 CSTPreviou s preliminary verified result was No growth a t 48 hours on 03/22/2021 at 210 CSTPreviou s preliminary verified result was No growth a t 72 hours on 03/23/2021 at 210 [employer] Blood No organisms No growth Previous Culture-Anaerobic isolated preliminar y (test code = 61818-8) verifi ed result was Culture In Progress on 03/21/2021 at 0001 CSTPreviou s preliminary verified result was No growth a t 24 hours on 03/21/2021 at 210 CSTPreviou s preliminary verified result was No growth a t 48 hours on 03/22/2021 at 210 CSTPreviou s preliminary verified result was No growth a t 72 hours on 03/23/2021 at 210 [employer] Lab Interpretation Normal (test code = 30596-1) [facility] CULTURE [id number] 02:01:31 Test Item Value Reference Range Interpretation Comments Blood Culture-Aerobic No organisms No growth Previo us (test code = 32886-4) isolated prelim inary verified result was Culture In Progress on 03/20/2021 at 2302 CSTPreviou s preliminary verified result was No growth a t 24 hours on 03/21/2021 at 2000 CSTPreviou s preliminary verified result was No growth a t 48 hours on 03/22/2021 at 2000 CSTPreviou s preliminary verified result was No growth a t 72 hours on 03/23/2021 at 2000 [employer] Blood No organisms No growth Previous Culture-Anaerobic isolated preliminar y (test code = 14436-0) verifi ed result was Culture In Progress on 03/20/2021 at 2302 CSTPreviou s preliminary verified result was No growth a t 24 hours on 03/21/2021 at 2000 CSTPreviou s preliminary verified result was No growth a t 48 hours on 03/22/2021 at 2000 CSTPreviou s preliminary verified result was No growth a t 72 hours on 03/23/2021 at 2000 [employer] ME[employer] Lab Interpretation Normal (test code = 93555-7) [facility] [id number] 02:01:31 Test Item Value Reference Range Interpretation Comments Blood Culture-Aerobic No organisms No growth Previo us (test code = 93743-6) isolated prelim inary verified result was Culture In Progress on 03/20/2021 at 2302 CSTPreviou s preliminary verified result was No growth a t 24 hours on 03/21/2021 at 2000 CSTPreviou s preliminary verified result was No growth a t 48 hours on 03/22/2021 at 2000 CSTPreviou s preliminary verified result was No growth a t 72 hours on 03/23/2021 at 2000 [employer] Blood No organisms No growth Previous Culture-Anaerobic isolated preliminar y (test code = 89346-8) verifi ed result was Culture In Progress on 03/20/2021 at 2302 CSTPreviou s preliminary verified result was No growth a t 24 hours on 03/21/2021 at 2000 CSTPreviou s preliminary verified result was No growth a t 48 hours on 03/22/2021 at 2000 CSTPreviou s preliminary verified result was No growth a t 72 hours on 03/23/2021 at 2000 [employer] ME[employer] Lab Interpretation Normal (test code = 29235-3) [facility] 22:50:12 Test Item Value Reference Range Interpretation Comments POCT GLU (test code = 6725856774) 129 mg/dL 70-110 H Lab Interpretation (test code = Abnormal 88232-3) [facility] 22:50:12 Test Item Value Reference Range Interpretation Comments POCT GLU (test code = 3435371994) 129 mg/dL 70-110 H Lab Interpretation (test code = Abnormal 94258-8) [facility]-[id number] 21:20:20 Test Item Value Reference Interpretation Comments Range D-DIMER (test code = See_Comment H [Autom ated 6522846694) message] The system which generated this result [...] diagnosis. Lab Interpretation Abnormal (test code = 99288-6) [facility]-[id number] 21:20:20 Test Item Value Reference Interpretation Comments Range D-DIMER (test code = See_Comment H [Autom ated 5132571966) message] The system which generated this result [...] diagnosis. Lab Interpretation Abnormal (test code = 22452-1) [id number] 21:20:20 Test Item Value Reference Interpretation Comments Range D-DIMER (test code = See_Comment H [Autom ated 1589931293) message] The system which generated this result [...] diagnosis. Lab Interpretation Abnormal (test code = 01376-9) [facility] WITH [id number] 21:10:21 Test Item Value Reference Range Interpretation Comments WBC (test code = See_Comment H [Automated 1890-2) message] The sy stem which generated this result transmitted reference range : 4.20 - 10.70 10*3/?L. The reference range was not used to interpret this result as normal/abnormal . RBC (test code = See_Comment L [Automated 619-8) message] The sy stem which generated this [...] RDW-SD (test code = 51.2 fL 38.5-51.6 36864-1) RDW-CV (test code = 14.7 % 12.1-15.4 788-0) PLT (test code = See_Comment H [Automated 777-3) message] The sy stem which generated this result transmitted reference range : 150 - 328 10*3/ ?L. The reference r jalen was not used to interpret this result as normal/abnormal . MPV (test code = 9.2 fL 9.8-13.0 L 68936-7) NRBC/100 WBC (test See_Comment [Automat ed code = 7914108493) message] The system which generated this result transmitted reference range : 0.0 - 10.0 /100 WBCs. The refer ence range was not u sed to interpret th is result as normal/abnormal . NRBC x10^3 (test code See_Comment [Auto mated = 3581733291) message] The s ystem which generated this result transmitted reference range : 10*3/?L. The reference range was not used to interpret this result as normal/abnormal . GRAN MAT (NEUT) % 77.4 % (test code = 770-8) IMM GRAN % (test code 0.50 % = 9570809070) LYMPH % (test code = 14.1 % 736-9) MONO % (test code = 6.3 % 5905-5) EOS % (test code = 1.2 % 713-8) BASO % (test code = 0.5 % 706-2) GRAN MAT x10^3(ANC) 9.19 10*3/uL 1.99-6.95 H (test code = 6285737378) IMM GRAN x10^3 (test 0.06 10*3/uL 0.00-0.06 code = 6214952086) LYMPH x10^3 (test code 1.67 10*3/uL 1.09-3.23 = 731-0) MONO x10^3 (test code 0.75 10*3/uL 0.36-1.02 = 742-7) EOS x10^3 (test code = 0.14 10*3/uL 0.06-0.53 711-2) BASO x10^3 (test code 0.06 10*3/uL 0.01-0.09 = 704-7) Lab Interpretation Abnormal (test code = 80041-3) [facility] WITH [id number] 21:10:21 Test Item Value Reference Range Interpretation [...] RDW-SD (test code = 51.2 fL 38.5-51.6 92582-8) RDW-CV (test code = 14.7 % 12.1-15.4 788-0) PLT (test code = See_Comment H [Automated 777-3) message] The sy stem which generated this result transmitted reference range : 150 - 328 10*3/ ?L. The reference r jalen was not used to interpret this result as normal/abnormal . MPV (test code = 9.2 fL 9.8-13.0 L 46647-7) NRBC/100 WBC (test See_Comment [Automat ed code = 3334906335) message] The system which generated this result transmitted reference range : 0.0 - 10.0 /100 WBCs. The refer ence range was not u sed to interpret th is result as normal/abnormal . NRBC x10^3 (test code See_Comment [Auto mated = 8238777989) message] The s ystem which generated this result transmitted reference range : 10*3/?L. The reference range was not used to interpret this result as normal/abnormal . GRAN MAT (NEUT) % 77.4 % (test code = 770-8) IMM GRAN % (test code 0.50 % = 3858774439) LYMPH % (test code = 14.1 % 736-9) MONO % (test code = 6.3 % 5905-5) EOS % (test code = 1.2 % 713-8) BASO % (test code = 0.5 % 706-2) GRAN MAT x10^3(ANC) 9.19 10*3/uL 1.99-6.95 H (test code = 0348431589) IMM GRAN x10^3 (test 0.06 10*3/uL 0.00-0.06 code = 2687654406) LYMPH x10^3 (test code 1.67 10*3/uL 1.09-3.23 = 731-0) MONO x10^3 (test code 0.75 10*3/uL 0.36-1.02 = 742-7) EOS x10^3 (test code = 0.14 10*3/uL 0.06-0.53 711-2) BASO x10^3 (test code 0.06 10*3/uL 0.01-0.09 = 704-7) Lab Interpretation Abnormal (test code = 90976-5) [facility]-REACTIVE [id number] 18:25:43 Test Item Value Reference Range Interpretation Comments CRP (test code = 3889375623) 1.6 mg/dL <0.8 H Lab Interpretation (test code = Abnormal 66053-7) [facility]-REACTIVE [id number] 18:25:43 Test Item Value Reference Range Interpretation Comments CRP (test code = 6410076296) 1.6 mg/dL <0.8 H Lab Interpretation (test code = Abnormal 33728-4) [facility] [id number] 18:25:43 Test Item Value Reference Range Interpretation Comments CRP (test code = 4608101202) 1.6 mg/dL <0.8 H Lab Interpretation (test code = Abnormal 27994-0) [facility] GLUCOSE (AUTOMATED)2021-03-25 18:08:08 Test Item Value Reference Range Interpretation Comments POCT GLU (test code = 9849694454) 136 mg/dL 70-110 H Lab Interpretation (test code = Abnormal 53388-7) [facility] GLUCOSE (AUTOMATED)2021-03-25 18:08:08 Test Item Value Reference Range Interpretation Comments POCT GLU (test code = 0058637203) 136 mg/dL 70-110 H Lab Interpretation (test code = Abnormal 58442-4) [facility] GLUCOSE (AUTOMATED)2021-03-25 14:38:25 Test Item Value Reference Range Interpretation Comments POCT GLU (test code = 9916888995) 133 mg/dL 70-110 H Lab Interpretation (test code = Abnormal 98559-0) [facility] GLUCOSE (AUTOMATED)2021-03-25 14:38:25 Test Item Value Reference Range Interpretation Comments POCT GLU (test code = 9782921105) 133 mg/dL 70-110 H Lab Interpretation (test code = Abnormal 83540-6) [facility] [id number] 03:28:13 Test Item Value Reference Range Interpretation Comments AMMONIA (test code = 2894003747) <9 9-33 L Lab Interpretation (test code = Abnormal 87238-5) [facility] [id number] 03:28:13 Test Item Value Reference Range Interpretation Comments AMMONIA (test code = 4377808965) <9 9-33 L Lab Interpretation (test code = Abnormal 30238-9) [facility] [id number] 03:28:13 Test Item Value Reference Range Interpretation Comments AMMONIA (test code = 4043067264) <9 9-33 L Lab Interpretation (test code = Abnormal 28715-1) [facility] [id number] 23:35:12 Test Item Value Reference Range Interpretation Comments FERRITIN (test code = 14.1 ng/mL 18.0-464.0 L 0626643156) POP (test code = POP) Biotin has been reported to cause a negative bias, interpret results relative to patient's use of biotin. Lab Interpretation (test Abnormal code = 44300-6) [facility] [id number] 23:35:12 Test Item Value Reference Range Interpretation Comments FERRITIN (test code = 14.1 ng/mL 18.0-464.0 L 3736052812) POP (test code = POP) Biotin has been reported to cause a negative bias, interpret results relative to patient's use of biotin. Lab Interpretation (test Abnormal code = 36944-9) [facility] [id number] 23:35:12 Test Item Value Reference Range Interpretation Comments FERRITIN (test code = 14.1 ng/mL 18.0-464.0 L 6051062992) POP (test code = POP) Biotin has been reported to cause a negative bias, interpret results relative to patient's use of biotin. Lab Interpretation (test Abnormal code = 68849-2) [facility] [id number] 23:31:09 Test Item Value Reference Range Interpretation Comments TSH (test code = See_Comment [Automated message] 3312640307) The system [employer] generated this result transmitted ref erence range: 0.45 - 4 .70 mIU/L. The refe rence range was not u sed to interpret this result as normal/abnor mal. Lab Interpretation (test Normal code = 67017-7) [facility] [id number] 23:31:09 Test Item Value Reference Range Interpretation Comments TSH (test code = See_Comment [Automated message] 0262911386) The system [employer] generated this result transmitted ref erence range: 0.45 - 4 .70 mIU/L. The refe rence range was not u sed to interpret this result as normal/abnor mal. Lab Interpretation (test Normal code = 08063-9) [facility] [id number] 23:31:09 Test Item Value Reference Range Interpretation Comments TSH (test code = See_Comment [Automated message] 7602310597) The system [employer] generated this result transmitted ref erence range: 0.45 - 4 .70 mIU/L. The refe rence range was not u sed to interpret this result as normal/abnor mal. Lab Interpretation (test Normal code = 96013-9) [facility]2021-12-14 23:17:01 Test Item Value Reference Range Interpretation Comments IRON (test code = 0781392653) 26 ug/dL 50-160 L TIBC (test code = 8886823982) 298 ug/dL 250-410 % FE SAT (test code = 5194337545) 9 % 20-50 L Lab Interpretation (test code = Abnormal 32697-8) [facility]2021-12-14 23:17:01 Test Item Value Reference Range Interpretation Comments IRON (test code = 3460767020) 26 ug/dL 50-160 L TIBC (test code = 8062565659) 298 ug/dL 250-410 % FE SAT (test code = 6064159753) 9 % 20-50 L Lab Interpretation (test code = Abnormal 31066-3) [facility]2021-12-14 23:17:01 Test Item Value Reference Range Interpretation Comments IRON (test code = 6757125507) 26 ug/dL 50-160 L TIBC (test code = 1259876582) 298 ug/dL 250-410 % FE SAT (test code = 9942426794) 9 % 20-50 L Lab Interpretation (test code = Abnormal 90153-6) [facility] [id number] 22:59:28 Test Item Value Reference Range Interpretation Comments ESR (test code = See_Comment H [Automated message] 2452756554) The system [employer] generated this result transmitted ref erence range: 0 - 10 m m/HR. The reference r jalen was not used to interpret this result as normal/abnor mal. Lab Interpretation (test Abnormal code = 27961-5) [facility] [id number] 22:59:28 Test Item Value Reference Range Interpretation Comments ESR (test code = See_Comment H [Automated message] 9277979742) The system [employer] generated this result transmitted ref erence range: 0 - 10 m m/HR. The reference r jalen was not used to interpret this result as normal/abnor mal. Lab Interpretation (test Abnormal code = 08351-0) [facility] [id number] 22:59:28 Test Item Value Reference Range Interpretation Comments ESR (test code = See_Comment H [Automated message] 8682160252) The system [employer] generated this result transmitted ref erence range: 0 - 10 m m/HR. The reference r jalen was not used to interpret this result as normal/abnor mal. Lab Interpretation (test Abnormal code = 25115-4) [facility] GLUCOSE (AUTOMATED)2021-03-24 21:54:52 Test Item Value Reference Range Interpretation Comments POCT GLU (test code = 7965392115) 95 mg/dL 70-110 Lab Interpretation (test code = Normal 38636-2) [facility] GLUCOSE (AUTOMATED)2021-03-24 21:54:52 Test Item Value Reference Range Interpretation Comments POCT GLU (test code = 5324609419) 95 mg/dL 70-110 Lab Interpretation (test code = Normal 42831-9) [facility] GLUCOSE (AUTOMATED)2021-03-24 17:37:33 Test Item Value Reference Range Interpretation Comments POCT GLU (test code = 9121297427) 97 mg/dL 70-110 Lab Interpretation (test code = Normal 76971-6) [facility] GLUCOSE (AUTOMATED)2021-03-24 17:37:33 Test Item Value Reference Range Interpretation Comments POCT GLU (test code = 3953305420) 97 mg/dL 70-110 Lab Interpretation (test code = Normal 17723-2) [facility] GLUCOSE (AUTOMATED)2021-03-24 13:48:11 Test Item Value Reference Range Interpretation Comments POCT GLU (test code = 5691611868) 96 mg/dL 70-110 Lab Interpretation (test code = Normal 28290-7) [facility] GLUCOSE (AUTOMATED)2021-03-24 13:48:11 Test Item Value Reference Range Interpretation Comments POCT GLU (test code = 2709052130) 96 mg/dL 70-110 Lab Interpretation (test code = Normal 14113-2) [facility] (NA, K, CL, CO2, GLUCOSE, BUN, CREATININE, CA)2021-03-24 10:53:08 Test Item Value Reference Range Interpretation Comments NA (test code = 136 mmol/L 135-145 7862806754) K (test code = 3.8 mmol/L 3.5-5.0 4783696862) CL (test code = 106 mmol/L 98-108 0153977289) CO2 TOTAL (test code = 22 mmol/L 23-31 L 3125363894) AGAP (test code = 2-16 2068698142) BUN (test code = 15 mg/dL 7-23 9788138293) GLUCOSE (test code = 71 mg/dL 70-110 9075085836) CREATININE (test code = 0.76 mg/dL 0.60-1.25 1152341792) CALCIUM (test code = 8.2 mg/dL 8.6-10.6 L 0468948263) eGFR (test code = mL/min/1.73m2 9013257267) POP (test code = POP) Association of [...] tests). Lab Interpretation Abnormal (test code = 47599-8) [facility] METABOLIC PANEL (NA, K, CL, CO2, GLUCOSE, BUN, CREATININE, CA)2021-03-24 10:53:08 Test Item Value Reference Range Interpretation Comments NA (test code = 136 mmol/L 135-145 8199641601) K (test code = 3.8 mmol/L 3.5-5.0 8852825194) CL (test code = 106 mmol/L 98-108 2401213317) CO2 TOTAL (test code = 22 mmol/L 23-31 L 1523741203) AGAP (test code = 2-16 0290499819) BUN (test code = 15 mg/dL 7-23 1837984279) GLUCOSE (test code = 71 mg/dL 70-110 5989265621) CREATININE (test code = 0.76 mg/dL 0.60-1.25 7677152088) CALCIUM (test code = 8.2 mg/dL 8.6-10.6 L 8837951776) eGFR (test code = mL/min/1.73m2 1539144691) POP (test code = POP) Association of [...] tests). Lab Interpretation Abnormal (test code = 98394-3) [facility] WITH [id number] 10:27:28 Test Item Value Reference Range Interpretation [...] RDW-SD (test code = 46.9 fL 38.5-51.6 52595-1) RDW-CV (test code = 14.5 % 12.1-15.4 788-0) PLT (test code = See_Comment H [Automated 777-3) message] The sy stem which generated this result transmitted reference range : 150 - 328 10*3/ ?L. The reference r jalen was not used to interpret this result as normal/abnormal . MPV (test code = 9.2 fL 9.8-13.0 L 71914-4) NRBC/100 WBC (test See_Comment [Automat ed code = 7610863961) message] The system which generated this result transmitted reference range : 0.0 - 10.0 /100 WBCs. The refer ence range was not u sed to interpret th is result as normal/abnormal . NRBC x10^3 (test code See_Comment [Auto mated = 8962362004) message] The s ystem which generated this result transmitted reference range : 10*3/?L. The reference range was not used to interpret this result as normal/abnormal . GRAN MAT (NEUT) % 72.2 % (test code = 770-8) IMM GRAN % (test code 0.60 % = 4421282824) LYMPH % (test code = 19.2 % 736-9) MONO % (test code = 6.3 % 5905-5) EOS % (test code = 1.3 % 713-8) BASO % (test code = 0.4 % 706-2) GRAN MAT x10^3(ANC) 7.70 10*3/uL 1.99-6.95 H (test code = 9539011935) IMM GRAN x10^3 (test 0.06 10*3/uL 0.00-0.06 code = 3138302167) LYMPH x10^3 (test code 2.04 10*3/uL 1.09-3.23 = 731-0) MONO x10^3 (test code 0.67 10*3/uL 0.36-1.02 = 742-7) EOS x10^3 (test code = 0.14 10*3/uL 0.06-0.53 711-2) BASO x10^3 (test code 0.04 10*3/uL 0.01-0.09 = 704-7) Lab Interpretation Abnormal (test code = 13595-1) [facility] WITH [id number] 10:27:28 Test Item Value Reference Range Interpretation [...] RDW-SD (test code = 46.9 fL 38.5-51.6 25589-1) RDW-CV (test code = 14.5 % 12.1-15.4 788-0) PLT (test code = See_Comment H [Automated 777-3) message] The sy stem which generated this result transmitted reference range : 150 - 328 10*3/ ?L. The reference r jalen was not used to interpret this result as normal/abnormal . MPV (test code = 9.2 fL 9.8-13.0 L 59208-6) NRBC/100 WBC (test See_Comment [Automat ed code = 6958106048) message] The system which generated this result transmitted reference range : 0.0 - 10.0 /100 WBCs. The refer ence range was not u sed to interpret th is result as normal/abnormal . NRBC x10^3 (test code See_Comment [Auto mated = 8140765275) message] The s ystem which generated this result transmitted reference range : 10*3/?L. The reference range was not used to interpret this result as normal/abnormal . GRAN MAT (NEUT) % 72.2 % (test code = 770-8) IMM GRAN % (test code 0.60 % = 7284683746) LYMPH % (test code = 19.2 % 736-9) MONO % (test code = 6.3 % 5905-5) EOS % (test code = 1.3 % 713-8) BASO % (test code = 0.4 % 706-2) GRAN MAT x10^3(ANC) 7.70 10*3/uL 1.99-6.95 H (test code = 6223485591) IMM GRAN x10^3 (test 0.06 10*3/uL 0.00-0.06 code = 6437112366) LYMPH x10^3 (test code 2.04 10*3/uL 1.09-3.23 = 731-0) MONO x10^3 (test code 0.67 10*3/uL 0.36-1.02 = 742-7) EOS x10^3 (test code = 0.14 10*3/uL 0.06-0.53 711-2) BASO x10^3 (test code 0.04 10*3/uL 0.01-0.09 = 704-7) Lab Interpretation Abnormal (test code = 72688-2) [facility] GLUCOSE (AUTOMATED)2021-03-24 02:24:46 Test Item Value Reference Range Interpretation Comments POCT GLU (test code = 5556258054) 90 mg/dL 70-110 Lab Interpretation (test code = Normal 63173-3) [facility] GLUCOSE (AUTOMATED)2021-03-24 02:24:46 Test Item Value Reference Range Interpretation Comments POCT GLU (test code = 9796392525) 90 mg/dL 70-110 Lab Interpretation (test code = Normal 82708-8) [facility] GLUCOSE (AUTOMATED)2021-03-23 23:02:24 Test Item Value Reference Range Interpretation Comments POCT GLU (test code = 5383429678) 101 mg/dL 70-110 Lab Interpretation (test code = Normal 97249-3) [facility] GLUCOSE (AUTOMATED)2021-03-23 23:02:24 Test Item Value Reference Range Interpretation Comments POCT GLU (test code = 3833441580) 101 mg/dL 70-110 Lab Interpretation (test code = Normal 76800-8) [facility] GLUCOSE (AUTOMATED)2021-03-23 17:40:20 Test Item Value Reference Range Interpretation Comments POCT GLU (test code = 4244305950) 99 mg/dL 70-110 Lab Interpretation (test code = Normal 50045-5) [facility] GLUCOSE (AUTOMATED)2021-03-23 17:40:20 Test Item Value Reference Range Interpretation Comments POCT GLU (test code = 3483741925) 99 mg/dL 70-110 Lab Interpretation (test code = Normal 68873-8) [facility] GLUCOSE (AUTOMATED)2021-03-23 14:18:19 Test Item Value Reference Range Interpretation Comments POCT GLU (test code = 8125447241) 100 mg/dL 70-110 Lab Interpretation (test code = Normal 94834-8) [facility] GLUCOSE (AUTOMATED)2021-03-23 14:18:19 Test Item Value Reference Range Interpretation Comments POCT GLU (test code = 1836135922) 100 mg/dL 70-110 Lab Interpretation (test code = Normal 00553-5) [facility] GLUCOSE (AUTOMATED)2021-03-23 02:11:27 Test Item Value Reference Range Interpretation Comments POCT GLU (test code = 1671008277) 129 mg/dL 70-110 H Lab Interpretation (test code = Abnormal 59804-9) [facility] GLUCOSE (AUTOMATED)2021-03-23 02:11:27 Test Item Value Reference Range Interpretation Comments POCT GLU (test code = 3274219855) 129 mg/dL 70-110 H Lab Interpretation (test code = Abnormal 70492-7) [facility] GLUCOSE (AUTOMATED)2021-03-22 22:25:04 Test Item Value Reference Range Interpretation Comments POCT GLU (test code = 9634068948) 135 mg/dL 70-110 H Lab Interpretation (test code = Abnormal 02287-5) [facility] GLUCOSE (AUTOMATED)2021-03-22 22:25:04 Test Item Value Reference Range Interpretation Comments POCT GLU (test code = 3697725216) 135 mg/dL 70-110 H Lab Interpretation (test code = Abnormal 58273-3) [facility] GLUCOSE (AUTOMATED)2021-03-22 17:16:14 Test Item Value Reference Range Interpretation Comments POCT GLU (test code = 5644734013) 134 mg/dL 70-110 H Lab Interpretation (test code = Abnormal 88151-9) [facility] GLUCOSE (AUTOMATED)2021-03-22 17:16:14 Test Item Value Reference Range Interpretation Comments POCT GLU (test code = 7691404913) 134 mg/dL 70-110 H Lab Interpretation (test code = Abnormal 30315-6) [facility] GLUCOSE (AUTOMATED)2021-03-22 13:33:42 Test Item Value Reference Range Interpretation Comments POCT GLU (test code = 2231655577) 129 mg/dL 70-110 H Lab Interpretation (test code = Abnormal 59557-4) [facility] GLUCOSE (AUTOMATED)2021-03-22 13:33:42 Test Item Value Reference Range Interpretation Comments POCT GLU (test code = 6331470851) 129 mg/dL 70-110 H Lab Interpretation (test code = Abnormal 47211-9) [facility] ASPIRIN [id number] 10:35:06 Test Item Value Reference Range Interpretation Comments [employer] Aspirin See Comment ARU Test (test code = 4526825743) POP (test code = < 550 ARU [...] and clinical data available [facility] the clinician. [facility] [id number] 10:35:06 Test Item Value Reference Range Interpretation Comments [employer] Aspirin See Comment ARU Test (test code = 8985489792) POP (test code = < 550 ARU [...] and clinical data available to the clinician. [facility] ASPIRIN [id number] 10:35:06 Test Item Value Reference Range Interpretation Comments [employer] Aspirin See Comment ARU Test (test code = 4127016835) POP (test code = < 550 ARU [...] and clinical data available to the clinician. [facility] PRUTEST (P2Y12)2021-03-22 10:28:35 Test Item Value Reference Range Interpretation Comments [employer] PRUTest See_Comment L [Automate d (P2Y12) (test code message] The = 4117641561) system which generated this result transmitted reference [...] clinician. Lab Interpretation Abnormal (test code = 70287-6) [facility] PRUTEST (P2Y12)2021-03-22 10:28:35 Test Item Value Reference Range Interpretation Comments [employer] PRUTest See_Comment L [Automate d (P2Y12) (test code message] The = 3925752308) system which generated this result transmitted reference [...] clinician. Lab Interpretation Abnormal (test code = 46865-8) [facility] PRUTEST (P2Y12)2021-03-22 10:28:35 Test Item Value Reference Range Interpretation Comments [employer] PRUTest See_Comment L [Automate d (P2Y12) (test code message] The = 0545384171) system which generated this result transmitted reference [...] clinician. Lab Interpretation Abnormal (test code = 62032-5) [facility] METABOLIC PANEL (NA, K, CL, CO2, GLUCOSE, BUN, CREATININE, CA)2021-03-22 10:08:19 Test Item Value Reference Range Interpretation Comments NA (test code = 132 mmol/L 135-145 L 9931420063) K (test code = 4.6 mmol/L 3.5-5.0 3074012106) CL (test code = 104 mmol/L 98-108 1506332833) CO2 TOTAL (test code = 22 mmol/L 23-31 L 0423003133) AGAP (test code = 2-16 2098578505) BUN (test code = 19 mg/dL 7-23 4403992080) GLUCOSE (test code = 107 mg/dL 70-110 8990839529) CREATININE (test code = 0.84 mg/dL 0.60-1.25 3748439873) CALCIUM (test code = 8.9 mg/dL 8.6-10.6 5574675629) eGFR (test code = mL/min/1.73m2 6476127720) POP (test code = POP) Association of [...] tests). Lab Interpretation Abnormal (test code = 86681-8) [facility] METABOLIC PANEL (NA, K, CL, CO2, GLUCOSE, BUN, CREATININE, CA)2021-03-22 10:08:19 Test Item Value Reference Range Interpretation Comments NA (test code = 132 mmol/L 135-145 L 6696879508) K (test code = 4.6 mmol/L 3.5-5.0 3176321351) CL (test code = 104 mmol/L 98-108 2064014322) CO2 TOTAL (test code = 22 mmol/L 23-31 L 3394888166) AGAP (test code = 2-16 3175319087) BUN (test code = 19 mg/dL 7-23 3821630451) GLUCOSE (test code = 107 mg/dL 70-110 9813777834) CREATININE (test code = 0.84 mg/dL 0.60-1.25 8461651736) CALCIUM (test code = 8.9 mg/dL 8.6-10.6 3800435255) eGFR (test code = mL/min/1.73m2 8733472036) POP (test code = POP) Association of [...] tests). Lab Interpretation Abnormal (test code = 48294-9) [facility] GLUCOSE (AUTOMATED)2021-03-22 02:18:47 Test Item Value Reference Range Interpretation Comments POCT GLU (test code = 4600204126) 221 mg/dL 70-110 H Lab Interpretation (test code = Abnormal 00511-3) [facility] GLUCOSE (AUTOMATED)2021-03-22 02:18:47 Test Item Value Reference Range Interpretation Comments POCT GLU (test code = 0894888128) 221 mg/dL 70-110 H Lab Interpretation (test code = Abnormal 76871-9) [facility] GLUCOSE (AUTOMATED)2021-03-21 22:41:30 Test Item Value Reference Range Interpretation Comments POCT GLU (test code = 7432712202) 92 mg/dL 70-110 Lab Interpretation (test code = Normal 00730-9) [facility] GLUCOSE (AUTOMATED)2021-03-21 22:41:30 Test Item Value Reference Range Interpretation Comments POCT GLU (test code = 0832516829) 92 mg/dL 70-110 Lab Interpretation (test code = Normal 66617-3) [facility] CULTURE [id number] 18:01:28 Test Item Value Reference Range Interpretation Comments Blood Culture-Aerobic No organisms No growth Previo us (test code = 83092-6) isolated prelim inary verified result was Culture In Progress on 03/16/2021 at 15 01 CSTPrevious preliminary verified result was No growth a t 24 hours on 03/17/2021 at 12 01 CSTPrevious preliminary verified result was No growth a t 48 hours on 03/18/2021 at 12 02 CSTPrevious preliminary verified result was No growth a t 72 hours on 03/19/2021 at 12 01 [employer] Blood No organisms No growth Previous Culture-Anaerobic isolated preliminar y (test code = 11717-9) verifi ed result was Culture In Progress on 03/16/2021 at 15 01 CSTPrevious preliminary verified result was No growth a t 24 hours on 03/17/2021 at 12 01 CSTPrevious preliminary verified result was No growth a t 48 hours on 03/18/2021 at 12 02 CSTPrevious preliminary verified result was No growth a t 72 hours on 03/19/2021 at 12 01 [employer] Lab Interpretation Normal (test code = 21199-7) [facility] CULTURE [id number] 18:01:28 Test Item Value Reference Range Interpretation Comments Blood Culture-Aerobic No organisms No growth Previo us (test code = 94558-6) isolated prelim inary verified result was Culture In Progress on 03/16/2021 at 15 01 CSTPrevious preliminary verified result was No growth a t 24 hours on 03/17/2021 at 12 01 CSTPrevious preliminary verified result was No growth a t 48 hours on 03/18/2021 at 12 02 CSTPrevious preliminary verified result was No growth a t 72 hours on 03/19/2021 at 12 01 [employer] Blood No organisms No growth Previous Culture-Anaerobic isolated preliminar y (test code = 79778-9) verifi ed result was Culture In Progress on 03/16/2021 at 15 01 CSTPrevious preliminary verified result was No growth a t 24 hours on 03/17/2021 at 12 01 CSTPrevious preliminary verified result was No growth a t 48 hours on 03/18/2021 at 12 02 CSTPrevious preliminary verified result was No growth a t 72 hours on 03/19/2021 at 12 01 [employer] Lab Interpretation Normal (test code = 33959-2) [facility] CULTURE [id number] 18:01:28 Test Item Value Reference Range Interpretation Comments Blood Culture-Aerobic No organisms No growth Previo us (test code = 92493-1) isolated prelim inary verified result was Culture In Progress on 03/16/2021 at 15 01 CSTPrevious preliminary verified result was No growth a t 24 hours on 03/17/2021 at 12 01 CSTPrevious preliminary verified result was No growth a t 48 hours on 03/18/2021 at 12 02 CSTPrevious preliminary verified result was No growth a t 72 hours on 03/19/2021 at 12 01 [employer] Blood No organisms No growth Previous Culture-Anaerobic isolated preliminar y (test code = 69545-8) verifi ed result was Culture In Progress on 03/16/2021 at 15 01 CSTPrevious preliminary verified result was No growth a t 24 hours on 03/17/2021 at 12 01 CSTPrevious preliminary verified result was No growth a t 48 hours on 03/18/2021 at 12 02 CSTPrevious preliminary verified result was No growth a t 72 hours on 03/19/2021 at 12 01 [employer] Lab Interpretation Normal (test code = 19643-5) [facility] CULTURE [id number] 18:01:28 Test Item Value Reference Range Interpretation Comments Blood Culture-Aerobic No organisms No growth Previo us (test code = 46059-4) isolated prelim inary verified result was Culture In Progress on 03/16/2021 at 15 01 CSTPrevious preliminary verified result was No growth a t 24 hours on 03/17/2021 at 12 01 CSTPrevious preliminary verified result was No growth a t 48 hours on 03/18/2021 at 12 02 CSTPrevious preliminary verified result was No growth a t 72 hours on 03/19/2021 at 12 01 [employer] Blood No organisms No growth Previous Culture-Anaerobic isolated preliminar y (test code = 39278-4) verifi ed result was Culture In Progress on 03/16/2021 at 15 01 CSTPrevious preliminary verified result was No growth a t 24 hours on 03/17/2021 at 12 01 CSTPrevious preliminary verified result was No growth a t 48 hours on 03/18/2021 at 12 02 CSTPrevious preliminary verified result was No growth a t 72 hours on 03/19/2021 at 12 01 [employer] Lab Interpretation Normal (test code = 28510-9) [facility] GLUCOSE (AUTOMATED)2021-03-21 17:27:07 Test Item Value Reference Range Interpretation Comments POCT GLU (test code = 2825042733) 280 mg/dL 70-110 H Lab Interpretation (test code = Abnormal 24042-7) [facility] GLUCOSE (AUTOMATED)2021-03-21 17:27:07 Test Item Value Reference Range Interpretation Comments POCT GLU (test code = 2015548502) 280 mg/dL 70-110 H Lab Interpretation (test code = Abnormal 79572-5) [facility] GLUCOSE (AUTOMATED)2021-03-21 13:31:44 Test Item Value Reference Range Interpretation Comments POCT GLU (test code = 1779805151) 135 mg/dL 70-110 H Lab Interpretation (test code = Abnormal 30386-7) [facility] GLUCOSE (AUTOMATED)2021-03-21 13:31:44 Test Item Value Reference Range Interpretation Comments POCT GLU (test code = 2717889641) 135 mg/dL 70-110 H Lab Interpretation (test code = Abnormal 65164-7) [facility] METABOLIC PANEL (NA, K, CL, CO2, GLUCOSE, BUN, CREATININE, CA)2021-03-21 11:24:38 Test Item Value Reference Range Interpretation Comments NA (test code = 133 mmol/L 135-145 L 9780056081) K (test code = 4.7 mmol/L 3.5-5.0 7244488791) CL (test code = 105 mmol/L 98-108 5346618226) CO2 TOTAL (test code = 22 mmol/L 23-31 L 6858430684) AGAP (test code = 2-16 1015035517) BUN (test code = 28 mg/dL 7-23 H 5505790862) GLUCOSE (test code = 137 mg/dL 70-110 H 5443346452) CREATININE (test code = 0.76 mg/dL 0.60-1.25 2760819213) CALCIUM (test code = 8.5 mg/dL 8.6-10.6 L 9874501898) eGFR (test code = mL/min/1.73m2 7059855124) POP (test code = POP) Association of [...] tests). Lab Interpretation Abnormal (test code = 28727-4) [facility] METABOLIC PANEL (NA, K, CL, CO2, GLUCOSE, BUN, CREATININE, CA)2021-03-21 11:24:38 Test Item Value Reference Range Interpretation Comments NA (test code = 133 mmol/L 135-145 L 2150456825) K (test code = 4.7 mmol/L 3.5-5.0 1962077484) CL (test code = 105 mmol/L 98-108 9102112139) CO2 TOTAL (test code = 22 mmol/L 23-31 L 5507450712) AGAP (test code = 2-16 8575539817) BUN (test code = 28 mg/dL 7-23 H 4926493647) GLUCOSE (test code = 137 mg/dL 70-110 H 3633166789) CREATININE (test code = 0.76 mg/dL 0.60-1.25 7514520551) CALCIUM (test code = 8.5 mg/dL 8.6-10.6 L 3868669827) eGFR (test code = mL/min/1.73m2 9561730177) POP (test code = POP) Association of [...] tests). Lab Interpretation Abnormal (test code = 98409-1) [facility] WITH [id number] 11:01:33 Test Item Value Reference Range Interpretation [...] RDW-SD (test code = 45.6 fL 38.5-51.6 26253-1) RDW-CV (test code = 13.6 % 12.1-15.4 788-0) PLT (test code = See_Comment H [Automated 777-3) message] The system which generated this result transmit qing reference range : 150 - 328 10*3/ ?L. The reference range was not u sed to interpret th is result as normal/abnormal . MPV (test code = 9.0 fL 9.8-13.0 L 78620-5) NRBC/100 WBC (test See_Comment [Automat ed code = 2556982108) message] The system which generated this result transmit qing reference range : 0.0 - 10.0 /100 WBCs. The reference range was not used to interpret this result as normal/abnormal . NRBC x10^3 (test code <0.01 See_Comment [Auto mated = 3286392533) message] The system which generated this result transmit qing reference range : 10*3/?L. The reference range was not used to interpret this result as normal/abnormal . GRAN MAT (NEUT) % 80.4 % (test code = 770-8) IMM GRAN % (test code 0.60 % = 6588216709) LYMPH % (test code = 11.4 % 736-9) MONO % (test code = 6.1 % 5905-5) EOS % (test code = 1.1 % 713-8) BASO % (test code = 0.4 % 706-2) GRAN MAT x10^3(ANC) 13.72 10*3/uL 1.99-6.95 H (test code = 6738626520) IMM GRAN x10^3 (test 0.11 10*3/uL 0.00-0.06 H code = 9380901537) LYMPH x10^3 (test code 1.94 10*3/uL 1.09-3.23 = 731-0) MONO x10^3 (test code 1.04 10*3/uL 0.36-1.02 H = 742-7) EOS x10^3 (test code = 0.19 10*3/uL 0.06-0.53 711-2) BASO x10^3 (test code 0.06 10*3/uL 0.01-0.09 = 704-7) Lab Interpretation Abnormal (test code = 28895-2) [facility] WITH [id number] 11:01:33 Test Item Value Reference Range Interpretation [...] RDW-SD (test code = 45.6 fL 38.5-51.6 89762-5) RDW-CV (test code = 13.6 % 12.1-15.4 788-0) PLT (test code = See_Comment H [Automated 777-3) message] The system which generated this result transmit qing reference range : 150 - 328 10*3/ ?L. The reference range was not u sed to interpret th is result as normal/abnormal . MPV (test code = 9.0 fL 9.8-13.0 L 07011-8) NRBC/100 WBC (test See_Comment [Automat ed code = 0859205997) message] The system which generated this result transmit qing reference range : 0.0 - 10.0 /100 WBCs. The reference range was not used to interpret this result as normal/abnormal . NRBC x10^3 (test code <0.01 See_Comment [Auto mated = 9613802206) message] The system which generated this result transmit qing reference range : 10*3/?L. The reference range was not used to interpret this result as normal/abnormal . GRAN MAT (NEUT) % 80.4 % (test code = 770-8) IMM GRAN % (test code 0.60 % = 3286975082) LYMPH % (test code = 11.4 % 736-9) MONO % (test code = 6.1 % 5905-5) EOS % (test code = 1.1 % 713-8) BASO % (test code = 0.4 % 706-2) GRAN MAT x10^3(ANC) 13.72 10*3/uL 1.99-6.95 H (test code = 3843788417) IMM GRAN x10^3 (test 0.11 10*3/uL 0.00-0.06 H code = 7874710144) LYMPH x10^3 (test code 1.94 10*3/uL 1.09-3.23 = 731-0) MONO x10^3 (test code 1.04 10*3/uL 0.36-1.02 H = 742-7) EOS x10^3 (test code = 0.19 10*3/uL 0.06-0.53 711-2) BASO x10^3 (test code 0.06 10*3/uL 0.01-0.09 = 704-7) Lab Interpretation Abnormal (test code = 20053-0) [facility] GLUCOSE (AUTOMATED)2021-03-21 02:05:00 Test Item Value Reference Range Interpretation Comments POCT GLU (test code = 127 mg/dL 70-110 H Notifi ed Provider [id number]) Lab Interpretation (test Abnormal code = 06076-8) [facility] GLUCOSE (AUTOMATED)2021-03-21 02:05:00 Test Item Value Reference Range Interpretation Comments POCT GLU (test code = 127 mg/dL 70-110 H Notifi ed Provider [id number]) Lab Interpretation (test Abnormal code = 40614-8) [facility] GLUCOSE (AUTOMATED)2021-03-20 22:05:19 Test Item Value Reference Range Interpretation Comments POCT GLU (test code = 4710925571) 130 mg/dL 70-110 H Lab Interpretation (test code = Abnormal 76351-6) [facility] GLUCOSE (AUTOMATED)2021-03-20 22:05:19 Test Item Value Reference Range Interpretation Comments POCT GLU (test code = 8492782635) 130 mg/dL 70-110 H Lab Interpretation (test code = Abnormal 35639-4) [id number] 19:01:22 Test Item Value Reference Range Interpretation Comments Blood Culture-Aerobic No organisms No growth Previo us (test code = 79394-8) isolated prelim inary verified result was Culture In 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/2021 at 16 01 CSTPrevious preliminary verified result was No growth a t 24 hours on 03/16/2021 at 13 01 CSTPrevious preliminary verified result was No growth a t 48 hours on 03/17/2021 at 13 01 CSTPrevious preliminary verified result was No growth a t 72 hours on 03/18/2021 at 13 01 [employer] Blood No organisms No growth Previous Culture-Anaerobic isolated preliminar y (test code = 65918-8) verifi ed result was Culture In 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/2021 at 16 01 CSTPrevious preliminary verified result was No growth a t 24 hours on 03/16/2021 at 13 01 CSTPrevious preliminary verified result was No growth a t 48 hours on 03/17/2021 at 13 01 CSTPrevious preliminary verified result was No growth a t 72 hours on 03/18/2021 at 13 01 [employer] Lab Interpretation Normal (test code = 98631-7) [id number] 19:01:22 Test Item Value Reference Range Interpretation Comments Blood Culture-Aerobic No organisms No growth Previo us (test code = 75116-3) isolated prelim inary verified result was Culture In 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/2021 at 16 01 CSTPrevious preliminary verified result was No growth a t 24 hours on 03/16/2021 at 13 01 CSTPrevious preliminary verified result was No growth a t 48 hours on 03/17/2021 at 13 01 CSTPrevious preliminary verified result was No growth a t 72 hours on 03/18/2021 at 13 01 [employer] Blood No organisms No growth Previous Culture-Anaerobic isolated preliminar y (test code = 67237-9) verifi ed result was Culture In 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/2021 at 16 01 CSTPrevious preliminary verified result was No growth a t 24 hours on 03/16/2021 at 13 01 CSTPrevious preliminary verified result was No growth a t 48 hours on 03/17/2021 at 13 01 CSTPrevious preliminary verified result was No growth a t 72 hours on 03/18/2021 at 13 01 [employer] Lab Interpretation Normal (test code = 80175-1) [facility] GLUCOSE (AUTOMATED)2021-03-20 18:18:30 Test Item Value Reference Range Interpretation Comments POCT GLU (test code = 0267143478) 127 mg/dL 70-110 H Lab Interpretation (test code = Abnormal 11372-4) [facility] GLUCOSE (AUTOMATED)2021-03-20 18:18:30 Test Item Value Reference Range Interpretation Comments POCT GLU (test code = 8296829683) 127 mg/dL 70-110 H Lab Interpretation (test code = Abnormal 70092-8) [facility] GLUCOSE (AUTOMATED)2021-03-20 16:31:11 Test Item Value Reference Range Interpretation Comments POCT GLU (test code = 5688908835) 118 mg/dL 70-110 H Lab Interpretation (test code = Abnormal 38966-9) [facility] 16:31:11 Test Item Value Reference Range Interpretation Comments POCT GLU (test code = 3017010591) 118 mg/dL 70-110 H Lab Interpretation (test code = Abnormal 07909-6) [facility] METABOLIC PANEL (NA, K, CL, CO2, GLUCOSE, BUN, CREATININE, CA)2021-03-20 13:08:50 Test Item Value Reference Range Interpretation Comments NA (test code = 129 mmol/L 135-145 L 6533028695) K (test code = 5.1 mmol/L 3.5-5.0 H 7976755931) CL (test code = 100 mmol/L 98-108 9014256199) CO2 TOTAL (test code = 21 mmol/L 23-31 L 2536603834) AGAP (test code = 2-16 2747556564) BUN (test code = 39 mg/dL 7-23 H 3696629566) GLUCOSE (test code = 120 mg/dL 70-110 H 8427543931) CREATININE (test code = 0.70 mg/dL 0.60-1.25 6217240692) CALCIUM (test code = 8.7 mg/dL 8.6-10.6 2014930591) eGFR (test code = mL/min/1.73m2 6112291528) POP (test code = POP) Association of [...] tests). Lab Interpretation Abnormal (test code = 57036-9) [facility] (NA, K, CL, CO2, GLUCOSE, BUN, CREATININE, CA)2021-03-20 13:08:50 Test Item Value Reference Range Interpretation Comments NA (test code = 129 mmol/L 135-145 L 4096518314) K (test code = 5.1 mmol/L 3.5-5.0 H 0587653751) CL (test code = 100 mmol/L 98-108 1414425485) CO2 TOTAL (test code = 21 mmol/L 23-31 L 2875108123) AGAP (test code = 2-16 9018388211) BUN (test code = 39 mg/dL 7-23 H 0708191203) GLUCOSE (test code = 120 mg/dL 70-110 H 3119492207) CREATININE (test code = 0.70 mg/dL 0.60-1.25 5127272665) CALCIUM (test code = 8.7 mg/dL 8.6-10.6 0519224981) eGFR (test code = mL/min/1.73m2 9342400151) POP (test code = POP) Association of [...] tests). Lab Interpretation Abnormal (test code = 54397-7) [facility] WITH [id number] 12:44:04 Test Item Value Reference Range Interpretation Comments WBC (test code = See_Comment H [Automated 7090-2) message] The system which generated this result transmit qing reference range : 4.20 - 10.70 10*3/?L. The reference range was not used to interpret this result as normal/abnormal . RBC (test code = See_Comment L [Automated 319-8) message] The system which generated this result [...] RDW-SD (test code = 44.3 fL 38.5-51.6 69603-2) RDW-CV (test code = 13.0 % 12.1-15.4 788-0) PLT (test code = See_Comment H [Automated 777-3) message] The system which generated this result transmit qing reference range : 150 - 328 10*3/ ?L. The reference range was not u sed to interpret th is result as normal/abnormal . MPV (test code = 9.5 fL 9.8-13.0 L 59410-6) NRBC/100 WBC (test See_Comment [Automat ed code = 4428248722) message] The system which generated this result transmit qing reference range : 0.0 - 10.0 /100 WBCs. The reference range was not used to interpret this result as normal/abnormal . NRBC x10^3 (test code <0.01 See_Comment [Auto mated = 9772975242) message] The system which generated this result transmit qing reference range : 10*3/?L. The reference range was not used to interpret this result as normal/abnormal . GRAN MAT (NEUT) % 79.5 % (test code = 770-8) IMM GRAN % (test code 0.70 % = 6770866435) LYMPH % (test code = 12.6 % 736-9) MONO % (test code = 5.2 % 5905-5) EOS % (test code = 1.7 % 713-8) BASO % (test code = 0.3 % 706-2) GRAN MAT x10^3(ANC) 11.98 10*3/uL 1.99-6.95 H (test code = 8524924432) IMM GRAN x10^3 (test 0.10 10*3/uL 0.00-0.06 H code = 8790165037) LYMPH x10^3 (test code 1.90 10*3/uL 1.09-3.23 = 731-0) MONO x10^3 (test code 0.79 10*3/uL 0.36-1.02 = 742-7) EOS x10^3 (test code = 0.26 10*3/uL 0.06-0.53 711-2) BASO x10^3 (test code 0.05 10*3/uL 0.01-0.09 = 704-7) Lab Interpretation Abnormal (test code = 95181-7) [facility] WITH [id number] 12:44:04 Test Item Value Reference Range Interpretation Comments WBC (test code = See_Comment H [Automated 6690-2) message] The system which generated this result transmit qnig reference range : 4.20 - 10.70 10*3/?L. [...] RDW-SD (test code = 44.3 fL 38.5-51.6 42023-8) RDW-CV (test code = 13.0 % 12.1-15.4 788-0) PLT (test code = See_Comment H [Automated 777-3) message] The system which generated this result transmit qing reference range : 150 - 328 10*3/ ?L. The reference range was not u sed to interpret th is result as normal/abnormal . MPV (test code = 9.5 fL 9.8-13.0 L 72132-6) NRBC/100 WBC (test See_Comment [Automat ed code = 8094580237) message] The system which generated this result transmit qing reference range : 0.0 - 10.0 /100 WBCs. The reference range was not used to interpret this result as normal/abnormal . NRBC x10^3 (test code <0.01 See_Comment [Auto mated = 3469167915) message] The system which generated this result transmit qing reference range : 10*3/?L. The reference range was not used to interpret this result as normal/abnormal . GRAN MAT (NEUT) % 79.5 % (test code = 770-8) IMM GRAN % (test code 0.70 % = 9611303366) LYMPH % (test code = 12.6 % 736-9) MONO % (test code = 5.2 % 5905-5) EOS % (test code = 1.7 % 713-8) BASO % (test code = 0.3 % 706-2) GRAN MAT x10^3(ANC) 11.98 10*3/uL 1.99-6.95 H (test code = 2930802839) IMM GRAN x10^3 (test 0.10 10*3/uL 0.00-0.06 H code = 7774216147) LYMPH x10^3 (test code 1.90 10*3/uL 1.09-3.23 = 731-0) MONO x10^3 (test code 0.79 10*3/uL 0.36-1.02 = 742-7) EOS x10^3 (test code = 0.26 10*3/uL 0.06-0.53 711-2) BASO x10^3 (test code 0.05 10*3/uL 0.01-0.09 = 704-7) Lab Interpretation Abnormal (test code = 21141-9) [facility] GLUCOSE (AUTOMATED)2021-03-19 23:48:28 Test Item Value Reference Range Interpretation Comments POCT GLU (test code = 8100902465) 131 mg/dL 70-110 H Lab Interpretation (test code = Abnormal 12806-9) [facility] GLUCOSE (AUTOMATED)2021-03-19 23:48:28 Test Item Value Reference Range Interpretation Comments POCT GLU (test code = 4464691481) 131 mg/dL 70-110 H Lab Interpretation (test code = Abnormal 64715-3) [facility] GLUCOSE (AUTOMATED)2021-03-19 17:56:46 Test Item Value Reference Range Interpretation Comments POCT GLU (test code = 5418676993) 128 mg/dL 70-110 H Lab Interpretation (test code = Abnormal 03792-1) [facility] GLUCOSE (AUTOMATED)2021-03-19 17:56:46 Test Item Value Reference Range Interpretation Comments POCT GLU (test code = 4308566750) 128 mg/dL 70-110 H Lab Interpretation (test code = Abnormal 97732-1) [facility] GLUCOSE (AUTOMATED)2021-03-19 14:18:18 Test Item Value Reference Range Interpretation Comments POCT GLU (test code = 1646215296) 100 mg/dL 70-110 Lab Interpretation (test code = Normal 44089-6) [facility] GLUCOSE (AUTOMATED)2021-03-19 14:18:18 Test Item Value Reference Range Interpretation Comments POCT GLU (test code = 3863271272) 100 mg/dL 70-110 Lab Interpretation (test code = Normal 23079-5) [facility] METABOLIC PANEL (NA, K, CL, CO2, GLUCOSE, BUN, CREATININE, CA)2021-03-19 11:17:21 Test Item Value Reference Range Interpretation Comments NA (test code = 130 mmol/L 135-145 L 2049572197) K (test code = 5.1 mmol/L 3.5-5.0 H 7333729080) CL (test code = 101 mmol/L 98-108 5219891938) CO2 TOTAL (test code = 22 mmol/L 23-31 L 0989598834) AGAP (test code = 2-16 9466369272) BUN (test code = 19 mg/dL 7-23 9226470437) GLUCOSE (test code = 95 mg/dL 70-110 2028297746) CREATININE (test code = 0.75 mg/dL 0.60-1.25 5001635094) CALCIUM (test code = 9.0 mg/dL 8.6-10.6 9715989855) eGFR (test code = mL/min/1.73m2 5407163050) POP (test code = POP) Association of [...] tests). Lab Interpretation Abnormal (test code = 28375-7) [facility] METABOLIC PANEL (NA, K, CL, CO2, GLUCOSE, BUN, CREATININE, CA)2021-03-19 11:17:21 Test Item Value Reference Range Interpretation Comments NA (test code = 130 mmol/L 135-145 L 7653151221) K (test code = 5.1 mmol/L 3.5-5.0 H 8522711353) CL (test code = 101 mmol/L 98-108 5248876852) CO2 TOTAL (test code = 22 mmol/L 23-31 L 0796891466) AGAP (test code = 2-16 4641600549) BUN (test code = 19 mg/dL 7-23 0051687130) GLUCOSE (test code = 95 mg/dL 70-110 2834281284) CREATININE (test code = 0.75 mg/dL 0.60-1.25 9846281513) CALCIUM (test code = 9.0 mg/dL 8.6-10.6 9896888288) eGFR (test code = mL/min/1.73m2 9649965186) POP (test code = POP) Association of [...] tests). Lab Interpretation Abnormal (test code = 20909-8) [facility] GLUCOSE (AUTOMATED)2021-03-18 23:30:38 Test Item Value Reference Range Interpretation Comments POCT GLU (test code = 7588924441) 126 mg/dL 70-110 H Lab Interpretation (test code = Abnormal 31545-9) [facility] GLUCOSE (AUTOMATED)2021-03-18 23:30:38 Test Item Value Reference Range Interpretation Comments POCT GLU (test code = 3927529189) 126 mg/dL 70-110 H Lab Interpretation (test code = Abnormal 09313-6) [facility] GLUCOSE (AUTOMATED)2021-03-18 18:01:48 Test Item Value Reference Range Interpretation Comments POCT GLU (test code = 4673547825) 122 mg/dL 70-110 H Lab Interpretation (test code = Abnormal 23071-2) [facility] GLUCOSE (AUTOMATED)2021-03-18 18:01:48 Test Item Value Reference Range Interpretation Comments POCT GLU (test code = 6342191623) 122 mg/dL 70-110 H Lab Interpretation (test code = Abnormal 04406-7) [facility] CULTURE [id number] 14:30:49 Test Item Value Reference Range Interpretation Comments Blood Culture-Aerobic Culture positive. No growth AA P revious (test code = 21147-3) See Blood prelim inary Culture Workup verified resu lt for additional was Culture I n information. 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/2021 at 16 01 [employer]AND [employer] Lab Interpretation Abnormal (test code = 02017-5) [facility] CULTURE [id number] 14:30:49 Test Item Value Reference Range Interpretation Comments Blood Culture-Aerobic Culture positive. No growth AA P revious (test code = 69694-6) See Blood prelim inary Culture Workup verified resu lt for additional was Culture I n information. 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/2021 at 16 01 LAND ME[employer] Lab Interpretation Abnormal (test code = 07568-9) [facility] GLUCOSE (AUTOMATED)2021-03-18 14:13:04 Test Item Value Reference Range Interpretation Comments POCT GLU (test code = 8909473655) 85 mg/dL 70-110 Lab Interpretation (test code = Normal 36424-9) [facility] GLUCOSE (AUTOMATED)2021-03-18 14:13:04 Test Item Value Reference Range Interpretation Comments POCT GLU (test code = 5642156843) 85 mg/dL 70-110 Lab Interpretation (test code = Normal 95418-4) [facility] Test Item Value Reference Range Interpretation Comments MAGNESIUM (test code = 1919665299) 1.6 mg/dL 1.7-2.4 L Lab Interpretation (test code = Abnormal 24245-6) [facility]2021-12-08 12:24:26 Test Item Value Reference Range Interpretation Comments MAGNESIUM (test code = 3432000625) 1.6 mg/dL 1.7-2.4 L Lab Interpretation (test code = Abnormal 32127-2) [facility] METABOLIC PANEL (NA, K, CL, CO2, GLUCOSE, BUN, CREATININE, CA)2021-03-18 12:24:06 Test Item Value Reference Range Interpretation Comments NA (test code = 131 mmol/L 135-145 L 0726747431) K (test code = 4.5 mmol/L 3.5-5.0 9398578774) CL (test code = 100 mmol/L 98-108 1379142540) CO2 TOTAL (test code = 25 mmol/L 23-31 4375799116) AGAP (test code = 2-16 7662997100) BUN (test code = 19 mg/dL 7-23 7457360995) GLUCOSE (test code = 87 mg/dL 70-110 9799201311) CREATININE (test code = 0.78 mg/dL 0.60-1.25 8748509238) CALCIUM (test code = 8.8 mg/dL 8.6-10.6 3490860710) eGFR (test code = mL/min/1.73m2 5686907249) POP (test code = POP) Association of [...] tests). Lab Interpretation Abnormal (test code = 19538-5) [facility] (NA, K, CL, CO2, GLUCOSE, BUN, CREATININE, CA)2021-03-18 12:24:06 Test Item Value Reference Range Interpretation Comments NA (test code = 131 mmol/L 135-145 L 5120585262) K (test code = 4.5 mmol/L 3.5-5.0 5904016079) CL (test code = 100 mmol/L 98-108 2850841966) CO2 TOTAL (test code = 25 mmol/L 23-31 2806025324) AGAP (test code = 2-16 4101553670) BUN (test code = 19 mg/dL 7-23 4612814452) GLUCOSE (test code = 87 mg/dL 70-110 8236514901) CREATININE (test code = 0.78 mg/dL 0.60-1.25 7377841046) CALCIUM (test code = 8.8 mg/dL 8.6-10.6 1195501332) eGFR (test code = mL/min/1.73m2 6818700004) POP (test code = POP) Association of [...] tests). Lab Interpretation Abnormal (test code = 52719-4) [facility] WITH [id number] 11:18:58 Test Item Value Reference Range Interpretation [...] RDW-SD (test code = 45.3 fL 38.5-51.6 09221-6) RDW-CV (test code = 13.1 % 12.1-15.4 788-0) PLT (test code = See_Comment H [Automated 777-3) message] The sy stem which generated this result transmitted reference range : 150 - 328 10*3/ ?L. The reference r jalen was not used to interpret this result as normal/abnormal . MPV (test code = 9.3 fL 9.8-13.0 L 27909-2) NRBC/100 WBC (test See_Comment [Automat ed code = 8238428695) message] The system which generated this result transmitted reference range : 0.0 - 10.0 /100 WBCs. The refer ence range was not u sed to interpret th is result as normal/abnormal . NRBC x10^3 (test code <0.01 See_Comment [Auto mated = 2734861586) message] The s ystem which generated this result transmitted reference range : 10*3/?L. The reference range was not used to interpret this result as normal/abnormal . GRAN MAT (NEUT) % 69.4 % (test code = 770-8) IMM GRAN % (test code 0.50 % = 4433247927) LYMPH % (test code = 18.2 % 736-9) MONO % (test code = 7.4 % 5905-5) EOS % (test code = 4.0 % 713-8) BASO % (test code = 0.5 % 706-2) GRAN MAT x10^3(ANC) 7.58 10*3/uL 1.99-6.95 H (test code = 5245498730) IMM GRAN x10^3 (test 0.06 10*3/uL 0.00-0.06 code = 1796154587) LYMPH x10^3 (test code 1.99 10*3/uL 1.09-3.23 = 731-0) MONO x10^3 (test code 0.81 10*3/uL 0.36-1.02 = 742-7) EOS x10^3 (test code = 0.44 10*3/uL 0.06-0.53 711-2) BASO x10^3 (test code 0.06 10*3/uL 0.01-0.09 = 704-7) Lab Interpretation Abnormal (test code = 67965-4) [facility] WITH [id number] 11:18:58 Test Item Value Reference Range Interpretation Comments WBC (test code = See_Comment H [Automated 7490-2) message] The sy stem which generated this result transmitted reference range : 4.20 - 10.70 10*3/?L. The reference range was not used to interpret this result as normal/abnormal . RBC (test code = See_Comment L [Automated 429-8) message] The sy stem which generated this [...] RDW-SD (test code = 45.3 fL 38.5-51.6 38573-7) RDW-CV (test code = 13.1 % 12.1-15.4 788-0) PLT (test code = See_Comment H [Automated 777-3) message] The sy stem which generated this result transmitted reference range : 150 - 328 10*3/ ?L. The reference r jalen was not used to interpret this result as normal/abnormal . MPV (test code = 9.3 fL 9.8-13.0 L 64752-3) NRBC/100 WBC (test See_Comment [Automat ed code = 3211104334) message] The system which generated this result transmitted reference range : 0.0 - 10.0 /100 WBCs. The refer ence range was not u sed to interpret th is result as normal/abnormal . NRBC x10^3 (test code <0.01 See_Comment [Auto mated = 8486674045) message] The s ystem which generated this result transmitted reference range : 10*3/?L. The reference range was not used to interpret this result as normal/abnormal . GRAN MAT (NEUT) % 69.4 % (test code = 770-8) IMM GRAN % (test code 0.50 % = 0346542888) LYMPH % (test code = 18.2 % 736-9) MONO % (test code = 7.4 % 5905-5) EOS % (test code = 4.0 % 713-8) BASO % (test code = 0.5 % 706-2) GRAN MAT x10^3(ANC) 7.58 10*3/uL 1.99-6.95 H (test code = 7326160565) IMM GRAN x10^3 (test 0.06 10*3/uL 0.00-0.06 code = 3786483195) LYMPH x10^3 (test code 1.99 10*3/uL 1.09-3.23 = 731-0) MONO x10^3 (test code 0.81 10*3/uL 0.36-1.02 = 742-7) EOS x10^3 (test code = 0.44 10*3/uL 0.06-0.53 711-2) BASO x10^3 (test code 0.06 10*3/uL 0.01-0.09 = 704-7) Lab Interpretation Abnormal (test code = 42301-8) [facility] GLUCOSE (AUTOMATED)2021-03-17 22:53:20 Test Item Value Reference Range Interpretation Comments POCT GLU (test code = 4088157557) 121 mg/dL 70-110 H Lab Interpretation (test code = Abnormal 55936-3) [facility] GLUCOSE (AUTOMATED)2021-03-17 22:53:20 Test Item Value Reference Range Interpretation Comments POCT GLU (test code = 0944362820) 121 mg/dL 70-110 H Lab Interpretation (test code = Abnormal 07159-9) [facility] GLUCOSE (AUTOMATED)2021-03-17 18:13:55 Test Item Value Reference Range Interpretation Comments POCT GLU (test code = 2927738953) 115 mg/dL 70-110 H Lab Interpretation (test code = Abnormal 65110-5) [facility] GLUCOSE (AUTOMATED)2021-03-17 18:13:55 Test Item Value Reference Range Interpretation Comments POCT GLU (test code = 0729925473) 115 mg/dL 70-110 H Lab Interpretation (test code = Abnormal 47224-4) [facility] [id number] 16:28:08 MILD LEUKOCYTOSIS WITH ABSOLUTE NEUTROPHILIA. NO BLASTS IDENTIFIED. ERYTHROCYTES ARE UNREMARKABLE.THROMBOCYTOSIS.[facility] DIFF CONSULT [id number] 16:28:08MILD LEUKOCYTOSIS WITH ABSOLUTE NEUTROPHILIA. NO BLASTS IDENTIFIED. ERYTHROCYTES ARE UNREMARKABLE. THROMBOCYTOSIS.[facility] GLUCOSE (AUTOMATED) 2021-03-17 13:49:48 Test Item Value Reference Range Interpretation Comments POCT GLU (test code = 1732224014) 96 mg/dL 70-110 Lab Interpretation (test code = Normal 34696-1) [facility]21-[facility]-17 13:49:48 Test Item Value Reference Range Interpretation Comments POCT GLU (test code = 1486159253) 96 mg/dL 70-110 Lab Interpretation (test code = Normal 82685-2) [facility] METABOLIC PANEL (NA, K, CL, CO2, GLUCOSE, BUN, CREATININE, CA)2021-03-17 13:21:15 Test Item Value Reference Range Interpretation Comments NA (test code = 131 mmol/L 135-145 L 1300041017) K (test code = 4.3 mmol/L 3.5-5.0 0908432521) CL (test code = 100 mmol/L 98-108 9587416276) CO2 TOTAL (test code = 25 mmol/L 23-31 9092412389) AGAP (test code = 2-16 6483641105) BUN (test code = 16 mg/dL 7-23 2080305631) GLUCOSE (test code = 104 mg/dL 70-110 2848438538) CREATININE (test code = 0.73 mg/dL 0.60-1.25 3363631413) CALCIUM (test code = 8.7 mg/dL 8.6-10.6 1320877310) eGFR (test code = mL/min/1.73m2 7971018532) POP (test code = POP) Association of [...] tests). Lab Interpretation Abnormal (test code = 92180-0) [facility] METABOLIC PANEL (NA, K, CL, CO2, GLUCOSE, BUN, CREATININE, CA)2021-03-17 13:21:15 Test Item Value Reference Range Interpretation Comments NA (test code = 131 mmol/L 135-145 L 8150070811) K (test code = 4.3 mmol/L 3.5-5.0 6219338657) CL (test code = 100 mmol/L 98-108 0834194662) CO2 TOTAL (test code = 25 mmol/L 23-31 7392364670) AGAP (test code = 2-16 9386546035) BUN (test code = 16 mg/dL 7-23 3051770376) GLUCOSE (test code = 104 mg/dL 70-110 7312157953) CREATININE (test code = 0.73 mg/dL 0.60-1.25 9047352872) CALCIUM (test code = 8.7 mg/dL 8.6-10.6 5867817354) eGFR (test code = mL/min/1.73m2 8892910056) POP (test code = POP) Association of [...] tests). Lab Interpretation Abnormal (test code = 15025-8) [facility] (Total Cholesterol, Triglycerides, HDL) - [id number] 12:55:53 Test Item Value Reference Range Interpretation Comments CHOL (test code = 82 mg/dL 120-200 L 0447915690) HDL (test code = 28 mg/dL >40 L 0408183356) HDLC RATIO (test code = See_Comment [Au tomated message] 0848839045) The system [employer] generated this result transmitted ref erence range: <=5.0. T he reference range was not used to int erpret this result as normal/abnormal . TRIG (test code = 88 mg/dL 30-170 8564221203) LDL CHOL (test code = 36 mg/dL See_Comment [Auto mated message] 51773-1) The system [employer] generated this result transmitted ref erence range: <=160. T he reference range was not used to int erpret this result as normal/abnormal . VLDL (test code = 18 mg/dL 5-60 3791785347) Lab Interpretation (test Abnormal code = 99512-5) [facility] (Total Cholesterol, Triglycerides, HDL) - [id number] 12:55:53 Test Item Value Reference Range Interpretation Comments CHOL (test code = 82 mg/dL 120-200 L 9577628518) HDL (test code = 28 mg/dL >40 L 1912519830) HDLC RATIO (test code = See_Comment [Au tomated message] 6912483725) The system [employer] generated this result transmitted ref erence range: <=5.0. T he reference range was not used to int erpret this result as normal/abnormal . TRIG (test code = 88 mg/dL 30-170 4036384258) LDL CHOL (test code = 36 mg/dL See_Comment [Auto mated message] 52031-5) The system [employer] generated this result transmitted ref erence range: <=160. T he reference range was not used to int erpret this result as normal/abnormal . VLDL (test code = 18 mg/dL 5-60 6566234567) Lab Interpretation (test Abnormal code = 64163-2) [facility] (Total Cholesterol, Triglycerides, HDL) - [id number] 12:55:53 Test Item Value Reference Range Interpretation Comments CHOL (test code = 82 mg/dL 120-200 L 9790019840) HDL (test code = 28 mg/dL >40 L 0432385335) HDLC RATIO (test code = See_Comment [Au tomated message] 2699864274) The system [employer] generated this result transmitted ref erence range: <=5.0. T he reference range was not used to int erpret this result as normal/abnormal . TRIG (test code = 88 mg/dL 30-170 2203888841) LDL CHOL (test code = 36 mg/dL See_Comment [Auto mated message] 82290-4) The system [employer] generated this result transmitted ref erence range: <=160. T he reference range was not used to int erpret this result as normal/abnormal . VLDL (test code = 18 mg/dL 5-60 4511610649) Lab Interpretation (test Abnormal code = 65476-6) [facility] Test Item Value Reference Range Interpretation Comments MAGNESIUM (test code = 0619377730) 1.6 mg/dL 1.7-2.4 L Lab Interpretation (test code = Abnormal 92603-5) [facility] Test Item Value Reference Range Interpretation Comments MAGNESIUM (test code = 7044495923) 1.6 mg/dL 1.7-2.4 L Lab Interpretation (test code = Abnormal 30033-6) [facility] Test Item Value Reference Range Interpretation Comments PHOSPHORUS (test code = 6542512331) 2.5 mg/dL 2.5-5.0 Lab Interpretation (test code = Normal 67733-3) [facility] 12[facility]:12 Test Item Value Reference Range Interpretation Comments PHOSPHORUS (test code = 4689103468) 2.5 mg/dL 2.5-5.0 Lab Interpretation (test code = Normal 66620-2) [facility] 12:55:12 Test Item Value Reference Range Interpretation Comments PHOSPHORUS (test code = 8460340536) 2.5 mg/dL 2.5-5.0 Lab Interpretation (test code = Normal 00305-1) [facility] WITH [id number] 12:17:31 Test Item Value Reference Range Interpretation [...] RDW-SD (test code = 45.4 fL 38.5-51.6 88258-5) RDW-CV (test code = 13.2 % 12.1-15.4 788-0) PLT (test code = See_Comment H [Automated 777-3) message] The sy stem which generated this result transmitted reference range : 150 - 328 10*3/ ?L. The reference r jalen was not used to interpret this result as normal/abnormal . MPV (test code = 9.3 fL 9.8-13.0 L 79406-9) NRBC/100 WBC (test See_Comment [Automat ed code = 4730849272) message] The system which generated this result transmitted reference range : 0.0 - 10.0 /100 WBCs. The refer ence range was not u sed to interpret th is result as normal/abnormal . NRBC x10^3 (test code <0.01 See_Comment [Auto mated = 2571045771) message] The s ystem which generated this result transmitted reference range : 10*3/?L. The reference range was not used to interpret this result as normal/abnormal . GRAN MAT (NEUT) % 80.8 % (test code = 770-8) IMM GRAN % (test code 0.40 % = 7752428477) LYMPH % (test code = 11.0 % 736-9) MONO % (test code = 5.4 % 5905-5) EOS % (test code = 1.9 % 713-8) BASO % (test code = 0.5 % 706-2) GRAN MAT x10^3(ANC) 9.07 10*3/uL 1.99-6.95 H (test code = 0884382230) IMM GRAN x10^3 (test 0.05 10*3/uL 0.00-0.06 code = 0350365391) LYMPH x10^3 (test code 1.24 10*3/uL 1.09-3.23 = 731-0) MONO x10^3 (test code 0.61 10*3/uL 0.36-1.02 = 742-7) EOS x10^3 (test code = 0.21 10*3/uL 0.06-0.53 711-2) BASO x10^3 (test code 0.06 10*3/uL 0.01-0.09 = 704-7) Lab Interpretation Abnormal (test code = 10235-4) [facility] WITH [id number] 12:17:31 Test Item Value Reference Range Interpretation [...] RDW-SD (test code = 45.4 fL 38.5-51.6 02909-1) RDW-CV (test code = 13.2 % 12.1-15.4 788-0) PLT (test code = See_Comment H [Automated 777-3) message] The sy stem which generated this result transmitted reference range : 150 - 328 10*3/ ?L. The reference r jalen was not used to interpret this result as normal/abnormal . MPV (test code = 9.3 fL 9.8-13.0 L 63982-2) NRBC/100 WBC (test See_Comment [Automat ed code = 5677264376) message] The system which generated this result transmitted reference range : 0.0 - 10.0 /100 WBCs. The refer ence range was not u sed to interpret th is result as normal/abnormal . NRBC x10^3 (test code <0.01 See_Comment [Auto mated = 8125235939) message] The s ystem which generated this result transmitted reference range : 10*3/?L. The reference range was not used to interpret this result as normal/abnormal . GRAN MAT (NEUT) % 80.8 % (test code = 770-8) IMM GRAN % (test code 0.40 % = 2654581748) LYMPH % (test code = 11.0 % 736-9) MONO % (test code = 5.4 % 5905-5) EOS % (test code = 1.9 % 713-8) BASO % (test code = 0.5 % 706-2) GRAN MAT x10^3(ANC) 9.07 10*3/uL 1.99-6.95 H (test code = 5870140631) IMM GRAN x10^3 (test 0.05 10*3/uL 0.00-0.06 code = 9033230870) LYMPH x10^3 (test code 1.24 10*3/uL 1.09-3.23 = 731-0) MONO x10^3 (test code 0.61 10*3/uL 0.36-1.02 = 742-7) EOS x10^3 (test code = 0.21 10*3/uL 0.06-0.53 711-2) BASO x10^3 (test code 0.06 10*3/uL 0.01-0.09 = 704-7) Lab Interpretation Abnormal (test code = 30638-4) [facility] 01:47:27 Test Item Value Reference Range Interpretation Comments HGB A1C (test code = 5.9 % 4.0-5.7 H 4548-4) POP (test code = POP) Reference RangesNormal: <5.7%Prediabetes: 5.7 - 6.4%Diabetes: > 6.5% Lab Interpretation (test Abnormal code = 88129-3) [facility]21-03-17 01:47:27 Test Item Value Reference Range Interpretation Comments HGB A1C (test code = 5.9 % 4.0-5.7 H 4548-4) POP (test code = POP) Reference RangesNormal: <5.7%Prediabetes: 5.7 - 6.4%Diabetes: > 6.5% Lab Interpretation (test Abnormal code = 89484-5) [facility]2021-03-17 01:47:27 Test Item Value Reference Range Interpretation Comments HGB A1C (test code = 5.9 % 4.0-5.7 H 4548-4) POP (test code = POP) Reference RangesNormal: <5.7%Prediabetes: 5.7 - 6.4%Diabetes: > 6.5% Lab Interpretation (test Abnormal code = 77757-2) [facility] GLUCOSE (AUTOMATED)2021-03-16 23:09:50 Test Item Value Reference Range Interpretation Comments POCT GLU (test code = 7088563528) 134 mg/dL 70-110 H Lab Interpretation (test code = Abnormal 56198-0) [facility] GLUCOSE (AUTOMATED)2021-03-16 23:09:50 Test Item Value Reference Range Interpretation Comments POCT GLU (test code = 2058584737) 134 mg/dL 70-110 H Lab Interpretation (test code = Abnormal 83562-5) [facility] POSITIVE BLOOD PATHOGENS DNA [id number] 20:26:17 Test Item Value Reference Range Interpretation Comments Gram Positive Blood No organisms included in Pathogens DNA the Blood DNA Probe test Probe-Aerobic (test panel were detected. code = 60766-2) Further identification workup to be performed by culture testing methods. POP (test code = See blood culture result POP) for additional information. Testing included eleven identification and three resistancemarker targets. [facility] POSITIVE BLOOD PATHOGENS DNA [id number] 20:26:17 Test Item Value Reference Range Interpretation Comments Gram Positive Blood No organisms included in Pathogens DNA the Blood DNA Probe test Probe-Aerobic (test panel were detected. code = 14641-1) Further identification workup to be performed by culture testing methods. POP (test code = See blood culture result POP) for additional information. Testing included eleven identification and three resistancemarker targets. [facility] POSITIVE BLOOD PATHOGENS DNA [id number] 20:26:17 Test Item Value Reference Range Interpretation Comments Gram Positive Blood No organisms included in Pathogens DNA the Blood DNA Probe test Probe-Aerobic (test panel were detected. code = 29100-5) Further identification workup to be performed by culture testing methods. POP (test code = See blood culture result POP) for additional information. Testing included eleven identification and three resistancemarker targets. [facility] GLUCOSE (AUTOMATED)2021-03-16 18:07:59 Test Item Value Reference Range Interpretation Comments POCT GLU (test code = 2032930918) 125 mg/dL 70-110 H Lab Interpretation (test code = Abnormal 13402-6) [facility] GLUCOSE (AUTOMATED)2021-03-16 18:07:59 Test Item Value Reference Range Interpretation Comments POCT GLU (test code = 4910119637) 125 mg/dL 70-110 H Lab Interpretation (test code = Abnormal 05644-6) [facility] METABOLIC PANEL (NA, K, CL, CO2, GLUCOSE, BUN, CREATININE, CA)2021-03-16 17:53:54 Test Item Value Reference Range Interpretation Comments NA (test code = 132 mmol/L 135-145 L 1019008583) K (test code = 3.0 mmol/L 3.5-5.0 L 9468655071) CL (test code = 95 mmol/L 98-108 L 5555098350) CO2 TOTAL (test code = 29 mmol/L 23-31 1264055914) AGAP (test code = 2-16 8552053765) BUN (test code = 14 mg/dL 7-23 4046966874) GLUCOSE (test code = 136 mg/dL 70-110 H 0138063448) CREATININE (test code = 0.79 mg/dL 0.60-1.25 8723652352) CALCIUM (test code = 9.6 mg/dL 8.6-10.6 0104822600) eGFR (test code = mL/min/1.73m2 1815230216) POP (test code = POP) Association of [...] tests). Lab Interpretation Abnormal (test code = 54016-7) [facility] METABOLIC PANEL (NA, K, CL, CO2, GLUCOSE, BUN, CREATININE, CA)2021-03-16 17:53:54 Test Item Value Reference Range Interpretation Comments NA (test code = 132 mmol/L 135-145 L 5790782321) K (test code = 3.0 mmol/L 3.5-5.0 L 1726489421) CL (test code = 95 mmol/L 98-108 L 2362834785) CO2 TOTAL (test code = 29 mmol/L 23-31 1479972287) AGAP (test code = 2-16 8733992365) BUN (test code = 14 mg/dL 7-23 1690868688) GLUCOSE (test code = 136 mg/dL 70-110 H 0320663358) CREATININE (test code = 0.79 mg/dL 0.60-1.25 3192522185) CALCIUM (test code = 9.6 mg/dL 8.6-10.6 3697139044) eGFR (test code = mL/min/1.73m2 9204702393) POP (test code = POP) Association of [...] tests). Lab Interpretation Abnormal (test code = 08930-5) [facility] 16:33:30 Test Item Value Reference Range Interpretation Comments Procalcitonin (test 0.05 ng/mL <0.07 code = 1671283708) POP (test code = POP) INTERPRETATION OF [...] lung abscess/empyema. For further information please refer to:[email or web address] Lab Interpretation Normal (test code = 14255-7) [facility] 16:33:30 Test Item Value Reference Range Interpretation Comments Procalcitonin (test 0.05 ng/mL <0.07 code = 7334486863) POP (test code = POP) INTERPRETATION OF [...] lung abscess/empyema. For further information please refer to:[email or web address] Lab Interpretation Normal (test code = 12561-7) [facility] 16:33:30 Test Item Value Reference Range Interpretation Comments Procalcitonin (test 0.05 ng/mL <0.07 code = 2514132380) POP (test code = POP) INTERPRETATION OF [...] lung abscess/empyema. For further information please refer to:[email or web address] Lab Interpretation Normal (test code = 49504-9) [facility]2021-12-06 14:05:27 Test Item Value Reference Range Interpretation Comments MAGNESIUM (test code = 9644597077) 1.7 mg/dL 1.7-2.4 Lab Interpretation (test code = Normal 40284-1) [facility]2021-12-06 14:05:27 Test Item Value Reference Range Interpretation Comments MAGNESIUM (test code = 5495756960) 1.7 mg/dL 1.7-2.4 Lab Interpretation (test code = Normal 90241-5) [facility] GLUCOSE (AUTOMATED)2021-03-16 13:56:02 Test Item Value Reference Range Interpretation Comments POCT GLU (test code = 2951489587) 126 mg/dL 70-110 H Lab Interpretation (test code = Abnormal 77790-8) [facility] GLUCOSE (AUTOMATED)2021-03-16 13:56:02 Test Item Value Reference Range Interpretation Comments POCT GLU (test code = 4556497504) 126 mg/dL 70-110 H Lab Interpretation (test code = Abnormal 22815-9) [facility] with [id number] 12:25:24 Test Item Value Reference Range Interpretation [...] RDW-SD (test code = 43.7 fL 38.5-51.6 65086-8) RDW-CV (test code = 13.2 % 12.1-15.4 788-0) PLT (test code = See_Comment H [Automated 777-3) message] The system which generated this result transmit qing reference range : 150 - 328 10*3/ ?L. The reference range was not u sed to interpret th is result as normal/abnormal . MPV (test code = 9.2 fL 9.8-13.0 L 13661-6) NRBC/100 WBC (test See_Comment [Automat ed code = 8304144716) message] The system which generated this result transmit qing reference range : 0.0 - 10.0 /100 WBCs. The reference range was not used to interpret this result as normal/abnormal . NRBC x10^3 (test code <0.01 See_Comment [Auto mated = 2500319762) message] The system which generated this result transmit qing reference range : 10*3/?L. The reference range was not used to interpret this result as normal/abnormal . GRAN MAT (NEUT) % 85.4 % (test code = 770-8) IMM GRAN % (test code 0.70 % = 0896063318) LYMPH % (test code = 8.2 % 736-9) MONO % (test code = 4.5 % 5905-5) EOS % (test code = 0.8 % 713-8) BASO % (test code = 0.4 % 706-2) GRAN MAT x10^3(ANC) 13.38 10*3/uL 1.99-6.95 H (test code = 1175850326) IMM GRAN x10^3 (test 0.11 10*3/uL 0.00-0.06 H code = 2389982227) LYMPH x10^3 (test code 1.29 10*3/uL 1.09-3.23 = 731-0) MONO x10^3 (test code 0.70 10*3/uL 0.36-1.02 = 742-7) EOS x10^3 (test code = 0.13 10*3/uL 0.06-0.53 711-2) BASO x10^3 (test code 0.06 10*3/uL 0.01-0.09 = 704-7) Lab Interpretation Abnormal (test code = 57032-4) [facility] with [id number] 12:25:24 Test Item Value Reference Range Interpretation [...] RDW-SD (test code = 43.7 fL 38.5-51.6 30991-7) RDW-CV (test code = 13.2 % 12.1-15.4 788-0) PLT (test code = See_Comment H [Automated 777-3) message] The system which generated this result transmit qing reference range : 150 - 328 10*3/ ?L. The reference range was not u sed to interpret th is result as normal/abnormal . MPV (test code = 9.2 fL 9.8-13.0 L 56762-7) NRBC/100 WBC (test See_Comment [Automat ed code = 3787518446) message] The system which generated this result transmit qing reference range : 0.0 - 10.0 /100 WBCs. The reference range was not used to interpret this result as normal/abnormal . NRBC x10^3 (test code <0.01 See_Comment [Auto mated = 4244544939) message] The system which generated this result transmit qing reference range : 10*3/?L. The reference range was not used to interpret this result as normal/abnormal . GRAN MAT (NEUT) % 85.4 % (test code = 770-8) IMM GRAN % (test code 0.70 % = 7700344456) LYMPH % (test code = 8.2 % 736-9) MONO % (test code = 4.5 % 5905-5) EOS % (test code = 0.8 % 713-8) BASO % (test code = 0.4 % 706-2) GRAN MAT x10^3(ANC) 13.38 10*3/uL 1.99-6.95 H (test code = 9398978904) IMM GRAN x10^3 (test 0.11 10*3/uL 0.00-0.06 H code = 4411782703) LYMPH x10^3 (test code 1.29 10*3/uL 1.09-3.23 = 731-0) MONO x10^3 (test code 0.70 10*3/uL 0.36-1.02 = 742-7) EOS x10^3 (test code = 0.13 10*3/uL 0.06-0.53 711-2) BASO x10^3 (test code 0.06 10*3/uL 0.01-0.09 = 704-7) Lab Interpretation Abnormal (test code = 82054-5) [facility] Metabolic Panel (NA, K, CL, CO2, GLUCOSE, BUN, CREATININE, CA)2021-03-16 12:09:56 Test Item Value Reference Range Interpretation Comments NA (test code = 133 mmol/L 135-145 L 3230774741) K (test code = 2.8 mmol/L 3.5-5.0 LL 6274414911) CL (test code = 96 mmol/L 98-108 L 7479374215) CO2 TOTAL (test code = 28 mmol/L 23-31 1617283355) AGAP (test code = 2-16 1995398046) BUN (test code = 14 mg/dL 7-23 0612601220) GLUCOSE (test code = 137 mg/dL 70-110 H 3395115333) CREATININE (test code = 0.76 mg/dL 0.60-1.25 0549140586) CALCIUM (test code = 9.4 mg/dL 8.6-10.6 5580211234) eGFR (test code = mL/min/1.73m2 5349624252) POP (test code = POP) Association of [...] tests). Lab Interpretation Abnormal (test code = 53771-1) [facility] Metabolic Panel (NA, K, CL, CO2, GLUCOSE, BUN, CREATININE, CA)2021-03-16 12:09:56 Test Item Value Reference Range Interpretation Comments NA (test code = 133 mmol/L 135-145 L 7195042262) K (test code = 2.8 mmol/L 3.5-5.0 LL 9823610810) CL (test code = 96 mmol/L 98-108 L 3260074889) CO2 TOTAL (test code = 28 mmol/L 23-31 6402885929) AGAP (test code = 2-16 5627917337) BUN (test code = 14 mg/dL 7-23 3655282731) GLUCOSE (test code = 137 mg/dL 70-110 H 2968766904) CREATININE (test code = 0.76 mg/dL 0.60-1.25 7887811987) CALCIUM (test code = 9.4 mg/dL 8.6-10.6 6633537983) eGFR (test code = mL/min/1.73m2 6659487769) POP (test code = POP) Association of [...] tests). Lab Interpretation Abnormal (test code = 43036-6) [facility] (ALB,T.PRO,BILI T,BU/BC,ALT,AST,ALK PHOS)2021-03-16 12:06:58 Test Item Value Reference Range Interpretation Comments TOTAL BILI (test code = 9728841509) 0.7 mg/dL 0.1-1.1 BILI UNCON (test code = 7557824568) 0.4 mg/dL 0.1-1.1 BILI CONJ (test code = 5050241341) 0.0 mg/dL 0.0-0.3 T PROTEIN (test code = 5177288072) 7.6 g/dL 6.3-8.2 ALBUMIN (test code = 4203504108) 4.0 g/dL 3.5-5.0 ALK PHOS (test code = 5912048226) 113 U/L 34-122 ALTv (test code = 1742-6) 23 U/L 5-50 AST(SGOT) (test code = 9202798742) 34 U/L 13-40 Lab Interpretation (test code = Normal 30318-4) [facility]34482[facility] (ALB,T.PRO,BILI T,BU/BC,ALT,AST,ALK PHOS)2021-03-16 12:06:58 Test Item Value Reference Range Interpretation Comments TOTAL BILI (test code = 8656807426) 0.7 mg/dL 0.1-1.1 BILI UNCON (test code = 2727787919) 0.4 mg/dL 0.1-1.1 BILI CONJ (test code = 1113894417) 0.0 mg/dL 0.0-0.3 T PROTEIN (test code = 8985688790) 7.6 g/dL 6.3-8.2 ALBUMIN (test code = 5021544472) 4.0 g/dL 3.5-5.0 ALK PHOS (test code = 9956676943) 113 U/L 34-122 ALTv (test code = 1742-6) 23 U/L 5-50 AST(SGOT) (test code = 4918209728) 34 U/L 13-40 Lab Interpretation (test code = Normal 84364-5) [facility] GLUCOSE (AUTOMATED)2021-03-15 22:30:07 Test Item Value Reference Range Interpretation Comments POCT GLU (test code = 5270733973) 115 mg/dL 70-110 H Lab Interpretation (test code = Abnormal 80647-8) [facility] GLUCOSE (AUTOMATED)2021-03-15 22:30:07 Test Item Value Reference Range Interpretation Comments POCT GLU (test code = 0308863199) 115 mg/dL 70-110 H Lab Interpretation (test code = Abnormal 07187-4) [facility] 21:08:31 Test Item Value Reference Range Interpretation Comments PHOSPHORUS (test code = 0875803227) 4.0 mg/dL 2.5-5.0 Lab Interpretation (test code = Normal 76376-2) [facility] 21:08:31 Test Item Value Reference Range Interpretation Comments PHOSPHORUS (test code = 8662250255) 4.0 mg/dL 2.5-5.0 Lab Interpretation (test code = Normal 22473-1) [facility] [id number] 18:41:06 Test Item Value Reference Interpretation Comments Range TROPONIN I (test 0.011 ng/mL See_Comment [Automated code = 1256206970) message] The system which generated this result [...] biotin. Lab Interpretation Normal (test code = 67948-0) [facility] [id number] 18:41:06 Test Item Value Reference Interpretation Comments Range TROPONIN I (test 0.011 ng/mL See_Comment [Automated code = 7119064628) message] The system which generated this result [...] biotin. Lab Interpretation Normal (test code = 30175-7) [facility] [id number] 18:41:06 Test Item Value Reference Interpretation Comments Range TROPONIN I (test 0.011 ng/mL See_Comment [Automated code = 4744823538) message] The system which generated this result [...] biotin. Lab Interpretation Normal (test code = 64865-4) [facility] [id number] 18:38:05 Test Item Value Reference Range Interpretation Comments NT-proBNP (test code 77 pg/mL See_Comment [Autom ated = 8445748450) message] The system which generated this result transmitted reference range : <=125. The reference range was not used to interpret this result as normal/abnormal . POP (test code = POP) Biotin has been reported to cause a negative bias, interpret results relative to patient's use of biotin. Lab Interpretation Normal (test code = 18459-2) [facility] [id number] 18:38:05 Test Item Value Reference Range Interpretation Comments NT-proBNP (test code 77 pg/mL See_Comment [Autom ated = 0531979519) message] The system which generated this result transmitted reference range : <=125. The reference range was not used to interpret this result as normal/abnormal . POP (test code = POP) Biotin has been reported to cause a negative bias, interpret results relative to patient's use of biotin. Lab Interpretation Normal (test code = 60272-3) [facility] [id number] 18:38:05 Test Item Value Reference Range Interpretation Comments NT-proBNP (test code 77 pg/mL See_Comment [Autom ated = 0809165598) message] The system which generated this result transmitted reference range : <=125. The reference range was not used to interpret this result as normal/abnormal . POP (test code = POP) Biotin has been reported to cause a negative bias, interpret results relative to patient's use of biotin. Lab Interpretation Normal (test code = 25632-1) [facility] 18:29:46 Test Item Value Reference Range Interpretation Comments MAGNESIUM (test code = 0912999734) 1.4 mg/dL 1.7-2.4 L Lab Interpretation (test code = Abnormal 69731-5) [facility] Test Item Value Reference Range Interpretation Comments MAGNESIUM (test code = 5699978080) 1.4 mg/dL 1.7-2.4 L Lab Interpretation (test code = Abnormal 75416-1) [facility] (74859)2021-03-15 18:29:26 Test Item Value Reference Range Interpretation Comments NA (test code = 134 mmol/L 135-145 L 4665615377) K (test code = 3.1 mmol/L 3.5-5.0 L 8435554271) CL (test code = 94 mmol/L 98-108 L 7357869438) CO2 TOTAL (test code = 29 mmol/L 23-31 0727475580) AGAP (test code = 2-16 0370911163) BUN (test code = 13 mg/dL 7-23 2881117465) GLUCOSE (test code = 126 mg/dL 70-110 H 1145397355) CREATININE (test code = 0.79 mg/dL 0.60-1.25 9684441377) TOTAL BILI (test code = 0.7 mg/dL 0.1-1.0 0860988675) CALCIUM (test code = 9.7 mg/dL 8.6-10.6 4230583908) T PROTEIN (test code = 7.5 g/dL 6.3-8.2 3233838365) ALBUMIN (test code = 4.1 g/dL 3.5-5.0 7818814758) ALK PHOS (test code = 110 U/L 34-122 2625938576) ALTv (test code = 22 U/L 5-50 1742-6) AST(SGOT) (test code = 25 U/L 13-40 0653291542) eGFR (test code = mL/min/1.73m2 9506204814) POP (test code = POP) Association of [...] tests). Lab Interpretation Abnormal (test code = 29128-5) [facility]. METABOLIC PANEL (81692)2021-03-15 18:29:26 Test Item Value Reference Range Interpretation Comments NA (test code = 134 mmol/L 135-145 L 2642715333) K (test code = 3.1 mmol/L 3.5-5.0 L 5253179505) CL (test code = 94 mmol/L 98-108 L 4727667463) CO2 TOTAL (test code = 29 mmol/L 23-31 4563672472) AGAP (test code = 2-16 0360885478) BUN (test code = 13 mg/dL 7-23 9504319242) GLUCOSE (test code = 126 mg/dL 70-110 H 2711732802) CREATININE (test code = 0.79 mg/dL 0.60-1.25 5253988513) TOTAL BILI (test code = 0.7 mg/dL 0.1-1.3 9370686854) CALCIUM (test code = 9.7 mg/dL 8.6-10.6 3544706581) T PROTEIN (test code = 7.5 g/dL 6.3-8.2 3046698747) ALBUMIN (test code = 4.1 g/dL 3.5-5.0 7080858591) ALK PHOS (test code = 110 U/L 34-122 1381339164) ALTv (test code = 22 U/L 5-50 1742-6) AST(SGOT) (test code = 25 U/L 13-40 4038070355) eGFR (test code = mL/min/1.73m2 3439127280) POP (test code = POP) Association of [...] tests). Lab Interpretation Abnormal (test code = 75517-5) [facility]. METABOLIC PANEL (99157)2021-03-15 18:29:26 Test Item Value Reference Range Interpretation Comments NA (test code = 134 mmol/L 135-145 L 4412576969) K (test code = 3.1 mmol/L 3.5-5.0 L 7958192652) CL (test code = 94 mmol/L 98-108 L 6496904971) CO2 TOTAL (test code = 29 mmol/L 23-31 4014260460) AGAP (test code = 2-16 5979976927) BUN (test code = 13 mg/dL 7-23 7974914858) GLUCOSE (test code = 126 mg/dL 70-110 H 2261068012) CREATININE (test code = 0.79 mg/dL 0.60-1.25 6783653567) TOTAL BILI (test code = 0.7 mg/dL 0.1-1.4 7749681863) CALCIUM (test code = 9.7 mg/dL 8.6-10.6 0891476181) T PROTEIN (test code = 7.5 g/dL 6.3-8.2 4852955781) ALBUMIN (test code = 4.1 g/dL 3.5-5.0 0491816548) ALK PHOS (test code = 110 U/L 34-122 4218303842) ALTv (test code = 22 U/L 5-50 1742-6) AST(SGOT) (test code = 25 U/L 13-40 2391121942) eGFR (test code = mL/min/1.73m2 8545408600) POP (test code = POP) Association of [...] tests). Lab Interpretation Abnormal (test code = 14546-8) [facility] WITH [id number] 18:16:23 Test Item Value Reference Range Interpretation Comments WBC (test code = See_Comment H [Automated 9090-2) message] The sy stem which generated this result transmitted reference range : 4.20 - 10.70 10*3/?L. The reference range was not used to interpret this result as normal/abnormal . RBC (test code = See_Comment [Automated 189-8) message] The sy stem which generated this [...] RDW-SD (test code = 44.5 fL 38.5-51.6 96073-5) RDW-CV (test code = 13.2 % 12.1-15.4 788-0) PLT (test code = See_Comment H [Automated 777-3) message] The sy stem which generated this result transmitted reference range : 150 - 328 10*3/ ?L. The reference r jalen was not used to interpret this result as normal/abnormal . MPV (test code = 9.0 fL 9.8-13.0 L 24663-4) NRBC/100 WBC (test See_Comment [Automat ed code = 4089750339) message] The system which generated this result transmitted reference range : 0.0 - 10.0 /100 WBCs. The refer ence range was not u sed to interpret th is result as normal/abnormal . NRBC x10^3 (test code <0.01 See_Comment [Auto mated = 3341686280) message] The s ystem which generated this result transmitted reference range : 10*3/?L. The reference range was not used to interpret this result as normal/abnormal . GRAN MAT (NEUT) % 72.0 % (test code = 770-8) IMM GRAN % (test code 0.60 % = 0345485134) LYMPH % (test code = 19.3 % 736-9) MONO % (test code = 4.8 % 5905-5) EOS % (test code = 2.5 % 713-8) BASO % (test code = 0.8 % 706-2) GRAN MAT x10^3(ANC) 7.83 10*3/uL 1.99-6.95 H (test code = 0836770863) IMM GRAN x10^3 (test 0.07 10*3/uL 0.00-0.06 H code = 8205216516) LYMPH x10^3 (test code 2.10 10*3/uL 1.09-3.23 = 731-0) MONO x10^3 (test code 0.52 10*3/uL 0.36-1.02 = 742-7) EOS x10^3 (test code = 0.27 10*3/uL 0.06-0.53 711-2) BASO x10^3 (test code 0.09 10*3/uL 0.01-0.09 = 704-7) Lab Interpretation Abnormal (test code = 84032-1) [facility] WITH [id number] 18:16:23 Test Item Value Reference Range Interpretation [...] RDW-SD (test code = 44.5 fL 38.5-51.6 53910-1) RDW-CV (test code = 13.2 % 12.1-15.4 788-0) PLT (test code = See_Comment H [Automated 777-3) message] The sy stem which generated this result transmitted reference range : 150 - 328 10*3/ ?L. The reference r jalen was not used to interpret this result as normal/abnormal . MPV (test code = 9.0 fL 9.8-13.0 L 68669-3) NRBC/100 WBC (test See_Comment [Automat ed code = 4756532609) message] The system which generated this result transmitted reference range : 0.0 - 10.0 /100 WBCs. The refer ence range was not u sed to interpret th is result as normal/abnormal . NRBC x10^3 (test code <0.01 See_Comment [Auto mated = 3130910606) message] The s ystem which generated this result transmitted reference range : 10*3/?L. The reference range was not used to interpret this result as normal/abnormal . GRAN MAT (NEUT) % 72.0 % (test code = 770-8) IMM GRAN % (test code 0.60 % = 4840063954) LYMPH % (test code = 19.3 % 736-9) MONO % (test code = 4.8 % 5905-5) EOS % (test code = 2.5 % 713-8) BASO % (test code = 0.8 % 706-2) GRAN MAT x10^3(ANC) 7.83 10*3/uL 1.99-6.95 H (test code = 2355128636) IMM GRAN x10^3 (test 0.07 10*3/uL 0.00-0.06 H code = 3117218644) LYMPH x10^3 (test code 2.10 10*3/uL 1.09-3.23 = 731-0) MONO x10^3 (test code 0.52 10*3/uL 0.36-1.02 = 742-7) EOS x10^3 (test code = 0.27 10*3/uL 0.06-0.53 711-2) BASO x10^3 (test code 0.09 10*3/uL 0.01-0.09 = 704-7) Lab Interpretation Abnormal (test code = 21123-3) [facility]; SPECIAL COAGULATION [id number] 02:27:27Related Clinical HistoryChesOrtiz is 65YO male with type 2 diabetes, hypertension, and hyperlipidemia presenting for follow-up after stroke on 02/03. Approximately one month prior to stroke, patient went to ER for left sided numbness and plavix 75mg was added to patient's antiplatelet therapy of aspirin 81mg, after which patient left AMA before stroke work-up. 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 ? BMI: 25.31 Medications: Clopidogrel 75mg, aspirin dipyridamole 25-200mg Family History: No known family history of coagulation disorder [facility] LABORATORY SERVICESPertinent Lab Results ? Ref. Range [...] 384 ? VerifyNow P2Y12 ?<194 ? 171 [facility] LABORATORY SERVICESCoag DMT interpretation1) There is no [...] study. Diabetol Metab Syndr 7, 8 (2015). [email or web address]://doi.org/[email or web address] ? Juan R Case, Kasey A, Juan R P, Janak C, Juan R S, Pepe M, Daniel K, Annabella Y, Russell J. Aspirin for primary prevention of cardiovascular events in patients with diabetes: A meta-analysis. Diabetes Res Clin Pract. 2010 May;87(2):211-8. doi: 10.1016/j.diabres.2009.09.029. Epub 2008Jan 31. PMID: 45224030. ? Meseret Hall., Frank, AMelonyA., Danielle WMelonyA. et al. Aspirin effect on the incidence of major adverse cardiovascular events in patients with diabetes mellitus: a systematic review and meta-analysis. Cardiovasc Diabetol 10, 25 (20 11). [email or web address]://doi.org/10.1186/[email or web address] ? Samy WILKERSON, Kimberly BRADLEY. Coagulation and fibrinolysis in diabetes. Diab Vasc Dis Res. 2010 Jan;7(4):260- 73. doi: 10.1177/0625516337623397. Epub 2009Dec 25. PMID: 34037748.[facility] LABORATORY SERVICESRecommendations1) No further coagulation testing is recommend ed at this time. ? 2) Independent of the normal test results this patient has an extremely positive history of thrombosis. Therefore, life-long anticoagulant therapy is consistent with guidelines. ?[facility] LABORATORY SERVICESUnHCA [facility] Healthcare MainlandMisc. Sendout- LUPUS ANTICOAGULANT REFLEXIVE PANEL KSUP [id number] 17:38:08 Test Item Value Reference Range Interpretation Comments Miscellaneous Test (test See scanned report code = 0583259396) Performing Lab (test code ARUP = 4077103367) [facility] [id number] 21:10:01FOLATE RBCComment: Unable to calculate RBC-Folate due to high Folate concentration.[facility] LABORATORY SERVICESUnHCA Houston Healthcare MainlandVITAMIN B1 (THIAMINE), WHOLE BLOOD 2021-03-07 15:44:45 Test Item Value Reference Range Interpretation Comments Vitamin B1, Whole 147 nmol/L 70-180 INTERPRETI VE INFORMATION: Blood (test code = Vitamin B 1, Whole Blood 28424-7) This assay zara ures the concentration o f thiamine diphosphate (TD P), the primary active form of vitamin B1. Dontrell roximately 90 percent of v itamin B1 present in whol e blood is TDP. Thiamine a nd thiamine monoph osphate, which comprise the remaining 10 pe rcent, are not measured. T his test was developed a nd its performance characteristics determined by [facility]. I t has not been cleared or approved by the US Food and Drug Administration. This test was performed i n a CLIA certified labor atory and is intended for clinical purposes.Perfor med By: [facility] [place] [address] [id number] aboratory Director: Elena Mansfield MD [facility] HospitalANTICARDIOLIPIN [id number] 17:52:49 Test Item Value Reference Interpretation Comments Range Anticardiolipin See_Comment [Automated Antibody IgG (test message] The code = 0836717758) system [facility] generated this result transmitted reference range: 0.0 - 10.0 GPL. The reference range was not used to interpret this result as normal/abnormal . Anticardiolipin See_Comment [Automated Antibody IgM (test message] The code = 2191749785) system [facility] generated this result transmitted reference range: 0.0 - 10.0 MPL. The reference range was not used to interpret this result as normal/abnormal . Anticardiolipin See_Comment [Automated Antibody IgA (test message] The code = 2939871858) system [facility] generated this result transmitted reference range: 0.0 [...] 2210-4 Lab Interpretation Normal (test code = 87098-7) [facility] HospitalANTI-B2 GLYCOPROTEIN I [id number] 17:52:49 Test Item Value Reference Interpretation Comments Range Anti-B2 See_Comment [Automated Glycoprotein 1 IgG message] The (test code = system which 1441781345) generated this result transmitted reference range : 0.0 - 20.0 SGU. The reference range was not used to interpret this result as normal/abnormal . Anti-B2 See_Comment [Automated Glycoprotein 1 IgM message] The (test code = system which 8963605465) generated this result transmitted reference range : 0.0 - 20.0 SMU. The reference range was not used to interpret this result as normal/abnormal . Anti-B2 See_Comment [Automated Glycoprotein 1 IgA message] The (test code = system which 6482785669) generated this result transmitted reference range : [...] losses and/or thrombocytopenia. TEST PERFORMED AT:[facility]. [id number] [facility], [address] [place] [address] [facility] [place] [address] Lab Interpretation Normal (test code = 99777-4) [facility] HospitalRPR (QUANTITATIVE)2021-03-04 23:01:53 Test Item Value Reference Range Interpretation Comments RPR (Quantitative) (test code = Nonreactive Nonreactive 42869-5) Lab Interpretation (test code = Normal 90680-6) [facility] HospitalANTITHROMBIN [id number] 17:54:51 Test Item Value Reference Range Interpretation Comments ANTITHROMBIN ACTIVITY (test code = 117 % 83-128 4985882849) Lab Interpretation (test code = Normal 10702-1) [facility] HospitalFREE PROTEIN [id number] 17:54:46 Test Item Value Reference Range Interpretation Comments FREE PROTEIN S (test code 90 % 55-146 = 4881533775) POP (test code = POP) Age and hormonal status may affect the normal range for females (particularly during ). Lab Interpretation (test Normal code = 74198-6) [facility] HospitalPROTEIN C [id number] 17:54:36 Test Item Value Reference Range Interpretation Comments PROTEIN C ACTIVITY (test 133 % 70-140 code = 5531865639) POP (test code = POP) Test should not be ordered in patients on Coumadin as it can decrease Protein C and S levels. Protein C activity is low in neonates and infants and increases to adult levels during adolescence. Additional studies should be conducted to determine the source of unexpected abnormal results. Lab Interpretation (test Normal code = 61322-6) [facility] HospitalFIBRINOGEN2021-11-24 17:51:45 Test Item Value Reference Range Interpretation Comments Fibrinogen (test code = 4163793552) 504 mg/dL 167-453 H Lab Interpretation (test code = Abnormal 41877-8) [facility] HospitalFACTOR 5 [id number] 15:51:49 Test Item Value Reference Range Interpretation Comments FACTOR 5 LEIDEN Normal Normal (test code = 2628283913) POP (test code = Phenotype Characteristics: POP) [...] the Factor 5 Leiden mutation is c.1601G>A (p.Hij220Icw). Methodology: Polymerase chain reaction and fluorescence monitoring. Limitations: Rare Factor V mutations (J3262F, M5179F, and A1563H) and any additional SNPs in the probe binding region may interfere with the target detection and yield an INVALID result. The performance of this assay has not been evaluated with samples from pediatric patients. Counseling and informed consent are recommended for genetic testing. References: OMIM: 369317 https://ghr.nlm.nih.gov/co ndition/vedzdv-u-dlzani-th rombophilia [facility] HospitalFACTOR 2 R59411I [id number] 15:51:49 Test Item Value Reference Range Interpretation Comments Factor 2 [id number] Normal Normal Mutation (test code = 8727981606) POP (test code = Phenotype POP) Characteristics: [...] further increased for homozygotes. 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 Clinical Sensitivity for Venous Thrombosis: Approximately 10%. Methodology: Polymerase chain reaction and fluorescence monitoring Limitations: The performance of this assay has not been evaluated with samples from pediatric patients. Counseling and informed consent are recommended for genetic testing. References: OMIM: 226939 https://ghr.nlm.nih.gov/c ondition/prothrombin-thro mbophilia [facility] HospitalVITAMIN B12, [id number] 21:15:03 Test Item Value Reference Range Interpretation Comments VIT B12 (test code = >1000 240-930 H 7386616733) POP (test code = POP) Biotin has been reported to cause a positive bias, interpret results relative to patient's use of biotin. Lab Interpretation (test Abnormal code = 20123-1) [facility] HospitalFOLATE2021-11-23 19:23:39 Test Item Value Reference Range Interpretation Comments FOLATE SER (test code = 8027014684) >20.0 3.0-20.0 H Lab Interpretation (test code = Abnormal 40619-5) [facility] HospitalHEMATOCRIT2021-11-23 17:33:40 Test Item Value Reference Range Interpretation Comments HCT (test code = 4544-3) 40.1 % 38.4-49.3 Lab Interpretation (test code = Normal 51110-0) [facility] HospitalURIC [id number] 14:46:27 Test Item Value Reference Range Interpretation Comments URIC ACID (test code = 0089919954) 5.0 mg/dL 3.6-8.0 Lab Interpretation (test code = Normal 87989-0) [facility] HospitalOSMOLALITY, SERUM OR [id number] 01:04:26 Test Item Value Reference Range Interpretation Comments OSMOLALITY (test code = See_Comment L [Au tomated message] 0684944886) The system [employer] generated this result transmitted ref erence range: 278 - 30 5 mOsm/kg. The reference range was not used to int erpret this result as normal/abnormal . Lab Interpretation (test Abnormal code = 19328-4) [facility] HospitalBMP2021-09-29 13:37:00 Test Item Value Reference Range [...] mg/dl 8.4-10.2 = CALC) EGFR if >60 Lebanese (test code mL/min/1.73m\\ = EGFRAA) S\\2 EGFR if Non- 59 Estimate d Glomerular Lebanese (test code mL/min/1.73m\\ Filtrat ion Rate (eGFR) [...] c hronic kidney failure. CBC WITH AUTO [id number] 13:36:00 Test Item Value Reference Range Interpretation [...] 0.4 % 0.0-0.4 IG%) MRI BRAIN W/O [id number] 12:07:29 [facility]Name: JOE DURAN : 1955 Sex: MMRI of [...] 112:02 PMDictated By: SYLVESTER LIMDate: 01/07/2021 12:02CORONARY [id number] 12:53:00 Test Item Value Reference Range Interpretation [...] code = 28 mg/dl 20-50 VLDL) GLYCOSALATED [id number] 12:52:00 Test Item Value Reference Range Interpretation [...] THE MEAN GLUCOS E IS NOT RELIABLE. [id number] 12:43:00 Test Item Value Reference Range Interpretation [...] 4 - SerumAlbu min)] EGFR if >60 Lebanese (test code mL/min/1.73m\\ = EGFRAA) S\\2 EGFR if Non- 55 Estimate d Glomerular Lebanese (test code mL/min/1.73m\\ Filtrat ion Rate (eGFR) [...] management of c hronic kidney failure. URIC [id number] 12:40:00 Test Item Value Reference Range Interpretation Comments Uric Acid (test code = URICA) 5.0 mg/dl 2.4-7.2 CORONARY [id number] 13:13:00 Test Item Value Reference Range Interpretation [...] (test code = 21 mg/dl 20-50 VLDL) [id number] 12:02:00 Test Item Value Reference Range Interpretation [...] 4 - SerumAlbu min)] EGFR if >60 Lebanese (test code mL/min/1.73m\\ = EGFRAA) S\\2 EGFR if Non- 59 Estimate d Glomerular Lebanese (test code mL/min/1.73m\\ Filtrat ion Rate (eGFR) [...] c hronic kidney failure. CBC WITH AUTO [id number] 11:22:00 Test Item Value Reference Range Interpretation [...]
[2021-07-13 11:18] LABS: Absolute Lymphocytes (CBC) 1.5 K/uL (0.7-4.9); Hematocrit 28.4 % (39.6-49.0); Lymphocytes % 8.3 % (15.3-44.8); MPV 7.2 fL (7.6-11.3); Protime INR 1.16; RBC Red Blood Cell Count 3.13 M/uL (4.33-5.43)
[2021-07-13] MEDS ORDERED: NA CHLORIDE 0.9% 250 ML ONE ×2 (11:18→23:08)
[2021-07-13] MEDS ORDERED: VANCOMYCIN 1 GM/VIAL ONE ×2 (11:18→23:08)
[2021-07-13] MEDS ORDERED: NA CHLORIDE 0.9% 1,000 ML ONE ×2 (11:18→11:51)
[2021-07-13 11:45] LABS: Urine Blood Negative (Negative); Urine Glucose Negative (Negative); Urine Protein Negative (Negative); Urine pH 7.5 (5.0-7.0)
--- NOTE | 2021-07-13 12:05 | RAD REPORT ---
EXAM DESCRIPTION: RAD - Chest Single View - 07/13/2021 11:55 am CLINICAL HISTORY: tachycardia Chest pain. COMPARISON: Chest Single View dated 06/25/2021; Chest Single View dated 05/22/2021; Chest Single View dated 05/20/2021; Abdomen 1 View (KUB) dated 05/13/2021 FINDINGS: Portable technique limits examination quality. The lungs are grossly clear. The heart is normal in size. No displaced fractures. IMPRESSION: No acute intrathoracic process suspected.
[2021-07-13 12:11] LABS: ALT/SGPT 45 U/L (12-78); AST/SGOT 24 U/L (15-37); Albumin 1.9 g/dL (3.4-5.0); Alkaline Phosphatase 100 U/L (45-117); BUN Blood Urea Nitrogen 28 mg/dL (7-18); Bicarbonate 28 mmol/L (21-32); Bilirubin Total 0.3 mg/dL (0.2-1.0); Glomerular Filtration Rate > 90 mL/min (=/>90); Glucose Level 169 mg/dL (74-106); Potassium 4.9 mmol/L (3.5-5.1); Sodium Level 137 mmol/L (136-145); Troponin High Sensitivity 4.2 pg/mL (<58.9)
[2021-07-13 12:12] LABS: Platelet Estimate INCR
[2021-07-13 12:13] LABS: Anisocytosis SLIGHT; Blood Morphology Comment NOTED (NOT SEEN)
[2021-07-13 12:15] LABS: Bilirubin Direct < 0.1 mg/dL (0-0.2)
[2021-07-13 12:32] LABS: Protein, Total 6.8 g/dL (6.4-8.2)
[2021-07-13 12:33] LABS: Calcium Oxalate Crystals- Ur FEW (NONE SEEN); Urine Amorphous Sediment 3+ /HPF (NONE SEEN); Urine Bacteria <20 /HPF (NONE SEEN); Urine RBC <5 /HPF (NONE SEEN)
[2021-07-13 13:02] LABS: SARS-COV-2 RT PCR NEGATIVE (NEGATIVE)
[2021-07-13] MEDS ORDERED: CEFEPIME 1 GM/VIAL ONE (13:19)
--- NOTE | 2021-07-13 13:42 | ER ---
[facility]'s [facility] Name[facility] Harsh Dalton Age: 65 yrs Sex: Male : 1955 Arrival Date: 07/13/2021 Time: 10:45 Bed 24 Private MD: Diagnosis: Decubitus Ulcer Presentation: 07/13 10:50 Chief complaint:. miles 11:18 Chief complaint: EMS states: wound infection. Coronavirus screen: Vaccine status: miles Patient reports receiving the 2nd dose of the covid vaccine. Ebola Screen: Patient denies travel to an Ebola-affected area in the 21 days before illness onset. Initial Sepsis Screen: Does the patient meet any 2 criteria? Altered Mental Status. HR > 90 bpm. Does the patient have a suspected source of infection? Yes: Skin breakdown/wound. Risk Assessment: Do you want to hurt yourself or someone else? Patient reports no desire to harm self or others. Onset of symptoms was July 13, 2021. 11:18 Method Of Arrival: EMS: [facility] miles 11:18 Acuity: ROHITH 2 miles Triage Assessment: 11:20 General: Appears in no apparent distress. Behavior is calm, quiet. Pain: Denies pain. miles Derm: Wound noted coccyx and left hip. Historical: - Allergies: 11:20 No Known Allergies; miles - Home Meds: 11:20 modafinil 100 mg oral tab [Active]; metformin 750 mg Oral Tb24 1 tab once daily miles [Active]; Jevity 1 Mendel oral liqd [Active]; carvedilol 25 mg oral tab 1 tab 2 times per day [Active]; amlodipine 10 mg tab 1 tab once daily [Active]; potassium chloride 15 mEq Oral TbTQ 1 tab once daily [Active]; tamsulosin 0.4 mg oral cap 1 cap once daily [Active]; polyethylene glycol 3350 17 gram oral pwpk 1 packet once daily [Active]; - PMHx: 11:20 Cerebrovascular accident; miles - PSHx: 11:20 Unable to Obtain; miles - Immunization history:: Adult Immunizations up to date. - Social history:: Smoking status: unknown. Screenin:27 Abuse screen: Denies threats or abuse. Denies injuries from another. Nutritional miles screening: No deficits noted. Tuberculosis screening: No symptoms or risk factors identified. Fall Risk Secondary diagnosis (15 points) CVA, IV access (20 points). Mental Status-. Assessment: 11:27 General: Appears in no apparent distress. Behavior is calm, quiet. Pain: Denies pain. miles 12:08 Derm: Skin is moist, Skin is red, Wound noted coccyx and left hip. miles 19:16 General: Appears in no apparent distress. Behavior is cooperative. Neuro: Level of sm5 Consciousness is awake, alert. Cardiovascular: Capillary refill < 3 seconds Patient's skin is warm and dry. Derm: Wound noted buttocks and L hip. Vital Signs: 11:00 BP 105 / 79; Pulse 116; Resp 22; Pulse Ox 100% on 2 lpm NC; miles 11:17 Weight 63.5 kg; ww 13:00 BP 105 / 79; Pulse 121; Resp 20; Pulse Ox 96% on 2 lpm NC; miles 14:00 BP 110 / 81; Pulse 115; Resp 20; Pulse Ox 100% on 2 lpm NC; miles 15:30 BP 100 / 80; Pulse 116; Resp 20; Pulse Ox 100% on 2 lpm NC; miles 17:00 BP 127 / 70; Pulse 119; Resp 16; Pulse Ox 100% on 2 lpm NC; miles 19:14 BP 105 / 67; Pulse 127; Resp 24; Temp 99.9(R); Pulse Ox 100% on 2 lpm NC; sm5 ED Course: 10:45 Patient arrived in ED. ds1 10:47 Edwardo Cotton PA is PHCP. cp 10:47 Lux Siddiqi MD is Attending Physician. cp 10:50 Sowmya Hayward RN is Primary Nurse. miles 11:19 Triage completed. miles 11:20 Arm band placed on. miles 11:27 Patient has correct armband on for positive identification. Bed in low position. Side imles rails up X 1. 11:27 No provider procedures requiring assistance completed. Maintain EMS IV. Dressing miles intact. Gauge \T\ site: 20g lac. 11:46 Urine Microscopic Only Sent. miles 11:46 Wound Culture Sent. miles 11:47 Blood Culture Adult (2) Sent. miles 11:57 XRAY Chest (1 view) In Process Unspecified. EDMS 13:34 Nasim De Los Santos MD is Hospitalizing Provider. cp 13:50 Assisted with dressing. Repositioned patient. Cleaned of incontinence. mh5 19:19 Primary Nurse role handed off by Sowmya Hayward RN mw2 19:20 May Velazco, RN is Primary Nurse. [facility] Administered Medications: 12:01 Drug: NS 0.9% (30 ml/kg) 30 ml/kg Route: IV; Rate: bolus; Site: left antecubital; miles 15:49 Follow up: IV Status: Completed infusion miles 12:01 Drug: vancoMYCIN 1 grams Route: IVPB; Infused Over: 2 hrs; Site: left antecubital; miles 15:48 Follow up: IV Status: Completed infusion miles 13:19 Drug: Cefepime 1 grams Route: IVPB; Rate: 200 ml/hr; Infused Over: 30 mins; Site: left miles antecubital; 15:48 Follow up: IV Status: Completed infusion miles Outcome: 13:41 Decision to Hospitalize by Provider. guera 07/14 08:50 Patient left the ED. vg1 Signatures: Dispatcher [employer] EDMS Carmela Miranda ds1 Edwardo Cotton PA PA cp Martinez, [facility] Abran Holley 2 Lisa Regan RN RN [facility] May Velazco RN RN Bibi Dorman RN RN Sowmya Hayward, GILMER miles Corrections: (The following items were deleted from the chart) 07/13 12:13 12:08 Derm: Wound noted miles miles
--- NOTE | 2021-07-13 13:42 | EDPHYS ---
Physician Documentation [facility] Name: Harsh Dalton Age: 65 yrs Sex: Male : 1955 Arrival Date: 07/13/2021 Time: 10:45 Bed 24 Private MD: ED Physician Lux Siddiqi Historical: - Allergies: 07/13 11:20 No Known Allergies; miles - Home Meds: 11:20 modafinil 100 mg oral tab [Active]; metformin 750 mg Oral Tb24 1 tab once daily miles [Active]; Jevity 1 Mendel oral liqd [Active]; carvedilol 25 mg oral tab 1 tab 2 times per day [Active]; amlodipine 10 mg tab 1 tab once daily [Active]; potassium chloride 15 mEq Oral TbTQ 1 tab once daily [Active]; tamsulosin 0.4 mg oral cap 1 cap once daily [Active]; polyethylene glycol 3350 17 gram oral pwpk 1 packet once daily [Active]; - PMHx: 11:20 Cerebrovascular accident; miles - PSHx: 11:20 Unable to Obtain; miles - Immunization history:: Adult Immunizations up to date. - Social history:: Smoking status: unknown. Vital Signs: 11:00 BP 105 / 79; Pulse 116; Resp 22; Pulse Ox 100% on 2 lpm NC; miles 11:17 Weight 63.5 kg; ww 13:00 BP 105 / 79; Pulse 121; Resp 20; Pulse Ox 96% on 2 lpm NC; miles 14:00 BP 110 / 81; Pulse 115; Resp 20; Pulse Ox 100% on 2 lpm NC; miles 15:30 BP 100 / 80; Pulse 116; Resp 20; Pulse Ox 100% on 2 lpm NC; miles 17:00 BP 127 / 70; Pulse 119; Resp 16; Pulse Ox 100% on 2 lpm NC; miles 19:14 BP 105 / 67; Pulse 127; Resp 24; Temp 99.9(R); Pulse Ox 100% on 2 lpm NC; sm5 MDM: 10:54 Patient medically screened. cp 07/13 10:59 Order name: Basic Metabolic Panel; Complete Time: 13:08 cp 07/13 13:08 Interpretation: Normal except: GLUC 169; BUN 28. cp 07/13 10:59 Order name: CBC with Diff; Complete Time: 12:14 cp 07/13 12:14 Interpretation: Normal except: WBC 18.4; RBC 3.13; HGB 9.3; HCT 28.4; PLT 584; RDW cp 16.6; MPV 7.2; TAYLOR% 83.5; LYM% 8.3; NEUT A 15.3. 07/13 10:59 Order name: LFT's; Complete Time: 13:08 cp 07/13 13:09 Interpretation: ALB 1.9; GLOB 4.9; A/G 0.4. cp 07/13 10:59 Order name: Magnesium; Complete Time: 13:08 cp 07/13 10:59 Order name: PT-INR; Complete Time: 12:14 cp 07/13 10:59 Order name: Troponin HS; Complete Time: 13:08 cp 07/13 10:59 Order name: COVID-19/FLU A+B (Document "Date of Onset" if Symptomatic); Complete Time: cp 13:08 07/13 10:59 Order name: Blood Culture Adult (2) cp 07/13 10:59 Order name: Procalcitonin; Complete Time: 12:14 cp 07/13 10:59 Order name: Lactate; Complete Time: 12:14 cp 07/13 10:59 Order name: Wound Culture cp 07/13 10:59 Order name: Urine Microscopic Only; Complete Time: 13:08 cp 07/13 13:08 Interpretation: UWBC 10-20; SQEPI 5-10; AMORPH 3+. cp 07/13 11:22 Order name: Manual Differential; Complete Time: 12:14 EDMS 07/13 11:46 Order name: Urine Dipstick-Ancillary; Complete Time: 12:14 EDMS 07/13 13:09 Interpretation: Normal except: UPH 7.5; UESTR 2+. cp 07/13 10:59 Order name: XRAY Chest (1 view); Complete Time: 12:14 cp 07/13 10:59 Order name: EKG; Complete Time: 11:00 cp 07/13 10:59 Order name: Cardiac monitoring; Complete Time: 11:46 cp 07/13 10:59 Order name: EKG - Nurse/Tech; Complete Time: 12:01 cp 07/13 10:59 Order name: IV Saline Lock; Complete Time: 11:18 cp 07/13 10:59 Order name: Labs collected and sent; Complete Time: 11:18 cp 07/13 10:59 Order name: O2 Per Protocol; Complete Time: 11:18 cp 07/13 10:59 Order name: O2 Sat Monitoring; Complete Time: 11:18 cp 07/13 12:37 Order name: Urine Culture EDMS 07/14 03:56 Order name: CBC with Automated Diff EDMS 07/14 04:12 Order name: Comprehensive Metabolic Panel EDMS 07/14 04:29 Order name: Procalcitonin EDMS 07/14 07:19 Order name: Gram Stain--Aerobic Bottle EDMS 07/13 10:59 Order name: Urine Dipstick-Ancillary (obtain specimen); Complete Time: 11:46 cp Administered Medications: 12:01 Drug: NS 0.9% (30 ml/kg) 30 ml/kg Route: IV; Rate: bolus; Site: left antecubital; miles 15:49 Follow up: IV Status: Completed infusion miles 12:01 Drug: vancoMYCIN 1 grams Route: IVPB; Infused Over: 2 hrs; Site: left antecubital; miles 15:48 Follow up: IV Status: Completed infusion miles 13:19 Drug: Cefepime 1 grams Route: IVPB; Rate: 200 ml/hr; Infused Over: 30 mins; Site: left miles antecubital; 15:48 Follow up: IV Status: Completed infusion miles Disposition Summary: 07/13/21 13:41 Hospitalization Ordered Hospitalization Status: Inpatient Admission cp Provider: Nasim De Los Santos cp Condition: Stable cp Problem: an ongoing problem cp Symptoms: have improved cp Bed/Room Type: Standard cp Location: Telemetry/MedSurg (Inpatient)(07/14/21 07:48) bd Room Assignment: [facility](07/14/21 07:48) bd Diagnosis - Decubitus Ulcer cp Forms: - Medication Reconciliation Form cp - SBAR form cp Signatures: Dispatcher [employer] EDMyrna Remy Corey, PA PA cp Garcia, Cindy RN GILMER Sowmya Hayward RN RN ha Corrections: (The following items were deleted from the chart) 20:33 13:41 Telemetry/MedSurg (Inpatient) cp cg 20:33 13:41 cp cg 07/14 07:48 04/04 20:33 [facility] ER HOLD cg bd 07/14 07:48 07/13 20:33 ERHOLD- cg bd
[2021-07-13] MEDS ORDERED: ONDANSETRON 4 MG/2 ML VIAL IV PRN (22:51)
[2021-07-13] MEDS ORDERED: VANCOMYCIN 1 GM in NA CHLORIDE 0.9% 250 ML IVPB SCH (22:51)
[2021-07-13] MEDS ORDERED: ACETAMINOPHEN 500 MG TAB PO PRN (22:51)
[2021-07-13] MEDS ORDERED: VANCOMYCIN 1.25 GM in NA CHLORIDE 0.9% 250 ML IVPB ONE (23:00)
--- NOTE | 2021-07-14 00:36 | P.HP ---
Certification for Inpatient Patient admitted to: Inpatient With expected LOS: >2 Midnights Patient will require the following post-hospital care: None Practitioner: I am a practitioner with admitting privileges, knowledge of patient current condition, hospital course, and medical plan of care. Services: Services provided to patient in accordance with Admission requirements found in Title 42 Section 412.3 of the Code of Federal Regulations <Disha Thomas - Last Filed: 07/14/21 00:41> Patient History Date of Service: 07/14/21 Reason for admission: Decubitus Ulcer History of Present Illness: Patient is a 65-year-old male with past medical history of chronic decubitus ulcer, Hypertension, BPH, hyperlipidemia and stroke with right-sided hemiparesis who presented to the ED for presumed wound infection. Patient is aphasic and oriented x1 and history is difficult to be obtained. He was tachycardic and tachypneic on presentation with a temperature of 99.9 rectally. Labs significant for WBC 18.4, pro-Mendel 0.09, urine positive for leukocyte esterase and white blood cells. Patient was recently discharged from hospital. Family has been contacted. Dr. Cooper is consulting. Will admit patient for further treatment of infection. - Past Medical/Surgical History Diabetic: Yes -: CVA -: HTN -: T2DM -: HLD -: FTT -: GERD -: BPH -: hemiplegia, dysphagia, weakness, aphasia -: Gastrostomy tube Psychosocial/ Personal History: Patient lives at an LTAC. 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 <Disha Thomas - Last Filed: 07/14/21 00:41> Date of Service: 07/14/21 <Nasim De Los Santos - Last Filed: 07/14/21 10:48> Allergies No Known Allergies Allergy (Unverified 05/11/21 09:07) Home Medications: Amlodipine [Norvasc*] 1 tab FT DAILY 05/17/21 Atorvastatin Calcium [Lipitor] 1 tab FT BEDTIME 05/17/21 Carvedilol [Coreg] 40 tab FT BID 05/17/21 Polyethylene Glycol 3350 [Miralax] 1 packet FT DAILY PRN 05/17/21 Potassium Chloride 15 ml FT BID 05/17/21 Tamsulosin HCl [Flomax] 1 cap FT BID 05/17/21 modafiniL [Provigil*] 1 tab FT DAILY 05/17/21 Lactose-Free Food [Jevity] 237 ml FT Q4H 06/25/21 Metformin ER [Glucophage ER] 500 mg FT DAILY 06/25/21 Review of Systems is unable to be obtained <Disha Thomas - Last Filed: 07/14/21 00:41> Physical Examination - Physical Exam General: Alert, In no apparent distress, Oriented x1 HEENT: Atraumatic, PERRLA, Mucous membr. moist/pink, EOMI, Sclerae nonicteric Neck: Supple, 2+ carotid pulse no bruit, No LAD, Without JVD or thyroid abnormality Respiratory: Clear to auscultation bilaterally, Normal air movement Cardiovascular: Regular rate/rhythm, Normal S1 S2 Gastrointestinal: Normal bowel sounds, No tenderness Musculoskeletal: No tenderness Integumentary: Pressure ulcer (decubitus), Other (PEG tube ) Neurological: Dementia - Studies Laboratory Data (last 24 hrs) 07/13/21 10:57: PT 12.8 H, INR 1.16 07/13/21 10:57: WBC 18.4 H D, Hgb 9.3 L, Hct 28.4 L, Plt Count 584 H D 07/13/21 10:57: Sodium 137, Potassium 4.9, BUN 28 H, Creatinine 0.63, Glucose 169 H, Magnesium 2.0, Total Bilirubin 0.3, AST 24, ALT 45, Alkaline Phosphatase 100 <Disha Thomas - Last Filed: 07/14/21 00:41> - Studies Laboratory Data (last 24 hrs) 07/13/21 10:57: PT 12.8 H, INR 1.16 07/13/21 10:57: WBC 18.4 H D, Hgb 9.3 L, Hct 28.4 L, Plt Count 584 H D 07/13/21 10:57: Sodium 137, Potassium 4.9, BUN 28 H, Creatinine 0.63, Glucose 169 H, Magnesium 2.0, Total Bilirubin 0.3, AST 24, ALT 45, Alkaline Phosphatase 100 Microbiology Data (last 24 hrs): 07/13/21 11:20 Blood - Blood Blood Culture Gram Stain - Final 07/13/21 11:35 Blood - Blood Blood Culture Gram Stain - Final <Nasim De Los Santos - Last Filed: 07/14/21 10:48> Assessment and Plan - Problems (Diagnosis) (1) Sepsis Current Visit: Yes Status: Acute Qualifiers: Sepsis type: sepsis due to unspecified organism Sepsis acute organ dysfunction status: without acute organ dysfunction Qualified Code(s): A41.9 - Sepsis, unspecified organism (2) Sacral decubitus ulcer, stage III Current Visit: Yes Status: Chronic (3) Aphasia Current Visit: Yes Status: Chronic (4) UTI (urinary tract infection) Current Visit: Yes Status: Acute Qualifiers: Urinary tract infection type: acute cystitis Hematuria presence: without hematuria Qualified Code(s): N30.00 - Acute cystitis without hematuria (5) BPH (benign prostatic hyperplasia) Current Visit: Yes Status: Chronic Qualifiers: Lower urinary tract symptom presence: symptoms absent Qualified Code(s): N40.0 - Benign prostatic hyperplasia without lower urinary tract symptoms (6) GERD (gastroesophageal reflux disease) Current Visit: No Status: Chronic Qualifiers: Esophagitis presence: esophagitis presence not specified Qualified Code(s): K21.9 - Gastro-esophageal reflux disease without esophagitis (7) Gastrostomy tube dependent Current Visit: Yes Status: Chronic (8) HLD (hyperlipidemia) Current Visit: Yes Status: Chronic Qualifiers: Hyperlipidemia type: mixed hyperlipidemia Qualified Code(s): E78.2 - Mixed hyperlipidemia (9) HTN (hypertension) Current Visit: No Status: Chronic (10) T2DM (type 2 diabetes mellitus) Current Visit: Yes Status: Chronic Qualifiers: Diabetes mellitus superintendent terminal insulin use: without superintendent terminal use Diabetes mellitus complication status: with skin complications Diabetes mellitus complication detail: with other skin ulcer Qualified Code(s): E11.622 - Type 2 diabetes mellitus with other skin ulcer - Plan -We will start patient on IV antibioticscefepime and vancomycin -Patient has chronic decubitus ulcer. Dr. Cooper plans to debride wound -Family has been contacted but has not responded. Patient may need to be transferred. -Patient has been tachycardic and tachypneic. We will continue to monitor on telemetry. -Patient has PEG tube. Continue feeds -We will continue home medications DVT PPx: Lovenox Code: Full Discharge Plan: LTAC Plan to discharge in: Greater than 2 days - Advance Directives Does patient have a Living Will: No Does patient have a Durable POA for Healthcare: No - Code Status/Comfort Care Code Status Assessed: Yes (Full) Critical Care: No Time Spent Managing Pts Care (In Minutes): 70 <Disha Thomas - Last Filed: 07/14/21 00:41> - Problems (Diagnosis) (1) Sacral decubitus ulcer, stage III Current Visit: Yes Status: Acute (2) Broca's aphasia Current Visit: Yes Status: Acute (3) Gastrostomy tube dependent Current Visit: Yes Status: Chronic (4) HLD (hyperlipidemia) Current Visit: Yes Status: Chronic Qualifiers: Hyperlipidemia type: mixed hyperlipidemia Qualified Code(s): E78.2 - Mixed hyperlipidemia (5) T2DM (type 2 diabetes mellitus) Current Visit: Yes Status: Chronic Qualifiers: Diabetes mellitus superintendent terminal insulin use: without [facility] use Diabetes mellitus complication status: with skin complications Diabetes mellitus complication detail: with other skin ulcer Qualified Code(s): E11.622 - Type 2 diabetes mellitus with other skin ulcer (6) CVA (cerebral vascular accident) Current Visit: No Status: Chronic Qualifiers: (7) GERD (gastroesophageal reflux disease) Current Visit: No Status: Chronic Qualifiers: Esophagitis presence: esophagitis presence not specified Qualified Code(s): K21.9 - Gastro-esophageal reflux disease without esophagitis (8) HTN (hypertension) Current Visit: No Status: Chronic Qualifiers: <Nasim De Los Santos - Last Filed: 07/14/21 10:48> Date of Service: 07/14/21 Agree with plan of care as mentioned below <Nasim De Los Santos - Last Filed: 07/14/21 10:48>
[2021-07-14 03:55] LABS: Absolute Lymphocytes (CBC) 1.4 K/uL (0.7-4.9); Hematocrit 23.8 % (39.6-49.0); Lymphocytes % 9.4 % (15.3-44.8); MPV 6.9 fL (7.6-11.3); RBC Red Blood Cell Count 2.66 M/uL (4.33-5.43)
[2021-07-14 04:12] LABS: ALT/SGPT 34 U/L (12-78); AST/SGOT 20 U/L (15-37); Albumin 1.9 g/dL (3.4-5.0); Alkaline Phosphatase 96 U/L (45-117); BUN Blood Urea Nitrogen 27 mg/dL (7-18); Bicarbonate 23 mmol/L (21-32); Bilirubin Total 0.5 mg/dL (0.2-1.0); Glomerular Filtration Rate > 90 mL/min (=/>90); Glucose Level 118 mg/dL (74-106); Potassium 3.6 mmol/L (3.5-5.1); Protein, Total 6.4 g/dL (6.4-8.2); Sodium Level 140 mmol/L (136-145)
[2021-07-14 05:26] VITALS: BMI 20.7
--- NOTE | 2021-07-14 08:32 | EKG ---
Test Date: 2021-07-13 Test Time: 12:00:46 Edge Stainer: LIZ MEASUREMENT RESULTS: Intervals: Rate: 119 NC: 170 QRSD: 60 QT: 298 QTc: 419 [place]: P: 87 NC: 170 QRS: 5 T: 65 INTERPRETIVE STATEMENTS: Sinus tachycardia Otherwise normal ECG Compared to ECG 07/13/2021 12:00:19 No significant changes Electronically Signed On 07-14-21 08:28:10 CDT by Ru Brewer
--- NOTE | 2021-07-14 08:32 | EKG ---
Test Date: 2021-07-13 Test Time: 12:00:19 Production Machine Operator: LIZ MEASUREMENT RESULTS: Intervals: Rate: 120 NC: 166 QRSD: 58 QT: 284 QTc: 401 [place]: P: 67 NC: 166 QRS: 9 T: 69 INTERPRETIVE STATEMENTS: Sinus tachycardia Otherwise normal ECG Compared to ECG 06/25/2021 08:47:53 Left-axis deviation no longer present Myocardial infarct finding no longer present Electronically Signed On 07-14-21 08:28:11 CDT by Ru Brewer
[2021-07-14] MEDS ORDERED: CEFEPIME 1 GM in NA CHLORIDE 0.9% 100 ML IV SCH (09:00)
[2021-07-14] MEDS: ENOXAPARIN 40 MG/0.4 ML SQ SCH (09:59)
--- NOTE | 2021-07-14 10:40 | P.PN ---
Subjective Date of Service: 07/14/21 Patient scheduled for surgery today. Patient going to have debridement of the wound. Possible transfer back to the facility after debridement. Review of Systems 10-point ROS is otherwise unremarkable Physical Examination - Vital Signs Temperature: 97.5 F Blood Pressure: 122/63 Pulse: 114 Respirations: 17 Pulse Ox (%): 100 - Physical Exam General: Alert, In no apparent distress, Other (Aphasic and not really able to give much instructions) HEENT: Atraumatic, PERRLA, EOMI Neck: Supple, JVD not distended Respiratory: Clear to auscultation bilaterally, Normal air movement Cardiovascular: Regular rate/rhythm, Normal S1 S2 Gastrointestinal: Normal bowel sounds, No tenderness Musculoskeletal: No tenderness Integumentary: Skin breakdown, Tenderness/swelling, Erythema, Pressure ulcer Neurological: Normal gait, Cranial nerves 3-12 intact - Studies Laboratory Data (last 24 hrs) 07/13/21 10:57: PT 12.8 H, INR 1.16 07/13/21 10:57: WBC 18.4 H D, Hgb 9.3 L, Hct 28.4 L, Plt Count 584 H D 07/13/21 10:57: Sodium 137, Potassium 4.9, BUN 28 H, Creatinine 0.63, Glucose 169 H, Magnesium 2.0, Total Bilirubin 0.3, AST 24, ALT 45, Alkaline Phosphatase 100 Microbiology Data (last 24 hrs): 07/13/21 11:20 Blood - Blood Blood Culture Gram Stain - Final 07/13/21 11:35 Blood - Blood Blood Culture Gram Stain - Final Medications List Reviewed: Yes Assessment & Plan - Problems (Diagnosis) (1) Sacral decubitus ulcer, stage III Current Visit: Yes Status: Acute (2) Broca's aphasia Current Visit: Yes Status: Acute (3) Gastrostomy tube dependent Current Visit: Yes Status: Chronic (4) HLD (hyperlipidemia) Current Visit: Yes Status: Chronic Qualifiers: Hyperlipidemia type: mixed hyperlipidemia Qualified Code(s): E78.2 - Mixed hyperlipidemia (5) T2DM (type 2 diabetes mellitus) Current Visit: Yes Status: Chronic Qualifiers: Diabetes mellitus manager terminal insulin use: without manager terminal use Diabetes mellitus complication status: with skin complications Diabetes mellitus complication detail: with other skin ulcer Qualified Code(s): E11.622 - Type 2 diabetes mellitus with other skin ulcer (6) CVA (cerebral vascular accident) Current Visit: No Status: Chronic Qualifiers: (7) GERD (gastroesophageal reflux disease) Current Visit: No Status: Chronic Qualifiers: Esophagitis presence: esophagitis presence not specified Qualified Code(s): K21.9 - Gastro-esophageal reflux disease without esophagitis (8) HTN (hypertension) Current Visit: No Status: Chronic Qualifiers: - Plan PLAN: 1. Continue with IV antibiotic 2. Continue with local wound care 3. Wound care consultation/surgical consultation 4. Gentle IV hydration 5. Monitor CBC 6. Strict blood sugar monitoring 7. Pain control 8. GI and DVT prophylaxis Discharge Plan: Home Plan to discharge in: Greater than 2 days - Advance Directives Does patient have a Living Will: No Does patient have a Durable POA for Healthcare: No - Code Status/Comfort Care Code Status Assessed: Yes Code Status: Full Code Critical Care: No Time Spent Managing PTS Care (In Minutes): 35
[2021-07-14] MEDS ORDERED: POLYETHYL GLY 3350 17 GM/DOSE FT PRN (10:44)
[2021-07-14] MEDS: VANCOMYCIN 1.25 GM in NA CHLORIDE 0.9% 250 ML IVPB SCH ×2 (10:45→23:34)
[2021-07-14 11:52] LABS: Absolute Lymphocytes (CBC) 1.1 K/uL (0.7-4.9); Hematocrit 25.5 % (39.6-49.0); Lymphocytes % 8.6 % (15.3-44.8); MPV 6.9 fL (7.6-11.3); RBC Red Blood Cell Count 2.81 M/uL (4.33-5.43)
[2021-07-14] MEDS ORDERED: LACTOSE FREE FOOD FT SCH (13:00)
[2021-07-14] MEDS ORDERED: [UNRECOGNIZED DRUG - OTHER] FT SCH (13:00)
[2021-07-14] MEDS: JEVITY 1.2 CAL LIQUID 1,000 ML BOT FT SCH ×3 (17:09→23:30)
--- NOTE | 2021-07-14 18:18 | CON ---
Date of Consultation: 07/14/2021 Brief History Of Present Illness: The patient is a 65-year-old male with past medical history of chr onic venous ulcer, hypertension, BPH, hyperlipidemia, stroke with right-sided hemiparesis, who presen qing to the ER with a recurrent wound infection of the sacral area, which was previously debrided by keila yself in the past. He most recently had a left hip debridement for an infected chronic pressure ulce r and he has the stage IV sacral decubitus ulcer, which has been getting wound care going forward. T he patient is nonverbal and as such information was obtained from the chart and physical exam. Past Medical History: CVA, hypertension, type 2 diabetes, hyperlipidemia, GERD, BPH, hemiplegia, dys phagia, weakness, aphasia. Past Surgical History: Includes a gastrostomy tube placement, debridement of sacral ulcer, debrideme nt on the left hip ulcer and all pressure ulcer related. Social History: Smoking, alcohol, recreational drug use negative per chart. Allergies: NO KNOWN DRUG ALLERGIES. Home Medications: Include Norvasc, Lipitor, Coreg, MiraLAX, KCl, Flomax, Provigil, Jevity, and Gluco phage. Review of Systems: Unable to obtain. Physical Examination: General: At the time of my examination; he is awake, alert, nonverbal at baseline. HEENT: Otherwise normocephalic. Sclerae anicteric. Mucous membranes moist. Pharynx clear. Neck: Supple without JVD. Chest: Normal expansion and excursion. Cardiovascular: Regular rate and rhythm. Pulmonary: Clear to auscultation bilaterally. Abdomen: Soft, nontender. PEG tube in place. Extremities: Focused examination of his hip, left hip wound appears to be granulating slowly and jesenia ewhat dry. No evidence of infection. No hyperemia. No fibrinous buildup. Adipose tissue is eviden t, but granulation tissue appears to be initiating. Focused examination of his sacral wound, it is s oiled with stool both actively and chronically with discoloration consistent with soilage from stool. There is stool during my examination. This area was cleansed and I found that this area appears to have some necrosis and continues to have pressure effect in the area consistent with recurrent wound infection. Laboratory Data: Revealed a white blood count of 14.8, hemoglobin is 7.8, hematocrit 23.8, platelet count was 470. His coags showed a PT 12.8, INR 1.16. His chemistry showed a sodium of 140, potassiu m 3.6, chloride 110, carbon dioxide 23, BUN 27, creatinine 0.5, glucose is 118. His lactic acid is 1 .8 and procalcitonin 0.12. COVID was negative. He had a chest x-ray performed on 07/13/2021, offici ally read as no acute intrathoracic process suspected. Assessment And Plan: This is a 65-year-old male with swelling of his sacral decubitus ulcer. 1.IV fluid hydration. 2.Antibiotic coverage. 3.Local wound care. 4.I have spoken to the patient's medical power of sales assistant entertainment and media, Hanny, who makes medical decisions for him regarding the need for surgical debridement of his sacrum once again. After the debridement is c ompleted, I have discussed the possibility and recommendation of the patient to get a diverting colos luca to divert the fecal stream away from the wound. The patient's family has decided to have a fami ly conversation regarding the need for this and whether they would like to proceed with this, but she has asked that we proceed with debridement prior to this while they make a family decision which she states may take several days. As such, we will proceed with a debridement and continue local wound care, medical management per primary team. Thank you for this interesting consult. JENNIFER/CAROL Voice ID: [id number] Report ID: [id number]
[2021-07-14] MEDS ORDERED: POTASSIUM CHLORIDE 20 MEQ/15 ML FT SCH (21:00)
[2021-07-14] MEDS: carvediloL 12.5 MG TAB FT SCH (21:37)
[2021-07-14] MEDS: POTASSIUM 25 MEQ EFFERV TAB FT SCH (21:37)
[2021-07-14] MEDS: TAMSULOSIN 0.4 MG SR CAP FT SCH (21:38)
[2021-07-14] MEDS: CEFEPIME 2 GM in NA CHLORIDE 0.9% 100 ML IV SCH (21:38)
[2021-07-14] MEDS: ATORVASTATIN 40 MG TAB FT SCH (21:48)
[2021-07-14] MEDS ORDERED: VANCOMYCIN 500 MG/VIAL ONE (23:31)
[2021-07-15] MEDS: JEVITY 1.2 CAL LIQUID 1,000 ML BOT FT SCH ×4 (03:00→15:43)
[2021-07-15 04:06] LABS: Absolute Lymphocytes (CBC) 1.4 K/uL (0.7-4.9); Hematocrit 23.2 % (39.6-49.0); Lymphocytes % 12.7 % (15.3-44.8); RBC Red Blood Cell Count 2.57 M/uL (4.33-5.43)
[2021-07-15 04:25] LABS: ALT/SGPT 29 U/L (12-78); AST/SGOT 19 U/L (15-37); Albumin 1.9 g/dL (3.4-5.0); Alkaline Phosphatase 89 U/L (45-117); BUN Blood Urea Nitrogen 28 mg/dL (7-18); Bicarbonate 24 mmol/L (21-32); Bilirubin Total 0.4 mg/dL (0.2-1.0); Glomerular Filtration Rate > 90 mL/min (=/>90); Glucose Level 109 mg/dL (74-106); Potassium 3.5 mmol/L (3.5-5.1); Protein, Total 6.2 g/dL (6.4-8.2); Sodium Level 142 mmol/L (136-145)
[2021-07-15] MEDS ORDERED: BUPIVACAINE 0.25% PF 10 ML VIAL ONE (07:08)
[2021-07-15] MEDS: NA CHLORIDE 0.9% 1,000 ML ONE ×2 (07:08→07:10)
[2021-07-15] MEDS ORDERED: SODIUM HYPOCHLORITE 0.5% 473 ML ONE (07:09)
[2021-07-15] MEDS ORDERED: propofoL 200 MG/20 ML VIAL IV ONE (07:11)
[2021-07-15] MEDS ORDERED: FENTANYL CITR 100 MCG/2 ML ONE (07:12)
[2021-07-15] MEDS ORDERED: MIDAZOLAM HCL 2 MG/2 ML INJ ONE (07:12)
[2021-07-15] MEDS ORDERED: ROCURONIUM 50 MG/5 ML VIAL IV ONE (07:12)
[2021-07-15] MEDS ORDERED: LIDOCAINE 1% MPF 5 ML VIAL ONE (07:12)
[2021-07-15] MEDS ORDERED: NS 0.9% VIAL 10 ML ONE (07:53)
[2021-07-15] MEDS ORDERED: EPHEDRINE SULF 50 MG/ML VIAL ONE (07:53)
[2021-07-15] MEDS ORDERED: Phenylephrine HCl 10 MG/ML 1 ML VIAL ONE (07:56)
[2021-07-15] MEDS ORDERED: ONDANSETRON 4 MG/2 ML VIAL ONE (08:14)
--- NOTE | 2021-07-15 08:34 | P.OP ---
Preoperative diagnosis: Sacral pressure wound - decubitus stage III Postoperative diagnosis: Sacral pressure wound - decubitus stage III Primary procedure: Excisional Debridement of Sacral pressure wound - decubitus stage III Anesthesia: GETA Estimated blood loss: <5cc Specimen: debridement tissue Findings: inflammation, necrosis to periphery and base of Sacral pressure wound - dec Complications: None Transferred to: Recovery Room Condition: Good
[2021-07-15] MEDS ORDERED: SUCCINYLCHOLINE 20 MG/ML (10 ML) IV ONE (08:46)
[2021-07-15] MEDS: ENOXAPARIN 40 MG/0.4 ML SQ SCH (09:00)
[2021-07-15] MEDS: carvediloL 12.5 MG TAB FT SCH ×2 (09:00→17:04)
[2021-07-15] MEDS ORDERED: CODEINE 12mg/APAP 120mg PER 5 ML UCUP FT PRN (09:00)
[2021-07-15] MEDS: AMLODIPINE 10 MG TAB FT SCH (09:00)
[2021-07-15] MEDS: POTASSIUM 25 MEQ EFFERV TAB FT SCH ×2 (09:00→21:56)
[2021-07-15] MEDS: TAMSULOSIN 0.4 MG SR CAP FT SCH ×2 (09:00→21:57)
[2021-07-15] MEDS: modafiniL 100 MG TAB PO SCH (09:00)
[2021-07-15] MEDS: CEFEPIME 2 GM in NA CHLORIDE 0.9% 100 ML IV SCH ×2 (09:28→21:56)
[2021-07-15] MEDS: VANCOMYCIN 1.25 GM in NA CHLORIDE 0.9% 250 ML IVPB SCH (11:00)
[2021-07-15] MEDS: GLUCERNA 1.5 CAL 1,000 ML BOT FT SCH ×2 (17:12→21:00)
[2021-07-15] MEDS: ATORVASTATIN 40 MG TAB FT SCH (22:02)
[2021-07-15] MEDS ORDERED: NA CHLORIDE 0.9% IV ONE (23:00)
[2021-07-15] MEDS ORDERED: SODIUM CHL 0.9% 1000 ML BAG IV ONE (23:30)
--- NOTE | 2021-07-16 01:53 | P.PN ---
Date of Service: 07/15/21 Subjective Patient completing wound debridement. Currently doing better. Possibly discharging after wound debridement. Review of Systems 10-point ROS is otherwise unremarkable Physical Examination - Vital Signs Reviewed - Physical Exam General: Alert, In no apparent distress, Other (Aphasic and not really able to give much instructions) Respiratory: Clear to auscultation bilaterally, Normal air movement Cardiovascular: Regular rate/rhythm, Normal S1 S2 Gastrointestinal: Normal bowel sounds, No tenderness Musculoskeletal: No tenderness Integumentary: Skin breakdown, Tenderness/swelling, Erythema, Pressure ulcer Neurological: Normal gait, Cranial nerves 3-12 intact Assessment & Plan - Problems (Diagnosis) (1) Sacral decubitus ulcer, stage III Current Visit: Yes Status: Acute (2) Broca's aphasia Current Visit: Yes Status: Acute (3) Gastrostomy tube dependent Current Visit: Yes Status: Chronic (4) HLD (hyperlipidemia) Current Visit: Yes Status: Chronic Qualifiers: Hyperlipidemia type: mixed hyperlipidemia Qualified Code(s): E78.2 - Mixed hyperlipidemia (5) T2DM (type 2 diabetes mellitus) Current Visit: Yes Status: Chronic Qualifiers: Diabetes mellitus jail insulin use: without jail use Diabetes mellitus complication status: with skin complications Diabetes mellitus complication detail: with other skin ulcer Qualified Code(s): E11.622 - Type 2 diabetes mellitus with other skin ulcer (6) CVA (cerebral vascular accident) Current Visit: No Status: Chronic Qualifiers: (7) GERD (gastroesophageal reflux disease) Current Visit: No Status: Chronic Qualifiers: Esophagitis presence: esophagitis presence not specified Qualified Code(s): K21.9 - Gastro-esophageal reflux disease without esophagitis (8) HTN (hypertension) Current Visit: No Status: Chronic Qualifiers: - Plan Continue with plan of care as mentioned below: 1. Continue with IV antibiotic 2. Continue with local wound care 3. Wound care consultation/surgical consultation 4. Gentle IV hydration 5. Monitor CBC 6. Strict blood sugar monitoring 7. Pain control 8. GI and DVT prophylaxis Discharge Plan: Home Plan to discharge in: Greater than 2 days - Advance Directives Does patient have a Living Will: No Does patient have a Durable POA for Healthcare: No - Code Status/Comfort Care Code Status Assessed: Yes Code Status: Full Code Critical Care: No Time Spent Managing PTS Care (In Minutes): 35
[2021-07-16] MEDS ORDERED: HYDROCORTISONE SUC 100 MG INJ IV ONE (02:30)
--- NOTE | 2021-07-16 02:33 | P.PN ---
Date of Service: 07/16/21 Subjective Patient status post wound debridement. No new changes. However, patient's hemoglobin has decreased. We will monitor for GI bleeding. H&H is pending. Review of Systems 10-point ROS is otherwise unremarkable Physical Examination - Vital Signs Reviewed - Physical Exam General: Patient is a little more lethargic. Normally he is able to interact although he is aphasic. Respiratory: Clear to auscultation bilaterally, Normal air movement Cardiovascular: Regular rate/rhythm, Normal S1 S2 Gastrointestinal: Normal bowel sounds, No tenderness Musculoskeletal: No tenderness Integumentary: Skin breakdown, Tenderness/swelling, Erythema, Pressure ulcer Neurological: Normal gait, Cranial nerves 3-12 intact Assessment & Plan - Problems (Diagnosis) (1) Sacral decubitus ulcer, stage III Current Visit: Yes Status: Acute (2) Broca's aphasia Current Visit: Yes Status: Acute (3) Gastrostomy tube dependent Current Visit: Yes Status: Chronic (4) HLD (hyperlipidemia) Current Visit: Yes Status: Chronic Hyperlipidemia type: mixed hyperlipidemia Qualified Code(s): E78.2 - Mixed hyperlipidemia (5) T2DM (type 2 diabetes mellitus) Current Visit: Yes Status: Chronic Diabetes mellitus middle or intermediate school principal insulin use: without care home use Diabetes mellitus complication status: with skin complications Diabetes mellitus complication detail: with other skin ulcer Qualified Code(s): E11.622 - Type 2 diabetes mellitus with other skin ulcer (6) CVA (cerebral vascular accident) Current Visit: No Status: Chronic (7) GERD (gastroesophageal reflux disease) Current Visit: No Status: Chronic Qualifiers: Esophagitis presence: esophagitis presence not specified Qualified Code(s): K21.9 - Gastro-esophageal reflux disease without esophagitis (8) HTN (hypertension) Current Visit: No Status: Chronic (9) Anemia, acute blood loss Current Visit: No Status: Acute - Plan Continue with plan of care as mentioned below: 1. Continue with IV antibiotic 2. Continue with local wound care 3. Wound care consultation/surgical consultation appreciated; status post debridement of necrotic sacral ulcer. 4. Hep-Lock IV 5. Transfuse 2 units of packed red blood cells 6. Strict blood sugar monitoring 7. Pain control 8. GI and DVT prophylaxis Discharge Plan: Home Plan to discharge in: Greater than 2 days - Advance Directives Does patient have a Living Will: No Does patient have a Durable POA for Healthcare: No - Code Status/Comfort Care Code Status Assessed: Yes Code Status: Full Code Critical Care: No Time Spent Managing PTS Care (In Minutes): 35
[2021-07-16 03:49] LABS: Absolute Lymphocytes (CBC) 1.9 K/uL (0.7-4.9); Lymphocytes % 14.1 % (15.3-44.8); MPV 7.2 fL (7.6-11.3)
[2021-07-16 04:33] LABS: Hematocrit 16.4 % (39.6-49.0)
[2021-07-16 04:59] LABS: ALT/SGPT 24 U/L (12-78); AST/SGOT 12 U/L (15-37); Albumin 1.6 g/dL (3.4-5.0); Alkaline Phosphatase 70 U/L (45-117); BUN Blood Urea Nitrogen 62 mg/dL (7-18); Bicarbonate 21 mmol/L (21-32); Bilirubin Total 0.2 mg/dL (0.2-1.0); Glomerular Filtration Rate > 90 mL/min (=/>90); Glucose Level 157 mg/dL (74-106); Potassium 4.1 mmol/L (3.5-5.1); Protein, Total 5.4 g/dL (6.4-8.2); Sodium Level 146 mmol/L (136-145)
[2021-07-16 05:23] LABS: Urine Appearance TURBID (Clear); Urine Bilirubin NEGATIVE (Negative); Urine Blood NEGATIVE (Negative); Urine Color YELLOW (Yellow); Urine Glucose NEGATIVE (Negative); Urine Protein NEGATIVE (Negative); Urine Urobilinogen 0.2 mg/dL (0.2-1.0); Urine pH 5.5 (5.0-7.0)
[2021-07-16 05:27] LABS: Urine Microscopic Reflex ORDER UMIC
[2021-07-16 05:34] LABS: Urine Yeast MANY (NONE SEEN); Urine Yeast with Hyphae PRESENT
[2021-07-16 05:35] LABS: Calcium Oxalate Crystals- Ur FEW (NONE SEEN); Urine Bacteria 20-50 /HPF (NONE SEEN); Urine RBC NONE SEEN /HPF (NONE SEEN)
[2021-07-16] MEDS: VANCOMYCIN 1.25 GM in NA CHLORIDE 0.9% 250 ML IVPB SCH (05:54)
[2021-07-16] MEDS: CEFEPIME 2 GM in NA CHLORIDE 0.9% 100 ML IV SCH ×2 (08:52→20:43)
[2021-07-16] MEDS: POTASSIUM 25 MEQ EFFERV TAB FT SCH ×2 (08:52→20:44)
[2021-07-16] MEDS: modafiniL 100 MG TAB PO SCH (08:52)
[2021-07-16] MEDS: TAMSULOSIN 0.4 MG SR CAP FT SCH ×2 (08:53→20:44)
[2021-07-16] MEDS: ALBUMIN HUMAN 25% 100 ML IV SCH (08:54)
[2021-07-16] MEDS: carvediloL 12.5 MG TAB FT SCH ×2 (08:54→20:44)
[2021-07-16] MEDS: AMLODIPINE 10 MG TAB FT SCH (08:54)
[2021-07-16] MEDS: GLUCERNA 1.5 CAL 1,000 ML BOT FT SCH ×5 (08:55→20:44)
[2021-07-16] MEDS: ENOXAPARIN 40 MG/0.4 ML SQ SCH (09:00)
[2021-07-16] MEDS ORDERED: NA CHLORIDE 0.9% 250 ML ONE ×2 (10:43→17:01)
[2021-07-16 15:59] LABS: MPV 7.3 fL (7.6-11.3); RBC Red Blood Cell Count 1.98 M/uL (4.33-5.43)
[2021-07-16 16:29] LABS: ALT/SGPT 25 U/L (12-78); AST/SGOT 20 U/L (15-37); Albumin 1.8 g/dL (3.4-5.0); Alkaline Phosphatase 78 U/L (45-117); BUN Blood Urea Nitrogen 50 mg/dL (7-18); Bicarbonate 24 mmol/L (21-32); Bilirubin Total 0.3 mg/dL (0.2-1.0); Glomerular Filtration Rate > 90 mL/min (=/>90); Glucose Level 122 mg/dL (74-106); Potassium 3.7 mmol/L (3.5-5.1); Protein, Total 5.7 g/dL (6.4-8.2); Sodium Level 148 mmol/L (136-145)
[2021-07-16 17:49] LABS: Protime INR 1.2
[2021-07-16] MEDS: ATORVASTATIN 40 MG TAB FT SCH (20:43)
[2021-07-16] MEDS ORDERED: NA CHLORIDE 0.9% 100 ML ONE (22:08)
--- NOTE | 2021-07-16 22:18 | RAD REPORT ---
EXAM DESCRIPTION: CT - Chest Abd Pelvis Wo Con - 07/16/2021 9:28 pm CLINICAL HISTORY: low Hg COMPARISON: Abdomen Pelvis W Contrast dated 06/25/2021 TECHNIQUE: Axial 5 millimeter thick images of the chest, abdomen and pelvis were obtained without IV contrast. Oral contrast was administered. All CT scans are performed using dose optimization technique as appropriate and may include automated exposure control or mA/KV adjustment according to patient size. FINDINGS: No suspicious lung parenchymal process seen. Small granuloma seen in the right lung field. Small right pleural effusion is present with trace left-sided pleural fluid. No pneumothorax. No lloyd st wall mass or abnormal axillary lymphadenopathy seen. Mediastinal and hilar regions show no mass o r lymphadenopathy. No cardiomegaly or pericardial effusion. The liver, spleen and pancreas show no significant findings for non contrast imaging. Gallbladder an d biliary tree are normal. No hydronephrosis or suspicious renal mass. Isodense masses and pyelonephritis cannot be excluded on non contrast imaging. No adrenal abnormalities. Urinary bladder is mostly contracted with a Fragoso ca theter in place. Bladder lauren appear thickened. This is probably artifact of contracted state rather than cystitis. Correlation can be made with any corresponding clinical symptoms or UA abnormalities. Small hiatal hernia is present. PEG tube is in place. No acute gastric finding identified. No acute s mall bowel finding. Diverticulosis is present. There is a large stool volume dilating the rectum to 8 cm. No free air, free fluid or inflammatory stranding. No mass or bulky lymphadenopathy. No hernia seen. Small amount of retained fluid seen in the subcutaneous fatty tissues of the pelvis. No significant bone or vascular finding. IMPRESSION: Small right-sided and trace left-sided pleural effusions with no acute lung parenchymal process. No acute or emergent CT abdomen or pelvis finding. There is a large amount of stool dilating the rect um to 8 cm. Prominent diverticulosis is present without diverticulitis. Urinary bladder lauren appear slightly thickened though this may be artifact of contracted state. Fole y catheter is in place. Cystitis is not likely unless there are supporting clinical or laboratory fin dings. CT abdomen and pelvis imaging shows no significant or suspicious finding.
[2021-07-17 05:55] LABS: Absolute Lymphocytes (CBC) 1.7 K/uL (0.7-4.9); Hematocrit 23.8 % (39.6-49.0); Lymphocytes % 14.7 % (15.3-44.8); MPV 7.2 fL (7.6-11.3); RBC Red Blood Cell Count 2.72 M/uL (4.33-5.43)
[2021-07-17] MEDS: VANCOMYCIN 1.25 GM in NA CHLORIDE 0.9% 250 ML IVPB SCH (06:00)
[2021-07-17 06:15] LABS: ALT/SGPT 28 U/L (12-78); AST/SGOT 24 U/L (15-37); Albumin 1.8 g/dL (3.4-5.0); Alkaline Phosphatase 73 U/L (45-117); BUN Blood Urea Nitrogen 35 mg/dL (7-18); Bicarbonate 25 mmol/L (21-32); Bilirubin Total 0.5 mg/dL (0.2-1.0); Glomerular Filtration Rate > 90 mL/min (=/>90); Glucose Level 101 mg/dL (74-106); Potassium 3.5 mmol/L (3.5-5.1); Protein, Total 5.7 g/dL (6.4-8.2); Sodium Level 147 mmol/L (136-145)
[2021-07-17] MEDS ORDERED: MINERAL OIL 30 ML UCUP PO ONE (07:25)
[2021-07-17] MEDS: GLUCERNA 1.5 CAL 1,000 ML BOT FT SCH ×5 (08:00→21:50)
[2021-07-17] MEDS: TAMSULOSIN 0.4 MG SR CAP FT SCH ×2 (09:00→21:50)
[2021-07-17] MEDS: ALBUMIN HUMAN 25% 100 ML IV SCH (09:00)
[2021-07-17] MEDS ORDERED: MINERAL OIL 30 ML UCUP PO SCH (09:00)
[2021-07-17] MEDS: COLLAGENASE 30 GM OINTMENT TOP SCH (09:00)
[2021-07-17] MEDS: AMLODIPINE 10 MG TAB FT SCH ×2 (09:00→09:20)
[2021-07-17] MEDS: modafiniL 100 MG TAB PO SCH (09:20)
[2021-07-17] MEDS: carvediloL 12.5 MG TAB FT SCH ×2 (09:20→21:49)
[2021-07-17] MEDS: CEFEPIME 2 GM in NA CHLORIDE 0.9% 100 ML IV SCH ×2 (09:21→21:45)
[2021-07-17] MEDS: POTASSIUM 25 MEQ EFFERV TAB FT SCH ×2 (09:21→21:48)
--- NOTE | 2021-07-17 13:01 | P.PN ---
Subjective Date of Service: 07/17/21 Chief Complaint: Decubitus Ulcer Subjective: Improving (had anemia, got transfused PRBC) Physical Examination - Vital Signs Temperature: 98 F Blood Pressure: 96/59 Pulse: 97 Respirations: 20 Pulse Ox (%): 96 - Physical Exam General: Confused Respiratory: Normal air movement Cardiovascular: Regular rate/rhythm Integumentary: Other (wounds all stable without infection, pressure effect remains ) - Studies Microbiology Data (last 24 hrs): 07/13/21 11:35 Blood - Blood Blood Culture Gram Stain - Final 07/13/21 11:35 Blood - Blood Gram Stain - Final Medications List Reviewed: Yes Assessment And Plan - Plan - continue medical management - will discuss colostomy creation with family @ later time after medical issues improved - continue daily wound care
--- NOTE | 2021-07-17 17:45 | P.PN ---
Date of Service: 07/17/21 Subjective Transfusing 2 units of packed red blood cells. Continue monitoring for acute blood loss anemia. Review of Systems 10-point ROS is otherwise unremarkable Physical Examination - Vital Signs Reviewed - Physical Exam General: Alert, In no apparent distress, Other (Aphasic and not really able to give much instructions) Respiratory: Clear to auscultation bilaterally, Normal air movement Cardiovascular: Regular rate/rhythm, Normal S1 S2 Gastrointestinal: Normal bowel sounds, No tenderness Musculoskeletal: No tenderness Integumentary: Skin breakdown, Tenderness/swelling, Erythema, Pressure ulcer Neurological: Aphasic and weakness on the right side Assessment & Plan - Problems (Diagnosis) (1) Sacral decubitus ulcer, stage III Current Visit: Yes Status: Acute (2) Broca's aphasia Current Visit: Yes Status: Acute (3) Gastrostomy tube dependent Current Visit: Yes Status: Chronic (4) HLD (hyperlipidemia) Current Visit: Yes Status: Chronic Hyperlipidemia type: mixed hyperlipidemia Qualified Code(s): E78.2 - Mixed hyperlipidemia (5) T2DM (type 2 diabetes mellitus) Current Visit: Yes Status: Chronic Diabetes mellitus residential insulin use: without buttermaker helper use Diabetes mellitus complication status: with skin complications Diabetes mellitus complication detail: with other skin ulcer Qualified Code(s): E11.622 - Type 2 diabetes mellitus with other skin ulcer (6) CVA (cerebral vascular accident) Current Visit: No Status: Chronic (7) GERD (gastroesophageal reflux disease) Current Visit: No Status: Chronic Esophagitis presence: esophagitis presence not specified Qualified Code(s): K21.9 - Gastro-esophageal reflux disease without esophagitis (8) HTN (hypertension) Current Visit: No Status: Chronic - Plan Continue with plan of care as mentioned below: 1. Continue with IV antibiotic 2. Continue with local wound care 3. Wound care consultation/surgical consultation appreciated 4. Resume tube feeds 5. Monitor CBC 6. Strict blood sugar monitoring 7. Pain control 8. GI and DVT prophylaxis Discharge Plan: Home Plan to discharge in: Greater than 2 days - Advance Directives Does patient have a Living Will: No Does patient have a Durable POA for Healthcare: No - Code Status/Comfort Care Code Status Assessed: Yes Code Status: Full Code Critical Care: No Time Spent Managing PTS Care (In Minutes): 35
[2021-07-17] MEDS: MINERAL OIL 30 ML UCUP PO SCH (18:00)
[2021-07-17] MEDS: ATORVASTATIN 40 MG TAB FT SCH (21:48)
[2021-07-18 06:19] LABS: ALT/SGPT 34 U/L (12-78); AST/SGOT 32 U/L (15-37); Albumin 1.9 g/dL (3.4-5.0); Alkaline Phosphatase 92 U/L (45-117); BUN Blood Urea Nitrogen 23 mg/dL (7-18); Bicarbonate 27 mmol/L (21-32); Bilirubin Total 0.5 mg/dL (0.2-1.0); Glomerular Filtration Rate > 90 mL/min (=/>90); Glucose Level 98 mg/dL (74-106); Potassium 4.1 mmol/L (3.5-5.1); Protein, Total 6.3 g/dL (6.4-8.2); Sodium Level 143 mmol/L (136-145)
[2021-07-18] MEDS: VANCOMYCIN 1.25 GM in NA CHLORIDE 0.9% 250 ML IVPB SCH (06:47)
[2021-07-18] MEDS: GLUCERNA 1.5 CAL 1,000 ML BOT FT SCH ×5 (08:00→21:55)
[2021-07-18] MEDS: carvediloL 12.5 MG TAB FT SCH ×2 (09:00→21:55)
[2021-07-18] MEDS: MINERAL OIL 30 ML UCUP PO SCH (09:00)
[2021-07-18] MEDS: COLLAGENASE 30 GM OINTMENT TOP SCH (09:00)
[2021-07-18] MEDS: CEFEPIME 2 GM in NA CHLORIDE 0.9% 100 ML IV SCH ×2 (09:39→21:56)
[2021-07-18] MEDS: TAMSULOSIN 0.4 MG SR CAP FT SCH ×2 (09:42→21:00)
[2021-07-18] MEDS: POTASSIUM 25 MEQ EFFERV TAB FT SCH ×2 (09:42→21:54)
[2021-07-18] MEDS: modafiniL 100 MG TAB PO SCH (09:42)
[2021-07-18] MEDS: AMLODIPINE 10 MG TAB FT SCH (09:43)
--- NOTE | 2021-07-18 13:15 | P.PN ---
Subjective Date of Service: 07/18/21 Chief Complaint: Decubitus Ulcer Subjective: No new changes Physical Examination - Vital Signs Temperature: 96.3 F Blood Pressure: 123/74 Pulse: 102 Respirations: 18 Pulse Ox (%): 97 - Physical Exam General: Confused Integumentary: Other (wounds remain dry, with mild fibrinous exudate, sacral wound is soiled with stool again. LEFT hip wound is dry without infection) - Studies Microbiology Data (last 24 hrs): 07/13/21 11:30 Wound - Coccyx Gram Stain - Final 07/13/21 11:30 Wound - Coccyx Culture & Sensitivity - Final Stenotrphoomonas Maltophilia Pseudomonas Aeruginosa 07/13/21 11:20 Blood - Blood Aerobic Blood Culture - Final Staphylococcus Haemolyticus 07/13/21 11:20 Blood - Blood Blood Culture Gram Stain - Final 07/13/21 11:20 Blood - Blood Anaerobic Blood Culture - Final No growth in 5 days. 07/13/21 11:35 Blood - Blood Aerobic Blood Culture - Final Enterococcus Faecalis 07/13/21 11:35 Blood - Blood Blood Culture Gram Stain - Final 07/13/21 11:35 Blood - Blood Anaerobic Blood Culture - Final Staphylococcus Haemolyticus 07/13/21 11:35 Blood - Blood Gram Stain - Final Medications List Reviewed: Yes Assessment And Plan - Plan - continue medical management - will discuss colostomy creation with family @ later time after medical issues improved - continue daily wound care - pressure reduction strategies
--- NOTE | 2021-07-18 16:50 | P.PN ---
Date of Service: 07/18/21 Subjective Patient's hemoglobin has been stable. Patient clinically doing much better. Patient is more awake and alert and responding better. Review of Systems 10-point ROS is otherwise unremarkable Physical Examination - Vital Signs Reviewed - Physical Exam General: Alert, In no apparent distress, Other (Aphasic and not really able to give much instructions) Respiratory: Clear to auscultation bilaterally, Normal air movement Cardiovascular: Regular rate/rhythm, Normal S1 S2 Gastrointestinal: Normal bowel sounds, No tenderness Musculoskeletal: No tenderness Integumentary: Skin breakdown, Tenderness/swelling, Erythema, Pressure ulcer Neurological: Normal gait, Cranial nerves 3-12 intact Assessment & Plan - Problems (Diagnosis) (1) Sacral decubitus ulcer, stage III Current Visit: Yes Status: Acute (2) Broca's aphasia Current Visit: Yes Status: Acute (3) Gastrostomy tube dependent Current Visit: Yes Status: Chronic (4) HLD (hyperlipidemia) Current Visit: Yes Status: Chronic Qualifiers: Hyperlipidemia type: mixed hyperlipidemia Qualified Code(s): E78.2 - Mixed hyperlipidemia (5) T2DM (type 2 diabetes mellitus) Current Visit: Yes Status: Chronic Qualifiers: Diabetes mellitus halfway insulin use: without terminal supervisor use Diabetes mellitus complication status: with skin complications Diabetes mellitus complication detail: with other skin ulcer Qualified Code(s): E11.622 - Type 2 diabetes mellitus with other skin ulcer (6) CVA (cerebral vascular accident) Current Visit: No Status: Chronic Qualifiers: (7) GERD (gastroesophageal reflux disease) Current Visit: No Status: Chronic Qualifiers: Esophagitis presence: esophagitis presence not specified Qualified Code(s): K21.9 - Gastro-esophageal reflux disease without esophagitis (8) HTN (hypertension) Current Visit: No Status: Chronic Qualifiers: - Plan Continue with plan of care as mentioned below: 1. Continue with IV antibiotic 2. Continue with local wound care 3. Wound care consultation/surgical consultation 4. Gentle IV hydration 5. Monitor CBC 6. Strict blood sugar monitoring 7. Pain control 8. GI and DVT prophylaxis Discharge Plan: Home Plan to discharge in: Greater than 2 days - Advance Directives Does patient have a Living Will: No Does patient have a Durable POA for Healthcare: No - Code Status/Comfort Care Code Status Assessed: Yes Code Status: Full Code Critical Care: No Time Spent Managing PTS Care (In Minutes): 35
[2021-07-18] MEDS: ATORVASTATIN 40 MG TAB FT SCH (21:54)
[2021-07-19 05:24] LABS: Absolute Lymphocytes (CBC) 1.9 K/uL (0.7-4.9); Hematocrit 27.4 % (39.6-49.0); Lymphocytes % 16.4 % (15.3-44.8); MPV 7.8 fL (7.6-11.3); RBC Red Blood Cell Count 3.02 M/uL (4.33-5.43)
[2021-07-19 05:51] LABS: RBC Red Blood Cell Count 2.96 M/uL (4.33-5.43)
[2021-07-19] MEDS: VANCOMYCIN 1.25 GM in NA CHLORIDE 0.9% 250 ML IVPB SCH (06:28)
[2021-07-19 06:35] LABS: Folic Acid, (Folate) 11.2 ng/mL (3.1-17.5); Magnesium 1.8 mg/dL (1.8-2.4); Phosphorus 3.4 mg/dL (2.5-4.9)
[2021-07-19] MEDS: GLUCERNA 1.5 CAL 1,000 ML BOT FT SCH ×5 (08:00→22:36)
[2021-07-19] MEDS: POTASSIUM 25 MEQ EFFERV TAB FT SCH ×2 (08:06→22:34)
[2021-07-19] MEDS: CEFEPIME 2 GM in NA CHLORIDE 0.9% 100 ML IV SCH ×2 (08:06→22:33)
[2021-07-19] MEDS: modafiniL 100 MG TAB PO SCH (08:06)
[2021-07-19] MEDS: TAMSULOSIN 0.4 MG SR CAP FT SCH ×2 (08:07→22:35)
[2021-07-19] MEDS: carvediloL 12.5 MG TAB FT SCH ×2 (08:07→22:35)
[2021-07-19] MEDS: COLLAGENASE 30 GM OINTMENT TOP SCH (08:08)
[2021-07-19] MEDS: ENOXAPARIN 40 MG/0.4 ML SQ SCH (09:00)
[2021-07-19] MEDS: AMLODIPINE 10 MG TAB FT SCH (09:00)
--- NOTE | 2021-07-19 12:44 | P.PN ---
Subjective Date of Service: 07/19/21 Chief Complaint: Decubitus Ulcer Subjective: Improving Physical Examination - Vital Signs Temperature: 97.2 F Blood Pressure: 127/65 Pulse: 89 Respirations: 16 Pulse Ox (%): 97 - Physical Exam General: Alert, Cooperative, Confused Integumentary: Other (wounds are stable, no change, clean, no infection, not soiled at this time. ) - Studies Microbiology Data (last 24 hrs): 07/13/21 11:30 Wound - Coccyx Gram Stain - Final 07/13/21 11:30 Wound - Coccyx Culture & Sensitivity - Final Stenotrphoomonas Maltophilia Pseudomonas Aeruginosa 07/13/21 11:20 Blood - Blood Aerobic Blood Culture - Final Staphylococcus Haemolyticus 07/13/21 11:20 Blood - Blood Blood Culture Gram Stain - Final 07/13/21 11:20 Blood - Blood Anaerobic Blood Culture - Final No growth in 5 days. 07/13/21 11:35 Blood - Blood Aerobic Blood Culture - Final Enterococcus Faecalis 07/13/21 11:35 Blood - Blood Blood Culture Gram Stain - Final 07/13/21 11:35 Blood - Blood Anaerobic Blood Culture - Final Staphylococcus Haemolyticus 07/13/21 11:35 Blood - Blood Gram Stain - Final Medications List Reviewed: Yes Assessment And Plan - Plan - continue medical management - will discuss colostomy creation with family @ later time after medical issues improved - continue daily wound care - pressure reduction strategies
[2021-07-19] MEDS: ATORVASTATIN 40 MG TAB FT SCH (22:34)
--- NOTE | 2021-07-20 03:57 | P.PN ---
Date of Service: 07/19/21 Subjective Patient continues to improve. Patient more awake and alert. Patient follows commands. Patient is aphasic and does not really verbally communicate. Patient was admitted for debridement of sacral wound. Patient with multiple drug- resistant organisms. Sensitive to vancomycin and cefepime. Continue for 2 weeks. Review of Systems 10-point ROS is otherwise unremarkable Physical Examination - Vital Signs Reviewed - Physical Exam General: Alert, In no apparent distress, Other (Aphasic and not really able to give much instructions) Respiratory: Clear to auscultation bilaterally, Normal air movement Cardiovascular: Regular rate/rhythm, Normal S1 S2 Gastrointestinal: Normal bowel sounds, No tenderness Integumentary: Skin breakdown, Tenderness/swelling, Erythema, Pressure ulcer; sacral; hip-left and right unstageable; left heel ulcer grade 1 Neurological: Aphasic and weakness on the right side Assessment & Plan - Problems (Diagnosis) (1) Sacral decubitus ulcer, stage IV/hip ulcer/Right hip unstageable pressure ulcer/Left hip unstageable pressure ulcer/left heel grade 1 Current Visit: Yes Status: Acute (2) Broca's aphasia Current Visit: Yes Status: Acute (3) Gastrostomy tube dependent Current Visit: Yes Status: Chronic (4) HLD (hyperlipidemia) Current Visit: Yes Status: Chronic Hyperlipidemia type: mixed hyperlipidemia Qualified Code(s): E78.2 - Mixed hyperlipidemia (5) T2DM (type 2 diabetes mellitus) Current Visit: Yes Status: Chronic Diabetes mellitus snf insulin use: without intermodal customer service use Diabetes mellitus complication status: with skin complications Diabetes mellitus complication detail: with other skin ulcer Qualified Code(s): E11.622 - Type 2 diabetes mellitus with other skin ulcer (6) CVA (cerebral vascular accident) Current Visit: No Status: Chronic (7) GERD (gastroesophageal reflux disease) Current Visit: No Status: Chronic Esophagitis presence: esophagitis presence not specified Qualified Code(s): K21.9 - Gastro-esophageal reflux disease without esophagitis (8) HTN (hypertension) Current Visit: No Status: Chronic - Plan Continue with plan of care as mentioned below: 1. Continue with IV antibiotic 2. Continue with local wound care 3. Wound care consultation/surgical consultation appreciated 4. Resume tube feeds 5. Monitor CBC 6. Strict blood sugar monitoring 7. Pain control 8. GI and DVT prophylaxis Discharge Plan: Home Plan to discharge in: Greater than 2 days - Advance Directives Does patient have a Living Will: No Does patient have a Durable POA for Healthcare: No - Code Status/Comfort Care Code Status Assessed: Yes Code Status: Full Code Critical Care: No Time Spent Managing PTS Care (In Minutes): 35
[2021-07-20] MEDS: VANCOMYCIN 1.25 GM in NA CHLORIDE 0.9% 250 ML IVPB SCH (06:00)
[2021-07-20 06:27] LABS: Absolute Lymphocytes (CBC) 1.8 K/uL (0.7-4.9); Hematocrit 27.8 % (39.6-49.0); Lymphocytes % 14.1 % (15.3-44.8); MPV 7.8 fL (7.6-11.3); RBC Red Blood Cell Count 3.09 M/uL (4.33-5.43)
[2021-07-20 06:44] LABS: BUN Blood Urea Nitrogen 18 mg/dL (7-18); Bicarbonate 26 mmol/L (21-32); Glomerular Filtration Rate > 90 mL/min (=/>90); Glucose Level 101 mg/dL (74-106); Sodium Level 135 mmol/L (136-145)
[2021-07-20] MEDS: modafiniL 100 MG TAB PO SCH (08:20)
[2021-07-20] MEDS: AMLODIPINE 10 MG TAB FT SCH (08:21)
[2021-07-20] MEDS: carvediloL 12.5 MG TAB FT SCH ×2 (08:22→20:28)
[2021-07-20] MEDS: TAMSULOSIN 0.4 MG SR CAP FT SCH ×2 (08:23→20:28)
[2021-07-20] MEDS: POTASSIUM 25 MEQ EFFERV TAB FT SCH ×2 (08:23→20:28)
[2021-07-20] MEDS: ENOXAPARIN 40 MG/0.4 ML SQ SCH (08:23)
[2021-07-20] MEDS: GLUCERNA 1.5 CAL 1,000 ML BOT FT SCH ×5 (08:26→20:36)
[2021-07-20] MEDS: COLLAGENASE 30 GM OINTMENT TOP SCH (08:27)
[2021-07-20] MEDS: SOD FERRIC GLUC COMPLX/SUCROSE 250 MG in NA CHLORIDE 0.9% 250 ML IV SCH (09:05)
[2021-07-20] MEDS: VANCOMYCIN 1.5 GM in NA CHLORIDE 0.9% 500 ML IVPB SCH (09:06)
[2021-07-20] MEDS: CEFEPIME 2 GM in NA CHLORIDE 0.9% 100 ML IV SCH ×2 (09:06→20:23)
--- NOTE | 2021-07-20 09:34 | P.PN ---
Subjective Date of Service: 07/20/21 Chief Complaint: Decubitus Ulcer Subjective: No new changes Physical Examination - Vital Signs Temperature: 96.2 F Blood Pressure: 126/70 Pulse: 100 Respirations: 16 Pulse Ox (%): 96 - Physical Exam General: Demented HEENT: Atraumatic, Normocephalic Neck: Supple Respiratory: Normal air movement Cardiovascular: Regular rate/rhythm, Normal S1 S2 Gastrointestinal: Soft and benign Neurological: Dementia - Studies Medications List Reviewed: Yes Assessment And Plan - Plan UTI CVA DM 2 HTN HLD Sacral Ulcer Continue with plan of care as mentioned below: 1. Continue with IV antibiotic as prescribed. 2. Continue with local wound care 3. Wound care consultation/surgical consultation appreciated 4. Resume tube feeds 5. Monitor CBC 6. Strict blood sugar monitoring 7. Pain control 8. GI and DVT prophylaxis
--- NOTE | 2021-07-20 11:06 | P.PN ---
Subjective Date of Service: 07/20/21 Chief Complaint: Decubitus Ulcer Subjective: Improving Physical Examination - Vital Signs Temperature: 96.2 F Blood Pressure: 126/70 Pulse: 100 Respirations: 16 Pulse Ox (%): 96 - Physical Exam General: Alert, In no apparent distress, Confused Cardiovascular: Regular rate/rhythm Integumentary: Other (wounds of bilateral hips, sacrum are stable, no infection noted) - Studies Medications List Reviewed: Yes Assessment And Plan - Plan - continue medical management - will discuss colostomy creation with family @ later time after medical issues improved - continue daily wound care - pressure reduction strategies
[2021-07-20] MEDS: ATORVASTATIN 40 MG TAB FT SCH (20:28)
[2021-07-20] MEDS: JUVEN PACKET FT SCH (20:28)
[2021-07-21] MEDS: VANCOMYCIN 1.5 GM in NA CHLORIDE 0.9% 500 ML IVPB SCH ×2 (09:00→09:27)
[2021-07-21] MEDS: JUVEN PACKET FT SCH ×2 (09:00→21:00)
[2021-07-21] MEDS: SOD FERRIC GLUC COMPLX/SUCROSE 250 MG in NA CHLORIDE 0.9% 250 ML IV SCH ×2 (09:00→09:27)
[2021-07-21] MEDS: GLUCERNA 1.5 CAL 1,000 ML BOT FT SCH ×5 (09:27→21:00)
[2021-07-21] MEDS: POTASSIUM 25 MEQ EFFERV TAB FT SCH ×2 (09:29→21:27)
[2021-07-21] MEDS: carvediloL 12.5 MG TAB FT SCH ×2 (09:29→21:00)
[2021-07-21] MEDS: TAMSULOSIN 0.4 MG SR CAP FT SCH ×2 (09:29→21:26)
[2021-07-21] MEDS: ENOXAPARIN 40 MG/0.4 ML SQ SCH (09:29)
[2021-07-21] MEDS: modafiniL 100 MG TAB PO SCH (09:29)
[2021-07-21] MEDS: COLLAGENASE 30 GM OINTMENT TOP SCH (09:30)
[2021-07-21] MEDS: AMLODIPINE 10 MG TAB FT SCH (09:30)
--- NOTE | 2021-07-21 14:19 | P.PN ---
Subjective Date of Service: 07/21/21 Chief Complaint: Decubitus Ulcer Subjective: No new changes, Improving Physical Examination - Vital Signs Temperature: 96.8 F Blood Pressure: 100/57 Pulse: 110 Respirations: 14 Pulse Ox (%): 94 - Physical Exam General: Alert HEENT: Atraumatic, Normocephalic Neck: Supple Respiratory: Normal air movement Cardiovascular: Regular rate/rhythm, Normal S1 S2 Gastrointestinal: Soft and benign Neurological: Cranial nerves 3-12 intact - Studies Medications List Reviewed: Yes Assessment And Plan - Plan UTI CVA DM 2 HTN HLD Sacral Ulcer Plan: 1. Continue with IV antibiotic as prescribed. 2. Continue with local wound care 3. Wound care and surgical service on board. 4. Resume tube feeds 5. Monitor CBC 6. Strict blood sugar monitoring 7. Pain control 8. GI and DVT prophylaxis.
--- NOTE | 2021-07-21 19:45 | P.PN ---
Subjective Date of Service: 07/21/21 Chief Complaint: Decubitus Ulcer No acute events, patient remains non-verbal Physical Examination - Vital Signs Temperature: 95.3 F Blood Pressure: 93/64 Pulse: 108 Respirations: 16 Pulse Ox (%): 97 - Physical Exam General: Alert, In no apparent distress, Confused Integumentary: Other (sacrum, right hip are stable, LEFT hip has some superficial slough) - Studies Medications List Reviewed: Yes Assessment And Plan - Plan - continue medical management - will discuss colostomy creation with family @ later time after medical issues improved - continue daily wound care, there only 0.5% dakins available, will change to 0.25%, and add santyl, if not improved may have to reconsider additional debridement. - pressure reduction strategies
[2021-07-21] MEDS: ATORVASTATIN 40 MG TAB FT SCH (21:26)
[2021-07-22] MEDS: GLUCERNA 1.5 CAL 1,000 ML BOT FT SCH ×5 (08:00→21:00)
--- NOTE | 2021-07-22 08:21 | RAD REPORT ---
EXAM DESCRIPTION: US - UPPER EXTREMITY VENOUS UNILATE - 07/22/2021 7:33 am CLINICAL HISTORY: Arm swelling and pain COMPARISON: None. FINDINGS: Left internal jugular vein, left subclavian vein, left axillary vein, left brachial vein, left basilic, left ulnar and left radial veins demonstrate phasic signal. The veins are compressible . Doppler demonstrates good flow. Echogenic material consistent with acute thrombus is present within cephalic vein. IMPRESSION: Acute thrombus within the left cephalic vein
--- NOTE | 2021-07-22 08:24 | RAD REPORT ---
EXAM DESCRIPTION: USUpper Ext Artery Uni Bil07/22/2021 12:19 am CLINICAL HISTORY: Left arm swelling and pain COMPARISON: None FINDINGS: The left common carotid, left subclavian, left subclavian, left axillary, left brachial, l eft basilic, left ulnar and left radial arteries demonstrate normal waveforms. No significant stenosis/occlusion Doppler demonstrates good flow. Grayscale, color and spectral analysis performed on all vessels IMPRESSION: Unremarkable exam
[2021-07-22] MEDS: AMLODIPINE 10 MG TAB FT SCH (09:00)
[2021-07-22] MEDS: carvediloL 12.5 MG TAB FT SCH ×2 (09:00→21:00)
[2021-07-22] MEDS: SOD FERRIC GLUC COMPLX/SUCROSE 250 MG in NA CHLORIDE 0.9% 250 ML IV SCH (09:00)
[2021-07-22] MEDS: SODIUM HYPOCHLORITE 0.25% 473 ML TOP SCH (09:00)
[2021-07-22] MEDS: TAMSULOSIN 0.4 MG SR CAP FT SCH ×2 (10:04→21:00)
[2021-07-22] MEDS: COLLAGENASE 30 GM OINTMENT TOP SCH (10:04)
[2021-07-22] MEDS: JUVEN PACKET FT SCH ×2 (10:04→21:00)
[2021-07-22] MEDS: ENOXAPARIN 40 MG/0.4 ML SQ SCH (10:04)
[2021-07-22] MEDS: modafiniL 100 MG TAB PO SCH (10:04)
[2021-07-22] MEDS: POTASSIUM 25 MEQ EFFERV TAB FT SCH ×2 (10:04→21:00)
[2021-07-22] MEDS ORDERED: NA CHLORIDE 0.9% 500 ML IV ONE (12:03)
[2021-07-22 13:14] LABS: Blood Gas Oxyhemoglobin 96.8 % (94-97); Blood O2 Saturation 99.7 % (92-98.5)
[2021-07-22] MEDS: NA CHLORIDE 0.9% 1,000 ML IV SCH ×2 (14:47→22:27)
--- NOTE | 2021-07-22 15:22 | P.OP ---
Preoperative diagnosis: Need for Venous Access Postoperative diagnosis: Need for Venous Access Primary procedure: Placement of LEFT sublcavian central line Anesthesia: 1% lidocaine used Estimated blood loss: ~3cc Specimen: none Findings: non-pulsatile blood returned Complications: None Implants: power injectable triple lumen catheter Transferred to: ICU Condition: Serious
--- NOTE | 2021-07-22 15:23 | RAD REPORT ---
EXAM DESCRIPTION: RAD - Chest Single View - 07/22/2021 3:08 pm CLINICAL HISTORY: Possible aspiration? COMPARISON: Chest Single View dated 07/13/2021; Chest Single View dated 06/25/2021; Chest Single View d ated 05/22/2021; Chest Single View dated 05/20/2021 FINDINGS: Lines: None. Lungs: No evidence of edema or pneumonia. Pleural: No significant pleural effusions or pneumothorax. Cardiac: The heart size is within normal limits. Bones: No acute fractures. Other: IMPRESSION: No acute cardiopulmonary disease.
--- NOTE | 2021-07-22 16:04 | RAD REPORT ---
EXAM DESCRIPTION: RAD - Chest Single View - 07/22/2021 3:57 pm CLINICAL HISTORY: Central line placement COMPARISON: Chest Single View dated 07/22/2021; Chest Single View dated 07/13/2021; Chest Single View d ated 06/25/2021; Chest Single View dated 05/22/2021 FINDINGS: Lines: Left subclavian approach central line with tip overlying the left brachiocephalic v ein/proximal SVC. Lungs: No evidence of edema or pneumonia. Pleural: No significant pleural effusions or pneumothorax. Cardiac: The heart size is within normal limits. Bones: No acute fractures. Other: IMPRESSION: No acute cardiopulmonary disease. Left subclavian approach central line with tip overlyi ng the brachiocephalic vein/proximal SVC. No pneumothorax .
[2021-07-22] MEDS: VANCOMYCIN 1.5 GM in NA CHLORIDE 0.9% 500 ML IVPB SCH (16:46)
[2021-07-22] MEDS ORDERED: NOREPINEPHRINE 4 MG in D5W 250 ML IV SCH ×2 (17:00)
[2021-07-22] MEDS ORDERED: NA CHLORIDE 0.9% IV ONE (17:00)
[2021-07-22] MEDS ORDERED: CEFEPIME 1 GM in NA CHLORIDE 0.9% 100 ML IV ONE (17:00)
[2021-07-22] MEDS ORDERED: HYDROCORTISONE NA SUC IV ONE (17:00)
--- NOTE | 2021-07-22 17:01 | P.PN ---
Subjective Date of Service: 07/22/21 Chief Complaint: Decubitus Ulcer Subjective: Worsening (Had episode of tachycardia with worsened mentation and hypotension today.) Physical Examination - Vital Signs Temperature: 97.1 F Blood Pressure: 89/59 Pulse: 146 Respirations: 47 Pulse Ox (%): 88 - Physical Exam General: Unresponsive HEENT: Atraumatic, Normocephalic Neck: Supple Respiratory: Normal air movement Cardiovascular: Regular rate/rhythm, Other (Tachycardia) Gastrointestinal: Soft and benign Musculoskeletal: No swelling Neurological: Other (Altered mentation) - Studies Medications List Reviewed: Yes Assessment And Plan - Plan UTI CVA DM 2 HTN HLD Sacral Ulcer Sepsis Plan: His mentation worsened significantly and is now developed tachycardia and hypotension. He is on vancomycin as empiric therapy for underlying sacral wound however with present development there is concern for gram-negative bacteremia. We will have vancomycin continued and will have cefepime. He is transferred to ICU. We will continue vasopressors to keep MAP > 65mmhg and follow vitals closely. we will repeat cultures as needed.
[2021-07-22 17:13] LABS: Absolute Lymphocytes (CBC) 2.1 K/uL (0.7-4.9); Hematocrit 17.3 % (39.6-49.0); Lymphocytes % 7.8 % (15.3-44.8); MPV 8.1 fL (7.6-11.3); RBC Red Blood Cell Count 1.84 M/uL (4.33-5.43)
[2021-07-22 18:26] LABS: BUN Blood Urea Nitrogen 81 mg/dL (7-18); Bicarbonate 22 mmol/L (21-32); Glomerular Filtration Rate > 90 mL/min (=/>90); Glucose Level 138 mg/dL (74-106); Sodium Level 138 mmol/L (136-145)
[2021-07-22 18:29] LABS: Potassium 6.8 mmol/L (3.5-5.1)
[2021-07-22] MEDS ORDERED: SODIUM CHLORIDE 0.9% 10ML INJ IV PRN (20:04)
[2021-07-22] MEDS ORDERED: HYDROCORTISONE SUC 100 MG INJ IV ONE (20:45)
[2021-07-22] MEDS ORDERED: NA CHLORIDE 0.9% 250 ML ONE ×2 (20:54→23:13)
[2021-07-22] MEDS: ATORVASTATIN 40 MG TAB FT SCH (21:00)
[2021-07-22] MEDS: CEFEPIME 1 GM in NA CHLORIDE 0.9% 100 ML IV SCH (21:00)
[2021-07-22 21:35] LABS: Anisocytosis 1+; Blood Morphology Comment NOTED (NOT SEEN); Hypochromasia 1+; Platelet Estimate INCR; Polychromasia 1+
[2021-07-22] MEDS ORDERED: D50W 25 GM/50 ML SYRINGE IV ONE (21:52)
[2021-07-22] MEDS ORDERED: INSULIN -REGULAR HUMAN 50 UNIT/0.5 ML ML IV ONE (21:53)
[2021-07-22] MEDS ORDERED: SOD POLYSTYREN SUL 15 GM/60 ML UCUP PR ONE (21:54)
[2021-07-22] MEDS ORDERED: CALCIUM GLUC 10% INJ 9.3 MEQ in NA CHLORIDE 0.9% 100 ML IV ONE (22:15)
[2021-07-22] MEDS ORDERED: CALCIUM GLUCONATE 1 GM IVPB 2 GM/100 ML BAG IV ONE (22:24)
[2021-07-22] MEDS ORDERED: D10W 250 ML IV ONE (22:25)
[2021-07-22] MEDS: PANTOPRAZOLE 40 MG INJ IVP SCH (22:28)
--- NOTE | 2021-07-22 23:51 | OP ---
Date of Procedure: 07/22/2021 Surgeon: Santiago Cooper MD, Preoperative Diagnosis: Need for venous access. Postoperative Diagnosis: Need for venous access. Procedure Performed: Placement of left subclavian central venous access device/central line. Anesthesia: 1% lidocaine utilized. Estimated Blood Loss: Less than 3 cc. Specimen: None. Findings: Dark nonpulsatile blood return. Complications: None. Implants: Power injectable triple-lumen catheter. The patient remained in ICU in serious condition. Procedure In Detail: After informed consent was obtained from the patient's family, the patient was prepped and draped in the usual sterile fashion. After the patient was placed in steep Trendelenburg position, I anesthetized the skin overlying the left subclavian insertion site with 1% lidocaine. I then cannulated the left subclavian vein on first attempt with a microintroducer set. Immediately d ark red non-pulsatile blood was returned. I advanced a microwire at this point and made a small maria d incision after removing the microwire and placed the sheath in over the wire at this point using Leatha aline technique. After the microwire was completely removed, the inner cannula was removed. Dark r ed nonpulsatile blood was returned from the sheath. I then advanced a standard wire into the subclav charles vein without evidence of complication. I then performed sequential dilatation using Seldinger te chnique and placed the triple-lumen catheter into the left subclavian vein without evidence of compli cation. Dark red nonpulsatile blood returned from all 3 parts and flushed quite easily and they were then flushed with 10 cc of saline in each port and capped at this point. At this point, I cleansed the area of the insertion site once again and secured the catheter to the chest with the attached 3-0 nylon suture and a sterile dressing placed over top along with a Biopatch. After the patient had th is placed back into position, patient tolerated the procedure well without evidence of any complicati on and remained in the ICU in serious condition. All counts were correct at the end of the case. St at chest x-ray will be performed and all counts were correct at the end of the case. JENNIFER/COMFORTL Voice ID: [id number] Report ID: [id number]
[2021-07-23 00:58] LABS: ALT/SGPT 41 U/L (12-78); AST/SGOT 37 U/L (15-37); Albumin 1.6 g/dL (3.4-5.0); Alkaline Phosphatase 79 U/L (45-117); BUN Blood Urea Nitrogen 77 mg/dL (7-18); Bicarbonate 27 mmol/L (21-32); Bilirubin Total 0.3 mg/dL (0.2-1.0); Glomerular Filtration Rate > 90 mL/min (=/>90); Glucose Level 165 mg/dL (74-106); Potassium 4.4 mmol/L (3.5-5.1); Sodium Level 142 mmol/L (136-145)
[2021-07-23 05:11] LABS: Absolute Lymphocytes (CBC) 1.5 K/uL (0.7-4.9); Hematocrit 22.6 % (39.6-49.0); Lymphocytes % 6.7 % (15.3-44.8); MPV 8.1 fL (7.6-11.3)
--- NOTE | 2021-07-23 07:04 | P.CNS ---
Date of Consult: 07/22/21 Reason for Consult: hyperkalemia Chief Complaint: Decubitus Ulcer History of Present Illness: pt with HTN , CVA ,s/p peg tube sacral decub s/p admite for sepsis , underwent debridement -noted with elevated k to 6.8 on routine labs today - renal consulted for hyperkalmia - + prior potassium supplement use -now with logged peg tube Receiving PRBC Allergies No Known Allergies Allergy (Unverified 05/11/21 09:07) Home Medications: Amlodipine [Norvasc*] 1 tab FT DAILY 05/17/21 Atorvastatin Calcium [Lipitor] 1 tab FT BEDTIME 05/17/21 Carvedilol [Coreg] 40 tab FT BID 05/17/21 Polyethylene Glycol 3350 [Miralax] 1 packet FT DAILY PRN 05/17/21 Potassium Chloride 15 ml FT BID 05/17/21 Tamsulosin HCl [Flomax] 1 cap FT BID 05/17/21 modafiniL [Provigil*] 1 tab FT DAILY 05/17/21 Lactose-Free Food [Jevity*] 237 ml FT Q4H 06/25/21 Metformin ER [Glucophage ER*] 500 mg FT DAILY 06/25/21 Cefepime [Maxipime*] 2 gm IV Q12H #28 vial 07/20/21 Codeine/APAP [Tylenol W/Codeine Elixir*] 5 ml FT Q4H PRN #100 ml 07/20/21 Collagenase [Santyl Ointment*] 1 appl TOP DAILY #1 tube 07/20/21 Glucerna 1.5 Mendel 237 ml FT 5XD #120 bot 07/20/21 Vancomycin/0.9 % Sod Chloride [Vanco 1.25 gm/250 ml-0.9% NaCl] 1.25 gm IV Q24H #14 plast..bag 07/20/21 - Past Medical/Surgical History Diabetic: Yes -: CVA -: HTN -: T2DM -: HLD -: FTT -: GERD -: BPH -: hemiplegia, dysphagia, weakness, aphasia -: Gastrostomy tube Psychosocial/ Personal History: Patient lives at an LTAC. - Social History Smoking Status: Unknown if ever smoked Alcohol use: No CD- Drugs: No Caffeine use: No Place of Residence: [facility]ustodial Review of Systems is unable to be obtained Physical Examination Temp Pulse Resp BP Pulse Ox 98.8 F 113 H 28 H 95/58 L 100 07/23/21 04:00 07/23/21 06:00 07/23/21 06:00 07/23/21 06:00 07/23/21 06:00 - Problems (1) Broca's aphasia Current Visit: Yes Status: Acute (2) Sacral decubitus ulcer, stage III Current Visit: Yes Status: Acute (3) BPH (benign prostatic hyperplasia) Current Visit: Yes Status: Chronic Qualifiers: Lower urinary tract symptom presence: symptoms absent Qualified Code(s): N40.0 - Benign prostatic hyperplasia without lower urinary tract symptoms (4) Gastrostomy tube dependent Current Visit: Yes Status: Chronic (5) HLD (hyperlipidemia) Current Visit: Yes Status: Chronic Qualifiers: Hyperlipidemia type: mixed hyperlipidemia Qualified Code(s): E78.2 - Mixed hyperlipidemia Physician Review: Patient Assessed, Agree with Above Assessment and Plan Physician Review Additional Text: Phycial Exam Elerly mnale , obtunded , non verbal GENEVA , EOMI SIS2, RRR Good air entry b/l , no creps full abd , soft , BS+ , PEG + no pedal edema , b/l , no CT drowsy , + right hemiparesis IMPRESSION Hyperkalemia -likely due to supplemenetation UTI CVA DM 2 HTN HLD Sacral Ulcer Sepsis PLAN - dose stat kayexelate 30g NE, insulin IV /D50W now/calcium gluconate -follow repeat k in 2 hrs -c/w NS -continue to keep MAP ABOVE 70 -Dose lasix tonight if MAP above 70
--- NOTE | 2021-07-23 07:05 | P.PN ---
Subjective Date of Service: 07/23/21 Chief Complaint: Decubitus Ulcer Subjective: No new changes Physical Examination - Vital Signs Temperature: 98.8 F Blood Pressure: 95/58 Pulse: 113 Respirations: 28 Pulse Ox (%): 100 - Studies Medications List Reviewed: Yes Assessment And Plan - Current Problems (Diagnosis) (1) Broca's aphasia Current Visit: Yes Status: Acute (2) Sacral decubitus ulcer, stage III Current Visit: Yes Status: Acute (3) BPH (benign prostatic hyperplasia) Current Visit: Yes Status: Chronic Qualifiers: Lower urinary tract symptom presence: symptoms absent Qualified Code(s): N40.0 - Benign prostatic hyperplasia without lower urinary tract symptoms (4) Gastrostomy tube dependent Current Visit: Yes Status: Chronic (5) HLD (hyperlipidemia) Current Visit: Yes Status: Chronic Qualifiers: Hyperlipidemia type: mixed hyperlipidemia Qualified Code(s): E78.2 - Mixed hyperlipidemia Physician Review: Patient Assessed, Agree with Above Assessment and Plan Physician Review Additional Text: 07/23/21 07:05 Elerly male , obtunded , non verbal GENEVA , EOMI SIS2, RRR Good air entry b/l , no creps full abd , soft , BS+ , PEG + no pedal edema , b/l , no CT drowsy , + right hemiparesis IMPRESSION Hyperkalemia -likely due to supplementation-resolved UTI CVA DM 2 HTN HLD Sacral Ulcer Sepsis PLAN - Improved k to 4.4 , follow repeat this am making urine c/w NS -continue to optmize BP follow peg tube and sacral decub mgt -follow workup for yaritza neg bacteremia -avoid k containing fluid now
[2021-07-23] MEDS: carvediloL 12.5 MG TAB FT SCH (07:52)
[2021-07-23] MEDS: GLUCERNA 1.5 CAL 1,000 ML BOT FT SCH ×5 (07:52→20:27)
[2021-07-23] MEDS: TAMSULOSIN 0.4 MG SR CAP FT SCH ×2 (07:53→20:27)
[2021-07-23] MEDS: JUVEN PACKET FT SCH ×2 (07:53→20:27)
[2021-07-23] MEDS: POTASSIUM 25 MEQ EFFERV TAB FT SCH ×2 (07:53→20:27)
--- NOTE | 2021-07-23 07:53 | EKG ---
Test Date: 2021-07-22 Test Time: 11:45:16 [employer]: ORQUIDEA MEASUREMENT RESULTS: Intervals: Rate: 139 OH: 164 QRSD: 54 QT: 248 QTc: 377 [place]: P: 73 OH: 164 QRS: -44 T: 67 INTERPRETIVE STATEMENTS: Sinus tachycardia Left axis deviation Nonspecific ST abnormality Abnormal ECG Compared to ECG 07/13/2021 12:00:46 Left-axis deviation now present ST (T wave) deviation now present Electronically Signed On 07-23-21 07:52:33 CDT by Ru Brewer
[2021-07-23] MEDS: AMLODIPINE 10 MG TAB FT SCH (07:54)
--- NOTE | 2021-07-23 08:01 | P.PN ---
Subjective Date of Service: 07/23/21 Chief Complaint: Decubitus Ulcer Subjective: No new changes Physical Examination - Vital Signs Temperature: 98.8 F Blood Pressure: 95/58 Pulse: 113 Respirations: 28 Pulse Ox (%): 100 - Physical Exam General: Alert HEENT: Atraumatic, Normocephalic Neck: Supple Respiratory: Normal air movement Cardiovascular: Regular rate/rhythm, Normal S1 S2 Gastrointestinal: Soft and benign - Studies Medications List Reviewed: Yes Assessment And Plan - Plan UTI CVA DM 2 HTN HLD Sacral Ulcer Sepsis Anemia-deemed due to GI bleed. Plan: His labs came back yesterday with significant anemia with hemoglobin of 5.4, hyperkalemia with potassium of 6.8. He had 2 units of packed red cell transfusion and hyperkalemia was managed by nephrology. For now we will continue to monitoring and management with pantoprazole and packed red cell transfusion as needed for hemoglobin drop of less than 7 Surgeon planning for EGD to evaluate GI bleed. We will continue vancomycin and cefepime. Infectious disease consult placed for management of bacteremia/sepsis. We will continue vasopressors to keep MAP > 65mmhg and follow vitals closely. we will repeat cultures as needed. Physician Review: Patient Assessed, Agree with Above Assessment and Plan
[2021-07-23 08:20] LABS: BUN Blood Urea Nitrogen 59 mg/dL (7-18); Bicarbonate 26 mmol/L (21-32); Glomerular Filtration Rate > 90 mL/min (=/>90); Glucose Level 135 mg/dL (74-106); Potassium 3.7 mmol/L (3.5-5.1); Sodium Level 145 mmol/L (136-145)
--- NOTE | 2021-07-23 08:30 | P.CNS ---
Date of Consult: 07/23/21 Reason for Consult: Septic shock Chief Complaint: Shock History of Present Illness: Patient is 65 years of age multiple medical problems unresponsive tree of prior stroke decubitus ulcers admitted on 13 July this year is aphasic developed hypotension tachycardia was admitted to the ICU bolused started on some vasopressors he is currently stable Allergies No Known Allergies Allergy (Unverified 05/11/21 09:07) Home Medications: Amlodipine [Norvasc*] 1 tab FT DAILY 05/17/21 Atorvastatin Calcium [Lipitor] 1 tab FT BEDTIME 05/17/21 Carvedilol [Coreg] 40 tab FT BID 05/17/21 Polyethylene Glycol 3350 [Miralax] 1 packet FT DAILY PRN 05/17/21 Potassium Chloride 15 ml FT BID 05/17/21 Tamsulosin HCl [Flomax] 1 cap FT BID 05/17/21 modafiniL [Provigil*] 1 tab FT DAILY 05/17/21 Lactose-Free Food [Jevity*] 237 ml FT Q4H 06/25/21 Metformin ER [Glucophage ER*] 500 mg FT DAILY 06/25/21 Cefepime [Maxipime*] 2 gm IV Q12H #28 vial 07/20/21 Codeine/APAP [Tylenol W/Codeine Elixir*] 5 ml FT Q4H PRN #100 ml 07/20/21 Collagenase [Santyl Ointment*] 1 appl TOP DAILY #1 tube 07/20/21 Glucerna 1.5 Mendel 237 ml FT 5XD #120 bot 07/20/21 Vancomycin/0.9 % Sod Chloride [Vanco 1.25 gm/250 ml-0.9% NaCl] 1.25 gm IV Q24H #14 plast..bag 07/20/21 - Past Medical/Surgical History Diabetic: Yes -: CVA -: HTN -: T2DM -: HLD -: FTT -: GERD -: BPH -: hemiplegia, dysphagia, weakness, aphasia -: Gastrostomy tube Psychosocial/ Personal History: Patient lives at an LTAC. - Social History Smoking Status: Unknown if ever smoked Alcohol use: No CD- Drugs: No Caffeine use: No Place of Residence: Jail Review of Systems is unable to be obtained Physical Examination Temp Pulse Resp BP Pulse Ox 98.8 F 113 H 28 H 95/58 L 100 07/23/21 08:01 07/23/21 08:01 07/23/21 08:01 07/23/21 08:01 07/23/21 08:01 General: Unresponsive Respiratory: Diminished Cardiovascular: No edema, Normal S1 S2 Gastrointestinal: Normal bowel sounds, Soft and benign - Problems (1) Septic shock Current Visit: Yes Status: Acute Plan: Patient is 65 years of age admitted with hypotension presumed septic shock blood cultures were positive for Enterococcus continue with vancomycin and gram- negative coverage repeat blood cultures patient got 1 dose of hydrocortisone he is off vasopressors right now continue with IV fluids DC beta-blockers (2) Anemia Current Visit: Yes Status: Acute Plan: There was a precipitous drop in patient's hemoglobin normocytic anemia stability of any acute bleed scheduled for an EGD patient is stable DC Lovenox s/p blood transfusion Qualifiers: Anemia type: unspecified type Qualified Code(s): D64.9 - Anemia, unspecified
[2021-07-23] MEDS: CEFEPIME 1 GM in NA CHLORIDE 0.9% 100 ML IV SCH ×2 (09:19→20:27)
[2021-07-23] MEDS: PANTOPRAZOLE 40 MG INJ IVP SCH ×2 (09:19→20:28)
[2021-07-23] MEDS: SOD FERRIC GLUC COMPLX/SUCROSE 250 MG in NA CHLORIDE 0.9% 250 ML IV SCH (10:53)
--- NOTE | 2021-07-23 11:57 | P.CNS ---
Date of Consult: 07/23/21 Chief Complaint: Decubitus Ulcer History of Present Illness: The patient is a 65-year-old male with an extensive past medical history who has been hospitalized at our facility several times within the last year secondary to sepsis, infected sacral ulcer, infected left heel ulcer, failure to thrive, protein caloric malnutrition, and anemia. Patient presented to our facility on 07/13 secondary to sepsis. Of note patient is aphasic at baseline, as such all history obtained via chart review. Blood cultures obtained on 07/13 grew staph hemolyticus and Enterococcus faecalis, wound culture obtained on 07/13 grew Pseudomonas and stenotrophomonas maltophilia. Patient has been on vancomycin and cefepime. He lost IV access on 07/20 and did not receive antibiotics on 07/21 as such we saw a rise in his WBC. Since reinstating antibiotics WBC has been downtrending. Infectious disease has been consulted to manage patient's antibiotic regimen. Allergies No Known Allergies Allergy (Unverified 05/11/21 09:07) Home Medications: Amlodipine [Norvasc*] 1 tab FT DAILY 05/17/21 Atorvastatin Calcium [Lipitor] 1 tab FT BEDTIME 05/17/21 Carvedilol [Coreg] 40 tab FT BID 05/17/21 Polyethylene Glycol 3350 [Miralax] 1 packet FT DAILY PRN 05/17/21 Potassium Chloride 15 ml FT BID 05/17/21 Tamsulosin HCl [Flomax] 1 cap FT BID 05/17/21 modafiniL [Provigil*] 1 tab FT DAILY 05/17/21 Lactose-Free Food [Jevity*] 237 ml FT Q4H 06/25/21 Metformin ER [Glucophage ER*] 500 mg FT DAILY 06/25/21 Cefepime [Maxipime*] 2 gm IV Q12H #28 vial 07/20/21 Codeine/APAP [Tylenol W/Codeine Elixir*] 5 ml FT Q4H PRN #100 ml 07/20/21 Collagenase [Santyl Ointment*] 1 appl TOP DAILY #1 tube 07/20/21 Glucerna 1.5 Mendel 237 ml FT 5XD #120 bot 07/20/21 Vancomycin/0.9 % Sod Chloride [Vanco 1.25 gm/250 ml-0.9% NaCl] 1.25 gm IV Q24H #14 plast..bag 07/20/21 - Past Medical/Surgical History Diabetic: Yes -: CVA -: HTN -: T2DM -: HLD -: FTT -: GERD -: BPH -: hemiplegia, dysphagia, weakness, aphasia -: Gastrostomy tube Psychosocial/ Personal History: Patient lives at an LTAC. - Social History Smoking Status: Unknown if ever smoked Alcohol use: No CD- Drugs: No Caffeine use: No Place of Residence: Assisted Review of Systems is unable to be obtained Physical Examination Temp Pulse Resp BP Pulse Ox 98.8 F 113 H 28 H 95/58 L 100 07/23/21 10:47 07/23/21 10:47 07/23/21 10:47 07/23/21 10:47 07/23/21 10:47 General: Oriented x1, Cachectic HEENT: Atraumatic Neck: JVD not distended Respiratory: Clear to auscultation bilaterally, Normal air movement Cardiovascular: Regular rate/rhythm Gastrointestinal: Normal bowel sounds, Soft and benign, Other (PEG tube) Musculoskeletal: Contractures Integumentary: Other (Sacral stage IV wound, left heel stage II wound, left hip wound) Urinary: Fragoso catheter Conclusions/Impression: Antibiotics Vancomycin: urrent Cefepime: urrent Assessment/plan Recurrent complicated gram-positive bacteremia Blood cultures obtained on 07/13 grew staph hemolyticus and Enterococcus faecalis. -Repeat cultures: 07/15: No growth 07/16:CoNS in 04/12 07/20: No growth 07/23: Pending -This is patient's second hospitalization within 1 month secondary to gram- positive bacteremia. As such recommend treating patient with IV vancomycin for 4 to 6 weeks. Source of infection likely one of his many decubitus ulcerations. However cannot rule out endocarditis. Recommend obtaining transesophageal echocardiogram. Also recommend ordering MRI of pelvis to rule out sacral osteomyelitis Stage IV decubitus ulceration Has had several wound debridements this year, most recent was 07/15 Wound culture growing Pseudomonas and stenotrophomonas maltophilia. -Continue wound care per surgical team. Continue current IV antibiotics Avoid direct pressure and offload wounds Left heel stage II wound Continue current wound care. Avoid direct pressure and offload. GI bleed Nurse noted blood-tinged residual feedings on 07/22. Gastric Aspirate with positive occult blood findings. As such I am team is holding tube feeds at this time. Patient was last fed on 07/22 at 6:30 PM. Continue proton pump inhibitor and blood transfusions as needed. Protein caloric malnutrition: Severe Continue to monitor closely. PEG tube feedings being held at this time. Anemia Likely related to wounds/GI bleed. Continue to monitor H&H Prognosis poor Recommend transferring to [place] for long-term care Plan of care discussed with Dr. Manuel Thank you for consultation
[2021-07-23 12:27] LABS: Hematocrit 20.1 % (39.6-49.0)
[2021-07-23] MEDS: NA CHLORIDE 0.9% 1,000 ML IV SCH ×2 (12:34→20:27)
[2021-07-23] MEDS: COLLAGENASE 30 GM OINTMENT TOP SCH (13:56)
[2021-07-23] MEDS: SODIUM HYPOCHLORITE 0.25% 473 ML TOP SCH (13:56)
[2021-07-23] MEDS: VANCOMYCIN 1.5 GM in NA CHLORIDE 0.9% 500 ML IVPB SCH (18:09)
[2021-07-23 18:36] LABS: Hematocrit 24.4 % (39.6-49.0)
[2021-07-24 04:10] LABS: Hematocrit 23.7 % (39.6-49.0)
[2021-07-24 05:25] LABS: ALT/SGPT 45 U/L (12-78); AST/SGOT 33 U/L (15-37); Albumin 1.8 g/dL (3.4-5.0); Alkaline Phosphatase 75 U/L (45-117); BUN Blood Urea Nitrogen 24 mg/dL (7-18); Bicarbonate 23 mmol/L (21-32); Bilirubin Total 0.5 mg/dL (0.2-1.0); Glomerular Filtration Rate > 90 mL/min (=/>90); Glucose Level 92 mg/dL (74-106); Protein, Total 5.5 g/dL (6.4-8.2); Sodium Level 146 mmol/L (136-145)
[2021-07-24] MEDS: NA CHLORIDE 0.9% 1,000 ML IV SCH (05:27)
[2021-07-24] MEDS: GLUCERNA 1.5 CAL 1,000 ML BOT FT SCH ×5 (07:10→22:45)
[2021-07-24] MEDS: POTASSIUM 25 MEQ EFFERV TAB FT SCH ×2 (07:11→22:45)
[2021-07-24] MEDS: JUVEN PACKET FT SCH ×2 (07:11→22:45)
[2021-07-24] MEDS: TAMSULOSIN 0.4 MG SR CAP FT SCH ×2 (09:00→21:00)
[2021-07-24] MEDS: CEFEPIME 1 GM in NA CHLORIDE 0.9% 100 ML IV SCH (09:30)
[2021-07-24] MEDS: COLLAGENASE 30 GM OINTMENT TOP SCH (09:31)
[2021-07-24] MEDS: SODIUM HYPOCHLORITE 0.25% 473 ML TOP SCH (09:31)
[2021-07-24] MEDS: PANTOPRAZOLE 40 MG INJ IVP SCH ×2 (09:32→21:30)
--- NOTE | 2021-07-24 09:56 | P.PN ---
Subjective Date of Service: 07/24/21 Chief Complaint: Decubitus Ulcer Subjective: No new changes, Improving Physical Examination - Vital Signs Temperature: 97.6 F Blood Pressure: 128/65 Pulse: 108 Respirations: 19 Pulse Ox (%): 98 - Physical Exam General: Demented HEENT: Atraumatic, Normocephalic Neck: Supple Respiratory: Normal air movement Cardiovascular: Regular rate/rhythm, Normal S1 S2, Other (tachycardia.) Gastrointestinal: Soft and benign Musculoskeletal: No swelling Neurological: Normal speech - Studies Medications List Reviewed: Yes Assessment And Plan - Plan UTI CVA DM 2 HTN HLD Sacral Ulcer Sepsis Anemia-deemed due to GI bleed. Plan: Presently his hemoglobin is better at 8.0 after another unit of packed red cell transfusion yesterday. We will continue empiric antibiotic of vancomycin and cefepime pending final recommendation by ID. He is to have EGD for evaluation of suspected upper GI bleed today by surgeon. We will follow recommendation. We will continue pantoprazole therapy. Continue to monitor H&H and transfuse if hemoglobin drops less than 7.0. Physician Review: Patient Assessed, Agree with Above Assessment and Plan
--- NOTE | 2021-07-24 11:18 | P.PN ---
Subjective Date of Service: 07/24/21 Chief Complaint: Decubitus Ulcer Patient seen and examined at bedside, EGD planned for today. Review of Systems 10-point ROS is otherwise unremarkable Physical Examination - Vital Signs Temperature: 97.6 F Blood Pressure: 128/65 Pulse: 108 Respirations: 19 Pulse Ox (%): 98 - Studies Laboratory Last Values WBC 18.4 K/uL (4.3-10.9) H D 07/13/21 10:57 RBC 3.13 M/uL (4.33-5.43) L 07/13/21 10:57 Hgb 9.3 g/dL (13.6-17.9) L 07/13/21 10:57 Hct 28.4 % (39.6-49.0) L 07/13/21 10:57 MCV 90.7 fL (80-100) 07/13/21 10:57 MCH 29.7 pg (27.0-35.0) 07/13/21 10:57 MCHC 32.7 g/dL (32.0-36.0) 07/13/21 10:57 RDW 16.6 % (12.1-15.2) H 07/13/21 10:57 Plt Count 584 K/uL (152-406) H D 07/13/21 10:57 MPV 7.2 fL (7.6-11.3) L 07/13/21 10:57 Neutrophils % 83.5 % (41.7-73.7) H 07/13/21 10:57 Lymphocytes % 8.3 % (15.3-44.8) L 07/13/21 10:57 Monocytes % 6.3 % (3.3-12.3) 07/13/21 10:57 Eosinophils % 1.6 % (0-4.4) 07/13/21 10:57 Basophils % 0.3 % (0-1.3) 07/13/21 10:57 Absolute Neutrophils 15.3 K/uL (1.8-8.0) H 07/13/21 10:57 Segmented Neutrophils 91 % (40-80) H 07/13/21 10:57 Absolute Lymphocytes 1.5 K/uL (0.7-4.9) 07/13/21 10:57 Lymphocytes 3 % (15-42) L 07/13/21 10:57 Monocytes 6 % (0-10) 07/13/21 10:57 Absolute Monocytes 1.2 K/uL (0.1-1.3) 07/13/21 10:57 Absolute Eosinophils 0.3 K/uL (0-0.5) 07/13/21 10:57 Absolute Basophils 0.1 K/uL (0-0.5) 07/13/21 10:57 Platelet Estimate Incr 07/13/21 10:57 Anisocytosis Slight 07/13/21 10:57 Morphology Comment Noted (NOT SEEN) 07/13/21 10:57 PT 12.8 SECONDS (9.5-12.5) H 07/13/21 10:57 INR 1.16 07/13/21 10:57 Sodium 137 mmol/L (136-145) 07/13/21 10:57 Potassium 4.9 mmol/L (3.5-5.1) 07/13/21 10:57 Chloride 104 mmol/L (98-107) 07/13/21 10:57 Carbon Dioxide 28 mmol/L (21-32) 07/13/21 10:57 BUN 28 mg/dL (7-18) H 07/13/21 10:57 Creatinine 0.63 mg/dL (0.55-1.3) 07/13/21 10:57 Estimated GFR > 90 mL/min (=/>90) 07/13/21 10:57 Glucose 169 mg/dL (74-106) H 07/13/21 10:57 Lactic Acid 1.8 mmol/L (0.4-2.0) 07/13/21 10:57 Calcium 9.6 mg/dL (8.5-10.1) 07/13/21 10:57 Magnesium 2.0 mg/dL (1.8-2.4) 07/13/21 10:57 Total Bilirubin 0.3 mg/dL (0.2-1.0) 07/13/21 10:57 Direct Bilirubin < 0.1 mg/dL (0-0.2) 07/13/21 10:57 AST 24 U/L (15-37) 07/13/21 10:57 ALT 45 U/L (12-78) 07/13/21 10:57 Alkaline Phosphatase 100 U/L (45-117) 07/13/21 10:57 Troponin I High Sens 4.2 pg/mL (<58.9) 07/13/21 10:57 Serum Total Protein 6.8 g/dL (6.4-8.2) 07/13/21 10:57 Albumin 1.9 g/dL (3.4-5.0) L 07/13/21 10:57 Globulin 4.9 g/dL (2.3-3.5) H 07/13/21 10:57 Albumin/Globulin Ratio 0.4 (1.1-1.8) L 07/13/21 10:57 Procalcitonin 0.09 ng/mL (<0.050) H 07/13/21 10:57 Urine pH 7.5 (5.0-7.0) H 07/13/21 11:43 Ur Specific Willard 1.020 (1.005-1.030) 07/13/21 11:43 Glucose (UA)(Auto) Negative (Negative) 07/13/21 11:43 Urine Ketones Negative (Negative) 07/13/21 11:43 Urine Blood Negative (Negative) 07/13/21 11:43 Urine Nitrite Negative (Negative) 07/13/21 11:43 Ur Leukocyte Esterase 2+ (Negative) H 07/13/21 11:43 Urine RBC <5 /HPF (NONE SEEN) 07/13/21 11:35 Urine WBC 10-20 /HPF (<5) H 07/13/21 11:35 Ur Squamous Epith Cells 5-10 /HPF (NONE SEEN) H 07/13/21 11:35 Calcium Oxalate Crystal Few (NONE SEEN) 07/13/21 11:35 Amorphous Sediment 3+ /HPF (NONE SEEN) H 07/13/21 11:35 Urine Bacteria <20 /HPF (NONE SEEN) 07/13/21 11:35 Urine Culture Reflexed Reflexed 07/13/21 11:35 Urine Total Protein Negative (Negative) 07/13/21 11:43 Influenza Type A RNA Negative (NEGATIVE) 07/13/21 11:30 Influenza Type B RNA Negative (NEGATIVE) 07/13/21 11:30 SARS-CoV-2 RNA (RT-PCR) Negative (NEGATIVE) 07/13/21 11:30 Medications List Reviewed: Yes Assessment And Plan - Plan Physical Exam: General: Oriented x1, Cachectic HEENT: Atraumatic Neck: JVD not distended Respiratory: Clear to auscultation bilaterally, Normal air movement Cardiovascular: Regular rate/rhythm Gastrointestinal: Normal bowel sounds, Soft and benign, Other (PEG tube) Musculoskeletal: Contractures Integumentary: Other (Sacral stage IV wound, left heel stage II wound, left hip wound) Urinary: Fragoso catheter Conclusions/Impression: Antibiotics Ceftazidime: 07/24-current Vancomycin: urrent Cefepime: Assessment/plan Recurrent complicated gram-positive bacteremia Blood cultures obtained on 07/13 grew staph hemolyticus and Enterococcus faecalis. -Repeat cultures: 07/15: No growth 07/16:CoNS in 04/12 07/20: No growth 07/23: Pending -This is patient's second hospitalization within 1 month secondary to gram-positive bacteremia. As such recommend treating patient with IV vancomycin for 4 to 6 weeks. Source of infection likely one of his many decubitus ulcerations. However cannot rule out endocarditis. Recommend obtaining transesophageal echocardiogram. Also recommend ordering MRI of pelvis to rule out sacral osteomyelitis Stage IV decubitus ulceration Has had several wound debridements this year, most recent was 07/15 Wound culture growing Pseudomonas and stenotrophomonas maltophilia. -Continue wound care per surgical team. Continue current IV antibiotics Avoid direct pressure and offload wounds Left heel stage II wound Continue current wound care. Avoid direct pressure and offload. Left hip unstageable decubitus ulcer Continue current wound care. Avoid direct pressure and offload GI bleed Nurse noted blood-tinged residual feedings on 07/22. Gastric Aspirate with positive occult blood findings. Tube feeds held, plan for EGD today. Patient was last fed on 07/22 at 6:30 PM. Continue proton pump inhibitor and blood transfusions as needed. Protein caloric malnutrition: Severe Continue to monitor closely. PEG tube feedings being held at this time. Anemia Likely related to wounds/GI bleed. Continue to monitor H&H Prognosis poor Recommend transferring to [place] for long-term care Plan of care discussed with Dr. Manuel Thank you for consultation Physician Review: Patient Assessed, Agree with Above Assessment and Plan
[2021-07-24 11:26] LABS: Hematocrit 22.5 % (39.6-49.0)
[2021-07-24] MEDS ORDERED: D10W 250 ML IV ONE (12:19)
[2021-07-24] MEDS ORDERED: EPINEPHRINE/PF 1 MG/ML AMP ONE (13:12)
[2021-07-24] MEDS ORDERED: LIDOCAINE 1% MPF 5 ML VIAL ONE (13:21)
[2021-07-24] MEDS ORDERED: propofoL 200 MG/20 ML VIAL IV ONE (13:21)
--- NOTE | 2021-07-24 14:28 | P.PN ---
Subjective Date of Service: 07/24/21 Chief Complaint: Decubitus Ulcer Subjective: No new changes Physical Examination - Vital Signs Temperature: 97.4 F Blood Pressure: 125/66 Pulse: 109 Respirations: 20 Pulse Ox (%): 98 - Studies Medications List Reviewed: Yes Assessment And Plan - Current Problems (Diagnosis) (1) Broca's aphasia Current Visit: Yes Status: Acute (2) Sacral decubitus ulcer, stage III Current Visit: Yes Status: Acute (3) BPH (benign prostatic hyperplasia) Current Visit: Yes Status: Chronic Qualifiers: Lower urinary tract symptom presence: symptoms absent Qualified Code(s): N40.0 - Benign prostatic hyperplasia without lower urinary tract symptoms (4) Gastrostomy tube dependent Current Visit: Yes Status: Chronic (5) HLD (hyperlipidemia) Current Visit: Yes Status: Chronic Qualifiers: Hyperlipidemia type: mixed hyperlipidemia Qualified Code(s): E78.2 - Mixed hyperlipidemia Physician Review: Patient Assessed, Agree with Above Assessment and Plan Physician Review Additional Text: 07/23/21 07:05 Elerly male , obtunded , non verbal GENEVA , EOMI SIS2, RRR Good air entry b/l , no creps full abd , soft , BS+ , PEG + no pedal edema , b/l , no CT drowsy , + right hemiparesis IMPRESSION Hyperkalemia -likely due to supplementation-resolved UTI CVA DM 2 HTN HLD Sacral Ulcer Sepsis PLAN - low k now - will replete with kcl - rising sodium from Lasix use -change NS to 1/NS with kcl -continue to optimize BP follow peg tube and sacral decub mgt -follow workup for yaritza neg bacteremia
[2021-07-24] MEDS: NACHLORIDE 0.45% 1,000 ML with POTASSIUM CL 10 MEQ IV SCH ×2 (15:05)
[2021-07-24] MEDS ORDERED: CEFTAZIDIME 2 GM/VIAL IV SCH (17:00)
[2021-07-24] MEDS ORDERED: VANCOMYCIN 1.75 GM in NA CHLORIDE 0.9% 500 ML IVPB SCH (17:00)
[2021-07-24] MEDS: CEFTAZIDIME 2 GM in NA CHLORIDE 0.9% 100 ML IV SCH (17:11)
[2021-07-24 19:42] LABS: Hematocrit 21.5 % (39.6-49.0)
[2021-07-25] MEDS: CEFTAZIDIME 2 GM in NA CHLORIDE 0.9% 100 ML IV SCH ×2 (00:25→09:18)
[2021-07-25] MEDS: NACHLORIDE 0.45% 1,000 ML with POTASSIUM CL 10 MEQ IV SCH ×2 (04:19)
[2021-07-25 05:05] LABS: Absolute Lymphocytes (CBC) 1.3 K/uL (0.7-4.9); Hematocrit 22.4 % (39.6-49.0); Lymphocytes % 9.3 % (15.3-44.8); MPV 7.8 fL (7.6-11.3); RBC Red Blood Cell Count 2.52 M/uL (4.33-5.43)
[2021-07-25 05:44] LABS: ALT/SGPT 44 U/L (12-78); AST/SGOT 33 U/L (15-37); Albumin 1.7 g/dL (3.4-5.0); Alkaline Phosphatase 78 U/L (45-117); BUN Blood Urea Nitrogen 16 mg/dL (7-18); Bicarbonate 24 mmol/L (21-32); Bilirubin Total 0.4 mg/dL (0.2-1.0); Glomerular Filtration Rate > 90 mL/min (=/>90); Glucose Level 88 mg/dL (74-106); Protein, Total 5.3 g/dL (6.4-8.2); Sodium Level 141 mmol/L (136-145)
[2021-07-25] MEDS: GLUCERNA 1.5 CAL 1,000 ML BOT FT SCH ×2 (07:07→11:00)
[2021-07-25] MEDS: TAMSULOSIN 0.4 MG SR CAP FT SCH ×2 (07:07→21:00)
[2021-07-25] MEDS: JUVEN PACKET FT SCH ×2 (07:08→20:18)
[2021-07-25] MEDS: POTASSIUM 25 MEQ EFFERV TAB FT SCH ×2 (07:08→20:18)
--- NOTE | 2021-07-25 07:31 | P.PN ---
Subjective Date of Service: 07/25/21 Chief Complaint: Decubitus Ulcer Subjective: No new changes (EGD done yesterday revealed multiple issues.) Physical Examination - Vital Signs Temperature: 97 F Blood Pressure: 145/71 Pulse: 102 Respirations: 23 Pulse Ox (%): 99 - Physical Exam General: Delirious HEENT: Atraumatic, Normocephalic Neck: Supple Respiratory: Normal air movement Cardiovascular: Regular rate/rhythm, Normal S1 S2 Gastrointestinal: Soft and benign - Studies Medications List Reviewed: Yes Assessment And Plan - Plan UTI CVA DM 2 HTN HLD Sacral Ulcer Sepsis Anemia-deemed due to GI bleed. Plan: Had EGD done yesterday. esophageal mass concerning for malingancy found. Also AV malformation noted and clipped. Family agreed to hospice care in view of multiple medical issues and futility of care. Plans in pipeline. Discharge Plan: Other (Hospice.) Physician Review: Patient Assessed, Agree with Above Assessment and Plan
[2021-07-25] MEDS: PANTOPRAZOLE 40 MG INJ IVP SCH (09:18)
[2021-07-25] MEDS: COLLAGENASE 30 GM OINTMENT TOP SCH (09:18)
[2021-07-25] MEDS: SODIUM HYPOCHLORITE 0.25% 473 ML TOP SCH (09:18)
--- NOTE | 2021-07-25 10:11 | P.PN ---
Subjective Date of Service: 07/25/21 Chief Complaint: Decubitus Ulcer Subjective: Improving (Patient is doing well hemodynamically stable) Review of Systems is unable to be obtained Physical Examination - Vital Signs Temperature: 97.9 F Blood Pressure: 144/71 Pulse: 107 Respirations: 20 Pulse Ox (%): 97 - Physical Exam General: Alert, Unresponsive Respiratory: Clear to auscultation bilaterally, Diminished - Studies Medications List Reviewed: Yes Assessment And Plan - Current Problems (Diagnosis) (1) Anemia Current Visit: Yes Status: Acute Plan: Severe anemia s/p EGD presumed cancer as per Dr. Gonzalez also had an AV malformation that was injected Qualifiers: Anemia type: unspecified type Qualified Code(s): D64.9 - Anemia, unspecified (2) Sacral decubitus ulcer, stage III Current Visit: Yes Status: Acute Plan: Multiple decubitus ulcers family members elected for hospice care resume tube feeds and PEG antibiotic changed to doxycycline levels levofloxacin by the PEG tube mildly anemic patient is on potassium multiple organisms plan to DC the antibiotics for now comfort care only Physician Review: Patient Assessed, Agree with Above Assessment and Plan
[2021-07-25] MEDS ORDERED: GLUCERNA 1.5 CAL 1,000 ML BOT FT SCH (11:00)
--- NOTE | 2021-07-25 13:34 | P.PN ---
Subjective Date of Service: 07/25/21 Chief Complaint: Decubitus Ulcer Subjective: New changes (plan for comfort care only now) Physical Examination - Vital Signs Temperature: 98.6 F Blood Pressure: 147/69 Pulse: 99 Respirations: 17 Pulse Ox (%): 98 - Studies Medications List Reviewed: Yes Assessment And Plan - Current Problems (Diagnosis) (1) Broca's aphasia Current Visit: Yes Status: Acute (2) Sacral decubitus ulcer, stage III Current Visit: Yes Status: Acute (3) BPH (benign prostatic hyperplasia) Current Visit: Yes Status: Chronic Qualifiers: Lower urinary tract symptom presence: symptoms absent Qualified Code(s): N40.0 - Benign prostatic hyperplasia without lower urinary tract symptoms (4) Gastrostomy tube dependent Current Visit: Yes Status: Chronic (5) HLD (hyperlipidemia) Current Visit: Yes Status: Chronic Qualifiers: Hyperlipidemia type: mixed hyperlipidemia Qualified Code(s): E78.2 - Mixed hyperlipidemia Physician Review: Patient Assessed, Agree with Above Assessment and Plan Physician Review Additional Text: 07/23/21 07:05 Elerly male , obtunded , non verbal GENEVA , EOMI SIS2, RRR Good air entry b/l , no creps full abd , soft , BS+ , PEG + no pedal edema , b/l , no CT drowsy , + right hemiparesis IMPRESSION Hyperkalemia -likely due to supplementation-resolved UTI CVA DM 2 HTN HLD Sacral Ulcer Sepsis PLAN - no comfort care only will sign off now , pls can reconsult prn 07/25/21 13:34
[2021-07-25] MEDS: PANTOPRAZOLE 40MG TABLET PO SCH (16:22)
[2021-07-25] MEDS ORDERED: DOXYCYCLINE 100 MG CAP PO SCH (21:00)
[2021-07-26 05:09] LABS: ALT/SGPT 35 U/L (12-78); AST/SGOT 25 U/L (15-37); Albumin 1.8 g/dL (3.4-5.0); Alkaline Phosphatase 96 U/L (45-117); BUN Blood Urea Nitrogen 14 mg/dL (7-18); Bicarbonate 26 mmol/L (21-32); Bilirubin Total 0.5 mg/dL (0.2-1.0); Glomerular Filtration Rate > 90 mL/min (=/>90); Glucose Level 108 mg/dL (74-106); Potassium 3.4 mmol/L (3.5-5.1); Protein, Total 5.9 g/dL (6.4-8.2); Sodium Level 139 mmol/L (136-145)
[2021-07-26] MEDS: PANTOPRAZOLE 40MG TABLET PO SCH (07:30)
--- NOTE | 2021-07-26 07:35 | P.PN ---
Subjective Date of Service: 07/26/21 Chief Complaint: Decubitus Ulcer Subjective: No new changes Physical Examination - Vital Signs Temperature: 98 F Blood Pressure: 127/66 Pulse: 114 Respirations: 21 Pulse Ox (%): 95 - Physical Exam General: Delirious HEENT: Atraumatic, Normocephalic Neck: Supple Respiratory: Normal air movement Cardiovascular: Regular rate/rhythm, Normal S1 S2 Gastrointestinal: Soft and benign - Studies Medications List Reviewed: Yes Assessment And Plan - Plan UTI CVA DM 2 HTN HLD Sacral Ulcer Sepsis Anemia-deemed due to GI bleed. Plan: Had EGD done yesterday. esophageal mass concerning for malignancy found. 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 Family agreed to hospice care in view of multiple medical issues and futility of care. Plans in pipeline. Pt to be downgraded to regular med/surg floor in prep for hospice placement. Physician Review: Patient Assessed, Agree with Above Assessment and Plan
[2021-07-26] MEDS: Pantoprazole (granules) 40 MG/BLIST PACKET FT SCH ×2 (08:59→16:30)
[2021-07-26] MEDS: SODIUM HYPOCHLORITE 0.25% 473 ML TOP SCH (08:59)
[2021-07-26] MEDS: COLLAGENASE 30 GM OINTMENT TOP SCH (08:59)
[2021-07-26] MEDS ORDERED: levoFLOXacin 750 MG TAB PO SCH (09:00)
[2021-07-26] MEDS: POTASSIUM 25 MEQ EFFERV TAB FT SCH ×2 (09:00→20:37)
[2021-07-26] MEDS: TAMSULOSIN 0.4 MG SR CAP FT SCH ×2 (09:00→20:37)
[2021-07-26] MEDS: JUVEN PACKET FT SCH ×2 (09:02→20:37)
[2021-07-26 20:52] VITALS: O2SAT 97
[2021-07-27] MEDS: POTASSIUM 25 MEQ EFFERV TAB FT SCH (08:23)
[2021-07-27] MEDS: COLLAGENASE 30 GM OINTMENT TOP SCH (08:23)
[2021-07-27] MEDS: Pantoprazole (granules) 40 MG/BLIST PACKET FT SCH (08:23)
[2021-07-27] MEDS: TAMSULOSIN 0.4 MG SR CAP FT SCH (08:24)
[2021-07-27] MEDS: SODIUM HYPOCHLORITE 0.25% 473 ML TOP SCH (08:24)
[2021-07-27] MEDS: JUVEN PACKET FT SCH (08:24)
[2021-07-27 14:43] VITALS: TEMP 98.5
[2021-07-27 16:33] VITALS: BP 147/89
--- NOTE | 2021-08-17 03:02 | P.DS ---
Discharge Date: 07/27/21 Disposition: HOSPICE-MEDICAL FACILITY Discharge Condition: GOOD Reason for Admission: Decubitus Ulcer Consultations: General surgery - Problems (1) Sacral decubitus ulcer, stage III Status: Acute (2) Broca's aphasia Status: Acute (3) Gastrostomy tube dependent Status: Chronic (4) HLD (hyperlipidemia) Status: Chronic Qualifiers: Hyperlipidemia type: mixed hyperlipidemia Qualified Code(s): E78.2 - Mixed hyperlipidemia (5) T2DM (type 2 diabetes mellitus) Status: Chronic Qualifiers: Diabetes mellitus mcfp insulin use: without intermediate designer use Diabetes mellitus complication status: with skin complications Diabetes mellitus complication detail: with other skin ulcer Qualified Code(s): E11.622 - Type 2 diabetes mellitus with other skin ulcer (6) CVA (cerebral vascular accident) Status: Chronic Qualifiers: (7) GERD (gastroesophageal reflux disease) Status: Chronic Qualifiers: Esophagitis presence: esophagitis presence not specified Qualified Code(s): K21.9 - Gastro-esophageal reflux disease without esophagitis (8) HTN (hypertension) Status: Chronic Qualifiers: Brief History of Present Illness: Patient is a 65-year-old male with past medical history of chronic decubitus ulcer, Hypertension, BPH, hyperlipidemia and stroke with right-sided hemiparesis who presented to the ED for presumed wound infection. Patient is aphasic and oriented x1 and history is difficult to be obtained. He was tachycardic and tachypneic on presentation with a temperature of 99.9 rectally. Labs significant for WBC 18.4, pro-Mendel 0.09, urine positive for leukocyte esterase and white blood cells. Patient was recently discharged from hospital. Family has been contacted. Dr. Cooper is consulting. Will admit patient for further treatment of infection. Hospital Course: Patient had debridement performed. Patient is on IV antibiotic therapy. Patient's wounds are healing slowly. Continue with pressure ulcer treatment. Patient is clinically doing much better; however, patient's family has decided that patient is suffering and they do not want any further aggressive care. At this time, we will arrange for hospice. Vital Signs/Physical Exam: Temp Pulse Resp BP Pulse Ox 98.5 F 114 H 20 147/89 H 96 07/27/21 08:00 07/27/21 15:00 07/27/21 15:00 07/27/21 15:00 07/27/21 15:00 General: Alert, Other (aphasic) Integumentary: Pressure ulcer Laboratory Data at Discharge: WBC 13.9 K/uL (4.3-10.9) H D 07/25/21 04:15 Hgb Cancelled 07/25/21 13:00 Hct Cancelled 07/25/21 13:00 Plt Count 301 K/uL (152-406) 07/25/21 04:15 PT 13.3 SECONDS (9.5-12.5) H 07/16/21 17:34 INR 1.20 07/16/21 17:34 Sodium 139 mmol/L (136-145) 07/26/21 04:25 Potassium 3.4 mmol/L (3.5-5.1) L 07/26/21 04:25 BUN 14 mg/dL (7-18) 07/26/21 04:25 Creatinine 0.40 mg/dL (0.55-1.3) L 07/26/21 04:25 Glucose 108 mg/dL (74-106) H 07/26/21 04:25 Phosphorus 3.4 mg/dL (2.5-4.9) 07/19/21 05:00 Magnesium 1.8 mg/dL (1.8-2.4) 07/19/21 05:00 Total Bilirubin 0.5 mg/dL (0.2-1.0) 07/26/21 04:25 AST 25 U/L (15-37) 07/26/21 04:25 ALT 35 U/L (12-78) 07/26/21 04:25 Alkaline Phosphatase 96 U/L (45-117) 07/26/21 04:25 Home Medications: Amlodipine [Norvasc*] 1 tab FT DAILY 05/17/21 Atorvastatin Calcium [Lipitor] 1 tab FT BEDTIME 05/17/21 Carvedilol [Coreg] 40 tab FT BID 05/17/21 Polyethylene Glycol 3350 [Miralax] 1 packet FT DAILY PRN 05/17/21 Potassium Chloride 15 ml FT BID 05/17/21 Tamsulosin HCl [Flomax] 1 cap FT BID 05/17/21 modafiniL [Provigil*] 1 tab FT DAILY 05/17/21 Lactose-Free Food [Jevity*] 237 ml FT Q4H 06/25/21 Metformin ER [Glucophage ER*] 500 mg FT DAILY 06/25/21 Codeine/APAP [Tylenol W/Codeine Elixir*] 5 ml FT Q4H PRN #100 ml 07/20/21 Collagenase [Santyl Ointment*] 1 appl TOP DAILY #1 tube 07/20/21 Glucerna 1.5 Mendel 237 ml FT 5XD #120 bot 07/20/21 New Medications: Glucerna 1.5 Mendel 237 ml FT 5XD #120 bot Collagenase [Santyl Ointment*] 1 appl TOP DAILY #1 tube Codeine/APAP [Tylenol W/Codeine Elixir*] 5 ml FT Q4H PRN #100 ml PRN Reason: Pain Scale 5-7 (Moderate) Physician Discharge Instructions: Proceed with hospice care Diet: AHA Activity: Fall precautions Followup: NONE,NONE [Primary Care Provider] - Time spent managing pt's care (in minutes): 35
== END 2021-07-27 16:10 | disposition hospice, inpatient (51) | DRG 853 ==
LOC: ER 10:34 → ERHOLD 22:15 → 4TH 07-14 08:24 → 2ND 07-17 14:35 → 3RD-ICU 07-22 14:26
PROVIDERS: ADMIT Hospitalist; ATTEND Hospitalist
PROC: 0JB70ZZ Excision of Back Subcutaneous Tissue and Fascia, Open Approach (ICD-10-PCS; 2021-07-15)
PROC: 30233N1 Transfusion of Nonautologous Red Blood Cells into Peripheral Vein, Percutaneous Approach (ICD-10-PCS; 2021-07-16)
PROC: 02HV33Z Insertion of Infusion Device into Superior Vena Cava, Percutaneous Approach (ICD-10-PCS; 2021-07-22)
PROC: 3E04329 Introduction of Other Anti-infective into Central Vein, Percutaneous Approach (ICD-10-PCS; 2021-07-22)
PROC: 0DB68ZX Excision of Stomach, Via Natural or Artificial Opening Endoscopic, Diagnostic (ICD-10-PCS; 2021-07-24)
PROC: 3E0G8GC Introduction of Other Therapeutic Substance into Upper GI, Via Natural or Artificial Opening Endoscopic (ICD-10-PCS; 2021-07-24)
PROC: 0DB48ZX Excision of Esophagogastric Junction, Via Natural or Artificial Opening Endoscopic, Diagnostic (ICD-10-PCS; principal; 2021-07-24 13:30)
DX: A41.1 Sepsis due to other specified staphylococcus (principal); L89.153 Pressure ulcer of sacral region, stage 3; R65.21 Severe sepsis with septic shock; E43 Unspecified severe protein-calorie malnutrition; K31.811 Angiodysplasia of stomach and duodenum with bleeding; N39.0 Urinary tract infection, site not specified; I69.351 Hemiplegia and hemiparesis following cerebral infarction affecting right dominant side; D62 Acute posthemorrhagic anemia; R64 Cachexia; I96 Gangrene, not elsewhere classified; Z16.24 Resistance to multiple antibiotics; A41.81 Sepsis due to Enterococcus; Z68.20 Body mass index [BMI] 20.0-20.9, adult; E78.2 Mixed hyperlipidemia; Z93.1 Gastrostomy status; I10 Essential (primary) hypertension; I69.320 Aphasia following cerebral infarction; N40.0 Benign prostatic hyperplasia without lower urinary tract symptoms; K21.9 Gastro-esophageal reflux disease without esophagitis; E87.5 Hyperkalemia; K22.9 Disease of esophagus, unspecified; K44.9 Diaphragmatic hernia without obstruction or gangrene; L08.89 Other specified local infections of the skin and subcutaneous tissue; B96.5 Pseudomonas (aeruginosa) (mallei) (pseudomallei) as the cause of diseases classified elsewhere; B96.89 Other specified bacterial agents as the cause of diseases classified elsewhere; L89.220 Pressure ulcer of left hip, unstageable; L89.622 Pressure ulcer of left heel, stage 2; E11.621 Type 2 diabetes mellitus with foot ulcer; Z20.822 Contact with and (suspected) exposure to COVID-19; R62.7 Adult failure to thrive; Z66 Do not resuscitate
CPT/HCPCS: 0240U; 36415; 36430; 71045; 71250; 74176; 80048; 80053; 80076; 80202; 81003; 81015; 82271; 82274; 82607; 82746; 82805; 82947; 83540; 83605; 83615; 83735; 83880; 83986; 84100; 84145; 84484; 85014; 85018; 85025; 85027; 85044; 85610; 85652; 86140; 86850; 86900; 86901; 87040; 87070; 87077; 87086; 87088; 87176; 87186; 87205; 88304; 88305; 88312; 93005; 93931; 93971; 96365; 96366; 96367; 96368; 99251; 99284; C9113; J0171; J0330; J0610; J0692; J0713; J1650; J1720; J1815; J2250; J2370; J2405; J2704; J2916; J3010; J3370; J3480; J3590; J7030; J7040; J7050; J7060; P9016; P9047